=== PATIENT | female | born 1975 | race Caucasian/White ===

== ENCOUNTER 2018-02-10 19:42 | Emergency (ER) | payer MEDICAID, SELFPAY ==
[2018-02-10 19:42] VITALS: BP 124/97; PULSE 90; RESP 15; TEMP 36.6; BMI 44.6
--- NOTE | 2018-02-10 21:09 | CT_ITS ---
CT Abdomen And Pelvis W/O Contrast INDICATION: RT FLANK PAIN X 2 WEEKSHX:HTN,HYPOTHYROID,HYSTERECTOMY COMPARISON: None TECHNIQUE: Noncontrast axial CT examination of the abdomen and pelvis with coronal and sagittal reformatted images. Radiation dose optimization technique applied. FINDINGS: A 6 mm calcified granuloma is noted at the right lung base. Lung bases are otherwise clear. The heart size is normal. The liver is diffusely low in density compatible with fatty infiltration. The liver measures 18 cm in craniocaudal dimension. The gallbladder is nondistended. The spleen contains multiple calcified granulomas compatible with prior granulomatous disease. The kidneys are without evidence of nephrolithiasis or hydronephrosis. The bowel loops are nondistended. The appendix is unremarkable. The urinary bladder is decompressed. There is no evidence of free air or free fluid. The osseous structures demonstrate early degenerative changes. CT/Abdomen/Pelvis without Cont IMPRESSION: Diffuse fatty infiltration of the liver. Evidence of prior granulomatous disease. No evidence of urolithiasis or hydronephrosis. Normal appendix. at 2235 Reported and signed by: Shantal Tran MD Electronically Signed: Shantal Tran MD at 22:34 EDT Tel , Service support ,
[2018-02-10 21:36] LABS: Mucous, Urine 0 SEEN /hpf (<or=2+); Red Blood Cells-Urine 0 SEEN /hpf (0-5); Squamous Epithelial Cells - UA 0 SEEN /hpf (5-10)
[2018-02-10 21:37] LABS: Color, Urine Yellow (Yellow); Glucose, Dipstick Normal (Normal); Ketone-Dipstick Negative (Negative); Leukocyte Esterase-Dipstick 500 /ul (Negative); Nitrite-Dipstick Negative (Negative); Occult Blood-Urine 10 /ul (Negative); Protein-Dipstick 15 mg/dl (Negative); Specific Gravity, Urine 1.025 (1.002-1.030); Urine Bilirubin Dipstick Negative (Negative); Urine Clarity Sl. Cloudy (Clear); Urine Urobilinogen Normal (Normal)
[2018-02-10] MEDS: Ketorolac 30 MG/ML Syringe IV (21:39)
[2018-02-10] MEDS: 0.9% Normal Saline 1,000 ML 125 ML IV (21:39)
[2018-02-10] MEDS: Morphine 4 MG/ML Syringe IV (21:40)
[2018-02-10 21:44] LABS: Bacteria 1+ /hpf (None Seen); White Blood Cells 0-5 SEEN /hpf (0-5)
[2018-02-10 21:49] LABS: Absolute Lymphocyte Count 3.52 X10^3/ul (0.83-4.51); Absolute Neutrophil Count 7.1 X10^3/uL (2.0-7.7); Basophil# 0.02 X10^3/uL; Basophil% 0.2 % (0-1); Eosinophil# 0.18 X10^3/uL; Eosinophils% 1.5 % (0-5); Hematocrit 38.1 % (37-47); Hemoglobin 12.2 g/dl (12.0-15.0); Lymphocyte # 3.52 X10^3/ul (4.0); Lymphocyte % 30.3 % (19-41); Mean Corpuscular Volume 93.6 fL (81-99); Mean Platelet Vol. 9.9 fl (6.2-12.0); Monocyte# 0.75 X10^3/uL; Monocyte% 6.5 % (0-10); Neutrophil # 7.11 X10^3/uL (2.7-7.7); Neutrophil % 61.2 % (47-70); Platelet Count 338 K/mm3 (150-450); RBC Distribution Width CV 13.4 % (11.6-14.6); RBC Distribution Width SD 45.8 fl (35.1-43.9); Red Blood Count 4.07 M/mm3 (4.2-5.4); White Blood Count 11.6 K/mm3 (4.4-11.0)
[2018-02-10] MEDS: Ondansetron 4 MG/2 ML Vial IV (21:49)
[2018-02-10 21:50] VITALS: BP 120/74; PULSE 72; RESP 16; O2SAT 96
[2018-02-10 21:50] LABS: POSITIVE COUNT NO; POSITIVE DIFFERENTIAL NO; POSITIVE MORPHOLOGY NO
[2018-02-10 22:12] LABS: ALB/GLOB Ratio 0.8 RATIO (0.9-2.4); AST(SGOT) 37 U/L (15-37); Alanine Aminotransfer ALT/SGPT 40 U/L (13-56); Albumin, Serum 3.4 g/dL (3.2-5.0); Alkaline Phosphatase 65 U/L (45-117); Anion Gap 8 (5-15); BUN 16 mg/dL (7-18); BUN/Creat Ratio 12.1 RATIO (10-20); Calcium,Total 8.9 mg/dL (8.5-10.1); Chloride 103 mmol/L (98-107); Creatinine, Serum 1.32 mg/dL (0.55-1.02); EST Glomerular Filtration Rate 47 mL/min (>60); Est Glom Filt Rate - Afr Amer 57 mL/min (>60); Estimated Creatinine Clearance 42.75 ml/min; Globulin 4.5 g/dL (2.2-4.2); Glucose 95 mg/dL (74-106); Potassium 4.1 mmol/L (3.5-5.1); Protein, Total 7.9 g/dL (6.4-8.2); Sodium Level 139 mmol/L (136-145)
--- NOTE | 2018-02-10 23:15 | ED.VISSUMM ---
- ER Visit Summary Date of Service: 02/10/18 Chief Complaint: [Back pain ] History of Present Illness: The patient is a 42 F [back pain ?2 weeks. Patient states that it has been continuous and mostly right-sided over the area of her kidney. Patient rates her pain a 10 out of 10. Patient states that she was seen by her primary care physician for this but nothing was done about it. Patient does describe some mild dysuria at times. Food does not affect her pain at all. Patient has not had any injury to her back. Patient has not had any fevers. Patient denies cough. She denies recent travel or surgery. Patient denies any significant abdominal pain, nausea, vomiting, or diarrhea.] Physical Examination: [HEENT-PERRLA, EOMI. Cranial nerves II through XII grossly intact. TMs clear. Mucous membranes moist. No adenopathy. Cardiovascular-regular rate and rhythm without murmur or ectopy Lungs-clear to auscultation, chest wall stable without crepitus or subcu emphysema Abdomen-normoactive bowel sounds, soft, nontender, no rebound or rigidity, no peritoneal signs. Extremities-intact ?4, normal range of motion, normal pulses, atraumatic] Test Results: [CBC with differential obtained showed a slightly elevated white blood cell count of 11.6, hemoglobin 12, hematocrit 38, platelets 338. Chemistries unremarkable. Liver enzymes were normal. Urinalysis was positive for 500 leukocyte esterase 0-5 WBCs and +1 bacteria. Urine culture was sent. CT scan of the abdomen pelvis showed essentially nothing acute.] Emergency Department Course and Treatment: [Patient was medicated with morphine, Zofran, and Toradol. Patient was given a dose of Bactrim in the emergency department.] Treatment Plan: [Patient will be treated with Bactrim for 3 days and [place] for pain]. At this point the etiology of her back/flank pain is unclear. Patient really does not have any PE risk factors and the pain is not pleuritic therefore clinically my suspicion is that her symptoms are not due to PE. Disposition: [Discharged home in stable condition. Patient advised to follow-up with her primary care physician in 3-5 days.] Impression: [Back pain-etiology uncertain.] This note was generated with [employer] software. It may contain incorrect words, spelling, and punctuation that were not noted in review of the chart prior to signing ED Disposition - Plan for ED Patient: Chief Complaint: Flank Pain Referrals: Carlos Chris Chi, MD [Primary Care Provider] -
--- NOTE | 2018-02-10 23:18 | ED.DCSUM_ITS ---
- ER Visit Summary Date of Service: 02/10/18 Chief Complaint: [Back pain ] History of Present Illness: The patient is a 42 F [back pain ?2 weeks. Patient states that it has been continuous and mostly right-sided over the area of her kidney. Patient rates her pain a 10 out of 10. Patient states that she was seen by her primary care physician for this but nothing was done about it. Patient does describe some mild dysuria at times. Food does not affect her pain at all. Patient has not had any injury to her back. Patient has not had any fevers. Patient denies cough. She denies recent travel or surgery. Patient denies any significant abdominal pain, nausea, vomiting, or diarrhea.] Physical Examination: [HEENT-PERRLA, EOMI. Cranial nerves II through XII grossly intact. TMs clear. Mucous membranes moist. No adenopathy. Cardiovascular-regular rate and rhythm without murmur or ectopy Lungs-clear to auscultation, chest wall stable without crepitus or subcu emphysema Abdomen-normoactive bowel sounds, soft, nontender, no rebound or rigidity, no peritoneal signs. Extremities-intact ?4, normal range of motion, normal pulses, atraumatic] Test Results: [CBC with differential obtained showed a slightly elevated white blood cell count of 11.6, hemoglobin 12, hematocrit 38, platelets 338. Chemistries unremarkable. Liver enzymes were normal. Urinalysis was positive for 500 leukocyte esterase 0-5 WBCs and +1 bacteria. Urine culture was sent. CT scan of the abdomen pelvis showed essentially nothing acute.] Emergency Department Course and Treatment: [Patient was medicated with morphine , Zofran, and Toradol. Patient was given a dose of Bactrim in the emergency department.] Treatment Plan: [Patient will be treated with Bactrim for 3 days and [place] for pain]. At this point the etiology of her back/flank pain is unclear. Patient really does not have any PE risk factors and the pain is not pleuritic therefore clinically my suspicion is that her symptoms are not due to PE. Disposition: [Discharged home in stable condition. Patient advised to follow- up with her primary care physician in 3-5 days.] Impression: [Back pain-etiology uncertain.] This note was generated with [employer] software. It may contain incorrect words, spelling, and punctuation that were not noted in review of the chart prior to signing ED Disposition - Plan for ED Patient: Chief Complaint: Flank Pain Referrals: Carlos Chris Chi, MD [Primary Care Provider] -
--- NOTE | 2018-02-10 23:19 | DCINST.ED_ITS ---
ED Disposition - Plan for ED Patient: Chief Complaint: Flank Pain Instructions: ED Flank Pain Uncertain Cause Prescriptions: Hydrocodone/Acetaminophen [[place] 5-325 Tablet] 1 - 2 ea PO 4X/DAY PRN PRN 5 Days #20 tab PRN Reason: Pain Smz/Tmp Ds [Bactrim Ds] 1 tab PO BID #6 tab Referrals: Carlos Chris Chi, MD [Primary Care Provider] - 3-5 Days
[2018-02-10] MEDS: Smz/Tmp Ds Tablet 1 TABLET PO (23:32)
[2018-02-10] MEDS: HYDROcodone Bitartrate/Apap 5/325 Tablet PO (23:32)
[2018-02-10 23:34] VITALS: BP 120/69; PULSE 75; RESP 16; O2SAT 98
== END 2018-02-10 23:52 | disposition home or self-care (01) ==
LOC: ED 21:13
PROVIDERS: Emergency Provider Emergency Medicine; Family Provider Family Medicine Geriatric Medicine; PCP Family Medicine Geriatric Medicine
DX: M54.9 Dorsalgia, unspecified (principal); R30.0 Dysuria; I10 Essential (primary) hypertension; E03.9 Hypothyroidism, unspecified; Z90.710 Acquired absence of both cervix and uterus; Z79.899 Other long term (current) drug therapy
CPT/HCPCS: 74176; 80053; 81001; 85025; 87086; 87088; 96361; 96374; 96375; 99285; J7030; A4216

== ENCOUNTER 2018-06-04 09:02 | Emergency (ER) | payer MEDICAID, SELFPAY ==
[2018-06-04 09:04] VITALS: BP 145/94; PULSE 78; RESP 14; TEMP 36.9; O2SAT 97; BMI 42.8
--- NOTE | 2018-06-04 09:17 | ED.VISSUMM ---
- ER Visit Summary Date of Service: 06/04/18 Chief Complaint: Left upper eyelid swelling History of Present Illness: The patient is a 42 F who presents with left upper eyelid swelling that began this morning when she woke up. Patient denies any trauma or injury to the eye. Patient just noted some swelling and mild redness to her upper eyelid when she woke up today. Patient denies any foreign body sensation. Patient denies any pain with movement of her eyes. Patient denies any discharge, matting, crusting, or drainage. Patient denies any photophobia. Patient denies any visual changes. Patient denies any fevers or chills. Patient denies any other symptoms. Physical Examination: Vital signs are stable. Patient is afebrile. Patient is in no acute distress. Pupils are equal, round, and reactive to light bilaterally. Extraocular muscles are intact. There is no pain with extraocular movements. There is edema and mild erythema of the left upper eyelid. There is no foreign body noted. The left lower eyelid is normal. I do not see a hordeolum, however, I was unable to completely mariana the upper eyelid due to the swelling. Funduscopic examination was benign. Anterior chamber was clear. There is no hyphema. Neck is supple. Trachea is midline. There is no JVD noted. There is no lymphadenopathy noted. The remaining physical exam is within normal limits. Emergency Department Course and Treatment: Patient was given a prescription for Keflex. Patient was instructed to follow-up with her primary care physician in 3-5 days. Patient was instructed to continue warm compresses to the left upper eyelid. Patient was instructed on signs and symptoms which should prompt return to the emergency department. Patient understood and was agreeable with the plan. All questions were answered. Disposition: Discharge home Impression: Left upper eyelid cellulitis This note was generated with [employer] dictation software. It may contain incorrect words, spelling, and punctuation that were not noted in review of the chart prior to signing ED Disposition - Plan for ED Patient: Disposition: Home or Assisted Living Chief Complaint: Eye Problem Diagnosis: Cellulitis of left upper eyelid Prescriptions: Cephalexin [Keflex] 500 mg PO Q6 #40 cap Referrals: Carlos Chris Chi, MD [Primary Care Provider] -
--- NOTE | 2018-06-04 09:24 | ED.VISSUMM ---
- ER Visit Summary Date of Service: 06/04/18 Chief Complaint: [] History of Present Illness: The patient is a 42 F [] Physical Examination: [] Test Results: [] Emergency Department Course and Treatment: [] Treatment Plan: [] Disposition: [] Impression: [] This note was generated with [employer] dictation software. It may contain incorrect words, spelling, and punctuation that were not noted in review of the chart prior to signing ED Disposition - Plan for ED Patient: Chief Complaint: Eye Problem Diagnosis: Cellulitis of left upper eyelid Instructions: ED Cellulitis Naty Orbital Prescriptions: Cephalexin [Keflex] 500 mg PO Q6 #40 cap Referrals: Carlos Chris Chi, MD [Primary Care Provider] -
== END 2018-06-04 09:32 | disposition home or self-care (01) ==
PROVIDERS: Emergency Provider Emergency Medicine; Family Provider Family Medicine Geriatric Medicine; PCP Family Medicine Geriatric Medicine
DX: H00.034 Abscess of left upper eyelid (principal); J45.909 Unspecified asthma, uncomplicated; I10 Essential (primary) hypertension; E03.9 Hypothyroidism, unspecified; Z90.710 Acquired absence of both cervix and uterus; Z79.899 Other long term (current) drug therapy
CPT/HCPCS: 99282

== ENCOUNTER → 2018-06-14 11:44 | Outpatient (CLI) | payer MEDICAID, SELFPAY | PROVIDERS: Family Provider Family Medicine Geriatric Medicine; PCP Family Medicine Geriatric Medicine; Visit Provider Family Medicine Geriatric Medicine | DX: R68.83 Chills (without fever) (principal) | CPT/HCPCS: 87633 ==

== ENCOUNTER → 2018-08-28 11:11 | Outpatient (CLI) | payer MEDICAID, SELFPAY ==
[2018-08-28 13:05] LABS: Absolute Lymphocyte Count 2.83 X10^3/ul (0.83-4.51); Absolute Neutrophil Count 7.1 X10^3/uL (2.0-7.7); Basophil# 0.03 X10^3/uL; Basophil% 0.3 % (0-1); Eosinophils% 0.9 % (0-5); Hematocrit 43.9 % (37-47); Lymphocyte # 2.83 X10^3/ul (4.0); Lymphocyte % 26.6 % (19-41); Mean Corp Hgb Conc 31.9 g/gl (32-36); Mean Corpuscular Hgb 31.2 pg (27.0-32.0); Mean Corpuscular Volume 97.8 fL (81-99); Mean Platelet Vol. 11.3 fl (6.2-12.0); Monocyte# 0.55 X10^3/uL; Monocyte% 5.2 % (0-10); Neutrophil # 7.11 X10^3/uL (2.7-7.7); Neutrophil % 66.7 % (47-70); Platelet Count 314 K/mm3 (150-450); RBC Distribution Width CV 14.8 % (11.6-14.6); RBC Distribution Width SD 52.5 fl (35.1-43.9); Red Blood Count 4.49 M/mm3 (4.2-5.4); White Blood Count 10.7 K/mm3 (4.4-11.0)
[2018-08-28 13:06] LABS: POSITIVE COUNT NO; POSITIVE DIFFERENTIAL NO; POSITIVE MORPHOLOGY NO
[2018-08-28 13:07] LABS: Vitamin D,25 Hydroxy 15.9 ng/mL (29.95-100.01)
[2018-08-28 13:19] LABS: ALB/GLOB Ratio 0.8 RATIO (0.9-2.4); AST(SGOT) 35 U/L (15-37); Alanine Aminotransfer ALT/SGPT 40 U/L (13-56); Albumin, Serum 3.9 g/dL (3.2-5.0); Alkaline Phosphatase 83 U/L (45-117); Anion Gap 8 (5-15); BUN 15 mg/dL (7-18); BUN/Creat Ratio 10.5 RATIO (10-20); Calcium,Total 8.6 mg/dL (8.5-10.1); Chloride 102 mmol/L (98-107); Creatinine, Serum 1.43 mg/dL (0.55-1.02); EST Glomerular Filtration Rate 43 mL/min (>60); Est Glom Filt Rate - Afr Amer 52 mL/min (>60); Globulin 4.9 g/dL (2.2-4.2); Glucose 81 mg/dL (74-106); Potassium 4.3 mmol/L (3.5-5.1); Protein, Total 8.8 g/dL (6.4-8.2); Sodium Level 136 mmol/L (136-145)
== END ==
PROVIDERS: Family Provider Family Medicine Geriatric Medicine; PCP Family Medicine Geriatric Medicine; Visit Provider Family Medicine Geriatric Medicine
DX: I10 Essential (primary) hypertension (principal); E56.8 Deficiency of other vitamins
CPT/HCPCS: 36415; 80053; 82306; 84443; 85025

== ENCOUNTER → 2018-10-31 12:53 | Outpatient (CLI) | payer MEDICAID, SELFPAY ==
[2018-10-31 12:56] LABS: Thyroid Stim Hormone (TSH) 1.58 uIU/mL (0.358-3.74)
--- OUTSIDE RECORDS SUMMARY | 2019-01-02 17:03 | XMS RPT_ITS ---
:1975 Author Organization OHIP Care Team Providers Name Role Phone Aries, Carlos Chi Attending Unavailable Aries, Carlos Chi Referring Unavailable Aries, Carlos Chi Primary Care Unavailable Aries, Carlos Chi Primary Care Unavailable Ungur, Remus Attending Unavailable Aries, Carlos Chi Primary Care Unavailable Josue Nolasco Attending Unavailable Aries, Carlos Chi Attending Unavailable Aries, Carlos Chi Referring Unavailable Aries, Carlos Chi Primary Care Unavailable Aries, Carlos Chi Attending Unavailable Aries, Carlos Chi Primary Care Unavailable PROBLEMS PROBLEMS DATE TYPE CONDITION / CODE ATTENDING STATUS SOURCE 02/10/2018 Unknown M54.9 - Ungur, Remus Active [facility] Dorsalgia, Community unspecified / Hospital M54.9(ICD-10) Repository PROCEDURES PROCEDURES No Procedure Records FoundRESULTS RESULTS THYROID STIM HORMONE Collected: 10/31/2018 Status: F Source: JOV[place] (TSH) 10:57 AM [facility] HOSPITAL REPOSITORY TYPE CODE TESTS RESULT OUT OF RANGE REFERENCE UNITS LAB L501.9520 0.358-3.74 uIU/mL Normal TSH 1.58 Performed By: #### L501.9520 #### [facility] [address] [place], [address] THYROID STIM HORMONE Collected: 10/31/2018 Status: F Source: [place] (TSH) 10:57 AM [facility] REPOSITORY TYPE CODE TESTS RESULT OUT OF RANGE REFERENCE UNITS LAB L501.9520 0.358-3.74 uIU/mL Normal TSH 1.58 Performed By: #### L501.9520 #### [facility] [address] [place], [address] CBC W/DIFF, AUTOMATED Collected: 08/28/2018 Status: F Source: [place] 11:15 AM [facility] REPOSITORY TYPE CODE TESTS RESULT OUT OF RANGE REFERENCE UNITS LAB L100.1000 4.4-11.0 K/mm3 Normal WBC 10.7 LAB L100.1200 4.2-5.4 M/mm3 Normal RBC 4.49 LAB L100.1300 12.0-15.0 g/dl Normal HGB 14.0 LAB L100.1400 37-47 % Normal HCT 43.9 LAB L100.1500 81-99 fL Normal MCV 97.8 LAB L100.1600 27.0-32.0 pg Normal MCH 31.2 LAB L100.1700 32-36 g/gl Low MCHC 31.9 LAB L100.1810 11.6-14.6 % High RDW CV 14.8 LAB L100.1820 35.1-43.9 fl High RDW SD 52.5 LAB L100.1900 150-450 K/mm3 Normal PLT 314 LAB L100.2000 6.2-12.0 fl Normal MPV 11.3 LAB L100.2100 47-70 % Normal NEUT% 66.7 LAB L100.2200 19-41 % Normal LY% 26.6 LAB L100.2300 0-10 % Normal MONO% 5.2 LAB L100.2400 0-5 % Normal EO% 0.9 LAB L100.2500 0-1 % Normal BASO% 0.3 LAB L100.2550 0.0-0.9 % Normal IM GRAN % 0.300 Result Comment: IG% - Immature Granulocytes (promyelocytes, myelocytes and metamyelocytes) > 1% indicates that a LEFT SHIFT is Present. LAB L100.2620 2.0-7.7 X10 3/uL Normal Absolute Neut 7.1 LAB L100.2720 0.83-4.51 X10 3/ul Normal Absolute Lymph 2.83 Performed By: #### L100.0100 #### [facility] [address] [place], [place], [address] VITAMIN D,25 HYDROXY Collected: 08/28/2018 Status: F Source: [place] 11:15 AM [facility] REPOSITORY TYPE CODE TESTS RESULT OUT OF REFERENCE UNITS RANGE LAB L506.1000 29.95-100.01 ng/mL Low Vitamin D 15.9 25-OH Result Comment: Vitamin D 25(OH) Status Range Deficiency <20 ng/mL (50nmol/L) Insuffciency 20 - 30 ng/mL (50 - 75 nmol/L) Sufficiency 30 - 100 ng/mL (75 - 250 nmol/L) Toxicity >100 ng/mL (>250 nmol/L) Performed By: #### L506.1000 #### [facility] [address] [facility] [address] [place], [place], [address] COMPREHENSIVE METABOLIC Collected: 08/28/2018 Status: F Source: [place] [facility] 11:15 AM [facility] REPOSITORY TYPE CODE TESTS RESULT OUT OF RANGE REFERENCE UNITS LAB L501.0100 74-106 mg/dL Normal GLU 81 Result Comment: Please note revised GLUCOSE reference range effective 2017. LAB L501.1000 7-18 mg/dL Normal BUN 15 LAB L501.1100 0.55-1.02 mg/dL High CREAT,SERUM 1.43 Result Comment: The validity of the calculated GFR AND GFRAA in patients over 70 years has not been determined. Clinical correlation is essential. LAB L501.1110 >60 mL/min Low EST GFR 43 Result Comment: Non- GFR Calc LAB L501.1115 >60 mL/min Low EST GFR - AA 52 Result Comment: GFR Calc LAB L501.1300 10-20 RATIO Normal BUN/CRE 10.5 LAB L501.1500 6.4-8.2 g/dL High T PROT 8.8 LAB L501.1800 3.2-5.0 g/dL Normal ALB 3.9 LAB L501.1950 2.2-4.2 g/dL High GLOB 4.9 LAB L501.2000 0.9-2.4 RATIO Low A/G 0.8 LAB L501.2200 8.5-10.1 mg/dL CA Normal 8.6 LAB L501.4100 15-37 U/L Normal AST 35 LAB L501.4305 45-117 U/L Normal ALK P 83 LAB L501.4405 13-56 U/L Normal ALT 40 LAB L501.4600 0.20-1.00 mg/dL High T BILI 1.10 LAB L501.5300 136-145 mmol/L NA Normal 136 LAB L501.5600 3.5-5.1 mmol/L K Normal 4.3 LAB L501.5900 98-107 mmol/L CL Normal 102 LAB L501.6100 21.0-32.0 mmol/L Normal CO2 26.0 LAB L501.6200 5-15 Normal GAP 8 Performed By: #### L500.4050, L501.9520 #### [facility] [address] [place], [place], [address] THYROID STIM HORMONE Collected: 08/28/2018 Status: F Source: [place] (TSH) 11:15 AM [facility] REPOSITORY TYPE CODE TESTS RESULT OUT OF RANGE REFERENCE UNITS LAB L501.9520 0.358-3.74 uIU/mL High TSH 93.20 Performed By: #### L500.4050, L501.9520 #### [facility] [address] [place], [address] Observed: 06/14/2018 Status: F Source: [place] RESPIRATORY PANEL 11:54 AM [facility] MOLECULAR REPOSITORY RP PANEL Normal Reference Range = Not Detected ADENOVIRUS Not Detected HUMAN METAPHNEUMO Not Detected INFLUENZA A Not Detected INFLUENZA A (SUBTYPE H1) Not Detected INFLUENZA A (SUBTYPE H3) Not Detected INFLUENZA B Not Detected PARAINFLUENZA 1 Not Detected PARAINFLUENZA 2 Not Detected PARAINFLUENZA 3 Not Detected PARAINFLUENZA 4 Not Detected RHINOVIRUS Not Detected RSV A Not Detected RSV B Not Detected NAAT METHOD Testing was performed using nucleic acid amplification Performed By: #### M100.638 #### [facility] [address] [place], [address] EMERGENCY DEPARTMENT Observed: 06/04/2018 Status: F Source: [place] SUMMARY 9:26 AM [facility] REPOSITORY [facility] Medical Records Department [address] [place] [address] Emergency Department Summary 06/04/1824 MR#: [id number] Acct: [id number] Name: ROMAIN BURGESS Rep #: [id number] : 1975 42 From: Josue Nolasco DO PCP: Carlos Chris MD, Chi Status: REG ER - ER Visit Summary Date of Service: 06/04/18 Chief Complaint: [] History of Present Illness: The patient is a 42 F [] Physical Examination: [] Test Results: [] Emergency Department Course and Treatment: [] Treatment Plan: [] Disposition: [] Impression: [] This note was generated with BitPoster dictation software. It may contain incorrect words, spelling, and punctuation that were not noted in review of the chart prior to signing ED Disposition - Plan for ED Patient: Chief Complaint: Eye Problem Diagnosis: Cellulitis of left upper eyelid Instructions: ED Cellulitis Naty Orbital Prescriptions: Cephalexin [Keflex] 500 mg PO Q6 #40 cap Referrals: Carlos Chris Chi, MD [Primary Care Provider] - What to do if you have Problems For any increased pain, shortness of breath, bleeding, nausea or vomiting, chest pain, or any unexpected problems, contact your Primary Care Provider. Call [facility] ([phone]) or report to the closest Emergency Room. Call 911 if necessary. 06/04/18925 <Electronically signed by Josue Nolasco DO> Date Josue Nolasco DO Cosigner Signature (If Indicated): Date CC: Carlos Chris MD EMERGENCY DEPARTMENT Observed: 06/04/2018 Status: F Source: [place] SUMMARY 9:23 AM [facility] REPOSITORY [facility] Medical Records Department [address] [place] [address] Emergency Department Summary 06/04/18 0917 MR#: [id number] Acct: [id number] Name: ROMAIN BURGESS Rep #: [id number] : 1975 42 From: Josue Nolasco DO PCP: Carlos Chris MD, Chi Status: PRE ER - ER Visit Summary Date of Service: 06/04/18 Chief Complaint: Left upper eyelid swelling History of Present Illness: The patient is a 42 F who presents with left upper eyelid swelling that began this morning when she woke up. Patient denies any trauma or injury to the eye. Patient just noted some swelling and mild redness to her upper eyelid when she woke up today. Patient denies any foreign body sensation. Patient denies any pain with movement of her eyes. Patient denies any discharge, matting, crusting, or drainage. Patient denies any photophobia. Patient denies any visual changes. Patient denies any fevers or chills. Patient denies any other symptoms. Physical Examination: Vital signs are stable. Patient is afebrile. Patient is in no acute distress. Pupils are equal, round, and reactive to light bilaterally. Extraocular muscles are intact. There is no pain with extraocular movements. There is edema and mild erythema of the left upper eyelid. There is no foreign body noted. The left lower eyelid is normal. I do not see a hordeolum, however, I was unable to completely mariana the upper eyelid due to the swelling. Funduscopic examination was benign. Anterior chamber was clear. There is no hyphema. Neck is supple. Trachea is midline. There is no JVD noted. There is no lymphadenopathy noted. The remaining physical exam is within normal limits. Emergency Department Course and Treatment: Patient was given a prescription for Keflex. Patient was instructed to follow-up with her primary care physician in 3-5 days. Patient was instructed to continue warm compresses to the left upper eyelid. Patient was instructed on signs and symptoms which should prompt return to the emergency department. Patient understood and was agreeable with the plan. All questions were answered. Disposition: Discharge home Impression: Left upper eyelid cellulitis This note was generated with BitPoster dictation software. It may contain incorrect words, spelling, and punctuation that were not noted in review of the chart prior to signing ED Disposition - Plan for ED Patient: Disposition: Home or Assisted Living Chief Complaint: Eye Problem Diagnosis: Cellulitis of left upper eyelid Prescriptions: Cephalexin [Keflex] 500 mg PO Q6 #40 cap Referrals: Carlos Chris Chi, MD [Primary Care Provider] - What to do if you have Problems For any increased pain, shortness of breath, bleeding, nausea or vomiting, chest pain, or any unexpected problems, contact your Primary Care Provider. Call [facility] ([phone]) or report to the closest Emergency Room. Call 911 if necessary. 06/04/18 0923 <Electronically signed by Josue Nolasco DO> Date Josue Nolasco DO Cosigner Signature (If Indicated): Date CC: Carlos Chris MD DISCHARGE INSTRUCTION Observed: 02/10/2018 Status: F Source: [place] 11:19 PM [facility] REPOSITORY [facility] Medical Records Department [address] [place] [address] Discharge Instruction 02/10/18 2318 MR#: [id number] Acct: [id number] Name: ROMAIN BURGESS Rep #: [id number] : 1975 42 From: Esvin Cardoza DO PCP: Carlos Chris MD, Chi Status: REG ER ED Disposition - Plan for ED Patient: Chief Complaint: Flank Pain Instructions: ED Flank Pain Uncertain Cause Prescriptions: Hydrocodone/Acetaminophen [[place] 5-325 Tablet] 1 - 2 ea PO 4X/DAY PRN PRN 5 Days #20 tab PRN Reason: Pain Smz/Tmp Ds [Bactrim Ds] 1 tab PO BID #6 tab Referrals: Carlso Chris Chi, MD [Primary Care Provider] - 3-5 Days What to do if you have Problems For any increased pain, shortness of breath, bleeding, nausea or vomiting, chest pain, or any unexpected problems, contact your Primary Care Provider. Call [facility] ([phone]) or report to the closest Emergency Room. Call 911 if necessary. 02/10/18 2319 <Electronically signed by Esvin Cardoza DO> Date Esvin Cardoza DO Cosigner Signature (If Indicated): Date CC: Carlos Chris MD EMERGENCY DEPARTMENT Observed: 02/10/2018 Status: F Source: [place] SUMMARY 11:18 PM [facility] REPOSITORY [facility] Medical Records Department [address] [place] [address] Emergency Department Summary 02/10/18 2315 MR#: [id number] Acct: [id number] Name: ROMAIN BURGESS Rep #: [id number] : 1975 42 From: Esvin Cardoza DO PCP: Carlos Chris MD, Chi Status: REG ER - ER Visit Summary Date of Service: 02/10/18 Chief Complaint: [Back pain ] History of Present Illness: The patient is a 42 F [back pain 2 weeks. Patient states that it has been continuous and mostly right-sided over the area of her kidney. Patient rates her pain a 10 out of 10. Patient states that she was seen by her primary care physician for this but nothing was done about it. Patient does describe some mild dysuria at times. Food does not affect her pain at all. Patient has not had any injury to her back. Patient has not had any fevers. Patient denies cough. She denies recent travel or surgery. Patient denies any significant abdominal pain, nausea, vomiting, or diarrhea.] Physical Examination: [HEENT-PERRLA, EOMI. Cranial nerves II through XII grossly intact. TMs clear. Mucous membranes moist. No adenopathy. Cardiovascular-regular rate and rhythm without murmur or ectopy Lungs-clear to auscultation, chest wall stable without crepitus or subcu emphysema Abdomen-normoactive bowel sounds, soft, nontender, no rebound or rigidity, no peritoneal signs. Extremities-intact 4, normal range of motion, normal pulses, atraumatic] Test Results: [CBC with differential obtained showed a slightly elevated white blood cell count of 11.6, hemoglobin 12, hematocrit 38, platelets 338. Chemistries unremarkable. Liver enzymes were normal. Urinalysis was positive for 500 leukocyte esterase 0-5 WBCs and +1 bacteria. Urine culture was sent. CT scan of the abdomen pelvis showed essentially nothing acute.] Emergency Department Course and Treatment: [Patient was medicated with morphine, Zofran, and Toradol. Patient was given a dose of Bactrim in the emergency department.] Treatment Plan: [Patient will be treated with Bactrim for 3 days and [place] for pain]. At this point the etiology of her back/flank pain is unclear. Patient really does not have any PE risk factors and the pain is not pleuritic therefore clinically my suspicion is that her symptoms are not due to PE. Disposition: [Discharged home in stable condition. Patient advised to follow-up with her primary care physician in 3-5 days.] Impression: [Back pain-etiology uncertain.] This note was generated with BitPoster dictation software. It may contain incorrect words, spelling, and punctuation that were not noted in review of the chart prior to signing ED Disposition - Plan for ED Patient: Chief Complaint: Flank Pain Referrals: Carlos Chris Chi, MD [Primary Care Provider] - What to do if you have Problems For any increased pain, shortness of breath, bleeding, nausea or vomiting, chest pain, or any unexpected problems, contact your Primary Care Provider. Call [employer] [facility] ([phone]) or report to the closest Emergency Room. Call 911 if necessary. 02/10/18 8963 <Electronically signed by Esvin Cardoza DO> Date Remus Ungur DO Cosigner Signature (If Indicated): Date CC: Carlos Chris MD CBC W/DIFF, AUTOMATED Collected: 02/10/2018 Status: F Source: [place] 9:25 PM [facility] REPOSITORY TYPE CODE TESTS RESULT OUT OF RANGE REFERENCE UNITS LAB L100.1000 4.4-11.0 K/mm3 High WBC 11.6 LAB L100.1200 4.2-5.4 M/mm3 Low RBC 4.07 LAB L100.1300 12.0-15.0 g/dl Normal HGB 12.2 LAB L100.1400 37-47 % Normal HCT 38.1 LAB L100.1500 81-99 fL Normal MCV 93.6 LAB L100.1600 27.0-32.0 pg Normal MCH 30.0 LAB L100.1700 32-36 g/gl Normal MCHC 32.0 LAB L100.1810 11.6-14.6 % Normal RDW CV 13.4 LAB L100.1820 35.1-43.9 fl High RDW SD 45.8 LAB L100.1900 150-450 K/mm3 Normal PLT 338 LAB L100.2000 6.2-12.0 fl Normal MPV 9.9 LAB L100.2100 47-70 % Normal NEUT% 61.2 LAB L100.2200 19-41 % Normal LY% 30.3 LAB L100.2300 0-10 % Normal MONO% 6.5 LAB L100.2400 0-5 % Normal EO% 1.5 LAB L100.2500 0-1 % Normal BASO% 0.2 LAB L100.2550 0.0-0.9 % Normal IM GRAN % 0.300 Result Comment: IG% - Immature Granulocytes (promyelocytes, myelocytes and metamyelocytes) > 1% indicates that a LEFT SHIFT is Present. LAB L100.2620 2.0-7.7 X10 3/uL Normal Absolute Neut 7.1 LAB L100.2720 0.83-4.51 X10 3/ul Normal Absolute Lymph 3.52 Performed By: #### L100.0100 #### [facility] [address] [place], [address] COMPREHENSIVE METABOLIC Collected: 02/10/2018 Status: F Source: JOV[place] MILLER 9:25 PM [facility] REPOSITORY TYPE CODE TESTS RESULT OUT OF RANGE REFERENCE UNITS LAB L501.0100 74-106 mg/dL Normal GLU 95 Result Comment: Please note revised GLUCOSE reference range effective 2017. LAB L501.1000 7-18 mg/dL Normal BUN 16 LAB L501.1100 0.55-1.02 mg/dL High CREAT,SERUM 1.32 Result Comment: The validity of the calculated GFR AND GFRAA in patients over 70 years has not been determined. Clinical correlation is essential. LAB L501.1110 >60 mL/min Low EST GFR 47 Result Comment: Non- GFR Calc LAB L501.1115 >60 mL/min Low EST GFR - AA 57 Result Comment: GFR Calc LAB L501.1255 ml/min Normal Estimated CRCL 42.75 LAB L501.1300 10-20 RATIO Normal BUN/CRE 12.1 LAB L501.1500 6.4-8. g/dL Normal 2 T PROT 7.9 LAB L501.1800 3.2-5. g/dL Normal 0 ALB 3.4 LAB L501.1950 2.2-4. g/dL High 2 GLOB 4.5 LAB L501.2000 0.9-2. RATIO Low 4 A/G 0.8 LAB L501.2200 8.5-10 mg/dL Normal .1 CA 8.9 LAB L501.4100 15-37 U/L Normal AST 37 LAB L501.4305 45-117 U/L Normal ALK P 65 LAB L501.4405 13-56 U/L Normal ALT 40 LAB L501.4600 0.20-1 mg/dL Normal .00 T BILI 0.50 LAB L501.5300 136-14 mmol/L Normal 5 NA 139 LAB L501.5600 3.5-5. mmol/L Normal 1 K 4.1 LAB L501.5900 98-107 mmol/L Normal CL 103 LAB L501.6100 21.0-3 mmol/L Normal 2.0 CO2 28.0 LAB L501.6200 5-15 Normal GAP 8 Performed By: #### L500.4050 #### [facility] [address] [place], [address] ABDOMEN/PELVIS WITHOUT Observed: 02/10/2018 Status: F Source: [place]OV[place] CONT 9:11 PM [facility] HOSPITAL REPOSITORY [facility] Imaging Services [address] [place] [address] Abdomen/Pelvis without Cont MR#: [id number] Acct: [id number] Name: ROMAIN BURGESS Rep #: [id number] : 1975 F 42 From: Shantal Tran MD PCP: Aries MENDEZ,Carlos Chi Status: REG ER Study: Abdomen/Pelvis without Cont Date of Exam: 02/10/18 Exam# [id number] Ordering Dr: Esvin Cardoza DO CT Abdomen And Pelvis W/O Contrast INDICATION: RT FLANK PAIN X 2 WEEKSHX:HTN,HYPOTHYROID,HYSTERECTOMY COMPARISON: None TECHNIQUE: Noncontrast axial CT examination of the abdomen and pelvis with coronal and sagittal reformatted images. Radiation dose optimization technique applied. FINDINGS: A 6 mm calcified granuloma is noted at the right lung base. Lung bases are otherwise clear. The heart size is normal. The liver is diffusely low in density compatible with fatty infiltration. The liver measures 18 cm in craniocaudal dimension. The gallbladder is nondistended. The spleen contains multiple calcified granulomas compatible with prior granulomatous disease. The kidneys are without evidence of nephrolithiasis or hydronephrosis. The bowel loops are nondistended. The appendix is unremarkable. The urinary bladder is decompressed. There is no evidence of free air or free fluid. The osseous structures demonstrate early degenerative changes. CT/Abdomen/Pelvis without Cont IMPRESSION: Diffuse fatty infiltration of the liver. Evidence of prior granulomatous disease. No evidence of urolithiasis or hydronephrosis. Normal appendix. at 3281 Reported and signed by: Shantal Tran MD Electronically Signed: Shantal Tran MD at 22:34 EDT Tel , Service support , CC: Esvin Cardoza DO; Carlos Chris MD Videogame Designer: Signed URINALYSIS, COMPLETE Collected: 02/10/2018 Status: F Source: [place] 8:35 PM [facility] REPOSITORY Order Comment: How was Urine Obtained? CLEAN CATCH TYPE CODE TESTS RESULT OUT OF RANGE REFERENCE UNITS LAB L400.3000 Yellow COLOR Normal Yellow LAB L400.3050 Clear Normal CLARITY Sl. Cloudy LAB L400.3200 Normal mg/dl Normal GLUCOSE, UR Normal LAB L400.3300 Negative mg/dL Normal BILIRUBIN URINE Negative LAB L400.3400 Negative mg/dl Normal KETONE UR Negative LAB L400.3465 1.002-1.030 Normal SP.GR. DIPSTX 1.025 LAB L400.3550 5.0 - 8.0 pH UR Normal 6.0 LAB L400.3600 Negative mg/dl High PROT 15 DIPSTX LAB L400.3700 Normal mg/dl Normal UROBILI Normal LAB L400.3750 Negative Normal NITRITE UR Negative LAB L400.3780 Negative /ul High 10 OCCULT BLOOD-UR LAB L400.3800 Negative /ul High LEUK ESTERASE 500 LAB L400.4050 0-5 /hpf WBC Normal 0-5 SEEN LAB L400.4100 0-5 /hpf 0 Normal RBC-UA SEEN LAB L400.4150 5-10 /hpf SQUAM 0 Normal EPI SEEN LAB L400.4300 None Seen /hpf 1+ Normal BACTERIA LAB L400.4350 <or=2+ /hpf 0 Normal MUCUS, URINE SEEN Performed By: #### L400.0001 #### [facility] [address] [place], [place], [address] Observed: 02/10/2018 Status: F Source: [place]OV[place] CULTURE, URINE 8:35 PM [facility] REPOSITORY Urine Culture ORGANISM 1: Mixed Gram Positive Organisms Nicholls Count 25,000-50,000 MIX CULTURE Mixed contaminants. Submit a new specimen if indicated. Performed By: #### M100.0650 #### [facility] [address] [place], [place], [address] ALLERGIES ALLERGIES DATE TYPE / CODE NAME / CODE REACTION SEVERITY SOURCE 06/04/2018 Drug lithium/F006 Unknown Unknown [place] [facility] Allergy/4160 [id number]([facility] 23623(SNOMED M) Repository CT) 06/04/2018 Drug codeine/F006 Unknown Unknown [place] [facility] Allergy/4160 [id number]([facility] 25432(SNOMED M) Repository CT) 06/04/2018 Drug citalopram/F Unknown Unknown [place] [facility] Allergy/4160 [id number]([facility] 82386(SNOMED NORM) Repository CT) ENCOUNTERS ENCOUNTERS ADMIT/DISCHARGE ACCOUNT ADMITTING ENCOUNTER LOCATION SOURCE NUMBER CLASS 10/31/2018 [id number] Ambulatory [place] [facility] 9 [facility] ing:OPBI Repository 08/28/2018 [id number] Ambulatory [place] [facility] ing:POLAB3 Repository 06/14/2018 [id number] Ambulatory [place] 1 [facility] ing:PSN Repository 06/04/2018/ [id number] Emergency [place] [facility] ing:ED Repository 02/10/2018/ [id number] Emergency [place] 8 9 [facility] ing:ED Repository PAYERS PAYERS ENCOUNTER GUARANTOR PAYER SUBSCRIBER SOURCE 10/31/2018 ROMAIN Maddoxoster [id number] Insurance:CARESOURCEP BURNSDOB: [facility] [place]: [id number] [id number] Repository 31465Myc: (330) Date:2018-08-28 [phone] () HQV 4509ATTN: [place] [address]HO: 10/31/2018 Secondary NOT GIVENUNK [place] Insurance:SELF PAY [facility] Number: Effective Repository Date:2018-08-28 08/28/2018 ROMAIN Dick Jov[place] [id number] [place] Insurance:CARESOURCEP BURNSDOB: [facility] Number: [id number] [place], [place] [id number] Repository 38[address]Uzw: (330) Date:2018-08-28P O [phone] (HP) [address]ATTN: [place] [address]GB: 08/28/2018 Secondary NOT GIVENUNK [place] Insurance:SELF PAY [facility] Number: Effective Repository Date:2018-08-28 06/14/2018 Romain L Primary Romain L [place] [id number] Insurance:CARESOURCEP UherDOB: [facility] [place] Maylin mosquera [place]: [id number] [id number] Repository [address]Mlv: (330) Date:2018-06-14P O [phone] (HP) [address]ATTN: [place] [address]HM: 06/14/2018 Secondary NOT GIVENUNK [place] Insurance:SELF PAY [facility] Number: Effective Repository Date:2018-06-14 06/04/2018 Romain L Primary Romain L [place] [id number] Insurance:CARESOURCEP UherDOB: [facility], [facility] Maylin gautamryne Number: [id number] [id number] Repository [address]Dnl: ([phone]) Date:2018-06-04P O [phone] () [address]ATTN: [place] [address]LB: 06/04/2018 Secondary NOT GIVENUNK [place] Insurance:SELF PAY [facility] Number: Effective Repository Date:2018-06-04 02/10/2018 Romain L Primary Romain L [place] [id number] Insurance:CARESOURCEP UherDOB: [facility], [facility] Maylin mosquera Number: [id number] [id number] Repository [address]Hfi: (330) Date:2018-02-10P O [phone] (HP) [address]ATTN[place] [address]NE: 02/10/2018 Secondary NOT GIVENUNK Jovon Insurance:SELF PAY [facility] Number: Effective Repository Date:2018-02-10
== END ==
PROVIDERS: Family Provider Family Medicine Geriatric Medicine; PCP Family Medicine Geriatric Medicine; Referring Provider Family Medicine Geriatric Medicine; Visit Provider Family Medicine Geriatric Medicine
DX: E03.9 Hypothyroidism, unspecified (principal)
CPT/HCPCS: 36415; 84443

== ENCOUNTER 2018-12-09 12:32 | Emergency (ER) | payer MEDICAID, SELFPAY ==
[2018-12-09 12:33] VITALS: BP 123/86; PULSE 84; RESP 17; TEMP 36.8; O2SAT 98; BMI 40.4
--- NOTE | 2018-12-09 13:13 | ED.VISSUMM ---
- ER Visit Summary Date of Service: 12/09/18 Chief Complaint: Facial abscess History of Present Illness: The patient is a 43 F presenting with abscess to right side of face. This started 3 days ago. No drainage at home. No fever. She was concerned due to increasing redness today. Denies other complaints. Physical Examination: Vitals are stable. Patient is afebrile. Alert no acute distress. HEENT exam 2 cm indurated abscess to the right maxilla. No fluctuance. Mild surrounding erythema. Neck is supple. Lungs are clear and equal bilaterally. Heart is regular rate and rhythm. Extremities are unremarkable. Skin is warm and dry. No focal neurologic deficit. Remainder of exam is unremarkable. Emergency Department Course and Treatment: Abscess is not amenable to drainage at this time. Patient is given clindamycin, [place]. She is advised to use warm compresses. Advised to watch for worsening signs of infection. Advised to follow-up with primary care physician. Advised return to ED if worsening complaints. Disposition: Discharge home Impression: Facial abscess This note was generated with [employer] dictation software. It may contain incorrect words, spelling, and punctuation that were not noted in review of the chart prior to signing ED Disposition - Plan for ED Patient: Instructions: ED Abscess IandD Prescriptions: Hydrocodone Bitart/Apap 5-325 [[place] 5MG-325MG] 1 tablet PO Q6H PRN PRN 3 Days #6 tablet PRN Reason: Pain Clindamycin [Cleocin] 300 mg PO 4X/DAY #80 capsule Referrals: Carlos Chris Chi, MD [Primary Care Provider] -
--- NOTE | 2018-12-09 13:16 | ED.DCSUM_ITS ---
- ER Visit Summary Date of Service: 12/09/18 Chief Complaint: Facial abscess History of Present Illness: The patient is a 43 F presenting with abscess to right side of face. This started 3 days ago. No drainage at home. No fever. She was concerned due to increasing redness today. Denies other complaints. Physical Examination: Vitals are stable. Patient is afebrile. Alert no acute distress. HEENT exam 2 cm indurated abscess to the right maxilla. No fluctuance. Mild surrounding erythema. Neck is supple. Lungs are clear and equal bilaterally. Heart is regular rate and rhythm. Extremities are unremarkable. Skin is warm and dry. No focal neurologic deficit. Remainder of exam is unremarkable. Emergency Department Course and Treatment: Abscess is not amenable to drainage at this time. Patient is given clindamycin, [place]. She is advised to use warm compresses. Advised to watch for worsening signs of infection. Advised to follow-up with primary care physician. Advised return to ED if worsening complaints. Disposition: Discharge home Impression: Facial abscess This note was generated with [employer] dictation software. It may contain incorrect words, spelling, and punctuation that were not noted in review of the chart prior to signing ED Disposition - Plan for ED Patient: Instructions: ED Abscess IandD Prescriptions: Hydrocodone Bitart/Apap 5-325 [[place] 5MG-325MG] 1 tablet PO Q6H PRN PRN 3 Days #6 tablet PRN Reason: Pain Clindamycin [Cleocin] 300 mg PO 4X/DAY #80 capsule Referrals: Carlos Chris Chi, MD [Primary Care Provider] -
[2018-12-09 14:28] VITALS: BP 128/87; PULSE 66; RESP 16; O2SAT 97
== END 2018-12-09 14:29 | disposition home or self-care (01) ==
LOC: ED 13:36
PROVIDERS: Emergency Provider Emergency Medicine; Family Provider Family Medicine Geriatric Medicine; PCP Family Medicine Geriatric Medicine
DX: L02.01 Cutaneous abscess of face (principal); I10 Essential (primary) hypertension
CPT/HCPCS: 96365; 99284; J7030; A4216

== ENCOUNTER → 2018-12-21 07:00 | Outpatient (CLI) | payer MEDICAID, SELFPAY ==
[2018-12-09 12:33] VITALS: BMI 40.4
--- NOTE | 2018-12-21 07:02 | BI_ITS ---
MAMMOGRAPHY - BILATERAL SCREENING REASON FOR EXAM: Female, 43 years old. Routine annual screening examination. PERTINENT HISTORY: Mother with breast cancer. TECHNIQUE: Digital bilateral breast charisse (3D mammographic acquisition) in the CC and MLO projections. 2-D mediolateral oblique (MLO) and craniocaudad (CC) views of both breasts were obtained. CAD: Full Field Digital Mammography with Computer Added Detection was performed. COMPARISON: None. Baseline examination. FINDINGS: Breast Composition: There are scattered areas of fibroglandular density. There are no dominant masses or suspicious calcifications. Benign-appearing axillary lymph nodes. No other significant abnormalities are identified. BI/SCREENING MAMM (CAD), BILAT IMPRESSION: Negative screening mammogram. Yearly followup mammogram recommended. (A) ASSESSMENT CATEGORY: BIRADS Category 2: Benign. A letter regarding these results will be sent to the patient by the facility within 30 days. Approximately 10% of breast cancers are not detected by mammography. A normal mammogram should not delay biopsy of a clinically suspicious abnormality. [id number] Electronically Signed: Carlos Agarwal, at 10:14 EDT , Service support ,
== END ==
PROVIDERS: Family Provider Family Medicine Geriatric Medicine; PCP Family Medicine Geriatric Medicine; Referring Provider Family Medicine Geriatric Medicine; Visit Provider Family Medicine Geriatric Medicine
DX: Z12.31 Encounter for screening mammogram for malignant neoplasm of breast (principal)
CPT/HCPCS: 77063; 77067

== ENCOUNTER → 2018-12-22 11:54 | Outpatient (CLI) | payer MEDICAID, SELFPAY ==
[2018-12-09 12:33] VITALS: BMI 40.4
== END ==
PROVIDERS: Family Provider Family Medicine Geriatric Medicine; PCP Family Medicine Geriatric Medicine; Referring Provider Family Medicine Geriatric Medicine; Visit Provider Family Medicine Geriatric Medicine
DX: R68.83 Chills (without fever) (principal)
CPT/HCPCS: 87633

== ENCOUNTER 2019-01-21 19:26 | Inpatient (IN) | payer MEDICAID, SELFPAY ==
[2019-01-21 19:27] VITALS: BP 137/95; PULSE 92; RESP 17; TEMP 36.1; O2SAT 98; BMI 39.6
[2019-01-21 20:02] LABS: Absolute Lymphocyte Count 3.94 X10^3/ul (0.83-4.51); Absolute Neutrophil Count 8.2 X10^3/uL (2.0-7.7); Basophil# 0.04 X10^3/uL; Basophil% 0.3 % (0-1); Eosinophil# 0.25 X10^3/uL; Eosinophils% 1.9 % (0-5); Hematocrit 42.7 % (37-47); Hemoglobin 14.3 g/dl (12.0-15.0); Lymphocyte # 3.94 X10^3/ul (4.0); Lymphocyte % 29.6 % (19-41); Mean Corp Hgb Conc 33.5 g/gl (32-36); Mean Corpuscular Hgb 30.3 pg (27.0-32.0); Mean Corpuscular Volume 90.5 fL (81-99); Mean Platelet Vol. 9.8 fl (6.2-12.0); Monocyte# 0.85 X10^3/uL; Monocyte% 6.4 % (0-10); Neutrophil # 8.18 X10^3/uL (2.7-7.7); Neutrophil % 61.6 % (47-70); Platelet Count 369 K/mm3 (150-450); RBC Distribution Width CV 13.7 % (11.6-14.6); RBC Distribution Width SD 45.2 fl (35.1-43.9); Red Blood Count 4.72 M/mm3 (4.2-5.4); White Blood Count 13.3 K/mm3 (4.4-11.0)
[2019-01-21 20:12] LABS: POSITIVE COUNT NO; POSITIVE DIFFERENTIAL NO; POSITIVE MORPHOLOGY NO
[2019-01-21 20:16] LABS: Anion Gap 8 (5-15); BUN 20 mg/dL (7-18); BUN/Creat Ratio 14.7 RATIO (10-20); Calcium,Total 8.2 mg/dL (8.5-10.1); Chloride 104 mmol/L (98-107); Creatinine, Serum 1.36 mg/dL (0.55-1.02); EST Glomerular Filtration Rate 46 mL/min (>60); Est Glom Filt Rate - Afr Amer 55 mL/min (>60); Estimated Creatinine Clearance 41.08 ml/min; Glucose 109 mg/dL (74-106); Potassium 3.7 mmol/L (3.5-5.1); Sodium Level 137 mmol/L (136-145)
--- NOTE | 2019-01-21 20:23 | CT_ITS ---
We are attempting to reach Esvin Cardoza MD to discuss findings. An addendum with communication details will be sent when the communication is complete. STUDY: CT ABDOMEN AND PELVIS WITHOUT CONTRAST REASON FOR EXAM: Female, 43 years old. Right lower quadrant and umbilical pain with nausea vomiting and diarrhea since Tuesday RADIATION DOSAGE (If Supplied By Facility): CTDIvol = ( 16.59 ) mGy, DLP = ( 828.94 ) mGycm TECHNIQUE: Transaxial images were obtained from the dome of the diaphragm to the symphysis pubis without oral contrast, and without intravenous contrast. Sagittal and coronal images were reconstructed. Individualized dose optimization techniques were used for this CT. COMPARISON: Previous study of 02/10/2018 FINDINGS: The study is limited, being performed without oral and intravenous contrast. There is a calcified intrafissural nodule of the right lung base measuring 1.2 cm, stable in the interval. The visualized portions of the heart are within normal limits. There is decreased attenuation of the liver consistent with steatosis. Normal gallbladder and extrahepatic biliary system. There are multiple benign calcified granulomata of the spleen. Normal pancreas. Normal bilateral adrenal glands. Normal right kidney. There is a nonobstructing 3 mm calculus of the left kidney. Normal visualized stomach. Normal small intestine. There is mild pericecal fatty stranding. The appendix is fluid-filled and distended, measuring up to 9 mm. Normal abdominal aorta. Normal inferior vena cava. Normal retroperitoneum. Normal urinary bladder. There is absence of the uterus consistent with a prior hysterectomy. There is a 4.0 cm left ovarian cyst. There is a 3.1 cm right ovarian cyst. Normal abdominal wall. There are degenerative changes of the visualized lower thoracic spine. CT/Abdomen/Pelvis without Cont IMPRESSION: 1. The appendix is fluid-filled and distended, measuring up to 9 mm. Pericecal fatty stranding is present. Findings are compatible with acute appendicitis. There is no abnormal free or loculated intra-abdominal or intrapelvic fluid. 2. There are bilateral ovarian cysts. 3. There is a calcified intrafissural nodule of the right lung base measuring 1.2 cm, consistent with granuloma and stable in the interval. 4. Hepatic steatosis. 5. Multiple calcified granulomas of the spleen. 6. Nonobstructing 3 mm calculus of the left kidney. Electronically Signed: Arvind Everett MD at 22:04 EDT , Service support ,
--- NOTE | 2019-01-21 20:26 | ED.DCSUM_ITS ---
- ER Visit Summary Date of Service: 01/21/19 Chief Complaint: [Abdominal pain] History of Present Illness: The patient is a 43 F [presents the emergency department complaint of abdominal pain that she is had for about 5 days. Patient had a dental extraction 5 days ago and was sedated for that. Patient had 2 episodes of vomiting that day and started having diarrhea. Patient is having frequent watery stools and the color of the stools changed from watery to brown and now is yellow. Patient complains of a lot of pain in the lower abdomen intermittently with severe cramping. She denies any fevers. She denies urinary symptoms. Patient denies any sick contacts. Patient states she had the respiratory influenza 2 weeks ago. Patient has history of asthma, hypertension, and hypothyroidism. Patient has had prior hysterectomy and C- section.] Physical Examination: [HEENT-PERRLA, EOMI. Cranial nerves II through XII grossly intact. TMs clear. Mucous membranes moist. No adenopathy. Cardiovascular-regular rate and rhythm without murmur or ectopy Lungs-clear to auscultation, chest wall stable without crepitus or subcu emphysema Abdomen-normoactive bowel sounds, soft. Patient has tenderness over the lower abdomen diffusely and especially in the right lower quadrant. There is no guarding, rigidity, or perineal signs. Extremities-intact ?4, normal range of motion, normal pulses, atraumatic] Test Results: [CBC with differential obtained showed a white count of 13.3, hemoglobin 14, hematocrit 43, placed 369. Chemistries showed a sodium 137, potassium 3.7, chloride 104, CO2 25, glucose 109, BUN 20, creatinine 1.36.] CT scan of the abdomen pelvis was read by radiology as acute appendicitis Emergency Department Course and Treatment: [Patient case was discussed with general surgeon on-call Dr. Posadas will admit patient.] Treatment Plan: [Admit for surgical intervention] Disposition: [Admit] Impression: [Acute appendicitis] This note was generated with [employer] dictation software. It may contain incorrect words, spelling, and punctuation that were not noted in review of the chart prior to signing ED Disposition - Plan for ED Patient: Referrals: Carlos Chris Chi, MD [Primary Care Provider] -
[2019-01-21 20:45] LABS: Mucous, Urine 0 SEEN /hpf (<or=2+); Red Blood Cells-Urine 0 SEEN /hpf (0-5)
[2019-01-21 20:46] LABS: Color, Urine Yellow (Yellow); Glucose, Dipstick Normal (Normal); Ketone-Dipstick Negative (Negative); Leukocyte Esterase-Dipstick Negative /ul (Negative); Nitrite-Dipstick Negative (Negative); Occult Blood-Urine 10 /ul (Negative); Protein-Dipstick 30 mg/dl (Negative); Urine Bilirubin Dipstick Negative (Negative); Urine Clarity Sl. Cloudy (Clear); Urine Urobilinogen Normal (Normal)
[2019-01-21 20:47] LABS: AST(SGOT) 55 U/L (15-37); Alanine Aminotransfer ALT/SGPT 66 U/L (13-56); Albumin, Serum 3.2 g/dL (3.2-5.0); Alkaline Phosphatase 93 U/L (45-117); Globulin 4.4 g/dL (2.2-4.2); Lipase 451 U/L (73-393); Protein, Total 7.6 g/dL (6.4-8.2)
[2019-01-21] MEDS: Morphine 4 MG/ML Syringe IV (20:48)
[2019-01-21] MEDS: Ondansetron 4 MG/2 ML Vial IV (20:48)
[2019-01-21] MEDS: 0.9% Normal Saline 1,000 ML 1000 ML IV (20:48)
[2019-01-21] MEDS: Dicyclomine 20 MG/2 ML Vial IM (20:48)
[2019-01-21 21:00] LABS: Bacteria 1+ /hpf (None Seen); Squamous Epithelial Cells - UA 0-5 SEEN /hpf (5-10); White Blood Cells 0-5 SEEN /hpf (0-5)
[2019-01-21 22:15] VITALS: BP 155/93; PULSE 87; RESP 18; O2SAT 100
--- NOTE | 2019-01-21 22:47 | PCM.HP.STD ---
Problem List (1) Acute appendicitis Status: Acute Qualifiers: Acute appendicitis type: unspecified acute appendicitis type Qualified Code(s): K35.80 - Unspecified acute appendicitis History of Present Illness Date of Admission: 01/21/19 The patient is a 43 year old F who has been having right lower quadrant pain for the last 5 days. She has had vomiting twice over the last few days. She says the pain has been steadily in the right lower quadrant and has been worsening. She describes chills today but no fevers. She is also been having diarrhea. Past Medical History Allergies citalopram Allergy (Verified 01/21/19 19:29) Unknown codeine Allergy (Verified 01/21/19 19:29) Unknown lithium Allergy (Verified 01/21/19 19:29) Unknown Home Medications: Ambulatory Orders Medication Instructions Recorded Hydrochlorothiazide 12.5 mg PO DAILY 01/17/17 Levothyroxine Sodium 200 mcg PO DAILY 06/04/18 Citalopram [Celexa] 20 mg PO DAILY 01/21/19 Surgical History: - - C-sections and an open hysterectomy Smoking Status: Never smoker - *Family History Maternal History Items: No pertinent history Review of Systems Constitutional: Reports: Chills. Denies: Fever HEENT: Denies: Difficulty Swallowing Cardiovascular: Denies: Chest Pain Respiratory: Denies: Cough, Shortness of Breath Gastrointestinal: Reports: Abdominal Pain, Diarrhea, Nausea, Vomiting. Denies: Hematemesis, Hematochezia, Melena Genitourinary: Denies: Dysuria Skin: Denies: Jaundice Neurological: Denies: Numbness Psychiatric: Denies: Anxiety, Depression Hematologic/ Lymphatic: Denies: Anemia VTE Information - Inpt Only VTE Present on Admission: No VTE Mechan Device Prophylaxis: SCD's Patient Problems: Active and Suspected Problems Acute appendicitis (Acute) - Physical Exam General: Alert, Oriented x3 HEENT: Atraumatic Neck: No JVD Lungs: Normal air movement Cardiovascular: Regular rate, Regular Rhythm Abdomen: Soft, Non-Distended, Tender - Tender in the right lower quadrant with no guarding or rebound. Extremities: No clubbing Musculoskeletal: No Muscle Wasting Neurological: Cranial nerves II-XII grossly intact Psych/Mental Status: Normal Affect Vital Signs Temp Pulse Resp BP Pulse Ox 96.9 F L 87 18 155/93 H 100 01/21/19 19:27 01/21/19 22:15 01/21/19 22:15 01/21/19 22:15 01/21/19 22:15 Oxygen Delivery Method Room Air Weight: 210 lb 1.608 oz Body Mass Index (BMI) 39.6 Laboratory Tests Past 24 Hrs 01/21/19 01/21/19 01/21/19 19:40 19:40 19:40 WBC 13.3 H RBC 4.72 Hgb 14.3 Hct 42.7 MCV 90.5 MCH 30.3 MCHC 33.5 RDW 13.7 RDW Differential 45.2 H Plt Count 369 MPV 9.8 Immature Gran % (Auto) 0.200 Neut % (Auto) 61.6 Lymph % (Auto) 29.6 [place] % (Auto) 6.4 Eos % (Auto) 1.9 Baso % (Auto) 0.3 Absolute Neuts (auto) 8.2 H Absolute Lymphs (auto) 3.94 Total Counted Not Reportable Sodium 137 Potassium 3.7 Chloride 104 Carbon Dioxide 25.0 Anion Gap 8 BUN 20 H Creatinine 1.36 H Estim Creat Clear Calc 41.08 Est GFR (MDRD) Af Amer 55 L Est GFR (MDRD) Non-Af 46 L BUN/Creatinine Ratio 14.7 Glucose 109 H Calcium 8.2 L Total Bilirubin 0.40 Direct Bilirubin 0.10 AST 55 H ALT 66 H Alkaline Phosphatase 93 Total Protein 7.6 Albumin 3.2 Globulin 4.4 H Lipase 451 H Urine Color Urine Clarity Urine pH Ur Specific [place] Urine Protein Urine Glucose (UA) Urine Ketones Urine Occult Blood Urine Nitrite Urine Bilirubin Urine Urobilinogen Ur Leukocyte Esterase Urine RBC Urine WBC Ur Squamous Epith Cells Urine Bacteria Urine Mucus 01/21/19 20:40 WBC RBC Hgb Hct MCV MCH MCHC RDW RDW Differential Plt Count MPV Immature Gran % (Auto) Neut % (Auto) Lymph % (Auto) [place] % (Auto) Eos % (Auto) Baso % (Auto) Absolute Neuts (auto) Absolute Lymphs (auto) Total Counted Sodium Potassium Chloride Carbon Dioxide Anion Gap BUN Creatinine Estim Creat Clear Calc Est GFR (MDRD) Af Amer Est GFR (MDRD) Non-Af BUN/Creatinine Ratio Glucose Calcium Total Bilirubin Direct Bilirubin AST ALT Alkaline Phosphatase Total Protein Albumin Globulin Lipase Urine Color Yellow Urine Clarity Sl. Cloudy Urine pH 5.0 Ur Specific [place] 1.020 Urine Protein 30 H Urine Glucose (UA) Normal Urine Ketones Negative Urine Occult Blood 10 H Urine Nitrite Negative Urine Bilirubin Negative Urine Urobilinogen Normal Ur Leukocyte Esterase Negative Urine RBC 0 SEEN Urine WBC 0-5 SEEN Ur Squamous Epith Cells 0-5 SEEN Urine Bacteria 1+ Urine Mucus 0 SEEN Clinical Impression(s) from Imaging Studies Abdomen/Pelvis CT 01/21/19 20:23 IMPRESSION: 1. The appendix is fluid-filled and distended, measuring up to 9 mm. Pericecal fatty stranding is present. Findings are compatible with acute appendicitis. There is no abnormal free or loculated intra-abdominal or intrapelvic fluid. 2. There are bilateral ovarian cysts. 3. There is a calcified intrafissural nodule of the right lung base measuring 1.2 cm, consistent with granuloma and stable in the interval. 4. Hepatic steatosis. 5. Multiple calcified granulomas of the spleen. 6. Nonobstructing 3 mm calculus of the left kidney. Electronically Signed: Arvind Everett MD at 22:04 EDT , Service support , ADDENDUM: 01/21/198 IMPRESSION: 1. The appendix is fluid-filled and distended, measuring up to 9 mm. Pericecal fatty stranding is present. Findings are compatible with acute appendicitis. There is no abnormal free or loculated intra-abdominal or intrapelvic fluid. 2. There are bilateral ovarian cysts. 3. There is a calcified intrafissural nodule of the right lung base measuring 1.2 cm, consistent with granuloma and stable in the interval. 4. Hepatic steatosis. 5. Multiple calcified granulomas of the spleen. 6. Nonobstructing 3 mm calculus of the left kidney. N.B. : The above information has been verbally conveyed by Arvind Everett MD to Esvin Cardoza MD, on 01/21/2019 22:11:52 (ET). Electronically Signed: Arvind Everett MD at 22:04 EDT , Service support , Assessment/Plan All Active Problems Acute appendicitis (Acute) 43-year-old female with acute appendicitis 1. Patient has leukocytosis and right lower quadrant pain. CT scan revealed stranding around the cecum as well as a fluid-filled distended appendix. Patient reports his pain is been going on for 5 days. I plan to take her first thing in the morning for laparoscopic appendectomy. I explained the procedure as well as the risks including but not limited to bleeding, infection, injury to surrounding organs such as the bowels or bladder or ureter. Patient understands the risks and is willing to proceed with surgery. Patient will be kept n.p.o. on IV fluids and given antibiotics. Juan F Posadas MD Pager: [facility] [address] [place] [address], [address] [place] [address] Office:
--- NOTE | 2019-01-21 22:51 | HP.PCM_ITS ---
Problem List (1) Acute appendicitis Status: Acute Qualifiers: Acute appendicitis type: unspecified acute appendicitis type Qualified Code(s): K35.80 - Unspecified acute appendicitis History of Present Illness Date of Admission: 01/21/19 The patient is a 43 year old F who has been having right lower quadrant pain for the last 5 days. She has had vomiting twice over the last few days. She says the pain has been steadily in the right lower quadrant and has been worsening. She describes chills today but no fevers. She is also been having diarrhea. Past Medical History Allergies citalopram Allergy (Verified 01/21/19 19:29) Unknown codeine Allergy (Verified 01/21/19 19:29) Unknown lithium Allergy (Verified 01/21/19 19:29) Unknown Home Medications: Ambulatory Orders Medication Instructions Recorded Hydrochlorothiazide 12.5 mg PO DAILY 01/17/17 Levothyroxine Sodium 200 mcg PO DAILY 06/04/18 Citalopram [Celexa] 20 mg PO DAILY 01/21/19 Surgical History: - - C-sections and an open hysterectomy Smoking Status: Never smoker - *Family History Maternal History Items: No pertinent history Review of Systems Constitutional: Reports: Chills. Denies: Fever HEENT: Denies: Difficulty Swallowing Cardiovascular: Denies: Chest Pain Respiratory: Denies: Cough, Shortness of Breath Gastrointestinal: Reports: Abdominal Pain, Diarrhea, Nausea, Vomiting. Denies: Hematemesis, Hematochezia, Melena Genitourinary: Denies: Dysuria Skin: Denies: Jaundice Neurological: Denies: Numbness Psychiatric: Denies: Anxiety, Depression Hematologic/ Lymphatic: Denies: Anemia VTE Information - Inpt Only VTE Present on Admission: No VTE Mechan Device Prophylaxis: SCD's Patient Problems: Active and Suspected Problems Acute appendicitis (Acute) - Physical Exam General: Alert, Oriented x3 HEENT: Atraumatic Neck: No JVD Lungs: Normal air movement Cardiovascular: Regular rate, Regular Rhythm Abdomen: Soft, Non-Distended, Tender - Tender in the right lower quadrant with no guarding or rebound. Extremities: No clubbing Musculoskeletal: No Muscle Wasting Neurological: Cranial nerves II-XII grossly intact Psych/Mental Status: Normal Affect Vital Signs Temp Pulse Resp BP Pulse Ox 96.9 F L 87 18 155/93 H 100 01/21/19 19:27 01/21/19 22:15 01/21/19 22:15 01/21/19 22:15 01/21/19 22:15 Oxygen Delivery Method Room Air Weight: 210 lb 1.608 oz Body Mass Index (BMI) 39.6 Laboratory Tests Past 24 Hrs 01/21/19 01/21/19 01/21/19 19:40 19:40 19:40 WBC 13.3 H RBC 4.72 Hgb 14.3 Hct 42.7 MCV 90.5 MCH 30.3 MCHC 33.5 RDW 13.7 RDW Differential 45.2 H Plt Count 369 MPV 9.8 Immature Gran % (Auto) 0.200 Neut % (Auto) 61.6 Lymph % (Auto) 29.6 [place] % (Auto) 6.4 Eos % (Auto) 1.9 Baso % (Auto) 0.3 Absolute Neuts (auto) 8.2 H Absolute Lymphs (auto) 3.94 Total Counted Not Reportable Sodium 137 Potassium 3.7 Chloride 104 Carbon Dioxide 25.0 Anion Gap 8 BUN 20 H Creatinine 1.36 H Estim Creat Clear Calc 41.08 Est GFR (MDRD) Af Amer 55 L Est GFR (MDRD) Non-Af 46 L BUN/Creatinine Ratio 14.7 Glucose 109 H Calcium 8.2 L Total Bilirubin 0.40 Direct Bilirubin 0.10 AST 55 H ALT 66 H Alkaline Phosphatase 93 Total Protein 7.6 Albumin 3.2 Globulin 4.4 H Lipase 451 H Urine Color Urine Clarity Urine pH Ur Specific [place] Urine Protein Urine Glucose (UA) Urine Ketones Urine Occult Blood Urine Nitrite Urine Bilirubin Urine Urobilinogen Ur Leukocyte Esterase Urine RBC Urine WBC Ur Squamous Epith Cells Urine Bacteria Urine Mucus 01/21/19 20:40 WBC RBC Hgb Hct MCV MCH MCHC RDW RDW Differential Plt Count MPV Immature Gran % (Auto) Neut % (Auto) Lymph % (Auto) [place] % (Auto) Eos % (Auto) Baso % (Auto) Absolute Neuts (auto) Absolute Lymphs (auto) Total Counted Sodium Potassium Chloride Carbon Dioxide Anion Gap BUN Creatinine Estim Creat Clear Calc Est GFR (MDRD) Af Amer Est GFR (MDRD) Non-Af BUN/Creatinine Ratio Glucose Calcium Total Bilirubin Direct Bilirubin AST ALT Alkaline Phosphatase Total Protein Albumin Globulin Lipase Urine Color Yellow Urine Clarity Sl. Cloudy Urine pH 5.0 Ur Specific [place] 1.020 Urine Protein 30 H Urine Glucose (UA) Normal Urine Ketones Negative Urine Occult Blood 10 H Urine Nitrite Negative Urine Bilirubin Negative Urine Urobilinogen Normal Ur Leukocyte Esterase Negative Urine RBC 0 SEEN Urine WBC 0-5 SEEN Ur Squamous Epith Cells 0-5 SEEN Urine Bacteria 1+ Urine Mucus 0 SEEN Clinical Impression(s) from Imaging Studies Abdomen/Pelvis CT 01/21/19 20:23 IMPRESSION: 1. The appendix is fluid-filled and distended, measuring up to 9 mm. Pericecal fatty stranding is present. Findings are compatible with acute appendicitis. There is no abnormal free or loculated intra-abdominal or intrapelvic fluid. 2. There are bilateral ovarian cysts. 3. There is a calcified intrafissural nodule of the right lung base measuring 1.2 cm, consistent with granuloma and stable in the interval. 4. Hepatic steatosis. 5. Multiple calcified granulomas of the spleen. 6. Nonobstructing 3 mm calculus of the left kidney. Electronically Signed: Arvind Everett MD at 22:04 EDT , Service support , ADDENDUM: 01/21/198 IMPRESSION: 1. The appendix is fluid-filled and distended, measuring up to 9 mm. Pericecal fatty stranding is present. Findings are compatible with acute appendicitis. There is no abnormal free or loculated intra-abdominal or intrapelvic fluid. 2. There are bilateral ovarian cysts. 3. There is a calcified intrafissural nodule of the right lung base measuring 1.2 cm, consistent with granuloma and stable in the interval. 4. Hepatic steatosis. 5. Multiple calcified granulomas of the spleen. 6. Nonobstructing 3 mm calculus of the left kidney. N.B. : The above information has been verbally conveyed by Arvind Everett MD to Esvin Cardoza MD, on 01/21/2019 22:11:52 (ET). Electronically Signed: Arvind Everett MD at 22:04 EDT , Service support , Assessment/Plan All Active Problems Acute appendicitis (Acute) 43-year-old female with acute appendicitis 1. Patient has leukocytosis and right lower quadrant pain. CT scan revealed stranding around the cecum as well as a fluid-filled distended appendix. Patient reports his pain is been going on for 5 days. I plan to take her first thing in the morning for laparoscopic appendectomy. I explained the procedure as well as the risks including but not limited to bleeding, infection, injury to surrounding organs such as the bowels or bladder or ureter. Patient understands the risks and is willing to proceed with surgery. Patient will be kept n.p.o. on IV fluids and given antibiotics. Juan F Posadas MD Pager: [facility] [address] [place] [address], [address] [place] [address] Office:
[2019-01-21 23:18] VITALS: BP 123/72; PULSE 66; RESP 14; TEMP 36.7; O2SAT 95
[2019-01-21 23:19] VITALS: BMI 39.6
[2019-01-21 23:21] VITALS: BMI 39.7
[2019-01-21] MEDS: 0.9% NaCl Peripheral Flush Adult/Peds IV (23:53)
[2019-01-21] MEDS: Morphine 2 MG/ML Syringe IV (23:54)
[2019-01-21] MEDS: 0.9% Normal Saline 1,000 ML 125 ML IV (23:55)
[2019-01-22] VITALS (13 sets, daily range): BP systolic 116–136; BP diastolic 57–88; PULSE 72–85; RESP 14–18; TEMP 36.1–36.9; O2SAT 94–100; BMI 39.7
--- NOTE | 2019-01-22 | IMM_PTH ---
PATIENT: ROMAIN WESLEY LOC: MS3 U#:[id number] AGE/SX: 43/F ROOM: MS311 RE01/23/[address]: Dr. Juan F Posadas MD : 1975 BED: 1 DIS: 01/24/2019 SPEC #: [id number] RECD: 01/23/19 13:16 STATUS: AZAEL REQ #: [id number] IGNACIA: 01/22/19 00:[address]: Juan F Posadas DEPT: IMMUNOHISTOCHEMISTRY RECD BY: Eileen Brooke ENTERED: 01/23/19 13:17 SP TYPE: IMMUNO OTHR DR: Dr. Carlos Chris MD Tissues: Appendix, NOS Procedures: BCL-2 (add) CD138 (add) CD20 (add) CD45 (add) CD5 (add) CD79A (add) CD3 (initial) PHYSICIAN & INSTITUTION [place] [address] SPECIMEN INFORMATION: Tissue Source: Appendix Clinical Info: Acute appendicitis Specimen Number: [id number] #2 CPT code: 57233, 56586 x6 METHODOLOGY: Deparaffinized sections of prefer/formalin-fixed tissue or PAP/DQ stained slides are incubated with monoclonal/polyclonal antibodies/oligonucleotide probes. Localization is made via biotin free immunoperoxidase method. Appropriate controls are performed and reacted as expected. Results on target cell population are indicated in the following table: RESULTS: ANTIBODY / CLONE RESULT Block 2 CD3 (PS1) positive CD5 (SP10) positive CD20 (L26) positive, zonal CD45 (RP2/18) positive CD79a (11E3) negative CD138 (B-A38) negative BCL-2 (bcl-2/100/D5) positive, zonal These tests were developed and their performance characteristics determined by [facility]. They may not have been cleared or approved by the U.S. Food and Drug Administration. The FDA has determined that such clearance or approval is not necessary. INTERPRETATION: Appendix, appendectomy: No evidence of lymphoproliferative disorder. AM:sun 01/24/19
--- NOTE | 2019-01-22 | APP_PTH ---
PATIENT: ROMAIN WESLEY LOC: MS3 U#:[id number] AGE/SX: 43/F ROOM: MS311 RE01/23/[address]: Dr. Juan F Posadas MD : 1975 BED: 1 DIS: 01/24/2019 SPEC #: [id number] RECD: 01/22/19 09:47 STATUS: AZAEL REQ #: [id number] IGNACIA: 01/22/19 00:[address]: Juan F Posadas DEPT: SURGICAL PATHOLOGY RECD BY: Andrew Gruber ENTERED: 01/22/19 13:25 SP TYPE: APPENDIX OTHR DR: Dr. Carlos Chris MD Tissues: Appendix, NOS Procedures: Surgery Specimen Level III HEADER OPERATION: Laparoscopic appendectomy PRE-OP DIAGNOSIS: Acute appendicitis TISSUE SUBMITTED: Appendix MICROSCOPIC DIAGNOSIS Appendix, appendectomy: Early acute appendicitis. Reactive lymphoid aggregates. See comment. AM:sun 01/23/19 COMMENT Immunohistochemistry ([id number]) supports the above diagnosis. MICROSCOPIC DESCRIPTION Slides are reviewed. GROSS DESCRIPTION Received is one container labeled with the patient's name and designated appendix. The specimen consists of an appendix measuring 3.5 cm in length and up to 0.5 cm in diameter. The attached periappendiceal adipose tissue measures up to 1 cm in width. The serosa is congested. No obvious perforation is identified. The lumen does not contain any fecalith. Sections of the periappendiceal adipose tissue do not reveal any obvious lesion. The entire appendix is submitted in two cassettes as follows: 1 - tip and proximal portion, 2 - rest of the appendix. / SJ:sun 01/22/19 TC:2 [facility]: [id number]
[2019-01-22] MEDS: Morphine 2 MG/ML Syringe IV ×4 (02:07→13:53)
--- NOTE | 2019-01-22 04:58 | NURSING ---
Spoke to zayra in pharmacy regarding 0600 Zosyn for this morning. Patient to OR this AM for 0645 surgery, had zosyn last night in ED. Should we hold this dose or is it possible to do a 30m infusion prior to surgery? Zayra will order for a x1 30m infusion to ensure antibiotic prior to OR.
[2019-01-22] MEDS: Ondansetron 4 MG/2 ML Vial IV (05:30)
[2019-01-22 06:05] LABS: Anion Gap 5 (5-15); BUN 15 mg/dL (7-18); BUN/Creat Ratio 12.1 RATIO (10-20); Calcium,Total 7.5 mg/dL (8.5-10.1); Chloride 110 mmol/L (98-107); Creatinine, Serum 1.24 mg/dL (0.55-1.02); EST Glomerular Filtration Rate 51 mL/min (>60); Est Glom Filt Rate - Afr Amer 61 mL/min (>60); Estimated Creatinine Clearance 45.05 ml/min; Glucose 89 mg/dL (74-106); Potassium 4.1 mmol/L (3.5-5.1); Sodium Level 140 mmol/L (136-145); Thyroid Stim Hormone (TSH) 6.63 uIU/mL (0.358-3.74)
--- NOTE | 2019-01-22 06:10 | NURSING ---
Verbal report to AC @ this time
--- NOTE | 2019-01-22 08:34 | OP.PCM_ITS ---
Problem List (1) Acute appendicitis Status: Acute Qualifiers: Acute appendicitis type: unspecified acute appendicitis type Qualified Code(s): K35.80 - Unspecified acute appendicitis Report of Operation Date of Procedure: 01/22/19 Pre-Operative Diagnosis: Acute appendicitis Post-Operative Diagnosis: Same Surgery/Procedure Performed:: Laparoscopic appendectomy Specimen's removed: Appendix Description of Procedure: The patient was brought into the operating room and general anesthesia was induced. The left arm was tucked and the abdomen was prepped and draped in usual sterile fashion. A small midline incision was made superior to the umbilicus and deepened to the level of the fascia. The fascia was elevated and incised. The peritoneum was also elevated and incised. A finger sweep was performed and a balloon trocar was placed into the abdomen and inflated. The abdomen was insufflated to 15 mmHg and the camera was inserted and the abdomen was inspected for any injuries upon entering the abdomen. There were none. The patient did have dense adhesions from her omentum to the abdominal wall inferior to the umbilicus. The patient was placed in Trendelenburg position and a 5 mm ports placed in the right lower quadrant and right periumbilical areas under direct visualization. Next using atraumatic bowel graspers the appendix was identified. The appendix was grasped and elevated and Enseal was used to take down the mesoappendix. A stapler was used to come across the base of the dex endix. The appendix was then placed in Endo Catch bag and removed through the umbilical incision. The staple line was inspected and found to be hemostatic and intact. The 2 5 mm ports are removed under direct visualization. The balloon trocar was deflated and removed and all the air was removed from the abdomen. The umbilical incision fascia was closed with an 0 Vicryl [id number] suture. The incisions were then irrigated with saline and dried. Local anesthetic was injected into the incision sites. The skin incisions were then closed with interrupted 4-0 Monocryl suture and Steri-S trips. Bandages were applied and the patient was awoken and taken to PACU in stable condition. Patient tolerated the procedure well. - Admit VTE Documentation VTE Mechan Device Prophylaxis: SCD's
[2019-01-22] MEDS: 0.9% Normal Saline 1,000 ML 125 ML IV ×3 (09:21→19:27)
[2019-01-22] MEDS: HYDROcodone Bitartrate/Apap 5/325 Tablet PO ×2 (16:33→20:29)
[2019-01-23] MEDS: HYDROcodone Bitartrate/Apap 5/325 Tablet PO ×4 (00:25→19:13)
[2019-01-23] MEDS: 0.9% Normal Saline 1,000 ML 125 ML IV ×3 (03:12→20:04)
[2019-01-23 03:14] VITALS: BP 137/85; PULSE 71; RESP 16; TEMP 36.7; O2SAT 97
[2019-01-23] MEDS: Morphine 4 MG/ML Syringe IV (06:12)
[2019-01-23 08:08] VITALS: BP 140/82; PULSE 67; RESP 14; TEMP 36.7; O2SAT 98
[2019-01-23] MEDS: Morphine 2 MG/ML Syringe IV ×2 (08:16→13:49)
[2019-01-23] MEDS: 0.9% NaCl Peripheral Flush Adult/Peds IV ×6 (08:19→20:16)
[2019-01-23 09:29] VITALS: PULSE 67
[2019-01-23] MEDS: Ondansetron 4 MG/2 ML Vial IV (12:34)
[2019-01-23 14:41] VITALS: BP 127/74; PULSE 65; RESP 17; TEMP 36.6; O2SAT 97
[2019-01-23 20:49] VITALS: BP 129/70; PULSE 69; RESP 18; TEMP 36.7; O2SAT 100
[2019-01-24] MEDS: 0.9% Normal Saline 1,000 ML 125 ML IV (04:08)
[2019-01-24 04:14] VITALS: BP 121/79; PULSE 71; RESP 17; TEMP 36.8; O2SAT 99
[2019-01-24] MEDS: HYDROcodone Bitartrate/Apap 5/325 Tablet PO ×2 (04:20→12:07)
[2019-01-24 07:06] LABS: Anion Gap 7 (5-15); BUN 16 mg/dL (7-18); Calcium,Total 7.5 mg/dL (8.5-10.1); Chloride 110 mmol/L (98-107); Creatinine, Serum 1.23 mg/dL (0.55-1.02); EST Glomerular Filtration Rate 51 mL/min (>60); Est Glom Filt Rate - Afr Amer 62 mL/min (>60); Estimated Creatinine Clearance 45.42 ml/min; Glucose 82 mg/dL (74-106); Magnesium 2.3 mg/dL (1.6-2.6); Phosphorus 2.6 mg/dL (2.5-4.9); Potassium 4.4 mmol/L (3.5-5.1); Sodium Level 139 mmol/L (136-145)
[2019-01-24 07:45] VITALS: BP 137/92; PULSE 68; RESP 14; TEMP 36.6; O2SAT 100
[2019-01-24 07:54] LABS: Absolute Lymphocyte Count 2.72 X10^3/ul (0.83-4.51); Absolute Neutrophil Count 12.2 X10^3/uL (2.0-7.7); Basophil# 0.06 X10^3/uL; Basophil% 0.4 % (0-1); Eosinophil# 0.23 X10^3/uL; Eosinophils% 1.5 % (0-5); Hematocrit 41.3 % (37-47); Hemoglobin 13.3 g/dl (12.0-15.0); Lymphocyte # 2.72 X10^3/ul (4.0); Lymphocyte % 17.2 % (19-41); Mean Corp Hgb Conc 32.2 g/gl (32-36); Mean Platelet Vol. 10.5 fl (6.2-12.0); Monocyte# 0.55 X10^3/uL; Monocyte% 3.5 % (0-10); Neutrophil # 12.15 X10^3/uL (2.7-7.7); Platelet Count 321 K/mm3 (150-450); RBC Distribution Width CV 13.9 % (11.6-14.6); RBC Distribution Width SD 47.3 fl (35.1-43.9); Red Blood Count 4.44 M/mm3 (4.2-5.4); White Blood Count 15.8 K/mm3 (4.4-11.0)
[2019-01-24 07:55] LABS: POSITIVE COUNT NO; POSITIVE DIFFERENTIAL NO; POSITIVE MORPHOLOGY NO
[2019-01-24] MEDS: Menthol/Lanolin/Calamine/Znox 113 GM Tube 1 APPLIC TOPICAL (08:41)
--- NOTE | 2019-01-24 09:10 | PCM.PN.SRG ---
Patient Problems: Active and Suspected Problems Acute appendicitis (Acute) Subjective: Patient reports she is doing much better today. She says her stools are more formed. She is tolerating a diet. - Physical Exam General: Alert, Oriented x3 Lungs: Normal air movement Cardiovascular: Regular rate, Regular Rhythm Abdomen: Soft, Non-Distended Vital Signs Temp Pulse Resp BP Pulse Ox 97.9 F 68 14 137/92 H 100 01/24/19 07:45 01/24/19 07:45 01/24/19 07:45 01/24/19 07:45 01/24/19 07:45 Oxygen Flow Rate (L/min) 2 Oxygen Delivery Method Room Air Weight: 210 lb 5.136 oz Body Mass Index (BMI) 39.7 Intake and Output for Last 24 Hours 01/22/19 01/23/19 01/24/19 23:59 23:59 23:59 Intake Total 1244 / 1244 4776 / 4776 769 / 769 Output Total 700 / 700 Balance 544 / 544 4776 / 4776 769 / 769 Microbiology Past 72 Hours 01/22/19 11:25 C. difficile DNA Amplification - Final Stool 01/23/19 08:00 Influenza Types A,B Direct FA (VICKIE) - Final Mucosa - Nasopharyngeal 01/22/19 11:25 Enteric Bacteriology - Final Stool Laboratory Tests Past 24 Hrs 01/24/19 01/24/19 06:20 06:20 WBC 15.8 H RBC 4.44 Hgb 13.3 Hct 41.3 MCV 93.0 MCH 30.0 MCHC 32.2 RDW 13.9 RDW Differential 47.3 H Plt Count 321 MPV 10.5 Immature Gran % (Auto) 0.400 Neut % (Auto) 77.0 H Lymph % (Auto) 17.2 L Rawlins % (Auto) 3.5 Eos % (Auto) 1.5 Baso % (Auto) 0.4 Absolute Neuts (auto) 12.2 H Absolute Lymphs (auto) 2.72 Total Counted Not Reportable Sodium 139 Potassium 4.4 Chloride 110 H Carbon Dioxide 22.0 Anion Gap 7 BUN 16 Creatinine 1.23 H Estim Creat Clear Calc 45.42 Est GFR (MDRD) Af Amer 62 Est GFR (MDRD) Non-Af 51 L BUN/Creatinine Ratio 13.0 Glucose 82 Calcium 7.5 L Phosphorus 2.6 Magnesium 2.3 Medical Necessity - Tobacco Use Smoking Status: Never smoker Tobacco Use: Non-smoker Assessment/Plan All Active Problems Acute appendicitis (Acute) 43-year-old female status post lap scopic appendectomy 1. Patient was having continued diarrhea after surgery. C. difficile came back positive. I started on oral vancomycin. 2. Patient is tolerating a diet and ready to go home. I will arrange for outpatient 10-day therapy of oral vancomycin and follow-up in 2 weeks. Juan F Posadas MD Pager: [facility] [address] [place] [address], [address] [place] [address] Office:
--- NOTE | 2019-01-24 09:12 | PCM.DC.APPY ---
Discharge Diet: Light diet - advance as tolerated Discharge Activity: May Not Drive - for 3-5 days or while taking narcotic pain meds., May Shower Lifting Restrictions: 20 lbs until follow up Call your doctor if your incision/area has: Continuous Slow Oozing, Sudden Increased Bleeding, Increased Pain/ Swelling, Increased Redness, Foul Smelling Discharge Call your doctor if you observe: Fever of 101 or Higher Suture Line Care: Avoid Pulling/Pushing, Avoid Pinching/Bending Additional Dressing/Incision Instructions:: Keep dressing clean and dry. Change or remove dressing in 2 days. Leave steri strips for 1 week. May protect with a gauze bandaid. Additional Instructions: Clean household with bleach Medications to take at Discharge Hydrochlorothiazide 12.5 mg PO DAILY 01/17/17 Levothyroxine Sodium 200 mcg PO DAILY 06/04/18 Citalopram [Celexa] 20 mg PO DAILY 01/21/19 Hydrocodone Bitart/Apap 5-325 [Horace 5/325] 1 - 2 tablet PO Q4H PRN PRN 4 Days #20 tablet 01/24/19 Vancomycin HCl [Firvanq] 125 mg PO [id number] 10 Days #10 days 01/24/19 Allergies/Adverse Reactions: Allergies codeine Allergy (Verified 01/21/19 23:36) Unknown lithium Allergy (Verified 01/21/19 23:36) Unknown The following prescriptions were given: Hydrocodone Bitart/Apap 5-325 [Horace 5/325] 1 - 2 tablet PO Q4H PRN PRN 4 Days #20 tablet PRN Reason: Severe Pain (6-07/19) Vancomycin HCl [Firvanq] 125 mg PO [id number] 10 Days #10 days Primary Care Physician: Carlos Chris Chi, MD [Primary Care Provider] - Test Results: Test results from this visit will be discussed in further detail at your follow-up appointment, if applicable. Please Follow Up With: Juan F Posadas MD When: Please call to schedule 2 week follow up appointment. [phone]
--- NOTE | 2019-01-24 09:15 | DCINST_ITS ---
Discharge Diet: Light diet - advance as tolerated Discharge Activity: May Not Drive - for 3-5 days or while taking narcotic pain meds., May Shower Lifting Restrictions: 20 lbs until follow up Call your doctor if your incision/area has: Continuous Slow Oozing, Sudden Increased Bleeding, Increased Pain/ Swelling, Increased Redness, Foul Smelling Discharge Call your doctor if you observe: Fever of 101 or Higher Suture Line Care: Avoid Pulling/Pushing, Avoid Pinching/Bending Additional Dressing/Incision Instructions:: Keep dressing clean and dry. Change or remove dressing in 2 days. Leave steri strips for 1 week. May protect with a gauze bandaid. Additional Instructions: Clean household with bleach Medications to take at Discharge Hydrochlorothiazide 12.5 mg PO DAILY 01/17/17 Levothyroxine Sodium 200 mcg PO DAILY 06/04/18 Citalopram [Celexa] 20 mg PO DAILY 01/21/19 Hydrocodone Bitart/Apap 5-325 [[place] 5/325] 1 - 2 tablet PO Q4H PRN PRN 4 Days #20 tablet 01/24/19 Vancomycin HCl [Firvanq] 125 mg PO [id number] 10 Days #10 days 01/24/19 Allergies/Adverse Reactions: Allergies codeine Allergy (Verified 01/21/19 23:36) Unknown lithium Allergy (Verified 01/21/19 23:36) Unknown The following prescriptions were given: Hydrocodone Bitart/Apap 5-325 [[place] 5/325] 1 - 2 tablet PO Q4H PRN PRN 4 Days #20 tablet PRN Reason: Severe Pain (6-07/19) Vancomycin HCl [Firvanq] 125 mg PO [id number] 10 Days #10 days Primary Care Physician: Carlos Chris Chi, MD [Primary Care Provider] - Test Results: Test results from this visit will be discussed in further detail at your follow- up appointment, if applicable. Please Follow Up With: Juan F Posadas MD When: Please call to schedule 2 week follow up appointment. [phone]
--- NOTE | 2019-01-24 10:24 | CASEMGMT ---
CYNDI CASTILLO called [facility] to inquire if Prior Authorization was needed for PO Vancomycin. Prior Authorization required. CYNDI CASTILLO called [facility] and completed Prior Authorization and was approved. [facility] updated regarding approved authorization for PO Vancomycin.
--- NOTE | 2019-01-24 11:28 | CASEMGMT ---
CYNDI CASTILLO ASSESSMENT NOTE: To room to talk with pt/determine any discharge needs. Pt resting in bed in no distress. A/O. Pt states confirms demographics, PCP is Dr Chris, Insurance is [employer], pharmacy preference is [facility]. Does not see any specialists. Pt states is independent @ home, drives, BF to drive her home on discharge, and uses no DME. Denies needs for DME or other needs on discharge. Has never been to a SNF or used HHC. Denies needs and no needs identified. Shukri prior auth has been obtained per Samreen HANNA CM and pt states she is awaiting for meds to be delivered to her room. Whit FLAHERTY RN CM
--- NOTE | 2019-01-25 12:48 | CASEMGMT ---
CYNDI CASTILLO DC PHONE CALL DC DATE: 01/24/19 DC Disposition: Home LACE/STRATA: 07/12 Intro role of CM to patient via phone. Pt does not have questions re: instructions or medications. She states she has already made her f/u appointment with PCP and Dr. kinney. CYNDI CASTILLO asked re: care improvement suggestions. Pt stated she did feel she did not receive enough help when needing to use restroom due to being in isolation and having an IV. Pt stated she let charge nurse know prior to discharge. CYNDI CASTILLO thanked her for using [facility] and voicing her concerns. Miri FLAHERTY RN ACM
== END 2019-01-24 12:30 | disposition home or self-care (01) | DRG 234 ==
LOC: ED 20:14 → MS3 22:50
PROVIDERS: Anesthesiology; Admitting Provider Surgery; Emergency Provider Emergency Medicine; Family Provider Family Medicine Geriatric Medicine; PCP Family Medicine Geriatric Medicine; Visit Provider Surgery
PROC: 0DTJ4ZZ Resection of Appendix, Percutaneous Endoscopic Approach (ICD-10-PCS; CPT 44970; principal; 2019-01-22 06:05)
DX: K35.80 Unspecified acute appendicitis (principal); A04.72 Enterocolitis due to Clostridium difficile, not specified as recurrent; E03.9 Hypothyroidism, unspecified
CPT/HCPCS: 36415; 74176; 80048; 80076; 81001; 83690; 83735; 84100; 84443; 85025; 87493; 87506; 87804; 88304; 88341; 88342; 99284; J7030; A4216; C1760; J2405

== ENCOUNTER → 2019-01-30 11:59 | Outpatient (CLI) | payer MEDICAID, SELFPAY ==
[2019-01-22 09:24] VITALS: BMI 39.7
[2019-01-30 12:46] LABS: Absolute Lymphocyte Count 2.32 X10^3/ul (0.83-4.51); Absolute Neutrophil Count 4.7 X10^3/uL (2.0-7.7); Basophil# 0.05 X10^3/uL; Basophil% 0.6 % (0-1); Eosinophil# 0.15 X10^3/uL; Eosinophils% 1.9 % (0-5); Hematocrit 41.7 % (37-47); Hemoglobin 13.7 g/dl (12.0-15.0); Lymphocyte # 2.32 X10^3/ul (4.0); Lymphocyte % 28.7 % (19-41); Mean Corp Hgb Conc 32.9 g/gl (32-36); Mean Corpuscular Hgb 29.5 pg (27.0-32.0); Mean Corpuscular Volume 89.9 fL (81-99); Mean Platelet Vol. 10.2 fl (6.2-12.0); Monocyte# 0.78 X10^3/uL; Monocyte% 9.7 % (0-10); Neutrophil # 4.72 X10^3/uL (2.7-7.7); Neutrophil % 58.4 % (47-70); Platelet Count 287 K/mm3 (150-450); RBC Distribution Width CV 14.6 % (11.6-14.6); RBC Distribution Width SD 47.8 fl (35.1-43.9); Red Blood Count 4.64 M/mm3 (4.2-5.4); White Blood Count 8.1 K/mm3 (4.4-11.0)
[2019-01-30 12:53] LABS: POSITIVE COUNT NO; POSITIVE DIFFERENTIAL NO; POSITIVE MORPHOLOGY NO
[2019-01-30 13:05] LABS: Anion Gap 9 (5-15); BUN 6 mg/dL (7-18); BUN/Creat Ratio 6.6 RATIO (10-20); Calcium,Total 8.1 mg/dL (8.5-10.1); Chloride 105 mmol/L (98-107); Creatinine, Serum 0.91 mg/dL (0.55-1.02); EST Glomerular Filtration Rate 72 mL/min (>60); Est Glom Filt Rate - Afr Amer 87 mL/min (>60); Glucose 83 mg/dL (74-106); Potassium 3.7 mmol/L (3.5-5.1); Sodium Level 139 mmol/L (136-145)
--- NOTE | 2019-01-30 13:53 | CT_ITS ---
STUDY: CT ABDOMEN AND PELVIS WITH CONTRAST REASON FOR EXAM: Female, 43 years old. Abdominal pain. Appendectomy last week. Prior hysterectomy. RADIATION DOSAGE (If Supplied By Facility): CTDIvol = ( 15.11 ) mGy, DLP = ( 1219.50 ) mGycm TECHNIQUE: Transaxial images were obtained from the dome of the diaphragm to the symphysis pubis with oral contrast. 100 IV Isovue 300 was administered. Sagittal and coronal images were reconstructed. Individualized dose optimization techniques were used for this CT. COMPARISON: January 21, 2019. FINDINGS: Lung bases: Right lung base granulomas. No acute process. Heart: Mild coronary artery disease. Liver: Mild hepatic steatosis. No focal hepatic lesions. Portal vein patent. Gallbladder/biliary ducts: Unremarkable. Pancreas: Unremarkable. Spleen: Multiple splenic granulomas. Adrenal glands: Unremarkable. Kidneys/ureters/bladder: Normal urinary bladder. Nondistended ureters. Normal bilateral symmetric renal parenchymal enhancement. Stable punctate left nonobstructing calculus. Uterus/adnexa: Stable bilateral multiseptated adnexal cystic region (axial image 90 series 2) without inflammatory changes. Left cystic adnexa measures up to 4 cm. Right cystic adnexa measures up to 3.2 cm. Hysterectomy. Large bowel/small bowel: Mild thickening of the right colon and transverse colon (axial images 43 through 68 series 2). Mild thickening of the rectum and distal sigmoid colon (axial images 98 through 105 series 2). No obstruction. No pneumatosis. No acute small bowel abnormality. Appendix: Surgically absent. No perforation. No abscess. Gastroesophageal junction/stomach: Unremarkable. Retroperitoneum/lymph nodes: No intra-abdominal free air. No ascites. No pathologically enlarged lymph nodes. Vascular: Unremarkable. Osseous structures: Exaggerated lumbar lordosis. Multilevel degenerative changes. No acute process. Subcutaneous/soft tissues: Minimal fluid at the ventral soft tissues (axial image 71 series 2) without enhancement. CT/Abdomen/Pelvis WITH Contrast IMPRESSION: Mild uncomplicated acute colitis (infectious/inflammatory) Recent appendectomy without abscess or perforation Mild ventral fluid without enhancement (statistically postoperative) Stable bilateral cystic adnexa Stable chronic granulomatous findings Electronically Signed: Josue Barreto DO at 14:24 EDT Tel , Service support ,
== END ==
PROVIDERS: Family Provider Family Medicine Geriatric Medicine; PCP Family Medicine Geriatric Medicine; Referring Provider Family Medicine Geriatric Medicine; Visit Provider Family Medicine Geriatric Medicine
DX: R10.9 Unspecified abdominal pain (principal); N39.0 Urinary tract infection, site not specified
CPT/HCPCS: 36415; 74177; 80048; 85025; 87086; 87088; Q9967

== ENCOUNTER → 2019-02-26 11:36 | Outpatient (CLI) | payer MEDICAID, SELFPAY ==
[2019-01-22 09:24] VITALS: BMI 39.7
[2019-02-26 13:12] LABS: Absolute Lymphocyte Count 5.06 X10^3/ul (0.83-4.51); Absolute Neutrophil Count 5.5 X10^3/uL (2.0-7.7); Basophil# 0.05 X10^3/uL; Basophil% 0.4 % (0-1); Eosinophil# 0.18 X10^3/uL; Eosinophils% 1.6 % (0-5); Hemoglobin 13.3 g/dl (12.0-15.0); Lymphocyte # 5.06 X10^3/ul (4.0); Mean Corp Hgb Conc 32.4 g/gl (32-36); Mean Corpuscular Hgb 29.8 pg (27.0-32.0); Mean Corpuscular Volume 91.7 fL (81-99); Mean Platelet Vol. 10.2 fl (6.2-12.0); Monocyte# 0.71 X10^3/uL; Monocyte% 6.2 % (0-10); Neutrophil # 5.46 X10^3/uL (2.7-7.7); Neutrophil % 47.5 % (47-70); Platelet Count 369 K/mm3 (150-450); RBC Distribution Width CV 14.3 % (11.6-14.6); RBC Distribution Width SD 47.8 fl (35.1-43.9); Red Blood Count 4.47 M/mm3 (4.2-5.4); White Blood Count 11.5 K/mm3 (4.4-11.0)
[2019-02-26 13:18] LABS: ALB/GLOB Ratio 0.7 RATIO (0.9-2.4); AST(SGOT) 28 U/L (15-37); Alanine Aminotransfer ALT/SGPT 33 U/L (13-56); Albumin, Serum 3.5 g/dL (3.2-5.0); Alkaline Phosphatase 76 U/L (45-117); Anion Gap 6 (5-15); BUN 12 mg/dL (7-18); BUN/Creat Ratio 9.4 RATIO (10-20); Calcium,Total 8.8 mg/dL (8.5-10.1); Chloride 102 mmol/L (98-107); Creatinine, Serum 1.27 mg/dL (0.55-1.02); EST Glomerular Filtration Rate 49 mL/min (>60); Est Glom Filt Rate - Afr Amer 60 mL/min (>60); Globulin 4.8 g/dL (2.2-4.2); Glucose 89 mg/dL (74-106); Potassium 3.7 mmol/L (3.5-5.1); Protein, Total 8.3 g/dL (6.4-8.2); Sodium Level 135 mmol/L (136-145)
[2019-02-26 13:36] LABS: Differential Indicated SCAN CRITERIA MET; POSITIVE COUNT NO; POSITIVE DIFFERENTIAL YES; POSITIVE MORPHOLOGY NO
== END ==
PROVIDERS: Family Provider Family Medicine Geriatric Medicine; PCP Family Medicine Geriatric Medicine; Visit Provider Family Medicine Geriatric Medicine
DX: E55.9 Vitamin D deficiency, unspecified (principal); I10 Essential (primary) hypertension
CPT/HCPCS: 36415; 80053; 82306; 84443; 85025

== ENCOUNTER → 2019-03-27 | Outpatient (CLI) | payer MEDICAID, SELFPAY ==
[2019-01-22 09:24] VITALS: BMI 39.7
== END | disposition home or self-care (01) ==
LOC: SL 20:33
PROVIDERS: Family Provider Family Medicine Geriatric Medicine; PCP Family Medicine Geriatric Medicine; Referring Provider Family Medicine Geriatric Medicine; Visit Provider Family Medicine Geriatric Medicine
DX: G47.30 Sleep apnea, unspecified (principal)
CPT/HCPCS: 95810

== ENCOUNTER → 2019-03-27 | Outpatient (CLI) | payer MEDICAID, SELFPAY ==
[2019-03-14 10:52] VITALS: BMI 39.2
--- NOTE | 2019-03-27 14:23 | CT_ITS ---
HISTORY: CAD. Calcium scoring overread. EXAM/TECHNIQUE: CT Heart Quantitative coronary calcium W/O contrast: COMPARISON: None. FINDINGS: # of images incl. paperwork: 169 Calcific atherosclerosis of the coronary arteries, please see separate report for the calcium scoring. Calcified right hilar lymph nodes. Calcified granuloma right lower lobe. Otherwise the visualized lungs are clear. Hepatic steatosis and calcified splenic granulomas partially visible. CT/CCTA Calcium Scoring IMPRESSION: Incidental findings as above. Individualized dose optimization techniques were used for this CT. at 1534 Reported and signed by: Arvind Bean MD Electronically Signed: Arvind Bean, at 15:33 EDT Tel , Service support ,
--- NOTE | 2019-03-27 14:23 | CT_ITS ---
HISTORY: CAD. Calcium scoring overread. EXAM/TECHNIQUE: CT Heart Quantitative coronary calcium W/O contrast: COMPARISON: None. FINDINGS: # of images incl. paperwork: 169 Calcific atherosclerosis of the coronary arteries, please see separate report for the calcium scoring. Calcified right hilar lymph nodes. Calcified granuloma right lower lobe. Otherwise the visualized lungs are clear. Hepatic steatosis and calcified splenic granulomas partially visible. CT/Limited Chest CT w/CCTA IMPRESSION: Incidental findings as above. Individualized dose optimization techniques were used for this CT. at 1534 Reported and signed by: Arvind Bean MD Electronically Signed: Arvind Bean, at 15:33 EDT Tel , Service support ,
[2019-03-27 14:38] VITALS: BP 139/94; PULSE 69; RESP 16; O2SAT 98; BMI 37.8
--- NOTE | 2019-03-28 07:32 | CA.SCORE ---
Calcium Scoring Date of Study:: 03/27/19 Coronary Calcium Scoring: High-resolution Computed Tomographic imaging of the chest was performed on [03/27/2019], with particular attention paid to the coronary arteries. Images from the examination were analyzed for the presence and extent of coronary artery calcification , using coronary calcium quantification software. The patient tolerated the procedure well and there were no complications. The results of the coronary calcification analysis are provided below. - Findings Left Main (LM): 93 Left Anterior Descending (LAD): 0 Left Circumflex (LCX): 0 Right Coronary Artery (RCA): 7 Total Agatston Score: 100 Percentile Rankin - Conclusion Calcium Scoring Interpretation: Calcium Score Interpretation 0 No identifiable atherosclerotic plaque. Very low cardiovascular disease risk. <5% chance of presence coronary artery disease A Negative Examination 1-10 Minimal Plaque burden. Significant coronary artery disease very unlikely. 11-100 Mild plaque burden. Likely mild or minimal coronary atherosclerosis. 101-400 Moderate plaque burden Moderate non-obstructive coronary artery disease highly likely. Over 400 Extensive plaque burden. High likelihood of at least one significant coronary stenosis (>50% diameter) Calcium Score: 11 - 100 Likely mild or minimal coronary stenosis - The above is suggestive of likely mild or minimal coronary atherosclerosis. Most of calcification however is noted in the left main coronary artery. A full evaluation of cardiac risk should include assessment of all other risk factors.
== END | disposition home or self-care (01) ==
PROVIDERS: Family Provider Family Medicine Geriatric Medicine; PCP Family Medicine Geriatric Medicine; Referring Provider Internal Medicine Cardiovascular Disease; Visit Provider Internal Medicine Cardiovascular Disease
DX: E78.5 Hyperlipidemia, unspecified (principal); I25.10 Atherosclerotic heart disease of native coronary artery without angina pectoris
CPT/HCPCS: 75571; 76380

== ENCOUNTER → 2019-04-24 | Outpatient (CLI) | payer MEDICAID, SELFPAY ==
[2019-04-17 10:55] VITALS: BMI 37.8
== END | disposition home or self-care (01) ==
LOC: SL 09:42
PROVIDERS: Family Provider Family Medicine Geriatric Medicine; PCP Family Medicine Geriatric Medicine; Visit Provider Nurse Practitioner Acute Care
DX: Z46.89 Encounter for fitting and adjustment of other specified devices (principal)

== ENCOUNTER 2019-06-05 09:06 | Emergency (ER) | payer MEDICAID, SELFPAY ==
[2019-04-17 10:55] VITALS: BMI 37.8
[2019-06-05 09:08] VITALS: BP 143/96; PULSE 79; RESP 18; TEMP 36.4; O2SAT 97; BMI 28.3
--- NOTE | 2019-06-05 09:24 | ED.VIS.GEN ---
History of Present Illness Chief Complaint: Back Informant: Patient Onset: Days - Onset 5 days ago Context: Sudden Onset Timing: Continuous Quality: Pain Location: Right lower back Current Severity: Mild Maximum Severity: Severe Worsened by: Movement Relieved by: Better with rest Associated Symptoms: No associated symptoms Narrative: Patient is a 43-year-old female who presents with atraumatic right low back pain. She denies radicular pain. Denies bowel bladder dysfunction. Denies saddle paresthesia or anesthesia. She denies foot drop. She denies buckling of her knees going up or down steps. She reports increased pain going up or down steps. There is no history of back problems. She denies dysuria, frequency, urgency or hematuria. She denies history of renal ureterolithiasis. She denies nausea, vomiting or diarrhea. She denies fever, chills or night sweats. She denies weight gain or weight loss. Prior similar symptoms: No Recent Illness/Hospitalization: No - Past Medical History (1) History of hypothyroidism Status: Acute (2) Asthma Status: Acute (3) BALBINA (obstructive sleep apnea) Status: Acute Comment: Overall AHI 10 (4) Essential (primary) hypertension Status: Chronic (5) Hyperlipidemia Status: Chronic Past Medical History - Allergies and Home Meds Allergies/Adverse Reactions: Allergies codeine Allergy (Verified 06/05/19 09:07) Unknown lithium Allergy (Verified 06/05/19 09:07) Unknown Primary Care Physician: Carlos Chris Chi, MD [Primary Care Provider] - Prior records reviewed: Yes Surgical History: - - C-sections and an open hysterectomy Lives: - - She is Smoking Status: Never smoker Alcohol: None Drugs: None - Family History Maternal Family History: Family History (Last Reviewed 04/17/19 @ 11:35 by LEONIE Dos Santos) Mother Diabetes Breast cancer Father Diabetes Heart disease Hypertension CVA (cerebral vascular accident) Family History: Reports: No pertinent history Review of Systems General: Denies: Chills, Fever, Malaise, Subjective, Sweats, Weight loss, - Cardiovascular: Denies: Chest pain, Palpitations Respiratory: Denies: Dyspnea, Cough, Dyspnea on exertion Gastrointestinal: Denies: Abdominal pain, Nausea, Vomiting, Diarrhea, Constipation, Melena, Hematochezia, -, - Genitourinary: Denies: Dysuria, Hematuria, Frequency Musculoskeletal: Reports: Back pain. Denies: Myalgias, Arthralgias, Neck pain, Swelling, Extremity Pain Skin: Denies: Rash, Wounds Neurological: Denies: Weakness, Parasthesia, Numbness Hematologic: Denies: Easy bruising, Easy bleeding Allergy: Denies: Uticaria, Swelling of the mouth Physical Exam Vital Signs/Narrative: Vital Signs Temp Pulse Resp BP Pulse Ox 06/05/19 09:08 97.5 F L 79 18 143/96 H 97 Inital Vital Signs reviewed: Yes General: Well nourished, Well developed, Obese, No Acute Distress Head: Normocephalic, Atraumatic Eyes: Perrl, EOMI. Negative for: Pale conjunctiva, Scleral icterus ENT: Moist mucous membranes, No rhinorrhea Neck: Supple, Nontender, No lymphadenopathy, No JVD Cardiovascular: Regular rate, Regular rhythm, No murmurs, Normal S1, Normal S2 Respiratory: CTA bilaterally Abdomen: Soft, Nontender, Nondistended, Normal bowel sounds Back: Normal Inspection. Negative for: CVA tenderness, Spinal tenderness Extremities: Nontender, No edema. Negative for: Calf Tenderness Skin: Normal color, No rash, No Trauma. Negative for: Cyanosis, Diaphoresis, Jaundice Neurological: Alert, Oriented x3, Cranial nerves II-XII grossly intact, Normal Strength, Normal Sensation, Normal DTR, Normal Gait, - - Was observed. There is no foot drop. She is able to walk on heels and toes. She is able to perform 1 legged squat. Straight leg test is negative. Patella and ankle reflexes are 2+ and symmetric. EHL is intact. She has normal sensation medial, dorsal lateral surface of the feet. She has normal sensation gluteal region. She has significant pain to palpation of the right lower back. Movement causes her pain. Psychological: Normal affect, Normal Mood Diagnostic/Tx/Re-eval - Medical Decision Making Patient's history and physical exam is consistent with muscular skeletal right low back pain without sciatica. There are no red flags to suggest acute herniated disc and cauda equina syndrome. There is no history or findings to suggest epidural hematoma or abscess. Since there is no contraindication to NSAIDs patient was treated with Naprosyn and discharged home with prescription for Naprosyn. She states she drove herself to the emergency department. ED Disposition - Plan for ED Patient: Disposition: Home or Assisted Living Diagnosis: Right-sided low back pain without sciatica Instructions: BACK PAIN (Acute or Chronic) Prescriptions: Naproxen [Naprosyn] 500 mg PO BID #14 tab Prescription Printed Referrals: Carlos Chris Chi, MD [Primary Care Provider] - 1 Week if not improving
[2019-06-05] MEDS: Naproxen 250 MG Tablet 500 MG PO (09:35)
== END 2019-06-05 09:38 | disposition home or self-care (01) ==
LOC: ED 09:32
PROVIDERS: Emergency Provider Emergency Medicine; Family Provider Family Medicine Geriatric Medicine; PCP Family Medicine Geriatric Medicine
DX: M54.5 Low back pain (principal); E03.9 Hypothyroidism, unspecified; E78.5 Hyperlipidemia, unspecified; I10 Essential (primary) hypertension; J45.909 Unspecified asthma, uncomplicated; G47.33 Obstructive sleep apnea (adult) (pediatric); Z82.3 Family history of stroke; Z90.710 Acquired absence of both cervix and uterus
CPT/HCPCS: 99283

== ENCOUNTER 2019-07-15 09:16 | Emergency (ER) | payer MEDICAID, SELFPAY ==
[2019-07-15 09:17] VITALS: BP 147/99; PULSE 78; RESP 18; TEMP 36.6; O2SAT 100; BMI 39.0
--- NOTE | 2019-07-15 09:28 | RAD_ITS ---
STUDY: X-RAY CHEST REASON FOR EXAM: Female, 43 years old. Chest pain TECHNIQUE: Frontal and lateral views COMPARISON: None. FINDINGS: The lungs are not fully expanded. There is no demonstrated pleural abnormality. Normal size heart. Normal mediastinum and roly. Normal visualized pulmonary arteries. Normal visualized aortic arch and descending thoracic aorta. Mild degenerative changes of the visualized thoracic spine. Normal visualized ribs, clavicles, and shoulders. There is no demonstrated abnormality of the visualized soft tissue structures of the upper abdomen. RAD/Chest PA and Lateral IMPRESSION: Normal x-ray examination of the chest. Electronically Signed: Brian Galvez DO at 10:07 EDT Tel [phone], Service support ,
--- NOTE | 2019-07-15 09:29 | ED.DCSUM_ITS ---
- ER Visit Summary Date of Service: 07/15/19 Chief Complaint: Cough History of Present Illness: The patient is a 43 F who states that several days ago she began to have a sore throat. States that yesterday she began to have runny nose sneezing watery eyes and a cough. She has a history of asthma but notes is been very well controlled recently. She is a non-smoker. She does not have a thermometer at home but does not believe she has had any fevers. Cough is nonproductive in the rhinorrhea is clear. Physical Examination: Afebrile vital signs stable Gen: Well-nourished well-developed Head: Normocephalic atraumatic Eyes: Perrl EOMI ENT: TMs clear turbinate edema and clear rhinorrhea moist mucous membranes Neck: Supple no lymphadenopathy no JVD nontender CVS: Regular rate rhythm no murmurs normal S1-S2 Respiratory: No distress noted to have a slight expiratory wheeze on the left with rhonchi chest nontender Abdomen: Soft nontender nondistended normal bowel sounds no masses Back: Nontender Extremity: Nontender no edema Skin: Normal color no rash Neuro: alert orientated ?3 CN II-XII intact normal strength sensation reflexes gait cerebellar Psych: Normal affect normal mood Test Results: Chest x-ray was obtained. This was negative for infiltrate. Emergency Department Course and Treatment: I believe the patient most likely has a viral upper respiratory tract infection. Given her history of asthma and the fact that I do hear a faint expiratory wheeze I do worry that the patient may develop an asthma exacerbation. Therefore I think is reasonable to give her a dose of Kenalog. Also have her use some Zyrtec or Claritin for the rhinorrhea and watery eyes. Return if worsening or concerns Impression: 1. Viral upper respiratory tract infection This note was generated with [employer] dictation software. It may contain incorrect words, spelling, and punctuation that were not noted in review of the chart prior to signing ED Disposition - Plan for ED Patient: Disposition: Home or Assisted Living Instructions: URI, Viral, No Abx (Adult) Referrals: Carlos Chris Chi, MD [Primary Care Provider] - 10-14 Days if not better Additional Instructions: I would also recommend Zyrtec or Claritin for the watery eyes and runny nose.
[2019-07-15] MEDS: Triamcinolone Acetonide 40 MG/ML Vial IM (10:18)
[2019-07-15 10:34] VITALS: RESP 14
== END 2019-07-15 10:34 | disposition home or self-care (01) ==
PROVIDERS: Emergency Provider Emergency Medicine; Family Provider Family Medicine Geriatric Medicine; PCP Family Medicine Geriatric Medicine
DX: J06.9 Acute upper respiratory infection, unspecified (principal); J45.909 Unspecified asthma, uncomplicated; I10 Essential (primary) hypertension; Z79.899 Other long term (current) drug therapy
CPT/HCPCS: 71046; 96372; 99282

== ENCOUNTER → 2019-07-23 15:15 | Outpatient (CLI) | payer MEDICAID, SELFPAY ==
[2019-01-22 09:24] VITALS: BMI 39.7
[2019-07-15 09:17] VITALS: BMI 39.0
== END ==
PROVIDERS: Family Provider Family Medicine Geriatric Medicine; PCP Family Medicine Geriatric Medicine; Visit Provider Family Medicine Geriatric Medicine
DX: E03.9 Hypothyroidism, unspecified (principal)

== ENCOUNTER → 2019-10-15 11:49 | Outpatient (CLI) | payer MEDICAID, SELFPAY ==
[2019-10-08 09:50] VITALS: BMI 39.9
[2019-10-15 12:41] LABS: Absolute Lymphocyte Count 3.85 X10^3/uL (0.83-4.51); Absolute Neutrophil Count 6.2 X10^3/uL (2.0-7.7); Basophil# 0.11 X10^3/uL; Eosinophil# 0.13 X10^3/uL; Eosinophils% 1.2 % (0-5); Hematocrit 45.5 % (37-47); Hemoglobin 14.9 g/dL (12.0-15.0); Lymphocyte # 3.85 X10^3/ul (4.0); Lymphocyte % 35.2 % (19-41); Mean Corp Hgb Conc 32.7 g/dL (32-36); Mean Corpuscular Volume 94.6 fL (81-99); Mean Platelet Vol. 10.3 fl (6.2-12.0); Monocyte% 5.5 % (0-10); NRBC Flagged by Analyzer 0 % (0-5); Neutrophil # 6.18 X10^3/uL (2.7-7.7); Neutrophil % 56.6 % (47-70); Platelet Count 309 K/mm3 (150-450); RBC Distribution Width CV 12.9 % (11.6-14.6); RBC Distribution Width SD 44.6 fl (35.1-43.9); Red Blood Count 4.81 M/mm3 (4.2-5.4); White Blood Count 10.9 K/mm3 (4.4-11.0)
[2019-10-15 13:42] LABS: ALB/GLOB Ratio 0.7 RATIO (0.9-2.4); AST(SGOT) 26 U/L (15-37); Alanine Aminotransfer ALT/SGPT 27 U/L (13-56); Albumin, Serum 3.7 g/dL (3.2-5.0); Alkaline Phosphatase 84 U/L (45-117); Anion Gap 5 (5-15); BUN 16 mg/dL (7-18); BUN/Creat Ratio 10.6 RATIO (10-20); Calcium,Total 8.6 mg/dL (8.5-10.1); Chloride 101 mmol/L (98-107); Cholesterol 255 mg/dL (200); Creatinine, Serum 1.51 mg/dL (0.55-1.02); EST Glomerular Filtration Rate 40 mL/min (>60); Est Glom Filt Rate - Afr Amer 49 mL/min (>60); Globulin 5.3 g/dL (2.2-4.2); Glucose 80 mg/dL (74-106); High Density Lipoprotein 46 mg/dL; Sodium Level 134 mmol/L (136-145); Triglycerides 204 mg/dL; Very Low Density Lipoprotein 41 mg/dL (5-40)
== END ==
PROVIDERS: Family Provider Family Medicine Geriatric Medicine; PCP Family Medicine Geriatric Medicine; Visit Provider Family Medicine Geriatric Medicine
DX: I10 Essential (primary) hypertension (principal); E78.00 Pure hypercholesterolemia, unspecified
CPT/HCPCS: 36415; 80053; 80061; 84443; 85025

== ENCOUNTER → 2020-03-26 15:15 | Outpatient (CLI) | payer MEDICAID, SELFPAY ==
[2020-02-01 11:09] VITALS: BMI 39.9
--- NOTE | 2020-03-26 15:39 | RAD_ITS ---
STUDY: X-RAY - RIGHT KNEE REASON FOR EXAM: Female, 44 years old. RIGHT KNEE PAIN TECHNIQUE: 3 view(s) of the knee. COMPARISON: None. FINDINGS: Normal visualized distal femur. Normal visualized proximal tibia and fibula. Normal proximal tibiofibular articulation. Normal medial femorotibial compartment. Normal lateral femorotibial compartment. Normal patellofemoral articulation. The soft tissue structures are unremarkable. RAD/Knee 3 Views IMPRESSION: Normal x-ray examination of the knee. Electronically Signed: Carlos Agarwal, at 16:04 EDT , Service support ,
[2020-03-26 16:49] LABS: Absolute Lymphocyte Count 4.34 X10^3/uL (0.83-4.51); Absolute Neutrophil Count 5.4 X10^3/uL (2.0-7.7); Basophil# 0.06 X10^3/uL; Basophil% 0.6 % (0-1); Eosinophil# 0.18 X10^3/uL; Eosinophils% 1.7 % (0-5); Hematocrit 39.1 % (37-47); Hemoglobin 12.7 g/dL (12.0-15.0); Lymphocyte # 4.34 X10^3/ul (4.0); Lymphocyte % 40.4 % (19-41); Mean Corp Hgb Conc 32.5 g/dL (32-36); Mean Corpuscular Hgb 31.6 pg (27.0-32.0); Mean Corpuscular Volume 97.3 fL (81-99); Mean Platelet Vol. 11.1 fl (6.2-12.0); Monocyte# 0.67 X10^3/uL; Monocyte% 6.2 % (0-10); NRBC Flagged by Analyzer 0 % (0-5); Neutrophil # 5.44 X10^3/uL (2.7-7.7); Neutrophil % 50.6 % (47-70); Platelet Count 277 K/mm3 (150-450); RBC Distribution Width CV 13.7 % (11.6-14.6); RBC Distribution Width SD 49.5 fl (35.1-43.9); Red Blood Count 4.02 M/mm3 (4.2-5.4); White Blood Count 10.7 K/mm3 (4.4-11.0)
[2020-03-26 17:00] LABS: ALB/GLOB Ratio 0.8 RATIO (0.9-2.4); AST(SGOT) 37 U/L (15-37); Alanine Aminotransfer ALT/SGPT 32 U/L (13-56); Albumin, Serum 3.7 g/dL (3.2-5.0); Alkaline Phosphatase 61 U/L (45-117); Anion Gap 8 (5-15); BUN 11 mg/dL (7-18); BUN/Creat Ratio 7.8 RATIO (10-20); Calcium,Total 8.6 mg/dL (8.5-10.1); Chloride 105 mmol/L (98-107); Creatinine, Serum 1.41 mg/dL (0.55-1.02); EST Glomerular Filtration Rate 43 mL/min (>60); Est Glom Filt Rate - Afr Amer 53 mL/min (>60); Globulin 4.8 g/dL (2.2-4.2); Glucose 84 mg/dL (74-106); Potassium 4.1 mmol/L (3.5-5.1); Protein, Total 8.5 g/dL (6.4-8.2); Sodium Level 139 mmol/L (136-145); Uric Acid 7.7 mg/dL (2.6-6.0)
[2020-03-26 17:25] LABS: Erythrocyte Sedimentation Rate 60 mm/hr (0-20)
== END ==
PROVIDERS: PCP Family Medicine Geriatric Medicine; Referring Provider Family Medicine Geriatric Medicine; Visit Provider Family Medicine Geriatric Medicine
DX: M25.569 Pain in unspecified knee (principal); R60.9 Edema, unspecified
CPT/HCPCS: 36415; 73562; 80053; 84550; 85025; 85652; 86140

== ENCOUNTER → 2020-03-27 08:51 | Outpatient (CLI) | payer MEDICAID, SELFPAY ==
[2020-02-01 11:09] VITALS: BMI 39.9
--- NOTE | 2020-03-27 08:54 | VDLE_ITS ---
Reason For Study: edema RIGHT GSV is normal. CFV is compressible, spontaneous, phasic, competent and demonstrates normal augmentation. FV is compressible, spontaneous, phasic, competent and demonstrates normal augmentation. POP V is compressible, spontaneous, phasic, competent and demonstrates normal augmentation. T/P Trunk is compressible. PTV is compressible. RT PerV is compressible. Procedure Exam performed in department. The exam was abbreviated due to the COVID 19 protocol. The exam was diagnostic. A preliminary report was called and/or faxed to Dr. Chris. Interpretation Summary Deep veins of the right lower extremity are patent and compressible segmentally. There is no evidence of right lower extremity deep vein thrombosis. Valvular competence appears intact within the proximal deep venous system on the right . The right great saphenous vein appears patent and compressible segmentally. Ordering Physician: Carlos Chris Performed By: Ezra Alarcon RVT
== END ==
PROVIDERS: PCP Family Medicine Geriatric Medicine; Referring Provider Family Medicine Geriatric Medicine; Visit Provider Family Medicine Geriatric Medicine
DX: R60.9 Edema, unspecified (principal)
CPT/HCPCS: 93971

== ENCOUNTER → 2020-04-16 10:27 | Outpatient (CLI) | payer MEDICAID, SELFPAY ==
[2020-02-01 11:09] VITALS: BMI 39.9
[2020-04-16 12:35] LABS: Basophil# 0.07 X10^3/uL; Basophil% 0.7 % (0-1); Eosinophil# 0.12 X10^3/uL; Eosinophils% 1.1 % (0-5); Hematocrit 43.2 % (37-47); Hemoglobin 13.5 g/dL (12.0-15.0); Lymphocyte % 35.4 % (19-41); Mean Corp Hgb Conc 31.3 g/dL (32-36); Mean Corpuscular Hgb 31.7 pg (27.0-32.0); Mean Corpuscular Volume 101.4 fL (81-99); Mean Platelet Vol. 11.5 fl (6.2-12.0); Monocyte# 0.52 X10^3/uL; NRBC Flagged by Analyzer 0 % (0-5); Neutrophil % 57.4 % (47-70); Platelet Count 253 K/mm3 (150-450); RBC Distribution Width CV 14.3 % (11.6-14.6); RBC Distribution Width SD 52.8 fl (35.1-43.9); Red Blood Count 4.26 M/mm3 (4.2-5.4); White Blood Count 10.5 K/mm3 (4.4-11.0)
[2020-04-16 12:53] LABS: Vitamin D,25 Hydroxy 21.3 ng/mL
[2020-04-16 13:35] LABS: ALB/GLOB Ratio 0.8 RATIO (0.9-2.4); AST(SGOT) 35 U/L (15-37); Alanine Aminotransfer ALT/SGPT 37 U/L (13-56); Albumin, Serum 3.8 g/dL (3.2-5.0); Alkaline Phosphatase 55 U/L (45-117); Anion Gap 7 (5-15); BUN 14 mg/dL (7-18); BUN/Creat Ratio 9.5 RATIO (10-20); Calcium,Total 8.8 mg/dL (8.5-10.1); Chloride 100 mmol/L (98-107); Creatinine, Serum 1.48 mg/dL (0.55-1.02); EST Glomerular Filtration Rate 41 mL/min (>60); Est Glom Filt Rate - Afr Amer 50 mL/min (>60); Globulin 4.9 g/dL (2.2-4.2); Glucose 74 mg/dL (74-106); Potassium 4.2 mmol/L (3.5-5.1); Protein, Total 8.7 g/dL (6.4-8.2); Sodium Level 136 mmol/L (136-145); Uric Acid 8.9 mg/dL (2.6-6.0)
== END ==
PROVIDERS: PCP Family Medicine Geriatric Medicine; Visit Provider Family Medicine Geriatric Medicine
DX: I10 Essential (primary) hypertension (principal); E55.9 Vitamin D deficiency, unspecified; M10.9 Gout, unspecified
CPT/HCPCS: 36415; 80053; 82306; 84443; 84550; 85025

== ENCOUNTER → 2020-05-13 11:08 | Outpatient (CLI) | payer MEDICAID, SELFPAY ==
[2020-02-01 11:09] VITALS: BMI 39.9
== END ==
PROVIDERS: PCP Family Medicine Geriatric Medicine; Visit Provider Internal Medicine Nephrology
DX: R10.9 Unspecified abdominal pain (principal)
CPT/HCPCS: 87077; 87086; 87088; 87186

== ENCOUNTER → 2020-05-20 08:53 | Outpatient (CLI) | payer MEDICAID, SELFPAY ==
[2020-02-01 11:09] VITALS: BMI 39.9
--- NOTE | 2020-05-20 08:56 | US_ITS ---
STUDY: RENAL ULTRASOUND - COMPLETE REASON FOR EXAM: Female, 44 years old. CKD STAGE 3 TECHNIQUE: Ultrasound evaluation of the kidneys was performed with real-time and static mejia-scale imaging. COMPARISON: None. FINDINGS: RIGHT KIDNEY: with mild renal atrophy. The right kidney measures 8.4 cm x 4.5 cm x 5.4 cm. There is a normal cortex of the right kidney. The renal cortex measures 1.1 cm. There is no right renal mass or cyst. There are no right renal calculi. There is no right hydronephrosis. DISTAL RIGHT URETER: There is non-visualization of the distal right ureter. There is no demonstrated right ureterovesical junction calculus. There is a visualized right ureteral jet. LEFT KIDNEY: with mild renal atrophy. The left kidney measures 8.3 cm x 4.2 cm x 4.7 cm. There is a normal cortex of the left kidney. The renal cortex measures 1.1 cm. There is no left renal mass or cyst. There are no left renal calculi. There is no left hydronephrosis. DISTAL LEFT URETER: There is non-visualization of the distal left ureter. There is no demonstrated left ureterovesical junction calculus. There is a visualized left ureteral jet. BLADDER: The distended urinary bladder has a volume of 84.2 ml. There is a normal wall thickness of the distended urinary bladder. There is no demonstrated mass within the urinary bladder. There are no demonstrated bladder calculi. Incidental note is made of an enlarged left ovary measuring 6.4 cm x 7.2 cm by 4.9 cm. Within it, there is a 3.8 cm x 4.8 cm x 4.2 cm cyst. US/Kidney and Bladder IMPRESSION: Mild bilateral renal atrophy. Enlarged left ovary contains a cyst as described. Electronically Signed: Carlos Agarwal, at 10:41 EDT , Service support ,
== END ==
PROVIDERS: PCP Family Medicine Geriatric Medicine; Referring Provider Internal Medicine Nephrology; Visit Provider Internal Medicine Nephrology
DX: N18.3 Chronic kidney disease, stage 3 (moderate) (principal)
CPT/HCPCS: 76770

== ENCOUNTER → 2020-06-26 17:19 | Outpatient (CLI) | payer MEDICAID, SELFPAY ==
[2020-02-01 11:09] VITALS: BMI 39.9
== END ==
PROVIDERS: PCP Family Medicine Geriatric Medicine; Visit Provider Internal Medicine Nephrology
DX: N18.3 Chronic kidney disease, stage 3 (moderate) (principal)
CPT/HCPCS: 87635; U0003

== ENCOUNTER → 2020-07-16 10:52 | Outpatient (CLI) | payer MEDICAID, SELFPAY ==
[2020-02-01 11:09] VITALS: BMI 39.9
[2020-07-16 12:20] LABS: Absolute Lymphocyte Count 3.41 X10^3/uL (0.83-4.51); Absolute Neutrophil Count 6.6 X10^3/uL (2.0-7.7); Basophil# 0.05 X10^3/uL; Basophil% 0.5 % (0-1); Eosinophil# 0.09 X10^3/uL; Eosinophils% 0.8 % (0-5); Hematocrit 41.5 % (37-47); Hemoglobin 12.9 g/dL (12.0-15.0); Lymphocyte # 3.41 X10^3/ul (4.0); Lymphocyte % 31.6 % (19-41); Mean Corp Hgb Conc 31.1 g/dL (32-36); Mean Corpuscular Hgb 31.4 pg (27.0-32.0); Mean Platelet Vol. 10.5 fl (6.2-12.0); Monocyte# 0.63 X10^3/uL; Monocyte% 5.8 % (0-10); NRBC Flagged by Analyzer 0 % (0-5); Neutrophil # 6.57 X10^3/uL (2.7-7.7); Platelet Count 310 K/mm3 (150-450); RBC Distribution Width CV 12.7 % (11.6-14.6); RBC Distribution Width SD 47.5 fl (35.1-43.9); Red Blood Count 4.11 M/mm3 (4.2-5.4); White Blood Count 10.8 K/mm3 (4.4-11.0)
[2020-07-16 12:37] LABS: Vitamin D,25 Hydroxy 26.3 ng/mL
[2020-07-16 12:54] LABS: ALB/GLOB Ratio 0.7 RATIO (0.9-2.4); AST(SGOT) 23 U/L (15-37); Alanine Aminotransfer ALT/SGPT 37 U/L (13-56); Albumin, Serum 3.4 g/dL (3.2-5.0); Alkaline Phosphatase 66 U/L (45-117); Anion Gap 6 (5-15); BUN 16 mg/dL (7-18); BUN/Creat Ratio 12.9 RATIO (10-20); Calcium,Total 8.5 mg/dL (8.5-10.1); Chloride 108 mmol/L (98-107); Creatinine, Serum 1.24 mg/dL (0.55-1.02); EST Glomerular Filtration Rate 50 mL/min (>60); Est Glom Filt Rate - Afr Amer 61 mL/min (>60); Globulin 4.9 g/dL (2.2-4.2); Glucose 93 mg/dL (74-106); Protein, Total 8.3 g/dL (6.4-8.2); Sodium Level 140 mmol/L (136-145); Thyroid Stim Hormone (TSH) 3.77 uIU/mL (0.358-3.74); Uric Acid 8.1 mg/dL (2.6-6.0)
== END ==
PROVIDERS: PCP Family Medicine Geriatric Medicine; Visit Provider Internal Medicine Nephrology
DX: I12.9 Hypertensive chronic kidney disease with stage 1 through stage 4 chronic kidney disease, or unspecified chronic kidney disease (principal); N18.30 Chronic kidney disease, stage 3 unspecified; E55.9 Vitamin D deficiency, unspecified; M10.9 Gout, unspecified
CPT/HCPCS: 36415; 80053; 82306; 84100; 84443; 84550; 85025

== ENCOUNTER → 2020-09-29 16:23 | Outpatient (CLI) | payer MEDICAID, SELFPAY ==
[2020-09-17 09:33] VITALS: BMI 43.7
--- NOTE | 2020-09-29 16:30 | RAD_ITS ---
STUDY: X-RAY - LEFT SHOULDER REASON FOR EXAM: Female, 44 years old. Left shoulder pain, no injury TECHNIQUE: 4 view(s) of the shoulder. COMPARISON: None. FINDINGS: Normal glenohumeral articulation. Normal acromioclavicular joint. Normal acromion. Normal humeral head and visualized proximal humerus. The soft tissue structures are unremarkable. Normal visualized pulmonary apex. RAD/Shoulder min 2 Views IMPRESSION: Normal x-ray examination of the shoulder. Electronically Signed: Carlos Agarwal, at 8:55 EST , Service support ,
== END ==
PROVIDERS: PCP Family Medicine Geriatric Medicine; Referring Provider Family Medicine Geriatric Medicine; Visit Provider Family Medicine Geriatric Medicine
DX: M25.519 Pain in unspecified shoulder (principal)
CPT/HCPCS: 73030

== ENCOUNTER → 2020-10-24 13:34 | Outpatient (CLI) | payer MEDICAID, SELFPAY ==
[2020-08-07 09:31] VITALS: BMI 41.9
[2020-09-17 09:33] VITALS: BMI 43.7
--- NOTE | 2020-10-24 13:38 | ECHOCS_ITS ---
Reason For Study: DYSPNEA Procedure This was a 2D Doppler, Color Flow transthoracic echocardiogram. The study was technically difficult. Contrast injection was performed. Exam performed in department. Left Ventricle Normal LV size. Left ventricular systolic function is normal. The estimated ejection fraction is 60 %. No regional wall motion abnormalities noted. Right Ventricle Normal RV size. Normal systolic function. Atria Normal left atrium. Mitral Valve Mitral valve not well visualized. Tricuspid Valve Normal tricuspid valve. Mild (1+) tricuspid valve insufficiency. Pulmonary artery systolic pressure is 27 mmHg. Aortic Valve The aortic valve is not well visualized. Pulmonic Valve The pulmonic valve is not well visualized. Great Vessels Normal aortic root. Pericardium/Pleural No pericardial effusion. Medication 22 gauge I.V. with prn adaptor inserted into right arm. Diluted definity 5.5ml given slow IV push to enhance endocardial definition. MMode/2D Measurements & Calculations LVIDd: 4.6 cm IVSd: 0.81 cm Ao root diam: 3.1 cm LVIDs: 3.2 cm LVPWd: 0.91 cm RVDd: 3.2 cm FS: 30.6 % LAV(MOD-bp): 39.3 ml LA A4 area: 16.0 cm2 LA dimension(2D): 4.1 cm LAV(MOD-bp) Indexed: 20.1 ml/m2 LAV(MOD-sp2): 33.6 ml LAV(MOD-sp4): 37.6 ml RA A4 area: 12.5 cm2 Time Measurements MV dec time: 0.14 sec Doppler Measurements & Calculations MV E max christo: 57.8 cm/sec Lat Peak E' Christo: 8.7 cm/sec Med Peak E' Christo: 7.7 cm/sec MV A max christo: 68.4 cm/sec E/E' lat: 6.6 E/E' med: 7.5 MV E/A: 0.85 Ao V2 max: 112.7 cm/sec LV V1 max: 94.8 cm/sec TR max christo: 244.0 cm/sec Ao max P.1 mmHg LV V1 max P.6 mmHg TR max P.8 mmHg Interpretation Summary Normal LV size. Left ventricular systolic function is normal. The estimated ejection fraction is 60 %. Pulmonary artery systolic pressure is 27 mmHg. Contrast injection was performed. Ordering Physician: Trenton Sanchez Referring Physician: ANALIA DEUTSCH Performed By: Negin Neves, CANDI, RVT
== END ==
PROVIDERS: PCP Family Medicine Geriatric Medicine; Referring Provider Nurse Practitioner Family; Visit Provider Nurse Practitioner Family
DX: R06.00 Dyspnea, unspecified (principal); R06.02 Shortness of breath; I25.10 Atherosclerotic heart disease of native coronary artery without angina pectoris; E78.5 Hyperlipidemia, unspecified; I10 Essential (primary) hypertension
CPT/HCPCS: 93306; Q9957; A4216; C8929

== ENCOUNTER → 2020-10-27 10:29 | Outpatient (CLI) | payer MEDICAID, SELFPAY ==
[2020-09-17 09:33] VITALS: BMI 43.7
[2020-10-27 12:16] LABS: Absolute Lymphocyte Count 3.13 X10^3/uL (0.83-4.51); Absolute Neutrophil Count 7.3 X10^3/uL (2.0-7.7); Basophil# 0.05 X10^3/uL; Basophil% 0.4 % (0-1); Eosinophil# 0.08 X10^3/uL; Eosinophils% 0.7 % (0-5); Hematocrit 41.4 % (37-47); Hemoglobin 12.9 g/dL (12.0-15.0); Lymphocyte # 3.13 X10^3/ul (4.0); Lymphocyte % 27.7 % (19-41); Mean Corp Hgb Conc 31.2 g/dL (32-36); Mean Corpuscular Hgb 29.5 pg (27.0-32.0); Mean Corpuscular Volume 94.7 fL (81-99); Mean Platelet Vol. 10.3 fl (6.2-12.0); Monocyte# 0.69 X10^3/uL; Monocyte% 6.1 % (0-10); NRBC Flagged by Analyzer 0 % (0-5); Neutrophil # 7.29 X10^3/uL (2.7-7.7); Neutrophil % 64.7 % (47-70); Platelet Count 351 K/mm3 (150-450); RBC Distribution Width CV 12.8 % (11.6-14.6); RBC Distribution Width SD 45.1 fl (35.1-43.9); Red Blood Count 4.37 M/mm3 (4.2-5.4); White Blood Count 11.3 K/mm3 (4.4-11.0)
[2020-10-27 12:52] LABS: Vitamin B12 472 pg/mL (211-911); Vitamin D,25 Hydroxy 19.3 ng/mL
[2020-10-27 13:21] LABS: ALB/GLOB Ratio 0.7 RATIO (0.9-2.4); AST(SGOT) 18 U/L (15-37); Alanine Aminotransfer ALT/SGPT 33 U/L (13-56); Albumin, Serum 3.2 g/dL (3.2-5.0); Alkaline Phosphatase 72 U/L (45-117); Anion Gap 5 (5-15); BUN 12 mg/dL (7-18); BUN/Creat Ratio 11.2 RATIO (10-20); Calcium,Total 8.7 mg/dL (8.5-10.1); Chloride 105 mmol/L (98-107); Creatinine, Serum 1.07 mg/dL (0.55-1.02); EST Glomerular Filtration Rate 60 mL/min (>60); Est Glom Filt Rate - Afr Amer 72 mL/min (>60); Globulin 4.6 g/dL (2.2-4.2); Glucose 82 mg/dL (74-106); Potassium 4.2 mmol/L (3.5-5.1); Protein, Total 7.8 g/dL (6.4-8.2); Sodium Level 139 mmol/L (136-145); T4 Free Direct 1.74 ng/dL (0.76-1.46); Thyroid Stim Hormone (TSH) 0.43 uIU/mL (0.358-3.74); Uric Acid 6.7 mg/dL (2.6-6.0)
== END ==
PROVIDERS: Internal Medicine Endocrinology, Diabetes & Metabolism; PCP Family Medicine Geriatric Medicine; Visit Provider Family Medicine Geriatric Medicine
DX: I10 Essential (primary) hypertension (principal); E56.8 Deficiency of other vitamins; M10.9 Gout, unspecified; E03.9 Hypothyroidism, unspecified; R20.2 Paresthesia of skin
CPT/HCPCS: 80053; 82306; 82607; 84439; 84443; 84550; 85025

== ENCOUNTER → 2020-11-10 11:24 | Outpatient (CLI) | payer MEDICAID, SELFPAY ==
[2020-10-28 12:25] VITALS: BMI 41.5
--- NOTE | 2020-11-10 16:38 | STRESSREP ---
Stress Test Report Exercise stress test. 45-year-old lady with a history of chest pain. Medications hydrochlorothiazide, lisinopril, rosuvastatin. Stress protocol: Resting EKG demonstrates normal sinus rhythm with a rate of 70 bpm normal intervals are noted resting blood pressure is 126/82 mmHg. The patient exercised according to the regular Ramsey protocol for a total duration of 3 minutes and 6 seconds. The maximum heart rate attained was 130 bpm which was 73% of max impacted heart rate the maximum workload was 4.7 metabolic equivalents. At rest there were no ST or T wave changes noted to suggest ischemia at peak exercise upsloping ST changes were noted with no meet the criteria for ischemia. No clinical angina was noted the test was terminated due to dyspnea and unable to walk uphill. The peak blood pressure is 146/76 mmHg. This was a normal blood pressure response to exercise. Conclusion: Exercise stress test with no EKG criteria for ischemia at a low workload. The low workload may affect sensitivity for detection of ischemia.
== END ==
PROVIDERS: PCP Family Medicine Geriatric Medicine; Referring Provider Internal Medicine Cardiovascular Disease; Visit Provider Internal Medicine Cardiovascular Disease
DX: R07.9 Chest pain, unspecified (principal)
CPT/HCPCS: 93017

== ENCOUNTER 2020-12-18 09:30 | Outpatient (RCR) | payer MEDICAID, SELFPAY ==
[2020-10-28 12:25] VITALS: BMI 41.5
--- NOTE | 2020-11-19 11:09 | HP.PTEVAL ---
Patient's Visit Information ROMAIN WESLEY is a 45 year old F referred to Physical Therapy by Dr. Carlos Chris MD with a diagnosis of RIGHT KNEE PAIN. Date of Evaluation: 11/19/20 Physical Therapist: Alana Fitzgerald PT, Cert MDT - Visit Plan Frequency: 2-3x /Week Duration: 4-6 Weeks Plan: GAIT TRAINING WITH A STRAIGHT CANE NEEDED. MAY NEED TO CONSIDER AQUATIC THERAPY IF UNABLE TO TOLERATED LAND. THIS WAS DISCUSSED WITH PATIENT AND SHE IS AGREEABLE. RIGHT KNEE US, E-STIM WITH MH OR CP, ROM, STRETCHING AND STRENGTHENING TO HELP MEET SET GOALS. 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 Disability: YES - BIPOLAR. Present symptoms: RIGHT KNEE AND UPTON PAIN. RIGHT UPTON SWELLING. CLICKING AND GRINDING IN RIGHT KNEE. Present since: FOUR YEARS AGO. Pain Scale: WORST 10/10, LEAST 0/10. Currently: 8/10. Commenced as a result of: DUE TO FALL ON STEPS AT [employer]. Symptoms at onset: RIGHT KNEE. Worse: STANDING DOING DISHES, WALKING UP AND DOWN STEPS, WALKING IN [employer]ERY STORE. STANDING AND WALKING MAINLY BUT CAN BE LYING DOWN AND IT STARTS HURTING FOR NO APPARENT REASON. TURNING OVER IN BED. Better: ABSOLUTELY NOTHING. Disturbed sleep: YES. Previous history/Previous treatment: SINCE THE FALL: STITCHES INSIDE AND OUT INITIALLY. CORTISONE INJECTIONS FROM DR. CHRIS. REPORTS THAT NONE OF THE SHOTS YESTERDAY HAVE NOT HELPED. PAIN MED SHOTS. CURRENTLY ON STEROIDS, MUSCLE RELAXER, STOMACH PILL AND NAPROXEN. PT CONSLULT. Gait: I LIMP AND IT IS VERY PAINFUL TO TRY TO WALK. IT IS CLICKING, GRINDING AND POPPING. GOING UP AND DOWN STEPS IS HORRIBLE. TWO SETS OF STEPS TO GO UPSTAIRS TO BR AND BATH. Accidents: NO. Unexplained weight loss: NO. Imaging: RECENT RIGHT KNEE X-RAYS - NORMAL. STATES DR. CHRIS TOLD HER SHE NEEDS AN MRI OR CAT SCAN AND HE IS REFERRING HER TO DR. MANRIQUE. STATES SHE HAS HAD AN US TO TEST FOR R LE BLOOD CLOT AND IT WAS NORMAL. PMH: BIPOLAR DISORDER, HTN, HYPOTHYROIDISM, KIDNEY DZ, HEART DISEASE. Recent major surgery: NO - Objective Sitting Posture/Standing Posture: POOR. Other Observations: THIS PATIENT AMBULATES INDEP'LY INTO PT WITHOUT ANY ASSISTIVE DEVICES LIMPING ON HER RIGHT LE. GAIT IS SLOW AND ANTALGIC. STATES SHE HAS NOT BEEN USING ANY ASSISTIVE DEVICES. STATES HER KNEE IS GETTING WORSE. Motor deficit: LLE STRENGTH 5/5 WITH MMT'ING. RIGHT LE: MMT'ING IS PAIN-LIMITED. GROSSLY: HIP 3+/5, KNEE EXT 3-/5, KNEE FLEX 3-/5, ANKLE 4-/5. FULL AROM OF TOES. Sensory deficit: ANTIONETTE LE LIGHT TOUCH SENSATION INTACT AND SYMMETRICAL. ROM deficit: RIGHT KNEE ROM IN SUPINE WITH A HEEL SLIDE = -5 DEG EXT TO 94 DEG FLEX. Postural strength: POOR. Palpation: PATIENT IS HYPERSENSATIVE TO TOUCH SURROUNDING THE RIGHT KNEE AND INTO UPTON. SHE HAS MODERATE EDEMA AND A DENT IN HER RIGHT ANTERIOR UPTON REGION SOFT TISSUE. TREATMENT: NEUROMUSCULAR REEDUCATION - RETRAINING OF MVMT AND POSTURE FOR SITTING, LYING AND STANDING ACTIVITIES. - Goals Goal 1:: DECREASE C/O RIGHT KNEE PAIN Goal Time Frame: 4-6 Weeks Goal 2:: IMPROVE FUNCTIONAL ROM OF RIGHT LE Goal Time Frame: 4-6 Weeks Goal 3:: IMPROVE FUNCTIONAL STRENGTH OF RIGHT LE Goal Time Frame: 4-6 Weeks Goal 4:: PATIENT WILL BE INDEP WITH A HEP FOR CONTINUED IMPROVEMENT ONCE FORMAL PHYSICAL THERAPY CONCLUDES Goal Time Frame: 4-6 Weeks - Anticipated Interventions Patient/Client Instruction: Educate patient on: Condition, Plan of Care, Risk Factors, Benefits of Fitness Program For the Purpose of:: To improve self management Therapeutic Exercise to Include: Strength training, Balance training, Flexibilty training, Gait and locomotor training, Neuromotor development, In an aquatic setting, Active ROM For the Purpose of:: To decrease pain, To decrease swelling/inflammation, To improve nutrient delivery to tissue, To improve muscle performance and motor function, To increase tolerance to activity/condition/position, To improve ability of physical actions for home/community/work/leisure, To improve gait and locomotor functions TENS: Yes Cryotherapy (ice pack, ice massage): Yes Thermo therapy (hot pack): Yes Ultrasound (thermal/non thermal): Yes For the Purpose of:: To decrease pain, To decrease swelling/inflammation, To improve nutrient delivery to tissue Thank you for the opportunity to evaluate your patient. For Medicare and Medicare HMO plans, please review the plan of care and approve it. It will need to be FAXED BACK to us at [phone] for Medicare purposes. For Medicare only, by signing this I certify the plan of care. Please let me know if there are questions or concerns regarding this plan of care. Physician Signature: Date:
--- NOTE | 2020-12-18 10:22 | HP.PTREVAL_ITS ---
Dr. Carlos Chris MD, It has been my pleasure to treat ROMAIN WESLEY over the last 7 visits for RIGHT KNEE PAIN. Please see the progress note below for an update on the physical therapy plan of care! Subjective: PATIENT REPORTS SHE IS THE SAME. STATES HER KNEE STILL SWELLS UP ON HER. 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 STILL GETTING UP TO 9/10 RIGHT KNEE PAIN. Objective/Function: PATIENT WAS SEEN TODAY FOR RE-ASSESSMENT OF PROGRESS TOWARD THE SET PT GOALS AND THE NEED FOR FURTHER PHYSICAL THERAPY VS READINESS FOR DISCHARGE. SHE REPORTS ZERO IMPROVEMENT. SHE CONTINUES TO HAVE SWELLING, DECREASED ROM AND DECREASED STRENGTH OF THE RIGHT KNEE BUT THESE HAVE ALL SHOWN SOME IMPROVEMENT OBJECTIVELY. HER REHAB ON LAND HAS BEEN PAIN LIMITED AND SHE IS A GOOD CANDIDATE FOR A TRIAL OF AQUATIC THERAPY FOR EX IN A REDUCED WEIGHT BEARING ENVIRONMENT AND SHE IS AGREEABLE. UPON EXAM TODAY: THIS PATIENT AMBULATES INDEP'LY INTO PT WITHOUT ANY ASSISTIVE DEVICES LIMPING ON HER RIGHT LE. GAIT IS SLOW AND ANTALGIC. DECREASED STRIDE LENGTH. STATES HER KNEE IS THE SAME. Motor deficit: LLE STRENGTH 5/5 WITH MMT'ING. RIGHT LE: MMT'ING IS PAIN-LIMITED. GROSSLY: HIP 3+/5, KNEE EXT 3+/5, KNEE FLEX 3+/5, ANKLE 5/5. Sensory deficit: ANTIONETTE LE LIGHT TOUCH SENSATION INTACT BUT HYPERSENSATIVITY REPORTED WITH TESTING OF RIGHT KNEE REGION. ROM deficit: RIGHT KNEE ROM IN SUPINE WITH A HEEL SLIDE = FULL EXT TO 110 DEG FLEX TODAY. Postural strength: POOR. Palpation: SHE HAS MINIMAL EDEMA IN THE RIGHT KNEE REGION. Plan Plan: CONTINUE PT 2X'S A WK X 2-3 WEEKS FOR TRIAL OF AQUATIC THERAPY FOR R KNEE PAIN RELIEF, ROM, STRETCHING AND STRENGTHEING. PATIENT AGREEABLE. Goals Goal 1:: DECREASE C/O RIGHT KNEE PAIN Goal Time Frame: 4-6 Weeks Goal Progress: Not Progressing Goal 2:: IMPROVE FUNCTIONAL ROM OF RIGHT LE Goal Time Frame: 4-6 Weeks Goal Progress: Progressing Goal 3:: IMPROVE FUNCTIONAL STRENGTH OF RIGHT LE Goal Time Frame: 4-6 Weeks Goal Progress: Progressing Goal 4:: PATIENT WILL BE INDEP WITH A HEP FOR CONTINUED IMPROVEMENT ONCE FORMAL PHYSICAL THERAPY CONCLUDES Goal Time Frame: 4-6 Weeks Goal Progress: Progressing Anticipated Interventions Patient/Client Instruction: Educate patient on: Condition, Plan of Care, Risk Factors, Benefits of Fitness Program For the Purpose of:: To improve self management Therapeutic Exercise to Include: Strength training, Balance training, Flexibilty training, Gait and locomotor training, Neuromotor development, In an aquatic setting, Active ROM For the Purpose of:: To decrease pain, To decrease swelling/inflammation, To im prove nutrient delivery to tissue, To improve muscle performance and motor function, To increase tolerance to activity/condition/position, To improve ability of physical actions for home/community/work/leisure, To improve gait and locomotor functions TENS: Yes Cryotherapy (ice pack, ice massage): Yes Thermo therapy (hot pack): Yes Ultrasound (thermal/non thermal): Yes For the Purpose of:: To decrease pain, To decrease swelling/inflammation, To improve nutrient delivery to tissue Please do not hesitate to contact me at [phone] by phone or if you have questions or concerns regarding this new plan of care! Sincerely, Alana Fitzgerald, PT, Cert MDT
--- NOTE | 2021-01-04 19:31 | HP.PT.NRP ---
ROMAIN WESLEY was seen in my office for initial evaluation on 11/19/20. The following Plan of Care was established for this patient: Initial Frequency: 2-3x /Week Initial Duration: 4-6 Weeks Patient/Client Instruction: Educate patient on: Condition, Plan of Care, Risk Factors, Benefits of Fitness Program For the Purpose of:: To improve self management Therapeutic Exercise to Include: Strength training, Balance training, Flexibilty training, Gait and locomotor training, Neuromotor development, In an aquatic setting, Active ROM For the Purpose of:: To decrease pain, To decrease swelling/inflammation, To improve nutrient delivery to tissue, To improve muscle performance and motor function, To increase tolerance to activity/condition/position, To improve ability of physical actions for home/community/work/leisure, To improve gait and locomotor functions TENS: Yes Cryotherapy (ice pack, ice massage): Yes Thermo therapy (hot pack): Yes Ultrasound (thermal/non thermal): Yes For the Purpose of:: To decrease pain, To decrease swelling/inflammation, To improve nutrient delivery to tissue This patient was last seen in our office 12/18/20. Pertinent comments regarding their Physical therapy will appear below: This patient has not returned to Physical Therapy and is appropriate to return to MD for further follow-up as needed. At this point I will be discontinuing this patient from physical therapy. I would be happy to see this patient again in the future if found appropriate by the physician. Thank you! Alana Fitzgerald, PT, Cert MDT
== END 2020-12-18 19:00 | disposition home or self-care (01) ==
LOC: PT 09:30
PROVIDERS: PCP Family Medicine Geriatric Medicine; Referring Provider Family Medicine Geriatric Medicine; Visit Provider Family Medicine Geriatric Medicine
DX: M25.561 Pain in right knee (principal)
CPT/HCPCS: 97035; 97110; 97162; 97164; 97530

== ENCOUNTER → 2021-01-19 08:02 | Outpatient (CLI) | payer MEDICAID, SELFPAY ==
[2021-01-05 09:26] VITALS: BMI 41.5
--- NOTE | 2021-01-19 08:04 | MRI_ITS ---
STUDY: MRI RIGHT KNEE REASON FOR EXAM: Female, 45 years old. Pain. TECHNIQUE: Standardized fat and water weighted pulse sequences were obtained in all 3 orthogonal planes. COMPARISON: X-ray dated 03/26/2020. FINDINGS: Chondromalacia at the patellar apex (axial image 9 series 2) extending into the lateral facet. Lateral compartment articular cartilage preserved. Medial compartment articular cartilage preserved. No acute fracture, dislocation or cortical destruction. Discoid lateral meniscus without tear. Medial meniscus intact. Mild anterior cruciate ligament degeneration (sagittal image 13 series 4). Normal posterior cruciate ligament. Small nonspecific intracondylar notch cyst. Small volume joint effusion. Tiny collapsed popliteal cyst. Minimal soft tissue swelling. Normal medial collateral ligamentous complex (MCL). Normal distal semimembranosus, gracilis and semitendinosus tendons. Normal proximal tibiofibular articulation. Normal lateral collateral (fibular) ligament. Normal popliteus tendon. Normal biceps femoris tendon. Normal medial and lateral patellar retinaculum. Normal quadriceps tendon. Normal patellar tendon. Normal Hoffa''s fat pad. MRI/Lower Ext Joint Only (Routine) IMPRESSION: Discoid lateral meniscus without tear Mild ACL degeneration and small intracondylar notch cyst without tear Patellofemoral chondromalacia Small joint effusion, tiny collapsed popliteal cyst and minimal swelling Electronically Signed: Josue Barreto DO at 9:34 EDT Tel , Service support ,
== END ==
PROVIDERS: PCP Family Medicine Geriatric Medicine; Referring Provider Family Medicine Geriatric Medicine; Visit Provider Family Medicine Geriatric Medicine
DX: M25.569 Pain in unspecified knee (principal); M70.50 Other bursitis of knee, unspecified knee; S83.281A Other tear of lateral meniscus, current injury, right knee, initial encounter
CPT/HCPCS: 73721

== ENCOUNTER → 2021-01-27 10:31 | Outpatient (CLI) | payer MEDICAID, SELFPAY ==
[2021-01-27 10:45] LABS: Absolute Lymphocyte Count 3.76 X10^3/uL (0.83-4.51); Absolute Neutrophil Count 7.8 X10^3/uL (2.0-7.7); Basophil# 0.09 X10^3/uL; Basophil% 0.7 % (0-1); Eosinophil# 0.12 X10^3/uL; Hematocrit 44.6 % (37-47); Lymphocyte # 3.76 X10^3/ul (0.83-4.51); Lymphocyte % 30.6 % (19-41); Mean Corp Hgb Conc 31.4 g/dL (32-36); Mean Corpuscular Hgb 30.5 pg (27.0-32.0); Mean Corpuscular Volume 97.2 fL (81-99); Mean Platelet Vol. 10.5 fl (6.2-12.0); Monocyte% 4.1 % (0-10); NRBC Flagged by Analyzer 0 % (0-5); Neutrophil # 7.75 X10^3/uL (2.7-7.7); Neutrophil % 63.1 % (47-70); Platelet Count 347 K/mm3 (150-450); RBC Distribution Width CV 13.2 % (11.6-14.6); RBC Distribution Width SD 47.6 fl (35.1-43.9); Red Blood Count 4.59 M/mm3 (4.2-5.4); White Blood Count 12.3 K/mm3 (4.4-11.0)
[2021-01-27 11:16] LABS: Vitamin D,25 Hydroxy 15.4 ng/mL
[2021-01-27 11:23] LABS: ALB/GLOB Ratio 0.8 RATIO (0.9-2.4); AST(SGOT) 23 U/L (15-37); Alanine Aminotransfer ALT/SGPT 27 U/L (13-56); Albumin, Serum 3.3 g/dL (3.2-5.0); Alkaline Phosphatase 66 U/L (45-117); Anion Gap 6 (5-15); BUN 8 mg/dL (7-18); BUN/Creat Ratio 7.7 RATIO (10-20); Calcium,Total 8.4 mg/dL (8.5-10.1); Chloride 104 mmol/L (98-107); Creatinine, Serum 1.04 mg/dL (0.55-1.02); EST Glomerular Filtration Rate 61 mL/min (>60); Est Glom Filt Rate - Afr Amer 74 mL/min (>60); Globulin 4.4 g/dL (2.2-4.2); Glucose 88 mg/dL (74-106); Potassium 4.2 mmol/L (3.5-5.1); Protein, Total 7.7 g/dL (6.4-8.2); Sodium Level 137 mmol/L (136-145)
== END ==
PROVIDERS: PCP Family Medicine Geriatric Medicine; Visit Provider Family Medicine Geriatric Medicine
DX: I10 Essential (primary) hypertension (principal); E55.9 Vitamin D deficiency, unspecified
CPT/HCPCS: 36415; 80053; 82306; 84443; 85025

== ENCOUNTER 2021-02-10 05:56 | Day surgery (SDC) | payer MEDICAID, SELFPAY ==
[2021-01-05 09:26] VITALS: BMI 41.5
[2021-02-10] VITALS (8 sets, daily range): BP systolic 101–130; BP diastolic 66–95; PULSE 73–88; RESP 16–18; TEMP 35.9–36.6; O2SAT 95–99; BMI 43.5
[2021-02-10] MEDS: Lactated Ringers 1,000 ML 100 ML IV (06:37)
[2021-02-10] MEDS: Bupiv/Epi 0.25% 30 ML Vial (06:52)
--- NOTE | 2021-02-10 07:10 | HP.PCM_ITS ---
History and Physical [id number]: ROMAIN WESLEY [facility] #:[id number]:1975 Provider:Dr. Tariq Qiu, Age/Sex: 45/F Location:[place]:Signed Intake Intake Visit Reasons: RIGHT KNEE Chief Complaint: establish care for hypothyroidism Is patient in pain?: Yes Pain scale (1-10): 5 Allergies citalopram Allergy (Verified 01/21/21 08:25) unknown codeine Allergy (Verified 01/21/21 08:25) Unknown lithium Allergy (Verified 01/21/21 08:25) Unknown Medications Hydrochlorothiazide 12.5 mg PO DAILY 01/17/17 [History Confirmed 01/21/21] rosuvastatin 40 mg tablet 40 mg PO DAILY #30 tab 08/07/20 [Rx Confirmed 01/21/21] alprazolam 0.25 mg tablet 0.25 mg PO DAILY PRN 08/15/20 [History Confirmed 01/21/21] albuterol sulfate 90 mcg/actuation aerosol inhaler 2 puff INHALATION Q4H PRN #1 device 09/17/20 [Rx Confirmed 01/21/21] levothyroxine 200 mcg tablet 200 mcg PO .M-Sat tab 10/27/20 [History Confirmed 01/21/21] lisinopril 10 mg tablet 10 mg PO DAILY #90 tab 10/28/20 [Rx Confirmed 01/21/21] paroxetine HCl 40 mg tablet 40 mg PO DAILY 10/28/20 [History Confirmed 01/21/21] [facility] Medical History (Updated 10/28/20 @ 14:46 by Karlene Huber) Coronary artery calcification (Chronic) Essential (primary) hypertension (Chronic) Hyperlipidemia (Chronic) Hypothyroidism (Chronic) Postablative hypothyroidism (Chronic) BALBINA (obstructive sleep apnea) (Chronic) Obesity (Chronic) Anxiety (Chronic) Arthritis (Chronic) Asthma (Chronic) Asthma (Chronic) DDD (degenerative disc disease), thoracic (Chronic) Depression (Chronic) Kidney disease (Chronic) Osteoarthritis (Chronic) Paresthesia (Chronic) Segmental and somatic dysfunction of lumbar region (Chronic) Segmental and somatic dysfunction of thoracic region (Chronic) Appendicitis (Resolved) Surgical History H/O tooth extraction (Resolved) History of appendectomy (Resolved) History of section, classical (Resolved) History of eyelid surgery (Resolved) History of hysterectomy (Resolved) Family History (Updated 10/28/20 @ 14:41 by Karlene Huber) Mother Diabetes Breast cancer Anemia Depression Hypertension Father Diabetes Heart disease Hypertension CVA (cerebral vascular accident) in his 40'2 from CVA Hyperlipemia Brother Asthma Hypertension Sister Depression Seizures Grandmother Diabetes Thyroid disorder Heart disease Grandfather Diabetes Thyroid disorder Heart disease Aunt Heart disease CAD (coronary artery disease) stents Uncle Heart disease CAD (coronary artery disease) stents Other Arthritis Social History (Updated 01/21/21 @ 09:[address] Tariq Qiu DO) second hand exposure: No alcohol intake: never substance use type: does not use caffeine: Yes frequency: does not exercise HPI RIGHT KNEE: Details: Parts of this documentation were recorded by a scribe, this documentation accurately reflects the service provided and the decisions made by me, Dr. Tariq Qiu DO 01/21/21 0753. ROMAIN WESLEY is a 45 year old F here today for an MRI review of the right knee. She continues to have anterior lateral knee pain. She continues to have popping and clicking of the knee that is painful. Has had this pain for many year but has gotten worse. Denies numbness, tingling or other associated symptoms. ROS Musc Reports joint pain, Reports joint swelling Skin/Breast Reports system reviewed and no additional complaints, except as docu Neuro Yes system reviewed and no additional complaints, except as docu Ortho Exam General General: Yes no acute distress Neurologic: Yes alert, Yes oriented x3 Psychologic: Yes reasonable and appropriate Right Knee Skin/Wound: No erythema, No ecchymosis, No swelling Homans Sign: No Knee ROM: Yes ROM-Extension -20 to 0, Yes ROM-Flexion 0-140 KNEE: no joint effusion Right Knee Skin/Wound: Yes CDI, No erythema, No ecchymosis, No swelling Knee ROM: Yes ROM-Flexion 0-140 (100) Examination: Yes Med jt line tenderness, Yes Lat jt line tenderness, Yes Pain with flexion, Yes Bienvenido's Test (click, lateral), Yes TTP Pes Anserine Stability: NML: Anterior Drawer, NML: Whitney, NML: Posterior Drawer, NML: Valgus 0, NML: Valgus 30, NML: Varus 0, NML: Varus 30 Patella Grind: Yes KNEE: anterior knee pain with valgus, a Supplemental Info 01/19/2021 MRI right knee: Discoid lateral meniscus mild ACL degeneration patellofemoral chondromalacia small joint effusion. Assessment & Plan Problems 1. 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 Tear of lateral meniscus of right knee, current, unspecified tear type, subsequent encounter M58.226F Plan Personally reviewed patients MRI of the right knee. Patient educated that she has a discord lateral meniscus. Educated that this is a variant that is seen in the population, this can cause popping of the knee. Educated that this is something that she was born with. There is a small tear of this lateral meniscus. There is a surgical procedure which is to remove the middle of the discord of the meniscus (saucerization) to make the meniscus more stable. If just the saucerization is preformed then she will be WBAT after surgery but if the meniscus is repaired then she will be NWB for 6 weeks post op. Reviewed the pre-operative plans with the patient. Risks and benefits of the procedure were fully explained, including but not limited to infection, neurovascular injury, continued pain, arthritis, stiffness, need for further surgery, re-injury, DVT, PE, general risks of anesthesia, and loss of limb or life. The patient understands all the risks and does wish to proceed with written consent for right knee arthroscopic lateral meniscus saucerization possible repair, surgery as indicated. DOS set for 02/10/2021. Follow up 2 weeks post op or sooner if pain, swelling, numbness or associated symptoms, or concerns develop. All questions answered. Patient in agreement of plan. 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 There are no clinical changes since date of exam
[2021-02-10] MEDS: Cefazolin 2 GM in 0.9% Normal Saline 100 ML IV (07:30)
[2021-02-10] MEDS: Epinephrine (1 mg/ml) 1 MG/ML VIAL (08:20)
--- NOTE | 2021-02-10 08:20 | PCM.DC ---
Discharge Instructions Outpatient Procedure Reason For Visit: RT KNEE ARTHROSCOPY, POSS REPAIR Diet Discharge Diet: No restrictions Activity Weight Bearing Status: Weight bearing as tolerated Dressing / Incision Call your doctor if you observe: Shortness of breath and Chest pain Change Dressing in: 2 days Remove Dressing in: 2 days Cleanse incision/area with: Keep Dressing Clean & Dry Additional Dressing/Incision Instructions:: Ice and elevate next 72 hours .keep dressing on clean and dry for 48 hours then may remove begin showering daily but do not submerge in tub or pool. After shower may apply Band-Aids . Encourage knee range of motion weightbearing as tolerated, use crutches until confident in knee then may discontinue. No strenuous activity. When not ambulating keep iced and elevated next 72 hours. Do not mix pain medication with recreational drugs or alcohol only take as prescribed can be addictive and abusive, call with any questions or concerns. Follow Up Care Please Follow Up With: Tariq Qiu DO When: 2 weeks Test Results: Test results from this visit will be discussed in further detail at your follow-up appointment, if applicable. Discharge Plan Admission Attending Provider: Tariq Qiu Primary Care Provider: Carlos Chris Chi Instructions Patient Instructions: ED Chest Pain, Noncardiac Discharge Orders/Prescriptions Prescriptions: New oxycodone 5 mg capsule 5 - 10 mg PO Q4H PRN (Reason: pain) 5 Days Qty: 40 RF: 0 No Action rosuvastatin [Crestor] 40 mg tablet 40 mg PO DAILY Qty: 30 RF: 0 paroxetine HCl 40 mg tablet 40 mg PO DAILY RF: 0 lisinopril 10 mg tablet 10 mg PO DAILY Qty: 90 RF: 3 hydrochlorothiazide 12.5 MG capsule 12.5 mg PO DAILY RF: 0 levothyroxine 200 mcg tablet 200 mcg PO .M-Sat RF: 0 albuterol sulfate 90 mcg/actuation HFA aerosol inhaler 2 puff inhalation Q4H PRN (Reason: shortness of breath or wheezing) Qty: 1 RF: 6 Referrals: Carlos Chris Chi, MD [Primary Care Provider] - Disposition Discharge Orders: Discharge Patient (Routine); Ordered 02/10/21 Ordered By: Dr. Tariq Qiu
[2021-02-10] MEDS: MethylPREDNISolone Acetate 40 MG/ML Vial IM (08:21)
[2021-02-10] MEDS: Bupivacaine Mpf 0.5% 30 ML VIAL (08:21)
[2021-02-10] MEDS: oxyCODONE 5 MG Tablet PO (10:21)
--- NOTE | 2021-02-11 16:32 | PCM.OPRPT ---
Report of Operation Description of Surgical Findings:: Preop diagnosis:Right knee discoid lateral meniscus Postoperative diagnosis: Discoid lateral meniscus small grade 3 chondral flap medial femoral condyle Procedure: Right knee partial lateral meniscectomy saucerization Anesthesia: General Estimated blood loss: [5] mL Tourniquet time:25 minutes 300 mmHg Complications: none Indication for procedure: 45-year-old female patient who has had ongoing painful mechanical symptoms of the lateral side of her knee she did have MRI evidence of a discoid lateral meniscus the patient did wish to proceed with an elective arthroscopic surgery to attempt to alleviate the symptoms. Risk benefits and alternatives of the procedure were reviewed including risk of bleeding infection nerve artery tissue damage need for further surgery continued pain and expected postoperative course. Procedure: The patient was met in the preoperative holding area. The operative extremity was identified by both patient and physician and family and marked. Patient was brought back to the operating room on a wheeled cart and transferred to the operating table in the supine position. Anesthesia was started. A well-padded tourniquet was placed on the operative extremity. A lower extremity leg barahona was secured to the operative extremity. The contralateral extremity was well-padded and the end of the bed was flexed to 90 degrees. The patient was prepped and draped in the usual sterile fashion. A timeout was called to ensure the proper patient, procedure, and extremity were being contemplated. 0.5% Marcaine with epinephrine was injected into the planned incisional areas under the skin only. An Esmarch was used to exsanguinate the extremity and the tourniquet was inflated. An 11 blade scalpel was used to make a stab incision in the anterior lateral portal. The arthroscope was inserted into the intercondylar notch and inflow and outflow tubes were attached. Arthroscopic visualization began. The medial compartment was entered. An 18-gauge spinal needle was used to establish the placement for anterior medial portal. An 11 blade scalpel was used to make a stab incision. Blunt probe was inserted followed by a meniscal probe. There was a grade 3 small cartilage flap of the medial femoral condyle which was debrided with a shaver the ACL was [found to be intact]. The lateral compartment was entered complete discoid lateral meniscus stable to probing in the periphery no tearing with the use of arthroscopic biting instruments shaver and ArthroCare wand saucerization of the lateral meniscus was performed the remainder of the meniscal tissue was probed did have a smooth edge upon completion The arthroscope was switched to the medial portal to complete the procedure. The medial and lateral gutters were inspected and [were free of loose bodies]. The patellofemoral joint was inspected [and was free of cartilage pathology]. [There was good patellar tracking.] The knee was thoroughly irrigated and drained. An intra-articular injection with 5 cc 0.5% Marcaine plain [and 40 mg of Depo-Medrol] was injected intra-articularly. The arthroscope was removed the portals were closed with 3-0 nylon arthroscopic stitches. Followed by Xeroform 4 x 4's ABDs web roll and an Ramon wrap. The tourniquet was let down and the drapes were removed. All counts were correct. The patient was brought back to the PACU in stable condition. 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
== END 2021-02-10 11:28 ==
LOC: SDC 05:56 → AC 05:57
PROVIDERS: PCP Family Medicine Geriatric Medicine; Referring Provider Orthopaedic Surgery; Visit Provider Orthopaedic Surgery
PROC: (CPT 29870; principal; 2021-02-10 07:10)
DX: S83.281D Other tear of lateral meniscus, current injury, right knee, subsequent encounter (principal); Q68.6 Discoid meniscus; M22.41 Chondromalacia patellae, right knee; M25.461 Effusion, right knee; E03.9 Hypothyroidism, unspecified; G47.33 Obstructive sleep apnea (adult) (pediatric); E78.5 Hyperlipidemia, unspecified; F41.9 Anxiety disorder, unspecified; J45.909 Unspecified asthma, uncomplicated; F32.9 Major depressive disorder, single episode, unspecified
CPT/HCPCS: 01400; 29881; J7120; J2405

== ENCOUNTER → 2021-03-13 09:28 | Outpatient (CLI) | payer MEDICAID, SELFPAY ==
[2021-02-10 06:24] VITALS: BMI 43.5
--- NOTE | 2021-03-13 09:37 | RAD_ITS ---
STUDY: X-RAY - ABDOMEN/PELVIS REASON FOR EXAM: Female, 45 years old. FECAL IMPACTION OF COLON TECHNIQUE: Single AP view of the abdomen / pelvis. COMPARISON: None. FINDINGS: Normal visualized lung bases. There is an unremarkable bowel gas pattern. There is no demonstrated free abdominal air. The visualized liver, spleen and kidneys are grossly normal in size and morphology. Normal soft tissue structures. Normal visualized osseous structures. RAD/Abdomen Single View IMPRESSION: Unremarkable x-ray examination of the abdomen and pelvis. Electronically Signed: Jesusita Miguel MD at 1:45 EDT , Service support ,
[2021-03-13 12:22] LABS: Absolute Lymphocyte Count 3.05 X10^3/uL (0.83-4.51); Absolute Neutrophil Count 6.4 X10^3/uL (2.0-7.7); Basophil# 0.08 X10^3/uL; Basophil% 0.8 % (0-1); Eosinophil# 0.17 X10^3/uL; Eosinophils% 1.6 % (0-5); Hematocrit 38.2 % (37-47); Hemoglobin 12.3 g/dL (12.0-15.0); Lymphocyte # 3.05 X10^3/ul (0.83-4.51); Lymphocyte % 29.4 % (19-41); Mean Corp Hgb Conc 32.2 g/dL (32-36); Mean Corpuscular Hgb 30.3 pg (27.0-32.0); Mean Corpuscular Volume 94.1 fL (81-99); Mean Platelet Vol. 10.7 fl (6.2-12.0); Monocyte% 5.8 % (0-10); NRBC Flagged by Analyzer 0 % (0-5); Neutrophil # 6.44 X10^3/uL (2.7-7.7); Neutrophil % 61.9 % (47-70); Platelet Count 354 K/mm3 (150-450); RBC Distribution Width CV 12.6 % (11.6-14.6); RBC Distribution Width SD 43.8 fl (35.1-43.9); Red Blood Count 4.06 M/mm3 (4.2-5.4); White Blood Count 10.4 K/mm3 (4.4-11.0)
== END ==
LOC: POLAB3 09:29 → RAD 09:37
PROVIDERS: PCP Family Medicine Geriatric Medicine; Referring Provider Family Medicine Geriatric Medicine; Visit Provider Family Medicine Geriatric Medicine
DX: D64.9 Anemia, unspecified (principal); K56.41 Fecal impaction
CPT/HCPCS: 36415; 74018; 85025

== ENCOUNTER 2021-04-11 10:00 | Emergency (ER) | payer MEDICAID, SELFPAY ==
[2021-04-06 12:56] VITALS: BMI 43.2
[2021-04-11 10:01] VITALS: BP 126/70; PULSE 89; RESP 18; TEMP 36.2; O2SAT 94; BMI 37.8
[2021-04-11 10:11] VITALS: O2SAT 94
[2021-04-11 10:14] VITALS: O2SAT 94
--- NOTE | 2021-04-11 10:47 | EDS_ITS ---
HPI History of Present Illness Chief Complaint: Cold Sx Informant: patient Narrative Narrative: Patient is a 45-year-old female who presents to the emergency department for URI symptoms. She states initially started yesterday with sneezing. She thought she was just having allergies. Today she developed a cough, sore throat and ear pressure bilaterally. She denies known sick contacts. She states she has been vaccinated for Covid. No painful swallowing. No rashes. She did have an episode of vomiting this morning but her nausea has since resolved. No diarrhea. She has not had any rashes. No urinary symptoms. Patient states she typically gets these urinary symptoms once a year around this time. She has not taken anything for this yet. Patient denies a smoking history. She does have asthma. She denies any chest pain or shortness of breath. 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 Irregular heart beat Kidney disease Obesity BALBINA (obstructive sleep apnea) Osteoarthritis Pain aggravated by walking Paresthesia Postablative hypothyroidism Segmental and somatic dysfunction of thoracic region Wears glasses Home Medications hydrochlorothiazide 12.5 mg PO DAILY 01/17/17 [History Last Taken 01/21/19] rosuvastatin 40 mg tablet 40 mg PO DAILY #30 tab 08/07/20 [Rx Last Taken Unknown] levothyroxine 200 mcg tablet 200 mcg PO .M-Sat tab 10/27/20 [History Last Taken 02/10/21 05:00] lisinopril 10 mg tablet 10 mg PO DAILY #90 tab 10/28/20 [Rx Last Taken 02/10/21 05:00] paroxetine HCl 40 mg tablet 40 mg PO DAILY 10/28/20 [History Last Taken Unknown] albuterol sulfate 90 mcg/actuation aerosol inhaler 2 puff INHALATION Q4H PRN #1 device 02/09/21 [Rx Last Taken Unknown] alprazolam 0.5 mg tablet 0.5 mg PO QHS PRN 04/06/21 [History Last Taken Unknown] benzonatate [Tessalon Perles] 100 mg PO BID PRN #10 cap 04/11/21 [Rx Last Taken Unknown] Allergy/AdvReac Type Severity Reaction Status Date / Time citalopram Allergy unknown Verified 04/11/21 10:01 codeine Allergy Unknown Verified 04/11/21 10:01 lithium Allergy Unknown Verified 04/11/21 10:01 Family History Mother Diabetes Breast cancer Anemia Depression Hypertension Father Diabetes Heart disease Hypertension CVA (cerebral vascular accident) in his 40'2 from CVA Hyperlipemia Brother Asthma Hypertension Sister Depression Seizures Grandmother Diabetes Thyroid disorder Heart disease Grandfather Diabetes Thyroid disorder Heart disease Aunt Heart disease CAD (coronary artery disease) stents Uncle Heart disease CAD (coronary artery disease) stents Other Arthritis Surgical History H/O tooth extraction History of appendectomy History of section, classical History of eyelid surgery History of hysterectomy Social History Smoking Status: Never smoker second hand exposure: No alcohol intake: never substance use type: does not use caffeine: Yes frequency: does not exercise ROS ROS ED Constitutional Constitutional ED: Denies chills or fever(s) Eyes Eyes: Denies change in vision ENT ENT ED: Reports ear pain, rhinorrhea and sore throat; Denies epistaxis Cardiovascular Cardiovascular: Denies chest pain or palpitations Respiratory/Chest Respiratory/Chest: Reports cough; Denies dyspnea or dyspnea on exertion Gastrointestinal Gastrointestinal: Reports vomiting; Denies abdominal pain or diarrhea Genitourinary Genitourinary ED: Denies dysuria, hematuria or urinary frequency Musculoskeletal Musculoskeletal: Denies back pain or neck pain Integumentary Denies rash Neurologic Neurologic: Denies dizziness, headache(s) or weakness EXAM Physical Exam Const Vital Signs: 04/11/21 10:01 04/11/21 10:14 Temperature 97.1 F L Temperature Source Temporal Pulse Rate 89 Respiratory Rate 18 Respiratory Effort Normal Non-Labored Respiratory Depth Normal Blood Pressure 126/70 H Blood Pressure Mean 88 Pulse Ox 94 Oxygen Delivery Method Room Air Room Air Positive well nourished and well developed General Appearance ED: well developed and NAD HEENT Reports normocephalic, head/scalp atraumatic and moist mucous membranes HEENT Narrative: Patient is congested on exam. Positive rhinorrhea. No oral pharyngeal lesions appreciated. Uvula midline. Nontender bilateral cervical lymphadenopathy. Normal tympanic membranes. Normal ear canal. Eyes PERRL and EOMs intact bilaterally Neck supple General: Negative for tenderness Chest Wall inspection of chest normal Resp normal respiratory effort and clear to auscultation bilaterally Auscultation: Negative for rales, rhonchi or wheezes Cardio regular rate, regular rhythm and no murmurs GI normal to inspection, nondistended, normoactive bowel sounds and non-tender Palpation: soft; Negative for guarding or rebound tenderness present Extremity normal to inspection General Extremety ED: Negative for edema or tenderness General Extremity: Negative for edema Neuro oriented x3, CN's II-XII intact bilaterally and no sensory deficits noted Sensorium / Orientation: alert Motor Exam: strength 5/5 throughout Psych mental status grossly normal Skin no rashes or lesions noted MDM MDM MDM Narrative Medical decision making narrative: Patient presents to the ED for URI symptoms. Her symptoms do started yesterday. Upon arrival to the emergency department she is in no acute distress. She has sneezing, nonproductive cough, ear pressure, congestion. This is most likely a viral infection. Did offer Covid testing but she has been previously vaccinated she is refusing. With her history of asthma I did offer chest x-ray but she has clear lung sounds and not complaining of shortness of breath so we decided against this. Recommend symptomatic treatment otherwise. I will write a prescription for Tessalon Perles if needed. She can take [id number] cough, cold medicines. Return precautions are reviewed including any significant fevers, shortness of breath, productive cough. She understands and is agreeable this plan. Discharged home in stable condition. She is to follow-up with her PCP. Discharge Plan Triage Chief Complaint: Cold Sx ED Provider: Tariq Woodson Dx/Rx/DC Orders Clinical Impression: URI (upper respiratory infection) Instructions: ED URI, Viral, No Abx (Adult) Prescriptions: New benzonatate [Tessalon Perles] 100 mg capsule 100 mg PO BID PRN (Reason: cough) Qty: 10 RF: 0 No Action rosuvastatin [Crestor] 40 mg tablet 40 mg PO DAILY Qty: 30 RF: 0 paroxetine HCl 40 mg tablet 40 mg PO DAILY RF: 0 lisinopril 10 mg tablet 10 mg PO DAILY Qty: 90 RF: 3 alprazolam [Xanax] 0.5 mg tablet 0.5 mg PO QHS PRNRF: 0 hydrochlorothiazide 12.5 MG capsule 12.5 mg PO DAILY RF: 0 levothyroxine 200 mcg tablet 200 mcg PO .M-Sat RF: 0 albuterol sulfate 90 mcg/actuation HFA aerosol inhaler 2 puff inhalation Q4H PRN (Reason: shortness of breath or wheezing) Qty: 1 RF: 6 Primary Care Provider: Carlos Chris Chi Referrals: Carlos Chris Chi, MD [Primary Care Provider] - 3-5 Days if not improving Disposition Disposition: Home, Self Care Discharge Date/Time: 04/11/21 10:45
== END 2021-04-11 10:45 | disposition home or self-care (01) ==
LOC: ED 10:44
PROVIDERS: Emergency Provider Emergency Medicine; PCP Family Medicine Geriatric Medicine
DX: J06.9 Acute upper respiratory infection, unspecified (principal); E78.5 Hyperlipidemia, unspecified; E89.0 Postprocedural hypothyroidism; F32.9 Major depressive disorder, single episode, unspecified; F41.9 Anxiety disorder, unspecified; G47.33 Obstructive sleep apnea (adult) (pediatric); I10 Essential (primary) hypertension; I25.10 Atherosclerotic heart disease of native coronary artery without angina pectoris; J45.909 Unspecified asthma, uncomplicated; M19.90 Unspecified osteoarthritis, unspecified site; Z79.899 Other long term (current) drug therapy
CPT/HCPCS: 99283

== ENCOUNTER → 2021-04-15 09:41 | Outpatient (CLI) | payer MEDICAID, SELFPAY ==
[2021-04-11 10:01] VITALS: BMI 37.8
== END ==
PROVIDERS: PCP Family Medicine Geriatric Medicine; Referring Provider Family Medicine Geriatric Medicine; Visit Provider Family Medicine Geriatric Medicine
DX: R68.83 Chills (without fever) (principal)
CPT/HCPCS: 87426

== ENCOUNTER 2021-04-22 08:08 | Day surgery (SDC) | payer MEDICAID, SELFPAY ==
[2021-04-06 12:56] VITALS: BMI 43.2
[2021-04-21 10:40] LABS: T4 Free Direct 1.92 ng/dL (0.76-1.46); Thyroid Stim Hormone (TSH) 0.17 uIU/mL (0.358-3.74)
[2021-04-22 08:34] VITALS: BP 121/76; PULSE 73; RESP 16; TEMP 36.2; O2SAT 100; BMI 42.1
[2021-04-22] MEDS: Lactated Ringers 1,000 ML 100 ML IV (09:00)
--- NOTE | 2021-04-22 09:32 | HP.PCM_ITS ---
History and Physical Date of Admission: 04/22/21 Date of Service: 04/06/21 MR#:[id number] Acct:[id number] Name: ROMAIN WESLEY :1975 Age/Sex: 45/F Rep #:[id number] Provider:Dr. 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 Is patient in pain?: No Allergies citalopram Allergy (Verified 04/06/21 12:55) unknown codeine Allergy (Verified 04/06/21 12:55) Unknown lithium Allergy (Verified 04/06/21 12:55) Unknown Medications hydrochlorothiazide 12.5 mg PO DAILY 01/17/17 [History Confirmed 04/06/21] rosuvastatin 40 mg tablet 40 mg PO DAILY #30 tab 08/07/20 [Rx Confirmed 04/06/21] levothyroxine 200 mcg tablet 200 mcg PO .M-Sat tab 10/27/20 [History Confirmed 04/06/21] lisinopril 10 mg tablet 10 mg PO DAILY #90 tab 10/28/20 [Rx Confirmed 04/06/21] paroxetine HCl 40 mg tablet 40 mg PO DAILY 10/28/20 [History Confirmed 04/06/21] albuterol sulfate 90 mcg/actuation aerosol inhaler 2 puff INHALATION Q4H PRN #1 device 02/09/21 [Rx Confirmed 04/06/21] alprazolam 0.5 mg tablet 0.5 mg PO QHS PRN 04/06/21 [History Confirmed 04/06/21] PFSH Medical History Anxiety Appendicitis Arthritis Asthma Clostridium difficile infection Coronary artery calcification DDD (degenerative disc disease), thoracic Depression Essential (primary) hypertension Hx of cardiovascular stress test Hx of echocardiogram Hyperlipidemia Hypertension Hypothyroidism 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 Irregular heart beat Kidney disease Obesity BALBINA (obstructive sleep apnea) Osteoarthritis Pain aggravated by walking Paresthesia Postablative hypothyroidism Segmental and somatic dysfunction of thoracic region Wears glasses Surgical History H/O tooth extraction History of appendectomy History of section, classical History of eyelid surgery History of hysterectomy Family History Mother Diabetes Breast cancer Anemia Depression Hypertension Father Diabetes Heart disease Hypertension CVA (cerebral vascular accident) in his 40'2 from CVA Hyperlipemia Brother Asthma Hypertension Sister Depression Seizures Grandmother Diabetes Thyroid disorder Heart disease Grandfather Diabetes Thyroid disorder Heart disease Aunt Heart disease CAD (coronary artery disease) stents Uncle Heart disease CAD (coronary artery disease) stents Other Arthritis Social History Smoking Status: Never smoker second hand exposure: No alcohol intake: never substance use type: does not use caffeine: Yes frequency: does not exercise HPI HPI HPI: ROMAIN WESLEY, is a 45 F who presents to the office today for bright red blood per rectum. Patient states for last 2 to 3 weeks she has been having bleeding with bowel movements patient denies any clots or any bleeding between bowel movements. Patient states she has bowel moods daily denies any constipation. Patient does have pain?sharp with bowel movements and occasional have some abdominal cramping as well. Patient denies any pain without bowel movements. Patient has had anal sex as well but denies bleeding starting near that time. Patient thinks she had a previous colonoscopy in 2018 or 19 due to abdominal pain patient denies previously having bleeding per rectum. ROS General General: No weight change, appetite, fatigue, colon cancer, breast cancer or weakness HEENT HEENT: No difficulty swallowing, eye injury, eye surgery, swollen glands or hoarseness Endo Endocrine: Yes thyroid disease; No diabetes mellitus, thyroid cancer, Hair loss, heat intolerance or cold intolerance Skin Skin: No rash or changing moles Breast Breast: No left breast lump, right breast lump, nipple discharge, breast pain, abnormal mammogram, abnormal US or breast enlargement Musc Musculoskeletal: No back problems, arthritis, rheumatoid arthritis, gout or joint pain Cardio Cardiovascular: Yes high blood pressure; No murmur, pacemaker, heart disease, atrial fibrillation, heart attack, heart st ent, palpitations, shortness of breat with exertion or chest pain Psych Psychiatric: Yes depression and anxiety; No hearing voices Resp Respiratory: No shortness of breath, Yes sleep apnea, No cough, No COPD, Yes asthma, No emphysema and No wheezing Gastro Gastrointestinal: No abdominal pain, No nausea or vomiting, No diarrhea, No constipation, Yes blood in stool, No acid reflux, No hemorrhoids, No ulcers, No gallbladder problem and No black,tarry stools Donnie Hematologic: No blood thinners, No blood disorders, No bleeding, No anemia and No blood clots Neuro Neurologic: No system reviewed and no additional complaints, except as documented, No as per HPI, No abnormal gait, No abnormal hearing, No abnormal movements, No abnormal speech, No behavioral changes, No burning sensations, No confusion, No convulsions, No disequilibrium, No dizziness, No localized weakness, No frequent falls, No headache(s), No lack of coordination, No loss of vision, No memory loss, No numbness, No other visual disturbances, No radicular pain, No restless legs, No sensory deficit, No syncope, No tingling, No tremor(s), No weakness and No other Exam Const General: cooperative, healthy appearing, comfortable and no acute distress Neck Neck: normal visual inspection Resp Effort & Inspection: normal respiratory effort Cardio Rate: regular rate GI Inspection: non-distended Palpation: soft, no guarding and nontender Other: REFUGIO: Unable to see any obvious fissure, REFUGIO was a little limited due to patient discomfort, no gross blood, no external hemorrhoids. Skin General: no rashes or lesions noted Neuro General: patient oriented x3 Psych Affect: normal affect COVID (Procedure Consent) Procedure Criteria Procedure Criteria: Yes Elective The surgeon/proceduralist and patient have discussed in detail the risk of exposure to and/or potential harm posed by the COVID-19 virus with having a surgery/procedure at this time versus the risk of delaying the surgery/procedure. It is not possible to know either the risk of delaying the surgery or procedure or chance of getting an infection with perfect accuracy, but a joint decision was made between the patient and the surgeon/proceduralist to proceed at this time with the scheduled surgery/procedure as indicated on the consent form. Assessment and Plan Assessment and Plan (1) BRBPR (bright red blood per rectum): Status: Acute (2) Rectal pain: Status: Acute Plan - Dr. Anju Torres MD: I have discussed the above with the patient. I have offered the patient colonoscopy for evaluation. I have explained the risks/benefits of the procedure and described the procedure. I have discussed the risks with the patient, including but not limited to: infection, bleeding, perforation of the GI tract requiring emergency surgery, inability to complete the procedure, injury to any internal organs, complications of anesthesia, etc. - the patient understands and agrees to proceed. I have answered all the patient's questions to the patient's satisfaction and the patient has no further questions. The patient has been given instructions for the colon cleansing preparation. 1 day of clears, MiraLAX Dulcolax split prep. Anju Torres M.D. Pager: [phone] [facility] [address] [place] [address], [facility], [address] [place] [address] Office: [phone] Plan Details Other Orders: Orders: Colonoscopy Today Follow Up: We will schedule colonoscopy Coding Level of Care Code Off vis,new,level 3 Diagnoses BRBPR (bright red blood per rectum) K62.5 Rectal pain K62.89 04/06/21 1323<Electronically signed by Anju Torres MD>Date Anju Torres MD
[2021-04-22 10:09] VITALS: BP 109/76; BP 121/76; PULSE 65; RESP 16; TEMP 36.3; O2SAT 100
[2021-04-22 10:14] VITALS: BP 114/72; BP 121/76; PULSE 65; RESP 16; O2SAT 100
[2021-04-22 10:20] VITALS: BP 120/67; BP 121/76; PULSE 66; RESP 16; O2SAT 99
--- NOTE | 2021-04-22 10:20 | OP.COLON_ITS ---
Patient Name: Ursula Mendoza Procedure Date: 04/22/2021 9:41 AM Date of : 1975 Age: 45 Procedure: Colonoscopy Indications: Rectal pain Providers: Anju Torres MD Referring MD: Anju Torres MD Medicines: Monitored Anesthesia Care Patient Profile: This is a 45 year old female. Last Colonoscopy: 3 years ago. Complications: No immediate complications. Procedure: Pre-Anesthesia Assessment: - Prior to the procedure, a History and Physical was performed, and patient medications and allergies were reviewed. The patient's tolerance of previous anesthesia was also reviewed. The risks and benefits of the procedure and the sedation options and risks were discussed with the patient. All questions were answered, and informed consent was obtained. Prior Anticoagulants: The patient has taken no previous anticoagulant or antiplatelet agents. ASA Grade Assessment: Per anesthesia. After reviewing the risks and benefits, the patient was deemed in satisfactory condition to undergo the procedure. After I obtained informed consent, the scope was passed under direct vision. Throughout the procedure, the patient's blood pressure, pulse, and oxygen saturations were monitored continuously. The pediatric colonoscope was introduced through the anus and advanced to the cecum, identified by the appendiceal orifice, ileocecal valve and palpation. The colonoscopy was performed without difficulty. The patient tolerated the procedure well. The quality of the bowel preparation was good. Scope In: 9:52:39 AM Scope Withdrawal Time 0 hours 6 minutes 43 seconds Scope Out: 10:03:15 AM Total Procedure Duration Time 0 hours 10 minutes 36 seconds Findings: Hemorrhoids were found on perianal exam. Internal hemorrhoids were found. The hemorrhoids were Grade I (internal hemorrhoids that do not prolapse). The entire examined colon appeared normal. Impression: - Hemorrhoids found on perianal exam. - Internal hemorrhoids. - The entire examined colon is normal. - No specimens collected. Recommendation: - Discharge patient to home. - Resume previous diet. - Continue present medications. - Use hydrocortisone suppository/lidocaine 25 mg/50 mg 2 per rectum once a day. - Repeat colonoscopy in 10 years for screening purposes. Procedure Code(s): --- Professional --- 45418, Colonoscopy, flexible; diagnostic, including collection of specimen(s) by brushing or washing, when performed (separate procedure) Diagnosis Code(s): --- Professional --- K64.0, First degree hemorrhoids K62.89, Other specified diseases of anus and rectum CPT copyright 2017 [employer]. All rights reserved. The codes documented in this report are preliminary and upon director corporate communications review may be revised to meet current compliance requirements. MD Anju Chu MD 04/22/2021 10:20:27 AM This report has been signed electronically. Number of Addenda: 0 Note Initiated On: 04/22/2021 9:41 AM
--- NOTE | 2021-04-22 10:21 | OP.CCLET_ITS ---
04/22/2021 Carlos Chris MD [address] [place] [address] Re : Colonoscopy procedure for Ursula Mendoza Dear Dr. Chris This procedure was performed on Thursday, April 22, 2021. My impressions and recommendations are as follows: Impressions : - Hemorrhoids found on perianal exam. - Internal hemorrhoids. - The entire examined colon is normal. - No specimens collected. Recommendations : - Discharge patient to home. - Resume previous diet. - Continue present medications. - Use hydrocortisone suppository/lidocaine 25 mg/50 mg 2 per rectum once a day. - Repeat colonoscopy in 10 years for screening purposes. My findings are described in the full procedure note, which is enclosed. If I can be of further assistance, please feel free to contact me at Doctor phone number(s): , Work: . Sincerely, MD Anju Chu MD 04/22/2021 10:20:27 AM This report has been signed electronically.
[2021-04-22 10:26] VITALS: BP 119/82; BP 121/76; PULSE 61; RESP 16; TEMP 36.3; O2SAT 100
[2021-04-22 11:00] VITALS: BP 121/76
== END 2021-04-22 11:07 ==
LOC: EN 08:10 → AC 08:12
PROVIDERS: PCP Family Medicine Geriatric Medicine; Referring Provider Surgery; Visit Provider Surgery
PROC: 0DJD8ZZ Inspection of Lower Intestinal Tract, Via Natural or Artificial Opening Endoscopic (ICD-10-PCS; CPT 45378; principal; 2021-04-22 09:25)
DX: K64.0 First degree hemorrhoids (principal); K62.5 Hemorrhage of anus and rectum; K62.89 Other specified diseases of anus and rectum; I10 Essential (primary) hypertension; E78.5 Hyperlipidemia, unspecified; E03.9 Hypothyroidism, unspecified; G47.33 Obstructive sleep apnea (adult) (pediatric)
CPT/HCPCS: 45378; 36415; 84439; 84443; J7120; J2405

== ENCOUNTER → 2021-04-27 10:20 | Outpatient (CLI) | payer MEDICAID, SELFPAY ==
[2021-04-27 08:25] VITALS: BMI 41.0
[2021-04-27 11:24] LABS: ALB/GLOB Ratio 0.8 RATIO (0.9-2.4); AST(SGOT) 27 U/L (15-37); Alanine Aminotransfer ALT/SGPT 40 U/L (13-56); Albumin, Serum 3.3 g/dL (3.2-5.0); Alkaline Phosphatase 63 U/L (45-117); Anion Gap 4 (5-15); BUN 13 mg/dL (7-18); BUN/Creat Ratio 12.7 RATIO (10-20); Calcium,Total 8.4 mg/dL (8.5-10.1); Chloride 103 mmol/L (98-107); Cholesterol 114 mg/dL (200); Creatinine, Serum 1.02 mg/dL (0.55-1.02); EST Glomerular Filtration Rate 63 mL/min (>60); Est Glom Filt Rate - Afr Amer 76 mL/min (>60); Globulin 4.3 g/dL (2.2-4.2); Glucose 100 mg/dL (74-106); High Density Lipoprotein 40 mg/dL; Potassium 4.1 mmol/L (3.5-5.1); Protein, Total 7.6 g/dL (6.4-8.2); Sodium Level 137 mmol/L (136-145); Triglycerides 131 mg/dL; Very Low Density Lipoprotein 26 mg/dL (5-40)
[2021-04-28 09:47] LABS: Thyroid Stim Hormone (TSH) 0.21 uIU/mL (0.358-3.74); Uric Acid 7.7 mg/dL (2.6-6.0)
== END ==
PROVIDERS: PCP Family Medicine Geriatric Medicine; Referring Provider Nurse Practitioner Gerontology; Visit Provider Nurse Practitioner Gerontology
DX: E78.5 Hyperlipidemia, unspecified (principal); I10 Essential (primary) hypertension
CPT/HCPCS: 36415; 80053; 80061; 84443; 84550

== ENCOUNTER → 2021-06-24 08:53 | Outpatient (CLI) | payer MEDICAID, SELFPAY | PROVIDERS: PCP Family Medicine Geriatric Medicine; Referring Provider Family Medicine Geriatric Medicine; Visit Provider Family Medicine Geriatric Medicine | DX: R68.83 Chills (without fever) (principal) | CPT/HCPCS: 87633; 87635; C9803; U0005; U0003 ==

== ENCOUNTER → 2021-07-20 13:42 | Outpatient (CLI) | payer MEDICAID, SELFPAY ==
[2021-07-20 17:02] LABS: ALB/GLOB Ratio 0.6 RATIO (0.9-2.4); AST(SGOT) 27 U/L (15-37); Alanine Aminotransfer ALT/SGPT 37 U/L (13-56); Alkaline Phosphatase 63 U/L (45-117); Anion Gap 7 (5-15); BUN 11 mg/dL (7-18); BUN/Creat Ratio 10.4 RATIO (10-20); Calcium,Total 8.4 mg/dL (8.5-10.1); Chloride 104 mmol/L (98-107); Creatinine, Serum 1.06 mg/dL (0.55-1.02); EST Glomerular Filtration Rate 60 mL/min (>60); Est Glom Filt Rate - Afr Amer 73 mL/min (>60); Globulin 4.7 g/dL (2.2-4.2); Glucose 85 mg/dL (74-106); Potassium 3.8 mmol/L (3.5-5.1); Protein, Total 7.7 g/dL (6.4-8.2); Sodium Level 137 mmol/L (136-145)
[2021-07-20 17:04] LABS: Absolute Lymphocyte Count 3.89 X10^3/uL (0.83-4.51); Absolute Neutrophil Count 8.3 X10^3/uL (2.0-7.7); Basophil# 0.06 X10^3/uL; Basophil% 0.5 % (0-1); Eosinophil# 0.06 X10^3/uL; Eosinophils% 0.5 % (0-5); Hematocrit 41.3 % (37-47); Hemoglobin 13.1 g/dL (12.0-15.0); Lymphocyte # 3.89 X10^3/ul (0.83-4.51); Lymphocyte % 29.3 % (19-41); Mean Corp Hgb Conc 31.7 g/dL (32-36); Mean Corpuscular Hgb 30.1 pg (27.0-32.0); Mean Corpuscular Volume 94.9 fL (81-99); Mean Platelet Vol. 10.9 fl (6.2-12.0); Monocyte# 0.91 X10^3/uL; Monocyte% 6.9 % (0-10); NRBC Flagged by Analyzer 0 % (0-5); Neutrophil # 8.28 X10^3/uL (2.7-7.7); Neutrophil % 62.3 % (47-70); Platelet Count 339 K/mm3 (150-450); RBC Distribution Width CV 13.5 % (11.6-14.6); RBC Distribution Width SD 47.8 fl (35.1-43.9); Red Blood Count 4.35 M/mm3 (4.2-5.4); White Blood Count 13.3 K/mm3 (4.4-11.0)
--- NOTE | 2021-07-20 17:48 | CT_ITS ---
STUDY: CT ABDOMEN AND PELVIS WITH CONTRAST REASON FOR EXAM: Female, 45 years old. ABD PAIN RADIATION DOSAGE (If Supplied By Facility): CTDIvol = ( 20.16 ) mGy, DLP = ( 1257.81 ) mGycm TECHNIQUE: Transaxial images were obtained from the dome of the diaphragm to the symphysis pubis without oral contrast. Oral and IV Gastrografin and 100mL Isovue-370 was administered. Sagittal and coronal images were reconstructed. Individualized dose optimization techniques were used for this CT. COMPARISON: 01/30/2019 FINDINGS: Small calcified right hilar nodes and calcified granuloma in the right lower lobe.. The visualized portions of the heart are within normal limits. Nonspecific fatty infiltrated liver without mass or bile duct dilatation. Normal gallbladder and extrahepatic biliary system. Multiple tiny granulomatous calcifications within normal size spleen. Normal pancreas. Normal bilateral adrenal glands. Normal right kidney. Normal left kidney. Normal visualized stomach. Normal small intestine. Normal colon. No evidence for acute appendicitis. Normal abdominal aorta. Normal inferior vena cava. Normal retroperitoneum. Normal urinary bladder. Uterus not visualized consistent with hysterectomy. There are multiple small left ovarian cysts which may be further assessed with pelvic sonogram if clinically warranted Normal abdominal wall. Lumbar spine demonstrates mild degenerative change CT/Abdomen/Pelvis WITH Contrast IMPRESSION: Multiple left ovarian cysts status post hysterectomy which may be further assessed with pelvic sonography if clinically warranted. Nonspecific fatty infiltrated liver.. No acute abnormalities identified. Electronically Signed: Steven Marroquin MD at 18:08 EDT , Service support ,
== END ==
PROVIDERS: PCP Family Medicine Geriatric Medicine; Visit Provider Family Medicine Geriatric Medicine
DX: R10.9 Unspecified abdominal pain (principal)
CPT/HCPCS: 36415; 74177; 80053; 85025; Q9967

== ENCOUNTER → 2021-07-28 09:26 | Outpatient (CLI) | payer MEDICAID, SELFPAY ==
[2021-07-28 12:29] LABS: Absolute Lymphocyte Count 3.39 X10^3/uL (0.83-4.51); Absolute Neutrophil Count 7.7 X10^3/uL (2.0-7.7); Basophil# 0.08 X10^3/uL; Basophil% 0.7 % (0-1); Eosinophil# 0.07 X10^3/uL; Eosinophils% 0.6 % (0-5); Hematocrit 42.9 % (37-47); Hemoglobin 13.9 g/dL (12.0-15.0); Lymphocyte # 3.39 X10^3/ul (0.83-4.51); Lymphocyte % 28.3 % (19-41); Mean Corp Hgb Conc 32.4 g/dL (32-36); Mean Corpuscular Hgb 30.5 pg (27.0-32.0); Mean Corpuscular Volume 94.3 fL (81-99); Mean Platelet Vol. 10.5 fl (6.2-12.0); Monocyte# 0.73 X10^3/uL; Monocyte% 6.1 % (0-10); NRBC Flagged by Analyzer 0 % (0-5); Neutrophil # 7.67 X10^3/uL (2.7-7.7); Neutrophil % 63.9 % (47-70); Platelet Count 363 K/mm3 (150-450); RBC Distribution Width CV 13.5 % (11.6-14.6); RBC Distribution Width SD 46.5 fl (35.1-43.9); Red Blood Count 4.55 M/mm3 (4.2-5.4)
[2021-07-28 12:55] LABS: Vitamin D,25 Hydroxy 26.9 ng/mL
[2021-07-28 13:12] LABS: ALB/GLOB Ratio 0.7 RATIO (0.9-2.4); AST(SGOT) 28 U/L (15-37); Alanine Aminotransfer ALT/SGPT 40 U/L (13-56); Albumin, Serum 3.2 g/dL (3.2-5.0); Alkaline Phosphatase 67 U/L (45-117); Anion Gap 9 (5-15); BUN 12 mg/dL (7-18); BUN/Creat Ratio 10.1 RATIO (10-20); Calcium,Total 8.9 mg/dL (8.5-10.1); Chloride 103 mmol/L (98-107); Creatinine, Serum 1.19 mg/dL (0.55-1.02); EST Glomerular Filtration Rate 52 mL/min (>60); Est Glom Filt Rate - Afr Amer 63 mL/min (>60); Globulin 4.8 g/dL (2.2-4.2); Glucose 87 mg/dL (74-106); Potassium 3.7 mmol/L (3.5-5.1); Sodium Level 138 mmol/L (136-145); Thyroid Stim Hormone (TSH) 9.72 uIU/mL (0.358-3.74); Uric Acid 8.7 mg/dL (2.6-6.0)
== END ==
PROVIDERS: PCP Family Medicine Geriatric Medicine; Visit Provider Family Medicine Geriatric Medicine
DX: E55.9 Vitamin D deficiency, unspecified (principal); I10 Essential (primary) hypertension; M10.9 Gout, unspecified
CPT/HCPCS: 36415; 80053; 82306; 84443; 84550; 85025

== ENCOUNTER → 2021-08-04 08:03 | Outpatient (CLI) | payer MEDICAID, SELFPAY ==
--- NOTE | 2021-08-04 08:07 | US_ITS ---
STUDY: ABDOMINAL ULTRASOUND - ELASTOGRAPHY REASON FOR VISIT: Female, 45 years old. Fatty infiltration of the liver. TECHNIQUE: Liver stiffness measurements were obtained on a AIS RS 85 ultrasound machine using a CA 1-7 probe following the SRU guidelines. 3 measurements were obtained using a 2-D-SWE method. The IQR/M was 22% suggesting a quality data set. TECHNICAL QUALITY: Adequate. COMPARISON: Comparison is made with prior sonogram of the right upper quadrant done earlier in the day. FINDINGS: Liver: Fatty infiltration of the liver. Median liver stiffness measured 7.3 kPa. US/Elastography Parenchyma/Organ IMPRESSION: Liver stiffness measures 7.3 kPa compatible with F2 Metavir score. Electronically Signed: Carlos Agarwal MD at 9:07 EDT , Service support ,
--- NOTE | 2021-08-04 08:07 | US_ITS ---
STUDY: ABDOMINAL ULTRASOUND - RIGHT UPPER QUADRANT REASON FOR VISIT: Female, 45 years old FATTY LIVER TECHNIQUE: Ultrasound evaluation of the right upper quadrant was performed with real-time and static santiago-scale imaging. TECHNICAL QUALITY: Adequate. COMPARISON: None. FINDINGS: Liver: The liver measures 15.7 cm. There is increased echogenicity consistent with fatty infiltration. The bile ducts are within normal limits. There is hepatic color flow. The direction of portal flow is hepatopetal. There is no demonstrated mass lesion. Gallbladder: Normal distended gallbladder. The gallbladder wall measures 2.1 mm. There is a negative sonographic Luis''s sign. There is no pericholecystic fluid. There are no gallstones. Common Bile Duct (C.B.D.): The common bile duct measures 3.1 mm. Pancreas: Normal size of the head, body and tail of the pancreas. There is increased echogenicity of the pancreas. There is no demonstrated pancreatic mass or cyst. Right Kidney: Normal size of the right kidney. The right kidney measures 8.6 cm x 5.4 cm x 4.9 cm. Normal renal cortex. The right cortex measures 1.0 cm. There is no demonstrated renal mass or cyst. There is no right hydronephrosis. US/Liver IMPRESSION: Fatty infiltration of the liver. Electronically Signed: Carlos Agarwal MD at 9:08 EDT , Service support ,
== END ==
PROVIDERS: PCP Family Medicine Geriatric Medicine; Referring Provider Family Medicine Geriatric Medicine; Visit Provider Family Medicine Geriatric Medicine
DX: K76.0 Fatty (change of) liver, not elsewhere classified (principal)
CPT/HCPCS: 76705; 76981

== ENCOUNTER → 2021-08-13 12:03 | Outpatient (CLI) | payer MEDICAID, SELFPAY ==
--- NOTE | 2021-08-13 12:09 | RAD_ITS ---
STUDY: X-RAY - CERVICAL SPINE REASON FOR EXAM: Female, 45 years old. Woke up with neck pain. Unable to rotate head. TECHNIQUE: 3 view(s) of the cervical spine were obtained. COMPARISON: None FINDINGS: Normal anterior atlantoaxial articulation. Normal odontoid process. Normal cervical lordosis. Normal vertebral bodies and endplates. Normal disc space heights. There is no evidence of acute fracture or loss of vertebral axial height. There is maintenance of normal alignment. The soft tissue structures are unremarkable. RAD/Cerv Spine 2 or 3 Views IMPRESSION: Normal x-ray examination of the visualized cervical spine. If there is continued clinical concern or if symptoms persist, MRI should be contemplated. Electronically Signed: Marques Ortiz DO at 18:49 EDT Tel [phone], Service support ,
== END ==
PROVIDERS: PCP Family Medicine Geriatric Medicine; Visit Provider Family Medicine Geriatric Medicine
DX: M54.2 Cervicalgia (principal)
CPT/HCPCS: 72040

== ENCOUNTER 2021-10-15 11:25 | Outpatient (CLI) | payer MEDICAID, SELFPAY ==
[2021-02-10 06:24] VITALS: BMI 43.5
[2021-10-15 11:43] LABS: Absolute Lymphocyte Count 2.82 X10^3/uL (0.83-4.51); Absolute Neutrophil Count 7.2 X10^3/uL (2.0-7.7); Basophil# 0.07 X10^3/uL; Basophil% 0.6 % (0-1); Eosinophil# 0.07 X10^3/uL; Eosinophils% 0.6 % (0-5); Hematocrit 41.1 % (37-47); Hemoglobin 13.4 g/dL (12.0-15.0); Lymphocyte # 2.82 X10^3/ul (0.83-4.51); Lymphocyte % 25.9 % (19-41); Mean Corp Hgb Conc 32.6 g/dL (32-36); Mean Corpuscular Hgb 30.7 pg (27.0-32.0); Mean Corpuscular Volume 94.1 fL (81-99); Mean Platelet Vol. 9.9 fl (6.2-12.0); Monocyte# 0.65 X10^3/uL; NRBC Flagged by Analyzer 0 % (0-5); Neutrophil # 7.21 X10^3/uL (2.7-7.7); Neutrophil % 66.3 % (47-70); Platelet Count 353 K/mm3 (150-450); RBC Distribution Width CV 12.7 % (11.6-14.6); Red Blood Count 4.37 M/mm3 (4.2-5.4); White Blood Count 10.9 K/mm3 (4.4-11.0)
[2021-10-15 12:22] LABS: ALB/GLOB Ratio 0.7 RATIO (0.9-2.4); AST(SGOT) 19 U/L (15-37); Alanine Aminotransfer ALT/SGPT 28 U/L (13-56); Albumin, Serum 3.1 g/dL (3.2-5.0); Alkaline Phosphatase 58 U/L (45-117); Anion Gap 6 (5-15); BUN 11 mg/dL (7-18); BUN/Creat Ratio 10.5 RATIO (10-20); Calcium,Total 8.7 mg/dL (8.5-10.1); Chloride 105 mmol/L (98-107); Cholesterol 168 mg/dL (200); Creatinine, Serum 1.05 mg/dL (0.55-1.02); EST Glomerular Filtration Rate 61 mL/min (>60); Est Glom Filt Rate - Afr Amer 73 mL/min (>60); Globulin 4.2 g/dL (2.2-4.2); Glucose 79 mg/dL (74-106); High Density Lipoprotein 38 mg/dL; Phosphorus 2.4 mg/dL (2.5-4.9); Potassium 3.9 mmol/L (3.5-5.1); Protein, Total 7.3 g/dL (6.4-8.2); Sodium Level 139 mmol/L (136-145); Triglycerides 184 mg/dL; Very Low Density Lipoprotein 37 mg/dL (5-40)
== END 2021-10-15 23:59 | disposition short-term general hospital (02) ==
LOC: POLAB3 11:27
PROVIDERS: PCP Family Medicine Geriatric Medicine; Visit Provider Internal Medicine Nephrology
DX: I12.9 Hypertensive chronic kidney disease with stage 1 through stage 4 chronic kidney disease, or unspecified chronic kidney disease (principal); N18.31 Chronic kidney disease, stage 3a; E55.9 Vitamin D deficiency, unspecified; E78.5 Hyperlipidemia, unspecified; M10.9 Gout, unspecified
CPT/HCPCS: 36415; 80053; 80061; 82306; 84100; 84443; 84550; 85025

== ENCOUNTER 2021-12-29 12:59 | Outpatient (CLI) | payer MEDICAID, SELFPAY ==
[2021-12-29 14:16] LABS: T4 Free Direct 0.91 ng/dL (0.76-1.46)
== END 2021-12-29 23:59 | disposition home or self-care (01) ==
PROVIDERS: PCP Family Medicine Geriatric Medicine; Referring Provider Internal Medicine Endocrinology, Diabetes & Metabolism; Visit Provider Internal Medicine Endocrinology, Diabetes & Metabolism
DX: E03.8 Other specified hypothyroidism (principal); E06.3 Autoimmune thyroiditis
CPT/HCPCS: 36415; 84439; 84443

== ENCOUNTER 2022-01-14 09:27 | Emergency (ER) | payer MEDICAID, SELFPAY ==
[2022-01-14 09:28] VITALS: BP 129/82; PULSE 90; RESP 18; TEMP 36.6; O2SAT 99; BMI 42.5
--- NOTE | 2022-01-14 09:31 | EKG12_ITS ---
Test Reason : CP Blood Pressure : / mmHG Vent. Rate : 088 BPM Atrial Rate : 088 BPM P-R Int : 140 ms QRS Dur : 086 ms QT Int : 376 ms P-R-T Axes : 054 -06 021 degrees QTc Int : 454 ms Normal sinus rhythm Normal ECG Confirmed by JOSE GUADALUPE MENDEZ, SAMMY ([id number]), school photograph editor MEKHI ALTMAN ([id number]) on 01/20/2022 11:00:45 AM Referred By: SANTY Confirmed By:SAMMY SHI MD
--- NOTE | 2022-01-14 09:44 | RAD_ITS ---
STUDY: X-RAY CHEST REASON FOR EXAM: Female, 46 years old. Chest pain TECHNIQUE: Single AP portable view of the chest. COMPARISON: Comparison is made with prior examination 07/15/2019. EKG electrodes are seen. FINDINGS: The lungs are clear and expanded. There is no demonstrated pleural abnormality. Normal size heart. Normal mediastinum and royl. Normal visualized pulmonary arteries. Normal visualized aortic arch and descending thoracic aorta. Normal visualized thoracic spine. Normal visualized ribs, clavicles, and shoulders. There is no demonstrated abnormality of the visualized soft tissue structures of the upper abdomen. RAD/Chest 1 View (Portable) IMPRESSION: Normal x-ray examination of the chest. Electronically Signed: Carlos Agarwal MD at 10:09 EDT ,
[2022-01-14 09:55] LABS: Absolute Lymphocyte Count 3.17 X10^3/uL (0.83-4.51); Absolute Neutrophil Count 7.4 X10^3/uL (2.0-7.7); Basophil# 0.06 X10^3/uL; Basophil% 0.5 % (0-1); Eosinophils% 0.9 % (0-5); Hemoglobin 14.2 g/dL (12.0-15.0); Lymphocyte # 3.17 X10^3/ul (0.83-4.51); Lymphocyte % 27.9 % (19-41); Mean Corp Hgb Conc 32.3 g/dL (32-36); Mean Corpuscular Hgb 30.5 pg (27.0-32.0); Mean Corpuscular Volume 94.6 fL (81-99); Monocyte# 0.62 X10^3/uL; Monocyte% 5.5 % (0-10); NRBC Flagged by Analyzer 0 % (0-5); Neutrophil # 7.36 X10^3/uL (2.7-7.7); Neutrophil % 64.8 % (47-70); Platelet Count 364 K/mm3 (150-450); RBC Distribution Width CV 12.5 % (11.6-14.6); RBC Distribution Width SD 43.5 fl (35.1-43.9); Red Blood Count 4.65 M/mm3 (4.2-5.4); White Blood Count 11.4 K/mm3 (4.4-11.0)
[2022-01-14 10:12] LABS: Anion Gap 4 (5-15); BUN 17 mg/dL (7-18); BUN/Creat Ratio 14.5 RATIO (10-20); Calcium,Total 8.8 mg/dL (8.5-10.1); Chloride 104 mmol/L (98-107); Creatinine, Serum 1.17 mg/dL (0.55-1.02); EST Glomerular Filtration Rate 53 mL/min (>60); Est Glom Filt Rate - Afr Amer 65 mL/min (>60); Glucose 133 mg/dL (74-106); Potassium 3.7 mmol/L (3.5-5.1); Sodium Level 137 mmol/L (136-145); Troponin-I HS < 3 pg/mL (3.0-54.0)
--- NOTE | 2022-01-14 10:21 | EDS_ITS ---
HPI History of Present Illness Chief Complaint: Chest Pain Informant: patient Onset/Context/Timing Onset: Yesterday Activity at onset: sudden Timing: Intermittent Quality: Positive for Sharp Location: Substernal Worsened By: Nothing Relieved By: Nothing Associated Symptoms: Negative for Nausea, Vomiting, Diaphoresis, Dyspnea, Cough, Fever, Lightheadedness, Acid Reflux and Palpitations Narrative Narrative: Patient presents with chest pain that began yesterday. Patient states it comes and goes. Patient describes her pain as sharp. Patient states it is over the substernal area. Patient states nothing makes it worse and nothing makes it better. Patient denies any nausea or vomiting. Patient denies any diaphoresis. Patient denies any shortness of breath or cough. Patient denies any fevers or chills. Patient denies any lightheadedness or dizziness. Patient denies any palpitations. CVD Risk Factors: Positive for Hypertension, Hypercholesterolemia and Family History 1' </=55; Negative for Diabetes and Smoking PE Risk Factors: Negative for Recent Travel/Surgery, Recent Immobilization, Prior DVT or PE, Cancer and OCP + Smoking + >/=35 PFSH PFSH Medical History Anxiety Appendicitis Arthritis Asthma Clostridium difficile infection Coronary artery calcification DDD (degenerative disc disease), thoracic Depression Essential (primary) hypertension Hx of cardiovascular stress test Hx of echocardiogram Hyperlipidemia Hypertension Hypothyroidism Irregular heart beat Kidney disease Obesity [place] (obstructive sleep apnea) Osteoarthritis Pain aggravated by walking Paresthesia Postablative hypothyroidism Postablative hypothyroidism Segmental and somatic dysfunction of thoracic region Stage 3 chronic kidney disease Vitamin D deficiency Wears glasses Home Medications hydrochlorothiazide 12.5 mg PO DAILY 01/17/17 [History Last Taken 01/21/19] rosuvastatin 40 mg tablet 40 mg PO DAILY #30 tab 08/07/20 [Rx Last Taken Unknown] paroxetine HCl 40 mg tablet 40 mg PO DAILY 10/28/20 [History Last Taken Unknown] albuterol sulfate 90 mcg/actuation aerosol inhaler 2 puff INHALATION Q4H PRN #1 device 02/09/21 [Rx Last Taken Unknown] alprazolam 0.5 mg tablet 0.5 mg PO QHS PRN 04/06/21 [History Last Taken Unknown] lisinopril 10 mg tablet 10 mg PO DAILY #90 tab 10/19/21 [Rx Last Taken Unknown] ergocalciferol (vitamin D2) 1,250 mcg (50,000 unit) capsule 1 cap PO DAILY 12/30/21 [History Last Taken Unknown] levothyroxine 175 mcg tablet 175 mcg PO DAILY #30 tab 12/30/21 [Rx Last Taken Unknown] Allergy/AdvReac Type Severity Reaction Status Date / Time citalopram Allergy unknown Verified 01/14/22 09:30 codeine Allergy Unknown Verified 01/14/22 09:30 lithium Allergy Unknown Verified 01/14/22 09:30 Family History Mother Diabetes Breast cancer Anemia Depression Hypertension Father Diabetes Heart disease Hypertension CVA (cerebral vascular accident) in his 40'2 from CVA Hyperlipemia Brother Asthma Hypertension Sister Depression Seizures Grandmother Diabetes Thyroid disorder Heart disease Grandfather Diabetes Thyroid disorder Heart disease Aunt Heart disease CAD (coronary artery disease) stents Uncle Heart disease CAD (coronary artery disease) stents Other Arthritis Surgical History H/O tooth extraction History of appendectomy History of section, classical History of eyelid surgery History of hysterectomy Hx of appendectomy Hx of right knee surgery Social History Smoking Status: Never smoker second hand exposure: No alcohol intake: never substance use type: does not use caffeine: Yes frequency: does not exercise ROS ROS ED Constitutional Constitutional ED: Denies chills or fever(s) Eyes Eyes: Denies blurry vision or change in vision ENT ENT ED: Denies rhinorrhea or sore throat Cardiovascular Cardiovascular: Reports chest pain and palpitations Respiratory/Chest Respiratory/Chest: Denies cough or dyspnea Gastrointestinal Gastrointestinal: Denies abdominal pain, nausea or vomiting Genitourinary Genitourinary ED: Denies dysuria or hematuria Musculoskeletal Musculoskeletal: Denies back pain or neck pain Integumentary Denies abscess or rash Neurologic Neurologic: Reports weakness; Denies headache(s) Allergic/Immunologic Allergic/Immunologic ED: Denies mouth swelling or urticaria EXAM Physical Exam Const Vital Signs: 01/14/22 09:28 01/14/22 09:47 Temperature 97.9 F Temperature Source Temporal Pulse Rate 90 Respiratory Rate 18 Respiratory Pattern Normal Blood Pressure 129/82 H Blood Pressure Mean 97 Pulse Ox 99 Oxygen Delivery Method Room Air Room Air Positive well nourished, well developed and obese General Appearance ED: well developed and NAD Nutritional Appearance: obese HEENT normocephalic and atraumatic Eyes PERRL and EOMs intact bilaterally Neck supple and no JVD Chest Wall palpation of chest normal Resp normal respiratory effort and clear to auscultation bilaterally Effort and Inspection: Negative for respiratory distress Cardio regular rate, regular rhythm and no murmurs GI normal to inspection, nondistended, normoactive bowel sounds, soft to palpation, non-tender and non-distended Extremity normal to inspection General Extremety ED: Negative for edema or tenderness General Extremity: Negative for edema Neuro oriented x3, CN's II-XII intact bilaterally and no sensory deficits noted Sensorium / Orientation: awake and alert Motor Exam: strength 5/5 throughout Psych mental status grossly normal Heart Score History: Slightly/Non-Suspicious ECG: Normal Age: </= 45 years Risk Factors: >/= 3 Risk Factors or History of CAD Score: 2 MDM MDM MDM Narrative Medical decision making narrative: EKG was obtained. On my interpretation, it showed a normal sinus rhythm with a rate of 88. MO interval, QRS interval, and QTc intervals were all normal. [place] was normal. There are no acute ST or T wave changes. Portable 1 view chest x-ray was obtained. On my interpretation, lung wu are clear. There is normal cardiac silhouette. Bony thorax is normal. There is no acute process noted. Radiologist also interpreted the x- ray and agrees. CBC shows a mild leukocytosis of 11.4. Basic metabolic profile was obtained and was essentially within normal limits. High-sensitivity troponin was less than 3. Patient was given aspirin here. Patient has a HEART score of 2. Patient was advised that this is low risk for acute cardiac event. Patient was advised that this could also be due to reflux disease or chest wall inflammation. Patient was instructed to follow-up with her primary care physician in 5 to 7 days. Patient understood and was agreeable with the plan. All questions were answered. Lab Data Labs: Laboratory Results - last 24 hr 01/14/22 01/14/22 09:45 09:45 WBC 11.4 H RBC 4.65 Hgb 14.2 Hct 44.0 MCV 94.6 MCH 30.5 MCHC 32.3 RDW Std Deviation 43.5 RDW Coeff of Dianna 12.5 Plt Count 364 MPV 10.0 Immature Gran % (Auto) 0.400 Neut % (Auto) 64.8 Lymph % (Auto) 27.9 [place] % (Auto) 5.5 Eos % (Auto) 0.9 Baso % (Auto) 0.5 Absolute Neuts (auto) 7.4 Absolute Lymphs (auto) 3.17 Nucleated RBC % 0 Sodium 137 Potassium 3.7 Chloride 104 Carbon Dioxide 29.0 Anion Gap 4 L BUN 17 Creatinine 1.17 H Estim Creat Clear Calc 46.30 Est GFR (MDRD) Af Amer 65 Est GFR (MDRD) Non-Af 53 L BUN/Creatinine Ratio 14.5 Glucose 133 H Calcium 8.8 Troponin I High Sens < 3 L Radiography Chest X-Ray - ED: 1 View, Read by ED Physician, Read by Radiologist, Normal and No Acute Disease Diagnostic Testing: Clinical Impression(s) from Imaging Studies Chest X-Ray 01/14/22 09:44 IMPRESSION: Normal x-ray examination of the chest. Electronically Signed: Carlos Agarwal MD at 10:09 EDT , EKG Initial EKG: Attestation: I personally reviewed and interpreted this EKG as follows: Interpretation: Sinus Rhythm (88) and No Acute Injury Pattern Prior EKG tracings: available for review Prior: Unchanged (11/10/2020) Discharge Plan Triage Chief Complaint: Chest Pain ED Provider: Josue Nolasco Dx/Rx/DC Orders Clinical Impression: Chest pain, Hypertension Instructions: ED Chest Pain, Uncertain Cause Prescriptions: No Action rosuvastatin [Crestor] 40 mg tablet 40 mg PO DAILY Qty: 30 RF: 0 paroxetine HCl 40 mg tablet 40 mg PO DAILY RF: 0 alprazolam [Xanax] 0.5 mg tablet 0.5 mg PO QHS PRN (Reason: Anxiety) RF: 0 ergocalciferol (vitamin D2) 1,250 mcg (50,000 unit) capsule 1 cap PO DAILY RF: 0 levothyroxine 175 mcg tablet 175 mcg PO DAILY Qty: 30 RF: 4 hydrochlorothiazide 12.5 MG capsule 12.5 mg PO DAILY RF: 0 albuterol sulfate 90 mcg/actuation HFA aerosol inhaler 2 puff inhalation Q4H PRN (Reason: shortness of breath or wheezing) Qty: 1 RF: 6 lisinopril 10 mg tablet 10 mg PO DAILY Qty: 90 RF: 3 Primary Care Provider: Carlos Chris Chi Referrals: Neri Costello MD [STAFF PHYSICIAN] - 5-7 Days Carlos Chris Chi, MD [Primary Care Provider] - 5-7 Days Disposition Disposition: Home, Self Care
[2022-01-14] MEDS: Aspirin 81 MG TAB.CHEW 324 MG PO (10:37)
[2022-01-14 10:39] VITALS: PULSE 71; RESP 13; O2SAT 99
== END 2022-01-14 10:59 | disposition home or self-care (01) ==
PROVIDERS: Emergency Provider Emergency Medicine; PCP Family Medicine Geriatric Medicine; Visit Provider Emergency Medicine
DX: R07.9 Chest pain, unspecified (principal); I10 Essential (primary) hypertension; I25.10 Atherosclerotic heart disease of native coronary artery without angina pectoris; E78.5 Hyperlipidemia, unspecified; G47.33 Obstructive sleep apnea (adult) (pediatric)
CPT/HCPCS: 71045; 80048; 84484; 85025; 93005; 99285; A4216

== ENCOUNTER 2022-01-15 11:40 | Outpatient (CLI) | payer MEDICAID, SELFPAY ==
[2022-01-15 13:05] LABS: Thyroid Stim Hormone (TSH) 0.32 uIU/mL (0.358-3.74)
== END 2022-01-15 23:59 | disposition home or self-care (01) ==
LOC: POLAB3 11:41
PROVIDERS: PCP Family Medicine Geriatric Medicine; Visit Provider Family Medicine Geriatric Medicine
DX: E03.9 Hypothyroidism, unspecified (principal)
CPT/HCPCS: 36415; 84443

== ENCOUNTER → 2022-02-11 | Outpatient (CLI) | payer MEDICAID, SELFPAY ==
--- NOTE | 2022-02-11 17:56 | STRESSREP_ITS ---
Stress Test Report Exercise [place]ger. Perfusion stress test. 46-year-old lady with a history of chest pain. Stress protocol: Resting EKG demonstrates normal sinus rhythm with a rate of 68 bpm normal intervals are noted resting blood pressure is 118/60 mmHg. The patient exercised according to regular Ramsey protocol for total duration of 4 minutes and 15 seconds. Patient completed 1 minute and 15 seconds into stage II of the Ramsey protocol the maximum heart rate attained 146 bpm which was 82% of max impact at heart rate the maximum workload was 7 metabolic equivalents. At rest there were no ST or T wave changes noted to suggest ischemia and at peak exercise upsloping ST changes were noted with did not meet the criteria for ischemia. No clinical angina was noted the test was terminated due to dyspnea. The peak blood pressure is 154/70 mmHg. Myocardial perfusion protocol. 14.1 mCi of technetium 99m sestamibi was injected at rest. The patient exerc ised according to regular Ramsey protocol for total duration of 4 minutes. At peak exercise 44.4 mCi of technetium 99m sestamibi was injected stress images were obtained stress and rest images were reconstructed and compared in the short axis vertical long and horizontal long axis. Gated images were also obtained to Perfusion SPECT analysis: Review of the stress images demonstrate normal uptake of tracer noted in all areas of the myocardium. The resting images similarly demonstrate normal uptake of tracer noted in all areas of the myocardium. No previous infarct is noted. Gated SPECT analysis, The gated ejection fraction is 75%. Conclusion: Normal exercise myocardial perfusion stress test at a moderate workload. Preserved ejection fraction.
== END | disposition home or self-care (01) ==
LOC: CVS 06:37
PROVIDERS: PCP Family Medicine Geriatric Medicine; Referring Provider Physician Assistant Medical; Visit Provider Physician Assistant Medical
DX: I25.84 Coronary atherosclerosis due to calcified coronary lesion (principal); R07.9 Chest pain, unspecified; I10 Essential (primary) hypertension
CPT/HCPCS: 78452; 93017; A9500; A4216

== ENCOUNTER → 2022-03-09 | Outpatient (CLI) | payer MEDICAID, SELFPAY ==
[2022-03-09 12:57] LABS: Albumin, Serum 3.3 g/dL (3.2-5.0); BUN 13 mg/dL (7-18); BUN/Creat Ratio 12.3 RATIO (10-20); Calcium,Total 8.9 mg/dL (8.5-10.1); Chloride 107 mmol/L (98-107); Creatinine, Serum 1.06 mg/dL (0.55-1.02); EST Glomerular Filtration Rate 60 mL/min (>60); Est Glom Filt Rate - Afr Amer 72 mL/min (>60); Glucose 98 mg/dL (74-106); Phosphorus 3.4 mg/dL (2.5-4.9); Potassium 4.5 mmol/L (3.5-5.1); Sodium Level 139 mmol/L (136-145); T4 Free Direct 2.16 ng/dL (0.76-1.46); Thyroid Stim Hormone (TSH) 0.01 uIU/mL (0.358-3.74)
== END | disposition home or self-care (01) ==
LOC: LAB 12:07
PROVIDERS: Internal Medicine Endocrinology, Diabetes & Metabolism; PCP Family Medicine Geriatric Medicine; Referring Provider Internal Medicine Nephrology; Visit Provider Internal Medicine Nephrology
DX: N18.31 Chronic kidney disease, stage 3a (principal); E89.0 Postprocedural hypothyroidism
CPT/HCPCS: 36415; 80069; 84439; 84443

== ENCOUNTER → 2022-04-27 | Outpatient (CLI) | payer MEDICAID, SELFPAY ==
[2022-04-27 12:25] LABS: Absolute Lymphocyte Count 2.86 X10^3/uL (0.83-4.51); Absolute Neutrophil Count 7.1 X10^3/uL (2.0-7.7); Basophil# 0.06 X10^3/uL; Basophil% 0.5 % (0-1); Eosinophil# 0.13 X10^3/uL; Eosinophils% 1.2 % (0-5); Hematocrit 39.5 % (37-47); Hemoglobin 12.6 g/dL (12.0-15.0); Lymphocyte # 2.86 X10^3/ul (0.83-4.51); Lymphocyte % 26.2 % (19-41); Mean Corp Hgb Conc 31.9 g/dL (32-36); Mean Corpuscular Hgb 29.4 pg (27.0-32.0); Mean Corpuscular Volume 92.3 fL (81-99); Mean Platelet Vol. 10.4 fl (6.2-12.0); Monocyte# 0.72 X10^3/uL; Monocyte% 6.6 % (0-10); NRBC Flagged by Analyzer 0 % (0-5); Neutrophil # 7.11 X10^3/uL (2.7-7.7); Platelet Count 363 K/mm3 (150-450); RBC Distribution Width CV 12.6 % (11.6-14.6); RBC Distribution Width SD 42.4 fl (35.1-43.9); Red Blood Count 4.28 M/mm3 (4.2-5.4); White Blood Count 10.9 K/mm3 (4.4-11.0)
[2022-04-27 12:57] LABS: Vitamin D,25 Hydroxy 59.3 ng/mL
[2022-04-27 13:02] LABS: ALB/GLOB Ratio 0.7 RATIO (0.9-2.4); AST(SGOT) 39 U/L (15-37); Alanine Aminotransfer ALT/SGPT 43 U/L (13-56); Albumin, Serum 3.1 g/dL (3.2-5.0); Alkaline Phosphatase 58 U/L (45-117); Anion Gap 8 (5-15); BUN 12 mg/dL (7-18); Calcium,Total 8.9 mg/dL (8.5-10.1); Chloride 105 mmol/L (98-107); Creatinine, Serum 0.86 mg/dL (0.55-1.02); EST Glomerular Filtration Rate 76 mL/min (>60); Est Glom Filt Rate - Afr Amer 92 mL/min (>60); Globulin 4.2 g/dL (2.2-4.2); Glucose 91 mg/dL (74-106); Potassium 3.9 mmol/L (3.5-5.1); Protein, Total 7.3 g/dL (6.4-8.2); Sodium Level 137 mmol/L (136-145); Thyroid Stim Hormone (TSH) 0.03 uIU/mL (0.358-3.74); Uric Acid 7.1 mg/dL (2.6-6.0)
== END | disposition home or self-care (01) ==
LOC: POLAB3 11:25
PROVIDERS: PCP Family Medicine Geriatric Medicine; Visit Provider Family Medicine Geriatric Medicine
DX: I10 Essential (primary) hypertension (principal); E55.9 Vitamin D deficiency, unspecified; M10.9 Gout, unspecified
CPT/HCPCS: 36415; 80053; 82306; 84443; 84550; 85025

== ENCOUNTER → 2022-06-18 | Outpatient (CLI) | payer MEDICAID, SELFPAY ==
[2022-06-18 13:00] LABS: T4 Free Direct 1.63 ng/dL (0.76-1.46); Thyroid Stim Hormone (TSH) 0.02 uIU/mL (0.358-3.74)
== END | disposition home or self-care (01) ==
LOC: LAB 12:09
PROVIDERS: Nurse Practitioner Family; PCP Family Medicine Geriatric Medicine; Referring Provider Family Medicine Geriatric Medicine; Visit Provider Family Medicine Geriatric Medicine
DX: E03.9 Hypothyroidism, unspecified (principal)
CPT/HCPCS: 36415; 84439; 84443

== ENCOUNTER → 2022-07-13 | Outpatient (CLI) | payer MEDICAID, SELFPAY | END | disposition home or self-care (01) | LOC: PSN 09:12 | PROVIDERS: PCP Family Medicine Geriatric Medicine; Referring Provider Family Medicine Geriatric Medicine; Visit Provider Family Medicine Geriatric Medicine | DX: R68.83 Chills (without fever) (principal) | CPT/HCPCS: 87635; 87804; 87807; C9803; U0003; U0005 ==

== ENCOUNTER → 2022-07-15 | Outpatient (CLI) | payer MEDICAID, SELFPAY ==
[2022-07-15 15:05] LABS: Absolute Lymphocyte Count 2.11 X10^3/uL (0.83-4.51); Basophil# 0.03 X10^3/uL; Basophil% 0.2 % (0-1); Lymphocyte # 2.11 X10^3/ul (0.83-4.51); Lymphocyte % 14.4 % (19-41); Mean Corp Hgb Conc 33.3 g/dL (32-36); Mean Corpuscular Hgb 30.4 pg (27.0-32.0); Mean Corpuscular Volume 91.3 fL (81-99); Mean Platelet Vol. 10.1 fl (6.2-12.0); Monocyte% 2.7 % (0-10); NRBC Flagged by Analyzer 0 % (0-5); Neutrophil # 11.98 X10^3/uL (2.7-7.7); Neutrophil % 81.5 % (47-70); Platelet Count 402 K/mm3 (150-450); RBC Distribution Width CV 12.8 % (11.6-14.6); RBC Distribution Width SD 42.4 fl (35.1-43.9); Red Blood Count 4.27 M/mm3 (4.2-5.4); White Blood Count 14.7 K/mm3 (4.4-11.0)
[2022-07-15 15:57] LABS: ALB/GLOB Ratio 0.8 RATIO (0.9-2.4); AST(SGOT) 32 U/L (15-37); Alanine Aminotransfer ALT/SGPT 38 U/L (13-56); Albumin, Serum 3.2 g/dL (3.2-5.0); Alkaline Phosphatase 55 U/L (45-117); Anion Gap 8 (5-15); BUN 23 mg/dL (7-18); BUN/Creat Ratio 21.9 RATIO (10-20); Calcium,Total 8.4 mg/dL (8.5-10.1); Chloride 104 mmol/L (98-107); Creatinine, Serum 1.05 mg/dL (0.55-1.02); EST Glomerular Filtration Rate 60 mL/min (>60); Est Glom Filt Rate - Afr Amer 73 mL/min (>60); Glucose 121 mg/dL (74-106); Potassium 3.8 mmol/L (3.5-5.1); Protein, Total 7.2 g/dL (6.4-8.2); Sodium Level 137 mmol/L (136-145)
[2022-07-15 17:31] LABS: International Normalized Ratio 1.1; Prothrombin Time (Protime)PT. 13.5 SECONDS (11.7-14.9)
== END | disposition home or self-care (01) ==
LOC: POLAB3 13:52
PROVIDERS: PCP Family Medicine Geriatric Medicine; Visit Provider Family Medicine Geriatric Medicine
DX: Z01.818 Encounter for other preprocedural examination (principal)
CPT/HCPCS: 36415; 80053; 85025; 85610

== ENCOUNTER 2022-08-10 05:51 | Day surgery (SDC) | payer MEDICAID, SELFPAY ==
[2022-08-10] VITALS (18 sets, daily range): BP systolic 104–132; BP diastolic 48–76; PULSE 76–90; RESP 15–18; TEMP 36.1–36.8; O2SAT 95–100; BMI 38.0
[2022-08-10] MEDS: Lactated Ringers 1,000 ML 80 ML IV ×2 (06:29→12:13)
--- NOTE | 2022-08-10 06:30 | RAD_ITS ---
INDICATION: Pain. EXAMINATION/TECHNIQUE: X-RAY - RIGHT XR Foot 2 Views 5 VIEWS COMPARISON: None. FINDINGS: 4 intraoperative images demonstrate fusion of the first metatarsophalangeal joint with placement of a plate and screws along the dorsum of the joint as well as a screw placed obliquely through the joint space. Please refer to the operative report for further details. RAD/Foot 2 Views IMPRESSION: Fusion of the first metatarsophalangeal joint and the OR. Electronically Signed: Marques Ortiz DO at 17:02 EDT ,
[2022-08-10] MEDS: Cefazolin 2 GM in 0.9% Normal Saline 100 ML IV (07:36)
[2022-08-10] MEDS: Bupivacaine 0.25% 30 ML Vial (10:00)
[2022-08-10] MEDS: Lidocaine 1% (30 ml sdv) 30 ML Vial (10:00)
--- NOTE | 2022-08-10 10:33 | PCM.DC.SUM ---
Providers Primary Care Physician: Dr. Carlos Chris MD Reason For Visit: RT FOOT MPJ FUSION ARTHRODESIS Medications at Discharge Home Medications hydrochlorothiazide 12.5 mg capsule 12.5 mg PO DAILY blood pressure 01/17/17 rosuvastatin 40 mg tablet (Crestor) 40 mg PO DAILY #30 tabs 08/07/20 paroxetine HCl 40 mg tablet 40 mg PO DAILY 10/28/20 alprazolam 0.5 mg tablet (Xanax) 0.5 mg PO QHS PRN Anxiety 04/06/21 lisinopril 10 mg tablet 10 mg PO DAILY #90 tabs 10/19/21 levothyroxine 175 mcg tablet 175 mcg PO DAILY #30 tabs 12/30/21 aspirin 81 mg tablet,delayed release 81 mg PO DAILY 01/14/22 allopurinol 100 mg tablet 100 mg PO DAILY 03/19/22 pantoprazole 40 mg tablet,delayed release 40 mg PO DAILY 03/19/22 albuterol sulfate 90 mcg/actuation aerosol inhaler 2 puff inhalation Q4H PRN shortness of breath or wheezing #1 device 05/25/22 cholecalciferol (vitamin D3) 125 mcg (5,000 unit) tablet (Vitamin D3) 125 mcg PO DAILY 08/04/22 aspirin 325 mg tablet 325 mg PO DAILY 20 days #20 tabs 08/10/22 doxycycline hyclate 100 mg capsule 100 mg PO DAILY #14 caps 08/10/22 tramadol 37.5 mg-acetaminophen 325 mg tablet 1 tab PO Q6H PRN pain 7 days #28 tabs 08/10/22 Weight / BMI Weight Weight: 88.5 kg Body Mass Index (BMI) 38.0 D/C Instructions Discharge Diet: No restrictions Discharge Activity: May Shower (With cast bag covering right leg) Weight Bearing Status: No weight bearing (Patient is to remain nonweightbearing to the right lower extremity with use of crutches or knee scooter) Keep extremity elevated above heart level: Right Leg (Elevate right lower extremity at all times of rest for postoperative edema control) Call your doctor if your incision/area has: Increased Pain/ Swelling Call your doctor if you observe: Fever of 101 or Higher, Chest pain, Calf discomfort and Uncontrolled pain Change Dressing in: do not change dressing (Physician will change dressings at first postoperative visit) Remove Dressing in: do not remove dressing Cleanse incision/area with: Do not get Incision Wet and Keep Dressing Clean & Dry (Keep dressings clean dry and intact to the right foot) Please Follow Up With: Joshua Chin DPM When: Patient has scheduled postoperative visit in 1 week Meaningful Use Info Meaningful Use Diagnoses (Choose all that apply): None applicable Discharge Plan Admission Attending Provider: Joshua Chin Primary Care Provider: Carlso Chris Chi Discharge Orders/Prescriptions Prescriptions: New tramadol-acetaminophen 37.5-325 mg tablet 1 tab PO Q6H PRN (Reason: pain) 7 Days Qty: 28 0RF aspirin 325 mg tablet 325 mg PO DAILY 20 Days Qty: 20 0RF Rx Instructions: Take 1 tablet daily doxycycline hyclate 100 mg capsule 100 mg PO DAILY Qty: 14 0RF Rx Instructions: Take 1 tablet daily for 14 days No Action rosuvastatin [Crestor] 40 mg tablet 40 mg PO DAILY Qty: 30 0RF paroxetine HCl 40 mg tablet 40 mg PO DAILY alprazolam [Xanax] 0.5 mg tablet 0.5 mg PO QHS PRN (Reason: Anxiety) allopurinol 100 mg tablet 100 mg PO DAILY pantoprazole 40 mg tablet,delayed release (DR/EC) 40 mg PO DAILY levothyroxine 175 mcg tablet 175 mcg PO DAILY Qty: 30 4RF albuterol sulfate 90 mcg/actuation HFA aerosol inhaler 2 puff inhalation Q4H PRN (Reason: shortness of breath or wheezing) Qty: 1 6RF Rx Instructions: administer with spacer hydrochlorothiazide 12.5 MG capsule 12.5 mg PO DAILY Label Comments: TAKE ONE CAPSULE BY MOUTH DAILY cholecalciferol (vitamin D3) [Vitamin D3] 125 mcg (5,000 unit) Tablet 125 mcg PO DAILY lisinopril 10 mg tablet 10 mg PO DAILY Qty: 90 3RF aspirin 81 mg tablet,delayed release (DR/EC) 81 mg PO DAILY Referrals / Follow Up: Carlos Chris Chi, MD [Primary Care Provider] - Disposition Disposition (needs filled in before D/C Order can be placed): Home, Self Care
--- NOTE | 2022-08-10 10:40 | RAD_ITS ---
STUDY: X-RAY - RIGHT FOOT CLINICAL: Female, 46 years old. Post-operative First MTPJ Arthrodesis TECHNIQUE: 3 view(s) of the foot. COMPARISON: Comparison is made with prior study dated 03/17/2022. FINDINGS: Normal talus, calcaneus, and tarsal bones. Normal visualized subtalar, talonavicular, calcaneocuboid, tarsal and tarsometatarsal articulations. Normal metatarsi. The patient is status post fusion at the first metatarsophalangeal joint. Normal tibial and fibular sesamoid bones. Normal interphalangeal joint of the great toe. Normal phalanges of the great toe. Normal second through fifth metatarsophalangeal joints. Normal interphalangeal joints and phalanges of the lesser toes. Postoperative soft tissue changes. RAD/Foot min 3 Views IMPRESSION: Status post arthrodesis at the first metatarsophalangeal joint. Postoperative soft tissue changes. Electronically Signed: Carlos Agarwal MD at 15:00 EDT ,
--- NOTE | 2022-08-10 10:48 | PCM.OPRPT ---
Problems Associated Problem List Diagnoses (1) Acquired hallux limitus of right foot: (2) Arthritis of first metatarsophalangeal (MTP) joint of right foot: Report of Operation Date of Procedure: 08/10/22 Pre-Operative Diagnosis: Hallux limitus with painful degenerative joint disease first metatarsophalangeal joint, right foot Post-Operative Diagnosis: Hallux limitus with painful degenerative joint disease first metatarsophalangeal joint, right foot Surgery/Procedure Performed:: 1. First metatarsal phalangeal joint arthrodesis right foot 2. extensor hallucis longus tendon lengthening Description of Surgical Findings:: See operative report for findings Surgeon: Joshua Chin filler shredding machine loader: Greer Clemons DPM PGY-2 Type of Anesthesia: General and Local (10 cc 1:1 mixture of 1% Lidocaine Plain and 0.25% Marcaine plain) Specimen's removed: None Drains: None Estimated Blood Loss (mL): < 5mL Description of Procedure: HPI/indication: Patient is a 46-year-old female who presented to the office with complaints of first metatarsophalangeal joint pain and pain in the right midfoot for duration of 1 year with worsening over the last 3 months. She underwent conservative management of supportive shoe gear change and orthotics with Barnes's extension to her right foot. Radiographs demonstrated arthritic changes of the first metatarsophalangeal joint with examination demonstrating stage III hallux limitus with pain and crepitation during range of motion, specifically with extreme dorsiflexion. She reports improvement in her midfoot pain with the inserts however her pain in the first metatarsophalangeal joint did not improve. She wishes to undergo surgical intervention for fusion of the first metatarsophalangeal joint. At this point in time due to her pain despite orthotic intervention she would like to undergo surgical correction of the first metatarsophalangeal joint of the right foot with arthrodesis of the said joint. She has been cleared for surgery by her PCP. I reviewed other surgical options and conservative management. She would like to continue with the surgical intervention to undergo first metatarsophalangeal joint arthrodesis of the right foot due to her continued pain despite conservative management measures so far. I discussed all the risks and benefits with her. I discussed risks include but are not limited to pain, continued pain, CRPS, deformity, continued deformity, overcorrection, under correction, numbness, swelling/edema, neuritis, scarring, poor cosmetic result, bleeding, blood clots, hardware failure, symptomatic hardware, the need for further surgery/procedures, fracture, nonunion, delayed union, nonhealing/delayed healing, dehiscence, infection, allergic reaction, transfer lesions, loss of function, postoperative arthritis, weakness, shoe gear problems, inability to walk, inability to wear shoes, floating toe, contracted toe, deviated toe, stroke, heart attack, addiction to pain medication, loss of limb, and loss of life. The patient voiced understanding and agreement. The patient was able to repeat these back. The alternative options were discussed and reviewed with the patient in great detail, reviewed all the risks versus possible benefits of all options. I discussed the procedure in detail and expected timeframe of recovery/postoperative course with her. Patient expressed understanding and agreement. The consent forms were reviewed with the patient and the patient freely signed them. No guarantees were given. She was scheduled to undergo first metatarsophalangeal joint arthrodesis of the right foot at [facility] on 08/10/2022. Procedure: Under mild sedation patient was brought into the operating room placed on the table in the supine position. Following IV sedation pneumatic calf tourniquet was placed about the patient's right calf. The right hip was bumped in the right foot elevated. The foot was then scrubbed, prepped, and draped in the usual aseptic manner. The foot was exsanguinated with an Esmarch bandage and the pneumatic calf tourniquet was inflated to 250 mmHg. At this time attention was directed to the dorsal aspect of the first metatarsophalangeal joint where a linear longitudinal incision was made medial and parallel to the extensor hallucis longus tendon. The incision was deepened through blunt and sharp dissection. The EHL tendon was identified and retracted laterally and protected throughout the duration of this case. A linear incision was made through the capsule of the first metatarsophalangeal joint with the capsular structures reflected medially and laterally and the first metatarsal head was exposed at the operative field. Upon capsulotomy there is only a scant amount of joint fluid that emerged from the first metatarsophalangeal joint. It is noted that the head of the first metatarsal central, lateral, and dorsal lateral were denuded of cartilage to the level of bone and the corresponding portion of the proximal phalanx base was also noted to be degenerated and denuded of all cartilage creating [id number] degenerative joint disease. There was also noted to be cartilaginous chips floating within the joint with a santiago denuded appearance of the medial aspect of the first metatarsal head. There is also mild arthritic spurring of the first metatarsal head. McGlamery elevator was used to free the the metatarsal from the plantar aspect of the soft tissue along with any soft tissue contractures. A rongeur was used all dorsal and medial osteophytes from the first metatarsal head and smoothed with a rasp. Following resection of bone a 0.0062 K wire was inserted centrally at the head of the first metatarsal. Position confirmed via fluoroscopy. A metatarsal head reamer was utilized to prepare the head of the first metatarsal. A conical barrel tester was also utilized to shape the head of the first metatarsal to optimize arthrodesis position. The K wire was removed. And a 0.0062 K wire was then placed centrally into the proximal phalanx and a phalangeal reamer was utilized to prepare the proximal phalanx. A 0.0062 K wire was then utilized to fenestrate the base of the proximal phalanx and the head of the first metatarsal until pinpoint bleeding was visualized from the subchondral bone. This bleeding will promote adequate fusion of the first metatarsal phalangeal joint. Next the site was flushed with copious amounts of normal sterile saline. At this time an Arthrex dorsal MaxForce first metatarsal phalangeal joint arthrodesis plate was placed over the joint and anchored distally and proximally with a smooth olive wire. Next fluoroscopy was utilized to determine the adequate plate position and position of the fusion site. A footplate was utilized to observe the digit which was noted to be in 10 degrees of dorsiflexion relative to the ground and 15 degrees relative to the first metatarsal with the foot loaded locking the midtarsal joint. At this time utilizing the compression guide and garrett compression was achieved through the max compression plate. Next a temporary 0.0062 K wire was driven across the first metatarsophalangeal joint from distal medial to proximal lateral under fluoroscopy to hold the fusion in place. At this time multiple fluoroscopic views were performed in the fusion position deemed excellent. Following AO principles a 14 mm cortical nonlocking screw was placed in the most distal aspect of the plate. Next a 14 mm locking screw was placed in the distal lateral hole and an 18 mm locking screw in the distal medial hole. Next a 16 mm cortical nonlocking screw was placed at the proximal oblong hole of the max compression plate. Following this a 16mm locking screw was placed in the most proximal hole of the max compression plate. Next a 2-O drill was utilized to create a commercial helicopter pilot hole following the K wire across the first metatarsophalangeal joint. This was measured and a 3-O headless compression screw measuring 30 mm was placed across the first metatarsophalangeal joint to achieve further compression. Upon doing so the first metatarsophalangeal joint was compressed with no gapping. This was observed under fluoroscopy and deemed excellent fixation. The foot was again loaded and the hallux was positioned in 10 degrees of dorsiflexion relative to the ground and 15 degrees relative to the first metatarsal with excellent compression of the arthrodesis site. The site was then flushed with copious amounts of normal sterile saline. At this time it was noted that the distal aspect of her hallux did cock up, however this was present prior to surgical intervention. The extensor tendon was lengthened to allow the distal hallux to sit rectus. Following lengthening the tendon was reinforced with 4-0 Vicryl. The site was again flushed with copious amounts of normal sterile saline. The capsular tissue was reapproximated with a 4-0 Vicryl. The subcutaneous layer was reapproximated with a 4-0 Monocryl. The skin was then reapproximated with a 3-0 Prolene. At this time the pneumatic calf tourniquet was deflated and a prompt hyperemic response was noted to the digits of the right foot. A postoperative block was then performed about the surgical site consisting of 10 cc of a 1:1 mixture of 1% lidocaine plain and 0.25% Marcaine plain. The surgical site was then dressed with Betadine soaked Adaptic 4 x 4 fluff, 4 x 4 gauze, Kerlix, web roll, a 4 inch Ramon and a 6 inch Ramon. A posterior splint was then applied to the right lower extremity and anchored with a 4 inch Ramon and a 6 inch Ramon. The patient tolerated the procedure and anesthesia well and was transported the PACU with vital signs stable and vascular status intact to the right foot. She was instructed to keep the dressings clean dry and intact to the right foot. She will be nonweightbearing to the right lower extremity with assistance of crutches and a knee scooter. Family is aware of her postoperative instructions and discharge instructions given to family. She will follow-up in office for her postoperative care. Grafts/Implants Used: Arthrex MaxForce MTP J fusion plate, Screws x 6 Complications None Admit VTE Documentation VTE Present on Admission: No VTE Mechan Device Prophylaxis: SCD's VTE Pharm Prophylaxis ordered?: No Reason prophylaxis not ordered:: Procedure Not Indicated
== END 2022-08-10 16:03 | disposition home or self-care (01) ==
LOC: SDC 05:52 → AC 05:54
PROVIDERS: PCP Family Medicine Geriatric Medicine; Referring Provider Student in an Organized Health Care Education/Training Program; Visit Provider Student in an Organized Health Care Education/Training Program
PROC: (CPT 28750; principal; 2022-08-10 07:15)
DX: M20.5X1 Other deformities of toe(s) (acquired), right foot (principal); N18.30 Chronic kidney disease, stage 3 unspecified; M19.071 Primary osteoarthritis, right ankle and foot; J45.909 Unspecified asthma, uncomplicated; G47.33 Obstructive sleep apnea (adult) (pediatric); E78.5 Hyperlipidemia, unspecified; I12.9 Hypertensive chronic kidney disease with stage 1 through stage 4 chronic kidney disease, or unspecified chronic kidney disease; Z99.89 Dependence on other enabling machines and devices; F32.A Depression, unspecified
CPT/HCPCS: 28750; 28306; 01480; 73620; 73630; 76000; C1713; J7120; J2405

== ENCOUNTER → 2022-10-14 | Outpatient (CLI) | payer MEDICAID, SELFPAY | END | disposition home or self-care (01) | LOC: PSN 08:49 | PROVIDERS: PCP Family Medicine Geriatric Medicine; Referring Provider Family Medicine Geriatric Medicine; Visit Provider Family Medicine Geriatric Medicine | DX: R68.83 Chills (without fever) (principal) | CPT/HCPCS: 87635; 87804; 87807; C9803; U0003; U0005 ==

== ENCOUNTER → 2022-11-18 | Outpatient (CLI) | payer MEDICAID, SELFPAY ==
[2022-11-18 13:27] LABS: Absolute Lymphocyte Count 3.47 X10^3/uL (0.83-4.51); Absolute Neutrophil Count 3.6 X10^3/uL (2.0-7.7); Basophil# 0.08 X10^3/uL; Eosinophil# 0.08 X10^3/uL; Hematocrit 43.8 % (37-47); Hemoglobin 13.8 g/dL (12.0-15.0); Lymphocyte # 3.47 X10^3/ul (0.83-4.51); Mean Corp Hgb Conc 31.5 g/dL (32-36); Mean Corpuscular Hgb 29.6 pg (27.0-32.0); Mean Corpuscular Volume 93.8 fL (81-99); Mean Platelet Vol. 11.7 fl (6.2-12.0); Monocyte# 0.44 X10^3/uL; Monocyte% 5.7 % (0-10); NRBC Flagged by Analyzer 0 % (0-5); Neutrophil # 3.58 X10^3/uL (2.7-7.7); Neutrophil % 46.5 % (47-70); Platelet Count 346 K/mm3 (150-450); RBC Distribution Width CV 15.9 % (11.6-14.6); RBC Distribution Width SD 54.4 fl (35.1-43.9); Red Blood Count 4.67 M/mm3 (4.2-5.4); White Blood Count 7.7 K/mm3 (4.4-11.0)
[2022-11-18 14:11] LABS: Hepatitis C Antibody Non-Reactive (Nonreactive)
[2022-11-18 14:21] LABS: ALB/GLOB Ratio 0.9 RATIO (0.9-2.4); AST(SGOT) 48 U/L (15-37); Alanine Aminotransfer ALT/SGPT 37 U/L (13-56); Albumin, Serum 3.7 g/dL (3.2-5.0); Alkaline Phosphatase 65 U/L (45-117); Anion Gap 11 (5-15); BUN 8 mg/dL (7-18); Calcium,Total 8.9 mg/dL (8.5-10.1); Chloride 105 mmol/L (98-107); Creatinine, Serum 1.14 mg/dL (0.55-1.02); EST Glomerular Filtration Rate 55 mL/min (>60); Est Glom Filt Rate - Afr Amer 66 mL/min (>60); Globulin 4.1 g/dL (2.2-4.2); Glucose 76 mg/dL (74-106); Potassium 3.3 mmol/L (3.5-5.1); Protein, Total 7.8 g/dL (6.4-8.2); Sodium Level 143 mmol/L (136-145)
== END | disposition home or self-care (01) ==
LOC: POLAB3 09:43
PROVIDERS: PCP Family Medicine Geriatric Medicine; Visit Provider Family Medicine Geriatric Medicine
DX: I10 Essential (primary) hypertension (principal)
CPT/HCPCS: 36415; 80053; 84443; 85025; 86803

== ENCOUNTER 2022-11-19 18:49 | Emergency (ER) | payer MEDICAID, SELFPAY ==
[2022-11-19 18:50] VITALS: TEMP 36.3; BMI 33.4
[2022-11-19 18:53] VITALS: BP 122/97; PULSE 74; RESP 15; TEMP 36.8; O2SAT 98
--- NOTE | 2022-11-19 19:01 | RAD_ITS ---
STUDY: X-RAY - LEFT RADIUS AND ULNA REASON FOR EXAM: Female, 47 years old. Fell and was dragged by a dog on leash. Scrapes on the palm and bruising third finger. Forearm pain. TECHNIQUE: 2 view(s) of the forearm. COMPARISON: None. FINDINGS: There is no demonstrated soft tissue swelling. Normal visualized radius. Normal visualized ulna. There is no acute fracture, dislocation or destructive osseous pathology. The wrist and elbow are intact. RAD/Forearm 2 Views IMPRESSION: Normal x-ray examination of the left radius and ulna. Electronically Signed: Marques Ortiz DO at 19:30 EST ,
--- NOTE | 2022-11-19 19:02 | EX.ED.UPPERE ---
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 She states that she was at a park, and forgot to lock the puppies leash. The dog ran off, and dragged her to the ground. She basically fell onto both of her hands, but mainly the left 1 which was outstretched. She has pain in her fifth digit radiating all the way up towards her elbow. She denies hitting her head or loss of consciousness, no other injury. While she sustained abrasions to the palms of both hands, mainly in the heel of the hand, she believes that her tetanus immunization is up-to-date, within the last 5 years. She has pain with movement of her fifth finger on her left hand. 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 Asthma Cardiology follow-up encounter Clostridium difficile infection Coronary artery calcification CPAP (continuous positive airway pressure) dependence DDD (degenerative disc disease), thoracic Depression Essential (primary) hypertension Fatty liver Gastric reflux History of echocardiogram History of renal disease History of stress test Hyperlipidemia Hypertension Hypothyroidism Knee pain Non-smoker Obesity Osteoarthritis Pain aggravated by walking Paresthesia Postablative hypothyroidism Right foot pain Right knee pain Segmental and somatic dysfunction of thoracic region Shortness of breath on exertion Stage 3 chronic kidney disease Vitamin D deficiency Wears dentures Wears glasses Home Medications hydrochlorothiazide 12.5 mg capsule 12.5 mg PO DAILY blood pressure 01/17/17 [History Last Taken 01/21/19] rosuvastatin 40 mg tablet (Crestor) 40 mg PO DAILY #30 tabs 08/07/20 [Rx Last Taken Unknown] paroxetine HCl 40 mg tablet 40 mg PO DAILY 10/28/20 [History Last Taken Unknown] alprazolam 0.5 mg tablet (Xanax) 0.5 mg PO QHS PRN Anxiety 04/06/21 [History Last Taken Unknown] levothyroxine 175 mcg tablet 175 mcg PO DAILY #30 tabs 12/30/21 [Rx Last Taken 08/10/22 05:00] aspirin 81 mg tablet,delayed release 81 mg PO DAILY 01/14/22 [History Last Taken 08/02/22] allopurinol 100 mg tablet 100 mg PO DAILY 03/19/22 [History Last Taken Unknown] pantoprazole 40 mg tablet,delayed release 40 mg PO DAILY 03/19/22 [History Last Taken 08/10/22 05:00] albuterol sulfate 90 mcg/actuation aerosol inhaler 2 puff inhalation Q4H PRN shortness of breath or wheezing #1 device 05/25/22 [Rx Last Taken Unknown] cholecalciferol (vitamin D3) 125 mcg (5,000 unit) tablet (Vitamin D3) 125 mcg PO DAILY 08/04/22 [History Last Taken Unknown] aspirin 325 mg tablet 325 mg PO DAILY 20 days #20 tabs 08/10/22 [Rx Last Taken Unknown] doxycycline hyclate 100 mg capsule 100 mg PO DAILY #14 caps 08/10/22 [Rx Last Taken Unknown] tramadol 37.5 mg-acetaminophen 325 mg tablet 1 tab PO Q6H PRN pain 7 days #28 tabs 08/10/22 [Rx Last Taken Unknown] lisinopril 10 mg tablet 10 mg PO DAILY #90 tabs 10/25/22 [Rx Last Taken Unknown] Allergy/AdvReac Type Severity Reaction Status Date / Time citalopram Allergy unknown Verified 11/19/22 18:53 codeine Allergy Unknown Verified 11/19/22 18:53 lithium Allergy Unknown Verified 11/19/22 18:53 Family History Mother Diabetes Breast cancer Anemia Depression Hypertension Father Diabetes Heart disease Hypertension CVA (cerebral vascular accident) in his 40'2 from CVA Hyperlipemia Brother Asthma Hypertension CAD (coronary artery disease), Onset Age: 50 coronary stents Sister Depression Seizures Grandmother Diabetes Thyroid disorder Heart disease Grandfather Diabetes Thyroid disorder Heart disease Aunt Heart disease CAD (coronary artery disease) stents Uncle Heart disease CAD (coronary artery disease) stents Other Arthritis Surgical History (Updated 11/19/22 @ 19:32 by Jumana Wells) Bariatric surgery status H/O tooth extraction History of appendectomy History of section, classical History of eyelid surgery History of hysterectomy Hx of appendectomy Hx of colonoscopy Hx of right knee surgery Social History Smoking Status: Never smoker second hand exposure: No alcohol intake: never substance use type: does not use caffeine: Yes frequency: does not exercise ROS ROS ED ROS Narrative Constitutional: No fever, no chills. HEENT: No sore throat. No neck pain. No loss of vision. No rhinorrhea. Cardiovascular: No chest pain. No palpitations. No pedal edema. Respiratory: No cough, no shortness of breath. Abdominal: No abdominal pain. No nausea. No vomiting. Genitourinary: No dysuria. No hematuria. Musculoskeletal: No myalgias. Left fifth digit pain and swelling, pain in left forearm. Neurologic: No headaches. No dizziness. No lightheadedness. Skin: No rash. No change in color. Psychiatric: No depression. No anxiety. EXAM Physical Exam Narrative Exam Narrative: Afebrile. Vital signs noted. GCS 15. ABCs intact. HEENT: Normocephalic. Atraumatic. PERRL, EOMI. Neck soft and supple. No point tenderness or step off. Cardiovascular: Regular rate and rhythm. No murmurs, rubs, or gallops appreciated. Respiratory: No tachypnea. Lungs clear to auscultation bilaterally. Gastrointestinal: Abdomen soft, nontender, with normoactive bowel sounds. No rebound or guarding. Neurological: Awake. Alert. Nonfocal, nonlateralizing. Skin: No rash. Normal color. No pallor. Positive abrasions without active bleeding bilateral heels of hands, palmar surface. Musculoskeletal: No pedal edema. Diffuse tenderness to palpation with mild swelling and ecchymosis left fifth digit. Good capillary refill. Able to oppose thumb. Full range of motion of left wrist. Able to flex and extend at elbow along with pronation and supination. Uninjured at shoulder. Const Vital Signs: 11/19/22 18:50 11/19/22 18:53 Temperature 97.4 F L 98.2 F Temperature Source Temporal Temporal Pulse Rate 74 Respiratory Rate 15 Blood Pressure 122/97 H Blood Pressure Mean 105 Pulse Ox 98 MDM MDM MDM Narrative Medical decision making narrative: Patient was given an ice pack for comfort. Her abrasions will be cleansed. X-rays were obtained of the left hand and of the left forearm. I interpreted the x-rays. My interpretation, I see no evidence of acute fracture of her left hand, fifth finger, or forearm. She will be placed in aluminum foam splint on her left fifth digit for her finger sprain, but she was told to exercise her finger and wrist as needed. She will take [id number] analgesics and continue ice and elevation at home, follow-up with her primary care physician in approximately 1 week. I feel she can be discharged safely home with follow-up. Return instructions to the emergency department were reviewed. Disposition is discharged home in stable condition. Discharge Plan Triage Chief Complaint: Upper Extremity Injury ED Provider: Ramirez Stanley Dx/Rx/DC Orders Clinical Impression: Fall, Abrasion of hand, Sprain of finger of left hand, Contusion of finger, left, Contusion of hand Instructions: ED Hand Contusion, ED Finger Contusion, ED Finger Sprain Prescriptions: No Action rosuvastatin [Crestor] 40 mg tablet 40 mg PO DAILY Qty: 30 0RF paroxetine HCl 40 mg tablet 40 mg PO DAILY alprazolam [Xanax] 0.5 mg tablet 0.5 mg PO QHS PRN (Reason: Anxiety) allopurinol 100 mg tablet 100 mg PO DAILY pantoprazole 40 mg tablet,delayed release (DR/EC) 40 mg PO DAILY levothyroxine 175 mcg tablet 175 mcg PO DAILY Qty: 30 4RF albuterol sulfate 90 mcg/actuation HFA aerosol inhaler 2 puff inhalation Q4H PRN (Reason: shortness of breath or wheezing) Qty: 1 6RF Rx Instructions: administer with spacer hydrochlorothiazide 12.5 MG capsule 12.5 mg PO DAILY Label Comments: TAKE ONE CAPSULE BY MOUTH DAILY cholecalciferol (vitamin D3) [Vitamin D3] 125 mcg (5,000 unit) Tablet 125 mcg PO DAILY tramadol-acetaminophen 37.5-325 mg tablet 1 tab PO Q6H PRN (Reason: pain) 7 Days Qty: 28 0RF aspirin 325 mg tablet 325 mg PO DAILY 20 Days Qty: 20 0RF Rx Instructions: Take 1 tablet daily doxycycline hyclate 100 mg capsule 100 mg PO DAILY Qty: 14 0RF Rx Instructions: Take 1 tablet daily for 14 days aspirin 81 mg tablet,delayed release (DR/EC) 81 mg PO DAILY lisinopril 10 mg tablet 10 mg PO DAILY Qty: 90 3RF Primary Care Provider: Carlos Chris Chi Referrals: Carlos Chris Chi, MD [Primary Care Provider] - 1 Week if not improving Disposition Disposition: Home, Self Care
--- NOTE | 2022-11-19 19:07 | RAD_ITS ---
STUDY: X-RAY - LEFT HAND REASON FOR EXAM: Female, 47 years old. Trauma. Pain. Patient fell and was dragged by a dog leash. Scrapes on the palm and bruising of the third finger. Attention fifth finger. TECHNIQUE: 3 view(s) of the hand. COMPARISON: None. FINDINGS: Normal radiocarpal articulation. Normal distal radioulnar joint. Normal visualized carpal bones. Normal carpal articulations Normal carpometacarpal articulation of the thumb. Normal second through fifth carpometacarpal joints. Normal metacarpi. Normal metacarpophalangeal joint of the thumb. Normal interphalangeal joint of the thumb. Normal proximal and distal phalanges of the thumb. Normal metacarpophalangeal joints of the second through fifth fingers. Normal proximal and distal interphalangeal joints of the second through fifth fingers. Normal phalanges of the second through fifth fingers. The soft tissue structures are unremarkable. RAD/Hand Min 3 Views IMPRESSION: No acute fracture or dislocation. Electronically Signed: Marques Ortiz DO at 19:31 EST ,
[2022-11-19 20:06] VITALS: BP 120/78; PULSE 74; RESP 16; O2SAT 97
== END 2022-11-19 20:07 | disposition home or self-care (01) ==
PROVIDERS: Emergency Provider Emergency Medicine; PCP Family Medicine Geriatric Medicine; Visit Provider Emergency Medicine
DX: S60.512A Abrasion of left hand, initial encounter (principal); N18.30 Chronic kidney disease, stage 3 unspecified; S60.229A Contusion of unspecified hand, initial encounter; S60.00XA Contusion of unspecified finger without damage to nail, initial encounter; S59.919A Unspecified injury of unspecified forearm, initial encounter; S63.92XA Sprain of unspecified part of left wrist and hand, initial encounter; E78.5 Hyperlipidemia, unspecified; I25.10 Atherosclerotic heart disease of native coronary artery without angina pectoris; I12.9 Hypertensive chronic kidney disease with stage 1 through stage 4 chronic kidney disease, or unspecified chronic kidney disease; W01.0XXA Fall on same level from slipping, tripping and stumbling without subsequent striking against object, initial encounter; E03.9 Hypothyroidism, unspecified; J45.909 Unspecified asthma, uncomplicated
CPT/HCPCS: 73090; 73130; 99283

== ENCOUNTER → 2022-11-30 | Outpatient (CLI) | payer MEDICAID, SELFPAY ==
--- NOTE | 2022-11-30 10:24 | BI_ITS ---
MAMMOGRAPHY - BILATERAL SCREENING REASON FOR EXAM: Female, 47 years old. Routine annual screening examination. PERTINENT HISTORY: Mother with breast cancer. TECHNIQUE: Digital bilateral breast emani (3D mammographic acquisition) in the CC and MLO projections. 2-D mediolateral oblique (MLO) and craniocaudad (CC) views of both breasts were obtained. CAD: Full Field Digital Mammography with Computer Added Detection was performed. COMPARISON: Comparison is made with prior study of 12/21/2018. FINDINGS: Breast Composition: There are scattered areas of fibroglandular density. There are no dominant masses or suspicious calcifications. No other significant abnormalities are identified. There has been no significant change since the prior study. BI/SCRN MAMM (CAD)W/EMANI BILAT IMPRESSION: Stable bilateral screening mammogram. Yearly follow-up mammogram recommended. (A) ASSESSMENT CATEGORY: BIRADS Category 1: Negative. A letter regarding these results will be sent to the patient by the facility within 30 days. Approximately 10% of breast cancers are not detected by mammography. A normal mammogram should not delay biopsy of a clinically suspicious abnormality. [id number] Electronically Signed: Carlos Agarwal MD at 12:37 EST ,
== END | disposition home or self-care (01) ==
LOC: OPBI 10:22
PROVIDERS: PCP Family Medicine Geriatric Medicine; Visit Provider Family Medicine Geriatric Medicine
DX: Z12.31 Encounter for screening mammogram for malignant neoplasm of breast (principal)
CPT/HCPCS: 77063; 77067

== ENCOUNTER → 2022-12-30 | Outpatient (CLI) | payer MEDICAID, SELFPAY ==
[2022-12-30 12:38] LABS: Absolute Lymphocyte Count 3.01 X10^3/uL (0.83-4.51); Absolute Neutrophil Count 4.5 X10^3/uL (2.0-7.7); Basophil# 0.06 X10^3/uL; Basophil% 0.7 % (0-1); Eosinophil# 0.18 X10^3/uL; Eosinophils% 2.1 % (0-5); Hematocrit 40.8 % (37-47); Hemoglobin 13.1 g/dL (12.0-15.0); Lymphocyte # 3.01 X10^3/ul (0.83-4.51); Lymphocyte % 35.7 % (19-41); Mean Corp Hgb Conc 32.1 g/dL (32-36); Mean Corpuscular Hgb 30.5 pg (27.0-32.0); Mean Corpuscular Volume 95.1 fL (81-99); Mean Platelet Vol. 12.2 fl (6.2-12.0); Monocyte# 0.61 X10^3/uL; Monocyte% 7.2 % (0-10); NRBC Flagged by Analyzer 0 % (0-5); Neutrophil # 4.54 X10^3/uL (2.7-7.7); Neutrophil % 54.1 % (47-70); Platelet Count 247 K/mm3 (150-450); RBC Distribution Width SD 49.3 fl (35.1-43.9); Red Blood Count 4.29 M/mm3 (4.2-5.4); White Blood Count 8.4 K/mm3 (4.4-11.0)
[2022-12-30 13:06] LABS: Vitamin B12 547 pg/mL (211-911); Vitamin D,25 Hydroxy 48.2 ng/mL
[2022-12-30 13:51] LABS: AST(SGOT) 36 U/L (15-37); Alanine Aminotransfer ALT/SGPT 35 U/L (13-56); Albumin, Serum 3.8 g/dL (3.2-5.0); Alkaline Phosphatase 68 U/L (45-117); Anion Gap 7 (5-15); BUN 12 mg/dL (7-18); BUN/Creat Ratio 13.2 RATIO (10-20); Calcium,Total 8.9 mg/dL (8.5-10.1); Chloride 105 mmol/L (98-107); Creatinine, Serum 0.91 mg/dL (0.55-1.02); EST Glomerular Filtration Rate 71 mL/min (>60); Est Glom Filt Rate - Afr Amer 86 mL/min (>60); Ferritin 169 ng/mL (8-252); Globulin 3.7 g/dL (2.2-4.2); Glucose 90 mg/dL (74-106); Potassium 2.9 mmol/L (3.5-5.1); Protein, Total 7.5 g/dL (6.4-8.2); Sodium Level 140 mmol/L (136-145); T3 Uptake 35 % (30-39); T4 Free Direct 1.33 ng/dL (0.76-1.46); T4 Total, Thyroxin 10.5 ug/dL (4.8-13.9); T7 / Free Thyroxin Index 3.7 (1.4-4.5)
[2022-12-31 11:45] LABS: Iron 64 ug/dL (50-170); Iron Binding Capacity,Total 224 ug/dL (250-450)
[2023-01-02 14:07] LABS: Vitamin B1, Thiamine 135.8 nmol/L (66.5-200.0)
[2023-01-03 10:28] LABS: Copper, Serum or Plasma 110 ug/dL (80-158); Zinc, Plasma or Serum 72 ug/dL (44-115)
== END | disposition home or self-care (01) ==
PROVIDERS: PCP Family Medicine Geriatric Medicine
DX: E55.9 Vitamin D deficiency, unspecified (principal); D64.9 Anemia, unspecified; E53.8 Deficiency of other specified B group vitamins; K90.9 Intestinal malabsorption, unspecified; Z98.84 Bariatric surgery status
CPT/HCPCS: 36415; 80053; 82306; 82525; 82607; 82728; 82746; 83540; 83550; 83970; 84425; 84436; 84439; 84443; 84479; 84630; 85025

== ENCOUNTER 2022-12-31 21:44 | Emergency (ER) | payer MEDICAID, SELFPAY ==
[2022-12-31 21:45] VITALS: BP 136/90; PULSE 76; RESP 16; TEMP 35.8; O2SAT 100; BMI 30.8
--- NOTE | 2022-12-31 22:06 | ED.VIS.GI ---
HPI HPI - GI History of Present Illness Chief Complaint: Abd Pain Informant: patient Abdominal Pain/Flank Pain Onset: Today and Hours (4) Context: Gradual Onset Timing: Continuous Quality: Cramping Location: Epigastric Worsened by: Food Nausea/Vomiting/Emesis GI Symptom: Negative for Nausea or Vomiting Diarrhea/Melena/Hematochezia GI Symptom: Negative for Diarrhea, Melena or Hematochezia Associated Symptoms Associated Symptoms: Negative for Dysuria, Frequency or Hematuria LMP: Hysterectomy Narrative Narrative: Patient presents with abdominal pain that began approximately 4 hours prior to arrival. Patient states it came on gradually. Patient states the pain is over the epigastric area and mid abdomen. Patient describes it as cramping. Patient states it came on approximately 10 minutes after eating. Patient states nothing seems to make it better. Patient denies any nausea or vomiting. Patient denies any diarrhea, melena, or hematochezia. Patient denies any dysuria or hematuria. Patient has had a hysterectomy and denies any abnormal vaginal bleeding or discharge. 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 Asthma Cardiology follow-up encounter Clostridium difficile infection Coronary artery calcification CPAP (continuous positive airway pressure) dependence DDD (degenerative disc disease), thoracic Depression Essential (primary) hypertension Fatty liver Gastric reflux History of echocardiogram History of renal disease History of stress test Hyperlipidemia Hypertension Hypothyroidism Knee pain Non-smoker Obesity Osteoarthritis Pain aggravated by walking Paresthesia Postablative hypothyroidism Right foot pain Right knee pain Segmental and somatic dysfunction of thoracic region Shortness of breath on exertion Stage 3 chronic kidney disease Vitamin D deficiency Wears dentures Wears glasses Home Medications hydrochlorothiazide 12.5 mg capsule 12.5 mg PO DAILY blood pressure 01/17/17 [History Last Taken 01/21/19] rosuvastatin 40 mg tablet (Crestor) 40 mg PO DAILY #30 tabs 08/07/20 [Rx Last Taken Unknown] paroxetine HCl 40 mg tablet 40 mg PO DAILY 10/28/20 [History Last Taken Unknown] alprazolam 0.5 mg tablet (Xanax) 0.5 mg PO QHS PRN Anxiety 04/06/21 [History Last Taken Unknown] levothyroxine 175 mcg tablet 175 mcg PO DAILY #30 tabs 12/30/21 [Rx Last Taken 08/10/22 05:00] allopurinol 100 mg tablet 100 mg PO DAILY 03/19/22 [History Last Taken Unknown] pantoprazole 40 mg tablet,delayed release 40 mg PO DAILY 03/19/22 [History Last Taken 08/10/22 05:00] albuterol sulfate 90 mcg/actuation aerosol inhaler 2 puff inhalation Q4H PRN shortness of breath or wheezing #1 device 05/25/22 [Rx Last Taken Unknown] tramadol 37.5 mg-acetaminophen 325 mg tablet 1 tab PO Q6H PRN pain 7 days #28 tabs 08/10/22 [Rx Last Taken Unknown] lisinopril 10 mg tablet 10 mg PO DAILY #90 tabs 10/25/22 [Rx Last Taken Unknown] ciprofloxacin HCl 500 mg tablet 500 mg PO BID #6 TABLETS 01/01/23 [Rx Last Taken Unknown] Allergy/AdvReac Type Severity Reaction Status Date / Time citalopram Allergy unknown Verified 12/31/22 21:44 codeine Allergy Unknown Verified 12/31/22 21:44 lithium Allergy Unknown Verified 12/31/22 21:44 Family History Mother Diabetes Breast cancer Anemia Depression Hypertension Father Diabetes Heart disease Hypertension CVA (cerebral vascular accident) in his 40'2 from CVA Hyperlipemia Brother Asthma Hypertension CAD (coronary artery disease), Onset Age: 50 coronary stents Sister Depression Seizures Grandmother Diabetes Thyroid disorder Heart disease Grandfather Diabetes Thyroid disorder Heart disease Aunt Heart disease CAD (coronary artery disease) stents Uncle Heart disease CAD (coronary artery disease) stents Other Arthritis Surgical History Bariatric surgery status Bariatric surgery status H/O tooth extraction History of appendectomy History of section, classical History of eyelid surgery History of hysterectomy Hx of appendectomy Hx of colonoscopy Hx of right knee surgery Social History Smoking Status: Never smoker second hand exposure: No alcohol intake: never substance use type: does not use caffeine: Yes frequency: does not exercise ROS ROS ED Constitutional Constitutional ED: Denies chills or fever(s) Eyes Eyes: Denies blurry vision or change in vision ENT ENT ED: Denies rhinorrhea or sore throat Cardiovascular Cardiovascular: Denies chest pain or palpitations Respiratory/Chest Respiratory/Chest: Denies cough or dyspnea Gastrointestinal Gastrointestinal: Reports abdominal pain; Denies nausea or vomiting Genitourinary Genitourinary ED: Denies dysuria or hematuria Musculoskeletal Musculoskeletal: Denies back pain or neck pain Integumentary Denies abscess or rash Neurologic Neurologic: Denies headache(s) or weakness Allergic/Immunologic Allergic/Immunologic ED: Denies mouth swelling or urticaria EXAM Physical Exam Const Vital Signs: 12/31/22 21:45 12/31/22 23:47 Temperature 96.5 F L Temperature Source Temporal Pulse Rate 76 Respiratory Rate 16 Blood Pressure 136/90 H Blood Pressure Mean 105 Pulse Ox 100 99 Oxygen Delivery Method Room Air Room Air Positive well nourished and well developed General Appearance ED: well developed HEENT Reports moist mucous membranes Neck supple and no JVD Resp normal respiratory effort and clear to auscultation bilaterally Cardio regular rate and regular rhythm GI normal to inspection, nondistended, normoactive bowel sounds Palpation: soft and tender epigastric and periumbilical; Negative for guarding or rebound tenderness present Extremity normal to inspection General Extremety ED: Negative for edema or tenderness General Extremity: Negative for edema Neuro oriented x3, CN's II-XII intact bilaterally and no sensory deficits noted Sensorium / Orientation: alert Motor Exam: strength 5/5 throughout Psych mental status grossly normal Skin no rashes or lesions noted MDM MDM MDM Narrative Medical decision making narrative: Differential diagnosis includes bowel obstruction, cholecystitis, cholelithiasis, gastritis, gastric ulcer, duodenal ulcer, bowel perforation, pyelonephritis, pancreatitis, and urinary tract infection. CBC will be obtained to assess for leukocytosis and anemia. Comprehensive metabolic profile will be obtained to assess for renal function, hepatic function, and electrolyte abnormality. Urinalysis will be obtained to assess for urinary tract infection and hematuria. Lipase will be obtained to assess for pancreatitis. CT scan of the abdomen pelvis will be obtained to assess for bowel obstruction and perforation. Lab Data Attestation: I reviewed the patient's lab results. Lab results narrative: CBC was reviewed and was within normal limits. Comprehensive metabolic profile was reviewed. There is mild hypokalemia of 3.3. Lipase was reviewed and was normal. Urinalysis was reviewed. There is a leukocyte Estrace of 100. There are 10-25 white blood cells and 5-10 epithelial cells. There is 1+ bacteria. Labs: Laboratory Results - last 24 hr 12/31/22 12/31/22 12/31/22 22:25 22:25 23:06 WBC 8.8 RBC 4.42 Hgb 13.3 Hct 41.5 MCV 93.9 MCH 30.1 MCHC 32.0 RDW Std Deviation 47.8 H RDW Coeff of Dianna 13.8 Plt Count 258 MPV 11.5 Immature Gran % (Auto) 0.200 Neut % (Auto) 50.2 Lymph % (Auto) 39.5 Titus % (Auto) 6.8 Eos % (Auto) 2.3 Baso % (Auto) 1.0 Absolute Neuts (auto) 4.4 Absolute Lymphs (auto) 3.47 Nucleated RBC % 0 Sodium 140 Potassium 3.3 L Chloride 106 Carbon Dioxide 29.0 Anion Gap 5 BUN 14 Creatinine 0.94 Estim Creat Clear Calc 54.29 Est GFR (MDRD) Af Amer 83 Est GFR (MDRD) Non-Af 69 BUN/Creatinine Ratio 15.0 Glucose 88 Calcium 8.8 Total Bilirubin 1.00 AST 32 ALT 35 Alkaline Phosphatase 69 Total Protein 7.5 Albumin 3.6 Globulin 3.9 Albumin/Globulin Ratio 0.9 Lipase 178 Urine Color Yellow Urine Clarity Sl. Cloudy Urine pH 6.0 Ur Specific [place] 1.020 Urine Protein 30 H Urine Glucose (UA) Normal Urine Ketones 50 H Urine Occult Blood Negative Urine Nitrite Negative Urine Bilirubin 1 H Urine Urobilinogen 4 H Ur Leukocyte Esterase 100 H Urine RBC 0 SEEN Urine WBC 10-25 SEEN Ur Squamous Epith Cells 5-10 SEEN Urine Bacteria 1+ Urine Mucus 0 SEEN Radiography Diagnostic Testing: Clinical Impression(s) from Imaging Studies Abdomen/Pelvis CT 01/01/23 00:00 IMPRESSION: 1. Gastric bypass. No evidence of a significant degree small bowel obstruction. Mildly prominent small bowel diffusely but no decompressed distal small bowel loops, oral contrast reached the mid small bowel. Moderate stool in much of the colon. 2. Complex left ovarian multi-septated cystic mass with some peripheral nodularity. Minimally changed in size from 2000 but significantly larger than in 2019. Due to the complex appearance and the documented slow interval growth and risk of neoplasm consideration for resection is recommended. Pelvic ultrasound is also suggested if not previously performed, ultrasound was not provided. Electronically Signed: Pati Overton MD at 1:18 EDT , ADDENDUM: 01/01/23 0144 IMPRESSION: 1. Gastric bypass. No evidence of a significant degree small bowel obstruction. Mildly prominent small bowel diffusely but no decompressed distal small bowel loops, oral contrast reached the mid small bowel. Moderate stool in much of the colon. 2. Complex left ovarian multi-septated cystic mass with some peripheral nodularity. Minimally changed in size from 2001 but significantly larger than in 2019. Due to the complex appearance and the documented slow interval growth and risk of neoplasm consideration for resection is recommended. Pelvic ultrasound is also suggested if not previously performed, ultrasound was not provided. N.B. : The above Results were Read Back by Pati Overton MD to Josue Nolasco DO, and understanding confirmed on 01/01/2023 01:37:31 (ET). Electronically Signed: Pati Overton MD at 1:18 EDT , CT scan of the abdomen pelvis was obtained. There is no evidence of bowel obstruction or perforation. There is no free air or free fluid. There is a complex left ovarian septated cystic mass with some peripheral nodularity. This is larger compared to CT scan in 2019 but essentially unchanged from CT scan from 2000. There is questionable neoplastic process. This was interpreted by the radiologist and was also independently reviewed by myself. Treatment and Re-Evaluation :: Patient was given IV fluids, morphine, and Zofran. Patient was advised of her findings. There is no ultrasound capabilities at this time. Since patient has had this mass since 2000, I do not feel emergent ultrasound is necessary at this time. Patient is feeling better on reevaluation. Urine culture was ordered. Patient was given a dose of Cipro here. Patient was given a prescription for Cipro. Patient was instructed to follow-up with her primary care physician in 5 to 7 days. Patient was given a prescription for omeprazole. Patient was advised of the need for further evaluation of her left adnexal cystic mass. Patient understands and is agreeable with the plan. All questions were answered. Discharge Plan Triage Chief Complaint: Abd Pain ED Provider: Josue Nolasco Dx/Rx/DC Orders Clinical Impression: Abdominal pain, Adnexal mass, Urinary tract infection Instructions: ED Abdominal Pain Unkn Cause Fem, ED Cystitis Female Adult Prescriptions: New ciprofloxacin HCl [ciprofloxacin HCl] 500 mg tablet 500 mg PO BID Qty: 6 0RF No Action rosuvastatin [Crestor] 40 mg tablet 40 mg PO DAILY Qty: 30 0RF paroxetine HCl 40 mg tablet 40 mg PO DAILY alprazolam [Xanax] 0.5 mg tablet 0.5 mg PO QHS PRN (Reason: Anxiety) allopurinol 100 mg tablet 100 mg PO DAILY pantoprazole 40 mg tablet,delayed release (DR/EC) 40 mg PO DAILY levothyroxine 175 mcg tablet 175 mcg PO DAILY Qty: 30 4RF albuterol sulfate 90 mcg/actuation HFA aerosol inhaler 2 puff inhalation Q4H PRN (Reason: shortness of breath or wheezing) Qty: 1 6RF Rx Instructions: administer with spacer hydrochlorothiazide 12.5 MG capsule 12.5 mg PO DAILY Label Comments: TAKE ONE CAPSULE BY MOUTH DAILY tramadol-acetaminophen 37.5-325 mg tablet 1 tab PO Q6H PRN (Reason: pain) 7 Days Qty: 28 0RF lisinopril 10 mg tablet 10 mg PO DAILY Qty: 90 3RF Primary Care Provider: Carlos Chris Chi Referrals: Carlos Chris Chi, MD [Primary Care Provider] - 3-5 Days Disposition Disposition: Home, Self Care
[2022-12-31] MEDS: Ondansetron 4 MG/2 ML Vial IV (22:28)
[2022-12-31] MEDS: 0.9% Normal Saline 1,000 ML 1000 ML IV (22:28)
[2022-12-31] MEDS: Morphine 4 MG/ML Syringe IV (22:28)
[2022-12-31 22:32] LABS: Absolute Lymphocyte Count 3.47 X10^3/uL (0.83-4.51); Absolute Neutrophil Count 4.4 X10^3/uL (2.0-7.7); Basophil# 0.09 X10^3/uL; Eosinophils% 2.3 % (0-5); Hematocrit 41.5 % (37-47); Hemoglobin 13.3 g/dL (12.0-15.0); Lymphocyte # 3.47 X10^3/ul (0.83-4.51); Lymphocyte % 39.5 % (19-41); Mean Corpuscular Hgb 30.1 pg (27.0-32.0); Mean Corpuscular Volume 93.9 fL (81-99); Mean Platelet Vol. 11.5 fl (6.2-12.0); Monocyte% 6.8 % (0-10); NRBC Flagged by Analyzer 0 % (0-5); Neutrophil % 50.2 % (47-70); Platelet Count 258 K/mm3 (150-450); RBC Distribution Width CV 13.8 % (11.6-14.6); RBC Distribution Width SD 47.8 fl (35.1-43.9); Red Blood Count 4.42 M/mm3 (4.2-5.4); White Blood Count 8.8 K/mm3 (4.4-11.0)
[2022-12-31 22:49] LABS: ALB/GLOB Ratio 0.9 RATIO (0.9-2.4); AST(SGOT) 32 U/L (15-37); Alanine Aminotransfer ALT/SGPT 35 U/L (13-56); Albumin, Serum 3.6 g/dL (3.2-5.0); Alkaline Phosphatase 69 U/L (45-117); Anion Gap 5 (5-15); BUN 14 mg/dL (7-18); Calcium,Total 8.8 mg/dL (8.5-10.1); Chloride 106 mmol/L (98-107); Creatinine, Serum 0.94 mg/dL (0.55-1.02); EST Glomerular Filtration Rate 69 mL/min (>60); Est Glom Filt Rate - Afr Amer 83 mL/min (>60); Estimated Creatinine Clearance 54.29 ml/min; Globulin 3.9 g/dL (2.2-4.2); Glucose 88 mg/dL (74-106); Lipase 178 U/L (73-393); Potassium 3.3 mmol/L (3.5-5.1); Protein, Total 7.5 g/dL (6.4-8.2); Sodium Level 140 mmol/L (136-145)
[2022-12-31 23:08] LABS: Mucous, Urine 0 SEEN /hpf (<or=2+); Red Blood Cells-Urine 0 SEEN /hpf (0-5)
[2022-12-31 23:13] LABS: Color, Urine Yellow (Yellow); Glucose, Dipstick Normal (Normal); Ketone-Dipstick 50 mg/dl (Negative); Leukocyte Esterase-Dipstick 100 /ul (Negative); Nitrite-Dipstick Negative (Negative); Occult Blood-Urine Negative /ul (Negative); Protein-Dipstick 30 mg/dl (Negative); Urine Clarity Sl. Cloudy (Clear); Urine Urobilinogen 4 mg/dl (Normal)
[2022-12-31 23:17] LABS: Urine Bilirubin Dipstick 1 mg/dL (Negative)
[2022-12-31 23:26] LABS: Squamous Epithelial Cells - UA 5-10 SEEN /hpf (5-10); White Blood Cells 10-25 SEEN /hpf (0-5)
[2022-12-31 23:27] LABS: Bacteria 1+ /hpf (None Seen)
[2022-12-31 23:47] VITALS: O2SAT 99
--- NOTE | 2023-01-01 | CT_ITS ---
We are attempting to reach an attending provider to discuss findings. An addendum with communication details will be sent when the communication is complete. EXAM: CT ABDOMEN AND PELVIS WITH INTRAVENOUS CONTRAST CLINICAL INDICATION: Abdominal pain TECHNIQUE: Helically acquired images were obtained of the abdomen and pelvis with intravenous contrast. This CT exam was performed using one or more of the following dose reduction techniques: automated exposure control, adjustment of the mA and/or kV according to patient size, and/or use of iterative reconstruction technique. This report was created using [employer] report [employer] technology. CONTRAST: Oral and amp; IV Gastrografin and amp; 100mL Isovue-370 RADIATION DOSE: CTDIvol = 14.61 mGy, DLP = 648.74 mGy-cm COMPARISON: July 20, 2021, January 30, 2019 FINDINGS: LOWER THORAX: Similar appearance of right basilar nodule with coarse punctate central calcification, this measures 1.2 cm x 1.2 cm x 9 mm, stable from 2020. Consistent with benign etiology. No cardiomegaly. No significant pericardial effusion. ABDOMEN: LIVER: Unremarkable. Homogeneous. No focal mass. GALLBLADDER AND BILE DUCTS: Unremarkable. No calcified gallstones. No gallbladder distention or wall edema. No intra- or extrahepatic biliary ductal dilation. PANCREAS: Unremarkable. No focal cystic or solid mass. SPLEEN: Splenic granulomas, normal spleen size. ADRENALS: Unremarkable. No nodules. KIDNEYS AND URETERS: Unremarkable. Normal renal size and position. No hydronephrosis. STOMACH AND BOWEL: Postoperative changes of the stomach and small bowel consistent with gastric bypass are new since 2020. Oral contrast reached mid small bowel loops. There is mild prominent fluid and gas in distal small bowel loops, no evidence of high-grade mechanical obstruction. There is moderate stool and gas in most of the colon including sigmoid, moderate gas in the rectum. No focal inflammatory change. PELVIS: APPENDIX: Postoperative changes of the tip of the cecum consistent with appendectomy. BLADDER: Unremarkable. REPRODUCTIVE: There is a complex at least septated cystic mass left adnexa, 6.0 cm x 3.5 cm x 4.7 cm, previously 5.9 cm x 4.6 cm x 4.4 cm in July 30, 2021, larger compared to 2019. It was 4.7 cm x 3.1 cm x 3.4 cm in 2019. With at least one mildly thick internal septation and some peripheral nodularity nodularity along its anterior-medial margin which is mildly more apparent the current exam. Similar nodularity was present in 2019. Pelvic ultrasound is recommended with consideration for resection due to the complex appearance and interval enlargement since 2019. Hysterectomy. Right ovary appears to remain with mildly thick-walled but smooth 1.8 cm x 1.4 cm x 1.4 cm apparent dominant follicle adjacent to a similar smaller 1.4 cm x 0.8 cm presumed follicle. ABDOMEN and PELVIS: INTRAPERITONEAL SPACE: Unremarkable. No ascites or other fluid collection. No free air. BONES/JOINTS: Unremarkable. No suspicious lytic or blastic abnormality. SOFT TISSUES: Unremarkable. No discrete abdominal or pelvic wall hernia. VASCULATURE: Unremarkable. Abdominal aorta is non-dilated. LYMPH NODES: Unremarkable. No enlarged lymph nodes. CT/Abdomen/Pelvis WITH Contrast IMPRESSION: 1. Gastric bypass. No evidence of a significant degree small bowel obstruction. Mildly prominent small bowel diffusely but no decompressed distal small bowel loops, oral contrast reached the mid small bowel. Moderate stool in much of the colon. 2. Complex left ovarian multi-septated cystic mass with some peripheral nodularity. Minimally changed in size from 2001 but significantly larger than in 2019. Due to the complex appearance and the documented slow interval growth and risk of neoplasm consideration for resection is recommended. Pelvic ultrasound is also suggested if not previously performed, ultrasound was not provided. Electronically Signed: Pati Overton MD at 1:18 EDT ,
[2023-01-01] MEDS: Ciprofloxacin 500 MG Tablet PO (02:11)
== END 2023-01-01 02:15 | disposition home or self-care (01) ==
PROVIDERS: Emergency Provider Emergency Medicine; PCP Family Medicine Geriatric Medicine; Visit Provider Emergency Medicine
DX: N39.0 Urinary tract infection, site not specified (principal); N18.30 Chronic kidney disease, stage 3 unspecified; I25.10 Atherosclerotic heart disease of native coronary artery without angina pectoris; I12.9 Hypertensive chronic kidney disease with stage 1 through stage 4 chronic kidney disease, or unspecified chronic kidney disease; E78.5 Hyperlipidemia, unspecified
CPT/HCPCS: 74177; 80053; 81001; 83690; 85025; 87077; 87086; 87088; 87186; 96361; 96374; 96375; 99284; J7030; Q9967; A4216; J2405

== ENCOUNTER → 2023-01-04 | Outpatient (CLI) | payer MEDICAID, SELFPAY ==
[2023-01-04 13:20] LABS: Anion Gap 7 (5-15); BUN 10 mg/dL (7-18); BUN/Creat Ratio 12.3 RATIO (10-20); Calcium,Total 8.8 mg/dL (8.5-10.1); Chloride 109 mmol/L (98-107); Creatinine, Serum 0.81 mg/dL (0.55-1.02); EST Glomerular Filtration Rate 81 mL/min (>60); Est Glom Filt Rate - Afr Amer 98 mL/min (>60); Glucose 84 mg/dL (74-106); Potassium 3.4 mmol/L (3.5-5.1); Sodium Level 140 mmol/L (136-145)
[2023-01-05 10:02] LABS: Cancer Antigen 125 18.9 U/mL (0.0-38.1)
== END | disposition home or self-care (01) ==
LOC: LAB 11:21
PROVIDERS: PCP Family Medicine Geriatric Medicine; Referring Provider Family Medicine Geriatric Medicine; Visit Provider Family Medicine Geriatric Medicine
DX: E87.6 Hypokalemia (principal); N83.8 Other noninflammatory disorders of ovary, fallopian tube and broad ligament
CPT/HCPCS: 36415; 80048; 86304

== ENCOUNTER → 2023-01-07 | Outpatient (CLI) | payer MEDICAID, SELFPAY ==
--- NOTE | 2023-01-07 15:32 | US_ITS ---
EXAM: US PELVIS TRANSABDOMINAL, COMPLETE CLINICAL INDICATION: LEFT TUBO-OVARIAN MASS TECHNIQUE: Transabdominal pelvic ultrasound was performed with grayscale and color Doppler imaging. This report was created using [employer] report [employer] technology. COMPARISON: None. FINDINGS: UTERUS/CERVIX: The uterus is surgically absent. Anteverted. There is no uterine mass. Normal endometrial stripe thickness. RIGHT OVARY: The right ovary measures 3.3 x 2.0 x 3.1 cm. There is an anechoic structure in the right ovary measures 2.1 x 2.1 x 1.7 cm compatible with a cyst. Blood flow is present in the right ovary. LEFT OVARY: Left ovary measures 7.0 x 4.6 x 3.2 cm. Blood flow is present in the left ovary. FREE FLUID: None. BLADDER: The bladder measures 4.3 x 6.7 x 7.9 cm for volume of 118 mL. OTHER FINDINGS: There are 2 discrete anechoic structures compatible with cysts the first measuring 3.4 x 2.7 x 3.3 cm and the second measuring 2.4 x 2.9 x 2.3 cm. US/Pelvic (Non ) IMPRESSION: 2 discrete anechoic structures in the left ovary compatible with ovarian cysts. There is also a small right ovarian cyst present. The patient is status post hysterectomy. Electronically Signed: Schuyler López MD at 16:14 EDT ,
== END | disposition home or self-care (01) ==
LOC: US 15:31
PROVIDERS: PCP Family Medicine Geriatric Medicine; Referring Provider Family Medicine Geriatric Medicine; Visit Provider Family Medicine Geriatric Medicine
DX: N83.8 Other noninflammatory disorders of ovary, fallopian tube and broad ligament (principal)
CPT/HCPCS: 76856

== ENCOUNTER → 2023-01-10 | Outpatient (CLI) | payer MEDICAID, SELFPAY | END | disposition home or self-care (01) | PROVIDERS: PCP Family Medicine Geriatric Medicine; Referring Provider Family Medicine Geriatric Medicine; Visit Provider Family Medicine Geriatric Medicine | DX: R68.83 Chills (without fever) (principal) | CPT/HCPCS: 87635; 87804; 87807; C9803; U0003; U0005 ==

== ENCOUNTER → 2023-02-02 | Outpatient (CLI) | payer MEDICAID, SELFPAY ==
[2023-02-02 13:10] LABS: Absolute Lymphocyte Count 2.56 X10^3/uL (0.83-4.51); Absolute Neutrophil Count 3.2 X10^3/uL (2.0-7.7); Basophil# 0.05 X10^3/uL; Basophil% 0.8 % (0-1); Eosinophil# 0.05 X10^3/uL; Eosinophils% 0.8 % (0-5); Hematocrit 38.2 % (37-47); Hemoglobin 12.3 g/dL (12.0-15.0); Lymphocyte # 2.56 X10^3/ul (0.83-4.51); Lymphocyte % 40.4 % (19-41); Mean Corp Hgb Conc 32.2 g/dL (32-36); Mean Corpuscular Hgb 30.8 pg (27.0-32.0); Mean Corpuscular Volume 95.5 fL (81-99); Mean Platelet Vol. 12.2 fl (6.2-12.0); Monocyte# 0.45 X10^3/uL; Monocyte% 7.1 % (0-10); NRBC Flagged by Analyzer 0 % (0-5); Neutrophil # 3.22 X10^3/uL (2.7-7.7); Neutrophil % 50.7 % (47-70); Platelet Count 220 K/mm3 (150-450); White Blood Count 6.3 K/mm3 (4.4-11.0)
[2023-02-02 13:25] LABS: Internal QC Validated? YES +Cl - CLEAR BKGD; Pregnancy, Serum, hCG Quali. NEGATIVE Negative
[2023-02-02 13:43] LABS: ALB/GLOB Ratio 0.9 RATIO (0.9-2.4); AST(SGOT) 37 U/L (15-37); Alanine Aminotransfer ALT/SGPT 34 U/L (13-56); Albumin, Serum 3.3 g/dL (3.2-5.0); Alkaline Phosphatase 84 U/L (45-117); Anion Gap 3 (5-15); BUN 9 mg/dL (7-18); BUN/Creat Ratio 11.7 RATIO (10-20); Calcium,Total 9.1 mg/dL (8.5-10.1); Chloride 108 mmol/L (98-107); Creatinine, Serum 0.77 mg/dL (0.55-1.02); EST Glomerular Filtration Rate 86 mL/min (>60); Est Glom Filt Rate - Afr Amer 104 mL/min (>60); Globulin 3.7 g/dL (2.2-4.2); Glucose 86 mg/dL (74-106); Sodium Level 137 mmol/L (136-145)
[2023-02-02 16:30] LABS: T4 Free Direct 1.95 ng/dL (0.76-1.46); Thyroid Stim Hormone (TSH) 0.83 uIU/mL (0.358-3.74)
== END | disposition home or self-care (01) ==
LOC: POLAB3 10:28
PROVIDERS: Nurse Practitioner Family; PCP Family Medicine Geriatric Medicine; Visit Provider Family Medicine Geriatric Medicine
DX: Z00.00 Encounter for general adult medical examination without abnormal findings (principal); E87.6 Hypokalemia; E89.0 Postprocedural hypothyroidism
CPT/HCPCS: 36415; 80053; 84439; 84443; 84703; 85025

== ENCOUNTER → 2023-02-25 | Outpatient (CLI) | payer MEDICAID, SELFPAY ==
[2023-02-25 16:46] LABS: T4 Free Direct 1.32 ng/dL (0.76-1.46)
== END | disposition home or self-care (01) ==
LOC: LAB 15:46
PROVIDERS: PCP Family Medicine Geriatric Medicine; Referring Provider Nurse Practitioner Family; Visit Provider Nurse Practitioner Family
DX: E89.0 Postprocedural hypothyroidism (principal)
CPT/HCPCS: 36415; 84439; 84443

== ENCOUNTER → 2023-03-08 | Outpatient (CLI) | payer MEDICAID, SELFPAY ==
--- NOTE | 2023-03-08 08:15 | MRI_ITS ---
STUDY: MR PELVIS WITH T WITHOUT CONTRAST REASON FOR EXAM: Female, 47 years old. Pelvic pain. Pelvic mass. History of gastric bypass surgery and hysterectomy. TECHNIQUE: Standardized fat and water weighted pulse sequences were obtained in all 3 orthogonal planes, pre-and post contrast administration. 14ml Clariscan via IV was administered for the contrast portion of the examination. COMPARISON: CT of the abdomen and pelvis, December 31, 2022. Pelvic ultrasound, January 07, 2023. FINDINGS: Urinary bladder is partially collapsed but appears grossly normal. Normal visualized small intestine. Normal visualized colon. Status post hysterectomy. The vaginal cuff appears grossly normal. In the right pelvis is the right ovary, measuring 3.2 x 2.1 x 2.6 cm. This contains several follicles. The largest measures 2 x 1.8 x 1.5 cm. The left adnexa is seen in the left pelvis, and measures 5.4 x 3.1 x 5.9 cm. This contains several large cysts. The largest measuring 3.7 x 2.8 x 4.2 cm. The second largest measures 3.5 x 2.4 x 4.2 cm in size. There is also a 1.4 x 1.1 x 0.9 cm hemorrhagic cyst. There is normal enhancement of the ovarian tissue. There is no pelvic fluid. There is no pelvic mass lesion or lymphadenopathy. Normal visualized pelvic arteries. Normal osseous structures. Normal abdominal wall. MRI/Pelvis W/WO Contrast IMPRESSION: 1. Retained ovaries. Both contain large cysts, left greater than right. The left ovary appears roughly stable when compared to the prior CT. Recommend follow-up pelvic ultrasound in 1 year or at 2 years from initial study (whichever is later).Right ovary contains a larger follicle than noted on the prior CT. 2. Unremarkable vaginal cuff. 3. No other evidence of pelvic abnormality. Electronically Signed: Marques Ortiz DO at 19:00 EDT Reading Location ID and State: [address] [place] [address] Tel [phone], Service support ,
== END | disposition home or self-care (01) ==
LOC: MRI 08:11
PROVIDERS: PCP Family Medicine Geriatric Medicine; Referring Provider Obstetrics & Gynecology; Visit Provider Obstetrics & Gynecology
DX: R10.2 Pelvic and perineal pain (principal)
CPT/HCPCS: 72197; A9575

== ENCOUNTER → 2023-03-09 | Outpatient (CLI) | payer MEDICAID, SELFPAY ==
[2023-03-09 13:38] LABS: Albumin, Serum 3.6 g/dL (3.2-5.0); BUN 10 mg/dL (7-18); BUN/Creat Ratio 12.8 RATIO (10-20); Calcium,Total 8.5 mg/dL (8.5-10.1); Chloride 107 mmol/L (98-107); Creatinine, Serum 0.78 mg/dL (0.55-1.02); EST Glomerular Filtration Rate 85 mL/min (>60); Est Glom Filt Rate - Afr Amer 103 mL/min (>60); Glucose 70 mg/dL (74-106); Phosphorus 3.4 mg/dL (2.5-4.9); Potassium 3.4 mmol/L (3.5-5.1); Sodium Level 139 mmol/L (136-145); Uric Acid 6.5 mg/dL (2.6-6.0)
[2023-03-09 14:36] LABS: Internal QC Validated? YES +Cl - CLEAR BKGD; Pregnancy, Serum, hCG Quali. NEGATIVE Negative
== END | disposition home or self-care (01) ==
LOC: POLAB3 11:19
PROVIDERS: PCP Family Medicine Geriatric Medicine; Visit Provider Internal Medicine Nephrology
DX: N18.31 Chronic kidney disease, stage 3a (principal); E79.0 Hyperuricemia without signs of inflammatory arthritis and tophaceous disease
CPT/HCPCS: 36415; 80069; 84550; 84703

== ENCOUNTER 2023-03-17 09:50 | Day surgery (SDC) | payer MEDICAID, SELFPAY ==
--- NOTE | 2023-03-09 12:42 | PCM.HP.BLA ---
History and Physical Date of Admission: 03/17/23 HPI: The patient is a 47 year old female presenting for pre-operative visit. She is scheduled for laparoscopy with left salpingoophorectomy and right salpingectomy, possible right ovarian cystectomy, for chronic pelvic pain and left ovarian cysts on 03/17/2023. Procedure discussed along with risks, benefits and complications. Other alternatives discussed for management. Consent form signed? Yes. ? ? PAST MEDICAL HISTORY PAST MEDICAL HISTORY Diagnosis Date ? Asthma 03/2016 ? + [facility] at [facility]. ? Depressive disorder, not elsewhere classified ? ? Encounter for insertion or removal of intrauterine contraceptive device 07/17/2007 ? Mirena, Removed 10/23/2007 ? Migraine, unspecified, with intractable migraine, so stated, without mention of status migrainosus ? ? Migraine ? Obesity (BMI 30-39.9) ? ? Placenta previa without hemorrhage, antepartum 08/26/2008 ? Seasonal allergic rhinitis 03/2016 ? No allergy testing. ? 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 ? Unspecified essential hypertension ? ? Viral pneumonia, unspecified 1999 ? Pneumonia ? ? PAST SURGICAL HISTORY PAST SURGICAL HISTORY Procedure Laterality Date ? APPENDECTOMY ? 01/2019 ? DELIVERY ONLY ? 2005, 2007, 2008 ? , low cervical X3 ? GASTRIC BYPASS HX ? 09/20/2022 ? Reun Y ? IUD INSERTION ([employer])_*[place] ? 07/17/2007 ? Mirena ? IUD REMOVAL ([employer])_*[place] ? 10/23/2007 ? Mirena ? LIG/TRNSXJ FLP TUBE ABDL/VAG APPR UNI/BI ? 2008 ? Tubal ligation ? PAST SURGICAL HISTORY OF ? 1985 ? Eye surgery ? TOTAL ABDOMINAL HYSTERECT W/WO RMVL TUBE OVARY ? 04/22/2011 ? [facility] ? ? ? CURRENT MEDICATIONS Current Outpatient Medications Medication Sig Dispense Refill ? POTASSIUM ORAL Take by mouth. ? ? ? MULTIVITAMIN ORAL Take by mouth. ? ? ? CALCIUM ORAL Take by mouth. ? ? ? cyanocobalamin/folic acid (VITAMIN [id number]-KHNWY ACID) 1,000-400 mcg lozg Dissolve under the tongue. ? ? ? citalopram (CELEXA) 20 mg tablet 20 mg. ? ? ? ibuprofen (MOTRIN) 800 mg tablet ? ? 0 ? ALPRAZolam (XANAX) 0.25 mg tablet Take 1 tablet by mouth once daily as needed for Anxiety. 10 tablet 0 ? albuterol HFA (VENTOLIN HFA) 90 mcg/actuation inhaler Inhale 2 Puffs as instructed every 4 hours as needed for Wheezing/Shortness of Breath. 1 Inhaler 3 ? LEVOXYL 200 mcg tablet Take 1 tablet by mouth daily before breakfast. In addition to 25mcg tablet. Do not substitute with generic 30 tablet 11 ? LEVOXYL 25 mcg tablet Take 1 tablet by mouth once daily. Take on empty stomach. For Thyroid. In addition to 200 mcg tablet. Do not substitute with generic 30 tablet 11 ? Hydrochlorothiazide 12.5 mg capsule Take 1 capsule by mouth once daily. 30 capsule 11 ? No current facility-administered medications for this visit. ? ? ALLERGIES: Citalopram, Codeine, [place], and Nsaids (Non-Steroidal Anti-Inflammatory Drug) ? PERSONAL HISTORY: SOCIAL HISTORY Social History ? Tobacco Use ? Smoking status: Never ? Smokeless tobacco: Never Vaping Use ? Vaping Use: Never used Substance Use Topics ? Alcohol use: No ? Drug use: No ? FAMILY HISTORY: FAMILY HISTORY FAMILY HISTORY Problem Relation Age of Onset ? Hypertension Mother ? ? Breast Cancer Mother ? ? Diabetes Father ? ? Stroke Father ? ? Cancer Maternal Grandmother ? ? UTERINE CANCER ? COPD Maternal Grandmother ? ? Emphysema ? ? REVIEW OF SYMPTOMS: GENERAL: denies fevers or chills ENDOCRINOLOGY: has not been on steroids Cardiology : denies palpitations or chest pain Respiratory: denies SOB or cough Hematology: denies history of prolonged bleeding or easy bruising or VTE Allergy: Denies history of personal or family history of allergy to anesthesia ? PHYSICAL EXAMINATION: ? VITALS: Last menstrual period 03/12/2011. ? GENERAL: The patient is well nourished, well hydrated in no acute distress. , The patient is oriented to time, place, and person. NECK: Supple. No lynphadenopathy, normal thyroid, no thyromegaly. LUNGS: Clear to auscultation bilaterally. no wheezes, rhonchi or rales HEART: Regular rate and rhythm, Normal heart sounds, and No murmurs or gallops ? IMPRESSION: chronic pelvic pain, left ovarian cysts ? PLAN: The risks/benefits/alternatives and personal involved for the planned left salpingoophorectomy and right salpingectomy, possible right ovarian cystectomy, for chronic pelvic pain and left ovarian cysts were reviewed with the patient. Her questions were answered to her satisfaction and she desires to proceed. Consent was signed. I reviewed with her postop instructions and expectations. ? ? I have reviewed and updated past medical and surgical history, medications and allergies Assessment & Plan Assessment/Plan (1) Left ovarian cyst: (2) Chronic pelvic pain in female:
[2023-03-11 13:20] LABS: Hematocrit 39.1 % (37-47); Hemoglobin 12.6 g/dL (12.0-15.0); Mean Corp Hgb Conc 32.2 g/dL (32-36); Mean Corpuscular Hgb 30.1 pg (27.0-32.0); Mean Corpuscular Volume 93.3 fL (81-99); Mean Platelet Vol. 11.5 fl (6.2-12.0); Platelet Count 311 K/mm3 (150-450); RBC Distribution Width CV 12.9 % (11.6-14.6); Red Blood Count 4.19 M/mm3 (4.2-5.4); White Blood Count 8.5 K/mm3 (4.4-11.0)
[2023-03-17] VITALS (8 sets, daily range): BP systolic 103–122; BP diastolic 62–72; PULSE 54–66; RESP 16–18; TEMP 36.2–36.4; O2SAT 96–100; BMI 27.4
[2023-03-17] MEDS: Lactated Ringers 1,000 ML 15 ML IV ×2 (10:22→11:46)
[2023-03-17] MEDS: Acetaminophen 500 MG Tablet 1000 MG PO (10:23)
[2023-03-17] MEDS: Bupivacaine Mpf 0.5% 30 ML VIAL (13:19)
--- NOTE | 2023-03-17 13:31 | PCM.DC ---
Discharge Instructions Diet Discharge Diet: No restrictions Activity Discharge Activity: May Drive (in 2-3 days as tolerated) May shower in (days): 1 May resume sexual activity in: No Restrictions Dressing / Incision Call your doctor if your incision/area has: Continuous Slow Oozing, Sudden Increased Bleeding and Foul Smelling Discharge Call your doctor if you observe: Fever of 101 or Higher Cleanse incision/area with: Soap & Water (YOur incisions have skin glue, it can get wet. Leave it on for 10 days or until it falls off) Follow Up Care Please Follow Up With: Angelia Blackwell MD When: as scheduled or as needed. [phone]. Call for concerns or send a [employer] message with non urgent questions Test Results: Test results from this visit will be discussed in further detail at your follow-up appointment, if applicable. Discharge Plan Admission Primary Reason for Your Visit: laparascopy Attending Provider: Angelia Blackwell Primary Care Provider: Carlos Chris Chi Discharge Orders/Prescriptions Prescriptions: New acetaminophen [Acetaminophen Extra Strength] 500 mg tablet 1,000 mg PO Q6H PRN (Reason: fever or pain) 20 Days Qty: 30 0RF oxycodone 5 MG tablet 5 mg PO Q6H PRN PRN (Reason: severe pain) 5 Days Qty: 10 0RF Continued rosuvastatin [Crestor] 40 mg tablet 40 mg PO DAILY Qty: 30 0RF paroxetine HCl 40 mg tablet 40 mg PO DAILY alprazolam [Xanax] 0.5 mg tablet 0.5 mg PO QHS PRN (Reason: Anxiety) albuterol sulfate 90 mcg/actuation HFA aerosol inhaler 2 puff inhalation Q4H PRN (Reason: shortness of breath or wheezing) Qty: 1 6RF Rx Instructions: administer with spacer potassium chloride 10 mEq tablet extended release 10 tablet PO DAILY hydrochlorothiazide 12.5 MG capsule 12.5 mg PO DAILY Label Comments: TAKE ONE CAPSULE BY MOUTH DAILY allopurinol 100 mg Tablet 100 mg PO DAILY B12 5,000-100 mcg Lozenge SUBLINGUAL Flintstones Complete Tablet,Chewable 2 tab PO DAILY Vitamin D3 1,000 u sublingual DAILY hydrochlorothiazide 12.5 mg tablet 12.5 mg PO DAILY calcium citrate malate-vit D3 PO/SL DAILY lisinopril 10 mg tablet 10 mg PO DAILY Qty: 90 3RF levothyroxine [Tirosint] 175 mcg capsule 175 mcg PO DAILY Qty: 30 2RF Referrals / Follow Up: Carlos Chris Chi, MD [Primary Care Provider] - Disposition Disposition (needs filled in before D/C Order can be placed): Home, Self Care
--- NOTE | 2023-03-17 13:34 | PCM.OPRPT ---
Problems Associated Problem List Diagnoses (1) Left ovarian cyst: (2) Chronic pelvic pain in female: Report of Operation Date of Procedure: 03/17/23 Pre-Operative Diagnosis: pelvic pain, left ovarian cyst Post-Operative Diagnosis: same Surgery/Procedure Performed:: diagnostic laparoscopy Description of Surgical Findings:: extensive omental adhesions, ovary w/ simple appearing cyst w/ pink/clear fluid, part of left fallopian tube, adhered to pelvic brim. Vaginal cuff and if present right ovary not visible Surgeon: Angelia Blackwell hospice care consultant: Bekah Rodriguez Type of Anesthesia: General Anesthesiologist: Tere Matt Special Medications: none Specimen's removed: none Drains: none Estimated Blood Loss (mL): 5 Fluids Replaced: 1000 Description of Procedure: The patient was taken to the operating room where she was prepped and draped in the dorsolithotomy position. Since the patient endocervix, sponge stick was placed in the vagina. Attention was turned to the abdomen. All port sites were infiltrated with 0.5% Marcaine before skin incisions were made. A 5 mm [intraumbilical] incision was made. The anterior abdominal wall was tented up with 2 towel clamps while a 5 mm blade less trocar and sleeve were inserted with the Visiport. Intraperitoneal placement was confirmed with the laparoscope. The pneumoperitoneum was created and the underlying abdominal contents were intact. The patient was placed in Trendelenburg. A clear spot was noted on the right and a right lower quadrant port was placed. Once that was placed we able to identify the ovary that seem to be adhered to the pelvic brim. There is extensive adhesions and the ovary appeared densely adhered to the sidewall. There are also extensive omental adhesions. I was unable to visualize the vaginal cuff easily or if there is a left ovary present, I was then able to identify it. I was unable to identify the left pelvic sidewall because of the extensive omental adhesions some of which seem to contain bowel that were adhered to the anterior abdominal wall along the left side. At this point, the decision was made that I would not proceed with removal of the ovary. It appeared benign. All indicators on ultrasound and lab markers suggested it was benign. I will discuss with patient the findings and if she wants to pursue other therapy or treatment or surgery will refer to [facility] clinic. Trocars were removed. The vaginal sponge stick was removed. Dr. Rahman closed the skin incisions with 4-0 Monocryl suture and skin glue. She also provided camera guidance during the procedure. I performed the remainder the procedure with assistance. Vaginal sweep was completed by me. All sponge and needle counts were correct. Grafts/Implants Used: none Procedure Start Time: 12:38 Procedure Stop Time: 13:07 Complications none Admit VTE Documentation VTE Present on Admission: No VTE Mechan Device Prophylaxis: SCD's VTE Pharm Prophylaxis ordered?: No Reason prophylaxis not ordered:: Procedure Not Indicated
== END 2023-03-17 16:56 | disposition home or self-care (01) ==
LOC: SDC 09:51 → AC 09:51
PROVIDERS: PCP Family Medicine Geriatric Medicine; Referring Provider Obstetrics & Gynecology; Visit Provider Obstetrics & Gynecology
PROC: (CPT 49320; principal; 2023-03-17 11:50)
DX: N83.202 Unspecified ovarian cyst, left side (principal); I10 Essential (primary) hypertension; R10.2 Pelvic and perineal pain; G89.29 Other chronic pain
CPT/HCPCS: 49320; 00790; 36415; 85027; 86850; 86900; 86901; J7120; J2405

== ENCOUNTER 2023-04-01 11:33 | Day surgery (SDC) | payer MEDICAID, SELFPAY ==
[2023-04-01 12:05] VITALS: BP 104/56; PULSE 60; RESP 16; TEMP 36.8; O2SAT 99; BMI 27.5
--- NOTE | 2023-04-01 12:15 | PCM.DC ---
Discharge Instructions Diet Discharge Diet: No restrictions and 4000 mg Sodium Diet Activity Discharge Activity: May Not Drive, May Shower (Please utilize cast bag covering during showering to keep dressings clean, dry, and intact to the foot), Use Walker and Use Crutches (Please utilize crutches or walker to maintain nonweightbearing status of the right foot) Weight Bearing Status: No weight bearing (Please remain nonweightbearing to the right foot with the assistance of crutches, walker, or knee scooter) Keep extremity elevated above heart level: Right Leg (Please elevate right lower extremity at all times of rest for postoperative edema control) Dressing / Incision Call your doctor if you observe: Fever of 101 or Higher, Shortness of breath, Chest pain, Calf discomfort and Uncontrolled pain Change Dressing in: do not change dressing Remove Dressing in: leave in place till F/U (Leave dressing intact to right foot. Physician will change dressing at first postoperative appointment) Cleanse incision/area with: Do not get Incision Wet and Keep Dressing Clean & Dry (Please keep dressings clean, dry, and intact to the right foot) Follow Up Care Please Follow Up With: Joshua Chin DPM When: Patient has first postoperative appointment with me in office next week Test Results: Test results from this visit will be discussed in further detail at your follow-up appointment, if applicable. Discharge Plan Admission Attending Provider: Joshua Chin Primary Care Provider: Carlos Chris Chi Discharge Orders/Prescriptions Prescriptions: New tramadol 50 mg tablet 50 mg PO Q6H PRN (Reason: pain) 7 Days Qty: 28 0RF doxycycline hyclate 100 mg capsule 100 mg PO BID 10 Days Qty: 20 0RF enoxaparin [Lovenox] 40 mg/0.4 mL syringe 40 mg subcut DAILY 20 Days Qty: 8 0RF No Action rosuvastatin [Crestor] 40 mg tablet 40 mg PO DAILY Qty: 30 0RF paroxetine HCl 40 mg tablet 40 mg PO DAILY alprazolam [Xanax] 0.5 mg tablet 0.5 mg PO QHS PRN (Reason: Anxiety) levothyroxine 175 mcg capsule 175 mcg PO DAILY allopurinol 100 mg Tablet 100 mg PO DAILY B12 5,000-100 mcg Lozenge 1 sona SUBLINGUAL DAILY Flintstones Complete Tablet,Chewable 2 tab PO DAILY calcium citrate malate-vit D3 1 ea PO/SL DAILY lisinopril 10 mg tablet 10 mg PO DAILY Qty: 90 3RF albuterol sulfate 90 mcg/actuation HFA aerosol inhaler 2 puff inhalation Q4H PRN (Reason: shortness of breath or wheezing) Qty: 1 6RF Rx Instructions: administer with spacer Referrals / Follow Up: Carlos Chris Chi, MD [Primary Care Provider] - Disposition Disposition (needs filled in before D/C Order can be placed): Home, Self Care
[2023-04-01] MEDS: Cefazolin 2 GM in 0.9% Normal Saline 100 ML IV (13:21)
--- NOTE | 2023-04-01 13:35 | RAD_ITS ---
INDICATION: REVISION FIRST METATARSAL PHALANGEAL ARTHRODESIS EXAMINATION/TECHNIQUE: X-RAY - RIGHT XR Foot intraoperative 17 VIEWS COMPARISON: FINDINGS: Revised surgical fixation of the first metatarsal phalangeal articulation . Bony details are limited. RAD/Foot min 3 Views IMPRESSION: Surgical revision of the first metatarsophalangeal articulation is noted.. Electronically Signed: Brian Galvez DO at 21:47 EDT Reading Location ID and State: [facility] / [place] Tel [phone], Service support ,
[2023-04-01] MEDS: Bupivacaine 0.25% 30 ML Vial (13:47)
[2023-04-01] MEDS: Lidocaine 1% (20 ml mdv) 20 ML Vial (13:47)
[2023-04-01 16:50] VITALS: BP 104/56; BP 125/79; PULSE 93; RESP 18; TEMP 36.1; O2SAT 97
--- NOTE | 2023-04-01 16:55 | RAD_ITS ---
INDICATION: Postoperative 1st MTPJ arthrodesis revision EXAMINATION/TECHNIQUE: X-RAY - RIGHT XR Foot 3 VIEWS COMPARISON: August 10, 2022 FINDINGS: SOFT TISSUES: No soft tissue swelling or gas. No radiopaque foreign body. BONES/JOINTS: Status post ORIF and surgical fixation of the first metatarsal phalangeal articulation. A cast is in place. No acute fracture or subluxation.. Normal alignment. Preservation of the joint space.. No sclerotic or destructive changes observed. RAD/Foot min 3 Views IMPRESSION: Status post ORIF and surgical fixation of the first metatarsal phalangeal articulation. A cast is in place. Electronically Signed: Brian Galvez DO at 21:44 EDT Reading Location ID and State: [facility] / [place] Tel [phone], Service support ,
[2023-04-01 17:00] VITALS: BP 104/56; BP 128/81; PULSE 86; RESP 18; O2SAT 96
[2023-04-01 17:25] VITALS: BP 104/56; BP 125/77; PULSE 80; RESP 18; O2SAT 98
--- NOTE | 2023-04-01 17:31 | OP.PCM_ITS ---
Problems Associated Problem List Diagnoses (1) Acquired hallux limitus of right foot: (2) Arthritis of first metatarsophalangeal (MTP) joint of right foot: (3) Pain in right foot: (4) Sesamoiditis of right foot: (5) Metatarsalgia, right foot: Report of Operation Date of Procedure: 04/01/23 Pre-Operative Diagnosis: 1. Hallux limitus right foot 2. Sesamoiditis right foot 3. Metatarsalgia right foot 4. Pain right foot Post-Operative Diagnosis: 1. Hallux limitus right foot 2. Sesamoiditis right foot 3. Metatarsalgia right foot 4. Pain right foot Surgery/Procedure Performed:: 1. Revision of first metatarsophalangeal joint arthrodesis right foot 2. EHL tendon lengthening right foot Description of Surgical Findings:: See operative note for findings Surgeon: Joshua Chin pigment making supervisor: Andrew Rouse DPM PGY-2 Type of Anesthesia: General and Local (10 cc one-to-one mixture 1% lidocaine plain and 0.5% Marcaine plain) Specimen's removed: Hardware Arthrex MaxForce 5 degree first MTPJ fusion right foot plate and screws x6 Drains: None Estimated Blood Loss (mL): <10mL Description of Procedure: HPI/indication: Patient is a 47-year-old female who had undergone first metatarsophalangeal joint arthrodesis on 08/10/2022. She did report fall early and postop. However states she feels she did not bump her foot. Upon return to shoe gear and weightbearing it was noted that the first digit did sit slightly higher with her hitchhiker toe. I discussed at this time a possible revision pending pain to the right foot. She did subsequently develop sesamoiditis and metatarsalgia type pain of the second metatarsal when on her feet for long periods of time. She states short trips to the bathroom or around the house did not cause pain however working her long distances such as walking from grocery store back to car did cause discomfort despite shoe gear and orthotic. She did asked to delay revision in order to undergo another medical procedure. She did return to office for surgical discussion on 03/14/2023 following the recovery from her other operative procedure. At that time we did discuss revision of the first metatarsophalangeal joint arthrodesis. She does wish to undergo revision surgery at this time. I did discuss procedure in great detail. Discussed rationale of the procedure. Discussed risks and complications of the procedure. Discussed the risk and complications include but are not limited to the following: Pain, continued pain, complex regional pain syndrome, neuritis/numbness, swelling/edema, scarring, poor cosmetic result, bleeding, blood clots, deformity, continued deformity, delayed healing/nonhealing, overcorrection or under correction, need for additional surgery, hardware failure, hardware irritation/symptomatic hardware, fracture, delayed union, nonunion, dehiscence, infection, allergic reaction, transfer lesions, postoperative arthritis, weakness, shoe gear problems, inability to walk, inability to wear shoes, floating toe, contracted toe, deviated toe, stroke, heart attack, addiction to pain medication, loss of function, loss of limb, and loss of life. The patient voiced understanding and agreement. Patient was able to repeat these back. Alternative options were discussed and reviewed with the patient in great detail, reviewed all risks versus possible benefits of all options. I discussed the procedure in detail with expected timeframe of recovery/postoperative course with her. Patient expressed understanding and agreement. Consent forms were reviewed with the patient and the patient freely signed them. No guarantees were given. Patient states that she has a new 80 pound puppy who has jumped on her foot and she would like to protect the site with casting following the procedure. I am in agreement with this. Patient has undergone clearance by her PCP prior to operative procedure. I did review H&P and all diagnostic data and imaging prior to entering the operating room. Operative limb was signed prior to entering operative room. Patient was scheduled to undergo revision of the first metatarsophalangeal joint arthrodesis of the right foot at [facility] on 04/01/2023. Procedure: Under mild sedation patient brought in the operating placed on table in supine position. Following IV sedation pneumatic calf tourniquet was placed about the patient's right calf. A local anesthetic block was then performed about the proximal first ray consisting of 10 cc of a one-to-one mixture of 1% lidocaine plain and 0.5% Marcaine plain. The right foot was then elevated with a blanket bump. The foot was then scrubbed, prepped, and draped in usual aseptic manner. The foot was exsanguinated with an Esmarch bandage and the pneumatic ankle tourniquet was inflated to 250 mmHg. At this time attention was directed to the dorsal aspect of the first metatarsophalangeal joint where multiple fluoroscopic images confirming hardware placement at the first metatarsophalangeal joint arthrodesis site. A linear longitudinal incision was made proximal to distal overlying the first metatarsophalangeal joint and has retained hardware but just medial to the EHL tendon. The incision was then deepened through sharp and blunt dissection. Care was taken to identify all vital neurovascular structures protected throughout the duration of this case. The EHL tendon was identified retracted laterally and protected throughout the duration of this case. A linear longitudinal incision was made overlying the retained hardware and extended distally to the interphalangeal joint of the hallux. The soft tissue was retracted medial and lateral providing access to the retained hardware. The Arthrex mini MaxForce first metatarsophalangeal joint arthrodesis plate and 5 dorsal screws were removed followed by the homerun compression screw. The site was then flushed with copious amounts of normal sterile saline. With all hardware removed the joint was identified via fluoroscopy and noted to be in adequate fusion upon loading, however deformity of the proximal phalanx did exist creating the elevated hallux. A sagittal saw was utilized to resect just slightly distal to the fusion site and a new fusion site was prepped utilizing 0.0062 K wire for subchondral drilling with adequate bone bleeding. Site was then flushed with copious amounts of normal sterile saline. At this time foot was reloaded and the digit did sit in slight elevation secondary to pull of the EHL tendon despite previous lengthening. At this time and EHL tendon lengthening was performed via Z-plasty utilizing a #15 blade following lengthening of the tendon the distal digit did drop and was in good alignment with loading of the foot under fluoroscopy. Next, following repositioning of the proximal phalanx a 0.045 K wire was inserted across the fusion site distal medial to proximal lateral as a temporary fixation and viewed under fluoroscopy in multiple views with the foot in loaded position confirming alignment. Digit was noted to be in better alignment with new position achieved. Next, Arthrex first metatarsophalangeal joint MaxForce 0 degree plate was applied to the dorsal first metatarsophalangeal joint fusion site and temporarily fixated with 2 olive wires. Position of the plate was confirmed in multiple fluoroscopic views. Following AO principles the 3 distal screw holes were filled with three 3.0 mm locking screws sizes 12 mm, 16 mm, and 22 mm. At this time allosync pure 2.5 mm putty was mixed with allosync DBM chips and packed across the fusion site. Following AO principles a 3.5x 40mm FT compression screw was placed across the fusion site distal medial to proximal lateral with adequate compression achieved with no gapping noted. Next, following AO principles the most proximal hole was filled with a 3.0 x 20mm locking screw in the hole just distal to this was filled with a 3.0 x 14 mm hybrid flat head cortical screw. The site was then flushed with copious amounts of normal sterile saline. At this time the pneumatic ankle tourniquet was deflated and a prompt hyperemic response was noted to the digits of the right foot. The EHL tendon was then repaired utilizing 4-0 Vicryl. Final fluoroscopic imaging was obtained in multiple views with the foot loaded and deemed excellent fixation with the hallux positioned in 10 degrees of dorsiflexion relative to the ground and 15 de grees relative to the first metatarsal with excellent compression across the arthrodesis site. The site was again flushed with copious amounts of normal sterile saline. The capsular tissue was reapproximated with 4-0 Vicryl. The subcutaneous layer was closed with a 4-0 Monocryl. And the skin was reapproximated with a 4-0 Prolene in simple interrupted fashion. The surgical site was then dressed with Betadine soaked Adaptic, 4 x 4 fluff, 4 x 4 gauze, Kerlix, Webril, and a well-padded BK cast was applied to the right lower extremity. The patient tolerated the procedure and anesthesia well was transported to PACU with vital signs stable vascular status intact to the right foot. Postoperative images obtained in PACU and reviewed prior to leaving. She was instructed to keep the cast clean, dry, and intact to the right foot. She will be nonweightbearing to the right lower extremity with the assistance of her crutches and knee scooter's. This is outlined in her postoperative instructions given to family, she is aware of her postoperative instructions. She will follow-up in office for her postoperative care early next week. Grafts/Implants Used: Arthrex MTPJ MaxForce 0 degree Fusion Plate, Screws x 6 Complications None Admit VTE Documentation VTE Present on Admission: No VTE Mechan Device Prophylaxis: SCD's VTE Pharm Prophylaxis ordered?: Yes
[2023-04-01 17:32] VITALS: BP 104/56; BP 119/73; PULSE 78; RESP 18; TEMP 36.4; O2SAT 95
[2023-04-01 17:52] VITALS: BP 104/56
[2023-04-01] MEDS: traMADol 50 MG Tablet PO (17:59)
--- NOTE | 2023-04-01 18:00 | SUR.PHASEII ---
CRUTCHES PROVIDED FOR PATIENT. SHE ALSO HAS A KNEE SCOOTER AT HOME.
== END 2023-04-01 18:29 | disposition home or self-care (01) ==
LOC: SDC 11:34 → AC 11:34
PROVIDERS: PCP Family Medicine Geriatric Medicine; Referring Provider Student in an Organized Health Care Education/Training Program; Visit Provider Student in an Organized Health Care Education/Training Program
PROC: (CPT 28750; principal; 2023-04-01 12:45)
DX: M19.071 Primary osteoarthritis, right ankle and foot (principal); F31.9 Bipolar disorder, unspecified; N18.30 Chronic kidney disease, stage 3 unspecified; M25.579 Pain in unspecified ankle and joints of unspecified foot; I12.9 Hypertensive chronic kidney disease with stage 1 through stage 4 chronic kidney disease, or unspecified chronic kidney disease; G47.33 Obstructive sleep apnea (adult) (pediatric); E89.0 Postprocedural hypothyroidism; Z99.89 Dependence on other enabling machines and devices; J45.909 Unspecified asthma, uncomplicated; F41.9 Anxiety disorder, unspecified; E78.00 Pure hypercholesterolemia, unspecified; Z98.84 Bariatric surgery status; M20.5X1 Other deformities of toe(s) (acquired), right foot; M25.871 Other specified joint disorders, right ankle and foot
CPT/HCPCS: 28750; 28225; 01480; 73630; 76000; C1713; J7040; J2405

== ENCOUNTER → 2023-05-19 | Outpatient (CLI) | payer MEDICAID, SELFPAY ==
[2023-05-19 10:30] LABS: Absolute Neutrophil Count 3.8 X10^3/uL (2.0-7.7); Basophil# 0.07 X10^3/uL; Eosinophil# 0.14 X10^3/uL; Eosinophils% 1.9 % (0-5); Hematocrit 36.5 % (37-47); Hemoglobin 11.5 g/dL (12.0-15.0); Lymphocyte % 38.5 % (19-41); Mean Corp Hgb Conc 31.5 g/dL (32-36); Mean Corpuscular Hgb 30.2 pg (27.0-32.0); Mean Corpuscular Volume 95.8 fL (81-99); Mean Platelet Vol. 10.5 fl (6.2-12.0); Monocyte# 0.43 X10^3/uL; Monocyte% 5.9 % (0-10); NRBC Flagged by Analyzer 0 % (0-5); Neutrophil # 3.83 X10^3/uL (2.7-7.7); Neutrophil % 52.6 % (47-70); Platelet Count 431 K/mm3 (150-450); RBC Distribution Width CV 13.6 % (11.6-14.6); RBC Distribution Width SD 47.9 fl (35.1-43.9); Red Blood Count 3.81 M/mm3 (4.2-5.4); White Blood Count 7.3 K/mm3 (4.4-11.0)
[2023-05-19 10:55] LABS: Hemoglobin A1c 4.9 % (3.8-5.6)
[2023-05-19 10:58] LABS: PTHIN 41.6 pg/mL (18.4-80.1)
[2023-05-19 11:03] LABS: Vitamin B12 794 pg/mL (211-911); Vitamin D,25 Hydroxy 50.2 ng/mL
[2023-05-19 11:50] LABS: ALB/GLOB Ratio 0.9 RATIO (0.9-2.4); AST(SGOT) 21 U/L (15-37); Alanine Aminotransfer ALT/SGPT 21 U/L (13-56); Albumin, Serum 3.2 g/dL (3.2-5.0); Alkaline Phosphatase 77 U/L (45-117); Anion Gap 4 (5-15); BUN 11 mg/dL (7-18); BUN/Creat Ratio 12.6 RATIO (10-20); Calcium,Total 8.4 mg/dL (8.5-10.1); Chloride 108 mmol/L (98-107); Cholesterol 141 mg/dL (200); Creatinine, Serum 0.87 mg/dL (0.55-1.02); EST Glomerular Filtration Rate 75 mL/min (>60); Est Glom Filt Rate - Afr Amer 90 mL/min (>60); Ferritin 259 ng/mL (8-252); Globulin 3.7 g/dL (2.2-4.2); Glucose 98 mg/dL (74-106); High Density Lipoprotein 38 mg/dL; Iron 63 ug/dL (50-170); Potassium 3.3 mmol/L (3.5-5.1); Protein, Total 6.9 g/dL (6.4-8.2); Sodium Level 140 mmol/L (136-145); Thyroid Stim Hormone (TSH) 8.84 uIU/mL (0.358-3.74); Triglycerides 105 mg/dL; Very Low Density Lipoprotein 21 mg/dL (5-40)
[2023-05-25 00:07] LABS: Copper, Serum or Plasma 117 ug/dL (80-158); Vitamin B1, Thiamine 105.5 nmol/L (66.5-200.0); Zinc, Plasma or Serum 82 ug/dL (44-115)
== END | disposition home or self-care (01) ==
PROVIDERS: PCP Family Medicine Geriatric Medicine; Visit Provider Family Medicine Geriatric Medicine
DX: I10 Essential (primary) hypertension (principal); E11.65 Type 2 diabetes mellitus with hyperglycemia; K90.9 Intestinal malabsorption, unspecified; E55.9 Vitamin D deficiency, unspecified; D64.9 Anemia, unspecified; Z98.84 Bariatric surgery status; E53.8 Deficiency of other specified B group vitamins
CPT/HCPCS: 36415; 80053; 80061; 82306; 82525; 82607; 82728; 82746; 83036; 83540; 83970; 84425; 84443; 84630; 85025

== ENCOUNTER → 2023-05-20 | Outpatient (CLI) | payer MEDICAID, SELFPAY ==
[2023-05-20 15:15] LABS: M R Staph aureus DNA By PCR Negative (Negative); Probe Check PASS; Staph aureus DNA By PCR NEGATIVE (Negative)
== END | disposition home or self-care (01) ==
LOC: POLAB3 10:12
PROVIDERS: PCP Family Medicine Geriatric Medicine; Visit Provider Family Medicine Geriatric Medicine
DX: L03.316 Cellulitis of umbilicus (principal)
CPT/HCPCS: 36415; 87070; 87077; 87186; 87205; 87640

== ENCOUNTER → 2023-06-01 | Outpatient (CLI) | payer MEDICAID, SELFPAY ==
--- NOTE | 2023-06-01 09:37 | US_ITS ---
STUDY: ABDOMINAL ULTRASOUND - RIGHT UPPER QUADRANT; ELASTOGRAPHY REASON FOR VISIT: Female, 47 years old. Fatty infiltration of the liver. TECHNIQUE: Ultrasound evaluation of the right upper quadrant was performed with real-time and static santiago-scale imaging. Point quantification shear wave elastography was performed ([employer]). TECHNICAL QUALITY: Limited. Examination limited by bowel gas. COMPARISON: Comparison is made with prior study August 04, 2021. FINDINGS: Liver: The liver measures 13 cm. There is increased echogenicity consistent with fatty infiltration. The bile ducts are within normal limits. There is hepatic color flow. The direction of portal flow is hepatopetal. There is no demonstrated mass lesion. Median liver stiffness measured 8 kPa. Gallbladder: Normal distended gallbladder. The gallbladder wall measures 2.5 mm. There is a negative sonographic Luis''s sign. There is no pericholecystic fluid. There are no gallstones. Common Bile Duct (C.B.D.): The common bile duct measures 5.2 mm. Pancreas: There is normal echogenicity of the visualized pancreas. There is no demonstrated pancreatic mass or cyst. Right Kidney: Normal size of the right kidney. The right kidney measures 7.9 cm x 4.8 cm x 4.9 cm. Normal renal cortex. The right cortex measures 1.6 cm. There is no demonstrated renal mass or cyst. There is no right hydronephrosis. US/ABD Limited w/ Elastography IMPRESSION: 1. Liver stiffness measures 8 kPa compatible with F2-F3 (Mild to moderate liver fibrosis) Metavir score. Electronically Signed: Carlos Agarwal MD at 15:55 EDT ,
== END | disposition home or self-care (01) ==
LOC: US 09:34
PROVIDERS: PCP Family Medicine Geriatric Medicine; Referring Provider Family Medicine Geriatric Medicine; Visit Provider Family Medicine Geriatric Medicine
DX: K76.0 Fatty (change of) liver, not elsewhere classified (principal)
CPT/HCPCS: 91200; 76705; 76981

== ENCOUNTER 2023-07-16 09:16 | Emergency (ER) | payer MEDICAID, SELFPAY ==
[2023-07-16 09:17] VITALS: BP 129/88; PULSE 67; RESP 19; TEMP 35.4; O2SAT 100; BMI 23.9
--- NOTE | 2023-07-16 09:57 | CT_ITS ---
INDICATION: Kidney Stone EXAMINATION: CT ABDOMEN AND PELVIS WITHOUT CONTRAST - CT Abdomen And Pelvis W/O Contrast Injection TECHNIQUE: Helically acquired images were obtained of the abdomen and pelvis without oral or IV contrast. A radiation dose optimization technique was used for this scan. IV Contrast dosage and agent: None. Oral contrast: None. RADIATION DOSAGE (If Supplied By Facility): CTDIvol = ( 6.04 ) mGy, DLP = ( 292.95 ) mGycm COMPARISON: December 31, 2022 FINDINGS: LOWER CHEST: There is a stable right lower lobe granuloma. No cardiomegaly or pericardial effusion. The lack of intravenous contrast limits evaluation of solid organs. LIVER: Homogeneous. No focal mass. GALLBLADDER AND BILIARY TREE: No calcified gallstones. No gallbladder distension or wall edema. No intra- or extrahepatic biliary ductal dilation. PANCREAS: No focal cystic or solid mass. SPLEEN: There are splenic granulomas. ADRENAL GLANDS: No nodules. KIDNEYS AND URETERS: There is right-sided hydroureteronephrosis secondary to a 3.6 mm calculus within the ureterovesicular junction. PERITONEUM: No ascites or free air. No other fluid collection. BOWEL: There are postsurgical changes of the stomach. No stomach or bowel distension. No focal inflammatory change. There is nonvisualization of the appendix. LYMPH NODES: No enlarged mesenteric or retroperitoneal lymph nodes. VESSELS: Aorta is non-dilated. REPRODUCTIVE ORGANS: No pelvic masses. ABDOMINAL WALL: No discrete abdominal or pelvic wall hernia. There are stable subcutaneous calcifications within the left gluteal region may be dystrophic calcifications. BONES: There are degenerative changes of the visualized thoracic and lumbar spine. CT/Abdomen/Pelvis without Cont IMPRESSION: Right-sided hydroureteronephrosis secondary to a 3.6 mm calculus within the ureterovesicular junction. Evidence of prior granulomatous disease. Degenerative changes of the visualized thoracic and lumbar spine. Electronically Signed: Sandhya Koch MD at 11:47 EDT ,
--- NOTE | 2023-07-16 10:06 | EDS_ITS ---
HPI History of Present Illness Chief Complaint: Flank Pain Narrative Narrative: 47-year-old female past medical history of hypertension, hyperlipidemia, had bariatric surgery and hysterectomy, along with appendectomy, presents with sudden onset of right flank pain that began this morning around 9 AM. She was laying in bed. This was about an hour ago. She denies any exacerbating or alleviating factors but states she is having pain in her right flank, radiating towards the front and downward. She denies any fevers or chills. She had so much pain that she vomited without any blood in her emesis. She denies any hematuria or dysuria. No other symptoms. Sharp and stabbing in nature. 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 Asthma Bipolar disorder Cardiology follow-up encounter Clostridium difficile infection Coronary artery calcification CPAP (continuous positive airway pressure) dependence DDD (degenerative disc disease), thoracic Depression Dietary restriction Essential (primary) hypertension Fatty liver Gastric reflux High cholesterol History of echocardiogram History of renal disease History of stress test Hyperlipidemia Hypertension Hypothyroidism Knee pain Non-smoker Obesity Osteoarthritis Pain aggravated by walking Paresthesia Postablative hypothyroidism Right foot pain Right knee pain Segmental and somatic dysfunction of thoracic region Sleep apnea Stage 3 chronic kidney disease Thyroid disease Vitamin D deficiency Wears dentures Wears glasses Home Medications rosuvastatin 40 mg tablet (Crestor) 40 mg PO DAILY #30 tabs 08/07/20 [Rx Last Taken Unknown] paroxetine HCl 40 mg tablet 40 mg PO DAILY 10/28/20 [History Last Taken Unknown] alprazolam 0.5 mg tablet (Xanax) 0.5 mg PO QHS PRN Anxiety 04/06/21 [History Last Taken Unknown] lisinopril 10 mg tablet 10 mg PO DAILY #90 tabs 10/25/22 [Rx Last Taken 04/01/23] allopurinol 100 mg tablet 100 mg PO DAILY 03/10/23 [History Last Taken Unknown] calcium citrate malate-vit D3 1 ea PO/SL DAILY 03/10/23 [History Last Taken Unknown] cyanocobalamin (B12)-cobamamide 5,000 mcg-100 mcg sublingual lozenge (B12) 1 sona sublingual DAILY 03/10/23 [History Last Taken Unknown] pediatric multivitamin no.76 (Flintstones Complete chewable tablet) 2 tab PO DAILY 03/10/23 [History Last Taken Unknown] albuterol sulfate 90 mcg/actuation aerosol inhaler 2 puff inhalation Q4H PRN shortness of breath or wheezing #1 device 03/29/23 [Rx Last Taken Unknown] doxycycline hyclate 100 mg capsule 100 mg PO BID 10 days #20 caps 04/01/23 [Rx Last Taken Unknown] enoxaparin 40 mg/0.4 mL subcutaneous syringe (Lovenox) 40 mg (0.4 mL) subcut DAILY 20 days #8 mL 04/01/23 [Rx Last Taken Unknown] tramadol 50 mg tablet 50 mg PO Q6H PRN pain 7 days #28 tabs 04/01/23 [Rx Last Taken Unknown] Tirosint 175 mcg capsule (levothyroxine) 175 mcg PO DAILY #90 caps 05/16/23 [Rx Last Taken Unknown] oxycodone-acetaminophen 5 mg-325 mg tablet (Percocet) 1 tab PO Q6H PRN pain 3 days #12 tabs 07/16/23 [Rx Last Taken Unknown] tamsulosin 0.4 mg capsule (Flomax) 0.4 mg PO QHS #10 caps 07/16/23 [Rx Last Taken Unknown] Allergy/AdvReac Type Severity Reaction Status Date / Time citalopram Allergy unknown Verified 07/16/23 09:27 codeine Allergy Unknown Verified 07/16/23 09:27 lithium Allergy Unknown Verified 07/16/23 09:27 Family History Mother Diabetes Breast cancer Anemia Depression Hypertension Father Diabetes Heart disease Hypertension CVA (cerebral vascular accident) in his 40'2 from CVA Hyperlipemia Brother Asthma Hypertension CAD (coronary artery disease), Onset Age: 50 coronary stents Sister Depression Seizures Grandmother Diabetes Thyroid disorder Heart disease Grandfather Diabetes Thyroid disorder Heart disease Aunt Heart disease CAD (coronary artery disease) stents Uncle Heart disease CAD (coronary artery disease) stents Other Arthritis Surgical History Bariatric surgery status Bariatric surgery status H/O tooth extraction History of appendectomy History of section, classical History of eyelid surgery History of hysterectomy Hx of appendectomy Hx of colonoscopy Hx of right knee surgery Social History Smoking Status: Never smoker second hand exposure: No alcohol intake: never substance use type: does not use caffeine: Yes frequency: does not exercise ROS ROS ED ROS Narrative Constitutional: No fever, no chills. HEENT: No sore throat. No neck pain. No loss of vision. No rhinorrhea. Cardiovascular: No chest pain. No palpitations. No pedal edema. Respiratory: No cough, no shortness of breath. Abdominal: No abdominal pain. Episode of nausea and vomiting secondary to pain. Genitourinary: No dysuria. No hematuria. Right flank pain, radiating towards front. Musculoskeletal: No myalgias. No arthralgias. Neurologic: No headaches. No dizziness. No lightheadedness. Skin: No rash. No change in color. Psychiatric: No depression. No anxiety. EXAM Physical Exam Narrative Exam Narrative: Afebrile. Vital signs noted. HEENT: Normocephalic. Atraumatic. PERRL, EOMI. Neck soft and supple. No point tenderness or step off. Cardiovascular: Regular rate and rhythm. No murmurs, rubs, or gallops appreciated. Respiratory: No tachypnea. Lungs clear to auscultation bilaterally. Gastrointestinal: Abdomen soft, nontender, with normoactive bowel sounds. No rebound or guarding. Minimal CVA tenderness to percussion, right. Neurological: Awake. Alert. Nonfocal, nonlateralizing. Skin: No rash. Normal color. No pallor. Musculoskeletal: No pedal edema. Full range of motion extremities. Const Vital Signs: 07/16/23 09:17 07/16/23 11:50 Temperature 95.7 F L Temperature Source Temporal Pulse Rate 67 49 L Respiratory Rate 19 H 18 Blood Pressure 129/88 H 138/94 H Blood Pressure Mean 101 108 Pulse Ox 100 100 Oxygen Delivery Method Room Air MDM MDM MDM Narrative Medical decision making narrative: In the differential diagnosis is ureterolithiasis versus diverticulitis. I have low concern for appendicitis as she had an appendectomy, and additionally, she states that she had her tubes and ovaries removed after hysterectomy, so I have low concern for ovarian pathology. Comprehensive work-up was pursued. As she has had bariatric surgery, she is not allowed to take NSAIDs so she will be administered morphine and ondansetron. CBC and BMP will also be obtained because she has history of chronic kidney disease. I reviewed her chart, and she has had pelvic pain in the past. I do feel CT imaging is indicated. I reviewed her laboratory work from today and she has normal white count of 5.8, hemoglobin normal at 12.7, platelet count normal at 266. Electrolyte panel is grossly unremarkable except for chloride of 108 which I think is nonspecific, normal BUN of 12, creatinine normal at 0.98. Urinalysis shows 0-5 WBCs but 5-10 RBCs. There are squamous epithelial cells. I do not feel antibiotics are indicated as I think this is more of a contaminated specimen. CT of the abdomen pelvis was reviewed without contrast, and it does show a 3.6 mm calculus at the ureterovesicular junction. She had received morphine initially for analgesia and needed a repeat dose. At this point in time, I do not feel she requires observation. She was referred to the urologist on-call, Dr. Marva Das for follow-up and written prescriptions for 3 days worth of Percocet and for Flomax to take daily. Return instructions were reviewed. She is to return with fever, intractable pain, new or worsening symptoms. Patient agreeable to the plan. Disposition is discharged home in stable condition. History & Record Review Discussion w/independent historian: Patient Additional record(s) reviewed:: Prior ED visit and Prior labs Lab Data Attestation: I reviewed the patient's lab results. Labs: Laboratory Results - last 24 hr 07/16/23 07/16/23 10:08 10:16 WBC 5.8 RBC 4.27 Hgb 12.7 Hct 40.4 MCV 94.6 MCH 29.7 MCHC 31.4 L RDW Std Deviation 45.9 H RDW Coeff of Dianna 13.2 Plt Count 266 MPV 10.9 Immature Gran % (Auto) 0.200 Neut % (Auto) 58.3 Lymph % (Auto) 32.9 [place] % (Auto) 4.6 Eos % (Auto) 3.1 Baso % (Auto) 0.9 Absolute Neuts (auto) 3.4 Absolute Lymphs (auto) 1.91 Nucleated RBC % 0 Sodium 141 Potassium 4.4 Chloride 108 H Carbon Dioxide 30.0 Anion Gap 3 L BUN 12 Creatinine 0.98 Estim Creat Clear Calc 54.70 Est GFR (MDRD) Af Amer 79 Est GFR (MDRD) Non-Af 65 BUN/Creatinine Ratio 12.2 Glucose 93 Calcium 8.7 Urine Color Yellow Urine Clarity Sl. Cloudy Urine pH 6.0 Ur Specific [facility] 1.020 Urine Protein 15 H Urine Glucose (UA) Normal Urine Ketones Negative Urine Occult Blood 50 H Urine Nitrite Negative Urine Bilirubin Negative Urine Urobilinogen 1 H Ur Leukocyte Esterase Negative Urine RBC 5-10 SEEN Urine WBC 0-5 SEEN Ur Squamous Epith Cells 10-25 SEEN Urine Bacteria 1+ Urine Mucus 0 SEEN Radiography Diagnostic Testing: Clinical Impression(s) from Imaging Studies Abdomen/Pelvis CT 07/16/23 09:57 IMPRESSION: Right-sided hydroureteronephrosis secondary to a 3.6 mm calculus within the ureterovesicular junction. Evidence of prior granulomatous disease. Degenerative changes of the visualized thoracic and lumbar spine. Electronically Signed: Sandhya Koch MD at 11:47 EDT , Discharge Plan Triage Chief Complaint: Flank Pain ED Provider: Ramirez Stanley Dx/Rx/DC Orders Clinical Impression: Ureterolithiasis, Right flank pain Instructions: ED Kidney Stone w/ Colic Prescriptions: New oxycodone-acetaminophen [Percocet] 5-325 mg tablet 1 tab PO Q6H PRN (Reason: pain) 3 Days Qty: 12 0RF tamsulosin [Flomax] 0.4 mg capsule 0.4 mg PO QHS Qty: 10 0RF No Action rosuvastatin [Crestor] 40 mg tablet 40 mg PO DAILY Qty: 30 0RF paroxetine HCl 40 mg tablet 40 mg PO DAILY Hold Instructions: Pt has been DC'd alprazolam [Xanax] 0.5 mg tablet 0.5 mg PO QHS PRN (Reason: Anxiety) allopurinol 100 mg Tablet 100 mg PO DAILY B12 5,000-100 mcg Lozenge 1 sona SUBLINGUAL DAILY Flintstones Complete Tablet,Chewable 2 tab PO DAILY calcium citrate malate-vit D3 1 ea PO/SL DAILY tramadol 50 mg tablet 50 mg PO Q6H PRN (Reason: pain) 7 Days Qty: 28 0RF Hold Instructions: Pt has been DC'd doxycycline hyclate 100 mg capsule 100 mg PO BID 10 Days Qty: 20 0RF Hold Instructions: Pt has been DC'd enoxaparin [Lovenox] 40 mg/0.4 mL syringe 40 mg subcut DAILY 20 Days Qty: 8 0RF Hold Instructions: Pt has been DC'd lisinopril 10 mg tablet 10 mg PO DAILY Qty: 90 3RF Hold Instructions: Pt has been DC'd albuterol sulfate 90 mcg/actuation HFA aerosol inhaler 2 puff inhalation Q4H PRN (Reason: shortness of breath or wheezing) Qty: 1 6RF Rx Instructions: administer with spacer levothyroxine [Tirosint] 175 mcg capsule 175 mcg PO DAILY Qty: 90 1RF Primary Care Provider: Carlos Chris Chi Referrals: Marva Das MD [Med Staff - Active Staff] - 3-5 Days Carlos Chris Chi, MD [Primary Care Provider] - Disposition Disposition: Home, Self Care
[2023-07-16 10:21] LABS: Absolute Lymphocyte Count 1.91 X10^3/uL (0.83-4.51); Absolute Neutrophil Count 3.4 X10^3/uL (2.0-7.7); Basophil# 0.05 X10^3/uL; Basophil% 0.9 % (0-1); Eosinophil# 0.18 X10^3/uL; Eosinophils% 3.1 % (0-5); Hematocrit 40.4 % (37-47); Hemoglobin 12.7 g/dL (12.0-15.0); Lymphocyte # 1.91 X10^3/ul (0.83-4.51); Lymphocyte % 32.9 % (19-41); Mean Corp Hgb Conc 31.4 g/dL (32-36); Mean Corpuscular Hgb 29.7 pg (27.0-32.0); Mean Corpuscular Volume 94.6 fL (81-99); Mean Platelet Vol. 10.9 fl (6.2-12.0); Monocyte# 0.27 X10^3/uL; Monocyte% 4.6 % (0-10); NRBC Flagged by Analyzer 0 % (0-5); Neutrophil # 3.39 X10^3/uL (2.7-7.7); Neutrophil % 58.3 % (47-70); Platelet Count 266 K/mm3 (150-450); RBC Distribution Width CV 13.2 % (11.6-14.6); RBC Distribution Width SD 45.9 fl (35.1-43.9); Red Blood Count 4.27 M/mm3 (4.2-5.4); White Blood Count 5.8 K/mm3 (4.4-11.0)
[2023-07-16 10:22] LABS: Mucous, Urine 0 SEEN /hpf (<or=2+)
[2023-07-16] MEDS: Ondansetron 4 MG/2 ML Vial IV (10:23)
[2023-07-16] MEDS: Morphine 4 MG/ML Syringe IV ×2 (10:24→12:17)
[2023-07-16 10:26] LABS: Anion Gap 3 (5-15); BUN 12 mg/dL (7-18); BUN/Creat Ratio 12.2 RATIO (10-20); Calcium,Total 8.7 mg/dL (8.5-10.1); Chloride 108 mmol/L (98-107); Creatinine, Serum 0.98 mg/dL (0.55-1.02); EST Glomerular Filtration Rate 65 mL/min (>60); Est Glom Filt Rate - Afr Amer 79 mL/min (>60); Glucose 93 mg/dL (74-106); Potassium 4.4 mmol/L (3.5-5.1); Sodium Level 141 mmol/L (136-145)
[2023-07-16 10:42] LABS: Color, Urine Yellow (Yellow); Glucose, Dipstick Normal (Normal); Ketone-Dipstick Negative (Negative); Leukocyte Esterase-Dipstick Negative /ul (Negative); Nitrite-Dipstick Negative (Negative); Occult Blood-Urine 50 /ul (Negative); Protein-Dipstick 15 mg/dl (Negative); Urine Bilirubin Dipstick Negative (Negative); Urine Clarity Sl. Cloudy (Clear); Urine Urobilinogen 1 mg/dl (Normal)
[2023-07-16 11:11] LABS: Bacteria 1+ /hpf (None Seen); Red Blood Cells-Urine 5-10 SEEN /hpf (0-5); Squamous Epithelial Cells - UA 10-25 SEEN /hpf (5-10); White Blood Cells 0-5 SEEN /hpf (0-5)
[2023-07-16 11:50] VITALS: BP 138/94; PULSE 49; RESP 18; O2SAT 100
[2023-07-16 12:19] VITALS: BP 150/80; PULSE 74; RESP 16; O2SAT 100
== END 2023-07-16 12:28 | disposition home or self-care (01) ==
PROVIDERS: Emergency Provider Emergency Medicine; PCP Family Medicine Geriatric Medicine; Visit Provider Emergency Medicine
DX: N13.2 Hydronephrosis with renal and ureteral calculous obstruction (principal); N18.30 Chronic kidney disease, stage 3 unspecified; I12.9 Hypertensive chronic kidney disease with stage 1 through stage 4 chronic kidney disease, or unspecified chronic kidney disease; R10.9 Unspecified abdominal pain; E78.00 Pure hypercholesterolemia, unspecified; I25.10 Atherosclerotic heart disease of native coronary artery without angina pectoris; Z90.710 Acquired absence of both cervix and uterus; Z90.49 Acquired absence of other specified parts of digestive tract; Z99.89 Dependence on other enabling machines and devices; F41.9 Anxiety disorder, unspecified; F32.A Depression, unspecified; J45.909 Unspecified asthma, uncomplicated; E03.9 Hypothyroidism, unspecified; Z79.899 Other long term (current) drug therapy; Z98.84 Bariatric surgery status
CPT/HCPCS: 74176; 80048; 81001; 85025; 96374; 96375; 96376; 99284; J7030; A4216; J2405

== ENCOUNTER → 2023-07-21 | Outpatient (CLI) | payer MEDICAID, SELFPAY ==
[2023-07-21 09:54] LABS: T4 Free Direct 0.52 ng/dL (0.76-1.46)
== END | disposition home or self-care (01) ==
LOC: LAB 08:45
PROVIDERS: PCP Family Medicine Geriatric Medicine; Visit Provider Nurse Practitioner Family
DX: E89.0 Postprocedural hypothyroidism (principal)
CPT/HCPCS: 36415; 84439; 84443

== ENCOUNTER 2023-08-04 11:29 | Day surgery (SDC) | payer MEDICAID, SELFPAY ==
[2023-08-04] MEDS: Lactated Ringers 1,000 ML 15 ML IV (12:00)
[2023-08-04 12:01] VITALS: BP 141/81; PULSE 63; RESP 12; TEMP 36.8; O2SAT 100; BMI 25.4
--- NOTE | 2023-08-04 12:16 | DCINST_ITS ---
Discharge Instructions Diet Discharge Diet: No restrictions Activity Discharge Activity: Return to Normal Activity Dressing / Incision Call your doctor if you observe: Fever of 101 or Higher, Inability to urinate and Inability to have a bowel movement Follow Up Care Please Follow Up With: Marva Das MD When: The office will call the patient to make follow-up arrangements Test Results: Test results from this visit will be discussed in further detail at your follow- up appointment, if applicable. Discharge Plan Admission Attending Provider: Marva Das Primary Care Provider: Carlos Chris Chi Discharge Orders/Prescriptions Prescriptions: New oxycodone-acetaminophen [Percocet] 5-325 mg tablet 1 tab PO Q8H PRN (Reason: pain) 3 Days Qty: 10 0RF cephalexin [cephalexin] 500 mg capsule 500 mg PO Q12 3 Days Qty: 6 0RF phenazopyridine [Pyridium] 200 mg tablet 200 mg PO TID PRN PRN (Reason: Bladder Spasms) 7 Days Qty: 30 0RF Continued rosuvastatin [Crestor] 40 mg tablet 40 mg PO DAILY Qty: 30 0RF alprazolam [Xanax] 0.5 mg tablet 0.5 mg PO QHS PRN (Reason: Anxiety) levothyroxine [Tirosint] 175 mcg capsule 175 mcg PO DAILY Qty: 90 1RF allopurinol 100 mg Tablet 100 mg PO DAILY B12 5,000-100 mcg Lozenge 1 sona SUBLINGUAL DAILY Flintstones Complete Tablet,Chewable 2 tab PO DAILY calcium citrate malate-vit D3 1 ea PO/SL DAILY vilazodone 10 mg tablet 20 mg PO QHS estradiol 0.075 mg/24 hr patch weekly 1 patch transdermal TH albuterol sulfate 90 mcg/actuation HFA aerosol inhaler 2 puff inhalation Q4H PRN (Reason: shortness of breath or wheezing) Qty: 1 6RF Rx Instructions: administer with spacer Referrals / Follow Up: Carlos Chris Chi, MD [Primary Care Provider] - Disposition Disposition (needs filled in before D/C Order can be placed): Home, Self Care
--- NOTE | 2023-08-04 12:17 | PCM.OPRPT ---
Problems Associated Problem List Diagnoses (1) Ureterolithiasis: Report of Operation Date of Procedure: 08/04/23 Pre-Operative Diagnosis: Left ureteral calculus Post-Operative Diagnosis: Same, passed Surgery/Procedure Performed:: Cystoscopy, left ureteroscopy, left ureteral stent insertion Surgeon: Marva Das Type of Anesthesia: General Specimen's removed: none Description of Procedure: The patient is a 47-year-old female with a left ureteral calculus who presents for surgical intervention. Informed consent was obtained. The patient was taken to the operating room and placed on the operating room table. Anesthesia monitored the head, neck, airway, IV access and vital signs throughout the case. Once anesthesia was appropriate ministered the patient was placed into dorsolithotomy position was prepped and draped in usual sterile fashion. The cystoscope was inserted through the urethra under direct visualization into the urinary bladder. The bladder mucosa was visualized in its entirety finding no evidence of erythema, mass or foreign body. The left ureteral orifice was gently intubated with a 0.035 Glidewire. A semirigid ureteroscope was then passed alongside the Glidewire and advanced through the left ureter until the renal pelvis was identified. The distal ureter was indeed narrow and required a second Glidewire for advancement into the distal ureter. The decision was made to leave a stent which was placed over the Glidewire with good positioning in the renal pelvis as well as the urinary bladder. The string was left intact for the patient to remove it herself. The patient's bladder was then emptied and the scope was removed. The patient was awakened and taken to the recovery room in good condition. There were no complications during this procedure. Grafts/Implants Used: 4.5 x 22 cm JJ stent Complications None Admit VTE Documentation VTE Present on Admission: Yes VTE Mechan Device Prophylaxis: SCD's VTE Pharm Prophylaxis ordered?: No Reason prophylaxis not ordered:: Treatment Not Indicated
[2023-08-04] MEDS: Cefazolin 2 GM in 0.9% Normal Saline (100mL Bag) 100 ML IV (13:21)
[2023-08-04 14:00] VITALS: BP 141/81; PULSE 46; RESP 18; TEMP 36.1; O2SAT 100
[2023-08-04 14:15] VITALS: BP 136/85; BP 141/81; PULSE 47; RESP 18; O2SAT 99
[2023-08-04 14:25] VITALS: BP 141/81; BP 153/93; PULSE 50; RESP 16; TEMP 36.3; O2SAT 100
[2023-08-04 15:16] VITALS: BP 136/72; BP 141/81; PULSE 53; RESP 18; TEMP 36.6; O2SAT 99
== END 2023-08-04 15:28 | disposition home or self-care (01) ==
LOC: SDC 11:30 → AC 11:57
PROVIDERS: PCP Family Medicine Geriatric Medicine; Referring Provider Urology; Visit Provider Urology
PROC: 0TJ98ZZ Inspection of Ureter, Via Natural or Artificial Opening Endoscopic (ICD-10-PCS; CPT 52352; principal; 2023-08-04 13:05)
DX: N13.2 Hydronephrosis with renal and ureteral calculous obstruction (principal); F31.9 Bipolar disorder, unspecified; N18.30 Chronic kidney disease, stage 3 unspecified; J45.909 Unspecified asthma, uncomplicated; Z98.84 Bariatric surgery status; E78.5 Hyperlipidemia, unspecified; G47.33 Obstructive sleep apnea (adult) (pediatric); F41.9 Anxiety disorder, unspecified; E03.9 Hypothyroidism, unspecified; I12.9 Hypertensive chronic kidney disease with stage 1 through stage 4 chronic kidney disease, or unspecified chronic kidney disease
CPT/HCPCS: 52332; 00910; 76000; J7120; J2405

== ENCOUNTER → 2023-08-22 | Outpatient (CLI) | payer MEDICAID, SELFPAY | END | disposition home or self-care (01) | LOC: PSN 12:33 | PROVIDERS: PCP Family Medicine Geriatric Medicine; Referring Provider Family Medicine Geriatric Medicine; Visit Provider Family Medicine Geriatric Medicine | DX: R68.83 Chills (without fever) (principal) | CPT/HCPCS: 87635; 87804; 87807; C9803 ==

== ENCOUNTER → 2023-10-04 | Outpatient (CLI) | payer MEDICAID, SELFPAY ==
--- NOTE | 2023-10-04 10:44 | US_ITS ---
INDICATION: ABDOMINAL PAIN EXAMINATION: Ultrasound US Abdomen Limited (quadrant) TECHNIQUE: Malin scale and color doppler imaging was performed of the right upper quadrant. COMPARISON: July 16, 2023 CT, June 01, 2023 ultrasound FINDINGS: LIVER: 13.8 cm Mild diffuse increased echogenicity Hepatopedal portal flow. No focal hepatic lesion. There is no free fluid. GALLBLADDER AND BILIARY TREE: Well filled gallbladder. No shadowing gallstone, pericholecystic fluid or gallbladder wall thickening is demonstrated. The proximal common bile duct measures 3 mm, which is within normal limits for the patient''s age. Songraphic Luis''s sign: None RIGHT KIDNEY: 8.7 cm in length. No hydronephrosis. 5 mm nonshadowing upper pole echogenic focus with twinkle artifact. Normal cortical echogenicity without focal thinning or scarring. No evidence of cystic or solid mass. PANCREAS: Pancreas is obscured by bowel gas. US/Abdomen Limited IMPRESSION: Small echogenic liver which can be seen with early fibrosis. Correlate with liver function. Echogenic upper pole renal focus which may represent prominent tissue interface or new 5 mm nonobstructing. No hydronephrosis. Pancreas is mostly obscured by bowel gas limiting evaluation. Electronically Signed: Carroll Villanueva MD at 9:16 EST ,
== END | disposition home or self-care (01) ==
LOC: US 10:42
PROVIDERS: PCP Family Medicine Geriatric Medicine
DX: R10.84 Generalized abdominal pain (principal)
CPT/HCPCS: 76705

== ENCOUNTER → 2023-10-25 | Outpatient (CLI) | payer MEDICAID, SELFPAY ==
[2023-10-25 17:07] LABS: Absolute Lymphocyte Count 2.29 X10^3/uL (0.83-4.51); Absolute Neutrophil Count 6.6 X10^3/uL (2.0-7.7); Basophil# 0.09 X10^3/uL; Basophil% 0.9 % (0-1); Eosinophil# 0.07 X10^3/uL; Eosinophils% 0.7 % (0-5); Hematocrit 43.5 % (37-47); Hemoglobin 13.1 g/dL (12.0-15.0); Lymphocyte # 2.29 X10^3/ul (0.83-4.51); Lymphocyte % 23.6 % (19-41); Mean Corp Hgb Conc 30.1 g/dL (32-36); Mean Corpuscular Hgb 29.8 pg (27.0-32.0); Mean Corpuscular Volume 99.1 fL (81-99); Mean Platelet Vol. 10.9 fl (6.2-12.0); Monocyte# 0.58 X10^3/uL; NRBC Flagged by Analyzer 0 % (0-5); Neutrophil # 6.63 X10^3/uL (2.7-7.7); Neutrophil % 68.5 % (47-70); Platelet Count 244 K/mm3 (150-450); RBC Distribution Width CV 14.6 % (11.6-14.6); RBC Distribution Width SD 53.1 fl (35.1-43.9); Red Blood Count 4.39 M/mm3 (4.2-5.4); White Blood Count 9.7 K/mm3 (4.4-11.0)
[2023-10-25 17:19] LABS: Erythrocyte Sedimentation Rate 21 mm/hr (0-30)
[2023-10-25 17:53] LABS: Anion Gap 5 (5-15); BUN 15 mg/dL (7-18); BUN/Creat Ratio 12.6 RATIO (10-20); CRP < 2.90 mg/L (0.0-3.0); Calcium,Total 8.6 mg/dL (8.5-10.1); Chloride 105 mmol/L (98-107); Creatinine, Serum 1.19 mg/dL (0.55-1.02); EST Glomerular Filtration Rate 52 mL/min (>60); Est Glom Filt Rate - Afr Amer 63 mL/min (>60); Glucose 105 mg/dL (74-106); Potassium 4.3 mmol/L (3.5-5.1); Sodium Level 137 mmol/L (136-145)
--- OUTSIDE RECORDS SUMMARY | 2023-10-25 17:57 | XMS RPT_ITS | CCD ---
Author Name Unknown Address [address] [place] [address] Organization [facility] Care Team Providers Care Electrician Control Equipment Name Role Phone Merly Bob NP Unavailable Aries, Carlos Chi Primary Care Provider RUY-ANAID SAINZ Unavailable DONCA, ZANDRA Unavailable SPARKLE RODRIGUEZ Unavailable PCP, Other Primary Care Physician PCP, OTHER Primary Care Unavailable DONCA, ZANDRA Attending Unavailable DONCA, ZANDRA Attending Unavailable PCP, OTHER Primary Care Unavailable PCP, OTHER Primary Care Unavailable TANYA BUNCH Attending Unavailable RUY-ALISTAIR, ANAID Attending Unavailable PCP, OTHER Primary Care Unavailable ALPHONSE GALVAN Unavailable DONCA, ZANDRA Attending Unavailable PCP, OTHER Primary Care Unavailable Aries, Carlos Chi Primary Care Provider [phone] Ivelisse Phillip MD Primary Care Provider Aries, Carlos Chi Primary Care Provider ARIES, CARLOS CHI Primary Care Unavailable GENEVIEVE THOMPSON Referring Unavailable ARIES, CARLOS CHI Primary Care Unavailable SYLVIA AYALA Admitting Unavailable ARIES, CARLOS CHI Primary Care Unavailable SYLVIA AYALA Attending Unavailable GUDELIA MI Attending Unavailable ARIES, CARLOS CHI Primary Care Unavailable GUDELIA MI Referring Unavailable ARIES, CARLOS CHI Primary Care Unavailable GUDELIA MI Referring Unavailable ARIES, CARLOS CHI Primary Care Unavailable GUDELIA MI Attending Unavailable ARIES, CARLOS CHI Primary Care Unavailable GUDELIA MI Referring Unavailable GUDELIA MI Attending Unavailable ARIES, CARLOS CHI Primary Care Unavailable ARIES, CARLOS CHI Primary Care Unavailable SYLVIA AYALA Attending Unavailable ARIES, CARLOS CHI Primary Care Unavailable GUDELIA MI Referring Unavailable ARIES, CARLOS CHI Primary Care Unavailable SYLVIA AYALA Attending Unavailable GUDELIA MI Attending Unavailable ARIES, CARLOS CHI Primary Care Unavailable Allergies Allergy Classification Reported Allergen(s) Allergy Type Date of Onset Reaction(s) Facility (4 sources) citalopram drug allergy 6 [facility] Work Phone: (20 sources) lithium; Translations: [LITHIUM] drug allergy 6 GI Upset [facility] Work Phone: (17 sources) Citalopram; Translations: [CITALOPRAM] Drug Allergy 3 GI Upset [facility] Work Phone: (17 sources) Codeine; Translations: [CODEINE] Drug Allergy 3 Other: See Comments [facility] (15 sources) Non-steroidal anti-inflammato ry agent; Translations: [NSAIDS (NON-STEROIDAL ANTI-INFLAMMATO RY DRUG)] Drug Allergy 3 Other: See Comments [facility] NEGATED: Highlighted row has been ruled out! (3 sources) natural latex rubber; Translations: [LATEX, NATURAL RUBBER] Drug allergy (disorder) [facility] [place] NEGATED: Highlighted row has been ruled out! (3 sources) No IV Contrast Allergy.; Translations: [IV Dye, Iodine Containing] Drug allergy (disorder) [place] Medications Current Medications Medication Drug Class(es) Dates Sig (Normalized) Sig (Original) Citracal Calcium+D (2 sources) Citracal Calcium +D Active CPAP (20 sources) Completed/Discontinued Medications Medication Drug Class(es) Dates Sig (Normalized) Sig (Original) acetaminophen 32 mg/ml oral solution (14 sources) Acetaminophen 16 0 MG/5ML as directed Orally Not-Taking acetaminophen 325 mg / oxyCODONE hydrochloride 5 mg oral tablet (8 sources) Opioid Agonist End: 09-11-2010 PERCOCET 5-325 MG TABS 1 tablet every 6 hours as needed for pain OXYCODONE-ACETAMINOP [facility] [id number] Kwaku Haider MD Problems Active Problems Problem Classification Problem Date Documented Da te Episodic/Chronic Adjustment disorders (20 sources) Adjustment disorder; Translations: [Adjustment disorder with other symptoms] Onset: 11-16-2010 11-16-2010 Chronic Anxiety disorders (8 sources) Anxiety disorder; Translations: [Anxiety] Onset: 09-22-2016 09-22-2016 Chronic Asthma (20 sources) Asthma; Translations: [Unspecified asthma, uncomplicated] Onset: 05-13-2015 09-22-2016 Chronic Chronic kidney disease (20 sources) Chronic kidney disease stage 3; Translations: [Chronic renal impairment, stage 3 (moderate), unspecified whether stage 3a or 3b CKD] Onset: 05-03-2023 05-03-2023 Chronic Chronic kidney disease (2 sources) Chronic kidney disease; Translations: [Chronic kidney disease, stage 3 unspecified] Onset: 05-27-2022 Resolved: 05-27-2022 Deficiency and other anemia (2 sources) Anemia, unspecified Episodic Diseases of white blood cells (4 sources) Leukocytosis; Translations: [Elevated white blood cell count, unspecified] Onset: 08-13-2010 08-13-2010 Chronic Disorders of lipid metabolism (20 sources) Hyperlipidemia; Translations: [Mixed hyperlipidemia] Onset: 05-13-2015 Resolved: 05-27-2022 09-22-2016 Chronic Esophageal disorders (20 sources) Esophageal reflux finding; Translations: [Gastro-esophageal reflux disease without esophagitis] Onset: 02-02-2022 Resolved: 06-23-2022 Chronic Essential hypertension (20 sources) Hypertensive disorder; Translations: [Benign essential hypertension] Onset: 07-27-2010 Resolved: 06-23-2022 09-22-2016 Chronic Gout and other crystal arthropathies (1 source) Gout, unspecified; Translations: [Gout, unspecified] Onset: 09-20-2022 Chronic Hypertension with complications and secondary hypertension (1 source) Hypertensive chronic kidney disease with stage 1 through stage 4 chronic kidney disease, or unspecified chronic kidney disease; Translations: [Hypertensive chronic kidney disease w stg 1-4/unsp chr kdny] Onset: 09-20-2022 Chronic Immunizations and screening for infectious disease (2 sources) Contact with and (suspected) exposure to other viral communicable diseases; Translations: [Contact w and exposure to oth viral communicable diseases] Onset: 09-17-2022 Episodic Mood disorders (20 sources) Recurrent major depression; Translations: [Depressive disorder] Onset: 07-27-2010 07-27-2010 Chronic Mood disorders (1 source) Mood disorders; Translations: [Depression, unspecified] Onset: 09-20-2022 Nutritional deficiencies (20 sources) Vitamin D deficiency; Translations: [Vitamin D deficiency, unspecified] Onset: 06-03-2012 Resolved: 06-23-2022 09-22-2016 Chronic Nutritional deficiencies (16 sources) Thiamine deficiency, unspecified; Translations: [Deficiency of other specified B group vitamins] Onset: 02-02-2022 Resolved: 02-02-2022 Episodic Osteoarthritis (1 source) Primary generalized (osteo)arthritis Onset: 05-27-2022 Resolved: 05-27-2022 Chronic Other aftercare (3 sources) Encounter for follow-up examination after completed treatment for conditions other than malignant neoplasm Episodic Other aftercare (1 source) long term care administrator (current) use of aspirin; Translations: [senior care (current) use of aspirin] Onset: 09-20-2022 Episodic Other diseases of kidney and ureters (1 source) Disorder of kidney and ureter, unspecified Episodic Other endocrine disorders (10 sources) Hyperparathyroidism; Translations: [Hyperparathyroidism , unspecified] Chronic Other endocrine disorders (2 sources) Hyperparathyroidism, unspecified Chronic Other gastrointestinal disorders (10 sources) Malabsorption syndrome; Translations: [Intestinal malabsorption, unspecified] Chronic Other gastrointestinal disorders (10 sources) Abnormal intestinal absorption; Translations: [Intestinal malabsorption, unspecified] Chronic Other gastrointestinal disorders (4 sources) Intestinal malabsorption, unspecified Chronic Other gastrointestinal disorders (4 sources) Bariatric surgery status Episodic Other gastrointestinal disorders (2 sources) Peritoneal adhesion; Translations: [Peritoneal adhesions (postprocedural) (postinfection)] Episodic Other gastrointestinal disorders (1 source) Adhesion of omentum; Translations: [Peritoneal adhesions (postprocedural) (postinfection)] Episodic Other gastrointestinal disorders (2 sources) Peritoneal adhesions (postprocedural) (postinfection); Translations: [Peritoneal adhesions] Onset: 04-25-2023 Episodic Other liver diseases (1 source) Fatty (change of) liver, not elsewhere classified; Translations: [Fatty (change of) liver, not elsewhere classified] Onset: 09-20-2022 Chronic Other nervous system disorders (1 source) Other chronic pain; Translations: [Chronic pelvic pain in female] Onset: 01-13-2023 Chronic Other nervous system disorders (1 source) Postoperative pain ; Translations: [Other acute postprocedural pain] 05-06-2023 Episodic Other nutritional; endocrine; and metabolic disorders (20 sources) Body mass index 30+ - obesity; Translations: [Overweight] Onset: 07-27-2010 09-22-2016 Chronic Other nutritional; endocrine; and metabolic disorders (1 source) Overweight; Translations: [Overweight] Onset: 02-10-2017 02-10-2017 Chronic Other nutritional; endocrine; and metabolic disorders (20 sources) Morbid obesity; Translations: [Morbid (severe) obesity due to excess calories] Onset: 07-27-2010 07-27-2010 Chronic Other nutritional; endocrine; and metabolic disorders (1 source) Body mass index (BMI) 40.0-44.9, adult; Translations: [Body mass index (BMI) 40.0-44.9, adult] Onset: 02-10-2017 02-10-2017 Chronic Other nutritional; endocrine; and metabolic disorders (20 sources) Obesity; Translations: [Other obesity due to excess calories] 09-20-2022 Chronic Other nutritional; endocrine; and metabolic disorders (9 sources) Other obesity due to excess calories; Translations: [Other obesity due to excess calories] Onset: 02-02-2022 Resolved: 06-23-2022 Chronic Other nutritional; endocrine; and metabolic disorders (5 sources) Morbid (severe) obesity due to excess calories; Translations: [Morbid (severe) obesity due to excess calories] Onset: 05-27-2022 Resolved: 05-27-2022 Chronic Other nutritional; endocrine; and metabolic disorders (20 sources) Obese class II; Translations: [Body mass index (BMI) 38.0-38.9, adult] Chronic Other nutritional; endocrine; and metabolic disorders (2 sources) Body mass index (BMI) 38.0-38.9, adult; Translations: [Body mass index [BMI] 38.0-38.9, adult] Onset: 09-20-2022 Chronic Residual codes; unclassified (20 sources) Sleep apnea; Translations: [Sleep apnea, unspecified] Chronic Residual codes; unclassified (8 sources) Sleep apnea, unspecified Onset: 02-02-2022 Resolved: 06-23-2022 Chronic Residual codes; unclassified (20 sources) Obstructive sleep apnea syndrome; Translations: [Obstructive sleep apnea (adult) (pediatric)] Onset: 05-03-2023 09-20-2022 Chronic Residual codes; unclassified (3 sources) Obstructive sleep apnea (adult) (pediatric); Translations: [Obstructive sleep apnea (adult) (pediatric)] Onset: 05-27-2022 Resolved: 05-27-2022 Chronic Thyroid disorders (20 sources) Hypothyroidism; Translations: [Hypothyroidism, unspecified] Onset: 10-10-1999 07-27-2010 Chronic Unclassified (1 source) Encounter for screening for COVID-19; Translations: [Encounter for screening for COVID-19] Onset: 09-17-2022 Past or Other Problems Problem Classification Problem Date Documented Da te Episodic/Chronic Abdominal pain (13 sources) Pelvic and perineal pain; Translations: [Pelvic and perineal pain] Onset: 01-13-2023 Episodic Diabetes mellitus without complication (12 sources) Disorder of glucose metabolism; Translations: [Other abnormal glucose] Onset: 05-13-2015 Resolved: 02-02-2022 05-13-2015 Episodic Disorders of teeth and jaw (15 sources) Dental caries; Translations: [Dental caries, unspecified] Onset: 06-10-2015 06-10-2015 Episodic Other connective tissue disease (4 sources) Swelling of lower limb; Translations: [Localized swelling, mass and lump, right lower limb] Onset: 09-22-2016 09-22-2016 Episodic Other connective tissue disease (1 source) Other muscle spasm; Translations: [Levator spasm] Onset: 01-13-2023 Episodic Other screening for suspected conditions (not mental disorders or infectious disease) (5 sources) Mammography abnormal; Translations: [Other abnormal and inconclusive findings on diagnostic imaging of breast] Onset: 02-02-2022 Resolved: 02-02-2022 Episodic Other upper respiratory infections (8 sources) Acute maxillary sinusitis; Translations: [Acute maxillary sinusitis, unspecified] Onset: 08-28-2010 Resolved: 09-11-2010 09-11-2010 Episodic Ovarian cyst (20 sources) Cyst of left ovary; Translations: [Unspecified ovarian cyst, left side] Onset: 02-03-2023 Episodic Residual codes; unclassified (15 sources) Family history of diabetes mellitus; Translations: [Family history of diabetes mellitus] Onset: 05-13-2015 10-05-2021 Episodic Spondylosis; intervertebral disc disorders; other back problems (4 sources) Lumbar radiculopathy; Translations: [Radiculopathy, lumbar region] Onset: 07-06-2010 07-27-2010 Episodic Thyroid disorders (7 sources) Abnormal results of thyroid function studies; Translations: [Disorder of thyroid, unspecified] Onset: 08-21-2010 Resolved: 02-02-2022 08-21-2010 Episodic Unclassified (4 sources) Foreign body; Translations: [Injury, unspecified] Onset: 09-22-2016 09-22-2016 Episodic Unclassified (1 source) Encounter for screening for COVID-19; Translations: [Encounter for screening for COVID-19] Onset: 09-17-2022 Results Test Name Value Interpretation Reference Range Facil ity Vital Signs Date Time Vital Sign Value Performing Clinician Facility 05-30-2023 13:00-0400 Diastolic blood pressure 76 mm[Hg] Sylvia Ayala DO Work Phone: [facility] 05-30-2023 13:00-0400 Systolic blood pressure 117 mm[Hg] Sylvia Ayala DO Work Phone: [facility] 05-26-2023 09:00-0400 Body height 152.4 cm ANAID RUY-ALISTAIR Other [facility] [employer]. Other 05-26-2023 09:00-0400 Body mass index (BMI) [Ratio] 25.58 kg/m2 ANAID RUY-ALISTAIR Other [facility] [employer]. Other 05-26-2023 09:00-0400 Body weight 59.42 kg ANAID RUY-ALISTAIR Other [facility] [employer]. Other 05-26-2023 08:00-0400 Diastolic blood pressure 79 mm[Hg] ANAID RUY-ALISTAIR Other [facility]. Other 05-26-2023 08:00-0400 Heart rate 63 /min ANAID RUY-ALISTAIR Other [facility] Other 05-26-2023 08:00-0400 Systolic blood pressure 121 mm[Hg] ANAID RUY-ALISTAIR Other [facility] [employer]. Other 04-25-2023 10:08-0400 Diastolic blood pressure 83 mm[Hg] Sylvia Billow DO Work Phone: [facility] 04-25-2023 10:08-0400 Heart rate 70 /min Sylvia Billow DO Work Phone: [facility] 04-25-2023 10:08-0400 Systolic blood pressure 121 mm[Hg] Sylvia Billow DO Work Phone: [facility] 03-23-2023 08:46-0400 Body weight 65.32 kg Gudelia Mi MD Work Phone: [facility] 03-23-2023 08:46-0400 Diastolic blood pressure 62 mm[Hg] Gudelia Mi MD Work Phone: [facility] 03-23-2023 08:46-0400 Systolic blood pressure 110 mm[Hg] Gudelia Mi MD Work Phone: [facility] 03-09-2023 09:19-0400 Body height 151.8 cm Gudelia Mi MD Work Phone: [facility] 03-09-2023 09:19-0400 Body weight 61.69 kg Gudelia Mi MD Work Phone: [facility] 03-09-2023 09:19-0400 Diastolic blood pressure 60 mm[Hg] Gudelia Mi MD Work Phone: [facility] 05-31-2023 09:19-0400 Heart rate 68 /min Gudelia Mi MD Work Phone: [facility] 03-09-2023 09:19-0400 Respiratory rate 16 /min Gudelia Mi MD Work Phone: [facility] 03-09-2023 09:19-0400 SaO2% (BldA) [Mass fraction] 99 % Gudelia Mi MD Work Phone: [facility] 03-09-2023 09:19-0400 Systolic blood pressure 110 mm[Hg] Gudelia Mi MD Work Phone: [facility] 11-01-2022 16:30-0500 Body height 152.4 cm SPARKLE JENNIFER Other [facility] [employer] Other 11-01-2022 16:30-0500 Body mass index (BMI) [Ratio] 33.78 kg/m2 SPARKLE FISTEK Other [facility] [employer] Other 11-01-2022 16:30-0500 Body weight 78.47 kg SPARKLE FISTEK Other [facility] [employer] Other 11-01-2022 16:30-0500 Diastolic blood pressure 85 mm[Hg] SPARKLE FISTEK Other [facility] [employer] Other 11-01-2022 16:30-0500 Heart rate 76 /min SPARKLE FISTEK Other [facility] [employer] Other 11-01-2022 16:30-0500 Systolic blood pressure 125 mm[Hg] SPARKLE FISTEK Other [facility] [employer] Other 11-01-2022 15:30-0500 Body height 152.4 cm ANAID RUY-ALISTAIR Other [facility] [employer]. Other 11-01-2022 15:30-0500 Body mass index (BMI) [Ratio] 33.78 kg/m2 ANAID RUY-ALISTAIR Other [facility] [employer]. Other 11-01-2022 15:30-0500 Body weight 78.47 kg ANAID RUY-ALISTAIR Other [facility] [employer] Other 10-18-2022 10:00-0500 Body height 152.4 cm SPARKLE FISTEK Other [facility] [employer] Other 10-18-2022 10:00-0500 Body mass index (BMI) [Ratio] 33.2 kg/m2 SPARKLE FISTEK Other [facility] [employer] Other 10-18-2022 10:00-0500 Body weight 77.11 kg SPARKLE FISTEK Other [facility] [employer] Other 10-18-2022 10:00-0500 Diastolic blood pressure 79 mm[Hg] SPARKLE FISTEK Other [facility] [employer] Other 10-18-2022 10:00-0500 Heart rate 79 /min SPARKLE FISTEK Other [facility] [employer] Other 10-18-2022 10:00-0500 Systolic blood pressure 112 mm[Hg] SPARKLE FISTEK Other [facility] [employer] Other 10-05-2022 15:30-0500 Body height 152.4 cm ANAID RUY-ALISTAIR Other [facility] [employer] Other 10-05-2022 15:30-0500 Body mass index (BMI) [Ratio] 33.59 kg/m2 ANAID RUY-ALISTAIR Other [facility] [employer] Other 10-05-2022 15:30-0500 Body weight 78.02 kg ANAID RUY-ALISTAIR Other [facility] [employer] Other 10-05-2022 15:30-0500 Diastolic blood pressure 82 mm[Hg] SPARKLE FISTEK Other [facility] [employer] Other 10-05-2022 15:30-0500 Heart rate 92 /min SPARKLE FISTEK Other [facility] [employer] Other 10-05-2022 15:30-0500 Systolic blood pressure 117 mm[Hg] SPARKLE FISTEK Other [facility] [employer] Other 09-22-2022 15:57-0500 Body height 152.4 cm MD Anaid Garsia MD [employer] 09-22-2022 15:57-0500 Body mass index (BMI) [Ratio] 39.18 kg/m2 MD Anaid Garsia MD [employer] 09-22-2022 15:57-0500 Body temperature 97.34 [degF] MD Anaid Garsia MD [employer] 09-22-2022 15:57-0500 Body weight 91 kg MD Anaid Garsia MD [facility] [place] 09-22-2022 15:57-0500 Diastolic blood pressure 77 mm[Hg] MD Anaid Garsia MD [facility] [place] 09-22-2022 15:57-0500 Heart rate 77 /min MD Anaid Garsia MD [facility] [place] 09-22-2022 15:57-0500 Inhaled oxygen concentration 97 % MD Anaid Garsia MD [facility] [place] 09-22-2022 15:57-0500 Respiratory rate 18 /min MD Anaid Garsia MD [facility] [place] 09-22-2022 15:57-0500 Systolic blood pressure 122 mm[Hg] MD Anaid Garsia MD [facility] [place] 08-26-2022 11:00-0500 Diastolic blood pressure 75 mm[Hg] ZANDRA DONCA Other [facility] [employer] Other 08-26-2022 11:00-0500 Heart rate 91 /min ZANDRA DONCA Other [facility] [employer] Other 08-26-2022 11:00-0500 Respiratory rate 16 /min ZANDRA DONCA Other [facility] [employer] Other 08-26-2022 11:00-0500 Systolic blood pressure 124 mm[Hg] ZANDRA DONCA Other [facility] [employer] Other 08-26-2022 09:00-0500 Body height 152.4 cm ANAID GARSIA Other [facility] [employer] Other 08-26-2022 09:00-0500 Body mass index (BMI) [Ratio] 34.95 kg/m2 ANAID RUY-ALISTAIR Other [facility] [employer] Other 08-26-2022 09:00-0500 Body weight 81.19 kg ANAID RUY-ALISTAIR Other [facility] [employer]. Other 07-23-2022 10:30-0400 Body height 152.4 cm ANAID RUY-ALISTAIR Other [facility] [employer] Other 07-23-2022 10:30-0400 Body mass index (BMI) [Ratio] 37.3 kg/m2 NAAID RUY-ALISTAIR Other [facility] [employer] Other 07-23-2022 10:30-0400 Body weight 86.64 kg ANAID RUY-ALISTAIR Other [facility] [employer] Other 06-23-2022 17:30-0400 Body height 152.4 cm ZANDRA DONCA Other [facility] [place] Other 06-23-2022 17:30-0400 Body mass index (BMI) [Ratio] 37.88 kg/m2 ZANDRA DONCA Other [facility] [place] Other 06-23-2022 17:30-0400 Body weight 88 kg ZANDRA DONCA Other [facility] [place] Other 06-23-2022 17:00-0400 Diastolic blood pressure 79 mm[Hg] ZANDRA DONCA Other [facility] [employer] Other 06-23-2022 17:00-0400 Heart rate 96 /min ZANDRA RUBIN Other [facility] [employer]. Other 06-23-2022 17:00-0400 Respiratory rate 16 /min ZANDRA SPAULDINGCA Other [facility] [employer]. Other 06-23-2022 17:00-0400 Systolic blood pressure 130 mm[Hg] ZANDRA RUBIN Other [facility] [employer] Other 05-27-2022 11:45-0400 Body height 152.4 cm ZANDRA RUBIN Other [facility] [employer] Other 05-27-2022 11:45-0400 Body mass index (BMI) [Ratio] 37.69 kg/m2 ZANDRA RUBIN Other [facility] [employer] Other 05-27-2022 11:45-0400 Body weight 87.54 kg ZANDRA RUBIN Other [facility] [employer] Other 05-27-2022 11:00-0400 Respiratory rate 16 /min ZANDRA SPAULDINGCA Other [facility] [employer] Other 05-27-2022 09:45-0400 Diastolic blood pressure 69 mm[Hg] ZANDRA SPAULDINGCA Other [facility] [employer] Other 05-27-2022 09:45-0400 Heart rate 89 /min ZANDRA SPAULDINGCA Other [facility] [employer] Other 05-27-2022 09:45-0400 Systolic blood pressure 126 mm[Hg] ZANDRAFARZANEH SPAULDINGCA Other [facility] [employer]. Other 05-05-2022 13:00-0400 Body height 152.4 cm ZANDRA SPAULDINGCA Other [facility] [employer]. Other 05-05-2022 13:00-0400 Body mass index (BMI) [Ratio] 39.06 kg/m2 ZANDRA DONCA Other [facility] [employer]. Other 05-05-2022 13:00-0400 Body weight 90.72 kg ZANDRA SPAULDINGCA Other [facility] [employer] Other 04-05-2022 10:30-0400 Body height 152.4 cm ANAID RUY-ALISTAIR Other [facility] [employer] Other 04-05-2022 10:30-0400 Body mass index (BMI) [Ratio] 39.06 kg/m2 ANAID RUY-ALISTAIR Other [facility] [employer]. Other 04-05-2022 10:30-0400 Body weight 90.72 kg ANAID RUY-ALISTAIR Other [facility] [employer]. Other 03-17-2022 17:00-0400 Body height 152.4 cm ZANDRA DONCA Other [facility] [employer] Other 03-17-2022 17:00-0400 Body mass index (BMI) [Ratio] 40.03 kg/m2 ZANDRA DONCA Other [facility] [employer]. Other 03-17-2022 17:00-0400 Body weight 92.99 kg ZANDRA RUBIN Other [facility] [employer]. Other 03-02-2022 14:30-0400 Body height 152.4 cm ANAID RUY-ALISTAIR Other [facility] [employer]. Other 03-02-2022 14:30-0400 Body mass index (BMI) [Ratio] 39.64 kg/m2 ANAID RUY-ALISTAIR Other [facility] [employer] Other 03-02-2022 14:30-0400 Body weight 92.08 kg ANAID RUY-ALISTAIR Other [facility] [employer] Other 03-02-2022 14:00-0400 Diastolic blood pressure 71 mm[Hg] ZANDRA SPAULDINGCA Other [facility] [employer] Other 03-02-2022 14:00-0400 Heart rate 81 /min ZANDRA SPAULDINGCA Other [facility] [employer] Other 03-02-2022 14:00-0400 Respiratory rate 16 /min ZANDRA SPAULDINGCA Other [facility] [employer] Other 03-02-2022 14:00-0400 Systolic blood pressure 116 mm[Hg] ZANDRA DONCA Other [facility] [employer] Other 02-02-2022 17:15-0400 Body height 152.4 cm ZANDRA SPAULDINGCA Other [facility] [facility] [employer] Other 02-02-2022 17:15-0400 Body mass index (BMI) [Ratio] 40.62 kg/m2 ZANDRA RUBIN Other [facility] [employer]. Other 02-02-2022 17:15-0400 Body weight 94.35 kg ZANDRA RUBIN Other [facility] [employer]. Other 02-02-2022 17:15-0400 Diastolic blood pressure 78 mm[Hg] ZANDRA RUBIN Other [facility] [employer]. Other 02-02-2022 17:15-0400 Heart rate 84 /min ZANDRA RUBIN Other [facility] [employer]. Other 02-02-2022 17:15-0400 Respiratory rate 16 /min ZANDRA RUBIN Other [facility] [employer]. Other 02-02-2022 17:15-0400 Systolic blood pressure 111 mm[Hg] ZANDRA RUBIN Other [facility] [employer]. Other 02-02-2022 16:15-0400 Body height 152.4 cm ANAID RUY-ALISTAIR Other [facility] [employer]. Other 02-02-2022 16:15-0400 Body mass index (BMI) [Ratio] 40.62 kg/m2 ANAID RUY-ALISTAIR Other [facility] [employer]. Other 02-02-2022 16:15-0400 Body weight 94.35 kg ANAID RUY-ALISTAIR Other [facility] Other 02-10-2017 13:15-0400 BMI (Body Mass Index) 40.39 kg/m2 Merly Bob NP [facility] Work Phone: 02-10-2017 13:15-0400 Body Temperature 98.1 [degF] Merly Bob NP [facility] Work Phone: 02-10-2017 13:15-0400 BP Diastolic 81 mm[Hg] Merly Bob NP [facility] Work Phone: 02-10-2017 13:15-0400 BP Systolic 134 mm[Hg] Merly Bob NP [facility] Work Phone: 02-10-2017 13:15-0400 BSA (Body Surface Area) 1.95 m2 Merly Bob NP [facility] Work Phone: 02-10-2017 13:15-0400 Height 154.94 cm Merly Bob NP [facility] Work Phone: 02-10-2017 13:15-0400 Pulse (Heart Rate) 70 /min Merly Bob NP [facility] Work Phone: 02-10-2017 13:15-0400 Pulse Oximetry 97 % Merly Bob NP [facility] Work Phone: 02-10-2017 13:15-0400 Respiratory Rate 16 /min Merly Bob NP [facility] Work Phone: 02-10-2017 13:15-0400 Weight 96.98 kg Merly Bob NP [facility] Work Phone: 09-22-2016 13:36-0500 BMI (Body Mass Index) 39.3 kg/m2 Merly Bob NP [facility] Work Phone: 09-22-2016 13:36-0500 Body Temperature 98.4 [degF] Merly Bob NP [facility] Work Phone: 09-22-2016 13:36-0500 BP Diastolic 87 mm[Hg] Merly Bob NP [facility] Work Phone: 09-22-2016 13:36-0500 BP Systolic 125 mm[Hg] Merly Bob NP [facility] Work Phone: 09-22-2016 13:36-0500 BSA (Body Surface Area) 1.92 m2 Merly Bob NP [facility] Work Phone: 09-22-2016 13:36-0500 Height 154.94 cm Merly Bob NP [facility] Work Phone: 09-22-2016 13:36-0500 Pulse (Heart Rate) 90 /min Merly Bob NP [facility] Work Phone: 09-22-2016 13:36-0500 Pulse Oximetry 100 % Merly Bob NP [facility] Work Phone: 09-22-2016 13:36-0500 Respiratory Rate 16 /min Merly Bob NP [facility] Work Phone: 09-22-2016 13:36-0500 Weight 94.35 kg Merly Bob NP [facility] Work Phone: 09-22-2016 13:36-0500 Weight 94.55 kg Merly Bob NP [facility] Work Phone: Encounters Encounter Date Encounter Type Care Provider Facility Start: 05-30-2023 End: 05-30-2023 ambulatory CARLOS CHI ARIES Facility:[facility] Start: 05-30-2023 End: 05-30-2023 Patient encounter procedure Sylvia Roseanna Work Phone: Obstetrics/Gynecology Procedures Date Procedure Procedure Detail Performing Clinician Start: 09-20-2022 Completed LAPAROSCOP IC SIMONA EN Y GASTRIC BYPASS, by Felisa Lombardo, on 09/20/2022 12:20 PM MD Anaid Garsia MD Start: 01-19-2022 Us breast uni real t katina with image limited Angle Fagan FARM MACHINERY ERECTOR.CNM Work Phone: Start: 01-19-2022 VIVIANE KAYLAHG W EMANI LT Cour haile Fagan FARM MACHINERY ERECTOR.CNM Work Phone: Start: 12-14-2021 Mammography Us 1 Work Phone: Start: 02-10-2017 End: 02-10-2017 Dietary management education, guidance, and counseling Merly Bob NP Start: 02-10-2017 End: 02-10-2017 Thyroid stimulating hormone (TSH) Merly Bob WIRE ANNEALER Work Phone: Start: 02-10-2017 End: 02-10-2017 Thyroxine (T4) free Merly Bob WIRE ANNEALER Work Phone: Start: 09-19-2013 Melly moreno MD Work Phone: Start: 09-11-2010 End: 09-11-2010 Follow up Appt 1 week Kwaku Haider MD Start: 08-28-2010 End: 08-28-2010 Follow Up as scheduled Kwaku Haider MD Start: 08-21-2010 End: 08-25-2010 Assay of free thyroxine Kwaku Haider MD Start: 08-21-2010 End: 08-25-2010 Assay of thyroid stimulating hormone tsh Kwaku Haider MD Start: 08-21-2010 End: 08-25-2010 Free assay (FT-3) Kwaku Haider MD Start: 08-21-2010 End: 08-25-2010 Thyroid stimulating hormone (TSH) Kwaku Haider MD Start: 08-13-2010 End: 08-14-2010 Follow Up Appt 1 month Kwaku Haider MD Start: 08-13-2010 End: 08-19-2010 Manual cell count, each Kwaku Haider MD Start: 07-29-2010 End: 11-22-2011 EMG Kwaku Haider MD Start: 07-29-2010 End: 08-14-2010 Nerve Conduction Kwaku Haider MD Start: 07-27-2010 End: 07-28-2010 Assay thyroid stim hormone Kwaku Haider MD Start: 07-27-2010 End: 07-28-2010 Complete cbc, automated Kwaku Haider MD Start: 07-27-2010 End: 07-28-2010 Comprehen metabolic panel Kwaku Greene Start: 07-27-2010 End: 08-14-2010 Follow Up Appt 2 weeks Kwaku Haider MD Start: 07-27-2010 End: 07-28-2010 Lipid panel Kwaku Haider MD Start: 07-27-2010 End: 08-14-2010 Urinalysis, nonauto w/scope Kwaku Haider MD Plan of Treatment Date Care Activity Detail Author Start: 05-03-2026 DIABETES SCREEN DIABETES SCREEN [facility] Start: 05-30-2024 BP CONTROLLED (<130/80) BP CON TROLLED (<130/80) [facility] Start: 05-03-2024 SERUM CREATININE SERUM CREATININE Cl [facility] Start: 03-23-2024 BP CONTROLLED (<130/80) BP CON TROLLED (<130/80) [facility] Start: 03-09-2024 BP CONTROLLED (<130/80) BP CON TROLLED (<130/80) [facility] Start: 02-04-2024 BP CONTROLLED (<130/80) BP CON TROLLED (<130/80) [facility] Start: 06-10-2023 Influenza vaccination INFLUENZA (#1) [facility] Start: 02-08-2023 End: 04-10-2023 Cancer Ag 19-9 [Units/volume] in Serum or Plasma [facility] Work Phone: Immunizations Immunization Date Immunization Notes Care Provider Luis dietrich 07-12-2022 COVID-19 (Moderna) L ow Dose Booster SPARKLE RODRIGUEZ Other [facility] [employer]. Other 07-12-2022 influenza, injectabl e, quadrivalent, contains preservative SPARKLE FISTEK Other [facility] Other 07-28-2021 COVID-19 (Moderna) 3 ANAID BE N-ALISTAIR Other [facility] Other 06-23-2021 influenza, injectabl e, quadrivalent, contains preservative ANAID RUY-ALISTAIR Other [facility] Other 01-17-2021 COVID-19 (Pfizer) 2 (purple) ANAID RUY-ALISTAIR Other [facility] Other 12-25-2020 COVID-19 (Pfizer) 1 (purple) ANAID RUY-ALISTAIR Other [facility] Other 08-24-2016 influenza, seasonal, injectable Us 1 Work Phone: [facility] Work Phone: 08-24-2016 pneumococcal conjuga te vaccine, 13 valent Us 1 Work Phone: [facility] Work Phone: 02-20-2014 tetanus toxoid, reduced diphtheria toxoid, and acellular pertussis vaccine, adsorbed ANAID RUY-ALISTAIR Other [facility] Other 10-23-2012 influenza virus vaccine, unspecified formulation Us 1 Work Phone: [facility] Work Phone: 10-23-2012 tetanus toxoid, reduced diphtheria toxoid, and acellular pertussis vaccine, adsorbed Us 1 Work Phone: [facility] Work Phone: Payers Date Payer Category Payer Medicaid [id number] 2018 Medicaid [employer] [facility] [place] [id number] 2018-Present [phone] [address] [place] [address] Medicaid [id number] 2011 Medicaid [id number] 1977 Unknown [id number] 1977 Unknown [id number] 1977 Unknown [id number] 1977 Unknown [id number] 1977 Unknown [id number] Medicaid [id number] Social History Date Type Detail Facility Start: 02-02-2022 End: 05-26-2023 Tobacco smoking status MTIS Never smoked tobacco [facility] Work Phone: Start: 09-01-2020 End: 05-30-2023 Alcohol intake Current non-drinker of alcohol (finding) [facility] Start: 1975 Sex Assigned At Not on file [facility] Start: 01-09-2022 End: 01-19-2022 Exposure to SARS-CoV-2 (event) Not sure [facility] Start: 03-09-2023 End: 04-25-2023 Sex Assigned At [facility] [place] Start: 01-13-2023 Tobacco use and exposure Smokeless tobacco non-user [facility] Start: 03-09-2023 End: 04-25-2023 History of Social function [facility] National Score (1-100), lower number is lower risk 86 [facility] Medical Equipment Procedure Code Equipment Code Equipment Origin al Text Equipment Identifier Dates LAPAROSCOPIC SIMONA EN Y GASTRIC BYPASS STAPLE, IMPLANTABLE (GDW) LAPAROSCOPIC SIMONA EN Y GASTRIC BYPASS ()[id number] FDA Start: 09-20-2022 End: 09-20-2022 Clinical Notes 05-13-2015 to 05-30-2023 Sylvia Ayala DO - 05/30/2023 1:00 PM EDT Note Date & Type Note Facility 05-30-2023 Note HNO ID: [id number] Author: Sylvia Ayala DO Service: ? Author Type: Physician Type: Progress Notes Filed: 05/30/2023 1:22 PM Note Text: [facility] SECTION FOR MINIMALLY INVASIVE GYNECOLOGIC SURGERY OUTPATIENT VISIT DATE 05/30/2023 OUTPATIENT VISIT TYPE POST OPERATIVE FOLLOW UP History: Rmoain Mendoza is a 47 year old female here for post operative follow up appointment. Denies nausea/vomiting/chest pain/shortness of breath. Ambulating well. No issues with voiding or BMs. On estrogen patch - one hot flash ROS: Constitutional: Denies fever or chills GI: Denies abdominal pain, nausea, vomiting, bloody stools or diarrhea : Denies dysuria Integument: Denies rash Psychiatric: Denies depression or anxiety Exam: Vitals: 05/30/23 1300 BP: 117/76 @HTWT@ There is no height or weight on file to calculate BMI. Neuro/psych: Alert and oriented x 3 in a pleasant mood Skin: Warm, dry and intact Abdomen: Soft, non tender, non distended, no hepatosplenomegaly or hernias. Incision: c/d/I Assessment: Ms. Romain Mendoza is a 47 year old female presenting for postop check Pathology discussed and surgical details reviewed. Plan: -May continue to increase physical activity as tolerated -May resume intercourse -Refrain from heavy lifting for 4 weeks postop -Follow up with general provider for annual care -All questions answered and pt agrees with plan Sylvia Ayala DO [facility] 05-30-2023 History of Present illness Narrative Images from the original note were not included. [facility] SECTION FOR MINIMALLY INVASIVE GYNECOLOGIC SURGERY OUTPATIENT VISIT DATE 05/30/2023 OUTPATIENT VISIT TYPE POST OPERATIVE FOLLOW UP History: Romain Mendoza is a 47 year old female here for post operative follow up appointment. Denies nausea/vomiting/chest pain/shortness of breath. Ambulating well. No issues with voiding or BMs. On estrogen patch - one hot flash ROS: Constitutional: Denies fever or chills GI: Denies abdominal pain, nausea, vomiting, bloody stools or diarrhea : Denies dysuria Integument: Denies rash Psychiatric: Denies depression or anxiety Exam: Vitals: 05/30/23 1300 BP: 117/76 @HTWT@ There is no height or weight on file to calculate BMI. Neuro/psych: Alert and oriented x 3 in a pleasant mood Skin: Warm, dry and intact Abdomen: Soft, non tender, non distended, no hepatosplenomegaly or hernias. Incision: c/d/I Assessment: Ms. Romain Mendoza is a 47 year old female presenting for postop check Pathology discussed and surgical details reviewed. Plan: -May continue to increase physical activity as tolerated -May resume intercourse -Refrain from heavy lifting for 4 weeks postop -Follow up with general provider for annual care -All questions answered and pt agrees with plan Sylvia Ayala DO documented in this encounter [facility]. Other 08-03-2023 Miscellaneous Notes* Telephone Encounter - Theresa Mcghee RN - 05/12/2023 11:24 AM EDT Called pt and verified name/. Advised message below. All questions answered at this time. Theresa Mcghee RN May 12, 2023 11:38 AM- Sylvia Ayala DO Urogyn, Cpp, [facility] Nurse Triage Pool 3 minutes ago (11:19 AM) She can start estrogen. I sent the rx to the pharmacy * Telephone Encounter - Gloria Alexander RN - 05/12/2023 9:22 AM EDT Called patient, verified name/. Patient reports that she was told yesterday to hold off on starting estrogen patches but then a script for them was sent to her pharmacy. I advised that per Dr. Newton most recent visit note the plan was to have her start estrogen replacement following surgery but that I would send a message to the team to ensure that nothing has changed. No concerns with pain management, incisions, BM, or urination at this time. KALYANI: 04/25/2023 IMPRESSION: Ms. Mendoza is a 47 year old female Ovarian cyst, pelvic pain: reviewed history, imaging, operative report and labs. Discussed options of management. Discussed this is likely a benign ovarian cyst. Given patient's pain, she desires to proceed with surgical management. We discussed surgical management options. Patient desires to proceed with laparoscopic bilateral salpingo-oophorectomy. Discussed risks of surgery including bleeding,infection and injury to surrounding organs. Surgical consent obtained. Discussed risks of surgical menopause. Will rx estrogen replacement to start after surgery. Patient is s/p LAPAROSCOPY WITH OOPHORECTOMY AND SALPINGECTOMY with Dr. Ayala on 05/06/2023. Routing to [place] pool. Please advise if it is OK for patient to start estrogen patches. Gloria Alexander RN May 12, 2023 9:30 AM * [facility] 05/11/2023 2:52 PM EDT Reason for call: other - Provider name: Dr. Ayala Additional comments: Patient was told she will not need estrogen pills and she was given a prescription for estrogen. Please call and advise the patient. Recommendation: routed to nurse triage pool documented [facility] NoteHNO ID: [id number] Author: Sylvia Ayala DO Service: ? Author Type: Physician Type: Progress Notes Filed: 05/10/2023 12:33 PM Note Text: [facility]08-01-2023 History of Present illness Narrative* Sylvia Ayala DO - 05/10/2023 12:32 PM EDT j documented in this encounterTri[facility] Miscellaneous Notes* Telephone Encounter - Zuleyma Jewell RN - 05/10/2023 9:34 AM EDT Spoke to patient, name and verified. Patient is S/P Procedure: Laparoscopic bilateral salpingo-oophorectomy, lysis of adhesions done 05/06/2023. Gave patient Dr. Colon's message below. Verbalized understanding. Will take Tylenol every 6 hoursas for pain with Oxycodone to break-through discomfort. Will rest as able. Patient instructed to wash around incisions in the shower but do not disrupt surgical glue in place. Instructed that glue will fall off with time. Patient is urinating without problem. She had a BM yesterday. No fever or chills. Taking fluids. Appetite fair. Up walking at home. Patient will keep post op appointment on 05/30. * Telephone Encounter - Zuleyma Jewell RN - 05/10/2023 9:33 AM EDT No need to alternate between tylenol and oxycodone. Continue with tylenol ATC and oxy for breakthrough pain. They can discuss estrogen at her follow up appointment Thank you Sanket Brooklyn DO * Telephone Encounter - Yudith Mccauley RN - 05/09/2023 1:21 PM EDT Situation: postop concerns Background: S/P 05/06/23 Laparoscopic bilateral salpingo-oophorectomy, lysis of adhesions Assessment: 1) Umbilical incision very sore. Incision is covered with silver & white, says Silver on dressing . Boyfriend was told in recovery that pt is NOT to take off silver dressing or scrub incision. Other lap incisions are also covered with dressings. Taking Ex Str Tylenol alternating with Oxycodone. She cannot take Ibuprofen, bariatric surgery. No relief with Tylenol, & only little relief with Oxycodone. No BM yet, passing gas, taking Colace BID. No fever, chills, n/v. 2) Pt thought she was to be sent home with rx for Estrogen, none ordered. [facility] pharmacy preferred if appropriate. Advised will forward to [place] Pool Yudith Mccauley RN * Telephone Encounter - Loan Foster - 05/09/2023 12:15 PM EDT Reason for call: postop concern/postop fever/problems with incision (if within 6 weeks of surgery, route to nurse pool as high priority) Provider name: Dr. Ayala Additional comments: Patient had surgery with Dr. Ayala on 05/06. Patient asking to speak with a nurse regarding her pain. Also has questions regarding estrogen therapy. Please advise: [phone] Recommendation: routed to nurse triage pool Loan Bell documented in [facility] encounter[facility] Miscellaneous Notes* Telephone Encounter - Yudith Mccauley RN - 05/09/2023 1:43 PM EDT Duplicate encounter - see today's 05/09/23 TE Closing chart. Yudith L Varnis RN documented in this encounterTrihealth [facility]07-28-2023 NoteHNO ID: [id number] Author: Shannan Emerson, CYNDI Service: ? Author Type: Registered Nurse Type: Nursing Progress Note Filed: 05/06/2023 4:38 PM Note Text: 1630 Pt able to void. Preparing for discharge.[id number] NoteHNO ID: [id number] Author: Rylan Valdez APRN.CRNA Service: Anesthesiology Author Type: Nurse Support Team Member Type: Anesthesia Procedure Notes Filed: 05/06/2023 12:33 PM Note Text: ANESTHESIOLOGY PROCEDURE NOTE Airway General Information Procedure Start Time/Medication Administration: 05/06/2023 12:27 PM Patient location during procedure: OR Timeout Performed Pre-procedure: timeout performed Consent Obtained: Yes Patient identity confirmed: arm band, patient and family Staffing MANAGER CLEANING: Rylan Valdez APRN.MANAGER CLEANING Performed by: SRINIVAS Indications and Patient Condition Indications for airway management: anesthesia Preoxygenated: yes anesthesia circuit Method: asleep Cricoid Pressure: No Difficult Mask: No Final Airway Details Final airway type: endotracheal airway Final Endotracheal Airway: ETT Successful intubation technique: direct laryngoscopy Endotracheal tube insertion site: oral Blade: Phani Blade size: #4 ETT size (mm): 7.0 Measured from: lips Measurement (cm): 21 Placement verified by: chest auscultation and capnometry Cormack-Lehane Classification: grade I - full view of glottis Number of attempts at approach: 1 SIGNATURE: Rylan Valdez APRN.MANAGER CLEANING PATIENT NAME: Romain Mendoza DATE: May 06, 2023 TIME: 12:30 PM CSN: [id number] NoteHNO ID: [id number] Author: Liset Lamb RN Service: ? Author Type: Registered Nurse Type: Progress Notes Filed: 04/29/2023 9:19 AM Note Text: DATE OF SERVICE: 04/29/2023 PROBLEM: Romain Mendoza presents for pre-op teaching. PRE-OP DIAGNOSIS: Pelvic pain in female SCHEDULED SURGERY AND DATE: 05/06/23 laparoscopic bilateral salpingo-oophorectomy. PRIMARY SURGEON: Sylvia Ayala DO NURSING PREOP ASSESSMENT: Fevers, chills, cough, or nasal congestion: No Vaginal itching, burning, discharge, or odor: No Pain with urination, frequency, urgency, cloudy or foul smelling urine: No If yes to any of the above then MD notified: Not Applicable ADVANCED CARE PLANNING: Does the patient have an advanced directive: No Does [facility] have a copy of the patient's advanced directive: No Was advanced directive given to the patient: No PATIENT LEARNING ASSESSMENT: Individual patient/family learning needs evaluated and addressed: Yes Cognitive ability: Alert and oriented Motivation to learn: Eager Factors affecting learning: None Physical limitations affecting learning: None Patient learns best by: Multiple Methods Method of instruction: Teach Back , Verbal Instruction Individual instruction Written instruction - handouts Instructions provided to: Patient via telephone. Written material provided prior to education appointment. Family support: Unable to assess - Family not present PRE- AND POST-OPERATIVE TEACHING, Pre-operative teaching and supplemental material provided and reviewed with patient: Written pre-op and post-op instructions Antibacterial soap: given to patient prior to preop teaching appointment Pre-operative instructions provided and reviewed with patient/family: No eating, drinking, or smoking after midnight prior to surgery unless otherwise directed No alcohol the day before surgery Medications as prescribed by anesthesia, internal medicine, surgeon, or WIRE ANNEALER Stop NSAIDs, Aspirin (ASA), vitamins, herbal supplements, herbal teas, and diet pills 7-10 days prior to surgery OK to take tylenol prn pain unless otherwise directed by physician Call surgery coordinators if any other questions about surgery date or pre-op appointments Bowel prep instructions: NPO after midnight Day of surgery instructions provided and reviewed with patient/family: Arrival time (call surgical coordinators on the office day prior to surgery for verification) No jewelry, body piercing, makeup, contacts, lotions, nail albanian on fingers, or anything in hair on arrival to surgery Wear low healed shoes and loose fitting clothing Leave all valuables at home or with a family member [facility] Park[facility]/parking validation on the day prior to surgery Admission/check in (Report to Entrance A for surgery) Holding area Placement of IV Surgical positioning Family waiting area Surgical recovery room Post-operative instructions provided and reviewed with patient/family: SEE PATIENT INSTRUCTION SECTION FOR DETAILS. ACTIVITY - No heavy lifting (>5-10 lbs), no pushing/pulling, OK to climb stairs DRIVING - No driving for 1 weeks unless prior approval from MD, OK to ride in a car. DIET - Advance diet as tolerated and as ordered by MD, drink 8 glasses of water a day, eat a diet high in protein and fiber unless otherwise directed by MD. INCISION CARE - Keep incision clean and dry, neil to be removed 7-10 days after surgery, steristrips do not need to be removed by MD BATHING - OK to shower after surgery unless otherwise directed by MD, no tub baths. PAIN MEDICATION - IV pain medication after surgery, IV ASSISTANT PROFESSOR OF COMMUNICATION if ordered by MD, discharged home with a prescription for PO pain medication, pain management after surgery, side effects of pain medication (including constipation, dizziness, drowsiness, and medication interactions). VAGINAL CARE - Pelvic rest x2 weeks unless otherwise directed by MD. DVT PROPHYLAXIS - Early ambulation, SCDs, injectable anticoagulants (heparin, lovenox, etc) RESPIRATORY - Incentive spirometer, coughing/deep breathing exercises, ambulation. SYMPTOMS TO NOTIFY MD - Fever, chills, nausea, vomiting, increased or severe pain, heavy vaginal bleeding, foul smelling vaginal drainage, pain or swelling in extremities. URGENT SYMPTOMS - Call 911 or go to ER if any shortness of breath, difficulty breathing, or chest pain. HOW TO CONTACT PHYSICIAN - Physician's office phone number given to patient, if after hours patient instructed to call systems operator and ask for command and control machinery erector resident. NANDINI program offered to patient: No Additional teaching as indicated by patient/family learning needs. PATIENT LEARNING EVALUATION AND FOLLOW UP PLAN: Patient and/or family express understanding of upcoming surgery, pre-operative preparation, the operative process, and post-operative instructions. Follow up plan: Complete - No n (more content not included)...[facility]07-17-2023 NoteHNO ID: [id number] Author: Sylvia Ayala, DO Service: ? Author Type: Physician Type: Progress Notes Filed: 04/25/2023 12:31 PM Note Text: [facility] SECTION FOR MINIMALLY INVASIVE GYNECOLOGIC SURGERY OUTPATIENT VISIT DATE 04/25/2023 OUTPATIENT VISIT TYPE NEW PRIMARY CARE PHYSICIAN: Carlos Chris MD [address] [address] REFERRING PHYSICIAN: Gudelia Mi Consultation requested by Dr. Mi for an opinion regarding Romain Mendoza, and my final recommendations will be communicated back to the requesting physician by way of shared medical record or letter via US mail. CHIEF COMPLAINT: Pelvic pain, ovarian cyst HISTORY OF PRESENT ILLNESS: Romain Mendoza is a pleasant 47 year old x 2, C/S x3 female who presents for evaluation of pelvic pain, ovarian cyst. Pelvic pain: bilateral Aching For a while Worse: hurts to have IC Better: nothing Have tried: Hx of bariatric surgery Ovarian cyst Hx of hysterectomy - WOJCIECH - 13 years ago Had heavy bleeding Right Ovary Rt ovary: Visualized Rt ovary D1 43 mm Rt ovary D2 27 mm Rt ovary D3 14 mm Rt ovary Vol 8.6 cm? Left Ovary Lt ovary: Visualized Lt ovary D1 60 mm Lt ovary D2 46 mm Lt ovary D3 47 mm Lt ovary Vol 67.8 cm? Lt ovarian cyst D1 56 mm Lt ovarian cyst D2 44 mm Lt ovarian cyst D3 39 mm Lt ovarian cyst mean 46.3 mm Lt ovarian cyst vol 50.316 cm? Lt ovarian cyst findings: Cyst with septations and an internal hyperechoic [id number] area 03/17/23: diagnostic laparoscopy Patient underwent diagnostic laparoscopy at [facility] on 03/17/2023 for left ovarian cyst and pelvic pain. The left ovary and tube were adhered at the pelvic brim densely. There are extensive omental adhesions. I was unable to visualize the cuff or the right ovary/tube. I was unable to complete the surgery laparoscopically and ended the surgery. Recommend consult w/ MIGS to consider surgical removal. Gudelia Mi MD [facility] hx: grandma (mom side) uterine Grandma (dad side) ovarian cancer Surghx: WOJCIECH, C/S x 3, bariatric surgery, diagnostic laparoscopy, right toe surgery Past Gynecologic History: Oven Tender Bagels History LMP: 03/12/2011, Hysterectomy Age at Menarche: Age at First : Age at Menopause: O[employer] History Comments: Sexual Activity: Yes; Male; hysterectomy Contraception: Surgical Past Obstetrical History: OB History T5 L5 SAB0 IAB0 Ectopic0 Multiple0 Live Births5 Past Medical History: PAST MEDICAL HISTORY Diagnosis Date Asthma 03/2016 + VICKIE at [facility]. Depressive disorder, not elsewhere classified Encounter for insertion or removal of intrauterine contraceptive device 07/17/2007 Mirena, Removed 10/23/2007 Migraine, unspecified, with intractable migraine, so stated, without mention of status migrainosus Migraine Obesity (BMI 30-39.9) Placenta previa without hemorrhage, antepartum 08/26/2008 Seasonal allergic rhinitis 03/2016 No allergy testing. 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 Unspecified essential hypertension Viral pneumonia, unspecified 2000 Pneumonia Past Surgical History: PAST SURGICAL HISTORY Procedure Laterality Date APPENDECTOMY 01/2019 DELIVERY ONLY 2005, 2006, 2008 , low cervical X3 GASTRIC BYPASS HX 09/20/2022 Reun Y IUD INSERTION (PURCHASING ADMINISTRATIVE ASSISTANT DEPT)_*FL 07/17/2007 Mirena IUD REMOVAL (PURCHASING ADMINISTRATIVE ASSISTANT DEPT)_*FL 10/23/2007 Mirena L'SCOPE DX W/WO BRUSHINGS/WASHINGS 03/17/2023 LIG/TRNSXJ FLP TUBE ABDL/VAG APPR UNI/BI 2009 Tubal ligation PAST SURGICAL HISTORY OF 1986 Eye surgery TOTAL ABDOMINAL HYSTERECT W/WO RMVL TUBE OVARY 04/22/2011 WOJCIECH Family History: FAMILY HISTORY Problem Relation Age of Onset Hypertension Mother Breast Cancer Mother Diabetes Father Stroke Father Cancer Maternal Grandmother UTERINE CANCER COPD Maternal Grandmother Emphysema Social History: Social History Tobacco Use Smoking status: Never Smokeless tobacco: Never Vaping Use Vaping Use: Never used Substance Use Topics Alcohol use: No Drug use: No Current Outpatient Medications Medication Sig rosuvastatin (CRESTOR) 40 mg tablet allopurinol (ZYLOPRIM) 100 mg tablet PARoxetine (PAXIL) 40 mg tablet TIROSINT 175 mcg cap MULTIVITAMIN ORAL Take by mouth. Flinstone chewables CALCIUM ORAL Take by mouth. ALPRAZolam (XANAX) 0.25 mg tablet Take 1 tablet by mouth once daily as needed for Anxiety. albuterol HFA (VENTOLIN HFA) 90 mcg/actuation inhaler Inhale 2 Puffs as instructed every 4 hours as needed for Wheezing/Shortness of Breath. POTASSIUM ORAL Take by mouth. (Patient not taking: Reported on 04/25/2023) cyanocobalamin/folic acid (VITAMIN Q43-HUGBY ACID) 1,000-400 mcg lozg Dissolve under the tongue. citalopram (CELEXA) 20 mg tablet 20 mg. (Patient not taking: No sig reported) ibupr (more content not included)...[facility]07-17-2023 Instructions* Patient Instructions* Roseanna DO Sylvia - 04/25/2023 12:30 PM EDT Images from the original note were not included. Please visit the following website for the [facility] surgery guide. [email or web address]- guide MINIMALLY INVASIVE GYNECOLOGIC SURGERY (MIGS)/BENIGN GYNECOLOGY CONTACTS: Surgeons: Dr. Sylvia Ayala Dr. Lor Rodrigez Dr. Shellie Ventura Dr. Juliana Mendieta Dr. Barry Dhaliwal Dr. Meghan Gale [place]: Dr. Mya Garzon [phone] Dr. Denzel Colon [phone] Dr. Samantha Mclaughlin [phone] Nurse Practitioners: Kaur Corley, FARM MACHINERY ERECTOR.MAINTENANCE WELDER Arianne Blanco FARM MACHINERY ERECTOR.MAINTENANCE WELDER Amanda Marquez FARM MACHINERY ERECTOR.MAINTENANCE WELDER Jessie Carballo, FARM MACHINERY ERECTOR.MAINTENANCE WELDER Janeth Lugo APRN, MAINTENANCE WELDER Surgery Scheduling Office: Call the day before surgery after 2pm for your surgery arrival time After hours phone number: or toll free Ask the systems operator to page the machinery erector command and control.' Business hours are Tuesday - Tuesday from 8:00am - 4:30pm. We are closed on weekends and major holidays. Surgery Locations: [address] [place] [phone] [facility] [address] [place], [place] [address] [facility] [address] [place], [place] [address] MINIMALLY INVASIVE LAPAROSCOPY POSTOPERATIVE INSTRUCTIONS ACTIVITY * No heavy lifting/pushing/pulling for 4-6 weeks. Do not lift anything more than 10 lbs (such as laundry, groceries, children, pets), vacuum, push heavy doors or grocery carts, etc, for 4-6 weeks. * You may climb stairs as tolerated. * Do not put anything in the vagina for 2 weeks after surgery unless otherwise instructed by your doctor (including tampons, douching, sexual intercourse, etc). * No driving for 1 week after surgery and not while taking narcotic pain medication. Drive defensively when you are ready. * Avoid sitting or lying in bed for more than 2 hours at a time while you are awake to reduce your risk of blood clots. * You may return to work when you are ready as long as you do not lift more than 10 pounds for 4-6 weeks. If you have a sedentary job or youth worker 1-2 weeks before returning to work is appropriate. You may return to work in 2-4 weeks if your job requires a lot of movement. Please contact your doctor if you need any return to work letters or medical leave paperwork to be completed. WOUND CARE * You will have small incisions on your abdomen. There will be dissolvable stitches under your skinthat do not need to be removed. If you have a piece of gauze with a clear bandage over your belly button, please remove that the day after surgery when you shower. If you have steri-strips (paper tape) on the incisions, these may be removed in about 1-2 weeks. It is OK to remove them if they are falling off. If skin glue is present, leave in place for at least 2 weeks. * Shower daily after surgery. Clean your incision with mild antibacterial soap and water. Pat your incision dry with a clean towel. No tub baths or swimming pools for 2-4 weeks or until wound is completely healed. * No ointments or antibacterial creams are required for incisions. Do NOT use cleansing agents likealcohol or hydrogen peroxide. * Wash your hands frequently, especially before touching your incision or changing any dressings. PAIN MANAGEMENT * Take your oral pain medication as needed. * Alternate Tylenol and ibuprofen/Motrin (if you are eligible). Each of these medications can be taken every six hours. Try to stagger them so that you are taking something for pain every three hours(ex. Take Motrin at 12:00, Tylenol at 3:00, Motrin at 6:00, etc.) to maximize pain relief. You should be taking 600mg of ibuprofen every 6 hours. You should be taking 650mg of tylenol every 6 hours. You should take every 6 hours with staggering and alternating. For example. 9am - ibuprofen 12pm - tylenol 3pm - ibuprofen 6pm - tylenol 9pm - ibuprofen 12am - tylenol 3am - ibuprofen 6am - tylenol Studies show this is as effective as narcotics for pain control without the side effects. * The maximum dose of Tylenol is 3000 mg in 24 hours, the maximum dose of Motrin/ibuprofen is 2400mg in 24 hours * Some pain medications can cause constipation. We recommend a stool softener (i.e. Colace) while you take these medications. * You may also take milk of magnesia or Miralax for constipation as directed on the bottle. * There is a risk for addiction with narcotic pain medication, so take with caution and do not takemore than the recommended amount. * Please be sure to dispose of leftover pain medication after you have recovered. You may dispose of unused narcotic medications in the trash with an unpleasant substance such as coffee grounds or cat litter or you can turn them in to a designated law enforcement/pharmacy narcotic box. You can alsocheck FDA.gov to assess which medications can be safely flushed down the toilet. * There are locations to dispose of unused medications at three [facility] locations: [facility] pharmacy, [facility] pharmacy, and the Pharmacy at the Main [place] for [facility] (inside the parking garage on the first floor). WHAT TO EXPECT AT HOME * Recovery from surgery is generally 2-4 weeks, but sometimes longer for more strenuous activity. It is normal to be very tired during this time. * It is normal to have some drainage or a small amount of vaginal bleeding after surgery that wouldrequire the use of a light pantiliner. This discharge may last up to 6 weeks. The bleeding and discharge should be light and should have no odor. * You may experience gas pain, abdominal swelling, or shoulder pain for 24-72 hours after surgery. This is from the carbon dioxide gas put into your abdomen to better visualize your organs. A warm shower, heating pad, and/or walking may help. WHEN TO CALL YOUR DOCTOR: * Fever (>100.4 F or 38.0 C) or chills. * Incision problems such as redness, warmth, swelling, or foul smelling drainage. * Severe nausea or persistent vomiting. * Bright red vaginal bleeding (soaking >1 pad/hour) or foul smelling vaginal drainage. * IT IS NORMAL TO HAVE A MINIMAL AMOUNT OF VAGINAL SPOTTING OR VAGINAL DISCHARGE FOR SEVERAL WEEKS * Severe pain not relieved with pain medication. * Pain and swelling in your legs, especially if it is only on one side. * Pain with urination, cloudy urine, or foul smelling urine. * Severe redness/irritation at sites where adhesive bandages were applied. * Or if you have any other problems or questions. FREQUENTLY ASKED QUESTIONS/CONCERNS: Constipation Constipation is common and it is normal to not have a bowel movement for up to one week after surgery. You should still be passing gas despite constipation and should be able to tolerate both liquid and solid food without nausea or vomiting. Concerning symptoms would be constipation without gas, with fever, or nausea/vomiting and inabilityto eat. Call your doctor if these symptoms occur. Over the counter stool softeners including Senna twice daily and Miralax up to twice daily can helpwith constipation. 1. Senna (1 capsule) two times a day 2. Miralax (polyethylene glycol) 17 g (1 measured capful or 1 packet) once a day. If you have not had a bowel movement 3 days after surgery, you may take the Miralax two times a day. If you have any discomfort because of the need to have a bowel movement, you may add milk of magnesia or magnesium citrate (available at your local pharmacy without a prescription) at any time. Do not take milk of magnesia or magnesium citrate if you have kidney failure. If you have loose or watery stools, stop taking the medications. Call your doctor s office if you have questions. Drainage from incisions Clear/pink drainage or a minimal amount of bleeding from incisions can be normal after laparoscopicsurgery. Concerning drainage that is persistent, thick/cloudy, or foul smelling can be an indication of infection and should prompt you to call your doctor. Post-operative pain Pain after surgery is a challenging part of the healing process. Pain may be present for weeks but should gradually get better. Increasing pain or pain that is unbearable warrants evaluation by your doctor or in the emergency department. By state law we cannot immediately provide narcotic pain medication over the phone. Stitches If 2 weeks have passed and you have a visible stitch at a laparoscopic incision site it is OK for you to cut it to remove it. CALL 911 OR GO TO THE EMERGENCY ROOM IF YOU HAVE: Any shortness of breath, difficulty breathing, orchest pain. IF YOU FEEL YOU NEED TO GO TO THE EMERGENCY DEPARTMENT POST OPERATIVELY, WE RECOMMEND THE MAIN PENDER EMERGENCY DEPARTMENT FOR CONTINUITY OF CARE AND THE BEST ACCESS TO ONE OF THE SURGEONS ON OUR TEAM. Address: [address] [place] [address] documented in this encounterTri[facility] History of Present illness Narrative* Sylvia Ayala DO - 04/25/2023 10:30 AM EDT Images from the original note were not included. [facility] [place] SECTION FOR MINIMALLY INVASIVE GYNECOLOGIC SURGERY OUTPATIENT VISIT DATE 04/25/2023 OUTPATIENT VISIT TYPE NEW PRIMARY CARE PHYSICIAN: Carlos Chris MD [address] [address] REFERRING PHYSICIAN: Gudelia Mi Consultation requested by Dr. Mi for an opinion regarding Romain Mendoza, and my final recommendations will be communicated back to the requesting physician by way of shared medical record or letter via US mail. CHIEF COMPLAINT: Pelvic pain, ovarian cyst HISTORY OF PRESENT ILLNESS: Romain Mendoza is a pleasant 47 year old x 2, C/S x3 female who presents for evaluation of pelvic pain, ovarian cyst. Pelvic pain: bilateral Aching For a while Worse: hurts to have IC Better: nothing Have tried: Hx of bariatric surgery Ovarian cyst Hx of hysterectomy - WOJCIECH - 13 years ago Had heavy bleeding Right Ovary Rt ovary: Visualized Rt ovary D1 43 mm Rt ovary D2 27 mm Rt ovary D3 14 mm Rt ovary Vol 8.6 cm Left Ovary Lt ovary: Visualized Lt ovary D1 60 mm Lt ovary D2 46 mm Lt ovary D3 47 mm Lt ovary Vol 67.8 cm Lt ovarian cyst D1 56 mm Lt ovarian cyst D2 44 mm Lt ovarian cyst D3 39 mm Lt ovarian cyst mean 46.3 mm Lt ovarian cyst vol 50.316 cm Lt ovarian cyst findings: Cyst with septations and an internal hyperechoic [id number] area 03/17/23: diagnostic laparoscopy Patient underwent diagnostic laparoscopy at [facility] on 03/17/2023 for left ovarian cyst and pelvic pain. The left ovary and tube were adhered at the pelvic brim densely. There are extensive omental adhesions. I was unable to visualize the cuff or the right ovary/tube. I was unable to complete the surgery laparoscopically and ended the surgery. Recommend consult w/ MIGS to consider surgical removal. Gudelia Mi MD Fam hx: grandma (mom side) uterine Grandma (dad side) ovarian cancer Surghx: WOJCIECH, C/S x 3, bariatric surgery, diagnostic laparoscopy, right toe surgery Past Gynecologic History: Oven Tender Bagels History LMP: 03/12/2011, Hysterectomy Age at Menarche: Age at First : Age at Menopause: O[employer] Bagels History Comments: Sexual Activity: Yes; Male; hysterectomy Contraception: Surgical Past Obstetrical History: OB History T5 L5 SAB0 IAB0 Ectopic0 Multiple0 Live Births5 Past Medical History: PAST MEDICAL HISTORY Diagnosis Date Asthma 03/2016 + VICKIE at [facility]. Depressive disorder, not elsewhere classified Encounter for insertion or removal of intrauterine contraceptive device 07/17/2007 Mirena, Removed 10/23/2007 Migraine, unspecified, with intractable migraine, so stated, without mention of status migrainosus Migraine Obesity (BMI 30-39.9) Placenta previa without hemorrhage, antepartum 08/26/2008 Seasonal allergic rhinitis 03/2016 No allergy testing. 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 Unspecified essential hypertension Viral pneumonia, unspecified 2000 Pneumonia Past Surgical History: PAST SURGICAL HISTORY Procedure Laterality Date APPENDECTOMY 01/2019 DELIVERY ONLY 2006, 2007, 2009 , low cervical X3 GASTRIC BYPASS HX 09/20/2022 Reun Y IUD INSERTION (PURCHASING ADMINISTRATIVE ASSISTANT DEPT)_*FL 07/17/2007 Mirena IUD REMOVAL (PURCHASING ADMINISTRATIVE ASSISTANT DEPT)_*FL 10/23/2007 Mirena L'SCOPE DX W/WO BRUSHINGS/WASHINGS 03/17/2023 LIG/TRNSXJ FLP TUBE ABDL/VAG APPR UNI/BI 2009 Tubal ligation PAST SURGICAL HISTORY OF 1986 Eye surgery TOTAL ABDOMINAL HYSTERECT W/WO RMVL TUBE OVARY 04/22/2011 WOJCIECH Family History: FAMILY HISTORY Problem Relation Age of Onset Hypertension Mother Breast Cancer Mother Diabetes Father Stroke Father Cancer Maternal Grandmother UTERINE CANCER COPD Maternal Grandmother Emphysema Social History: Social History Tobacco Use Smoking status: Never Smokeless tobacco: Never Vaping Use Vaping Use: Never used Substance Use Topics Alcohol use: No Drug use: No Current Outpatient Medications Medication Sig rosuvastatin (CRESTOR) 40 mg tablet allopurinol (ZYLOPRIM) 100 mg tablet PARoxetine (PAXIL) 40 mg tablet TIROSINT 175 mcg cap MULTIVITAMIN ORAL Take by mouth. Flinstone chewables CALCIUM ORAL Take by mouth. ALPRAZolam (XANAX) 0.25 mg tablet Take 1 tablet by mouth once daily as needed for Anxiety. albuterol HFA (VENTOLIN HFA) 90 mcg/actuation inhaler Inhale 2 Puffs as instructed every 4 hours asneeded for Wheezing/Shortness of Breath. POTASSIUM ORAL Take by mouth. (Patient not taking: Reported on 04/25/2023) cyanocobalamin/folic acid (VITAMIN J88-SSKHA ACID) 1,000-400 mcg lozg Dissolve under the tongue. citalopram (CELEXA) 20 mg tablet 20 mg. (Patient not taking: No sig reported) ibuprofen (MOTRIN) 800 mg tablet (Patient not taking: No sig reported) Hydrochlorothiazide 12.5 mg capsule Take 1 capsule by mouth once daily. (Patient not taking: Reported on 04/25/2023) No current facility-administered medications for this visit. Allergies As of Date: 04/25/2023 Allergen Noted Reaction CITALOPRAM 01/22/2013 GI Upset CODEINE 02/24/2013 Other: See Comments LITHIUM 12/10/2015 GI Upset NSAIDS (NON-STEROIDAL ANTI-INFLAM*01/13/2023 Other: See Comments Fully Assessed 04/25/2023 REVIEW OF SYSTEMS: POSITIVES IN BOLD Constitutional: Denies fever or chills GI: Denies abdominal pain, nausea, vomiting, bloody stools or diarrhea : Denies dysuria Psychiatric: Denies depression or anxiety PHYSICAL EXAMINATION: Vital Signs: 04/25/23 1008 BP: 121/83 Pulse: 70 There is no height or weight on file to calculate BMI. General appearance: Well appearing, alert, in no acute distress, well-hydrated, well nourished. Skin: Skin color, texture, turgor normal, no suspicious rashes or lesions Abdomen: Normal abdominal exam, Abdomen soft, non-tender. Bowel sounds normal. No masses, organomegaly see below IMPRESSION: Ms. Mendoza is a 47 year old female Ovarian cyst, pelvic pain: reviewed history, imaging, operative report and labs. Discussed options of management. Discussed this is likely a benign ovarian cyst. Given patient's pain, she desires to proceed with surgical management. We discussed surgical management options. Patient desires to proceed with laparoscopic bilateral salpingo-oophorectomy. Discussed risks of surgery including bleeding,infection and injury to surrounding organs. Surgical consent obtained. Discussed risks of surgical menopause. Will rx estrogen replacement to start after surgery. Written and verbal health teaching given to patient, patient verbalizes understanding and agrees with treatment plan. Sylvia Ayala DO documented in this encounterTri[facility] Miscellaneous Notes* Telephone Encounter - Erinn Elias RN - 03/24/2023 8:27 AM EDT Appointments for Next 60 Days Date Time Provider Location Dept Phone 04/25/2023 10:30 AM SYLVIA AYALA [facility] [phone] * Telephone Encounter - Erinn Elias RN - 03/24/2023 8:26 AM EDT ----- Message from Tami Melissa RN sent at 03/23/2023 3:38 PM EDT ----- Regarding: Consult Patient calls in to [employer] voicemail. She was referred to Dr. Ayala for MIGS, by Dr. Gudelia Mi at [facility]. There is a consult order in her chart. Anu [facility] nurses are both out this week. Thanks! Tami Melissa, RN documented in this encounterTrihealth [facility]06-14-2023 NoteHNO ID: [id number] Author: Gudelia Mi MD Service: ? Author Type: Physician Type: Progress Notes Filed: 03/23/2023 9:23 AM Note Text: DATE OF SERVICE: 03/23/2023 PROBLEM: Romain Mendoza presents for postop visit. SURGERY AND DATE: 03/17/2023 diagnostic laparscopy PATHOLOGY: n/a SUBJECTIVE/INTERVAL HISTORY: Romain Mendoza reports that she feels well. No fever or chills. No shortness of breath, cough, or chest pain. Pain improved. No N/V. Normal BM and urination OBJECTIVE: ABDOMEN: Abdomen soft, non-tender, no hepatosplenomegaly. Incisions healing well. ASSESSMENT: left ovarian cyst, pelvic pain, extensive adhesion PLAN: consult w/ MIGs. reviewed findings Gudelia Mi [facility]06-14-2023 History of Present illness Narrative* Gudelia Mi MD - 03/23/2023 8:44 AM EDT DATE OF SERVICE: 03/23/2023 PROBLEM: Romain Mendoza presents for postop visit. SURGERY & DATE: 03/17/2023 diagnostic laparscopy PATHOLOGY: n/a SUBJECTIVE/INTERVAL HISTORY: Romain Mendoza reports that she feels well. No fever or chills. No shortness of breath, cough, or chest pain. Pain improved. No N/V. Normal BM and urination OBJECTIVE: ABDOMEN: Abdomen soft, non-tender, no hepatosplenomegaly. Incisions healing well. ASSESSMENT: left ovarian cyst, pelvic pain, extensive adhesion PLAN: consult w/ MIGs. reviewed findings Gudelia Mi MD documented in this encounterTrihealth [facility]06-12-2023 NoteHNO ID: [id number] Author: Gudelia Mi MD Service: ? Author Type: Physician Type: Progress Notes Filed: 03/21/2023 11:45 AM Note Text: Patient underwent diagnostic laparoscopy at [facility] on 03/17/2023 for left ovarian cyst and pelvic pain. The left ovary and tube were adhered at the pelvic brim densely. There are extensive omental adhesions. I was unable to visual ize the cuff or the right ovary/tube. I was unable to complete the surgery laparoscopically and ended the surgery. Recommend consult w/ MIGS to consider surgical removal. Gudelia Mi, [facility]05-31-2023 NoteHNO ID: [id number] Author: Gudelia Mi MD Service: ? Author Type: Physician Type: Progress Notes Filed: 03/09/2023 12:40 PM Note Text: Romain Mendoza is a 47 year old female who presents for problem visit for f/u. HPI: 47-year-old with chronic pelvic pain. Status post hysterectomy many years ago. Had a recent MRI. Continues to have pelvic pain. Here for follow-up and discuss options today. OB History T5 L5 SAB0 IAB0 Ectopic0 Multiple0 Live Births5 [employer] History LMP: 03/12/2011, Hysterectomy Age at Menarche: Age at First : Age at Menopause: [employer] History Comments: Sexual Activity: Yes; Male; hysterectomy Contraception: Surgical PAST MEDICAL HISTORY Diagnosis Date Asthma 03/2016 + VICKIE at [facility]. Depressive disorder, not elsewhere classified Encounter for insertion or removal of intrauterine contraceptive device 07/17/2007 Mirena, Removed 10/23/2007 Migraine, unspecified, with intractable migraine, so stated, without mention of status migrainosus Migraine Obesity (BMI 30-39.9) Placenta previa without hemorrhage, antepartum 08/26/2008 Seasonal allergic rhinitis 03/2016 No allergy testing. 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 Unspecified essential hypertension Viral pneumonia, unspecified 2000 Pneumonia PAST SURGICAL HISTORY Procedure Laterality Date APPENDECTOMY 01/2019 DELIVERY ONLY 2006, 2007, 2009 , low cervical X3 GASTRIC BYPASS HX 09/20/2022 Reun Y IUD INSERTION (PURCHASING ADMINISTRATIVE ASSISTANT DEPT)_*FL 07/17/2007 Mirena IUD REMOVAL (PURCHASING ADMINISTRATIVE ASSISTANT DEPT)_*FL 10/23/2007 Mirena LIG/TRNSXJ FLP TUBE ABDL/VAG APPR UNI/BI 2009 Tubal ligation PAST SURGICAL HISTORY OF 1986 Eye surgery TOTAL ABDOMINAL HYSTERECT W/WO RMVL TUBE OVARY 04/22/2011 [facility] FAMILY HISTORY Problem Relation Age of Onset Hypertension Mother Breast Cancer Mother Diabetes Father Stroke Father Cancer Maternal Grandmother UTERINE CANCER COPD Maternal Grandmother Emphysema Social History Tobacco Use Smoking status: Never Smokeless tobacco: Never Vaping Use Vaping Use: Never used Substance Use Topics Alcohol use: No Drug use: No Current Outpatient Medications Medication Sig rosuvastatin (CRESTOR) 40 mg tablet allopurinol (ZYLOPRIM) 100 mg tablet PARoxetine (PAXIL) 40 mg tablet TIROSINT 175 mcg cap POTASSIUM ORAL Take by mouth. MULTIVITAMIN ORAL Take by mouth. Flinstone chewables CALCIUM ORAL Take by mouth. cyanocobalamin/folic acid (VITAMIN G33-UOBZC ACID) 1,000-400 mcg lozg Dissolve under the tongue. ALPRAZolam (XANAX) 0.25 mg tablet Take 1 tablet by mouth once daily as needed for Anxiety. albuterol HFA (VENTOLIN HFA) 90 mcg/actuation inhaler Inhale 2 Puffs as instructed every 4 hours as needed for Wheezing/Shortness of Breath. Hydrochlorothiazide 12.5 mg capsule Take 1 capsule by mouth once daily. citalopram (CELEXA) 20 mg tablet 20 mg. (Patient not taking: Reported on 03/09/2023) ibuprofen (MOTRIN) 800 mg tablet (Patient not taking: Reported on 03/09/2023) No current facility-administered medications for this visit. Allergies As of Date: 03/09/2023 Allergen Noted Reaction CITALOPRAM 01/22/2013 GI Upset CODEINE 02/24/2013 Other: See Comments LITHIUM 12/10/2015 GI Upset NSAIDS (NON-STEROIDAL ANTI-INFLAM*01/13/2023 Other: See Comments Fully Assessed 03/09/2023 REVIEW OF SYSTEMS Abdomen: No recent change in bowel movements, bowel movements are markedly different since she had her gastric bypass approximately 6 months ago. Bladder: No dysuria, gross hematuria, urinary frequency, urinary urgency, or incontinence. Allergies and current medication updated:Yes EXAM: BP 110/60 Pulse 68 Resp 16 Ht 4' 11.75 (1.52m) Wt 136 lb (61.7kg) SpO2 99% LMP 03/12/2011 BMI 26.77 kg/(m2). GENERAL: pleasant, female in no apparent distress Reviewed pelvic MRI. Reviewed CA125, CA 19-9 and CEA. ASSESSMENT AND PLAN: Left ovarian cyst, chronic pelvic pain. Discussed with the patient risk benefits alternatives to left salpingo-oophorectomy, right salpingectomy and possible right oophorectomy. I discussed with her that this may or may not help her pain. Discussed with her if she has significant adhesions or endometriosis, may convert to a just a diagnostic laparoscopy and refer her to pelvic pain clinic or minimally invasive gynecology surgery. Patient states understanding and agreement with plan. Medical Decision Making: Medical Decision Making Level: 1 - N/A Gudelia Mi [facility]05-31-2023 History of Present illness Narrative* Gudelia Mi MD - 03/09/2023 12:25 PM EDT Romain Mendoza is a 47 year old female who presents for problem visit for f/u. HPI: 47-year-old with chronic pelvic pain. Status post hysterectomy many years ago. Had a recent MRI. Continues to have pelvic pain. Here for follow-up and discuss options today. OB History T5 L5 SAB0 IAB0 Ectopic0 Multiple0 Live Births5 [employer] History LMP: 03/12/2011, Hysterectomy Age at Menarche: Age at First : Age at Menopause: [employer] History Comments: Sexual Activity: Yes; Male; hysterectomy Contraception: Surgical PAST MEDICAL HISTORY Diagnosis Date Asthma 03/2016 + VICKIE at [facility]. Depressive disorder, not elsewhere classified Encounter for insertion or removal of intrauterine contraceptive device 07/17/2007 Mirena, Removed 10/23/2007 Migraine, unspecified, with intractable migraine, so stated, without mention of status migrainosus Migraine Obesity (BMI 30-39.9) Placenta previa without hemorrhage, antepartum 08/26/2008 Seasonal allergic rhinitis 03/2016 No allergy testing. 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 Unspecified essential hypertension Viral pneumonia, unspecified 2000 Pneumonia PAST SURGICAL HISTORY Procedure Laterality Date APPENDECTOMY 01/2019 DELIVERY ONLY 2005, 2006, 2008 , low cervical X3 GASTRIC BYPASS HX 09/20/2022 Reun Y IUD INSERTION (PURCHASING ADMINISTRATIVE ASSISTANT DEPT)_*FL 07/17/2007 Mirena IUD REMOVAL (PURCHASING ADMINISTRATIVE ASSISTANT DEPT)_*FL 10/23/2007 Mirena LIG/TRNSXJ FLP TUBE ABDL/VAG APPR UNI/BI 2009 Tubal ligation PAST SURGICAL HISTORY OF 1986 Eye surgery TOTAL ABDOMINAL HYSTERECT W/WO RMVL TUBE OVARY 04/22/2011 [facility] FAMILY HISTORY Problem Relation Age of Onset Hypertension Mother Breast Cancer Mother Diabetes Father Stroke Father Cancer Maternal Grandmother UTERINE CANCER COPD Maternal Grandmother Emphysema Social History Tobacco Use Smoking status: Never Smokeless tobacco: Never Vaping Use Vaping Use: Never used Substance Use Topics Alcohol use: No Drug use: No Current Outpatient Medications Medication Sig rosuvastatin (CRESTOR) 40 mg tablet allopurinol (ZYLOPRIM) 100 mg tablet PARoxetine (PAXIL) 40 mg tablet TIROSINT 175 mcg cap POTASSIUM ORAL Take by mouth. MULTIVITAMIN ORAL Take by mouth. Flinstone chewables CALCIUM ORAL Take by mouth. cyanocobalamin/folic acid (VITAMIN Y65-RDVPH ACID) 1,000-400 mcg lozg Dissolve under the tongue. ALPRAZolam (XANAX) 0.25 mg tablet Take 1 tablet by mouth once daily as needed for Anxiety. albuterol HFA (VENTOLIN HFA) 90 mcg/actuation inhaler Inhale 2 Puffs as instructed every 4 hours asneeded for Wheezing/Shortness of Breath. Hydrochlorothiazide 12.5 mg capsule Take 1 capsule by mouth once daily. citalopram (CELEXA) 20 mg tablet 20 mg. (Patient not taking: Reported on 03/09/2023) ibuprofen (MOTRIN) 800 mg tablet (Patient not taking: Reported on 03/09/2023) No current facility-administered medications for this visit. Allergies As of Date: 03/09/2023 Allergen Noted Reaction CITALOPRAM 01/22/2013 GI Upset CODEINE 02/24/2013 Other: See Comments LITHIUM 12/10/2015 GI Upset NSAIDS (NON-STEROIDAL ANTI-INFLAM*01/13/2023 Other: See Comments Fully Assessed 03/09/2023 REVIEW OF SYSTEMS Abdomen: No recent change in bowel movements, bowel movements are markedly different since she had her gastric bypass approximately 6 months ago. Bladder: No dysuria, gross hematuria, urinary frequency, urinary urgency, or incontinence. Allergies and current medication updated:Yes EXAM: BP 110/60 Pulse 68 Resp 16 Ht 4' 11.75 (1.52m) Wt 136 lb (61.7kg) SpO2 99% LMP 03/12/2011 BMI 26.77 kg/(m^2). GENERAL: pleasant, female in no apparent distress Reviewed pelvic MRI. Reviewed CA125, CA 19-9 and CEA. ASSESSMENT AND PLAN: Left ovarian cyst, chronic pelvic pain. Discussed with the patient risk benefits alternatives to left salpingo-oophorectomy, right salpingectomy and possible right oophorectomy. I discussed with her that this may or may not help her pain. Discussed with her if she has significant adhesions or endometriosis, may convert to a just a diagnostic laparoscopy and refer her to pelvic pain clinic or minimally invasive gynecology surgery. Patient states understanding and agreement with plan. Medical Decision Making: Medical Decision Making Level: 1 - N/A Gudelia Mi MD [facility] History and physical note * Gudelia Mi MD - 03/09/2023 9:10 AM EDT Pre-Op History and Physical HPI: The patient is a 47 year old female presenting for pre-operative visit. She is scheduled for laparoscopy with left salpingoophorectomy and right salpingectomy, possible right ovarian cystectomy, for chronic pelvic pain and left ovarian cysts on 03/17/2023. Procedure discussed along with risks, benefits and complications. Other alternatives discussed for management. Consent form signed? Yes. PAST MEDICAL HISTORY Diagnosis Date Asthma 03/2016 + VICKIE at [facility]. Depressive disorder, not elsewhere classified Encounter for insertion or removal of intrauterine contraceptive device 07/17/2007 Mirena, Removed 10/23/2007 Migraine, unspecified, with intractable migraine, so stated, without mention of status migrainosus Migraine Obesity (BMI 30-39.9) Placenta previa without hemorrhage, antepartum 08/26/2008 Seasonal allergic rhinitis 03/2016 No allergy testing. 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 Unspecified essential hypertension Viral pneumonia, unspecified 2000 Pneumonia PAST SURGICAL HISTORY Procedure Laterality Date APPENDECTOMY 01/2019 DELIVERY ONLY 2005, 2006, 2008 , low cervical X3 GASTRIC BYPASS HX 09/20/2022 Reun Y IUD INSERTION (PURCHASING ADMINISTRATIVE ASSISTANT DEPT)_*FL 07/17/2007 Mirena IUD REMOVAL (PURCHASING ADMINISTRATIVE ASSISTANT DEPT)_*FL 10/23/2007 Mirena LIG/TRNSXJ FLP TUBE ABDL/VAG APPR UNI/BI 2009 Tubal ligation PAST SURGICAL HISTORY OF 1986 Eye surgery TOTAL ABDOMINAL HYSTERECT W/WO RMVL TUBE OVARY 04/22/2011 [facility] Current Outpatient Medications Medication Sig Dispense Refill POTASSIUM ORAL Take by mouth. MULTIVITAMIN ORAL Take by mouth. CALCIUM ORAL Take by mouth. cyanocobalamin/folic acid (VITAMIN K53-DGXYE ACID) 1,000-400 mcg lozg Dissolve under the tongue. citalopram (CELEXA) 20 mg tablet 20 mg. ibuprofen (MOTRIN) 800 mg tablet 0 ALPRAZolam (XANAX) 0.25 mg tablet Take 1 tablet by mouth once daily as needed for Anxiety. 10 tablet 0 albuterol HFA (VENTOLIN HFA) 90 mcg/actuation inhaler Inhale 2 Puffs as instructed every 4 hours asneeded for Wheezing/Shortness of Breath. 1 Inhaler 3 LEVOXYL 200 mcg tablet Take 1 tablet by mouth daily before breakfast. In addition to 25mcg tablet. Do not substitute with generic 30 tablet 11 LEVOXYL 25 mcg tablet Take 1 tablet by mouth once daily. Take on empty stomach. For Thyroid. In addition to 200 mcg tablet. Do not substitute with generic 30 tablet 11 Hydrochlorothiazide 12.5 mg capsule Take 1 capsule by mouth once daily. 30 capsule 11 No current facility-administered medications for this visit. ALLERGIES: Citalopram, Codeine, [place], and Nsaids (Non-Steroidal Anti- Inflammatory Drug) PERSONAL HISTORY: Social History Tobacco Use Smoking status: Never Smokeless tobacco: Never Vaping Use Vaping Use: Never used Substance Use Topics Alcohol use: No Drug use: No FAMILY HISTORY: FAMILY HISTORY Problem Relation Age of Onset Hypertension Mother Breast Cancer Mother Diabetes Father Stroke Father Cancer Maternal Grandmother UTERINE CANCER COPD Maternal Grandmother Emphysema REVIEW OF SYMPTOMS: GENERAL: denies fevers or chills ENDOCRINOLOGY: has not been on steroids Cardiology : denies palpitations or chest pain Respiratory: denies SOB or cough Hematology: denies history of prolonged bleeding or easy bruising or VTE Allergy: Denies history of personal or family history of allergy to anesthesia PHYSICAL EXAMINATION: VITALS: Last menstrual period 03/12/2011. GENERAL: The patient is well nourished, well hydrated in no acute distress. , The patient is oriented to time, place, and person. NECK: Supple. No lynphadenopathy, normal thyroid, no thyromegaly. LUNGS: Clear to auscultation bilaterally. no wheezes, rhonchi or rales HEART: Regular rate and rhythm, Normal heart sounds, and No murmurs or gallops IMPRESSION: chronic pelvic pain, left ovarian cysts PLAN: The risks/benefits/alternatives and personal involved for the planned left salpingoophorectomy and right salpingectomy, possible right ovarian cystectomy, for chronic pelvic pain and left ovarian cysts were reviewed with the patient. Her questions were answered to her satisfaction and she desires to proceed. Consent was signed. I reviewed with her postop instructions and expectations. I have reviewed and updated past medical and surgical history, medications and allergies Gudelia Mi M.D. documented in this encounterTri[facility] Miscellaneous Notes* Telephone Encounter - Crystal Plummer RN - 02/22/2023 3:46 PM EDT Form signed by and faxed to [facility] * Telephone Encounter - Crystal Plummer RN - 02/22/2023 10:22 AM EDT Patient would like to be scheduled at [facility] for MRI, they can get her in sooner on the and we have checked and they are unable to get her in here at [facility] until March 15. Please send order to [facility]. Sheis asking for new order to be sent on [facility] form- hospital told her to not send a copy of our order. [facility] order form on desk for signature documented in this encounterTri[facility] Miscellaneous Notes* Telephone Encounter - Crystal Plummer RN - 02/08/2023 10:04 AM EDT Images from the original note were not included. I called patient and informed her of Lab and MRI ordered. she is scheduled for bloodwork today. Transferred her to schedule MRI. Gudelia Mi MD [facility]-[employer] Pool Please call and schedule MRI for patient. ordered CEA and ca 19-9. Need this done before her surgery. Thanks. See phone note. Gudelia Mi MD documented in this encounterTrihealth [facility]04-27-[facility]23 NoteHNO ID: [id number] Author: Gudelia Mi MD Service: ? Author Type: Physician Type: Progress Notes Filed: 02/08/2023 3:10 PM Note Text: Romain Mendoza is a 47 year old female who presents for problem visit for f/u pelvic pain and adenexal masses . HPI: US done. Ca 125 normal. No new c/o today. Still has pain. OB History T5 L5 SAB0 IAB0 Ectopic0 Multiple0 Live Births5 [employer] History LMP: 03/12/2011, Hysterectomy Age at Menarche: Age at First : Age at Menopause: [employer] History Comments: Sexual Activity: Yes; Male; hysterectomy Contraception: Tubal Ligation, Surgical PAST MEDICAL HISTORY Diagnosis Date Asthma 03/2016 + VICKIE at [facility]. Depressive disorder, not elsewhere classified Encounter for insertion or removal of intrauterine contraceptive device 07/17/2007 Mirena, Removed 10/23/2007 Migraine, unspecified, with intractable migraine, so stated, without mention of status migrainosus Migraine Obesity (BMI 30-39.9) Placenta previa without hemorrhage, antepartum 08/26/2008 Seasonal allergic rhinitis 03/2016 No allergy testing. 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 Unspecified essential hypertension Viral pneumonia, unspecified 2000 Pneumonia PAST SURGICAL HISTORY Procedure Laterality Date APPENDECTOMY 01/2019 DELIVERY ONLY 2006, 2006, 2009 , low cervical X3 GASTRIC BYPASS HX 09/20/2022 Reun Y IUD INSERTION (PURCHASING ADMINISTRATIVE ASSISTANT DEPT)_*FL 07/17/2007 Mirena IUD REMOVAL (PURCHASING ADMINISTRATIVE ASSISTANT DEPT)_*FL 10/23/2007 Mirena LIG/TRNSXJ FLP TUBE ABDL/VAG APPR UNI/BI 2009 Tubal ligation PAST SURGICAL HISTORY OF 1986 Eye surgery TOTAL ABDOMINAL HYSTERECT W/WO RMVL TUBE OVARY 04/22/2011 [facility] FAMILY HISTORY Problem Relation Age of Onset Hypertension Mother Breast Cancer Mother Diabetes Father Stroke Father Cancer Maternal Grandmother UTERINE CANCER COPD Maternal Grandmother Emphysema Social History Tobacco Use Smoking status: Never Smokeless tobacco: Never Substance Use Topics Alcohol use: No Drug use: No Current Outpatient Medications Medication Sig POTASSIUM ORAL Take by mouth. MULTIVITAMIN ORAL Take by mouth. CALCIUM ORAL Take by mouth. cyanocobalamin/folic acid (VITAMIN O81-SQXQA ACID) 1,000-400 mcg lozg Dissolve under the tongue. citalopram (CELEXA) 20 mg tablet 20 mg. ibuprofen (MOTRIN) 800 mg tablet ALPRAZolam (XANAX) 0.25 mg tablet Take 1 tablet by mouth once daily as needed for Anxiety. albuterol HFA (VENTOLIN HFA) 90 mcg/actuation inhaler Inhale 2 Puffs as instructed every 4 hours as needed for Wheezing/Shortness of Breath. LEVOXYL 200 mcg tablet Take 1 tablet by mouth daily before breakfast. In addition to 25mcg tablet. Do not substitute with generic LEVOXYL 25 mcg tablet Take 1 tablet by mouth once daily. Take on empty stomach. For Thyroid. In addition to 200 mcg tablet. Do not substitute with generic Hydrochlorothiazide 12.5 mg capsule Take 1 capsule by mouth once daily. No current facility-administered medications for this visit. Allergies As of Date: 02/03/2023 Allergen Noted Reaction CITALOPRAM 01/22/2013 GI Upset CODEINE 02/24/2013 Other: See Comments LITHIUM 12/10/2015 GI Upset NSAIDS (NON-STEROIDAL ANTI-INFLAM*01/13/2023 Other: See Comments Fully Assessed 01/13/2023 RAllergies and current medication updated:Yes EXAM: LMP 03/12/2011 GENERAL: pleasant, female in no apparent distress ASSESSMENT AND PLAN: left adenxal complex, suspect tube and ovarian complex. Ca 125 normal. R/b/a to LSO, right salpingectomy reviewed. D/w her this may or may not improve pain. D/w her would not recommend removal of both ovaries b/c risk of premature surgical menopause is clinically greater than leaving ovary in. She states understanding and agreement w/ plan. MRI and CEA and ca 19-9 ordered for completeness Medical Decision Making: Medical Decision Making Level: 1 - N/A Gudelia Mi, [facility]04[facility]23 NoteHNO ID: [id number] Author: Gudelia Mi MD Service: ? Author Type: Physician Type: Progress Notes Filed: 01/13/2023 12:10 PM Note Text: Paste Mixer Liquid offered: Patient declines. Romain Mendoza is a 47 year old female who presents for problem visit for ovarian cyst . HPI: 47 YOF w/ long h/o pelvic pain and was in ED and they did CT and had ovarian lesion. Had f/u plevic US on 01/07 and shows tubo-ovarian mass on the left. Was dx w/ UTI and treated but pain didn't improved. Has h/o pain w/ intercourse even before the hysterectomy. No vaginal dryness. No pain w/ BM or urination. Recently had gastric bypass and has lost signif amount of weight. No abnormal vagina discharge, itching or burning. OB History T5 L5 SAB0 IAB0 Ectopic0 Multiple0 Live Births5 [employer] History LMP: 03/12/2011, Hysterectomy Age at Menarche: Age at First : Age at Menopause: [employer] History Comments: Sexual Activity: Yes; Male; hysterectomy Contraception: Tubal Ligation, Surgical PAST MEDICAL HISTORY Diagnosis Date Asthma 03/2016 + VICKIE at [facility]. Depressive disorder, not elsewhere classified Encounter for insertion or removal of intrauterine contraceptive device 07/17/2007 Mirena, Removed 10/23/2007 Migraine, unspecified, with intractable migraine, so stated, without mention of status migrainosus Migraine Obesity (BMI 30-39.9) Placenta previa without hemorrhage, antepartum 08/26/2008 Seasonal allergic rhinitis 03/2016 No allergy testing. 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 Unspecified essential hypertension Viral pneumonia, unspecified 2000 Pneumonia PAST SURGICAL HISTORY Procedure Laterality Date APPENDECTOMY 01/2019 DELIVERY ONLY 2006, 2006, 2009 , low cervical X3 GASTRIC BYPASS HX 09/20/2022 IUD INSERTION (PURCHASING ADMINISTRATIVE ASSISTANT DEPT)_*FL 07/17/2007 Mirena IUD REMOVAL (PURCHASING ADMINISTRATIVE ASSISTANT DEPT)_*FL 10/23/2007 Mirena LIG/TRNSXJ FLP TUBE ABDL/VAG APPR UNI/BI 2009 Tubal ligation PAST SURGICAL HISTORY OF 1986 Eye surgery TOTAL ABDOMINAL HYSTERECT W/WO RMVL TUBE OVARY 04/22/2011 [facility] FAMILY HISTORY Problem Relation Age of Onset Hypertension Mother Breast Cancer Mother Diabetes Father Stroke Father Cancer Maternal Grandmother UTERINE CANCER COPD Maternal Grandmother Emphysema Social History Tobacco Use Smoking status: Never Smokeless tobacco: Never Substance Use Topics Alcohol use: No Drug use: No Current Outpatient Medications Medication Sig POTASSIUM ORAL Take by mouth. MULTIVITAMIN ORAL Take by mouth. CALCIUM ORAL Take by mouth. cyanocobalamin/folic acid (VITAMIN O34-MFFZU ACID) 1,000-400 mcg lozg Dissolve under the tongue. ALPRAZolam (XANAX) 0.25 mg tablet Take 1 tablet by mouth once daily as needed for Anxiety. albuterol HFA (VENTOLIN HFA) 90 mcg/actuation inhaler Inhale 2 Puffs as instructed every 4 hours as needed for Wheezing/Shortness of Breath. LEVOXYL 200 mcg tablet Take 1 tablet by mouth daily before breakfast. In addition to 25mcg tablet. Do not substitute with generic Hydrochlorothiazide 12.5 mg capsule Take 1 capsule by mouth once daily. citalopram (CELEXA) 20 mg tablet 20 mg. ibuprofen (MOTRIN) 800 mg tablet LEVOXYL 25 mcg tablet Take 1 tablet by mouth once daily. Take on empty stomach. For Thyroid. In addition to 200 mcg tablet. Do not substitute with generic No current facility-administered medications for this visit. Allergies As of Date: 01/13/2023 Allergen Noted Reaction CITALOPRAM 01/22/2013 GI Upset CODEINE 02/24/2013 Other: See Comments LITHIUM 12/10/2015 GI Upset NSAIDS (NON-STEROIDAL ANTI-INFLAM*01/13/2023 Other: See Comments Fully Assessed 01/13/2023 REVIEW OF SYSTEMS Abdomen: some changes in stools she associates w/ gastric bypass Bladder: No dysuria, gross hematuria, urinary frequency, urinary urgency, or incontinence. Allergies and current medication updated:Yes EXAM: BP 104/60 Wt 151 lb 8 oz (68.7kg) LMP 03/12/2011 GENERAL: pleasant, female in no apparent distress HABDOMEN: soft, non-tender, no hernia, and no masses PELVIC: external genitalia normal, normal Bartholin's glands, urethra, [place]'s glands, no vulvar lesions, good vaginal support, physiologic discharge present, normal appearing perineal body and perianal region, cervix surgically absent BIMANUAL: no adnexal masses, non-tender, uterus surgically absent, and tender over bladder, at cuff and over rectum. Levator spasm. ASSESSMENT AND PLAN: ovarian cysts, anechoic and small on US report. D/ wher surgical removal of ovaries will make her surgically menopausal and likely not imporove pain. She has pain diffusely, not just around ovaries. Cysts likely physiological. Repeat US in 1 montha dn f/u w/ me. Check CA 125. refer for pelvic floor PT. Consider pelvic pain clinic referal. Medical Decision Making: Problems: Moderate: 1+ chronic illnesse (more content not included)...[facility]03-30-2023 Evaluation note* Encounter Date Diagnosis Assessment Notes Treatment Notes Treatment Clinical Notes Dec, Vitamin D deficiency , unspecified (ICD-10 - E55.9) Dec, Anemia, unspecified (ICD-10 - D64.9) Dec, Vitamin B12 deficiency (ICD-10 - E53.8) Dec, Malabsorption (ICD-1 0 - K90.9) Dec, History of bariatric surgery (ICD-10 - Z98.84) [facility]. Other 01-23-2023 Evaluation note* Encounter Date Diagnosis Assessment Notes Treatment Notes Treatment Clinical Notes Oct, Other Reviewed 6 w [place] diet progression. I reviewed which foods patient can start to incorporate and which foods to avoid. I reviewed timeline with patient over the next 6 weeks on which foods can be reintroduced back into the diet. Informed patient to measure out portion sizes and track volume size. Informed patient to aim for at least 60g of protein per day and continue to prioritize fluids and ensure getting in at least 50-60 oz fluid daily. Reviewed the importance of slowly eating and stop when starting to feel full. 6 week diet education packet was given. Reviewed Vitamin and Mineral supplementation to start taking at 6 weeks post-op in addition to daily MVI. Patient shows good understanding. [facility]. Other 01-23-2023 Evaluation note* Encounter Date Diagnosis Assessment Notes Treatment Notes Treatment Clinical Notes Oct, Surgery follow-up examination (ICD-10 - Z09) Activty restrictions lifted. May start swallowing pills. Discussed starting an exercise routine working up to 5 days per week for a minimum of 30 min to achieve weight loss goals. Oct, H/O bariatric surger y (ICD-10 - Z98.84) Activty restrictions lifted. May start swallowing pills. Discussed starting an exercise routine working up to 5 days per week for a minimum of 30 min to achieve weight loss goals. Oct, Abnormal intestinal absorption (ICD-10 - K90.9) Continue supplementation for life. Oct, Vitamin D deficiency , unspecified (ICD-10 - E55.9) Continue supplementation for life. Lab req given to patient. Oct, B12 deficiency (ICD- 10 - E53.8) Continue supplementation for life. Lab req given to patient. Oct, Hyperparathyroidism (ICD-10 - E21.3) Start calcium citrate BID, from multivitamin by at least 2 hours. Lab req given to patient. Oct, Other Advance diet pe r protocol May swallow whole pills Reviewed the rules for long-term weight loss success Continue PPI, MVI with Fe Begin micronutrient supplement protocol/handout given Activity restrictions lifted Discussed the importance of regular exercise for continued long-term weight loss success [facility] [employer]. Other 01-23-2023 Evaluation note* Encounter Date Diagnosis Assessment Notes Treatment Notes Treatment Clinical Notes Oct, Vitamin D deficiency , unspecified (ICD-10 - E55.9) Oct, Anemia, unspecified (ICD-10 - D64.9) Oct, Vitamin B12 deficiency (ICD-10 - E53.8) Oct, Malabsorption (ICD-1 0 - K90.9) Oct, History of bariatric surgery (ICD-10 - Z98.84) [facility]. Other 01-09-2023 Evaluation note* Encounter Date Diagnosis Assessment Notes Treatment Notes Treatment Clinical Notes Oct, Surgery follow-up examination (ICD-10 - Z09) Continue activity restrictions. Oct, Other Advance diet pe r protocol Continue MVI with Fe, PPI Reviewed the rules for penitentiary weight loss success. Continue to increase walking for exercise. [facility] [employer]. Other 01-09-2023 Evaluation note* Encounter Date Diagnosis Assessment Notes Treatment Notes Treatment Clinical Notes Oct, Other Reviewed sof t food diet progression. Patient was instructed to start soft food stage 1 on 10/19. I reviewed which foods patient can start to incorporate and which foods to avoid. Instructed to start soft food stage 2 on 10/26. Informed patient to measure out portion sizes and track volume size. Informed patient to aim for at least 60g of protein per day and to add protein shake as needed. Encouraged continuing to prioritize fluids and ensure getting in at least 50-60 oz fluid daily. Reviewed the importance of slowly eating and stop when starting to feel full. Soft food education packet was given, patient shows good understanding. [facility] [employer] [facility]. Other 12-27-2022 Evaluation note* Encounter Date Diagnosis Assessment Notes Treatment Notes Treatment Clinical Notes Sep, Other Reviewed pur eed diet progression. Patient was instructed to start purees today 10/05. I reviewed how to blend foods appropriately to one consistency using a business professor. Pureed food examples and recipes were provided in packet, reviewed foods to avoid at this time. Informed patient to measure out portion sizes and track volume size. Informed patient to aim for at least 60g of protein per day and to add protein shake as needed. Encouraged continuing to prioritize fluids and ensure getting in at least 50-60 oz fluid daily. Reviewed the importance of slowly eating and stop when starting to feel full. Pureed education packet was given, patient shows good understanding. [facility] [employer]. Other 12-27-2022 Evaluation note* Encounter Date Diagnosis Assessment Notes Treatment Notes Treatment Clinical Notes Sep, Surgery follow-up examination (ICD-10 - Z09) Start ursodiol twice daily. Mix with sugar free jam or jelly a few days after starting pureed diet. Continue activity restrictions. Sep, Other Advance diet pe r protocol Continue PPI until 3 months Continue MVI with Fe May increase walking as tolerated, can start cardio if able to compensate increased fluid loss [facility]. Other 12-14-2022 Hospital Discharge instructions Activity on Discharge from 09/22/2022 3:57 PM: * Activity Restrictions : No Strenuous Activity,No Pushing or Pulling,No Bending over,No Sexual Relations,No Heavy Lifting,No Tub Baths * Driving : No Driving Until Permitted by Physician,No Driving While on Pain Medication * Stairs : As tolerated * Activity Instructions : No bending, pushing, pulling, lifting more than 10lbs, twisting for 6 weeks. Walk at least every hour during the day. * Bathing : No Tub Baths,May Shower * May shower in: : 0 * May shower in: : Day(s) [facility] Discharge Plan/Instruction from 09/22/2022 3:57 PM: * Activity Instructions : No bending, pushing, pulling, lifting more than 10lbs, twisting for 6 weeks. Walk at least every hour during the day. * Additional Instructions/Comments : If no CPAP at home, sleep upright and do not take any narcotics for several hours prior to napping or sleeping Chest Pain/Heart Attack Information from 09/22/2022 3:57 PM: * Has Patient had Chest Pain or an GA during this Visit? : No * It is important to understand risk factors for heart disease : It is important to understand risk factors for heart disease * so you can work with your doctor to help prevent further cardiac : so you can work with your doctorto help prevent further cardiac injury. Emergency Response Coordinator Discharge Instructions from 09/22/2022 4:19 PM: * Optoelectronics Engineer Followup : Alphonse Galvan MD ([id number]) - Pulmonology * Optoelectronics Engineer Address and Phone : [address] [address] [phone] * Optoelectronics Engineer Instructions : Please call to schedule an appointment upon discharge if needed. COPD Information from 09/22/2022 3:57 PM: * Does Patient have a problem/diagnosis of COPD? : No Diet Plan/Instructions at Discharge from 09/22/2022 3:57 PM: * Diet Comments : Sips of noncarbonated, low calorie, low to no sugar liquids every 3 to 5 minutes for a goal of 50- 60 oz per day (6-8 cups). Add 1 protien shake per day beginning in the evening 1-2 days after discharge. Increase to 2 protien shakes per day in the second week for a goal of 50-60 grams of protien per day. Make it the last liquid of the day. ED Discharge Education Evaluation from 09/21/2022 8:00 AM: * Educ Topic #1 : Yes Education materials given during your stay from 09/22/2022 3:57 PM: * Learning Barrier : None Medication Plan/Information for Discharge from 09/22/2022 3:57 PM: * Discharge Medication : e-Prescribed Obstructive Sleep Apnea Information from 09/22/2022 3:57 PM: * You have scored 'High Risk' : for Obstructive Sleep Apnea (BALBINA) * Obstructive Sleep Apnea (BALBINA) : is a serious medical condition. Complications can include: * Daytime fatigue and sleepiness : . * Sleep Apnea info 3 : The repeated awakenings associated with sleep apnea make normal, restorative sleep impossible, making severe daytime drowsiness, fatigue and irritability likely. * Sleep Apnea info 5 : People with sleep apnea have an increased risk of motor vehicle and workplace accidents. * Sleep Apnea info 4 : You might have difficulty concentrating and find yourself falling asleep at work, while watching TV or even when driving. * Sleep Apnea info 7 : Children and adolescents with sleep apnea might perform poorly in school or have behavior problems. * Sleep Apnea info 6 : You might also feel quick-tempered, workman or depressed. * High blood pressure or heart problems : . * Sleep Apnea info 9 : Sudden drops in blood oxygen levels that occur during sleep apnea increase blood pressure and strain the cardiovascular system. * Sleep Apnea info 10 : Having obstructive sleep apnea increases your risk of high blood pressure (hypertension). * Sleep Apnea info 11 : Obstructive sleep apnea might also increase your risk of recurrent heart attack, stroke and abnormal heartbeats, such as atrial fibrillation. * Sleep Apnea info 12 : If you have heart disease, multiple episodes of low blood oxygen (hypoxia or hypoxemia) can lead to sudden from an irregular heartbeat. * Type 2 diabetes : . * Sleep Apnea info 14 : Having sleep apnea increases your risk of developing insulin resistance and type 2 diabetes. * Metabolic syndrome : . * Sleep Apnea info 16 : This disorder, which includes high blood pressure, abnormal cholesterol levels, high blood sugar and an increased waist circumference, is linked to a higher risk of heart disease. * Complications with medications and surgery : . * Sleep Apnea info 18 : Obstructive sleep apnea is also a concern with certain medications and general anesthesia. * Sleep Apnea info 19 : People with sleep apnea might be more likely to have complications after major surgery because they're prone to breathing problems, especially when sedated and lying on their backs. * Sleep Apnea info 20 : Before you have surgery, tell your doctor about your sleep apnea and how it'sbeing treated. * Eye problems : . * Sleep Apnea info 22 : Some research has found a connection between obstructive sleep apnea and certain eye conditions, such as glaucoma. * Sleep Apnea info 23 : Eye complications can usually be treated. * Liver problems : . * Sleep Apnea info 25 : People with sleep apnea are more likely to have abnormal results on liver function tests, and their livers are more likely to show signs of scarring (nonalcoholic fatty liver disease). * Sleep-deprived partners : . * Sleep Apnea info 27 : Loud snoring can keep anyone who sleeps near you from getting good rest. * Sleep Apnea info 28 : It's not uncommon for a partner to have to go to another room, or even to another floor of the house, to be able to sleep. * Sleep Apnea info 29 : People with BALBINA may also complain of memory problems, morning headaches, moodswings or feelings of depression, and need to urinate frequently at night (nocturia) * Sleep Apnea info 30 : Additionally, a study by the [facility] shows that sleep apnea may be tied to increased Alzheimer biomarker in the brain. Patient Transfer Information from 09/22/2022 3:57 PM: * Special Instructions : Face away from the water when showering, pat incision dry. Do not submerge incision until okayed by office. * Transition Record Discussed and Provided to Patient Caregiver : Yes Physician Follow-up Plan/Appointments from 09/22/2022 4:18 PM: * Discharge Physician: : Anaid Garsia MD ([id number]) - Surgery * Follow up with Ordering Physician : 2 * Discharge Physician Specialty : Week(s) * Discharge Physician Phone: : [address] [address] [phone] * Patient stated Primary Care Provider : OTHER * Follow up with PCP in : 2 * Schedule follow up with PCP in: : Week(s) Special Plan/Instructions for Discharge from 09/22/2022 3:57 PM: * Additional Instructions/Comments : If no CPAP at home, sleep upright and do not take any narcotics for several hours prior to napping or sleeping * Special Instructions : Face away from the water when showering, pat incision dry. Do not submerge incision until okayed by office. Stroke/TIA Discharge Information from 09/22/2022 3:57 PM: * Does the Patient Have a Problem/Diagnosis of Stroke this visit? : No Wound Care Instruction for Discharge from 09/22/2022 3:57 PM: * Change Bandage : Keep bandage clean and dry,Do not disturb bandage,Leave wound/incision open to air * Supplies Given : Do not rub any lotions or moisturizers on incisions * Special Instructions : Face away from the water when showering, pat incision dry. Do not submerge incision until okayed by office. [facility] 12-14-2022 Evaluation + Plan note Assessment and Plan from 09/22/2022 3:53 PM: * Why You Were Here: To have weight loss surgery * Brief Discharge Plan: Follow instructions: Sips of noncarbonated low to no calorie, low to no sugarliquids every three minutes for a goal of 6-8 glasses of fluid per day. Walk for 2-3 minutes every hour. Use the incentive spirometer 10 times per hour while awake. Add one protein shake per day start or Tuesday with a goal of 2 shakes per day starting the second week. [facility] 12-14-2022 Discharge summary* Discharge Summary Note : Discharge Disposition & Condition Discharge Date 09/22/2022 15:53. Time Spent On Discharge 30 Minutes. Disposition Inpatient Home (Routine)/Ass isted Living. Patient Condition Stable. Incision/Wound Care Instructions Care of Bandage Keep bandage clean a nd dry, Do not disturb bandage, Leave wound/incision open to air. Special Instructions Face away from the water when showering, pat incision dry. Do not submerge incision until okayed by office. . Supplies Given Do not rub any lotio ns or moisturizers on incisions. [facility] [id number] Hospital Discharge instructions Emergency Response Coordinator Discharge Instructions from 09/20/2022 4:46 PM: * Optoelectronics Engineer Followup : Alphonse Galvan MD ([id number]) - Pulmonology * Optoelectronics Engineer Address and Phone : [address] [address] [phone] * Optoelectronics Engineer Instructions : Please call to schedule an appointment upon discharge. ED Discharge Education Evaluation from 09/20/2022 6:38 PM: * Educ Topic #1 : Yes Patient Transfer Information from 09/20/2022 6:38 PM: * Sensory Screening : Denies problems or history * Does Patient have hearing aids? : No Physician Follow-up Plan/Appointments from 09/20/2022 6:38 PM: * Patient stated Primary Care Provider : OTHER [facility] 12-12-2022 Evaluation note* Encounter Date Diagnosis Assessment Notes Treatment Notes Treatment Clinical Notes Sep, Class 2 severe obesi ty due to excess calories with serious comorbidity in adult (ICD-10 - E66.01) Sep, Hypercholesteremia (ICD-10 - E78.00) Sep, Accelerated essentia l hypertension (ICD-10 - I10) Sep, Apnea, sleep (ICD-10 - G47.30) Sep, Acid reflux (ICD-10 - K21.9) Sep, Renal insufficiency (ICD-10 - N28.9) Sep, Adult body mass inde x 38.0-38.9 (ICD-10 - Z68.38) [facility]. Other 11-17-2022 Evaluation note* Encounter Date Diagnosis Assessment Notes Treatment Notes Treatment Clinical Notes Aug, Other Today's Less on: In class settings, reviewed thin liquids diet that patient will be required to follow for 2 weeks after surgery. Reviewed low calorie fluids along with protein shakes and products that can be consumed. Emphasized the importance of following diet guidelines and recommendations after surgery to prevent complications. Addressed liquids and items to avoid at this time. Patients are educated to drink at least 50 oz of fluid per day, and gradually take in 50g protein per day. Briefly reviewed the diet progression for the next 3-4 months, which will also be discussed at each follow up appointment after surgery. Also reviewed supplementation after bariatric surgery. Patient was instructed to take chewable MVI with iron once daily for the first 6 weeks after surgery. Other supplementation will be introduced at 6 week follow up appointment. [facility]. Other 11-17-2022 Evaluation note* Encounter Date Diagnosis Assessment Notes Treatment Notes Treatment Clinical Notes Aug, Pre-op exam (ICD-10 - Z01.818) Day before surgery, take medications as usual, except no hydrochlorothiaz delisa. Day of surgery, no medications She is medically clear for surgery Aug, Primary hypertension (ICD-10 - I10) Aug, Gastroesophageal reflux (ICD-10 - K21.9) Aug, Non morbid obesity due to excess calories (ICD-10 - E66.09) Counseled on low calorie diet and increased exercise Aug, Sleep apnea (ICD-10 - G47.30) Counseled on consistent CPAP use Aug, Vitamin D deficiency (ICD-10 - E55.9) Aug, Other Lizzie Hardy, attest that this documentation has been prepared under the direction and presence of Zandra Rubin MD. By signing below, Zandra Hardy MD, personally performed the services described in this documentation. All medical record entries made by the scribe were at my direction and in my presence. I have received the chart and agree that the record reflects my personal performance and is accurate and complete [facility]. Other 09-14-2022 Evaluation note* Encounter Date Diagnosis Assessment Notes Treatment Notes Treatment Clinical Notes Jun, Gastroesophageal reflux (ICD-10 - K21.9) Jun, Non morbid obesity d ue to excess calories (ICD-10 - E66.09) Counseled on low calorie diet and increased exercise Jun, Sleep apnea (ICD-10 - G47.30) Counseled on consistent CPAP use Jun, Primary hypertension (ICD-10 - I10) Jun, Vitamin D deficiency (ICD-10 - E55.9) Jun, Other Lizzie Hardy, attest that this documentation has been prepared under the direction and presence of Zandra Rubin MD. By signing below, I, Zandra Rubin MD, personally performed the services described in this documentation. All medical record entries made by the scribe were at my direction and in my presence. I have received the chart and agree that the record reflects my personal performance and is accurate and complete [facility]. Other 09-14-2022 Evaluation note* Encounter Date Diagnosis Assessment Notes Treatment Notes Treatment Clinical Notes Jun, Other Today's Lesson: - Review of food recall - Briefly reviewed expectations after surgery Diet Goal: practice the lifelong rules Exercise Recommendations: 150 minutes moderate intensity exercise per week Behavior Goal: - continue to implement the lifelong rules Plan: dietary clearance provided today [facility]. Other 09-11-2022 History general Narrative - Reported* Type Description Date Medical History sleep apnea, CPAP is 2 yrs old, uses it every night but device is recalled, PCP will order a new one Medical History asthma Medical History hypertension Medical History depression Medical History acid reflux Medical History hypothyroidism Medical History sees income tax consultant fo r chest pain, irregular heart beat, fam Hx, exercise stress test 2021 WNL Surgical History appendectomy 2019 Surgical History right knee meniscus Surgical History x 3 Surgical History growth removed above right eye as a child Surgical History hysterectomy 2010 Hospitalization History [facility] chest pain [facility]. Other 08-18-2022 Evaluation note* Encounter Date Diagnosis Assessment Notes Treatment Notes Treatment Clinical Notes May, Gastroesophageal reflux (ICD-10 - K21.9) May, Non morbid obesity d ue to excess calories (ICD-10 - E66.09) Counseled on low calorie diet and increased exercise May, Sleep apnea (ICD-10 - G47.30) Counseled on consistent use of CPAP machine May, Primary hypertension (ICD-10 - I10) May, Vitamin D deficiency (ICD-10 - E55.9) May, Other Lizzie Hardy, attest that this documentation has been prepared under the direction and presence of Zandra Rubin MD. By signing below, I, Zandra Rubin MD, personally performed the services described in this documentation. All medical record entries made by the scribe were at my direction and in my presence. I have received the chart and agree that the record reflects my personal performance and is accurate and complete [facility]. Other 08-18-2022 Evaluation note* Encounter Date Diagnosis Assessment Notes Treatment Notes Treatment Clinical Notes May, Other Today's Lesson: - Review of food recall Diet Goal: practice the lifelong rules Exercise Recommendations: 150 minutes moderate intensity exercise per week Behavior Goal: - continue to implement the lifelong rules [facility]. Other 08-18-2022 Evaluation note* Encounter Date Diagnosis Assessment Notes Treatment Notes Treatment Clinical Notes May, Morbid (severe) obesity due to excess calories (ICD-10 - E66.01) We spent 45 minutes reviewing the three surgical options available in the treatment of morbid obesity in our practice. We reviewed the laparoscopic approach to the Simona-en-Y gastric bypass, the vertical sleeve gastrectomy, and the adjustable gastric band. We reviewed the surgical technique, the risks, and my complication rates. We also reviewed the expected weight loss, the rules necessary for mamie-term success, the nutritional supplementation recommended for each operation, and the importance of incorporating excercise into the lifestyle to maintain the weight. We reviewed both the national history with each operation, my experience with each operation, the lack of long-term weight loss data with the vertical sleeve gastrectomy and the potential for exacerbating reflux with the vertical sleeve gastrectomy. In addition, we discussed the risk of adhesions, internal hernias, iron and calcium deficiency, dumping syndrome and potential for gastrojejunal ulcer with the RYGB. Romain would like to proceed with RYGB. May, Obstructive sleep apnea (ICD-10 - G47.33) We discussed that she should initiate treatment for BALBINA prior to surgery. May, Hyperlipidemia, unspecified (ICD-10 - E78.5) Defer management to Dr. Chris. May, Gastro-esophageal reflux disease without esophagitis (ICD-10 - K21.9) She is to continue her current treatment regimen. We reviewed the concept of hiatal hernia and reviewed that I will evaluate for hiatal hernia at the time of surgery. She understands that if appropriate, I will repair the hernia at the time of surgery. She knows that this is not a guarantee that she will not have GERD symptoms postoperatively. May, Primary generalized (osteo)arthritis (ICD-10 - M15.0) We reviewed that RYGB is not compatible with ASA or NSAIDs due to lifelong risk of gastrojejunal ulcer. May, Primary hypertension (ICD-10 - I10) Defer management to Dr. Chris. May, Chronic renal impairment, stage 3 (moderate), unspecified whether stage 3a or 3b CKD (ICD-10 - N18.30) Defer management to Dr. Chris. May, Other Romain is s/p hysterectomy and is not at risk for . [facility] [employer]. Other 07-27-2022 Evaluation note* Encounter Date Diagnosis Assessment Notes Treatment Notes Treatment Clinical Notes Apr, Gastroesophageal reflux (ICD-10 - K21.9) Apr, Non morbid obesity d ue to excess calories (ICD-10 - E66.09) Counseled on low calorie diet and increased exercise Apr, Sleep apnea (ICD-10 - G47.30) Counseled on consistent use of CPAP Apr, Primary hypertension (ICD-10 - I10) Apr, Vitamin D deficiency (ICD-10 - E55.9) Apr, Other Hayley, Joshua Romero, attest that this documentation has been prepared under the direction and presence of Zandra Rubin MD. By signing below, IZandra MD, personally performed the services described in this documentation. All medical record entries made by the scribe were at my direction and in my presence. I have received the chart and agree that the record reflects my personal performance and is accurate and complete. [facility]. Other 06-27-2022 Evaluation note* Encounter Date Diagnosis Assessment Notes Treatment Notes Treatment Clinical Notes Mar, Other Today's Lesson: - Review of dietary recall - Suggestions provided Diet Goal: practice the lifelong rules Exercise Recommendations: 150 minutes moderate intensity exercise per week Behavior Goal: - Continue to follow the lifelong rules - 1-2# wt loss per week [facility] Other 06-11-2022 History general Narrative - Reported* Type Description Date Medical History sleep apnea, CPAP is 2 yrs old, uses it every night Medical History asthma Medical History hypertension Medical History depression Medical History acid reflux Medical History hypothyroidism Medical History sees income tax consultant fo r chest pain, irregular heart beat, fam Hx, exercise stress test 2021 WNL Surgical History appendectomy 2019 Surgical History right knee meniscus Surgical History x 3 Surgical History growth removed above right eye as a child Surgical History hysterectomy 2009 Hospitalization History [facility] chest [facility] Other 06-08-2022 Evaluation note* Encounter Date Diagnosis Assessment Notes Treatment Notes Treatment Clinical Notes Mar, Gastroesophageal ref lux (ICD-10 - K21.9) Mar, Non morbid obesity d ue to excess calories (ICD-10 - E66.09) Counseled on low calorie diet and increase exercise Mar, Sleep apnea (ICD-10 - G47.30) Counseled on consistent CPAP use Mar, Primary hypertension (ICD-10 - I10) Mar, Vitamin D deficiency (ICD-10 - E55.9) [facility] Other 05-24-2022 Evaluation note* Encounter Date Diagnosis Assessment Notes Treatment Notes Treatment Clinical Notes February, Other Today's Lesson: - Had Romain download and set up [employer] pal profile, set calories to 1500 per day - Reviewed how to scan bar codes and how to manually enter food items - Reviewed the importance of measuring out portions - Recommended keeping meals simple Diet Goal: practice the lifelong rules Exercise Recommendations: 150 minutes moderate intensity exercise per week Behavior Goal: 1. Use [employer] pal and track food intake 2. 1-2# wt loss/week [facility]. Other 05-24-2022 Evaluation note* Encounter Date Diagnosis Assessment Notes Treatment Notes Treatment Clinical Notes February, Sleep apnea (ICD-10 - G47.30) Counseled on consistent CPAP use February, Primary hypertension (ICD-10 - I10) February, Gastroesophageal ref lux (ICD-10 - K21.9) February, Non morbid obesity d ue to excess calories (ICD-10 - E66.09) Counseled on low calorie diet and increase exercise [facility]. Other 04-26-2022 Evaluation note* Encounter Date Diagnosis Assessment Notes Treatment Notes Treatment Clinical Notes Jan, Other Today's Lesson: Review of Dr. Garsia's lifelong rules, calorie counting, food label reading, promoting feelings of satiety, and energy balance. Handouts provided: nutrition guide, 7 day meal ideas, plate method, handy portions Diet Goals: Practice the lifelong rules Exercise Recommendations: Gradually work up to 150 minutes of moderate intensity exercise per week. Behavior Changes: will be assessed every month Behavior Goals: 1. 3 meals a day 2. track food intake [facility]. Other 04-26-2022 Evaluation note* Encounter Date Diagnosis Assessment Notes Treatment Notes Treatment Clinical Notes Jan, Sleep apnea (ICD-10 - G47.30) Jan, Thiamine deficiency (ICD-10 - E51.9) Jan, Gastroesophageal ref lux (ICD-10 - K21.9) Jan, Vitamin D deficiency (ICD-10 - E55.9) Jan, Hyperglycemia (ICD-1 0 - R73.9) Jan, B12 deficiency (ICD- 10 - E53.8) Jan, Iron deficiency (ICD -10 - E61.1) Jan, Thyroid condition (ICD-10 - E07.9) Jan, Hyperlipidemia (ICD- 10 - E78.5) Jan, Coagulation test abnormality (ICD-10 - R79.1) Jan, Pre-op evaluation (ICD-10 - Z01.818) Jan, Non morbid obesity d ue to excess calories (ICD-10 - E66.09) Counseled on low calorie diet and increase exercise Jan, Nutritional deficien cy (ICD-10 - E63.9) [facility]. Other 04-12-2022 History of Present illness Narrative* RT Analisa(R) - 01/19/2022 1:30 PM EDT Radiology Service Progress Note PATIENT NAME: Romain Mendoza DATE OF SERVICE: January 19, 2022 TIME: 1:25 PM PATIENT IDENTITY VERIFICATION COMPLETED USING TWO (2) IDENTIFIERS: Name and Date of confirmedby patient verbally. FALL SCREENING: Has the patient had 2 falls in the last year or 1 fall with injury or currently using an Ambulatory Assistive Device (Walker, Cane, Wheelchair, Crutches, etc.)? No PATIENT GENDER DATA: Female. status: : No status: NO. PATIENT RELEVANT IMPLANT DATA REVIEWED: Not Applicable RADIOLOGY DEPARTMENT: Mammography PERIPHERAL IV DATA: Not applicable SIGNED BY: RT Analisa(R) January 19, 2022 1:25 PM [facility] History of Past illness Narrative* Problem Noted Date Diagnosed Date Resolved Date Asthma, late onset 07/30/2016 3 Impaired glucose metabolism 05/13/2015 05/03/2023 Pain in throat 05/13/2015 06/10/2015 Thyroid activity decreased 05/13/2015 0 06/10/2015 Marital conflict 08/02/2013 05/13/2015 Previous delivery, antepartum condition or complication 04/06/2007 12/16/2010 Unspecified high-risk 04/06/2007 12/16/2010 Thyroid dysfunction of yoseline r, complicating , childbirth, or the puerperium, unspecified as to episode of care(648.10) 02/06/2007 12/16/2010 Supervision of other normal 09/27/2006 08/26/2008 Obesity (BMI 30-39.9) 2022 documented as of this encounter (statuses as of 05/06/2023) [facility] History of Past illness Narrative* Problem Noted Date Diagnosed Date Resolved Date Asthma, late onset 07/30/2016 3 Impaired glucose metabolism 05/13/2015 05/03/2023 Pain in throat 05/13/2015 06/10/2015 Thyroid activity decreased 05/13/2015 0 06/10/2015 Marital conflict 08/02/2013 05/13/2015 Previous delivery, antepartum condition or complication 04/06/2007 12/16/2010 Unspecified high-risk 04/06/2007 12/16/2010 Thyroid dysfunction of mothe r, complicating , childbirth, or the puerperium, unspecified as to episode of care(648.10) 02/06/2007 12/16/2010 Supervision of other normal 09/27/2006 08/26/2008 Obesity (BMI 30-39.9) 2022 documented as of this encounter (statuses as of 05/09/2023) [facility] History of Past illness Narrative* Problem Noted Date Diagnosed Date Resolved Date Asthma, late onset 07/30/2016 3 Impaired glucose metabolism 05/13/2015 05/03/2023 Pain in throat 05/13/2015 06/10/2015 Thyroid activity decreased 05/13/2015 0 06/10/2015 Marital conflict 08/02/2013 05/13/2015 Previous delivery, antepartum condition or complication 04/06/2007 12/16/2010 Unspecified high-risk 04/06/2007 12/16/2010 Thyroid dysfunction of mothe r, complicating , childbirth, or the puerperium, unspecified as to episode of care(648.10) 02/06/2007 12/16/2010 Supervision of other normal 09/27/2006 08/26/2008 Obesity (BMI 30-39.9) 2022 documented as of this encounter (statuses as of 05/10/2023) [facility] History of Past illness Narrative* Problem Noted Date Diagnosed Date Resolved Date Asthma, late onset 07/30/2016 3 Impaired glucose metabolism 05/13/2015 05/03/2023 Pain in throat 05/13/2015 06/10/2015 Thyroid activity decreased 05/13/2015 0 06/10/2015 Marital conflict 08/02/2013 05/13/2015 Previous delivery, antepartum condition or complication 04/06/2007 12/16/2010 Unspecified high-risk 04/06/2007 12/16/2010 Thyroid dysfunction of mothe r, complicating , childbirth, or the puerperium, unspecified as to episode of care(648.10) 02/06/2007 12/16/2010 Supervision of other normal 09/27/2006 08/26/2008 Obesity (BMI 30-39.9) 2022 documented as of this encounter (statuses as of 05/10/2023) [facility] of Past illness Narrative* Problem Noted Date Diagnosed Date Resolved Date Asthma, late onset 07/30/2016 3 Impaired glucose metabolism 05/13/2015 05/03/2023 Pain in throat 05/13/2015 06/10/2015 Thyroid activity decreased 05/13/2015 0 06/10/2015 Marital conflict 08/02/2013 05/13/2015 Previous delivery, antepartum condition or complication 04/06/2007 12/16/2010 Unspecified high-risk 04/06/2007 12/16/2010 Thyroid dysfunction of mothe r, complicating , childbirth, or the puerperium, unspecified as to episode of care(648.10) 02/06/2007 12/16/2010 Supervision of other normal 09/27/2006 08/26/2008 Obesity (BMI 30-39.9) 2022 documented as of this encounter (statuses as of 05/12/2023) [facility] of Past illness Narrative* Problem Noted Date Diagnosed Date Resolved Date Asthma, late onset 07/30/2016 3 Impaired glucose metabolism 05/13/2015 05/03/2023 Pain in throat 05/13/2015 06/10/2015 Thyroid activity decreased 05/13/2015 0 06/10/2015 Marital conflict 08/02/2013 05/13/2015 Previous delivery, antepartum condition or complication 04/06/2007 12/16/2010 Unspecified high-risk 04/06/2007 12/16/2010 Thyroid dysfunction of mothe r, complicating , childbirth, or the puerperium, unspecified as to episode of care(648.10) 02/06/2007 12/16/2010 Supervision of other normal 09/27/2006 08/26/2008 Obesity (BMI 30-39.9) 2022 documented as of this encounter (statuses as of 05/30/2023) [facility] of Past illness Narrative* Problem Noted Date Resolved Date Pain in throat 05/13/2015 06/10/2015 Thyroid activity decreased 05/13/201506/10 Marital conflict 08/02/2013 05/13/2015 Previous delivery, antepartum condition or complication 04/06/2007 12/16/2010 Unspecified high-risk 04/06/2007 12/16/2010 Thyroid dysfunction of mothe r, complicating , childbirth, or the puerperium, unspecified as to episode of care(648.10) 02/06/2007 12/16/2010 Supervision of other normal 09/27/2006 08/26/2008 documented as of this encounter (statuses as of 01/20/2022) [facility] of Past illness Narrative* Problem Noted Date Resolved Date Pain in throat 05/13/2015 06/10/2015 Thyroid activity decreased 05/13/201506/10 Marital conflict 08/02/2013 05/13/2015 Previous delivery, antepartum condition or complication 04/06/2007 12/16/2010 Unspecified high-risk 04/06/2007 12/16/2010 Thyroid dysfunction of mothe r, complicating , childbirth, or the puerperium, unspecified as to episode of care(648.10) 02/06/2007 12/16/2010 Supervision of other normal 09/27/2006 08/26/2008 documented as of this encounter (statuses as of 01/20/2022) [facility] of Past illness Narrative* Problem Noted Date Resolved Date Pain in throat 05/13/2015 06/10/2015 Thyroid activity decreased 05/13/201506/10 Marital conflict 08/02/2013 05/13/2015 Previous delivery, antepartum condition or complication 04/06/2007 12/16/2010 Unspecified high-risk 04/06/2007 12/16/2010 Thyroid dysfunction of mothe r, complicating , childbirth, or the puerperium, unspecified as to episode of care(648.10) 02/06/2007 12/16/2010 Supervision of other normal 09/27/2006 08/26/2008 documented as of this encounter (statuses as of 02/08/2023) [facility] of Past illness Narrative* Problem Noted Date Resolved Date Pain in throat 05/13/2015 06/10/2015 Thyroid activity decreased 05/13/201506/10 Marital conflict 08/02/2013 05/13/2015 Previous delivery, antepartum condition or complication 04/06/2007 12/16/2010 Unspecified high-risk 04/06/2007 12/16/2010 Thyroid dysfunction of mothe r, complicating , childbirth, or the puerperium, unspecified as to episode of care(648.10) 02/06/2007 12/16/2010 Supervision of other normal 09/27/2006 08/26/2008 documented as of this encounter (statuses as of 02/23/2023) [facility] of Past illness Narrative* Problem Noted Date Resolved Date Pain in throat 05/13/2015 06/10/2015 Thyroid activity decreased 05/13/201506/10 Marital conflict 08/02/2013 05/13/2015 Previous delivery, antepartum condition or complication 04/06/2007 12/16/2010 Unspecified high-risk 04/06/2007 12/16/2010 Thyroid dysfunction of mothe r, complicating , childbirth, or the puerperium, unspecified as to episode of care(648.10) 02/06/2007 12/16/2010 Supervision of other normal 09/27/2006 08/26/2008 documented as of this encounter (statuses as of 03/09/2023) [facility] of Past illness Narrative* Problem Noted Date Resolved Date Pain in throat 05/13/2015 06/10/2015 Thyroid activity decreased 05/13/201506/10 Marital conflict 08/02/2013 05/13/2015 Previous delivery, antepartum condition or complication 04/06/2007 12/16/2010 Unspecified high-risk 04/06/2007 12/16/2010 Thyroid dysfunction of mothe r, complicating , childbirth, or the puerperium, unspecified as to episode of care(648.10) 02/06/2007 12/16/2010 Supervision of other normal 09/27/2006 08/26/2008 documented as of this encounter (statuses as of 03/21/2023) [facility] of Past illness Narrative* Problem Noted Date Resolved Date Pain in throat 05/13/2015 06/10/2015 Thyroid activity decreased 05/13/201506/10 Marital conflict 08/02/2013 05/13/2015 Previous delivery, antepartum condition or complication 04/06/2007 12/16/2010 Unspecified high-risk 04/06/2007 12/16/2010 Thyroid dysfunction of mothe r, complicating , childbirth, or the puerperium, unspecified as to episode of care(648.10) 02/06/2007 12/16/2010 Supervision of other normal 09/27/2006 08/26/2008 documented as of this encounter (statuses as of 03/23/2023) [facility] of Past illness Narrative* Problem Noted Date Resolved Date Pain in throat 05/13/2015 06/10/2015 Thyroid activity decreased 05/13/201506/10 Marital conflict 08/02/2013 05/13/2015 Previous delivery, antepartum condition or complication 04/06/2007 12/16/2010 Unspecified high-risk 04/06/2007 12/16/2010 Thyroid dysfunction of mothe r, complicating , childbirth, or the puerperium, unspecified as to episode of care(648.10) 02/06/2007 12/16/2010 Supervision of other normal 09/27/2006 08/26/2008 documented as of this encounter (statuses as of 03/24/2023) [facility] of Past illness Narrative* Problem Noted Date Diagnosed Date Resolved Date Pain in throat 05/13/2015 06/10/2015 Thyroid activity decreased 05/13/2015 0 06/10/2015 Marital conflict 08/02/2013 05/13/2015 Previous delivery, antepartum condition or complication 04/06/2007 12/16/2010 Unspecified high-risk 04/06/2007 12/16/2010 Thyroid dysfunction of mothe r, complicating , childbirth, or the puerperium, unspecified as to episode of care(648.10) 02/06/2007 12/16/2010 Supervision of other normal 09/27/2006 08/26/2008 documented as of this encounter (statuses as of 04/25/2023) [facility] + Plan note [facility] Evaluation note* Diagnosis Abnormal screening mammogram Abnormal mammogram, unspecified documented in this encounter [facility] note* Diagnosis Abnormal screening mammogram Abnormal mammogram, unspecified documented in this encounter [facility] noteNo [facility]. Other Evaluation note* Diagnosis Pelvic and perineal pain- Primary Unspecified symptom associated with female genital organs Ovarian cyst, left Other and unspecified ovarian cyst documented in this encounter [facility] note* Diagnosis Pelvic and perineal pain- Primary Unspecified symptom associated with female genital organs Ovarian cyst, left Other and unspecified ovarian cyst documented in this encounter [facility] note* Diagnosis Peritoneal adhesions- Primary Peritoneal adhesions (postoperative) (postinfection) Adhesion of omentum Peritoneal adhesions (postoperative) (postinfection) Ovarian cyst, left Other and unspecified ovarian cyst documented in this encounter [facility] [place] [facility]* Diagnosis Ovarian cyst, left- Primary Other and unspecified ovarian cyst Peritoneal adhesions Peritoneal adhesions (postoperative) (postinfection) Pelvic pain in female Unspecified symptom associated with female genital organs Preop examination Preoperative examination, unspecified documented in this encounter [facility] note* Diagnosis Post-op pain- Primary Other acute postoperative pain documented in this encounter [facility] note* Diagnosis Pelvic pain in female- Primary Unspecified symptom associated with female genital organs documented in this encounter [facility] general Narrative - Reported* Type Description Date Medical History sleep apnea, CPAP is 2 yrs old, uses it every night Medical History asthma Medical History hypertension Medical History depression Medical History acid reflux Medical History hypothyroidism Medical History sees income tax consultant fo r chest pain, irregular heart beat, fam Hx, has exercise stress test 2020 Surgical History appendectomy 2019 Surgical History right knee meniscus Surgical History x 3 Surgical History growth removed above right eye as a child Surgical History hysterectomy 2010 Hospitalization History [facility]. Other [facility] general Narrative - Reported* Type Description Date Medical History sleep apnea, CPAP is 2 yrs old, uses it every night Medical History asthma Medical History hypertension Medical History depression Medical History acid reflux Medical History hypothyroidism Medical History sees income tax consultant fo r chest pain, irregular heart beat, fam Hx, exercise stress test 2021 WNL Surgical History appendectomy 2020 Surgical History right knee meniscus Surgical History x 3 Surgical History growth removed above right eye as a child Surgical History hysterectomy 2009 Hospitalization History [facility] chest [facility]. Other [employer] general Narrative - Reported* Type Description Date Medical History sleep apnea, CPAP is 2 yrs old, uses it every night but device is recalled, PCP will order a new one Medical History asthma Medical History hypertension Medical History depression Medical History acid reflux Medical History hypothyroidism Medical History sees income tax consultant fo r chest pain, irregular heart beat, fam Hx, exercise stress test 2021 WNL Surgical History appendectomy 2020 Surgical History right knee meniscus Surgical History x 3 Surgical History growth removed above right eye as a child Surgical History hysterectomy 2009 Hospitalization History [facility] chest pain [facility]. Other history general Narrative - Reported* Type Description Date Medical History sleep apnea, got new CPAP Medical History asthma Medical History hypertension Medical History depression Medical History acid reflux Medical History hypothyroidism Medical History sees income tax consultant fo r chest pain, irregular heart beat, fam Hx, exercise stress test 2021 WNL Surgical History appendectomy 2020 Surgical History right knee meniscus Surgical History x 3 Surgical History growth removed above right eye as a child Surgical History hysterectomy 2010 Surgical History infusion right great toe 022 Hospitalization History [facility] chest [facility]. Other history general Narrative - Reported* Type Description Date Medical History sleep apnea, got new CPAP Medical History asthma Medical History hypertension Medical History depression Medical History acid reflux Medical History hypothyroidism Medical History sees income tax consultant fo r chest pain, irregular heart beat, fam Hx, exercise stress test 2021 WNL Surgical History appendectomy 2020 Surgical History right knee meniscus Surgical History x 3 Surgical History growth removed above right eye as a child Surgical History hysterectomy 2010 Surgical History infusion right great toe 022 Surgical History LAPAROSCOPIC SIMONA-EN -Y GASTRIC BYPASS (RUY-ALISTAIR) [place] Hospitalization History [facility]. Other [employer] general Narrative - Reported* Type Description Date Medical History sleep apnea, got new CPAP Medical History asthma Medical History hypertension Medical History depression Medical History acid reflux Medical History hypothyroidism Medical History sees income tax consultant fo r chest pain, irregular heart beat, fam Hx, exercise stress test 2021 WNL Surgical History appendectomy 2020 Surgical History right knee meniscus Surgical History x 3 Surgical History growth removed above right eye as a child Surgical History hysterectomy 2009 Surgical History infusion right great toe 022 Surgical History LAPAROSCOPIC SIMONA-EN -Y GASTRIC BYPASS (RUY-ALISTAIR) [place] Hospitalization [facility] bdominal pain/ had bladder infection no admission [facility]. [facility] Narrative - Reported* Type Description Date Medical History sleep apnea, got new CPAP Medical History asthma Medical History hypertension Medical History depression Medical History acid reflux Medical History hypothyroidism Medical History sees income tax consultant fo r chest pain, irregular heart beat, fam Hx, exercise stress test 2021 WNL Surgical History appendectomy 2020 Surgical History right knee meniscus Surgical History x 3 Surgical History growth removed above right eye as a child Surgical History partial hysterectomy 2009 Surgical History infusion right great toe 022 Surgical History LAPAROSCOPIC SIMONA-EN -Y GASTRIC BYPASS (RUY-ALISTAIR) [place] Surgical History tubes and ovaries removed Hospitalization [facility] bdominal pain/ had bladder infection no admission [facility]. Other Hospital Discharge instructions Activity on Discharge from 09/22/2022 3:57 PM: * Activity Restrictions : No Strenuous Activity,No Pushing or Pulling,No Bending over,No Sexual Relations,No Heavy Lifting,No Tub Baths * Driving : No Driving Until Permitted by Physician,No Driving While on Pain Medication * Stairs : As tolerated * Activity Instructions : No bending, pushing, pulling, lifting more than 10lbs, twisting for 6 weeks. Walk at least every hour during the day. * Bathing : No Tub Baths,May Shower * May shower in: : 0 * May shower in: : Day(s) [facility] Discharge Plan/Instruction from 09/22/2022 3:57 PM: * Activity Instructions : No bending, pushing, pulling, lifting more than 10lbs, twisting for 6 weeks. Walk at least every hour during the day. * Additional Instructions/Comments : If no CPAP at home, sleep upright and do not take any narcotics for several hours prior to napping or sleeping Chest Pain/Heart Attack Information from 09/22/2022 3:57 PM: * Has Patient had Chest Pain or an GA during this Visit? : No * It is important to understand risk factors for heart disease : It is important to understand risk factors for heart disease * so you can work with your doctor to help prevent further cardiac : so you can work with your doctorto help prevent further cardiac injury. Emergency Response Coordinator Discharge Instructions from 09/22/2022 4:19 PM: * Optoelectronics Engineer Followup : Alphonse Galvan MD ([id number]) - Pulmonology * Optoelectronics Engineer Address and Phone : [address] [place] [phone] * Optoelectronics Engineer Instructions : Please call to schedule an appointment upon discharge if needed. COPD Information from 09/22/2022 3:57 PM: * Does Patient have a problem/diagnosis of COPD? : No Diet Plan/Instructions at Discharge from 09/22/2022 3:57 PM: * Diet Comments : Sips of noncarbonated, low calorie, low to no sugar liquids every 3 to 5 minutes for a goal of 50- 60 oz per day (6-8 cups). Add 1 protien shake per day beginning in the evening 1-2 days after discharge. Increase to 2 protien shakes per day in the second week for a goal of 50-60 grams of protien per day. Make it the last liquid of the day. ED Discharge Education Evaluation from 09/21/2022 8:00 AM: * Educ Topic #1 : Yes Education materials given during your stay from 09/22/2022 3:57 PM: * Learning Barrier : None Medication Plan/Information for Discharge from 09/22/2022 3:57 PM: * Discharge Medication : e-Prescribed Obstructive Sleep Apnea Information from 09/22/2022 3:57 PM: * You have scored 'High Risk' : for Obstructive Sleep Apnea (BALBINA) * Obstructive Sleep Apnea (BALBINA) : is a serious medical condition. Complications can include: * Daytime fatigue and sleepiness : . * Sleep Apnea info 3 : The repeated awakenings associated with sleep apnea make normal, restorative sleep impossible, making severe daytime drowsiness, fatigue and irritability likely. * Sleep Apnea info 5 : People with sleep apnea have an increased risk of motor vehicle and workplace accidents. * Sleep Apnea info 4 : You might have difficulty concentrating and find yourself falling asleep at work, while watching TV or even when driving. * Sleep Apnea info 7 : Children and adolescents with sleep apnea might perform poorly in school or have behavior problems. * Sleep Apnea info 6 : You might also feel quick-tempered, workman or depressed. * High blood pressure or heart problems : . * Sleep Apnea info 9 : Sudden drops in blood oxygen levels that occur during sleep apnea increase blood pressure and strain the cardiovascular system. * Sleep Apnea info 10 : Having obstructive sleep apnea increases your risk of high blood pressure (hypertension). * Sleep Apnea info 11 : Obstructive sleep apnea might also increase your risk of recurrent heart attack, stroke and abnormal heartbeats, such as atrial fibrillation. * Sleep Apnea info 12 : If you have heart disease, multiple episodes of low blood oxygen (hypoxia or hypoxemia) can lead to sudden from an irregular heartbeat. * Type 2 diabetes : . * Sleep Apnea info 14 : Having sleep apnea increases your risk of developing insulin resistance and type 2 diabetes. * Metabolic syndrome : . * Sleep Apnea info 16 : This disorder, which includes high blood pressure, abnormal cholesterol levels, high blood sugar and an increased waist circumference, is linked to a higher risk of heart disease. * Complications with medications and surgery : . * Sleep Apnea info 18 : Obstructive sleep apnea is also a concern with certain medications and general anesthesia. * Sleep Apnea info 19 : People with sleep apnea might be more likely to have complications after major surgery because they're prone to breathing problems, especially when sedated and lying on their backs. * Sleep Apnea info 20 : Before you have surgery, tell your doctor about your sleep apnea and how it'sbeing treated. * Eye problems : . * Sleep Apnea info 22 : Some research has found a connection between obstructive sleep apnea and certain eye conditions, such as glaucoma. * Sleep Apnea info 23 : Eye complications can usually be treated. * Liver problems : . * Sleep Apnea info 25 : People with sleep apnea are more likely to have abnormal results on liver function tests, and their livers are more likely to show signs of scarring (nonalcoholic fatty liver disease). * Sleep-deprived partners : . * Sleep Apnea info 27 : Loud snoring can keep anyone who sleeps near you from getting good rest. * Sleep Apnea info 28 : It's not uncommon for a partner to have to go to another room, or even to another floor of the house, to be able to sleep. * Sleep Apnea info 29 : People with BALBINA may also complain of memory problems, morning headaches, moodswings or feelings of depression, and need to urinate frequently at night (nocturia) * Sleep Apnea info 30 : Additionally, a study by the [facility] shows that sleep apnea may be tied to increased Alzheimer biomarker in the brain. Patient Transfer Information from 09/22/2022 3:57 PM: * Special Instructions : Face away from the water when showering, pat incision dry. Do not submerge incision until okayed by office. * Transition Record Discussed and Provided to Patient Caregiver : Yes Physician Follow-up Plan/Appointments from 09/22/2022 4:18 PM: * Discharge Physician: : Anaid Garsia MD ([id number]) - Surgery * Follow up with Ordering Physician : 2 * Discharge Physician Specialty : Week(s) * Discharge Physician Phone: : [phone] [phone] * Patient stated Primary Care Provider : OTHER * Follow up with PCP in : 2 * Schedule follow up with PCP in: : Week(s) Special Plan/Instructions for Discharge from 09/22/2022 3:57 PM: * Additional Instructions/Comments : If no CPAP at home, sleep upright and do not take any narcotics for several hours prior to napping or sleeping * Special Instructions : Face away from the water when showering, pat incision dry. Do not submerge incision until okayed by office. Stroke/TIA Discharge Information from 09/22/2022 3:57 PM: * Does the Patient Have a Problem/Diagnosis of Stroke this visit? : No Wound Care Instruction for Discharge from 09/22/2022 3:57 PM: * Change Bandage : Keep bandage clean and dry,Do not disturb bandage,Leave wound/incision open to air * Supplies Given : Do not rub any lotions or moisturizers on incisions * Special Instructions : Face away from the water when showering, pat incision dry. Do not submerge incision until okayed by office. [facility] Reason for referral (narrative)* Diagnostic Procedure Only (Routine) - Closed Specialty Diagnoses / Procedures Referred By Alesia lemons Referred To Contact [facility] Diagnoses Abnormal screening mammogram Procedures US BREAST LTD LT US BREAST UNI REAL TIME WITH IMAGE LIMITED Angle Fagan APRN.CNM [address] [place] [address] [facility] [address] [address] Referral ID Status Reason Start Date Expiration Date V isits Requested Visits Authorized [id number] Closed Auto-Generate d Referral 12/16/2021 01/15/2023 1 1 [facility] for visit Narrative* Diagnostic Procedure Only (Routine) - Closed Specialty Diagnoses / Procedures Referred By Alesia lemons Referred To Contact [facility] Diagnoses Abnormal screening mammogram Procedures VIVIANE DIAGNOSTIC LT DIAGNOSTIC MAMMOGRAPHY COMPUTER-AIDED DETCJ UNI Angle Fagan APRN.CNM [address] [place] [address] [facility] [address] [place] [address] Referral ID Status Reason Start Date Expiration Date V isits Requested Visits Authorized [id number] Closed Auto-Generate d Referral 12/16/2021 01/15/2023 1 1 [facility] for visit Narrative* Diagnostic Procedure Only (Routine) - Closed Specialty Diagnoses / Procedures Referred By Cristianac t Referred To Contact [facility] Diagnoses Abnormal screening mammogram Procedures US BREAST LTD LT US BREAST UNI REAL TIME WITH IMAGE LIMITED Angle Fagan APRN.CNM [address] [place] [address] [facility] [address] [place] [address] Referral ID Status Reason Start Date Expiration Date V isits Requested Visits Authorized [id number] Closed Auto-Generate d Referral 12/16/2021 01/15/2023 1 1 [facility] for visit Narrativesurgery education, [facility] Other Summary Purpose Family History No Family History Records FoundNo Family History Records FoundNo Family History Records FoundNo Family History Records Found Advance Directives No Advanced Directives Records FoundNo Advanced Directives Records FoundNo Advanced Directives Records FoundNo Advanced Directives Records Found Reason for Referral Specialty Diagnoses / Procedures Referred By Cristianac t Referred To Contact Diagnoses Peritoneal adhesions Adhesion of omentum Ovarian cyst, left Procedures CONSULT TO MINIMALLY INVASIVE GYNECOLOGIC SURGERY OFFICE/OUTPATIENT [facility] 60-74 MINUTES Gudelia Mi MD [address] [place] [address] Referral ID Status Reason Start Date Expiration Date Visits Requested Visits Authorized [id number] Authorized PCP Requested Referral Auto-Generate d Referral 03/23/2023 03/22/2024 1 1 Specialty Diagnoses / Procedures Referred By Cristianac t Referred To Contact [facility] Diagnoses Pelvic and perineal pain Procedures MRI PELVIS WO/W IVCON MRI PELVIS W/O & W/CONTRAST MATERIAL Gudelia Mi MD [address] [place] [address] [facility] Referral ID Status Reason Start Date Expiration Date Visits Requested Visits Authorized [id number] Pending Review Auto-Generat ed Referral 02/08/2023 03/09/2024 1 1 Additional Source Comments Source Comments (unrecognize d section and content) In the event this informatio n is protected by the Federal Confidentiality of Alcohol and Drug Abuse Patient Records regulations: The Federal rules restrict any use of the information to criminally investigate or prosecute any alcohol or drug abuse patient.[facility] the event this information is protected by the Federal Confidentiality of Alcohol and Drug Abuse Patient Records regulations: The Federal rules restrict any use of the information to criminally investigate or prosecute any alcohol or drug abuse patient.[facility] the event this information is protected by the Federal Confidentiality of Alcohol and Drug Abuse Patient Records regulations: The Federal rules restrict any use of the information to criminally investigate or prosecute any alcohol or drug abuse patient.[facility] the event this information is protected by the Federal Confidentiality of Alcohol and Drug Abuse Patient Records regulations: The Federal rules restrict any use of the information to criminally investigate or prosecute any alcohol or drug abuse patient.[facility] the event this information is protected by the Federal Confidentiality of Alcohol and Drug Abuse Patient Records regulations: The Federal rules restrict any use of the information to criminally investigate or prosecute any alcohol or drug abuse patient.[facility] the event this information is protected by the Federal Confidentiality of Alcohol and Drug Abuse Patient Records regulations: The Federal rules restrict any use of the information to criminally investigate or prosecute any alcohol or drug abuse patient.[facility] the event this information is protected by the Federal Confidentiality of Alcohol and Drug Abuse Patient Records regulations: The Federal rules restrict any use of the information to criminally investigate or prosecute any alcohol or drug abuse patient.[facility] Hospital[facility] the event this information is protected by the Federal Confidentiality of Alcohol and Drug Abuse Patient Records regulations: The Federal rules restrict any use of the information to criminally investigate or prosecute any alcohol or drug abuse patient.[facility] HospitalIn the event this information is protected by the Federal Confidentiality of Alcohol and Drug Abuse Patient Records regulations: The Federal rules restrict any use of the information to criminally investigate or prosecute any alcohol or drug abuse patient.[facility] HospitalIn the event this information is protected by the Federal Confidentiality of Alcohol and Drug Abuse Patient Records regulations: The Federal rules restrict any use of the information to criminally investigate or prosecute any alcohol or drug abuse patient.[facility] HospitalIn the event this information is protected by the Federal Confidentiality of Alcohol and Drug Abuse Patient Records regulations: The Federal rules restrict any use of the information to criminally investigate or prosecute any alcohol or drug abuse patient.[facility] HospitalIn the event this information is protected by the Federal Confidentiality of Alcohol and Drug Abuse Patient Records regulations: The Federal rules restrict any use of the information to criminally investigate or prosecute any alcohol or drug abuse patient.[facility] HospitalIn the event this information is protected by the Federal Confidentiality of Alcohol and Drug Abuse Patient Records regulations: The Federal rules restrict any use of the information to criminally investigate or prosecute any alcohol or drug abuse patient.[facility] HospitalIn the event this information is protected by the Federal Confidentiality of Alcohol and Drug Abuse Patient Records regulations: The Federal rules restrict any use of the information to criminally investigate or prosecute any alcohol or drug abuse patient.[facility] HospitalIn the event this information is protected by the Federal Confidentiality of Alcohol and Drug Abuse Patient Records regulations: The Federal rules restrict any use of the information to criminally investigate or prosecute any alcohol or drug abuse patient.[facility] Care Teams (unrecognized sec tion and content) [employer] Relationship Specialty Start Date End Date Carlos Chris Chi PCP - General Gerontology 12/28/16 [employer] Relationship Specialty Start Date End Date Carlos Chris Chi PCP - General Gerontology 12/28/16 [employer] Relationship Specialty Start Date End Date Aries, Carlos Chi PCP - General Gerontology 12/28/16 [employer] Relationship Specialty Start Date End Date Ivelisse Phillip MD [address] [place], [place] [id number] PCP - General Internal Medicine 11/17/10 12/27/16 Aries Carlos Chi [address] [place], [place] [address] [phone] PCP - General Gerontology 12/28/16 [employer] Relationship Specialty Start Date End Date Aries Carlos Chi PCP - General Gerontology 12/28/16 [employer] Relationship Specialty Start Date End Date Aries Carlos Chi PCP - General Gerontology 12/28/16 [employer] Equipment Relationship Specialty Start Date End Date Carlos Chris Chi PCP - General Gerontology 12/28/16 Electric[employer] Equipment Relationship Specialty Start Date End Date Aries Carlos Chi PCP - General Gerontology 12/28/16 Electric[employer] Equipment Relationship Specialty Start Date End Date Aries, Carlos Chi PCP - General Gerontology 12/28/16 Electric[employer] Equipment Relationship Specialty Start Date End Date Aries Carlos Chi PCP - General Gerontology 12/28/16 Electric[employer] Equipment Relationship Specialty Start Date End Date Carlos Chris Chi PCP - General Gerontology 12/28/16 REASON FOR VISIT (unrecogniz ed section and content) 6 MOS [facility] Reason Comments Orders Reason Comments Pre-Op Visit Reason Comments Post Op Consult to [facility] Reason Comments Appointment Specialty Diagnoses / Procedures Referred By Contac t Referred To Contact Diagnoses Peritoneal adhesions Adhesion of omentum Ovarian cyst, left Procedures CONSULT TO MINIMALLY INVASIVE GYNECOLOGIC SURGERY OFFICE/OUTPATIENT [facility] 60-74 MINUTES Gudelia Mi MD [address] [place] [address] Referral ID Status Reason Start Date Expiration Date V isits Requested Visits Authorized [id number] Closed PCP Requested Referral Auto-Generated Referral 03/23/2023 03/22/2024 1 1 Reason Comments Post Op Pain Reason Comments Medication Question Reason Comments Post Op 3 weeks Goals (unrecognized section and content) INFORMATION SOURCE (unrecogn ized section and content) DATE CREATED AUTHOR AUTHOR'S ORGANIZ ATION 01/14/2023 [facility] DATE CREATED AUTHOR AUTHOR'S ORGANIZ ATION 05/11/2023 [facility] DATE CREATED AUTHOR AUTHOR'S ORGANIZ ATION 05/31/2023 [facility] FOR RECORDS PERTAINING TO PATIENTS WHO ARE OR HAVE BEEN ENROLLED IN A CHEMICAL DEPENDENCY/SUBSTANCEABUSE PROGRAM, SOME INFORMATION MAY BE OMITTED. This clinical summary was aggregated from multiple sources. Caution should be exercised in using it in the provision of clinical care. This summary normalizes information from multiple sources, and as a consequence, information in this document may materially change the coding, format and clinical context of patient data. In addition, data may be omitted in some cases. CLINICAL DECISIONS SHOULD BE BASED ON THE PRIMARY CLINICAL RECORDS. [employer] provides no warranty or guarantee of the accuracy or completeness of information in this document.
== END | disposition home or self-care (01) ==
LOC: LAB 16:56
PROVIDERS: PCP Family Medicine Geriatric Medicine; Referring Provider Family Medicine Geriatric Medicine; Visit Provider Family Medicine Geriatric Medicine
DX: R61 Generalized hyperhidrosis (principal)
CPT/HCPCS: 36415; 80048; 85025; 85652; 86140

== ENCOUNTER → 2023-10-26 | Outpatient (CLI) | payer MEDICAID, SELFPAY ==
--- OUTSIDE RECORDS SUMMARY | 2023-10-26 09:03 | XMS RPT_ITS | CCD ---
Author Name Unknown Address [address] [place] [address] Organization [facility] Care Team Providers Care 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 5 Teacher Name Role Phone Merly Bob NP Unavailable [...] Unavailable Aries, Carlos Chi Primary Care Provider [phone] Ivelisse Phillip MD Primary Care Provider Aries, [...] Facility (4 sources) citalopram drug allergy 6 [facility] Work Phone: (20 sources) lithium; Translations: [LITHIUM] drug allergy 6 GI Upset [facility] Work Phone: (17 sources) Citalopram; Translations: [CITALOPRAM] Drug Allergy 3 GI Upset [facility] Work Phone: (17 sources) Codeine; Translations: [CODEINE] Drug Allergy 3 Other: See Comments [facility] (15 sources) Non-steroidal anti-inflammato ry agent; Translations: [NSAIDS (NON-STEROIDAL ANTI-INFLAMMATO RY DRUG)] Drug Allergy 3 Other: See Comments [facility] NEGATED: Highlighted row has been ruled out! (3 sources) natural latex rubber; Translations: [LATEX, NATURAL RUBBER] Drug allergy (disorder) [facility] [place] NEGATED: Highlighted row has been ruled out! 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 [employer]. Other 05-26-2023 09:00-0400 Body mass index (BMI) [Ratio] 25.58 kg/m2 ANAID RUY-ALISTAIR Other [facility] [employer]. Other 05-26-2023 09:00-0400 Body weight 59.42 kg ANAID RUY-ALISTAIR Other [facility] [employer]. Other 05-26-2023 08:00-0400 Diastolic blood pressure 79 mm[Hg] ANAID RUY-ALISTAIR Other [facility] [employer] [facility]. Other 05-26-2023 08:00-0400 Heart rate 63 /min ANAID RUY-ALISTAIR Other [facility] Other 05-26-2023 08:00-0400 Systolic blood pressure 121 mm[Hg] ANAID RUY-ALISTAIR Other [facility] [employer]. Other 04-25-2023 10:08-0400 Diastolic blood pressure 83 mm[Hg] Sylvia Billow DO Work Phone: [facility] 04-25-2023 10:08-0400 Heart rate 70 /min Sylvia Billow DO Work Phone: [facility] 04-25-2023 10:08-0400 Systolic blood pressure 121 mm[Hg] Sylvia Billow DO Work Phone: [facility] 03-23-2023 08:46-0400 Body weight 65.32 kg Gudelia Mi MD Work Phone: [facility] 03-23-2023 08:46-0400 Diastolic blood pressure 62 mm[Hg] Gudelia Mi MD Work Phone: [facility] 03-23-2023 08:46-0400 Systolic blood pressure 110 mm[Hg] Gudelia Mi MD Work Phone: [facility] 03-09-2023 09:19-0400 Body height 151.8 cm Gudelia Mi MD Work Phone: [facility] 03-09-2023 09:19-0400 Body weight 61.69 kg Gudelia Mi MD Work Phone: [facility] 03-09-2023 09:19-0400 Diastolic blood pressure 60 mm[Hg] Gudelia Mi MD Work Phone: [facility] 05-31-2023 09:19-0400 Heart rate 68 /min Gudelia Mi MD Work Phone: [facility] 03-09-2023 09:19-0400 Respiratory rate 16 /min Gudelia Mi MD Work Phone: [facility] 03-09-2023 09:19-0400 SaO2% (BldA) [Mass fraction] 99 % Gudelia Mi MD Work Phone: [facility] 03-09-2023 09:19-0400 Systolic blood pressure 110 mm[Hg] Gudelia Mi MD Work Phone: [facility] 11-01-2022 16:30-0500 Body height 152.4 cm SPARKLE JENNIFER Other [facility] [employer] Other 11-01-2022 16:30-0500 Body mass index (BMI) [Ratio] 33.78 kg/m2 SPARKLE FISTEK Other [facility] [employer] Other 11-01-2022 16:30-0500 Body weight 78.47 kg SPARKLE FISTEK Other [facility] [employer] Other 11-01-2022 16:30-0500 Diastolic blood pressure 85 mm[Hg] SPARKLE FISTEK Other [facility] [employer] Other 11-01-2022 16:30-0500 Heart rate 76 /min SPARKLE FISTEK Other [facility] [employer] Other 11-01-2022 16:30-0500 Systolic blood pressure 125 mm[Hg] SPARKLE FISTEK Other [facility] [employer] Other 11-01-2022 15:30-0500 Body height 152.4 cm ANAID RUY-ALISTAIR Other [facility] [employer] Other 11-01-2022 15:30-0500 Body mass index (BMI) [Ratio] 33.78 kg/m2 ANAID RUY-ALISTAIR Other [facility] [employer]. Other 11-01-2022 15:30-0500 Body weight 78.47 kg ANAID RUY-ALISTAIR Other [facility] [email or web address] Other 10-18-2022 10:00-0500 Body height 152.4 cm SPARKLE FISTEK Other [facility] [employer] Other 10-18-2022 10:00-0500 Body mass index (BMI) [Ratio] 33.2 kg/m2 SPARKLE FISTEK Other [facility] [employer] Other 10-18-2022 10:00-0500 Body weight 77.11 kg SPARKLE FISTEK Other [facility] [employer] Other 10-18-2022 10:00-0500 Diastolic blood pressure 79 mm[Hg] SPARKLE FISTEK Other [facility] [employer] Other 10-18-2022 10:00-0500 Heart rate 79 /min SPARKLE FISTEK Other [facility] [employer] Other 10-18-2022 10:00-0500 Systolic blood pressure 112 mm[Hg] SPARKLE FISTEK Other [facility] [employer] Other 10-05-2022 15:30-0500 Body height 152.4 cm ANAID RUY-ALISTAIR Other [facility] [employer] Other 10-05-2022 15:30-0500 Body mass index (BMI) [Ratio] 33.59 kg/m2 ANAID RUY-ALISTAIR Other [facility] [employer] Other 10-05-2022 15:30-0500 Body weight 78.02 kg ANAID RUY-ALISTAIR Other [facility] [employer] Other 10-05-2022 15:30-0500 Diastolic blood pressure 82 mm[Hg] SPARKLE FISTEK Other [facility] [employer] Other 10-05-2022 15:30-0500 Heart rate 92 /min SPARKLE FISTEK Other [facility] [employer] Other 10-05-2022 15:30-0500 Systolic blood pressure 117 mm[Hg] SPARKLE FISTEK Other [facility] [employer] Other 09-22-2022 15:57-0500 Body height 152.4 cm MD Anaid Garsia MD [employer] 09-22-2022 15:57-0500 Body mass index (BMI) [Ratio] 39.18 kg/m2 MD Anaid Garsia MD [employer] 09-22-2022 15:57-0500 Body temperature 97.34 [degF] MD Anaid Garsia MD [employer] 09-22-2022 15:57-0500 Body weight 91 kg MD Anaid Garsia MD [facility] [place] 09-22-2022 15:57-0500 Diastolic blood pressure 77 mm[Hg] MD Anaid Garsia MD [facility] [place] 09-22-2022 15:57-0500 Heart rate 77 /min MD Anaid Garsia MD [facility] [place] 09-22-2022 15:57-0500 Inhaled oxygen concentration 97 % MD Anaid Garsia MD [facility] [place] 09-22-2022 15:57-0500 Respiratory rate 18 /min MD Anaid Garsia MD [facility] [place] 09-22-2022 15:57-0500 Systolic blood pressure 122 mm[Hg] MD Anaid Garsia MD [facility] [place] 08-26-2022 11:00-0500 Diastolic blood pressure 75 mm[Hg] ZANDRA DONCA Other [facility] Other 08-26-2022 11:00-0500 Heart rate 91 /min ZANDRA DONCA Other [facility] Other 08-26-2022 11:00-0500 Respiratory rate 16 /min ZANDRA DONCA Other [facility] Other 08-26-2022 11:00-0500 Systolic blood pressure 124 mm[Hg] ZANDRA DONCA Other [facility] Other 08-26-2022 09:00-0500 Body height 152.4 cm ANAID GARSIA Other [facility] Other 08-26-2022 09:00-0500 Body mass index (BMI) [Ratio] 34.95 kg/m2 ANAID RUY-ALISTAIR Other [facility] [employer]. Other 08-26-2022 09:00-0500 Body weight 81.19 kg ANAID RUY-ALISTAIR Other [facility] [employer] Other 07-23-2022 10:30-0400 Body height 152.4 cm ANAID RUY-ALISTAIR Other [facility] Other 07-23-2022 10:30-0400 Body mass index (BMI) [Ratio] 37.3 kg/m2 ANAID RUY-ALISTAIR Other [facility] Other 07-23-2022 10:30-0400 Body weight 86.64 kg ANAID RUY-ALISTAIR Other [facility] Other 06-23-2022 17:30-0400 Body height 152.4 cm ZANDRA DONCA Other [facility] [employer] Other 06-23-2022 17:30-0400 Body mass index (BMI) [Ratio] 37.88 kg/m2 ZANDRA DONCA Other [facility] [employer] Other 06-23-2022 17:30-0400 Body weight 88 kg ZANDRA DONCA Other [facility] [employer] Other 06-23-2022 17:00-0400 Diastolic blood pressure 79 mm[Hg] ZANDRA DONCA Other [facility] [employer] Other 06-23-2022 17:00-0400 Heart rate 96 /min ZANDRA RUBIN Other [facility] [employer] Other 06-23-2022 17:00-0400 Respiratory rate 16 /min ZANDRA SPAULDINGCA Other [facility] [employer] Other 06-23-2022 17:00-0400 Systolic blood pressure 130 mm[Hg] ZANDRA RUBIN Other [facility] Other 05-27-2022 11:45-0400 Body height 152.4 cm ZANDRA RUBIN Other [facility] [employer] Other 05-27-2022 11:45-0400 Body mass index (BMI) [Ratio] 37.69 kg/m2 ZANDRA RUBIN Other [facility] [employer] Other 05-27-2022 11:45-0400 Body weight 87.54 kg ZANDRA RUBIN Other [facility] Other 05-27-2022 11:00-0400 Respiratory rate 16 /min ZANDRA SPAULDINGCA Other [facility] Other 05-27-2022 09:45-0400 Diastolic blood pressure 69 mm[Hg] ZANDRA SPAULDINGCA Other [facility] Other 05-27-2022 09:45-0400 Heart rate 89 /min ZANDRA SPAULDINGCA Other [facility] Other 05-27-2022 09:45-0400 Systolic blood pressure 126 mm[Hg] ZANDRAFARZANEH SPAULDINGCA Other [facility] [employer] Other 05-05-2022 13:00-0400 Body height 152.4 cm ZANDRA SPAULDINGCA Other [facility] [employer] Other 05-05-2022 13:00-0400 Body mass index (BMI) [Ratio] 39.06 kg/m2 ZANDRA DONCA Other [facility] [employer] Other 05-05-2022 13:00-0400 Body weight 90.72 kg ZANDRA SPAULDINGCA Other [facility] [email or web address] Other 04-05-2022 10:30-0400 Body height 152.4 cm ANAID RUY-ALISTAIR Other [facility] [email or web address] Other 04-05-2022 10:30-0400 Body mass index (BMI) [Ratio] 39.06 kg/m2 ANAID RUY-ALISTAIR Other [facility] [employer] Other 04-05-2022 10:30-0400 Body weight 90.72 kg ANAID RUY-ALISTAIR Other [facility] [employer] Other 03-17-2022 17:00-0400 Body height 152.4 cm ZANDRA DONCA Other [facility] [email or web address] Other 03-17-2022 17:00-0400 Body mass index (BMI) [Ratio] 40.03 kg/m2 ZANDRA DONCA Other [facility] [employer] Other 03-17-2022 17:00-0400 Body weight 92.99 kg ZANDRA RUBIN Other [facility] [employer] Other 03-02-2022 14:30-0400 Body height 152.4 cm ANAID RUY-ALISTAIR Other [facility] [employer] Other 03-02-2022 14:30-0400 Body mass index (BMI) [Ratio] 39.64 kg/m2 ANAID RUY-ALISTAIR Other [facility] [email or web address] Other 03-02-2022 14:30-0400 Body weight 92.08 kg ANAID RUY-ALISTAIR Other [facility] [employer] Other 03-02-2022 14:00-0400 Diastolic blood pressure 71 mm[Hg] ZANDRA SPAULDINGCA Other [facility] [employer] Other 03-02-2022 14:00-0400 Heart rate 81 /min ZANDRA SPAULDINGCA Other [facility] [employer] Other 03-02-2022 14:00-0400 Respiratory rate 16 /min ZANDRA SPAULDINGCA Other [facility] [email or web address] Other 03-02-2022 14:00-0400 Systolic blood pressure 116 mm[Hg] ZANDRA DONCA Other [facility] [employer] Other 02-02-2022 17:15-0400 Body height 152.4 cm ZANDRA SPAULDINGCA Other [facility] [employer] Other 02-02-2022 17:15-0400 Body mass index (BMI) [Ratio] 40.62 kg/m2 ZANDRA RUBIN Other [facility] [employer] Other 02-02-2022 17:15-0400 Body weight 94.35 kg ZANDRA RUBIN Other [facility] [employer] Other 02-02-2022 17:15-0400 Diastolic blood pressure 78 mm[Hg] ZANDRA RUBIN Other [facility] [employer] Other 02-02-2022 17:15-0400 Heart rate 84 /min ZANDRA RUBIN Other [facility] [employer] Other 02-02-2022 17:15-0400 Respiratory rate 16 /min ZANDRA RUBIN Other [facility] [employer] Other 02-02-2022 17:15-0400 Systolic blood pressure 111 mm[Hg] ZANDRA RUBIN Other [facility] [employer] Other 02-02-2022 16:15-0400 Body height 152.4 cm ANAID RUY-ALISTAIR Other [facility] Other 02-02-2022 16:15-0400 Body mass index (BMI) [Ratio] 40.62 kg/m2 ANAID RUY-ALISTAIR Other [facility] [employer] Other 02-02-2022 16:15-0400 Body weight 94.35 kg ANAID RUY-ALISTAIR Other [facility] Other 02-10-2017 13:15-0400 BMI (Body Mass Index) 40.39 kg/m2 Merly Bob NP [facility] Work Phone: 02-10-2017 13:15-0400 Body Temperature 98.1 [degF] Merly Bob NP [facility] Work Phone: 02-10-2017 13:15-0400 BP Diastolic 81 mm[Hg] Merly Bob NP [facility] Work Phone: 02-10-2017 13:15-0400 BP [...] 13:15-0400 Weight 96.98 kg Merly Bob NP [facility] Work Phone: 09-22-2016 13:36-0500 BMI (Body Mass Index) 39.3 kg/m2 Merly Bob NP [facility] Work Phone: 09-22-2016 13:36-0500 Body Temperature 98.4 [degF] Merly Bob NP [facility] Work Phone: 09-22-2016 13:36-0500 BP Diastolic 87 mm[Hg] Merly Bob NP [facility] Work Phone: 09-22-2016 13:36-0500 BP Systolic 125 mm[Hg] Merly Bob NP [facility] Work Phone: 09-22-2016 13:36-0500 BSA (Body Surface Area) 1.92 m2 Merly Bob NP [facility] Work Phone: 09-22-2016 13:36-0500 Height 154.94 cm Merly Bob NP [facility] Work Phone: 09-22-2016 13:36-0500 Pulse (Heart Rate) 90 /min Merly Bob NP [facility] Work Phone: 09-22-2016 13:36-0500 Pulse Oximetry 100 % Merly Bob NP [facility] Work Phone: 09-22-2016 13:36-0500 Respiratory Rate 16 /min Merly Bob NP [facility] Work Phone: 09-22-2016 13:36-0500 Weight 94.35 kg Merly Bob NP [facility] Work Phone: 09-22-2016 13:36-0500 Weight 94.55 kg Merly Bob NP [facility] Work Phone: Encounters Encounter Date Encounter Type Care Provider Facility Start: 05-30-2023 End: 05-30-2023 ambulatory CARLOS CHI ARIES Facility:[facility] Start: 05-30-2023 End: 05-30-2023 Patient encounter procedure Sylvia Roseanna Work Phone: Obstetrics/Gynecology Procedures Date Procedure Procedure Detail Performing Clinician Start: 09-20-2022 Completed LAPAROSCOP IC SIMONA EN Y GASTRIC BYPASS, by Felisa Lombardo, on 09/20/2022 12:20 PM MD Anaid Garsia MD Start: 01-19-2022 Us breast uni real t katina with image limited Angle Fagan [employer] Work Phone: Start: 01-19-2022 VIVIANE KAYLAHG W EMANI LT Cour haile Fagan [employer] Work Phone: Start: 12-14-2021 Mammography [facility] 1 Work Phone: Start: 02-10-2017 End: 02-10-2017 Dietary management education, guidance, and counseling Merly Bob NP Start: 02-10-2017 End: 02-10-2017 Thyroid stimulating hormone (TSH) Merly Bob [employer] NETWORK ENGINE[employer] Work Phone: Start: 02-10-2017 End: 02-10-2017 Thyroxine (T4) free Merly Bob [employer] Work Phone: Start: 09-19-2013 Melly moreno MD [...] Author Start: 05-03-2026 DIABETES SCREEN DIABETES SCREEN [facility] Start: 05-30-2024 BP CONTROLLED (<130/80) BP CON TROLLED (<130/80) [facility] Start: 05-03-2024 SERUM CREATININE SERUM CREATININE Cl [facility] Start: 03-23-2024 BP CONTROLLED (<130/80) BP CON TROLLED (<130/80) [facility] Start: 03-09-2024 BP CONTROLLED (<130/80) BP CON TROLLED (<130/80) [facility] Start: 02-04-2024 BP CONTROLLED (<130/80) BP CON TROLLED (<130/80) [facility] Start: 06-10-2023 Influenza vaccination INFLUENZA (#1) [facility] Start: 02-08-2023 End: 04-10-2023 Cancer Ag 19-9 [Units/volume] in Serum or Plasma [facility] Work Phone: Immunizations Immunization Date Immunization Notes Care Provider Luis dietrich 07-12-2022 COVID-19 (Moderna) L ow Dose Booster SPARKLE RODRIGUEZ Other [facility] [employer] Other 07-12-2022 influenza, injectabl e, quadrivalent, contains preservative SPARKLE FISTEK Other [facility] Other 07-28-2021 COVID-19 (Moderna) 3 ANAID BE N-ALISTAIR Other [facility] Other 06-23-2021 influenza, injectabl e, quadrivalent, contains preservative ANAID RUY-ALISTAIR Other [facility] Other 01-17-2021 COVID-19 (Pfizer) 2 (purple) ANAID RUY-ALISTAIR Other [facility] Other 12-25-2020 COVID-19 (Pfizer) 1 (purple) ANAID RUY-ALISTAIR Other [facility] Other 08-24-2016 influenza, seasonal, injectable [facility] 1 Work Phone: [facility] Work Phone: 08-24-2016 pneumococcal conjuga te vaccine, 13 valent [facility] 1 Work Phone: [facility] Work Phone: 02-20-2014 tetanus toxoid, reduced diphtheria toxoid, and acellular pertussis vaccine, adsorbed ANAID RUY-ALISTAIR Other [facility] Other 10-23-2012 influenza virus vaccine, unspecified formulation Us 1 Work Phone: [facility] Work Phone: 10-23-2012 tetanus toxoid, reduced diphtheria toxoid, and acellular pertussis vaccine, adsorbed Us 1 Work Phone: [facility] Work Phone: Payers Date Payer Category Payer Medicaid [id number] 2018 Medicaid [employer] [facility] [facility] [id number] 2018-Present [phone] [address] [place] [address] Medicaid [id number] 2011 Medicaid [id number] 1977 Unknown [id number] 1975 Unknown [id number] 1977 Unknown [id number] 1977 Unknown [id number] 1977 Unknown [id number] Medicaid [id number] Social History Date Type Detail Facility Start: 02-02-2022 End: 05-26-2023 Tobacco smoking status HIIS Never smoked tobacco [facility] Work Phone: Start: 09-01-2020 End: 05-30-2023 Alcohol intake Current non-drinker of alcohol (finding) [facility] Start: 1975 Sex Assigned At Not on file [facility] Start: 01-09-2022 End: 01-19-2022 Exposure to SARS-CoV-2 (event) Not sure [facility] Start: 03-09-2023 End: 04-25-2023 Sex Assigned At [facility] [place] Start: 01-13-2023 Tobacco use and exposure Smokeless tobacco non-user [facility] Start: 03-09-2023 End: 04-25-2023 History of Social function [facility] National Score (1-100), lower number is lower risk 86 [facility] Medical Equipment Procedure Code Equipment Code Equipment Origin al Text Equipment Identifier Dates LAPAROSCOPIC SIMONA EN Y GASTRIC BYPASS STAPLE, IMPLANTABLE (GDW) LAPAROSCOPIC SIMONA EN Y GASTRIC BYPASS ()[id number] FDA Start: 09-20-2022 End: 09-20-2022 Clinical Notes 05-13-2015 to 05-30-2023 Sylvia Ayala DO - 05/30/2023 1:00 PM EDT Note Date & Type Note Facility 05-30-2023 Note HNO ID: [id number] Author: Sylvia Ayala DO Service: ? Author Type: Physician Type: Progress Notes Filed: 05/30/2023 1:22 PM Note Text: [facility] [place] SECTION FOR MINIMALLY INVASIVE GYNECOLOGIC SURGERY OUTPATIENT [...] pt agrees with plan Sylvia Ayala DO [facility] 05-30-2023 History of Present illness Narrative Images from the original note were not included. [facility] [place] SECTION FOR MINIMALLY INVASIVE GYNECOLOGIC SURGERY OUTPATIENT [...] Sylvia Ayala DO documented in this encounter [facility]. Other 08-03-2023 Miscellaneous Notes* Telephone [...] with Dr. Ayala on 05/06/2023. Routing to [place] pool. Please advise if it is OK for patient to start estrogen patches. Gloria Alexander RN May 12, 2023 9:30 AM * [facility] 05/11/2023 2:52 PM EDT Reason for call: other - Provider name: Dr. Ayala Additional comments: Patient was told she will not need estrogen pills and she was given a prescription for estrogen. Please call and advise the patient. Recommendation: routed to nurse triage pool [facility] NoteHNO ID: [id number] Author: Sylvia Ayala DO Service: ? Author Type: Physician Type: Progress Notes Filed: 05/10/2023 12:33 PM Note Text: [facility]08-01-2023 History of Present illness Narrative* Sylvia Ayala DO - 05/10/2023 12:32 PM EDT j documented in this [facility]Prem[facility] Miscellaneous Notes* Telephone Encounter - Zuleyma Jewell [...] her follow up appointment Thank you Sanket [place] DO * Telephone Encounter - Yudith Mccauley [...] home with rx for Estrogen, none ordered. [facility] pharmacy preferred if appropriate. Advised will forward to [place] Pool Yudith Mccauley RN * Telephone Encounter [...] has questions regarding estrogen therapy. Please advise: [phone] Recommendation: routed to nurse triage pool Loan Bell documented [facility] Miscellaneous Notes* Telephone Encounter - Yudith Mccauley RN - 05/09/2023 1:43 PM EDT Duplicate encounter - see today's 05/09/23 TE Closing chart. Yudith L Varnis RN documented in this encounterPrem[facility]-28-2023 NoteHNO ID: [id number] Author: Shannan Emerson, CYNDI Service: ? Author Type: Registered Nurse Type: Nursing Progress Note Filed: 05/06/2023 4:38 PM Note Text: 1630 Pt able to void. [id number] NoteHNO ID: [id number] Author: Rylan Valdez APRN.CRNA Service: Anesthesiology Author Type: Nurse Logistics Support Type: Anesthesia Procedure Notes Filed: 05/06/2023 12:33 PM Note Text: ANESTHESIOLOGY PROCEDURE NOTE Airway General Information Procedure Start Time/Medication Administration: 05/06/2023 12:27 PM Patient location during procedure: OR Timeout Performed Pre-procedure: timeout performed Consent Obtained: Yes Patient identity confirmed: arm band, patient and family Staffing WEB ANALYTICS SPECIALIST: Rylan Valdez APRN.WEB ANALYTICS SPECIALIST Performed by: SRINIVAS Indications and Patient Condition [...] attempts at approach: 1 SIGNATURE: Rylan Valdez APRN.WEB ANALYTICS SPECIALIST PATIENT NAME: Romain Mendoza DATE: May 06, 2023 TIME: 12:30 PM CSN: [id number] NoteHNO ID: [id number] Author: Liset Lamb RN Service: ? Author [...] patient have an advanced directive: No Does [facility] have a copy of the patient's advanced [...] prescribed by anesthesia, internal medicine, surgeon, or LINUX NETWORK ENGINEER Stop NSAIDs, Aspirin (ASA), vitamins, herbal supplements, [...] jewelry, body piercing, makeup, contacts, lotions, nail yakut on fingers, or anything in hair on arrival to surgery Wear low healed shoes and loose fitting clothing Leave all valuables at home or with a family member Directions to [facility] Parking/parking validation on the day prior to [...] - IV pain medication after surgery, IV DIVERSITY MANAGER if ordered by MD, discharged home with [...] if after hours patient instructed to call chemical unit operator and ask for occupational therapy teacher game protector resident. NANDINI program offered to patient: No Additional teaching as indicated by patient/family learning needs. PATIENT LEARNING EVALUATION AND FOLLOW UP PLAN: Patient and/or family express understanding of upcoming surgery, pre-operative preparation, the operative process, and post-operative instructions. Follow up plan: Complete - No n (more content not included)...[facility]07-17-2023 NoteHNO ID: [id number] Author: Sylvia Ayala, DO Service: ? Author Type: Physician Type: Progress Notes Filed: 04/25/2023 12:31 PM Note Text: [facility] [place] SECTION FOR MINIMALLY INVASIVE GYNECOLOGIC SURGERY OUTPATIENT VISIT DATE 04/25/2023 OUTPATIENT VISIT TYPE NEW PRIMARY CARE PHYSICIAN: Carlos Chris MD [id number] [address] REFERRING PHYSICIAN: Gudelia Mi Consultation requested by [...] Cyst with septations and an internal hyperechoic [id number] area 03/17/23: diagnostic laparoscopy Patient underwent diagnostic laparoscopy at [facility] on 03/17/2023 for left ovarian cyst and pelvic pain. The left ovary and tube were adhered at the pelvic brim densely. There are extensive omental adhesions. I was unable to visualize the cuff or the right ovary/tube. I was unable to complete the surgery laparoscopically and ended the surgery. Recommend consult w/ MIGS to consider surgical removal. Gudelia Mi MD [facility] hx: grandma (mom side) uterine Grandma (dad side) ovarian cancer Surghx: WOJCIECH, C/S x 3, bariatric surgery, diagnostic laparoscopy, right toe surgery Past Gynecologic History: Undercover Cop History LMP: 03/12/2011, Hysterectomy Age at Menarche: Age at First : Age at Menopause: Undercover Cop History Comments: Sexual Activity: Yes; Male; hysterectomy Contraception: Surgical Past Obstetrical History: OB History T5 L5 SAB0 IAB0 Ectopic0 Multiple0 Live Births5 Past Medical History: PAST MEDICAL HISTORY Diagnosis Date Asthma 03/2016 + VICKIE at [facility]. Depressive disorder, not elsewhere classified Encounter [...] BYPASS HX 09/20/2022 Reun Y IUD INSERTION (FOOTBALL SCOUT DEPT)_*FL 07/17/2007 Mirena IUD REMOVAL (FOOTBALL SCOUT DEPT)_*FL 10/23/2007 Mirena L'SCOPE DX W/WO BRUSHINGS/WASHINGS [...] taking: Reported on 04/25/2023) cyanocobalamin/folic acid (VITAMIN T81-DKQPI ACID) 1,000-400 mcg lozg Dissolve under the tongue. citalopram (CELEXA) 20 mg tablet 20 mg. (Patient not taking: No sig reported) ibupr (more content not included)...[facility]07-17-2023 Instructions* Patient Instructions* Roseanna DO Sylvia - 04/25/2023 12:30 PM EDT Images from the original note were not included. Please visit the following website for the [facility] surgery guide. [email or web address] [email or web address]- guide MINIMALLY INVASIVE GYNECOLOGIC SURGERY (MIGS)/BENIGN GYNECOLOGY CONTACTS: Surgeons: Dr. Sylvia Ayala Dr. Lor Rodrigez Dr. Shellie Ventura Dr. Juliana Mendieta Dr. Barry Dhaliwal Dr. Meghan Gale [place]: Dr. Mya Garzon [phone] Dr. Denzel Colon [phone] Dr. 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 We are closed on weekends and major holidays. Surgery Locations: 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 Address: [address] [place] [address] documented in this encounterPrem[facility] Health [facility] History of Present illness Narrative* Sylvia Ayala DO - 04/25/2023 10:30 AM EDT Images from the original note were not included. [facility] [place] SECTION FOR MINIMALLY INVASIVE GYNECOLOGIC SURGERY OUTPATIENT VISIT DATE 04/25/2023 OUTPATIENT VISIT TYPE NEW PRIMARY CARE PHYSICIAN: Carlos Chris MD [id number] [address] REFERRING PHYSICIAN: Gudelia Mi Consultation requested by [...] Cyst with septations and an internal hyperechoic [id number] area 03/17/23: diagnostic laparoscopy Patient underwent diagnostic laparoscopy at [facility] on 03/17/2023 for left ovarian cyst and [...] laparoscopy, right toe surgery Past Gynecologic History: Undercover Cop History LMP: 03/12/2011, Hysterectomy Age at Menarche: Age at First : Age at Menopause: Undercover Cop History Comments: Sexual Activity: Yes; Male; hysterectomy Contraception: Surgical Past Obstetrical History: OB History T5 L5 SAB0 IAB0 Ectopic0 Multiple0 Live Births5 Past Medical History: PAST MEDICAL HISTORY Diagnosis Date Asthma 03/2016 + VICKIE at [facility]. Depressive disorder, not elsewhere classified Encounter [...] BYPASS HX 09/20/2022 Reun Y IUD INSERTION (FOOTBALL SCOUT DEPT)_*FL 07/17/2007 Mirena IUD REMOVAL (FOOTBALL SCOUT DEPT)_*FL 10/23/2007 Mirena L'SCOPE DX W/WO BRUSHINGS/WASHINGS [...] taking: Reported on 04/25/2023) cyanocobalamin/folic acid (VITAMIN G46-PSOSE ACID) 1,000-400 mcg lozg Dissolve under the [...] plan. Sylvia Ayala DO documented in this encounterPremier Health [facility]06-15-2023 Miscellaneous Notes* Telephone Encounter - Erinn Elias RN - 03/24/2023 8:27 AM EDT Appointments for Next 60 Days Date Time Provider Location Dept Phone 04/25/2023 10:30 AM SYLVIA AYALA [facility] [phone] * Telephone Encounter - Erinn Elias RN - 03/24/2023 8:26 AM EDT ----- Message from Tami Melissa RN sent at 03/23/2023 3:38 PM EDT ----- Regarding: Consult Patient calls in to [facility] [employer] voicemail. She was referred to Dr. Ayala for MIGS, by Dr. Gudelia Mi at [facility]. There is a consult order in her chart. [facility] nurses are both out this week. Thanks! Tami Melissa, RN documented in this encounterPremier Health [facility]06-14-2023 NoteHNO ID: [id number] Author: Gudelia Mi MD Service: ? Author [...] consult w/ MIGs. reviewed findings Gudelia Mi [facility]06-14-2023 History of Present illness Narrative* Gudelia Mi [...] findings Gudelia Mi MD documented in this encounterPremier Health [facility]06-12-2023 NoteHNO ID: [id number] Author: Gudelia Mi MD Service: ? Author Type: Physician Type: Progress Notes Filed: 03/21/2023 11:45 AM Note Text: Patient underwent diagnostic laparoscopy at [facility] on 03/17/2023 for left ovarian cyst and pelvic pain. The left ovary and tube were adhered at the pelvic brim densely. There are extensive omental adhesions. I was unable to visual ize the cuff or the right ovary/tube. I was unable to complete the surgery laparoscopically and ended the surgery. Recommend consult w/ MIGS to consider surgical removal. Gudelia Mi, [facility]05-31-2023 NoteHNO ID: [id number] Author: Gudelia Mi MD Service: ? Author [...] L5 SAB0 IAB0 Ectopic0 Multiple0 Live Births5 Undercover Cop History LMP: 03/12/2011, Hysterectomy Age at Menarche: Age at First : Age at Menopause: Undercover Cop History Comments: Sexual Activity: Yes; Male; hysterectomy Contraception: Surgical PAST MEDICAL HISTORY Diagnosis Date Asthma 03/2016 + VICKIE at [facility]. Depressive disorder, not elsewhere classified Encounter [...] BYPASS HX 09/20/2022 Reun Y IUD INSERTION (FOOTBALL SCOUT DEPT)_*FL 07/17/2007 Mirena IUD REMOVAL (FOOTBALL SCOUT DEPT)_*FL 10/23/2007 Mirena LIG/TRNSXJ FLP TUBE ABDL/VAG [...] ORAL Take by mouth. cyanocobalamin/folic acid (VITAMIN Q85-CAABP ACID) 1,000-400 mcg lozg Dissolve under the [...] Making Level: 1 - N/A Gudelia Mi [facility]05-31-2023 History of Present illness Narrative* Gudelia Mi [...] L5 SAB0 IAB0 Ectopic0 Multiple0 Live Births5 Undercover Cop History LMP: 03/12/2011, Hysterectomy Age at Menarche: Age at First : Age at Menopause: Undercover Cop History Comments: Sexual Activity: Yes; Male; hysterectomy Contraception: Surgical PAST MEDICAL HISTORY Diagnosis Date Asthma 03/2016 + VICKIE at [facility]. Depressive disorder, not elsewhere classified Encounter [...] BYPASS HX 09/20/2022 Reun Y IUD INSERTION (FOOTBALL SCOUT DEPT)_*FL 07/17/2007 Mirena IUD REMOVAL (FOOTBALL SCOUT DEPT)_*FL 10/23/2007 Mirena LIG/TRNSXJ FLP TUBE ABDL/VAG [...] ORAL Take by mouth. cyanocobalamin/folic acid (VITAMIN D90-GMXKV ACID) 1,000-400 mcg lozg Dissolve under the [...] N/A Gudelia Mi MD documented in this encounterPremier Health [facility]05-31-2023 History and physical note * Gudelia Mi [...] Diagnosis Date Asthma 03/2016 + VICKIE at [facility]. Depressive disorder, not elsewhere classified Encounter [...] BYPASS HX 09/20/2022 Reun Y IUD INSERTION (FOOTBALL SCOUT DEPT)_*FL 07/17/2007 Mirena IUD REMOVAL (FOOTBALL SCOUT DEPT)_*FL 10/23/2007 Mirena LIG/TRNSXJ FLP TUBE ABDL/VAG APPR UNI/BI 2009 Tubal ligation PAST SURGICAL HISTORY OF 1986 Eye surgery TOTAL ABDOMINAL HYSTERECT W/WO RMVL TUBE OVARY 04/22/2011 [facility] Current Outpatient Medications Medication Sig Dispense Refill POTASSIUM ORAL Take by mouth. MULTIVITAMIN ORAL Take by mouth. CALCIUM ORAL Take by mouth. cyanocobalamin/folic acid (VITAMIN U66-YZXVH ACID) 1,000-400 mcg lozg Dissolve under the [...] medications for this visit. ALLERGIES: Citalopram, Codeine, [place], and Nsaids (Non-Steroidal Anti- Inflammatory Drug) PERSONAL [...] allergies Gudelia Mi M.D. documented in this encounterPremier Health [facility]05-16-2023 Miscellaneous Notes* Telephone Encounter - Crystal Plummer RN - 02/22/2023 3:46 PM EDT Form signed by and faxed to [facility] * Telephone Encounter - Crystal Plummer RN - 02/22/2023 10:22 AM EDT Patient would like to be scheduled at [facility] for MRI, they can get her in sooner on the and we have checked and they are unable to get her in here at [facility] until March 15. Please send order to [facility]. Sheis asking for new order to be sent on [facility] form- hospital told her to not send a copy of our order. [facility] order form on desk for signature documented in this encounterPremier Health [facility]05-02-2023 Miscellaneous Notes* Telephone Encounter - Crystal Plummer RN - 02/08/2023 10:04 AM EDT Images from the original note were not included. I called patient and informed her of Lab and MRI ordered. she is scheduled for bloodwork today. Transferred her to schedule MRI. Gudelia Mi MD [facility] Ob-Undercover Cop Pool Please call and schedule MRI for patient. ordered CEA and ca 19-9. Need this done before her surgery. Thanks. See phone note. Gudelia Mi MD documented in this encounterPremier Health [facility]04-27-2023 NoteHNO ID: [id number] Author: Gudelia Mi MD Service: ? Author Type: Physician Type: Progress Notes Filed: 02/08/2023 3:10 PM Note Text: Romain Mendoza is a 47 year old female who presents for problem visit for f/u pelvic pain and adenexal masses . HPI: US done. Ca 125 normal. No new c/o today. Still has pain. OB History T5 L5 SAB0 IAB0 Ectopic0 Multiple0 Live Births5 Undercover Cop History LMP: 03/12/2011, Hysterectomy Age at Menarche: Age at First : Age at Menopause: Undercover Cop History Comments: Sexual Activity: Yes; Male; hysterectomy Contraception: Tubal Ligation, Surgical PAST MEDICAL HISTORY Diagnosis Date Asthma 03/2016 + VICKIE at [facility]. Depressive disorder, not elsewhere classified Encounter [...] BYPASS HX 09/20/2022 Reun Y IUD INSERTION (FOOTBALL SCOUT DEPT)_*FL 07/17/2007 Mirena IUD REMOVAL (FOOTBALL SCOUT DEPT)_*FL 10/23/2007 Mirena LIG/TRNSXJ FLP TUBE ABDL/VAG [...] ORAL Take by mouth. cyanocobalamin/folic acid (VITAMIN U68-GSXJX ACID) 1,000-400 mcg lozg Dissolve under the [...] Making Level: 1 - N/A Gudelia Mi, [facility]04-06-2023 NoteHNO ID: [id number] Author: Gudelia Mi MD Service: ? Author Type: Physician Type: Progress Notes Filed: 01/13/2023 12:10 PM Note Text: Hose Suspender Cutter offered: Patient declines. Romain Mendoza is a [...] L5 SAB0 IAB0 Ectopic0 Multiple0 Live Births5 Undercover Cop History LMP: 03/12/2011, Hysterectomy Age at Menarche: Age at First : Age at Menopause: Undercover Cop History Comments: Sexual Activity: Yes; Male; hysterectomy Contraception: Tubal Ligation, Surgical PAST MEDICAL HISTORY Diagnosis Date Asthma 03/2016 + VICKIE at [facility]. Depressive disorder, not elsewhere classified Encounter [...] X3 GASTRIC BYPASS HX 09/20/2022 IUD INSERTION (FOOTBALL SCOUT DEPT)_*FL 07/17/2007 Mirena IUD REMOVAL (FOOTBALL SCOUT DEPT)_*FL 10/23/2007 Mirena LIG/TRNSXJ FLP TUBE ABDL/VAG [...] ORAL Take by mouth. cyanocobalamin/folic acid (VITAMIN O70-UCWKX ACID) 1,000-400 mcg lozg Dissolve under the [...] external genitalia normal, normal Bartholin's glands, urethra, Ludden's glands, no vulvar lesions, good vaginal support, [...] Moderate: 1+ chronic illnesse (more content not included)...[facility]03-30-2023 Evaluation note* Encounter Date Diagnosis Assessment Notes Treatment Notes Treatment Clinical Notes Dec, Vitamin D deficiency , unspecified (ICD-10 - E55.9) Dec, Anemia, unspecified (ICD-10 - D64.9) Dec, Vitamin B12 deficiency (ICD-10 - E53.8) Dec, Malabsorption (ICD-1 0 - K90.9) Dec, History of bariatric surgery (ICD-10 - Z98.84) [facility]. Other 01-23-2023 Evaluation note* Encounter Date Diagnosis Assessment Notes Treatment Notes Treatment Clinical Notes Oct, Other Reviewed 6 w [place] diet progression. I reviewed which foods patient [...] to daily MVI. Patient shows good understanding. [facility]. Other 01-23-2023 Evaluation note* Encounter Date [...] exercise for continued long-term weight loss success [facility]. Other 01-23-2023 Evaluation note* Encounter Date Diagnosis Assessment Notes Treatment Notes Treatment Clinical Notes Oct, Vitamin D deficiency , unspecified (ICD-10 - E55.9) Oct, Anemia, unspecified (ICD-10 - D64.9) Oct, Vitamin B12 deficiency (ICD-10 - E53.8) Oct, Malabsorption (ICD-1 0 - K90.9) Oct, History of bariatric surgery (ICD-10 - Z98.84) [facility]. Other 01-09-2023 Evaluation note* Encounter Date Diagnosis Assessment Notes Treatment Notes Treatment Clinical Notes Oct, Surgery follow-up examination (ICD-10 - Z09) Continue activity restrictions. Oct, Other Advance diet pe r protocol Continue MVI with Fe, PPI Reviewed the rules for nursing home weight loss success. Continue to increase walking for exercise. [facility]. Other 01-09-2023 Evaluation note* Encounter Date Diagnosis [...] packet was given, patient shows good understanding. [facility]. Other 12-27-2022 Evaluation note* Encounter Date Diagnosis Assessment Notes Treatment Notes Treatment Clinical Notes Sep, Other Reviewed pur eed diet progression. Patient was instructed to start purees today 10/05. I reviewed how to blend foods appropriately to one consistency using a university administrative assistant. Pureed food examples and recipes were provided [...] packet was given, patient shows good understanding. [facility]. Other 12-27-2022 Evaluation note* Encounter Date Diagnosis [...] if able to compensate increased fluid loss [facility]. Other 12-14-2022 Hospital Discharge instructions Activity [...] Has Patient had Chest Pain or an WI during this Visit? : No * It is important to understand risk factors for heart disease : It is important to understand risk factors for heart disease * so you can work with your doctor to help prevent further cardiac : so you can work with your doctorto help prevent further cardiac injury. 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 from 09/22/2022 4:19 PM: * Home Care Liaison Followup : Alphonse Galvan MD ([id number]) - Pulmonology * Home Care Liaison Address and Phone : [address] [address] [phone] * Home Care Liaison Instructions : Please call to schedule an [...] 30 : Additionally, a study by the [facility] shows that sleep apnea may be tied [...] * Discharge Physician: : Anaid Garsia MD ([id number]) - Surgery * Follow up with Ordering Physician : 2 * Discharge Physician Specialty : Week(s) * Discharge Physician Phone: : [address] [address] [phone] * Patient stated Primary Care Provider : [...] not submerge incision until okayed by office. [facility] 12-14-2022 Evaluation + Plan note [...] shakes per day starting the second week. [facility] 12-14-2022 Discharge summary* Discharge Summary [...] any lotio ns or moisturizers on incisions. [facility] [id number] Hospital Discharge instructions 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 from 09/20/2022 4:46 PM: * Home Care Liaison Followup : Alphonse Galvan MD ([id number]) - Pulmonology * Home Care Liaison Address and Phone : [address] [address] [phone] * Home Care Liaison Instructions : Please call to schedule an appointment upon discharge. ED Discharge Education Evaluation from 09/20/2022 6:38 PM: * Educ Topic #1 : Yes Patient Transfer Information from 09/20/2022 6:38 PM: * Sensory Screening : Denies problems or history * Does Patient have hearing aids? : No Physician Follow-up Plan/Appointments from 09/20/2022 6:38 PM: * Patient stated Primary Care Provider : OTHER [facility] 12-12-2022 Evaluation note* Encounter Date [...] mass inde x 38.0-38.9 (ICD-10 - Z68.38) [facility]. Other 11-17-2022 Evaluation note* Encounter Date [...] introduced at 6 week follow up appointment. [facility]. Other 11-17-2022 Evaluation note* Encounter Date [...] personal performance and is accurate and complete [facility]. Other 09-14-2022 Evaluation note* Encounter Date [...] personal performance and is accurate and complete [facility]. Other 09-14-2022 Evaluation note* Encounter Date Diagnosis Assessment Notes Treatment Notes Treatment Clinical Notes Jun, Other Today's Lesson: - Review of food recall - Briefly reviewed expectations after surgery Diet Goal: practice the lifelong rules Exercise Recommendations: 150 minutes moderate intensity exercise per week Behavior Goal: - continue to implement the lifelong rules Plan: dietary clearance provided today [facility]. Other 09-11-2022 History general Narrative - Reported* Type Description Date Medical History sleep apnea, CPAP is 2 yrs old, uses it every night but device is recalled, PCP will order a new one Medical History asthma Medical History hypertension Medical History depression Medical History acid reflux Medical History hypothyroidism Medical History sees track car operator fo r chest pain, irregular heart beat, fam Hx, exercise stress test 2021 WNL Surgical History appendectomy 2019 Surgical History right knee meniscus Surgical History x 3 Surgical History growth removed above right eye as a child Surgical History hysterectomy 2010 Hospitalization History [facility] chest pain [facility]. Other 08-18-2022 Evaluation note* Encounter Date [...] personal performance and is accurate and complete [facility]. Other 08-18-2022 Evaluation note* Encounter Date Diagnosis Assessment Notes Treatment Notes Treatment Clinical Notes May, Other Today's Lesson: - Review of food recall Diet Goal: practice the lifelong rules Exercise Recommendations: 150 minutes moderate intensity exercise per week Behavior Goal: - continue to implement the lifelong rules [facility]. Other 08-18-2022 Evaluation note* Encounter Date [...] and is not at risk for . [facility]. Other 07-27-2022 Evaluation note* Encounter Date Diagnosis [...] personal performance and is accurate and complete. [facility]. Other 06-27-2022 Evaluation note* Encounter Date Diagnosis Assessment Notes Treatment Notes Treatment Clinical Notes Mar, Other Today's Lesson: - Review of dietary recall - Suggestions provided Diet Goal: practice the lifelong rules Exercise Recommendations: 150 minutes moderate intensity exercise per week Behavior Goal: - Continue to follow the lifelong rules - 1-2# wt loss per week [facility] Other 06-11-2022 History general Narrative - Reported* Type Description Date Medical History sleep apnea, CPAP is 2 yrs old, uses it every night Medical History asthma Medical History hypertension Medical History depression Medical History acid reflux Medical History hypothyroidism Medical History sees track car operator fo r chest pain, irregular heart beat, fam Hx, exercise stress test 2021 WNL Surgical History appendectomy 2019 Surgical History right knee meniscus Surgical History x 3 Surgical History growth removed above right eye as a child Surgical History hysterectomy 2009 Hospitalization History [facility] chest pain [facility] Other 06-08-2022 Evaluation note* Encounter Date Diagnosis [...] Mar, Vitamin D deficiency (ICD-10 - E55.9) [facility] Other 05-24-2022 Evaluation note* Encounter Date Diagnosis Assessment Notes Treatment Notes Treatment Clinical Notes February, Other Today's Lesson: - Had Romain download and set up MyDROBE pal profile, set calories to 1500 per day - Reviewed how to scan bar codes and how to manually enter food items - Reviewed the importance of measuring out portions - Recommended keeping meals simple Diet Goal: practice the lifelong rules Exercise Recommendations: 150 minutes moderate intensity exercise per week Behavior Goal: 1. Use My[employer] pal and track food intake 2. 1-2# wt loss/week [facility]. Other 05-24-2022 Evaluation note* Encounter Date Diagnosis Assessment Notes Treatment Notes Treatment Clinical Notes February, Sleep apnea (ICD-10 - G47.30) Counseled on consistent CPAP use February, Primary hypertension (ICD-10 - I10) February, Gastroesophageal ref lux (ICD-10 - K21.9) February, Non morbid obesity d ue to excess calories (ICD-10 - E66.09) Counseled on low calorie diet and increase exercise [facility]. Other 04-26-2022 Evaluation note* Encounter Date [...] meals a day 2. track food intake [facility]. Other 04-26-2022 Evaluation note* Encounter Date [...] Jan, Nutritional deficien cy (ICD-10 - E63.9) [facility]. Other 04-12-2022 History of Present illness [...] 19, 2022 1:25 PM [facility] of Past illness Narrative* Problem Noted [...] of this encounter (statuses as of 05/06/2023) [facility] History of Past illness Narrative* Problem Noted [...] of this encounter (statuses as of 05/09/2023) [facility] History of Past illness Narrative* Problem Noted [...] of this encounter (statuses as of 05/10/2023) [facility] History of Past illness Narrative* Problem Noted [...] of this encounter (statuses as of 05/10/2023) [facility] History of Past illness Narrative* Problem Noted [...] of this encounter (statuses as of 05/12/2023) [facility] History of Past illness Narrative* Problem Noted [...] of this encounter (statuses as of 05/30/2023) [facility] History of Past illness Narrative* Problem Noted [...] of this encounter (statuses as of 01/20/2022) [facility] History of Past illness Narrative* Problem Noted [...] of this encounter (statuses as of 01/20/2022) [facility] History of Past illness Narrative* Problem Noted [...] of this encounter (statuses as of 02/08/2023) [facility] History of Past illness Narrative* Problem Noted [...] of this encounter (statuses as of 02/23/2023) [facility] History of Past illness Narrative* Problem Noted [...] of this encounter (statuses as of 03/09/2023) [facility] History of Past illness Narrative* Problem Noted [...] of this encounter (statuses as of 03/21/2023) [facility] History of Past illness Narrative* Problem Noted [...] of this encounter (statuses as of 03/23/2023) [facility] History of Past illness Narrative* Problem Noted [...] of this encounter (statuses as of 03/24/2023) [facility] History of Past illness Narrative* Problem Noted [...] of this encounter (statuses as of 04/25/2023) [facility] + Plan note [facility] Evaluation note* Diagnosis Abnormal screening mammogram Abnormal mammogram, unspecified documented in this encounter [facility] note* Diagnosis Abnormal screening mammogram Abnormal mammogram, unspecified documented in this encounter [facility] noteNo [facility]. Other Evaluation note* Diagnosis Pelvic and perineal pain- Primary Unspecified symptom associated with female genital organs Ovarian cyst, left Other and unspecified ovarian cyst documented in this encounter [facility] note* Diagnosis Pelvic and perineal pain- Primary Unspecified symptom associated with female genital organs Ovarian cyst, left Other and unspecified ovarian cyst documented in this encounter [facility] note* Diagnosis Peritoneal adhesions- Primary Peritoneal adhesions (postoperative) (postinfection) Adhesion of omentum Peritoneal adhesions (postoperative) (postinfection) Ovarian cyst, left Other and unspecified ovarian cyst [facility] this [facility] Diagnosis Ovarian cyst, left- Primary Other and unspecified ovarian cyst Peritoneal adhesions Peritoneal adhesions (postoperative) (postinfection) Pelvic pain in female Unspecified symptom associated with female genital organs Preop examination Preoperative examination, unspecified documented in this encounter [facility] note* Diagnosis Post-op pain- Primary Other acute postoperative pain documented in this encounter [facility] note* Diagnosis Pelvic pain in female- Primary Unspecified symptom associated with female genital organs documented in this encounter [facility] general Narrative - Reported* Type Description Date Medical History sleep apnea, CPAP is 2 yrs old, uses it every night Medical History asthma Medical History hypertension Medical History depression Medical History acid reflux Medical History hypothyroidism Medical History sees track car operator fo r chest pain, irregular heart beat, fam Hx, has exercise stress test 2020 Surgical History appendectomy 2019 Surgical History right knee meniscus Surgical History x 3 Surgical History growth removed above right eye as a child Surgical History hysterectomy 2010 Hospitalization History [facility] pain [facility]. Other [employer] general Narrative - Reported* Type Description Date Medical History sleep apnea, CPAP is 2 yrs old, uses it every night Medical History asthma Medical History hypertension Medical History depression Medical History acid reflux Medical History hypothyroidism Medical History sees track car operator fo r chest pain, irregular heart beat, fam Hx, exercise stress test 2021 WNL Surgical History appendectomy 2020 Surgical History right knee meniscus Surgical History x 3 Surgical History growth removed above right eye as a child Surgical History hysterectomy 2009 Hospitalization History [facility]. Other [employer] general Narrative - Reported* Type Description Date Medical History sleep apnea, CPAP is 2 yrs old, uses it every night but device is recalled, PCP will order a new one Medical History asthma Medical History hypertension Medical History depression Medical History acid reflux Medical History hypothyroidism Medical History sees track car operator fo r chest pain, irregular heart beat, fam Hx, exercise stress test 2021 WNL Surgical History appendectomy 2020 Surgical History right knee meniscus Surgical History x 3 Surgical History growth removed above right eye as a child Surgical History hysterectomy 2009 Hospitalization History [facility]. 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. 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 Other [employer] general N[facility]ative - [facility]orted[facility] 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 Other Hospital Discharge instructions Activity on [...] Has Patient had Chest Pain or an WI during this Visit? : No * It is important to understand risk factors for heart disease : It is important to understand risk factors for heart disease * so you can work with your doctor to help prevent further cardiac : so you can work with your doctorto help prevent further cardiac injury. 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 from 09/22/2022 4:19 PM: * Home Care Liaison Followup : Alphonse Galvan MD ([id number]) - Pulmonology * Home Care Liaison Address and Phone : [address] [place] [phone] * Home Care Liaison Instructions : Please call to schedule an [...] 30 : Additionally, a study by the [facility] shows that sleep apnea may be tied [...] * Discharge Physician: : Anaid Garsia MD ([id number]) - Surgery * Follow up with Ordering Physician : 2 * Discharge Physician Specialty : Week(s) * Discharge Physician Phone: : [phone] [address] [phone] * Patient stated Primary Care Provider : [...] not submerge incision until okayed by office. [facility] Reason for referral (narrative)* Diagnostic Procedure Only (Routine) - Closed Specialty Diagnoses / Procedures Referred By Alesia lemons Referred To Contact [facility] Diagnoses Abnormal screening mammogram Procedures US BREAST LTD LT US BREAST UNI REAL TIME WITH IMAGE LIMITED Angle Fagan APRN.CNM [address] [place] [address] [facility] [id number] [address] Referral ID Status Reason Start Date Expiration Date V isits Requested Visits Authorized [id number] Closed Auto-Generate d Referral 12/16/2021 01/15/2023 1 1 [facility] for visit Narrative* Diagnostic Procedure Only (Routine) - Closed Specialty Diagnoses / Procedures Referred By Alesia lemons Referred To Contact [facility] Diagnoses Abnormal screening mammogram Procedures VIVIANE DIAGNOSTIC LT DIAGNOSTIC MAMMOGRAPHY COMPUTER-AIDED DETCJ UNI Angle Fagan APRN.CNM [address] [place] [address] [facility] [address] [place] [address] Referral ID Status Reason Start Date Expiration Date V isits Requested Visits Authorized [id number] Closed Auto-Generate d Referral 12/16/2021 01/15/2023 1 1 [facility] for visit Narrative* Diagnostic Procedure Only (Routine) - Closed Specialty Diagnoses / Procedures Referred By Cristianac t Referred To Contact [facility] Diagnoses Abnormal screening mammogram Procedures US BREAST LTD LT US BREAST UNI REAL TIME WITH IMAGE LIMITED Angle Fagan APRN.CNM [address] [place] [address] [facility] [address] [place] [address] Referral ID Status Reason Start Date Expiration Date V isits Requested Visits Authorized [id number] Closed Auto-Generate d Referral 12/16/2021 01/15/2023 1 1 [facility] for visit Narrativesurgery education, review insurance requirements [facility] Other Summary Purpose Family History No [...] TO MINIMALLY INVASIVE GYNECOLOGIC SURGERY OFFICE/OUTPATIENT [facility] 60-74 MINUTES Gudelia Mi MD [address] [place] [address] Referral ID Status Reason Start Date Expiration Date Visits Requested Visits Authorized [id number] Authorized PCP Requested Referral Auto-Generate d Referral 03/23/2023 03/22/2024 1 1 Specialty Diagnoses / Procedures Referred By Cristianac t Referred To Contact [facility] Diagnoses Pelvic and perineal pain Procedures MRI PELVIS WO/W IVCON MRI PELVIS W/O & W/CONTRAST MATERIAL Gudelia Mi MD [address] [place] [address] [facility] Referral ID Status Reason Start Date Expiration Date Visits Requested Visits Authorized [id number] Pending Review Auto-Generat ed Referral 02/08/2023 03/09/2024 1 1 Additional Source Comments Source Comments (unrecognize d section and content) In the event this informatio n is protected by the Federal Confidentiality of Alcohol and Drug Abuse Patient Records regulations: The Federal rules restrict any use of the information to criminally investigate or prosecute any alcohol or drug abuse patient.[facility] the event this information is protected by the Federal Confidentiality of Alcohol and Drug Abuse Patient Records regulations: The Federal rules restrict any use of the information to criminally investigate or prosecute any alcohol or drug abuse patient.[facility] the event this information is protected by the Federal Confidentiality of Alcohol and Drug Abuse Patient Records regulations: The Federal rules restrict any use of the information to criminally investigate or prosecute any alcohol or drug abuse patient.[facility] the event this information is protected by the Federal Confidentiality of Alcohol and Drug Abuse Patient Records regulations: The Federal rules restrict any use of the information to criminally investigate or prosecute any alcohol or drug abuse patient.[facility] the event this information is protected by the Federal Confidentiality of Alcohol and Drug Abuse Patient Records regulations: The Federal rules restrict any use of the information to criminally investigate or prosecute any alcohol or drug abuse patient.[facility]In the event this information is protected by the Federal Confidentiality of Alcohol and Drug Abuse Patient Records regulations: The Federal rules restrict any use of the information to criminally investigate or prosecute any alcohol or drug abuse patient.[facility] SouthIn the event this information is protected by the Federal Confidentiality of Alcohol and Drug Abuse Patient Records regulations: The Federal rules restrict any use of the information to criminally investigate or prosecute any alcohol or drug abuse patient.[facility] SouthIn the event this information is protected by the Federal Confidentiality of Alcohol and Drug Abuse Patient Records regulations: The Federal rules restrict any use of the information to criminally investigate or prosecute any alcohol or drug abuse patient.[facility] SouthIn the event this information is protected by the Federal Confidentiality of Alcohol and Drug Abuse Patient Records regulations: The Federal rules restrict any use of the information to criminally investigate or prosecute any alcohol or drug abuse patient.[facility]In the event this information is protected by the Federal Confidentiality of Alcohol and Drug Abuse Patient Records regulations: The Federal rules restrict any use of the information to criminally investigate or prosecute any alcohol or drug abuse patient.[facility] SouthIn the event this information is protected by the Federal Confidentiality of Alcohol and Drug Abuse Patient Records regulations: The Federal rules restrict any use of the information to criminally investigate or prosecute any alcohol or drug abuse patient.[facility] SouthIn the event this information is protected by the Federal Confidentiality of Alcohol and Drug Abuse Patient Records regulations: The Federal rules restrict any use of the information to criminally investigate or prosecute any alcohol or drug abuse patient.[facility] SouthIn the event this information is protected by the Federal Confidentiality of Alcohol and Drug Abuse Patient Records regulations: The Federal rules restrict any use of the information to criminally investigate or prosecute any alcohol or drug abuse patient.[facility] SouthIn the event this information is protected by the Federal Confidentiality of Alcohol and Drug Abuse Patient Records regulations: The Federal rules restrict any use of the information to criminally investigate or prosecute any alcohol or drug abuse patient.[facility]In the event this information is protected by the Federal Confidentiality of Alcohol and Drug Abuse Patient Records regulations: The Federal rules restrict any use of the information to criminally investigate or prosecute any alcohol or drug abuse patient.[facility] Care Teams (unrecognized sec tion and content) 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 Start Date End Date Carlos Chris Chi PCP - General Gerontology 12/28/16 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 Start Date End Date Carlos Chris Chi PCP - General Gerontology 12/28/16 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 Start Date End Date Aries, Carlos Chi PCP - General Gerontology 12/28/16 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 Start Date End Date Ivelisse Phillip MD [address] [place], [place] [address] PCP - General Internal Medicine 11/17/10 12/27/16 Aries Carlos Chi [address] [place], [place] [id number] [phone] PCP - General Gerontology 12/28/16 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 Start Date End Date Aries Carlos Chi PCP - General Gerontology 12/28/16 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 Start Date End Date Aries Carlos Chi PCP - General Gerontology 12/28/16 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 Start Date End Date Carlos Chris Chi PCP - General Gerontology 12/28/16 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 Start Date End Date Aries Carlos Chi PCP - General Gerontology 12/28/16 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 Start Date End Date Aries, Carlos Chi PCP - General Gerontology 12/28/16 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 Start Date End Date Aries Carlos Chi PCP - General Gerontology 12/28/16 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 Start Date End Date Carlos Chris Chi PCP - General Gerontology 12/28/16 REASON FOR VISIT (unrecogniz ed section and content) 6 MOS FUV RYGB Reason Comments Orders Reason Comments Pre-Op Visit Reason Comments Post Op Consult to [facility] Reason Comments Appointment Specialty Diagnoses / Procedures Referred By Contac t Referred To Contact Diagnoses Peritoneal adhesions Adhesion of omentum Ovarian cyst, left Procedures CONSULT TO MINIMALLY INVASIVE GYNECOLOGIC SURGERY OFFICE/OUTPATIENT [facility] 60-74 MINUTES Gudelia Mi MD [address] [place] [address] Referral ID Status Reason Start Date Expiration Date V isits Requested Visits Authorized [id number] Closed PCP Requested Referral Auto-Generated Referral 03/23/2023 03/22/2024 1 1 Reason Comments Post Op Pain Reason Comments Medication Question Reason Comments Post Op 3 weeks Goals (unrecognized section and content) INFORMATION SOURCE (unrecogn ized section and content) DATE CREATED AUTHOR AUTHOR'S ORGANIZ ATION 01/14/2023 [facility] DATE CREATED AUTHOR AUTHOR'S ORGANIZ ATION 05/11/2023 [facility] DATE CREATED AUTHOR AUTHOR'S ORGANIZ ATION 05/31/2023 [facility] FOR RECORDS PERTAINING TO PATIENTS WHO ARE [...] BE BASED ON THE PRIMARY CLINICAL RECORDS. [employer] provides no warranty or guarantee of the accuracy or completeness of information in this document.
== END | disposition home or self-care (01) ==
LOC: PSN 08:38
PROVIDERS: PCP Family Medicine Geriatric Medicine; Referring Provider Family Medicine Geriatric Medicine; Visit Provider Family Medicine Geriatric Medicine
DX: R68.83 Chills (without fever) (principal)
CPT/HCPCS: 87631

== ENCOUNTER → 2023-11-21 | Outpatient (CLI) | payer MEDICAID, SELFPAY ==
--- OUTSIDE RECORDS SUMMARY | 2023-11-21 09:48 | XMS RPT_ITS | CCD ---
Author Name Unknown Address [address] [place] [address] Organization [facility] Care Team Providers Care Lap Hand Tool Name Role Phone Merly Bob NP Unavailable [...] Unavailable Aries, Carlos Chi Primary Care Provider Ivelisse Phillip MD Primary Care Provider Aries, [...] Facility (4 sources) citalopram drug allergy 6 [facility] Work Phone: (20 sources) lithium; Translations: [LITHIUM] drug allergy 6 [facility] Work Phone: (17 sources) Citalopram; Translations: [CITALOPRAM] Drug Allergy [address] [facility] Work Phone: (17 sources) Codeine; Translations: [CODEINE] Drug Allergy 3 Other: See Comments [facility] (15 sources) Non-steroidal anti-inflammato ry agent; Translations: [NSAIDS (NON-STEROIDAL ANTI-INFLAMMATO RY DRUG)] Drug Allergy 3 Other: See Comments [facility] NEGATED: Highlighted row has been ruled out! (3 sources) natural latex rubber; Translations: [LATEX, NATURAL RUBBER] Drug allergy (disorder) [facility] [place] NEGATED: Highlighted row has been ruled out! 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 05-30-2023 13:00-0400 Systolic blood pressure 117 mm[Hg] Sylvia Ayala DO Work Phone: [facility] 05-26-2023 09:00-0400 Body height 152.4 cm ANAID RUY-ALISTAIR Other [facility] [employer] Other 05-26-2023 09:00-0400 Body mass index (BMI) [Ratio] 25.58 kg/m2 ANAID RUY-ALISTAIR Other [facility] [employer] Other 05-26-2023 09:00-0400 Body weight 59.42 kg ANAID RUY-ALISTAIR Other [facility] [employer] Other 05-26-2023 08:00-0400 Diastolic blood pressure 79 mm[Hg] ANAID RUY-ALISTAIR Other [facility] [employer] [facility]. Other 05-26-2023 08:00-0400 Heart rate 63 /min ANAID RUY-ALISTAIR Other [facility] Other 05-26-2023 08:00-0400 Systolic blood pressure 121 mm[Hg] ANAID RUY-ALISTAIR Other [facility] [employer]. Other 04-25-2023 10:08-0400 Diastolic blood pressure 83 mm[Hg] Sylvia Billow DO Work Phone: [facility] 04-25-2023 10:08-0400 Heart rate 70 /min Sylvia Billow DO Work Phone: [facility] 04-25-2023 10:08-0400 Systolic blood pressure 121 mm[Hg] Sylvia Billow DO Work Phone: [facility] 03-23-2023 08:46-0400 Body weight 65.32 kg Gudelia Mi MD Work Phone: [facility] 03-23-2023 08:46-0400 Diastolic blood pressure 62 mm[Hg] Gudelia Mi MD Work Phone: [facility] 03-23-2023 08:46-0400 Systolic blood pressure 110 mm[Hg] Gudelia Mi MD Work Phone: [facility] 03-09-2023 09:19-0400 Body height 151.8 cm Gudelia Mi MD Work Phone: [facility] 03-09-2023 09:19-0400 Body weight 61.69 kg Gudelia Mi MD Work Phone: [facility] 03-09-2023 09:19-0400 Diastolic blood pressure 60 mm[Hg] Gudelia Mi MD Work Phone: [facility] 05-31-2023 09:19-0400 Heart rate 68 /min Gudelia Mi MD Work Phone: [facility] 03-09-2023 09:19-0400 Respiratory rate 16 /min Gudelia Mi MD Work Phone: [facility] 03-09-2023 09:19-0400 SaO2% (BldA) [Mass fraction] 99 % Gudelia Mi MD Work Phone: [facility] 03-09-2023 09:19-0400 Systolic blood pressure 110 mm[Hg] Gudelia Mi MD Work Phone: [facility] 11-01-2022 16:30-0500 Body height 152.4 cm SPARKLE JENNIFER Other [facility] [employer] Other 11-01-2022 16:30-0500 Body mass index (BMI) [Ratio] 33.78 kg/m2 SPARKLE FISTEK Other [facility] [employer] Other 11-01-2022 16:30-0500 Body weight 78.47 kg SPARKLE FISTEK Other [facility] [employer] Other 11-01-2022 16:30-0500 Diastolic blood pressure 85 mm[Hg] SPARKLE FISTEK Other [facility] [employer] Other 11-01-2022 16:30-0500 Heart rate 76 /min SPARKLE FISTEK Other [facility] Other 11-01-2022 16:30-0500 Systolic blood pressure 125 mm[Hg] SPARKLE FISTEK Other [facility] [employer] Other 11-01-2022 15:30-0500 Body height 152.4 cm ANAID RUY-ALISTAIR Other [facility] [employer] Other 11-01-2022 15:30-0500 Body mass index (BMI) [Ratio] 33.78 kg/m2 ANAID RUY-ALISTAIR Other [facility] [employer] Other 11-01-2022 15:30-0500 Body weight 78.47 kg ANAID URY-ALISTAIR Other [facility] [employer] Other 10-18-2022 10:00-0500 Body height 152.4 cm SPARKLE FISTEK Other [facility] [employer] Other 10-18-2022 10:00-0500 Body mass index (BMI) [Ratio] 33.2 kg/m2 SPARKLE FISTEK Other [facility] [employer] Other 10-18-2022 10:00-0500 Body weight 77.11 kg SPARKLE FISTEK Other [facility] [employer] Other 10-18-2022 10:00-0500 Diastolic blood pressure 79 mm[Hg] SPARKLE FISTEK Other [facility] [employer] Other 10-18-2022 10:00-0500 Heart rate 79 /min SPARKLE FISTEK Other [facility] [employer] Other 10-18-2022 10:00-0500 Systolic blood pressure 112 mm[Hg] SPARKLE FISTEK Other [facility] [employer] Other 10-05-2022 15:30-0500 Body height 152.4 cm ANAID RUY-ALISTAIR Other [facility] [employer] Other 10-05-2022 15:30-0500 Body mass index (BMI) [Ratio] 33.59 kg/m2 ANAID RUY-ALISTAIR Other [facility] Other 10-05-2022 15:30-0500 Body weight 78.02 kg ANAID RUY-ALISTAIR Other [facility] Other 10-05-2022 15:30-0500 Diastolic blood pressure 82 mm[Hg] SPARKLE FISTEK Other [facility] Other 10-05-2022 15:30-0500 Heart rate 92 /min SPARKLE FISTEK Other [facility] Other 10-05-2022 15:30-0500 Systolic blood pressure 117 mm[Hg] SPARKLE FISTEK Other [facility] Other 09-22-2022 15:57-0500 Body height 152.4 cm MD Anaid Garsia MD [employer] 09-22-2022 15:57-0500 Body mass index (BMI) [Ratio] 39.18 kg/m2 MD Anaid Garsia MD [employer] 09-22-2022 15:57-0500 Body temperature 97.34 [degF] MD Anaid Garsia MD [employer] 09-22-2022 15:57-0500 Body weight 91 kg MD Anaid Garsia MD [facility] [place] 09-22-2022 15:57-0500 Diastolic blood pressure 77 mm[Hg] MD Anaid Garsia MD [facility] [place] 09-22-2022 15:57-0500 Heart rate 77 /min MD Anaid Garsia MD [facility] [place] 09-22-2022 15:57-0500 Inhaled oxygen concentration 97 % MD Anaid Garsia MD [facility] [place] 09-22-2022 15:57-0500 Respiratory rate 18 /min MD Anaid Garsia MD [facility] [place] 09-22-2022 15:57-0500 Systolic blood pressure 122 mm[Hg] MD Anaid Garsia MD [facility] [place] 08-26-2022 11:00-0500 Diastolic blood pressure 75 mm[Hg] ZANDRA DONCA Other [facility] Other 08-26-2022 11:00-0500 Heart rate 91 /min ZANDRA DONCA Other [facility] Other 08-26-2022 11:00-0500 Respiratory rate 16 /min ZANDRA DONCA Other [facility] Other 08-26-2022 11:00-0500 Systolic blood pressure 124 mm[Hg] ZANDRA DONCA Other [facility] Other 08-26-2022 09:00-0500 Body height 152.4 cm ANAID GARSIA Other [facility] Other 08-26-2022 09:00-0500 Body mass index (BMI) [Ratio] 34.95 kg/m2 ANAID RUY-ALISTAIR Other [facility] [employer]. Other 08-26-2022 09:00-0500 Body weight 81.19 kg ANAID RUY-ALISTAIR Other [facility] [employer]. Other 07-23-2022 10:30-0400 Body height 152.4 cm ANAID RUY-ALISTAIR Other [facility] Other 07-23-2022 10:30-0400 Body mass index (BMI) [Ratio] 37.3 kg/m2 ANAID RUY-ALISTAIR Other [facility] Other 07-23-2022 10:30-0400 Body weight 86.64 kg ANAID RUY-ALISTAIR Other [facility] Other 06-23-2022 17:30-0400 Body height 152.4 cm ZANDRA DONCA Other [facility] [employer] Other 06-23-2022 17:30-0400 Body mass index (BMI) [Ratio] 37.88 kg/m2 ZANDRA DONCA Other [facility] [employer] Other 06-23-2022 17:30-0400 Body weight 88 kg ZANDRA DONCA Other [facility] [employer] Other 06-23-2022 17:00-0400 Diastolic blood pressure 79 mm[Hg] ZANDRA DONCA Other [facility] [employer] Other 06-23-2022 17:00-0400 Heart rate 96 /min ZANDRA RUBIN Other [facility] Other 06-23-2022 17:00-0400 Respiratory rate 16 /min ZANDRA SPAULDINGCA Other [facility] [employer]. Other 06-23-2022 17:00-0400 Systolic blood pressure 130 mm[Hg] ZANDRA RUBIN Other [facility] Other 05-27-2022 11:45-0400 Body height 152.4 cm ZANDRA RUBIN Other [facility] Other 05-27-2022 11:45-0400 Body mass index (BMI) [Ratio] 37.69 kg/m2 ZANDRA RUBIN Other [facility] Other 05-27-2022 11:45-0400 Body weight 87.54 kg ZANDRA RUBIN Other [facility] Other 05-27-2022 11:00-0400 Respiratory rate 16 /min ZANDRA SPAULDINGCA Other [facility] [employer] Other 05-27-2022 09:45-0400 Diastolic blood pressure 69 mm[Hg] ZANDRA SPAULDINGCA Other [facility] [employer] Other 05-27-2022 09:45-0400 Heart rate 89 /min ZANDRA SPAULDINGCA Other [facility] [employer] Other 05-27-2022 09:45-0400 Systolic blood pressure 126 mm[Hg] ZANDRAFARZANEH SPAULDINGCA Other [facility] [employer] Other 05-05-2022 13:00-0400 Body height 152.4 cm ZANDRA SPAULDINGCA Other [facility] [employer] Other 05-05-2022 13:00-0400 Body mass index (BMI) [Ratio] 39.06 kg/m2 ZANDRA DONCA Other [facility] [employer] Other 05-05-2022 13:00-0400 Body weight 90.72 kg ZANDRA SPAULDINGCA Other [facility] [employer] Other 04-05-2022 10:30-0400 Body height 152.4 cm ANAID RUY-ALISTAIR Other [facility] [employer] Other 04-05-2022 10:30-0400 Body mass index (BMI) [Ratio] 39.06 kg/m2 ANAID RUY-ALISTAIR Other [facility] [employer] Other 04-05-2022 10:30-0400 Body weight 90.72 kg ANAID RUY-ALISTAIR Other [facility] [employer] Other 03-17-2022 17:00-0400 Body height 152.4 cm ZANDRA DONCA Other [facility] [employer] Other 03-17-2022 17:00-0400 Body mass index (BMI) [Ratio] 40.03 kg/m2 ZANDRA DONCA Other [facility] [employer] Other 03-17-2022 17:00-0400 Body weight 92.99 kg ZANDRA RUBIN Other [facility] [employer] Other 03-02-2022 14:30-0400 Body height 152.4 cm ANAID RUY-ALISTAIR Other [facility] [employer] Other 03-02-2022 14:30-0400 Body mass index (BMI) [Ratio] 39.64 kg/m2 ANAID RUY-ALISTAIR Other [facility] [employer] Other 03-02-2022 14:30-0400 Body weight 92.08 kg ANAID RUY-ALISTAIR Other [facility] [employer] Other 03-02-2022 14:00-0400 Diastolic blood pressure 71 mm[Hg] ZANDRA SPAULDINGCA Other [facility] [employer] Other 03-02-2022 14:00-0400 Heart rate 81 /min ZANDRA SPAULDINGCA Other [facility] [employer]. Other 03-02-2022 14:00-0400 Respiratory rate 16 /min ZANDRA SPAULDINGCA Other [facility] [employer] Other 03-02-2022 14:00-0400 Systolic blood pressure 116 mm[Hg] ZANDRA DONCA Other [facility] Other 02-02-2022 17:15-0400 Body height 152.4 cm ZANDRA SPAULDINGCA Other [facility] [employer] Other 02-02-2022 17:15-0400 Body mass index (BMI) [Ratio] 40.62 kg/m2 ZANDRA RUBIN Other [facility] [employer] Other 02-02-2022 17:15-0400 Body weight 94.35 kg ZANDRA RUBIN Other [facility] [employer] Other 02-02-2022 17:15-0400 Diastolic blood pressure 78 mm[Hg] ZANDRA RUBIN Other [facility] [employer] Other 02-02-2022 17:15-0400 Heart rate 84 /min ZANDRA RUBIN Other [facility] [employer] Other 02-02-2022 17:15-0400 Respiratory rate 16 /min ZANDRA RUBIN Other [facility] [employer] Other 02-02-2022 17:15-0400 Systolic blood pressure 111 mm[Hg] ZANDRA RUBIN Other [facility] [employer] Other 02-02-2022 16:15-0400 Body height 152.4 cm ANAID RUY-ALISTAIR Other [facility] [employer] Other 02-02-2022 16:15-0400 Body mass index (BMI) [Ratio] 40.62 kg/m2 ANAID RUY-ALISTAIR Other [facility] [employer]. Other 02-02-2022 16:15-0400 Body weight 94.35 kg ANAID RUY-ALISTAIR Other [facility] Other 02-10-2017 13:15-0400 BMI (Body Mass Index) 40.39 kg/m2 Merly Bob NP [facility] Work Phone: 02-10-2017 13:15-0400 Body Temperature 98.1 [degF] Merly Bob NP [facility] Work Phone: 02-10-2017 13:15-0400 BP Diastolic 81 mm[Hg] Merly Bob NP [facility] Work Phone: 02-10-2017 13:15-0400 BP Systolic 134 mm[Hg] Merly Bob NP [facility] Work Phone: 02-10-2017 13:15-0400 BSA (Body Surface Area) 1.95 m2 Merly Bob NP [facility] Work Phone: 02-10-2017 13:15-0400 Height 154.94 cm Merly Bob NP [facility] Work Phone: 02-10-2017 13:15-0400 Pulse (Heart Rate) 70 /min Merly Bob NP [facility] Work Phone: 02-10-2017 13:15-0400 Pulse Oximetry 97 % Merly oBb NP [facility] Work Phone: 02-10-2017 13:15-0400 Respiratory Rate 16 /min Merly Bob NP [facility] Work Phone: 02-10-2017 13:15-0400 Weight 96.98 kg Merly Bob NP [facility] Work Phone: 09-22-2016 13:36-0500 BMI (Body Mass Index) 39.3 kg/m2 Merly Bob NP [facility] Work Phone: 09-22-2016 13:36-0500 Body Temperature 98.4 [degF] Merly Bob NP [facility] Work Phone: 09-22-2016 13:36-0500 BP Diastolic 87 mm[Hg] Merly Bob NP [facility] Work Phone: 09-22-2016 13:36-0500 BP Systolic 125 mm[Hg] Merly Bob NP [facility] Work Phone: 09-22-2016 13:36-0500 BSA (Body Surface Area) 1.92 m2 Merly Bob NP [facility] Work Phone: 09-22-2016 13:36-0500 Height 154.94 cm Merly Bob NP [facility] Work Phone: 09-22-2016 13:36-0500 Pulse (Heart Rate) 90 /min Merly Bob NP [facility] Work Phone: 09-22-2016 13:36-0500 Pulse Oximetry 100 % Merly Bob NP [facility] Work Phone: 09-22-2016 13:36-0500 Respiratory Rate 16 /min Merly Bob NP [facility] Work Phone: 09-22-2016 13:36-0500 Weight 94.35 kg Merly Bob NP [facility] Work Phone: 09-22-2016 13:36-0500 Weight 94.55 kg Merly Bob NP [facility] Work Phone: Encounters Encounter Date Encounter Type Care Provider Facility Start: 05-30-2023 End: 05-30-2023 ambulatory CARLOS CHI ARIES Facility:[facility] Start: 05-30-2023 End: 05-30-2023 Patient encounter procedure Sylvia Roseanna Work Phone: Obstetrics/Gynecology Procedures Date Procedure Procedure Detail Performing Clinician Start: 09-20-2022 Completed LAPAROSCOP IC SIMONA EN Y GASTRIC BYPASS, by Felisa Lombardo, on 09/20/2022 12:20 PM MD Anaid Garsia MD Start: 01-19-2022 Us breast uni real t katina with image limited Angle Fagan WATER SYSTEMS ENGINEER.CNM Work Phone: Start: 01-19-2022 VIVIANE KAYLAHG W EMANI LT Cour haile Fagan WATER SYSTEMS ENGINEER.CNM Work Phone: Start: 12-14-2021 Mammography Us 1 Work Phone: Start: 02-10-2017 End: 02-10-2017 Dietary management education, guidance, and counseling Melry Bob NP Start: 02-10-2017 End: 02-10-2017 Thyroid stimulating hormone (TSH) Merly Bob ORCHESTRA DIRECTOR Work Phone: Start: 02-10-2017 End: 02-10-2017 Thyroxine (T4) free Merly Bob ORCHESTRA DIRECTOR Work Phone: Start: 09-19-2013 Melly moreno MD [...] Author Start: 05-03-2026 DIABETES SCREEN DIABETES SCREEN [facility] Start: 05-30-2024 BP CONTROLLED (<130/80) BP CON TROLLED (<130/80) [facility] Start: 05-03-2024 SERUM CREATININE SERUM CREATININE Cl [facility] Start: 03-23-2024 BP CONTROLLED (<130/80) BP CON TROLLED (<130/80) [facility] Start: 03-09-2024 BP CONTROLLED (<130/80) BP CON TROLLED (<130/80) [facility] Start: 02-04-2024 BP CONTROLLED (<130/80) BP CON TROLLED (<130/80) [facility] Start: 06-10-2023 Influenza vaccination INFLUENZA (#1) [facility] Start: 02-08-2023 End: 04-10-2023 Cancer Ag 19-9 [Units/volume] in Serum or Plasma [facility] Work Phone: Immunizations Immunization Date Immunization Notes Care Provider Luis dietrich 07-12-2022 COVID-19 (Moderna) L ow Dose Booster SPARKLE RODRIGUEZ Other [facility] [employer]. Other 07-12-2022 influenza, injectabl e, quadrivalent, contains preservative SPARKLE FISTEK Other [facility] Other 07-28-2021 COVID-19 (Moderna) 3 ANAID BE N-ALISTAIR Other [facility] Other 06-23-2021 influenza, injectabl e, quadrivalent, contains preservative ANAID RUY-ALISTAIR Other [facility] Other 01-17-2021 COVID-19 (Pfizer) 2 (purple) ANAID RUY-ALISTAIR Other [facility] Other 12-25-2020 COVID-19 (Pfizer) 1 (purple) ANAID RUY-ALISTAIR Other [facility] Other 08-24-2016 influenza, seasonal, injectable Us 1 Work Phone: [facility] Work Phone: 08-24-2016 pneumococcal conjuga te vaccine, 13 valent Us 1 Work Phone: [facility] Work Phone: 02-20-2014 tetanus toxoid, reduced diphtheria toxoid, and acellular pertussis vaccine, adsorbed ANAID RUY-ALISTAIR Other [facility] Other 10-23-2012 influenza virus vaccine, unspecified formulation Us 1 Work Phone: [facility] Work Phone: 10-23-2012 tetanus toxoid, reduced diphtheria toxoid, and acellular pertussis vaccine, adsorbed Us 1 Work Phone: [facility] Work Phone: Payers Date Payer Category Payer Medicaid [id number] 2018 Medicaid [employer] [facility] [facility] [id number] 2018-Present [phone] [address] [place] [address] Medicaid [id number] 2011 Medicaid [id number] 1977 Unknown [id number] 1975 Unknown [id number] 1977 Unknown [id number] 1977 Unknown [id number] 1975 Unknown [id number] Medicaid [id number] Social History Date Type Detail Facility Start: 02-02-2022 End: 05-26-2023 Tobacco smoking status MDIS Never smoked tobacco [facility] Work Phone: Start: 09-01-2020 End: 05-30-2023 Alcohol intake Current non-drinker of alcohol (finding) [facility] Start: 1975 Sex Assigned At Not on file [facility] Start: 01-09-2022 End: 01-19-2022 Exposure to SARS-CoV-2 (event) Not sure [facility] Start: 03-09-2023 End: 04-25-2023 Sex Assigned At [facility] Start: 01-13-2023 Tobacco use and exposure Smokeless tobacco non-user [facility] Start: 03-09-2023 End: 04-25-2023 History of Social function [facility] National Score (1-100), lower number is lower risk 86 [facility] Medical Equipment Procedure Code Equipment Code Equipment Origin al Text Equipment Identifier Dates LAPAROSCOPIC SIMONA EN Y GASTRIC BYPASS STAPLE, IMPLANTABLE (GDW) LAPAROSCOPIC SIMONA EN Y GASTRIC BYPASS ()[id number] FDA Start: 09-20-2022 End: 09-20-2022 Clinical Notes 05-13-2015 to 05-30-2023 Sylvia Ayala DO - 05/30/2023 1:00 PM EDT Note Date & Type Note Facility 05-30-2023 Note HNO ID: [id number] Author: Sylvia Ayala DO Service: ? Author Type: Physician Type: Progress Notes Filed: 05/30/2023 1:22 PM Note Text: [facility] SECTION FOR MINIMALLY INVASIVE GYNECOLOGIC SURGERY OUTPATIENT [...] pt agrees with plan Sylvia Ayala DO [facility] 05-30-2023 History of Present illness Narrative Images from the original note were not included. [facility] SECTION FOR MINIMALLY INVASIVE GYNECOLOGIC SURGERY OUTPATIENT [...] Sylvia Ayala DO documented in this encounter [facility]. Other 08-03-2023 Miscellaneous Notes* Telephone Encounter - [...] with Dr. Ayala on 05/06/2023. Routing to [facility] pool. Please advise if it is OK for patient to start estrogen patches. Gloria Alexander RN May 12, 2023 9:30 AM * [facility] 05/11/2023 2:52 PM EDT Reason for call: other - Provider name: Dr. Ayala Additional comments: Patient was told she will not need estrogen pills and she was given a prescription for estrogen. Please call and advise the patient. Recommendation: routed to nurse triage pool [facility] NoteHNO ID: [id number] Author: Sylvia Ayala DO Service: ? Author Type: Physician Type: Progress Notes Filed: 05/10/2023 12:33 PM Note Text: [facility]08-01-2023 History of Present illness Narrative* Sylvia Ayala DO - 05/10/2023 12:32 PM EDT j documented in [facility] Miscellaneous Notes* Telephone Encounter - Zuleyma Jewell [...] her follow up appointment Thank you Sanket Meridian DO * Telephone Encounter - Yudith Mccauley [...] home with rx for Estrogen, none ordered. [facility] pharmacy preferred if appropriate. Advised will forward to [facility] Yudith Mccauley RN * Telephone Encounter [...] has questions regarding estrogen therapy. Please advise: [phone] Recommendation: routed to nurse triage pool Loan Bell documented in [facility] Miscellaneous Notes* Telephone Encounter - Yudith Mccauley RN - 05/09/2023 1:43 PM EDT Duplicate encounter - see today's 05/09/23 TE Closing chart. Yudith L Varnis RN documented in this encounterSt. [facility]23 NoteHNO ID: [id number] Author: Shannan Emerson, CYNDI Service: ? Author Type: Registered Nurse Type: Nursing Progress Note Filed: 05/06/2023 4:38 PM Note Text: 1630 Pt able to void. [facility]200 NoteHNO ID: [id number] Author: Rylan Valdez APRN.CRNA Service: Anesthesiology Author Type: Nurse Mortgage Underwriter Type: Anesthesia Procedure Notes Filed: 05/06/2023 12:33 PM Note Text: ANESTHESIOLOGY PROCEDURE NOTE Airway General Information Procedure Start Time/Medication Administration: 05/06/2023 12:27 PM Patient location during procedure: OR Timeout Performed Pre-procedure: timeout performed Consent Obtained: Yes Patient identity confirmed: arm band, patient and family Staffing WALL MIRROR DEPARTMENT SUPERVISOR: Rylan Valdez APRN.WALL MIRROR DEPARTMENT SUPERVISOR Performed by: SRINIVAS Indications and Patient Condition [...] attempts at approach: 1 SIGNATURE: Rylan Valdez APRN.WALL MIRROR DEPARTMENT SUPERVISOR PATIENT NAME: Romain Mendoza DATE: May 06, 2023 TIME: 12:30 PM CSN: [id number] NoteHNO ID: [id number] Author: Liset Lamb RN Service: ? Author [...] patient have an advanced directive: No Does [facility] have a copy of the patient's advanced [...] prescribed by anesthesia, internal medicine, surgeon, or ORCHESTRA DIRECTOR Stop NSAIDs, Aspirin (ASA), vitamins, herbal supplements, [...] jewelry, body piercing, makeup, contacts, lotions, nail south korean on fingers, or anything in hair on arrival to surgery Wear low healed shoes and loose fitting clothing Leave all valuables at home or with a family member [facility]/parking validation on the day prior to [...] - IV pain medication after surgery, IV REAL ESTATE MARKETING COORDINATOR if ordered by MD, discharged home with [...] if after hours patient instructed to call metal riveting machine operator and ask for incident response coordinator psychiatry resident resident. NANDINI program offered to patient: No Additional teaching as indicated by patient/family learning needs. PATIENT LEARNING EVALUATION AND FOLLOW UP PLAN: Patient and/or family express understanding of upcoming surgery, pre-operative preparation, the operative process, and post-operative instructions. Follow up plan: Complete - No n (more content not included)...[facility]07-17-2023 NoteHNO ID: [id number] Author: Sylvia Ayala, DO Service: ? Author Type: Physician Type: Progress Notes Filed: 04/25/2023 12:31 PM Note Text: [facility] SECTION FOR MINIMALLY INVASIVE GYNECOLOGIC SURGERY OUTPATIENT VISIT DATE 04/25/2023 OUTPATIENT VISIT TYPE NEW PRIMARY CARE PHYSICIAN: Carlos Chris MD [address] [address] REFERRING PHYSICIAN: Gudelia Mi Consultation requested by [...] Cyst with septations and an internal hyperechoic [id number] area 03/17/23: diagnostic laparoscopy Patient underwent diagnostic laparoscopy at [facility] on 03/17/2023 for left ovarian cyst and pelvic pain. The left ovary and tube were adhered at the pelvic brim densely. There are extensive omental adhesions. I was unable to visualize the cuff or the right ovary/tube. I was unable to complete the surgery laparoscopically and ended the surgery. Recommend consult w/ MIGS to consider surgical removal. Gudelia Mi MD [facility] hx: grandma (mom side) uterine Grandma (dad side) ovarian cancer Surghx: WOJCIECH, C/S x 3, bariatric surgery, diagnostic laparoscopy, right toe surgery Past Gynecologic History: Chief Counsel History LMP: 03/12/2011, Hysterectomy Age at Menarche: Age at First : Age at Menopause: Chief Counsel History Comments: Sexual Activity: Yes; Male; hysterectomy Contraception: Surgical Past Obstetrical History: OB History T5 L5 SAB0 IAB0 Ectopic0 Multiple0 Live Births5 Past Medical History: PAST MEDICAL HISTORY Diagnosis Date Asthma 03/2016 + VICKIE at [facility]. Depressive disorder, not elsewhere classified Encounter [...] BYPASS HX 09/20/2022 Reun Y IUD INSERTION (SECRETARY TO THE VICE PRESIDENT DEPT)_*FL 07/17/2007 Mirena IUD REMOVAL (SECRETARY TO THE VICE PRESIDENT DEPT)_*FL 10/23/2007 Mirena L'SCOPE DX W/WO BRUSHINGS/WASHINGS [...] taking: Reported on 04/25/2023) cyanocobalamin/folic acid (VITAMIN K75-BWZPP ACID) 1,000-400 mcg lozg Dissolve under the tongue. citalopram (CELEXA) 20 mg tablet 20 mg. (Patient not taking: No sig reported) ibupr (more content not included)...[facility]07-17-2023 Instructions* Patient Instructions* Roseanna DO Sylvia - 04/25/2023 12:30 PM EDT Images from the original note were not included. Please visit the following website for the [facility] surgery guide. [email or web address]/guest-services/surgery- guide MINIMALLY INVASIVE GYNECOLOGIC SURGERY (MIGS)/BENIGN GYNECOLOGY CONTACTS: Surgeons: Dr. Sylvia Ayala Dr. Lor Rodrigez Dr. Shellie Ventura Dr. Juliana Mendieta Dr. Barry Dhaliwal Dr. Meghan Gale Baxter: Dr. Mya Garzon [phone] Dr. Denzel Colon [phone] Dr. Samantha Mclaughlin [phone] Nurse Practitioners: Kaur Corley, WATER SYSTEMS ENGINEER.INTERNET MERCHANT Arianne Blanco WATER SYSTEMS ENGINEER.INTERNET MERCHANT Amanda Marquez WATER SYSTEMS ENGINEER.INTERNET MERCHANT Jessie Carballo, WATER SYSTEMS ENGINEER.INTERNET MERCHANT Janeth Lugo APRN, INTERNET MERCHANT Surgery Scheduling Office: Call the day before surgery after 2pm for your surgery arrival time After hours phone number: or toll free Ask the metal riveting machine operator to page the psychiatry resident incident response coordinator.' Business hours are Tuesday - Tuesday from 8:00am - 4:30pm. We are closed on weekends and major holidays. Surgery Locations: [address] /[address] [place] [phone] [facility] [address] [place], [place] [address] 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 locations: [facility] pharmacy, [facility] pharmacy, and the [facility] [place] for [facility] (inside the parking garage on the first [...] DEPARTMENT POST OPERATIVELY, WE RECOMMEND THE [facility] [place] [facility] FOR CONTINUITY OF CARE AND THE BEST ACCESS TO ONE OF THE SURGEONS ON OUR TEAM. Address: [address] [place] [address] documented in this encounterSt. Mary[facility] History of Present illness Narrative* Sylvia Ayala DO - 04/25/2023 10:30 AM EDT Images from the original note were not included. [facility] SECTION FOR MINIMALLY INVASIVE GYNECOLOGIC SURGERY OUTPATIENT VISIT DATE 04/25/2023 OUTPATIENT VISIT TYPE NEW PRIMARY CARE PHYSICIAN: Carlos Chris MD [address] [address] REFERRING PHYSICIAN: Gudelia Mi Consultation requested by [...] Cyst with septations and an internal hyperechoic [id number] area 03/17/23: diagnostic laparoscopy Patient underwent diagnostic laparoscopy at [facility] on 03/17/2023 for left ovarian cyst and [...] laparoscopy, right toe surgery Past Gynecologic History: Chief Counsel History LMP: 03/12/2011, Hysterectomy Age at Menarche: Age at First : Age at Menopause: Chief Counsel History Comments: Sexual Activity: Yes; Male; hysterectomy Contraception: Surgical Past Obstetrical History: OB History T5 L5 SAB0 IAB0 Ectopic0 Multiple0 Live Births5 Past Medical History: PAST MEDICAL HISTORY Diagnosis Date Asthma 03/2016 + VICKIE at [facility]. Depressive disorder, not elsewhere classified Encounter [...] BYPASS HX 09/20/2022 Reun Y IUD INSERTION (SECRETARY TO THE VICE PRESIDENT DEPT)_*FL 07/17/2007 Mirena IUD REMOVAL (SECRETARY TO THE VICE PRESIDENT DEPT)_*FL 10/23/2007 Mirena L'SCOPE DX W/WO BRUSHINGS/WASHINGS [...] taking: Reported on 04/25/2023) cyanocobalamin/folic acid (VITAMIN V28-CGDIN ACID) 1,000-400 mcg lozg Dissolve under the [...] plan. Sylvia Ayala DO documented in this encounterSt. [facility] Miscellaneous Notes* Telephone Encounter - Erinn Elias RN - 03/24/2023 8:27 AM EDT Appointments for Next 60 Days Date Time Provider Location Dept Phone 04/25/2023 10:30 AM SYLVIA AYALA [facility] [phone] * Telephone Encounter - Erinn Elias RN - 03/24/2023 8:26 AM EDT ----- Message from Tami Melissa RN sent at 03/23/2023 3:38 PM EDT ----- Regarding: Consult Patient calls in to [facility] voicemail. She was referred to Dr. Ayala for MIGS, by Dr. Gudelia Mi at [facility]. There is a consult order in her chart. [facility] nurses are both out this week. Thanks! Tami Melissa, RN documented in this encounterSt. Mary'[facility]06-14-2023 NoteHNO ID: [id number] Author: Gudelia Mi MD Service: ? Author [...] consult w/ MIGs. reviewed findings Gudelia Mi [facility]06-14-2023 History of Present illness Narrative* Gudelia Mi [...] findings Gudelia Mi MD documented in this encounterSt. Mary'[facility]06-12-2023 NoteHNO ID: [id number] Author: Gudelia Mi MD Service: ? Author Type: Physician Type: Progress Notes Filed: 03/21/2023 11:45 AM Note Text: Patient underwent diagnostic laparoscopy at [facility] on 03/17/2023 for left ovarian cyst and pelvic pain. The left ovary and tube were adhered at the pelvic brim densely. There are extensive omental adhesions. I was unable to visual ize the cuff or the right ovary/tube. I was unable to complete the surgery laparoscopically and ended the surgery. Recommend consult w/ MIGS to consider surgical removal. Gudelia Mi, [facility]05-31-2023 NoteHNO ID: [id number] Author: Gudelia Mi MD Service: ? Author [...] L5 SAB0 IAB0 Ectopic0 Multiple0 Live Births5 Chief Counsel History LMP: 03/12/2011, Hysterectomy Age at Menarche: Age at First : Age at Menopause: Chief Counsel History Comments: Sexual Activity: Yes; Male; hysterectomy Contraception: Surgical PAST MEDICAL HISTORY Diagnosis Date Asthma 03/2016 + VICKIE at [facility]. Depressive disorder, not elsewhere classified Encounter [...] BYPASS HX 09/20/2022 Reun Y IUD INSERTION (SECRETARY TO THE VICE PRESIDENT DEPT)_*FL 07/17/2007 Mirena IUD REMOVAL (SECRETARY TO THE VICE PRESIDENT DEPT)_*FL 10/23/2007 Mirena LIG/TRNSXJ FLP TUBE ABDL/VAG [...] ORAL Take by mouth. cyanocobalamin/folic acid (VITAMIN K63-IMKYN ACID) 1,000-400 mcg lozg Dissolve under the [...] Making Level: 1 - N/A Gudelia Mi [facility]05-31-2023 History of Present illness Narrative* Gudelia Mi [...] L5 SAB0 IAB0 Ectopic0 Multiple0 Live Births5 Chief Counsel History LMP: 03/12/2011, Hysterectomy Age at Menarche: Age at First : Age at Menopause: Chief Counsel History Comments: Sexual Activity: Yes; Male; hysterectomy Contraception: Surgical PAST MEDICAL HISTORY Diagnosis Date Asthma 03/2016 + VICKIE at [facility]. Depressive disorder, not elsewhere classified Encounter [...] BYPASS HX 09/20/2022 Reun Y IUD INSERTION (SECRETARY TO THE VICE PRESIDENT DEPT)_*FL 07/17/2007 Mirena IUD REMOVAL (SECRETARY TO THE VICE PRESIDENT DEPT)_*FL 10/23/2007 Mirena LIG/TRNSXJ FLP TUBE ABDL/VAG [...] ORAL Take by mouth. cyanocobalamin/folic acid (VITAMIN J94-TEEYL ACID) 1,000-400 mcg lozg Dissolve under the [...] N/A Gudelia Mi MD documented in this encounterSt. Mary'[facility]05-[facility] History and physical note * Gudelia Mi [...] Asthma 03/2016 + VICKIE at [facility]. Depressive disorder, not elsewhere classified Encounter [...] BYPASS HX 09/20/2022 Reun Y IUD INSERTION (SECRETARY TO THE VICE PRESIDENT DEPT)_*FL 07/17/2007 Mirena IUD REMOVAL (SECRETARY TO THE VICE PRESIDENT DEPT)_*FL 10/23/2007 Mirena LIG/TRNSXJ FLP TUBE ABDL/VAG APPR UNI/BI 2009 Tubal ligation PAST SURGICAL HISTORY OF 1986 Eye surgery TOTAL ABDOMINAL HYSTERECT W/WO RMVL TUBE OVARY 04/22/2011 [facility] Current Outpatient Medications Medication Sig Dispense Refill POTASSIUM ORAL Take by mouth. MULTIVITAMIN ORAL Take by mouth. CALCIUM ORAL Take by mouth. cyanocobalamin/folic acid (VITAMIN V44-XDRGP ACID) 1,000-400 mcg lozg Dissolve under the [...] medications for this visit. ALLERGIES: Citalopram, Codeine, [place], and Nsaids (Non-Steroidal Anti- Inflammatory Drug) PERSONAL [...] allergies Gudelia Mi M.D. documented in this encounterSt. Mary'S [facility]05-16-2023 Miscellaneous Notes* Telephone Encounter - Crystal Plummer RN - 02/22/2023 3:46 PM EDT Form signed by and faxed to [facility] * Telephone Encounter - Crystal Plummer RN - 02/22/2023 10:22 AM EDT Patient would like to be scheduled at [facility] for MRI, they can get her in sooner on the and we have checked and they are unable to get her in here at [facility] until March 15. Please send order to [facility]. Sheis asking for new order to be sent on [facility] form- hospital told her to not send a copy of our order. [facility] order form on desk for signature documented in this encounterSt. Mary'S [facility]05-02-2023 Miscellaneous Notes* Telephone Encounter - Crystal Plummer RN - 02/08/2023 10:04 AM EDT Images from the original note were not included. I called patient and informed her of Lab and MRI ordered. she is scheduled for bloodwork today. Transferred her to schedule MRI. Gudelia Mi MD [facility] Ob-Chief Counsel Pool Please call and schedule MRI for patient. ordered CEA and ca 19-9. Need this done before her surgery. Thanks. See phone note. Gudelia Mi MD documented in this encounterSt. Mary'S [facility]04-27-2023 NoteHNO ID: [id number] Author: Gudelia Mi MD Service: ? Author Type: Physician Type: Progress Notes Filed: 02/08/2023 3:10 PM Note Text: Romain Mendoza is a 47 year old female who presents for problem visit for f/u pelvic pain and adenexal masses . HPI: US done. Ca 125 normal. No new c/o today. Still has pain. OB History T5 L5 SAB0 IAB0 Ectopic0 Multiple0 Live Births5 Chief Counsel History LMP: 03/12/2011, Hysterectomy Age at Menarche: Age at First : Age at Menopause: Chief Counsel History Comments: Sexual Activity: Yes; Male; hysterectomy Contraception: Tubal Ligation, Surgical PAST MEDICAL HISTORY Diagnosis Date Asthma 03/2016 + VICKIE at [facility]. Depressive disorder, not elsewhere classified Encounter [...] BYPASS HX 09/20/2022 Reun Y IUD INSERTION (SECRETARY TO THE VICE PRESIDENT DEPT)_*FL 07/17/2007 Mirena IUD REMOVAL (SECRETARY TO THE VICE PRESIDENT DEPT)_*FL 10/23/2007 Mirena LIG/TRNSXJ FLP TUBE ABDL/VAG [...] ORAL Take by mouth. cyanocobalamin/folic acid (VITAMIN S13-ERQVX ACID) 1,000-400 mcg lozg Dissolve under the [...] Making Level: 1 - N/A Gudelia Mi, [facility]04-06-2023 NoteHNO ID: [id number] Author: Gudelia Mi MD Service: ? Author Type: Physician Type: Progress Notes Filed: 01/13/2023 12:10 PM Note Text: Geospatial Information Scientist offered: Patient declines. Romain Mendoza is a [...] L5 SAB0 IAB0 Ectopic0 Multiple0 Live Births5 Chief Counsel History LMP: 03/12/2011, Hysterectomy Age at Menarche: Age at First : Age at Menopause: Chief Counsel History Comments: Sexual Activity: Yes; Male; hysterectomy Contraception: Tubal Ligation, Surgical PAST MEDICAL HISTORY Diagnosis Date Asthma 03/2016 + VICKIE at [facility]. Depressive disorder, not elsewhere classified Encounter [...] X3 GASTRIC BYPASS HX 09/20/2022 IUD INSERTION (SECRETARY TO THE VICE PRESIDENT DEPT)_*FL 07/17/2007 Mirena IUD REMOVAL (SECRETARY TO THE VICE PRESIDENT DEPT)_*FL 10/23/2007 Mirena LIG/TRNSXJ FLP TUBE ABDL/VAG [...] ORAL Take by mouth. cyanocobalamin/folic acid (VITAMIN O90-PCRNZ ACID) 1,000-400 mcg lozg Dissolve under the [...] external genitalia normal, normal Bartholin's glands, urethra, [place]'s glands, no vulvar lesions, good vaginal support, [...] Moderate: 1+ chronic illnesse (more content not included)...[facility]03-30-2023 Evaluation note* Encounter Date Diagnosis Assessment Notes Treatment Notes Treatment Clinical Notes Dec, Vitamin D deficiency , unspecified (ICD-10 - E55.9) Dec, Anemia, unspecified (ICD-10 - D64.9) Dec, Vitamin B12 deficiency (ICD-10 - E53.8) Dec, Malabsorption (ICD-1 0 - K90.9) Dec, History of bariatric surgery (ICD-10 - Z98.84) [facility]. Other 01-23-2023 Evaluation note* Encounter Date Diagnosis Assessment Notes Treatment Notes Treatment Clinical Notes Oct, Other Reviewed [address] [facility] diet progression. I reviewed which foods patient [...] to daily MVI. Patient shows good understanding. [facility]. Other 01-23-2023 Evaluation note* Encounter Date Diagnosis [...] exercise for continued long-term weight loss success [facility] [email or web address]. Other 01-23-2023 Evaluation note* Encounter Date Diagnosis Assessment Notes Treatment Notes Treatment Clinical Notes Oct, Vitamin D deficiency , unspecified (ICD-10 - E55.9) Oct, Anemia, unspecified (ICD-10 - D64.9) Oct, Vitamin B12 deficiency (ICD-10 - E53.8) Oct, Malabsorption (ICD-1 0 - K90.9) Oct, History of bariatric surgery (ICD-10 - Z98.84) [facility]. Other 01-09-2023 Evaluation note* Encounter Date Diagnosis Assessment Notes Treatment Notes Treatment Clinical Notes Oct, Surgery follow-up examination (ICD-10 - Z09) Continue activity restrictions. Oct, Other Advance diet pe r protocol Continue MVI with Fe, PPI Reviewed the rules for retirement weight loss success. Continue to increase walking for exercise. [facility] [employer]. Other 01-09-2023 Evaluation note* Encounter Date Diagnosis [...] given, patient shows good understanding. [facility] [employer] [facility]. Other 12-27-2022 Evaluation note* Encounter Date Diagnosis Assessment Notes Treatment Notes Treatment Clinical Notes Sep, Other Reviewed pur eed diet progression. Patient was instructed to start purees today 10/05. I reviewed how to blend foods appropriately to one consistency using a lorry weigher. Pureed food examples and recipes were provided [...] packet was given, patient shows good understanding. [facility] [employer]. Other 12-27-2022 Evaluation note* Encounter Date Diagnosis [...] if able to compensate increased fluid loss [facility]. Other 12-14-2022 Hospital Discharge instructions Activity on [...] Has Patient had Chest Pain or an [place] during this Visit? : No * It is important to understand risk factors for heart disease : It is important to understand risk factors for heart disease * so you can work with your doctor to help prevent further cardiac : so you can work with your doctorto help prevent further cardiac injury. [employer] Discharge Instructions from 09/22/2022 4:19 PM: * Card Mounter Followup : Alphonse Galvan MD ([id number]) - Pulmonology * Card Mounter Address and Phone : [address] [address] [phone] * Card Mounter Instructions : Please call to schedule an [...] 30 : Additionally, a study by the [facility] shows that sleep apnea may be tied [...] * Discharge Physician: : Anaid Garsia MD ([id number]) - Surgery * Follow up with Ordering Physician : 2 * Discharge Physician Specialty : Week(s) * Discharge Physician Phone: : [address] [address] [phone] * Patient stated Primary Care Provider : [...] not submerge incision until okayed by office. [facility] 12-14-2022 Evaluation + Plan note Assessment and [...] shakes per day starting the second week. [facility] 12-14-2022 Discharge summary* Discharge Summary Note : [...] any lotio ns or moisturizers on incisions. [facility] [id number] Hospital Discharge instructions [employer] Discharge Instructions from 09/20/2022 4:46 PM: * Card Mounter Followup : Alphonse Galvan MD ([id number]) - Pulmonology * Card Mounter Address and Phone : [address] [address] [phone] * Card Mounter Instructions : Please call to schedule an appointment upon discharge. ED Discharge Education Evaluation from 09/20/2022 6:38 PM: * Educ Topic #1 : Yes Patient Transfer Information from 09/20/2022 6:38 PM: * Sensory Screening : Denies problems or history * Does Patient have hearing aids? : No Physician Follow-up Plan/Appointments from 09/20/2022 6:38 PM: * Patient stated Primary Care Provider : OTHER [facility] 12-12-2022 Evaluation note* Encounter Date Diagnosis Assessment [...] mass inde x 38.0-38.9 (ICD-10 - Z68.38) [facility]. Other 11-17-2022 Evaluation note* Encounter Date Diagnosis [...] introduced at 6 week follow up appointment. [facility]. Other 11-17-2022 Evaluation note* Encounter Date Diagnosis [...] personal performance and is accurate and complete [facility]. Other 09-14-2022 Evaluation note* Encounter Date Diagnosis [...] personal performance and is accurate and complete [facility]. Other 09-14-2022 Evaluation note* Encounter Date Diagnosis Assessment Notes Treatment Notes Treatment Clinical Notes Jun, Other Today's Lesson: - Review of food recall - Briefly reviewed expectations after surgery Diet Goal: practice the lifelong rules Exercise Recommendations: 150 minutes moderate intensity exercise per week Behavior Goal: - continue to implement the lifelong rules Plan: dietary clearance provided today [facility]. Other 09-11-2022 History general Narrative - Reported* Type Description Date Medical History sleep apnea, CPAP is 2 yrs old, uses it every night but device is recalled, PCP will order a new one Medical History asthma Medical History hypertension Medical History depression Medical History acid reflux Medical History hypothyroidism Medical History sees provider enrollment specialist fo r chest pain, irregular heart beat, fam Hx, exercise stress test 2021 WNL Surgical History appendectomy 2019 Surgical History right knee meniscus Surgical History x 3 Surgical History growth removed above right eye as a child Surgical History hysterectomy 2010 Hospitalization History [place] [facility] chest pain [facility]. Other 08-18-2022 Evaluation note* Encounter Date Diagnosis [...] personal performance and is accurate and complete [facility]. Other 08-18-2022 Evaluation note* Encounter Date Diagnosis Assessment Notes Treatment Notes Treatment Clinical Notes May, Other Today's Lesson: - Review of food recall Diet Goal: practice the lifelong rules Exercise Recommendations: 150 minutes moderate intensity exercise per week Behavior Goal: - continue to implement the lifelong rules [facility]. Other 08-18-2022 Evaluation note* Encounter Date Diagnosis [...] and is not at risk for . [facility] [employer]. Other 07-27-2022 Evaluation note* Encounter Date Diagnosis [...] personal performance and is accurate and complete. [facility] [employer]. Other 06-27-2022 Evaluation note* Encounter Date Diagnosis Assessment Notes Treatment Notes Treatment Clinical Notes Mar, Other Today's Lesson: - Review of dietary recall - Suggestions provided Diet Goal: practice the lifelong rules Exercise Recommendations: 150 minutes moderate intensity exercise per week Behavior Goal: - Continue to follow the lifelong rules - 1-2# wt loss per week [facility] Other 06-11-2022 History general Narrative - Reported* Type Description Date Medical History sleep apnea, CPAP is 2 yrs old, uses it every night Medical History asthma Medical History hypertension Medical History depression Medical History acid reflux Medical History hypothyroidism Medical History sees provider enrollment specialist fo r chest pain, irregular heart beat, fam Hx, exercise stress test 2021 WNL Surgical History appendectomy 2019 Surgical History right knee meniscus Surgical History x 3 Surgical History growth removed above right eye as a child Surgical History hysterectomy 2009 Hospitalization History [place] [facility] chest pain [facility] Other 06-08-2022 Evaluation note* Encounter Date Diagnosis [...] Mar, Vitamin D deficiency (ICD-10 - E55.9) [facility] Other 05-24-2022 Evaluation note* Encounter Date Diagnosis Assessment Notes Treatment Notes Treatment Clinical Notes February, Other Today's Lesson: - Had Romain download and set up [employer] pal profile, set calories to 1500 per day - Reviewed how to scan bar codes and how to manually enter food items - Reviewed the importance of measuring out portions - Recommended keeping meals simple Diet Goal: practice the lifelong rules Exercise Recommendations: 150 minutes moderate intensity exercise per week Behavior Goal: 1. Use [employer] pal and track food intake 2. 1-2# wt loss/week [facility]. Other 05-24-2022 Evaluation note* Encounter Date Diagnosis Assessment Notes Treatment Notes Treatment Clinical Notes February, Sleep apnea (ICD-10 - G47.30) Counseled on consistent CPAP use February, Primary hypertension (ICD-10 - I10) February, Gastroesophageal ref lux (ICD-10 - K21.9) February, Non morbid obesity d ue to excess calories (ICD-10 - E66.09) Counseled on low calorie diet and increase exercise [facility]. Other 04-26-2022 Evaluation note* Encounter Date Diagnosis [...] meals a day 2. track food intake [facility]. Other 04-26-2022 Evaluation note* Encounter Date Diagnosis [...] Jan, Nutritional deficien cy (ICD-10 - E63.9) [facility]. Other 04-12-2022 History of Present illness Narrative* [...] 19, 2022 1:25 PM [facility] Past illness Narrative* Problem Noted [...] of this encounter (statuses as of 05/06/2023) [facility] History of Past illness Narrative* Problem Noted [...] of this encounter (statuses as of 05/09/2023) [facility] History of Past illness Narrative* Problem Noted [...] of this encounter (statuses as of 05/10/2023) [facility] History of Past illness Narrative* Problem Noted [...] of this encounter (statuses as of 05/10/2023) [facility] History of Past illness Narrative* Problem Noted [...] of this encounter (statuses as of 05/12/2023) [facility] History of Past illness Narrative* Problem Noted [...] of this encounter (statuses as of 05/30/2023) [facility] History of Past illness Narrative* Problem Noted [...] of this encounter (statuses as of 01/20/2022) [facility] History of Past illness Narrative* Problem Noted [...] of this encounter (statuses as of 01/20/2022) [facility] of Past illness Narrative* Problem Noted [...] of this encounter (statuses as of 02/08/2023) [facility] History of Past illness Narrative* Problem Noted [...] of this encounter (statuses as of 02/23/2023) [facility] of Past illness Narrative* Problem Noted [...] of this encounter (statuses as of 03/09/2023) [facility] of Past illness Narrative* Problem Noted [...] of this encounter (statuses as of 03/21/2023) [facility] of Past illness Narrative* Problem Noted [...] of this encounter (statuses as of 03/23/2023) [facility] History of Past illness Narrative* Problem Noted [...] of this encounter (statuses as of 03/24/2023) [facility] of Past illness Narrative* Problem Noted [...] of this encounter (statuses as of 04/25/2023) [facility] + Plan note [facility] Evaluation note* Diagnosis Abnormal screening mammogram Abnormal mammogram, unspecified documented in this encounter [facility] note* Diagnosis Abnormal screening mammogram Abnormal mammogram, unspecified documented in this encounter [facility] noteNo [facility] Other Evaluation note* Diagnosis Pelvic and perineal pain- Primary Unspecified symptom associated with female genital organs Ovarian cyst, left Other and unspecified ovarian cyst documented in this encounter [facility] note* Diagnosis Pelvic and perineal pain- Primary Unspecified symptom associated with female genital organs Ovarian cyst, left Other and unspecified ovarian cyst documented in this encounter [facility] note* Diagnosis Peritoneal adhesions- Primary Peritoneal adhesions (postoperative) (postinfection) Adhesion of omentum Peritoneal adhesions (postoperative) (postinfection) Ovarian cyst, left Other and unspecified ovarian cyst [facility] this [facility]* Diagnosis Ovarian cyst, left- Primary Other and unspecified ovarian cyst Peritoneal adhesions Peritoneal adhesions (postoperative) (postinfection) Pelvic pain in female Unspecified symptom associated with female genital organs Preop examination Preoperative examination, unspecified documented in this encounter [facility] note* Diagnosis Post-op pain- Primary Other acute postoperative pain documented in this encounter [facility] note* Diagnosis Pelvic pain in female- Primary Unspecified symptom associated with female genital organs documented in this encounter [facility] general Narrative - Reported* Type Description Date Medical History sleep apnea, CPAP is 2 yrs old, uses it every night Medical History asthma Medical History hypertension Medical History depression Medical History acid reflux Medical History hypothyroidism Medical History sees provider enrollment specialist fo r chest pain, irregular heart beat, fam Hx, has exercise stress test 2020 Surgical History appendectomy 2019 Surgical History right knee meniscus Surgical History x 3 Surgical History growth removed above right eye as a child Surgical History hysterectomy 2010 Hospitalization History [facility] Other [facility] general Narrative - Reported* Type Description Date Medical History sleep apnea, CPAP is 2 yrs old, uses it every night Medical History asthma Medical History hypertension Medical History depression Medical History acid reflux Medical History hypothyroidism Medical History sees provider enrollment specialist fo r chest pain, irregular heart beat, fam Hx, exercise stress test 2021 WNL Surgical History appendectomy 2020 Surgical History right knee meniscus Surgical History x 3 Surgical History growth removed above right eye as a child Surgical History hysterectomy 2009 Hospitalization History [facility] chest pain [facility]. Other [employer] general Narrative - Reported* Type Description Date Medical History sleep apnea, CPAP is 2 yrs old, uses it every night but device is recalled, PCP will order a new one Medical History asthma Medical History hypertension Medical History depression Medical History acid reflux Medical History hypothyroidism Medical History sees provider enrollment specialist fo r chest pain, irregular heart beat, fam Hx, exercise stress test 2021 WNL Surgical History appendectomy 2020 Surgical History right knee meniscus Surgical History x 3 Surgical History growth removed above right eye as a child Surgical History hysterectomy 2009 Hospitalization History [facility]. Other history general Narrative - Reported* Type Description Date Medical History sleep apnea, got new CPAP Medical History asthma Medical History hypertension Medical History depression Medical History acid reflux Medical History hypothyroidism Medical History sees provider enrollment specialist fo r chest pain, irregular heart beat, fam Hx, exercise stress test 2021 WNL Surgical History appendectomy 2020 Surgical History right knee meniscus Surgical History x 3 Surgical History growth removed above right eye as a child Surgical History hysterectomy 2010 Surgical History infusion right great toe 022 Hospitalization History [place] [facility] chest pain [facility]. Other history general Narrative - Reported* Type Description Date Medical History sleep apnea, got new CPAP Medical History asthma Medical History hypertension Medical History depression Medical History acid reflux Medical History hypothyroidism Medical History sees provider enrollment specialist fo r chest pain, irregular heart beat, fam Hx, exercise stress test 2021 WNL Surgical History appendectomy 2020 Surgical History right knee meniscus Surgical History x 3 Surgical History growth removed above right eye as a child Surgical History hysterectomy 2010 Surgical History infusion right great toe 022 Surgical History LAPAROSCOPIC SIMONA-EN -Y GASTRIC BYPASS (RUY-ALISTAIR) [place] Hospitalization History [facility] chest pain [facility]. Other [employer] general Narrative - Reported* Type Description Date Medical History sleep apnea, got new CPAP Medical History asthma Medical History hypertension Medical History depression Medical History acid reflux Medical History hypothyroidism Medical History sees provider enrollment specialist fo r chest pain, irregular heart beat, [...] bdominal pain/ had bladder infection no admission [facility] Other [facility] Narrative - Reported* Type Description Date Medical History sleep apnea, got new CPAP Medical History asthma Medical History hypertension Medical History depression Medical History acid reflux Medical History hypothyroidism Medical History sees provider enrollment specialist fo r chest pain, irregular heart beat, [...] History tubes and ovaries removed [facility] bdominal pain/ had bladder infection no admission [facility]. Other Hospital Discharge instructions Activity on Discharge [...] Has Patient had Chest Pain or an [place] during this Visit? : No * It is important to understand risk factors for heart disease : It is important to understand risk factors for heart disease * so you can work with your doctor to help prevent further cardiac : so you can work with your doctorto help prevent further cardiac injury. [employer] Discharge Instructions from 09/22/2022 4:19 PM: * Card Mounter Followup : Alphonse Galvan MD ([id number]) - Pulmonology * Card Mounter Address and Phone : [address] [place] [phone] * Card Mounter Instructions : Please call to schedule an [...] 30 : Additionally, a study by the [facility] shows that sleep apnea may be tied [...] * Discharge Physician: : Anaid Garsia MD ([id number]) - Surgery * Follow up with Ordering Physician : 2 * Discharge Physician Specialty : Week(s) * Discharge Physician Phone: : [phone] [phone] * Patient stated Primary Care Provider : [...] not submerge incision until okayed by office. [facility] Reason for referral (narrative)* Diagnostic Procedure Only (Routine) - Closed Specialty Diagnoses / Procedures Referred By Alesia lemons Referred To Contact [facility] Diagnoses Abnormal screening mammogram Procedures US BREAST LTD LT US BREAST UNI REAL TIME WITH IMAGE LIMITED Angle Fagan APRN.CNM [address] [place] [address] [facility] [address] [place] [address] Referral ID Status Reason Start Date Expiration Date V isits Requested Visits Authorized [id number] Closed Auto-Generate d Referral 12/16/2021 01/15/2023 1 1 [facility] for visit Narrative* Diagnostic Procedure Only (Routine) - Closed Specialty Diagnoses / Procedures Referred By Alesia lemons Referred To Contact [facility] Diagnoses Abnormal screening mammogram Procedures VIVIANE DIAGNOSTIC LT DIAGNOSTIC MAMMOGRAPHY COMPUTER-AIDED DETCJ UNI Angle Fagan APRN.CNM [address] [place] [address] [facility] [address] [place] [address] Referral ID Status Reason Start Date Expiration Date V isits Requested Visits Authorized [id number] Closed Auto-Generate d Referral 12/16/2021 01/15/2023 1 1 [facility] for visit Narrative* Diagnostic Procedure Only (Routine) - Closed Specialty Diagnoses / Procedures Referred By Cristianac t Referred To Contact [facility] Diagnoses Abnormal screening mammogram Procedures US BREAST LTD LT US BREAST UNI REAL TIME WITH IMAGE LIMITED Angle Fagan APRN.CNM [address] [place] [address] [facility] [address] [place] [address] Referral ID Status Reason Start Date Expiration Date V isits Requested Visits Authorized [id number] Closed Auto-Generate d Referral 12/16/2021 01/15/2023 1 1 [facility] for visit Narrativesurgery education, review [facility] requirements [facility] Purpose Family History No Family [...] CONSULT TO MINIMALLY INVASIVE GYNECOLOGIC SURGERY OFFICE/OUTPATIENT [facility] 60-74 MINUTES Gudelia Mi MD [address] [place] [address] Referral ID Status Reason Start Date Expiration Date Visits Requested Visits Authorized [id number] Authorized PCP Requested Referral Auto-Generate d Referral 03/23/2023 03/22/2024 1 1 Specialty Diagnoses / Procedures Referred By Cristianac t Referred To Contact [facility] Diagnoses Pelvic and perineal pain Procedures MRI PELVIS WO/W IVCON MRI PELVIS W/O & W/CONTRAST MATERIAL Gudelia Mi MD [address] [place] [address] [facility] Referral ID Status Reason Start Date Expiration Date Visits Requested Visits Authorized [id number] Pending Review Auto-Generat ed Referral 02/08/2023 03/09/2024 1 1 Additional Source Comments Source Comments (unrecognize d section and content) In the event this informatio n is protected by the Federal Confidentiality of Alcohol and Drug Abuse Patient Records regulations: The Federal rules restrict any use of the information to criminally investigate or prosecute any alcohol or drug abuse patient.[facility] the event this information is protected by the Federal Confidentiality of Alcohol and Drug Abuse Patient Records regulations: The Federal rules restrict any use of the information to criminally investigate or prosecute any alcohol or drug abuse patient.[facility] the event this information is protected by the Federal Confidentiality of Alcohol and Drug Abuse Patient Records regulations: The Federal rules restrict any use of the information to criminally investigate or prosecute any alcohol or drug abuse patient.[facility] the event this information is protected by the Federal Confidentiality of Alcohol and Drug Abuse Patient Records regulations: The Federal rules restrict any use of the information to criminally investigate or prosecute any alcohol or drug abuse patient.[facility] the event this information is protected by the Federal Confidentiality of Alcohol and Drug Abuse Patient Records regulations: The Federal rules restrict any use of the information to criminally investigate or prosecute any alcohol or drug abuse patient.[facility] the event this information is protected by the Federal Confidentiality of Alcohol and Drug Abuse Patient Records regulations: The Federal rules restrict any use of the information to criminally investigate or prosecute any alcohol or drug abuse patient.[facility] the event this information is protected by the Federal Confidentiality of Alcohol and Drug Abuse Patient Records regulations: The Federal rules restrict any use of the information to criminally investigate or prosecute any alcohol or drug abuse patient.[facility] the event this information is protected by the Federal Confidentiality of Alcohol and Drug Abuse Patient Records regulations: The Federal rules restrict any use of the information to criminally investigate or prosecute any alcohol or drug abuse patient.[facility] the event this information is protected by the Federal Confidentiality of Alcohol and Drug Abuse Patient Records regulations: The Federal rules restrict any use of the information to criminally investigate or prosecute any alcohol or drug abuse patient.[facility] the event this information is protected by the Federal Confidentiality of Alcohol and Drug Abuse Patient Records regulations: The Federal rules restrict any use of the information to criminally investigate or prosecute any alcohol or drug abuse patient.[facility] the event this information is protected by the Federal Confidentiality of Alcohol and Drug Abuse Patient Records regulations: The Federal rules restrict any use of the information to criminally investigate or prosecute any alcohol or drug abuse patient.[facility] the event this information is protected by the Federal Confidentiality of Alcohol and Drug Abuse Patient Records regulations: The Federal rules restrict any use of the information to criminally investigate or prosecute any alcohol or drug abuse patient.[facility] the event this information is protected by the Federal Confidentiality of Alcohol and Drug Abuse Patient Records regulations: The Federal rules restrict any use of the information to criminally investigate or prosecute any alcohol or drug abuse patient.[facility] the event this information is protected by the Federal Confidentiality of Alcohol and Drug Abuse Patient Records regulations: The Federal rules restrict any use of the information to criminally investigate or prosecute any alcohol or drug abuse patient.[facility] the event this information is protected by the Federal Confidentiality of Alcohol and Drug Abuse Patient Records regulations: The Federal rules restrict any use of the information to criminally investigate or prosecute any alcohol or drug abuse patient.[facility] Care Teams (unrecognized sec tion and content) Lap Hand Tool Relationship Specialty Start Date End Date Carlos Chris Chi PCP - General Gerontology 12/28/16 Lap Hand Tool Relationship Specialty Start Date End Date Carlos Chris Chi PCP - General Gerontology 12/28/16 Lap Hand Tool Relationship Specialty Start Date End Date Aries, Carlos Chi PCP - General Gerontology 12/28/16 Lap Hand Tool Relationship Specialty Start Date End Date Ivelisse Phillip MD [address] [place], [place] [address] PCP - General Internal Medicine 11/17/10 12/27/16 Aries Carlos Chi [address] [place], [place] [id number] [phone] PCP - General Gerontology 12/28/16 Lap Hand Tool Relationship Specialty Start Date End Date Aries Carlos Chi PCP - General Gerontology 12/28/16 Lap Hand Tool Relationship Specialty Start Date End Date Aries Carlos Chi PCP - General Gerontology 12/28/16 Lap Hand Tool Relationship Specialty Start Date End Date Carlos Chris Chi PCP - General Gerontology 12/28/16 Lap Hand Tool Relationship Specialty Start Date End Date Aries Carlos Chi PCP - General Gerontology 12/28/16 Lap Hand Tool Relationship Specialty Start Date End Date Aries, Carlos Chi PCP - General Gerontology 12/28/16 Lap Hand Tool Relationship Specialty Start Date End Date Aries Carlos Chi PCP - General Gerontology 12/28/16 Lap Hand Tool Relationship Specialty Start Date End Date Carlos Chris Chi PCP - General Gerontology 12/28/16 REASON FOR VISIT (unrecogniz ed section and content) 6 MOS FUV RYGB Reason Comments Orders Reason Comments Pre-Op Visit Reason Comments Post Op Consult to [facility] Reason Comments Appointment Specialty Diagnoses / Procedures Referred By Contac t Referred To Contact Diagnoses Peritoneal adhesions Adhesion of omentum Ovarian cyst, left Procedures CONSULT TO MINIMALLY INVASIVE GYNECOLOGIC SURGERY OFFICE/OUTPATIENT [facility] 60-74 MINUTES Gudelia Mi MD [address] [place] [address] Referral ID Status Reason Start Date Expiration Date V isits Requested Visits Authorized [id number] Closed PCP Requested Referral Auto-Generated Referral 03/23/2023 03/22/2024 1 1 Reason Comments Post Op Pain Reason Comments Medication Question Reason Comments Post Op 3 weeks Goals (unrecognized section and content) INFORMATION SOURCE (unrecogn ized section and content) DATE CREATED AUTHOR AUTHOR'S ORGANIZ ATION 01/14/2023 [facility] DATE CREATED AUTHOR AUTHOR'S ORGANIZ ATION 05/11/2023 [facility] DATE CREATED AUTHOR AUTHOR'S ORGANIZ ATION 05/31/2023 [facility] FOR RECORDS PERTAINING TO PATIENTS WHO [...] BE BASED ON THE PRIMARY CLINICAL RECORDS. [employer] provides no warranty or guarantee of the accuracy or completeness of information in this document.
[2023-11-21 10:55] LABS: Absolute Lymphocyte Count 2.61 X10^3/uL (0.83-4.51); Absolute Neutrophil Count 3.4 X10^3/uL (2.0-7.7); Basophil# 0.07 X10^3/uL; Basophil% 1.1 % (0-1); Eosinophil# 0.13 X10^3/uL; Hematocrit 37.7 % (37-47); Hemoglobin 11.9 g/dL (12.0-15.0); Lymphocyte # 2.61 X10^3/ul (0.83-4.51); Lymphocyte % 39.2 % (19-41); Mean Corp Hgb Conc 31.6 g/dL (32-36); Mean Corpuscular Hgb 31.5 pg (27.0-32.0); Mean Corpuscular Volume 99.7 fL (81-99); Mean Platelet Vol. 11.6 fl (6.2-12.0); Monocyte# 0.47 X10^3/uL; Monocyte% 7.1 % (0-10); NRBC Flagged by Analyzer 0 % (0-5); Neutrophil # 3.36 X10^3/uL (2.7-7.7); Neutrophil % 50.3 % (47-70); Platelet Count 224 K/mm3 (150-450); RBC Distribution Width CV 14.8 % (11.6-14.6); RBC Distribution Width SD 54.9 fl (35.1-43.9); Red Blood Count 3.78 M/mm3 (4.2-5.4); White Blood Count 6.7 K/mm3 (4.4-11.0)
[2023-11-21 11:16] LABS: Vitamin B12 523 pg/mL (211-911); Vitamin D,25 Hydroxy 29.8 ng/mL
[2023-11-21 12:55] LABS: ALB/GLOB Ratio 0.8 RATIO (0.9-2.4); AST(SGOT) 61 U/L (15-37); Alanine Aminotransfer ALT/SGPT 72 U/L (13-56); Albumin, Serum 3.5 g/dL (3.2-5.0); Alkaline Phosphatase 75 U/L (45-117); Anion Gap 4 (5-15); BUN 15 mg/dL (7-18); BUN/Creat Ratio 14.6 RATIO (10-20); Calcium,Total 8.4 mg/dL (8.5-10.1); Chloride 107 mmol/L (98-107); Cholesterol 147 mg/dL (200); Creatinine, Serum 1.03 mg/dL (0.55-1.02); EST Glomerular Filtration Rate 61 mL/min (>60); Est Glom Filt Rate - Afr Amer 74 mL/min (>60); Ferritin 115 ng/mL (8-252); Globulin 4.4 g/dL (2.2-4.2); Glucose 86 mg/dL (74-106); High Density Lipoprotein 56 mg/dL; Iron 116 ug/dL (50-170); Potassium 4.1 mmol/L (3.5-5.1); Protein, Total 7.9 g/dL (6.4-8.2); Sodium Level 141 mmol/L (136-145); Triglycerides 71 mg/dL; Very Low Density Lipoprotein 14 mg/dL (5-40)
[2023-11-21 14:39] LABS: Hemoglobin A1c 5.4 % (3.8-5.6)
[2023-11-23 16:27] LABS: Iron Binding Capacity,Total 287 ug/dL (250-450); PERCENT IRON SATURATION 40.4 % (15.0-55.0)
[2023-11-29 08:11] LABS: Copper, Serum or Plasma 105 ug/dL (80-158); Vitamin B1, Thiamine 107.6 nmol/L (66.5-200.0); Zinc, Plasma or Serum 65 ug/dL (44-115)
== END | disposition home or self-care (01) ==
LOC: POLAB3 09:23
PROVIDERS: PCP Family Medicine Geriatric Medicine; Visit Provider Family Medicine Geriatric Medicine
DX: K90.9 Intestinal malabsorption, unspecified (principal); E11.65 Type 2 diabetes mellitus with hyperglycemia; E21.3 Hyperparathyroidism, unspecified; E55.9 Vitamin D deficiency, unspecified; I10 Essential (primary) hypertension; E78.5 Hyperlipidemia, unspecified
CPT/HCPCS: 36415; 80053; 80061; 82306; 82525; 82607; 82728; 82746; 83036; 83540; 83550; 83970; 84425; 84443; 84630; 85025

== ENCOUNTER → 2023-12-01 | Outpatient (CLI) | payer MEDICAID, SELFPAY ==
--- NOTE | 2023-12-01 11:44 | BI_ITS ---
MAMMOGRAPHY - BILATERAL SCREENING REASON FOR EXAM: Female, 48 years old. Routine annual screening examination. PERTINENT HISTORY: Mother with breast cancer. TECHNIQUE: Digital bilateral breast emani (3D mammographic acquisition) in the CC and MLO projections. 2-D mediolateral oblique (MLO) and craniocaudad (CC) views of both breasts were obtained. CAD: Full Field Digital Mammography with Computer Added Detection was performed. COMPARISON: Comparison is made with prior study dated November 30, 2022 and December 21, 2018. FINDINGS: Breast Composition: There are scattered areas of fibroglandular density. There are no dominant masses or suspicious calcifications. Stable small benign-appearing right axillary lymph node. No other significant abnormalities are identified. There has been no significant change since the prior study. BI/SCRN MAMM (CAD)W/EMANI BILAT IMPRESSION: Stable bilateral screening mammogram. Yearly follow-up mammogram recommended. (A) ASSESSMENT CATEGORY: BIRADS Category 2: Benign. A letter regarding these results will be sent to the patient by the facility within 30 days. Approximately 10% of breast cancers are not detected by mammography. A normal mammogram should not delay biopsy of a clinically suspicious abnormality. [id number] Electronically Signed: Carlos Agarwal MD at 13:21 EST ,
--- OUTSIDE RECORDS SUMMARY | 2023-12-01 12:16 | XMS RPT_ITS | CCD ---
Author Name Unknown Address [address] [place] [address] Organization [facility] Care Team Providers Care Boner Meat Name Role Phone Merly Bob NP Unavailable Aries, Carlos Chi Primary Care Provider [phone] ANAID GARSIA Unavailable DONCA ZANDRA Unavailable SPARKLE RODRIGUEZ Unavailable PCP, Other Primary Care Physician PCP, OTHER Primary Care Unavailable DONZANDRA QUINONEZ Attending Unavailable DONCA, ZANDRA Attending Unavailable PCP, OTHER Primary Care Unavailable PCP, OTHER Primary Care Unavailable TANYA BUNCH Attending Unavailable ANAID GARSIA Attending Unavailable PCP, OTHER Primary Care Unavailable [...] ARIES, CARLOS CHI Primary Care Unavailable GUDELIA IM Referring Unavailable GUDELIA MI Attending Unavailable ARIES, CARLOS CHI Primary Care Unavailable ARIES, CARLOS CHI Primary Care Unavailable SYLVIA AYALA Attending Unavailable ARIES, CARLOS CHI Primary Care Unavailable GUDELIA MI Referring Unavailable ARIES, CARLOS CHI Primary Care Unavailable SYLVIA AYALA Attending Unavailable GUDELIA MI Attending Unavailable ARIES, CARLOS CHI Primary Care Unavailable ANAID GARSIA Attending Unavailable ARIES, CARLOS-CHI Primary Care Unavailable Allergies Allergy Classification Reported Allergen(s) Allergy Type Date of Onset Reaction(s) Facility (4 sources) citalopram drug allergy 6 [facility] Work Phone: (20 sources) lithium; Translations: [LITHIUM] drug allergy 6 GI Upset [facility] Work Phone: (17 sources) Citalopram; Translations: [CITALOPRAM] Drug Allergy 3 GI Upset [facility] Work Phone: (17 sources) Codeine; Translations: [CODEINE] Drug Allergy 3 Other: See Comments [facility] (15 sources) Non-steroidal anti-inflammato ry agent; Translations: [NSAIDS (NON-STEROIDAL ANTI-INFLAMMATO RY DRUG)] Drug Allergy 3 Other: See Comments [facility] NEGATED: Highlighted row has been ruled out! (3 sources) natural latex rubber; Translations: [LATEX, NATURAL RUBBER] Drug allergy (disorder) [facility] [place] NEGATED: Highlighted row has been ruled out! 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 05-30-2023 13:00-0400 Systolic blood pressure 117 mm[Hg] Sylvia Billow DO Work Phone: [facility] 05-26-2023 09:00-0400 Body height 152.4 cm A2B RUY-ALISTAIR Other [facility] [employer] Other 05-26-2023 09:00-0400 Body mass index (BMI) [Ratio] 25.58 kg/m2 A2B RUY-ALISTAIR Other [facility] [employer] Other 05-26-2023 09:00-0400 Body weight 59.42 kg A2B RUY-ALISTAIR Other [facility] [employer] Other 05-26-2023 08:00-0400 Diastolic blood pressure 79 mm[Hg] ANAID RUY-ALISTAIR Other [facility] Other 05-26-2023 08:00-0400 Heart rate 63 /min ANADI RUY-ALISTAIR Other [facility] [employer] Other 05-26-2023 08:00-0400 Systolic blood pressure 121 mm[Hg] ANAID RUY-ALISTAIR Other [facility] [employer] Other 04-25-2023 10:08-0400 Diastolic blood pressure 83 mm[Hg] Sylvia Billow DO Work Phone: [facility] 04-25-2023 10:08-0400 Heart rate 70 /min Sylvia Billow DO Work Phone: [facility] 04-25-2023 10:08-0400 Systolic blood pressure 121 mm[Hg] Sylvia Billow DO Work Phone: [facility] 03-23-2023 08:46-0400 Body weight 65.32 kg Gudelia Mi MD Work Phone: [facility] 03-23-2023 08:46-0400 Diastolic blood pressure 62 mm[Hg] Gudelia Mi MD Work Phone: [facility] 03-23-2023 08:46-0400 Systolic blood pressure 110 mm[Hg] Gudelia Mi MD Work Phone: [facility] 03-09-2023 09:19-0400 Body height 151.8 cm Gudelia Mi MD Work Phone: [facility] 03-09-2023 09:19-0400 Body weight 61.69 kg Gudelia Mi MD Work Phone: [facility] 03-09-2023 09:19-0400 Diastolic blood pressure 60 mm[Hg] Gudelia Mi MD Work Phone: [facility] 03-09-2023 09:19-0400 Heart rate 68 /min Gudelia Mi MD Work Phone: [facility] 03-09-2023 09:19-0400 Respiratory rate 16 /min Gudelia Mi MD Work Phone: [facility] 03-09-2023 09:19-0400 SaO2% (BldA) [Mass fraction] 99 % Gudelia Mi MD Work Phone: [facility] 03-09-2023 09:19-0400 Systolic blood pressure 110 mm[Hg] Gudelia Mi MD Work Phone: [facility] 11-01-2022 16:30-0500 Body height 152.4 cm SPARKLE FISTBELL Other [facility] [employer] Other 11-01-2022 16:30-0500 Body mass index (BMI) [Ratio] 33.78 kg/m2 SPARKLE FISTEK Other [facility] [employer] Other 11-01-2022 16:30-0500 Body weight 78.47 kg SPARKLE FISTEK Other [facility] [employer] Other 11-01-2022 16:30-0500 Diastolic blood pressure 85 mm[Hg] SPARKLE FISTEK Other [facility] [employer] Other 11-01-2022 16:30-0500 Heart rate 76 /min SPARKLE FISTEK Other [facility] [employer] Other 11-01-2022 16:30-0500 Systolic blood pressure 125 mm[Hg] SPARKLE FISTEK Other [facility] [employer] Other 11-01-2022 15:30-0500 Body height 152.4 cm ANAID RUY-ALISTAIR Other [facility] [employer] Other 11-01-2022 15:30-0500 Body mass index (BMI) [Ratio] 33.78 kg/m2 ANAID RUY-ALISTAIR Other [facility] [employer]. Other 11-01-2022 15:30-0500 Body weight 78.47 kg ANAID RUY-ALISTAIR Other [facility] [employer] Other 10-18-2022 10:00-0500 Body height 152.4 cm SPARKLE FISTEK Other [facility] [employer] Other 10-18-2022 10:00-0500 Body mass index (BMI) [Ratio] 33.2 kg/m2 SPARKLE FISTEK Other [facility] [employer] Other 10-18-2022 10:00-0500 Body weight 77.11 kg SPARKLE FISTEK Other [facility] [employer] Other 10-18-2022 10:00-0500 Diastolic blood pressure 79 mm[Hg] SPARKLE FISTEK Other [facility] [employer] Other 10-18-2022 10:00-0500 Heart rate 79 /min SPARKLE FISTEK Other [facility] [employer] Other 10-18-2022 10:00-0500 Systolic blood pressure 112 mm[Hg] SPARKLE FISTEK Other [facility] [employer] Other 10-05-2022 15:30-0500 Body height 152.4 cm ANAID REDMOND-ALISTAIR Other [facility] [employer] Other 10-05-2022 15:30-0500 Body mass index (BMI) [Ratio] 33.59 kg/m2 ANAID REDMOND-ALISTAIR Other [facility] [employer] Other 10-05-2022 15:30-0500 Body weight 78.02 kg ANAID GARSIA Other [facility] [employer] Other 10-05-2022 15:30-0500 Diastolic blood pressure 82 mm[Hg] SPARKLE FISTEK Other [facility] [employer] Other 10-05-2022 15:30-0500 Heart rate 92 /min SPARKLE FISTEK Other [facility] [employer] Other 10-05-2022 15:30-0500 Systolic blood pressure 117 mm[Hg] SPARKLE FISTEK Other [facility] [employer] Other 09-22-2022 15:57-0500 Body height 152.4 cm MD Anaid Garsia MD [facility] 09-22-2022 15:57-0500 Body mass index (BMI) [Ratio] 39.18 kg/m2 MD Anaid Garsia MD [facility] 09-22-2022 15:57-0500 Body temperature 97.34 [degF] MD Anaid Garsia MD [facility] 09-22-2022 15:57-0500 Body weight 91 kg MD Anaid Garsia MD [facility] 09-22-2022 15:57-0500 Diastolic blood pressure 77 mm[Hg] MD Anaid Garsia MD [facility] 09-22-2022 15:57-0500 Heart rate 77 /min MD Anaid Garsia MD [facility] 09-22-2022 15:57-0500 Inhaled oxygen concentration 97 % MD Anaid Garsia MD [facility] 09-22-2022 15:57-0500 Respiratory rate 18 /min MD Anaid Garsia MD [facility] 09-22-2022 15:57-0500 Systolic blood pressure 122 mm[Hg] MD Anaid Garsia MD [facility] 08-26-2022 11:00-0500 Diastolic blood pressure 75 mm[Hg] ZANDRA DONCA Other [facility] [employer] Other 08-26-2022 11:00-0500 Heart rate 91 /min ZANDRA DONCA Other [facility] Other 08-26-2022 11:00-0500 Respiratory rate 16 /min ZANDRA DONCA Other [facility] [employer] Other 08-26-2022 11:00-0500 Systolic blood pressure 124 mm[Hg] ZANDRA DONCA Other [facility] Other 08-26-2022 09:00-0500 Body height 152.4 cm ANAID GARSIA Other [facility] [employer] Other 08-26-2022 09:00-0500 Body mass index (BMI) [Ratio] 34.95 kg/m2 ANAID RUY-ALISTAIR Other [facility] [employer] Other 08-26-2022 09:00-0500 Body weight 81.19 kg ANAID RUY-ALISTAIR Other [facility] [employer] Other 07-23-2022 10:30-0400 Body height 152.4 cm ANAID RUY-ALISTAIR Other [facility] [employer] Other 07-23-2022 10:30-0400 Body mass index (BMI) [Ratio] 37.3 kg/m2 ANAID RUY-ALISTAIR Other [facility] [employer] Other 07-23-2022 10:30-0400 Body weight 86.64 kg ANAID URY-ALISTAIR Other [facility] [employer] Other 06-23-2022 17:30-0400 Body height 152.4 cm ZANDRA DONCA Other [facility] [employer] Other 06-23-2022 17:30-0400 Body mass index (BMI) [Ratio] 37.88 kg/m2 ZANDRA DONCA Other [facility] [employer] Other 06-23-2022 17:30-0400 Body weight 88 kg ZANDRA DONCA Other [facility] Other 06-23-2022 17:00-0400 Diastolic blood pressure 79 mm[Hg] ZANDRA DONCA Other [facility] [employer] Other 06-23-2022 17:00-0400 Heart rate 96 /min ZANDRA SPAULDINGCA Other [facility] [employer] Other 06-23-2022 17:00-0400 Respiratory rate 16 /min ZANDRA DONCA Other [facility] Other 06-23-2022 17:00-0400 Systolic blood pressure 130 mm[Hg] ZANDRA DONCA Other [facility] Other 05-27-2022 11:45-0400 Body height 152.4 cm ZANDRA RUBIN Other [facility] Other 05-27-2022 11:45-0400 Body mass index (BMI) [Ratio] 37.69 kg/m2 ZANDRA SPAULDINGCA Other [facility] [employer] Other 05-27-2022 11:45-0400 Body weight 87.54 kg ZANDRA RUBIN Other [facility] [employer] Other 05-27-2022 11:00-0400 Respiratory rate 16 /min ZANDRA DONCA Other [facility] Other 05-27-2022 09:45-0400 Diastolic blood pressure 69 mm[Hg] ZANDRA DONCA Other [facility] Other 05-27-2022 09:45-0400 Heart rate 89 /min ZANDRA DONCA Other [facility] [employer] Other 05-27-2022 09:45-0400 Systolic blood pressure 126 mm[Hg] ZANDRA RUBIN Other [facility] [employer] Other 05-05-2022 13:00-0400 Body height 152.4 cm ZANDRA RUBIN Other [facility] [employer] Other 05-05-2022 13:00-0400 Body mass index (BMI) [Ratio] 39.06 kg/m2 ZANDRA RUBIN Other [facility] [employer] Other 05-05-2022 13:00-0400 Body weight 90.72 kg ZANDRA RUBIN Other [facility] [employer] Other 04-05-2022 10:30-0400 Body height 152.4 cm ANAID RUY-ALISTAIR Other [facility] [employer] Other 04-05-2022 10:30-0400 Body mass index (BMI) [Ratio] 39.06 kg/m2 ANAID RUY-ALISTAIR Other [facility] [employer] Other 04-05-2022 10:30-0400 Body weight 90.72 kg ANAID RUY-ALISTAIR Other [facility] [employer] Other 03-17-2022 17:00-0400 Body height 152.4 cm ZANDRA RUBIN Other [facility] [employer] Other 03-17-2022 17:00-0400 Body mass index (BMI) [Ratio] 40.03 kg/m2 ZANDRA SPAULDINGCA Other [facility] [employer] Other 03-17-2022 17:00-0400 Body weight 92.99 kg ZANDRA SPAULDINGCA Other [facility] [employer] Other 03-02-2022 14:30-0400 Body height 152.4 cm ANAID RUY-ALISTAIR Other [facility] Other 03-02-2022 14:30-0400 Body mass index (BMI) [Ratio] 39.64 kg/m2 ANAID RUY-ALISTAIR Other [facility] Other 03-02-2022 14:30-0400 Body weight 92.08 kg ANAID RUY-ALISTAIR Other [facility] Other 03-02-2022 14:00-0400 Diastolic blood pressure 71 mm[Hg] ZANDRA SPAULDINGCA Other [facility] Other 03-02-2022 14:00-0400 Heart rate 81 /min ZANDRA SPAULDINGCA Other [facility] Other 03-02-2022 14:00-0400 Respiratory rate 16 /min ZANDRA DONCA Other [facility] Other 03-02-2022 14:00-0400 Systolic blood pressure 116 mm[Hg] ZANDRA DONCA Other [facility] Other 02-02-2022 17:15-0400 Body height 152.4 cm ZANDRA RUBIN Other [facility] Other 02-02-2022 17:15-0400 Body mass index (BMI) [Ratio] 40.62 kg/m2 ZANDRA RUBIN Other [facility] Other 02-02-2022 17:15-0400 Body weight 94.35 kg ZANDRA RUBIN Other [facility] Other 02-02-2022 17:15-0400 Diastolic blood pressure 78 mm[Hg] ZANDRA RUBIN Other [facility] Other 02-02-2022 17:15-0400 Heart rate 84 /min ZANDRA RUBIN Other [facility] Other 02-02-2022 17:15-0400 Respiratory rate 16 /min ZANDRA RUBIN Other [facility] Other 02-02-2022 17:15-0400 Systolic blood pressure 111 mm[Hg] ZANDRA RUBIN Other [facility] Other 02-02-2022 16:15-0400 Body height 152.4 cm ANAID RUY-ALISTAIR Other [facility] Other 02-02-2022 16:15-0400 Body mass index (BMI) [Ratio] 40.62 kg/m2 ANAID RUY-ALISTAIR Other [facility] Other 02-02-2022 16:15-0400 Body weight 94.35 kg ANAID GARSIA Other [facility] Other 02-10-2017 13:15-0400 BMI (Body Mass Index) 40.39 kg/m2 Merly Bob NP [facility] Work Phone: 02-10-2017 13:15-0400 Body Temperature 98.1 [degF] Merly Bob NP [facility] Work Phone: 02-10-2017 13:15-0400 BP Diastolic 81 mm[Hg] Merly Bob NP [facility] Work Phone: 02-10-2017 13:15-0400 BP Systolic 134 mm[Hg] Merly Bob NP [facility] Work Phone: 02-10-2017 13:15-0400 BSA (Body Surface Area) 1.95 m2 Merly Bob NP [facility] Work Phone: 02-10-2017 13:15-0400 Height 154.94 cm Merly Bob NP [facility] Work Phone: 02-10-2017 13:15-0400 Pulse (Heart Rate) 70 /min Merly Bob NP [facility] Work Phone: 02-10-2017 13:15-0400 Pulse Oximetry 97 % Merly Bob NP [facility] Work Phone: 02-10-2017 13:15-0400 Respiratory Rate 16 /min Merly Bob NP [facility] Work Phone: 02-10-2017 13:15-0400 Weight 96.98 kg Merly Bob NP [facility] Work Phone: 09-22-2016 13:36-0500 BMI (Body Mass Index) 39.3 kg/m2 Merly Bob NP [facility] Work Phone: 09-22-2016 13:36-0500 Body Temperature 98.4 [degF] Merly Bob NP [facility] Work Phone: 09-22-2016 13:36-0500 BP Diastolic 87 mm[Hg] Merly Bob NP [facility] Work Phone: 09-22-2016 13:36-0500 BP Systolic 125 mm[Hg] Merly Bob NP [facility] Work Phone: 09-22-2016 13:36-0500 BSA (Body Surface Area) 1.92 m2 Merly Bob NP [facility] Work Phone: 09-22-2016 13:36-0500 Height 154.94 cm Merly Bob NP [facility] Work Phone: 09-22-2016 13:36-0500 Pulse (Heart Rate) 90 /min Merly Bob NP [facility] Work Phone: 09-22-2016 13:36-0500 Pulse Oximetry 100 % Merly Bob NP [facility] Work Phone: 09-22-2016 13:36-0500 Respiratory Rate 16 /min Merly Bob NP [facility] Work Phone: 09-22-2016 13:36-0500 Weight 94.35 kg Merly Bob NP [facility] Work Phone: 09-22-2016 13:36-0500 Weight 94.55 kg eMrly Bob NP [facility] Work Phone: Encounters Encounter Date Encounter Type Care Provider Facility Start: 11-24-2023 End: 11-24-[address] [facility] Start: 05-30-2023 End: 05-30-2023 ambulatory [facility] Facility: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.CNM Work Phone: Start: 01-19-2022 VIVIANE DIAG W EMANI LT Cour haile Fagan MISSILE FACILITIES REPAIRER.CNM Work Phone: Start: 12-14-2021 Mammography Us 1 Work Phone: Start: 02-10-2017 End: 02-10-2017 Dietary management education, guidance, and counseling Merly Bob NP Start: 02-10-2017 End: 02-10-2017 Thyroid stimulating hormone (TSH) Merly Bob NP Work Phone: Start: 02-10-2017 End: 02-10-2017 Thyroxine (T4) free Merly Bob NP Work Phone: Start: 09-19-2013 [facility] Gudelia moreno MD Work Phone: Start: 09-11-2010 End: [...] Author Start: 05-03-2026 DIABETES SCREEN DIABETES SCREEN [facility] Start: 05-30-2024 BP CONTROLLED (<130/80) BP CON TROLLED (<130/80) [facility] Start: 05-03-2024 SERUM CREATININE SERUM CREATININE [facility] Start: 03-23-2024 BP CONTROLLED (<130/80) BP CON TROLLED (<130/80) [facility] Start: 03-09-2024 BP CONTROLLED (<130/80) BP CON TROLLED (<130/80) [facility] Start: 02-04-2024 BP CONTROLLED (<130/80) BP CON TROLLED (<130/80) [facility] Start: 09-01-2023 Influenza vaccination INFLUENZA (#1) [facility] Start: 02-08-2023 End: 04-10-2023 Cancer Ag 19-9 [Units/volume] in Serum or Plasma [facility] Work Phone: Immunizations Immunization Date Immunization Notes Care Provider Luis dietrich 07-12-2022 COVID-19 (Moderna) L ow Dose Booster SPARKLE RODRIGUEZ Other [facility] [employer] Other 07-12-2022 influenza, injectabl e, quadrivalent, contains preservative SPARKLE FISTEK Other [facility] [employer] Other 07-28-2021 COVID-19 (Moderna) 3 ANAID BE N-ALISTAIR Other [facility] [employer] Other 06-23-2021 influenza, injectabl e, quadrivalent, contains preservative ANAID RUY-ALISTAIR Other [facility] [employer] Other 01-17-2021 COVID-19 (Pfizer) 2 (purple) ANAID RUY-ALISTAIR Other [facility] [employer] Other 12-25-2020 COVID-19 (Pfizer) 1 (purple) ANAID RUY-ALISTAIR Other [facility] [employer] Other 08-24-2016 influenza, seasonal, injectable Us 1 Work Phone: [facility] Work Phone: 08-24-2016 pneumococcal conjuga te vaccine, 13 valent Us 1 Work Phone: [facility] Work Phone: 02-20-2014 tetanus toxoid, reduced diphtheria toxoid, and acellular pertussis vaccine, adsorbed ANAID RUY-ALISTAIR Other [facility]. Other 10-23-2012 influenza virus vaccine, unspecified formulation Us 1 Work Phone: [facility] Work Phone: 10-23-2012 tetanus toxoid, reduced diphtheria toxoid, and acellular pertussis vaccine, adsorbed Us 1 Work Phone: [facility] Work Phone: Payers Date Payer Category Payer Medicaid [employer] [facility] [id number] 2018-Present [phone] [address] [place] [address] Medicaid [id number] 2017 Medicaid [id number] 2011 Medicaid [id number] 1977 Unknown [id number] 1977 Unknown [id number] 1977 Unknown [id number] 1977 Unknown [id number] 1977 Unknown [id number] 1977 Unknown [id number] Medicaid [id number] Social History Date Type Detail Facility Start: 02-02-2022 End: 05-26-2023 Tobacco smoking status NHIS Never smoked tobacco [facility] Work Phone: Start: 09-01-2020 End: 05-30-2023 Alcohol intake Current non-drinker of alcohol (finding) [facility] Start: 1975 Sex Assigned At Not on file [facility] Start: 01-09-2022 End: 01-19-2022 Exposure to SARS-CoV-2 (event) Not sure [facility] Start: 03-09-2023 End: 04-25-2023 Sex Assigned At [facility] Start: 01-13-2023 Tobacco use and exposure Smokeless tobacco non-user [facility] Start: 03-09-2023 End: 04-25-2023 History of Social function [facility] National Score (1-100), lower number is lower risk [address] [facility] Medical Equipment Procedure Code Equipment Code Equipment Origin al Text Equipment Identifier Dates LAPAROSCOPIC SIMONA EN Y GASTRIC BYPASS STAPLE, IMPLANTABLE (GDW) LAPAROSCOPIC SIMONA EN Y GASTRIC BYPASS [id number] FDA Start: 09-20-2022 End: 09-20-2022 Clinical Notes 05-13-2015 to 05-30-2023 Sylvia Ayala DO - 05/30/2023 1:00 PM EDT Note Date & Type Note Facility 05-30-2023 Note HNO ID: [id number] Author: Sylvia Ayala DO Service: ? Author Type: Physician Type: Progress Notes Filed: 05/30/2023 1:22 PM Note Text: [facility] SECTION FOR MINIMALLY INVASIVE GYNECOLOGIC SURGERY OUTPATIENT [...] pt agrees with plan Sylvia Ayala DO [facility] 05-30-2023 History of Present illness Narrative Images from the original note were not included. [facility] SECTION FOR MINIMALLY INVASIVE GYNECOLOGIC SURGERY OUTPATIENT [...] Sylvia Ayala DO documented in this encounter [facility]. Other 08-03-2023 Miscellaneous Notes* Telephone Encounter [...] with Dr. Ayala on 05/06/2023. Routing to [facility] pool. Please advise if it is OK for patient to start estrogen patches. Gloria Alexander RN May 12, 2023 9:30 AM * Telephone Encounter - TonyJonyShin Meagan Roy - 05/11/2023 2:52 PM EDT Reason for call: other - Provider name: Dr. Ayala Additional comments: Patient was told she will not need estrogen pills and she was given a prescription for estrogen. Please call and advise the patient. Recommendation: routed to nurse triage pool [facility] NoteHNO ID: [id number] Author: Sylvia Ayala DO Service: ? Author Type: Physician Type: Progress Notes Filed: 05/10/2023 12:33 PM Note Text: [facility]08-01-2023 History of Present illness Narrative* Sylvia Ayala DO - 05/10/2023 12:32 PM EDT j documented [facility] Miscellaneous Notes* Telephone Encounter - Zuleyma Jewell [...] her follow up appointment Thank you Sanket Colon DO * Telephone Encounter - Yudith Mccauley [...] home with rx for Estrogen, none ordered. [facility] pharmacy preferred if appropriate. Advised will forward to [facility] Yudith Mccauley RN * Telephone Encounter [...] has questions regarding estrogen therapy. Please advise: [phone] Recommendation: routed to nurse triage pool Loan Bell documented [facility] Miscellaneous Notes* Telephone Encounter - Yudith Mccauley RN - 05/09/2023 1:43 PM EDT Duplicate encounter - see today's 05/09/23 TE Closing chart. Yudith Mccauley RN documented in this [facility]2023 NoteHNO ID: [id number] Author: Shannan Emerson, CYNDI Service: ? Author Type: Registered Nurse Type: Nursing Progress Note Filed: 05/06/2023 4:38 PM Note Text: 1630 Pt able to void. [id number] NoteHNO ID: [id number] Author: Rylan Valdez APRN.CRNA Service: Anesthesiology Author Type: Nurse Punch Finisher Type: Anesthesia Procedure Notes Filed: 05/06/2023 12:33 PM Note Text: ANESTHESIOLOGY PROCEDURE NOTE Airway General Information Procedure Start Time/Medication Administration: 05/06/2023 12:27 PM Patient location during procedure: OR Timeout Performed Pre-procedure: timeout performed Consent Obtained: Yes Patient identity confirmed: arm band, patient and family Staffing LINUX ADMIN ENGINEER: Rylan Valdez APRN.LINUX ADMIN ENGINEER Performed by: SRINIVAS Indications and Patient Condition [...] attempts at approach: 1 SIGNATURE: Rylan Valdez APRN.LINUX ADMIN ENGINEER PATIENT NAME: Romain Mendoza DATE: May 06, 2023 TIME: 12:30 PM CSN: [id number] NoteHNO ID: [id number] Author: Liset Lamb RN Service: ? Author [...] patient have an advanced directive: No Does [facility] have a copy of the patient's advanced [...] prescribed by anesthesia, internal medicine, surgeon, or INTERNSHIP COORDINATOR Stop NSAIDs, Aspirin (ASA), vitamins, herbal supplements, [...] jewelry, body piercing, makeup, contacts, lotions, nail hungarian on fingers, or anything in hair on arrival to surgery Wear low healed shoes and loose fitting clothing Leave all valuables at home or with a family member Directions to [facility] Parking/parking validation on the day prior to [...] - IV pain medication after surgery, IV SKIN THERAPIST if ordered by MD, discharged home with [...] if after hours patient instructed to call knotting machine operator and ask for vegetable scullion geophysics professor resident. NANDINI program offered to patient: No Additional teaching as indicated by patient/family learning needs. PATIENT LEARNING EVALUATION AND FOLLOW UP PLAN: Patient and/or family express understanding of upcoming surgery, pre-operative preparation, the operative process, and post-operative instructions. Follow up plan: Complete - No n (more content not included)...[facility]07-17-2023 NoteHNO ID: [id number] Author: Sylvia Ayala, DO Service: ? Author Type: Physician Type: Progress Notes Filed: 04/25/2023 12:31 PM Note Text: [facility] [place] SECTION FOR MINIMALLY INVASIVE GYNECOLOGIC SURGERY OUTPATIENT VISIT DATE 04/25/2023 OUTPATIENT VISIT TYPE NEW PRIMARY CARE PHYSICIAN: Carlos Chris MD [address] [address] REFERRING PHYSICIAN: Gudelia Mi Consultation requested by [...] Cyst with septations and an internal hyperechoic [id number] area 03/17/23: diagnostic laparoscopy Patient underwent diagnostic laparoscopy at [facility] on 03/17/2023 for left ovarian cyst and [...] laparoscopy, right toe surgery 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 Depressive disorder, not elsewhere classified Encounter for [...] BYPASS HX 09/20/2022 Reun Y IUD INSERTION (NURSERY HAND DEPT)_*FL 07/17/2007 Mirena IUD REMOVAL (NURSERY HAND DEPT)_*FL 10/23/2007 Mirena L'SCOPE DX W/WO BRUSHINGS/WASHINGS [...] taking: Reported on 04/25/2023) cyanocobalamin/folic acid (VITAMIN A45-DBLFE ACID) 1,000-400 mcg lozg Dissolve under the tongue. citalopram (CELEXA) 20 mg tablet 20 mg. (Patient not taking: No sig reported) ibupr (more content not included)...[facility]07-17-2023 Instructions* Patient Instructions* Sylvia Ayala, - 04/25/2023 12:30 PM EDT Images from the original note were not included. Please visit the following website for the [facility] surgery guide. [email or web address] MINIMALLY INVASIVE GYNECOLOGIC SURGERY (MIGS)/BENIGN GYNECOLOGY CONTACTS: Surgeons: Dr. Sylvia Ayala Dr. Lor Rodrigez Dr. Shellie Ventura Dr. Juliana Mendieta Dr. Barry Dhaliwal Dr. Meghan Gale Stephenson: Dr. Mya Garzon [phone] Dr. Denzel Colon [phone] Dr. Samantha Mclaughlin [phone] Nurse Practitioners: Kaur Corley APRN.BIOCHEMICAL ENGINEER Arianne Blanco MISSILE FACILITIES REPAIRER.BIOCHEMICAL ENGINEER Amanda Marquez, MISSILE FACILITIES REPAIRER.BIOCHEMICAL ENGINEER Jessie Carballo APRN.BIOCHEMICAL ENGINEER Janeth Lugo APRN, BIOCHEMICAL ENGINEER Surgery Scheduling Office: Call the day before surgery after 2pm for your surgery arrival time After hours phone number: or toll free Ask the knotting machine operator to page the geophysics professor vegetable scullion.' Business hours are Tuesday - Tuesday from 8:00am - 4:30pm. We are closed on weekends and major holidays. Surgery Locations: [facility] [address] 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 locations: [facility] pharmacy, [facility] pharmacy, and the [facility] [place] for [facility] (inside the parking garage on the first [...] DEPARTMENT POST OPERATIVELY, WE RECOMMEND THE MAIN CAMPUS EMERGENCY DEPARTMENT FOR CONTINUITY OF CARE AND THE BEST ACCESS TO ONE OF THE SURGEONS ON OUR TEAM. Address: [address] [place] [id number] documented in this encounterMercy Health St. [facility]2023 History of Present illness Narrative* Sylvia Ayala DO - 04/25/2023 10:30 AM EDT Images from the original note were not included. [facility] [place] SECTION FOR MINIMALLY INVASIVE GYNECOLOGIC SURGERY OUTPATIENT VISIT DATE 04/25/2023 OUTPATIENT VISIT TYPE NEW PRIMARY CARE PHYSICIAN: Carlos Chris MD [address] [address] REFERRING PHYSICIAN: Gudelia Mi Consultation requested by Dr. Mi for an opinion regarding Romain Mendoza, and my final recommendations will be communicated back to the requesting physician by way of shared medical record or letter via US mail. CHIEF COMPLAINT: Pelvic pain, ovarian cyst HISTORY OF PRESENT ILLNESS: Romain Mednoza is a pleasant 47 year old x [...] Cyst with septations and an internal hyperechoic [id number] area 03/17/23: diagnostic laparoscopy Patient underwent diagnostic laparoscopy at [facility] on 03/17/2023 for left ovarian cyst and pelvic pain. The left ovary and tube were adhered at the pelvic brim densely. There are extensive omental adhesions. I was unable to visualize the cuff or the right ovary/tube. I was unable to complete the surgery laparoscopically and ended the surgery. Recommend consult w/ MIGS to consider surgical removal. 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 at [facility]. Depressive disorder, not elsewhere classified Encounter for [...] BYPASS HX 09/20/2022 Reun Y IUD INSERTION (NURSERY HAND DEPT)_*FL 07/17/2007 Mirena IUD REMOVAL (NURSERY HAND DEPT)_*FL 10/23/2007 Mirena L'SCOPE DX W/WO BRUSHINGS/WASHINGS 03/17/2023 LIG/TRNSXJ FLP TUBE ABDL/VAG APPR UNI/BI 2008 Tubal ligation PAST SURGICAL HISTORY OF 1986 Eye surgery TOTAL ABDOMINAL HYSTERECT W/WO RMVL TUBE OVARY 04/22/2011 [facility] Family History: FAMILY HISTORY Problem Relation Age [...] taking: Reported on 04/25/2023) cyanocobalamin/folic acid (VITAMIN J18-MRYIY ACID) 1,000-400 mcg lozg Dissolve under the [...] plan. Sylvia Ayala DO documented in this encounterMercy Health St. 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 She was referred to Dr. Ayala for MIGS, by Dr. Gudelia Mi at [facility]. There is a consult order in her chart. [facility] nurses are both out this week. Thanks! Tami Melissa RN documented in this encounterMercy Health St. [facility]06-14-2023 NoteHNO ID: [id number] Author: Gudelia Mi MD Service: ? Author [...] Gudelia Mi [facility]06-14-2023 History of Present illness Narrative* Gudelia Mi [...] findings Gudelia Mi MD documented in this encounterMercy Health St. [facility]06-12-2023 NoteHNO ID: [id number] Author: Gudelia Mi MD Service: ? Author Type: Physician Type: Progress Notes Filed: 03/21/2023 11:45 AM Note Text: Patient underwent diagnostic laparoscopy at [facility] on 03/17/2023 for left ovarian cyst and pelvic pain. The left ovary and tube were adhered at the pelvic brim densely. There are extensive omental adhesions. I was unable to visual ize the cuff or the right ovary/tube. I was unable to complete the surgery laparoscopically and ended the surgery. Recommend consult w/ MIGS to consider surgical removal. Gudelia Mi [facility]05-31-2023 NoteHNO ID: [id number] Author: Gudelia Mi MD Service: ? 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 Depressive disorder, not elsewhere classified Encounter for [...] BYPASS HX 09/20/2022 Reun Y IUD INSERTION (NURSERY HAND DEPT)_*FL 07/17/2007 Mirena IUD REMOVAL (NURSERY HAND DEPT)_*FL 10/23/2007 Mirena LIG/TRNSXJ FLP TUBE ABDL/VAG [...] ORAL Take by mouth. 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 Depressive disorder, not elsewhere classified Encounter for [...] BYPASS HX 09/20/2022 Reun Y IUD INSERTION (NURSERY HAND DEPT)_*FL 07/17/2007 Mirena IUD REMOVAL (NURSERY HAND DEPT)_*FL 10/23/2007 Mirena LIG/TRNSXJ FLP TUBE ABDL/VAG APPR UNI/BI 2008 Tubal ligation PAST SURGICAL HISTORY OF 1986 [...] ORAL Take by mouth. cyanocobalamin/folic acid (VITAMIN F70-EXFUJ ACID) 1,000-400 mcg lozg Dissolve under the [...] N/A Gudelia Mi MD documented in this encounterMercy Health St. [facility]05-31-2023 History and physical note * Gudelia Mi [...] Diagnosis Date Asthma 03/2016 + [facility] at [facility]. Depressive disorder, not elsewhere classified Encounter for [...] Date APPENDECTOMY 01/2019 DELIVERY ONLY 2005, 2006, 2009 , low cervical X3 GASTRIC BYPASS HX 09/20/2022 Reun Y IUD INSERTION (NURSERY HAND DEPT)_*FL 07/17/2007 Mirena IUD REMOVAL (NURSERY HAND DEPT)_*FL 10/23/2007 Mirena LIG/TRNSXJ FLP TUBE ABDL/VAG APPR UNI/BI 2008 Tubal ligation PAST SURGICAL HISTORY OF 1986 Eye surgery TOTAL ABDOMINAL HYSTERECT W/WO RMVL TUBE OVARY 04/22/2011 [facility] Current Outpatient Medications Medication Sig Dispense Refill POTASSIUM ORAL Take by mouth. MULTIVITAMIN ORAL Take by mouth. CALCIUM ORAL Take by mouth. cyanocobalamin/folic acid (VITAMIN Y88-ZZBFQ ACID) 1,000-400 mcg lozg Dissolve under the [...] medications for this visit. ALLERGIES: Citalopram, Codeine, [place], and Nsaids (Non-Steroidal Anti- Inflammatory Drug) PERSONAL [...] allergies Gudelia Mi M.D. documented in this encounterMercy Health St. [facility]05-16-2023 Miscellaneous Notes* Telephone Encounter - Crystal Plummer RN - 02/22/2023 3:46 PM EDT Form signed by PRINCESS and faxed to [facility] * Telephone Encounter - Crystal Plummer RN - 02/22/2023 10:22 AM EDT Patient would like to be scheduled at [facility] for MRI, they can get her in sooner on the and we have checked and they are unable to get her in here at [facility] until March 15. Please send order to [facility]. Sheis asking for new order to be sent on [facility] form- hospital told her to not send a copy of our order. [facility] order form on RR desk for signature documented in this encounterMercy Health St. [facility]05-02-2023 Miscellaneous Notes* Telephone Encounter - Crystal Plummer RN - 02/08/2023 10:04 AM EDT Images from the original note were not included. I called patient and informed her of Lab and MRI ordered. she is scheduled for bloodwork today. Transferred her to schedule MRI. Gudelia Mi MD [facility] Ob-Retail Cashier Pool Please call and schedule MRI for patient. ordered CEA and ca 19-9. Need this done before her surgery. Thanks. See phone note. Gudelia Mi MD documented in this encounterMercy Health St. [facility]04-27-2023 NoteHNO ID: [id number] Author: Gudelia Mi MD Service: ? Author Type: Physician Type: Progress Notes Filed: 02/08/2023 3:10 PM Note Text: Romain Mendoza is a 47 year old female who presents for problem visit for f/u pelvic pain and adenexal masses . HPI: US done. Ca 125 normal. No new c/o today. Still has pain. 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 Depressive disorder, not elsewhere classified Encounter for [...] BYPASS HX 09/20/2022 Reun Y IUD INSERTION (NURSERY HAND DEPT)_*FL 07/17/2007 Mirena IUD REMOVAL (NURSERY HAND DEPT)_*FL 10/23/2007 Mirena LIG/TRNSXJ FLP TUBE ABDL/VAG [...] ORAL Take by mouth. cyanocobalamin/folic acid (VITAMIN N45-COTRT ACID) 1,000-400 mcg lozg Dissolve under the [...] Gudelia Mi, [facility]04-06-2023 NoteHNO ID: [id number] Author: Gudelia Mi MD Service: ? Author Type: Physician Type: Progress Notes Filed: 01/13/2023 12:10 PM Note Text: Brim Blocker offered: Patient declines. 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 Depressive disorder, not elsewhere classified Encounter for [...] X3 GASTRIC BYPASS HX 09/20/2022 IUD INSERTION (NURSERY HAND DEPT)_*FL 07/17/2007 Mirena IUD REMOVAL (NURSERY HAND DEPT)_*FL 10/23/2007 Mirena LIG/TRNSXJ FLP TUBE ABDL/VAG [...] ORAL Take by mouth. cyanocobalamin/folic acid (VITAMIN B10-CKWRS ACID) 1,000-400 mcg lozg Dissolve under the [...] external genitalia normal, normal Bartholin's glands, urethra, [place]'s glands, no vulvar lesions, good vaginal support, [...] Moderate: 1+ chronic illnesse (more content not included)...[facility]03-30-2023 Evaluation note* Encounter Date Diagnosis Assessment Notes Treatment Notes Treatment Clinical Notes Dec, Vitamin D deficiency , unspecified (ICD-10 - E55.9) Dec, Anemia, unspecified (ICD-10 - D64.9) Dec, Vitamin B12 deficiency (ICD-10 - E53.8) Dec, Malabsorption (ICD-1 0 - K90.9) Dec, History of bariatric surgery (ICD-10 - Z98.84) [facility]. Other 01-23-2023 Evaluation note* Encounter Date Diagnosis Assessment Notes Treatment Notes Treatment Clinical Notes Oct, Other Reviewed 6 w [place] diet progression. I reviewed which foods patient [...] to daily MVI. Patient shows good understanding. [facility]. Other 01-23-2023 Evaluation note* Encounter Date Diagnosis [...] exercise for continued long-term weight loss success [facility]. Other 01-23-2023 Evaluation note* Encounter Date Diagnosis Assessment Notes Treatment Notes Treatment Clinical Notes Oct, Vitamin D deficiency , unspecified (ICD-10 - E55.9) Oct, Anemia, unspecified (ICD-10 - D64.9) Oct, Vitamin B12 deficiency (ICD-10 - E53.8) Oct, Malabsorption (ICD-1 0 - K90.9) Oct, History of bariatric surgery (ICD-10 - Z98.84) [facility]. Other 01-09-2023 Evaluation note* Encounter Date Diagnosis Assessment Notes Treatment Notes Treatment Clinical Notes Oct, Surgery follow-up examination (ICD-10 - Z09) Continue activity restrictions. Oct, Other Advance diet pe r protocol Continue MVI with Fe, PPI Reviewed the rules for retirement weight loss success. Continue to increase walking for exercise. [facility]. Other 01-09-2023 Evaluation note* Encounter Date Diagnosis [...] packet was given, patient shows good understanding. [facility]. Other 12-27-2022 Evaluation note* Encounter Date Diagnosis Assessment Notes Treatment Notes Treatment Clinical Notes Sep, Other Reviewed pur eed diet progression. Patient was instructed to start purees today 10/05. I reviewed how to blend foods appropriately to one consistency using a tea blender. Pureed food examples and recipes were provided [...] packet was given, patient shows good understanding. [facility] [employer] [facility]. Other 12-27-2022 Evaluation note* Encounter Date [...] if able to compensate increased fluid loss [facility] [employer] [facility]. Other 12-14-2022 Hospital Discharge instructions Activity [...] Has Patient had Chest Pain or an PR during this Visit? : No * It is important to understand risk factors for heart disease : It is important to understand risk factors for heart disease * so you can work with your doctor to help prevent further cardiac : so you can work with your doctorto help prevent further cardiac injury. [employer] Operator Discharge Instructions from 09/22/2022 4:19 PM: * Scanning Clerk Followup : Alphonse Galvan MD ([id number]) - Pulmonology * Scanning Clerk Address and Phone : [address] [address] [phone] * Scanning Clerk Instructions : Please call to schedule an [...] 30 : Additionally, a study by the [facility] shows that sleep apnea may be tied [...] * Discharge Physician: : Anaid Garsia MD ([id number]) - Surgery * Follow up with Ordering Physician : 2 * Discharge Physician Specialty : Week(s) * Discharge Physician Phone: : [address] [address] [phone] * Patient stated Primary Care Provider : [...] not submerge incision until okayed by office. [facility] 12-14-2022 Evaluation + Plan note Assessment and [...] shakes per day starting the second week. [facility] 12-14-2022 Discharge summary* Discharge Summary Note : [...] any lotio ns or moisturizers on incisions. [facility] [id number] Hospital Discharge instructions Orange Peel Operator Discharge Instructions from 09/20/2022 4:46 PM: * Scanning Clerk Followup : Alphonse Galvan MD ([id number]) - Pulmonology * Scanning Clerk Address and Phone : [address] [address] [phone] * Scanning Clerk Instructions : Please call to schedule an appointment upon discharge. ED Discharge Education Evaluation from 09/20/2022 6:38 PM: * Educ Topic #1 : Yes Patient Transfer Information from 09/20/2022 6:38 PM: * Sensory Screening : Denies problems or history * Does Patient have hearing aids? : No Physician Follow-up Plan/Appointments from 09/20/2022 6:38 PM: * Patient stated Primary Care Provider : OTHER [facility] 12-12-2022 Evaluation note* Encounter Date Diagnosis Assessment [...] x 38.0-38.9 (ICD-10 - Z68.38) [facility] Other 11-17-2022 Evaluation note* Encounter Date Diagnosis [...] introduced at 6 week follow up appointment. [facility]. Other 11-17-2022 Evaluation note* Encounter Date Diagnosis [...] D deficiency (ICD-10 - E55.9) Aug, Other ILizzie, attest that this documentation has been prepared [...] personal performance and is accurate and complete [facility]. Other 09-14-2022 Evaluation note* Encounter Date Diagnosis [...] D deficiency (ICD-10 - E55.9) Jun, Other I, Lizzie edmonds, attest that this documentation has been prepared under the direction and presence of Znadra Rubin MD. By signing below, I, Zandra Rubin MD, personally performed the services described in this documentation. All medical record entries made by the scribe were at my direction and in my presence. I have received the chart and agree that the record reflects my personal performance and is accurate and complete [facility]. Other 09-14-2022 Evaluation note* Encounter Date Diagnosis Assessment Notes Treatment Notes Treatment Clinical Notes Jun, Other Today's Lesson: - Review of food recall - Briefly reviewed expectations after surgery Diet Goal: practice the lifelong rules Exercise Recommendations: 150 minutes moderate intensity exercise per week Behavior Goal: - continue to implement the lifelong rules Plan: dietary clearance provided today [facility]. Other 09-11-2022 History general Narrative - Reported* Type Description Date Medical History sleep apnea, CPAP is 2 yrs old, uses it every night but device is recalled, PCP will order a new one Medical History asthma Medical History hypertension Medical History depression Medical History acid reflux Medical History hypothyroidism Medical History sees concrete layer fo r chest pain, irregular heart beat, fam Hx, exercise stress test 2021 WNL Surgical History appendectomy 2019 Surgical History right knee meniscus Surgical History x 3 Surgical History growth removed above right eye as a child Surgical History hysterectomy 2009 Hospitalization History [facility] chest pain [facility]. Other 08-18-2022 Evaluation note* Encounter Date Diagnosis [...] D deficiency (ICD-10 - E55.9) May, Other Hayley, Lizzie edmonds, attest that this documentation has been prepared under the direction and presence of Zandra Rbuin MD. By signing below, I, Zandra Rubin MD, personally performed the services described in this documentation. All medical record entries made by the scribe were at my direction and in my presence. I have received the chart and agree that the record reflects my personal performance and is accurate and complete [facility]. Other 08-18-2022 Evaluation note* Encounter Date Diagnosis Assessment Notes Treatment Notes Treatment Clinical Notes May, Other Today's Lesson: - Review of food recall Diet Goal: practice the lifelong rules Exercise Recommendations: 150 minutes moderate intensity exercise per week Behavior Goal: - continue to implement the lifelong rules [facility]. Other 08-18-2022 Evaluation note* Encounter Date Diagnosis [...] N18.30) Defer management to Dr. Chris. May, Eladio Vergara is s/p hysterectomy and is not at risk for . [facility]. Other 07-27-2022 Evaluation note* Encounter Date Diagnosis [...] personal performance and is accurate and complete. [facility]. Other 06-27-2022 Evaluation note* Encounter Date Diagnosis Assessment Notes Treatment Notes Treatment Clinical Notes Mar, Other Today's Lesson: - Review of dietary recall - Suggestions provided Diet Goal: practice the lifelong rules Exercise Recommendations: 150 minutes moderate intensity exercise per week Behavior Goal: - Continue to follow the lifelong rules - 1-2# wt loss per week [facility]. Other 06-11-2022 History general Narrative - Reported* Type Description Date Medical History sleep apnea, CPAP is 2 yrs old, uses it every night Medical History asthma Medical History hypertension Medical History depression Medical History acid reflux Medical History hypothyroidism Medical History sees concrete layer fo r chest pain, irregular heart beat, fam Hx, exercise stress test 2021 WNL Surgical History appendectomy 2019 Surgical History right knee meniscus Surgical History x 3 Surgical History growth removed above right eye as a child Surgical History hysterectomy 2009 Hospitalization History [facility] chest [facility]. Other 06-08-2022 Evaluation note* Encounter Date Diagnosis [...] Mar, Vitamin D deficiency (ICD-10 - E55.9) [facility]. Other 05-24-2022 Evaluation note* Encounter Date Diagnosis Assessment Notes Treatment Notes Treatment Clinical Notes February, Other Today's Lesson: - Had Romain download and set up 24tid[employer] pal profile, set calories to 1500 per day - Reviewed how to scan bar codes and how to manually enter food items - Reviewed the importance of measuring out portions - Recommended keeping meals simple Diet Goal: practice the lifelong rules Exercise Recommendations: 150 minutes moderate intensity exercise per week Behavior Goal: 1. Use Guidesly and track food intake 2. 1-2# wt loss/week [facility] Other 05-24-2022 Evaluation note* Encounter Date Diagnosis Assessment Notes Treatment Notes Treatment Clinical Notes February, Sleep apnea (ICD-10 - G47.30) Counseled on consistent CPAP use February, Primary hypertension (ICD-10 - I10) February, Gastroesophageal ref lux (ICD-10 - K21.9) February, Non morbid obesity d ue to excess calories (ICD-10 - E66.09) Counseled on low calorie diet and increase exercise [facility] Other 04-26-2022 Evaluation note* Encounter Date Diagnosis [...] meals a day 2. track food intake [facility] Other 04-26-2022 Evaluation note* Encounter Date Diagnosis [...] Jan, Nutritional deficien cy (ICD-10 - E63.9) [facility]. Other 04-12-2022 History of Present illness Narrative* [...] 19, 2022 1:25 PM [facility] of Past illness Narrative* Problem Noted [...] the puerperium, unspecified as to episode of care(767.10) 02/06/2007 12/16/2010 Supervision of other normal 09/27/2006 08/26/2008 Obesity (BMI 30-39.9) 2022 documented as of this encounter (statuses as of 05/06/2023) [facility] History of Past illness Narrative* Problem Noted [...] of this encounter (statuses as of 05/09/2023) [facility] of Past illness Narrative* Problem Noted [...] of this encounter (statuses as of 05/10/2023) [facility] of Past illness Narrative* Problem Noted [...] of this encounter (statuses as of 05/10/2023) [facility] of Past illness Narrative* Problem Noted [...] of this encounter (statuses as of 05/12/2023) [facility] of Past illness Narrative* Problem Noted [...] of this encounter (statuses as of 05/30/2023) [facility] of Past illness Narrative* Problem Noted [...] of this encounter (statuses as of 01/20/2022) [facility] of Past illness Narrative* Problem Noted [...] of this encounter (statuses as of 01/20/2022) [facility] of Past illness Narrative* Problem Noted [...] of this encounter (statuses as of 02/08/2023) [facility] of Past illness Narrative* Problem Noted [...] of this encounter (statuses as of 02/23/2023) [facility] of Past illness Narrative* Problem Noted [...] of this encounter (statuses as of 03/09/2023) [facility] of Past illness Narrative* Problem Noted [...] of this encounter (statuses as of 03/21/2023) [facility] of Past illness Narrative* Problem Noted [...] of this encounter (statuses as of 03/23/2023) [facility] of Past illness Narrative* Problem Noted [...] of this encounter (statuses as of 03/24/2023) [facility] of Past illness Narrative* Problem Noted [...] of this encounter (statuses as of 04/25/2023) [facility] Plan [facility] evaluation note* Diagnosis Abnormal screening mammogram Abnormal mammogram, unspecified documented in this encounter [facility] note* Diagnosis Abnormal screening mammogram Abnormal mammogram, unspecified documented in this encounter [facility] noteNo [facility] Other Evaluation note* Diagnosis Pelvic and perineal pain- Primary Unspecified symptom associated with female genital organs Ovarian cyst, left Other and unspecified ovarian cyst documented in this encounter [facility] note* Diagnosis Pelvic and perineal pain- Primary Unspecified symptom associated with female genital organs Ovarian cyst, left Other and unspecified ovarian cyst documented in this encounter [facility] note* Diagnosis Peritoneal adhesions- Primary Peritoneal adhesions (postoperative) (postinfection) Adhesion of omentum Peritoneal adhesions (postoperative) (postinfection) Ovarian cyst, left Other and unspecified ovarian cyst documented in this encounter [facility] note* Diagnosis Ovarian cyst, left- Primary Other and unspecified ovarian cyst Peritoneal adhesions Peritoneal adhesions (postoperative) (postinfection) Pelvic pain in female Unspecified symptom associated with female genital organs Preop examination Preoperative examination, unspecified documented in this encounter [facility] note* Diagnosis Post-op pain- Primary Other acute postoperative pain documented in this encounter [facility] note* Diagnosis Pelvic pain in female- Primary Unspecified symptom associated with female genital organs [facility] - Reported* Type Description Date Medical History sleep apnea, CPAP is 2 yrs old, uses it every night Medical History asthma Medical History hypertension Medical History depression Medical History acid reflux Medical History hypothyroidism Medical History sees concrete layer fo r chest pain, irregular heart beat, fam Hx, has exercise stress test 2020 Surgical History appendectomy 2020 Surgical History right knee meniscus Surgical History x 3 Surgical History growth removed above right eye as a child Surgical History hysterectomy 2009 Hospitalization History [facility] chest pain [facility] [employer]. Other History general Narrative - Reported* Type Description Date Medical History sleep apnea, CPAP is 2 yrs old, uses it every night Medical History asthma Medical History hypertension Medical History depression Medical History acid reflux Medical History hypothyroidism Medical History sees concrete layer fo r chest pain, irregular heart beat, fam Hx, exercise stress test 2021 WNL Surgical History appendectomy 2020 Surgical History right knee meniscus Surgical History x 3 Surgical History growth removed above right eye as a child Surgical History hysterectomy 2009 Hospitalization History [facility] [employer]. Other [employer] general Narrative - Reported* Type Description Date Medical History sleep apnea, CPAP is 2 yrs old, uses it every night but device is recalled, PCP will order a new one Medical History asthma Medical History hypertension Medical History depression Medical History acid reflux Medical History hypothyroidism Medical History sees concrete layer fo r chest pain, irregular heart beat, fam Hx, exercise stress test 2021 WNL Surgical History appendectomy 2020 Surgical History right knee meniscus Surgical History x 3 Surgical History growth removed above right eye as a child Surgical History hysterectomy 2009 Hospitalization History [facility] chest pain [facility] [employer]. Other history general Narrative - Reported* Type Description Date Medical History sleep apnea, got new CPAP Medical History asthma Medical History hypertension Medical History depression Medical History acid reflux Medical History hypothyroidism Medical History sees concrete layer fo r chest pain, irregular heart beat, fam Hx, exercise stress test 2021 WNL Surgical History appendectomy 2020 Surgical History right knee meniscus Surgical History x 3 Surgical History growth removed above right eye as a child Surgical History hysterectomy 2010 Surgical History infusion right great toe 022 Hospitalization History [facility] chest [facility]. Other history general Narrative - Reported* Type Description Date Medical History sleep apnea, got new CPAP Medical History asthma Medical History hypertension Medical History depression Medical History acid reflux Medical History hypothyroidism Medical History sees concrete layer fo r chest pain, irregular heart beat, fam Hx, exercise stress test 2021 WNL Surgical History appendectomy 2020 Surgical History right knee meniscus Surgical History x 3 Surgical History growth removed above right eye as a child Surgical History hysterectomy 2009 Surgical History infusion right great toe 022 Surgical History LAPAROSCOPIC SIMONA-EN -Y GASTRIC BYPASS (RUY-ALISTAIR) [place] Hospitalization History [facility] chest [facility] Other [employer] general Narrative - Reported* Type Description Date Medical History sleep apnea, got new CPAP Medical History asthma Medical History hypertension Medical History depression Medical History acid reflux Medical History hypothyroidism Medical History sees concrete layer fo r chest pain, irregular heart beat, [...] bdominal pain/ had bladder infection no admission [facility]. Other [facility] general Narrative - Reported* Type Description Date Medical History sleep apnea, got new CPAP Medical History asthma Medical History hypertension Medical History depression Medical History acid reflux Medical History hypothyroidism Medical History sees concrete layer fo r chest pain, irregular heart beat, [...] History tubes and ovaries removed Hospitalization History [facility] bdominal pain/ had bladder infection no admission [facility] [employer] [facility]. Other Hospital Discharge instructions Activity on [...] Has Patient had Chest Pain or an PR during this Visit? : No * It is important to understand risk factors for heart disease : It is important to understand risk factors for heart disease * so you can work with your doctor to help prevent further cardiac : so you can work with your doctorto help prevent further cardiac injury. [employer] Operator Discharge Instructions from 09/22/2022 4:19 PM: * Scanning Clerk Followup : Alphonse Galvan MD ([id number]) - Pulmonology * Scanning Clerk Address and Phone : [phone] [address] [phone] * Scanning Clerk Instructions : Please call to schedule an [...] 30 : Additionally, a study by the [facility] shows that sleep apnea may be tied [...] * Discharge Physician: : Anaid Garsia MD ([id number]) - Surgery * Follow up with Ordering Physician : 2 * Discharge Physician Specialty : Week(s) * Discharge Physician Phone: : [phone] [address] [phone] * Patient stated Primary Care Provider : [...] not submerge incision until okayed by office. S Reason for referral (narrative)* Diagnostic Procedure Only (Routine) - Closed Specialty Diagnoses / Procedures Referred By Alesia lemons Referred To Contact [facility] Diagnoses Abnormal screening mammogram Procedures US BREAST LTD LT US BREAST UNI REAL TIME WITH IMAGE LIMITED Angle Fagan APRN.CNM [address] [place] [address] [facility] [address] [place] [id number] Referral ID Status Reason Start Date Expiration Date V isits Requested Visits Authorized [id number] Closed Auto-Generate d Referral 12/16/2021 01/15/2023 1 1 [facility] for visit Narrative* Diagnostic Procedure Only (Routine) - Closed Specialty Diagnoses / Procedures Referred By Alesia lemons Referred To Contact [facility] Diagnoses Abnormal screening mammogram Procedures VIVIANE DIAGNOSTIC LT DIAGNOSTIC MAMMOGRAPHY COMPUTER-AIDED DETCJ UNI Angle Fagan APRN.CNM [address] [place] [address] [facility] [address] [place] [address] Referral ID Status Reason Start Date Expiration Date V isits Requested Visits Authorized [id number] Closed Auto-Generate d Referral 12/16/2021 01/15/2023 1 1 [facility] for visit Narrative* Diagnostic Procedure Only (Routine) - Closed Specialty Diagnoses / Procedures Referred By Contac t Referred To Contact [facility] Diagnoses Abnormal screening mammogram Procedures US BREAST LTD LT US BREAST UNI REAL TIME WITH IMAGE LIMITED Angle Fagan APRN.CN [address] [place] [address] [facility] [address] [place] [address] Referral ID Status Reason Start Date Expiration Date V isits Requested Visits Authorized [id number] Closed Auto-Generate d Referral 12/16/2021 01/15/2023 1 1 [facility] for visit Narrativesurgery education, review [facility] requirements [facility] [employer] [facility]. Other Summary Purpose Family History No Family History Records FoundNo Family History Records FoundNo Family History Records FoundNo Family History Records FoundNo Family History Records Found Advance Directives No Advanced Directives Records FoundNo Advanced Directives Records FoundNo Advanced Directives Records FoundNo Advanced Directives Records FoundNo Advanced Directives Records Found Reason for Referral Specialty Diagnoses / Procedures Referred By Contac t Referred To Contact Diagnoses Peritoneal adhesions Adhesion of omentum Ovarian cyst, left Procedures CONSULT TO MINIMALLY INVASIVE GYNECOLOGIC SURGERY OFFICE/OUTPATIENT [facility] 60-74 MINUTES Gudelia Mi MD [address] [place] [address] Referral ID Status Reason Start Date Expiration Date Visits Requested Visits Authorized [id number] Authorized PCP Requested Referral Auto-Generate d Referral 03/23/2023 03/22/2024 1 1 Specialty Diagnoses / Procedures Referred By Contac t Referred To Contact [facility] Diagnoses Pelvic and perineal pain Procedures MRI PELVIS WO/W IVCON MRI PELVIS W/O & W/CONTRAST MATERIAL Gudelia Mi MD [address] [place] [address] [facility] Referral ID Status Reason Start Date Expiration Date Visits Requested Visits Authorized [id number] Pending Review Auto-Generat ed Referral 02/08/2023 03/09/2024 1 1 Additional Source Comments Source Comments (unrecognize d section and content) In the event this informatio n is protected by the Federal Confidentiality of Alcohol and Drug Abuse Patient Records regulations: The Federal rules restrict any use of the information to criminally investigate or prosecute any alcohol or drug abuse patient.[facility] Center[facility] the event this information is protected by the Federal Confidentiality of Alcohol and Drug Abuse Patient Records regulations: The Federal rules restrict any use of the information to criminally investigate or prosecute any alcohol or drug abuse patient.[facility] Center[facility] the event this information is protected by the Federal Confidentiality of Alcohol and Drug Abuse Patient Records regulations: The Federal rules restrict any use of the information to criminally investigate or prosecute any alcohol or drug abuse patient.[facility] CenterIn the event this information is protected by the Federal Confidentiality of Alcohol and Drug Abuse Patient Records regulations: The Federal rules restrict any use of the information to criminally investigate or prosecute any alcohol or drug abuse patient.[facility] CenterIn the event this information is protected by the Federal Confidentiality of Alcohol and Drug Abuse Patient Records regulations: The Federal rules restrict any use of the information to criminally investigate or prosecute any alcohol or drug abuse patient.[facility] CenterIn the event this information is protected by the Federal Confidentiality of Alcohol and Drug Abuse Patient Records regulations: The Federal rules restrict any use of the information to criminally investigate or prosecute any alcohol or drug abuse patient.[facility] CenterIn the event this information is protected by the Federal Confidentiality of Alcohol and Drug Abuse Patient Records regulations: The Federal rules restrict any use of the information to criminally investigate or prosecute any alcohol or drug abuse patient.[facility] CenterIn the event this information is protected by the Federal Confidentiality of Alcohol and Drug Abuse Patient Records regulations: The Federal rules restrict any use of the information to criminally investigate or prosecute any alcohol or drug abuse patient.[facility] CenterIn the event this information is protected by the Federal Confidentiality of Alcohol and Drug Abuse Patient Records regulations: The Federal rules restrict any use of the information to criminally investigate or prosecute any alcohol or drug abuse patient.[facility] CenterIn the event this information is protected by the Federal Confidentiality of Alcohol and Drug Abuse Patient Records regulations: The Federal rules restrict any use of the information to criminally investigate or prosecute any alcohol or drug abuse patient.[facility] CenterIn the event this information is protected by the Federal Confidentiality of Alcohol and Drug Abuse Patient Records regulations: The Federal rules restrict any use of the information to criminally investigate or prosecute any alcohol or drug abuse patient.[facility] CenterIn the event this information is protected by the Federal Confidentiality of Alcohol and Drug Abuse Patient Records regulations: The Federal rules restrict any use of the information to criminally investigate or prosecute any alcohol or drug abuse patient.[facility] CenterIn the event this information is protected by the Federal Confidentiality of Alcohol and Drug Abuse Patient Records regulations: The Federal rules restrict any use of the information to criminally investigate or prosecute any alcohol or drug abuse patient.[facility] CenterIn the event this information is protected by the Federal Confidentiality of Alcohol and Drug Abuse Patient Records regulations: The Federal rules restrict any use of the information to criminally investigate or prosecute any alcohol or drug abuse patient.[facility] CenterIn the event this information is protected by the Federal Confidentiality of Alcohol and Drug Abuse Patient Records regulations: The Federal rules restrict any use of the information to criminally investigate or prosecute any alcohol or drug abuse patient.[facility] Care Teams (unrecognized sec tion and content) Boner Meat Relationship Specialty Start Date End Date Carlos Chris Chi PCP - General Gerontology 12/28/16 [employer] Relationship Specialty Start Date End Date Aries, Cralos Chi PCP - General Gerontology 12/28/16 [employer] Relationship Specialty Start Date End Date Aries, Carlos Chi PCP - General Gerontology 12/28/16 [employer] Relationship Specialty Start Date End Date Ivelisse Phillip MD [address] [place], [place] [id number] PCP - General Internal Medicine 11/17/10 12/27/16 Aries Carlos Chi [address] [place] [address] PCP - General Gerontology 12/28/16 [employer]er [employer] Relationship Specialty Start Date End Date Aries Carlos Chi PCP - General Gerontology 12/28/16 [employer] Relationship Specialty Start Date End Date Aries, Carlos Chi PCP - General Gerontology 12/28/16 [employer] Relationship Specialty Start Date End Date Aries Carlos Chi PCP - General Gerontology 12/28/16 [employer] Relationship Specialty Start Date End Date Aries, Carlos Chi PCP - General Gerontology 12/28/16 [employer] Relationship Specialty Start Date End Date AriesCarlos bocanegra Chi PCP - General Gerontology 12/28/16 [employer]er [employer] Relationship Specialty Start Date End Date Carlos Chris Chi PCP - General Gerontology 12/28/16 [employer] Relationship Specialty Start Date End Date Carlos Chris Chi PCP - General Gerontology 12/28/16 REASON FOR VISIT (unrecogniz ed section and content) Reason Comments Orders Reason Comments Pre-Op Visit Reason Comments Post Op Consult to [facility] Reason Comments Appointment Specialty Diagnoses / Procedures Referred By Alesia lemons Referred To Contact Diagnoses Peritoneal adhesions Adhesion of omentum Ovarian cyst, left Procedures CONSULT TO MINIMALLY INVASIVE GYNECOLOGIC SURGERY OFFICE/OUTPATIENT [facility] 60-74 MINUTES Gudelia Mi MD [facility] [place] [address] Referral ID Status Reason Start Date Expiration Date V isits Requested Visits Authorized [id number] Closed PCP Requested Referral Auto-Generated Referral 03/23/2023 03/22/2024 1 1 Reason Comments Post Op Pain Reason Comments Medication Question Reason Comments Post Op 3 weeks Goals (unrecognized section and content) INFORMATION SOURCE (unrecogn ized section and content) DATE CREATED AUTHOR AUTHOR'S ORGANIZ ATION 01/14/2023 [facility] DATE CREATED AUTHOR AUTHOR'S ORGANIZ ATION 05/11/2023 [facility] DATE CREATED AUTHOR AUTHOR'S ORGANIZ ATION 05/31/2023 [facility] DATE CREATED AUTHOR AUTHOR'S ORGANIZ ATION 11/26/2023 [facility] FOR RECORDS PERTAINING TO PATIENTS WHO ARE [...] BE BASED ON THE PRIMARY CLINICAL RECORDS. [facility]. provides no warranty or guarantee of the accuracy or completeness of information in this document.
== END | disposition home or self-care (01) ==
LOC: OPBI 11:42
PROVIDERS: PCP Family Medicine Geriatric Medicine; Referring Provider Family Medicine Geriatric Medicine; Visit Provider Family Medicine Geriatric Medicine
DX: Z12.31 Encounter for screening mammogram for malignant neoplasm of breast (principal); Z80.3 Family history of malignant neoplasm of breast
CPT/HCPCS: 77063; 77067

== ENCOUNTER → 2024-01-09 | Outpatient (CLI) | payer MEDICAID, SELFPAY | END | disposition home or self-care (01) | LOC: PSN 12:00 | PROVIDERS: PCP Family Medicine Geriatric Medicine; Referring Provider Family Medicine Geriatric Medicine; Visit Provider Family Medicine Geriatric Medicine | DX: R68.83 Chills (without fever) (principal) | CPT/HCPCS: 87631 ==

== ENCOUNTER → 2024-03-19 | Outpatient (CLI) | payer MEDICAID, SELFPAY ==
--- NOTE | 2024-03-19 09:34 | US_ITS ---
STUDY: ABDOMINAL ULTRASOUND - RIGHT UPPER QUADRANT; ELASTOGRAPHY REASON FOR VISIT: Female, 48 years old. Liver fibrosis. TECHNIQUE: Ultrasound evaluation of the right upper quadrant was performed with real-time and static santiago-scale imaging. Point quantification shear wave elastography was performed ([employer]). TECHNICAL QUALITY: Limited. Examination limited by bowel gas. COMPARISON: Comparison is made with prior study dated October 04, 2023. FINDINGS: Liver: The liver measures 14.2 cm. There is increased echogenicity consistent with fatty infiltration. The bile ducts are within normal limits. There is hepatic color flow. The direction of portal flow is hepatopetal. There is no demonstrated mass lesion. Median liver stiffness measured 9.5 kPa. Gallbladder: Normal distended gallbladder. The gallbladder wall measures 1 mm. There is a negative sonographic Luis''s sign. There is no pericholecystic fluid. There are no gallstones. Common Bile Duct (C.B.D.): The common bile duct measures 1 mm. Pancreas: Limited visualization due to overlying bowel gas. Right Kidney: Normal size of the right kidney. The right kidney measures 8.1 x 5.1 x 4.4 cm. Normal renal cortex. The right cortex measures 1.4 cm. There is no demonstrated renal mass or cyst. There is no right hydronephrosis. US/ABD Limited w/ Elastography IMPRESSION: 1. Liver stiffness measures 9.5 kPa compatible with F2-F3 (Mild to moderate liver fibrosis) Metavir score. Electronically Signed: Carlos Agarwal MD at 13:52 EDT ,
[2024-03-19 10:55] LABS: Absolute Lymphocyte Count 1.89 X10^3/uL (0.83-4.51); Absolute Neutrophil Count 3.4 X10^3/uL (2.0-7.7); Basophil# 0.07 X10^3/uL; Basophil% 1.2 % (0-1); Eosinophil# 0.15 X10^3/uL; Eosinophils% 2.5 % (0-5); Hematocrit 39.9 % (37-47); Hemoglobin 12.6 g/dL (12.0-15.0); Lymphocyte # 1.89 X10^3/ul (0.83-4.51); Lymphocyte % 31.9 % (19-41); Mean Corp Hgb Conc 31.6 g/dL (32-36); Mean Corpuscular Hgb 30.8 pg (27.0-32.0); Mean Corpuscular Volume 97.6 fL (81-99); Mean Platelet Vol. 10.4 fl (6.2-12.0); Monocyte# 0.42 X10^3/uL; Monocyte% 7.1 % (0-10); NRBC Flagged by Analyzer 0 % (0-5); Neutrophil # 3.38 X10^3/uL (2.7-7.7); Platelet Count 259 K/mm3 (150-450); RBC Distribution Width CV 13.8 % (11.6-14.6); RBC Distribution Width SD 49.7 fl (35.1-43.9); Red Blood Count 4.09 M/mm3 (4.2-5.4); White Blood Count 5.9 K/mm3 (4.4-11.0)
[2024-03-19 11:02] LABS: International Normalized Ratio 1.1; Prothrombin Time (Protime)PT. 14.6 SECONDS (11.7-14.9)
[2024-03-19 11:37] LABS: ALB/GLOB Ratio 0.9 RATIO (0.9-2.4); AST(SGOT) 28 U/L (15-37); Alanine Aminotransfer ALT/SGPT 27 U/L (13-56); Albumin, Serum 3.7 g/dL (3.2-5.0); Alkaline Phosphatase 86 U/L (45-117); Anion Gap 3 (5-15); BUN 11 mg/dL (7-18); BUN/Creat Ratio 10.4 RATIO (10-20); CRP < 2.90 mg/L (0.0-3.0); Calcium,Total 8.7 mg/dL (8.5-10.1); Chloride 107 mmol/L (98-107); Cholesterol 150 mg/dL (200); Creatinine, Serum 1.06 mg/dL (0.55-1.02); EST Glomerular Filtration Rate 59 mL/min (>60); Est Glom Filt Rate - Afr Amer 72 mL/min (>60); Ferritin 113 ng/mL (8-252); Globulin 4.2 g/dL (2.2-4.2); Glucose 83 mg/dL (74-106); High Density Lipoprotein 52 mg/dL; Iron 104 ug/dL (50-170); Iron Binding Capacity,Total 343 ug/dL (250-450); LDH 195 U/L (84-246); PERCENT IRON SATURATION 30.3 % (15.0-55.0); Potassium 4.3 mmol/L (3.5-5.1); Protein, Total 7.9 g/dL (6.4-8.2); Sodium Level 138 mmol/L (136-145); Triglycerides 132 mg/dL; Very Low Density Lipoprotein 26 mg/dL (5-40)
[2024-03-19 11:49] LABS: Hemoglobin A1c 5.1 % (3.8-5.6)
[2024-03-19 13:01] LABS: HIV - WCH Non-Reactive (Nonreactive); Vitamin D,25 Hydroxy 30.8 ng/mL
[2024-03-20 15:09] LABS: ANTINUCLEAR ANTIBODIES DIRECT Negative (Negative); Anti-Mitochondrial AB <20.0 Units (0.0-20.0)
[2024-03-21 15:09] LABS: AFP, Tumor Marker 13.2 ng/mL (0.0-6.4); Angiotensin Convert Enzyme 26 U/L (14-82); Anti-Smooth Muscle ABS 9 Units (0-19); Ceruloplasmin 26.2 mg/dL (19.0-39.0); Copper, Serum or Plasma 106 ug/dL (80-158); Cytoplasmic Ab (C-ANCA) <1:20 titer (Neg:<1:20); HEPATITIS B SURFACE AG Negative (Negative); Haptoglobin 128 mg/dL (42-296); Hep C Antibodies Non Reactive (Non Reactive); Hepatitis A IgM Antibody Negative (Negative); Hepatitis B Core AB IgM Negative (Negative); Perinuclear Ab (P-ANCA) <1:20 titer (Neg:<1:20)
== END | disposition home or self-care (01) ==
LOC: US 09:31
PROVIDERS: PCP Family Medicine Geriatric Medicine; Referring Provider Internal Medicine; Visit Provider Internal Medicine
DX: K76.0 Fatty (change of) liver, not elsewhere classified (principal); I10 Essential (primary) hypertension; E66.9 Obesity, unspecified
CPT/HCPCS: 36415; 76705; 76981; 80053; 80061; 80074; 82105; 82164; 82306; 82390; 82525; 82728; 83010; 83036; 83516; 83540; 83550; 83615; 85025; 85610; 86038; 86140; 86225; 86235; 86256; 86703

== ENCOUNTER → 2024-03-30 | Outpatient (CLI) | payer MEDICAID, SELFPAY ==
--- NOTE | 2024-04-02 07:29 | STRESSREP ---
Stress Test Report Pharmacologic myocardial perfusion stress test. 48-year-old lady with a history of chest pain and mildly elevated calcium score Resting EKG demonstrates sinus rhythm with a rate of 63 bpm. Resting blood pressure is 114/68 mmHg. 0.4 mg of regadenoson was infused per usual protocol followed by rapid intravenous saline flush injection. Continuous EKG monitoring was performed. The maximum heart rate was 96 bpm which was 55% of max impacted heart rate the maximum workload was 1 metabolic equivalent. At rest there were no ST or T wave changes noted to suggest ischemia and at peak infusion nonspecific ST changes were noted which did not meet the criteria for ischemia. No clinical angina is noted. The final blood pressure was 110/68 mmHg. the patient had previously been placed on a treadmill and exercised to 5 minutes and 25 seconds reaching a maximum heart rate of 123 bpm and 70% of maximum predicted heart rate. It was felt that this was an inadequate response to exercise and therefore the test was changed to a pharmacologic stress test as noted above. Myocardial perfusion protocol. 11.7 mCi of technetium 99m sestamibi was injected at rest. 0.4 mg of regadenoson was infused per usual protocol. At peak infusion 34.1 mCi of technetium 99m sestamibi was injected stress images were obtained stress and rest images were reconstructed and compared in the short axis vertical long and horizontal long axis. Gated images were also obtained. Perfusion SPECT analysis: Review of the stress images demonstrate normal uptake of tracer noted in all areas of the myocardium. The resting images similar demonstrated normal uptake of tracer noted in all areas of the myocardium. No areas of reversibility are noted to suggest ischemia and no previous infarct is noted. Gated SPECT analysis: The gated ejection fraction is 66%. Conclusion: Normal pharmacologic myocardial perfusion stress test. Preserved ejection fraction.
== END | disposition home or self-care (01) ==
LOC: CVS 06:43
PROVIDERS: PCP Family Medicine Geriatric Medicine; Referring Provider Physician Assistant Medical; Visit Provider Physician Assistant Medical
DX: R07.9 Chest pain, unspecified (principal)
CPT/HCPCS: 78452; 93017; A9500; A4216; J2785

== ENCOUNTER → 2024-04-04 | Outpatient (CLI) | payer MEDICAID, SELFPAY ==
--- NOTE | 2024-04-04 07:37 | CT_ITS ---
STUDY: CT ABDOMEN AND PELVIS WITH AND WITHOUT CONTRAST REASON FOR EXAM: Female, 48 years old. NAFLD, AFP 13 -- Triple phase, R/O HCC RADIATION DOSAGE (If Supplied By Facility): CTDIvol = ( 13.14 ) mGy, DLP = ( 1235.67 ) mGycm TECHNIQUE: Transaxial images were obtained from the dome of the diaphragm to the symphysis pubis without oral contrast. IV 100mL Isovue-300 was administered. Sagittal and coronal images were reconstructed. Individualized dose optimization techniques were used for this CT. COMPARISON: None. FINDINGS: There is a 1.1 cm calcified granuloma in the right lower lobe. Coronary artery calcification. There is decreased attenuation of the liver consistent with steatosis. Normal gallbladder and extrahepatic biliary system. There are multiple benign calcified granulomata of the spleen. Normal pancreas. Normal bilateral adrenal glands. Normal right kidney. Normal left kidney. The patient is status post subtotal gastrectomy. Normal small intestine. Normal colon. The appendix is visualized and appears normal. Normal abdominal aorta. Normal inferior vena cava. Normal retroperitoneum. Normal urinary bladder. There is absence of the uterus consistent with a prior hysterectomy. Calcified injection granulomas overlying the left buttock. There are degenerative changes of the visualized lumbar spine. CT/CT Abd/Pelvis W/WO Contrast IMPRESSION: Status post subtotal gastrectomy. Fatty infiltration of the liver. Electronically Signed: Carlos Agarwal MD at 15:30 EDT ,
== END | disposition home or self-care (01) ==
LOC: CT 07:36
PROVIDERS: PCP Family Medicine Geriatric Medicine; Referring Provider Internal Medicine; Visit Provider Internal Medicine
DX: R77.2 Abnormality of alphafetoprotein (principal); K76.0 Fatty (change of) liver, not elsewhere classified
CPT/HCPCS: 74178; Q9967

== ENCOUNTER → 2024-05-18 | Outpatient (CLI) | payer MEDICAID, SELFPAY ==
[2024-05-18 11:19] LABS: Platelet Count 251 K/mm3 (150-450); RET-HE 33.6 pg (30-35); Reticulocyte Count 0.75 % (0.5-1.5)
[2024-05-18 12:00] LABS: Ferritin 95 ng/mL (8-252); Iron 87 ug/dL (50-170); Iron Binding Capacity,Total 322 ug/dL (250-450)
[2024-05-22 11:59] LABS: AFP, Tumor Marker 36.9 ng/mL (0.0-6.4); Alpha-1-Globulins 0.2 g/dL (0.0-0.4); Alpha-2-Globulins 0.6 g/dL (0.4-1.0); Anti-Centromere B Ab <0.2 AI (0.0-0.9); Anti-Chromatin <0.2 AI (0.0-0.9); Anti-Jo <0.2 AI (0.0-0.9); Anti-Scleroderma-70 AB <0.2 AI (0.0-0.9); Anti-dsDNA Ab <1 IU/mL (0-9); Gamma Globulin 1.7 g/dL (0.4-1.8); Immunoglobulin A 438 mg/dL (87-352); Immunoglobulin G 1499 mg/dL (586-1602); Immunoglobulin M 321 mg/dL (26-217); PROEL- TOTAL PROTEIN 7.4 g/dL (6.0-8.5); RNP Ab 0.2 AI (0.0-0.9); SJOGREN'S Anti-SS-A test < 0.2 AI (0.0-0.9); SJOGREN'S Anti-SS-B test < 0.2 AI (0.0-0.9); Smith Ab <0.2 AI (0.0-0.9)
== END | disposition home or self-care (01) ==
LOC: LAB 10:54
PROVIDERS: PCP Family Medicine Geriatric Medicine; Referring Provider Internal Medicine Gastroenterology; Visit Provider Internal Medicine Gastroenterology
DX: R77.2 Abnormality of alphafetoprotein (principal)
CPT/HCPCS: 36415; 82105; 82728; 82784; 83540; 83550; 84165; 85045; 86225; 86235; 86334

== ENCOUNTER → 2024-05-23 | Outpatient (CLI) | payer MEDICAID, SELFPAY ==
[2024-05-23 10:34] LABS: Absolute Lymphocyte Count 2.47 X10^3/uL (0.83-4.51); Absolute Neutrophil Count 2.5 X10^3/uL (2.0-7.7); Basophil# 0.07 X10^3/uL; Basophil% 1.3 % (0-1); Eosinophil# 0.07 X10^3/uL; Eosinophils% 1.3 % (0-5); Hematocrit 43.1 % (37-47); Hemoglobin 13.9 g/dL (12.0-15.0); Lymphocyte # 2.47 X10^3/ul (0.83-4.51); Lymphocyte % 45.5 % (19-41); Mean Corp Hgb Conc 32.3 g/dL (32-36); Mean Corpuscular Hgb 30.6 pg (27.0-32.0); Mean Corpuscular Volume 94.9 fL (81-99); Mean Platelet Vol. 11.4 fl (6.2-12.0); Monocyte# 0.31 X10^3/uL; Monocyte% 5.7 % (0-10); NRBC Flagged by Analyzer 0 % (0-5); Platelet Count 240 K/mm3 (150-450); RBC Distribution Width CV 13.3 % (11.6-14.6); RBC Distribution Width SD 46.6 fl (35.1-43.9); Red Blood Count 4.54 M/mm3 (4.2-5.4); White Blood Count 5.4 K/mm3 (4.4-11.0)
[2024-05-23 11:31] LABS: ALB/GLOB Ratio 0.9 RATIO (0.9-2.4); AST(SGOT) 66 U/L (15-37); Alanine Aminotransfer ALT/SGPT 62 U/L (13-56); Albumin, Serum 3.9 g/dL (3.2-5.0); Alkaline Phosphatase 68 U/L (45-117); Anion Gap 6 (5-15); BUN 14 mg/dL (7-18); BUN/Creat Ratio 10.7 RATIO (10-20); Calcium,Total 9.1 mg/dL (8.5-10.1); Chloride 101 mmol/L (98-107); Cholesterol 241 mg/dL (200); Creatinine, Serum 1.31 mg/dL (0.55-1.02); EST Glomerular Filtration Rate 46 mL/min (>60); Est Glom Filt Rate - Afr Amer 56 mL/min (>60); Globulin 4.4 g/dL (2.2-4.2); Glucose 79 mg/dL (74-106); High Density Lipoprotein 72 mg/dL; Potassium 4.4 mmol/L (3.5-5.1); Protein, Total 8.3 g/dL (6.4-8.2); Sodium Level 137 mmol/L (136-145); Triglycerides 115 mg/dL; Very Low Density Lipoprotein 23 mg/dL (5-40)
[2024-05-23 12:20] LABS: Hemoglobin A1c 5.3 % (3.8-5.6)
== END | disposition home or self-care (01) ==
LOC: POLAB3 09:44
PROVIDERS: Nurse Practitioner Family; PCP Family Medicine Geriatric Medicine; Visit Provider Family Medicine Geriatric Medicine
DX: E78.5 Hyperlipidemia, unspecified (principal); E11.65 Type 2 diabetes mellitus with hyperglycemia; I10 Essential (primary) hypertension
CPT/HCPCS: 36415; 80053; 80061; 83036; 84439; 84443; 85025

== ENCOUNTER → 2024-06-05 | Outpatient (CLI) | payer MEDICAID, SELFPAY | END | disposition home or self-care (01) | LOC: POLAB3 14:43 | PROVIDERS: PCP Family Medicine Geriatric Medicine; Visit Provider Family Medicine Geriatric Medicine | DX: R68.83 Chills (without fever) (principal) | CPT/HCPCS: 87631 ==

== ENCOUNTER → 2024-06-19 | Outpatient (CLI) | payer MEDICAID, SELFPAY ==
--- NOTE | 2024-06-19 12:23 | MRI_ITS ---
MRI Abdomen w/ and w/out contrast 06/19/2024 12:45 PM COMPARISON: None CLINICAL HISTORY: elevated AFP TECHNIQUE: Multiplanar T1 and T2 weighted, diffusion and dynamic post-gadolinium images were obtained through the abdomen before and after administration of 13 cc of IV Clariscan FINDINGS: Liver: Unremarkable Gallbladder: Unremarkable Pancreas: Unremarkable Spleen: Unremarkable Adrenal Glands: Unremarkable Kidneys: Unremarkable GI Tract: Status post subtotal gastrectomy. Lymphadenopathy: Absent Ascites: Absent Bones: No suspicious lesions MRI/MRI Abd WITH and W/O Contrast IMPRESSION: No acute abnormalities. Electronically Signed: Julian Thompson MD at 23:42 EDT ,
== END | disposition home or self-care (01) ==
LOC: MRI 12:15
PROVIDERS: PCP Family Medicine Geriatric Medicine
DX: R77.2 Abnormality of alphafetoprotein (principal)
CPT/HCPCS: 74183; A9575; A4216

== ENCOUNTER → 2024-06-27 | Outpatient (CLI) | payer MEDICAID, SELFPAY ==
[2024-06-27 11:18] LABS: Absolute Lymphocyte Count 2.82 X10^3/uL (0.83-4.51); Absolute Neutrophil Count 4.6 X10^3/uL (2.0-7.7); Basophil# 0.06 X10^3/uL; Basophil% 0.7 % (0-1); Eosinophil# 0.08 X10^3/uL; Hematocrit 40.2 % (37-47); Hemoglobin 12.9 g/dL (12.0-15.0); Lymphocyte # 2.82 X10^3/ul (0.83-4.51); Lymphocyte % 34.9 % (19-41); Mean Corp Hgb Conc 32.1 g/dL (32-36); Mean Corpuscular Hgb 29.8 pg (27.0-32.0); Mean Corpuscular Volume 92.8 fL (81-99); Mean Platelet Vol. 10.8 fl (6.2-12.0); Monocyte# 0.49 X10^3/uL; Monocyte% 6.1 % (0-10); NRBC Flagged by Analyzer 0 % (0-5); Neutrophil # 4.59 X10^3/uL (2.7-7.7); Neutrophil % 56.9 % (47-70); Platelet Count 377 K/mm3 (150-450); RBC Distribution Width CV 12.3 % (11.6-14.6); RBC Distribution Width SD 42.2 fl (35.1-43.9); Red Blood Count 4.33 M/mm3 (4.2-5.4); White Blood Count 8.1 K/mm3 (4.4-11.0)
[2024-06-27 11:25] LABS: International Normalized Ratio 1.1; Prothrombin Time (Protime)PT. 14.3 SECONDS (11.7-14.9)
[2024-06-27 11:56] LABS: ALB/GLOB Ratio 0.9 RATIO (0.9-2.4); AST(SGOT) 28 U/L (15-37); Alanine Aminotransfer ALT/SGPT 26 U/L (13-56); Albumin, Serum 3.6 g/dL (3.2-5.0); Alkaline Phosphatase 86 U/L (45-117); Anion Gap 7 (5-15); BUN 12 mg/dL (7-18); BUN/Creat Ratio 12.6 RATIO (10-20); Calcium,Total 9.2 mg/dL (8.5-10.1); Chloride 103 mmol/L (98-107); Creatinine, Serum 0.95 mg/dL (0.55-1.02); EST Glomerular Filtration Rate 67 mL/min (>60); Est Glom Filt Rate - Afr Amer 81 mL/min (>60); Globulin 4.1 g/dL (2.2-4.2); Glucose 81 mg/dL (74-106); Potassium 4.3 mmol/L (3.5-5.1); Protein, Total 7.7 g/dL (6.4-8.2); Sodium Level 139 mmol/L (136-145)
== END | disposition home or self-care (01) ==
PROVIDERS: PCP Family Medicine Geriatric Medicine; Visit Provider Family Medicine Geriatric Medicine
DX: Z01.818 Encounter for other preprocedural examination (principal); E78.5 Hyperlipidemia, unspecified
CPT/HCPCS: 36415; 80053; 85025; 85610

== ENCOUNTER → 2024-06-29 | Outpatient (CLI) | payer MEDICAID, SELFPAY ==
[2024-06-30 04:08] LABS: AFP, Tumor Marker 4.6 ng/mL (0.0-6.4)
== END | disposition home or self-care (01) ==
LOC: POLAB3 09:51
PROVIDERS: PCP Family Medicine Geriatric Medicine; Visit Provider Family Medicine Geriatric Medicine
DX: R77.2 Abnormality of alphafetoprotein (principal)
CPT/HCPCS: 36415; 82105

== ENCOUNTER → 2024-07-05 | Outpatient (CLI) | payer MEDICAID, SELFPAY ==
--- NOTE | 2024-07-05 09:10 | EKG12_ITS ---
Test Reason : PRE OP Blood Pressure : / mmHG Vent. Rate : 051 BPM Atrial Rate : 051 BPM P-R Int : 114 ms QRS Dur : 082 ms QT Int : 448 ms P-R-T Axes : 069 020 044 degrees QTc Int : 412 ms Sinus bradycardia Otherwise normal ECG Confirmed by Joshua Mack ([id number]), writer editor OSIRIS GAONA ([id number]) on 07/06/2024 6:02:06 AM Referred By: Carlos Chris Confirmed By:Joshua Mack
== END | disposition home or self-care (01) ==
LOC: PSN 09:10
PROVIDERS: PCP Family Medicine Geriatric Medicine; Referring Provider Family Medicine Geriatric Medicine; Visit Provider Family Medicine Geriatric Medicine
DX: Z01.818 Encounter for other preprocedural examination (principal)
CPT/HCPCS: 93005

== ENCOUNTER 2024-07-23 08:00 | Outpatient (CLI) | payer MEDICAID, SELFPAY | END 2024-07-23 23:00 | disposition home or self-care (01) | LOC: SDC 12-13 09:57 | PROVIDERS: Anesthesiology; PCP Family Medicine Geriatric Medicine; Referring Provider Student in an Organized Health Care Education/Training Program; Visit Provider Student in an Organized Health Care Education/Training Program | DX: Z01.818 Encounter for other preprocedural examination (principal); Z53.9 Procedure and treatment not carried out, unspecified reason | CPT/HCPCS: 36415; 84443 ==

== ENCOUNTER → 2024-08-01 | Outpatient (CLI) | payer MEDICAID, SELFPAY ==
--- OUTSIDE RECORDS SUMMARY | 2024-08-01 12:50 | XMS RPT_ITS | CCD ---
Author Organization [facility] Care Team Providers Care Fee Clerk Name Role Phone Lisbeth ENMA, Merly Agustin Unavailable [phone] Aries, Carlos Chi Primary Care Provider [phone] ANAID GARSIA Unavailable DONCA, ZANDRA Unavailable STARR MCGINNIS Unavailable PCP, Other Primary Care Physician PCP, [...] Primary Care Unavailable SYLVIA AYALA Attending Unavailable Carlos Chris MD-Gerardo Primary Care Provider ANAID GARSIA Attending Unavailable ARIES, CARLOS-CHI Primary Care Unavailable Aries, Carlos Chi Primary Care Provider [phone] GUDELIA MI Referring Unavailable ARIES, CARLOS CHI Primary Care Unavailable GUDELIA MI Referring Unavailable ARIES, CARLOS CHI Primary Care Unavailable GUDELIA MI Referring Unavailable ARIES, CARLOS CHI Primary Care Unavailable GUDELIA MI Attending Unavailable ARISE, CARLOS CHI Primary Care Unavailable SELF Referring Unavailable Allergies Allergy Classification Reported Allergen(s) Allergy Type Date of Onset Reaction(s) Facility (4 sources) citalopram drug allergy 6 [facility] Work Phone: (20 sources) lithium; Translations: [LITHIUM] drug allergy 6 GI Upset [facility] Work Phone: (20 sources) Citalopram; Translations: [CITALOPRAM] Drug Allergy 3 GI Upset [facility] Work Phone: (20 sources) Codeine; Translations: [CODEINE] Drug Allergy 3 Other: See Comments [facility] (19 sources) Non-steroidal anti-inflammato ry agent; Translations: [NSAIDS (NON-STEROIDAL ANTI-INFLAMMATO RY DRUG)] Drug Allergy 3 Other: See Comments [facility] NEGATED: Highlighted row has been ruled out! (3 sources) natural latex rubber; Translations: [LATEX, NATURAL RUBBER] Drug allergy (disorder) [facility] NEGATED: Highlighted row has been ruled out! (3 sources) No IV Contrast Allergy.; Translations: [IV Dye, Iodine Containing] Drug allergy (disorder) [facility] [place] Medications Current Medications Medication Drug Class(es) Dates Sig (Normalized) Sig (Original) acetaminophen 32 mg/ml oral suspension (15 sources) acetaminophen 16 0 mg/5 mL (5 mL) suspension Take by mouth. 0 Active Acetaminophen 16 0 MG/5ML as directed Orally Not-Taking [id number] actuat albuterol 0.09 mg/actuat metered dose inhaler (20 sources) beta2-Adrenergic Agonist Start: 04-07-2016 take 2 puff(s) by inhalation every four hours as needed for wheezing albuterol HFA (VENTOLIN HFA) 90 mcg/actuation inhaler Indications: Mild intermittent asthma without complication Inhale 2 Puffs as instructed every 4 hours as needed for Wheezing/Shortness of Breath. 1 Inhaler 3 04/07/2016 Active take 1 puff(s) by in halation every four hours albuterol (Ventolin HFA) 90 mcg/actuatio n inhaler Inhale 1 puff every 4 hours if needed. 0 Active take 1 puff(s) by in halation every four hours as needed Ventolin HFA 108 (90 Base) MCG/ACT 1 puf f as needed Inhalation every 4 hrs Active VENTOLIN HFA 108 (90 Base) MCG/ACT AERS one inhalation three times a day ALBUTEROL SULFATE [id number] Lizzie Hawkins RN RN VENTOLIN HFA 108 (90 Base) MCG/ACT AERS one inhalation three times a day ALBUTEROL SULFATE [id number] iLzzie Hawkins RN RN Comment on above: Inhale 2 Puffs as in structed every 4 hours as needed for Wheezing/Shortness of Breath. allopurinol 100 mg oral tablet (20 sources) Xanthine Oxidase Inhibitor Start: 03-01-20 23 allopurinol (ZYLOPRIM) 100 mg tablet 03/01/2023 Active ALPRAZolam 0.25 mg oral tablet (20 sources) Benzodiazepine Start: 05-19-20 16 take 1 tablet by mouth once daily as needed for anxiety ALPRAZolam (XANAX) 0.25 mg tablet Indications: Adjustment disorder with mixed anxiety and depressed mood Take 1 tablet by mouth once daily as needed for Anxiety. 10 tablet 0 05/19/2016 Active Comment on above: Take 1 tablet by chaim th once daily as needed for Anxiety. aspirin 81 mg delayed release oral tablet (20 sources) Platelet Aggregation Inhibitor, Nonsteroidal Anti-inflammatory Drug take 1 tablet by mouth once daily aspirin 81 mg EC tablet Take 1 tablet (81 mg) by mouth once daily. 0 Active Calcium (16 sources) Phosphate Binder, Calcium CALCIU M ORAL Take by mouth. Active CALCIUM ORAL Ivan e by mouth. 0 Active Comment on above: Take by mouth. calcium citrate 1500 mg / cholecalciferol 250 unt oral tablet (1 source) Vitamin D calcium citrate- vitamin D3 (Citracal + D Maximum) 315 mg-6.25 mcg (250 unit) tablet Citracal Calcium+D 0 Active cholecalciferol 0.05 mg oral tablet (20 sources) Vitamin D take 1 tablet by mouth once daily cholecalciferol (Vitamin D3) 25 MCG (1000 UT) tablet Take 1 tablet (25 mcg) by mouth once daily. 0 Active take 1 tablet by mouth once valeriy y cholecalciferol (Vitamin D-3) 50 MCG (2000 UT) tablet Take 1 tablet (2,000 Units) by mouth once daily. 0 Active take 1 tablet by chaim every twenty-four hours Vitamin D 50 MCG (2000 UT) 1 tablet Oral ly Once a day for 30 day(s) Not-Taking cholecalciferol (vitamin D3) (Vitamin D3) 50 mcg (2,000 unit) take 1 capsule by [facility] every twenty-four hours Vitamin D3 50 MCG (2000 UT) 1 capsule Or ally Once a day for 30 day(s) Active take 1 tablet by mouth once valeriy y VITAMIN D3 5000 UNIT TABS One tablet by mouth daily CHOLECALCIFEROL [id number] Lizzie Hawkins RN RN Citracal Calcium+D (2 sources) Citracal Calcium +D Active CPAP (20 sources) CPAP nightly Not -Taking CPAP nightly Act dipika cyanocobalamin, vitamin B-12, 3,000 mcg capsule (1 source) cyanocobalamin, vitamin B-12, 3,[address] under the tongue. 0 Active docusate sodium 100 mg oral capsule (6 sources) Start: End: take 1 capsule by mouth twice daily docusate sodium (COLACE) 100 mg capsule Take 1 capsule by mouth twice daily. 60 capsule 0 05/06/2023 06/05/2023 Active Comment on above: Take 1 capsule by [facility] twice daily. doxycycline monohydrate 100 mg oral capsule (1 source) Tetracycline-cla ss Drug Start: End: take 1 capsule by mouth twice daily doxycycline monohydrate (MONODOX) 100 mg capsule Take 1 capsule by mouth twice daily for 10 days. 20 capsule 0 02/03/2023 02/13/2023 Active Comment on above: Take 1 capsule by [facility] twice daily for 10 days. 0.4 ml enoxaparin sodium 100 mg/ml prefilled syringe (17 sources) Low Molecular Weight Heparin inject 0.4 mL by subcutaneous injection once daily enoxaparin (Lovenox) 40 mg/0.4 mL syringe Inject 0.4 mL (40 mg) under the skin once daily. 0 Active inject 40 mg by subc utaneous injection once daily enoxaparin 30 mg/0.3 mL Syringe, Ordered By: Starr Mcginnis CNP Directions: 40 mg subcutaneous daily enteric contrast (will be provided with radiology test) (1 source) Start: 07-02-2024 End: 07-03-2024 enteric contrast (will be provided with radiology test) Indications: Elevated AFP , Abnormal tumor markers For CT PELVIS W IVCON order Administer, As Directed One Time Only, via Oral, Rectal, both Oral and Rectal, Enteric Tube, Stoma or Indwelling Catheter, Enteric Contrast as designated per enteric contrast guidelines 1 Each 07/02/2024 07/03/2024 Active 168 hr estradiol 0.80354 mg/hr transdermal system (12 sources) Estrogen Start: 05-10-2023 End: 12-06-2023 estradiol (CLIMARA) 0.075 mg/24 hr Apply 1 Patch as directed one time a week. to lower abd or buttocks. 12 Patch 11 12/06/2023 Active estradiol (Vivel le-DOT) 0.075 mg/[address] 1 patch on the skin 2 times a week. 0 Active apply 1 dose transde rmal route two times weekly Estradiol 0.075 MG/24HR 1 patch to skin Transdermal Two times a Week Active Comment on above: Apply 1 Patch as dir ected one time a week. to lower abd or buttocks. folic acid 0.4 mg / vitamin b12 1 mg sublingual tablet (16 sources) Vitamin B12 cyanocobalamin/f olic acid (VITAMIN B79-QIJJM ACID) 1,000-400 mcg lozg Dissolve under the tongue. Active Comment on above: Dissolve under the t ongue. iv contrast (will be provided with radiology test) (2 sources) Start: 07-02-2024 End: 07-03-2024 iv contrast (will be provided with radiology test) Indications: Elevated AFP , Abnormal tumor markers CT PELVIS W -Inject, intravenously, once for 1 dose.No IV access, insert saline lock prior to the beginning of sedation, infusion, injection of imaging exam. Discontinue saline lock post exam. If Pt. has a central line or IVAD, may access for administration according to line specific nursing protocol. Once exam is complete flush line and de-access according to line specific nursing protocol in the CT contrast administration guidelines link. 1 Each 07/02/2024 07/03/2024 Active Start: 02-08-2023 End: 02-09-2023 iv contrast (will be provide d with radiology test) MRI Pelvis Inject, intravenously, once for 1 dose. No IV access, insert saline lock prior to the beginning of sedation, infusion, injection of imaging exam. Discontinue saline lock post exam. If Pt has a central line or IVAD, may access for administration according to line specific nursing protocol. Once exam is complete flush line and de-access according to line specific nursing protocol in the MR contrast administration guidelines link. 1 Each 0 02/08/2023 02/09/2023 Active Comment on above: MRI Pelvis Inject, i ntravenously, once for 1 dose. No IV access, insert saline lock prior to the beginning of sedation, infusion, injection of imaging exam. Discontinue saline lock post exam. If Pt has a central line or IVAD, may access for administration according to line specific nursing protocol. Once exam is complete flush line and de-access according to line specific nursing protocol in the MR contrast administration guidelines link. MULTIVITAMIN ORAL (16 sources) MULTIVITAMIN ORA L Take by mouth. Flinstone chewables Active MULTIVITAMIN ORA L Take by mouth. Flinstone chewables 0 Active MULTIVITAMIN ORA L Take by mouth. 0 Active Comment on above: Take by mouth. Take by mouth. Flins tone chewables MULTIVITAMIN-FERROUS FUMARATE-FOLIC ACID 9 MG-200 MCG TABLET, HALF TABLET, (Centrum) (1 source) MULTIVITAMIN-DILIP RYANN FUMARATE-FOLIC ACID 9 MG-200 MCG TABLET, HALF TABLET, (Centrum) Take by mouth. 0 Active omeprazole 40 mg delayed release oral capsule (3 sources) Proton Pump Inhibitor Start: 09-23-2023 End: 12-22-2023 take 1 capsule by mouth twice daily omeprazole (PriLOSEC) [address] capsule Indications: Gastro-esophageal reflux disease without esophagitis Take 1 capsule (40 mg) by mouth 2 times a day. 60 capsule 2 09/23/2023 12/22/2023 Active take 1 capsule by mouth once pearl ly omeprazole 40 mg capsule,delayed release(DR/EC), Ordered By: Starr Mcginnis CNP Directions: 1 capsule oral daily pantoprazole 40 mg delayed release oral tablet (20 sources) Proton Pump Inhibitor take 1 tablet by mouth once daily pantoprazole (ProtoNix) 40 mg EC tablet Take 1 tablet (40 mg) by mouth once daily. 0 Active pediatric multivitamin no.76 (FLINTSTONES COMPLETE ORAL) (1 source) pediatric multivitamin no.76 (FLINTSTONES COMPLETE ORAL) Take by mouth. 0 Active rosuvastatin calcium 40 mg oral tablet (20 sources) HMG-CoA Reductase Inhibitor Start: 3 rosuvastatin (CRESTOR) 40 mg tablet 02/27/2023 Active simethicone 80 mg chewable tablet (15 sources) simethicone (Myl icon) 80 mg chewable tablet Chew 1 tablet (80 mg) 4 times a day as needed. after meals and at bedtime 0 Active levothyroxine sodium 0.175 mg oral capsule (20 sources) l-Thyroxine Start: 3 TIROSINT 175 mcg cap 02/28/2023 Active Start: 02-14-2017 End: 05-17-2025 SYNTHROID 50 MCG TABS Take o ne tablet daily LEVOTHYROXINE SODIUM [id number] Merly Bob NP Start: 02-14-2017 End: 05-17-2025 SYNTHROID 50 MCG TABS Take o ne tablet daily LEVOTHYROXINE SODIUM [id number] Merly Bob NP Start: 04-01-2016 End: 03-09-2023 take 1 tablet by mouth once daily LEVOXYL 25 mcg tablet Indications: Acquired hypothyroidism Take 1 tablet by mouth once daily. Take on empty stomach. For Thyroid. In addition to 200 mcg tablet. Do not substitute with generic 30 tablet 04/01/2016 03/09/2023 Discontinued Start: 08-28-2010 End: 03-09-2023 take 1 tablet by mouth once daily before breakfast LEVOXYL 200 mcg tablet Indications: Acquired hypothyroidism Take 1 tablet by mouth daily before breakfast. In addition to 25mcg tablet. Do not substitute with generic 30 tablet 04/01/2016 03/09/2023 Discontinued Start: 08-28-2010 SYNTHROID 200 MCG TABS LEVOTHYROXINE SODIUM [id number] Lizzie Hawkins RN RN Start: 08-28-2010 take 1 tablet by chaim once daily SYNTHROID 100 MCG TABS One tablet by mouth daily LEVOTHYROXINE SODIUM [id number] Kwaku Haider MD Start: 08-25-2010 take 1 tablet by chaim th once daily SYNTHROID 100 MCG TABS One tablet by mouth daily LEVOTHYROXINE SODIUM [id number] Kwaku Haider MD Start: 08-25-2010 take 1 tablet by chaim th once daily SYNTHROID 100 MCG TABS One tablet by mouth daily LEVOTHYROXINE SODIUM [id number] Kwaku Haider MD Start: 07-29-2010 take 1 tablet by chaim th once daily SYNTHROID 125 MCG TABS One tablet by mouth daily LEVOTHYROXINE SODIUM [id number] Kwaku Haider MD Start: 07-29-2010 take 1 tablet by chaim th once daily SYNTHROID 125 MCG TABS One tablet by mouth daily LEVOTHYROXINE SODIUM [id number] Kwaku Haider MD Start: 07-27-2010 End: 08-26-2010 take 1 tablet by mouth once daily SYNTHROID 88 MCG TABS One tablet by mouth daily LEVOTHYROXINE SODIUM [id number] Kwaku Haider MD Start: 07-27-2010 End: 08-26-2010 take 1 tablet by mouth once daily SYNTHROID 88 MCG TABS One tablet by mouth daily LEVOTHYROXINE SODIUM [id number] Kwaku Haider MD take 1 tablet by chaim once daily in the morning levothyroxine (Synthroid, Levoxyl) 150 mcg tablet Take 1 tablet (150 mcg) by mouth once daily in the morning. on an empty stomach 0 Active levothyroxine (T irosint) 150 mcg capsule Take 175 mcg by mouth once daily. 0 Active take 1 tablet by chaim th once daily in the morning Levothyroxine Sodium 150 MCG 1 tablet in the morning on an empty stomach Orally Once a day for 6 days Active take 1 tablet by chaim th once daily in the morning Levothyroxine Sodium 175 MCG 1 tablet in the morning on an empty stomach Orally Once a day Active End: 02-14-2017 take 1 tablet by mouth once daily SYNTHROID 25 MCG TABS One tablet by mouth daily LEVOTHYROXINE SODIUM [id number] Merly Bob NP take 1 tablet by chaim th once daily SYNTHROID 25 MCG TABS One tablet by mouth daily LEVOTHYROXINE SODIUM [id number] Lizzie Hawkins RN RN Comment on above: Take 1 tablet by chaim th daily before breakfast. In addition to 25mcg tablet. Do not substitute with generic Take 1 tablet by chaim th once daily. Take on empty stomach. For Thyroid. In addition to 200 mcg tablet. Do not substitute with generic ursodiol 300 mg oral capsule (15 sources) Bile Acid Start: 10-05-2022 take 1 capsule by mouth three times daily ursodiol (Actigall) 300 mg capsule Take 1 capsule (300 mg) by mouth 3 times a day. 0 10/05/2022 Active Start: 10-05-2022 take 1 capsule by mo ut every twelve hours Ursodiol 300 MG 1 capsule Orally Twice a day for 30 day(s) Sep, Not-Taking vilazodone hydrochloride 20 mg oral tablet (1 source) take 1 tablet by chaim th once daily vilazodone (Viibryd) 20 mg tablet Take 1 tablet (20 mg) by mouth once daily. 0 Active Vitamin B12 3000 MCG (2 sources) Vitamin B12 3000 MCG as directed Sublingual quick melts Active Vitamin D3 25 MCG (1000 UT) (2 sources) take 1 tablet by chami th once daily Vitamin D3 25 MCG (1000 UT) 1 tablet Orally Once a day Active Completed/Discontinued Medications Medication Drug Class(es) Dates Sig (Normalized) Sig (Original) acetaminophen 325 mg / oxyCODONE hydrochloride 5 mg oral tablet (8 sources) Opioid Agonist End: 09-11-2010 PERCOCET 5-325 MG TABS 1 tablet every 6 hours as needed for pain OXYCODONE-ACETAMINO PHEN [id number] Kwaku Hadier MD PERCOCET 5-325 M G TABS 1 tablet every 6 hours as needed for pain OXYCODONE-ACETAMINOPHEN [id number] Kwaku Haider MD End: 09-11-2010 PERCOCET 5-325 MG TABS 1 tab let every 6 hours as needed for pain OXYCODONE-ACETAMINOPHEN [id number] Kwaku Haider MD albuterol sulfate 90 mcg HFA Aerosol Inhaler Directions: by inhalation (2 sources) albuterol sulfat e 90 mcg HFA Aerosol Inhaler Directions: by inhalation Additional Instructions: Albuterol Sulfate (Proventil Hfa) 90 mcg/actuation HFA aerosol inhaler Active 2 PUFF inhalation Q4H 1 April 14, 2020 7:26am administer with spacer Albuterol Sulfate Discontinued 2 PUFF INHALATION Q4H February 09, 2021 8:17am May 25, 2022 10:54am administer with spacer Albuterol Sulfate (Proventil Hfa) 90 mcg/actuation HFA aerosol inhaler Discontinued 1 PUFF INHALATION ONCE January 09, 2020 8:28am April 14, 2020 7:27am three times a day Albuterol Sulfate (Ventolin Hfa) 90 mcg/actuation HFA aerosol inhaler Discontinued 1 PUFF INHALATION ONCE January 09, 2020 12:00am April 14, 2020 8:27am three times a day Albuterol Sulfate Active 1 PUFF EVERY 4 HOURS NEEDED March 12, 2019 1:59pmAlbuterol Sulfate Active 1 PUFF EVERY 4 HOURS NEEDED March 12, 2019 1:59pm Albuterol Sulfate (Albuterol Sulfate Hfa) 90 mcg/actuation HFA aeros... aspirin 325 mg Tablet Directions: oral (2 sources) aspirin 325 mg T ablet Directions: oral Additional Instructions: Aspirin Active 325 MG PO DAILY August 10, 2022 12:00am Take 1 tablet daily Aspirin Active 81 MG PO DAILY January 14, 2022 12:00am atorvastatin 80 mg oral tablet (2 sources) HMG-CoA Reductase Inhibitor take 1 tablet by mouth once daily at bedtime atorvastatin 80 mg Tablet, Ordered By: Zandra Portillo MD Directions: 1 tablet oral daily at bedtime Additional Instructions: AUTOSUB FOR ROSUVASTATIN 40MG 120 actuat budesonide 0.16 mg/actuat / formoterol fumarate 0.0045 mg/actuat metered dose inhaler (4 sources) Corticosteroid, beta2-Adrenergic Agonist SYMBICORT 160-4.5 MCG/ACT AERO three inhalations twice a day BUDESONIDE-FORMOTEROL FUMARATE [id number] Lizzie Hawkins RN RN SYMBICORT 160-4. 5 MCG/ACT AERO three inhalations twice a day BUDESONIDE-FORMOTEROL FUMARATE [id number] Lizzie Hawkins RN RN Celebrate Multi-Complete 18 - (14 sources) Celebrate Multi- Complete 18 - as directed Orally Not-Taking Celebrate Multi- Complete 18 - as directed Orally Active citalopram 20 mg oral tablet (8 sources) Serotonin Reuptake Inhibitor Start: 01-21-2019 citalopram (CELEXA) 20 mg tablet 20 mg. 0 01/21/2019 Active Comment on above: 20 mg. codeine phosphate 2 mg/ml / guaiFENesin 20 mg/ml oral solution (8 sources) Opioid Agonist Start: 08-28-2010 End: 09-11-2010 CHERATUSSIN AC 100-10 MG/5ML SYRP 5ml every 6hr as needed cough GUAIFENESIN-CODEINE [id number] Kwaku Haider MD Start: 08-28-2010 End: 09-11-2010 CHERATUSSIN AC 100-10 MG/5ML SYRP 5ml every 6hr as needed cough GUAIFENESIN-CODEINE [id number] Kwaku Haider MD Start: 08-28-2010 CHERATUSSIN AC 100-10 MG/5ML SYRP 5ml every 6hr as needed cough GUAIFENESIN-CODEINE [id number] Kwaku Haider MD cyclobenzaprine hydrochloride 10 mg oral tablet (8 sources) Muscle Relaxant End: 09-11-2010 take 1 tablet by mouth three times daily as needed FLEXERIL 10 MG TABS One tablet by mouth three times daily as needed CYCLOBENZAPRINE HCL [id number] Kwaku Haider MD escitalopram 10 mg oral tablet (4 sources) Serotonin Reuptake Inhibitor take 1 tablet by mouth once daily LEXAPRO 10 MG TABS One tablet by mouth daily ESCITALOPRAM OXALATE [id number] Lizzie Hawkins RN RN etodolac 200 mg oral capsule (12 sources) Nonsteroidal Anti-inflammatory Drug Start: 07-27-2010 End: 09-11-2010 take 1 tablet by mouth three times daily as needed for pain ETODOLAC 200 MG CAPS One tablet by mouth three times daily as needed pain ETODOLAC [id number] Kwaku Haider MD Flintstones Complete - (2 sources) Flintstones Comp lete - as directed Orally Active gabapentin 100 mg oral capsule (12 sources) Anti-epileptic Agent Start: 08-13-2010 End: 09-22-2016 take 2 tablets by mouth three times daily GABAPENTIN 100 MG CAPS Two tablets by mouth three times daily GABAPENTIN [id number] Kwaku Haider MD Start: 07-27-2010 NEURONTIN 300 MG CAPS one tab daily x 3d, then one tab twice daily x 1wk then one tab three times daily GABAPENTIN [id number] Kwaku Haider MD Start: 07-27-2010 NEURONTIN 300 MG CAPS one tab daily x 3d, then one tab twice daily x 1wk then one tab three times daily GABAPENTIN [id number] Kwaku Haider MD hydroCHLOROthiazide 12.5 mg oral capsule (20 sources) Thiazide Diuretic Start: 09-03-2015 take 1 capsule by mouth once daily Hydrochlorothiazide 12.5 mg capsule Indications: Essential hypertension Take 1 capsule by mouth once daily. 30 capsule 11 09/03/2015 Active Start: 07-27-2010 take 1 tablet by chaim once daily HYDROCHLOROTHIAZIDE 12.5 MG TABS One tablet by mouth daily HYDROCHLOROTHIAZIDE [id number] Kwaku Haider MD Comment on above: Take 1 capsule by mo [facility] once daily. hydrochlorothiazide 12.5 mg Tablet Directions: 1 tablet oral daily (2 sources) take 1 tablet by mouth once daily hydrochlorothiazide 12.5 mg Tablet Directions: 1 tablet oral daily ibuprofen 800 mg oral tablet (8 sources) Nonsteroidal Anti-inflammatory Drug Start: 2018 ibuprofen (MOTRIN) 800 mg tablet lidocaine hydrochloride 20 mg/ml mucous membrane topical solution (8 sources) Antiarrhythmic, Amide Local Anesthetic Start: 2009 End: 2009 LIDOCAINE VISCOUS 2 % SOLN 10ml swish and spit every 4hr as needed LIDOCAINE HCL [id number] Kwaku Haider MD Lisinopril (20 sources) Angiotensin Converting Enzyme Inhibitor End: 2023 LISINOPRIL ORAL Take by mouth. 0 12/06/2023 Discontinued (Other) take 1 tablet by mouth once valeriy y lisinopril 10 mg tablet Take 1 tablet (10 mg) by mouth once daily. 0 Active LISINOPRIL ORAL Take by mouth. 0 Active Comment on above: Take by mouth. oxyCODONE hydrochloride 5 mg oral tablet (20 sources) Opioid Agonist Start: 05-06-2023 End: 12-06-2023 take 1 tablet by mouth every six hours as needed for pain oxyCODONE IR (ROXICODONE) 5 mg immediate release tablet Indications: Post-op pain Take 1 tablet by mouth every 6 hours as needed for pain for up to 12 doses. 12 tablet 0 05/06/2023 12/06/2023 Discontinued (Other) take 5 mg by mouth e very six hours as needed oxyCODONE (Roxicodone) 5 mg/5 mL solutio n Take 5 mL (5 mg) by mouth every 6 hours if needed. 0 Active take 5 mL by mouth e very six hours as needed oxyCODONE HCl 5 MG/5ML 5 mL as needed Or ally every 6 hrs Not-Taking Comment on above: Take 1 tablet by chaim th every 6 hours as needed for pain for up to 12 doses. PARoxetine hydrochloride 40 mg oral tablet (20 sources) Serotonin Reuptake Inhibitor Start: 03-01-2023 End: 12-06-2023 PARoxetine (PAXIL) 40 mg tablet take 20 mL by mouth once daily p aroxetine HCl 10 mg/5 mL Suspension, Ordered By: Zandra Portillo MD Directions: 20 mL oral daily Potassium (6 sources) POTASSIUM ORAL T roberta by mouth. 0 Active Comment on above: Take by mouth. predniSONE 20 mg oral tablet (8 sources) Corticosteroid End: 08-13-20 10 take 1 tablet by mouth three times daily PREDNISONE 20 MG TABS One tablet by mouth three times daily PREDNISONE [id number] Kwaku Haider MD raNITIdine 150 mg oral tablet (8 sources) Histamine-2 Receptor Antagonist Start: 07-27-20 10 End: 09-22-20 16 take 1 tablet by mouth twice daily ZANTAC 150 MG TABS One tablet by mouth twice daily RANITIDINE HCL [id number] Kwaku Haider MD rosuvastatin 40 mg Tablet Directions: oral (2 sources) rosuvastatin 40 mg Tablet Directions: oral Additional Instructions: Rosuvastatin (Crestor) 40 mg tablet Active 40 MG PO DAILY August 07, 2020 12:00am sertraline 100 mg oral tablet (12 sources) Serotonin Reuptake Inhibitor Start: 08-13-20 End: 09-22-20 16 take 1 tablet by mouth once daily SERTRALINE HCL 100 MG TABS One tablet by mouth daily SERTRALINE HCL [id number] Kwaku Haider MD Start: 07-27-2010 take 1 tablet by chaim th once daily SERTRALINE HCL 50 MG TABS One tablet by mouth daily SERTRALINE HCL [id number] Kwaku Haider MD divalproex sodium 250 mg delayed release oral tablet (8 sources) Start: 09-11-2010 End: 09-22-2016 take 1 tablet by mouth twice daily DEPAKOTE 250 MG TBEC One tablet by mouth twice daily DIVALPROEX SODIUM [id number] Lizzie Hawkins RN RN Start: 09-11-2010 End: 09-22-2016 take 1 tablet by mouth twice daily DEPAKOTE 250 MG TBEC One tablet by mouth twice daily DIVALPROEX SODIUM [id number] Lizzie Hawkins RN RN Problems Active Problems Problem Classification Problem Date Documented Da te Episodic/Chronic Adjustment disorders (20 sources) Adjustment disorder; Translations: [Adjustment disorder with other symptoms] Onset: 11-16-2010 11-16-2010 Chronic Anxiety disorders (8 sources) Anxiety disorder; Translations: [Anxiety] Onset: 09-22-2016 09-22-2016 Chronic Asthma (20 sources) Asthma; Translations: [Unspecified asthma, uncomplicated] Onset: 05-13-2015 Resolved: 05-03-2023 09-22-2016 Chronic Chronic kidney disease (20 sources) [...] unspecified; Translations: [Gout, unspecified] Onset: 09-20-2022 Chronic Hepatitis (2 sources) Nonalcoholic steatohepatitis; Translations: [Nonalcoholic steatohepatitis (HAIRSTON)] Onset: 12-06-2023 12-06-2023 Chronic Hypertension with complications and secondary hypertension [...] malignant neoplasm Episodic Other aftercare (1 source) [facility] (current) use of aspirin; Translations: [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] Onset: 09-20-2022 Episodic Other diseases of kidney and ureters (1 source) Disorder of kidney and ureter, unspecified Episodic Other endocrine disorders (12 sources) Hyperparathyroidism; Translations: [Hyperparathyroidism, unspecified] Onset: 07-01-2023 12-06-2023 Chronic Other endocrine disorders (2 sources) Hyperparathyroidism, unspecified Chronic Other gastrointestinal disorders (10 sources) Malabsorption syndrome; Translations: [Intestinal malabsorption, unspecified] Chronic Other gastrointestinal disorders (12 sources) Abnormal intestinal absorption; Translations: [Intestinal malabsorption, unspecified] Onset: 07-01-2023 12-06-2023 Chronic Other gastrointestinal disorders (4 sources) Intestinal malabsorption, unspecified Chronic Other gastrointestinal disorders (1 source) Intestinal malabsorption; Translations: [Intestinal malabsorption, unspecified] Onset: 07-01-2023 07-01-2023 Chronic Other gastrointestinal disorders (4 sources) Bariatric surgery status Episodic Other gastrointestinal disorders (2 sources) Peritoneal adhesion; Translations: [Peritoneal adhesions (postprocedural) (postinfection)] Episodic Other gastrointestinal disorders (1 source) Adhesion of omentum; Translations: [Peritoneal adhesions (postprocedural) (postinfection)] Episodic Other gastrointestinal disorders (2 sources) History of bypass of stomach; Translations: [Bariatric surgery status] Onset: 12-06-2023 12-06-2023 Episodic Other hematologic conditions (2 sources) Alpha-fetoprotein raised; Translations: [Abnormality of alphafetoprotein] 07-02-2024 Episodic Other hematologic conditions (1 source) Abnormality of alphafetoprotein; Translations: [Elevated AFP] Onset: 07-13-2024 Episodic Other liver diseases (1 source) Fatty (change of) liver, not elsewhere classified; Translations: [Fatty (change of) liver, not elsewhere classified] Onset: 09-20-2022 Chronic Other nervous system disorders (1 source) Postoperative pain ; Translations: [Other acute postprocedural pain] 05-06-2023 Episodic Other nutritional; endocrine; and metabolic disorders (1 [...] [Other obesity due to excess calories] Onset: 07-01-2023 09-20-2022 Chronic Other nutritional; endocrine; and metabolic [...] Translations: [Body mass index (BMI) 38.0-38.9, adult] Onset: 07-01-2023 07-01-2023 Chronic Other nutritional; endocrine; and metabolic disorders (2 sources) Body mass index (BMI) 38.0-38.9, adult; Translations: [Body mass index [BMI] 38.0-38.9, adult] Onset: 09-20-2022 Chronic Other screening for suspected conditions (not mental disorders or infectious disease) (10 sources) Mammography abnormal; Translations: [Other abnormal and inconclusive findings on diagnostic imaging of breast] Onset: 02-02-2022 Resolved: 02-02-2022 Episodic Residual codes; unclassified (20 sources) Sleep apnea; [...] sources) Hypothyroidism; Translations: [Hypothyroidism, unspecified] Onset: 10-10-1999 Resolved: 06-10-2015 07-27-2010 Chronic Unclassified (1 source) Encounter for screening for COVID-19; Translations: [Encounter for screening for COVID-19] Onset: 09-17-2022 Past or Other Problems Problem Classification Problem Date Documented Da te Episodic/Chronic Abdominal pain (16 sources) Pelvic and perineal pain; Translations: [Pelvic and perineal pain] Onset: 05-06-2023 Episodic Administrative/social admission (3 sources) Marital conflict; Translations: [Problems in relationship with spouse or partner] Onset: 08-02-2013 Resolved: 05-13-2015 05-13-2015 Episodic Diabetes mellitus without complication (15 sources) Disorder of glucose metabolism; Translations: [Other abnormal glucose] Onset: 05-13-2015 Resolved: 05-03-2023 05-13-2015 Episodic Disorders of teeth and jaw (19 sources) Dental caries; Translations: [Dental caries, unspecified] Onset: 06-10-2015 06-10-2015 Episodic Other complications of (3 sources) Endocrine, nutritional and metabolic diseases complicating , unspecified trimester; Translations: [Thyroid dysfunction of mother, unspecified as to episode of care or not applicable] Onset: 02-06-2007 Resolved: 12-16-2010 12-16-2010 Episodic Other complications of (3 sources) High risk ; Translations: [Supervision of high risk , unspecified, unspecified trimester] Onset: 04-06-2007 Resolved: 12-16-2010 12-16-2010 Episodic Other connective tissue disease (4 sources) Swelling of lower limb; Translations: [Localized swelling, mass and lump, right lower limb] Onset: 09-22-2016 09-22-2016 Episodic Other nutritional; endocrine; and metabolic disorders (20 sources) Body mass index 30+ - obesity; Translations: [Overweight] Onset: 07-27-2010 Resolved: 05-03-2023 09-22-2016 Chronic Other and delivery including normal (3 sources) Normal ; Translations: [Encounter for supervision of other normal , unspecified trimester] Onset: 09-27-2006 Resolved: 08-26-2008 08-26-2008 Episodic Other upper respiratory disease (3 sources) Pain in throat; Translations: [Pain in throat] Onset: 05-13-2015 Resolved: 06-10-2015 06-10-2015 Episodic Other upper respiratory infections (8 sources) Acute maxillary sinusitis; Translations: [Acute maxillary sinusitis, unspecified] Onset: 08-28-2010 Resolved: 09-11-2010 09-11-2010 Episodic Ovarian cyst (20 sources) Cyst of left ovary; Translations: [Unspecified ovarian cyst, left side] Onset: 02-08-2023 Episodic Residual codes; unclassified (19 sources) Family history of diabetes mellitus; Translations: [...] Results Test Name Value Interpretation Reference Range Facility CT PELVIS W IVCONon 07-13-[address] PELVIS W IVCON * * *Final Report* * * DATE OF EXAM: Jul 13 2024 11:44AM [facility] 0555 - CT PELVIS W IVCON / PROCEDURE REASON: multiple diagnoses * * * * Physician Interpretation * * * * EXAMINATION: CT PELVIS WITH IV CONTRAST HISTORY: Elevated AFP. Abnormal tumor markers. History of hysterectomy. TECHNIQUE: CT of the pelvis was performed using standard technique, scanning from just above the iliac crests to the symphysis pubis. M: CTAP_3 Contrast: IV: 100 ml of Omnipaque 350 Oral: 10 ml of Omni 240 10-25ml diluted with water CT Radiation dose: Integrated Dose-length product (DLP) for this visit = 290 mGy*cm. CT Dose Reduction Employed: Automated exposure control(AEC) and iterative recon COMPARISON: Pelvic ultrasound 02/03/2023 RESULT: Postoperative changes from hysterectomy and bilateral salpingo-oophorectom y. No new mass. Trace fluid anterior to the bladder. Visualized loops of bowel are nondistended. No pelvic lymphadenopathy. IMPRESSION: No mass is visualized. There is trace fluid anterior to the bladder, possibly related to prior surgery. Screen Writer: DARREN Transcribe Date/Time: Jul 19 2024 9:00A Dictated by : ROGELIO CONLEY MD This examination was interpreted and the report reviewed and electronically signed by: ROGELIO CONLEY MD on Jul 19 2024 9:07AM EST [id number] CN Normal [facility] CREATININE BLDon 07-12-2024 Creatinine [Mass/Vol] 0.93 mg/dL Normal 0.58-0.96 [facility] Comment on above: Order Comment: Speci men Type: BLOOD SPECIMEN Ordering Facility: [facility] Address: [address] [place] [address] Performed By: #### C RET1 #### [facility] [id number] [address] [place] [address] STATES OF [facility] Creatinine and Glomerular filtration rate.predicted panel (S/P/Bld) 77 mL/min/1.73m??? Normal >=60 [facility] Comment on above: Order Comment: Speci men Type: BLOOD SPECIMEN Ordering Facility: [facility] Address: [address] [place] [address] Result Comment: Pricilla mated Glomerular Filtration Rate (eGFR) is calculated using the 2020 CKD-EPI creatinine equation. This equation utilizes serum creatinine, sex, and age as parameters. The creatinine assay has traceable calibration to isotope dilution-mass spectrometry. Refer to KDIGO guidelines for clinical interpretation. In patients with unstable renal function, e.g. those with acute kidney injury, the eGFR may not accurately reflect actual GFR. Performed By: #### C RET1 #### [facility] [id number] [address] [place] [address] STATES OF [place] CNPAdrianna 06-28-2024 CNPN Telephone (OBGYWM) ROMAIN MENDOZA ([id number]) 1975 F NFR Date Time Provider Department 06/28/24 [facility] OBGYWM During your visit today, we recorded the following information about you: Bharti Howard RN 06/28/2024 3:39 PM Signed Patient recently had workup with Dr. An and was told her tumor marker AFP was elevated and to follow up with DIRECTOR DATA ARCHITECTURE provider. Patient questioning if she does need to follow up here because she had hysterectomy and both ovaries have been removed. Lab result from [facility] to to review. Please advise. CYNDI Anthony Rebecca L, MD 06/28/2024 4:20 PM Signed I really don't think an ovarian tumor is the cause of this being elevated. Has she had a CT of the pelvis? If not I would be happy to order one but since both ovaries are removed and were benign I doubt chimney repairer cause. If has had pelvic/abd ct in last few months no need to repeat. MD Basil Koroma Tara, RN 06/28/2024 4:29 PM Signed Pt notified and voiced understanding. Pt states she has not recently had a CT of her pelvis done and is agreeable to having this completed. Would like to complete in this [facility] building rather than going elsewhere. CYNDI Song Rebecca L, MD 07/02/2024 1:00 PM Signed Spoke with patient about abnormal AFP. She had CT of liver and MRI and then was told to follow up here for possible ovarian etiology. We reviewed both ovaries removed and benign in past. Chance of ovarian remnant being the cause for this is small but will get CT of pelvis only since had upper abdomen eval previously. Order in. Please schedule her. Make sure w/ radiology this is correct order to look at ovary area for remnant. Gudelia Mi MD Allergies As of Date: 06/28/2024 Noted Allergy Reaction CITALOPRAM 01/22/2013 8 - GI Upset Comments: Nausea and vomiting CODEINE 02/24/2013 14 - Other: See Comments Comments: Dizziness- (all forms/doses)-cannot take cough syrup with codeine LITHIUM 12/10/2015 8 - GI Upset Comments: stomach pain NSAIDS (NON-STEROIDAL ANTI-INFLAM*01/14/20 23 14 - Other: See Comments Comments: Due to bariatric surgery Date Reviewed: 12/06/2023 Reviewed by: Hoa Gallardo MA - Fully Assessed Reason for Visit: Patient Question [1477] Primary Visit Diagnosis:Elevated AFP [R77.2] Other Visit Diagnosis:Abnormal tumor markers [R97.8] Order(s):CT PELVIS W IVCON [[id number]] Order #: [id number] FUTURE iv contrast (will be provided with radiology test)CT PELVIS W -Inject, intravenously, once for 1 dose.No IV access, insert saline lock prior to the beginning of sedation, infusion, injection of imaging exam. Discontinue saline lock post exam. If Pt. has a central line or IVAD, may access for administration according to line specific nursing protocol. Once exam is complete flush line and de-access according to line specific nursing protocol in the CT contrast administration guidelines link.Disp: 1 EachRfl: 0 enteric contrast (will be provided with radiology test)For CT PELVIS W IVCON order Administer, As Directed One Time Only, via Oral, Rectal, both Oral and Rectal, Enteric Tube, Stoma or Indwelling Catheter, Enteric Contrast as designated per enteric contrast guidelinesDisp: 1 EachRfl: 0 CREATININE BLD [SQCRET] Order #: [id number] FUTURE Prescriptions as of 07/02/2024 - iv contrast (will be provided with radiology test) CT PELVIS W -Inject, intravenously, once for 1 dose.No IV access, insert saline lock prior to the beginning of sedation, infusion, injection of imaging exam. Discontinue saline lock post exam. If Pt. has a central line or IVAD, may access for administration according to line specific nursing protocol. Once exam is complete flush line and de-access according to line specific nursing protocol in the CT contrast administration guidelines link. - enteric contrast (will be provided with radiology test) For CT PELVIS W IVCON order Administer, As Directed One Time Only, via Oral, Rectal, both Oral and Rectal, Enteric Tube, Stoma or Indwelling Catheter, Enteric Contrast as designated per enteric contrast guidelines - estradiol (CLIMARA) 0.075 mg/24 hr Apply 1 Patch as directed one time a week. to lower abd or buttocks. - rosuvastatin (CRESTOR) 40 mg tablet - allopurinol (ZYLOPRIM) 100 mg tablet - TIROSINT 175 mcg cap - MULTIVITAMIN ORAL Take by mouth. Flinstone chewables - CALCIUM ORAL Take by mouth. - cyanocobalamin/folic acid (VITAMIN S99-XZGMO ACID) 1,000-400 mcg lozg Dissolve under the tongue. - ALPRAZolam (XANAX) 0.25 mg tablet Take 1 tablet by mouth once daily as needed for Anxiety. - albuterol HFA (VENTOLIN HFA) 90 mcg/actuation inhaler Inhale 2 Puffs as instructed every 4 hours as needed for Wheezing/Shortness of Breath. Meds Comments as of 05/13/2015: Patient has not been taking Omeprazole. Problem List As Of Date 06/28 (more content not included)... Normal [facility] CNOVon 12-06-2023 CNOV Office Visit (OBGYWM) ROMAIN MENDOZA ([id number]) 1975 F NFR Date Time Provider Department 12/06/23 11:10 AM [facility] OBGYWM During your visit today, we recorded the following information about you: Blood pressure Weight 102/58 62.6 kg Gudelia Mi MD 12/06/2023 11:21 AM Signed Romain Dick Reji is a 48 year old female who presents for problem visit for c/o hot flashes and some other events where she lightheaded, blurry vision and diaophoretic and feels like she is going to pass out. Takes a sugar tablet and 10-15 min able to take a nap and then feels better. Happens about once a week. Feels that is different than the hot flashes and night sweats. Has night sweat about once a month. Is on climara and feels that has helped for the most part. OB History T5 L5 SAB0 IAB0 Ectopic0 Multiple0 Live Births5 Chuck Tender History LMP: 03/12/2011, Hysterectomy Age at Menarche: Age at First : Age at Menopause: Chuck Tender History Comments: Sexual Activity: Yes; Male; hysterectomy Contraception: Surgical PAST MEDICAL HISTORY Diagnosis Date Asthma 03/2016 + [facility] at [facility]. Depressive disorder, not elsewhere classified [...] Date APPENDECTOMY 01/2019 DELIVERY ONLY 2006, 2006, 2008 , low cervical X3 GASTRIC BYPASS HX 09/20/2022 Reun Y IUD INSERTION (DIRECTOR DATA ARCHITECTURE DEPT)_*[place] 07/17/2007 Mirena IUD REMOVAL (DIRECTOR DATA ARCHITECTURE DEPT)_*FL 10/23/2007 Mirena L'SCOPE DX W/WO BRUSHINGS/WASHINGS [...] use: No Current Outpatient Medications Medication Sig estradiol (CLIMARA) 0.075 mg/24 hr Apply 1 Patch as directed one time a week. to lower abd or buttocks. rosuvastatin (CRESTOR) 40 mg tablet allopurinol (ZYLOPRIM) 100 mg tablet TIROSINT 175 mcg cap MULTIVITAMIN ORAL Take by mouth. Flinstone chewables CALCIUM ORAL Take by mouth. cyanocobalamin/folic acid (VITAMIN J48-QWSBK ACID) 1,000-400 mcg lozg Dissolve under the tongue. ALPRAZolam (XANAX) 0.25 mg tablet Take 1 tablet by mouth once daily as needed for Anxiety. albuterol HFA (VENTOLIN HFA) 90 mcg/actuation inhaler Inhale 2 Puffs as instructed every 4 hours as needed for Wheezing/Shortness of Breath. oxyCODONE IR (ROXICODONE) 5 mg immediate release tablet Take 1 tablet by mouth every 6 hours as needed for pain for up to 12 doses. (Patient not taking: Reported on 12/06/2023) LISINOPRIL ORAL Take by mouth. (Patient not taking: Reported on 12/06/2023) PARoxetine (PAXIL) 40 mg tablet (Patient not taking: Reported on 12/06/2023) No current facility-administere d medications for this visit. Allergies As of Date: 12/06/2023 Allergen Noted Reaction CITALOPRAM 01/22/2013 GI Upset CODEINE 02/24/2013 Other: See Comments LITHIUM 12/10/2015 GI Upset NSAIDS (NON-STEROIDAL ANTI-INFLAM*01/14/20 23 Other: See Comments Fully Assessed 12/06/2023 Allergies and current medication updated:Yes EXAM: BP 102/58 Wt 138 lb (62.6kg) LMP 03/12/2011 GENERAL: pleasant, female in no apparent distress HEENT: Normocephalic, atraumatic, mucus membranes moist, and no lesions ASSESSMENT AND PLAN: Had mammogram at [facility] last week, up to date w/ this sugical menopause- d/w her recommend cont. estrogen patch for now, she agrees. Will continue current dose d/w her colon ca screening, has trouble w/ digestion since bariatric surgery and does not think she can tolerate the prep for a colonoscopy. Pelvic pain improved since surgery Gudelia Mi MD Medical Decision Making: Problems: Low: Stable chronic illness Data: Unique test(s) ordered: 1 Risk: Low: Low risk from testing/treatment Medical Decision Making Level: 3 - Low Referring Provider: SELF [200] Allergies As of Date: 12/06/2023 Noted Allergy Reaction (more content not included)... Normal [facility] ANES POSTPROC EVALon 023 ANES POSTPROC EVAL HNO ID: [id number] Author: Tori Aleman MD Service: Anesthesiology Author Type: Anesthesiologist Type: Anesthesia Postprocedure Evaluation Filed: 05/06/2023 4:20 PM Note Text: POST ANESTHESIA EVALUATION NOTE : 1975 Procedure Summary Date: 05/06/23 Room / Location: [facility] OR / [facility] OR Anesthesia Start: 1219 Anesthesia Stop: 1514 Procedure: LAPAROSCOPY WITH OOPHORECTOMY AND SALPINGECTOMY (Bilateral) Diagnosis: Pelvic pain in female (Pelvic pain in female [R10.2]) Surgeons: Sylvia Ayala DO Responsible Provider: Tori Aleman MD Anesthesia Type: general ASA Status: 3 Anesthesia Type: general Airway Type: ETT Last Vitals Vitals Value Taken Time BP 128/69 05/06/23 1600 Temp 36 ?C (96.8 ?F) 05/06/23 1515 Pulse 74 05/06/23 1601 Resp 13 05/06/23 1600 SpO2 100 % 05/06/23 1601 Vitals shown include unvalidated device data. Post Anesthesia Patient Status Patient Evaluation: PACU. PACU/ICU Patient Condition: stable. Anticipated Disposition: phase 2 then home. Neurological Status: aware and responsive. Pulmonary Status: breathing comfortably on room air Airway Control: returned to baseline unsupported. Cardiovascular Status: stable. Pain Management: clinically adequate - multimodal analgesia pain management approach Postoperative Hydration: acceptable. Intraoperative Events: no significant anesthesia events Post Operative Nausea/Vomiting Status: no significant post operative nausea or vomiting Recommendation: continue current plan of care. Anesthesia Observations No Documentation SIGNATURE: Tori Aleman MD PATIENT NAME: Romain Mendoza DATE: May 06, 2023 TIME: 4:20 PM CSN: [id number] [facility] ANES PRE-OPon 05-06-2023 ANES PRE-OP HNO ID: [id number] Author: Tori Aleman MD Service: Anesthesiology Author Type: Anesthesiologist Type: Anesthesia Preprocedure Evaluation Filed: 05/06/2023 11:47 AM Note Text: ANESTHESIOLOGY DAY OF SURGERY NOTE : 1975 Procedure Information Date/Time: 05/06/23 1248 Procedure: LAPAROSCOPY WITH OOPHORECTOMY AND SALPINGECTOMY (Bilateral) Location: [facility] OR04 / [facility] Surgeons: Sylvia Ayala, Estimated body mass index is 27.76 kg/m? as calculated from the following: Height as of 05/03/23: 151.8 cm (4' 11.76 ). Weight as of 05/03/23: 64 kg (141 lb). Most recent hematocrit and potassium results: Hematocrit 37.9 05/03/2023 Potassium 3.8 05/03/2023 Relevant Problems ANESTHESIA (+) BALBINA (obstructive sleep apnea) CARDIO (+) Essential hypertension ENDO (+) Hypothyroid -RENAL (+) CKD (chronic kidney disease) PULMONARY (+) Asthma (+) BALBINA (obstructive sleep apnea) I - PHYSICAL EVALUATION AIRWAY Patient intubated: No. Tracheostomy tube not present Mallampati: II. TM distance: >3 FB. Neck ROM: full ROM without neurological symptoms. Mouth opening: adequate. Short neck: no. Thick neck: no DENTAL Dentures, upper: complete. Additional exam findings: yes. CARDIOVASCULAR Rhythm: regular PULMONARY Breath sounds clear to auscultation. II - ANESTHESIA PLAN ASA Score: 3 Anesthetic Plan: general Airway type: ETT The patient is not a current smoker. NPO Status: adequate Beta Lorelei Monitoring Plan Monitoring plan: Standard ASA. Post Procedure Analgesic Plan Postoperative analgesic plan: parenteral or oral opioids and multimodal analgesia. Informed Consent Anesthetic risks, benefits, alternatives, personnel and consent discussed: yes. Patient / Responsible Constitution Party agrees to proceed: yes Patient / Surrogate agrees to blood products: yes DNR status not reviewed with patient and/or family prior to surgery. Significant changes in the patient condition since the History and Physical, not otherwise documented in primary service progress note: no. Potential Anesthesia issues that may suggest increased risk of complications or contraindication to planned procedure: none. Vitals Value Taken Time BP 146/75 05/06/23 1135 Pulse 68 05/06/23 1135 Resp 16 05/06/23 1135 Temp 36.5 ?C (97.7 ?F) 05/06/23 1135 SpO2 100 % 05/06/23 1135 Facility-Administere d Medications as of 05/06/2023 Medication Dose Route Frequency - lidocaine (PF) 10 mg/mL (1 %) 1-2 mg injection (XYLOCAINE) 0.1-0.2 mL INTRADERMAL PRN - lactated ringers iv infusion 5-30 mL/hr INTRAVENOUS CONTINUOUS - NaCl 0.9% iv flush bag 20 mL INTRAVENOUS PRN - acetaminophen 1,000 mg tab(s) (TYLENOL) 1,000 mg ORAL Pre-Op Once - promethazine 12.5 mg tab(s) (PHENERGAN) 12.5 mg ORAL Pre-Op Once Outpatient Medications as of 05/06/2023 Medication Sig - rosuvastatin (CRESTOR) 40 mg tablet - allopurinol (ZYLOPRIM) 100 mg tablet - PARoxetine (PAXIL) 40 mg tablet - TIROSINT 175 mcg cap - MULTIVITAMIN ORAL Take by mouth. Flinstone chewables - CALCIUM ORAL Take by mouth. - cyanocobalamin/folic acid (VITAMIN I10-OFORR ACID) 1,000-400 mcg lozg Dissolve under the tongue. - ALPRAZolam (XANAX) 0.25 mg tablet Take 1 tablet by mouth once daily as needed for Anxiety. - albuterol HFA (VENTOLIN HFA) 90 mcg/actuation inhaler Inhale 2 Puffs as instructed every 4 hours as needed for Wheezing/Shortness of Breath. I have interviewed and examined the patient. I have reviewed the medical record and/or the pre-anesthesia evaluation, pertinent labs, and test results. This contains updated information obtained within 48 hours of Surgery/Procedure. SIGNATURE: Tori Aleman MD PATIENT NAME: Romain Mendoza DATE: May 06, 2023 TIME: 11:46 AM CSN: [id number] [facility] OPERATIVE NOon 05-06-2023 OPERATIVE NO HNO ID: [id number] Author: Sylvia Ayala DO Service: Gynecology Author Type: Physician Type: Operative Report Filed: 05/09/2023 7:34 AM Note Text: DIRECTOR DATA ARCHITECTURE OPERATIVE/PROCEDURE REPORT LOG ID: [id number] Surgery/Procedure Date: 05/06/2023 Incision/Procedure Start Time: 12:48 PM Incision Close/Procedure End Time: 3:02 PM Surgeon(s)/Procedura list(s) and Gas Station Operator(s): Surgeon(s) and Role: * Sylvia Ayala DO - Primary * Nutaitis, Nia, DO - Resident - Assisting Physician Gas Station Operator: Reena Cochran PA-C Informed Consent: Informed Consent obtained and on the chart Procedure: Laparoscopic bilateral salpingo-oophorectom y, lysis of adhesions Pre-Op/Pre-Procedure Diagnosis: Ovarian cyst and Pelvic pain Post-Op/Post-Procedu re Diagnosis: Same as pre-op diagnosis Antibiotic: None Procedure Details: Patient was taken to the operating room where the sign-in and time out were completed. General anesthesia was induced and found to be adequate. Once anesthesia was found to be adequate, her arms were then tucked to the side, she was placed in dorsal lithotomy position her legs were placed in Yellowfin stirrups with careful attention not to hyperflex or hyperextend the knees or hips. SCDs were placed and turned on for DVT prophylaxis. Exam under anesthesia was performed. Patient was prepped and draped in the usual fashion. A Vazquez catheter was placed in the urinary bladder under sterile condition. A ring forceps with a 4x4 Raytec was placed in the vagina to assist with vaginal manipulation since her cervix and uterus were surgically absent. This was left in the vagina throughout the procedure. Attention was turned to the abdomen with clean sterile gloves. A 10 mm intraumbilical incision was made with an 11 blade scalpel. The underlying tissue was sequentially grasped with carola clamps, elevated and entered sharply using a scalpel. The incision was carried down to the level of fascia. The fascia incision was extended. The peritoneal layer was entered bluntly. A Rogelio trocar was then placed through the incision and the abdomen was insufflated to a maximum filling pressure of 15 mmHg. The laparoscope was then placed through the trocar and confirmed entry into the peritoneum without apparent injury, to underlying structures. The abdomen was insufflated with CO2 gas.The lower abdominal wall was transilluminated and avascular sites were selected in the Bilateral lower abdominal quadrant. Under direct visualization the following trochars were placed RLQ 5 mm and two LLQ 5 mm.Through these sites a 5 mm trochar and sleeve were inserted under direct visualization. The patient was placed in the Trendelenburg position and a survey of the abdomen was performed with the below intraoperative findings noted. Findings: Uterus: surgically absent Right Ovary: Normal Left Ovary: enlarged, multicystic, clear cyst drainage, trapped within dense omental, bowel, and peritoneal adhesions Right Fallopian Tube: Normal appearing, densely adherent to right ovary Left Fallopian Tube: difficult to appreciate among dense adhesions of left ovary Posterior cul-de-sac: initially obliterated from adhesions Appendix: Not seen Liver: Seen: normal Other: dense omental and bowel adhesions to anterior abdominal wall infraumbilical Additional techniques Include: Upon abdominal entry a survey of the abdomen was done which showed no injury from abdominal entry. Significant adhesions were noted including bowel adhesions to the anterior abdominal wall. Attention was turned to the left pelvic sidewall. The monopolar spatula and the ligasure were used for electrocautery throughout the case. Colonic adhesions to the left side wall were taken down with the monopolar spatula. Next attention was turned to the bowel adhesions to the anterior abdominal wall infraumbilical. This was obstructive and thus attention turned to carefully restoring anatomy. Both blunt and sharp dissection was used to drop the adhesions from the anterior abdominal wall. Attention was then turned back to the left ovary. The left ovary and multicystic components was visualized near the left pelvic prim. Blunt dissection was used to remove scar tissue from the ovarian tissue and aid in plane identification. The peritoneum was noted to adherent and a peritoneal inclusion cyst drained clear fluid dissection. The left ureter was identified. The fallopian tube was densely adherent to the ovary and difficult to identify. The left IP ligament was skeletonized. The ligasure was used to cauterize the IP ligament several times and then transected. The specimen was placed in the right upper quadrant for specimen retrieval at the end of the case. Attention was turned to the right pelvic sidewall. The right pelvic sidewall was opened by making an incision lateral to the IP ligament using the monopolar. The right ureter was identified. The right IP ligame (more content not included)... Normal [facility] SURGICAL PATHOLOGYon 023 CASE REPORT Normal [facility] Comment on above: Order Comment: Speci men Type: TISSUE SPECIMEN Ordering Facility: [facility] Address: [address] [place] [id number] Result Comment: Surg [facility] Pathology Report Case: [id number] Authorizing Provider: Sylvia Ayala DO Collected: 05/06/2023 02:16 PM Ordering Location: [facility] Surgery Received: 05/06/2023 03:49 PM Pathologist: Dexter Alexander MD Specimen: FALLOPIAN TUBE AND OVARY BILATERAL Performed By: #### S #### [facility] CLIA [id number] [place] CLINICAL HISTORY Normal [facility] Comment on above: Order Comment: Speci men Type: TISSUE SPECIMEN Ordering Facility: [facility] Address: [address] [place] [address] Result Comment: Pre- op diagnosis: Pelvic pain in female [R10.2] Performed By: #### S #### [facility] CLIA [id number] [address] [place] [address] OF [place] FINAL DIAGNOSIS Normal [facility] spital Comment on above: Order Comment: Speci men Type: TISSUE SPECIMEN Ordering Facility: [facility] Address: [address] [place] [address] Result Comment: A. O varies and fallopian tubes, bilateral salpingo-oophorectomy: ---Benign ovaries with endosalpingiosis, follicular cysts, and dense serosal adhesions. ---Benign fallopian tubes with paratubal cysts. Performed By: #### S #### [facility] CLIA [id number] [address] [place] [address] FINAL PERFORMING LAB Normal [facility] Comment on above: Order Comment: Speci men Type: TISSUE SPECIMEN Ordering Facility: [facility] Address: [address] [place] [address] Result Comment: Diag nostic interpretation performed at [facility], [address] [place] [address] CLIA# [id number] Laser Set Up Operator: Idris Goode M.D. Performed By: #### S #### [facility] CLIA [id number] [address] [place] [address] OF [place] GROSS DESCRIPTION Normal [facility] Comment on above: Order Comment: Speci men Type: TISSUE SPECIMEN Ordering Facility: [facility] Address: [address], [place] [address] Result Comment: A. F ALLOPIAN TUBE AND OVARY BILATERAL Received in formalin labeled fallopian tube and ovary bilateral is one undesignated ovary with attached luminal segment of tissue with a marked cauterized end resembling a possible fimbriated fallopian tube, one free floating undesignated ovary, and one free floating fimbriated fallopian tube. The ovary with attached luminal tissue (ovary #1) measures 4.5 x 3.3 x 2.9 cm overall. The ovary itself measures 4.0 x 3.5 x 2.0 cm and weighs 12.57 g. The external surface is santiago-durand, roughened and previously disrupted with dense adhesions. No surface papillations are grossly identified. The cut surface is cystic and solid. The solid areas account for approximately 50% of the cut surface. The solid component measures 3.9 x 2.2 x 1.8 cm. Solid areas are durand-white, hemorrhagic, and firm. Areas of necrosis are calcification are not grossly appreciated. The cysts range from 0.4 to 2.5 cm in greatest dimension and the contents cannot be noted due to previous disruption. The cysts have a smooth lining with papillations covering approximately 2.0 x 0.8 x 0.7 cm. A segment of luminal tissue resembling a possible fallopian tube with a marked cauterized end resembling a possible fimbriated end measuring 5.0 cm in length by 0.7 cm in diameter. The possible serosal aspect is santiago-durand, ragged and roughened with cautery. The possible fimbriated end is red-brown, with marked cauterization. The lumen is grossly unremarkable. The free-floating ovary and free-floating fimbriated fallopian tube (ovary #2) measures 5.0 x 5.0 x 2.0 cm in aggregate. The ovary itself measures 4.0 x 3.0 x 2.0 cm and weighs 9.02 g. The external surface is santiago-durand, wrinkled with a protruding cystic structure measuring 0.8 x 0.7 cm. No surface papillations are grossly identified. The cut surfaces are durand-white to durand-yellow and lobulated with a hemorrhagic corpus luteum. There are multiple cystic structures identified ranging from 0.3 cm to 0.7 cm in greatest diameter and contain durand-yellow watery material. No papillations are grossly identified. The detached fimbriated fallopian tube measures 4.5 cm in length by 0.9 cm in diameter. The serosal surface is durnad-pink, roughened. The fimbriated end has a normal villous appearance. No paratubal cysts are grossly identified. The lumen is unremarkable. Automatic Dry Starch Operator sections are submitted as follows: A1 ovary #1 solid component of mass A2 ovary #1 solid component of mass to include areas of hemorrhage A3 ovary #1 area of cyst with papillations, entirely submitted A4 ovary #1 solid and cystic component of mass A5 attached luminal tissue with entire possible fimbriated end, bisected, and central luminal cross-sections A6 ovary #2 to include hemorrhagic corpus luteum and cystic structures A7 additional sections of ovary #2 to include additional cystic areas with background ovary A8 free-floating fimbriated fallopian tube with entire fimbriated end, bisected, with central luminal cross-sections [place] [address] CLIA# [id number] MSL/MLG 05/09/23 1:19 PM Performed By: #### S #### [facility] CLIA [id number] [address] [place] [address] [place] CBC W Auto Differential pane l (Bld)on 05-03-2023 Basophils (Bld) [#/Vol] 0.06 10*3/uL Normal <0.[address] [facility] Comment on above: Order Comment: Speci men Type: BLOOD SPECIMEN Ordering Facility: [facility] Address: [address] [place] [address] Performed By: #### 5 7021-8 #### [facility] CLIA [id number] [address] [place] [address] [place] Basophils/100 WBC (Bld) 0.9 % Normal [facility] Comment on above: Order Comment: Speci men Type: BLOOD SPECIMEN Ordering Facility: [facility] Address: [address] [place] [address] Performed By: #### 5 7021-8 #### [facility] CLIA [id number] [address] [place] [address] [place] Differential cell count method Nom (Bld) Auto Normal [facility] Comment on above: Order Comment: Speci men Type: BLOOD SPECIMEN Ordering Facility: [facility] Address: [address] [place] [address] Performed By: #### 5 7021-8 #### [facility] CLIA [id number] [address] [place] [address] [place] Eosinophils (Bld) [#/Vol] 0.19 10*3/uL Normal <0.[address] [facility] Comment on above: Order Comment: Speci men Type: BLOOD SPECIMEN Ordering Facility: [facility] Address: [address] [place] [address] Performed By: #### 5 7021-8 #### [facility] CLIA [id number] [address] [place] Eosinophils/100 WBC (Bld) 2.7 % Normal [facility] Comment on above: Order Comment: Speci men Type: BLOOD SPECIMEN Ordering Facility: [facility] Address: [address] [place] [address] Performed By: #### 5 7021-8 #### [facility] CLIA [id number] [address] [place] Erythrocyte distribution width (RBC) [Ratio] 13.7 % Normal 11.5-15.[address] [facility] Comment on above: Order Comment: Speci men Type: BLOOD SPECIMEN Ordering Facility: [facility] Address: [address] [place] [address] Performed By: #### 5 7021-8 #### [facility] CLIA [id number] [address] [place] Hematocrit (Bld) [Volume fraction] 37.9 % Normal 36.0-46.0 [facility] Comment on above: Order Comment: Speci men Type: BLOOD SPECIMEN Ordering Facility: [facility] Address: [address] [place] [address] Performed By: #### 5 7021-8 #### [facility] CLIA [id number] [address] [place] [address] [facility] OF [place] Hemoglobin (Bld) [Mass/Vol] 12.2 g/dL Normal 11.5-15.[address] [facility] Comment on above: Order Comment: Speci men Type: BLOOD SPECIMEN Ordering Facility: [facility] Address: [address] [place] [address] Performed By: #### 5 7021-8 #### [facility] CLIA [id number] [address] [place] Immature granulocytes (Bld) [#/Vol] 10*3/uL Normal <0.[address] [facility] Comment on above: Order Comment: Speci men Type: BLOOD SPECIMEN Ordering Facility: [facility] Address: [address] [place] [address] Performed By: #### 5 7021-8 #### [facility] CLIA [id number] [address] Immature granulocytes/100 WBC (Bld) 0.1 % Normal [facility] Comment on above: Order Comment: Speci men Type: BLOOD SPECIMEN Ordering Facility: [facility] Address: [address] [place] [address] Performed By: #### 5 7021-8 #### [facility] CLIA [id number] [address] [place] Lymphocytes (Bld) [#/Vol] 2.58 10*3/uL Normal 1.00-4.[address] [facility] Comment on above: Order Comment: Speci men Type: BLOOD SPECIMEN Ordering Facility: [facility] Address: [address] [place] [address] Performed By: #### 5 7021-8 #### [facility] CLIA [id number] [address] Lymphocytes/100 WBC (Bld) 36.6 % Normal [facility] Comment on above: Order Comment: Speci men Type: BLOOD SPECIMEN Ordering Facility: [facility] Address: [address] [place] [address] Performed By: #### 5 7021-8 #### [facility] CLIA [id number] [address] [place] MCH (RBC) [Entitic mass] 30.1 pg Normal 26.0-34.[address] [facility] Comment on above: Order Comment: Speci men Type: BLOOD SPECIMEN Ordering Facility: [facility] Address: [address] [place] [address] Performed By: #### 5 7021-8 #### [facility] CLIA [id number] [address] [place] [address] [place] MCHC (RBC) [Mass/Vol] 32.2 g/dL Normal 30.5-36.[address] [facility] Comment on above: Order Comment: Speci men Type: BLOOD SPECIMEN Ordering Facility: [facility] Address: [address] [place] [address] Performed By: #### 5 7021-8 #### [facility] CLIA [id number] [address] MCV (RBC) [Entitic vol] 93.6 fL Normal 80.0-100.[address] [facility] Comment on above: Order Comment: Speci men Type: BLOOD SPECIMEN Ordering Facility: [facility] Address: [address] [place] [address] Performed By: #### 5 7021-8 #### [facility] CLIA [id number] [address] Monocytes (Bld) [#/Vol] 0.48 10*3/uL Normal <0.[address] [facility] Comment on above: Order Comment: Speci men Type: BLOOD SPECIMEN Ordering Facility: [facility] Address: [address] [place] [address] Performed By: #### 5 7021-8 #### [facility] CLIA [id number] [address] Monocytes/100 WBC (Bld) 6.8 % Normal [facility] Comment on above: Order Comment: Speci men Type: BLOOD SPECIMEN Ordering Facility: [facility] Address: [address] [place] [address] Performed By: #### 5 7021-8 #### [facility] CLIA [id number] [address] [place] [address] [place] Neutrophils (Bld) [#/Vol] 3.73 10*3/uL Normal 1.45-7.[address] [facility] Comment on above: Order Comment: Speci men Type: BLOOD SPECIMEN Ordering Facility: [facility] Address: [address] [place] [address] Performed By: #### 5 7021-8 #### [facility] CLIA [id number] [address] Neutrophils/100 WBC (Bld) 52.9 % Normal [facility] Comment on above: Order Comment: Speci men Type: BLOOD SPECIMEN Ordering Facility: [facility] Address: [address] [place] [address] Performed By: #### 5 7021-8 #### [facility] CLIA [id number] [address] [place] Nucleated RBC (Bld) [#/Vol] 10*3/uL Normal <0.[address] [facility] Comment on above: Order Comment: Speci men Type: BLOOD SPECIMEN Ordering Facility: [facility] Address: [address] [place] [address] Performed By: #### 5 7021-8 #### [facility] CLIA [id number] [address] Nucleated RBC/100 WBC (Bld) [Ratio] 0.0 /100 WBC Normal [facility] Comment on above: Order Comment: Speci men Type: BLOOD SPECIMEN Ordering Facility: [facility] Address: [address] Performed By: #### 5 7021-8 #### [facility] CLIA [id number] [address] [place] Platelet mean volume (Bld) [Entitic vol] 11.6 fL Normal 9.0-12.7 [facility] Comment on above: Order Comment: Speci men Type: BLOOD SPECIMEN Ordering Facility: [facility] Address: [address] [place] [address] Performed By: #### 5 7021-8 #### [facility] CLIA [id number] [address] [place] Platelets (Bld) [#/Vol] 278 10*3/uL Normal 150-[address] [facility] Comment on above: Order Comment: Speci men Type: BLOOD SPECIMEN Ordering Facility: [facility] Address: [address] [place] [address] Performed By: #### 5 7021-8 #### [facility] CLIA [id number] [address] [place] [address] [place] RBC (Bld) [#/Vol] 4.05 10*6/uL Normal 3.90-5.20 [facility] Comment on above: Order Comment: Speci men Type: BLOOD SPECIMEN Ordering Facility: [facility] Address: [address] [place] [address] Performed By: #### 5 7021-8 #### [facility] CLIA [id number] [address] STATES OF [facility] WBC (Bld) [#/Vol] 7.05 10*3/uL Normal 3.70-11.00 [facility] Comment on above: Order Comment: Speci men Type: BLOOD SPECIMEN Ordering Facility: [facility] Address: [address] [place] [address] Performed By: #### 5 7021-8 #### [facility] CLIA [id number] [address] OF [facility] Comprehensive metabolic 2000 panelon 05-03-2023 Albumin [Mass/Vol] 3.9 g/dL Normal 3.9-4.[address] [facility] Comment on above: Order Comment: Speci men Type: BLOOD SPECIMEN Ordering Facility: [facility] Address: [address] [place] [address] Performed By: #### 2 4323-8 #### [facility] CLIA [id number] [address] ALP [Catalytic activity/Vol] 88 U/L Normal 34-[address] [facility] Comment on above: Order Comment: Speci men Type: BLOOD SPECIMEN Ordering Facility: [facility] Address: [address] [place] [address] Performed By: #### 2 4323-8 #### [facility] CLIA [id number] [address] ALT [Catalytic activity/Vol] 22 U/L Normal 7-[address] [facility] Comment on above: Order Comment: Speci men Type: BLOOD SPECIMEN Ordering Facility: [facility] Address: [address] [place] [address] Performed By: #### 2 4323-8 #### [facility] CLIA [id number] [address] [place] [address] [place] Anion gap [Moles/Vol] 10 mmol/L Normal 9-[address] [facility] Comment on above: Order Comment: Speci men Type: BLOOD SPECIMEN Ordering Facility: [facility] Address: [address] [place] [address] Performed By: #### 2 4323-8 #### [facility] CLIA [id number] [address] AST [Catalytic activity/Vol] 29 U/L Normal 13-[address] [facility] Comment on above: Order Comment: Speci men Type: BLOOD SPECIMEN Ordering Facility: [facility] Address: [address] [place] [address] Performed By: #### 2 4323-8 #### [facility] CLIA [id number] [address] [place] Bilirubin [Mass/Vol] 0.7 mg/dL Normal 0.2-1.3 [facility] Comment on above: Order Comment: Speci men Type: BLOOD SPECIMEN Ordering Facility: [facility] Address: [address] [place] [address] Performed By: #### 2 4323-8 #### [facility] CLIA [id number] [address] OF [facility] Calcium [Mass/Vol] 8.8 mg/dL Normal 8.5-10.[address] [facility] Comment on above: Order Comment: Speci men Type: BLOOD SPECIMEN Ordering Facility: [facility] Address: [address] [place] [address] Performed By: #### 2 4323-8 #### [facility] CLIA [id number] [address] [place] Chloride [Moles/Vol] 107 mmol/L High 97-105 [facility] Comment on above: Order Comment: Speci men Type: BLOOD SPECIMEN Ordering Facility: [facility] Address: [address] [place] [address] Performed By: #### 2 4323-8 #### [facility] CLIA [id number] [address] [place] CO2 [Moles/Vol] 27 mmol/L Normal 22-30 [facility]ital Comment on above: Order Comment: Speci men Type: BLOOD SPECIMEN Ordering Facility: [facility] Address: [address] [place] [address] Performed By: #### 2 4323-8 #### [facility] CLIA [id number] [address] OF [facility] Creatinine [Mass/Vol] 0.78 mg/dL Normal 0.58-0.[address] [facility] Comment on above: Order Comment: Speci men Type: BLOOD SPECIMEN Ordering Facility: [facility] Address: [address] [place] [address] Performed By: #### 2 4323-8 #### [facility] CLIA [id number] [address] ESTIMATED GLOMERULAR FILTRATION RATE 96 mL/min/1.73m??? [facility] >=[facility] Comment on above: Order Comment: Speci men Type: BLOOD SPECIMEN Ordering Facility: [facility] Address: [address] [place] [address] Result Comment: Pricilla mated Glomerular Filtration Rate (eGFR) is calculated using the 2020 CKD-EPI creatinine equation. This equation utilizes serum creatinine, sex, and age as parameters. The creatinine assay has traceable calibration to isotope dilution-mass spectrometry. Refer to KDIGO guidelines for clinical interpretation. In patients with unstable renal function, e.g. those with acute kidney injury, the eGFR may not accurately reflect actual GFR. Performed By: #### 2 4323-8 #### [facility] CLIA [id number] [address] [place] [address] [place] Glucose [Mass/Vol] 87 mg/dL Normal 74-[address] [facility] Comment on above: Order Comment: Usha daugherty Type: BLOOD SPECIMEN Ordering Facility: [facility] Address: [address] [place] [address] Result Comment: The [place] Diabetes Association (ADA) provides guidance for cutoff values for fasting glucose and random glucose. The ADA defines fasting as no caloric intake for at least 8 hours. Fasting plasma glucose results between 100 to 125 mg/dL indicate increased risk for diabetes (prediabetes). Fasting plasma glucose results greater than or equal to 126 mg/dL meet the criteria for diagnosis of diabetes. In the absence of unequivocal hyperglycemia, results should be confirmed by repeat testing. In a patient with classic symptoms of hyperglycemia or hyperglycemic crisis, random plasma glucose results greater than or equal to 200 mg/dL meet the criteria for diagnosis of diabetes. Reference: Standards of Medical Care in Diabetes 2016, [place] [employer]. Diabetes Care. 2016.39(Suppl 1). Performed By: #### 2 4323-8 #### [facility] CLIA [id number] [address] [place] [address] [place] Potassium [Moles/Vol] 3.8 mmol/L Normal 3.7-5.[address] [facility] Comment on above: Order Comment: Usha daugherty Type: BLOOD SPECIMEN Ordering Facility: [facility] Address: [address] [place] [address] Performed By: #### 2 4323-8 #### [facility] CLIA [id number] [address] [place] [address] [place] Protein [Mass/Vol] 6.8 g/dL Normal 6.3-8.[address] [facility] Comment on above: Order Comment: Usha daugherty Type: BLOOD SPECIMEN Ordering Facility: [facility] Address: [address] [place] [address] Performed By: #### 2 4323-8 #### [facility] CLIA [id number] [address] [place] [address] [place] Sodium [Moles/Vol] 144 mmol/L Normal 136-[address] [facility] Comment on above: Order Comment: Usha daugherty Type: BLOOD SPECIMEN Ordering Facility: [facility] Address: [place] [address] Performed By: #### 2 4323-8 #### [facility] CLIA [id number] [address] [place] [facility] Urea nitrogen [Mass/Vol] 10 mg/dL Normal 7-[address] [facility] Comment on above: Order Comment: Speci men Type: BLOOD SPECIMEN Ordering Facility: [facility] Address: [place] [address] Performed By: #### 2 4323-8 #### [facility] CLIA [id number] [address] [place] HISTORY PHYSICALon HISTORY PHYSICAL HNO ID: [id number] Author: Genevieve Thompson APRN.OPTOMETRIC AIDE Service: ? Author Type: Nurse Practitioner Type: HANDP Filed: 05/03/2023 9:54 AM Note Text: HISTORY AND PHYSICAL EXAMINATION SERVICE DATE: 05/03/2023 SERVICE TIME: 9:00 AM PRIMARY CARE PHYSICIAN: Carlos Chris Chi REASON FOR VISIT: Romain Mendoza is a 47 year old female who is scheduled for Procedure(s): LAPAROSCOPY WITH OOPHORECTOMY AND SALPINGECTOMY (Bilateral) at the request of Sylvia Rodriguez DO for consultation. My final recommendation will be communicated back to the requesting physician by way of shared medical record or letter. Subjective The patient has the following: ACTIVE PROBLEM LIST Essential Hypertension Other Adjustment Reaction With Predominant Disturbance of Other Emotions Bipolar 2 Disorder (Hcc) Depression Bipolar Disorder, Rapid Cycling (Hcc) Hypothyroid Vitamin D Deficiency Adjustment Disorder With Mixed Anxiety and Depressed Mood Mixed hyperlipidemia Family History of Diabetes Mellitus Asthma Goiter Dental Caries Ovarian Cyst, Left Ckd (Chronic Kidney Disease) Balbina (Obstructive Sleep Apnea) COVID-19 Immunization Status Overdue - COVID-19 VACCINE (5 - Pfizer series) Overdue since 09/06/2022 07/12/2022 Outside Immunization: COVID-19 (Moderna) Low Dose Booster 07/28/2021 Imm Admin: COVID-19 original vaccine, full dose, monovalent (MODERNA) 01/17/2021 Imm Admin: COVID-19 original vaccine, age 12+ yr, monovalent (PFIZER-BIONTOfferpop - PURPLE TOP) Only the first 3 history entries have been loaded, but more history exists. CHIEF COMPLAINT: Pre-op evaluation HPI: 47 year old female here for pre-op evaluation. H/o 3 c-sections and 2 vaginal births, partial hysterectomy about 13 years ago. Pelvic pain present for years- symptoms are intermittent, denies pain in office, pain can get up to 10/10. +pain with intercourse. Denies abnormal vaginal bleeding or discharge. Prior surgery attempted 03/17/23 with extensive adhesions and inability to visualize the right ovary. REVIEW OF SYSTEMS: General: No weight loss, malaise or fevers. Neurological: No history of TIA's, stroke, SIGNALLING AND COMMUNICATIONS ENGINEER tumor, impaired sensorium, hemiplegia, paraplegia or quadraplegia. No neurological symptoms or problems. Respiratory: Positive for: asthma and obstructive sleep apnea. Negative for: COPD, current cough, dyspnea, orthopnea and tobacco use. Cardiovascular: Positive for: hyperlipidemia and hypertension Negative for: angina, arrhythmia, atrial fibrillation, chest pain, CHF, DVT/PE and murmur/valvular heart disease. GI: H/o bariatric surgery 09/2022 Positive for: liver disease (fatty liver) Negative for: abdominal pain, dysphagia, GERD, nausea and vomiting. : Positive for: renal failure. Negative for: dysuria, frequent urination, hematuria, urinary incontinence, nocturia >1 time per night and urgency. DIRECTOR DATA ARCHITECTURE: See HPI. Endocrine: Positive for: hypothyroidism. Negative for: diabetes mellitus and hyperthyroidism. Hematology: No history of bleeding or clotting disorder. Patient is not taking anti-coagulation or platelet medications. No history of hematological symptoms or problems. Oncology: No history of CA metastasis, chemo within 30 days, or radiotherapy within 90 days. No history of oncological symptoms or problems. Psych: Positive for: anxiety, bipolar disorder and depression. Musculoskeletal: Negative for joint pain or swelling, back pain or muscle pain. Skin: Negative for lesions, rash and itching. PAST MEDICAL HISTORY Diagnosis Date Asthma 03/2016 + [facility] at [facility]. Depressive disorder, not elsewhere classified [...] Date APPENDECTOMY 01/2019 DELIVERY ONLY 2006, 2006, 2008 , low cervical X3 GASTRIC BYPASS HX 09/20/2022 Reun Y IUD INSERTION (DIRECTOR DATA ARCHITECTURE DEPT)_*FL 07/17/2007 Mirena IUD REMOVAL (DIRECTOR DATA ARCHITECTURE DEPT)_*FL 10/23/2007 Mirena L'SCOPE DX W/WO BRUSHINGS/WASHINGS 03/17/2023 LIG/TRNSXJ FLP TUBE ABDL/VAG APPR UNI/BI 2008 Tubal ligation PAST SURGICAL HISTORY OF 1985 Eye surgery TOTAL ABDOMINAL HYSTERECT W/WO RMVL TUBE OVARY 04/22/2011 WOJCIECH FAMILY HISTORY Problem Relation Age of Onset Hypertension Mother Breast Cancer Mother Diabetes Father Stroke Father Cancer Maternal Grandmother UTERINE CANCER COPD Maternal Grandmother Emphysema Social History Tobacco Use Smoking stat (more content not included)... 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 [facility] on 01-10-2023 36 Will need to get records. Current US/Scan? [facility] 3601-07-2023 36 Name of caller: Romain Contact phone number: [phone] Relationship to Patient: patient Provider: Practice: Drs. Renteria and Douglas Chief Complaint/Reason for Call: Patient requesting TURF MANAGER appointment for cysts on her ovaries. Patient states PCP referred her to this office. Please call to schedule. Best time of day caller can be reached: any Patient advised that office/PCP has 24-48 business hours to return their call: no ' [facility] CBC with Diffon 09-22-2022 AB IMMATURE NEUT 0.03 K/UL Normal 0.0-0.1 [facility] Comment on above: Performed By: #### C BCD #### Main [address] [address] [place] [address] ABS BASO 0.03 K/UL Normal 0.00-0.22 [facility] Comment on above: Performed By: #### C BCD #### [facility] [address] [address] [place] [address] ABS EOS 0.02 K/UL Normal 0-0.45 [facility] Comment on above: Performed By: #### C BCD #### [facility] [address] [address] [place] [address] ABS NEUTROPHILS 7.03 K/UL Normal 1.8-7.7 [facility] Comment on above: Performed By: #### C BCD #### [facility] [address] [address] [place] [address] ABS.NEUT.CALCULATED 7.03 K/UL Normal [facility] Comment on above: Result Comment: Perf ormed at [place] [address] [address] [facility] [address] Performed By: #### C BCD #### [address] [address] [place] [address] Basophils/100 WBC (Bld) 0.30 % Normal 0-1 [facility] Comment on above: Performed By: #### C BCD #### [address] [address] [place] [address] DIFF TYPE AUTO DIFF Normal [facility] Comment on above: Performed By: #### C BCD #### [address] [address] [place] [address] Eosinophils/100 WBC (Bld) 0.20 % Normal 0-3 [facility] Comment on above: Performed By: #### C BCD #### [facility] [address] [address] [place] [address] Erythrocyte distribution width (RBC) [Ratio] 13.5 % Normal 11.7-15.0 [facility] Comment on above: Performed By: #### C BCD #### [facility] [address] [address] [place] [address] Hematocrit (Bld) [Volume fraction] 33.8 % Low 36-44 [facility] Comment on above: Performed By: #### C BCD #### [address] [address] [place] [address] Hemoglobin (Bld) [Mass/Vol] 11.1 g/dL Low 12.0-15.0 [facility] Comment on above: Performed By: #### C BCD #### [address] [address] [place] [address] Lymphocytes (Bld) [#/Vol] 2.81 10*3/uL Normal 1.2-3.2 [facility] Comment on above: Performed By: #### C BCD #### [address] [address] [place] [address] Lymphocytes/100 WBC (Bld) 26.40 % Normal 20-40 [facility] Comment on above: Performed By: #### C BCD #### [address] [address] [place] [address] MCH (RBC) [Entitic mass] 30.1 pg Normal 26-34 [facility] Comment on above: Performed By: #### C BCD #### [address] [address] [place] [address] MCHC 32.8 % Normal 31-37 [facility] Comment on above: Performed By: #### C BCD #### [address] [address] [place] [address] MCV (RBC) [Entitic vol] 91.6 fL Normal 80-100 [facility] Comment on above: Performed By: #### C BCD #### [address] [address] [place] [address] MEAN PLT VOL 10.5 CU Normal 7.0-12.6 [facility] Comment on above: Performed By: #### C BCD #### [address] [address] [place] [address] Monocytes (Bld) [#/Vol] 0.74 10*3/uL Normal 0-0.8 [facility] Comment on above: Performed By: #### C BCD #### [address] [address] [place] [address] Monocytes/100 WBC (Bld) 6.90 % Normal 0-8 [facility] Comment on above: Performed By: #### C BCD #### [facility] [address] [place] [address] Neutrophils/100 WBC (Bld) 0.30 % Normal 0.0-1.0 [facility] Comment on above: Performed By: #### C BCD #### [facility] [address] [place] [address] Neutrophils/100 WBC (Bld) 65.90 % Normal 50-70 [facility] Comment on above: Performed By: #### C BCD #### [facility] [address] [address] [place] [address] NRBC'S 0 /100 WBC Normal 0 [facility] Comment on above: Performed By: #### C BCD #### [facility] [address] [address] [place] [address] Platelets (Bld) [#/Vol] 261 10*3/uL Normal 150-450 [facility] Comment on above: Performed By: #### C BCD #### [facility] [address] [address] [place] [address] RBC (Bld) [#/Vol] 3.69 10*6/uL Low 4.0-4.9 [facility] Comment on above: Performed By: #### C BCD #### [facility] [address] [address] [place] [address] RDW-SD 45.6 FL Normal 37.0-54.0 [facility] Comment on above: Performed By: #### C BCD #### [facility] [address] [address] [place] [address] WBC (Bld) [#/Vol] 10.7 10*3/uL Normal 4.5-11.0 [facility] Comment on above: Performed By: #### C BCD #### [facility] [address] [address] [place] [address] Laboratory - Hematology and Cell countson 09-22-2022 Basophils (Bld) [#/Vol] Abs Baso 0.03 K/UL (0.00-0.22 K/UL) 0.00 - 0.22 K/UL [facility] Basophils/100 WBC (Bld) Basophil 0.30 % (0-1 %) 0 - 1 % [facility] Differential cell count method Nom (Bld) Diff Type AUTO DIFF (Reference Range: not available) [facility] Eosinophils (Bld) [#/Vol] Abs Eos 0.02 K/UL (0-0.45 K/UL) 0 - 0.45 K/UL [facility] Eosinophils/100 WBC (Bld) Eosinophil 0.20 % (0-3 %) 0 - 3 % [facility] Erythrocyte distribution width (RBC) [Entitic vol] RDW SD 45.6 FL (37.0-54.0 FL) 37.0 - 54.0 FL [facility] Erythrocyte distribution width (RBC) [Ratio] RDW CV 13.5 % (11.7-15.0 %) 11.7 - 15.0 % [facility] Hematocrit (Bld) [Volume fraction] HCT 33.8 % L (36-44 %) Low 36 - 44 % [facility] Hemoglobin (Bld) [Mass/Vol] HGB 11.1 GM/DL L (12.0-15.0 GM/DL) Low 12.0 - 15.0 GM/DL [facility] Immature granulocytes (Bld) [#/Vol] Abs Imm Neut 0.03 K/UL (0.0-0.1 K/UL) 0.0 - 0.1 K/UL [facility] Lymphocytes (Bld) [#/Vol] Abs Lymph 2.81 K/UL (1.2-3.2 K/UL) 1.2 - 3.2 K/UL [facility] Lymphocytes/100 WBC (Bld) Lymphocyte 26.40 % (20-40 %) 20 - 40 % [facility] MCH (RBC) [Entitic mass] MCH 30.1 PG (26-34 PG) 26 - 34 PG [facility] MCHC (RBC) [Mass/Vol] MCHC 32.8 % (31-37 %) 31 - 37 % [facility] MCV (RBC) [Entitic vol] MCV 91.6 FL (80-100 FL) 80 - 100 FL [facility] Monocytes (Bld) [#/Vol] Abs Sauk 0.74 K/UL (0-0.8 K/UL) 0 - 0.8 K/UL [facility] Monocytes/100 WBC (Bld) Monocyte 6.90 % (0-8 %) 0 - 8 % [facility] Neutrophils (Bld) [#/Vol] Abs.Neut.Calculated 7.03 K/UL (Reference Range: not available) Performed at [address] [address] [facility] Neutrophils (Bld) [#/Vol] Abs Neut 7.03 K/UL (1.8-7.7 K/UL) 1.8 - 7.7 K/UL [facility] Neutrophils.immature /100 WBC (Bld) Immature Neut % 0.30 % (0.0-1.0 %) 0.0 - 1.0 % [facility] Nucleated RBC/100 WBC (Bld) [Ratio] NRBCs 0 /100 WBC (0 /100 WBC) [facility] Platelet mean volume (Bld) [Entitic vol] MPV 10.5 CU (7.0-12.6 CU) 7.0 - 12.6 CU [facility] Platelets (Bld) [#/Vol] PLT 261 K/UL (150-450 K/UL) 150 - 450 K/UL [facility] RBC (Bld) [#/Vol] RBC 3.69 M/UL L (4.0-4.9 M/UL) Low 4.0 - 4.9 M/UL [facility] Segmented neutrophils/100 WBC (Bld) Granulocyte 65.90 % (50-70 %) 50 - 70 % [facility] WBC (Bld) [#/Vol] WBC 10.7 K/UL (4.5-11.0 K/UL) 4.5 - 11.0 K/UL [facility] BASIC METABOLIC PANELon 12-1 Anion gap [Moles/Vol] 10 mmol/L Normal 0-19 [facility] Comment on above: Performed By: #### B MP #### Main Laboratory [address] [address] Calcium [Mass/Vol] 8.2 mg/dL Low 8.5-10.4 [facility] Comment on above: Performed By: #### B MP #### Main Laboratory [address] [address] [place] [address] Chloride [Moles/Vol] 103 mmol/L Normal 97-107 [facility] Comment on above: Performed By: #### B MP #### [facility] [place] [address] [place] [address] CO2 [Moles/Vol] 23 mmol/L Low 24-31 [facility] Comment on above: Performed By: #### B MP #### [facility] [address] [address] [place] [address] Creatinine [Mass/Vol] 1.0 mg/dL Normal 0.4-1.6 [facility] Comment on above: Performed By: #### B MP #### [facility] [address] [address] [place] [address] ESTIMATED GFR 71 mL/min/1.73 m2 Normal [facility] Comment on above: Result Comment: CALCULATIONS OF ESTIMATED GFR ARE PERFORMED USING THE 2020 CKD-EPI STUDY REFIT EQUATION WITHOUT THE RACE VARIABLE FOR THE IDMS-TRACEABLE CREATININE METHODS. https://jasn.asnjournals.org/content/early/ASN.7716737 988 Performed at [place] [address] [place] [address] Performed By: #### B MP #### [address] [address] [place] [address] Glucose [Mass/Vol] 117 mg/dL High 65-99 [facility] Comment on above: Performed By: #### B MP #### [facility] [place] [address] [address] [place] [facility] [address] Potassium [Moles/Vol] 4.3 mmol/L Normal 3.4-5.1 [facility] Comment on above: Performed By: #### B MP #### [facility] [address] [address] [place] [address] Sodium [Moles/Vol] 136 mmol/L Normal 133-145 [facility] Comment on above: Performed By: #### B MP #### [facility] [place] [address] [place] [address] Urea nitrogen [Mass/Vol] 13 mg/dL Normal 8-25 [facility] Comment on above: Performed By: #### B MP #### [facility] [id number] [place] [address] Urea nitrogen/Creatinine [Mass ratio] 13.0 mg/mg Normal 8- [facility] Comment on above: Performed By: #### B MP #### [facility] [address] [address] CBC with Diffon 09-21-2022 AB IMMATURE NEUT 0.07 K/UL Normal 0.0-0.1 [facility] Comment on above: Performed By: #### C BCD #### [facility] [address] [address] ABS BASO 0.02 K/UL Normal 0.00-0.22 [facility] Comment on above: Performed By: #### C BCD #### [facility] [address] [address] ABS EOS 0.00 K/UL Normal 0-0.45 [facility] Comment on above: Performed By: #### C BCD #### [facility] [place] [address] [place] [address] ABS NEUTROPHILS 10.47 K/UL High 1.8-7.7 [facility] Comment on above: Performed By: #### C BCD #### [facility] [address] [address] ABS.NEUT.CALCULATED 10.47 K/UL Normal [facility] Comment on above: Result Comment: Perf ormed at [address] [place] [address] Performed By: #### C BCD #### [facility] [address] [address] Basophils/100 WBC (Bld) 0.10 % Normal 0-1 [facility] Comment on above: Performed By: #### C BCD #### [facility] [address] [address] DIFF TYPE AUTO DIFF Normal [facility] Comment on above: Performed By: #### C BCD #### [facility] [place] [address] [place] [address] Eosinophils/100 WBC (Bld) 0.00 % Normal 0-3 [facility] Comment on above: Performed By: #### C BCD #### [address] [address] [place] [address] Erythrocyte distribution width (RBC) [Ratio] 13.4 % Normal 11.7-15.0 [facility] Comment on above: Performed By: #### C BCD #### [facility] [address] [address] [place] [address] Hematocrit (Bld) [Volume fraction] 36.1 % Normal 36-44 [facility] Comment on above: Performed By: #### C BCD #### [address] [address] [place] [address] Hemoglobin (Bld) [Mass/Vol] 11.8 g/dL Low 12.0-15.0 [facility] Comment on above: Performed By: #### C BCD #### [address] [address] [place] [address] Lymphocytes (Bld) [#/Vol] 2.29 10*3/uL Normal 1.2-3.2 [facility] Comment on above: Performed By: #### C BCD #### [address] [address] [place] [address] Lymphocytes/100 WBC (Bld) 16.70 % Low 20-40 [facility] Comment on above: Performed By: #### C BCD #### [address] [address] [place] [address] MCH (RBC) [Entitic mass] 30.1 pg Normal 26-34 [facility] Comment on above: Performed By: #### C BCD #### [address] [address] [place] [address] MCHC 32.7 % Normal 31-37 [facility] Comment on above: Performed By: #### C BCD #### [address] [address] [place] [address] MCV (RBC) [Entitic vol] 92.1 fL Normal 80-100 [facility] Comment on above: Performed By: #### C BCD #### [facility] [address] [place] [address] MEAN PLT VOL 10.5 CU Normal 7.0-12.6 [facility] Comment on above: Performed By: #### C BCD #### [address] [address] [place] [address] Monocytes (Bld) [#/Vol] 0.90 10*3/uL High 0-0.8 [facility] Comment on above: Performed By: #### C BCD #### [address] [address] [place] [address] Monocytes/100 WBC (Bld) 6.50 % Normal 0-8 [facility] Comment on above: Performed By: #### C BCD #### [address] [address] [place] [address] Neutrophils/100 WBC (Bld) 0.50 % Normal 0.0-1.0 [facility] Comment on above: Performed By: #### C BCD #### [address] [place] [address] [place] [address] Neutrophils/100 WBC (Bld) 76.20 % High 50-70 [facility] Comment on above: Performed By: #### C BCD #### [address] [place] [address] [place] [address] NRBC'S 0 /100 WBC Normal 0 [facility] Comment on above: Performed By: #### C BCD #### [address] [address] [place] [address] Platelets (Bld) [#/Vol] 309 10*3/uL Normal 150-450 [facility] Comment on above: Performed By: #### C BCD #### [address] [address] [place] [address] RBC (Bld) [#/Vol] 3.92 10*6/uL Low 4.0-4.9 [facility] Comment on above: Performed By: #### C BCD #### [address] [address] [place] [address] RDW-SD 45.8 FL Normal 37.0-54.0 [facility] Comment on above: Performed By: #### C BCD #### [facility] [place] [address] [place] [address] WBC (Bld) [#/Vol] 13.8 10*3/uL High 4.5-11.0 [facility] Comment on above: Performed By: #### C BCD #### [facility] [place] [address] [place] [address] AB IMMATURE NEUT 0.08 K/UL Normal 0.0-0.1 [facility] Comment on above: Performed By: #### B MP #### [facility] [place] [address] [facility] [place] [address] ABS BASO 0.02 K/UL Normal 0.00-0.22 [facility] Comment on above: Performed By: #### B MP #### [facility] [place] [address] [facility] [place] [address] ABS EOS 0.00 K/UL Normal 0-0.45 [facility] Comment on above: Performed By: #### B MP #### [facility] [place] [address] [address] [place] [address] ABS NEUTROPHILS 11.86 K/UL High 1.8-7.7 [facility] Comment on above: Performed By: #### B MP #### [facility] [place] [address] [place] [address] ABS.NEUT.CALCULATED 11.86 K/UL Normal [facility] Comment on above: Result Comment: Perf ormed at [place] [address] [place] [address] Performed By: #### B MP #### [facility] [place] [address] [facility] [place] [address] Basophils/100 WBC (Bld) 0.10 % Normal 0-1 [facility] Comment on above: Performed By: #### B MP #### [facility] [place] [address] [facility] [place] [address] DIFF TYPE AUTO DIFF Normal [facility] Comment on above: Performed By: #### B MP #### [facility] [place] [address] [address] [facility] [place] [address] Eosinophils/100 WBC (Bld) 0.00 % Normal 0-3 [facility] Comment on above: Performed By: #### B MP #### [facility] [place] [place] [address] Erythrocyte distribution width (RBC) [Ratio] 13.3 % Normal 11.7-15.0 [facility] Comment on above: Performed By: #### B MP #### [facility] [place] [address] [place] [address] Hematocrit (Bld) [Volume fraction] 35.7 % Low 36-44 [facility] Comment on above: Performed By: #### B MP #### [facility] [address] [place] [address] Hemoglobin (Bld) [Mass/Vol] 11.8 g/dL Low 12.0-15.0 [facility] Comment on above: Performed By: #### B MP #### [address] [place] [place] [address] Lymphocytes (Bld) [#/Vol] 1.81 10*3/uL Normal 1.2-3.2 [facility] Comment on above: Performed By: #### B MP #### [facility] [address] [place] [address] Lymphocytes/100 WBC (Bld) 12.40 % Low 20-40 [facility] Comment on above: Performed By: #### B MP #### [address] [place] [address] MCH (RBC) [Entitic mass] 30.1 pg Normal 26-34 [facility] Comment on above: Performed By: #### B MP #### [facility] [place] [address] [place] [address] MCHC 33.1 % Normal 31-37 [facility] Comment on above: Performed By: #### B MP #### [facility] [place] [address] [place] [address] MCV (RBC) [Entitic vol] 91.1 fL Normal 80-100 [facility] Comment on above: Performed By: #### B MP #### [facility] [place] [address] [place] [address] MEAN PLT VOL 10.3 CU Normal 7.0-12.6 [facility] Comment on above: Performed By: #### B MP #### [facility] [address] [place] [address] Monocytes (Bld) [#/Vol] 0.85 10*3/uL High 0-0.8 [facility] Comment on above: Performed By: #### B MP #### [facility] [address] [place] [address] Monocytes/100 WBC (Bld) 5.80 % Normal 0-8 [facility] Comment on above: Performed By: #### B MP #### [facility] [address] [place] [address] Neutrophils/100 WBC (Bld) 0.50 % Normal 0.0-1.0 [facility] Comment on above: Performed By: #### B MP #### [address] [place] [address] Neutrophils/100 WBC (Bld) 81.20 % High 50-70 [facility] Comment on above: Performed By: #### B MP #### [place] [address] [facility] [address] NRBC'S 0 /100 WBC Normal 0 [facility] Comment on above: Performed By: #### B MP #### [facility] [address] [place] [address] Platelets (Bld) [#/Vol] 313 10*3/uL Normal 150-450 [facility] Comment on above: Performed By: #### B MP #### [facility] [address] [place] [address] RBC (Bld) [#/Vol] 3.92 10*6/uL Low 4.0-4.9 [facility] Comment on above: Performed By: #### B MP #### [facility] [address] [place] [address] RDW-SD 45.0 FL Normal 37.0-54.0 [facility] Comment on above: Performed By: #### B MP #### [facility] [address] [place] [address] WBC (Bld) [#/Vol] 14.6 10*3/uL High 4.5-11.0 [facility] Comment on above: Performed By: #### B #### Main Laboratory [address] [address] Laboratory - Chemistry and C hemistry - challengeon 09-21-2022 Anion gap [Moles/Vol] Anion Gap 10 MMOL/L (0-19 MMOL/L) 0 - 19 MMOL/L [facility] Calcium [Mass/Vol] Calcium 8.2 MG/DL L (8.5-10.4 MG/DL) Low 8.5 - 10.4 MG/DL [facility] Chloride [Moles/Vol] Chloride 103 MMOL/L (97-107 MMOL/L) 97 - 107 MMOL/L [facility] CO2 [Moles/Vol] Carbon Dioxide 23 MMOL/L L (24-31 MMOL/L) Low 24 - 31 MMOL/L [facility] Creatinine [Mass/Vol] Creatinine R 1.0 MG/DL (0.4-1.6 MG/DL) 0.4 - 1.6 MG/DL [facility] GFR/1.73 sq M.predicted MDRD (S/P/Bld) [Vol rate/Area] EGFR 71 mL/min/1.73 m2 (Reference Range: not available) CALCULATIONS OF ESTIMATED GFR ARE PERFORMED USING THE 2020 CKD-EPI STUDY REFIT EQUATION WITHOUT THE RACE VARIABLE FOR THE IDMS-TRACEABLE CREATININE METHODS. https://johnn.asnjour nals.org/content/ear ly//ASN.20 00932954 Performed at [address] [address] [facility] Glucose [Mass/Vol] Glucose 117 MG/DL H (65-99 MG/DL) High 65 - 99 MG/DL [facility] Potassium [Moles/Vol] Potassium R 4.3 MMOL/L (3.4-5.1 MMOL/L) 3.4 - 5.1 MMOL/L [facility] Sodium [Moles/Vol] Sodium 136 MMOL/L (133-145 MMOL/L) 133 - 145 MMOL/L [facility] Urea nitrogen [Mass/Vol] BUN 13 MG/DL (8-25 MG/DL) 8 - 25 MG/DL [facility] Urea nitrogen/Creatinine [Mass ratio] BUN Creatinine Ratio 13.0 RATIO (8-21 RATIO) 8 - 21 RATIO [facility] Laboratory - Hematology and Cell countson 09-21-2022 Erythrocyte distribution width (RBC) [Entitic vol] RDW SD 45.8 FL (37.0-54.0 FL) 37.0 - 54.0 FL [facility] Erythrocyte distribution width (RBC) [Ratio] RDW CV 13.4 % (11.7-15.0 %) 11.7 - 15.0 % [facility] Hematocrit (Bld) [Volume fraction] HCT 36.1 % (36-44 %) 36 - 44 % [facility] Immature granulocytes (Bld) [#/Vol] Abs Imm Neut 0.07 K/UL (0.0-0.1 K/UL) 0.0 - 0.1 K/UL [facility] Lymphocytes (Bld) [#/Vol] Abs Lymph 2.29 K/UL (1.2-3.2 K/UL) 1.2 - 3.2 K/UL [facility] Lymphocytes/100 WBC (Bld) Lymphocyte 16.70 % L (20-40 %) Low 20 - 40 % [facility] MCHC (RBC) [Mass/Vol] MCHC 32.7 % (31-37 %) 31 - 37 % [facility] MCV (RBC) [Entitic vol] MCV 92.1 FL (80-100 FL) 80 - 100 FL [facility] Monocytes (Bld) [#/Vol] Abs Sauk 0.90 K/UL H (0-0.8 K/UL) High 0 - 0.8 K/UL [facility] Monocytes/100 WBC (Bld) Monocyte 6.50 % (0-8 %) 0 - 8 % [facility] Neutrophils (Bld) [#/Vol] Abs.Neut.Calculated 10.47 K/UL (Reference Range: not available) Performed at [address] [address] [facility] Neutrophils (Bld) [#/Vol] Abs Neut 10.47 K/UL H (1.8-7.7 K/UL) High 1.8 - 7.7 K/UL [facility] Platelet mean volume (Bld) [Entitic vol] MPV 10.5 CU (7.0-12.6 CU) 7.0 - 12.6 CU [facility] Platelets (Bld) [#/Vol] PLT 309 K/UL (150-450 K/UL) 150 - 450 K/UL [facility] Segmented neutrophils/100 WBC (Bld) Granulocyte 76.20 % H (50-70 %) High 50 - 70 % [facility] WBC (Bld) [#/Vol] WBC 13.8 K/UL H (4.5-11.0 K/UL) High 4.5 - 11.0 K/UL [facility] Basophils (Bld) [#/Vol] Abs Baso 0.02 K/UL (0.00-0.22 K/UL) 0.00 - 0.22 K/UL [facility] Basophils/100 WBC (Bld) Basophil 0.10 % (0-1 %) 0 - 1 % [facility] Differential cell count method Nom (Bld) Diff Type AUTO DIFF (Reference Range: not available) [facility] Eosinophils (Bld) [#/Vol] Abs Eos 0.00 K/UL (0-0.45 K/UL) 0 - 0.45 K/UL [facility] Eosinophils/100 WBC (Bld) Eosinophil 0.00 % (0-3 %) 0 - 3 % [facility] Erythrocyte distribution width (RBC) [Entitic vol] RDW SD 45.0 FL (37.0-54.0 FL) 37.0 - 54.0 FL [facility] Erythrocyte distribution width (RBC) [Ratio] RDW CV 13.3 % (11.7-15.0 %) 11.7 - 15.0 % [facility] Hematocrit (Bld) [Volume fraction] HCT 35.7 % L (36-44 %) Low 36 - 44 % [facility] Hemoglobin (Bld) [Mass/Vol] HGB 11.8 GM/DL L (12.0-15.0 GM/DL) Low 12.0 - 15.0 GM/DL [facility] Immature granulocytes (Bld) [#/Vol] Abs Imm Neut 0.08 K/UL (0.0-0.1 K/UL) 0.0 - 0.1 K/UL [facility] Lymphocytes (Bld) [#/Vol] Abs Lymph 1.81 K/UL (1.2-3.2 K/UL) 1.2 - 3.2 K/UL [facility] Lymphocytes/100 WBC (Bld) Lymphocyte 12.40 % L (20-40 %) Low 20 - 40 % [facility] MCH (RBC) [Entitic mass] MCH 30.1 PG (26-34 PG) 26 - 34 PG [facility] MCHC (RBC) [Mass/Vol] MCHC 33.1 % (31-37 %) 31 - 37 % [facility] MCV (RBC) [Entitic vol] MCV 91.1 FL (80-100 FL) 80 - 100 FL [facility] Monocytes (Bld) [#/Vol] Abs Sauk 0.85 K/UL H (0-0.8 K/UL) High 0 - 0.8 K/UL [facility] Monocytes/100 WBC (Bld) Monocyte 5.80 % (0-8 %) 0 - 8 % [facility] Neutrophils (Bld) [#/Vol] Abs.Neut.Calculated 11.86 K/UL (Reference Range: not available) Performed at [address] [address] [facility] Neutrophils (Bld) [#/Vol] Abs Neut 11.86 K/UL H (1.8-7.7 K/UL) High 1.8 - 7.7 K/UL [facility] Neutrophils.immature /100 WBC (Bld) Immature Neut % 0.50 % (0.0-1.0 %) 0.0 - 1.0 % [facility] Nucleated RBC/100 WBC (Bld) [Ratio] NRBCs 0 /100 WBC (0 /100 WBC) [facility] Platelet mean volume (Bld) [Entitic vol] MPV 10.3 CU (7.0-12.6 CU) 7.0 - 12.6 CU [facility] Platelets (Bld) [#/Vol] PLT 313 K/UL (150-450 K/UL) 150 - 450 K/UL [facility] RBC (Bld) [#/Vol] RBC 3.92 M/UL L (4.0-4.9 M/UL) Low 4.0 - 4.9 M/UL [facility] Segmented neutrophils/100 WBC (Bld) Granulocyte 81.20 % H (50-70 %) High 50 - 70 % [facility] WBC (Bld) [#/Vol] WBC 14.6 K/UL H (4.5-11.0 K/UL) High 4.5 - 11.0 K/UL [facility] No Panel Informationon 09-21 XR UGI with KUB (Reference Range: not available) *FINAL Date of Service: 09/21/2022 09:34 Adm #: [id number] Reading Dr:BRINA LARSEN Signoff Dr: BRINA LARSEN PROCEDURE: UGI W KUB - WXR 0132 REASON FOR EXAM: Post Laparoscopic Gastric Bypass RESULT: Patient Name: ROMAIN MENDOZA STUDY: UGI W KUB; 09/21/2022 9:34 am INDICATION: Post Laparoscopic Gastric Bypass. Status post Simona-en-Y procedure. COMPARISON: None ACCESSION NUMBER(S): [id number] ORDERING CLINICIAN: ANAID GARSIA TECHNIQUE: Fluoroscopic and radiographic evaluation of the thoracic esophagus and stomach was performed. A water-soluble contrast examination was performed. A health information systems technician KUB was performed. Fluoroscopy time: 51 seconds Number of images: 11 spots 2 cine FINDINGS: KUB: The abdominal gas pattern is non-specific in appearance. There was no holdup of contrast material within the thoracic esophagus. There is a Simona-en-Y gastric pouch present without evidence for extravasation of contrast. Contrast material exits the stomach without difficulty into the efferent limb. IMPRESSION: Status post Simona-en-Y gastric bypass. No evidence for obstruction or leak. Dictation workstation: [id number] Original Interpreting Physician: BRINA LARESN M.D. Original Transcribed by/Date: MMODAL Sep 21 2022 8:00A Original Electronically Signed by/Date: BRINA LARSEN M.D. Sep 21 2022 1:48P Addendum Interpreting Physician: Addendum Transcribed by/Date: NO ADDENDUM Addendum Electronically Signed by/Date: [facility] UGI W KUBon 09-21-2022 UGI W KUB *FINAL Date of Service: 09/21/2022 09:34 Adm #: [id number] Reading Dr:BRINA LARSEN Signoff Dr: BRINA LARSEN PROCEDURE: UGI W KUB - WXR 0132 REASON FOR EXAM: Post Laparoscopic Gastric Bypass RESULT: Patient Name: ROMAIN MENDOZA STUDY: UGI W KUB; 09/21/2022 9:34 am INDICATION: Post Laparoscopic Gastric Bypass. Status post Simona-en-Y procedure. COMPARISON: None ACCESSION NUMBER(S): [id number] ORDERING CLINICIAN: ANAID GARSIA TECHNIQUE: Fluoroscopic and radiographic evaluation of the thoracic esophagus and stomach was performed. A water-soluble contrast examination was performed. A health information systems technician KUB was performed. Fluoroscopy time: 51 seconds Number of images: 11 spots 2 cine FINDINGS: KUB: The abdominal gas pattern is non-specific in appearance. There was no holdup of contrast material within the thoracic esophagus. There is a Simona-en-Y gastric pouch present without evidence for extravasation of contrast. Contrast material exits the stomach without difficulty into the efferent limb. IMPRESSION: Status post Simona-en-Y gastric bypass. No evidence for obstruction or leak. Dictation workstation: [id number] Original Interpreting Physician: BRINA LARSEN M.D. Original Transcribed by/Date: MMODAL Sep 21 2022 8:00A Original Electronically Signed by/Date: BRINA LARSEN M.D. Sep 21 2022 1:48P Addendum Interpreting Physician: Addendum Transcribed by/Date: NO ADDENDUM Addendum Electronically Signed by/Date: Normal [facility] CBC with Diffon 08-26-2022 AB IMMATURE NEUT 0.04 K/UL Normal 0.0-0.1 [facility] Comment on above: Performed By: #### B 12 #### [address] [address] ABS BASO 0.09 K/UL Normal 0.00-0.22 [facility] Comment on above: Performed By: #### B 12 #### [address] [place] [address] [place] [address] ABS EOS 0.09 K/UL Normal 0-0.45 [facility] Comment on above: Performed By: #### B 12 #### [facility] [address] [place] [address] ABS NEUTROPHILS 7.20 K/UL Normal 1.8-7.7 [facility] Comment on above: Performed By: #### B 12 #### [facility] [address] [place] [address] ABS.NEUT.CALCULATED 7.20 K/UL Normal [facility] Comment on above: Result Comment: Perf ormed at [place] [address] [place] [address] Performed By: #### B 12 #### [place] [address] [place] [address] Basophils/100 WBC (Bld) 0.70 % Normal 0-1 [facility] Comment on above: Performed By: #### B 12 #### [place] [address] [place] [address] DIFF TYPE AUTO DIFF Normal [facility] Comment on above: Performed By: #### B 12 #### [address] [place] [address] [place] [address] Eosinophils/100 WBC (Bld) 0.70 % Normal 0-3 [facility] Comment on above: Performed By: #### B 12 #### [address] [place] [place] [address] Erythrocyte distribution width (RBC) [Ratio] 12.6 % Normal 11.7-15.0 [facility] Comment on above: Performed By: #### B 12 #### [address] [place] [address] [place] [address] Hematocrit (Bld) [Volume fraction] 43.5 % Normal 36-44 [facility] Comment on above: Performed By: #### B 12 #### [address] [place] [place] [address] Hemoglobin (Bld) [Mass/Vol] 13.8 g/dL Normal 12.0-15.0 [facility] Comment on above: Performed By: #### B 12 #### [address] [place] [address] [place] [address] Lymphocytes (Bld) [#/Vol] 4.47 10*3/uL High 1.2-3.2 [facility] Comment on above: Performed By: #### B 12 #### [facility] [address] [place] [address] Lymphocytes/100 WBC (Bld) 34.90 % Normal 20-40 [facility] Comment on above: Performed By: #### B 12 #### [facility] [address] [place] [address] MCH (RBC) [Entitic mass] 29.2 pg Normal 26-34 [facility] Comment on above: Performed By: #### B 12 #### [facility] [place] [address] [place] [address] MCHC 31.7 % Normal 31-37 [facility] Comment on above: Performed By: #### B 12 #### [address] [address] [place] [address] MCV (RBC) [Entitic vol] 92.2 fL Normal 80-100 [facility] Comment on above: Performed By: #### B 12 #### [facility] [address] [place] [address] MEAN PLT VOL 11.5 CU Normal 7.0-12.6 [facility] Comment on above: Performed By: #### B 12 #### [address] [place] [address] [place] [address] Monocytes (Bld) [#/Vol] 0.93 10*3/uL High 0-0.8 [facility] Comment on above: Performed By: #### B 12 #### [facility] [address] [place] [address] Monocytes/100 WBC (Bld) 7.30 % Normal 0-8 [facility] Comment on above: Performed By: #### B 12 #### [facility] [address] [place] [address] Neutrophils/100 WBC (Bld) 0.30 % Normal 0.0-1.0 [facility] Comment on above: Performed By: #### B 12 #### [facility] [address] [place] [address] Neutrophils/100 WBC (Bld) 56.10 % Normal 50-70 [facility] Comment on above: Performed By: #### B 12 #### [place] [address] [place] [address] NRBC'S 0 /100 WBC Normal 0 [facility] Comment on above: Performed By: #### B 12 #### [place] [address] [place] [address] Platelets (Bld) [#/Vol] 381 10*3/uL Normal 150-450 [facility]. Other Comment on above: Performed By: #### B 12 #### [address] [place] [place] [address] RBC (Bld) [#/Vol] 4.72 10*6/uL Normal 4.0-4.9 [facility] Comment on above: Performed By: #### B 12 #### [address] [place] [place] [address] RDW-SD 43.1 FL Normal 37.0-54.0 [facility] Comment on above: Performed By: #### B 12 #### [address] [place] [place] [address] WBC (Bld) [#/Vol] 12.8 10*3/uL High 4.5-11.0 [facility] Comment on above: Performed By: #### B 12 #### [place] [place] [address] Differential cell count method Nom (Bld) AUTO DIFF [facility] Other Erythrocyte distribution width (RBC) [Entitic vol] 43.1000 fL 37.0-54.0 FL [facility] Other Erythrocyte distribution width (RBC) [Ratio] 12.600 % 11.7-15.0 % [facility]. Other Hematocrit (Bld) [Volume fraction] 43.500 % 36-44 % [facility] Other Hemoglobin (Bld) [Mass/Vol] 13.7393136 g/dL 12.0-15.0 GM/DL [facility] Other MCH (RBC) [Entitic mass] 29.2000 pg 26-34 PG [facility]. Other MCHC (RBC) [Mass/Vol] 31.7 % 31-37 % [facility] Other MCV (RBC) [Entitic vol] 92.2000 fL 80-100 FL [facility] Other Nucleated RBC/100 WBC (Bld) [Ratio] 0 /100 WBC 0 /100 WBC [facility] Other Platelet mean volume (Bld) [Entitic vol] 11.5 CU 7.0-12.6 CU [facility] Other RBC (Bld) [#/Vol] 4.4020139 10*6/uL 4.0-4.9 M/U L [facility] Other WBC (Bld) [#/Vol] 12.064684 10*3/uL High 4.5-1 1.0 K/UL [facility] Other CBC with Diff Performed at [address] [address] [facility] Other COMPREHENSIVE METABOLIC PANE Esa 08-26-2022 Albumin [Mass/Vol] 4.2 g/dL Normal 3.5-5.0 [facility] Comment on above: Performed By: #### C ELECTORATE OFFICER #### Main Laboratory [address] [address] Albumin/Globulin [Mass ratio] 1.2 {ratio} Low 1.5-3.0 [facility] Comment on above: Performed By: #### C ELECTORATE OFFICER #### [facility] [place] [address] [place] [address] ALP [Catalytic activity/Vol] 68 U/L Normal 35-125 [facility] Comment on above: Performed By: #### C ELECTORATE OFFICER #### [facility] [place] [place] [address] Bilirubin [Mass/Vol] 0.7 mg/dL Normal 0.1-1.2 [facility] Comment on above: Performed By: #### C ELECTORATE OFFICER #### [facility] [place] [address] [place] [address] Calcium [Mass/Vol] 9.3 mg/dL Normal 8.5-10.4 [facility] Comment on above: Performed By: #### C ELECTORATE OFFICER #### [facility] [place] [address] [place] [address] Creatinine [Mass/Vol] 1.0 mg/dL Normal 0.4-1.6 [facility] Comment on above: Performed By: #### C ELECTORATE OFFICER #### [facility] [place] [address] [place] [facility] [address] ESTIMATED GFR 71 mL/min/1.73 m2 Normal [facility] Comment on above: Result Comment: CALCULATIONS OF ESTIMATED GFR ARE PERFORMED USING THE 2020 CKD-EPI STUDY REFIT EQUATION WITHOUT THE RACE VARIABLE FOR THE IDMS-TRACEABLE CREATININE METHODS. https://jasn.asnjournals.org/content//ASN.6584484 988 Performed at [address] [place] [address] Performed By: #### C ELECTORATE OFFICER #### [facility] [place] [address] [facility] [address] Globulin (S) [Mass/Vol] 3.4 g/dL Normal 1.9-3.7 [facility] Comment on above: Performed By: #### C ELECTORATE OFFICER #### [facility] [place] [address] [place] [address] Potassium [Moles/Vol] 4.2 mmol/L Normal 3.4-5.1 [facility] Comment on above: Performed By: #### C ELECTORATE OFFICER #### [address] [address] Protein [Mass/Vol] 7.6 g/dL Normal 5.9-7.9 [facility] Comment on above: Performed By: #### C ELECTORATE OFFICER #### [address] [address] Urea nitrogen/Creatinine [Mass ratio] 15.0 mg/mg Normal 8-21 [facility] Comment on above: Performed By: #### C ELECTORATE OFFICER #### [address] [address] Panel, Comprehensive Metabol icon 08-26-2022 Albumin/Globulin [Mass ratio] 1.0214490 {ratio} Low 1.5-3.0 RATIO [facility] Other ALP (Bld) [Catalytic activity/Vol] 68 U/L 35-125 U/L [facility] Other ALT [Catalytic activity/Vol] 23 U/L Normal 5-40 [facility] Other Comment on above: Performed By: #### C ELECTORATE OFFICER #### [address] [address] Anion gap [Moles/Vol] 12 mmol/L Normal 0-19 [facility] Other Comment on above: Performed By: #### C ELECTORATE OFFICER #### [address] [address] AST [Catalytic activity/Vol] 35 U/L Normal 5-40 [facility] Other Comment on above: Performed By: #### C ELECTORATE OFFICER #### [address] [address] Bilirubin [Mass/Vol] 0.5979915 mg/dL 0.1- 1.2 MG/DL [facility] Other Calcium [Mass/Vol] 9.2007949 mg/dL 8.5-10 .4 MG/DL [facility] Other Chloride [Moles/Vol] 100 mmol/L Normal 97-107 [facility] Other Comment on above: Performed By: #### C ELECTORATE OFFICER #### [address] [address] CO2 [Moles/Vol] 26 mmol/L Normal 24-31 [facility] Other Comment on above: Performed By: #### C ELECTORATE OFFICER #### [address] [address] Creatinine [Mass/Vol] 1.3941441 mg/dL 0.4-1.6 MG/DL [facility] Other GFR/1.73 sq M.predicted MDRD (S/P/Bld) [Vol rate/Area] Performed at [address] [address] [facility] Other Globulin (S) [Mass/Vol] 3.618787 g/dL 1.9-3.7 G/DL [facility] Other Glucose [Mass/Vol] 101 mg/dL High 65-99 [facility] Other Comment on above: Performed By: #### C ELECTORATE OFFICER #### [address] [address] Potassium [Moles/Vol] 4.50127126 mmol/L 3.4-5.1 MMOL/L [facility] Other Protein [Mass/Vol] 4.3477666 g/dL 3.5-5.0 GM/DL [facility] Other Protein [Mass/Vol] 7.713228 g/dL 5.9-7.9 G/DL [facility]. Other Sodium [Moles/Vol] 138 mmol/L Normal 133-145 [facility] Other Comment on above: Performed By: #### C ELECTORATE OFFICER #### [facility] [id number] [place] [address] Urea nitrogen [Mass/Vol] 15 mg/dL Normal 8-25 [facility] Other Comment on above: Performed By: #### C ELECTORATE OFFICER #### [address] [address] Urea nitrogen/Creatinine [Mass ratio] 15.0439387 mg/mg 8-21 RATIO [facility] Other URINE DRUG SCREENon 06-23-20 22 AMPHETAMINE/ECSTASY Negative [facility] Comment on above: Performed By: #### B MP #### [address] [address] BARBITURATE Negative [facility] Comment on above: Performed By: #### B MP #### [address] [address] BENZODIAZEPINE Negative [facility] Comment on above: Performed By: #### B MP #### [address] [address] COCAINE METABOLITES Negative [facility] Comment on above: Performed By: #### B MP #### [facility] [address] [place] [address] METHADONE Negative [facility] Comment on above: Performed By: #### B MP #### [facility] [address] [address] OPIATE Negative [facility] Comment on above: Performed By: #### B MP #### [address] [address] OXYCODONE [facility] Comment on above: Result Comment: NEGA TIVE Performed at [address] [address] Performed By: #### B MP #### [address] [address] PCP Negative [facility] Comment on above: Performed By: #### B MP #### [address] [address] THC/CANNABINOIDS Negative [facility] Comment on above: Performed By: #### B MP #### [address] [address] COMMENT [facility] Comment on above: Result Comment: Thes e Toxicological Screening Tests provide unconfirmed qualitative measurements to aid in treatment and diagnosis in cases of drug use or overdose. This test is used only for medical purposes. A positive result does not indicate or measure intoxication. For specific test performance or pathologist consultation, please contact the Laboratory. The following threshold concentrations are used for these analyses. Values at or above the threshold concentration are reported as Positive. Values below the threshold are reported as negative. Drug Screening Threshold THC/CANNABINOIDS 50 ng/ml METHADONE 300 ng/ml COCAINE METABOLITES 300 ng/ml BENZODIAZEPINE 300 ng/ml PCP 25 ng/ml OPIATE 300 ng/ml AMPHETAMINE/ECSTASY 1000 ng/ml BARBITURATE 200 ng/ml OXYCODONE 100 ng/ml Performed By: #### B MP #### [address] [address] Vitamin B1,Whole Bldon 02-08 Vitamin B1,Whole Bld 219.1 [facility] Comment on above: Result Comment: Refe rence range: 84.3 to 213.3 Unit: nmol/L This assay measures the concentration of thiamine diphosphate (TDP), the primary active form of vitamin B1. Approximately 90 percent of vitamin B1 present in whole blood is TDP. Thiamine and thiamine monophosphate, which comprise the remaining 10 percent, are not measured. This test was developed and its performance characteristics determined by [facility]'s Mukul Kyle [facility] [place] ([facility]). It has not been cleared or approved by the FDA. [facility] is regulated under CLIA as qualified to perform high-complexity testing. This test is used for clinical purposes. It should not be regarded as investigational or for research. Performed By: [place] [address] Medical Radiation Dosimetrist: Idris Goode III, MD CLIA#: [id number] Phone#: VITAMIN Aon 02-05-2022 VITAMIN A RESULT 0.43 Normal [facility] Comment on above: Result Comment: Refe rence range: 0.30 to 1.20 Unit: mg/L This test was developed and its performance characteristics determined by [facility] [place] ([facility]). It has not been cleared or approved by the FDA. [facility] is regulated under CLIA as qualified to perform high-complexity testing. This test is used for clinical purposes. It should not be regarded as investigational or for research. Performed By: [place] [address] Medical Radiation Dosimetrist: Idris Goode III, MD CLIA#: [id number] Phone#: VITAMIN Blaine 02-05-2022 Vitamin E-alpha 10.3 [facility] Comment on above: Result Comment: Refe rence range: 6.0 to 23.0 Unit: mg/L Vitamin E-gamma 2.3 [facility] Comment on above: Result Comment: Refe rence range: 0.3 to 3.2 Unit: mg/L This test was developed and its performance characteristics determined by [facility]'s [facility] [place] ([facility]). It has not been cleared or approved by the FDA. [facility] is regulated under CLIA as qualified to perform high-complexity testing. This test is used for clinical purposes. It should not be regarded as investigational or for research. Performed By: [place] [address] Medical Radiation Dosimetrist: Idris Goode III, MD CLIA#: [id number] Phone#: ZINC LEVELon 02-04-2022 ZINC 61 [facility] Comment on above: Result Comment: Refe rence range: 60 to 120 Unit: ug/dL This test was developed and its performance characteristics determined by [facility]'s [facility] [place] ([facility]). It has not been cleared or approved by the FDA. -[facility] is regulated under CLIA as qualified to perform high-complexity testing. This test is used for clinical purposes. It should not be regarded as investigational or for research. Performed By: [facility] [address] [place] [address] Medical Radiation Dosimetrist: Idris Goode III, MD CLIA#: [id number] Phone#: CBC with Diffon 02-02-2022 AB IMMATURE NEUT 0.10 K/UL Normal 0.0-0.1 [facility] Comment on above: Performed By: #### B MP #### [address] [address] ABS BASO 0.08 K/UL Normal 0.00-0.22 [facility] Comment on above: Performed By: #### B MP #### [address] [address] ABS EOS 0.05 K/UL Normal 0-0.45 [facility] Comment on above: Performed By: #### B MP #### [address] [address] ABS NEUTROPHILS 8.39 K/UL High 1.8-7.7 [facility] Comment on above: Performed By: #### B MP #### [facility] [address] [address] ABS.NEUT.CALCULATED 8.39 K/UL Normal [facility] Comment on above: Result Comment: Perf ormed at [address] [address] Performed By: #### B MP #### [facility] [address] [address] Basophils/100 WBC (Bld) 0.60 % Normal 0-1 [facility] Comment on above: Performed By: #### B MP #### [address] [place] [address] DIFF TYPE AUTO DIFF Normal [facility] Comment on above: Performed By: #### B MP #### [facility] [address] [address] [place] [address] Eosinophils/100 WBC (Bld) 0.40 % Normal 0-3 [facility] Comment on above: Performed By: #### B MP #### [facility] [address] [address] [place] [address] Erythrocyte distribution width (RBC) [Ratio] 12.1 % Normal 11.7-15.0 [facility] Comment on above: Performed By: #### B MP #### [facility] [address] [address] [place] [address] Hematocrit (Bld) [Volume fraction] 42.3 % Normal 36-44 [facility] Comment on above: Performed By: #### B MP #### [address] [address] [place] [address] Hemoglobin (Bld) [Mass/Vol] 13.8 g/dL Normal 12.0-15.0 [facility] Comment on above: Performed By: #### B MP #### [address] [address] [place] [address] Lymphocytes (Bld) [#/Vol] 3.72 10*3/uL High 1.2-3.2 [facility] Comment on above: Performed By: #### B MP #### [address] [address] [place] [address] Lymphocytes/100 WBC (Bld) 28.60 % Normal 20-40 [facility] Comment on above: Performed By: #### B MP #### [facility] [address] [address] [place] [address] MCH (RBC) [Entitic mass] 30.6 pg Normal 26-34 [facility] Comment on above: Performed By: #### B MP #### [facility] [address] [address] [place] [address] MCHC 32.6 % Normal 31-37 [facility] Comment on above: Performed By: #### B MP #### [facility] [address] [address] [place] [address] MCV (RBC) [Entitic vol] 93.8 fL Normal 80-100 [facility] Comment on above: Performed By: #### B MP #### [place] [address] [place] [address] MEAN PLT VOL 10.0 CU Normal 7.0-12.6 [facility] Comment on above: Performed By: #### B MP #### [address] [address] [place] [address] Monocytes (Bld) [#/Vol] 0.68 10*3/uL Normal 0-0.8 [facility] Comment on above: Performed By: #### B MP #### [address] [address] [place] [address] Monocytes/100 WBC (Bld) 5.20 % Normal 0-8 [facility] Comment on above: Performed By: #### B MP #### [address] [address] [place] [address] Neutrophils/100 WBC (Bld) 0.80 % Normal 0.0-1.0 [facility] Comment on above: Performed By: #### B MP #### [address] [address] [place] [address] Neutrophils/100 WBC (Bld) 64.40 % Normal 50-70 [facility] Comment on above: Performed By: #### B MP #### [address] [address] [place] [address] NRBC'S 0 /100 WBC Normal 0 [facility] Comment on above: Performed By: #### B MP #### [address] [address] [place] [address] Platelets (Bld) [#/Vol] 418 10*3/uL Normal 150-450 [facility]. Other Comment on above: Performed By: #### B MP #### [address] [address] [place] [address] RBC (Bld) [#/Vol] 4.51 10*6/uL Normal 4.0-4.9 [facility] Comment on above: Performed By: #### B MP #### [address] [address] RDW-SD 42.2 FL Normal 37.0-54.0 [facility] Comment on above: Performed By: #### B MP #### [facility] [address] [address] WBC (Bld) [#/Vol] 13.0 10*3/uL High 4.5-11.0 [facility] Comment on above: Performed By: #### B MP #### [facility] [address] [address] Differential cell count method Nom (Bld) AUTO DIFF [facility] Other Erythrocyte distribution width (RBC) [Entitic vol] 42.2000 fL 37.0-54.0 FL [facility] Other Erythrocyte distribution width (RBC) [Ratio] 12.100 % 11.7-15.0 % [facility] Other Hematocrit (Bld) [Volume fraction] 42.300 % 36-44 % [facility] Other Hemoglobin (Bld) [Mass/Vol] 13.0729593 g/dL 12.0-15.0 GM/DL [facility]. Other MCH (RBC) [Entitic mass] 30.6000 pg 26-34 PG [facility]. Other MCHC (RBC) [Mass/Vol] 32.6 % 31-37 % [facility]. Other MCV (RBC) [Entitic vol] 93.8000 fL 80-100 FL [facility]. Other Nucleated RBC/100 WBC (Bld) [Ratio] 0 /100 WBC 0 /100 WBC [facility]. Other Platelet mean volume (Bld) [Entitic vol] 10.0 CU 7.0-12.6 CU [facility] Other RBC (Bld) [#/Vol] 4.3317226 10*6/uL 4.0-4.9 M/U L [facility]. Other WBC (Bld) [#/Vol] 13.558191 10*3/uL High 4.5-1 1.0 K/UL [facility]. Other CBC with Diff 8.39 K/UL [facility]. Other CBC with Diff Performed at [address] [address] [facility] Other COMPREHENSIVE METABOLIC PANE Esa 02-02-2022 Albumin [Mass/Vol] 3.9 g/dL Normal 3.5-5.0 [facility] Comment on above: Performed By: #### B 12 #### [facility] [address] [address] Albumin/Globulin [Mass ratio] 1.0 {ratio} Low 1.5-3.0 [facility] Comment on above: Performed By: #### B 12 #### [facility] [address] [address] ALP [Catalytic activity/Vol] 76 U/L Normal 35-125 [facility] Comment on above: Performed By: #### B 12 #### [facility] [address] [address] Bilirubin [Mass/Vol] 0.7 mg/dL Normal 0.1-1.2 [facility] Comment on above: Performed By: #### B 12 #### [facility] [address] [address] Creatinine [Mass/Vol] 1.0 mg/dL Normal 0.4-1.6 [facility] Comment on above: Performed By: #### B 12 #### [address] [address] ESTIMATED GFR 71 mL/min/1.73 m2 Normal [facility] Comment on above: Result Comment: CALCULATIONS OF ESTIMATED GFR ARE PERFORMED USING THE 2020 CKD-EPI STUDY REFIT EQUATION WITHOUT THE RACE VARIABLE FOR THE IDMS-TRACEABLE CREATININE METHODS. https://jasn.asnjournals.org/content//ASN.0345793 988 Performed at [address] [place] [address] Performed By: #### B 12 #### [address] [address] Globulin (S) [Mass/Vol] 3.9 g/dL High 1.9-3.7 [facility] Comment on above: Performed By: #### B 12 #### [address] [address] Potassium [Moles/Vol] 4.6 mmol/L Normal 3.4-5.1 [facility] Comment on above: Performed By: #### B 12 #### [address] [address] Protein [Mass/Vol] 7.8 g/dL Normal 5.9-7.9 [facility] Comment on above: Performed By: #### B 12 #### [address] [address] Urea nitrogen/Creatinine [Mass ratio] 13.0 mg/mg Normal 8-21 [facility] Comment on above: Performed By: #### B 12 #### [address] [address] FOLIC ACIDon 02-02-2022 FOLIC ACID 12.5 NG/ML Normal 4.2-19.9 [facility] Comment on above: Result Comment: Defi cient=<2.1 ng/ml Indeterminate=2.2-4.1 ng/ml Performed at [address] [place] [address] Performed By: #### F A #### [address] [address] Ferritinon 02-02-2022 Ferritin [Mass/Vol] 373 ng/mL High 13-150 [facility]. Other Comment on above: Result Comment: Perf ormed at [address] [address] Performed By: #### B 12 #### Main Laboratory [address] [address] Ferritin [Mass/Vol] Performed at [address] [address] [facility] Other Folic Acid (Folate)on 2021 Folate [Mass/Vol] 12.9680449 ng/mL 4.2-19 .9 NG/ML [facility] Other Folate [Mass/Vol] ng/mL [facility] Other Folate [Mass/Vol] Indeterminate=2.2-4. 1 ng/ml [facility] Other Folate [Mass/Vol] Performed at [id number] [place] [address] Other HEMOGLOBIN A1con 02-02-2022 HbA1c (Bld) [Mass fraction] 5.7 % Normal 4.0-6.0 [facility] Comment on above: Result Comment: Hemo globin A1C levels are related to mean blood glucose during the preceding 2-3 months. The relationship table below may be used as a general guide. Each 1% increase in HGB A1C is a reflection of an increase in mean glucose of approximately 30 mg/dl. Reference: Diabetes Care, volume 29, supplement 1 2005 HGB A1C ................. Approx. Mean Glucose 6% ............................... 120 mg/dl 7% ............................... 150 mg/dl 8% ............................... 180 mg/dl 9% ............................... 210 mg/dl 10% ............................... 240 mg/dl Performed at [address] [address] Performed By: #### B 12 #### [address] [address] Hemoglobin A1Con 02-02-2022 HbA1c (Bld) [Mass fraction] 5.700 % 4.0-6.0 % [facility] Other HbA1c (Bld) [Mass fraction] Hemoglobin A1C levels are related to mean blood glucose during the [facility] Other HbA1c (Bld) [Mass fraction] preceding 2-3 months. The relationship table below may be used as a [facility] Other HbA1c (Bld) [Mass fraction] general guide. Each 1% increase in HGB A1C is a reflection of an [facility] Other HbA1c (Bld) [Mass fraction] increase in mean glucose of approximately 30 mg/dl. [facility] Other HbA1c (Bld) [Mass fraction] Reference: Diabetes Care, volume 29, supplement 1 2005 [facility] Other HbA1c (Bld) [Mass fraction] [facility] Other HbA1c (Bld) [Mass fraction] HGB A1C ................. Approx. Mean Glucose [facility] Other HbA1c (Bld) [Mass fraction] [facility] Other HbA1c (Bld) [Mass fraction] 6% .................... ........... 120 mg/dl [facility] Other HbA1c (Bld) [Mass fraction] 7% .................... ........... 150 mg/dl [facility] Other HbA1c (Bld) [Mass fraction] 8% .................... ........... 180 mg/dl [facility] Other HbA1c (Bld) [Mass fraction] 9% .................... ........... 210 mg/dl [facility] Other HbA1c (Bld) [Mass fraction] 10% .................... ........... 240 mg/dl [facility] Other HbA1c (Bld) [Mass fraction] Performed at [address] [address] [facility] Other IRON PANELon 02-02-2022 TOT.IRON BIND.CAP. 248 UG/DL Normal 228-428 [facility] Comment on above: Performed By: #### B 12 #### [address] [address] TRANSFERRIN % SAT. 20.2 % Normal 12-50 [facility] Comment on above: Result Comment: Perf ormed at [address] [place] [address] Performed By: #### B 12 #### [address] [address] LIPID PANELon 02-02-2022 CHOL HDL RATIO 4.8 RATIO [facility] Comment on above: Result Comment: Acco rding to the [place] [employer], the goal is to maintain the total cholesterol/HDL ratio at 5-to-1 or lower with an optimum ratio of 3.5-to-1. Performed at [address] [place] [address] Performed By: #### B MP #### [address] [address] SERUM CLARITY CLEAR [facility] Comment on above: Performed By: #### B MP #### [address] [address] TRIGLYCERIDE G.B. 166 MG/DL High 40-150 [facility] Comment on above: Performed By: #### B MP #### [address] [address] PT. PREPARATION FASTING [facility] Comment on above: Performed By: #### B MP #### [address] [address] SERUM COLOR YELLOW [facility] Comment on above: Performed By: #### B MP #### [address] [address] PT AND PTTon 02-02-2022 ANTICOAGULANT INFORMATION NOT REPORTED TO [facility] Comment on above: Performed By: #### B 12 #### [address] [address] aPTT Coag (Bld) [Time] 27.2 s Normal 22.0-32.5 [facility] Comment on above: Result Comment: Perf ormed at [address] [address] Performed By: #### B 12 #### [address] [address] PT Coag (PPP) [Time] 11.1 s Normal 9.3-12.7 [facility] Comment on above: Performed By: #### B 12 #### [address] [address] PT and PTTon 02-02-2022 INR Coag (PPP) [Relative time] 1.0 {INR} Normal 0.86-1.16 [facility] Other Comment on above: Result Comment: INR Theraputic Range: 2.0-3.5 Performed By: #### B 12 #### [address] [address] aPTT Coag (PPP) [Time] 27.27500 s 22.0-32.5 SEC [facility] Other aPTT Coag (PPP) [Time] Performed at [address] [address] [facility] Other INR Coag (PPP) [Relative time] INR Theraputic Range: 2.0-3.5 [facility] Other PT Coag (PPP) [Time] 11.64677 s 9.3-12.7 SEC [facility] Other PT and PTT INFORMATION NOT REPORTED TO LABORATORY [facility]. Other PTH,INTACT BATTERYon 022 PTH,INTACT 27 PG/ML Normal 15-65 [facility] Comment on above: Performed By: #### P THI #### [address] [place] [address] Calcium [Mass/Vol] 9.2 mg/dL Normal 8.5-10.4 [facility] Comment on above: Performed By: #### P THI #### [facility] [address] [place] [address] Performed By: #### B 12 #### [address] [place] [address] [address] [facility] [address] Phosphate [Mass/Vol] 3.2 mg/dL Normal 2.5-4.5 [facility] Comment on above: Result Comment: Perf ormed at [facility] [address] [place] [address] Performed By: #### P THI #### [place] [address] [place] [address] Panel, Comprehensive Metabol icon 02-02-2022 ALT [Catalytic activity/Vol] 49 U/L High 5-40 [facility] Other Comment on above: Performed By: #### B 12 #### [address] [address] [place] [address] Anion gap [Moles/Vol] 14 mmol/L Normal 0-19 [facility] Other Comment on above: Performed By: #### B 12 #### [place] [address] [place] [address] AST [Catalytic activity/Vol] 46 U/L High 5-40 S [facility] Other Comment on above: Performed By: #### B 12 #### [facility] [address] [place] [address] Chloride [Moles/Vol] 99 mmol/L Normal 97-107 [facility] Other Comment on above: Performed By: #### B 12 #### [address] [address] [place] [address] CO2 [Moles/Vol] 24 mmol/L Normal 24-31 S [facility] Other Comment on above: Performed By: #### B 12 #### [facility] [address] [place] [address] Glucose [Mass/Vol] 84 mg/dL Normal 65-99 [facility] Other Comment on above: Performed By: #### B 12 #### [address] [address] Sodium [Moles/Vol] 136 mmol/L Normal 133-145 [facility] Other Comment on above: Performed By: #### B 12 #### [address] [address] Urea nitrogen [Mass/Vol] 13 mg/dL Normal 8-25 [facility] Other Comment on above: Performed By: #### B 12 #### [address] [address] Albumin/Globulin [Mass ratio] 1.1943875 {ratio} Low 1.5-3.0 RATIO [facility] Other ALP (Bld) [Catalytic activity/Vol] 76 U/L 35-125 U/L [facility] Other Bilirubin [Mass/Vol] 0.5597618 mg/dL 0.1- 1.2 MG/DL [facility]. Other Calcium [Mass/Vol] 9.4920678 mg/dL 8.5-10 .4 MG/DL [facility]. Other Creatinine [Mass/Vol] 1.1418581 mg/dL 0.4-1.6 MG/DL [facility]. Other GFR/1.73 sq M.predicted MDRD (S/P/Bld) [Vol rate/Area] 71.25808736256741521 mL/min/{1.73_m2} [facility] Other GFR/1.73 sq M.predicted MDRD (S/P/Bld) [Vol rate/Area] [facility] Other GFR/1.73 sq M.predicted MDRD (S/P/Bld) [Vol rate/Area] CALCULATIONS OF ESTIMATED GFR ARE PERFORMED USING THE 2020 CKD-EPI [facility] Other GFR/1.73 sq M.predicted MDRD (S/P/Bld) [Vol rate/Area] STUDY REFIT EQUATION WITHOUT THE RACE VARIABLE FOR THE IDMS-TRACEABLE [facility] Other GFR/1.73 sq M.predicted MDRD (S/P/Bld) [Vol rate/Area] CREATININE METHODS. [facility] Other GFR/1.73 sq M.predicted MDRD (S/P/Bld) [Vol rate/Area] https://jasn.asnjour [facility].org/content/ear ly//ASN.20 [id number] [facility] Other GFR/1.73 sq M.predicted MDRD (S/P/Bld) [Vol rate/Area] Performed at [address] [address] [facility] Other Globulin (S) [Mass/Vol] 3.133341 g/dL High 1.9-3.7 G/DL [facility] Other Potassium [Moles/Vol] 4.12651793 mmol/L 3.4-5.1 MMOL/L [facility] Other Protein [Mass/Vol] 7.537894 g/dL 5.9-7.9 G/DL [facility] Other Protein [Mass/Vol] 3.4020113 g/dL 3.5-5.0 GM/DL [facility] Other Urea nitrogen/Creatinine [Mass ratio] 13.5095226 mg/mg 8-21 RATIO [facility] Other Panel, Ironon 02-02-2022 Iron [Mass/Vol] 50 ug/dL Normal 30-160 [facility] Other Comment on above: Performed By: #### B 12 #### [address] [address] Iron binding capacity [Mass/Vol] 248 UG/DL 228-428 UG/DL [facility] Other Iron saturation [Mass fraction] 20.2 % 12-50 % [facility] Other Iron saturation [Mass fraction] Performed at [address] [address] [facility] Other Panel, Lipidon 02-02-2022 Cholesterol [Mass/Vol] 176 mg/dL Normal 133-200 [facility] Other Comment on above: Performed By: #### B MP #### [address] [address] Cholesterol in HDL [Mass/Vol] 37 mg/dL Low >50 [facility] Other Comment on above: Result Comment: [place] onal Cholesterol Education Program(NCFP)guidelines: <40 mg/dl:Low HDL-cholesterol(major risk factor for CHD) >60 mg/dl:High HDL-cholesterol( negative risk factor for CHD) HDL-cholesterol is affected by a number of factors,e.g.,smoking, exercise,hormones,sex and age. Performed By: #### B MP #### [facility] [id number] [place] [id number] Cholesterol in LDL [Mass/Vol] 106 mg/dL Normal 65-130 [facility] Other Comment on above: Performed By: #### B MP #### [facility] [id number] [place] [id number] Appearance (P) CLEAR [facility] Other Cholesterol in HDL [Mass/Vol] National Cholesterol Education Program(NCFP)guideli ivy: [facility]. Other Cholesterol in HDL [Mass/Vol] <40 mg/dl:Low HDL-cholesterol(sarai r risk factor for CHD) [facility]. Other Cholesterol in HDL [Mass/Vol] >60 mg/dl:High HDL-cholesterol( neg ative risk factor for CHD) [facility]. Other Cholesterol in HDL [Mass/Vol] HDL-cholesterol is affected by a number of factors,e.g.,smoking , [facility] Other Cholesterol in HDL [Mass/Vol] exercise,hormones,se x and age. [facility] Other Cholesterol.total/Ch olesterol in HDL [Mass ratio] [id number] {ratio} [facility]. Other Cholesterol.total/Ch olesterol in HDL [Mass ratio] According to the [place] [employer], the goal is to maintain [facility] Other Cholesterol.total/Ch olesterol in HDL [Mass ratio] the total cholesterol/HDL ratio at 5-to-1 or lower with an optimum [facility] Other Cholesterol.total/Ch olesterol in HDL [Mass ratio] ratio of 3.5-to-1. [facility] Other Cholesterol.total/Ch olesterol in HDL [Mass ratio] Performed at [address] Other Color (Spun body fld) YELLOW [facility] Other Triglyceride [Mass/Vol] 166 mg/dL High 40-150 MG/DL [facility] Other Panel, Lipid FASTING [facility] Other TSHon 02-02-2022 TSH 0.34 MIU/L Normal 0.27-4.20 [facility] Comment on above: Result Comment: Perf ormed at [place] [address] Performed By: #### B 12 #### [place] [address] TSH with Reflex to T4 Freeon 02-02-2022 TSH Qn 0.34 MIU/L 0.27-4.20 MIU/L [facility] Other TSH Qn Performed at [address] Other VITAMIN D 25 HYDROXYon 02-02 VITAMIN D 25 HYDROXY 28 ng/mL Low 31-100 [facility] Comment on above: Result Comment: Perf ormed at [place] [address] Performed By: #### B 12 #### [place] [address] VITAMIN Blaine 02-02-2022 VITAMIN E 10.3 [facility] Other VITAMIN E Reference range: 6.0 to 23.0 [facility] Other VITAMIN E Unit: mg/L [facility]. Other VITAMIN E 2.3 [facility]. Other VITAMIN E Reference range: 0.3 to 3.2 [facility]. Other Vitamin Aon 02-02-2022 Retinol [Mass/Vol] 0.43 [facility]. Other Retinol [Mass/Vol] Reference range: 0.30 to 1.20 [facility] Other Retinol [Mass/Vol] Unit: mg/L [facility] Other Retinol [Mass/Vol] [facility]. Other Retinol [Mass/Vol] This test was developed and its performance characteristics [facility]. Other Retinol [Mass/Vol] determined by [facility]'s Mukul Celaya Pathology and [facility]. Other Retinol [Mass/Vol] Laboratory [facility] [place] ([facility]). It has not been cleared or [facility]. Other Retinol [Mass/Vol] approved by the FDA. [facility] is regulated under CLIA as qualified to [facility]. Other Retinol [Mass/Vol] perform high-complexity testing. This test is used for clinical [facility]. Other Retinol [Mass/Vol] purposes. It should not be regarded as investigational or for [facility]. Other Retinol [Mass/Vol] research. [facility] Other Retinol [Mass/Vol] Performed By: [facility] mymission2 [facility]. Other Retinol [Mass/Vol] [facility]. Other Retinol [Mass/Vol] [address] [facility] Other Retinol [Mass/Vol] [place] [address] [facility] Other Retinol [Mass/Vol] Medical Radiation Dosimetrist: Idris Goode III, MD [facility] Other Retinol [Mass/Vol] CLIA#: [id number] [facility] Other Retinol [Mass/Vol] Phone#: [facility] Other Vitamin B12 (Performed at [facility])on 02-02-2022 Cobalamin (Vitamin B12) [Mass/Vol] 547 pg/mL Normal 211-946 [facility] Other Comment on above: Result Comment: Defi cient=<174 pg/ml Wdmrzkkubupyi=095-909 pg/ml Performed at [address] [address] Performed By: #### B 12 #### [facility] [address] [address] Cobalamin (Vitamin B12) [Mass/Vol] pg/mL [facility] Other Cobalamin (Vitamin B12) [Mass/Vol] Yanlzkvnbiygw=960-39 2 pg/ml [facility] Other Cobalamin (Vitamin B12) [Mass/Vol] Performed at [address] [address] [facility] Other Vitamin D 25 Hydroxy (Perfor med at [facility])on 02-02-2022 25-hydroxyvitamin D3 [Mass/Vol] 28 ng/mL Low 31-100 ng/mL [facility] Other 25-hydroxyvitamin D3 [Mass/Vol] Performed at [facility] [address] [facility] [address] [facility] Other Zinc Levelon 02-02-2022 Zinc Level 61 [facility] Other Zinc Level Reference range: 60 to 120 [facility] Other Zinc Level Unit: ug/dL [facility] Other Zinc Level [facility] Other Zinc Level This test was developed and its performance characteristics [facility] Other Zinc Level determined by [facility]'s Mukul Celaya Pathology and [facility] Other Zinc Level Laboratory [facility] [place] ([facility]). It has not been cleared or [facility]. Other Zinc Level approved by the FDA. [facility] is regulated under CLIA as qualified to [facility] Other Zinc Level perform high-complexity testing. This test is used for clinical [facility] Other Zinc Level purposes. It should not be regarded as investigational or for [facility]. Other [facility] [employer] research. [facility] Other Zinc Level Performed By: [facility] Other Zinc Level [facility] Other Zinc Level [address] [facility] [place] [address] [facility]. Other Zinc [employer] Medical Radiation Dosimetrist: Idris Goode III, MD [facility] Other Zinc Level CLIA#: [id number] [facility] Other Zinc Level Phone#: [facility]. Other VIVIANE CHELSIE Roland JORDAN LTon [facility] [facility] US BREAST LTD LTon 2 [facility] Lab Report: T4 Free Directon 02-10-2017 Thyroxine (T4) free 0.38 ng/dL Low 0.76-1.46 [facility] Work Phone: Lab Report: Thyroid Stim Hor yeimy (TSH)on 02-10-2017 Thyroid stimulating hormone (TSH) 103.00 u[iU]/mL High 0.358-3.74 [facility] Work Phone: Office Visit: thyroid consul ton 02-10-2017 Adolescent depression screening assessment Adolescent depression screening assessment Invalid Interpretation Code [facility] Work Phone: Adult depression screening assessment Adult depression screening assessment [facility] Work Phone: Adult depression screening assessment Adolescent depression screening assessment [facility] Work Phone: Dietary management education, guidance, and counseling (procedure) yes Invalid Interpretation Code [facility] Work Phone: Documentation of current medications (procedure) Done Invalid Interpretation Code [facility] Work Phone: PHQ-9 quick depression assessment panel [Reported.PHQ] Adult depression screening assessment [facility] Work Phone: Protein mass conc Done [facility] Work Phone: Tobacco smoking status NHIS Never [facility] Work Phone: Tobacco smoking status NHIS Never smoker [facility] Work Phone: Tobacco use CPHS Never smoker Invalid Interpretation Code [facility] Work Phone: Office Visit: Swellig of rig ht prox LE & FB in right legon 09-22-2016 Dietary management education, guidance, and counseling (procedure) yes Invalid Interpretation Code [facility] Work Phone: Documentation of current medications (procedure) Done Invalid Interpretation Code [facility] Work Phone: Tobacco use CPHS Never smoker Invalid Interpretation Code [facility] Work Phone: Office Visit: Malenariaalyssa of rig ht prox LE & FB in right legon 10-16-2012 Colonoscopy (procedure) Colonoscopy (procedure) Invalid Interpretation Code [facility] Work Phone: Protein mass conc Colonoscopy (procedure) [facility] Work Phone: Lab Report: CBCDon 0 Erythrocytes (RBC) 4.17 10*6/uL Low 4.2-5.4 [facility] Work Phone: Hematocrit (HCT) 36.9 % Low 37-47 [facility] Work Phone: Hematocrit Volume Fraction (Bld) 36.9 % Low 37-47 [facility] Work Phone: Hemoglobin (HGB) 12.6 g/dL Normal 12.0-16.0 [facility] Work Phone: Platelets 379 10*3/mm3 Normal 150-450 [facility] Work Phone: Platelets #/vol (Bld) 379 10*3/mm3 Normal 150-450 [facility] Work Phone: RBC #/vol (Bld) 4.17 10*6/uL Low 4.2-5.4 [facility] Work Phone: WBC #/vol (Bld) 8.6 10*3/uL Normal 4.4-11.0 [facility] Work Phone: WBC (Leukocytes) 8.6 10*3/uL Normal 4.4-11.0 [facility] Work Phone: Lab Report: [facility] 07-28-2010 Alanine aminotransferase (ALT) 62 U/L Normal 12-78 [facility] Work Phone: Albumin 3.1 g/dL Low 3.4-5.0 [facility] Work Phone: Alkaline phosphatase (ALP) 56 U/L Normal 50-136 [facility] Work Phone: ALP enzyme act/vol (Bld) 56 U/L Normal 50-136 [facility] Work Phone: Aspartate aminotransferase (AST) 23 U/L Normal 15-37 [facility] Work Phone: Bilirubin (total) 0.90 mg/dL Normal 0.00-1.00 [facility] Work Phone: Calcium 8.3 mg/dL Low 8.5-10.1 [facility] Work Phone: Chloride 100 mmol/L Normal 98-107 [facility] Work Phone: Creatinine 1.0 mg/dL Normal 0.6-1.0 [facility] Work Phone: Glucose 74 mg/dL Normal 70-110 [facility] Work Phone: Glucose mass conc 74 mg/dL Normal 70-110 [facility] Work Phone: Potassium 4.3 mmol/L Normal 3.5-5.1 [facility] Work Phone: Sodium 139 mmol/L Normal 136-145 [facility] Work Phone: Urea nitrogen 17 mg/dL Normal 7-18 [facility] Work Phone: Lab Report: LIPIDon 07-28-20 10 Cholesterol 156 mg/dL Normal 200 [facility] Work Phone: HDL Cholesterol 38 mg/dL Low [facility] Work Phone: LDL Cholesterol 80 mg/dL Normal 0-130 [facility] Work Phone: Triglyceride 191 mg/dL Normal [facility] Work Phone: very low density lipoproteins 38 mg/dL Normal 5-40 [facility] Work Phone: Office Visit: Albert trejo prox LE & FB in right legon 10-13-2009 General categories [interpretation] of Cervical or vaginal smear or scraping by Cyto stain hysterectomy [facility] Work Phone: Vital Signs Date Time Vital Sign Value Performing Clinician Facility 12-06-2023 10:57-0500 Body weight 62.6 kg Gudelia Mi MD Work Phone: [facility] 12-06-2023 10:57-0500 Diastolic blood pressure 58 mm[Hg] Gudelia Mi MD Work Phone: [facility] 12-06-2023 10:57-0500 Systolic blood pressure 102 mm[Hg] Gudelia Mi MD Work Phone: [facility] 11-24-2023 10:12-0500 Body height 152.4 cm Anaid Garsia MD Work Phone: [facility] 11-24-2023 10:12-0500 Body mass index (BMI) [Ratio] 26.56 kg/m2 Anaid Garsia MD Work Phone: [facility] 11-24-2023 10:12-0500 Body weight 61.69 kg Anaid Garsia MD Work Phone: [facility] Comment on above: START WT: 208 IDEAL WT: 130 START EXCESS : 78 TOTAL WT LOSS: 72 EWL: 92 % HT: 60 IN 11-24-2023 10:12-0500 Diastolic blood pressure 87 mm[Hg] Anaid Garsia MD Work Phone: [facility] 11-24-2023 10:12-0500 Heart rate 75 /min Anaid Garsia MD Work Phone: [facility] 11-24-2023 10:12-0500 Systolic blood pressure 128 mm[Hg] Anaid Garsia MD Work Phone: [facility] 05-30-2023 13:00-0400 Diastolic blood pressure 76 mm[Hg] Sylvia Ayala DO Work Phone: [facility] 05-30-2023 13:00-0400 Systolic blood pressure 117 mm[Hg] Sylvia Billow DO Work Phone: [facility] 05-26-2023 09:00-0400 Body height 152.4 cm ANAID RUY-ALISTAIR Other [facility] [employer] Other 05-26-2023 09:00-0400 Body mass index (BMI) [Ratio] 25.58 kg/m2 ANAID RUY-ALISTAIR Other [facility] [employer]. Other 05-26-2023 09:00-0400 Body weight 59.42 kg ANAID RUY-ALISTAIR Other [facility] [employer] Other 05-26-2023 08:00-0400 Diastolic blood pressure 79 mm[Hg] ANAID RUY-ALISTAIR Other [facility] [employer] Other 05-26-2023 08:00-0400 Heart rate 63 /min ANAID RUY-ALISTAIR Other [facility] [employer] Other 05-26-2023 08:00-0400 Systolic blood pressure 121 mm[Hg] ANAID RUY-ALISTAIR Other [facility] [employer] Other 04-25-2023 10:08-0400 Diastolic blood pressure 83 mm[Hg] Sylvia Billow DO Work Phone: [facility] 04-25-2023 10:08-0400 Heart rate 70 /min Sylvia Billow DO Work Phone: [facility] 04-25-2023 10:08-0400 Systolic blood pressure 121 mm[Hg] Sylvia Billow DO Work Phone: [facility] 03-23-2023 08:46-0400 Body weight 65.32 kg Gudelia Rishi MD Work Phone: [facility] 03-23-2023 08:46-0400 Diastolic blood pressure 62 mm[Hg] Gudelia Mi MD Work Phone: [facility] 03-23-2023 08:46-0400 Systolic blood pressure 110 mm[Hg] Gudelia Mi MD Work Phone: [facility] 03-09-2023 09:19-0400 Body height 151.8 cm Gudelia Mi MD Work Phone: [facility] 03-09-2023 09:190400 Body weight 61.69 kg Gudelia Mi MD Work Phone: [facility] 03-09-2023 09:19-0400 Diastolic blood pressure 60 mm[Hg] Gudelia Mi MD Work Phone: [facility] 03-09-2023 09:19-0400 Heart rate 68 /min Gudelia Mi MD Work Phone: [facility] 03-09-2023 09:19-0400 Respiratory rate 16 /min Gudelia Mi MD Work Phone: [facility] 03-09-2023 09:19-0400 SaO2% (BldA) [Mass fraction] 99 % Gudelia Mi MD Work Phone: [facility] 03-09-2023 09:19-0400 Systolic blood pressure 110 mm[Hg] Gudelia Mi MD Work Phone: [facility] 11-01-2022 16:30-0500 Body height 152.4 cm STARR MCGINNIS Other [facility] [employer] Other 11-01-2022 16:30-0500 Body mass index (BMI) [Ratio] 33.78 kg/m2 STARR MCGINNIS Other [facility] [employer] Other 11-01-2022 16:30-0500 Body weight 78.47 kg STARR FISTEK Other [facility] [employer] Other 11-01-2022 16:30-0500 Diastolic blood pressure 85 mm[Hg] STARR FISTEK Other [facility] [employer] Other 11-01-2022 16:30-0500 Heart rate 76 /min STARR FISTEK Other [facility] [employer] Other 11-01-2022 16:30-0500 Systolic blood pressure 125 mm[Hg] STARR FISTEK Other [facility] [employer] Other 11-01-2022 15:30-0500 Body height 152.4 cm ANAID RUY-ALISTAIR Other [facility] [employer] Other 11-01-2022 15:30-0500 Body mass index (BMI) [Ratio] 33.78 kg/m2 ANAID RUY-ALISTAIR Other [facility] [employer] Other 11-01-2022 15:30-0500 Body weight 78.47 kg ANAID RUY-ALISTAIR Other [facility] [employer] Other 10-18-2022 10:00-0500 Body height 152.4 cm STARR FISTEK Other [facility] [employer] Other 10-18-2022 10:00-0500 Body mass index (BMI) [Ratio] 33.2 kg/m2 STARR FISTEK Other [facility] [employer] Other 10-18-2022 10:00-0500 Body weight 77.11 kg STARR FISTEK Other [facility] [employer] Other 10-18-2022 10:00-0500 Diastolic blood pressure 79 mm[Hg] STARR FISTEK Other [facility] [employer] Other 10-18-2022 10:00-0500 Heart rate 79 /min STARR FISTEK Other [facility] [employer] Other 10-18-2022 10:00-0500 Systolic blood pressure 112 mm[Hg] STARR FISTEK Other [facility] [employer] Other 10-05-2022 15:30-0500 Body height 152.4 cm ANAID RUY-ALISTAIR Other [facility] [employer] Other 10-05-2022 15:30-0500 Body mass index (BMI) [Ratio] 33.59 kg/m2 ANAID RUY-ALISTAIR Other [facility] [employer] Other 10-05-2022 15:30-0500 Body weight 78.02 kg ANAID RUY-ALISTAIR Other [facility] [employer] Other 10-05-2022 15:30-0500 Diastolic blood pressure 82 mm[Hg] STARR FISTEK Other [facility] [employer] Other 10-05-2022 15:30-0500 Heart rate 92 /min STARR FISTEK Other [facility] [employer] Other 10-05-2022 15:30-0500 Systolic blood pressure 117 mm[Hg] STARR MCGINNIS Other [facility] [employer] Other 09-22-2022 15:57-0500 Body height 152.4 cm MD Anaid Garsia MD [facility] [employer] 09-22-2022 15:57-0500 Body mass index (BMI) [Ratio] 39.18 kg/m2 MD Anaid Garsia MD [facility] [employer] 09-22-2022 15:57-0500 Body temperature 97.34 [degF] MD Anaid Garsia MD [facility] [employer] 09-22-2022 15:57-0500 Body weight 91 kg MD Anaid Garsia MD [facility] [employer] 09-22-2022 15:57-0500 Diastolic blood pressure 77 mm[Hg] MD Anaid Garsia MD [facility] [employer] 09-22-2022 15:57-0500 Heart rate 77 /min MD Anaid Garsia MD [facility] [employer] 09-22-2022 15:57-0500 Inhaled oxygen concentration 97 % MD Anaid Garsia MD [facility] [employer] 09-22-2022 15:57-0500 Respiratory rate 18 /min MD Anaid Garsia MD [facility] [employer] 09-22-2022 15:57-0500 Systolic blood pressure 122 mm[Hg] MD Anaid Garsia MD [facility] [employer] 08-26-2022 11:00-0500 Diastolic blood pressure 75 mm[Hg] ZANDRA PORTILLO Other [facility] [employer] Other 08-26-2022 11:00-0500 Heart rate 91 /min ZANDRA PORTILLO Other [facility] [employer] Other 08-26-2022 11:00-0500 Respiratory rate 16 /min ZANDRA PORTILLO Other [facility] [employer] Other 08-26-2022 11:00-0500 Systolic blood pressure 124 mm[Hg] ZANDRA PORTILLO Other [facility] [employer] Other 08-26-2022 09:00-0500 Body height 152.4 cm ANAID RUY-ALISTAIR Other [facility] [employer] Other 08-26-2022 09:00-0500 Body mass index (BMI) [Ratio] 34.95 kg/m2 ANAID RUY-ALISTAIR Other [facility] [employer] Other 08-26-2022 09:00-0500 Body weight 81.19 kg ANAID RUY-ALISTAIR Other [facility] [employer] Other 07-23-2022 10:30-0400 Body height 152.4 cm ANAID RUY-ALISTAIR Other [facility] [employer] Other 07-23-2022 10:30-0400 Body mass index (BMI) [Ratio] 37.3 kg/m2 ANAID RUY-ALISTAIR Other [facility] [employer] Other 07-23-2022 10:30-0400 Body weight 86.64 kg ANAID RUY-ALISTAIR Other [facility] [employer] Other 06-23-2022 17:30-0400 Body height 152.4 cm ZANDRA PORTILLO Other [facility] [employer] Other 06-23-2022 17:30-0400 Body mass index (BMI) [Ratio] 37.88 kg/m2 ZANDRA PORTILLO Other [facility] [employer] Other 06-23-2022 17:30-0400 Body weight 88 kg ZANDRA PORTILLO Other [facility] [employer] Other 06-23-2022 17:00-0400 Diastolic blood pressure 79 mm[Hg] ZANDRA SPAULDINGCA Other [facility] [employer] Other 06-23-2022 17:00-0400 Heart rate 96 /min ZANDRA PORTILLO Other [facility] [employer] Other 06-23-2022 17:00-0400 Respiratory rate 16 /min ZANDRA PORTILLO Other [facility] [employer] Other 06-23-2022 17:00-0400 Systolic blood pressure 130 mm[Hg] ZANDRA SPAULDINGCA Other [facility] [employer] Other 05-27-2022 11:45-0400 Body height 152.4 cm ZANDRA SPAULDINGCA Other [facility] [employer] Other 05-27-2022 11:45-0400 Body mass index (BMI) [Ratio] 37.69 kg/m2 ZANDRA SPAULDINGCA Other [facility] [employer] Other 05-27-2022 11:45-0400 Body weight 87.54 kg ZANDRA PORTILLO Other [facility] [employer] Other 05-27-2022 11:00-0400 Respiratory rate 16 /min ZANDRA SPAULDINGCA Other [facility] [employer] Other 05-27-2022 09:45-0400 Diastolic blood pressure 69 mm[Hg] ZANDRA SPAULDINGCA Other [facility] [employer] Other 05-27-2022 09:45-0400 Heart rate 89 /min ZANDRA SPAULDINGCA Other [facility] [employer] Other 05-27-2022 09:45-0400 Systolic blood pressure 126 mm[Hg] ZANDRA SPAULDINGCA Other [facility] [employer] Other 05-05-2022 13:00-0400 Body height 152.4 cm ZANDRA PORTILLO Other [facility] [employer] Other 05-05-2022 13:00-0400 Body mass index (BMI) [Ratio] 39.06 kg/m2 ZANDRA OPRTILLO Other [facility] [employer] Other 05-05-2022 13:00-0400 Body weight 90.72 kg ZANDRA PORTILLO Other [facility] [employer] Other 04-05-2022 10:30-0400 Body height 152.4 cm ANAID GARSIA Other [facility] [employer] Other 04-05-2022 10:30-0400 Body mass index (BMI) [Ratio] 39.06 kg/m2 ANAID RUY-ALISTAIR Other [facility] [employer] Other 04-05-2022 10:30-0400 Body weight 90.72 kg ANAID RUY-ALISTAIR Other [facility] [employer] Other 03-17-2022 17:00-0400 Body height 152.4 cm ZANDRA SPAULDINGCA Other [facility] [employer] Other 03-17-2022 17:00-0400 Body mass index (BMI) [Ratio] 40.03 kg/m2 ZANDRA DONCA Other [facility] [employer] Other 03-17-2022 17:00-0400 Body weight 92.99 kg ZANDRA SPAULDINGCA Other [facility] [employer] Other 03-02-2022 14:30-0400 Body height 152.4 cm ANAID RUY-ALISTAIR Other [facility] [employer] Other 03-02-2022 14:30-0400 Body mass index (BMI) [Ratio] 39.64 kg/m2 ANAID RUY-ALISTAIR Other [facility] [employer] Other 03-02-2022 14:30-0400 Body weight 92.08 kg ANAID RUY-ALISTAIR Other [facility] [employer] Other 03-02-2022 14:00-0400 Diastolic blood pressure 71 mm[Hg] ZANDRA SPAULDINGCA Other [facility] [employer] Other 03-02-2022 14:00-0400 Heart rate 81 /min ZANDRA SPAULDINGCA Other [facility] [employer] Other 03-02-2022 14:00-0400 Respiratory rate 16 /min ZANDRA SPAULDINGCA Other [facility] [employer] Other 03-02-2022 14:00-0400 Systolic blood pressure 116 mm[Hg] ZANDRA SPAULDINGCA Other [facility] [employer] Other 02-02-2022 17:15-0400 Body height 152.4 cm ZANDRA PORTILLO Other [facility] [employer] Other 02-02-2022 17:15-0400 Body mass index (BMI) [Ratio] 40.62 kg/m2 ZANDRA PORTILLO Other [facility] [employer] Other 02-02-2022 17:15-0400 Body weight 94.35 kg ZANDRA PORTILLO Other [facility] [employer] Other 02-02-2022 17:15-0400 Diastolic blood pressure 78 mm[Hg] ZANDRA SPAULDINGCA Other [facility] [employer] Other 02-02-2022 17:15-0400 Heart rate 84 /min ZANDRA DONCA Other [facility] [employer] Other 02-02-2022 17:15-0400 Respiratory rate 16 /min ZANDRA SPAULDINGCA Other [facility] [employer] Other 02-02-2022 17:15-0400 Systolic blood pressure 111 mm[Hg] ZANDRA PORTILLO Other [facility] [employer] Other 02-02-2022 16:15-0400 Body height 152.4 cm ANAID RUY-ALISTAIR Other [facility] [employer] Other 02-02-2022 16:15-0400 Body mass index (BMI) [Ratio] 40.62 kg/m2 ANAID RUY-ALISTAIR Other [facility] [employer] Other 02-02-2022 16:15-0400 Body weight 94.35 kg ANAID RUY-ALISTAIR Other [facility] [employer] Other 02-10-2017 13:15-0400 BMI (Body Mass Index) 40.39 kg/m2 Merly Bob NP [facility] Work Phone: 02-10-2017 13:15-0400 Body Temperature 98.1 [degF] Merly Shosahra [facility] Work Phone: 02-10-2017 13:15-0400 BP Diastolic 81 mm[Hg] Merly Bob NP [facility] Work Phone: 02-10-2017 13:15-0400 BP Systolic 134 mm[Hg] Merly Shosahra NORWOOD [facility] Work Phone: 02-10-2017 13:15-0400 BSA (Body Surface Area) 1.95 m2 Merly Bob NP [facility] Work Phone: 02-10-2017 13:15-0400 Height 154.94 cm Merly Bob NP [facility] Work Phone: 02-10-2017 13:15-0400 Pulse (Heart Rate) 70 /min Merly Bob NP [facility] Work Phone: 02-10-2017 13:15-0400 Pulse Oximetry 97 % Mrely Bob NP [facility] Work Phone: 02-10-2017 13:15-0400 Respiratory Rate 16 /min Merly Bob NP [facility] Work Phone: 02-10-2017 13:15-0400 Weight 96.98 kg Merly Bob NP [facility] Work Phone: 09-22-2016 13:36-0500 BMI (Body Mass Index) 39.3 kg/m2 Merly Bob NP [facility] Work Phone: 09-22-2016 13:36-0500 Body Temperature 98.4 [degF] Merly Bob NP [facility] Work Phone: 09-22-2016 13:36-0500 BP Diastolic 87 mm[Hg] Merly Bob NP [facility] Work Phone: 09-22-2016 13:36-0500 BP Systolic 125 mm[Hg] Merly Bob NP [facility] Work Phone: 09-22-2016 13:36-0500 BSA (Body Surface Area) 1.92 m2 Merly Bob NP [facility] Work Phone: 09-22-2016 13:36-0500 Height 154.94 cm Merly Bob NP [facility] Work Phone: 09-22-2016 13:36-0500 Pulse (Heart Rate) 90 /min Merly Bob NP [facility] Work Phone: 09-22-2016 13:36-0500 Pulse Oximetry 100 % Merly Bob NP [facility] Work Phone: 09-22-2016 13:36-0500 Respiratory Rate 16 /min Merly Bob NP [facility] Work Phone: 09-22-2016 13:36-0500 Weight 94.35 kg Merly Bob NP [facility] Work Phone: 09-22-2016 [id number] Weight 94.55 kg Merly [facility] Work Phone: Encounters Encounter Date Encounter Type Care Provider Facility Start: 07-13-2024 End: 07-13-2024 ambulatory GUDELIA MI Facility:[facility] Start: 07-13-2024 End: 07-13-2024 ambulatory GUDELIA MI Facility:[facility] Start: 07-13-2024 End: 07-13-2024 Subsequent hospital visit by physician Yuliana [facility] (I-Stat) Work Phone: Cat Scan Comment on above: Elevated AFP [R77.2] Start: 07-12-2024 End: 07-12-2024 ambulatory GUDELIA MI Facility:[facility] Start: 06-28-2024 End: 07-02-2024 Telephone encounter Gudelia Mi MD Work Phone: OB/Gynecology Comment on above: Patient Question Start: 12-06-2023 End: 12-06-2023 ambulatory GUDELIA MI Facility:[facility] Start: 12-06-2023 End: 12-06-2023 Patient encounter procedure Gudelia Mi MD Work Phone: OB/Gynecology Comment on above: Encounter for screen ing mammogram for malignant neoplasm of breast (Primary Dx); Pelvic pain in female; Encounter for screening for malignant neoplasm of colon Start: 11-24-2023 End: 11-24-2023 Office outpatient visit 25 minutes Anaid Garsia MD Work Phone: [facility] Office [facility] Comment on above: Abnormal intestinal absorption (Primary Dx); Hyperparathyroidism (CMS/HCC); Vitamin D deficiency; Nonalcoholic steatohepatitis; S/P gastric bypass Start: 11-24-2023 End: 11-24-2023 [facility] Ambulatory Start: 05-30-2023 End: 05-30-2023 Patient encounter procedure Sylvia Ayala DO Work Phone: Obstetrics/Gynecology Comment on above: Pelvic pain in femal e (Primary Dx) Start: 05-26-2023 (EDUC) EDUCATION ANAID RUY-ALISTAIR [facility] Start: 05-26-2023 End: 05-26-2023 ambulatory ANAID RUY-ALISTAIR Other [facility] [employer] Other Start: 05-26-2023 Office outpatient vi sit 15 minutes ANAID RUY-ALISTAIR [facility] Start: 05-25-2023 End: 05-25-2023 ambulatory ANAID RUY-ALISTAIR Other [facility] Other Start: 05-25-2023 Telephone encounter ANAID RUY-ALISTAIR [facility] Bariatric Surgery [facility] Start: 05-11-2023 Telephone encounter Sylvia schaefer DO Work Phone: Gynecology Comment on above: Medication Question Start: 05-10-2023 Orders Only Sylvia Billow D O Work Phone: Obstetrics/Gynecology Start: 05-09-2023 Telephone encounter Sylvia Bill ow DO Work Phone: [facility] Comment on above: Post Op (Pain) Start: 05-07-2023 ambulatory Sylvia Billow D O Work Phone: Obstetrics/Gynecology Comment on above: Estrogen Start: 05-06-2023 End: 05-06-2023 Orders Only Sylvia Billow DO Work Phone: Obstetrics/Gynecology Comment on above: Post-op pain (Primar y Dx) Start: 05-03-2023 End: 05-04-2023 ambulatory [facility] Facility:[facility] Start: 05-03-2023 Encounter for other preprocedural examination [facility] Start: 04-25-2023 End: 04-25-2023 Patient encounter procedure Sylvia Billow DO Work Phone: Obstetrics/Gynecology Comment on above: Ovarian cyst, left ( Primary Dx); Peritoneal adhesions; Pelvic pain in female; Preop examination Start: 04-25-2023 End: 04-25-2023 Preprocedural examination done Sylvia Ayala DO Work Phone: [facility] Work Phone: Start: 03-24-2023 Telephone encounter Sylvia schaefer DO Work Phone: Gynecology Comment on above: Appointment Start: 03-23-2023 End: 03-23-2023 Patient encounter procedure Gudelia Mi MD Work Phone: OB/Gynecology Comment on above: Peritoneal adhesions (Primary Dx); Adhesion of omentum; Ovarian cyst, left Start: 03-16-2023 End: 03-16-2023 ambulatory ANAID RUY-ALISTAIR Other [facility] Other Start: 03-16-2023 Telephone encounter ANAID RUY-ALISTAIR [facility] Bariatric Surgery [facility] Start: 03-09-2023 End: 03-09-2023 Patient encounter procedure Gudelia Mi MD Work Phone: OB/Gynecology Comment on above: Pelvic and perineal pain (Primary Dx); Ovarian cyst, left Start: 02-22-2023 Telephone encounter Gudelia Mi MD Work Phone: OB/Gynecology Comment on above: Orders Start: 02-08-2023 Telephone encounter Gudelia Mi MD Work Phone: OB/Gynecology Comment on above: Results Start: 01-13-2023 End: 01-13-2023 ambulatory ANAID RUY-ALISTAIR Other [facility] [employer] Other Start: 01-13-2023 Telephone encounter ANAID RUY-ALISTAIR [facility] B[facility]ric [facility] Start: 01-06-2023 End: 01-06-2023 ambulatory ANAID RUY-ALISTAIR Other [facility]. Other Start: 01-06-2023 Telephone encounter ANAID RUY-ALISTAIR [facility] B[facility]ric [facility] Start: 11-01-2022 (EDUC) EDUCATION ANAID RUY-ALISTAIR [facility] B[facility]ric [facility] [employer] Start: 11-01-2022 End: 11-01-2022 ambulatory ANAID RUY-ALISTAIR Other [facility]. Other Start: 11-01-2022 Postop follow up vis it related to original px STARR FISTEK [facility] B[facility]ric Surgery [employer] Start: 11-01-2022 Telephone encounter ANAID RUY-ALISTAIR [facility] Start: 10-20-2022 (EDUC) EDUCATION ANAID RUY-ALISTAIR [facility] Bariatric Surgery [facility] Start: 10-20-2022 End: 10-20-2022 ambulatory ANAID RUY-ALISTAIR Other [facility] Other Start: 10-18-2022 (EDUC) EDUCATION ANAID RUY-ALISTAIR [facility] B[facility] Start: 10-18-2022 End: 10-18-2022 ambulatory STARR FISTEK Other [facility]. Other Start: 10-18-2022 Postop follow up vis it related to original px STARR FISTEK [facility] Start: 10-05-2022 (EDUC) EDUCATION ANAID RUY-ALISTAIR [facility] Start: 10-05-2022 End: 10-05-2022 ambulatory ANAID RUY-ALISTAIR Other [facility] Other Start: 10-05-2022 Postop follow up vis it related to original px STARR FISTEK [facility] Start: 09-24-2022 End: 09-24-2022 ambulatory STARR FISTEK Other [facility] Other Start: 09-24-2022 Telephone encounter STARR FISTE K [facility] B[facility]ric [facility] Start: 09-22-2022 (EDUC) EDUCATION ANAID RUY-ALISTAIR [facility] B[facility] Start: 09-22-2022 End: 09-22-2022 ambulatory ANAID RUY-ALISTAIR Other [facility] Other Start: 09-21-2022 (EDUC) EDUCATION ANAID RUY-ALISTAIR [facility] Start: 09-21-2022 End: 09-21-2022 ambulatory ANAID RUY-ALISTAIR Other [facility] Other Start: 09-20-2022 Admission to [facility] RUY-ALISTAIR [facility] Start: 09-20-2022 End: 09-20-2022 ambulatory ANAID RUY-ALISTAIR Other [facility] Other Start: 09-20-2022 End: 09-22-2022 Evaluation and management of inpatient ANAID RUY-ALISTAIR Facility:UNKNOWN Start: 09-17-2022 ambulatory OTHER PCP Facility:[facility] Start: 09-17-2022 Encounter for other preprocedural examination TANYA BUNCH Facility:UNKNOWN Start: 08-30-2022 (EDUC) EDUCATION ANAID RUY-ALISTAIR [facility] Start: 08-30-2022 End: 08-30-2022 ambulatory ANAID RUY-ALISTAIR Other [facility] Other Start: 08-26-2022 (EDUC) EDUCATION SATRR MCGINNIS L [facility] B[facility] [employer] Start: 08-26-2022 Encounter for other preprocedural examination [facility] B[facility] Start: 08-26-2022 Office outpatient vi sit 15 minutes [facility] Start: 08-26-2022 End: 08-26-2022 ambulatory [facility] Other Start: 08-25-2022 Preprocedural examination done STARR MCGINNIS Other [facility]. Other Start: [facility] Check in Audio Only ANAID RUY-ALISTAIR [facility] Start: 08-20-2022 End: 08-20-2022 ambulatory ANAID RUY-ALISTAIR Other [facility] Other Start: 08-12-2022 End: 08-12-2022 ambulatory ANAID RUY-ALISTAIR Other [facility] Other Start: 08-12-2022 Telephone encounter ANAID RUY-ALISTAIR [facility] B[facility]ric [facility] Start: 08-11-2022 (EST30) Est Pt 30 min ANAID RUY-ALISTAIR [facility] Start: 08-11-2022 End: 08-11-2022 ambulatory ANAID RUY-ALISTAIR Other [facility] Other Start: 08-11-2022 Telephone encounter ANAID RUY-ALISTAIR [facility] B[facility] Start: 07-23-2022 (VCK) Virtual Check in Audio Only ANAID RUY-ALISTAIR [facility] Start: 07-23-2022 End: 07-23-2022 ambulatory ANAID RUY-ALISTAIR Other [facility] [employer] Other Start: 07-20-2022 End: 07-20-2022 ambulatory ANAID RUY-ALISTAIR Other [facility]. Other Start: 07-20-2022 Telephone encounter ANAID RUY-ALISTAIR [facility] B[facility] Start: 07-15-2022 End: 07-15-2022 ambulatory ANAID RUY-ALISTAIR Other [facility] [employer] Other Start: 07-15-2022 Telephone encounter ANADI RUY-ALISTAIR [facility] Start: 07-09-2022 (EDUC) EDUCATION ANAID RUY-ALISTAIR [facility] Start: 07-09-2022 End: 07-09-2022 ambulatory ANAID RUY-ALISTAIR Other [facility] Other Start: 06-29-2022 (EDUC) EDUCATION ANAID RUY-ALISTAIR [facility] Start: 06-29-2022 End: 06-29-2022 ambulatory ANAID RUY-ALISTAIR Other [facility] Other Start: 06-23-2022 (EDUC) EDUCATION ANAID RUY-ALISTAIR [facility] B[facility] Start: 06-23-2022 End: 06-23-2022 ambulatory OTHER PCP [facility] Other Start: 06-23-2022 Office outpatient vi sit 15 minutes [facility] B[facility] Start: 06-16-2022 (EDUC) EDUCATION ANAID RUY-ALISTAIR [facility] Start: 06-16-2022 End: 06-16-2022 ambulatory ANAID RUY-ALISTAIR Other [facility] Other Start: 06-08-2022 (EDUC) EDUCATION ANAID RUY-ALISTAIR [facility] Start: 06-08-2022 End: 06-08-2022 ambulatory ANAID RUY-ALISTAIR Other [facility] Other Start: 05-31-2022 (EDUC) EDUCATION ANAID RUY-ALISTAIR [facility] Start: 05-31-2022 End: 05-31-2022 ambulatory ANAID RUY-ALISTAIR Other [facility] Other Start: 05-27-2022 (EDUC) EDUCATION ANAID RUY-ALISTAIR [facility] Start: 05-27-2022 End: 05-27-2022 ambulatory ZANDRA PORTILLO Other [facility] Other Start: 05-27-2022 Office outpatient ne w 45 minutes ANAID RUY-ALISTAIR [facility]ric [facility] Start: 05-27-2022 Office outpatient vi sit 15 minutes ZANDRA JASSONCA [facility] B[facility] Start: 05-24-2022 (EDUC) EDUCATION ANAID RUY-ALISTAIR [facility] Start: 05-24-2022 End: 05-24-2022 ambulatory ANAID RUY-ALISTAIR Other [facility] Other Start: 05-18-2022 End: 05-18-2022 ambulatory ANAID RUY-ALISTAIR Other [facility] Other Start: 05-18-2022 Telephone encounter ANAID RUY-ALISTAIR [facility] Bariatric Surgery [facility] Start: 05-05-2022 (TELEV) TELEVIST ZANDRA Mat[facility] Start: 05-05-2022 End: 05-05-2022 ambulatory ZANDRA PORTILLO Other [facility] Other Start: 04-14-2022 (EDUC) EDUCATION ANAID RUY-ALISTAIR [facility] Start: 04-14-2022 End: 04-14-2022 ambulatory ANAID RUY-ALISTAIR Other [facility] Other Start: 06-27-2022 (EDUC) EDUCATION ANAID RUY-ALISTAIR [facility] Start: 04-05-2022 End: 04-05-2022 ambulatory ANAID RUY-ALISTAIR Other [facility] Other Start: 03-29-2022 (EDUC) EDUCATION ANAID RUY-ALISTAIR [facility] Start: 03-29-2022 End: 03-29-2022 ambulatory ANAID RUY-ALISTAIR Other [facility] Other Start: 03-17-2022 (TELEV) TELEVIST [facility] Start: 03-17-2022 End: 03-17-2022 ambulatory ANAID RUY-ALISTAIR Other [facility] Other Start: 03-17-2022 Telephone encounter ANAID RUY-ALISTAIR [facility] B[facility] Start: 03-10-2022 (EDUC) EDUCATION ANAID RUY-ALISTAIR [facility] Start: 03-10-2022 End: 03-10-2022 ambulatory ANAID RUY-ALISTAIR Other [facility] Other Start: 03-02-2022 (EDUC) EDUCATION ANAID RUY-ALISTAIR [facility] Start: 03-02-2022 End: 03-02-2022 ambulatory ANAID RUY-ALISTAIR Other [facility] Other Start: 03-02-2022 Office outpatient vi sit 15 minutes [facility] Start: 02-22-2022 (EDUC) EDUCATION ANAID RUY-ALISTAIR [facility] Start: 02-22-2022 End: 02-22-2022 ambulatory ANAID RUY-ALISTAIR Other [facility] Other Start: 02-17-2022 (EDUC) EDUCATION ANAID RUY-ALISTAIR [facility] Start: 02-17-2022 End: 02-17-2022 ambulatory ANAID RUY-ALISTAIR Other [facility] Other Start: 02-16-2022 End: 02-16-2022 ambulatory ANAID RUY-ALISTAIR Other [facility] Other Start: 02-16-2022 Telephone encounter ANAID RUY-ALISTAIR [facility] Start: 02-10-2022 (EDUC) EDUCATION ANAID RUY-ALISTAIR [facility] Start: 02-10-2022 End: 02-10-2022 ambulatory ANAID RUY-ALISTAIR Other [facility] Other Start: 02-02-2022 (EDUC) EDUCATION ANAID RUY-ALISTAIR [facility] Start: 02-02-2022 End: 02-02-2022 ambulatory [facility] C[facility]N [facility] Other Start: 02-02-2022 Encounter for other preprocedural examination [facility] Start: 02-02-2022 Office outpatient ne w 30 minutes [facility] Start: 01-28-2022 (EDUC) EDUCATION ANAID RUY-ALISTAIR [facility] Start: 01-28-2022 End: 01-28-2022 ambulatory ANAID RUY-ALISTAIR Other [facility] Other Start: 01-26-2022 ambulatory OTHER PCP Facility:[facility] Start: 01-19-2022 End: 01-19-2022 Subsequent hospital visit by physician Diagnostic Mammo [facility] Mammogram Comment on above: Abnormal screening m ammogram [R92.8] Start: 08-22-2015 ambulatory [facility] Medical Re cords Comment on above: Pre Visit Planning Ramona Phillip Start: 08-22-2015 E-mail encounter jero mays caregiver [facility] Provider [facility] JAMILA Garsia MD S Procedures Date Procedure Procedure Detail Performing Clinician Start: 09-20-2022 Completed LAPAROSCOPIC SIMONA EN Y GASTRIC BYPASS, by Felisa Lombardo, on 09/20/2022 12:20 PM MD Anaid Garsia MD Start: 02-02-2022 Lipid 1996 panel - Serum or Plasma Anaid Garsia MD Work Phone: Start: 02-02-2022 Thyrotropin [Units/volume] in Serum or Plasma Anaid Garsia MD Work Phone: Start: 01-19-2022 Us breast uni real time with image limited Angle Fagan [employer]CNM Work Phone: Start: 01-19-2022 VIVIANE DIAG W JORDAN LT Angle Fagan [employer] Work Phone: Start: 01-19-2022 Mammography Anaid Garsia MD Work Phone: Start: 12-14-2021 Mammography Us 1 Work Phone: Start: 02-10-2017 End: 02-10-2017 Dietary management education, guidance, and counseling Merly Bob NP Start: 02-10-2017 End: 02-10-2017 Thyroid stimulating hormone (TSH) Merly Bob NP Work Phone: Start: 02-10-2017 End: 02-10-2017 Thyroxine (T4) free Merly Bob TURF MANAGER Work Phone: Start: 09-19-2013 Colonoscopy Gudelia Mi MD Work Phone: Start: 09-11-2010 End: 09-11-2010 [...] 07-27-2010 End: 07-28-2010 Comprehen metabolic panel Kwaku Haider MD Start: 07-27-2010 End: 08-14-2010 Follow Up Appt 2 weeks Kwaku Haider MD Start: 07-27-2010 End: 07-28-2010 Lipid panel Kwaku Haider MD Start: 07-27-2010 End: 08-14-2010 Urinalysis, nonauto w/scope Kwaku Haider MD Start: 04-06-2007 End: 12-16-2010 H/O: section Previous delivery, antepartum condition or complication Gudelia Mi MD Work Phone: Plan of Treatment Date Care Activity Detail Author Start: 2027 Zoster Vaccines (1 of 2) Zoster Vaccines (1 of 2) [facility] Start: 02-02-2027 Lipid panel [facility] Start: 12-29-2026 Screening for malignant neoplasm of colon [facility] Start: 05-03-2026 DIABETES SCREEN DIABETES SCREEN [facility] Start: 05-03-2026 Diabetes Screening Diabetes Screening [facility] Start: 07-12-2025 Creatinine measurement Serum Creatinine [facility] Start: 12-07-2024 End: 12-07-2024 Patient encounter procedure Mammogram Comment on above: Mammo W Jordan/Annual Start: 12-06-2024 BP Controlled (<130/80) BP Controlled (<130/80) [facility] Start: 07-02-2024 End: 10-01-2024 CREATININE BLD CREATININE BLD Lab Routine Elevated AFP Abnormal tumor markers Expected: 07/02/2024, Expires: 10/01/2024 [facility] Comment on above: Expected: 07/02/2024, Expires: 4 Start: 06-10-2024 Covid-19 Vaccine ( season) Covid-19 Vaccine () [facility] Start: 06-10-2024 Influenza vaccination Influenza Vaccine (#1) [facility] Start: 06-05-2024 End: 12-06-2024 25-hydroxyvitamin D3 [Mass/volume] in Serum or Plasma Vitamin D 25-Hydroxy,Total (for eval of Vitamin D levels) Lab Routine Abnormal intestinal absorption Expected: 06/05/2024, Expires: 12/06/2024 [facility] Work Phone: Comment on above: Expected: 06/05/2024, Expires: 5 Start: 06-05-2024 End: 12-06-2024 CBC W Auto Differential panel - Blood CBC and Auto Differential Lab Routine Abnormal intestinal absorption Expected: 06/05/2024 (Approximate), Expires: 12/06/2024 [facility] Service Area Work Phone: Comment on above: Expected: 06/05/2024 (Approximate), Expi res: 12/06/2024 Start: 06-05-2024 End: 12-06-2024 Cobalamin (Vitamin B12) [Mass/volume] in Serum or Plasma Vitamin B12 Lab Routine Abnormal intestinal absorption Expected: 06/05/2024 (Approximate), Expires: 12/06/2024 [facility] Work Phone: Comment on above: Expected: 06/05/2024 (Approximate), Expi res: 12/06/2024 Start: 06-05-2024 End: 12-06-2024 Comprehensive metabolic 2000 panel - Serum or Plasma Comprehensive Metabolic Panel Lab Routine Abnormal intestinal absorption Expected: 06/05/2024 (Approximate), Expires: 12/06/2024 [facility] Work Phone: Comment on above: Expected: 06/05/2024 (Approximate), Expi res: 12/06/2024 Start: 06-05-2024 End: 12-06-2024 Copper [Mass/volume] in Serum or Plasma Copper, Blood Lab Routine Abnormal intestinal absorption Expected: 06/05/2024 (Approximate), Expires: 12/06/2024 [facility] Work Phone: Comment on above: Expected: 06/05/2024 (Approximate), Expi res: 12/06/2024 Start: 06-05-2024 End: 12-06-2024 Ferritin [Mass/volume] in Serum or Plasma Ferritin Lab Routine Abnormal intestinal absorption Expected: 06/05/2024 (Approximate), Expires: 12/06/2024 [facility] Work Phone: Comment on above: Expected: 06/05/2024 (Approximate), Expi res: 12/06/2024 Start: 06-05-2024 End: 12-06-2024 Folate [Mass/volume] in Serum or Plasma Folate Lab Routine Abnormal intestinal absorption Expected: 06/05/2024 (Approximate), Expires: 12/06/2024 [facility] Work Phone: Comment on above: Expected: 06/05/2024 (Approximate), Expi res: 12/06/2024 Start: 06-05-2024 End: 12-06-2024 Iron and Iron binding capacity panel - Serum or Plasma Iron and TIBC Lab Routine Abnormal intestinal absorption Expected: 06/05/2024 (Approximate), Expires: 12/06/2024 [facility] Work Phone: Comment on above: Expected: 06/05/2024 (Approximate), Expi res: 12/06/2024 Start: 06-05-2024 End: 12-06-2024 Parathyrin.intact [Mass/volume] in Serum or Plasma Parathyroid Hormone, Intact Lab Routine Abnormal intestinal absorption Expected: 06/05/2024 (Approximate), Expires: 12/06/2024 [facility] Work Phone: Comment on above: Expected: 06/05/2024 (Approximate), Expi res: 12/06/2024 Start: 06-05-2024 End: 12-06-2024 Thiamine pyrophosphate [Moles/volume] in Blood Vitamin B1, Whole Blood Lab Routine Abnormal intestinal absorption Expected: 06/05/2024 (Approximate), Expires: 12/06/2024 [facility] Work Phone: Comment on above: Expected: 06/05/2024 (Approximate), Expi res: 12/06/2024 Start: 06-05-2024 End: 12-06-2024 Zinc [Mass/volume] in Serum or Plasma Zinc, Serum or Plasma Lab Routine Abnormal intestinal absorption Expected: 06/05/2024 (Approximate), Expires: 12/06/2024 [facility] Work Phone: Comment on above: Expected: 06/05/2024 (Approximate), Expi res: 12/06/2024 Start: 05-30-2024 BP CONTROLLED (<130/80) BP CONTROLLED (<130/80) [facility] Start: 05-03-2024 Creatinine measurement Serum Creatinine [facility] Start: 05-03-2024 SERUM CREATININE SERUM CREATININE [facility] Start: 03-23-2024 BP CONTROLLED (<130/80) BP CONTROLLED (<130/80) [facility] Start: 03-09-2024 BP CONTROLLED (<130/80) BP CONTROLLED (<130/80) [facility] Start: 02-21-2024 DTaP/Tdap/Td Vaccines (3 - Td or Tdap) DTaP/Tdap/Td Vaccines (3 - Td or Tdap) [facility] Start: 02-21-2024 Urine microalbumin profile DTaP,Tdap,Td Vaccine (3 - Td or Tdap) [facility] Start: 02-04-2024 BP CONTROLLED (<130/80) BP CONTROLLED (<130/80) [facility] Start: 01-12-2024 End: 01-12-2024 Patient encounter procedure 01/12/2024 10:30 AM EDT Office Visit [facility] [id number] [employer] [address] [place] [address] [phone] [place] [address] [place] [address] [place] [id number] [facility] Start: 06-10-2023 Influenza vaccination [facility] Start: 02-08-2023 End: 04-10-2023 Cancer Ag 19-9 [Units/volume] in Serum or Plasma [facility] Work Phone: Comment on above: Expected: 02/08/2023, Expires: 3 Start: 02-08-2023 End: 04-10-2023 Carcinoembryonic Ag [Mass/volume] in Serum or Plasma [facility] Work Phone: Comment on above: Expected: 02/08/2023, Expires: 3 Start: 02-02-2023 Diabetes mellitus screening Diabetes Screening [facility] Start: 02-02-2023 Thyroid stimulating hormone measurement TSH Level [facility] Start: 01-19-2023 Screening for malignant neoplasm of breast Mammogram [facility] Start: 12-14-2022 Mammography MAMMOGRAM [facility] Start: 12-14-2022 Screening for malignant neoplasm of breast Mammogram Screening [facility] Start: 10-23-2022 Urine microalbumin profile DTAP,TDAP,TD (2 - Td or Tdap) [facility] Start: 2022 COLOGUARD (FIT-DNA) COLOGUARD (FIT-DNA) [facility] Start: 2022 Colonoscopy COLONOSCOPY [facility] Start: 2022 COLORECTAL CANCER SCREENING COLORECTAL CANCER SCREENING [facility] Start: [address] COLONOGRAPHY [facility] Start: 2022 DIABETES SCREEN DIABETES SCREEN [facility] Start: 2022 FECAL OCCULT BLOOD FECAL OCCULT BLOOD [facility] Start: 2022 LIPID SCREEN LIPID SCREEN [facility] Start: 2022 Screening for malignant neoplasm of colon [facility] Start: 2022 SIGMOIDOSCOPY SIGMOIDOSCOPY [facility] Start: 09-06-2022 COVID-19 VACCINE (5 - Booster for Pfizer series) COVID-19 VACCINE (5 - Booster for Pfizer series) [facility] Start: 09-06-2022 COVID-19 VACCINE (5 - Pfizer series) COVID-19 VACCINE (5 - Pfizer series) [facility] Start: 04-13-2017 End: 04-13-2017 Appointment Appointment [facility] Work Phone: Start: 04-13-2017 End: 04-13-2017 Appointment Appointment [facility] Work Phone: Start: 02-10-2017 End: 02-10-2017 Appointment Appointment [facility] Work Phone: Start: 02-10-2017 End: 02-10-2017 Thyroid stimulating hormone (TSH) *TSH [facility] Work Phone: Start: 02-10-2017 End: 02-10-2017 Thyroxine (T4) free *T4 free [facility] Work Phone: Start: 02-10-2017 End: 02-10-2017 Us exam of head and neck US Thyroid (Soft tissue neck) [facility] Work Phone: Start: 10-19-2016 PNEUMOCOCCAL (2 - PPSV23 if available, else PCV20) PNEUMOCOCCAL (2 - PPSV23 if available, else PCV20) [facility] Start: 10-19-2016 PNEUMOCOCCAL (2 - PPSV23 or PCV20) PNEUMOCOCCAL (2 - PPSV23 or PCV20) [facility] Start: 09-22-2016 End: 09-27-2016 Follow-up visit Follow Up as needed [facility] Work Phone: Start: 09-22-2016 End: 10-08-2016 Primary Care Physician Primary Care Physician Carlos Chris, [address], [address], [place], [address] [facility] Work Phone: Start: 09-11-2010 End: 09-11-2010 Follow up Appt 1 week Follow up Appt 1 week [facility] Work Phone: Start: 08-28-2010 End: 08-28-2010 Follow Up as scheduled Follow Up as scheduled [facility] Work Phone: Start: 08-21-2010 End: 08-25-2010 Assay of free thyroxine *T4 free [facility] Work Phone: Start: 08-21-2010 End: 08-25-2010 Free assay (FT-3) *T3-Free [facility] Work Phone: Start: 08-21-2010 End: 08-25-2010 Thyroid stimulating hormone (TSH) *TSH [facility] Work Phone: Start: 08-13-2010 End: 08-14-2010 Follow Up Appt 1 month Follow Up Appt 1 month [facility] Work Phone: Start: 08-13-2010 End: 08-19-2010 Manual cell count, each *CBC with Differential [facility] Work Phone: Start: 07-29-2010 End: 11-22-2011 EMG EMG [facility] Work Phone: Start: 07-29-2010 End: 08-14-2010 Nerve Conduction Nerve Conduction [facility] Work Phone: Start: 07-27-2010 End: 07-28-2010 Complete cbc, automated *CBC without Diff [facility] Work Phone: Start: 07-27-2010 End: 07-28-2010 Comprehen metabolic panel *CMP Complete Metabolic Panel [facility] Work Phone: Start: 07-27-2010 End: 08-14-2010 Follow Up Appt 2 weeks Follow Up Appt 2 weeks [facility] Work Phone: Start: 07-27-2010 End: 07-28-2010 Lipid panel *Lipid Profile [facility] Work Phone: Start: 07-27-2010 End: 07-28-2010 Protein mass conc *Lipid Profile [facility] Work Phone: Start: 07-27-2010 End: 07-28-2010 Thyroid stimulating hormone (TSH) *TSH [facility] Work Phone: Start: 07-27-2010 End: 07-28-2010 Urinalysis, nonauto w/scope *Urinalysis [facility] Work Phone: Start: 1998 Screening for malignant neoplasm of cervix [facility] Start: 1996 Hepatitis B Vaccine (1 of 3 - 19+ 3-dose series) Hepatitis B Vaccine (1 of 3 - 19+ 3-dose series) [facility] Start: 1995 ANNUAL PCP TEAM CHRONIC DISEASE VISIT ANNUAL PCP TEAM CHRONIC DISEASE VISIT [facility] Start: 1995 Anxiety Screening Anxiety Screening [facility] Start: 1995 BP CONTROLLED (<130/80) BP CONTROLLED (<130/80) [facility] Start: 1995 Hepatitis C screening Hepatitis C Screening [facility] Start: 1978 MMR Vaccines (1 of 1 - Standard series) MMR Vaccines (1 of 1 - Standard series) [facility] Start: 1977 HEPATITIS B (1 of 3 - 3-dose series) HEPATITIS B (1 of 3 - 3-dose series) [facility] Start: 1977 Hepatitis B Vaccine (1 of 3 - 3-dose series) Hepatitis B Vaccine (1 of 3 - 3-dose series) [facility] Start: 1977 Hepatitis B Vaccines (1 of 3 - 3-dose series) Hepatitis B Vaccines (1 of 3 - 3-dose series) [facility] Start: 1977 HIV screening HIV Screening [facility] Start: 1977 Screening for malignant neoplasm of colon [facility] Start: 1977 Yearly Adult Physical Yearly Adult Physical [facility] COLOGUARD COLOGUARD Lab Ro utine Encounter for screening for malignant neoplasm of colon Ordered: 12/06/2023 [facility] Work Phone: Comment on above: Ordered: 12/06/2023 End: 08-01-2025 CT Pelvis W contrast IV CT PELVIS W IVCON Radiology Routine Elevated AFP Abnormal tumor markers 1 Occurrences starting 07/02/2024 until 08/01/2025 [facility] Work Phone: Comment on above: 1 Occurrences starting 07/02/2024 until 08/01/2025 CT Pelvis W contrast IV CT PELVI S W IVCON Radiology Routine Elevated AFP Abnormal tumor markers 07/13/2024 11:44 AM EDT [facility] Work Phone: End: 01-04-2025 DBT Breast - bilateral screening VIVIANE SCREENING W JORDAN Radiology Routine Encounter for screening mammogram for malignant neoplasm of breast 1 Occurrences starting 12/06/2023 until 01/04/2025 [facility] Work Phone: Comment on above: 1 Occurrences starting 12/06/2023 until 01/04/2025 H&P for surgery H&P FOR SURGERY Procedures Routine Pelvic pain in female Ordered: 04/25/2023 [facility] Work Phone: Comment on above: Ordered: 04/25/2023 End: 03-09-2024 Mri pelvis w/o & w/contrast material MRI PELVIS WO/W IVCON Radiology Routine Pelvic and perineal pain 1 Occurrences starting 02/08/2023 until 03/09/2024 [facility] Work Phone: Comment on above: 1 Occurrences starting 02/08/2023 until 03/09/2024 Patient Education WEIGHT%20MANAGEMENT [facility] Work Phone: REFER FOR ADMIT INTERVIEW REFER FOR ADMIT INTERVIEW Procedures Routine Pelvic pain in female Ordered: 04/25/2023 [facility] Work Phone: Comment on above: Ordered: [facility]/25/2023 [facility] c [facility] OR [facility] c [facility] Immunizations Immunization Date Immunization Notes Care Provider Luis [email or web address] 07-12-2022 COVID-19 (Moderna) L ow Dose Booster STARR FISTEK Other [facility] Other 07-12-2022 influenza, injectabl e, quadrivalent, contains preservative STARR FISTEK Other [facility] [employer] Other 07-12-2022 influenza virus vaccine, unspecified formulation Anaid Garsia MD Work Phone: [facility] Work Phone: 07-28-2021 COVID-19 (Moderna) 3 ANAID BE N-ALISTAIR Other [facility] Other 06-23-2021 influenza, injectabl e, quadrivalent, contains preservative ANAID RUY-ALISTAIR Other [facility] [employer] Other 01-17-2021 COVID-19 (Pfizer) 2 (purple) ANAID RUY-ALISTAIR Other [facility] [employer] Other 12-25-2020 COVID-19 (Pfizer) 1 (purple) ANAID RUY-ALISTAIR Other [facility] Other 06-19-2020 influenza, injectabl e, quadrivalent, contains preservative Anaid Garsia MD Work Phone: [facility] Work Phone: 07-07-2017 influenza, injectabl e, quadrivalent, contains preservative Anaid Garsia MD Work Phone: [facility] Work Phone: 08-24-2016 influenza, seasonal, injectable Us 1 Work Phone: [facility] Work Phone: 08-24-2016 pneumococcal conjuga te vaccine, 13 valent Us 1 Work Phone: [facility] Work Phone: 08-23-2016 influenza, seasonal, injectable Anaid Garsia MD Work Phone: [facility] Work Phone: 02-20-2014 tetanus toxoid, reduced diphtheria toxoid, and acellular pertussis vaccine, adsorbed ANAID GARSIA Other [facility] Other 10-23-2012 influenza virus vaccine, unspecified formulation Us 1 Work Phone: [facility] Work Phone: 10-23-2012 tetanus toxoid, reduced diphtheria toxoid, and acellular pertussis vaccine, adsorbed Us 1 Work Phone: [facility] Work Phone: Payers Date Payer Category Payer Medicaid [employer] [id number] 2018-Present [phone] [address] [place] [address] Medicaid [id number] 2017 Unknown [employer] OUR [id number] 2017-Present [address] [place] [address] [id number] 2017 Medicaid [id number] 2011 Medicaid [id number] 1977 Unknown [id number] 1977 Unknown [id number] 1977 Unknown [id number] 1977 Unknown [id number] 1977 Unknown [id number] 1977 Unknown [id number] Medicaid [id number] Social History Date Type Detail Facility Start: 02-02-2022 End: 01-13-2023 Tobacco smoking status NYIS Never smoked tobacco [facility] Work Phone: Start: 09-01-2020 End: 12-06-2023 Alcohol intake Current non-drinker of alcohol (finding) [facility] Start: 1975 Sex Assigned At Not on file [facility] Start: 01-09-2022 End: 11-24-2023 Exposure to SARS-CoV-2 (event) Not sure [facility] Start: 04-25-2023 End: 12-06-2023 Sex Assigned At S [facility] Start: 01-13-2023 Tobacco use and exposure Smokeless tobacco non-user [facility] Start: 04-25-2023 End: 12-06-2023 History of Social function [facility] National Score (1-100), lower number is lower risk 86 [facility] Tobacco smoking status NYIS Tobacco smoking consumption unknown [facility] Work Phone: Medical Equipment Procedure Code Equipment Code Equipment Origin al Text Equipment Identifier Dates LAPAROSCOPIC SIMONA EN Y GASTRIC BYPASS STAPLE, IMPLANTABLE (GDW) LAPAROSCOPIC SIMONA EN Y GASTRIC BYPASS [id number] FDA Start: 09-20-2022 End: 09-20-2022 Clinical Notes 05-13-2015 to 07-13-2024 Reef Inge Jordan, RT(R) - 07/13/2024 11:20 AM EDTTelephone Encounter - Gudelia Mi MD - 07/02/2024 12:54 PM EDTTelephone Encounter - Gudelia Mi MD - 07/02/2024 12:54 PM EDT Note Date & Type Note Facility 07-13-2024 History of Present illness Narrative Radiology Service Progress Note DATE OF SERVICE: July 13, 2024 TIME: 1:34 PM PATIENT IDENTITY VERIFICATION COMPLETED USING TWO (2) STANDARD IDENTIFIERS: Name and Date of confirmed by patient verbally. FALL SCREENING: Has the patient had 2 falls in the last year or 1 fall with injury or currently using an Ambulatory Assistive Device (Walker, Cane, Wheelchair, Crutches, etc.)? No PATIENT GENDER DATA: Female. status: : No status: NO. PATIENT RELEVANT IMPLANT DATA REVIEWED: Yes PATIENT PRESENTS WITH AN IMPLANTABLE OR ATTACHED PLACEMENT DIRECTOR: No ALLERGIES: Reviewed and unchanged CONTRAST ALLERGY: NO. EXAM: CT -CONTRAST INDUCED NEPHROPATHY RISK FACTORS: Not applicable CREATININE: Creatinine Date Value Ref Range Status 07/12/2024 0.93 0.58 - 0.96 mg/dL Final 05/03/2023 0.78 0.58 - 0.96 mg/dL Final 12/05/2015 1.09 0.70 - 1.40 mg/dL Final Estimated Glomerular Filtration Rate Date Value Ref Range Status 07/12/2024 77 >=60 mL/min/1.73m Final Comment: Estimated Glomerular Filtration Rate (eGFR) is calculated using the 2020 CKD-EPI creatinine equation. This equation utilizes serum creatinine, sex, and age as parameters. The creatinine assay has traceable calibration to isotope dilution-mass spectrometry. Refer to KDIGO guidelines for clinical interpretation. In patients with unstable renal function, e.g. those with acute kidney injury, the eGFR may not accurately reflect actual GFR. eGFR- Date Value Ref Range Status 12/05/2015 >60 Final P.O.C.T. RESULTS: POC done: Yes, See Lab Tab July 13, 2024 TREATMENT: N/A PERIPHERAL IV DATA: Ambulatory: A peripheral IV was started in the Left antecubital site with a Angio cath: 22 gauge. RADIOLOGY DEPARTMENT: CT; Exam(s) Completed: Pelvis SIGNATURE: RT Anthony(Alondra) PATIENT NAME: Romain Mendoza DATE: July 13, 2024 TIME: 1:34 PM documented in this encounter [facility] 07-13-2024 Note HNO ID: [id number] Author: INGE JERNIGAN RT (R) Service: ? Author Type: Webfocus Developer Type: Progress Notes Filed: 07/13/2024 13:34 Note Text: Radiology Service Progress Note DATE OF SERVICE: July 13, 2024 TIME: 1:34 PM PATIENT IDENTITY VERIFICATION COMPLETED USING TWO (2) STANDARD IDENTIFIERS: Name and Date of confirmed by patient verbally. FALL SCREENING: Has the patient had 2 falls in the last year or 1 fall with injury or currently using an Ambulatory Assistive Device (Walker, Cane, Wheelchair, Crutches, etc.)? No PATIENT GENDER DATA: Female. status: : No status: NO. PATIENT RELEVANT IMPLANT DATA REVIEWED: Yes PATIENT PRESENTS WITH AN IMPLANTABLE OR ATTACHED PLACEMENT DIRECTOR: No ALLERGIES: Reviewed and unchanged CONTRAST ALLERGY: NO. EXAM: CT -CONTRAST INDUCED NEPHROPATHY RISK FACTORS: Not applicable CREATININE: Creatinine Date Value Ref Range Status 07/12/2024 0.93 0.58 - 0.96 mg/dL Final 05/03/2023 0.78 0.58 - 0.96 mg/dL Final 12/05/2015 1.09 0.70 - 1.40 mg/dL Final Estimated Glomerular Filtration Rate Date Value Ref Range Status 07/12/2024 77 >=60 mL/min/1.73m? Final Comment: Estimated Glomerular Filtration Rate (eGFR) is calculated using the 2020 CKD-EPI creatinine equation. This equation utilizes serum creatinine, sex, and age as parameters. The creatinine assay has traceable calibration to isotope dilution-mass spectrometry. Refer to KDIGO guidelines for clinical interpretation. In patients with unstable renal function, e.g. those with acute kidney injury, the eGFR may not accurately reflect actual GFR. eGFR- Date Value Ref Range Status 12/05/2015 >60 Final P.O.C.T. RESULTS: POC done: Yes, See Lab Tab July 13, 2024 TREATMENT: N/A PERIPHERAL IV DATA: Ambulatory: A peripheral IV was started in the Left antecubital site with a Angio cath: 22 gauge. RADIOLOGY DEPARTMENT: CT; Exam(s) Completed: Pelvis SIGNATURE: RT Anthony(R) PATIENT NAME: Romain Mendoza DATE: July 13, 2024 TIME: 1:34 PM [facility] 07-02-2024 Telephone encounter Note Spoke with patient about abnormal AFP. She had CT of liver and MRI and then was told to follow up here for possible ovarian etiology. We reviewed both ovaries removed and benign in past. Chance of ovarian remnant being the cause for this is small but will get CT of pelvis only since had upper abdomen eval previously. Order in. Please schedule her. Make sure w/ radiology this is correct order to look at ovary area for remnant. Gudelia Mi MD [facility] 07-02-2024 Miscellaneous Notes Spoke with patient about abnormal AFP. She had CT of liver and MRI and then was told to follow up here for possible ovarian etiology. We reviewed both ovaries removed and benign in past. Chance of ovarian remnant being the cause for this is small but will get CT of pelvis only since had upper abdomen eval previously. Order in. Please schedule her. Make sure w/ radiology this is correct order to look at ovary area for remnant. Gudelia Mi MD Pt notified and voiced understanding. Pt states she has not recently had a CT of her pelvis done and is agreeable to having this completed. Would like to complete in this [facility] building rather than going elsewhere. Bee Gracia RN I really don't think an ovarian tumor is the cause of this being elevated. Has she had a CT of the pelvis? If not I would be happy to order one but since both ovaries are removed and were benign I doubt chimney repairer cause. If has had pelvic/abd ct in last few months no need to repeat. Gudelia Mi MD Patient recently had workup with Dr. An and was told her tumor marker AFP was elevated and to follow up with DIRECTOR DATA ARCHITECTURE provider. Patient questioning if she does need to follow up here because she had hysterectomy and both ovaries have been removed. Lab result from [facility] to to review. Please advise. Bharti Howard RN documented in this encounter [facility] 06-28-2024 Telephone encounter Note Pt notified and voiced understanding. Pt states she has not recently had a CT of her pelvis done and is agreeable to having this completed. Would like to complete in this [facility] building rather than going elsewhere. Bee Gracia RN [facility] 06-28-2024 Telephone encounter Note I really don't think an ovarian tumor is the cause of this being elevated. Has she had a CT of the pelvis? If not I would be happy to order one but since both ovaries are removed and were benign I doubt chimney repairer cause. If has had pelvic/abd ct in last few months no need to repeat. Gudelia Mi MD [facility] 06-28-2024 Telephone encounter Note Patient recently had workup with Dr. An and was told her tumor marker AFP was elevated and to follow up with DIRECTOR DATA ARCHITECTURE provider. Patient questioning if she does need to follow up here because she had hysterectomy and both ovaries have been removed. Lab result from [facility] to to review. Please advise. Bharti Howard RN [facility] 12-06-2023 Note HNO ID: [id number] Author: GUDELIA MI MD Service: ? Author Type: Physician Type: Progress Notes Filed: 12/06/2023 11:21 Note Text: Romain Mendoza is a 48 year old female who presents for problem visit for c/o hot flashes and some other events where she lightheaded, blurry vision and diaophoretic and feels like she is going to pass out. Takes a sugar tablet and 10-15 min able to take a nap and then feels better. Happens about once a week. Feels that is different than the hot flashes and night sweats. Has night sweat about once a month. Is on climara and feels that has helped for the most part. OB History T5 L5 SAB0 IAB0 Ectopic0 Multiple0 Live Births5 Chuck Tender History LMP: 03/12/2011, Hysterectomy Age at Menarche: Age at First : Age at Menopause: Chuck Tender History Comments: Sexual Activity: Yes; Male; hysterectomy Contraception: Surgical PAST MEDICAL HISTORY Diagnosis Date Asthma 03/2016 + [facility] at [facility]. Depressive disorder, not elsewhere classified [...] Date APPENDECTOMY 01/2019 DELIVERY ONLY 2006, 2006, 2008 , low cervical X3 GASTRIC BYPASS HX 09/20/2022 Reun Y IUD INSERTION (DIRECTOR DATA ARCHITECTURE DEPT)_*[place] 07/17/2007 Mirena IUD REMOVAL (DIRECTOR DATA ARCHITECTURE DEPT)_*[place] 10/23/2007 Mirena L'SCOPE DX W/WO BRUSHINGS/WASHINGS 03/17/2023 LIG/TRNSXJ FLP TUBE ABDL/VAG APPR UNI/BI 2009 Tubal ligation PAST SURGICAL HISTORY OF 1986 Eye surgery TOTAL ABDOMINAL HYSTERECT W/WO RMVL TUBE OVARY 04/22/2011 [facility] FAMILY HISTORY Problem Relation Age of Onset Hypertension Mother Breast Cancer Mother Diabetes Father Stroke Father Cancer Maternal Grandmother UTERINE CANCER COPD Maternal Grandmother Emphysema Social History Tobacco Use Smoking status: Never Smokeless tobacco: Never Vaping Use Vaping Use: Never used Substance Use Topics Alcohol use: No Drug use: No Current Outpatient Medications Medication Sig estradiol (CLIMARA) 0.075 mg/24 hr Apply 1 Patch as directed one time a week. to lower abd or buttocks. rosuvastatin (CRESTOR) 40 mg tablet allopurinol (ZYLOPRIM) 100 mg tablet TIROSINT 175 mcg cap MULTIVITAMIN ORAL Take by mouth. Flinstone chewables CALCIUM ORAL Take by mouth. cyanocobalamin/folic acid (VITAMIN M98-OGXGU ACID) 1,000-400 mcg lozg Dissolve under the tongue. ALPRAZolam (XANAX) 0.25 mg tablet Take 1 tablet by mouth once daily as needed for Anxiety. albuterol HFA (VENTOLIN HFA) 90 mcg/actuation inhaler Inhale 2 Puffs as instructed every 4 hours as needed for Wheezing/Shortness of Breath. oxyCODONE IR (ROXICODONE) 5 mg immediate release tablet Take 1 tablet by mouth every 6 hours as needed for pain for up to 12 doses. (Patient not taking: Reported on 12/06/2023) LISINOPRIL ORAL Take by mouth. (Patient not taking: Reported on 12/06/2023) PARoxetine (PAXIL) 40 mg tablet (Patient not taking: Reported on 12/06/2023) No current facility-administered medications for this visit. Allergies As of Date: 12/06/2023 Allergen Noted Reaction CITALOPRAM 01/22/2013 GI Upset CODEINE 02/24/2013 Other: See Comments LITHIUM 12/10/2015 GI Upset NSAIDS (NON-STEROIDAL ANTI-INFLAM*01/13/2023 Other: See Comments Fully Assessed 12/06/2023 Allergies and current medication updated:Yes EXAM: BP 102/58 Wt 138 lb (62.6kg) LMP 03/12/2011 GENERAL: pleasant, female in no apparent distress HEENT: Normocephalic, atraumatic, mucus membranes moist, and no lesions ASSESSMENT AND PLAN: Had mammogram at [facility] last week, up to date w/ this sugical menopause- d/w her recommend cont. estrogen patch for now, she agrees. Will continue current dose d/w her colon ca screening, has trouble w/ digestion since bariatric surgery and does not think she can tolerate the prep for a colonoscopy. Pelvic pain improved since surgery Gudelia iM MD Medical Decision Making: Problems: Low: Stable chronic illness Data: Unique test(s) ordered: 1 Risk: Low: Low risk from testing/treatment Medical Decision Making Level: 3 - Low [facility] 12-06-2023 History of Present illness Narrative Romain Mendoza is a 48 year old female who presents for problem visit for c/o hot flashes and some other events where she lightheaded, blurry vision and diaophoretic and feels like she is going to pass out. Takes a sugar tablet and 10-15 min able to take a nap and then feels better. Happens about once a week. Feels that is different than the hot flashes and night sweats. Has night sweat about once a month. Is on climara and feels that has helped for the most part. OB History T5 L5 SAB0 IAB0 Ectopic0 Multiple0 Live Births5 Chuck Tender History LMP: 03/12/2011, Hysterectomy Age at Menarche: Age at First : Age at Menopause: Chuck Tender History Comments: Sexual Activity: Yes; Male; hysterectomy Contraception: Surgical PAST MEDICAL HISTORY Diagnosis Date Asthma 03/2016 + VICKIE at [facility]. Depressive disorder, not elsewhere classified [...] BYPASS HX 09/20/2022 Reun Y IUD INSERTION (DIRECTOR DATA ARCHITECTURE DEPT)_*FL 07/17/2007 Mirena IUD REMOVAL (DIRECTOR DATA ARCHITECTURE DEPT)_*FL 10/23/2007 Mirena L'SCOPE DX W/WO BRUSHINGS/WASHINGS [...] use: No Current Outpatient Medications Medication Sig estradiol (CLIMARA) 0.075 mg/24 hr Apply 1 Patch as directed one time a week. to lower abd or buttocks. rosuvastatin (CRESTOR) 40 mg tablet allopurinol (ZYLOPRIM) 100 mg tablet TIROSINT 175 mcg cap MULTIVITAMIN ORAL Take by mouth. Flinstone chewables CALCIUM ORAL Take by mouth. cyanocobalamin/folic acid (VITAMIN C26-UQTRI ACID) 1,000-400 mcg lozg Dissolve under the tongue. ALPRAZolam (XANAX) 0.25 mg tablet Take 1 tablet by mouth once daily as needed for Anxiety. albuterol HFA (VENTOLIN HFA) 90 mcg/actuation inhaler Inhale 2 Puffs as instructed every 4 hours as needed for Wheezing/Shortness of Breath. oxyCODONE IR (ROXICODONE) 5 mg immediate release tablet Take 1 tablet by mouth every 6 hours as needed for pain for up to 12 doses. (Patient not taking: Reported on 12/06/2023) LISINOPRIL ORAL Take by mouth. (Patient not taking: Reported on 12/06/2023) PARoxetine (PAXIL) 40 mg tablet (Patient not taking: Reported on 12/06/2023) No current facility-administered medications for this visit. Allergies As of Date: 12/06/2023 Allergen Noted Reaction CITALOPRAM 01/22/2013 GI Upset CODEINE 02/24/2013 Other: See Comments LITHIUM 12/10/2015 GI Upset NSAIDS (NON-STEROIDAL ANTI-INFLAM*01/13/2023 Other: See Comments Fully Assessed 12/06/2023 Allergies and current medication updated:Yes EXAM: BP 102/58 Wt 138 lb (62.6kg) LMP 03/12/2011 GENERAL: pleasant, female in no apparent distress HEENT: Normocephalic, atraumatic, mucus membranes moist, and no lesions ASSESSMENT AND PLAN: Had mammogram at [facility] last week, up to date w/ this sugical menopause- d/w her recommend cont. estrogen patch for now, she agrees. Will continue current dose d/w her colon ca screening, has trouble w/ digestion since bariatric surgery and does not think she can tolerate the prep for a colonoscopy. Pelvic pain improved since surgery Gudelia Mi MD Medical Decision Making: Problems: Low: Stable chronic illness Data: Unique test(s) ordered: 1 Risk: Low: Low risk from testing/treatment Medical Decision Making Level: 3 - Low documented in this encounter [facility] 11-24-2023 History and physical note History Of Present Illness Romain Mendoza is a 48 y.o. woman here for one year follow up after RYGB. She has no reflux. She was reminded to avoid ASA, steroids or NSAIDs for life due to risk of gastrojejunal ulcer. She has minimal hunger. She feels full quickly. We discussed the rules after weight loss surgery. She eats a lot of carbs without any protein and does not feel well. She takes flintstones, B12 sublingual, calcium citrate bid. She had labwork for this visit. Her LFTs are mildly elevated (AST 61, ALT 72). She had HAIRSTON prior to weight loss surgery. She saw a emergency doctor yesterday and was told to continue to lose and maintain her weight and to follow up in 6 months. Romain had abdominal pain at time of covid in September. Ultrasound showed normal gallbladder without gallstones. START WT: 208 IDEAL WT: 130 START EXCESS: 78 TOTAL WT LOSS: 72 EWL: 92 % HT: 60 IN Past Medical History Past Medical History: Diagnosis Date Acid reflux Asthma Chest pain Depression HTN (hypertension) Hypothyroid Irregular heart beat Sleep apnea Surgical History Past Surgical History: Procedure Laterality Date APPENDECTOMY SECTION, CLASSIC TYPE UNKNOWN GASTRIC BYPASS 09/20/2022 LAPAROSCOPIC SIMONA EN Y GASTRIC BYPASS (RUY-ALISTAIR KNEE CARTILAGE SURGERY RT KNEE MENISCUS OTHER SURGICAL HISTORY GROWTH REMOVED FROM ABOVE RT EYE A CHILD OTHER SURGICAL HISTORY 08/10/2022 INFUSION RT GREAT TOE PARTIAL HYSTERECTOMY Social History She has no history on file for tobacco use, alcohol use, and drug use. Family History Family History Problem Relation Name Age of Onset Diabetes Mother Hypertension Mother Breast cancer Mother Diabetes Father Hypertension Father Stroke Father Hypertension Sister Heart attack Brother Hypertension Brother Diabetes Brother Allergies Patient has no known allergies. Review of Systems Bariatric Surgery F/U: Seen at ER after surgery? No. Hospital admission? No. Bariatric reoperation? No. Bariatric intervention? No. Was anticoagulation initiated for presumed/confirmed Vein Thrombosis/PE? No. Was an incisional hernia noted on exam? No. Sleep Apnea? No. Still using C-PAP? No. GERD req. meds? No. Hyperlipidemia? yes. Still taking Cholesterol med? yes Hypertension? No. Still taking HTN med? No. Number of Anti-hypertensive Medications: 0. Diabetes? No. Still taking DM med? No. Current DM medication type: . CONSTITUTIONAL: Chills No. Fatigue No. Fever No. CARDIOLOGY: Negative for dizziness, chest pain, palpitations, shortness of breath. RESPIRATORY: Negative for chest congestion, cough, wheezing. GASTROENTEROLOGY: Food Intolerance No. Acid reflux No. Abdominal pain No. Black stools No. Constipation No. Diarrhea No. Loss of appetite no. Nausea No. Vomiting No. UROLOGY: Negative for dysuria, urinary urgency, kidney stones. PSYCHOLOGY: Negative for depression, admits to anxiety, high stress level. Last Recorded Vitals Blood pressure 128/87, pulse 75, height 1.524 m (5'), weight 61.7 kg (136 lb). Relevant Results Paper copy of labwork reviewed Assessment/Plan Problem List Items Addressed This Visit ICD-10-CM Endocrine/Metabolic Hyperparathyroidism (CMS/HCC) E21.3 Vitamin D deficiency E55.9 S/P gastric bypass Z98.84 Gastrointestinal and Abdominal Abnormal intestinal absorption - Primary K90.9 Nonalcoholic steatohepatitis K75.81 We reviewed the rules necessary for mcc success after weight loss surgery. We discussed the need for lifelong nutritional supplementation after weight loss surgery and they were given a handout. We will obtain labwork at next visit. We discussed the importance of excercising with moderate intensity a minimum of five days per week for at least 30 minutes. We discussed that her high carb, low protein diet is resulting in persistent HAIRSTON and not feeling well. She will meet with the dietitian today to come up with sample meal plan and discuss tracking her choices and how they make her feel. Anaid Garsia MD [facility] Work Phone: 11-24-2023 History and physical note History Of Present Illness Romain Mendoza is a 48 y.o. woman here for one year follow up after RYGB. She has no reflux. She was reminded to avoid ASA, steroids or NSAIDs for life due to risk of gastrojejunal ulcer. She has minimal hunger. She feels full quickly. We discussed the rules after weight loss surgery. She eats a lot of carbs without any protein and does not feel well. She takes flintstones, B12 sublingual, calcium citrate bid. She had labwork for this visit. Her LFTs are mildly elevated (AST 61, ALT 72). She had HAIRSTON prior to weight loss surgery. She saw a emergency doctor yesterday and was told to continue to lose and maintain her weight and to follow up in 6 months. Romain had abdominal pain at time of covid in September. Ultrasound showed normal gallbladder without gallstones. START WT: 208 IDEAL WT: 130 START EXCESS: 78 TOTAL WT LOSS: 72 EWL: 92 % HT: 60 IN Past Medical History Past Medical History: Diagnosis Date Acid reflux Asthma Chest pain Depression HTN (hypertension) Hypothyroid Irregular heart beat Sleep apnea Surgical History Past Surgical History: Procedure Laterality Date APPENDECTOMY SECTION, CLASSIC TYPE UNKNOWN GASTRIC BYPASS 09/20/2022 LAPAROSCOPIC SIMONA EN Y GASTRIC BYPASS (RUY-ALISTAIR KNEE CARTILAGE SURGERY RT KNEE MENISCUS OTHER SURGICAL HISTORY GROWTH REMOVED FROM ABOVE RT EYE A CHILD OTHER SURGICAL HISTORY 08/10/2022 INFUSION RT GREAT TOE PARTIAL HYSTERECTOMY Social History She has no history on file for tobacco use, alcohol use, and drug use. Family History Family History Problem Relation Name Age of Onset Diabetes Mother Hypertension Mother Breast cancer Mother Diabetes Father Hypertension Father Stroke Father Hypertension Sister Heart attack Brother Hypertension Brother Diabetes Brother Allergies Patient has no known allergies. Review of Systems Bariatric Surgery F/U: Seen at ER after surgery? No. Hospital admission? No. Bariatric reoperation? No. Bariatric intervention? No. Was anticoagulation initiated for presumed/confirmed Vein Thrombosis/PE? No. Was an incisional hernia noted on exam? No. Sleep Apnea? No. Still using C-PAP? No. GERD req. meds? No. Hyperlipidemia? yes. Still taking Cholesterol med? yes Hypertension? No. Still taking HTN med? No. Number of Anti-hypertensive Medications: 0. Diabetes? No. Still taking DM med? No. Current DM medication type: . CONSTITUTIONAL: Chills No. Fatigue No. Fever No. CARDIOLOGY: Negative for dizziness, chest pain, palpitations, shortness of breath. RESPIRATORY: Negative for chest congestion, cough, wheezing. GASTROENTEROLOGY: Food Intolerance No. Acid reflux No. Abdominal pain No. Black stools No. Constipation No. Diarrhea No. Loss of appetite no. Nausea No. Vomiting No. UROLOGY: Negative for dysuria, urinary urgency, kidney stones. PSYCHOLOGY: Negative for depression, admits to anxiety, high stress level. Last Recorded Vitals Blood pressure 128/87, pulse 75, height 1.524 m (5'), weight 61.7 kg (136 lb). Relevant Results Paper copy of labwork reviewed Assessment/Plan Problem List Items Addressed This Visit ICD-10-CM Endocrine/Metabolic Hyperparathyroidism (CMS/HCC) E21.3 Vitamin D deficiency E55.9 S/P gastric bypass Z98.84 Gastrointestinal and Abdominal Abnormal intestinal absorption - Primary K90.9 Nonalcoholic steatohepatitis K75.81 We reviewed the rules necessary for mcc success after weight loss surgery. We discussed the need for lifelong nutritional supplementation after weight loss surgery and they were given a handout. We will obtain labwork at next visit. We discussed the importance of excercising with moderate intensity a minimum of five days per week for at least 30 minutes. We discussed that her high carb, low protein diet is resulting in persistent HAIRSTON and not feeling well. She will meet with the dietitian today to come up with sample meal plan and discuss tracking her choices and how they make her feel. Anaid Garsia MD documented in this encounter [facility] Work Phone: 11-24-2023 History of Present illness Narrative Subjective Patient ID: Romain Mendoza is a 48 y.o. female who presents for No chief complaint on file.. HPI 13 MOS FUV RYGB THIS IS R/S'D START WT: 208 IDEAL WT: 130 START EXCESS: 78 TOTAL WT LOSS: 72 EWL: 92 % HT: 60 IN Review of Systems Bariatric Surgery F/U: Seen at ER after surgery? No. Hospital admission? No. Bariatric reoperation? No. Bariatric intervention? No. Was anticoagulation initiated for presumed/confirmed Vein Thrombosis/PE? No. Was an incisional hernia noted on exam? No. Sleep Apnea? No. Still using C-PAP? No. GERD req. meds? No. Hyperlipidemia? yes. Still taking Cholesterol med? yes Hypertension? No. Still taking HTN med? No. Number of Anti-hypertensive Medications: 0. Diabetes? No. Still taking DM med? No. Current DM medication type: . CONSTITUTIONAL: Chills No. Fatigue No. Fever No. CARDIOLOGY: Negative for dizziness, chest pain, palpitations, shortness of breath. RESPIRATORY: Negative for chest congestion, cough, wheezing. GASTROENTEROLOGY: Food Intolerance No. Acid reflux No. Abdominal pain No. Black stools No. Constipation No. Diarrhea No. Loss of appetite no. Nausea No. Vomiting No. UROLOGY: Negative for dysuria, urinary urgency, kidney stones. PSYCHOLOGY: Negative for depression, admits to anxiety, high stress level. Objective Physical Exam Assessment/Plan Stefania Canela LPN 11/16/23 11:21 AM documented in this encounter [facility] Work Phone: 05-30-2023 History of Present illness Narrative Images from the original note were not included. [facility] SECTION FOR MINIMALLY INVASIVE GYNECOLOGIC SURGERY OUTPATIENT [...] Sylvia Ayala DO documented in this encounter [facility] 05-26-2023 Evaluation note Encounter Date Diagnosis Assessment Notes May, B12 deficiency (ICD-10 - E53.8) May, Malabsorption (ICD-10 - K90.9) Continue supplementation for life. Repeat labwork in 6 months. 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 We reviewed the rules in detail. May, Hyperparathyroidism (ICD-10 - E21.3) May, Vitamin D deficiency, unspecified (ICD-10 - E55.9) [facility]. Other 08-03-2023 Miscellaneous Notes* Telephone Encounter - Theresa Mcghee RN - 05/12/2023 11:24 AM EDT Called pt and verified name/. Advised message below. All questions answered at this time. Theresa Mcghee RN May 12, 2023 11:38 AM- Sylvia Ayala DO Urogyn, Cpp, [facility] Nurse Triage Pool 3 minutes ago (11:19 [...] with Dr. Ayala on 05/06/2023. Routing to [place] pool. Please advise if it is OK for patient to start estrogen patches. Gloria Alexander RN May 12, 2023 9:30 AM * Telephone Encounter - TonyGissell Roy Meagan - 05/11/2023 2:52 PM EDT Reason for call: other - Provider name: Dr. Ayala Additional comments: Patient was told she will not need estrogen pills and she was given a prescription for estrogen. Please call and advise the patient. Recommendation: routed to nurse triage pool [facility] History of Present illness Narrative* Sylvia Ayala DO - 05/10/2023 12:32 PM EDT j documented in this encounterTri[facility]23 Miscellaneous Notes* Telephone Encounter - Zuleyma [...] home with rx for Estrogen, none ordered. [facility] pharmacy preferred if appropriate. Advised will forward to [place] Pool Yudith Mccauley RN * Telephone Encounter [...] has questions regarding estrogen therapy. Please advise: [phone] Recommendation: routed to nurse triage pool Loan Bell documented in this encounterTri[facility] Miscellaneous Notes* Telephone Encounter - Yudith Mccauley RN - 05/09/2023 1:43 PM EDT Duplicate encounter - see today's 05/09/23 TE Closing chart. Yudith Mccauley RN documented in this encounterTrihealth [facility]-28-2023 NoteHNO ID: [id number] Author: Shannan Emerson, CYNDI Service: ? Author Type: Registered Nurse Type: Nursing Progress Note Filed: 05/06/2023 4:38 PM Note Text: 1630 Pt able to void. Preparing for discharge.[facility] CenterZtjodcjl[facility]17-2772 NoteHNO ID: [id number] Author: Rylan Valdez APRN.MEDICAL INSURANCE CODER Service: Anesthesiology Author Type: Nurse Machine Plug Shaper Type: Anesthesia Procedure Notes Filed: 05/06/2023 12:33 PM Note Text: ANESTHESIOLOGY PROCEDURE NOTE Airway General Information Procedure Start Time/Medication Administration: 05/06/2023 12:27 PM Patient location during procedure: OR Timeout Performed Pre-procedure: timeout performed Consent Obtained: Yes Patient identity confirmed: arm band, patient and family Staffing MEDICAL INSURANCE CODER: Rylan Valdez APRN.MEDICAL INSURANCE CODER Performed by: SRINIVAS Indications and Patient Condition [...] attempts at approach: 1 SIGNATURE: Rylan Valdez APRN.MEDICAL INSURANCE CODER PATIENT NAME: Romain Mendoza DATE: May 06, 2023 TIME: 12:30 PM CSN: [id number] Instructions* Patient Instructions* Sylvia Ayala DO - 04/25/2023 12:30 PM EDT Images from the original note were not included. Please visit the following website for the [facility] surgery guide. [email or web address] MINIMALLY INVASIVE GYNECOLOGIC SURGERY (MIGS)/BENIGN GYNECOLOGY CONTACTS: Surgeons: Dr. Sylvia Ayala Dr. Lor Rodrigez Dr. Shellie Ventura Dr. Juliana Mendieta Dr. Barry Dhaliwal Dr. Meghan Gale [place]: Dr. Mya Garzon [phone] Dr. Denzel Colon [phone] Dr. Samantha Mclaughlin [phone] Nurse Practitioners: Kaur Corley, FRUIT GROWER.OPTOMETRIC AIDE Arianne Blanco, FRUIT GROWER.OPTOMETRIC AIDE Amanda Marquez, FRUIT GROWER.OPTOMETRIC AIDE Jessie Carballo, FRUIT GROWER.OPTOMETRIC AIDE Janeth Lugo, FRUIT GROWER, OPTOMETRIC AIDE Surgery Scheduling Office: Call the day before surgery after 2pm for your surgery arrival time After hours phone number: or toll free Ask the decating machine operator to page the chimney repairer process control technician.' Business hours are Tuesday - Tuesday from 8:00am - 4:30pm. We are closed on weekends and major holidays. Surgery Locations: [address] [place], [place] [address] 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 pharmacy, and the Pharmacy at the [place] [facility] for [facility] (inside the parking garage on the [...] THE SURGEONS ON OUR TEAM. Address: [address] [place], [place] [id number] documented in this encounterTrihealth [facility]07-[facility] History of Present illness Narrative* Sylvia Ayala DO - 04/25/2023 10:30 AM EDT Images from the original note were not included. [facility] SECTION FOR MINIMALLY INVASIVE GYNECOLOGIC SURGERY OUTPATIENT VISIT DATE 04/25/2023 OUTPATIENT VISIT TYPE NEW PRIMARY CARE PHYSICIAN: Carlos Chris MD [id number] [address] REFERRING PHYSICIAN: Gudelia Mi Consultation requested by [...] Cyst with septations and an internal hyperechoic [id number] area 03/17/23: diagnostic laparoscopy Patient underwent diagnostic laparoscopy at [facility] on 03/17/2023 for left ovarian cyst [...] laparoscopy, right toe surgery Past Gynecologic History: Chuck Tender History LMP: 03/12/2011, Hysterectomy Age at Menarche: Age at First : Age at Menopause: Chuck Tender History Comments: Sexual Activity: Yes; Male; hysterectomy Contraception: Surgical Past Obstetrical History: OB History T5 L5 SAB0 IAB0 Ectopic0 Multiple0 Live Births5 Past Medical History: PAST MEDICAL HISTORY Diagnosis Date Asthma 03/2016 + VICKIE at [facility]. Depressive disorder, not elsewhere classified [...] BYPASS HX 09/20/2022 Reun Y IUD INSERTION (DIRECTOR DATA ARCHITECTURE DEPT)_*FL 07/17/2007 Mirena IUD REMOVAL (DIRECTOR DATA ARCHITECTURE DEPT)_*FL 10/23/2007 Mirena L'SCOPE DX W/WO BRUSHINGS/WASHINGS 03/17/2023 LIG/TRNSXJ FLP TUBE ABDL/VAG APPR UNI/BI 2009 Tubal ligation PAST SURGICAL HISTORY OF 1985 Eye surgery TOTAL ABDOMINAL HYSTERECT W/WO RMVL TUBE OVARY 04/22/2011 [facility] Family History: FAMILY HISTORY Problem Relation Age [...] taking: Reported on 04/25/2023) cyanocobalamin/folic acid (VITAMIN W32-EDWME ACID) 1,000-400 mcg lozg Dissolve under the [...] Sylvia Ayala DO documented in this encounterTri[facility]06-15-[facility]23 Miscellaneous Notes* Telephone Encounter - Erinn Elias RN - 03/24/2023 8:27 AM EDT Appointments for Next 60 Days Date Time Provider Location Dept Phone 04/25/2023 10:30 AM SYLVIA AYALA [facility] [phone] * Telephone Encounter - Erinn Elias RN - 03/24/2023 8:26 AM EDT ----- Message from Tami Melissa RN sent at 03/23/2023 3:38 PM EDT ----- Regarding: Consult 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 She was referred to Dr. Roseanna car [facility], by Dr. Gudelia Mi at [facility]. There is a consult order in her chart. Anu Barney nurses are both out this week. Thanks! Tami Melissa RN documented in this encounterTrihealth [facility]06-14-[facility]23 History of Present illness Narrative* Gudelia [...] Gudelia Mi MD documented in this encounterTrihealth [facility]05-31-2023 History of Present illness Narrative* Gudelia [...] L5 SAB0 IAB0 Ectopic0 Multiple0 Live Births5 Chuck Tender History LMP: 03/12/2011, Hysterectomy Age at Menarche: Age at First : Age at Menopause: Chuck Tender History Comments: Sexual Activity: Yes; Male; hysterectomy Contraception: Surgical PAST MEDICAL HISTORY Diagnosis Date Asthma 03/2016 + VICKIE at [facility]. Depressive disorder, not elsewhere classified [...] BYPASS HX 09/20/2022 Reun Y IUD INSERTION (DIRECTOR DATA ARCHITECTURE DEPT)_*FL 07/17/2007 Mirena IUD REMOVAL (DIRECTOR DATA ARCHITECTURE DEPT)_*FL 10/23/2007 Mirena LIG/TRNSXJ FLP TUBE ABDL/VAG [...] ORAL Take by mouth. cyanocobalamin/folic acid (VITAMIN P58-CQIBF ACID) 1,000-400 mcg lozg Dissolve under the [...] Gudelia Mi MD documented in this encounterTrihealth [facility]05-31-2023 History and physical note * Gudelia [...] Diagnosis Date Asthma 03/2016 + VICKIE at [facility]. Depressive disorder, not elsewhere classified [...] BYPASS HX 09/20/2022 Reun Y IUD INSERTION (DIRECTOR DATA ARCHITECTURE DEPT)_*FL 07/17/2007 Mirena IUD REMOVAL (DIRECTOR DATA ARCHITECTURE DEPT)_*FL 10/23/2007 Mirena LIG/TRNSXJ FLP TUBE ABDL/VAG APPR UNI/BI 2009 Tubal ligation PAST SURGICAL HISTORY OF 1985 Eye surgery TOTAL ABDOMINAL HYSTERECT W/WO RMVL TUBE OVARY 04/22/2011 [facility] Current Outpatient Medications Medication Sig Dispense Refill POTASSIUM ORAL Take by mouth. MULTIVITAMIN ORAL Take by mouth. CALCIUM ORAL Take by mouth. cyanocobalamin/folic acid (VITAMIN Q13-HEOOI ACID) 1,000-400 mcg lozg Dissolve under the [...] medications for this visit. ALLERGIES: Citalopram, Codeine, [place], and Nsaids (Non-Steroidal Anti- Inflammatory Drug) PERSONAL [...] Gudelia Mi M.D. documented in this encounterTrihealth [facility]05-16-2023 Miscellaneous Notes* Telephone Encounter - Crystal Plummer RN - 02/22/2023 3:46 PM EDT Form signed by and faxed to [facility] * Telephone Encounter - Crystal Plummer RN - 02/22/2023 10:22 AM EDT Patient would like to be scheduled at [facility] for MRI, they can get her in sooner on the and we have checked and they are unable to get her in here at [facility] until March 15. Please send order to [facility]. Sheis asking for new order to be sent on [facility] form- hospital told her to not send a copy of our order. [facility] order form on desk for signature documented in this encounterTrihealth [facility]05-02-2023 Miscellaneous Notes* Telephone Encounter - Crystal Plummer RN - 02/08/2023 10:04 AM EDT Images from the original note were not included. I called patient and informed her of Lab and MRI ordered. she is scheduled for bloodwork today. Transferred her to schedule MRI. Gudelia Mi MD [facility] Ob-Chuck Tender Pool Please call and schedule MRI for patient. ordered CEA and ca 19-9. Need this done before her surgery. Thanks. See phone note. Gudelia Mi MD [facility]* Encounter Date Diagnosis Assessment Notes Treatment Notes Treatment Clinical Notes Dec, Vitamin D deficiency , unspecified (ICD-10 - E55.9) Dec, Anemia, unspecified (ICD-10 - D64.9) Dec, Vitamin B12 deficiency (ICD-10 - E53.8) Dec, Malabsorption (ICD-1 0 - K90.9) Dec, History of bariatric surgery (ICD-10 - Z98.84) [facility]. Other 01-23-2023 Evaluation note* Encounter Date Diagnosis Assessment Notes Treatment Notes Treatment Clinical Notes Oct, Other Reviewed 6 w [place] diet progression. I reviewed which foods patient [...] to daily MVI. Patient shows good understanding. [facility] mymission2 [facility]. Other 01-23-2023 Evaluation note* Encounter [...] exercise for continued long-term weight loss success [facility]. Other 01-23-2023 Evaluation note* Encounter Date Diagnosis Assessment Notes Treatment Notes Treatment Clinical Notes Oct, Vitamin D deficiency , unspecified (ICD-10 - E55.9) Oct, Anemia, unspecified (ICD-10 - D64.9) Oct, Vitamin B12 deficiency (ICD-10 - E53.8) Oct, Malabsorption (ICD-1 0 - K90.9) Oct, History of bariatric surgery (ICD-10 - Z98.84) [facility]. Other 01-09-2023 Evaluation note* Encounter Date Diagnosis Assessment Notes Treatment Notes Treatment Clinical Notes Oct, Surgery follow-up examination (ICD-10 - Z09) Continue activity restrictions. Oct, Other Advance diet pe r protocol Continue MVI with Fe, PPI Reviewed the rules for mcc weight loss success. Continue to increase walking for exercise. [facility]. Other 01-09-2023 Evaluation note* Encounter Date Diagnosis [...] packet was given, patient shows good understanding. [facility]. Other 12-27-2022 Evaluation note* Encounter Date Diagnosis Assessment Notes Treatment Notes Treatment Clinical Notes Sep, Other Reviewed pur eed diet progression. Patient was instructed to start purees today 10/05. I reviewed how to blend foods appropriately to one consistency using a green coffee blender. Pureed food examples and recipes were [...] packet was given, patient shows good understanding. [facility] 12-27-2022 Evaluation note* Encounter Date Diagnosis [...] if able to compensate increased fluid loss [facility]. Other 12-14-2022 Hospital Discharge instructions Activity on [...] Has Patient had Chest Pain or an TX during this Visit? : No * It is important to understand risk factors for heart disease : It is important to understand risk factors for heart disease * so you can work with your doctor to help prevent further cardiac : so you can work with your doctorto help prevent further cardiac injury. Operations Analyst Discharge Instructions from 09/22/2022 4:19 PM: * Skin Therapist Followup : Alphonse Galvan MD ([id number]) - Pulmonology * Skin Therapist Address and Phone : [phone] [address] [phone] * Skin Therapist Instructions : Please call to schedule an [...] Additionally, a study by the [facility] shows that sleep apnea may be [...] * Discharge Physician: : Anaid Garsia MD ([id number]) - Surgery * Follow up with Ordering Physician : 2 * Discharge Physician Specialty : Week(s) * Discharge Physician Phone: : [phone] [address] [phone] * Patient stated Primary Care Provider : [...] not submerge incision until okayed by office. [facility] 12-14-2022 Evaluation + Plan note Assessment [...] shakes per day starting the second week. [facility] 12-14-2022 Discharge summary* Discharge Summary Note [...] any lotio ns or moisturizers on incisions. [facility] [id number] Hospital Discharge instructions Operations Analyst Discharge Instructions from 09/20/2022 4:46 PM: * Skin Therapist Followup : Alphonse Galvan MD ([id number]) - Pulmonology * Skin Therapist Address and Phone : [phone] [address] [phone] * Skin Therapist Instructions : Please call to schedule an appointment upon discharge. ED Discharge Education Evaluation from 09/20/2022 6:38 PM: * Educ Topic #1 : Yes Patient Transfer Information from 09/20/2022 6:38 PM: * Sensory Screening : Denies problems or history * Does Patient have hearing aids? : No Physician Follow-up Plan/Appointments from 09/20/2022 6:38 PM: * Patient stated Primary Care Provider : OTHER [facility] 12-12-2022 Evaluation note* Encounter Date Diagnosis [...] mass inde x 38.0-38.9 (ICD-10 - Z68.38) [facility]. Other 11-17-2022 Evaluation note* Encounter Date Diagnosis [...] introduced at 6 week follow up appointment. [facility]. Other 11-17-2022 Evaluation note* Encounter Date Diagnosis [...] under the direction and presence of Zandra Portillo MD. By signing below, Zandra Hardy MD, personally performed the services described in this documentation. All medical record entries made by the scribe were at my direction and in my presence. I have received the chart and agree that the record reflects my personal performance and is accurate and complete [facility]. Other 09-14-2022 Evaluation note* Encounter Date Diagnosis [...] under the direction and presence of Zandra Portillo MD. By signing below, Zandra Hardy MD, personally performed the services described in this documentation. All medical record entries made by the scribe were at my direction and in my presence. I have received the chart and agree that the record reflects my personal performance and is accurate and complete [facility]. Other 09-14-2022 Evaluation note* Encounter Date Diagnosis Assessment Notes Treatment Notes Treatment Clinical Notes Jun, Other Today's Lesson: - Review of food recall - Briefly reviewed expectations after surgery Diet Goal: practice the lifelong rules Exercise Recommendations: 150 minutes moderate intensity exercise per week Behavior Goal: - continue to implement the lifelong rules Plan: dietary clearance provided today [facility]. Other 09-11-2022 History general Narrative - Reported* Type Description Date Medical History sleep apnea, CPAP is 2 yrs old, uses it every night but device is recalled, PCP will order a new one Medical History asthma Medical History hypertension Medical History depression Medical History acid reflux Medical History hypothyroidism Medical History sees records specialist fo r chest pain, irregular heart beat, fam Hx, exercise stress test 2021 WNL Surgical History appendectomy 2019 Surgical History right knee meniscus Surgical History x 3 Surgical History growth removed above right eye as a child Surgical History hysterectomy 2009 Hospitalization History [facility] chest [facility]. Other 08-18-2022 Evaluation note* Encounter Date Diagnosis [...] under the direction and presence of Zandra Portillo MD. By signing below, Zandra Hardy MD, personally performed the services described in this documentation. All medical record entries made by the scribe were at my direction and in my presence. I have received the chart and agree that the record reflects my personal performance and is accurate and complete [facility]. Other 08-18-2022 Evaluation note* Encounter Date Diagnosis Assessment Notes Treatment Notes Treatment Clinical Notes May, Other Today's Lesson: - Review of food recall Diet Goal: practice the lifelong rules Exercise Recommendations: 150 minutes moderate intensity exercise per week Behavior Goal: - continue to implement the lifelong rules [facility]. Other 08-18-2022 Evaluation note* Encounter Date Diagnosis [...] expected weight loss, the rules necessary for esa-term success, the nutritional supplementation recommended for each [...] and is not at risk for . [facility]. Other 07-27-2022 Evaluation note* Encounter Date Diagnosis [...] under the direction and presence of Zandra Portillo MD. By signing below, I, Zandra Portillo MD, personally performed the services described in this documentation. All medical record entries made by the scribe were at my direction and in my presence. I have received the chart and agree that the record reflects my personal performance and is accurate and complete. [facility]. Other 06-27-2022 Evaluation note* Encounter Date Diagnosis Assessment Notes Treatment Notes Treatment Clinical Notes Mar, Other Today's Lesson: - Review of dietary recall - Suggestions provided Diet Goal: practice the lifelong rules Exercise Recommendations: 150 minutes moderate intensity exercise per week Behavior Goal: - Continue to follow the lifelong rules - 1-2# wt loss per week [facility]. Other 06-11-2022 History general Narrative - Reported* Type Description Date Medical History sleep apnea, CPAP is 2 yrs old, uses it every night Medical History asthma Medical History hypertension Medical History depression Medical History acid reflux Medical History hypothyroidism Medical History sees records specialist fo r chest pain, irregular heart beat, fam Hx, exercise stress test 2021 WNL Surgical History appendectomy 2019 Surgical History right knee meniscus Surgical History x 3 Surgical History growth removed above right eye as a child Surgical History hysterectomy 2009 Hospitalization History [facility]. Other 06-08-2022 Evaluation note* Encounter Date Diagnosis [...] Mar, Vitamin D deficiency (ICD-10 - E55.9) [facility]. Other 05-24-2022 Evaluation note* Encounter Date Diagnosis Assessment Notes Treatment Notes Treatment Clinical Notes February, Other Today's Lesson: - Had Romain download and set up ProTip pal profile, set calories to 1500 per day - Reviewed how to scan bar codes and how to manually enter food items - Reviewed the importance of measuring out portions - Recommended keeping meals simple Diet Goal: practice the lifelong rules Exercise Recommendations: 150 minutes moderate intensity exercise per week Behavior Goal: 1. Use ProTip pal and track food intake 2. 1-2# wt loss/week [facility]. Other 05-24-2022 Evaluation note* Encounter Date Diagnosis Assessment Notes Treatment Notes Treatment Clinical Notes February, Sleep apnea (ICD-10 - G47.30) Counseled on consistent CPAP use February, Primary hypertension (ICD-10 - I10) February, Gastroesophageal ref lux (ICD-10 - K21.9) February, Non morbid obesity d ue to excess calories (ICD-10 - E66.09) Counseled on low calorie diet and increase exercise [facility] Other 04-26-2022 Evaluation note* Encounter Date [...] meals a day 2. track food intake [facility] Other 04-26-2022 Evaluation note* Encounter Date [...] Jan, Nutritional deficien cy (ICD-10 - E63.9) [facility]. Other 04-12-2022 History of Present illness Narrative* [...] 2022 1:25 PM documented [facility] History of Past illness Narrative* Problem [...] this encounter (statuses as of 05/06/2023) [facility] Narrative* Problem [...] this encounter (statuses as of 05/09/2023) [facility] of [facility] illness Narrative* Problem [...] this encounter (statuses as of 05/10/2023) [facility] Narrative* Problem [...] this encounter (statuses as of 05/10/2023) [facility] Narrative* Problem [...] this encounter (statuses as of 05/12/2023) [facility] of [facility] illness Narrative* Problem [...] this encounter (statuses as of 05/30/2023) [facility] Narrative* Problem Noted Date Diagnosed Date Resolved Date Asthma, late onset 07/30/2016 Impaired glucose metabolism 05/13/2015 05/03/2023 Pain in [...] as of this encounter (statuses as of 12/06/2023) [facility] of [facility] illness Narrative* Problem [...] this encounter (statuses as of 01/20/2022) [facility] Narrative* Problem [...] this encounter (statuses as of 01/20/2022) [facility] Narrative* Problem [...] this encounter (statuses as of 02/08/2023) [facility] Narrative* Problem [...] this encounter (statuses as of 02/23/2023) [facility] Narrative* Problem [...] this encounter (statuses as of 03/09/2023) [facility] Narrative* Problem [...] this encounter (statuses as of 03/21/2023) [facility] Narrative* Problem [...] this encounter (statuses as of 03/23/2023) [facility] Narrative* Problem Noted Date Resolved Date Pain in throat 05/13/2015 06/10/2015 Thyroid activity decreased 05/13/201506/10 Marital conflict 08/02/2013 05/13/2015 Previous delivery, antepartum condition or complication 04/06/2007 12/16/2010 Unspecified high-risk 04/06/2007 12/16/2010 Thyroid dysfunction of pam r, complicating , childbirth, or the puerperium, unspecified as to episode of care(648.10) 02/06/2007 12/16/2010 Supervision of other normal 09/27/2006 08/26/2008 documented as of this encounter (statuses as of 03/24/2023) [facility] illness Narrative* Problem Noted Date Diagnosed Date Resolved Date Pain in throat 05/13/2015 06/10/2015 Thyroid activity decreased 05/13/2015 0 06/10/2015 Marital conflict 08/02/2013 05/13/2015 Previous delivery, antepartum condition or complication 04/06/2007 12/16/2010 Unspecified high-risk 04/06/2007 12/16/2010 Thyroid dysfunction of pam r, complicating , childbirth, or the puerperium, unspecified as to episode of care(648.10) 02/06/2007 12/16/2010 Supervision of other normal 09/27/2006 08/26/2008 documented as of this encounter (statuses as of 04/25/2023) [facility] S Evaluation note* Diagnosis Abnormal screening mammogram Abnormal mammogram, unspecified documented in this encounter [facility] note* Diagnosis Abnormal screening mammogram Abnormal mammogram, unspecified documented in this encounter [facility] noteNo [facility]. Other Evaluation note* Diagnosis Pelvic and perineal pain- Primary Unspecified symptom associated with female genital organs Ovarian cyst, left Other and unspecified ovarian cyst documented in this encounter [facility] note* Diagnosis Pelvic and perineal pain- Primary Unspecified symptom associated with female genital organs Ovarian cyst, left Other and unspecified [facility] cyst [facility] Diagnosis Peritoneal adhesions- Primary Peritoneal adhesions (postoperative) (postinfection) Adhesion of omentum Peritoneal adhesions (postoperative) (postinfection) Ovarian cyst, left Other and unspecified [facility] cyst [facility] Ovarian cyst, left- Primary Other and unspecified ovarian cyst Peritoneal adhesions Peritoneal adhesions (postoperative) (postinfection) Pelvic pain in female Unspecified symptom associated with female genital organs Preop examination Preoperative examination, unspecified [facility]* Diagnosis Post-op pain- Primary Other acute postoperative pain [facility]* Diagnosis Pelvic pain in female- Primary Unspecified symptom associated with female genital organs [facility]* Diagnosis Abnormal intestinal absorption- Primary Unspecified intestinal malabsorption Hyperparathyroidism (CMS/HCC) Hyperparathyroidism, unspecified Vitamin D deficiency Nonalcoholic steatohepatitis Other chronic nonalcoholic liver disease S/P gastric bypass Bariatric surgery status documented in this encounter [facility] Work Phone: Evaluation note* Diagnosis Encounter for screening mammogram for malignant neoplasm of breast- Primary Other screening mammogram Pelvic pain in female Unspecified symptom associated with female genital organs Encounter for screening for malignant neoplasm of colon Special screening for malignant neoplasms, colon [facility] this [facility] Diagnosis Pre-op evaluation- Primary Preoperative examination, unspecified Bipolar 2 disorder (HCC) Other bipolar disorders Uncomplicated asthma, unspecified asthma severity, unspecified whether persistent Mixed hyperlipidemia Essential hypertension Unspecified essential hypertension Hypothyroidism, unspecified type Chronic kidney disease, unspecified CKD stage [place] (obstructive sleep apnea) Obstructive sleep apnea (adult) (pediatric) Elevated AFP- Primary Other nonspecific findings on examination of blood Abnormal tumor markers Other abnormal tumor markers documented in this encounter [facility] note* Diagnosis Pre-op evaluation- Primary Preoperative examination, unspecified Bipolar 2 disorder (HCC) Other bipolar disorders Uncomplicated asthma, unspecified asthma severity, unspecified whether persistent Mixed hyperlipidemia Essential hypertension Unspecified essential hypertension Hypothyroidism, unspecified type Chronic kidney disease, unspecified CKD stage [place] (obstructive sleep apnea) Obstructive sleep apnea (adult) (pediatric) Elevated AFP Other nonspecific findings on examination of blood Abnormal tumor markers Other abnormal tumor markers documented in this encounter [facility] general Narrative - Reported* Type Description Date Medical History sleep apnea, CPAP is 2 yrs old, uses it every night Medical History asthma Medical History hypertension Medical History depression Medical History acid reflux Medical History hypothyroidism Medical History sees records specialist fo r chest pain, irregular heart beat, fam Hx, has exercise stress test 2020 Surgical History appendectomy 2019 Surgical History right knee meniscus Surgical History x 3 Surgical History growth removed above right eye as a child Surgical History hysterectomy 2010 Hospitalization History [facility]. Other [email or web address] general Narrative - Reported* Type Description Date Medical History sleep apnea, CPAP is 2 yrs old, uses it every night Medical History asthma Medical History hypertension Medical History depression Medical History acid reflux Medical History hypothyroidism Medical History sees records specialist fo r chest pain, irregular heart beat, fam Hx, exercise stress test 2021 WNL Surgical History appendectomy 2020 Surgical History right knee meniscus Surgical History x 3 Surgical History growth removed above right eye as a child Surgical History hysterectomy 2009 Hospitalization History [facility]. Other [email or web address] general Narrative - Reported* Type Description Date Medical History sleep apnea, CPAP is 2 yrs old, uses it every night but device is recalled, PCP will order a new one Medical History asthma Medical History hypertension Medical History depression Medical History acid reflux Medical History hypothyroidism Medical History sees records specialist fo r chest pain, irregular heart beat, fam Hx, exercise stress test 2021 WNL Surgical History appendectomy 2020 Surgical History right knee meniscus Surgical History x 3 Surgical History growth removed above right eye as a child Surgical History hysterectomy 2009 Hospitalization History [facility] mymission2 [facility]. Other history general Narrative - Reported* Type Description Date Medical History sleep apnea, got new CPAP Medical History asthma Medical History hypertension Medical History depression Medical History acid reflux Medical History hypothyroidism Medical History sees records specialist fo r chest pain, irregular heart beat, fam Hx, exercise stress test 2021 WNL Surgical History appendectomy 2020 Surgical History right knee meniscus Surgical History x 3 Surgical History growth removed above right eye as a child Surgical History hysterectomy 2010 Surgical History infusion right [place] toe 022 Hospitalization History [facility]. Other history general Narrative - Reported* Type Description Date Medical History sleep apnea, got new CPAP Medical History asthma Medical History hypertension Medical History depression Medical History acid reflux Medical History hypothyroidism Medical History sees records specialist fo r chest pain, irregular heart beat, fam Hx, exercise stress test 2021 WNL Surgical History appendectomy 2020 Surgical History right knee meniscus Surgical History x 3 Surgical History growth removed above right eye as a child Surgical History hysterectomy 2010 Surgical History infusion right [place] toe 022 Surgical History LAPAROSCOPIC SIMONA-EN -Y GASTRIC BYPASS (RUY-ALISTAIR) [place] Hospitalization History [facility] chest [facility]. Other History general Narrative - Reported* Type Description Date Medical History sleep apnea, got new CPAP Medical History asthma Medical History hypertension Medical History depression Medical History acid reflux Medical History hypothyroidism Medical History sees records specialist fo r chest pain, irregular heart beat, fam Hx, exercise stress test 2021 WNL Surgical History appendectomy 2020 Surgical History right knee meniscus Surgical History x 3 Surgical History growth removed above right eye as a child Surgical History hysterectomy 2009 Surgical History infusion right [place] toe 022 Surgical History LAPAROSCOPIC SIMONA-EN -Y GASTRIC BYPASS (RUY-ALISTAIR) [place] Hospitalization [facility] bdominal [facility]/ had bladder infection no admission [facility]. Other [email or web address] general N[facility]ative - [facility] Other history general Narrative - Reported* Type Description Date Medical History sleep apnea, got new CPAP Medical History asthma Medical History hypertension Medical History depression Medical History acid reflux Medical History hypothyroidism Medical History sees records specialist fo r chest pain, irregular heart beat, fam Hx, exercise stress test 2021 WNL Surgical History appendectomy 2020 Surgical History right knee meniscus Surgical History x 3 Surgical History growth removed above right eye as a child Surgical History partial hysterectomy 2010 Surgical History infusion right [place] toe 022 Surgical History LAPAROSCOPIC SIMONA-EN -Y GASTRIC BYPASS (RUY-ALISTAIR) [place] Surgical History tubes and ovaries removed Hospitalization [facility] bdominal [facility]/ had bladder infection no admission [facility]. Other Hospital Discharge instructions Activity on Discharge [...] Has Patient had Chest Pain or an TX during this Visit? : No * It is important to understand risk factors for heart disease : It is important to understand risk factors for heart disease * so you can work with your doctor to help prevent further cardiac : so you can work with your doctorto help prevent further cardiac injury. Operations Analyst Discharge Instructions from 09/22/2022 4:19 PM: * Skin Therapist Followup : Alphonse Galvan MD ([id number]) - Pulmonology * Skin Therapist Address and Phone : [phone] [address] [phone] * Skin Therapist Instructions : Please call to schedule an [...] Additionally, a study by the [facility] shows that sleep apnea may be [...] * Discharge Physician: : Anaid Garsia MD ([id number]) - Surgery * Follow up with Ordering Physician : 2 * Discharge Physician Specialty : Week(s) * Discharge Physician Phone: : [phone] [address] [phone] * Patient stated Primary Care Provider : [...] not submerge incision until okayed by office. [facility] for referral (narrative)* Diagnostic Procedure Only (Routine) - Closed Specialty Diagnoses / Procedures Referred By Alesia lemons Referred To Contact BR IMAGING Diagnoses Abnormal screening mammogram Procedures US BREAST LTD LT US BREAST UNI REAL TIME WITH IMAGE LIMITED Angle Fagan APRN.CNM [address] [place] [address] [place] [address] Referral ID Status Reason Start Date Expiration Date V isits Requested Visits Authorized [id number] Closed Auto-Generate d Referral 12/16/2021 01/15/2023 1 1 [facility] for referral (narrative)* Diagnostic Procedure Only (Routine) - Authorized Specialty Diagnoses / Procedures Referred By Alesia lemons Referred To Contact BR IMAGING Diagnoses Encounter for screening mammogram for malignant neoplasm of breast Procedures VIVIANE SCREENING W JORDAN SCREENING DIGITAL BREAST TOMOSYNTHESIS BI SCREENING MAMMOGRAPHY BI 2-VIEW BREAST INC Gudelia Ramesh MD [address] [place] [address] Br Imaging [address] [address] Referral ID Status Reason Start Date Expiration Date Visits Requested Visits Authorized [id number] Authorized Auto-Generat ed Referral 12/06/2023 01/04/2025 1 1 [facility] for visit Narrative* Diagnostic Procedure Only (Routine) - Closed Specialty Diagnoses / Procedures [facility] Referred To Contact [facility] Diagnoses Abnormal screening mammogram Procedures VIVIANE DIAGNOSTIC LT DIAGNOSTIC MAMMOGRAPHY COMPUTER-AIDED DETCJ UNI JoseAngle euceda APRN.[facility] [address] [place] [address] Br Imaging [address] [place] [address] Referral ID Status Reason Start Date Expiration Date V isits Requested Visits Authorized [id number] Closed Auto-Generate d Referral 12/16/2021 01/15/2023 1 1 [facility] for visit Narrative* Diagnostic Procedure Only (Routine) - Closed Specialty Diagnoses / Procedures Referred By [facility] Referred To Contact BR IMAGING Diagnoses Abnormal screening mammogram Procedures US BREAST LTD LT US BREAST UNI REAL TIME WITH IMAGE LIMITED JoseAngle euceda APRN.CNM [address] [place] [address] [facility] Imaging [address] [place] [address] Referral ID Status Reason Start Date Expiration Date V isits Requested Visits Authorized [id number] Closed Auto-Generate d Referral 12/16/2021 01/15/2023 1 1 [facility] for visit Narrativesurgery education, review insurance requirements [facility]. Other Summary Purpose Family History No Family History Records FoundNo Family History Records FoundNo Family History Records FoundNo Family History Records FoundNo Family History Records Found Advance Directives No Advanced Directives Records FoundNo Advanced Directives Records FoundNo Advanced Directives Records FoundNo Advanced Directives Records FoundNo Advanced Directives Records Found Reason for Referral Specialty Diagnoses / Procedures [facility] Referred To Contact CT IMAGING Diagnoses Elevated AFP Abnormal tumor markers Procedures CT PELVIS W IVCON CT PELVIS W/CONTRAST MATERIAL Gudelia Mi MD [address] [place] [address] [place] [address] Referral ID Status Reason Start Date Expiration Date Visits Requested Visits Authorized [id number] New Request Auto-Generat ed Referral 07/02/2024 08/01/2025 1 1 Specialty Diagnoses / Procedures Referred By Contac t Referred To Contact Diagnoses Peritoneal adhesions Adhesion of omentum Ovarian cyst, left Procedures CONSULT TO MINIMALLY INVASIVE GYNECOLOGIC SURGERY OFFICE/OUTPATIENT NEW HIGH MDM 60-74 MINUTES Gudelia Mi MD [address] [place] [address] Referral ID Status Reason Start Date Expiration Date Visits Requested Visits Authorized [id number] Authorized PCP Requested Referral Auto-Generate d Referral 03/23/2023 03/22/2024 1 1 Specialty Diagnoses / Procedures Referred By Contac t Referred To Contact MR IMAGING Diagnoses Pelvic and perineal pain Procedures MRI PELVIS WO/W IVCON MRI PELVIS W/O & W/CONTRAST MATERIAL Gudelia Mi MD [address] [place] [address] Mr Imaging Referral ID Status Reason Start Date Expiration Date Visits Requested Visits Authorized [id number] Pending Review Auto-Generat ed Referral 02/08/2023 03/09/2024 1 1 Additional Source Comments Source Comments (unrecognize d section and content) In the event this informatio n is protected by the Federal Confidentiality of Alcohol and Drug Abuse Patient Records regulations: The Federal rules restrict any use of the information to criminally investigate or prosecute any alcohol or drug abuse patient.[facility] the event this information is protected by the Federal Confidentiality of Alcohol and Drug Abuse Patient Records regulations: The Federal rules restrict any use of the information to criminally investigate or prosecute any alcohol or drug abuse patient.[facility] Hospital[facility] the event this information is protected by the Federal Confidentiality of Alcohol and Drug Abuse Patient Records regulations: The Federal rules restrict any use of the information to criminally investigate or prosecute any alcohol or drug abuse patient.[facility] Hospital[facility] the event this information is protected by the Federal Confidentiality of Alcohol and Drug Abuse Patient Records regulations: The Federal rules restrict any use of the information to criminally investigate or prosecute any alcohol or drug abuse patient.[facility] Hospital[facility] the event this information is protected by the Federal Confidentiality of Alcohol and Drug Abuse Patient Records regulations: The Federal rules restrict any use of the information to criminally investigate or prosecute any alcohol or drug abuse patient.[facility] HospitalIn the event this information is protected by the Federal Confidentiality of Alcohol and Drug Abuse Patient Records regulations: The Federal rules restrict any use of the information to criminally investigate or prosecute any alcohol or drug abuse patient.[facility] Hospital[facility] the event this information is protected by the Federal Confidentiality of Alcohol and Drug Abuse Patient Records regulations: The Federal rules restrict any use of the information to criminally investigate or prosecute any alcohol or drug abuse patient.[facility] Hospital[facility] the event this information is protected by the Federal Confidentiality of Alcohol and Drug Abuse Patient Records regulations: The Federal rules restrict any use of the information to criminally investigate or prosecute any alcohol or drug abuse patient.[facility] Hospital[facility] the event this information is protected by the Federal Confidentiality of Alcohol and Drug Abuse Patient Records regulations: The Federal rules restrict any use of the information to criminally investigate or prosecute any alcohol or drug abuse patient.[facility] Hospital[facility] the event this information is protected by the Federal Confidentiality of Alcohol and Drug Abuse Patient Records regulations: The Federal rules restrict any use of the information to criminally investigate or prosecute any alcohol or drug abuse patient.[facility] HospitalIn the event this information is protected by the Federal Confidentiality of Alcohol and Drug Abuse Patient Records regulations: The Federal rules restrict any use of the information to criminally investigate or prosecute any alcohol or drug abuse patient.[facility] Hospital[facility] the event this information is protected by the Federal Confidentiality of Alcohol and Drug Abuse Patient Records regulations: The Federal rules restrict any use of the information to criminally investigate or prosecute any alcohol or drug abuse patient.[facility] HospitalIn the event this information is protected by the Federal Confidentiality of Alcohol and Drug Abuse Patient Records regulations: The Federal rules restrict any use of the information to criminally investigate or prosecute any alcohol or drug abuse patient.[facility] HospitalIn the event this information is protected by the Federal Confidentiality of Alcohol and Drug Abuse Patient Records regulations: The Federal rules restrict any use of the information to criminally investigate or prosecute any alcohol or drug abuse patient.[facility] HospitalIn the event this information is protected by the Federal Confidentiality of Alcohol and Drug Abuse Patient Records regulations: The Federal rules restrict any use of the information to criminally investigate or prosecute any alcohol or drug abuse patient.[facility] HospitalIn the event this information is protected by the Federal Confidentiality of Alcohol and Drug Abuse Patient Records regulations: The Federal rules restrict any use of the information to criminally investigate or prosecute any alcohol or drug abuse patient.[facility] HospitalIn the event this information is protected by the Federal Confidentiality of Alcohol and Drug Abuse Patient Records regulations: The Federal rules restrict any use of the information to criminally investigate or prosecute any alcohol or drug abuse patient.[facility] HospitalIn the event this information is protected by the Federal Confidentiality of Alcohol and Drug Abuse Patient Records regulations: The Federal rules restrict any use of the information to criminally investigate or prosecute any alcohol or drug abuse patient.[facility] HospitalIn the event this information is protected by the Federal Confidentiality of Alcohol and Drug Abuse Patient Records regulations: The Federal rules restrict any use of the information to criminally investigate or prosecute any alcohol or drug abuse patient.[facility] Care Teams (unrecognized sec tion and content) Fee Clerk Relationship Specialty Start Date End Date Aries Carlos Carrillo PCP - General Gerontology 12/28/16 Fee Clerk Relationship Specialty Start Date End Date AriesCarlos bocanegra Chi PCP - General Gerontology 12/28/16 Fee Clerk Relationship Specialty Start Date End Date Aries, Carlos Chi PCP - General Gerontology 12/28/16 Fee Clerk Relationship Specialty Start Date End Date AriesCarlos bocanegra Chi PCP - General Gerontology 12/28/16 Fee Clerk Relationship Specialty Start Date End Date Ivelisse Phillip MD [address] [place] [address] PCP - General Internal Medicine 11/17/10 12/27/16 Carlos Chris Chi [address] [place] [address] PCP - General Gerontology 12/28/16 Fee Clerk Relationship Specialty Start Date End Date Carlos Chris Chi PCP - General Gerontology 12/28/16 Fee Clerk Relationship Specialty Start Date End Date Carlos Chris Chi PCP - General Gerontology 12/28/16 Fee Clerk Relationship Specialty Start Date End Date Carlos Chris Chi PCP - General Gerontology 12/28/16 Fee Clerk Relationship Specialty Start Date End Date Carlos Chris Chi PCP - General Gerontology 12/28/16 Fee Clerk Relationship Specialty Start Date End Date Carlos Chris Chi PCP - General Gerontology 12/28/16 Fee Clerk Relationship Specialty Start Date End Date Carlos Chris Chi PCP - General Gerontology 12/28/16 Fee Clerk Relationship Specialty Start Date End Date Carols Chris Chi PCP - General Gerontology 12/28/16 Fee Clerk Relationship Specialty Start Date End Date Higinio Chris MD [address] [facility] [address] [address] PCP - General 02/16/22 Fee Clerk Relationship Specialty Start Date End Date Carlos Chris Chi PCP - General Gerontology 12/28/16 Fee Clerk Relationship Specialty Start Date End Date Carlos Chris Chi PCP - General Gerontology 12/28/16 Fee Clerk Relationship Specialty Start Date End Date Carlos Chris Chi PCP - General Gerontology 12/28/16 Fee Clerk Relationship Specialty Start Date End Date Carlos Chris Chi PCP - General Gerontology 12/28/16 REASON FOR VISIT (unrecogniz ed section and content) Reason Comments Results Reason Comments Orders Reason Comments Pre-Op Visit Reason Comments Post Op Consult to [facility] Reason Comments Appointment Specialty Diagnoses / Procedures Referred By Contraul t Referred To Contact Diagnoses Peritoneal adhesions Adhesion of omentum Ovarian cyst, left Procedures CONSULT TO MINIMALLY INVASIVE GYNECOLOGIC SURGERY OFFICE/OUTPATIENT [facility] 60-74 MINUTES Gudelia Mi MD [address] [place] [address] Referral ID Status Reason Start Date Expiration Date V isits Requested Visits Authorized [id number] Closed PCP Requested Referral Auto-Generated Referral 03/23/2023 03/22/2024 1 1 Reason Comments Post Op Pain Reason Comments Medication Question Reason Comments Post Op 3 weeks Reason Comments Follow-up 13 MOS FUV RYGB Reason Comments Discussion Reason Comments Patient Question Reason Comments Radiology CT Specialty Diagnoses / Procedures Referred By Contac t Referred To Contact CT IMAGING Diagnoses Elevated AFP Abnormal tumor markers Procedures CT PELVIS W IVCON CT PELVIS W/CONTRAST MATERIAL Gudelia Mi MD [address] [place] [address] [place] [address] Referral ID Status Reason Start Date Expiration Date V isits Requested Visits Authorized [id number] Closed Auto-Generate d Referral 07/03/2024 09/01/2024 2 2 Specialty Diagnoses / Procedures Referred By Contac t Referred To Contact CT IMAGING Diagnoses Elevated AFP Abnormal tumor markers Procedures CT PELVIS W IVCON CT PELVIS W/CONTRAST MATERIAL Gudelia Mi MD [address] [place] [address] [place] [address] Goals (unrecognized section and content) INFORMATION SOURCE (unrecogn ized section and content) DATE CREATED AUTHOR 10/11/2022 [employer] DATE CREATED AUTHOR AUTHOR'S ORGANIZ ATION 01/14/2023 [facility] DATE CREATED AUTHOR AUTHOR'S ORGANIZ ATION 05/11/[address] [facility] DATE CREATED AUTHOR AUTHOR'S ORGANIZ ATION 05/21/2024 [facility] DATE CREATED AUTHOR AUTHOR'S ORGANIZ ATION 07/21/2024 [facility] FOR RECORDS PERTAINING TO PATIENTS [...] BE BASED ON THE PRIMARY CLINICAL RECORDS. [employer] [facility]. provides no warranty or guarantee of the accuracy or completeness of information in this document.
== END | disposition home or self-care (01) ==
LOC: POLAB3 11:52
PROVIDERS: PCP Family Medicine Geriatric Medicine; Visit Provider Family Medicine Geriatric Medicine
DX: R68.83 Chills (without fever) (principal)
CPT/HCPCS: 87631

== ENCOUNTER → 2024-08-03 | Outpatient (CLI) | payer MEDICAID, SELFPAY ==
[2024-08-03 11:55] LABS: T4 Free Direct 2.92 ng/dL (0.76-1.46); Thyroid Stim Hormone (TSH) 0.279 uIU/mL (0.358-3.740)
[2024-08-04 08:11] LABS: T3UP 49 % (24-39)
== END | disposition home or self-care (01) ==
LOC: LAB 10:23
PROVIDERS: PCP Family Medicine Geriatric Medicine; Referring Provider Family Medicine Geriatric Medicine; Visit Provider Family Medicine Geriatric Medicine
DX: E03.9 Hypothyroidism, unspecified (principal)
CPT/HCPCS: 36415; 84439; 84443; 84479

== ENCOUNTER → 2024-08-21 | Outpatient (CLI) | payer MEDICAID, SELFPAY ==
[2024-08-21 11:05] LABS: Absolute Lymphocyte Count 2.07 X10^3/uL (0.83-4.51); Absolute Neutrophil Count 3.2 X10^3/uL (2.0-7.7); Basophil# 0.05 X10^3/uL; Basophil% 0.9 % (0-1); Eosinophil# 0.06 X10^3/uL; Hematocrit 38.3 % (37-47); Hemoglobin 12.6 g/dL (12.0-15.0); Lymphocyte # 2.07 X10^3/ul (0.83-4.51); Lymphocyte % 35.5 % (19-41); Mean Corp Hgb Conc 32.9 g/dL (32-36); Mean Corpuscular Hgb 30.4 pg (27.0-32.0); Mean Corpuscular Volume 92.3 fL (81-99); Monocyte# 0.46 X10^3/uL; Monocyte% 7.9 % (0-10); NRBC Flagged by Analyzer 0 % (0-5); Neutrophil # 3.17 X10^3/uL (2.7-7.7); Neutrophil % 54.4 % (47-70); Platelet Count 339 K/mm3 (150-450); RBC Distribution Width CV 12.3 % (11.6-14.6); RBC Distribution Width SD 41.4 fl (35.1-43.9); Red Blood Count 4.15 M/mm3 (4.2-5.4); White Blood Count 5.8 K/mm3 (4.4-11.0)
[2024-08-21 11:14] LABS: International Normalized Ratio 1.1; Prothrombin Time (Protime)PT. 14.1 SECONDS (11.7-14.9)
[2024-08-21 11:36] LABS: ALB/GLOB Ratio 0.9 RATIO (0.9-2.4); AST(SGOT) 25 U/L (15-37); Alanine Aminotransfer ALT/SGPT 25 U/L (13-56); Albumin, Serum 3.7 g/dL (3.2-5.0); Alkaline Phosphatase 87 U/L (45-117); Anion Gap 5 (5-15); BUN 13 mg/dL (7-18); BUN/Creat Ratio 14.3 RATIO (10-20); Calcium,Total 9.1 mg/dL (8.5-10.1); Chloride 105 mmol/L (98-107); Creatinine, Serum 0.91 mg/dL (0.55-1.02); EST Glomerular Filtration Rate 71 mL/min (>60); Est Glom Filt Rate - Afr Amer 86 mL/min (>60); Globulin 4.1 g/dL (2.2-4.2); Glucose 88 mg/dL (74-106); Protein, Total 7.8 g/dL (6.4-8.2); Sodium Level 138 mmol/L (136-145); Thyroid Stim Hormone (TSH) 0.143 uIU/mL (0.358-3.740)
[2024-08-22 04:08] LABS: AFP, Tumor Marker 2.6 ng/mL (0.0-6.4)
== END | disposition home or self-care (01) ==
PROVIDERS: PCP Family Medicine Geriatric Medicine; Referring Provider Internal Medicine Gastroenterology; Visit Provider Internal Medicine Gastroenterology
DX: E03.9 Hypothyroidism, unspecified (principal); K76.0 Fatty (change of) liver, not elsewhere classified
CPT/HCPCS: 36415; 80053; 82105; 84443; 85025; 85610

== ENCOUNTER → 2024-09-11 | Outpatient (CLI) | payer MEDICAID, SELFPAY ==
[2024-09-11 10:28] LABS: Platelet Count 253 K/mm3 (150-450)
[2024-09-11 10:43] LABS: International Normalized Ratio 1.1
[2024-09-11 10:44] LABS: Partial Thromboplast Time 27.1 Seconds (24.1-36.2)
[2024-09-11 10:54] LABS: Thyroid Stim Hormone (TSH) 0.043 uIU/mL (0.358-3.740)
== END | disposition home or self-care (01) ==
LOC: LAB 10:05
PROVIDERS: Internal Medicine Gastroenterology; PCP Family Medicine Geriatric Medicine; Referring Provider Family Medicine Geriatric Medicine; Visit Provider Family Medicine Geriatric Medicine
DX: E03.9 Hypothyroidism, unspecified (principal); K76.0 Fatty (change of) liver, not elsewhere classified
CPT/HCPCS: 36415; 84443; 85049; 85610; 85730

== ENCOUNTER → 2024-09-12 | Outpatient (CLI) | payer MEDICAID, SELFPAY ==
[2024-09-12] VITALS (13 sets, daily range): BP systolic 91–132; BP diastolic 53–83; PULSE 57–67; RESP 10–18; TEMP 36.6; O2SAT 95–100; BMI 25.1
--- NOTE | 2024-09-12 07:44 | CT_ITS ---
PROCEDURE: CT DIRECTED CORE LIVER BIOPSY INDICATION: Female, 48 years old. Fatty liver PHYSICIAN: Dr. Any Will CONSENT: Written informed consent was obtained having explained the risks, benefits and alternatives in detail with the patient who accepted the risks and agreed to proceed. Laboratory review and clinical assessment was performed. CONSCIOUS SEDATION PROTOCOL: The Drugs used were: 3 mg Versed, IV., and 75 mcg Fentanyl, IV. The sedation time was: 24 minutes. Conscious sedation was started at 8:42 AM and terminated at 9:06 AM. The conscious sedation protocol was independently monitored. RADIATION DOSAGE (If Supplied By Facility): CTDIvol = ( 10.5 ) mGy, DLP = ( 659.81 ) mGycm Individualized dose optimization techniques were used for this CT. TECHNIQUE: Using CT image guidance with image documentation, a suitable location in the right lobe of the liver was identified. Using a right lateral approach, puncture of the liver was uneventful with an 18-gauge core needle system. 4, 18-gauge core samples were obtained, and submitted in formalin to the pathologist for further assessment. Followup CT scan revealed no distinct sequelae. CT/Biopsy/Inj or Needle Placement IMPRESSION: 1. CT directed core needle biopsy of the liver, using CT image guidance with image documentation as described. 2. Conscious Sedation protocol utilized with independent monitoring. Electronically Signed: Carlos Agarwal MD at 9:41 EST ,
[2024-09-12] MEDS: Midazolam 2 MG/2 ML Syringe IV ×2 (08:42→09:00)
[2024-09-12] MEDS: fentaNYL 100 MCG/2 ML Ampul IV ×2 (08:45→09:00)
[2024-09-12] MEDS: 0.9% Saline Lock 10 ML Syringe IV (08:46)
[2024-09-12] MEDS: Lidocaine 2% (20 ml mdv) 20 ML Vial INFILT (09:00)
--- NOTE | 2024-09-12 09:05 | LIVB_PTH ---
PATIENT: ROMAIN WESLEY LOC: [place] U#:[id number] AGE/SX: 48/F ROOM: RE09/12/[address]: Dr. Kristofer An DO : 1975 BED: DIS: 09/12/2024 SPEC #: [id number] RECD: 09/12/24 09:16 STATUS: AZAEL REPer #: [id number] IGNACIA: 09/12/24 09:[address]: Kristofer An DEPT: SURGICAL PATHOLOGY RECD BY: Karyn Dye ENTERED: 09/12/24 11:27 SP TYPE: LIVER BX OTHR DR: Dr. Carlos Chris MD Tissues: Liver, NOS Procedures: PAS with Diastase (control) Trichrome (control) Special Stain Group I PAS Stain (control) Surgery Specimen Level V Retic (control) Iron Stain (control) HEADER OPERATION: Liver biopsy PRE-OP DIAGNOSIS: Fatty liver TISSUE SUBMITTED: 18 gauge x 4 cores MICROSCOPIC DIAGNOSIS Liver, CT guided core biopsy: Liver parenchyma with mild sinusoidal expansion and minimal inflammation (Modified Knodell scoring system- Grade 1-2). No evidence of cirrhosis. See comment. AM. 09/13/2024 COMMENT Sections show expansion of sinusoids. Most portal regions have minimal inflammation. A single portal area displays expansion by chronic inflammatory cells comprising mostly of lymphocytes, rare plasma cell and rare eosinophils. Reticulin and trichrome stains do not reveal cirrhosis or fibrosis. PAS and PASD stains do not show accumulation of abnormal proteins. Iron stain does not show accumulation of intraparenchymal iron. There is no evidence of malignancy. All matched controls are appropriate. Hepatic steatosis is not identified. Clinical correlation is suggested. MICROSCOPIC DESCRIPTION Slides are reviewed. GROSS DESCRIPTION Received is one container labeled with the patient's name and not further designated. The specimen consists of multiple elongated cores of light durand soft tissue that in aggregate measure 1.5 x 0.2 x <0.1 cm. The specimen is totally submitted in one cassette. AM. 09/12/2024 TC:3 CPT:03424,75199c1
== END | disposition home or self-care (01) ==
LOC: CT 07:44
PROVIDERS: PCP Family Medicine Geriatric Medicine; Referring Provider Internal Medicine Gastroenterology; Visit Provider Internal Medicine Gastroenterology
DX: K76.0 Fatty (change of) liver, not elsewhere classified (principal)
CPT/HCPCS: 47000; 77012; 88307; 88312; 99156; A4216

== ENCOUNTER → 2024-09-17 | Outpatient (CLI) | payer MEDICAID, SELFPAY ==
--- NOTE | 2024-09-17 09:02 | RAD_ITS ---
STUDY: X-RAY - ABDOMEN/PELVIS REASON FOR EXAM: Female, 48 years old. KUB- KIDNEY STONES TECHNIQUE: Single AP view of the abdomen / pelvis. COMPARISON: None. FINDINGS: Normal visualized lung bases. There is an unremarkable bowel gas pattern. The visualized liver, spleen and kidneys are grossly normal in size and morphology. Normal soft tissue structures. Normal visualized osseous structures. RAD/Abdomen Single View IMPRESSION: Normal x-ray examination of the abdomen and pelvis. Electronically Signed: Edgard Cm MD at 8:58 EST ,
== END | disposition home or self-care (01) ==
LOC: MTRAD 09:00
PROVIDERS: PCP Family Medicine Geriatric Medicine; Referring Provider Urology; Visit Provider Urology
DX: N20.0 Calculus of kidney (principal)
CPT/HCPCS: 74018

== ENCOUNTER → 2024-09-24 | Outpatient (CLI) | payer MEDICAID, SELFPAY ==
[2024-09-24 12:15] LABS: Absolute Lymphocyte Count 2.83 X10^3/uL (0.83-4.51); Absolute Neutrophil Count 3.1 X10^3/uL (2.0-7.7); Basophil# 0.08 X10^3/uL; Basophil% 1.2 % (0-1); Eosinophils% 1.5 % (0-5); Hematocrit 38.4 % (37-47); Hemoglobin 12.3 g/dL (12.0-15.0); Lymphocyte # 2.83 X10^3/ul (0.83-4.51); Lymphocyte % 43.3 % (19-41); Mean Corpuscular Hgb 29.7 pg (27.0-32.0); Mean Corpuscular Volume 92.8 fL (81-99); Mean Platelet Vol. 10.8 fl (6.2-12.0); Monocyte# 0.44 X10^3/uL; Monocyte% 6.7 % (0-10); NRBC Flagged by Analyzer 0 % (0-5); Neutrophil # 3.08 X10^3/uL (2.7-7.7); Neutrophil % 47.1 % (47-70); Platelet Count 300 K/mm3 (150-450); RBC Distribution Width CV 12.5 % (11.6-14.6); RBC Distribution Width SD 42.6 fl (35.1-43.9); Red Blood Count 4.14 M/mm3 (4.2-5.4); White Blood Count 6.5 K/mm3 (4.4-11.0)
[2024-09-24 13:55] LABS: ALB/GLOB Ratio 0.9 RATIO (0.9-2.4); AST(SGOT) 27 U/L (15-37); Alanine Aminotransfer ALT/SGPT 25 U/L (13-56); Albumin, Serum 3.5 g/dL (3.2-5.0); Alkaline Phosphatase 78 U/L (45-117); Anion Gap 5 (5-15); BUN 13 mg/dL (7-18); BUN/Creat Ratio 13.5 RATIO (10-20); Calcium,Total 8.9 mg/dL (8.5-10.1); Chloride 105 mmol/L (98-107); Creatinine, Serum 0.96 mg/dL (0.55-1.02); EST Glomerular Filtration Rate 66 mL/min (>60); Est Glom Filt Rate - Afr Amer 80 mL/min (>60); Glucose 85 mg/dL (74-106); Protein, Total 7.5 g/dL (6.4-8.2); Sodium Level 138 mmol/L (136-145)
== END | disposition home or self-care (01) ==
LOC: POLAB3 11:48
PROVIDERS: PCP Family Medicine Geriatric Medicine; Visit Provider Family Medicine Geriatric Medicine
DX: Z01.818 Encounter for other preprocedural examination (principal)
CPT/HCPCS: 36415; 80053; 85025

== ENCOUNTER 2024-10-13 16:09 | Observation (INO) | payer MEDICAID, SELFPAY ==
[2024-10-13] VITALS (7 sets, daily range): BP systolic 101–124; BP diastolic 68–86; PULSE 60–81; RESP 16–18; TEMP 36.3–36.8; O2SAT 97–100; BMI 26.4; BMI 25.0
[2024-10-13 17:56] LABS: Absolute Lymphocyte Count 1.84 X10^3/uL (0.83-4.51); Absolute Neutrophil Count 7.5 X10^3/uL (2.0-7.7); Basophil# 0.05 X10^3/uL; Basophil% 0.5 % (0-1); Eosinophil# 0.02 X10^3/uL; Eosinophils% 0.2 % (0-5); Hematocrit 40.5 % (37-47); Hemoglobin 13.1 g/dL (12.0-15.0); Lymphocyte # 1.84 X10^3/ul (0.83-4.51); Lymphocyte % 18.8 % (19-41); Mean Corp Hgb Conc 32.3 g/dL (32-36); Mean Corpuscular Hgb 29.5 pg (27.0-32.0); Mean Corpuscular Volume 91.2 fL (81-99); Mean Platelet Vol. 10.4 fl (6.2-12.0); Monocyte# 0.35 X10^3/uL; Monocyte% 3.6 % (0-10); NRBC Flagged by Analyzer 0 % (0-5); Neutrophil # 7.48 X10^3/uL (2.7-7.7); Neutrophil % 76.6 % (47-70); Platelet Count 286 K/mm3 (150-450); RBC Distribution Width CV 12.5 % (11.6-14.6); RBC Distribution Width SD 41.5 fl (35.1-43.9); Red Blood Count 4.44 M/mm3 (4.2-5.4); White Blood Count 9.8 K/mm3 (4.4-11.0)
[2024-10-13 18:10] LABS: Internal QC Validated? YES +Cl - CLEAR BKGD; Pregnancy, Serum, hCG Quali. NEGATIVE Negative
--- NOTE | 2024-10-13 18:11 | CT_ITS ---
STUDY: CT ABDOMEN AND PELVIS WITH CONTRAST REASON FOR EXAM: Female, 49 years old. Pain RADIATION DOSAGE (If Supplied By Facility): CTDIvol = ( 6.10 ) mGy, DLP = ( 290.92 ) mGycm TECHNIQUE: Transaxial images were obtained from the dome of the diaphragm to the symphysis pubis without oral contrast. IV 75mL Isovue-370 was administered. Sagittal and coronal images were reconstructed. Individualized dose optimization techniques were used for this CT. COMPARISON: April 04, 2024 FINDINGS: Small calcified granuloma in right lower lobe. The visualized portions of the heart are within normal limits. Normal liver. Normal gallbladder and extrahepatic biliary system. Multiple tiny granulomatous calcifications within the spleen. Normal pancreas. Normal bilateral adrenal glands. Normal right kidney. 3 tiny nonobstructing left renal calculi Postop change status post gastrojejunostomy. Normal small intestine. Mild nonspecific colonic ileus containing fluid as well as fecal material No evidence for acute appendicitis. Normal abdominal aorta. Normal inferior vena cava. Normal retroperitoneum. Poorly distended thick walled bladder of uncertain significance Uterus not visualized status post hysterectomy Normal abdominal wall. Lumbar spine demonstrates mild degenerative change. CT/Abdomen/Pelvis WITH Contrast IMPRESSION: Mild nonspecific colonic ileus containing both fluid as well as fecal material No evidence for small bowel obstruction or other acute abnormality status post gastrojejunostomy and hysterectomy... Left nephrolithiasis without evidence for renal obstruction or ureteral calculus Electronically Signed: Steven Marroquin MD at 19:31 EST ,
--- NOTE | 2024-10-13 18:12 | EDS_ITS ---
HPI HPI - GI History of Present Illness Chief Complaint: Abd Pain Diarrhea/Melena/Hematochezia GI Symptom: Positive for Diarrhea Onset: Today Stool Quality: Positive for Watery Severity: Moderate Narrative Narrative: 49-year-old female status post bariatric surgery 2 years ago presents with abdominal pain that began yesterday but intensified today. She states that started having abdominal pain around her navel yesterday. This morning, she ate a banana and had increased pain. Later in the afternoon she ate something else and her pain intensified. She has pain in her right upper quadrant to epigastrium area. She states she cannot eat that much because of her bariatric surgery. She vomited once without any hematemesis but then started having a large amount of liquid stool. She denies any fevers or chills. No exacerbating or alleviating factors to her pain. 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 Right foot pain Right knee pain Knee pain Stage 3 chronic kidney disease Vitamin D deficiency Postablative hypothyroidism Clostridium difficile infection Wears glasses Pain aggravated by walking Chest pain Obesity Coronary artery calcification Paresthesia Anxiety DDD (degenerative disc disease), thoracic Segmental and somatic dysfunction of thoracic region Osteoarthritis Asthma Depression Hypothyroidism Essential (primary) hypertension Hyperlipidemia Home Medications ?Medication ?Instructions ?Recorded ?Last Taken ?Type rosuvastatin 40 mg tablet (Crestor) 40 mg PO DAILY #30 tabs 08/07/20 Unknown Rx alprazolam 0.5 mg tablet (Xanax) 0.5 mg PO QHS PRN Anxiety 04/06/21 Unknown History allopurinol 100 mg tablet 100 mg PO DAILY 03/10/23 Unknown History calcium citrate malate-vit D3 1 ea PO/SL DAILY 03/10/23 Unknown History cyanocobalamin (B12)-cobamamide 1 sona sublingual DAILY 03/10/23 Unknown History 5,000 mcg-100 mcg sublingual lozenge (B12) pediatric multivitamin no.76 2 tab PO DAILY 03/10/23 Unknown History (Flintstones Complete chewable tablet) albuterol sulfate 90 mcg/actuation 2 puff inhalation Q4H PRN 03/29/23 Unknown Rx aerosol inhaler shortness of breath or wheezing #1 device estradiol 0.075 mg/24 hr weekly 1 patch transdermal TH 07/22/23 Unknown History transdermal patch vilazodone 10 mg tablet 20 mg PO QHS 07/22/23 Unknown History levothyroxine 150 mcg capsule 137 mcg PO QDAY 08/22/24 Unknown History vitamin E (dl, acetate) 180 mg 180 mg PO QDAY 08/22/24 Unknown History (400 unit) capsule resmetirom 80 mg tablet (Rezdiffra) 80 mg PO QDAY #30 tabs 09/24/24 Unknown Rx Allergy/AdvReac Type Severity Reaction Status Date / Time citalopram Allergy unknown Verified 10/13/24 16:10 codeine Allergy Unknown Verified 10/13/24 16:10 lithium Allergy Unknown Verified 10/13/24 16:10 Family History Mother Diabetes Breast cancer Anemia Depression Hypertension Father Diabetes Heart disease Hypertension CVA (cerebral vascular accident) in his 40'2 from CVA Hyperlipemia Brother Asthma Hypertension CAD (coronary artery disease), Onset Age: 50 coronary stents Sister Depression Seizures Grandmother Diabetes Thyroid disorder Heart disease Grandfather Diabetes Thyroid disorder Heart disease Aunt Heart disease CAD (coronary artery disease) stents Uncle Heart disease CAD (coronary artery disease) stents Other Arthritis Surgical History History of foot surgery Hx of bilateral salpingo-oophorectomy Bariatric surgery status Hx of colonoscopy Hx of right knee surgery Hx of appendectomy H/O tooth extraction History of appendectomy History of section, classical History of hysterectomy History of eyelid surgery Social History Smoking Status: Never smoker second hand exposure: No alcohol intake: never substance use type: does not use caffeine: Yes frequency: does not exercise ROS ROS ED ROS Narrative Constitutional: No fever, no chills. HEENT: No sore throat. No neck pain. No loss of vision. No rhinorrhea. Cardiovascular: No chest pain. No palpitations. No pedal edema. Respiratory: No cough, no shortness of breath. Abdominal: Positive abdominal pain. 1 episode of nausea and vomiting. Multiple episodes of diarrhea. No hematemesis. No melena. Genitourinary: No dysuria. No hematuria. Musculoskeletal: No myalgias. No arthralgias. Neurologic: No headaches. No dizziness. No lightheadedness. EXAM Physical Exam Narrative Exam Narrative: Afebrile. Vital signs noted. Cardiovascular examination feels a regular rate and rhythm. Lungs are clear to auscultation bilaterally. The abdomen is soft with diffuse tenderness to palpation around the umbilicus. She has also has mild pain in the epigastrium and towards the right upper quadrant. Positive bowel sounds hyperactive bowel sounds. Const Vital Signs: 10/13/24 16:09 10/13/24 18:00 10/13/24 19:31 Temperature 98 F 98 F Temperature Source Oral Oral Pulse Rate 81 67 Respiratory Rate 16 16 Blood Pressure 112/86 H 101/68 107/68 Blood Pressure Mean 94 79 81 Pulse Ox 100 98 Oxygen Delivery Method Room Air Room Air 10/13/24 19:54 Temperature 98.3 F Temperature Source Pulse Rate 60 Respiratory Rate 16 Blood Pressure 107/68 Blood Pressure Mean 81 Pulse Ox 100 Oxygen Delivery Method MDM MDM MDM Narrative Medical decision making narrative: Differential diagnosis includes but not limited to pancreatitis versus cholecy stitis versus diverticulitis versus bowel obstruction. She may have gastroenteritis as well. Initial laboratories were obtained per protocol. I added a lipase. Additionally I do feel CT imaging is indicated to help rule out obstruction. She was given morphine and ondansetron for pain and analgesia. I reviewed her laboratory work initially returned and she has normal white count 9.8 with hemoglobin 13.1 and platelet count normal at 286. Her serum test is negative. I reviewed her CMP and she has a chloride of 110 BUN normal at 13 with creatinine 1.02, no dehydration. Glucose elevated at 101. LFTs are grossly unremarkable. Lipase is elevated at 118. This may be secondary to her vomiting. Of significance is the CT of the abdomen pelvis. While there is no small bowel obstruction, there is evidence of a colonic ileus. Upon repeat examination, patient states she is still having mild abdominal pain. I discussed with her observation versus treatment at home for her ileus. She requested that I discussed the patient with her medicare compliance auditor, Dr. An. I was able to discuss the patient with Dr. An and he agrees with observation given the patient's history of gastric bypass and previous small bowel obstructions.. I then discussed the patient with the hospitalist, Dr. Hernandez. Disposition is admit in stable condition. History & Record Review Discussion w/independent historian: Patient Lab Data Attestation: I reviewed the patient's lab results. Labs: Laboratory Results - last 24 hr 10/13/24 10/13/24 17:47 19:00 WBC 9.8 RBC 4.44 Hgb 13.1 Hct 40.5 MCV 91.2 MCH 29.5 MCHC 32.3 RDW Std Deviation 41.5 RDW Coeff of Dianna 12.5 Plt Count 286 MPV 10.4 Immature Gran % (Auto) 0.300 Neut % (Auto) 76.6 H Lymph % (Auto) 18.8 L [place] % (Auto) 3.6 Eos % (Auto) 0.2 Baso % (Auto) 0.5 Absolute Neuts (auto) 7.5 Absolute Lymphs (auto) 1.84 Nucleated RBC % 0 Sodium 139 Potassium 4.9 Chloride 110 H Carbon Dioxide 26.0 Anion Gap 3 L BUN 13 Creatinine 1.02 Estim Creat Clear Calc 58.23 Est GFR (MDRD) Af Amer 75 Est GFR (MDRD) Non-Af 62 BUN/Creatinine Ratio 12.7 Glucose 101 Calcium 8.7 Total Bilirubin 0.80 AST 26 ALT 30 Alkaline Phosphatase 87 Total Protein 7.8 Albumin 3.7 Globulin 4.1 Albumin/Globulin Ratio 0.9 Lipase 118 H Serum , Qual NEGATIVE Urine Color Yellow Urine Clarity Clear Urine pH 6.0 Ur Specific [place] 1.020 Urine Protein 15 H Urine Glucose (UA) Normal Urine Ketones Negative Urine Occult Blood Negative Urine Nitrite Positive H Urine Bilirubin Negative Urine Urobilinogen Normal Ur Leukocyte Esterase 25 H Urine RBC 0 SEEN Urine WBC 0-5 SEEN Ur Squamous Epith Cells 0-5 SEEN Urine Bacteria 3+ Urine Mucus 1+ Radiography Diagnostic Testing: Clinical Impression(s) from Imaging Studies Abdomen/Pelvis CT 10/13/24 18:11 IMPRESSION: Mild nonspecific colonic ileus containing both fluid as well as fecal material No evidence for small bowel obstruction or other acute abnormality status post gastrojejunostomy and hysterectomy... Left nephrolithiasis without evidence for renal obstruction or ureteral calculus Electronically Signed: Steven Marroquin MD at 19:31 EST Reading Location ID and State: [address] [place] [address] Tel , Service support , Management Discussion w/another healthcare provider: Hospitalist and Special Education Curriculum Specialist Discharge Plan Triage Chief Complaint: Abd Pain ED Provider: Ramirez Stanley Dx/Rx/DC Orders Clinical Impression: Abdominal pain, Ileus, unspecified, Diarrhea, Elevated lipase Primary Care Provider: Carlos Chris Chi
[2024-10-13 18:17] LABS: ALB/GLOB Ratio 0.9 RATIO (0.9-2.4); AST(SGOT) 26 U/L (15-37); Alanine Aminotransfer ALT/SGPT 30 U/L (13-56); Albumin, Serum 3.7 g/dL (3.2-5.0); Alkaline Phosphatase 87 U/L (45-117); Anion Gap 3 (5-15); BUN 13 mg/dL (7-18); BUN/Creat Ratio 12.7 RATIO (10-20); Calcium,Total 8.7 mg/dL (8.5-10.1); Chloride 110 mmol/L (98-107); Creatinine, Serum 1.02 mg/dL (0.55-1.02); EST Glomerular Filtration Rate 62 mL/min (>60); Est Glom Filt Rate - Afr Amer 75 mL/min (>60); Estimated Creatinine Clearance 58.23 ml/min; Globulin 4.1 g/dL (2.2-4.2); Glucose 101 mg/dL (74-106); Potassium 4.9 mmol/L (3.5-5.1); Protein, Total 7.8 g/dL (6.4-8.2); Sodium Level 139 mmol/L (136-145)
[2024-10-13] MEDS: Ondansetron 4 MG/2 ML Vial IV (18:27)
[2024-10-13] MEDS: Morphine 4 MG/ML Syringe IV ×2 (18:27→22:46)
[2024-10-13 19:08] LABS: Lipase 118 U/L (13-75)
[2024-10-13 19:10] LABS: Red Blood Cells-Urine 0 SEEN /hpf (0-5)
[2024-10-13 19:12] LABS: Color, Urine Yellow (Yellow); Glucose, Dipstick Normal (Normal); Ketone-Dipstick Negative (Negative); Leukocyte Esterase-Dipstick 25 /ul (Negative); Nitrite-Dipstick Positive (Negative); Occult Blood-Urine Negative /ul (Negative); Protein-Dipstick 15 mg/dl (Negative); Urine Bilirubin Dipstick Negative (Negative); Urine Clarity Clear (Clear); Urine Urobilinogen Normal (Normal)
[2024-10-13 19:19] LABS: Squamous Epithelial Cells - UA 0-5 SEEN /hpf (5-10); White Blood Cells 0-5 SEEN /hpf (0-5)
[2024-10-13 19:20] LABS: Bacteria 3+ /hpf (None Seen); Mucous, Urine 1+ /hpf (<or=2+)
--- NOTE | 2024-10-13 19:59 | PCM.HP.STD ---
HPI - General General Date of Admission: 10/13/24 Date of Service: 10/13/24 Chief Complaint: Abdominal pain/N/V/D HPI Narrative ROMAIN WESLEY, is a 49 F who presented to the emergency department at [facility] on 10/13/2024 with a chief complaint of abdominal pain, nausea, vomiting, diarrhea. Patient stated about 2 to 3 days ago she started with abdominal pain that was nonspecific but predominantly in her lower abdomen area. She stated today it was worse and she was in the position and she had some nausea with emesis x 1 and after her emesis had a very of significant long bowel movement that was watery. She does have a history of C. difficile. Denies any recent antibiotics and is unable to tell me if this is consistent with her previous C. difficile infection. She has a history of gastric bypass so she states her stools are now normal at baseline anyway. She has had no fever or chills. She denies any urinary symptoms at all. She has had no sick contacts of which she is aware. Vital signs on presentation showed temperature 98, heart rate 81, blood pressure 112/86, respiratory 16 and oxygen saturation 100% on room air. CBC is unremarkable other than a mild left shift with a neutrophilia at 76.6%. Chemistry panel showed normal electrolytes with relatively normal baseline renal function, glucose was 101 and liver functions were normal. She does have a mildly elevated lipase but is not consistent at 3 times the upper limit of normal for pancreatitis with her lipase being only 118. Urine test is negative. Her UA shows mild dehydration with a specific gravity of 0.02 is positive for nitrites and mild leuk esterase however she has no white cells. There is 3+ bacteria but she has no symptoms. CT then pelvis showed a mild nonspecific colonic ileus continue with fluid and fecal material, no evidence of small bowel obstruction or any other acute abnormality, she has noted to be status post gastrojejunostomy and hysterectomy, left nephrolithiasis without evidence of renal obstruction or ureteral calculus is noted. She was treated with antiemetics, pain medication and IV fluids emergency department and case was discussed with Dr. An. He did indicates she has history of bowel obstructions and recommended observation status to ensure she improves clinically. 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 Right foot pain Right knee pain Knee pain Stage 3 chronic kidney disease Vitamin D deficiency Postablative hypothyroidism Clostridium difficile infection Wears glasses Pain aggravated by walking Chest pain Obesity Coronary artery calcification Paresthesia Anxiety DDD (degenerative disc disease), thoracic Segmental and somatic dysfunction of thoracic region Osteoarthritis Asthma Depression Hypothyroidism Essential (primary) hypertension Hyperlipidemia Home Medications ?Medication ?Instructions ?Recorded ?Last Taken ?Type rosuvastatin 40 mg tablet (Crestor) 40 mg PO DAILY #30 tabs 08/07/20 Unknown Rx alprazolam 0.5 mg tablet (Xanax) 0.5 mg PO QHS PRN Anxiety 04/06/21 Unknown History allopurinol 100 mg tablet 100 mg PO DAILY 03/10/23 Unknown History calcium citrate malate-vit D3 1 ea PO/SL DAILY 03/10/23 Unknown History cyanocobalamin (B12)-cobamamide 1 sona sublingual DAILY 03/10/23 Unknown History 5,000 mcg-100 mcg sublingual lozenge (B12) pediatric multivitamin no.76 2 tab PO DAILY 03/10/23 Unknown History (Flintstones Complete chewable tablet) albuterol sulfate 90 mcg/actuation 2 puff inhalation Q4H PRN 03/29/23 Unknown Rx aerosol inhaler shortness of breath or wheezing #1 device estradiol 0.075 mg/24 hr weekly 1 patch transdermal TH 07/22/23 Unknown History transdermal patch vilazodone 10 mg tablet 20 mg PO QHS 07/22/23 Unknown History levothyroxine 150 mcg capsule 137 mcg PO QDAY 08/22/24 Unknown History vitamin E (dl, acetate) 180 mg 180 mg PO QDAY 08/22/24 Unknown History (400 unit) capsule resmetirom 80 mg tablet (Rezdiffra) 80 mg PO QDAY #30 tabs 09/24/24 Unknown Rx Allergy/AdvReac Type Severity Reaction Status Date / Time citalopram Allergy unknown Verified 10/13/24 16:10 codeine Allergy Unknown Verified 10/13/24 16:10 lithium Allergy Unknown Verified 10/13/24 16:10 Family History Mother Diabetes Breast cancer Anemia Depression Hypertension Father Diabetes Heart disease Hypertension CVA (cerebral vascular accident) in his 40'2 from CVA Hyperlipemia Brother Asthma Hypertension CAD (coronary artery disease), Onset Age: 50 coronary stents Sister Depression Seizures Grandmother Diabetes Thyroid disorder Heart disease Grandfather Diabetes Thyroid disorder Heart disease Aunt Heart disease CAD (coronary artery disease) stents Uncle Heart disease CAD (coronary artery disease) stents Other Arthritis Surgical History History of foot surgery Hx of bilateral salpingo-oophorectomy Bariatric surgery status Hx of colonoscopy Hx of right knee surgery Hx of appendectomy H/O tooth extraction History of appendectomy History of section, classical History of hysterectomy History of eyelid surgery Social History Smoking Status: Never smoker second hand exposure: No alcohol intake: never substance use type: does not use caffeine: Yes frequency: does not exercise ROS Constitutional Constitutional: Denies anorexia, change in weight, chills, fatigue, fever(s), malaise, night sweats, weakness or other Eyes Eyes: Denies blurry vision, change in eye color, change in vision, discharge from eye(s), double vision, erythema, eye pain, loss of vision or other ENT HEENT: Denies abnormal hearing, dysphagia, ear pain, epistaxis, headache(s), hearing loss, nasal congestion, nasal discharge, post nasal drip, sinus pressure, sore throat or other Cardiovascular Cardiovascular: Denies chest pain, claudication, dyspnea on exertion, edema, lightheadedness, orthopnea, palpitations, paroxysmal nocturnal dyspnea, rapid heart rate, syncope or other Respiratory/Chest Respiratory/Chest: Denies cough, dyspnea, excessive phlegm production, hemoptysis, productive cough, shortness of breath at rest, shortness of breath with exertion, wheezing or other Gastrointestinal Gastrointestinal: Reports abdominal pain, diarrhea, nausea and vomiting; Denies coffee ground emesis, constipation, dyspepsia, hematemesis, hematochezia, loose stools, melena or other Genitourinary Genitourinary: Denies burning urination, difficulty urinating, dysuria, hematuria, nocturia, urinary frequency, urinary hesitancy, urinary incontinence, urinary urgency or other Musculoskeletal Musculoskeletal: Denies arthralgias, back pain, joint pain, joint stiffness, joint swelling, myalgias, neck pain or other Neurologic Neurologic: Denies abnormal gait, abnormal speech, confusion, disequilibrium, dizziness, focal weakness, headache(s), numbness, paresthesias, seizure-like activity, seizures, syncope, tingling, tremor(s) or other Psychiatric Psychiatric: Denies anxiety, depression, homicidal ideation, suicidal ideation or other Endocrine Endocrinology: Denies change in body appearance, cold intolerance, excessive sweating, heat intolerance, polydipsia, polyuria or other Hematologic/Lymphatic Hematologic/Lymphatic: Denies anemia, easy bleeding, easy bruising, lymphadenopathy or other Allergic/Immunologic Allergic/Immunologic: Denies rhinitis, hives, eczemia, asthma or other Vital Signs Vital Signs Vital Signs: 10/13/24 16:09 10/13/24 18:00 10/13/24 19:31 Temperature 98 F 98 F Temperature Source Oral Oral Pulse Rate 81 67 Respiratory Rate 16 16 Blood Pressure 112/86 H 101/68 107/68 Blood Pressure Mean 94 79 81 Pulse Ox 100 98 Oxygen Delivery Method Room Air Room Air 10/13/24 19:54 Temperature 98.3 F Temperature Source Pulse Rate 60 Respiratory Rate 16 Blood Pressure 107/68 Blood Pressure Mean 81 Pulse Ox 100 Oxygen Delivery Method Weight Weight: 63.548 kg Body Mass Index (BMI) 26.4 Physical Exam Const alert, oriented x3, no apparent distress, average body habitus and well nourished Constitutional Narrative: Middle-aged, white female, sitting up in bed, daughter at bedside, patient appears comfortable, does not look toxic General Appearance: cooperative HEENT normocephalic, head/scalp atraumatic, hearing grossly normal bilaterally and moist oral mucous membranes HEENT Narrative: Mallampati 2, no thrush Eyes conjunctivae normal Eyes Narrative: No scleral icterus Resp normal respiratory effort, no retractions, no use of accessory muscles and clear to auscultation bilaterally Auscultation: Negative for rales, rhonchi or wheezes Cardio regular rate, regular rhythm, S1 normal heart sound, S2 normal heart sound, no murmurs, no rub, no gallops and no clicks GI soft to palpation GI Narrative: Mild diffuse tenderness more significant in the lower abdominal area bilaterally and centrally, bowel sounds are hyperactive, abdomen is nondistended Extremity no clubbing, cyanosis or edema Extremity Narrative: Pedal and radial pulses are 2+ Neuro oriented x3, moves all extremities and no focal motor deficits Speech: speech normal Psych affect normal Psych Narrative: Very pleasant, interacts appropriately Results Lab / Micro Data 10/13/24 17:47 10/13/24 17:47 Labs: Laboratory Results - last 24 hr 10/13/24 17:47: WBC 9.8, RBC 4.44, Hgb 13.1, Hct 40.5, MCV 91.2, MCH 29.5, MCHC 32.3, RDW Std Deviation 41.5, RDW Coeff of Dianna 12.5, Plt Count 286, MPV 10.4, Immature Gran % (Auto) 0.300, Neut % (Auto) 76.6 H, Lymph % (Auto) 18.8 L, [place] % (Auto) 3.6, Eos % (Auto) 0.2, Baso % (Auto) 0.5, Absolute Neuts (auto) 7.5, Absolute Lymphs (auto) 1.84, Nucleated RBC % 0, Sodium 139, Potassium 4.9, Chloride 110 H, Carbon Dioxide 26.0, Anion Gap 3 L, BUN 13, Creatinine 1.02, Estim Creat Clear Calc 58.23, Est GFR (MDRD) Af Amer 75, Est GFR (MDRD) Non-Af 62, BUN/Creatinine Ratio 12.7, Glucose 101, Calcium 8.7, Total Bilirubin 0.80, AST 26, ALT 30, Alkaline Phosphatase 87, Total Protein 7.8, Albumin 3.7, Globulin 4.1, Albumin/Globulin Ratio 0.9, Lipase 118 H, Serum , Qual NEGATIVE 10/13/24 19:00: Urine Color Yellow, Urine Clarity Clear, Urine pH 6.0, Ur Specific [place] 1.020, Urine Protein 15 H, Urine Glucose (UA) Normal, Urine Ketones Negative, Urine Occult Blood Negative, Urine Nitrite Positive H, Urine Bilirubin Negative, Urine Urobilinogen Normal, Ur Leukocyte Esterase 25 H, Urine RBC 0 SEEN, Urine WBC 0-5 SEEN, Ur Squamous Epith Cells 0-5 SEEN, Urine Bacteria 3+, Urine Mucus 1+ Imaging Radiology Impression Abdomen/Pelvis CT 10/13/24 18:11 IMPRESSION: Mild nonspecific colonic ileus containing both fluid as well as fecal material No evidence for small bowel obstruction or other acute abnormality status post gastrojejunostomy and hysterectomy... Left nephrolithiasis without evidence for renal obstruction or ureteral calculus Electronically Signed: Steven Marroquin MD at 19:31 EST Reading Location ID and State: [address] [place] [address] Tel , Service support , Assessment & Plan Assessment/Plan (1) Ileus, unspecified: (2) Abdominal pain: (3) Diarrhea: (4) Nausea & vomiting: (5) Elevated lipase: PLAN: Plan Colonic ileus -Etiology is unclear -Patient with history of C. difficile we will check C. difficile PCR and toxin -Check enteric panel -Aggressive IV fluids -Antiemetics as needed -Check TSH -As needed pain medication for abdominal pain -N.p.o. except for sips and chips and p.o. medications -Will reevaluate clinically tomorrow and if she is clinically improving may be able to advance diet Elevated lipase -Exam is not consistent with pancreatitis and lipase level is not 3 times the upper limit of normal -Suspect this is related from her diarrhea and nausea and vomiting Nonalcoholic fatty liver disease -Follows with Friend as an outpatient -Has had elevated alpha-fetoprotein levels -Continue home medications Hypothyroidism -Continue home levothyroxine -Will check TSH Hyperlipidemia -Continue home rosuvastatin History of gout -Continue home allopurinol Depression/anxiety -Continue vilazodone -Continue home Xanax History of obesity -Status post gastric bypass surgery -Restart home vitamin supplementation at discharge DVT prophylaxis -Subcu Lovenox daily CODE STATUS -Full code Charges/Coding Visit Charges Inpatient E&M: 86119 Init Hosp L2
[2024-10-13] MEDS: 0.9% Normal Saline (1000mL) 1,000 ML 75 ML IV (22:31)
[2024-10-13] MEDS: 0.9% Saline Lock 10 ML Syringe IV ×2 (22:32→22:46)
[2024-10-13] MEDS: VILAZODONE HYDROCHLORIDE 10 MG TABLET 20 MG PO (23:30)
[2024-10-14 03:46] VITALS: BMI 25.0
[2024-10-14 04:20] VITALS: BP 93/56; PULSE 57; RESP 18; TEMP 36.2; O2SAT 98
[2024-10-14] MEDS: Levothyroxine 137 MCG Tablet PO (04:29)
[2024-10-14 05:25] LABS: Absolute Neutrophil Count 3.5 X10^3/uL (2.0-7.7); Basophil# 0.05 X10^3/uL; Basophil% 0.6 % (0-1); Eosinophil# 0.09 X10^3/uL; Eosinophils% 1.1 % (0-5); Hematocrit 33.6 % (37-47); Hemoglobin 10.9 g/dL (12.0-15.0); Lymphocyte % 48.2 % (19-41); Mean Corp Hgb Conc 32.4 g/dL (32-36); Mean Corpuscular Hgb 29.8 pg (27.0-32.0); Mean Corpuscular Volume 91.8 fL (81-99); Mean Platelet Vol. 10.6 fl (6.2-12.0); Monocyte# 0.53 X10^3/uL; Monocyte% 6.6 % (0-10); NRBC Flagged by Analyzer 0 % (0-5); Neutrophil # 3.51 X10^3/uL (2.7-7.7); Neutrophil % 43.4 % (47-70); Platelet Count 237 K/mm3 (150-450); RBC Distribution Width CV 12.6 % (11.6-14.6); RBC Distribution Width SD 42.2 fl (35.1-43.9); Red Blood Count 3.66 M/mm3 (4.2-5.4); White Blood Count 8.1 K/mm3 (4.4-11.0)
[2024-10-14 06:12] LABS: ALB/GLOB Ratio 0.9 RATIO (0.9-2.4); AST(SGOT) 19 U/L (15-37); Alanine Aminotransfer ALT/SGPT 22 U/L (13-56); Albumin, Serum 2.8 g/dL (3.2-5.0); Alkaline Phosphatase 64 U/L (45-117); Anion Gap 3 (5-15); BUN 12 mg/dL (7-18); BUN/Creat Ratio 14.7 RATIO (10-20); Calcium,Total 8.2 mg/dL (8.5-10.1); Chloride 110 mmol/L (98-107); Creatinine, Serum 0.82 mg/dL (0.55-1.02); EST Glomerular Filtration Rate 80 mL/min (>60); Est Glom Filt Rate - Afr Amer 96 mL/min (>60); Estimated Creatinine Clearance 67.67 ml/min; Globulin 3.2 g/dL (2.2-4.2); Glucose 76 mg/dL (74-106); Phosphorus 3.6 mg/dL (2.5-4.9); Potassium 4.3 mmol/L (3.5-5.1); Sodium Level 140 mmol/L (136-145); Thyroid Stim Hormone (TSH) 0.093 uIU/mL (0.358-3.740)
[2024-10-14] MEDS: Allopurinol 100 MG Tablet PO (08:21)
[2024-10-14 10:20] VITALS: BP 93/62; PULSE 56; RESP 15; TEMP 36.8; O2SAT 100
[2024-10-14] MEDS: 0.9% Normal Saline (1000mL) 1,000 ML 75 ML IV (11:49)
--- NOTE | 2024-10-14 12:40 | DCINST_ITS ---
Discharge Instructions Diet Discharge Diet: Light diet - advance as tolerated DC O2, CPAP, BIPAP needs Home O2 Discharge instructions: No Dressing / Incision Discharge Activity: Return to Normal Activity Dressing / Incision Call your doctor if you observe: Fever of 101 or Higher, Shortness of breath, Dizziness, Fainting spells, Swelling in the ankles, Chest pain and Increased palpitations (irregular heartbeat) Follow Up Care Test Results: Test results from this visit will be discussed in further detail at your follow- up appointment, if applicable. Discharge Plan Admission Admit Date/Time: 10/13/24 20:01 Attending Provider: Prudencio Prince Primary Care Provider: Carlos Chris Chi Consulting Providers: Vicenta Hernandez Instructions Patient Instructions: Ileus, ED Vomit Diarrhea Nonspec Adult Discharge Orders/Prescriptions Prescriptions: Continued rosuvastatin [Crestor] 40 mg tablet 40 mg PO DAILY Qty: 30 0RF alprazolam [Xanax] 0.5 mg tablet 0.5 mg PO QHS PRN (Reason: Anxiety) levothyroxine 150 mcg capsule 137 mcg PO QDAY vitamin E (dl, acetate) 180 mg (400 unit) capsule 180 mg PO QDAY allopurinol 100 mg Tablet 100 mg PO DAILY B12 5,000-100 mcg Lozenge 1 sona SUBLINGUAL DAILY Flintstones Complete Tablet,Chewable 2 tab PO DAILY calcium citrate malate-vit D3 1 ea PO/SL DAILY vilazodone 10 mg tablet 20 mg PO QHS estradiol 0.075 mg/24 hr patch weekly 1 patch transdermal TH albuterol sulfate 90 mcg/actuation HFA aerosol inhaler 2 puff inhalation Q4H PRN (Reason: shortness of breath or wheezing) Qty: 1 6RF Rx Instructions: administer with spacer Rezdiffra 80 mg tablet 80 mg PO QDAY Qty: 30 11RF Referrals / Follow Up: Carlos Chris Chi, MD [Primary Care Provider] - Within 1 Week Disposition Disposition (needs filled in before D/C Order can be placed): Home, Self Care
--- NOTE | 2024-10-14 12:50 | DS.PCM_ITS ---
Providers Date of Admission: 10/13/24 Primary Care Physician: Dr. Carlos Chris MD Reason For Visit: ILEUS NAUSEA VOMITING DIARRHEA Diagnosis Discharge Diagnosis (1) Ileus, unspecified: Status: Acute Code(s): K56.7 - Ileus, unspecified (2) Abdominal pain: Status: Acute Code(s): R10.9 - Unspecified abdominal pain (3) Diarrhea: Status: Acute Code(s): R19.7 - Diarrhea, unspecified (4) Nausea & vomiting: Status: Acute Code(s): R11.2 - Nausea with vomiting, unspecified (5) Elevated lipase: Status: Acute Code(s): R74.8 - Abnormal levels of other serum enzymes Medications at Discharge Home Medications rosuvastatin 40 mg tablet (Crestor) 40 mg PO DAILY #30 tabs 08/07/20 alprazolam 0.5 mg tablet (Xanax) 0.5 mg PO QHS PRN Anxiety 04/06/21 allopurinol 100 mg tablet 100 mg PO DAILY 03/10/23 calcium citrate malate-vit D3 1 ea PO/SL DAILY 03/10/23 cyanocobalamin (B12)-cobamamide 5,000 mcg-100 mcg sublingual lozenge (B12) 1 sona sublingual DAILY 03/10/23 pediatric multivitamin no.76 (Flintstones Complete chewable tablet) 2 tab PO DAILY 03/10/23 albuterol sulfate 90 mcg/actuation aerosol inhaler 2 puff inhalation Q4H PRN shortness of breath or wheezing #1 device 03/29/23 estradiol 0.075 mg/24 hr weekly transdermal patch 1 patch transdermal TH 07/22/23 vilazodone 10 mg tablet 20 mg PO QHS 07/22/23 levothyroxine 150 mcg capsule 137 mcg PO QDAY 08/22/24 vitamin E (dl, acetate) 180 mg (400 unit) capsule 180 mg PO QDAY 08/22/24 resmetirom 80 mg tablet (Rezdiffra) 80 mg PO QDAY #30 tabs 09/24/24 Hospital Course Operations None Procedures None Summary of Care Provided Minutes Spent on Discharge: 35 Hospital Course: Per HPI: ROMAIN WESLEY, is a 49 F who presented to the emergency department at [facility] on 10/13/2024 with a chief complaint of abdominal pain, nausea, vomiting, diarrhea. Patient stated about 2 to 3 days ago she started with abdominal pain that was nonspecific but predominantly in her lower abdomen area. She stated today it was worse and she was in the position and she had some nausea with emesis x 1 and after her emesis had a very of significant long bowel movement that was watery. She does have a history of C. difficile. Denies any recent antibiotics and is unable to tell me if this is consistent with her previous C. difficile infection. She has a history of gastric bypass so she states her stools are now normal at baseline anyway. She has had no fever or chills. She denies any urinary symptoms at all. She has had no sick contacts of which she is aware. Vital signs on presentation showed temperature 98, heart rate 81, blood pressure 112/86, respiratory 16 and oxygen saturation 100% on room air. CBC is unremarkable other than a mild left shift with a neutrophilia at 76.6%. Chemistry panel showed normal electrolytes with relatively normal baseline renal function, glucose was 101 and liver functions were normal. She does have a mildly elevated lipase but is not consistent at 3 times the upper limit of normal for pancreatitis with her lipase being only 118. Urine test is negative. Her UA shows mild dehydration with a specific gravity of 0.02 is positive for nitrites and mild leuk esterase however she has no white cells. There is 3+ bacteria but she has no symptoms. CT then pelvis showed a mild nonspecific colonic ileus continue with fluid and fecal material, no evidence of small bowel obstruction or any other acute abnormality, she has noted to be status post gastrojejunostomy and hysterectomy, left nephrolithiasis without evidence of renal obstruction or ureteral calculus is noted. She was treated with antiemetics, pain medication and IV fluids emergency department and case was discussed with Dr. An. He did indicates she has history of bowel obstructions and recommended observation status to ensure she improves clinically. Hospital Course: 1. Gastroenteritis with ileus?49-year-old female with a history of a gastric bypass surgery presented to the hospital with increasing nausea vomiting as well as diarrhea and abdominal pain. CT scan demonstrated possible colonic ileus and with her nausea, vomiting, and episode of diarrhea it is consistent with gastroenteritis as well. Unfortunately she is not having any further bowel movements so C. difficile is unlikely. Given the community spread of norovirus this is likely a viral entity. She denies any further nausea or vomiting today and was able to tolerate a full liquid diet. She has had no further diarrhea. She is passing flatus but no bowel movement so far today. I discussed with her the possibility of discharge and she expressed understanding of the risk and benefits of going home and would like to go home today. We did discuss reasons to present back to the hospital if necessary and I expressed the need to follow- up with her PCP in 3 to 5 days. 2. Hypothyroidism, hyperlipidemia, gout, anxiety, depression all chronic medical conditions which complicate her care. Physical Exam Narrative General: Alert, Oriented x3, Cooperative, No apparent distress HEENT: Atraumatic, PERRLA, EOMI, Normocephalic Oral: Moist Mucosa Neck: Supple, No JVD Lungs: Clear to auscultation, Normal air movement, No rhonchi, No wheeze, No rales Cardiovascular: Regular rate, Regular Rhythm, Normal S1, Normal S2, No murmurs Abdomen: Soft, Non Tender, Non-Distended, No Hepato-splenomegaly Extremities: No edema, Capillary Refill Less than 3 Seconds Skin: No rashes, No breakdown Musculoskeletal: No Tenderness to Palpation of Joints or Extremities Neurological: No focal neurological deficits, Motor Exam 5/5 strength throughout, Sensory exam intact to light touch and pain Psych/Mental Status: Normal Affect, Appropriate Weight / BMI Weight Weight: 128 lb 1.417 oz Body Mass Index (BMI) 25.0 ABG / Lab / Microbiology Data 10/14/24 04:25 10/14/24 04:25 Laboratory: Laboratory Results - last 24 hr 10/13/24 17:47: WBC 9.8, RBC 4.44, Hgb 13.1, Hct 40.5, MCV 91.2, MCH 29.5, MCHC 32.3, RDW Std Deviation 41.5, RDW Coeff of Dianna 12.5, Plt Count 286, MPV 10.4, Immature Gran % (Auto) 0.300, Neut % (Auto) 76.6 H, Lymph % (Auto) 18.8 L, [facility] % (Auto) 3.6, Eos % (Auto) 0.2, Baso % (Auto) 0.5, Absolute Neuts (auto) 7.5, Absolute Lymphs (auto) 1.84, Nucleated RBC % 0, Sodium 139, Potassium 4.9, C hloride 110 H, Carbon Dioxide 26.0, Anion Gap 3 L, BUN 13, Creatinine 1.02, Estim Creat Clear Calc 58.23, Est GFR (MDRD) Af Amer 75, Est GFR (MDRD) Non-Af 62, BUN/Creatinine Ratio 12.7, Glucose 101, Calcium 8.7, Total Bilirubin 0.80, AST 26, ALT 30, Alkaline Phosphatase 87, Total Protein 7.8, Albumin 3.7, Globulin 4.1, Albumin/Globulin Ratio 0.9, Lipase 118 H, Serum , Qual NEGATIVE 10/13/24 19:00: Urine Color Yellow, Urine Clarity Clear, Urine pH 6.0, Ur Specific [place] 1.020, Urine Protein 15 H, Urine Glucose (UA) Normal, Urine Ketones Negative, Urine Occult Blood Negative, Urine Nitrite Positive H, Urine Bilirubin Negative, Urine Urobilinogen Normal, Ur Leukocyte Esterase 25 H, Urine RBC 0 SEEN, Urine WBC 0-5 SEEN, Ur Squamous Epith Cells 0-5 SEEN, Urine Bacteria 3+, Urine Mucus 1+ 10/14/24 04:25: WBC 8.1, RBC 3.66 L, Hgb 10.9 L, Hct 33.6 L, MCV 91.8, MCH 29.8, MCHC 32.4, RDW Std Deviation 42.2, RDW Coeff of Dianna 12.6, Plt Count 237, MPV 10.6, Immature Gran % (Auto) 0.100, Neut % (Auto) 43.4 L, Lymph % (Auto) 48.2 H, [facility] % (Auto) 6.6, Eos % (Auto) 1.1, Baso % (Auto) 0.6, Absolute Neuts (auto) 3.5, Absolute Lymphs (auto) 3.90, Nucleated RBC % 0, Sodium 140, Potassium 4.3, Chloride 110 H, Carbon Dioxide 27.0, Anion Gap 3 L, BUN 12, Creatinine 0.82, Estim Creat Clear Calc 67.67, Est GFR (MDRD) Af Amer 96, Est GFR (MDRD) Non-Af 80, BUN/Creatinine Ratio 14.7, Glucose 76, Calcium 8.2 L, Phosphorus 3.6, Magnesium 2.0, Total Bilirubin 1.00, AST 19, ALT 22, Alkaline Phosphatase 64, T otal Protein 6.0 L, Albumin 2.8 L, Globulin 3.2, Albumin/Globulin Ratio 0.9, TSH 0.093 L Microbiology: Microbiology 10/13/24 19:00 Urine, Clean Catch Urine Culture - 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 Left nephrolithiasis without evidence for renal obstruction or ureteral calculus Electronically Signed: Steven Marroquin MD at 19:31 EST Reading Location ID and State: [address] [place] [address] Tel , Service support , D/C Instructions Discharge Diet: Light diet - advance as tolerated Call your doctor if you observe: Fever of 101 or Higher, Shortness of breath, Dizziness, Fainting spells, Swelling in the ankles, Chest pain and Increased palpitations (irregular heartbeat) DC O2, CPAP, BIPAP Needs Home O2 Discharge instructions: No Meaningful Use Info Meaningful Use Meaningful Use Diagnoses (Choose all that apply): None applicable Ischemic Stroke Statin Dosing Therapy Reference: STATIN DOSE THERAPY REFERENCE: * Patients > 75 years receive moderate or high dose statin therapy. * Patients 75 years or YOUNGER should receive HIGH intensity statin dose unless contraindicated. You will be required to document reason for non-treatment if statin daily dose does not meet guidelines. HIGH DOSE STATIN THERAPY DAILY Atorvastatin > than or = to 40 mg Rosuvastatin > than or = to 20 mg Amlodipine + Atorvastatin > than or = to 2.5/40 mg Ezetimibe + Simvastatin 10/80 mg Simvastatin 80mg Discharge Plan Admission Admit Date/Time: 10/13/24 20:01 Attending Provider: Prudencio Prince Primary Care Provider: Carlos Chris Chi Consulting Providers: Vicenta Hernandez Instructions Patient Instructions: Ileus, ED Vomit Diarrhea Nonspec Adult Discharge Orders/Prescriptions Prescriptions: Continued rosuvastatin [Crestor] 40 mg tablet 40 mg PO DAILY Qty: 30 0RF alprazolam [Xanax] 0.5 mg tablet 0.5 mg PO QHS PRN (Reason: Anxiety) levothyroxine 150 mcg capsule 137 mcg PO QDAY vitamin E (dl, acetate) 180 mg (400 unit) capsule 180 mg PO QDAY allopurinol 100 mg Tablet 100 mg PO DAILY B12 5,000-100 mcg Lozenge 1 sona SUBLINGUAL DAILY Flintstones Complete Tablet,Chewable 2 tab PO DAILY calcium citrate malate-vit D3 1 ea PO/SL DAILY vilazodone 10 mg tablet 20 mg PO QHS estradiol 0.075 mg/24 hr patch weekly 1 patch transdermal TH albuterol sulfate 90 mcg/actuation HFA aerosol inhaler 2 puff inhalation Q4H PRN (Reason: shortness of breath or wheezing) Qty: 1 6RF Rx Instructions: administer with spacer Rezdiffra 80 mg tablet 80 mg PO QDAY Qty: 30 11RF Referrals / Follow Up: Carlos Chris Chi, MD [Primary Care Provider] - Within 1 Week Disposition Disposition (needs filled in before D/C Order can be placed): Home, Self Care Charges/Coding Visit Charges Inpatient E&M: 50870 Disch Hosp >30min
[2024-10-14 13:39] VITALS: BP 100/73; PULSE 58; RESP 17; TEMP 36.8; O2SAT 100
== END 2024-10-14 12:45 | disposition home or self-care (01) ==
LOC: ED 18:09 → PCU 21:29
PROVIDERS: Admitting Provider Internal Medicine; Emergency Provider Emergency Medicine; PCP Family Medicine Geriatric Medicine; Referring Provider Internal Medicine; Visit Provider Family Medicine
DX: K56.7 Ileus, unspecified (principal); N18.30 Chronic kidney disease, stage 3 unspecified; I25.10 Atherosclerotic heart disease of native coronary artery without angina pectoris; R19.7 Diarrhea, unspecified; E03.9 Hypothyroidism, unspecified; F41.9 Anxiety disorder, unspecified; E86.0 Dehydration; M10.9 Gout, unspecified; R10.13 Epigastric pain; R11.2 Nausea with vomiting, unspecified; I12.9 Hypertensive chronic kidney disease with stage 1 through stage 4 chronic kidney disease, or unspecified chronic kidney disease; E78.00 Pure hypercholesterolemia, unspecified; Z79.899 Other long term (current) drug therapy; Z79.890 Hormone replacement therapy; F32.A Depression, unspecified; Z98.84 Bariatric surgery status; J45.909 Unspecified asthma, uncomplicated; K76.0 Fatty (change of) liver, not elsewhere classified; R74.8 Abnormal levels of other serum enzymes
CPT/HCPCS: 36415; 74177; 80053; 81001; 83690; 83735; 84100; 84443; 84703; 85025; 87077; 87086; 87088; 87186; 96361; 96374; 96375; 96376; 97802; 99221; 99284; Q9967; A4216; G0378; J2405

== ENCOUNTER 2024-10-19 11:20 | Day surgery (SDC) | payer MEDICAID, SELFPAY ==
--- NOTE | 2024-10-15 12:10 | PAT.ANESEVAL ---
Pre-Assessment Diagnosis/Proposed Procedure Planned Operative Procedure(s): ARTHRODESIS OF THE RIGHT SECOND PROXIMAL INTERPHALANGEAL Anesthesia History Anesthesia History - contact center consultant: Anesthesia History - contact center consultant Hx Hospitalization No 10/15/24 09:16 Any Problems With Anesthesia No 10/15/24 09:16 Cholinesterase deficiency No 10/15/24 09:16 You/Your Family Experience No 10/15/24 09:16 fever (hyperthermia) with Relationship Recent Exposure to Contagious No 06/03/24 08:27 Disease Does patient have nerve No 10/15/24 09:16 stimulator Patient instructed to have device shut off --Does patient have Pacemaker or ICD? When Was Last Pacemaker Check QUESTION #4 FULL TEXT: You/Your Family Experience fever (hyperthermia) with Anesthesia Last Oral Intake Last Oral intake: Last Oral Intake NPO since Meds taken in AM with sips of water? Meds patient instructed to take am of surgery PONV PONV - contact center consultant: PONV - contact center consultant Female Yes 10/15/24 09:16 HX of Motion Sickness No 10/15/24 09:16 HX of N/V After Surgery No 10/15/24 09:16 Non-Smoker Yes 10/15/24 09:16 Duration of Surgery greater Yes 10/15/24 09:16 than 60 minutes Number of Risk Factors 3 10/15/24 09:16 PONV Score Moderate Risk 10/15/24 09:16 Height & Weight Height & Weight: Anesthesia: Height & Weight Height 5 ft 1 in 09/12/24 08:11 Respiratory Assessment Respiratory Assessment - contact center consultant: Respiratory Tract Infection Hx - contact center consultant Hx Respiratory Tract Infection No 10/15/24 09:16 STOP Sleep Apnea STOP Sleep Apnea - contact center consultant: STOP Sleep Apnea - contact center consultant Hx Hypertension Yes: NO MED FOR 2 YRS 10/15/24 09:16 Hx Sleep Apnea Yes 10/15/24 09:16 CPAP Yes: NO LONGER NEEDED SINCE 10/15/24 09:16 WEIGHT LOSS BIPAP No 10/15/24 09:16 Do you snore loudly (louder than talking or can be heard Do you often feel tired/ fatigued/ sleepy during daytime? Has anyone observed you stop breathing during sleep? STOP Results Positive 10/15/24 09:16 QUESTION #5 FULL TEXT : Do you snore loudly (louder than talking or can be heard through closed doors)? 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 Specify any problems Hx of Preganancy in last 3 No 10/15/24 09:16 Months Nurse Filling Out Transfusion DSCHRIBER 10/15/24 09:16 & Questions: Date: 10/15/24 10/15/24 09:16 Time: 09:18 10/15/24 09:16 Patient unable to answer at this time (ie. confused, unrespo /Reproduction History /Reproductive History - contact center consultant: /Reproductive Hx- contact center consultant Hx Now No 10/15/24 09:16 Gestational Age (in weeks): EDC: Hx Hx Para Hx Section SAB No 10/15/24 09:16 PFSH Medical History (Updated 10/15/24 @ 09:22 by Ksenia Saldana) History of Clostridium difficile infection Hypoglycemia Gout Seizures Ureterolithiasis Bipolar disorder Thyroid disease High cholesterol Dietary restriction Sleep apnea Wears dentures History of renal disease Fatty liver Gastric reflux Non-smoker History of echocardiogram History of stress test Cardiology follow-up encounter Hypertension 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 Right foot pain Right knee pain Knee pain Stage 3 chronic kidney disease Vitamin D deficiency Postablative hypothyroidism Clostridium difficile infection Wears glasses Pain aggravated by walking Chest pain Obesity Coronary artery calcification Paresthesia Anxiety DDD (degenerative disc disease), thoracic Segmental and somatic dysfunction of thoracic region Osteoarthritis Asthma Depression Hypothyroidism Essential (primary) hypertension Hyperlipidemia Home Medications ?Medication ?Instructions ?Recorded ?Last Taken ?Type rosuvastatin 40 mg tablet (Crestor) 40 mg PO DAILY #30 tabs 08/07/20 Unknown Rx alprazolam 0.5 mg tablet (Xanax) 0.5 mg PO QHS PRN Anxiety 04/06/21 Unknown History allopurinol 100 mg tablet 100 mg PO DAILY 03/10/23 Unknown History calcium citrate malate-vit D3 1 ea PO/SL DAILY 03/10/23 Unknown History cyanocobalamin (B12)-cobamamide 1 sona sublingual DAILY 03/10/23 Unknown History 5,000 mcg-100 mcg sublingual lozenge (B12) pediatric multivitamin no.76 2 tab PO DAILY 03/10/23 Unknown History (Flintstones Complete chewable tablet) albuterol sulfate 90 mcg/actuation 2 puff inhalation Q4H PRN 03/29/23 Unknown Rx aerosol inhaler shortness of breath or wheezing #1 device estradiol 0.075 mg/24 hr weekly 1 patch transdermal TH 07/22/23 Unknown History transdermal patch vilazodone 10 mg tablet 20 mg PO QHS 07/22/23 Unknown History vitamin E (dl, acetate) 180 mg 180 mg PO QDAY 08/22/24 Unknown History (400 unit) capsule resmetirom 80 mg tablet (Rezdiffra) 80 mg PO QDAY HAIRSTON #30 tabs 09/24/24 Unknown Rx levothyroxine 137 mcg tablet 137 mcg PO DAILY 10/15/24 Unknown History Allergy/AdvReac Type Severity Reaction Status Date / Time citalopram Allergy unknown Verified 10/15/24 09:13 codeine Allergy Unknown Verified 10/15/24 09:13 lithium Allergy Unknown Verified 10/15/24 09:13 Family History Mother Diabetes Breast cancer Anemia Depression Hypertension Father Diabetes Heart disease Hypertension CVA (cerebral vascular accident) in his 40'2 from CVA Hyperlipemia Brother Asthma Hypertension CAD (coronary artery disease), Onset Age: 50 coronary stents Sister Depression Seizures Grandmother Diabetes Thyroid disorder Heart disease Grandfather Diabetes Thyroid disorder Heart disease Aunt Heart disease CAD (coronary artery disease) stents Uncle Heart disease CAD (coronary artery disease) stents Other Arthritis Surgical History (Updated 10/15/24 @ 09:22 by Ksenia Saldana) History of cystoscopy History of foot surgery Hx of bilateral salpingo-oophorectomy Bariatric surgery status Hx of colonoscopy Hx of right knee surgery Hx of appendectomy H/O tooth extraction History of appendectomy History of section, classical History of hysterectomy History of eyelid surgery Social History Smoking Status: Never smoker second hand exposure: No alcohol intake: never substance use type: does not use caffeine: Yes frequency: does not exercise Audit: Pertinent Findings Pertinent Findings EKG Perinent findings: 09/28/2024 normal sinus rhythm normal Stress test pertinent findings: 04/02/2024 normal perfusion stress test EF 66% Consult pertinent findings: Cardiology 03/12/2024 chest pain chronic obtain stress test to evaluate 2 essential hypertension chronic 3 hyperlipidemia Recommendation Anesthesia Recommendation Anesthesia recommendation: OPTIMIZED for anesthesia
[2024-10-19] VITALS (10 sets, daily range): BP systolic 100–109; BP diastolic 62–74; PULSE 56–80; RESP 16; TEMP 36.4–36.8; O2SAT 99–100; BMI 26.2
--- NOTE | 2024-10-19 12:47 | PRE.ANES_ITS ---
ASA Classification* ASA Classification ASA Classification: 2 Assessment & Plan Anesthesia* Anesthesia Assessment Anesthesia Assessment: Discussed sedation and/or anesthesia options, risks, benefits, and alternatives with patient/parents/legal guardian/POA. Questions invited. The patient/parents/legal guardian/POA seems to understand and agrees to proceed with anesthesia plan. Reviewed the physical assessment, medical history, allergy history and patient home medications list prior to surgery/procedure/anesthetic and documented any changes. Performed airway and anesthesia risk assessments. Anesthesia Type Anesthesia Type: MAC History Source History Obtained from:: Patient and Chart Anesthesia Focused Assessment* Temperature: 97.7 F Pulse Rate: 80 Blood Pressure: 109/74 Respiratory Rate: 16 Pulse Ox: 99 Oxygen Delivery Method: Room Air Airway Assessment Mouth opens: >3 cm Mallampati Score: II Teeth Condition: Dentures (Patient has a full upper plate.) and Missing (Patient is missing couple molars on the lower jaw.) Neck Range of motion (ROM): Full ROM Focused Labs Anesthesia Preop lab: CBC WBC 8.1 K/mm3 (4.4-11.0) 10/14/24 04:25 RBC 3.66 M/mm3 (4.2-5.4) L 10/14/24 04:25 Hgb 10.9 g/dL (12.0-15.0) L 10/14/24 04:25 Hct 33.6 % (37-47) L 10/14/24 04:25 Plt Count 237 K/mm3 (150-450) 10/14/24 04:25 CHEMISTRY Potassium 4.3 mmol/L (3.5-5.1) 10/14/24 04:25 Sodium 140 mmol/L (136-145) 10/14/24 04:25 Magnesium 2.0 mg/dL (1.6-2.6) 10/14/24 04:25 Phosphorus 3.6 mg/dL (2.5-4.9) 10/14/24 04:25 BUN 12 mg/dL (7-18) 10/14/24 04:25 Creatinine 0.82 mg/dL (0.55-1.02) 10/14/24 04:25 Glucose 76 mg/dL (74-106) 10/14/24 04:25 TSH 0.093 uIU/mL (0.358-3.740) L 10/14/24 04:25 COAG PT 14.0 SECONDS (11.7-14.9) 09/11/24 10:09 Pre-Assessment Diagnosis/Proposed Procedure Planned Operative Procedure(s): ARTHRODESIS OF THE RIGHT SECOND PROXIMAL INTERPHALANGEAL Anesthesia History Anesthesia History - access consultant: Anesthesia History - access consultant Hx Hospitalization No 10/15/24 09:16 Any Problems With Anesthesia No 10/15/24 09:16 Cholinesterase deficiency No 10/15/24 09:16 You/Your Family Experience No 10/15/24 09:16 fever (hyperthermia) with Relationship Recent Exposure to Contagious No 10/19/24 11:52 Disease Does patient have nerve No 10/15/24 09:16 stimulator Patient instructed to have device shut off --Does patient have Pacemaker No 10/19/24 11:52 or ICD? When Was Last Pacemaker Check QUESTION #4 FULL TEXT: You/Your Family Experience fever (hyperthermia) with Anesthesia Last Oral Intake Last Oral intake: Last Oral Intake NPO since 18:30 10/19/24 11:52 Meds taken in AM with sips of No 10/19/24 11:52 water? Meds patient instructed to take am of surgery PONV PONV - access consultant: PONV - access consultant Female Yes 10/15/24 09:16 HX of Motion Sickness No 10/15/24 09:16 HX of N/V After Surgery No 10/15/24 09:16 Non-Smoker Yes 10/15/24 09:16 Duration of Surgery greater Yes 10/15/24 09:16 than 60 minutes Number of Risk Factors 3 10/15/24 09:16 PONV Score Moderate Risk 10/15/24 09:16 Height & Weight Height & Weight: Anesthesia: Height & Weight Height 5 ft 10/19/24 11:52 Weight: 61 kg 10/19/24 11:52 Body Mass Index (BMI) 26.2 10/19/24 11:52 Respiratory Assessment Respiratory Assessment - access consultant: Respiratory Tract Infection Hx - access consultant Hx Respiratory Tract Infection No 10/15/24 09:16 STOP Sleep Apnea STOP Sleep Apnea - access consultant: STOP Sleep Apnea - access consultant Hx Hypertension Yes: NO MED FOR 2 YRS 10/15/24 09:16 Hx Sleep Apnea Yes 10/15/24 09:16 CPAP Yes: NO LONGER NEEDED SINCE 10/15/24 09:16 WEIGHT LOSS BIPAP No 10/15/24 09:16 Do you snore loudly (louder than talking or can be heard Do you often feel tired/ fatigued/ sleepy during daytime? Has anyone observed you stop breathing during sleep? STOP Results Positive 10/15/24 09:16 QUESTION #5 FULL TEXT : Do you snore loudly (louder than talking or can be heard through closed doors)? Tobacco Use History Tobacco Use History - access consultant: Tobacco Use History - access consultant Tobacco Use Non-smoker 06/03/24 08:27 Smoking Status Never smoker 10/15/24 09:16 Hx Tobacco Use No 10/15/24 09:16 Years Smoking Packs Smoked per Day Smoking Cessation Date was within the last 15 years Hx Smoking Cessation Date Hx Smoking Cessation Counseling Hematologic Medial History Hematologic Hx - access consultant: Hematologic Medical Hx - director health Hx of Blood Transfusion No 10/15/24 09:16 Hx of Transfusion in last 3 No 10/15/24 09:16 Months Date of Last Transfusion (if within last 3 months) Ever experience any problems No 10/15/24 09:16 with transfusion(s)? Specify any problems Hx of Preganancy in last 3 No 10/15/24 09:16 Months Nurse Filling Out Transfusion DSCHRIBER 10/15/24 09:16 & Questions: Date: 10/15/24 10/15/24 09:16 Time: 09:18 10/15/24 09:16 Patient unable to answer at this time (ie. confused, unrespo /Reproduction History /Reproductive History - access consultant: /Reproductive Hx- access consultant Hx Now No 10/15/24 09:16 Gestational Age (in weeks): EDC: Hx Hx Para Hx Section SAB No 10/15/24 09:16 Active Medications Active Medications: Current Medications Generic Name Dose Route Start Last Admin Trade Name Freq PRN Reason Stop Dose Admin Cefazolin Sodium 2 gm/ N/A 20 mls @ 400 mls/hr 10/19/24 13:45 IV 10/19/24 13:47 PREOP [facility] Medical History History of Clostridium difficile infection Hypoglycemia Gout Seizures Ureterolithiasis Bipolar disorder Thyroid disease High cholesterol Dietary restriction Sleep apnea Wears dentures History of renal disease Fatty liver Gastric reflux Non-smoker History of echocardiogram History of stress test Cardiology follow-up encounter Hypertension 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 Right foot pain Right knee pain Knee pain Stage 3 chronic kidney disease Vitamin D deficiency Postablative hypothyroidism Clostridium difficile infection Wears glasses Pain aggravated by walking Chest pain Obesity Coronary artery calcification Paresthesia Anxiety DDD (degenerative disc disease), thoracic Segmental and somatic dysfunction of thoracic region Osteoarthritis Asthma Depression Hypothyroidism Essential (primary) hypertension Hyperlipidemia Home Medications ?Medication ?Instructions ?Recorded ?Last Taken ?Type rosuvastatin 40 mg tablet (Crestor) 40 mg PO DAILY #30 tabs 08/07/20 10/18/24 Rx alprazolam 0.5 mg tablet (Xanax) 0.5 mg PO QHS PRN Anxiety 04/06/21 Unknown History allopurinol 100 mg tablet 100 mg PO DAILY 03/10/23 10/18/24 History calcium citrate malate-vit D3 1 ea PO/SL DAILY 03/10/23 10/18/24 History cyanocobalamin (B12)-cobamamide 1 sona sublingual DAILY 03/10/23 10/18/24 History 5,000 mcg-100 mcg sublingual lozenge (B12) pediatric multivitamin no.76 2 tab PO DAILY 03/10/23 10/18/24 History (Flintstones Complete chewable tablet) albuterol sulfate 90 mcg/actuation 2 puff inhalation Q4H PRN 03/29/23 Unknown Rx aerosol inhaler shortness of breath or wheezing #1 device estradiol 0.075 mg/24 hr weekly 1 patch transdermal TH 07/22/23 10/19/24 History transdermal patch vilazodone 10 mg tablet 20 mg PO QHS 07/22/23 10/18/24 History vitamin E (dl, acetate) 180 mg 180 mg PO QDAY 08/22/24 10/18/24 History (400 unit) capsule resmetirom 80 mg tablet (Rezdiffra) 80 mg PO QDAY HAIRSTON #30 tabs 09/24/24 10/18/24 Rx levothyroxine 137 mcg tablet 137 mcg PO DAILY 10/15/24 10/18/24 History sucralfate 1 gram tablet (Carafate) 1 g PO TID #21 tabs 10/16/24 10/18/24 Rx Allergy/AdvReac Type Severity Reaction Status Date / Time citalopram Allergy unknown Verified 10/19/24 11:50 codeine Allergy Unknown Verified 10/19/24 11:50 lithium Allergy Unknown Verified 10/19/24 11:50 Family History Mother Diabetes Breast cancer Anemia Depression Hypertension Father Diabetes Heart disease Hypertension CVA (cerebral vascular accident) in his 40'2 from CVA Hyperlipemia Brother Asthma Hypertension CAD (coronary artery disease), Onset Age: 50 coronary stents Sister Depression Seizures Grandmother Diabetes Thyroid disorder Heart disease Grandfather Diabetes Thyroid disorder Heart disease Aunt Heart disease CAD (coronary artery disease) stents Uncle Heart disease CAD (coronary artery disease) stents Other Arthritis Surgical History History of cystoscopy History of foot surgery Hx of bilateral salpingo-oophorectomy Bariatric surgery status Hx of colonoscopy Hx of right knee surgery Hx of appendectomy H/O tooth extraction History of appendectomy History of section, classical History of hysterectomy History of eyelid surgery Social History Smoking Status: Never smoker second hand exposure: No alcohol intake: never substance use type: does not use caffeine: Yes frequency: does not exercise Review of Systems (Anesthesia) ROS Narrative System reviewed and no additional complaints, except as documented.
--- NOTE | 2024-10-19 13:25 | DCINST_ITS ---
Discharge Instructions Diet Discharge Diet: No restrictions DC O2, CPAP, BIPAP needs Home O2 Discharge instructions: No Dressing / Incision Discharge Activity: May Not Drive, May Shower (Please utilize cast bag when showering to keep dressings clean, dry, and intact to the right foot) and Use Crutches (Please utilize knee scooter to remain nonweightbearing to the right lower extremity) Weight Bearing Status: No weight bearing (Please utilize knee scooter to remain nonweightbearing to right lower extremity with the assistance of a CAM boot for protection) Keep extremity elevated above heart level: Right Leg (Elevate right lower extremity at all times rest for postoperative edema control) Dressing / Incision Call your doctor if you observe: Fever of 101 or Higher, Shortness of breath, Chest pain, Calf discomfort and Uncontrolled pain Change Dressing in: do not change dressing Remove Dressing in: leave in place till F/U (Do not change dressing. Physician will change dressing at first postoperative appointment) Cleanse incision/area with: Do not get Incision Wet and Keep Dressing Clean & Dry (Please keep dressings clean, dry, and intact to the right foot and utilize cast when showering to remain compliant) Follow Up Care Please Follow Up With: Joshua Chin DPM When: Patient has first postoperative appointment with me in office early next week Test Results: Test results from this visit will be discussed in further detail at your follow- up appointment, if applicable. Discharge Plan Admission Attending Provider: Joshua Chin Primary Care Provider: Carlos Chris Chi Instructions Print Language: Lithuanian Discharge Orders/Prescriptions Prescriptions: New doxycycline hyclate 100 mg capsule 100 mg PO DAILY Qty: 10 0RF enoxaparin [Lovenox] 40 mg/0.4 mL syringe 40 mg subcut DAILY 20 Days Qty: 8 0RF oxycodone-acetaminophen 5-325 mg tablet 1 tab PO Q8H PRN (Reason: pain) 7 Days Qty: 28 0RF No Action rosuvastatin [Crestor] 40 mg tablet 40 mg PO DAILY Qty: 30 0RF alprazolam [Xanax] 0.5 mg tablet 0.5 mg PO QHS PRN (Reason: Anxiety) vitamin E (dl, acetate) 180 mg (400 unit) capsule 180 mg PO QDAY allopurinol 100 mg Tablet 100 mg PO DAILY B12 5,000-100 mcg Lozenge 1 sona SUBLINGUAL DAILY Flintstones Complete Tablet,Chewable 2 tab PO DAILY calcium citrate malate-vit D3 1 ea PO/SL DAILY vilazodone 10 mg tablet 20 mg PO QHS estradiol 0.075 mg/24 hr patch weekly 1 patch transdermal TH levothyroxine 137 mcg tablet 137 mcg PO DAILY albuterol sulfate 90 mcg/actuation HFA aerosol inhaler 2 puff inhalation Q4H PRN (Reason: shortness of breath or wheezing) Qty: 1 6RF Rx Instructions: administer with spacer Rezdiffra 80 mg tablet 80 mg PO QDAY Qty: 30 11RF sucralfate [Carafate] 1 gram tablet 1 g PO TID Qty: 21 0RF Referrals / Follow Up: Carlos Chris Chi, MD [Primary Care Provider] - Disposition Disposition (needs filled in before D/C Order can be placed): Home, Self Care
--- NOTE | 2024-10-19 13:45 | RAD_ITS ---
STUDY: X-RAY - RIGHT FOREFOOT CLINICAL: Female, 49 years old. ARTHRODESIS RT 2ND PROXIMAL INTERPHALANGEAL JOINT TECHNIQUE: 6 intraoperative fluoroscopic spot films of the right forefoot. COMPARISON: Right foot radiographs dated 04/01/2023. FINDINGS: Intraoperative fluoroscopic spot films were obtained of the right forefoot during second PIP joint arthrodesis. Again seen are metallic plates and screws across the first MTP joint. Normal interphalangeal joint of the great toe. Normal distal phalanx of the great toe. RAD/Foot 2 Views IMPRESSION: Intraoperative fluoroscopic spot films obtained during right forefoot surgery. Electronically Signed: Chaim Hernandez MD at 15:49 EST ,
[2024-10-19] MEDS: Cefazolin 2 GM in Syringe IV (14:10)
[2024-10-19] MEDS: Lidocaine 1% (20 ml mdv) 20 ML Vial (14:20)
[2024-10-19] MEDS: Bupivacaine Mpf 0.5% 30 ML VIAL (14:30)
--- NOTE | 2024-10-19 15:43 | PCM.POST.ANE ---
Anesthesia: Postop Eval I Current Vital Signs Temperature: 97.6 F Pulse Rate: 70 Blood Pressure: 104/63 Respiratory Rate: 16 Pulse Ox: 100 Oxygen Delivery Method: Room Air Assessment Airway patent: Yes Spontaneous unlabored respirations: Yes Mental status: Awake and Calm nausea: No Vomiting: No Anesthesia Complication: No Fluid Hydration Crystalloid volume administer (ml): 10 Total IV fluid infused: 10 Progress Note Anesthesia document: Postop Eval 1 completed: Yes
--- NOTE | 2024-10-19 16:00 | RAD_ITS ---
INDICATION: Postop second digit arthrodesis (PACU) EXAMINATION/TECHNIQUE: X-RAY - RIGHT XR Foot Min 3 Views 3 VIEWS COMPARISON: No relevant prior comparison study available FINDINGS: SOFT TISSUES: Mild soft tissue swelling of the first digit. No radiopaque foreign body. BONES/JOINTS: Plate and screw fixation as well as separate cannulated screw in place across the first metatarsophalangeal joint. Appearance is similar to previous. Appropriate alignment. Remaining joint spaces are maintained. No acute fracture. RAD/Foot min 3 Views IMPRESSION: Plate and screw fixation with separate cannulated screw bridges the first metatarsophalangeal joint with unchanged alignment. Electronically Signed: Lloyd Kauffman MD at 22:19 EST ,
--- NOTE | 2024-10-19 16:46 | PCM.OPRPT ---
Problems Associated Problem List Diagnoses (1) 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: (2) Chronic pain of toe of right foot: Operative Report (Standard) Operative Information Date of Procedure: 10/19/24 Pre-Operative Diagnosis: 1. Painful hammertoe deformity second digit right foot Post-Operative Diagnosis: 1. Painful hammertoe deformity second digit right foot Surgery/Procedure Performed: 1. Correction of hammertoe deformity second digit Right foot via peg-in-hole PIPJ arthrodesis 2. 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 Lam Barbour, DPM PGY-1 Tasks completed by certified first assistant: Altering tissue (Aiding in Flexor Tendon Transfer), Retracting and Other (Suturing) Type of Anesthesia: Local (20 cc one-to-one mixture 1% lidocaine plain and 0.5% Marcaine plain) and MAC RN Documented Start/Stop Times: Operation Date: 10/19/24 13:45 Case Time Into Pre-Op 10/19/24 11:36 Out of Pre-Op 10/19/24 14:01 Anesthesia Start 10/19/24 14:07 Into Room 10/19/24 14:07 Procedure Start 10/19/24 14:34 Procedure End 10/19/24 15:35 Anesthesia End 10/19/24 15:39 Out of Room 10/19/24 15:39 Into Recovery 10/19/24 15:42 Out of Recovery 10/19/24 16:25 Procedure Start Time: 14:34 Procedure Stop Time: 15:35 Select all DRAINS/GRAFTS/IMPLANTS that apply: None Estimated Blood Loss: < 1mL Specimen collected: No Description of surgery: HPI/indication: Patient is a 49-year-old female who continues to follow in office for hammertoe deformity of the second digit of the right foot. Deformity began as fairly flexible however has become semirigid causing pain during ambulation with contracture noted at the proximal interphalangeal joint during weightbearing. Patient states pain in shoe gear secondary to deformity. Patient had tried conservative treatments of hammertoe brace, taping/strapping, custom orthotics, and various supportive shoe gear types and has failed these conservative treatments. Patient would like to progress forward with surgical intervention at this time. On examination she is noted to have pain overlying the proximal interphalangeal joint and slight pain to the second MTPJ. Discussed performing arthrodesis with flexor tendon transfer of the second digit. Patient is in agreement and would like to proceed forward as stated. Patient was set to undergo procedure on 07/27/2024 however this was canceled due to elevated thyroid TSH. She did follow-up with primary care and thyroid was retested with number lower than normal cutoff. Surgical intervention was again delayed until police detention attendant could further evaluate. Endocrinology did clear patient for surgical intervention. PCP cleared patient for surgical intervention. Surgical discussion was had with the patient in which the procedure was discussed in great detail. I discussed the risks and benefits of the procedure with her. Discussed risks include but are not limited to the following: Pain, continued pain, CRPS, deformity, continued deformity, overcorrection, under correction, numbness/neuritis, swelling/edema, scarring, poor cosmetic result, bleeding, blood clot, hardware failure, symptomatic hardware, need for further surgery/procedure, fracture, nonunion, delayed union, nonhealing/delayed healing, dehiscence, infection, allergic reaction, transfer lesions, postoperative arthritis, weakness, shoe gear problems, inability to wear shoes, inability to walk, floating toe, contracted toe, deviated toe, stroke, heart attack, stroke addiction to pain medication, loss of function, loss of limb, loss of life. Patient voiced understanding of these and was able to repeat these back. The alternative options were discussed and reviewed with the patient in great detail including risks and possible benefits of these options. Typical postoperative course was reviewed. Patient expressed understanding and agreement and consent forms were reviewed with the patient and patient signed them freely. No guarantees were given. No promises were made. Patient was cleared to undergo second digit arthrodesis with flexor tendon transfer of the right foot [facility] on 10/19/2024. Procedure: Under mild sedation patient was brought in the operating placed on table in supine position. Following induction of IV anesthetic a pneumatic ankle tourniquet was placed about the patient's right ankle. Right foot was elevated via a blanket bump. The foot was then scrubbed, prepped, and draped in usual aseptic manner. Next, local anesthetic block was performed proximal to the second digit about the midshaft of the second metatarsal consisting of 10 cc one-to-one mixture 1% lidocaine plain and 0.5% Marcaine plain. An Esmarch bandage was utilized to exsanguinate the right foot and the foot was elevated and the pneumatic ankle tourniquet was elevated to 250 mmHg. At this time attention was directed to the right foot with emphasis on the second digit where fluoroscopic imaging was obtained demonstrating contracture/hammertoe deformity of the second digit at the proximal interphalangeal joint. Foot was loaded demonstrating contracture at the proximal interphalangeal joint with reduction at the metatarsal phalangeal joint of the second digit. A linear incision was made overlying the head/neck of the second metatarsal and extended distally to the base of the distal phalanx utilizing a #15 blade. Incision was deepened via sharp and blunt dissection. Care was taken to identify and retract all vital neurovascular structures. Extensor digitorum longus tendon to the second digit was identified and overlying the proximal interphalangeal joint was transected and clamped via hemostat and moved away from the surgical site. Next, the proximal interphalangeal joint was transected with soft tissue attachments freed about the proximal phalanx head and base of the middle phalanx and the head of the proximal phalanx was exposed to the surgical field. Utilizing a power bur head of the proximal phalanx was debrided down to a squared peg while the base of the middle phalanx was fashioned into a square to slot to complete a peg in hole arthrodesis of the proximal interphalangeal joint. Next, the flexor digitorum longus tendon was identified and transected at the base of the middle phalanx and transferred dorsally over the proximal phalanx head and fixated overlying the proximal phalanx utilizing 4-0 Vicryl completing a flexor tendon transfer. Next, the site was flushed with copious amounts of normal sterile saline. At this time the base of the middle phalanx was pushed onto the squared peg of the proximal phalanx head with good fit/fixation completing the peg in hole arthrodesis. The foot was then loaded simulating weightbearing status and the second digit was rectus with contracture reduced at the proximal interphalangeal joint and second metatarsophalangeal joint. The site was again flushed with copious amounts of normal sterile saline. Final fluoroscopic imaging was obtained and reviewed prior to closure. The extensor digitorum longus tendon was repaired utilizing 4-0 Vicryl. The deep tissues were then closed utilizing 4-0 Vicryl. Subcutaneous tissues were closed utilizing 4-0 Monocryl. The skin was then reapproximated utilizing 3-0 Prolene in simple interrupted fashion. At this time the pneumatic ankle tourniquet was deflated and a prompt hyperemic response was noted to the digits of the right foot. A postoperative block was then performed about the midshaft of the second metatarsal consisting of 10 cc one-to-one mixture of 1% lidocaine plain and 0.5% Marcaine plain. Incision site was then dressed with Betadine soaked Adaptic, 4 x 4 fluff, 4 x 4 gauze, Kerlix, and 4 inch Ramon wrap rolled onto the right foot. Patient tolerated the procedure and anesthesia well was transported the PACU vital signs stable vascular status intact to the right foot. Postoperative imaging obtained in PACU and reviewed prior to leaving. Patient was placed into a CAM boot with instructions to remain nonweightbearing to the right lower extremity with the assistance of a knee scooter. Discussed this in addition to other postoperative instructions with patient's family. All aftercare has been outlined in her discharge instructions following thorough discussion with the family. They are understanding of the nonweightbearing status; the need to keep the dressings clean, dry, and intact to the right foot; to elevate right foot at all times of rest for postoperative edema control; and to take all postoperative medication as instructed. Patient has first postoperative appointment with me in office early next week for continued postoperative care. Surgical Findings: Contracture/Hammer toe deformity of 2nd digit Right foot Complications Complications: No Admit VTE Documentation VTE Present on Admission: No VTE Mechan Device Prophylaxis: SCD's VTE Pharm Prophylaxis ordered?: Yes
--- NOTE | 2024-10-19 21:31 | POSTOPAN2_ITS ---
Anesthesia Postop Eval I Sum Postop Eval Completion status Anesthesia document: Postop Eval 1 completed: Yes Anesthesia Postop Eval I Summary Anesthesia Postop Eval I Summary: Anesthesia Postop Eval I: Assessment Summary Airway patent Yes 10/19/24 15:44 GLOBAL MARKETING INTERN.SKOBY Spontaneous unlabored Yes 10/19/24 15:44 GLOBAL MARKETING INTERN.ROBI respirations Mental status Awake,Calm 10/19/24 15:44 GLOBAL MARKETING INTERN.SKOBY nausea No 10/19/24 15:44 GLOBAL MARKETING INTERN.SKOBY Vomiting No 10/19/24 15:44 GLOBAL MARKETING INTERN.MACARIOOBGladys Anesthesia Postop Eval I: Fluid Summary Crystalloid volume administer 10 10/19/24 15:44 GLOBAL MARKETING INTERN.SKOBY (ml) Colloids volume administered ( ml) Blood Product volume administered (ml) Total IV fluid infused 10 10/19/24 15:44 GLOBAL MARKETING INTERN.MACARIOOBGladys Anesthesia Postop Eval I: Summary Notes Anesthesia Complication No 10/19/24 15:44 GLOBAL MARKETING INTERN.MACARIOOBGladys Anesthesia Complication Comment: Post-operative progress note Anesthesia: Postop Eval II Evaluation Mental status: Awake and Calm Pain Level: 1 nausea: No Vomiting: No Complications Anesthesia Complication: No
--- NOTE | 2024-10-19 21:31 | PCM.POSTANE2 ---
Anesthesia Postop Eval I Sum Postop Eval Completion status Anesthesia document: Postop Eval 1 completed: Yes Anesthesia Postop Eval I Summary Anesthesia Postop Eval I Summary: Anesthesia Postop Eval I: Assessment Summary Airway patent Yes 10/19/24 15:44 HUMAN SERVICES ASSISTANT.SKOBY Spontaneous unlabored Yes 10/19/24 15:44 HUMAN SERVICES ASSISTANT.ROBI respirations Mental status Awake,Calm 10/19/24 15:44 HUMAN SERVICES ASSISTANT.SKOBY nausea No 10/19/24 15:44 HUMAN SERVICES ASSISTANT.SKOBY Vomiting No 10/19/24 15:44 HUMAN SERVICES ASSISTANT.MACARIOOBGladys Anesthesia Postop Eval I: Fluid Summary Crystalloid volume administer 10 10/19/24 15:44 HUMAN SERVICES ASSISTANT.SKOBY (ml) Colloids volume administered ( ml) Blood Product volume administered (ml) Total IV fluid infused 10 10/19/24 15:44 HUMAN SERVICES ASSISTANT.MACARIOOBGladys Anesthesia Postop Eval I: Summary Notes Anesthesia Complication No 10/19/24 15:44 HUMAN SERVICES ASSISTANT.MACARIOOBGladys Anesthesia Complication Comment: Post-operative progress note Anesthesia: Postop Eval II Evaluation Mental status: Awake and Calm Pain Level: 1 nausea: No Vomiting: No Complications Anesthesia Complication: No
== END 2024-10-19 17:27 | disposition home or self-care (01) ==
LOC: SDC 11:23 → AC 11:25
PROVIDERS: PCP Family Medicine Geriatric Medicine; Referring Provider Student in an Organized Health Care Education/Training Program; Visit Provider Student in an Organized Health Care Education/Training Program
PROC: (CPT 28292; principal; 2024-10-19 13:30)
DX: M20.41 Other hammer toe(s) (acquired), right foot (principal); G89.29 Other chronic pain; M79.674 Pain in right toe(s); Z90.710 Acquired absence of both cervix and uterus; Z98.84 Bariatric surgery status; E03.9 Hypothyroidism, unspecified; Z86.16 Personal history of COVID-19
CPT/HCPCS: 28285; 27691; 01480; 73620; 73630; 76000; A4216; J2405

== ENCOUNTER → 2024-11-13 | Outpatient (CLI) | payer MEDICAID, SELFPAY | END | disposition home or self-care (01) | LOC: PSN 08:19 | PROVIDERS: PCP Family Medicine Geriatric Medicine; Referring Provider Family Medicine Geriatric Medicine; Visit Provider Family Medicine Geriatric Medicine | DX: R68.83 Chills (without fever) (principal) | CPT/HCPCS: 87631 ==

== ENCOUNTER → 2024-11-20 | Outpatient (CLI) | payer MEDICAID, SELFPAY ==
[2024-11-20 12:40] LABS: Absolute Lymphocyte Count 2.86 X10^3/uL (0.83-4.51); Absolute Neutrophil Count 3.8 X10^3/uL (2.0-7.7); Basophil# 0.05 X10^3/uL; Basophil% 0.7 % (0-1); Eosinophils% 1.4 % (0-5); Hematocrit 39.3 % (37-47); Lymphocyte # 2.86 X10^3/ul (0.83-4.51); Lymphocyte % 39.2 % (19-41); Mean Corp Hgb Conc 33.1 g/dL (32-36); Mean Corpuscular Hgb 29.4 pg (27.0-32.0); Mean Corpuscular Volume 88.9 fL (81-99); Mean Platelet Vol. 10.4 fl (6.2-12.0); Monocyte# 0.42 X10^3/uL; Monocyte% 5.8 % (0-10); NRBC Flagged by Analyzer 0 % (0-5); Neutrophil # 3.84 X10^3/uL (2.7-7.7); Neutrophil % 52.6 % (47-70); Platelet Count 328 K/mm3 (150-450); RBC Distribution Width CV 12.3 % (11.6-14.6); RBC Distribution Width SD 40.2 fl (35.1-43.9); RET-HE 33.8 pg (30-35); Red Blood Count 4.42 M/mm3 (4.2-5.4); Reticulocyte Count 0.61 % (0.5-1.5); White Blood Count 7.3 K/mm3 (4.4-11.0)
[2024-11-20 13:28] LABS: ALB/GLOB Ratio 0.9 RATIO (0.9-2.4); AST(SGOT) 25 U/L (15-37); Alanine Aminotransfer ALT/SGPT 26 U/L (13-56); Albumin, Serum 3.8 g/dL (3.2-5.0); Alkaline Phosphatase 70 U/L (45-117); Anion Gap 6 (5-15); BUN 11 mg/dL (7-18); Calcium,Total 8.9 mg/dL (8.5-10.1); Chloride 105 mmol/L (98-107); Creatinine, Serum 0.92 mg/dL (0.55-1.02); EST Glomerular Filtration Rate 70 mL/min (>60); Est Glom Filt Rate - Afr Amer 85 mL/min (>60); Ferritin 164 ng/mL (8-252); Globulin 4.1 g/dL (2.2-4.2); Glucose 84 mg/dL (74-106); Iron 81 ug/dL (50-170); Iron Binding Capacity,Total 301 ug/dL (250-450); LDH 185 U/L (84-246); Potassium 3.9 mmol/L (3.5-5.1); Protein, Total 7.9 g/dL (6.4-8.2); Sodium Level 138 mmol/L (136-145)
[2024-11-23 16:09] LABS: Albumin 3.6 g/dL (2.9-4.4); Alpha-1-Globulins 0.2 g/dL (0.0-0.4); Alpha-2-Globulins 0.7 g/dL (0.4-1.0); Gamma Globulin 1.7 g/dL (0.4-1.8); Immunoglobulin A 413 mg/dL (87-352); Immunoglobulin G 1518 mg/dL (586-1602); Immunoglobulin M 296 mg/dL (26-217); PROEL- TOTAL PROTEIN 7.1 g/dL (6.0-8.5)
== END | disposition home or self-care (01) ==
LOC: LAB 11:48
PROVIDERS: PCP Family Medicine Geriatric Medicine; Referring Provider Internal Medicine Gastroenterology; Visit Provider Internal Medicine Gastroenterology
DX: M79.674 Pain in right toe(s) (principal); G89.29 Other chronic pain
CPT/HCPCS: 36415; 80053; 82728; 82784; 83540; 83550; 83615; 84165; 85025; 85045; 86334

== ENCOUNTER → 2024-11-22 | Outpatient (CLI) | payer MEDICAID, SELFPAY ==
[2024-11-22 10:30] LABS: Absolute Lymphocyte Count 2.82 X10^3/uL (0.83-4.51); Basophil# 0.05 X10^3/uL; Basophil% 0.8 % (0-1); Eosinophil# 0.09 X10^3/uL; Eosinophils% 1.4 % (0-5); Hematocrit 39.9 % (37-47); Hemoglobin 12.7 g/dL (12.0-15.0); Lymphocyte # 2.82 X10^3/ul (0.83-4.51); Lymphocyte % 43.2 % (19-41); Mean Corp Hgb Conc 31.8 g/dL (32-36); Mean Corpuscular Hgb 28.7 pg (27.0-32.0); Mean Corpuscular Volume 90.1 fL (81-99); Mean Platelet Vol. 10.5 fl (6.2-12.0); Monocyte# 0.56 X10^3/uL; Monocyte% 8.6 % (0-10); NRBC Flagged by Analyzer 0 % (0-5); Neutrophil # 2.99 X10^3/uL (2.7-7.7); Neutrophil % 45.7 % (47-70); Platelet Count 337 K/mm3 (150-450); RBC Distribution Width CV 12.4 % (11.6-14.6); RBC Distribution Width SD 41.3 fl (35.1-43.9); Red Blood Count 4.43 M/mm3 (4.2-5.4); White Blood Count 6.5 K/mm3 (4.4-11.0)
[2024-11-22 10:51] LABS: Microalbumin,Random Urine 10.3 mg/L (NO RANGE EST.)
[2024-11-22 11:06] LABS: ALB/GLOB Ratio 0.9 RATIO (0.9-2.4); AST(SGOT) 28 U/L (15-37); Alanine Aminotransfer ALT/SGPT 24 U/L (13-56); Albumin, Serum 3.6 g/dL (3.2-5.0); Alkaline Phosphatase 69 U/L (45-117); Anion Gap 4 (5-15); BUN 11 mg/dL (7-18); BUN/Creat Ratio 11.9 RATIO (10-20); Chloride 108 mmol/L (98-107); Cholesterol 129 mg/dL (200); Creatinine, Serum 0.93 mg/dL (0.55-1.02); EST Glomerular Filtration Rate 69 mL/min (>60); Est Glom Filt Rate - Afr Amer 83 mL/min (>60); Globulin 3.8 g/dL (2.2-4.2); Glucose 84 mg/dL (74-106); High Density Lipoprotein 55 mg/dL; Potassium 4.4 mmol/L (3.5-5.1); Protein, Total 7.4 g/dL (6.4-8.2); Sodium Level 140 mmol/L (136-145); Thyroid Stim Hormone (TSH) 0.205 uIU/mL (0.358-3.740); Triglycerides 79 mg/dL; Very Low Density Lipoprotein 16 mg/dL (5-40)
[2024-11-22 14:14] LABS: Hemoglobin A1c 5.4 % (3.8-5.6)
== END | disposition home or self-care (01) ==
LOC: LAB 09:42
PROVIDERS: PCP Family Medicine Geriatric Medicine; Referring Provider Family Medicine Geriatric Medicine; Visit Provider Family Medicine Geriatric Medicine
DX: E78.5 Hyperlipidemia, unspecified (principal); E11.65 Type 2 diabetes mellitus with hyperglycemia; I10 Essential (primary) hypertension
CPT/HCPCS: 36415; 80053; 80061; 82043; 82570; 83036; 84443; 85025

== ENCOUNTER → 2024-12-03 | Outpatient (CLI) | payer MEDICAID, SELFPAY ==
--- NOTE | 2024-12-03 08:49 | BI_ITS ---
PROCEDURE: SCRN MAMM (CAD)W/EMANI BILAT REASON FOR EXAM: F, Age 49 y/o, routine annual mammographic follow-up. Mother with breast cancer. TECHNIQUE: Bilateral screening digital breast tomosynthesis with 2D and 3D images. Computer aided detection. COMPARISON: Prior exam(s) dating back to comparison is made with prior study dated December 01, 2023.. FINDINGS: There are scattered areas of fibroglandular density. Stable small benign- appearing bilateral axillary lymph nodes. No suspicious masses, areas of developing architectural distortion, or suspicious calcifications. Stable examination. BI/SCRN MAMM (CAD)W/EMANI BILAT IMPRESSION: BI-RADS 2: BENIGN. RECOMMEND ANNUAL MAMMOGRAPHIC SCREENING. Follow-up code: Routine Follow-up The patient will be notified of the results by letter. Reading Location: [id number]
== END | disposition home or self-care (01) ==
PROVIDERS: PCP Family Medicine Geriatric Medicine; Referring Provider Family Medicine Geriatric Medicine; Visit Provider Family Medicine Geriatric Medicine
DX: Z12.31 Encounter for screening mammogram for malignant neoplasm of breast (principal)
CPT/HCPCS: 77063; 77067

== ENCOUNTER → 2025-01-11 | Outpatient (CLI) | payer MEDICAID, SELFPAY ==
[2025-01-11 11:01] LABS: Color, Urine Yellow (Yellow); Glucose, Dipstick Normal (Normal); Ketone-Dipstick Negative (Negative); Leukocyte Esterase-Dipstick Negative /ul (Negative); Nitrite-Dipstick Negative (Negative); Occult Blood-Urine Negative /ul (Negative); Protein-Dipstick Negative (Negative); Specific Gravity, Urine 1.015 (1.002-1.030); Urine Bilirubin Dipstick Negative (Negative); Urine Clarity Clear (Clear); Urine Urobilinogen Normal (Normal)
[2025-01-11 11:13] LABS: Prothrombin Time (Protime)PT. 13.2 SECONDS (11.7-14.9)
[2025-01-11 11:14] LABS: Partial Thromboplast Time 26.2 Seconds (24.1-36.2)
[2025-01-11 12:39] LABS: Anion Gap 11 (5-15); BUN 14 mg/dL (4-19); BUN/Creat Ratio 13.8 RATIO (10-20); Carbon Dioxide 25.6 mmol/L (21.0-32.0); Chloride 103 mmol/L (98-108); Creatinine, Serum 1.02 mg/dL (0.70-1.20); EST Glomerular Filtration Rate 68 (>60); Glucose 82 mg/dL (70-99); Potassium 4.6 mmol/L (3.3-5.1); Sodium Level 139 mmol/L (133-145)
[2025-01-11 18:22] LABS: Absolute Lymphocyte Count 2.68 X10^3/uL (0.83-4.51); Absolute Neutrophil Count 4.7 X10^3/uL (2.0-7.7); Basophil# 0.07 X10^3/uL; Basophil% 0.9 % (0-1); Eosinophils% 1.2 % (0-5); Hematocrit 40.8 % (37-47); Hemoglobin 13.4 g/dL (12.0-15.0); Lymphocyte # 2.68 X10^3/ul (0.83-4.51); Lymphocyte % 33.1 % (19-41); Mean Corp Hgb Conc 32.8 g/dL (32-36); Mean Corpuscular Hgb 30.6 pg (27.0-32.0); Mean Corpuscular Volume 93.2 fL (81-99); Mean Platelet Vol. 11.3 fl (6.2-12.0); Monocyte# 0.53 X10^3/uL; Monocyte% 6.6 % (0-10); NRBC Flagged by Analyzer 0 % (0-5); Neutrophil # 4.69 X10^3/uL (2.7-7.7); Platelet Count 270 K/mm3 (150-450); RBC Distribution Width CV 13.7 % (11.6-14.6); RBC Distribution Width SD 46.2 fl (35.1-43.9); Red Blood Count 4.38 M/mm3 (4.2-5.4); White Blood Count 8.1 K/mm3 (4.4-11.0)
== END | disposition home or self-care (01) ==
LOC: LAB 10:44
PROVIDERS: PCP Family Medicine Geriatric Medicine; Referring Provider Family Medicine Geriatric Medicine; Visit Provider Family Medicine Geriatric Medicine
DX: T14.8XXA Other injury of unspecified body region, initial encounter (principal); R10.9 Unspecified abdominal pain; N20.0 Calculus of kidney
CPT/HCPCS: 36415; 80048; 81002; 85025; 85610; 85730

== ENCOUNTER → 2025-02-21 | Outpatient (CLI) | payer MEDICAID, SELFPAY ==
--- NOTE | 2025-02-21 15:08 | RAD_ITS ---
PROCEDURE: ABDOMEN SINGLE VIEW 02/21/2025 REASON FOR EXAM: ABDOMINAL PAIN TECHNIQUE: Single supine view abdomen. Two images to include the entire abdomen and pelvis COMPARISON: 09/17/2024 FINDINGS: No gaseous distention of bowel. Moderate amount of colonic stool at the right colon. Postsurgical changes left upper quadrant again noted. Lung bases appear clear. RAD/Abdomen Single View IMPRESSION: Study appears within limits as above. Reading Location: [id number]
[2025-02-21 15:30] LABS: Absolute Lymphocyte Count 3.21 X10^3/uL (0.83-4.51); Absolute Neutrophil Count 3.7 X10^3/uL (2.0-7.7); Basophil# 0.09 X10^3/uL; Basophil% 1.2 % (0-1); Eosinophil# 0.11 X10^3/uL; Eosinophils% 1.5 % (0-5); Hematocrit 41.2 % (37-47); Hemoglobin 13.8 g/dL (12.0-15.0); Lymphocyte # 3.21 X10^3/ul (0.83-4.51); Lymphocyte % 42.6 % (19-41); Mean Corp Hgb Conc 33.5 g/dL (32-36); Mean Corpuscular Hgb 30.9 pg (27.0-32.0); Mean Corpuscular Volume 92.2 fL (81-99); Mean Platelet Vol. 10.6 fl (6.2-12.0); Monocyte# 0.44 X10^3/uL; Monocyte% 5.8 % (0-10); NRBC Flagged by Analyzer 0 % (0-5); Neutrophil # 3.67 X10^3/uL (2.7-7.7); Neutrophil % 48.8 % (47-70); Platelet Count 244 K/mm3 (150-450); RBC Distribution Width SD 47.9 fl (35.1-43.9); Red Blood Count 4.47 M/mm3 (4.2-5.4); White Blood Count 7.5 K/mm3 (4.4-11.0)
[2025-02-21 16:12] LABS: ALB/GLOB Ratio 1.2 RATIO (0.9-2.4); AST(SGOT) 63 U/L (<=31); Alanine Aminotransfer ALT/SGPT 46 U/L (<=34); Albumin, Serum 4.4 g/dL (3.5-5.0); Alkaline Phosphatase 72 U/L (35-104); Anion Gap 11 (5-15); BUN 17 mg/dL (4-19); BUN/Creat Ratio 15.7 RATIO (10-20); Calcium,Total 9.2 mg/dL (7.6-11.0); Chloride 101 mmol/L (98-108); Creatinine, Serum 1.08 mg/dL (0.70-1.20); EST Glomerular Filtration Rate 64 (>60); Globulin 3.6 g/dL (2.2-4.2); Glucose 83 mg/dL (70-99); Potassium 4.7 mmol/L (3.3-5.1); Sodium Level 137 mmol/L (133-145); Total Bilirubin 1.15 mg/dL (0.00-1.30); Vitamin B12 931 pg/mL (180-914)
[2025-02-21 16:47] LABS: International Normalized Ratio 1.1; Prothrombin Time (Protime)PT. 14.4 SECONDS (11.7-14.9)
[2025-02-21 17:13] LABS: Amylase 88 U/L (28-100); CRP < 3.00 mg/L (0.0-3.0); LDH 268 U/L (84-246); Lipase 100 U/L (13-75); Magnesium 2.2 mg/dL (1.5-2.2); Phosphorus 3.5 mg/dL (2.7-4.5)
[2025-02-21 17:37] LABS: Erythrocyte Sedimentation Rate 15 mm/hr (0-30)
[2025-02-26 13:08] LABS: Albumin 3.9 g/dL (2.9-4.4); Alpha-1-Globulins 0.2 g/dL (0.0-0.4); Alpha-2-Globulins 0.6 g/dL (0.4-1.0); Gamma Globulin 1.8 g/dL (0.4-1.8); Immunoglobulin A 439 mg/dL (87-352); Immunoglobulin G 1571 mg/dL (586-1602); Immunoglobulin M 314 mg/dL (26-217); PROEL- TOTAL PROTEIN 7.7 g/dL (6.0-8.5)
== END | disposition home or self-care (01) ==
LOC: RAD 14:43
PROVIDERS: PCP Family Medicine Geriatric Medicine; Referring Provider Internal Medicine Gastroenterology; Visit Provider Internal Medicine Gastroenterology
DX: R74.8 Abnormal levels of other serum enzymes (principal); R19.7 Diarrhea, unspecified
CPT/HCPCS: 36415; 74018; 80053; 82150; 82607; 82784; 83615; 83690; 83735; 84100; 84165; 85025; 85610; 85652; 86140; 86334

== ENCOUNTER → 2025-02-27 | Outpatient (CLI) | payer MEDICAID, SELFPAY ==
--- NOTE | 2025-02-27 09:15 | US_ITS ---
EXAM: US Abdomen Limited, Gallbladder CLINICAL INDICATION: CHOLECYSTITIS TECHNIQUE: Real-time ultrasound of the right upper quadrant with image documentation. COMPARISON: No relevant prior studies available. FINDINGS: LIVER: Liver measures up to 13.4 cm. Fatty infiltration of the liver. GALLBLADDER: Negative Luis's sign was reported by the laboratory engineer. No pericholecystic fluid. COMMON BILE DUCT: Unremarkable as visualized. No stones. No dilation. Common bile duct measures 0.48 cm in diameter. PANCREAS: Unremarkable as visualized. RIGHT KIDNEY: Unremarkable. No stones. No hydronephrosis. Right kidney 8.1 x 5.2 x 4.4 cm. US/Abdomen Limited IMPRESSION: 1. Fatty infiltration of the liver. 2. No convincing evidence of acute cholecystitis. If clinical concern persist , further evaluation with HIDA scan is recommended. Reading Location[facility]
== END | disposition home or self-care (01) ==
LOC: US 09:13
PROVIDERS: PCP Family Medicine Geriatric Medicine; Referring Provider Family Medicine Geriatric Medicine; Visit Provider Surgery
DX: K81.9 Cholecystitis, unspecified (principal)
CPT/HCPCS: 76705

== ENCOUNTER 2025-03-21 06:20 | Day surgery (SDC) | payer MEDICAID, SELFPAY ==
--- NOTE | 2025-03-13 09:59 | PAT.ANESEVAL ---
Pre-Assessment Diagnosis/Proposed Procedure Planned Operative Procedure(s): JOHN MILLER WITH IOC Anesthesia History Anesthesia History - project control manager: Anesthesia History - project control manager Hx Hospitalization No 03/13/25 08:16 Any Problems With Anesthesia No 03/13/25 08:16 Cholinesterase deficiency No 03/13/25 08:16 You/Your Family Experience No 03/13/25 08:16 fever (hyperthermia) with Relationship Recent Exposure to Contagious No 10/19/24 11:52 Disease Does patient have nerve No 03/13/25 08:16 stimulator Patient instructed to have device shut off --Does patient have Pacemaker or ICD? When Was Last Pacemaker Check QUESTION #4 FULL TEXT: You/Your Family Experience fever (hyperthermia) with Anesthesia Last Oral Intake Last Oral intake: Last Oral Intake NPO since Meds taken in AM with sips of water? Meds patient instructed to take am of surgery PONV PONV - project control manager: PONV - project control manager Female Yes 03/13/25 08:16 HX of Motion Sickness No 03/13/25 08:16 HX of N/V After Surgery No 03/13/25 08:16 Non-Smoker Yes 03/13/25 08:16 Duration of Surgery greater No 03/13/25 08:16 than 60 minutes Number of Risk Factors 2 03/13/25 08:16 PONV Score Moderate Risk 03/13/25 08:16 Height & Weight Height & Weight: Anesthesia: Height & Weight Height 5 ft 03/08/25 09:03 Respiratory Assessment Respiratory Assessment - project control manager: Respiratory Tract Infection Hx - project control manager Hx Respiratory Tract Infection No 03/13/25 08:16 STOP Sleep Apnea STOP Sleep Apnea - project control manager: STOP Sleep Apnea - project control manager Hx Hypertension Yes: NO MED FOR 2 YRS 03/13/25 08:16 Hx Sleep Apnea Yes 03/13/25 08:16 CPAP Yes: NO LONGER NEEDED SINCE 03/13/25 08:16 WEIGHT LOSS BIPAP No 03/13/25 08:16 Do you snore loudly (louder than talking or can be heard Do you often feel tired/ fatigued/ sleepy during daytime? Has anyone observed you stop breathing during sleep? STOP Results Positive 03/13/25 08:16 QUESTION #5 FULL TEXT : Do you snore loudly (louder than talking or can be heard through closed doors)? 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 Specify any problems Hx of Preganancy in last 3 No 03/13/25 08:16 Months Nurse Filling Out Transfusion DSCHRIBER 03/13/25 08:16 & Questions: Date: 03/13/25 03/13/25 08:16 Time: 08:17 03/13/25 08:16 Patient unable to answer at this time (ie. confused, unrespo /Reproduction History /Reproductive History - project control manager: /Reproductive Hx- project control manager Hx Now No 03/13/25 08:16 Gestational Age (in weeks): EDC: Hx Hx Para Hx Section SAB No 03/13/25 08:16 PFSH Medical History (Updated 03/13/25 @ 08:22 by Ksenia Saldana) Wears dentures Biliary dyskinesia History of Clostridium difficile infection Hypoglycemia Gout Seizures Ureterolithiasis Bipolar disorder Thyroid disease High cholesterol Dietary restriction Sleep apnea Wears dentures History of renal disease Fatty liver Gastric reflux Non-smoker History of echocardiogram History of stress test Cardiology follow-up encounter Hypertension 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 Right foot pain Right knee pain Knee pain Stage 3 chronic kidney disease Vitamin D deficiency Postablative hypothyroidism Clostridium difficile infection Wears glasses Pain aggravated by walking Chest pain Obesity Coronary artery calcification Paresthesia Anxiety DDD (degenerative disc disease), thoracic Segmental and somatic dysfunction of thoracic region Osteoarthritis Asthma Depression Hypothyroidism Home Medications ?Medication ?Instructions ?Recorded ?Last Taken ?Type rosuvastatin 40 mg tablet (Crestor) 40 mg PO DAILY #30 tabs 08/07/20 10/18/24 Rx alprazolam 0.5 mg tablet (Xanax) 0.5 mg PO QHS PRN Anxiety 04/06/21 Unknown History allopurinol 100 mg tablet 100 mg PO DAILY 03/10/23 10/18/24 History calcium citrate malate-vit D3 1 ea PO/SL DAILY 03/10/23 10/18/24 History cyanocobalamin (B12)-cobamamide 1 sona sublingual DAILY 03/10/23 10/18/24 History 5,000 mcg-100 mcg sublingual lozenge (B12) pediatric multivitamin no.76 2 tab PO DAILY 03/10/23 10/18/24 History (Flintstones Complete chewable tablet) albuterol sulfate 90 mcg/actuation 2 puff inhalation Q4H PRN 03/29/23 Unknown Rx aerosol inhaler shortness of breath or wheezing #1 device estradiol 0.075 mg/24 hr weekly 1 patch transdermal TH 07/22/23 10/19/24 History transdermal patch vilazodone 10 mg tablet 20 mg PO QHS 07/22/23 10/18/24 History vitamin E (dl, acetate) 180 mg 180 mg PO QDAY 08/22/24 10/18/24 History (400 unit) capsule levothyroxine 137 mcg tablet 137 mcg PO DAILY 10/15/24 10/18/24 History Allergy/AdvReac Type Severity Reaction Status Date / Time citalopram Allergy unknown Verified 03/13/25 08:14 codeine Allergy Unknown Verified 03/13/25 08:14 lithium Allergy Unknown Verified 03/13/25 08:14 Family History Mother Diabetes Breast cancer Anemia Depression Hypertension Father Diabetes Heart disease Hypertension CVA (cerebral vascular accident) in his 40'2 from CVA Hyperlipemia Brother Asthma Hypertension CAD (coronary artery disease), Onset Age: 50 coronary stents Sister Depression Seizures Grandmother Diabetes Thyroid disorder Heart disease Grandfather Diabetes Thyroid disorder Heart disease Aunt Heart disease CAD (coronary artery disease) stents Uncle Heart disease CAD (coronary artery disease) stents Other Arthritis Surgical History (Updated 03/13/25 @ 08:23 by Ksenia Saldana) History of bunionectomy of right great toe History of cystoscopy History of foot surgery Hx of bilateral salpingo-oophorectomy Bariatric surgery status Hx of colonoscopy Hx of right knee surgery Hx of appendectomy H/O tooth extraction History of appendectomy History of section, classical History of hysterectomy History of eyelid surgery Social History Smoking Status: Never smoker second hand exposure: No alcohol intake: never substance use type: does not use caffeine: Yes frequency: does not exercise Audit: Pertinent Findings Pertinent Findings EKG Perinent findings: 01/2022: NSR Stress test pertinent findings: 03/30/2024: Negative stress test Echo (EF%) pertinent findings: ECHOCARDIOGRAM 10/24/2020 Interpretation Summary Normal LV size. Left ventricular systolic function is normal. The estimated ejection fraction is 60 %. Pulmonary artery systolic pressure is 27 mmHg. Contrast injection was performed. Recommendation Anesthesia Recommendation Anesthesia recommendation: OPTIMIZED for anesthesia
[2025-03-21] VITALS (12 sets, daily range): BP systolic 97–134; BP diastolic 59–97; PULSE 58–81; RESP 14–18; TEMP 36.4–36.6; O2SAT 95–100; BMI 29.0
--- OUTSIDE RECORDS SUMMARY | 2025-03-21 06:29 | XMS RPT_ITS | CCD ---
Author Organization [facility] Care Team Providers Care Patient Service Associate Name Role Phone Merly Bob NP Unavailable Dr. Carlos Chris Chi Primary Care Provider Dr. Carlos Chris Chi Referring Provider 1([facility])[phone] Tariq Qiu Attending Provider Dr. Neri Costello Attending Provider 1([facility])[phone] Tariq Qiu Referring Provider Dr. Matthias Mendieta Attending Provider Carlos Chris Chi Primary Care Provider ANAID GARSIA Unavailable ARI Jimenez Attending Provider ARI Jimenez Referring Provider ARI Jimenez Other Provider ZANDRA PORTILLO Unavailable Dr. Carlos Chris Chi Primary Care Provider Dr. Carlos Chris Chi Referring Provider [phone] Dr. Neri Costello Attending Provider 1([facility])[phone] LEONIE Broussard Attending Provider 1([facility])[phone] Dr. Carlos Chris Chi Primary Care Provider 1([facility])[phone] Dr. Carlos Chris Chi Referring Provider 1([facility])[phone] LEONIE Broussard Attending Provider Pavithra CHAPMAN, ARI Hodges Attending Provider Aries, Dr. Carlos Madden Primary Care Provider Aries, Dr. Carlos Madden Referring Provider Pravin, Dr. He Attending Provider ARI Limon Attending Provider [facility] AUDIO ENGINEER, AUDIO ENGINEER-C Terri Attending Provider Aries, Dr. Carlos Madden Primary Care Provider Aries, Dr. Carlos Madden Referring Provider Pravin, Dr. He Attending Provider [phone] RAMAN MCGINNISNDREA Unavailable PCP, Other Primary Care Physician PCP, OTHER Primary Care Unavailable ZANDRA PORTILLO Attending Unavailable ZANDRA PORTILLO Attending Unavailable PCP, OTHER Primary Care Unavailable PCP, OTHER Primary Care Unavailable AYALA BUNCH Attending Unavailable ANAID GARSIA Attending Unavailable PCP, OTHER Primary Care Unavailable ALPHONSE GALVAN Consulting Unavailable ZANDRA PORTILLO Attending Unavailable PCP, OTHER Primary Care Unavailable Dr. Carlos Chris Chi Primary Care Provider Aries, Dr. Carlos Madden Referring Provider LEONIE Broussard Attending Provider Aries, Carlos Madden Primary Care Provider Ivelisse Phillip MD Primary Care Provider Aries, Carlos Madden Primary Care Provider [phone] Amaris CHAPMAN, PA Darlin Metzger Attending Provider ARIES, CARLOS MADDEN Primary Care Unavailable GENEVIEVE THOMPSON Referring Unavailable ARIES, CARLOS MADDEN Primary Care Unavailable SYLVIA AYALA Admitting Unavailable ARIESCARLOS JENNINGS CHI Primary Care Unavailable SYLVIA AYALA Attending Unavailable Aries, Dr. Carlos Madden Primary Care Provider [phone] Aries, Dr. Carlos Madden Referring Provider Aries, Dr. Carlos Madden Primary Care Provider Aries, Dr. Carlos Madden Referring Provider LEONIE Broussard Attending Provider Aries, Dr. Carlos Madden Primary Care Provider Aries, Dr. Carlos Madden Referring Provider LEONIE Broussard Attending Provider ARI Licea Attending Provider Aries, Dr. Carlos Madden Primary Care Provider Aries, Dr. Carlos Madden Referring Provider [phone] LEONIE Broussard Attending Provider Dr. Gino Glover Attending Provider Aries MENDEZ, Higinio Primary Care Provider 1([facility])[phone] Aries, Dr. Carlos Madden Primary Care Provider 1([facility])[phone] Aries, Dr. Carlos Madden Referring Provider 1([facility])[phone] ARI Licea Attending Provider LEONIE Broussard Attending Provider Dr. Gino Glover Attending Provider 1([facility])[phone] ANAID GARSIA Attending Unavailable ARIES, CARLOS-CHI Primary Care Unavailable Aries, Carlos Chi Primary Care Provider GUDELIA MI Referring Unavailable ARIES, CARLOS CHI Primary Care Unavailable GDUELIA MI Referring Unavailable ARIES, CARLOS CHI Primary Care Unavailable GUDELIA MI Referring Unavailable ARIES, CARLOS CHI Primary Care Unavailable ARIES, CARLOS CHI Primary Care Unavailable BENDARAM, ALFRED SHERMAN Attending Unavaila ble BENDARAM, ALFRED SHERMAN Referring Unavaila ble ARIES, CARLOS CHI Primary Care Unavailable BENDARAM, ALFRED SHERMAN Attending Unavaila ble ARIES, CARLOS CHI Primary Care Unavailable Aries MENDEZ, Dr. Carlos Madden Primary Care Provider Dr. Kristofer An DO Attending Provider Dr. Kristofer An DO Referring Provider Dr. Carlos Chris MD, Chi Referring Provider Aries MENDEZ, Dr. Carlos Madden Attending Provider Thiago MENDEZ, Dr. Durham Attending Provider Thiago MENDEZ, Dr. Durham Referring Provider Jaden MENDEZ, Ramirez Emergency Provider David CARMONA, Dr. Yadav Admit Provider David CARMONA, Dr. Yadav Referring Provider David CARMONA, Dr. Yadav Other Provider Niki MENDEZ, Dr. Prudencio Felix Attending Provider David CARMONA, Dr. Yadav Attending Provider Niki MENDEZ, Dr. Prudencio Felix Other Provider Giuseppe HEATON, Dr. Lewis Attending Provider Giuseppe HEATON, Dr. Lewis Referring Provider Rishi MENDEZ, Dr. Galan Other Provider Aries MENDEZ, Dr. Carlos Madden Primary Care Provider Aries MENDEZ, Dr. Carlos Madden Attending Provider Jaden MENDEZ, Brodnax Emergency Provider David CARMONA, Dr. Yadav Admit Provider Dr. Vicenta Hernandez DO Referring Provider David CARMONA, Dr. Yadav Other Provider Niki MENDEZ, Dr. Prudencio Felix Attending Provider Dr. Vicenta Hernandez DO Attending Provider Niki MENDEZ, Dr. Prudencio Felix Other Provider Giuseppe HEATON, Dr. Lewis Attending Provider Giuseppe HEATON, Dr. Lewis Referring Provider Aries MENDEZ, Dr. Carlos Madden Referring Provider Dr. Kristofer An DO Attending Provider Friend DO, Dr. Miner Referring Provider Rishi MENDEZ, Dr. Galan Other Provider Aries MENDEZ, Dr. Carlos Madden Primary Care Provider Aries MENDEZ, Dr. Carlos Madden Attending Provider Brian MENDEZ, Dr. Rene Attending Provider [phone] Friend, Kristofer Attending Unavailable Aries, Carlos Chi Primary Care Unavailable Friend, Kristofer Referring Unavailable Adalberto, Gino Referring Unavailable Aries, Carlos Chi Primary Care Unavailable Adalberto, Gino Attending Unavailable Vicenta Hernandez Consulting Unavailable Vicenta Hernandez Admitting Unavailable Prudencio Prince Attending Unavailable Aries, Carlos Chi Primary Care Unavailable David, Vicenta Referring Unavailable Joshua Mack Attending Unavailable Aries, Carlos Chi Primary Care Unavailable Aries, Carlos Chi Referring Unavailable Aries, Carlos Chi Primary Care Unavailable Aries, Carlos Chi Attending Unavailable Aries, Carlos Chi Referring Unavailable Aries, Carlos Chi Attending Unavailable Aries, Carlos Chi Primary Care Unavailable Aries, Carlos Chi Referring Unavailable Anju Torres Attending Unavailable Aries, Carlos Chi Primary Care Unavailable Aries, Carlos Chi Referring Unavailable Aries, Carlos Chi Attending Unavailable Aries, Carlos Chi Primary Care Unavailable Aries, Carlos Chi Primary Care Unavailable Joshua Chin Referring Unavailable Joshua Chin Attending Unavailable Darlin Jimenez Referring Unavail able Darlin Jimenez Attending Unavail able Aries, Carlos Chi Primary Care Unavailable Aries, Carlos Chi Primary Care Unavailable Aries, Carlos Chi Attending Unavailable Aries, Carlos Chi Primary Care Unavailable Friend, Kristofer Attending Unavailable Friend, Kristofer Referring Unavailable Adalberto, Gino Referring Unavailable Adalberto, Gino Attending Unavailable Aries, Carlos Chi Primary Care Unavailable Aries, Carlos Chi Primary Care Unavailable Friend, Kristofer Attending Unavailable Friend, Kristofer Referring Unavailable Aries, Carlos Chi Primary Care Unavailable Aries, Carlos Chi Attending Unavailable Friend, Kristofer Attending Unavailable Aries, Carlos Chi Primary Care Unavailable Friend, Kristofer Referring Unavailable Aries, Carlos Chi Attending Unavailable Aries, Carlos Chi Primary Care Unavailable Friend, Kristofer Referring Unavailable Friend, Kristofer Attending Unavailable Aries, Carlos Chi Primary Care Unavailable MlkiMarva Referring Unavailable Aries, Carlos Chi Primary Care Unavailable Marva Das Attending Unavailable Aries, Carlos Chi Primary Care Unavailable Aries, Carlos Chi Referring Unavailable Aries, Carlos Chi Attending Unavailable Joshua Chin Consulting Unavailable Aries, Carlos Chi Referring Unavailable Aries, Carlos Chi Attending Unavailable Aries, Carlos Chi Primary Care Unavailable Aries, Carlos Chi Primary Care Unavailable Devika White Referring Unavailable Devika White Attending Unavailable Aries, Carlos Chi Attending Unavailable Aries, Carlos Chi Primary Care Unavailable Aries, Carlos Chi Attending Unavailable Aries, Carlos Chi Primary Care Unavailable Joshua Chin Referring Unavailable Dereje Nicole Consulting Unavailable Joshua Chin Attending Unavailable Aries, Carlos Chi Primary Care Unavailable Friend, Kristofer Attending Unavailable Aries, Carlos Chi Primary Care Unavailable Aries, Carlos Chi Referring Unavailable Aries, Carlos Chi Primary Care Unavailable Aries, Carlos Chi Attending Unavailable Aries, Carlos Chi Referring Unavailable FriendKristofer Attending Unavailable Aries, Carlos Chi Referring Unavailable Anju Torres Attending Unavailable Aries, Carlos Chi Primary Care Unavailable Aries, Carlos Chi Referring Unavailable Aries, Carlos Chi Primary Care Unavailable Aries, Carlos Chi Referring Unavailable Friend, Kristofer Attending Unavailable Sylvia Broussard Attending Unavailable Arise, Carlos Chi Primary Care Unavailable Aries, Carlos Chi Referring Unavailable Aries, Carlos Chi Primary Care Unavailable Sylvia Broussard Attending Unavailable Darlin Jimenez Referring Unavail able Aries, Carlos Chi Primary Care Unavailable Neri Costello Attending Unavailable Darlin Jimenez Consulting Unavail able David, Vicenta Referring Unavailable David, Vicenta Consulting Unavailable David, Vicenta Admitting Unavailable KotsonisFrankiePrudencio F Attending Unavailable Aries, Carlos Chi Primary Care Unavailable Kotsonis Prudencio F Consulting Unavailable David, Vicenta Referring Unavailable David, Vicenta Attending Unavailable David, Vicenta Consulting Unavailable David, Vicenta Admitting Unavailable Aries, Carlos Chi Primary Care Unavailable Aries, Carlos Chi Primary Care Unavailable Trenton Sanchez NP Attending Unavailable Aries, Carlos Chi Referring Unavailable Friend, Kristofer Attending Unavailable Aries, Carlos Chi Primary Care Unavailable Aries, Carlos Chi Referring Unavailable Aries, Carlos Chi Primary Care Unavailable Gudelia Mi Consulting Unavailable Aries, Carlos Chi Attending Unavailable Aries, Carlos Chi Referring Unavailable Aries, Carlos Chi Primary Care Unavailable Aries, Carlos Chi Attending Unavailable Aries, Carlos Chi Referring Unavailable Aries, Carlos Chi Primary Care Unavailable Aries, Carlos Chi Attending Unavailable Aries, Carlos Chi Primary Care Unavailable Anju Torres Attending Unavailable Allergies Allergy Classification Reported Allergen(s) Allergy Type Date of Onset Reaction(s) Facility (4 sources) citalopram drug allergy 6 [facility] Work Phone: (20 sources) lithium; Translations: [LITHIUM] drug allergy 6 [facility] U[facility]et [facility] Work Phone: Comment on above: abdominal pain (20 sources) Citalopram; Translations: [CITALOPRAM] Drug Allergy 3 GI Upset [facility] Work Phone: Comment on above: abdominal pain (20 sources) Codeine; Translations: [CODEINE] Drug Allergy 3 Other: See Comments [facility] Comment on above: room spins (20 sources) Non-steroidal anti-inflammato ry agent; Translations: [NSAIDS (NON-STEROIDAL ANTI-INFLAMMATO RY DRUG)] Drug Allergy 3 Other: See Comments [facility] (1 source) Citalopram Drug Allergy 5 [facility] (1 source) Codeine Drug Allergy 5 [facility] NEGATED: Highlighted row has been ruled out! (3 sources) natural latex rubber; Translations: [LATEX, NATURAL RUBBER] Drug allergy (disorder) [facility] [place] NEGATED: Highlighted row has been ruled out! (3 sources) No IV Contrast Allergy.; Translations: [IV Dye, Iodine Containing] Drug allergy (disorder) [facility] [place] Medications Current Medications Medication Drug Class(es) Dates Sig (Normalized) Sig (Original) acetaminophen 500 mg oral tablet (16 sources) Start: 03-17-2023 take 2 tablets by mouth every six hours Acetaminophen (Acetaminophen Extra Strength) 500 mg tablet Active 1000 MG PO EVERY 6 HOURS 30 March 17, 2023 12:00am acetaminophen 16 0 mg/5 mL (5 mL) suspension Take by mouth. 0 Active Acetaminophen 16 0 MG/5ML as directed Orally Not-Taking allopurinol 100 mg oral tablet (20 sources) Xanthine Oxidase Inhibitor Start: 03-19-2022 take 1 tablet by mouth once daily Allopurinol 100 mg Tablet Active 100 mg PO DAILY March 10, 2023 12:00am ALPRAZolam 0.5 mg oral tablet (20 sources) Benzodiazepine Start: 04-06-2021 take 1 tablet by mouth at bedtime as needed for anxiety Alprazolam (Xanax) 0.5 mg tablet Active 0.5 mg PO AT BEDTIME as needed for Anxiety April 06, 2021 12:00am Start: 05-19-2016 End: 12-21-2024 take 1 tablet by mouth once daily Alprazolam (Xanax) 0.25 mg tablet Discontinued 0.25 mg PO DAILY January 09, 2020 12:00am August 15, 2020 11:05am Comment on above: Take 1 tablet by chaim th once daily as needed for Anxiety. aspirin 325 mg oral tablet (20 sources) Platelet Aggregation Inhibitor, Nonsteroidal Anti-inflammatory Drug Start: 08-10-2022 take 1 tablet by mouth once daily Aspirin Active 325 MG PO DAILY August 09, 2022 11:00pm Take 1 tablet daily Start: 01-14-2022 take 81 mg by mouth once daily Aspirin Active 81 MG PO DAILY January 13, 2022 11:00pm Calcium (20 sources) Phosphate Binder, Calcium take 1 tablet by mouth once daily CALCIUM ORAL Take 1 tablet by mouth once daily. Active CALCIUM ORAL Ivan e by mouth. Active CALCIUM ORAL Ivan e by mouth. 0 Active Comment on above: Take by mouth. calcium citrate 1500 mg / cholecalciferol 250 unt oral tablet (1 source) Vitamin D calcium citrate- vitamin D3 (Citracal + D Maximum) 315 mg-6.25 mcg (250 unit) tablet Citracal Calcium+D 0 Active calcium citrate malate-vit D 3 (20 sources) Start: 03-10-2023 calcium citrate malate-vit D3 Active 1 NMA SL/PO DAILY March 10, 2023 12:00am Start: 03-10-2023 calcium citrat e malate-vit D3 Active 1 NMA SL/PO DAILY March 09, 2023 11:00pm Start: 03-10-2023 calcium citrat e malate-vit D3 Active 1 EACH SL/PO DAILY March 09, 2023 11:00pm Start: 03-10-2023 calcium citrat e malate-vit D3 Active 1 EACH SL/PO DAILY March 10, 2023 12:00am Start: 03-10-2023 calcium citrat e malate-vit D3 Active SL/PO DAILY March 10, 2023 12:00am cholecalciferol 0.125 mg oral tablet (20 sources) Vitamin D Start: 08-04-2022 take 1 tablet by mouth once daily Cholecalciferol (Vitamin D3) (Vitamin D3) 125 mcg (5,000 unit) Tablet Active 125 MCG PO DAILY August 03, 2022 11:00pm Start: 01-09-2020 End: 02-01-2020 take 1 tablet by mouth once daily Cholecalciferol (Vitamin D3) 125 mcg (5,000 unit) tablet Discontinued 125 ug PO DAILY January 09, 2020 12:00am February 01, 2020 9:02am Start: 01-09-2020 End: 02-01-2020 take 1 tablet by mouth every week Cholecalciferol (Vitamin D3) 1,250 mcg (50,000 unit) tablet Discontinued 78066 U PO EVERY WEEK January 09, 2020 12:00am February 01, 2020 9:02am take 1 tablet by chaim th once daily cholecalciferol (Vitamin D3) 25 MCG (1000 UT) tablet Take 1 tablet (25 mcg) by mouth once daily. 0 Active take 1 tablet by chaim th once daily cholecalciferol (Vitamin D-3) 50 MCG (2000 UT) tablet Take 1 tablet (2,000 Units) by mouth once daily. 0 Active take 1 tablet by chaim th every twenty-four hours Vitamin D 50 MCG (2000 UT) 1 tablet Orally Once a day for 30 day(s) Not-Taking cholecalciferol (vitamin D3) (Vitamin D3) 50 mcg (2,000 unit) take 1 capsule by mo [facility] every twenty-four hours Vitamin D3 50 MCG (2000 UT) 1 capsule Orally Once a day for 30 day(s) Active take 1 tablet by chaim th once daily VITAMIN D3 5000 UNIT TABS One tablet by mouth daily CHOLECALCIFEROL [id number] Lizzie Hawkins RN RN Citracal Calcium+D (2 sources) Citracal Calcium +D Active cobamamide 0.1 mg / vitamin b12 5 mg sublingual tablet (20 sources) Vitamin B12 Start: 03-10-2023 Cyanocobalamin -Cobamamide (B12) 5,000-100 mcg Lozenge Active 1 NMA SL DAILY March 10, 2023 12:00am Start: 03-10-2023 Cyanocobalamin -Cobamamide (B12) 5,000-100 mcg Lozenge Active 1 LOZENGE SL DAILY March 10, 2023 12:00am Start: 03-10-2023 Cyanocobalamin -Cobamamide (B12) 5,000-100 mcg Lozenge Active LOZENGE SL March 10, 2023 12:00am CPAP (20 sources) CPAP nightly Not -Taking CPAP nightly Act dipika cyanocobalamin, vitamin B-12, 3,000 mcg capsule (1 source) cyanocobalamin, vitamin B-12, 3,[address] under the tongue. 0 Active cyanocobalamin/folic acid (VITAMIN J13-REVLC ACID SUBLINGUAL) (7 sources) take 1 dose under the tongue once daily cyanocobalamin/folic acid (VITAMIN H08-MNDFT ACID SUBLINGUAL) Dissolve 1 Each under the tongue once daily. Active docusate sodium 100 mg oral capsule (6 sources) Start: 05-06-20 End: 06-05-20 take 1 capsule by mouth twice daily docusate sodium (COLACE) 100 mg capsule Take 1 capsule by mouth twice daily. 60 capsule 0 05/06/2023 06/05/2023 Active Comment on above: Take 1 capsule by [facility] twice daily. enteric contrast (will be provided with radiology test) (1 source) Start: 07-02-20 End: 07-03-20 enteric contrast (will be provided with radiology test) Indications: Elevated AFP , Abnormal tumor markers For CT PELVIS W IVCON order Administer, As Directed One Time Only, via Oral, Rectal, both Oral and Rectal, Enteric Tube, Stoma or Indwelling Catheter, Enteric Contrast as designated per enteric contrast guidelines 1 Each 07/02/2024 07/03/2024 Active ergocalciferol 1.25 mg oral capsule (20 sources) Provitamin D2 Compound Start: 01-28-20 take 1250 ug by mouth every month Ergocalciferol (Vitamin D2) Active 1250 MCG PO EVERY MONTH January 27, 2022 12:58pm Start: 12-30-2021 End: 01-27-2022 Ergocalciferol (Vitamin D2) 1,250 mcg (50,000 unit) capsule Discontinued 1 NMA PO DAILY December 30, 2021 12:00am January 27, 2022 12:58pm Start: 12-30-2021 End: 01-27-2022 take 1 capsule by mouth once daily Ergocalciferol (Vitamin D2) Discontinued 1 CAP PO DAILY December 30, 2021 12:00am January 27, 2022 12:58pm 168 hr estradiol 0.26298 mg/hr transdermal system (20 sources) Estrogen Start: 07-22-2023 Estradiol Acti ve 1 PATCH TD July 22, 2023 12:00am Start: 05-10-2023 End: 12-25-2024 Estradiol 0.075 mg/24 hr pat ch weekly Active 1 NMA TD July 22, 2023 12:00am estradiol (Vivel le-DOT) 0.075 mg/24 hr patch [...] sources) Vitamin B12 cyanocobalamin/f olic acid (VITAMIN I29-BNBNC ACID) 1,000-400 mcg lozg Dissolve under the tongue. Active Comment on above: Dissolve under the t ongue. hydrOXYzine hydrochloride 50 mg oral tablet (7 sources) Antihistamine Start: 06-25-20 take 1 tablet by mouth every eight hours as needed hydrOXYzine HCl (ATARAX) 50 mg tablet Take 50 mg by mouth three times a day as needed for anxiety. 06/25/2024 Active iv contrast (will be provided with radiology test) (2 sources) Start: 07-02-20 End: 07-03-20 iv contrast (will be provided with radiology [...] MR contrast administration guidelines link. MULTIVITAMIN ORAL (20 sources) MULTIVITAMIN ORA L Take by mouth. [...] Mcginnis CNP Directions: 1 capsule oral daily ONETOUCH ULTRA2 METER (7 sources) Start: 07-23-2024 ONETOUCH ULTRA 2 METER 1 Each. 07/23/2024 Active pediatric multivitamin no.76 (FLINTSTONES COMPLETE ORAL) (1 source) pediatric multiv itamin no.76 (FLINTSTONES COMPLETE ORAL) Take by mouth. 0 Active Pediatric Multivitamin No.76 (Flintstones Complete) Tablet,Chewable (20 sources) Start: 03-10-2023 Pediatric Mult ivitamin No.76 (Flintstones Complete) Tablet,Chewable Active 2 {tbl} PO DAILY March 10, 2023 12:00am Start: 03-10-2023 Pediatric Mult ivitamin No.76 (Flintstones Complete) Tablet,Chewable Active 2 {tbl} PO DAILY March 09, 2023 11:00pm Start: 03-10-2023 take 2 tablets by mo uth once daily Pediatric Multivitamin No.76 (Flintstones Complete) Tablet,Chewable Active 2 TABLET PO DAILY March 09, 2023 11:00pm Start: 03-10-2023 take 2 tablets by mo uth once daily Pediatric Multivitamin No.76 (Flintstones Complete) Tablet,Chewable Active 2 TABLET PO DAILY March 10, 2023 12:00am potassium chloride 10 meq extended release oral tablet (20 sources) Start: 08-29-2024 take 1 tablet by mouth once potassium chloride (K-TAB) 10 mEq tablet Take 1 tablet by mouth every afternoon. 08/29/2024 Active Start: 01-17-2023 End: 03-21-2023 Potassium Chloride 10 mEq ta blet extended release Discontinued 10 NMA PO DAILY January 17, 2023 12:00am March 21, 2023 10:29am rosuvastatin calcium 40 mg oral tablet (20 sources) HMG-CoA Reductase Inhibitor Start: 08-07-2020 take 1 tablet by mouth once daily Rosuvastatin (Crestor) 40 mg tablet Active 40 mg PO DAILY August 07, 2020 12:00am simethicone 80 mg chewable tablet (15 sources) simethicone (Mylicon) 80 mg chewable tablet Chew 1 tablet (80 mg) 4 times a day as needed. after meals and at bedtime 0 Active levothyroxine sodium 0.125 mg oral tablet (20 sources) l-Thyroxine Start: 12-21-2024 take 1 tablet by mouth once daily levothyroxine (SYNTHROID) 125 mcg tablet Indications: Postablative hypothyroidism Take 1 tablet by mouth once daily. 90 tablet 12/21/2024 Active Start: 09-11-2024 End: 12-21-2024 take 1 tablet by mouth once daily Levothyroxine 137 mcg tablet Active 137 ug PO DAILY October 15, 2024 1:00am Start: 08-22-2024 End: 10-15-2024 Levothyroxine 150 mcg capsul e Discontinued 137 ug PO daily August 22, 2024 1:00am October 15, 2024 10:15am Start: 02-10-2024 End: 08-22-2024 take 2 capsules by mouth once daily Levothyroxine (Tirosint) 175 mcg capsule Discontinued 175 ug PO .QD, 2 every February 10, 2024 3:45pm August 22, 2024 11:14am Start: 01-17-2023 End: 09-18-2024 take 1 capsule by mouth once daily Levothyroxine (Tirosint) 175 mcg capsule Discontinued 175 ug PO DAILY May 16, 2023 3:18pm July 22, 2023 10:09am Start: 12-30-2021 End: 01-17-2023 take 1 tablet by mouth once daily Levothyroxine 175 mcg tablet Discontinued 175 ug PO DAILY December 30, 2021 12:00am January 17, 2023 10:40am Start: 09-07-2021 End: 12-30-2021 take 1 tablet by mouth once daily Levothyroxine 150 mcg tablet Discontinued 150 ug PO DAILY September 07, 2021 1:00am December 30, 2021 10:47am Start: 02-14-2017 End: 05-17-2025 SYNTHROID 50 MCG TABS Take o ne tablet daily LEVOTHYROXINE SODIUM [id number] Merly Bob NP Start: 02-14-2017 End: 05-17-2025 SYNTHROID 50 MCG TABS Take o ne tablet daily LEVOTHYROXINE SODIUM [id number] Merly Bob NP Start: 04-01-2016 End: 03-09-2023 take 1 tablet by mouth once daily LEVOXYL 25 mcg tablet Indications: Acquired hypothyroidism Take 1 tablet by mouth once daily. Take on empty stomach. For Thyroid. In addition to 200 mcg tablet. Do not substitute with generic 30 tablet 04/01/2016 03/09/2023 Discontinued Start: 08-28-2010 End: 03-09-2023 take 1 tablet by mouth once daily Levothyroxine 200 mcg tablet Discontinued 200 ug PO .daily, miss Simon& June 11, 2021 10:36am September 07, 2021 11:43am Start: 08-28-2010 SYNTHROID 200 MCG TABS LEVOTHYROXINE SODIUM [id number] Lizzie Hawkins RN RN Start: 08-28-2010 take 1 tablet by chaim th once daily SYNTHROID 100 MCG TABS One tablet by mouth daily LEVOTHYROXINE SODIUM [id number] Kwaku Haider MD Start: 08-25-2010 take 1 tablet by chaim th once daily SYNTHROID 100 MCG TABS One tablet by mouth daily LEVOTHYROXINE SODIUM [id number] Kwaku Haider MD Start: 08-25-2010 take 1 tablet by chaim th once daily SYNTHROID 100 MCG TABS One tablet by mouth daily LEVOTHYROXINE SODIUM [id number] Kwaku Haider MD Start: 07-29-2010 take 1 tablet by chaim th once daily SYNTHROID 125 MCG TABS One tablet by mouth daily LEVOTHYROXINE SODIUM [id number] Kwaku Haider MD Start: 07-29-2010 take 1 tablet by chaim th once daily SYNTHROID 125 MCG TABS One tablet by mouth daily LEVOTHYROXINE SODIUM [id number] Kwaku Haider MD Start: 07-27-2010 End: 08-26-2010 take 1 tablet by mouth once daily SYNTHROID 88 MCG TABS One tablet by mouth daily LEVOTHYROXINE SODIUM [id number] Kwaku Haider MD Start: 07-27-2010 End: 08-26-2010 take 1 tablet by mouth once daily SYNTHROID 88 MCG TABS One tablet by mouth daily LEVOTHYROXINE SODIUM [id number] Kwaku Haider MD levothyroxine (T irosint) 150 mcg capsule Take 175 mcg by mouth once daily. 0 Active take 1 tablet by chaim th once daily in the morning Levothyroxine Sodium 150 MCG 1 tablet in the morning on an empty stomach Orally Once a day for 6 days Active take 1 tablet by chaim once daily in the morning Levothyroxine Sodium 175 MCG 1 tablet in the morning on an empty stomach Orally Once a day Active End: 02-14-2017 take 1 tablet by mouth once daily SYNTHROID 25 MCG TABS One tablet by mouth daily LEVOTHYROXINE SODIUM [id number] Merly Bob AUDIO ENGINEER take 1 tablet by chaim once daily SYNTHROID 25 MCG TABS One tablet by mouth daily LEVOTHYROXINE SODIUM [id number] Lizzie Hawkins RN RN Comment on above: Take 1 tablet by chaim th daily before breakfast. In addition to 25mcg tablet. Do not substitute with generic Take 1 tablet by chaim once daily. Take on empty stomach. For Thyroid. In addition to 200 mcg tablet. Do not substitute with generic traMADol hydrochloride 50 mg oral tablet (6 sources) Opioid Agonist Start: 3 take 50 mg by mouth every six hours Tramadol Active 50 MG PO EVERY 6 HOURS 7 April 01, 2023 12:00am ursodiol 300 mg oral capsule (15 sources) Bile Acid Start: 2 take 1 capsule by mouth three times daily ursodiol (Actigall) 300 mg capsule Take 1 capsule (300 mg) by mouth 3 times a day. 0 10/05/2022 Active Start: 10-05-2022 take 1 capsule by mo [facility] every twelve hours Ursodiol 300 MG 1 capsule Orally Twice a day for 30 day(s) Sep, Not-Taking vilazodone hydrochloride 10 mg oral tablet (20 sources) Start: 07-22-2023 take 1 tablet by mouth at bedtime Vilazodone 10 mg tablet Active 20 mg PO AT BEDTIME July 22, 2023 12:00am Start: 07-22-2023 take 20 mg by mouth at bedtime Vilazodone Active 20 MG PO AT BEDTIME July 22, 2023 12:00am Vitamin B12 3000 MCG (2 sources) Vitamin B12 3000 MCG as directed Sublingual quick melts Active Vitamin D3 25 MCG (1000 UT) (2 sources) take 1 tablet by mouth once daily Vitamin D3 25 MCG (1000 UT) 1 tablet Orally Once a day Active vitamin e 180 mg oral capsule (13 sources) Start: 08-22-2024 take 1 capsule by mouth once daily Vitamin E (Dl, Acetate) 180 mg (400 unit) capsule Active 180 mg PO daily August 22, 2024 1:00am Vitamin E, dl, a cetate, (VITAMIN E) 400 unit capsule Take 800 Units by mouth once daily. Active Completed/Discontinued Medications Medication Drug Class(es) Dates Sig (Normalized) Sig (Original) acetaminophen 325 mg / HYDROcodone bitartrate 5 mg oral tablet (20 sources) Opioid Agonist Start: 01-24-2019 End: 01-28-2019 Hydrocodone-Acetami nophen 1 TABLET tablet Discontinued 1 - 2 {tbl} PO EVERY 4 HOURS NEEDED as needed for Severe Pain () 27 01January 24, 2019 12:00am January 27, 2019 12:00am January 28, 2019 12:10am Start: 01-24-2019 End: 01-28-2019 take 1 tablet by mouth every four hours as needed Hydrocodone-Acetaminophen Discontinued 1 - 2 TABLET PO EVERY 4 HOURS NEEDED 27 01January 24, 2019 12:00am January 28, 2019 12:10am Start: 12-09-2018 End: 12-12-2018 Hydrocodone-Acetaminophen 1 TABLET tablet Discontinued 1 {tbl} PO EVERY 6 HOURS NEEDED as needed for Pain 6 3 December 09, 2018 1:00am December 11, 2018 1:00am December 12, 2018 1:08am Start: 12-09-2018 End: 12-12-2018 take 1 tablet by mouth every six hours as needed Hydrocodone-Acetaminophen Discontinued 1 TABLET PO EVERY 6 HOURS NEEDED 6 3 December 09, 2018 1:00am December 12, 2018 1:08am acetaminophen 325 mg / oxyCODONE hydrochloride 5 mg oral tablet (20 sources) Opioid Agonist Start: 10-19-2024 End: 03-08-2025 Oxycodone-Acetaminophen 5-32 5 mg tablet Discontinued 1 {tbl} PO Q8H as needed for pain 28 October 19, 2024 March 08, 2025 9:04am Start: 08-04-2023 End: 11-23-2023 Oxycodone-Acetaminophen (Per cocet) 5-325 mg tablet Discontinued 1 {tbl} PO Q8H as needed for pain 07 12August 04, 2023 November 23, 2023 9:37am Start: 07-16-2023 take 1 tablet by chaim th every six hours Oxycodone-Acetaminophen (Percocet) 5-325 mg tablet Active 1 TABLET PO EVERY 6 HOURS 09 11July 16, 2023 End: 09-11-2010 PERCOCET 5-325 MG TABS 1 tab let every 6 hours as needed for pain OXYCODONE-ACETAMINOPHEN [id number] Kwaku Haider MD PERCOCET 5-325 M G TABS 1 tablet every 6 hours as needed for pain OXYCODONE-ACETAMINOPHEN [id number] Kwaku Haider MD End: 09-11-2010 PERCOCET 5-325 MG TABS 1 tab let every 6 hours as needed for pain OXYCODONE-ACETAMINOPHEN [id number] Kwaku Haider MD acetaminophen 325 mg / traMADol hydrochloride 37.5 mg oral tablet (20 sources) Opioid Agonist Start: 08-10-2022 End: 01-17-2023 Tramadol-Acetaminophen 37.5-325 mg tablet Discontinued 1 {tbl} PO EVERY 6 HOURS as needed for pain 06 05August 10, 2022 12:00am January 17, 2023 9:57am Start: 08-10-2022 End: 01-17-2023 take 1 tablet by mouth every six hours Tramadol-Acetaminophen Discontinued 1 TABLET PO EVERY 6 HOURS 06 05August 10, 2022 12:00am January 17, 2023 9:57am [id number] 200 actuat albuterol 0.09 mg/actuat metered dose inhaler (20 sources) beta2-Adrenergic Agonist Start: 04-14-2020 End: 03-29-2023 Albuterol Sulfate 90 mcg/actuation HFA aerosol inhaler Discontinued 2 NMA INHALATION Q4H as needed for shortness of breath or wheezing February 09, 2021 8:17am May 25, 2022 10:54am administer with spacer Start: 04-14-2020 End: 03-29-2023 take 1 puff(s) by inhalation every four hours Albuterol Sulfate Discontinued 2 PUFF INHALATION Q4H February 09, 2021 8:17am May 25, 2022 10:54am administer with spacer Start: 01-09-2020 End: 04-14-2020 Albuterol Sulfate (Ventolin Hfa) 90 mcg/actuation HFA aerosol inhaler Discontinued 1 NMA INHALATION ONCE January 09, 2020 12:00am April 14, 2020 8:27am three times a day Start: 01-09-2020 End: 04-14-2020 take 1 puff(s) by inhalation three times daily Albuterol Sulfate (Ventolin Hfa) 90 mcg/actuation HFA aerosol inhaler Discontinued 1 PUFF INHALATION ONCE January 09, 2020 12:00am April 14, 2020 8:27am three times a day Start: 03-12-2019 End: 11-15-2019 Albuterol Sulfate 90 mcg/act uation HFA aerosol inhaler Discontinued 1 NMA INHALATION EVERY 4 HOURS NEEDED as needed for Sob &/Or Wheezing March 12, 2019 12:00am November 15, 2019 3:53pm Start: 03-12-2019 End: 11-15-2019 take 1 puff(s) by inhalation every four hours as needed Albuterol Sulfate Discontinued 1 PUFF INHALATION EVERY 4 HOURS NEEDED March 12, 2019 12:00am November 15, 2019 3:53pm Start: 04-07-2016 take 2 puff(s) by in halation every four hours as needed for wheezing albuterol HFA (VENTOLIN HFA) 90 mcg/actuation inhaler Indications: Mild intermittent asthma without complication (HCC) Inhale 2 Puffs as instructed every 4 hours as needed for Wheezing/Shortness of Breath. 1 Inhaler 3 04/07/2016 Active take 1 puff(s) by in halation every four hours albuterol (Ventolin HFA) 90 mcg/actuation inhaler Inhale 1 puff every 4 hours if needed. 0 Active take 1 puff(s) by in halation every four hours as needed Ventolin HFA 108 (90 Base) MCG/ACT 1 puff as needed Inhalation every 4 hrs Active VENTOLIN HFA 108 (90 Base) MCG/ACT AERS one inhalation three times a day ALBUTEROL SULFATE [id number] Lizzie Hawkins RN RN VENTOLIN HFA 108 (90 Base) MCG/ACT AERS one inhalation three times a day ALBUTEROL SULFATE [id number] Lizzie Hawkins RN RN Comment on above: Inhale 2 Puffs as in structed every 4 hours as needed for Wheezing/Shortness of Breath. albuterol sulfate 90 mcg HFA Aerosol Inhaler [...] Directions: oral (2 sources) aspirin 325 mg Tablet Directions: oral Additional Instructions: Aspirin Active 325 MG PO DAILY August 10, 2022 12:00am Take 1 tablet daily Aspirin Active 81 MG PO DAILY January 14, 2022 12:00am atorvastatin 20 mg oral tablet (20 sources) HMG-CoA Reductase Inhibitor Start: End: 019 take 1 tablet by mouth at bedtime Atorvastatin 20 mg tablet Discontinued 20 mg PO AT BEDTIME March 28, 2019 12:00am October 08, 2019 11:27am Start: 03-12-2019 End: 03-14-2019 take 1 tablet by mouth at bedtime Atorvastatin 40 mg tablet Discontinued 40 mg PO AT BEDTIME March 12, 2019 12:00am March 14, 2019 10:55am take 1 tablet by chaim once daily at bedtime atorvastatin 80 mg Tablet, Ordered By: Zandra Portillo MD Directions: 1 tablet oral daily at bedtime Additional Instructions: AUTOSUB FOR ROSUVASTATIN 40MG azithromycin 250 mg oral tablet (6 sources) Macrolide Antimicrobial Start: 06-03-2024 End: 07-23-2024 Azithromycin (Zithromax Z-Jerihco) 250 mg tablet Discontinued 0 PO .COMPLEX June 03, 2024 12:00am July 23, 2024 8:19am For 250 mg dose pack: take 500 mg today (day 1), then 250 mg for 4 days (days 2-5) PO 120 actuat budesonide 0.16 mg/actuat / formoterol fumarate 0.0045 mg/actuat metered dose inhaler (20 sources) Corticosteroid, beta2-Adrenergic Agonist Start: 01-09-2020 End: 04-14-2020 take 3 puff(s) by inhalation twice daily Budesonide-Formot stephanie (Symbicort) 160-4.5 mcg/actuation HFA aerosol inhaler Discontinued 2 NMA INHALATION TWICE A DAY January 09, 2020 12:00am April 14, 2020 8:27am 3 puffs 2 times a day Start: 01-09-2020 End: 04-14-2020 take 3 puff(s) by inhalation twice daily Budesonide-Formoterol (Symbicort) 160-4.5 mcg/actuation HFA aerosol inhaler Discontinued 2 PUFF INHALATION TWICE A DAY January 09, 2020 12:00am April 14, 2020 8:27am 3 puffs 2 times a day Start: 03-12-2019 End: 04-18-2019 Budesonide-Formoterol (Symbi chloé) 160-4.5 mcg/actuation HFA aerosol inhaler Discontinued 2 NMA INHALATION TWICE A DAY April 17, 2019 12:00am April 18, 2019 8:26am administer with spacer, rinse mouth after each use Start: 03-12-2019 End: 04-18-2019 take 1 puff(s) by mouth twice daily Budesonide-Formoterol (Symbicort) 160-4.5 mcg/actuation HFA aerosol inhaler Discontinued 2 PUFF INHALATION TWICE A DAY April 17, 2019 12:00am April 18, 2019 8:26am administer with spacer, rinse mouth after each use SYMBICORT 160-4. 5 MCG/ACT AERO three inhalations twice a day BUDESONIDE-FORMOTEROL FUMARATE [id number] Lizzie Hawkins RN RN SYMBICORT 160-4. 5 MCG/ACT AERO three inhalations twice a day BUDESONIDE-FORMOTEROL FUMARATE [id number] Lizzie Hawkins RN RN Celebrate Multi-Complete 18 - (14 sources) Celebrate Multi- Complete 18 - as directed Orally Not-Taking Celebrate Multi- Complete 18 - as directed Orally Active celecoxib 200 mg oral capsule (20 sources) Nonsteroidal Anti-inflammatory Drug Start: 03-17-2022 End: 03-19-2022 take 1 capsule by mouth twice daily Celecoxib 200 mg capsule Discontinued 200 mg PO TWICE A DAY March 17, 2022 12:00am March 19, 2022 9:54am cephalexin 500 mg oral capsule (14 sources) Cephalosporin Antibacterial Start: 08-04-2023 End: 11-23-2023 take 1 capsule by mouth every twelve hours Cephalexin 500 mg capsule Discontinued 500 mg PO EVERY 12 HOURS 6 August 04, 2023 12:00am November 23, 2023 9:37am ciprofloxacin 500 mg oral tablet (20 sources) Quinolone Antimicrobial Start: 01-01-2023 End: 01-17-2023 take 1 tablet by mouth twice daily Ciprofloxacin Hcl 500 mg tablet Discontinued 500 mg PO TWICE A DAY January 01, 2023 12:00am January 17, 2023 9:56am citalopram 20 mg oral tablet (20 sources) Serotonin Reuptake Inhibitor Start: 01-21-2019 End: 08-15-2020 take 1 tablet by mouth once daily Citalopram 20 mg tablet Discontinued 20 mg PO DAILY February 01, 2020 12:00am August 15, 2020 11:05am Comment on above: 20 mg. codeine phosphate 2 mg/ml / guaiFENesin 20 mg/ml oral solution (8 sources) Opioid Agonist Start: 08-28-2010 End: 09-11-2010 CHERATUSSIN AC 100-10 MG/5ML SYRP 5ml every 6hr as needed cough GUAIFENESIN-CODEIN E [id number] Kwaku Haider MD Start: 08-28-2010 End: 09-11-2010 CHERATUSSIN AC 100-10 MG/5ML SYRP 5ml every 6hr as needed cough GUAIFENESIN-CODEINE [id number] Kwaku Haider MD Start: 08-28-2010 CHERATUSSIN AC 100-10 MG/5ML SYRP 5ml every 6hr as needed cough GUAIFENESIN-CODEINE [id number] Kwaku Haider MD cyclobenzaprine hydrochloride 10 mg oral tablet (8 sources) Muscle Relaxant End: 09-11-2010 take 1 tablet by mouth three times daily as needed FLEXERIL 10 MG TABS One tablet by mouth three times daily as needed CYCLOBENZAPRINE HCL [id number] Kwaku Haider MD dexamethasone 6 mg oral tablet (12 sources) Corticosteroid Start: 10-06-2023 End: 11-23-2023 take 1 tablet by mouth once daily Dexamethasone 6 mg tablet Discontinued 6 mg PO DAILY October 06, 2023 1:00am November 23, 2023 2:16pm doxycycline hyclate 100 mg oral capsule (15 sources) Tetracycline-class Drug Start: 10-19-2024 End: 03-08-2025 take 1 capsule by mouth once daily Doxycycline Hyclate 100 mg capsule Discontinued 100 mg PO DAILY October 19, 2024 1:00am March 08, 2025 9:04am Start: 04-01-2023 take 100 mg by mouth twice [place] Doxycycline Hyclate Active 100 MG PO TWICE A DAY 29 07April 01, 2023 12:00am Start: 02-03-2023 End: 02-13-2023 take 1 capsule by mouth twice daily doxycycline monohydrate (MONODOX) 100 mg capsule Take 1 capsule by mouth twice daily for 10 days. 20 capsule 0 02/03/2023 02/13/2023 Active Start: 08-10-2022 take 1 tablet by [facility] once daily Doxycycline Hyclate Active 100 MG PO DAILY August 09, 2022 11:00pm Take 1 tablet daily for 14 days Comment on above: Take 1 capsule by mo [facility] twice daily for 10 days. 0.4 ml enoxaparin sodium 100 mg/ml prefilled syringe (20 sources) Low Molecular Weight Heparin Start: 10-19-2024 End: 03-08-2025 Enoxaparin (Lovenox) 40 mg/0.4 mL syringe Discontinued 40 mg SC DAILY 05 29October 19, 2024 1:00am March 08, 2025 9:04am Start: 04-01-2023 Enoxaparin (Lo venox) 40 mg/0.4 mL syringe Active 40 MG SC DAILY 05 29April 01, 2023 12:00am inject 0.4 mL by sub cutaneous injection once daily enoxaparin (Lovenox) 40 mg/0.4 mL syringe Inject 0.4 mL (40 mg) under the skin once daily. 0 Active inject 40 mg by subc utaneous injection once daily enoxaparin 30 mg/0.3 mL Syringe, Ordered By: Starr Mcginnis CNP Directions: 40 mg subcutaneous daily escitalopram 10 mg oral tablet (4 sources) Serotonin Reuptake Inhibitor take 1 tablet by mouth once daily LEXAPRO 10 MG TABS One tablet by mouth daily ESCITALOPRAM OXALATE [id number] Lizzie Hawkins RN RN etodolac 500 mg oral tablet (20 sources) Nonsteroidal Anti-inflammatory Drug Start: 1 End: 2 Etodolac 500 mg tablet Discontinued 500 mg PO TWICE A DAY 60 June 11, 2021 12:00am October 23, 2021 12:23pm Take twice a day for 2 weeks then as needed. Do not combine with other NSAIDs Tylenol is okay. Start: 07-27-2010 End: 09-11-2010 take 1 tablet by mouth three times daily as needed for pain ETODOLAC 200 MG CAPS One tablet by mouth three times daily as needed pain ETODOLAC [id number] Kwaku Haider MD Flintstones Complete - (2 sources) Flintstones Comp lete - as directed Orally Active 120 actuat formoterol fumarate 0.005 mg/actuat / mometasone furoate 0.2 mg/actuat metered dose inhaler (20 sources) Corticosteroid, beta2-Adrenergic Agonist Start: 04-18-2019 End: 04-14-2020 Mometasone-Formoterol (Dulera) 200-5 mcg/actuation HFA aerosol inhaler Discontinued 2 NMA INHALATION TWICE A DAY April 18, 2019 12:00am April 14, 2020 8:27am Start: 04-18-2019 End: 04-14-2020 take 1 puff(s) by inhalation twice daily Mometasone-Formoterol (Dulera) 200-5 mcg/actuation HFA aerosol inhaler Discontinued 2 PUFF INHALATION TWICE A DAY April 18, 2019 12:00am April 14, 2020 8:27am gabapentin 100 mg oral capsule (12 sources) Anti-epileptic Agent Start: 08-13-2010 End: 09-22-2016 take 2 tablets by mouth three times daily GABAPENTIN 100 MG CAPS Two tablets by mouth three times daily GABAPENTIN [id number] Kwaku Haider MD Start: 07-27-2010 NEURONTIN 300 MG CAPS one tab daily x 3d, then one tab twice daily x 1wk then one tab three times daily GABAPENTIN [id number] Kwaku Haider MD Start: 07-27-2010 NEURONTIN 300 MG CAPS one tab daily x 3d, then one tab twice daily x 1wk then one tab three times daily GABAPENTIN [id number] Kwaku Haider MD hydroCHLOROthiazide 12.5 mg oral tablet (20 sources) Thiazide Diuretic Start: 09-03-2015 End: 03-21-2023 take 1 capsule by mouth once daily Hydrochlorothiazide 12.5 MG capsule Discontinued 12.5 mg PO DAILY January 17, 2017 12:00am March 21, 2023 10:29am Start: 07-27-2010 End: 03-21-2023 take 1 tablet by mouth once daily Hydrochlorothiazide 12.5 mg tablet Discontinued 12.5 mg PO DAILY March 10, 2023 12:00am March 21, 2023 10:14am Comment on above: Take 1 capsule by [facility] once daily. hydrochlorothiazide 12.5 mg Tablet Directions: [...] spit every 4hr as needed LIDOCAINE HCL [id number] Kwaku Haider MD lisinopril 10 mg oral tablet (20 sources) Angiotensin Converting Enzyme Inhibitor Start: 2020 End: 2022 take 1 tablet by mouth once daily Lisinopril 10 mg tablet Discontinued 10 mg PO DAILY October 19, 2021 6:47pm October 25, 2022 8:33pm End: 12-06-2023 LISINOPRIL ORAL Take by mout h. 0 12/06/2023 Discontinued (Other) LISINOPRIL ORAL Take by mouth. 0 Active Comment on above: Take by mouth. meloxicam 15 mg oral tablet (20 sources) Nonsteroidal Anti-inflammatory Drug Start: End: take 1 tablet by mouth once daily Meloxicam (Mobic) 15 mg tablet Discontinued 15 mg PO DAILY February 23, 2021 12:00am March 23, 2021 9:53am methylPREDNISolone acetate 40 mg/ml injectable suspension (3 sources) Corticosteroid Start: End: Depo-Medrol (methylprednisolone acetate) 40 mg/mL suspension for injection Discontinued 40 MG INTRAARTIC ONCE June 11, 2021 10:26am June 11, 2021 11:17am naproxen 500 mg oral tablet (20 sources) Nonsteroidal Anti-inflammatory Drug Start: 019 End: take 1 tablet by mouth twice daily Naproxen 500 MG tablet Discontinued 500 mg PO TWICE A DAY June 05, 2019 12:00am November 15, 2019 3:53pm oxyCODONE hydrochloride 5 mg oral tablet (20 sources) Opioid Agonist Start: 023 End: take 1 tablet by mouth every six hours as needed for pain oxyCODONE IR (ROXICODONE) 5 mg immediate release tablet Indications: Post-op pain Take 1 tablet by mouth every 6 hours as needed for pain for up to 12 doses. 12 tablet 0 05/06/2023 12/06/2023 Discontinued (Other) Start: 03-17-2023 End: 03-21-2023 take 1 tablet by mouth every six hours as needed for pain Oxycodone 5 MG tablet Discontinued 5 mg PO EVERY 6 HOURS NEEDED as needed for severe pain 10 5 March 17, 2023 March 21, 2023 10:14am Start: 02-10-2021 End: 03-23-2021 take 5-10 mg by mouth every four hours as needed for pain Oxycodone 5 mg capsule Discontinued 5 - 10 mg PO Q4H as needed for pain 40 5 February 10, 2021 March 23, 2021 9:53am take 5 mg by mouth e very six hours as needed oxyCODONE (Roxicodone) 5 mg/5 mL solution Take 5 mL (5 mg) by mouth every 6 hours if needed. 0 Active take 5 mL by mouth e very six hours as needed oxyCODONE HCl 5 MG/5ML 5 mL as needed Orally every 6 hrs Not-Taking Comment on above: Take 1 tablet by chaim th every 6 hours as needed for pain for up to 12 doses. pantoprazole 40 mg delayed release oral tablet (20 sources) Proton Pump Inhibitor Start: 2 End: 5 take 1 tablet by mouth once daily Pantoprazole 40 mg tablet,delayed release (DR/EC) Discontinued 40 mg PO DAILY March 19, 2022 12:00am January 17, 2023 9:57am PARoxetine hydrochloride 40 mg oral tablet (20 sources) Serotonin Reuptake Inhibitor Start: 1 End: 4 PARoxetine (PAXIL) 40 mg tablet take 20 mL by mouth once daily p aroxetine HCl 10 mg/5 mL Suspension, Ordered By: Zandra Portillo MD Directions: 20 mL oral daily phenazopyridine hydrochloride 200 mg oral tablet (14 sources) Start: 08-04-2023 End: 11-23-2023 take 1 tablet by mouth three times daily as needed for muscle spasms Phenazopyridine (Pyridium) 200 mg tablet Discontinued 200 mg PO 3 TIMES DAILY NEEDED as needed for Bladder Spasms 08 05August 04, 2023 12:00am November 23, 2023 2:16pm Potassium (6 sources) POTASSIUM ORAL T roberta by mouth. 0 Active Comment on above: Take by mouth. predniSONE 20 mg oral tablet (8 sources) Corticosteroid End: 08-13-2010 take 1 tablet by mouth three times daily PREDNISONE 20 MG TABS One tablet by mouth three times daily PREDNISONE [id number] Kwaku Haider MD raNITIdine 150 mg oral tablet (8 sources) Histamine-2 Receptor Antagonist Start: 07-27-2010 End: 09-22-2016 take 1 tablet by mouth twice daily ZANTAC 150 MG TABS One tablet by mouth twice daily RANITIDINE HCL [id number] Kwaku Haider MD Resmetirom (Rezdiffra) 80 mg tablet (6 sources) Start: 09-24-2024 End: 11-20-2024 take 1 tablet by mouth once daily Resmetirom (Rezdiffra) 80 mg tablet Discontinued 80 mg PO daily September 24, 2024 1:00am November 20, 2024 12:20pm Start: 09-24-2024 End: 11-20-2024 take 1 tablet by mouth once daily Resmetirom (Rezdiffra) 80 mg tablet Discontinued 80 mg PO daily September 24, 2024 12:00am November 20, 2024 11:20am rosuvastatin 40 mg Tablet Directions: oral (2 sources) rosuvastatin 40 mg Tablet Directions: oral Additional Instructions: Rosuvastatin (Crestor) 40 mg tablet Active 40 MG PO DAILY August 07, 2020 12:00am sertraline 100 mg oral tablet (12 sources) Serotonin Reuptake Inhibitor Start: 0 End: 6 take 1 tablet by mouth once daily SERTRALINE HCL 100 MG TABS One tablet by mouth daily SERTRALINE HCL [id number] Kwaku Haider MD Start: 07-27-2010 take 1 tablet by chaim th once daily SERTRALINE HCL 50 MG TABS One tablet by mouth daily SERTRALINE HCL [id number] Kwaku Haider MD simvastatin 40 mg oral tablet (20 sources) HMG-CoA Reductase Inhibitor Start: 10-08-2019 End: 08-07-2020 take 1 tablet by mouth at bedtime Simvastatin 40 mg tablet Discontinued 40 mg PO AT BEDTIME October 08, 2019 1:00am August 07, 2020 9:57am sucralfate 1000 mg oral tablet (6 sources) Aluminum Complex Start: 10-16-2024 End: 03-08-2025 take 1 tablet by mouth three times daily Sucralfate (Carafate) 1 gram tablet Discontinued 1 g PO THREE TIMES A DAY October 16, 2024 1:00am March 08, 2025 9:04am divalproex sodium 250 mg delayed release oral tablet (8 sources) Start: 09-11-2010 End: 09-22-2016 take 1 tablet by mouth twice daily DEPAKOTE 250 MG TBEC One tablet by mouth twice daily DIVALPROEX SODIUM [id number] Lizzie Hawkins RN RN Start: 09-11-2010 End: 09-22-2016 take 1 tablet by mouth twice daily DEPAKOTE 250 MG TBEC One tablet by mouth twice daily DIVALPROEX SODIUM [id number] Lizzie Hawkins RN RN vancomycin 50 mg/ml oral solution (20 sources) Glycopeptide Antibacterial Start: 01-24-2019 End: 02-03-2019 Vancomycin (Firvanq) 50 MG/ML Soln.Recon Discontinued 125 mg PO EVERY 6 HOURS X 10 DAYS 10 January 24, 2019 12:00am February 02, 2019 12:00am February 03, 2019 12:09am Vitamin D3 (20 sources) Start: 03-10-2023 End: 03-21-2023 Vitamin D3 Discontinued 1000 U SL DAILY March 09, 2023 11:00pm March 21, 2023 9:14am Start: 03-10-2023 End: 03-21-2023 Vitamin D3 Discontinued 1000 U SL DAILY March 10, 2023 12:00am March 21, 2023 10:14am Start: 03-10-2023 Vitamin D3 Act dipika 1000 U SL DAILY March 10, 2023 12:00am Problems Active Problems Problem Classification Problem Date Documented Da te Episodic/Chronic Abdominal pain (20 sources) Abdominal pain; Translations: [Unspecified abdominal pain] Onset: 3 01-01-2023 Episodic Acquired foot deformities (9 sources) Acquired hammer toe of lesser toe of right foot; Translations: [Other hammer toe(s) (acquired), right foot] Onset: 5 10-19-2024 Chronic Acquired foot deformities (20 sources) Acquired hallux limitus of right great toe; Translations: [Other deformities of toe(s) (acquired), right foot] Episodic Adjustment disorders (20 sources) Adjustment disorder; Translations: [Adjustment disorder with other symptoms] Onset: 1 11-16-2010 Chronic Anal and rectal conditions (20 sources) Rectal pain; Translations: [Other specified diseases of anus and rectum] 03-18-2022 Episodic Anxiety disorders (8 sources) Anxiety disorder; Translations: [Anxiety] Onset: 6 09-22-2016 Chronic Asthma (20 sources) Asthma; Translations: [Unspecified asthma, uncomplicated] Onset: 5 Resolved: 3 09-22-2016 Chronic Biliary tract disease (7 sources) Cholecystitis; Translations: [Cholecystitis, unspecified] Onset: 5 02-22-2025 Episodic Cardiac dysrhythmias (20 sources) Palpitations - rapid; Translations: [Palpitations] 03-18-2022 Episodic Chronic kidney disease (20 sources) Chronic kidney disease stage 3; Translations: [Stage 3 chronic kidney disease] Onset: 3 09-07-2021 Chronic Chronic kidney disease (2 sources) Chronic kidney disease; Translations: [Chronic kidney disease, stage 3 unspecified] Onset: 2 Resolved: 2 Complications of surgical procedures or medical care (20 sources) Postablative hypothyroidism; Translations: [Postprocedural hypothyroidism] Onset: 2 Chronic Coronary atherosclerosis and other heart disease (20 sources) Calcification of coronary artery; Translations: [Atherosclerotic heart disease of hopi coronary artery without angina pectoris] Chronic Comment on above: calcium score 100 pe r CCTA 03/2019 Deficiency and other anemia (2 sources) Anemia, unspecified Episodic Diseases of white blood cells (4 sources) Leukocytosis; Translations: [Elevated white blood cell count, unspecified] Onset: 0 08-13-2010 Chronic Disorders of lipid metabolism (20 sources) Hyperlipidemia; Translations: [Hyperlipidemia, unspecified] Onset: 5 Resolved: 2 09-22-2016 Chronic E Codes: Fall (20 sources) Fall; Translations: [Unspecified fall, initial encounter] 11-19-2022 Episodic Esophageal disorders (20 sources) Esophageal reflux finding; Translations: [Gastro-esophageal reflux disease without esophagitis] Onset: 2 Resolved: 2 Chronic Essential hypertension (20 sources) Hypertensive disorder; Translations: [Benign essential hypertension] Onset: 0 Resolved: 2 09-22-2016 Chronic Comment on above: NO MEDS FOR 2YRS Gastrointestinal hemorrhage (20 sources) Gastrointestinal hemorrhage; Translations: [Hemorrhage of anus and rectum] 03-18-2022 Episodic Gout and other crystal arthropathies (1 source) Gout, unspecified; Translations: [Gout, unspecified] Onset: 2 Chronic Hepatitis (2 sources) Nonalcoholic steatohepatitis; Translations: [Nonalcoholic steatohepatitis (PAK)] Onset: 4 12-06-2023 Chronic Hypertension with complications and secondary hypertension (1 source) Hypertensive chronic kidney disease with stage 1 through stage 4 chronic kidney disease, or unspecified chronic kidney disease; Translations: [Hypertensive chronic kidney disease w stg 1-4/unsp chr kdny] Onset: 2 Chronic Immunizations and screening for infectious disease (2 sources) Contact with and (suspected) exposure to other viral communicable diseases; Translations: [Contact w and exposure to oth viral communicable diseases] Onset: 2 Episodic Inflammation; infection of eye (except that caused by tuberculosis or sexually transmitteddisease) (20 sources) Cellulitis of eyelid; Translations: [Abscess of left upper eyelid] 06-05-2018 Episodic Mood disorders (20 sources) Recurrent major depression; Translations: [Depressive disorder] Onset: 0 07-27-2010 Chronic Mood disorders (1 source) Mood disorders; Translations: [Depression, unspecified] Onset: 2 Nutritional deficiencies (20 sources) Vitamin D deficiency; Translations: [Vitamin D deficiency, unspecified] Onset: 2 Resolved: 2 09-22-2016 Chronic Nutritional deficiencies (16 sources) Thiamine deficiency, unspecified; Translations: [Deficiency of other specified B group vitamins] Onset: 2 Resolved: 2 Episodic Osteoarthritis (20 sources) Arthritis of joint of toe; Translations: [Primary osteoarthritis, unspecified ankle and foot] Onset: 2 Resolved: 2 Chronic Comment on above: 03/2023 Other aftercare (20 sources) Follow-up status; Translations: [Encounter for other orthopedic aftercare] 03-18-2022 Episodic Other aftercare (3 sources) Encounter for follow-up examination after completed treatment for conditions other than malignant neoplasm Episodic Other aftercare (1 source) alf (current) use of aspirin; Translations: [[employer] (current) use of aspirin] Onset: 2 Episodic Other connective tissue disease (20 sources) Foot pain; Translations: [Pain in right foot] 03-18-2022 Episodic Other connective tissue disease (20 sources) Metatarsalgia; Translations: [Metatarsalgia, right foot] 04-01-2023 Episodic Other connective tissue disease (7 sources) Metatarsalgia, right foot; Translations: [Enthesopathy of ankle and tarsus, unspecified] 04-01-2023 Episodic Other connective tissue disease (7 sources) Pain in right foot; Translations: [Pain in limb] 04-01-2023 Episodic Other connective tissue disease (17 sources) Chronic pain of right foot; Translations: [Pain in right toe(s)] 10-19-2024 Episodic Other diseases of kidney and ureters (1 source) Disorder of kidney and ureter, unspecified Episodic Other endocrine disorders (12 sources) Hyperparathyroidism; Translations: [Hyperparathyroidism, unspecified] Onset: 3 12-06-2023 Chronic Other endocrine disorders (2 sources) Hyperparathyroidism, unspecified Chronic Other female genital disorders (20 sources) Mass of uterine adnexa; Translations: [Other specified conditions associated with female genital organs and menstrual cycle] 01-01-2023 Episodic Other gastrointestinal disorders (10 sources) Malabsorption syndrome; Translations: [Intestinal malabsorption, unspecified] Chronic Other gastrointestinal disorders (12 sources) Abnormal intestinal absorption; Translations: [Intestinal malabsorption, unspecified] Onset: 3 12-06-2023 Chronic Other gastrointestinal disorders (4 sources) Intestinal malabsorption, unspecified Chronic Other gastrointestinal disorders (1 source) Intestinal malabsorption; Translations: [Intestinal malabsorption, unspecified] Onset: 3 07-01-2023 Chronic Other gastrointestinal disorders (4 sources) Bariatric surgery status Episodic Other gastrointestinal disorders (2 sources) Peritoneal adhesion; Translations: [Peritoneal adhesions (postprocedural) (postinfection)] Episodic Other gastrointestinal disorders (1 source) Adhesion of omentum; Translations: [Peritoneal adhesions (postprocedural) (postinfection)] Episodic Other gastrointestinal disorders (17 sources) History of bypass of stomach; Translations: [Bariatric surgery status] Onset: 4 07-16-2023 Episodic Other gastrointestinal disorders (12 sources) Diarrhea; Translations: [Diarrhea, unspecified] 10-13-2024 Episodic Other gastrointestinal disorders (2 sources) Diarrhea, unspecified; Translations: [Diarrhea, unspecified] Onset: 5 Episodic Other hematologic conditions (18 sources) Alpha-fetoprotein raised; Translations: [Abnormality of alphafetoprotein] 07-02-2024 Episodic Other injuries and conditions due to external causes (19 sources) Injury of knee; Translations: [Unspecified injury of right lower leg, initial encounter] 05-07-2022 Episodic Other injuries and conditions due to external causes (15 sources) Injury of right knee; Translations: [Unspecified injury of right lower leg, initial encounter] 05-07-2022 Episodic Other injuries and conditions due to external causes (1 source) Other injury of unspecified body region, initial encounter; Translations: [Other injury of unspecified body region, initial encounter] Onset: 5 Episodic Other liver diseases (20 sources) Fatty (change of) liver, not elsewhere classified; Translations: [Nonalcoholic fatty liver disease] Onset: 2 11-23-2023 Chronic Other liver diseases (12 sources) High lipase level in serum; Translations: [Abnormal levels of other serum enzymes] 10-13-2024 Episodic Other liver diseases (2 sources) Abnormal levels of other serum enzymes; Translations: [Abnormal levels of other serum enzymes] Onset: 5 Episodic Other lower respiratory disease (20 sources) Dyspnea; Translations: [Shortness of breath] 03-18-2022 Episodic Other nervous system disorders (1 source) Other chronic pain; Translations: [Other chronic pain] Onset: 5 Chronic Other nervous system disorders (20 sources) Acute postoperative pain; Translations: [Other acute postprocedural pain] 03-18-2022 Episodic Other nervous system disorders (20 sources) Postoperative pain ; Translations: [Other acute postprocedural pain] 03-17-2023 Episodic Other nervous system disorders (9 sources) Tremor; Translations: [Tremor, unspecified] 11-23-2023 Episodic Other nervous system disorders (3 sources) Tremor, unspecified; Translations: [Abnormal involuntary movements] 11-23-2023 Episodic Other non-traumatic joint disorders (20 sources) Pain in right knee; Translations: [Right knee pain] Episodic Other non-traumatic joint disorders (20 sources) Sesamoiditis; Translations: [Other specified joint disorders, right ankle and foot] 04-01-2023 Episodic Other non-traumatic joint disorders (7 sources) Other specified joint disorders, right ankle and foot; Translations: [Other disorders of bone and cartilage] 04-01-2023 Episodic Other nutritional; endocrine; and metabolic disorders (1 source) Overweight; Translations: [Overweight] Onset: 7 02-10-2017 Chronic Other nutritional; endocrine; and metabolic disorders (20 sources) Morbid obesity; Translations: [Morbid (severe) obesity due to excess calories] Onset: 0 07-27-2010 Chronic Other nutritional; endocrine; and metabolic disorders (1 source) Body mass index (BMI) 40.0-44.9, adult; Translations: [Body mass index (BMI) 40.0-44.9, adult] Onset: 7 02-10-2017 Chronic Other nutritional; endocrine; and metabolic disorders (20 sources) Obesity; Translations: [Other obesity due to excess calories] Onset: 3 09-20-2022 Chronic Other nutritional; endocrine; and metabolic disorders (9 sources) Other obesity due to excess calories; Translations: [Other obesity due to excess calories] Onset: 2 Resolved: 2 Chronic Other nutritional; endocrine; and metabolic disorders (5 sources) Morbid (severe) obesity due to excess calories; Translations: [Morbid (severe) obesity due to excess calories] Onset: 2 Resolved: 2 Chronic Other nutritional; endocrine; and metabolic disorders (3 sources) Obesity, unspecified; Translations: [Obesity, unspecified] Chronic Other nutritional; endocrine; and metabolic disorders (20 sources) Obese class II; Translations: [Body mass index (BMI) 38.0-38.9, adult] Onset: 3 07-01-2023 Chronic Other nutritional; endocrine; and metabolic disorders (2 sources) Body mass index (BMI) 38.0-38.9, adult; Translations: [Body mass index [BMI] 38.0-38.9, adult] Onset: 2 Chronic Other screening for suspected conditions (not mental disorders or infectious disease) (11 sources) Mammography abnormal; Translations: [Other abnormal and inconclusive findings on diagnostic imaging of breast] Onset: 2 Resolved: 2 Episodic Ovarian cyst (20 sources) Cyst of left ovary; Translations: [Unspecified ovarian cyst, left side] Onset: 3 Episodic Residual codes; unclassified (20 sources) Obstructive sleep apnea syndrome; Translations: [Obstructive sleep apnea (adult) (pediatric)] Onset: 3 09-20-2022 Chronic Residual codes; unclassified (20 sources) Sleep apnea; Translations: [Sleep apnea, unspecified] Chronic Residual codes; unclassified (8 sources) Sleep apnea, unspecified Onset: 2 Resolved: 2 Chronic Residual codes; unclassified (6 sources) Obstructive sleep apnea (adult) (pediatric); Translations: [Obstructive sleep apnea (adult)(pediatric)] Onset: 2 Resolved: 2 Chronic Residual codes; unclassified (3 sources) Other specified postprocedural states; Translations: [Other postprocedural status] Episodic Spondylosis; intervertebral disc disorders; other back problems (20 sources) Lumbar radiculopathy; Translations: [Low back pain] Onset: 0 07-27-2010 Episodic Sprains and strains (20 sources) Sprain of ligament of finger; Translations: [Unspecified sprain of unspecified finger, initial encounter] 11-19-2022 Episodic Superficial injury; contusion (20 sources) Contusion of knee; Translations: [Contusion of unspecified knee, initial encounter] Episodic Thyroid disorders (20 sources) Hypothyroidism; Translations: [Hypothyroidism, unspecified] Onset: 0 Resolved: 5 07-27-2010 Chronic Unclassified (1 source) Encounter for screening for COVID-19; Translations: [Encounter for screening for COVID-19] Onset: Urinary tract infections (20 sources) Urinary tract infectious disease; Translations: [Urinary tract infection, site not specified] 01-01-2023 Episodic Viral infection (18 sources) Disease caused by 2019-nCoV; Translations: [COVID-19] 10-06-2023 Episodic Past or Other Problems Problem Classification Problem Date Documented Da te Episodic/Chronic Administrative/social admission (10 sources) Marital conflict; Translations: [Problems in relationship with spouse or partner] Onset: 08-02-2013 Resolved: 05-13-2015 05-13-2015 Episodic Calculus of urinary tract (20 sources) Ureteric stone; Translations: [Calculus of ureter] Onset: 10-18-2024 07-24-2023 Episodic Diabetes mellitus without complication (20 sources) Disorder of glucose metabolism; Translations: [Other abnormal glucose] Onset: 05-13-2015 Resolved: 05-03-2023 05-13-2015 Episodic Disorders of teeth and jaw (20 sources) Dental caries; Translations: [Dental caries, unspecified] Onset: 06-10-2015 06-10-2015 Episodic Intestinal obstruction without hernia (9 sources) Intestinal obstruction; Translations: [Ileus, unspecified] Onset: 10-15-2024 10-13-2024 Episodic Nausea and vomiting (9 sources) Nausea and vomiting; Translations: [Nausea with vomiting, unspecified] Onset: 10-15-2024 10-22-2024 Episodic Nonspecific chest pain (20 sources) Chest pain; Translations: [Chest pain, unspecified] Onset: 04-18-2024 Episodic Other complications of (10 sources) Endocrine, nutritional and metabolic diseases complicating , unspecified trimester; Translations: [Thyroid dysfunction of mother, unspecified as to episode of care or not applicable] Onset: 02-06-2007 Resolved: 12-16-2010 12-16-2010 Episodic Other complications of (10 sources) High risk ; Translations: [Supervision of high risk , unspecified, unspecified trimester] Onset: 04-06-2007 Resolved: 12-16-2010 12-16-2010 Episodic Other connective tissue disease (4 sources) Swelling of lower limb; Translations: [Localized swelling, mass and lump, right lower limb] Onset: 09-22-2016 09-22-2016 Episodic Other connective tissue disease (1 source) Pain in right toe(s); Translations: [Pain in right toe(s)] Onset: 12-06-2024 Episodic Other hematologic conditions (2 sources) Abnormality of alphafetoprotein; Translations: [Elevated AFP] Onset: 07-13-2024 Episodic Other nutritional; endocrine; and metabolic disorders (20 sources) Body mass index 30+ - obesity; Translations: [Overweight] Onset: 07-27-2010 Resolved: 05-03-2023 09-22-2016 Chronic Other and delivery including normal (10 sources) Normal ; Translations: [Encounter for supervision of other normal , unspecified trimester] Onset: 09-27-2006 Resolved: 08-26-2008 08-26-2008 Episodic Other upper respiratory disease (10 sources) Pain in throat; Translations: [Pain in throat] Onset: 05-13-2015 Resolved: 06-10-2015 06-10-2015 Episodic Other upper respiratory infections (20 sources) Acute maxillary sinusitis; Translations: [Upper respiratory infection] Onset: 08-28-2010 Resolved: 09-11-2010 09-11-2010 Episodic Residual codes; unclassified (20 sources) Family history of diabetes mellitus; Translations: [Family history of diabetes mellitus] Onset: 05-13-2015 10-05-2021 Episodic Residual codes; unclassified (1 source) Chills (without fever); Translations: [Chills (without fever)] Onset: 11-30-2024 Episodic Thyroid disorders (7 sources) Abnormal results of thyroid function studies; Translations: [Disorder of thyroid, unspecified] Onset: 08-21-2010 Resolved: 02-02-2022 08-21-2010 Episodic Unclassified (4 sources) Foreign body; Translations: [Injury, unspecified] Onset: 09-22-2016 09-22-2016 Episodic Unclassified (1 source) Encounter for screening for COVID-19; Translations: [Encounter for screening for COVID-19] Onset: 09-17-2022 Results Test Name Value Interpretation Reference Range Facility MR/PATLeticiaANEon 03-13-2025 MR/PAT.KERRI Normal [facility] Visit [facility] 03-08 [facility] 02-27-2025 Abdomen Limited Normal [facility] GALINA + Protein Elect, Serumon 02-26-2025 Albumin [Mass/Vol] 3.9 g/dL Normal 2.9-4.4 [facility] Comment on above: Order Comment: N Performed By: #### L 501.6710, L500.4050, L100.0100, L501.2400, L501.5200, L503.0106, L501.2450, L300.3900, L504.2610, L101.9900, L3100.3425, L501.2300 ####[facility] [address] [place], [address] Albumin/Globulin [Mass ratio] 1.1 {ratio} Normal 0.7-1.7 [facility] Comment on above: Order Comment: N Performed By: #### L 501.6710, L500.4050, L100.0100, L501.2400, L501.5200, L503.0106, L501.2450, L300.3900, L504.2610, L101.9900, L3100.3425, L501.2300 ####[facility] [address] [place], [address] [id number] 0.2 g/dL Normal 0.0-0.4 [facility] Comment on above: Order Comment: N Performed By: #### L 501.6710, L500.4050, L100.0100, L501.2400, L501.5200, L503.0106, L501.2450, L300.3900, L504.2610, L101.9900, L3100.3425, L501.2300 ####[facility] [address] [place], [address] TUEKC-8-LJQM 0.6 g/dL Normal 0.4-1.0 [facility] Comment on above: Order Comment: N Performed By: #### L 501.6710, L500.4050, L100.0100, L501.2400, L501.5200, L503.0106, L501.2450, L300.3900, L504.2610, L101.9900, L3100.3425, L501.2300 ####[facility] [address] [place], [place], [phone]) BETA GLOBULIN 1.2 g/dL Normal 0.7-1.3 [facility] Comment on above: Order Comment: N Performed By: #### L 501.6710, L500.4050, L100.0100, L501.2400, L501.5200, L503.0106, L501.2450, L300.3900, L504.2610, L101.9900, L3100.3425, L501.2300 ####[facility] [address] [place], [place], [phone]) GAMMA GLOBULIN 1.8 g/dL Normal 0.4-1.8 [facility] Comment on above: Order Comment: N Performed By: #### L 501.6710, L500.4050, L100.0100, L501.2400, L501.5200, L503.0106, L501.2450, L300.3900, L504.2610, L101.9900, L3100.3425, L501.2300 ####[facility] [address] [place], [place], [phone]) Globulin (S) [Mass/Vol] 3.8 g/dL Normal 2.2-3.9 [facility] Comment on above: Order Comment: N Performed By: #### L 501.6710, L500.4050, L100.0100, L501.2400, L501.5200, L503.0106, L501.2450, L300.3900, L504.2610, L101.9900, L3100.3425, L501.2300 ####[facility] [address] [place], [address] GALINA RESULT,S Comment Normal . [facility] Comment on above: Order Comment: N Result Comment: No m onoclonality detected. Performed By: #### L 501.6710, L500.4050, L100.0100, L501.2400, L501.5200, L503.0106, L501.2450, L300.3900, L504.2610, L101.9900, L3100.3425, L501.2300 ####[facility] [address] [place], [address] IMMUNOGLOB A QN 439 mg/dL High 87-352 [facility] Comment on above: Order Comment: N Performed By: #### L 501.6710, L500.4050, L100.0100, L501.2400, L501.5200, L503.0106, L501.2450, L300.3900, L504.2610, L101.9900, L3100.3425, L501.2300 ####[facility] [address] [place], [address] IMMUNOGLOB G QN 1571 mg/dL Normal 586-1602 [facility] Comment on above: Order Comment: N Performed By: #### L 501.6710, L500.4050, L100.0100, L501.2400, L501.5200, L503.0106, L501.2450, L300.3900, L504.2610, L101.9900, L3100.3425, L501.2300 ####[facility] [address] [place], [address] IMMUNOGLOB M QN 314 mg/dL High 26-217 [facility] Comment on above: Order Comment: N Performed By: #### L 501.6710, L500.4050, L100.0100, L501.2400, L501.5200, L503.0106, L501.2450, L300.3900, L504.2610, L101.9900, L3100.3425, L501.2300 ####[facility] [address] [place], [address] M-Jayro Not Observed Normal Not Observed [facility] Comment on above: Order Comment: N Performed By: #### L 501.6710, L500.4050, L100.0100, L501.2400, L501.5200, L503.0106, L501.2450, L300.3900, L504.2610, L101.9900, L3100.3425, L501.2300 ####[facility] [address] [place], [address] NOTE: Comment Normal . [facility] Comment on above: Order Comment: N Result Comment: Prot ein electrophoresis scan will follow via computer,mail, or arc cutter delivery.Performed at: [facility] [id number] Director: Marvin Lara PhD, Phone: [phone] Performed By: #### L 501.6710, L500.4050, L100.0100, L501.2400, L501.5200, L503.0106, L501.2450, L300.3900, L504.2610, L101.9900, L3100.3425, L501.2300 ####[facility] [address] [place], [address] Protein [Mass/Vol] 7.7 g/dL Normal 6.0-8.5 [facility] Comment on above: Order Comment: N Performed By: #### L 501.6710, L500.4050, L100.0100, L501.2400, L501.5200, L503.0106, L501.2450, L300.3900, L504.2610, L101.9900, L3100.3425, L501.2300 ####[facility] [address] [place], [place], [phone] Abdomen Single Viewon 2024 Abdomen Single View Normal [facility] Absolute lymphocyte countOrd ered By: Kristofer An on 02-21-2025 Lymphocytes Auto (Unsp spec) [#/Vol] 3.21 10*3/uL 0.83-4.51 [facility] Absolute neutrophil countOrd ered By: Kristoferandrae An on 02-21-2025 Neutrophils (Bld) [#/Vol] 3.7 10*3/uL 2.0-7.7 [facility] Albumin Elph [Mass/Vol]Order ed By: Kristofer An on 02-21-2025 Albumin [Mass/Vol] 3.9 g/dL 2.9-4.4 [facility] Amylaseon 02-21-2025 TAMI 88 U/L Normal 28-100 [facility] Comment on above: Performed By: #### L 501.6710, L500.4050, L100.0100, L501.2400, L501.5200, L503.0106, L501.2450, L300.3900, L504.2610, L101.9900, L3100.3425, L501.2300 ####[facility] [address] [place], [place], [phone] Anion gap in Serum or Plasma Ordered By: Kristofer Nataliya on 02-21-2025 Anion gap [Moles/Vol] 11 mmol/L 5- [facility] Automated lymphocyte count a s percentage of total leukocytesOrdered By: Kristofer An on 02-21-2025 Lymphocytes/100 WBC Auto (Unsp spec) 42.6 % High 19-41 [facility] BUN/creatinine ratioOrdered By: Kristofer Nataliya on 02-21-2025 Urea nitrogen/Creatinine [Mass ratio] 15.7 mg/mg 10-20 [facility] Basophil percentageOrdered B y: Kristofer An on 02-21-2025 Basophils/100 WBC (Bld) 1.2 % High 0-1 [facility] Bilirubin, totalOrdered By: Kristofer An on 02-21-2025 Bilirubin [Mass/Vol] 1.15 mg/dL 0.00-1.30 [facility] CBC W/Diff, Automatedon 05- Absolute Lymph 3.21 X10 3/uL Normal 0.83-4.51 [facility] Comment on above: Performed By: #### L 501.6710, L500.4050, L100.0100, L501.2400, L501.5200, L503.0106, L501.2450, L300.3900, L504.2610, L101.9900, L3100.3425, L501.2300 ####[facility] [address] [place], [place], [phone]) Absolute Neut 3.7 X10 3/uL Normal 2.0-7.7 [facility] Comment on above: Performed By: #### L 501.6710, L500.4050, L100.0100, L501.2400, L501.5200, L503.0106, L501.2450, L300.3900, L504.2610, L101.9900, L3100.3425, L501.2300 ####[facility] [address] [place], [phone](335) Basophils/100 WBC (Bld) 1.2 % High 0-1 [facility] Comment on above: Performed By: #### L 501.6710, L500.4050, L100.0100, L501.2400, L501.5200, L503.0106, L501.2450, L300.3900, L504.2610, L101.9900, L3100.3425, L501.2300 ####[facility] [address] [place], [phone] Eosinophils/100 WBC (Bld) 1.5 % Normal 0-5 [facility] Comment on above: Performed By: #### L 501.6710, L500.4050, L100.0100, L501.2400, L501.5200, L503.0106, L501.2450, L300.3900, L504.2610, L101.9900, L3100.3425, L501.2300 ####[facility] [address] [place], [place], [phone](736) Erythrocyte distribution width (RBC) [Ratio] 14.0 % Normal 11.6-14.6 [facility] Comment on above: Performed By: #### L 501.6710, L500.4050, L100.0100, L501.2400, L501.5200, L503.0106, L501.2450, L300.3900, L504.2610, L101.9900, L3100.3425, L501.2300 ####[facility] [address] [place], [address](943) Hematocrit (Bld) [Volume fraction] 41.2 % Normal 37-47 [facility] Comment on above: Performed By: #### L 501.6710, L500.4050, L100.0100, L501.2400, L501.5200, L503.0106, L501.2450, L300.3900, L504.2610, L101.9900, L3100.3425, L501.2300 ####[facility] [address] [place], [place], [phone] Hemoglobin (Bld) [Mass/Vol] 13.8 g/dL Normal 12.0-15.0 [facility] Comment on above: Performed By: #### L 501.6710, L500.4050, L100.0100, L501.2400, L501.5200, L503.0106, L501.2450, L300.3900, L504.2610, L101.9900, L3100.3425, L501.2300 ####[facility] [address] [place], [phone](571) IG% 0.100 Normal 0.0-0.9 [facility] Comment on above: Result Comment: IG% - Immature Granulocytes (promyelocytes, myelocytes andmetamyelocytes) > 1% indicates that a LEFT SHIFT is Present. Performed By: #### L 501.6710, L500.4050, L100.0100, L501.2400, L501.5200, L503.0106, L501.2450, L300.3900, L504.2610, L101.9900, L3100.3425, L501.2300 ####[facility] [address] [place], [address] Lymphocytes/100 WBC (Bld) 42.6 % High 19-41 [facility] Comment on above: Performed By: #### L 501.6710, L500.4050, L100.0100, L501.2400, L501.5200, L503.0106, L501.2450, L300.3900, L504.2610, L101.9900, L3100.3425, L501.2300 ####[facility] [address] [place], [address] MCH (RBC) [Entitic mass] 30.9 pg Normal 27.0-32.0 [facility] Comment on above: Performed By: #### L 501.6710, L500.4050, L100.0100, L501.2400, L501.5200, L503.0106, L501.2450, L300.3900, L504.2610, L101.9900, L3100.3425, L501.2300 ####[facility] [address] [place], [address] MCHC (RBC) [Mass/Vol] 33.5 g/dL Normal 32-36 [facility] Comment on above: Performed By: #### L 501.6710, L500.4050, L100.0100, L501.2400, L501.5200, L503.0106, L501.2450, L300.3900, L504.2610, L101.9900, L3100.3425, L501.2300 ####[facility] [address] [place], [address] MCV (RBC) [Entitic vol] 92.2 fL Normal 81-99 [facility] Comment on above: Performed By: #### L 501.6710, L500.4050, L100.0100, L501.2400, L501.5200, L503.0106, L501.2450, L300.3900, L504.2610, L101.9900, L3100.3425, L501.2300 ####[facility] [address] [place], [address] Monocytes/100 WBC (Bld) 5.8 % Normal 0-10 [facility] Comment on above: Performed By: #### L 501.6710, L500.4050, L100.0100, L501.2400, L501.5200, L503.0106, L501.2450, L300.3900, L504.2610, L101.9900, L3100.3425, L501.2300 ####[facility] [address] [place], [address] Neutrophils/100 WBC (Bld) 48.8 % Normal 47-70 [facility] Comment on above: Performed By: #### L 501.6710, L500.4050, L100.0100, L501.2400, L501.5200, L503.0106, L501.2450, L300.3900, L504.2610, L101.9900, L3100.3425, L501.2300 ####[facility] [address] [place], [address] Nucleated RBC (Bld) [#/Vol] 0 10*3/uL Normal 0-5 [facility] Comment on above: Performed By: #### L 501.6710, L500.4050, L100.0100, L501.2400, L501.5200, L503.0106, L501.2450, L300.3900, L504.2610, L101.9900, L3100.3425, L501.2300 ####[facility] [address] [place], [address] Platelet mean volume (Bld) [Entitic vol] 10.6 fL Normal 6.2-12.0 [facility] Comment on above: Performed By: #### L 501.6710, L500.4050, L100.0100, L501.2400, L501.5200, L503.0106, L501.2450, L300.3900, L504.2610, L101.9900, L3100.3425, L501.2300 ####[facility] [address] [place], [address] Platelets (Bld) [#/Vol] 244 10*3/uL Normal 150-450 [facility] Comment on above: Performed By: #### L 501.6710, L500.4050, L100.0100, L501.2400, L501.5200, L503.0106, L501.2450, L300.3900, L504.2610, L101.9900, L3100.3425, L501.2300 ####[facility] [address] [place], [address] RBC (Bld) [#/Vol] 4.47 10*6/uL Normal 4.2-5.4 [facility] Comment on above: Performed By: #### L 501.6710, L500.4050, L100.0100, L501.2400, L501.5200, L503.0106, L501.2450, L300.3900, L504.2610, L101.9900, L3100.3425, L501.2300 ####[facility] [address] [place], [address] RDW SD 47.9 fl High 35.1-43.9 [facility] Comment on above: Performed By: #### L 501.6710, L500.4050, L100.0100, L501.2400, L501.5200, L503.0106, L501.2450, L300.3900, L504.2610, L101.9900, L3100.3425, L501.2300 ####[facility] [address] [place], [place], [phone] WBC (Bld) [#/Vol] 7.5 10*3/uL Normal 4.4-11.0 [facility] Comment on above: Performed By: #### L 501.6710, L500.4050, L100.0100, L501.2400, L501.5200, L503.0106, L501.2450, L300.3900, L504.2610, L101.9900, L3100.3425, L501.2300 ####[facility] [address] [place], [address] CRPon 02-21-2025 C-REACTIVE PROT < 3.00 Normal 0.0-3.0 [facility] Comment on above: Performed By: #### L 501.6710, L500.4050, L100.0100, L501.2400, L501.5200, L503.0106, L501.2450, L300.3900, L504.2610, L101.9900, L3100.3425, L501.2300 ####[facility] [address] [place], [address] Carbon dioxide, total [Moles /volume] in Central venous bloodOrdered By: Kristofer An on 02-21-2025 CO2 [Moles/Vol] 25.0 mmol/L 21.0-32.0 [facility] Chloride assayOrdered By: Ra mayra An on 02-21-2025 Chloride [Moles/Vol] 101 mmol/L 98-108 [facility] Comprehensive Metabolic Prof ilon 02-21-2025 Albumin [Mass/Vol] 4.4 g/dL Normal 3.5-5.0 [facility] Comment on above: Performed By: #### L 501.6710, L500.4050, L100.0100, L501.2400, L501.5200, L503.0106, L501.2450, L300.3900, L504.2610, L101.9900, L3100.3425, L501.2300 ####[facility] [address] [place], [place], [phone] Albumin/Globulin [Mass ratio] 1.2 {ratio} Normal 0.9-2.4 [facility] Comment on above: Performed By: #### L 501.6710, L500.4050, L100.0100, L501.2400, L501.5200, L503.0106, L501.2450, L300.3900, L504.2610, L101.9900, L3100.3425, L501.2300 ####[facility] [address] [place], [place], [phone] ALK PHOS 72 U/L Normal 35-104 [facility] Comment on above: Performed By: #### L 501.6710, L500.4050, L100.0100, L501.2400, L501.5200, L503.0106, L501.2450, L300.3900, L504.2610, L101.9900, L3100.3425, L501.2300 ####[facility] [address] [place], [address] ALT [Catalytic activity/Vol] 46 U/L High <=34 [facility] Comment on above: Performed By: #### L 501.6710, L500.4050, L100.0100, L501.2400, L501.5200, L503.0106, L501.2450, L300.3900, L504.2610, L101.9900, L3100.3425, L501.2300 ####[facility] [address] [place], [place], [phone]) AST [Catalytic activity/Vol] 63 U/L High <=31 [facility] Comment on above: Performed By: #### L 501.6710, L500.4050, L100.0100, L501.2400, L501.5200, L503.0106, L501.2450, L300.3900, L504.2610, L101.9900, L3100.3425, L501.2300 ####[facility] [address] [place], [place], [phone](020) Bilirubin [Mass/Vol] 1.15 mg/dL Normal 0.00-1.30 [facility] Comment on above: Performed By: #### L 501.6710, L500.4050, L100.0100, L501.2400, L501.5200, L503.0106, L501.2450, L300.3900, L504.2610, L101.9900, L3100.3425, L501.2300 ####[facility] [address] [place], [place], [phone] BUN/CRE 15.7 RATIO Normal 10-20 [facility] Comment on above: Performed By: #### L 501.6710, L500.4050, L100.0100, L501.2400, L501.5200, L503.0106, L501.2450, L300.3900, L504.2610, L101.9900, L3100.3425, L501.2300 ####[facility] [address] [place], [place], [phone] Calcium [Mass/Vol] 9.2 mg/dL Normal 7.6-11.0 [facility] Comment on above: Performed By: #### L 501.6710, L500.4050, L100.0100, L501.2400, L501.5200, L503.0106, L501.2450, L300.3900, L504.2610, L101.9900, L3100.3425, L501.2300 ####[facility] [address] [place], [place], [phone](495) Chloride [Moles/Vol] 101 mmol/L Normal 98-108 [facility] Comment on above: Performed By: #### L 501.6710, L500.4050, L100.0100, L501.2400, L501.5200, L503.0106, L501.2450, L300.3900, L504.2610, L101.9900, L3100.3425, L501.2300 ####[facility] [address] [place], [place], [phone] CO2 [Moles/Vol] 25.0 mmol/L Normal 21.0-32.0 [facility] Comment on above: Performed By: #### L 501.6710, L500.4050, L100.0100, L501.2400, L501.5200, L503.0106, L501.2450, L300.3900, L504.2610, L101.9900, L3100.3425, L501.2300 ####[facility] [address] [place], [place], [phone] Creatinine [Mass/Vol] 1.08 mg/dL Normal 0.70-1.20 [facility] Comment on above: Performed By: #### L 501.6710, L500.4050, L100.0100, L501.2400, L501.5200, L503.0106, L501.2450, L300.3900, L504.2610, L101.9900, L3100.3425, L501.2300 ####[facility] [address] [place], [place], [phone] GAP 11 Normal 5-15 [facility] Comment on above: Performed By: #### L 501.6710, L500.4050, L100.0100, L501.2400, L501.5200, L503.0106, L501.2450, L300.3900, L504.2610, L101.9900, L3100.3425, L501.2300 ####[facility] [address] [place], [place], [phone](502) GFR/1.73 sq M.predicted among non-blacks MDRD (S/P/Bld) [Vol rate/Area] 64 mL/min/{1.73_m2} Normal >60 [facility] Comment on above: Result Comment: mL/m in/1.73m2 CKD-EPI Creatinine Equation (2020) Performed By: #### L 501.6710, L500.4050, L100.0100, L501.2400, L501.5200, L503.0106, L501.2450, L300.3900, L504.2610, L101.9900, L3100.3425, L501.2300 ####[facility] [address] [place], [place], [phone]) Globulin (S) [Mass/Vol] 3.6 g/dL Normal 2.2-4.2 [facility] Comment on above: Performed By: #### L 501.6710, L500.4050, L100.0100, L501.2400, L501.5200, L503.0106, L501.2450, L300.3900, L504.2610, L101.9900, L3100.3425, L501.2300 ####[facility] [address] [place], [place], [phone](277) Glucose [Mass/Vol] 83 mg/dL Normal 70-99 [facility] Comment on above: Performed By: #### L 501.6710, L500.4050, L100.0100, L501.2400, L501.5200, L503.0106, L501.2450, L300.3900, L504.2610, L101.9900, L3100.3425, L501.2300 ####[facility] [address] [place], [place], [phone]) Potassium [Moles/Vol] 4.7 mmol/L Normal 3.3-5.1 [facility] Comment on above: Performed By: #### L 501.6710, L500.4050, L100.0100, L501.2400, L501.5200, L503.0106, L501.2450, L300.3900, L504.2610, L101.9900, L3100.3425, L501.2300 ####[facility] [address] [place], [place], [phone] Sodium [Moles/Vol] 137 mmol/L Normal 133-145 [facility] Comment on above: Performed By: #### L 501.6710, L500.4050, L100.0100, L501.2400, L501.5200, L503.0106, L501.2450, L300.3900, L504.2610, L101.9900, L3100.3425, L501.2300 ####[facility] [address] [place], [place], [phone] T PROT 8.0 g/dL Normal 5.9-8.4 [facility] Comment on above: Performed By: #### L 501.6710, L500.4050, L100.0100, L501.2400, L501.5200, L503.0106, L501.2450, L300.3900, L504.2610, L101.9900, L3100.3425, L501.2300 ####[facility] [address] [place], [place], [phone] Urea nitrogen [Mass/Vol] 17 mg/dL Normal 4-19 [facility] Comment on above: Performed By: #### L 501.6710, L500.4050, L100.0100, L501.2400, L501.5200, L503.0106, L501.2450, L300.3900, L504.2610, L101.9900, L3100.3425, L501.2300 ####[facility] [address] [place], [address] Eosinophil percentageOrdered By: Kristofer An on 02-21-2025 Eosinophils/100 WBC (Bld) 1.5 % 0-5 [facility] Erythrocyte Sed Rateon 02-21 SED RATE 15 mm/hr Normal 0-30 [facility] Comment on above: Performed By: #### L 501.6710, L500.4050, L100.0100, L501.2400, L501.5200, L503.0106, L501.2450, L300.3900, L504.2610, L101.9900, L3100.3425, L501.2300 ####[facility] [address] [place], [address] Erythrocyte distribution wid th ratioOrdered By: Kristofer An on 02-21-2025 Erythrocyte distribution width (RBC) [Ratio] 14.0 % 11.6-14.6 [facility] Erythrocyte distribution wid th standard deviationOrdered By: Kristofer An on 02-21-2025 Erythrocyte distribution width (RBC) [Ratio] 47.9 fl High 35.1-43.9 [facility] Erythrocyte sedimentation ra teOrdered By: Kristofer An on 02-21-2025 ESR (Bld) [Velocity] 15 mm/h 0-30 [facility] Gastroenterology Visit Repor ton 02-21-2025 Gastroenterology Visit Report Normal [facility] Glomerular filtration rate ( GFR) estimation/1.73 sq m using serum, plasma, or whole bOrdered By: Kristofer An on 02-21-2025 GFR/1.73 sq M.predicted among non-blacks MDRD (S/P/Bld) [Vol rate/Area] 64 mL/min/{1.73_m2} >60 [facility] Comment on above: mL/min/1.73m2 CKD-EP I Creatinine Equation (2020) Hematocrit Auto (Bld) [Volum e fraction]Ordered By: Kristofer An on 02-21-2025 Hematocrit (Bld) [Volume fraction] 41.2 % 37-47 [facility] Hemoglobin measurementOrdere d By: Kristofer An on 02-21-2025 Hemoglobin (Bld) [Mass/Vol] 13.8 g/dL 12.0-15.0 [facility] Immature granulocytes/100 WB C Auto (Bld)Ordered By: Kristofer An on 02-21-2025 Immature granulocytes/100 WBC (Bld) 0.100 % 0.0-0.9 [facility] Comment on above: IG% - Immature Granu locytes (promyelocytes, myelocytes and metamyelocytes) > 1% indicates that a LEFT SHIFT is Present. International normalized rat io (INR) calculationOrdered By: Kristofer An on 02-21-2025 INR Coag (Bld) [Relative time] 1.1 {INR} [facility] Interpretation of serum or p lasma protein pattern by immunofixation (narrative resultOrdered By: Kristofer An on 02-21-2025 Protein Fractions Immunofixation Azar [Interp] Not Observed g/dL Not Observed [facility] LDHon 02-21-2025 LDH 268 U/L High 84-246 [facility] Comment on above: Order Comment: 1 Performed By: #### L 501.6710, L500.4050, L100.0100, L501.2400, L501.5200, L503.0106, L501.2450, L300.3900, L504.2610, L101.9900, L3100.3425, L501.2300 ####[facility] [address] [place], [address] Laboratory - Chemistry and C hemistry - challengeOrdered By: Kristofer An on 02-21-2025 AST [Catalytic activity/Vol] 63 U/L High <32 [facility] Lactate dehydrogenase (LDH) measurementOrdered By: Kristofer An on 02-21-2025 LDH [Catalytic activity/Vol] 268 U/L High 84-246 [facility] Lipaseon 02-21-2025 Lipase [Catalytic activity/Vol] 100 U/L High 13-75 [facility] Comment on above: Result Comment: Antonia santos note:LIPASE revised reference range effective 23.New Lipase methodology. Expected to produce lower valuesthan the previous assay method.NEW Reference Range: 13 - 75 U/L Performed By: #### L 501.6710, L500.4050, L100.0100, L501.2400, L501.5200, L503.0106, L501.2450, L300.3900, L504.2610, L101.9900, L3100.3425, L501.2300 ####[facility] [address] [place], [place], [address] Lipase measurementOrdered By : Kristofer An on 02-21-2025 Lipase [Catalytic activity/Vol] 100 U/L High 13-75 [facility] Comment on above: Please note:LIPASE r evised reference range effective 23. New Lipase methodology. Expected to produce lower values than the previous assay method. NEW Reference Range: 13 - 75 U/L MCV (mean corpuscular volume ) determinationOrdered By: Kristofer An on 02-21-2025 MCV (RBC) [Entitic vol] 92.2 fL 81-99 [facility] Magnesiumon 02-21-2025 Magnesium [Mass/Vol] 2.2 mg/dL Normal 1.5-2.2 [facility] Comment on above: Performed By: #### L 501.6710, L500.4050, L100.0100, L501.2400, L501.5200, L503.0106, L501.2450, L300.3900, L504.2610, L101.9900, L3100.3425, L501.2300 ####[facility] [address] [place], [address] Magnesium measurement (mass/ volume)Ordered By: Kristofer An on 02-21-2025 Magnesium (Unsp spec) [Mass/Vol] 2.2 mg/dL 1.5-2.2 [facility] Mean corpuscular hemoglobin (MCH) determinationOrdered By: Kristofer An on 02-21-2025 MCH (RBC) [Entitic mass] 30.9 pg 27.0-32.0 [facility] Mean corpuscular hemoglobin concentration (MCHC) determinationOrdered By: Kristofer An on 02-21-2025 MCHC (RBC) [Mass/Vol] 33.5 g/dL 32-36 [facility] Mean platelet volume determi nationOrdered By: Kristoferandrae An on 02-21-2025 Platelet mean volume (Bld) [Entitic vol] 10.6 fL 6.2-12.0 [facility] Monocyte percentageOrdered B y: Kristofer An on 02-21-2025 Monocytes/100 WBC (Bld) 5.8 % 0-10 [facility] Neutrophil percentageOrdered By: Kristoferghassan An on 02-21-2025 Neutrophils/100 WBC (Bld) 48.8 % 47-70 [facility] No Panel InformationOrdered By: Kristofer An on 02-21-2025 Addendum Document Comment . [facility] Comment on above: Protein electrophore sis scan will follow via computer,mail, or arc cutter delivery.Performed at: [address] [id number] Director: Marvin Lara PhD, Phone: [phone] Nucleated red blood cell per centageOrdered By: Kristofer An on 02-21-2025 Nucleated RBC/100 WBC (Bld) [Ratio] 0 % 0-5 [facility] Phosphoruson 02-21-2025 Phosphate [Mass/Vol] 3.5 mg/dL Normal 2.7-4.5 [facility] Comment on above: Performed By: #### L 501.3610, L500.4050, L100.0100, L501.2400, L501.5200, L503.0106, L501.2450, L300.3900, L504.2610, L101.9900, L3100.3425, L501.2300 ####[facility] [address] [place], [address] Platelet countOrdered By: Ra mayra An on 02-21-2025 Platelets (Bld) [#/Vol] 244 10*3/uL 150-450 [facility] Potassium measurement (mass/ volume)Ordered By: Kristofer An on 02-21-2025 Potassium (Unsp spec) [Mass/Vol] 4.7 mmol/L 3.3-5.1 [facility] Prothrombin Time w/INRon INR Coag (PPP) [Relative time] 1.1 {INR} Normal [facility] Comment on above: Performed By: #### L 501.6710, L500.4050, L100.0100, L501.2400, L501.5200, L503.0106, L501.2450, L300.3900, L504.2610, L101.9900, L3100.3425, L501.2300 ####[facility] [address] [place], [place], [phone] PT Coag (PPP) [Time] 14.4 s Normal 11.7-14.9 [facility] Comment on above: Performed By: #### L 501.6710, L500.4050, L100.0100, L501.2400, L501.5200, L503.0106, L501.2450, L300.3900, L504.2610, L101.9900, L3100.3425, L501.2300 ####[facility] [address] [place], [address] Prothrombin timeOrdered By: Kristofer An on 02-21-2025 PT Coag (PPP) [Time] 14.4 s 11.7-14.9 [facility] RBC Auto (Bld) [#/Vol]Ordere d By: Kristofer An on 02-21-2025 RBC (Bld) [#/Vol] 4.47 10*6/uL 4.2-5.4 [facility] Serum creatinine measurement (mass/volume)Ordered By: Kristofer An on 02-21-2025 Creatinine [Mass/Vol] 1.08 mg/dL 0.70-1.20 [facility] Serum globulin measurement ( mass/volume)Ordered By: Kristofer An on 02-21-2025 Globulin (S) [Mass/Vol] 3.8 g/dL 2.2-3.9 [facility] Serum glucose measurement (m ass/volume)Ordered By: Kristofer An on 02-21-2025 Glucose [Mass/Vol] 83 mg/dL 70-99 [facility] Serum or plasma C reactive p rotein measurement (mass/volume)Ordered By: Kristofer An on 02-21-2025 CRP [Mass/Vol] mg/L 0.0-3.0 [facility] Serum or plasma IgA measurem ent (mass/volume)Ordered By: Kristofer An on 02-21-2025 IgA [Mass/Vol] 439 mg/dL High 87-352 [facility] Serum or plasma IgG measurem ent (mass/volume)Ordered By: Kristofer An on 02-21-2025 IgG [Mass/Vol] 1571 mg/dL 586-1602 [facility] Serum or plasma alanine norton otransferase (ALT) measurementOrdered By: Kristofer An on 02-21-2025 ALT [Catalytic activity/Vol] 46 U/L High <35 [facility] Serum or plasma albumin tara urement (mass/volume)Ordered By: Kristofer An on 02-21-2025 Albumin [Mass/Vol] 4.4 g/dL 3.5-5.0 [facility] Serum or plasma albumin/glob ulin mass ratioOrdered By: Kristofer An on 02-21-2025 Albumin/Globulin [Mass ratio] 1.2 {ratio} 0.9-2.4 [facility] Serum or plasma alkaline dorothea sphatase measurementOrdered By: Kristofer An on 02-21-2025 ALP [Catalytic activity/Vol] 72 U/L 35-104 [facility] Serum or plasma alpha 1 glob ulin measurement by electrophoresis (mass/volume)Ordered By: Kristofer An on 02-21-2025 Alpha 1 globulin Elph [Mass/Vol] 0.2 g/dL 0.0-0.4 [facility] Alpha 1 globulin Elph [Mass/Vol] 0.6 g/dL 0.4-1.0 [facility] Serum or plasma amylase tara urement (enzymatic activity/volume)Ordered By: Kristofer An on 02-21-2025 Amylase [Catalytic activity/Vol] 88 U/L 28-100 [facility] Serum or plasma beta globuli n measurement by electrophoresis (mass/volume)Ordered By: Kristofer An on 02-21-2025 Beta globulin Elph [Mass/Vol] 1.2 g/dL 0.7-1.3 [facility] Serum or plasma calcium tara urement (mass/volume)Ordered By: Kristofer An on 02-21-2025 Calcium [Mass/Vol] 9.2 mg/dL 7.6-11.0 [facility] Serum or plasma gamma globul in measurement by electrophoresis (mass/volume)Ordered By: Kristofer nA on 02-21-2025 Gamma globulin Elph [Mass/Vol] 1.8 g/dL 0.4-1.8 [facility] Serum or plasma immunoelectr ophoresis interpretation (nominal result)Ordered By: Kristofer An on 02-21-2025 Interpretation IEP [Interp] Comment . [facility] Comment on above: No monoclonality det ected. Serum or plasma protein tara urement (mass/volume)Ordered By: Kristofer An on 02-21-2025 Protein [Mass/Vol] 7.7 g/dL 6.0-8.5 [facility] Serum or plasma urea nitroge n measurement (mass/volume)Ordered By: Kristofer An on 02-21-2025 Urea nitrogen [Mass/Vol] 17 mg/dL 4-19 [facility] Sodium levelOrdered By: Sumeet Herrera on 02-21-2025 Sodium [Moles/Vol] 137 mmol/L 133-145 [facility] Total proteinOrdered By: Oswaldo An on 02-21-2025 Protein [Mass/Vol] 8.0 g/dL 5.9-8.4 [facility] Vitamin B12on 02-21-2025 Cobalamin (Vitamin B12) [Mass/Vol] 931 pg/mL High 180-914 [facility] Comment on above: Performed By: #### L 501.6710, L500.4050, L100.0100, L501.2400, L501.5200, L503.0106, L501.2450, L300.3900, L504.2610, L101.9900, L3100.3425, L501.2300 ####[facility] [address] [place], [place], [address] Vitamin B12 ser/plasOrdered By: Kristofer An on 02-21-2025 Cobalamin (Vitamin B12) [Mass/Vol] 931 pg/mL High 180-914 [facility] White blood cell (WBC) count Ordered By: Kristofer An on 02-21-2025 WBC (Bld) [#/Vol] 7.5 10*3/uL 4.4-11.0 [facility] Absolute lymphocyte countOrd ered By: Carlos Chris on 01-11-2025 Lymphocytes Auto (Unsp spec) [#/Vol] 2.68 10*3/uL 0.83-4.51 [facility] Absolute neutrophil countOrd ered By: Carlos Chris on 01-11-2025 Neutrophils (Bld) [#/Vol] 4.7 10*3/uL 2.0-7.7 [facility] Activated partial thrombopla stin time (aPTT) in platelet poor plasma by coagulation aOrdered By: Carlos Chris on 01-11-2025 aPTT Coag (PPP) [Time] 26.2 s 24.1-36.2 [facility] Anion gap in Serum or Plasma Ordered By: Carlos Chris on 01-11-2025 Anion gap [Moles/Vol] 11 mmol/L 02-21 [facility] Automated lymphocyte count a s percentage of total leukocytesOrdered By: Carlos Chris on 01-11-2025 Lymphocytes/100 WBC Auto (Unsp spec) 33.1 % 19-41 [facility] BUN/creatinine ratioOrdered By: Carlos Chris on 01-11-2025 Urea nitrogen/Creatinine [Mass ratio] 13.8 mg/mg 10- [facility] Basic Metabolic Profile (BMP )on 01-11-2025 BUN/CRE 13.8 RATIO Normal - [facility] Comment on above: Performed By: #### L 300.4310, L300.3900, L500.2500, L100.0100, L400.2010 ####[facility] [id number] [place], [address] Calcium [Mass/Vol] 9.0 mg/dL Normal 7.6-11.0 [facility] Comment on above: Performed By: #### L 300.4310, L300.3900, L500.2500, L100.0100, L400.2010 ####[facility] [id number] [place], [address] Chloride [Moles/Vol] 103 mmol/L Normal 98-108 [facility] Comment on above: Performed By: #### L 300.4310, L300.3900, L500.2500, L100.0100, L400.2010 ####[facility] [id number] [place], [address] CO2 [Moles/Vol] 25.6 mmol/L Normal 21.0-32.0 [facility] Comment on above: Performed By: #### L 300.4310, L300.3900, L500.2500, L100.0100, L400.2010 ####[facility] [id number] [place], [address] Creatinine [Mass/Vol] 1.02 mg/dL Normal 0.70-1.20 [facility] Comment on above: Performed By: #### L 300.4310, L300.3900, L500.2500, L100.0100, L400.2010 ####[facility] [address] [place], [address] GAP 11 Normal 5-15 [facility] Comment on above: Performed By: #### L 300.4310, L300.3900, L500.2500, L100.0100, L400.2010 ####[facility] [address] [place], [address] GFR/1.73 sq M.predicted among non-blacks MDRD (S/P/Bld) [Vol rate/Area] 68 mL/min/{1.73_m2} Normal >60 [facility] Comment on above: Result Comment: mL/m in/1.73m2 CKD-EPI Creatinine Equation (2020) Performed By: #### L 300.4310, L300.3900, L500.2500, L100.0100, L400.2010 ####[facility] [address] [place], [address] Glucose [Mass/Vol] 82 mg/dL Normal 70-99 [facility] Comment on above: Performed By: #### L 300.4310, L300.3900, L500.2500, L100.0100, L400.2010 ####[facility] [address] [place], [address] Potassium [Moles/Vol] 4.6 mmol/L Normal 3.3-5.1 [facility] Comment on above: Performed By: #### L 300.4310, L300.3900, L500.2500, L100.0100, L400.2010 ####[facility] [address] [place], [address] Sodium [Moles/Vol] 139 mmol/L Normal 133-145 [facility] Comment on above: Performed By: #### L 300.4310, L300.3900, L500.2500, L100.0100, L400.2010 ####[facility] [address] [place], [address] Urea nitrogen [Mass/Vol] 14 mg/dL Normal 4-19 [facility] Comment on above: Performed By: #### L 300.4310, L300.3900, L500.2500, L100.0100, L400.2010 ####[facility] [address] [place], [address] Basophil percentageOrdered B y: Carlos Chris on 01-11-2025 Basophils/100 WBC (Bld) 0.9 % 0-1 [facility] Bilirubin Test strip Ql (U)O rdered By: Carlos Chris on 01-11-2025 Bilirubin Ql (U) Negative Negative [facility] CBC W/Diff, Automatedon Absolute Lymph 2.68 X10 3/uL Normal 0.83-4.51 [facility] Comment on above: Performed By: #### L 300.4310, L300.3900, L500.2500, L100.0100, L400.2010 ####[facility] [address] [place], [address] Absolute Neut 4.7 X10 3/uL Normal 2.0-7.7 [facility] Comment on above: Performed By: #### L 300.4310, L300.3900, L500.2500, L100.0100, L400.2010 ####[facility] [address] [place], [address] Basophils/100 WBC (Bld) 0.9 % Normal 0-1 [facility] Comment on above: Performed By: #### L 300.4310, L300.3900, L500.2500, L100.0100, L400.2010 ####[facility] [address] [place], [address] Eosinophils/100 WBC (Bld) 1.2 % Normal 0-5 [facility] Comment on above: Performed By: #### L 300.4310, L300.3900, L500.2500, L100.0100, L400.2010 ####[facility] [address] [place], [address] Erythrocyte distribution width (RBC) [Ratio] 13.7 % Normal 11.6-14.6 [facility] Comment on above: Performed By: #### L 300.4310, L300.3900, L500.2500, L100.0100, L400.2010 ####[facility] [address] [place], [address] Hematocrit (Bld) [Volume fraction] 40.8 % Normal 37-47 [facility] Comment on above: Performed By: #### L 300.4310, L300.3900, L500.2500, L100.0100, L400.2010 ####[facility] [address] [place], [address] Hemoglobin (Bld) [Mass/Vol] 13.4 g/dL Normal 12.0-15.0 [facility] Comment on above: Performed By: #### L 300.4310, L300.3900, L500.2500, L100.0100, L400.2010 ####[facility] [address] [place], [address] IG% 0.200 Normal 0.0-0.9 [facility] Comment on above: Result Comment: IG% - Immature Granulocytes (promyelocytes, myelocytes andmetamyelocytes) > 1% indicates that a LEFT SHIFT is Present. Performed By: #### L 300.4310, L300.3900, L500.2500, L100.0100, L400.2010 ####[facility] [address] [place], [address] Lymphocytes/100 WBC (Bld) 33.1 % Normal 19-41 [facility] Comment on above: Performed By: #### L 300.4310, L300.3900, L500.2500, L100.0100, L400.2010 ####[facility] [address] [place], [address] MCH (RBC) [Entitic mass] 30.6 pg Normal 27.0-32.0 [facility] Comment on above: Performed By: #### L 300.4310, L300.3900, L500.2500, L100.0100, L400.2010 ####[facility] [address] [place], [address] MCHC (RBC) [Mass/Vol] 32.8 g/dL Normal 32-36 [facility] Comment on above: Performed By: #### L 300.4310, L300.3900, L500.2500, L100.0100, L400.2010 ####[facility] [address] [place], [address] MCV (RBC) [Entitic vol] 93.2 fL Normal 81-99 [facility] Comment on above: Performed By: #### L 300.4310, L300.3900, L500.2500, L100.0100, L400.2010 ####[facility] [address] [place], [address] Monocytes/100 WBC (Bld) 6.6 % Normal 0-10 [facility] Comment on above: Performed By: #### L 300.4310, L300.3900, L500.2500, L100.0100, L400.2010 ####[facility] [address] [place], [address] Neutrophils/100 WBC (Bld) 58.0 % Normal 47-70 [facility] Comment on above: Performed By: #### L 300.4310, L300.3900, L500.2500, L100.0100, L400.2010 ####[facility] [address] [place], [address] Nucleated RBC (Bld) [#/Vol] 0 10*3/uL Normal 0-5 [facility] Comment on above: Performed By: #### L 300.4310, L300.3900, L500.2500, L100.0100, L400.2010 ####[facility] [address] [place], [address] Platelet mean volume (Bld) [Entitic vol] 11.3 fL Normal 6.2-12.0 [facility] Comment on above: Performed By: #### L 300.4310, L300.3900, L500.2500, L100.0100, L400.2010 ####[facility] [address] [place], [address] Platelets (Bld) [#/Vol] 270 10*3/uL Normal 150-450 [facility] Comment on above: Performed By: #### L 300.4310, L300.3900, L500.2500, L100.0100, L400.2010 ####[facility] [address] [place], [address] RBC (Bld) [#/Vol] 4.38 10*6/uL Normal 4.2-5.4 [facility] Comment on above: Performed By: #### L 300.4310, L300.3900, L500.2500, L100.0100, L400.2010 ####[facility] [address] [place], [address] RDW SD 46.2 fl High 35.1-43.9 [facility] Comment on above: Performed By: #### L 300.4310, L300.3900, L500.2500, L100.0100, L400.2010 ####[facility] [address] [place], [address] WBC (Bld) [#/Vol] 8.1 10*3/uL Normal 4.4-11.0 [facility] Comment on above: Performed By: #### L 300.4310, L300.3900, L500.2500, L100.0100, L400.2010 ####[facility] [address] [place], [address] Carbon dioxide, total [Moles /volume] in Central venous bloodOrdered By: Carlos Chris on 01-11-2025 CO2 [Moles/Vol] 25.6 mmol/L 21.0-32.0 [facility] Chloride assayOrdered By: Ric Chris on 01-11-2025 Chloride [Moles/Vol] 103 mmol/L 98-108 [facility] Eosinophil percentageOrdered By: Carlos Chris 01-11-2025 Eosinophils/100 WBC (Bld) 1.2 % 0-5 [facility] Erythrocyte distribution wid th (RBC) [Ratio]Ordered By: Carlos Chris 01-11-2025 Erythrocyte distribution width (RBC) [Entitic vol] 46.2 fL High 35.1-43.9 [facility] Erythrocyte distribution wid th ratioOrdered By: Carlos Chris 01-11-2025 Erythrocyte distribution width (RBC) [Ratio] 13.7 % 11.6-14.6 [facility] Erythrocyte distribution wid th standard deviationOrdered By: Carlos Chris 01-11-2025 Erythrocyte distribution width (RBC) [Ratio] 46.2 fl High 35.1-43.9 [facility] GFR/1.73 sq M.predicted marifer g non-blacks MDRD (S/P/Bld) [Vol rate/Area]Ordered By: Carlos Chris on 01-11-2025 Estimated GFR (MDRD) Non-Af Amer 68 >60 [facility] Comment on above: mL/min/1.73m2 CKD-EP I Creatinine Equation (2020) Glomerular filtration rate ( GFR) estimation/1.73 sq m using serum, plasma, or whole bOrdered By: Carlos Chris 01-11-2025 GFR/1.73 sq M.predicted among non-blacks MDRD (S/P/Bld) [Vol rate/Area] 68 mL/min/{1.73_m2} >60 [facility] Comment on above: mL/min/1.73m2 CKD-EP I Creatinine Equation (2020) Glucose Ql (U)Ordered By: Ric Chris on 01-11-2025 Urine Glucose (UA) Normal mg/dl Normal [facility] Hematocrit Auto (Bld) [Volum e fraction]Ordered By: Carlos Chris on 01-11-2025 Hematocrit (Bld) [Volume fraction] 40.8 % 37-47 [facility] Hemoglobin measurementOrdere d By: Carlos Chris on 01-11-2025 Hemoglobin (Bld) [Mass/Vol] 13.4 g/dL 12.0-15.0 [facility] Immature granulocytes/100 WB C Auto (Bld)Ordered By: Carlos Chris 01-11-2025 Immature granulocytes/100 WBC (Bld) 0.200 % 0.0-0.9 [facility] Comment on above: IG% - Immature Granu locytes (promyelocytes, myelocytes and metamyelocytes) > 1% indicates that a LEFT SHIFT is Present. International normalized rat io (INR) calculationOrdered By: Carlos Chris on 01-11-2025 INR Coag (Bld) [Relative time] 1.0 {INR} [facility] Ketones Test strip Ql (U)Ord ered By: Carlos Chris 01-11-2025 Ketones Ql (U) Negative Negative [facility] Lymphocytes Auto (Unsp spec) [#/Vol]Ordered By: Carlos Chris 01-11-2025 Lymphocytes (Bld) [#/Vol] 2.68 10*3/uL 0.83-4.51 [facility] Lymphocytes/100 WBC Auto (Un sp spec)Ordered By: Carlos Chris 01-11-2025 Lymphocytes/100 WBC (Bld) 33.1 % 19-41 [facility] MCV (mean corpuscular volume ) determinationOrdered By: Carlos Chris 01-11-2025 MCV (RBC) [Entitic vol] 93.2 fL 81-99 [facility] Mean corpuscular hemoglobin (MCH) determinationOrdered By: Carlos Chris 01-11-2025 MCH (RBC) [Entitic mass] 30.6 pg 27.0-32.0 [facility] Mean corpuscular hemoglobin concentration (MCHC) determinationOrdered By: Carlos Chris on 01-11-2025 MCHC (RBC) [Mass/Vol] 32.8 g/dL 32-36 [facility] Mean platelet volume determi nationOrdered By: Carlos Chris on 01-11-2025 Platelet mean volume (Bld) [Entitic vol] 11.3 fL 6.2-12.0 [facility] Monocyte percentageOrdered B y: Carlos Chris on 01-11-2025 Monocytes/100 WBC (Bld) 6.6 % 0-10 [facility] Neutrophil percentageOrdered By: Carlos Chris on 01-11-2025 Neutrophils/100 WBC (Bld) 58.0 % 47-70 [facility] Nitrite Test strip Ql (U)Ord ered By: Carlos Chris on 01-11-2025 Nitrite Ql (U) Negative Negative [facility] Nucleated red blood cell per centageOrdered By: Carlos Chris on 01-11-2025 Nucleated RBC/100 WBC (Bld) [Ratio] 0 % 0-5 [facility] Partial Thromboplast Timeon 01-11-2025 aPTT Coag (Bld) [Time] 26.2 s Normal 24.1-36.2 [facility] Comment on above: Performed By: #### L 300.4310, L300.3900, L500.2500, L100.0100, L400.2010 ####[facility] [address] [place], [address] Platelet countOrdered By: Ric Chris on 01-11-2025 Platelets (Bld) [#/Vol] 270 10*3/uL 150-450 [facility] Potassium (Unsp spec) [Mass/ Vol]Ordered By: Carlos Chris on 01-11-2025 Potassium [Moles/Vol] 4.6 mmol/L 3.3-5.1 [facility] Potassium measurement (mass/ volume)Ordered By: Carlos Chris on 01-11-2025 Potassium (Unsp spec) [Mass/Vol] 4.6 mmol/L 3.3-5.1 [facility] Protein Test strip Ql (U)Ord ered By: Carlos Chris on 01-11-2025 Protein Ql (U) Negative Negative [facility] Prothrombin Time w/INRon INR Coag (PPP) [Relative time] 1.0 {INR} Normal [facility] Comment on above: Performed By: #### L 300.4310, L300.3900, L500.2500, L100.0100, L400.2010 ####[facility] [address] [place], [place], [id number] PT Coag (PPP) [Time] 13.2 s Normal 11.7-14.9 [facility] Comment on above: Performed By: #### L 300.4310, L300.3900, L500.2500, L100.0100, L400.2010 ####[facility] [address] [place], [place], [address] Prothrombin timeOrdered By: Carlos Chris on 01-11-2025 PT Coag (PPP) [Time] 13.2 s 11.7-14.9 [facility] RBC Auto (Bld) [#/Vol]Ordere d By: Carlos Chris on 01-11-2025 RBC (Bld) [#/Vol] 4.38 10*6/uL 4.2-5.4 [facility] Serum creatinine measurement (mass/volume)Ordered By: Carlos Chris on 01-11-2025 Creatinine [Mass/Vol] 1.02 mg/dL 0.70-1.20 [facility] Serum glucose measurement (m ass/volume)Ordered By: Carlos Chris on 01-11-2025 Glucose [Mass/Vol] 82 mg/dL 70-99 [facility] Serum or plasma calcium tara urement (mass/volume)Ordered By: Carlos Chris on 01-11-2025 Calcium [Mass/Vol] 9.0 mg/dL 7.6-11.0 [facility] Serum or plasma urea nitroge n measurement (mass/volume)Ordered By: Carlos Chris on 01-11-2025 Urea nitrogen [Mass/Vol] 14 mg/dL 4-19 [facility] Sodium levelOrdered By: Carlos Chris on 01-11-2025 Sodium [Moles/Vol] 139 mmol/L 133-145 [facility] Urinalysis, Routine (Dipstic k)on 01-11-2025 BILIRUBIN URINE Negative Normal Negative [facility] Comment on above: Order Comment: Urine , Random Performed By: #### L 300.4310, L300.3900, L500.2500, L100.0100, L400.2010 ####[facility] [address] [place], [address] Clarity (U) Clear Normal Clear [facility] Comment on above: Order Comment: Urine , Random Performed By: #### L 300.4310, L300.3900, L500.2500, L100.0100, L400.2010 ####[facility] [address] [place], [address] Color (U) Yellow Normal Yellow [facility] Comment on above: Order Comment: Urine , Random Performed By: #### L 300.4310, L300.3900, L500.2500, L100.0100, L400.2010 ####[facility] [address] [place], [address] GLUCOSE, UR Normal Normal Normal [facility] Comment on above: Order Comment: Urine , Random Performed By: #### L 300.4310, L300.3900, L500.2500, L100.0100, L400.2010 ####[facility] [address] [place], [address] KETONE UR Negative Normal Negative [facility] Comment on above: Order Comment: Urine , Random Performed By: #### L 300.4310, L300.3900, L500.2500, L100.0100, L400.2010 ####[facility] [address] [place], [address] LEUK ESTERASE Negative Normal Negative [facility] Comment on above: Order Comment: Urine , Random Performed By: #### L 300.4310, L300.3900, L500.2500, L100.0100, L400.2010 ####[facility] [address] [place], [address] Nitrite Ql (U) Negative Normal Negative [facility] Comment on above: Order Comment: Urine , Random Performed By: #### L 300.4310, L300.3900, L500.2500, L100.0100, L400.2010 ####[facility] [address] [place], [address] OCCULT BLOOD-UR Negative Normal Negative [facility] Comment on above: Order Comment: Urine , Random Performed By: #### L 300.4310, L300.3900, L500.2500, L100.0100, L400.2010 ####[facility] [address] [place], [address] pH UR 6.0 Normal 5.0 - 8.0 [facility] Comment on above: Order Comment: Urine , Random Performed By: #### L 300.4310, L300.3900, L500.2500, L100.0100, L400.2010 ####[facility] [address] [place], [address] PROT DIPSTX Negative Normal Negative [facility] Comment on above: Order Comment: Urine , Random Performed By: #### L 300.4310, L300.3900, L500.2500, L100.0100, L400.2010 ####[facility] [address] [place], [address] SP.GR. DIPSTX 1.015 Normal 1.002-1.030 [facility] Comment on above: Order Comment: Urine , Random Performed By: #### L 300.4310, L300.3900, L500.2500, L100.0100, L400.2010 ####[facility] [address] [place], [address] UROBILI Normal Normal Normal [facility] Comment on above: Order Comment: Urine , Random Performed By: #### L 300.4310, L300.3900, L500.2500, L100.0100, L400.2011 ####[facility] [address] [place], [address] Urine blood detectionOrdered By: Carlos Chris on 01-11-2025 Urine Occult Blood Negative Negative [facility] Urine clarityOrdered By: Carlos Chris on 01-11-2025 Clarity (U) Clear Clear [facility] Urine color determinationOrd ered By: Carlos Chris on 01-11-2025 Color (U) Yellow Yellow [facility] Urine glucose detectionOrder ed By: Carlos Chris on 01-11-2025 Glucose Ql (U) Normal mg/dl Normal [facility] Urine leukocyte esterase det ection by dipstickOrdered By: Carlos Chris 01-11-2025 Leukocyte esterase Test strip Ql (U) Negative Negative [facility] Urine pHOrdered By: Carlos Chris on 01-11-2025 pH (U) 6.0 [pH] 5.0 - 8.0 [facility] Urine specific gravity measu rementOrdered By: Carlos Chris on 01-11-2025 Specific gravity (U) [Rel density] 1.015 1.002-1.030 [facility] Urine urobilinogen measureme ntOrdered By: Carlos Chris on 01-11-2025 Urobilinogen Ql (U) Normal mg/dl Normal [facility] Urobilinogen Ql (U)Ordered B y: Carlos Chris on 01-11-2025 Urine Urobilinogen Normal mg/dl Normal [facility] White blood cell (WBC) count Ordered By: Carlos Chris on 01-11-2025 WBC (Bld) [#/Vol] 8.1 10*3/uL 4.4-11.0 [facility] aPTT Coag (PPP) [Time]Ordere d By: Carlos Chris on 01-11-2025 aPTT Coag (Bld) [Time] 26.2 s 24.1-36.2 [facility] CNOVon 12-21-2024 CNOV Office Visit (ENWSTR ) ROMAIN MENDOZA ([id number]) 1975 F NFR Date Time Provider Department 12/21/24 9:40 AM ALFRED HOOD ENWSTR During your visit today, we recorded the following information about you: Pulse Respiration Blood pressure Weight 60/minute 20/minute 118/74 61.1 kg Height 1.524 m Alfred Hood MD 12/23/2024 12:01 PM Addendum [facility] Follow up note Subjective: Romain Mendoza is a 49 year old female here for follow up of postablative hypothyroidism. She is self referred, transferring care from Dr. Matthias Mendieta in [place] Initial/last visit with me was 09/18/2024 History in brief, obtained from chart review: She has a hx of hyperthyroidism diagnosed when in 2006 when she was . At that time she was seeing Dr. Chan, and was on PTU. She later underwent MCPHERSON with 8.63 mCi of I-131 on 01/05/2008. She was restarted on tapazole 6 weeks later due to symptoms She was euthyroid later, followed by hypothyroidism leading to initiation of LT4 She appears to have undergone FNA of left thyroid lobe also in 2007 (dated 01/02/1008 as well on charts) with limited cellularity She had cystic nodule, 0.795 x 0.337 cm on sagittal view on left, aspirated . FNA was inadequate cellularity, but benign, cystic contents. I will wait to repeat an ultrasound for a year or more A second biopsy was intended, but patient reports this was never done, and rather ablation was done, and reports she was immediately again- likely in 04/2008 per chart review Current treatment: Levothyroxine 137 mcg daily since last week Prior treatment: Tirosint 175 mcg daily Changes made based on most recent labs in 09/2024 General symptoms: Fatigue: depends Weight change: no Appetite change: she eats multiple times a day due to hx of bariatric surgery (lost from 300 lbs to now at 135 lbs after surgery) Menstrual irregularities: partial hysterectomy done due to abnormal periods, completion done last year due to pain in abdomen Temperature intolerance: cold intolerance always Sleep is fine Sometimes has tremors She takes flintstone Chewables and calcium, Vit E and B12 She also underwent Gastric bypass in Sep 2022 Experiences Hypoglycemia intermittently, recently in 07/2024. Had a hypoglycemic seizure Has a glucose log brought in- most sugars are above 75 mg/dl, some in 200s. Review of the log does not indicate lows below 60 mg/dl She takes small frequent meals as she reports. She had dietitian visit early on after surgery. Interval history: 12/21/24: She asks if she could have her thyroid removed as her thyroid is not controlled When I told her that the thyroid is not doing anything, and and has been killed, she asks what the medication is doing if her thyroid has been killed No specific thyroid concerning symptoms reported other than those reported on previous visit She did not discuss any concerns with regards to hypoglycemia either REVIEW OF SYSTEMS: 10 point ROS was reviewed and negative unless indicated in the HPI ALLERGIES: ALLERGIES Allergen Reactions Nsaids (Non-Steroid* Other: See Comments Due to bariatric surgery Codeine Other: See Comments Dizziness- (all forms/doses)-cannot take cough syrup with codeine Citalopram GI Upset Nausea and vomiting [place] GI Upset stomach pain MEDICATIONS: Current Outpatient Medications on File Prior to Visit Medication Sig ONETOUCH ULTRA TEST test strip 1 Each once daily. ONETOUCH ULTRA2 METER 1 Each. hydrOXYzine HCl (ATARAX) 50 mg tablet Take 50 mg by mouth three times a day as needed for anxiety. ONETOUCH DELICA PLUS LANCET 33 gauge 1 Each once daily. levothyroxine (SYNTHROID) 137 mcg tablet Take 1 tablet by mouth every afternoon. potassium chloride (K-TAB) 10 mEq tablet Take 1 tablet by mouth every afternoon. pantoprazole DR (PROTONIX) 40 mg tablet Take 40 mg by mouth once daily. vilazodone (VIIBRYD) 20 mg tablet Take 20 mg by mouth once daily. estradiol (CLIMARA) 0.075 mg/24 hr Apply 1 Patch as directed one time a week. to lower abd or buttocks. rosuvastatin (CRESTOR) 40 mg tablet allopurinol (ZYLOPRIM) 100 mg tablet MULTIVITAMIN ORAL Take by mouth. Flinstone chewables CALCIUM ORAL Take by mouth. cyanocobalamin/folic acid (VITAMIN K26-CEGML ACID) 1,000-400 mcg lozg Dissolve under the tongue. ALPRAZolam (XANAX) 0.25 mg tablet Take 1 tablet by mouth once daily as needed for Anxiety. albuterol HFA (VENTOLIN HFA) 90 mcg/actuation inhaler Inhale 2 Puffs as instructed every 4 hours as needed for Wheezing/Shortness of Breath. No current facility-administered medications on file prior to visit. PAST MEDICAL HISTORY: PAST MEDICAL HISTORY Diagnosis Date Asthma 03/2016 + [facility] at [facility]. Depressive disorder, not elsewhere classified E (more content not included)... Normal [facility] Breast imaging reportOrdered By: Carlos Agarwal on 12-03-2024 Study report [facility] Imaging Services [address] [place], [place] [id number] SCRN MAMM (CAD)W/JORDAN BILAT MR#: [id number] Acct: [id number] Name: ROMAIN MENDOZA Rep #: [id number] : 1975 F 49 From: Helder Agarwal MD PCP: Dr. Carols Chris MD Status: MIGUELINA AN Study:SCRN MAMM (CAD)W/JORDAN BILAT Date of Exa m: 12/03/24 Exam# [id number] Ordering Dr: Carlos Chris MD PROCEDURE: SCRN MAMM (CAD)W/JORDAN BILAT REASON FOR EXAM: F, Age 49 y/o, routine annual mammographic follow-up. Mother with breast cancer. TECHNIQUE: Bilateral screening digital breast tomosynthesis with 2D and 3D images. Computeraided detection. COMPARISON: Prior exam(s) dating back to comparison is made with prior study dated December 01, 2023.. FINDINGS: There are scattered areas of fibroglandular density. Stable small benign-appearing bilateral axillary lymph nodes. No suspicious masses, areas of developing architectural distortion, or suspicious calcifications. Stable examination. BI/SCRN MAMM (CAD)W/JORDAN BILAT IMPRESSION: BI-RADS 2: BENIGN. RECOMMEND ANNUAL MAMMOGRAPHIC SCREENING. Follow-up code: Routine Follow-up The patient will be notified of the results by letter. Reading Location: [facility] CC: Dr. Carlos Chris MD ~ Broadcast Engineer: Signed [facility] SCRN MAMM (CAD)W/JORDAN BILATo n 12-03-2024 SCRN MAMM (CAD)W/JORDAN BILAT Normal [facility] GALINA + Protein Elect, Serumon 11-23-2024 Albumin [Mass/Vol] 3.6 g/dL Normal 2.9-4.4 [facility] Comment on above: Order Comment: Y Performed By: #### L 100.0100, L503.6075, L500.4050, L100.9950, L503.6550, L503.6150, L3100.3425, L504.2610 ####[facility] [address] [place], [address] Albumin/Globulin [Mass ratio] 1.1 {ratio} Normal 0.7-1.7 [facility] Comment on above: Order Comment: Y Performed By: #### L 100.0100, L503.6075, L500.4050, L100.9950, L503.6550, L503.6150, L3100.3425, L504.2610 ####[facility] [address] [place], [place], [id number] OLJKC-1-CQMI 0.2 g/dL Normal 0.0-0.4 [facility] Comment on above: Order Comment: Y Performed By: #### L 100.0100, L503.6075, L500.4050, L100.9950, L503.6550, L503.6150, L3100.3425, L504.2610 ####[facility] [address] [place], [address] PVSAR-1-SNPN 0.7 g/dL Normal 0.4-1.0 [facility] Comment on above: Order Comment: Y Performed By: #### L 100.0100, L503.6075, L500.4050, L100.9950, L503.6550, L503.6150, L3100.3425, L504.2610 ####[facility] [address] [place], [address] BETA GLOBULIN 1.0 g/dL Normal 0.7-1.3 [facility] Comment on above: Order Comment: Y Performed By: #### L 100.0100, L503.6075, L500.4050, L100.9950, L503.6550, L503.6150, L3100.3425, L504.2610 ####[facility] [address] [place], [address] GAMMA GLOBULIN 1.7 g/dL Normal 0.4-1.8 [facility] Comment on above: Order Comment: Y Performed By: #### L 100.0100, L503.6075, L500.4050, L100.9950, L503.6550, L503.6150, L3100.3425, L504.2610 ####[facility] [address] [place], [address] Globulin (S) [Mass/Vol] 3.5 g/dL Normal 2.2-3.9 [facility] Comment on above: Order Comment: Y Performed By: #### L 100.0100, L503.6075, L500.4050, L100.9950, L503.6550, L503.6150, L3100.3425, L504.2610 ####[facility] [address] [place], [address] GALINA RESULT,S Comment Normal . [facility] Comment on above: Order Comment: Y Result Comment: No m onoclonality detected. Performed By: #### L 100.0100, L503.6075, L500.4050, L100.9950, L503.6550, L503.6150, L3100.3425, L504.2610 ####[facility] [address] [place], [address] IMMUNOGLOB A QN 413 mg/dL High 87-352 [facility] Comment on above: Order Comment: Y Performed By: #### L 100.0100, L503.6075, L500.4050, L100.9950, L503.6550, L503.6150, L3100.3425, L504.2610 ####[facility] [address] [place], [address] IMMUNOGLOB G QN 1518 mg/dL Normal 586-1602 [facility] Comment on above: Order Comment: Y Performed By: #### L 100.0100, L503.6075, L500.4050, L100.9950, L503.6550, L503.6150, L3100.3425, L504.2610 ####[facility] [address] [place], [address] IMMUNOGLOB M QN 296 mg/dL High 26-217 [facility] Comment on above: Order Comment: Y Performed By: #### L 100.0100, L503.6075, L500.4050, L100.9950, L503.6550, L503.6150, L3100.3425, L504.2610 ####[facility] [address] [place], [address] M-Jayro Not Observed Normal Not Observed [facility] Comment on above: Order Comment: Y Performed By: #### L 100.0100, L503.6075, L500.4050, L100.9950, L503.6550, L503.6150, L3100.3425, L504.2610 ####[facility] [address] [place], [address] NOTE: Comment Normal . [facility] Comment on above: Order Comment: Y Result Comment: Prot ein electrophoresis scan will follow via computer,mail, or arc cutter delivery.Performed at: [facility] [address] [id number] Director: Marvin Lara PhD, Phone: [phone] Performed By: #### L 100.0100, L503.6075, L500.4050, L100.9950, L503.6550, L503.6150, L3100.3425, L504.2610 ####[facility] [address] [place], [address] Protein [Mass/Vol] 7.1 g/dL Normal 6.0-8.5 [facility] Comment on above: Order Comment: Y Performed By: #### L 100.0100, L503.6075, L500.4050, L100.9950, L503.6550, L503.6150, L3100.3425, L504.2610 ####[facility] [address] [place], [address] Absolute lymphocyte countOrd ered By: Carlos Chris on 11-22-2024 Lymphocytes Auto (Unsp spec) [#/Vol] 2.82 10*3/uL 0.83-4.51 [facility] Absolute neutrophil countOrd ered By: Carlos Chris on 11-22-2024 Neutrophils (Bld) [#/Vol] 3.0 10*3/uL 2.0-7.7 [facility] Albumin to globulin ratioOrd ered By: [facility] on 11-22-2024 Albumin/Globulin [Mass ratio] 0.9 {ratio} 0.9-2.4 [facility] Automated lymphocyte count a s percentage of total leukocytesOrdered By: Carlos Aries on 11-22-2024 Lymphocytes/100 WBC Auto (Unsp spec) 43.2 % High 19-41 [facility] Basophil percentageOrdered B y: Carlos Aries on 11-22-2024 Basophils/100 WBC (Bld) 0.8 % 0-1 [facility] Bilirubin, totalOrdered By: Carlos Chris on 11-22-2024 Bilirubin [Mass/Vol] 0.90 mg/dL 0.20-1.00 [facility] Comment on above: For patients on eltr ombopag therapy, use of Dimension [place] TBIL is not recommended. Blood urea nitrogen (BUN)/cr eatinine ratioOrdered By: Carlos Chris on 11-22-2024 Urea nitrogen/Creatinine [Mass ratio] 11.9 mg/mg 10-20 [facility] CBC W/Diff, Automatedon 11-10 Absolute Lymph 2.82 X10 3/uL Normal 0.83-4.51 [facility] Comment on above: Performed By: #### L 501.1200, L500.4100, L500.4050, L501.9985, L501.9520, L502.0500, L100.0100 ####[facility] [address] [place], [address] Absolute Neut 3.0 X10 3/uL Normal 2.0-7.7 [facility] Comment on above: Performed By: #### L 501.1200, L500.4100, L500.4050, L501.9985, L501.9520, L502.0500, L100.0100 ####[facility] [address] [place], [address] Basophils/100 WBC (Bld) 0.8 % Normal 0-1 [facility] Comment on above: Performed By: #### L 501.1200, L500.4100, L500.4050, L501.9985, L501.9520, L502.0500, L100.0100 ####[facility] [address] [place], [address] Eosinophils/100 WBC (Bld) 1.4 % Normal 0-5 [facility] Comment on above: Performed By: #### L 501.1200, L500.4100, L500.4050, L501.9985, L501.9520, L502.0500, L100.0100 ####[facility] [address] [place], [address] Erythrocyte distribution width (RBC) [Ratio] 12.4 % Normal 11.6-14.6 [facility] Comment on above: Performed By: #### L 501.1200, L500.4100, L500.4050, L501.9985, L501.9520, L502.0500, L100.0100 ####[facility] [address] [place], [address] Hematocrit (Bld) [Volume fraction] 39.9 % Normal 37-47 [facility] Comment on above: Performed By: #### L 501.1200, L500.4100, L500.4050, L501.9985, L501.9520, L502.0500, L100.0100 ####[facility] [address] [place], [address] Hemoglobin (Bld) [Mass/Vol] 12.7 g/dL Normal 12.0-15.0 [facility] Comment on above: Performed By: #### L 501.1200, L500.4100, L500.4050, L501.9985, L501.9520, L502.0500, L100.0100 ####[facility] [address] [place], [address] IG% 0.300 Normal 0.0-0.9 [facility] Comment on above: Result Comment: IG% - Immature Granulocytes (promyelocytes, myelocytes andmetamyelocytes) > 1% indicates that a LEFT SHIFT is Present. Performed By: #### L 501.1200, L500.4100, L500.4050, L501.9985, L501.9520, L502.0500, L100.0100 ####[facility] [address] [place], [address] Lymphocytes/100 WBC (Bld) 43.2 % High 19-41 [facility] Comment on above: Performed By: #### L 501.1200, L500.4100, L500.4050, L501.9985, L501.9520, L502.0500, L100.0100 ####[facility] [address] [place], [address] MCH (RBC) [Entitic mass] 28.7 pg Normal 27.0-32.0 [facility] Comment on above: Performed By: #### L 501.1200, L500.4100, L500.4050, L501.9985, L501.9520, L502.0500, L100.0100 ####[facility] [address] [place], [address] MCHC (RBC) [Mass/Vol] 31.8 g/dL Low 32-36 [facility] Comment on above: Performed By: #### L 501.1200, L500.4100, L500.4050, L501.9985, L501.9520, L502.0500, L100.0100 ####[facility] [address] [place], [address] MCV (RBC) [Entitic vol] 90.1 fL Normal 81-99 [facility] Comment on above: Performed By: #### L 501.1200, L500.4100, L500.4050, L501.9985, L501.9520, L502.0500, L100.0100 ####[facility] [address] [place], [address] Monocytes/100 WBC (Bld) 8.6 % Normal 0-10 [facility] Comment on above: Performed By: #### L 501.1200, L500.4100, L500.4050, L501.9985, L501.9520, L502.0500, L100.0100 ####[facility] [address] [place], [address] Neutrophils/100 WBC (Bld) 45.7 % Low 47-70 [facility] Comment on above: Performed By: #### L 501.1200, L500.4100, L500.4050, L501.9985, L501.9520, L502.0500, L100.0100 ####[facility] [address] [place], [address] Nucleated RBC (Bld) [#/Vol] 0 10*3/uL Normal 0-5 [facility] Comment on above: Performed By: #### L 501.1200, L500.4100, L500.4050, L501.9985, L501.9520, L502.0500, L100.0100 ####[facility] [address] [place], [address] Platelet mean volume (Bld) [Entitic vol] 10.5 fL Normal 6.2-12.0 [facility] Comment on above: Performed By: #### L 501.1200, L500.4100, L500.4050, L501.9985, L501.9520, L502.0500, L100.0100 ####[facility] [address] [place], [address] Platelets (Bld) [#/Vol] 337 10*3/uL Normal 150-450 [facility] Comment on above: Performed By: #### L 501.1200, L500.4100, L500.4050, L501.9985, L501.9520, L502.0500, L100.0100 ####[facility] [address] [place], [address] RBC (Bld) [#/Vol] 4.43 10*6/uL Normal 4.2-5.4 [facility] Comment on above: Performed By: #### L 501.1200, L500.4100, L500.4050, L501.9985, L501.9520, L502.0500, L100.0100 ####[facility] [address] [place], [address] RDW SD 41.3 fl Normal 35.1-43.9 [facility] Comment on above: Performed By: #### L 501.1200, L500.4100, L500.4050, L501.9985, L501.9520, L502.0500, L100.0100 ####[facility] [address] [place], [address] WBC (Bld) [#/Vol] 6.5 10*3/uL Normal 4.4-11.0 [facility] Comment on above: Performed By: #### L 501.1200, L500.4100, L500.4050, L501.9985, L501.9520, L502.0500, L100.0100 ####[facility] [address] [place], [address] Carbon dioxide measurementOr dered By: Carlos Chris on 11-22-2024 CO2 [Moles/Vol] 27.0 mmol/L 21.0-32.0 [facility] Chloride measurementOrdered By: Carlos Chris on 11-22-2024 Chloride [Moles/Vol] 108 mmol/L High 98-107 [facility] Comprehensive Metabolic Prof ilon 11-22-2024 Albumin [Mass/Vol] 3.6 g/dL Normal 3.2-5.0 [facility] Comment on above: Performed By: #### L 501.1200, L500.4100, L500.4050, L501.9985, L501.9520, L502.0500, L100.0100 ####[facility] [address] [place], [address] Albumin/Globulin [Mass ratio] 0.9 {ratio} Normal 0.9-2.4 [facility] Comment on above: Performed By: #### L 501.1200, L500.4100, L500.4050, L501.9985, L501.9520, L502.0500, L100.0100 ####[facility] [address] [place], [address] ALK P 69 U/L Normal 45-117 [facility] Comment on above: Performed By: #### L 501.1200, L500.4100, L500.4050, L501.9985, L501.9520, L502.0500, L100.0100 ####[facility] [address] [place], [address] ALT [Catalytic activity/Vol] 24 U/L Normal 13-56 [facility] Comment on above: Performed By: #### L 501.1200, L500.4100, L500.4050, L501.9985, L501.9520, L502.0500, L100.0100 ####[facility] [address] [place], [address] AST [Catalytic activity/Vol] 28 U/L Normal 15-37 [facility] Comment on above: Performed By: #### L 501.1200, L500.4100, L500.4050, L501.9985, L501.9520, L502.0500, L100.0100 ####[facility] [address] [place], [address] Bilirubin [Mass/Vol] 0.90 mg/dL Normal 0.20-1.00 [facility] Comment on above: Result Comment: For patients on eltrombopag therapy, use of Dimension [place] TBIL is not recommended. Performed By: #### L 501.1200, L500.4100, L500.4050, L501.9985, L501.9520, L502.0500, L100.0100 ####[facility] [address] [place], [address] BUN/CRE 11.9 RATIO Normal 10-20 [facility] Comment on above: Performed By: #### L 501.1200, L500.4100, L500.4050, L501.9985, L501.9520, L502.0500, L100.0100 ####[facility] [address] [place], [address] CA,Total 9.0 mg/dL Normal 8.5-10.1 [facility] Comment on above: Performed By: #### L 501.1200, L500.4100, L500.4050, L501.9985, L501.9520, L502.0500, L100.0100 ####[facility] [address] [place], [address] Chloride [Moles/Vol] 108 mmol/L High 98-107 [facility] Comment on above: Performed By: #### L 501.1200, L500.4100, L500.4050, L501.9985, L501.9520, L502.0500, L100.0100 ####[facility] [address] [place], [address] CO2 [Moles/Vol] 27.0 mmol/L Normal 21.0-32.0 [facility] Comment on above: Performed By: #### L 501.1200, L500.4100, L500.4050, L501.9985, L501.9520, L502.0500, L100.0100 ####[facility] [address] [place], [address] Creatinine [Mass/Vol] 0.93 mg/dL Normal 0.55-1.02 [facility] Comment on above: Result Comment: The validity of the calculated GFR GFRAA in patients over70 years has not been determined. Clinical correlation isessential. Performed By: #### L 501.1200, L500.4100, L500.4050, L501.9985, L501.9520, L502.0500, L100.0100 ####[facility] [address] [place], [address] EST GFR - AA 83 mL/min Normal >60 [facility] Comment on above: Result Comment: Afri can [place] GFR Calc Performed By: #### L 501.1200, L500.4100, L500.4050, L501.9985, L501.9520, L502.0500, L100.0100 ####[facility] [address] [place], [address] GAP 4 Low 5-15 [facility] Comment on above: Performed By: #### L 501.1200, L500.4100, L500.4050, L501.9985, L501.9520, L502.0500, L100.0100 ####[facility] [address] [place], [address] GFR/1.73 sq M.predicted among non-blacks MDRD (S/P/Bld) [Vol rate/Area] 69 mL/min/{1.73_m2} Normal >60 [facility] Comment on above: Result Comment: Non- GFR Calc Performed By: #### L 501.1200, L500.4100, L500.4050, L501.9985, L501.9520, L502.0500, L100.0100 ####[facility] [address] [place], [address] Globulin (S) [Mass/Vol] 3.8 g/dL Normal 2.2-4.2 [facility] Comment on above: Performed By: #### L 501.1200, L500.4100, L500.4050, L501.9985, L501.9520, L502.0500, L100.0100 ####[facility] [address] [place], [address] Glucose [Mass/Vol] 84 mg/dL Normal 74-106 [facility] Comment on above: Performed By: #### L 501.1200, L500.4100, L500.4050, L501.9985, L501.9520, L502.0500, L100.0100 ####[facility] [address] [place], [address] Potassium [Moles/Vol] 4.4 mmol/L Normal 3.5-5.1 [facility] Comment on above: Performed By: #### L 501.1200, L500.4100, L500.4050, L501.9985, L501.9520, L502.0500, L100.0100 ####[facility] [address] [place], [address] Sodium [Moles/Vol] 140 mmol/L Normal 136-145 [facility] Comment on above: Performed By: #### L 501.1200, L500.4100, L500.4050, L501.9985, L501.9520, L502.0500, L100.0100 ####[facility] [address] [place], [address] T PROT 7.4 g/dL Normal 6.4-8.2 [facility] Comment on above: Performed By: #### L 501.1200, L500.4100, L500.4050, L501.9985, L501.9520, L502.0500, L100.0100 ####[facility] [address] [place], [address] Urea nitrogen [Mass/Vol] 11 mg/dL Normal 7-18 [facility] Comment on above: Performed By: #### L 501.1200, L500.4100, L500.4050, L501.9985, L501.9520, L502.0500, L100.0100 ####[facility] [address] [place], [address] Creatinine, Urine (random)on 11-22-2024 UR CREAT 276.00 mg/dL Normal NO RANGE EST. [facility] Comment on above: Performed By: #### L 501.1200, L500.4100, L500.4050, L501.9985, L501.9520, L502.0500, L100.0100 ####[facility] [address] [place], [address] Eosinophil percentageOrdered By: Carlos Chris on 11-22-2024 Eosinophils/100 WBC (Bld) 1.4 % 0-5 [facility] Erythrocyte distribution wid th ratioOrdered By: Carlos Aries on 11-22-2024 Erythrocyte distribution width (RBC) [Ratio] 12.4 % 11.6-14.6 [facility] Erythrocyte distribution wid th standard deviationOrdered By: Carlos Chris on 11-22-2024 Erythrocyte distribution width (RBC) [Entitic vol] 41.3 fL 35.1-43.9 [facility] Erythrocyte distribution width (RBC) [Ratio] 41.3 fl 35.1-43.9 [facility] Estimated glomerular filtrat ion rate (GFR) AmericanOrdered By: Carlos Chris on 11-22-2024 Estimated GFR (MDRD) Amer 83 mL/min >60 [facility] Comment on above: GFR Calc Glomerular filtration rate ( GFR) estimationOrdered By: Carlos Chris on 11-22-2024 Estimated GFR (MDRD) Non-Af Amer 69 mL/min >60 [facility] Comment on above: Non- GFR Calc GFR/1.73 sq M.predicted among non-blacks MDRD (S/P/Bld) [Vol rate/Area] 69 mL/min/{1.73_m2} >60 [facility] Comment on above: Non- GFR Calc Glucose measurementOrdered B y: Carlos Chris on 11-22-2024 Glucose [Mass/Vol] 84 mg/dL 74-106 [facility] Hematocrit Auto (Bld) [Volum e fraction]Ordered By: Carlos Chris on 11-22-2024 Hematocrit (Bld) [Volume fraction] 39.9 % 37-47 [facility] Hemoglobin A1con 11-22-2024 HbA1c (Bld) [Mass fraction] 5.4 % Normal 3.8-5.6 [facility] Comment on above: Result Comment: Norm al < 5.7 % Prediabetic 5.7 - 6.4 % Diabetic >or= 6.5 % Please note range changes. Performed By: #### L 501.1200, L500.4100, L500.4050, L501.9985, L501.9520, L502.0500, L100.0100 ####[facility] [address] [place], [address] Hemoglobin A1c percentageOrd ered By: Carlos Chris on 11-22-2024 HbA1c (Bld) [Mass fraction] 5.4 % 3.8-5.6 [facility] Comment on above: Normal < 5.7 % Predi abetic 5.7 - 6.4 % Diabetic >or= 6.5 % Please note range changes. Hemoglobin measurementOrdere d By: Carlos Chris on 11-22-2024 Hemoglobin (Bld) [Mass/Vol] 12.7 g/dL 12.0-15.0 [facility] High density lipoprotein (HD L) measurementOrdered By: Carlos Chris on 11-22-2024 Cholesterol in HDL [Mass/Vol] 55 mg/dL >40 [facility] Comment on above: The drugs N-Acetylcy steine and Metamizole may falsely depress this assay. Reference Range HDL <40 mg/dL Low HDL Cholesterol HDL >or= 60 mg/dL High HDL Cholesterol Immature granulocytes/100 WB C Auto (Bld)Ordered By: Carlos Chris on 11-22-2024 Immature granulocytes/100 WBC (Bld) 0.300 % 0.0-0.9 [facility] Comment on above: IG% - Immature Granu locytes (promyelocytes, myelocytes and metamyelocytes) > 1% indicates that a LEFT SHIFT is Present. Laboratory - Chemistry and C hemistry - challengeOrdered By: Carlos Chris on 11-22-2024 AST [Catalytic activity/Vol] 28 U/L 15-37 [facility] Lipid Profileon 11-22-2024 Cholesterol [Mass/Vol] 129 mg/dL Normal 200 [facility] Comment on above: Result Comment: <200 mg/dL Desirable 200-240 mg/dL Borderline >240 mg/dL High Risk Performed By: #### L 501.1200, L500.4100, L500.4050, L501.9985, L501.9520, L502.0500, L100.0100 ####[facility] [address] [place], [address] Cholesterol in HDL [Mass/Vol] 55 mg/dL Normal [facility] Comment on above: Result Comment: The drugs N-Acetylcysteine and Metamizole may falselydepress this assay. Reference Range HDL <40 mg/dL Low HDL Cholesterol HDL >or= 60 mg/dL High HDL Cholesterol Performed By: #### L 501.1200, L500.4100, L500.4050, L501.9985, L501.9520, L502.0500, L100.0100 ####[facility] [address] [place], [address] Cholesterol in LDL [Mass/Vol] 58 mg/dL Normal 0-130 [facility] Comment on above: Performed By: #### L 501.1200, L500.4100, L500.4050, L501.9985, L501.9520, L502.0500, L100.0100 ####[facility] [address] [place], [address] Cholesterol in VLDL [Mass/Vol] 16 mg/dL Normal 5-40 [facility] Comment on above: Performed By: #### L 501.1200, L500.4100, L500.4050, L501.9985, L501.9520, L502.0500, L100.0100 ####[facility] [address] [place], [address] Triglyceride [Mass/Vol] 79 mg/dL Normal [facility] Comment on above: Result Comment: The drugs N-Acetylcysteine and Metamizole may falselydepress this assay.Serum Triglycerides Reference Interval Normal <150 mg/dL Borderline high 150 - 199 mg/dL High 200 - 499 mg/dL Very High > or = 500 mg/dL Performed By: #### L 501.1200, L500.4100, L500.4050, L501.9985, L501.9520, L502.0500, L100.0100 ####[facility] [address] [place], [address] Low density lipoprotein (LDL ) cholesterol measurementOrdered By: Carlos Chris on 11-22-2024 Cholesterol in LDL [Mass/Vol] 58 mg/dL 0-130 [facility] Lymphocytes Auto (Unsp spec) [#/Vol]Ordered By: Carlos Chris on 11-22-2024 Lymphocytes (Bld) [#/Vol] 2.82 10*3/uL 0.83-4.51 [facility] Lymphocytes/100 WBC Auto (Un sp spec)Ordered By: Carlos Chris on 11-22-2024 Lymphocytes/100 WBC (Bld) 43.2 % High 19-41 [facility] MCV (mean corpuscular volume ) determinationOrdered By: Carlos Chris on 11-22-2024 MCV (RBC) [Entitic vol] 90.1 fL 81-99 [facility] Mean corpuscular hemoglobin (MCH) determinationOrdered By: Carlos Chris on 11-22-2024 MCH (RBC) [Entitic mass] 28.7 pg 27.0-32.0 [facility] Mean corpuscular hemoglobin concentration (MCHC) determinationOrdered By: Carlos Chris on 11-22-2024 MCHC (RBC) [Mass/Vol] 31.8 g/dL Low 32-36 [facility] Mean platelet volume determi nationOrdered By: Carlos Chris on 11-22-2024 Platelet mean volume (Bld) [Entitic vol] 10.5 fL 6.2-12.0 [facility] Microalbumin,Random Urineon 11-22-2024 MICROALBUMIN,UR 10.3 mg/L Normal NO RANGE EST. [facility] Comment on above: Performed By: #### L 501.1200, L500.4100, L500.4050, L501.9985, L501.9520, L502.0500, L100.0100 ####[facility] [address] [place], [address] Monocyte percentageOrdered B y: Carlos Chris on 11-22-2024 Monocytes/100 WBC (Bld) 8.6 % 0-10 [facility] Neutrophil percentageOrdered By: Carlos Chris on 11-22-2024 Neutrophils/100 WBC (Bld) 45.7 % Low 47-70 [facility] Nucleated red blood cell per centageOrdered By: Carlos Chris on 11-22-2024 Nucleated RBC/100 WBC (Bld) [Ratio] 0 % 0-5 [facility] Platelet countOrdered By: Ric Chris on 11-22-2024 Platelets (Bld) [#/Vol] 337 10*3/uL 150-450 [facility] Potassium measurementOrdered By: Carlos Chris on 11-22-2024 Potassium [Moles/Vol] 4.4 mmol/L 3.5-5.1 [facility] RBC Auto (Bld) [#/Vol]Ordere d By: Carlos Chris on 11-22-2024 RBC (Bld) [#/Vol] 4.43 10*6/uL 4.2-5.4 [facility] Random urine microalbumin me asurementOrdered By: Carlos Chris 11-22-2024 Urine Random Microalbumin 10.3 mg/L NO RANGE EST. [facility] Serum anion gap measurementO rdered By: Carlos Chris on 11-22-2024 Anion gap [Moles/Vol] 4 mmol/L Low 5-15 [facility] Serum globulin measurementOr dered By: Carlos Chris 11-22-2024 Globulin (S) [Mass/Vol] 3.8 g/dL 2.2-4.2 [facility] Serum or plasma alanine norton otransferase (ALT) measurementOrdered By: Carlos Chris 11-22-2024 ALT [Catalytic activity/Vol] 24 U/L 13-56 [facility] Serum or plasma albumin tara urement (mass/volume)Ordered By: Carlos Chris on 11-22-2024 Albumin [Mass/Vol] 3.6 g/dL 3.2-5.0 [facility] Serum or plasma alkaline dorothea sphatase measurementOrdered By: Carlos Chris 11-22-2024 ALP [Catalytic activity/Vol] 69 U/L 45-117 [facility] Serum or plasma calcium tara urement (mass/volume)Ordered By: Carlos Chris 11-22-2024 Calcium [Mass/Vol] 9.0 mg/dL 8.5-10.1 [facility] Serum or plasma cholesterol measurement (mass/volume)Ordered By: Carlos Chris on 11-22-2024 Cholesterol [Mass/Vol] 129 mg/dL <200 [facility] Comment on above: <200 mg/dL Desirable 200-240 mg/dL Borderline >240 mg/dL High Risk Serum or plasma creatinine m easurement (mass/volume)Ordered By: Carlos Chris 11-22-2024 Creatinine [Mass/Vol] 0.93 mg/dL 0.55-1.02 [facility] Comment on above: The validity of the calculated GFR & GFRAA in patients over 70 years has not been determined. Clinical correlation is essential. Serum or plasma thyroid stim ulating hormone (TSH) measurement (units/volume)Ordered By: Carlos Chris 11-22-2024 TSH Qn 0.205 uIU/mL Low 0.358-3.740 [facility] Serum or plasma urea nitroge n measurement (mass/volume)Ordered By: Carlos Chris 11-22-2024 Urea nitrogen [Mass/Vol] 11 mg/dL 7-18 [facility] Sodium levelOrdered By: Carlos Chris 11-22-2024 Sodium [Moles/Vol] 140 mmol/L 136-145 [facility] TSH QnOrdered By: Carlos Chris o n 11-22-2024 Thyroid Stimulating Hormone (TSH) 0.205 uIU/mL Low 0.358-3.740 [facility] Thyroid Stim Hormone (TSH)on 11-22-2024 TSH 0.205 uIU/mL Low 0.358-3.740 [facility] Comment on above: Performed By: #### L 501.1200, L500.4100, L500.4050, L501.9985, L501.9520, L502.0500, L100.0100 ####[facility] [address] [place], [address] Total proteinOrdered By: Carlos Chris on 11-22-2024 Protein [Mass/Vol] 7.4 g/dL 6.4-8.2 [facility] Triglycerides measurementOrd ered By: Carlos Chris on 11-22-2024 Triglyceride [Mass/Vol] 79 mg/dL <199 [facility] Comment on above: The drugs N-Acetylcy steine and Metamizole may falsely depress this assay.Serum Triglycerides Reference Interval Normal <150 mg/dL Borderline high 150 - 199 mg/dL High 200 - 499 mg/dL Very High > or = 500 mg/dL Urine creatinine measurement (mass/volume)Ordered By: Carlos Chris on 11-22-2024 Creatinine (U) [Mass/Vol] 276.00 mg/dL NO RANGE EST. [facility] Very low density lipoprotein (VLDL) cholesterol measurementOrdered By: Carlos Chris on 11-22-2024 Very low density lipoprotein (VLDL) cholesterol measurement 16 mg/dL 5-40 [facility] VLDL Cholesterol 16 mg/dL 5-40 [facility] White blood cell (WBC) count Ordered By: Carlos Chris on 11-22-2024 WBC (Bld) [#/Vol] 6.5 10*3/uL 4.4-11.0 [facility] Absolute lymphocyte countOrd ered By: Kristofer An on 11-20-2024 Lymphocytes Auto (Unsp spec) [#/Vol] 2.86 10*3/uL 0.83-4.51 [facility] Absolute neutrophil countOrd ered By: Kristofer An on 11-20-2024 Neutrophils (Bld) [#/Vol] 3.8 10*3/uL 2.0-7.7 [facility] Addendum DocumentOrdered By: Kristofer An on 11-20-2024 Serum Immunofixation Comments Comment . [facility] Comment on above: Protein electrophore sis scan will follow via computer,mail, or arc cutter delivery.Performed at: [address] [id number] Director: Marvin Lara PhD, Phone: [phone] Albumin Elph [Mass/Vol]Order ed By: Kristofer An on 11-20-2024 Albumin [Mass/Vol] 3.6 g/dL 2.9-4.4 [facility] Albumin to globulin ratioOrd ered By: Kristofer An on 11-20-2024 Albumin/Globulin [Mass ratio] 0.9 {ratio} 0.9-2.4 [facility] Alpha 1 globulin Elph [Mass/ Vol]Ordered By: Kristofer An on 11-20-2024 Tjchf-9-Lhjwmedxc (GALINA) 0.2 g/dL 0.0-0.4 [facility] Cigof-4-Efiklwpox (GALINA) 0.7 g/dL 0.4-1.0 [facility] Automated lymphocyte count a s percentage of total leukocytesOrdered By: Kristofer An on 11-20-2024 Lymphocytes/100 WBC Auto (Unsp spec) 39.2 % 19-41 [facility] Basophil percentageOrdered B y: Kirstofer An on 11-20-2024 Basophils/100 WBC (Bld) 0.7 % 0-1 [facility] Beta globulin Elph [Mass/Vol ]Ordered By: Kristofer An on 11-20-2024 Beta-Globulins (GALINA) 1.0 g/dL 0.7-1.3 [facility] Bilirubin, totalOrdered By: Kristofer An on 11-20-2024 Bilirubin [Mass/Vol] 0.90 mg/dL 0.20-1.00 [facility] Comment on above: For patients on eltr ombopag therapy, use of Dimension [place] TBIL is not recommended. Blood urea nitrogen (BUN)/cr eatinine ratioOrdered By: Kristofer An on 11-20-2024 Urea nitrogen/Creatinine [Mass ratio] 12.0 mg/mg 10-20 [facility] CBC W/Diff, Automatedon 11-10 Absolute Lymph 2.86 X10 3/uL Normal 0.83-4.51 [facility] Comment on above: Performed By: #### L 100.0100, L503.6075, L500.4050, L100.9950, L503.6550, L503.6150, L3100.3425, L504.2610 ####[facility] [address] [place], [address] Absolute Neut 3.8 X10 3/uL Normal 2.0-7.7 [facility] Comment on above: Performed By: #### L 100.0100, L503.6075, L500.4050, L100.9950, L503.6550, L503.6150, L3100.3425, L504.2610 ####[facility] [address] [place], [address] Basophils/100 WBC (Bld) 0.7 % Normal 0-1 [facility] Comment on above: Performed By: #### L 100.0100, L503.6075, L500.4050, L100.9950, L503.6550, L503.6150, L3100.3425, L504.2610 ####[facility] [address] [place], [address] Eosinophils/100 WBC (Bld) 1.4 % Normal 0-5 [facility] Comment on above: Performed By: #### L 100.0100, L503.6075, L500.4050, L100.9950, L503.6550, L503.6150, L3100.3425, L504.2610 ####[facility] [address] [place], [address] Erythrocyte distribution width (RBC) [Ratio] 12.3 % Normal 11.6-14.6 [facility] Comment on above: Performed By: #### L 100.0100, L503.6075, L500.4050, L100.9950, L503.6550, L503.6150, L3100.3425, L504.2610 ####[facility] [address] [place], [address] Hematocrit (Bld) [Volume fraction] 39.3 % Normal 37-47 [facility] Comment on above: Performed By: #### L 100.0100, L503.6075, L500.4050, L100.9950, L503.6550, L503.6150, L3100.3425, L504.2610 ####[facility] [address] [place], [address] Hemoglobin (Bld) [Mass/Vol] 13.0 g/dL Normal 12.0-15.0 [facility] Comment on above: Performed By: #### L 100.0100, L503.6075, L500.4050, L100.9950, L503.6550, L503.6150, L3100.3425, L504.2610 ####[facility] [address] [facility] [place], [address] IG% 0.300 Normal 0.0-0.9 [facility] Comment on above: Result Comment: IG% - Immature Granulocytes (promyelocytes, myelocytes andmetamyelocytes) > 1% indicates that a LEFT SHIFT is Present. Performed By: #### L 100.0100, L503.6075, L500.4050, L100.9950, L503.6550, L503.6150, L3100.3425, L504.2610 ####[facility] [address] [place], [address] Lymphocytes/100 WBC (Bld) 39.2 % Normal 19-41 [facility] Comment on above: Performed By: #### L 100.0100, L503.6075, L500.4050, L100.9950, L503.6550, L503.6150, L3100.3425, L504.2610 ####[facility] [address] [place], [address] MCH (RBC) [Entitic mass] 29.4 pg Normal 27.0-32.0 [facility] Comment on above: Performed By: #### L 100.0100, L503.6075, L500.4050, L100.9950, L503.6550, L503.6150, L3100.3425, L504.2610 ####[facility] [address] [place], [address] MCHC (RBC) [Mass/Vol] 33.1 g/dL Normal 32-36 [facility] Comment on above: Performed By: #### L 100.0100, L503.6075, L500.4050, L100.9950, L503.6550, L503.6150, L3100.3425, L504.2610 ####[facility] [address] [place], [address] MCV (RBC) [Entitic vol] 88.9 fL Normal 81-99 [facility] Comment on above: Performed By: #### L 100.0100, L503.6075, L500.4050, L100.9950, L503.6550, L503.6150, L3100.3425, L504.2610 ####[facility] [address] [place], [address] Monocytes/100 WBC (Bld) 5.8 % Normal 0-10 [facility] Comment on above: Performed By: #### L 100.0100, L503.6075, L500.4050, L100.9950, L503.6550, L503.6150, L3100.3425, L504.2610 ####[facility] [address] [place], [address] Neutrophils/100 WBC (Bld) 52.6 % Normal 47-70 [facility] Comment on above: Performed By: #### L 100.0100, L503.6075, L500.4050, L100.9950, L503.6550, L503.6150, L3100.3425, L504.2610 ####[facility] [address] [place], [address] Nucleated RBC (Bld) [#/Vol] 0 10*3/uL Normal 0-5 [facility] Comment on above: Performed By: #### L 100.0100, L503.6075, L500.4050, L100.9950, L503.6550, L503.6150, L3100.3425, L504.2610 ####[facility] [address] [place], [address] Platelet mean volume (Bld) [Entitic vol] 10.4 fL Normal 6.2-12.0 [facility] Comment on above: Performed By: #### L 100.0100, L503.6075, L500.4050, L100.9950, L503.6550, L503.6150, L3100.3425, L504.2610 ####[facility] [address] [place], [address] Platelets (Bld) [#/Vol] 328 10*3/uL Normal 150-450 [facility] Comment on above: Performed By: #### L 100.0100, L503.6075, L500.4050, L100.9950, L503.6550, L503.6150, L3100.3425, L504.2610 ####[facility] [address] [place], [address] RBC (Bld) [#/Vol] 4.42 10*6/uL Normal 4.2-5.4 [facility] Comment on above: Performed By: #### L 100.0100, L503.6075, L500.4050, L100.9950, L503.6550, L503.6150, L3100.3425, L504.2610 ####[facility] [address] [place], [address] RDW SD 40.2 fl Normal 35.1-43.9 [facility] Comment on above: Performed By: #### L 100.0100, L503.6075, L500.4050, L100.9950, L503.6550, L503.6150, L3100.3425, L504.2610 ####[facility] [address] [place], [place], [phone] WBC (Bld) [#/Vol] 7.3 10*3/uL Normal 4.4-11.0 [facility] Comment on above: Performed By: #### L 100.0100, L503.6075, L500.4050, L100.9950, L503.6550, L503.6150, L3100.3425, L504.2610 ####[facility] [address] [place], [address] Carbon dioxide measurementOr dered By: Kristofer An on 11-20-2024 CO2 [Moles/Vol] 27.0 mmol/L 21.0-32.0 [facility] Chloride measurementOrdered By: Kristofer An on 11-20-2024 Chloride [Moles/Vol] 105 mmol/L 98-107 [facility] Comprehensive Metabolic Prof ilon 11-20-2024 Albumin [Mass/Vol] 3.8 g/dL Normal 3.2-5.0 [facility] Comment on above: Performed By: #### L 100.0100, L503.6075, L500.4050, L100.9950, L503.6550, L503.6150, L3100.3425, L504.2610 ####[facility] [address] [place], [place], [phone] Albumin/Globulin [Mass ratio] 0.9 {ratio} Normal 0.9-2.4 [facility] Comment on above: Performed By: #### L 100.0100, L503.6075, L500.4050, L100.9950, L503.6550, L503.6150, L3100.3425, L504.2610 ####[facility] [address] [place], [address] ALK P 70 U/L Normal 45-117 [facility] Comment on above: Performed By: #### L 100.0100, L503.6075, L500.4050, L100.9950, L503.6550, L503.6150, L3100.3425, L504.2610 ####[facility] [address] [place], [address] ALT [Catalytic activity/Vol] 26 U/L Normal 13-56 [facility] Comment on above: Performed By: #### L 100.0100, L503.6075, L500.4050, L100.9950, L503.6550, L503.6150, L3100.3425, L504.2610 ####[facility] [address] [place], [address] AST [Catalytic activity/Vol] 25 U/L Normal 15-37 [facility] Comment on above: Performed By: #### L 100.0100, L503.6075, L500.4050, L100.9950, L503.6550, L503.6150, L3100.3425, L504.2610 ####[facility] [address] [place], [address] Bilirubin [Mass/Vol] 0.90 mg/dL Normal 0.20-1.00 [facility] Comment on above: Result Comment: For patients on eltrombopag therapy, use of Dimension [place] TBIL is not recommended. Performed By: #### L 100.0100, L503.6075, L500.4050, L100.9950, L503.6550, L503.6150, L3100.3425, L504.2610 ####[facility] [address] [place], [address] BUN/CRE 12.0 RATIO Normal 10-20 [facility] Comment on above: Performed By: #### L 100.0100, L503.6075, L500.4050, L100.9950, L503.6550, L503.6150, L3100.3425, L504.2610 ####[facility] [address] [place], [address] CA,Total 8.9 mg/dL Normal 8.5-10.1 [facility] Comment on above: Performed By: #### L 100.0100, L503.6075, L500.4050, L100.9950, L503.6550, L503.6150, L3100.3425, L504.2610 ####[facility] [address] [place], [address] Chloride [Moles/Vol] 105 mmol/L Normal 98-107 [facility] Comment on above: Performed By: #### L 100.0100, L503.6075, L500.4050, L100.9950, L503.6550, L503.6150, L3100.3425, L504.2610 ####[facility] [address] [place], [address] CO2 [Moles/Vol] 27.0 mmol/L Normal 21.0-32.0 [facility] Comment on above: Performed By: #### L 100.0100, L503.6075, L500.4050, L100.9950, L503.6550, L503.6150, L3100.3425, L504.2610 ####[facility] [address] [place], [address] Creatinine [Mass/Vol] 0.92 mg/dL Normal 0.55-1.02 [facility] Comment on above: Result Comment: The validity of the calculated GFR GFRAA in patients over70 years has not been determined. Clinical correlation isessential. Performed By: #### L 100.0100, L503.6075, L500.4050, L100.9950, L503.6550, L503.6150, L3100.3425, L504.2610 ####[facility] [address] [place], [address] EST GFR - AA 85 mL/min Normal >60 [facility] Comment on above: Result Comment: Afri can [place] GFR Calc Performed By: #### L 100.0100, L503.6075, L500.4050, L100.9950, L503.6550, L503.6150, L3100.3425, L504.2610 ####[facility] [address] [place], [place], [phone] GAP 6 Normal 5-15 [facility] Comment on above: Performed By: #### L 100.0100, L503.6075, L500.4050, L100.9950, L503.6550, L503.6150, L3100.3425, L504.2610 ####[facility] [address] [place], [place], [phone](163 GFR/1.73 sq M.predicted among non-blacks MDRD (S/P/Bld) [Vol rate/Area] 70 mL/min/{1.73_m2} Normal >60 [facility] Comment on above: Result Comment: Non- GFR Calc Performed By: #### L 100.0100, L503.6075, L500.4050, L100.9950, L503.6550, L503.6150, L3100.3425, L504.2610 ####[facility] [address] [place], [address] Globulin (S) [Mass/Vol] 4.1 g/dL Normal 2.2-4.2 [facility] Comment on above: Performed By: #### L 100.0100, L503.6075, L500.4050, L100.9950, L503.6550, L503.6150, L3100.3425, L504.2610 ####[facility] [address] [place], [address] Glucose [Mass/Vol] 84 mg/dL Normal 74-106 [facility] Comment on above: Performed By: #### L 100.0100, L503.6075, L500.4050, L100.9950, L503.6550, L503.6150, L3100.3425, L504.2610 ####[facility] [address] [place], [address] Potassium [Moles/Vol] 3.9 mmol/L Normal 3.5-5.1 [facility] Comment on above: Performed By: #### L 100.0100, L503.6075, L500.4050, L100.9950, L503.6550, L503.6150, L3100.3425, L504.2610 ####[facility] [address] [place], [address] Sodium [Moles/Vol] 138 mmol/L Normal 136-145 [facility] Comment on above: Performed By: #### L 100.0100, L503.6075, L500.4050, L100.9950, L503.6550, L503.6150, L3100.3425, L504.2610 ####[facility] [address] [place], [address] T PROT 7.9 g/dL Normal 6.4-8.2 [facility] Comment on above: Performed By: #### L 100.0100, L503.6075, L500.4050, L100.9950, L503.6550, L503.6150, L3100.3425, L504.2610 ####[facility] [address] [place], [place], [id number] Urea nitrogen [Mass/Vol] 11 mg/dL Normal 7-18 [facility] Comment on above: Performed By: #### L 100.0100, L503.6075, L500.4050, L100.9950, L503.6550, L503.6150, L3100.3425, L504.2610 ####[facility] [address] [place], [address] Eosinophil percentageOrdered By: Kristofer An on 11-20-2024 Eosinophils/100 WBC (Bld) 1.4 % 0-5 [facility] Erythrocyte distribution wid th ratioOrdered By: Kristofer An on 11-20-2024 Erythrocyte distribution width (RBC) [Ratio] 12.3 % 11.6-14.6 [facility] Erythrocyte distribution wid th standard deviationOrdered By: Kristofer An on 11-20-2024 Erythrocyte distribution width (RBC) [Entitic vol] 40.2 fL 35.1-43.9 [facility] Erythrocyte distribution width (RBC) [Ratio] 40.2 fl 35.1-43.9 [facility] Estimated glomerular filtrat ion rate (GFR) AmericanOrdered By: Kristofer An on 11-20-2024 Estimated GFR (MDRD) Amer 85 mL/min >60 [facility] Comment on above: GFR Calc Ferritinon 11-20-2024 Ferritin [Mass/Vol] 164 ng/mL Normal 8-252 [facility] Comment on above: Performed By: #### L 100.0100, L503.6075, L500.4050, L100.9950, L503.6550, L503.6150, L3100.3425, L504.2610 ####[facility] [address] [place], [address] Ferritin measurementOrdered By: Kristofer An on 11-20-2024 Ferritin [Mass/Vol] 164 ng/mL 8-252 [facility] Gamma globulin Elph [Mass/Vo l]Ordered By: Kristofer An on 11-20-2024 Gamma Globulins (GALINA) 1.7 g/dL 0.4-1.8 [facility] Gastroenterology Visit Repor ton 11-20-2024 Gastroenterology Visit Report Normal [facility] Glomerular filtration rate ( GFR) estimationOrdered By: Kristofer An on 11-20-2024 Estimated GFR (MDRD) Non-Af Amer 70 mL/min >60 [facility] Comment on above: Non- GFR Calc GFR/1.73 sq M.predicted among non-blacks MDRD (S/P/Bld) [Vol rate/Area] 70 mL/min/{1.73_m2} >60 [facility] Comment on above: Non- GFR Calc Glucose measurementOrdered B y: Kristofer An on 11-20-2024 Glucose [Mass/Vol] 84 mg/dL 74-106 [facility] Hematocrit Auto (Bld) [Volum e fraction]Ordered By: Kristofer An on 11-20-2024 Hematocrit (Bld) [Volume fraction] 39.3 % 37-47 [facility] Hemoglobin (Reticulocytes) [ Entitic mass]Ordered By: Kristofer An on 11-20-2024 Reticulocyte Hemoglobin Equivalent 33.8 pg 30-35 [facility] Hemoglobin measurementOrdere d By: Kristofer An on 11-20-2024 Hemoglobin (Bld) [Mass/Vol] 13.0 g/dL 12.0-15.0 [facility] IgA [Mass/Vol]Ordered By: Ra mayra An on 11-20-2024 Immunoglobulin A 413 mg/dL High 87-352 [facility] IgG [Mass/Vol]Ordered By: Ra mayra An on 11-20-2024 Immunoglobulin G 1518 mg/dL 586-1602 [facility] Immature granulocytes/100 WB C Auto (Bld)Ordered By: Kristofer An on 11-20-2024 Immature granulocytes/100 WBC (Bld) 0.300 % 0.0-0.9 [facility] Comment on above: IG% - Immature Granu locytes (promyelocytes, myelocytes and metamyelocytes) > 1% indicates that a LEFT SHIFT is Present. Immature reticulocyte fracti onOrdered By: Kristofer An on 11-20-2024 Immature Reticulocyte Fraction 3.60 % 3.00-15.90 [facility] Immunoglobulin M measurement Ordered By: Kristoferghassan An on 11-20-2024 Immunoglobulin M 296 mg/dL High 26-217 [facility] Interpretation IEP [Interp]O rdered By: Kristoferandrae nA on 11-20-2024 Immunofixation Screen Comment . [facility] Comment on above: No monoclonality det ected. Interpretation of serum or p lasma protein pattern by immunofixation (narrative resultOrdered By: Kristofer An on 11-20-2024 Protein Fractions Immunofixation Azar [Interp] Not Observed g/dL Not Observed [facility] Ironon 11-20-2024 Iron [Mass/Vol] 81 ug/dL Normal 50-170 [facility] Comment on above: Performed By: #### L 100.0100, L503.6075, L500.4050, L100.9950, L503.6550, L503.6150, L3100.3425, L504.2610 ####[facility] [address] [place], [address] Iron (Unsp spec) [Mass/Mass] Ordered By: Kristofer An on 11-20-2024 Iron [Mass/Vol] 81 ug/dL 50-170 [facility] Iron Binding Capacity,Totalo n 11-20-2024 TIBC 301 ug/dL Normal 250-450 [facility] Comment on above: Performed By: #### L 100.0100, L503.6075, L500.4050, L100.9950, L503.6550, L503.6150, L3100.3425, L504.2610 ####[facility] [address] [place], [address] Iron measurement (mass/mass) Ordered By: Kristofer An on 11-20-2024 Iron (Unsp spec) [Mass/Mass] 81 ug/dL 50-170 [facility] LDHon 11-20-2024 LDH 185 U/L Normal 84-246 [facility] Comment on above: Order Comment: 1 Performed By: #### L 100.0100, L503.6075, L500.4050, L100.9950, L503.6550, L503.6150, L3100.3425, L504.2610 ####[facility] [address] [place], [address] Laboratory - Chemistry and C hemistry - challengeOrdered By: Kristofer An on 11-20-2024 AST [Catalytic activity/Vol] 25 U/L 15-37 [facility] Lactate dehydrogenase (LDH) measurementOrdered By: Kristofer An on 11-20-2024 LDH [Catalytic activity/Vol] 185 U/L 84-246 [facility] Lymphocytes Auto (Unsp spec) [#/Vol]Ordered By: Kristofer An on 11-20-2024 Lymphocytes (Bld) [#/Vol] 2.86 10*3/uL 0.83-4.51 [facility] Lymphocytes/100 WBC Auto (Un sp spec)Ordered By: Kristofer An on 11-20-2024 Lymphocytes/100 WBC (Bld) 39.2 % 19-41 [facility] MCV (mean corpuscular volume ) determinationOrdered By: Kristofer An on 11-20-2024 MCV (RBC) [Entitic vol] 88.9 fL 81-99 [facility] Mean corpuscular hemoglobin (MCH) determinationOrdered By: Kristofer An on 11-20-2024 MCH (RBC) [Entitic mass] 29.4 pg 27.0-32.0 [facility] Mean corpuscular hemoglobin concentration (MCHC) determinationOrdered By: Kristofer An on 11-20-2024 MCHC (RBC) [Mass/Vol] 33.1 g/dL 32-36 [facility] Mean platelet volume determi nationOrdered By: Kristofer An on 11-20-2024 Platelet mean volume (Bld) [Entitic vol] 10.4 fL 6.2-12.0 [facility] Monocyte percentageOrdered B y: Kristofer An on 11-20-2024 Monocytes/100 WBC (Bld) 5.8 % 0-10 [facility] Neutrophil percentageOrdered By: Kristofer An on 11-20-2024 Neutrophils/100 WBC (Bld) 52.6 % 47-70 [facility] No Panel InformationOrdered By: Kristofer An on 11-20-2024 Addendum Document Comment . [facility] Comment on above: Protein electrophore sis scan will follow via computer,mail, or arc cutter delivery.Performed at: [address] [id number] Director: Marvin Lara PhD, Phone: [phone] Nucleated red blood cell per centageOrdered By: Kristofer An on 11-20-2024 Nucleated RBC/100 WBC (Bld) [Ratio] 0 % 0-5 [facility] Platelet countOrdered By: Ra mayra An on 11-20-2024 Platelets (Bld) [#/Vol] 328 10*3/uL 150-450 [facility] Potassium measurementOrdered By: Kristofer An on 11-20-2024 Potassium [Moles/Vol] 3.9 mmol/L 3.5-5.1 [facility] Protein Fractions Immunofixa tion Azar [Interp]Ordered By: Kristofer An on 11-20-2024 M-Jayro (GALINA) Not Observed g/dL Not Observed [facility] RBC Auto (Bld) [#/Vol]Ordere d By: Kristofer An on 11-20-2024 RBC (Bld) [#/Vol] 4.42 10*6/uL 4.2-5.4 [facility] Retic Panelon 11-20-2024 IM RET FRACTION 3.60 Normal 3.00-15.90 [facility] Comment on above: Performed By: #### L 100.0100, L503.6075, L500.4050, L100.9950, L503.6550, L503.6150, L3100.3425, L504.2610 ####[facility] [address] [place], [address] RET-HE 33.8 pg Normal 30-35 [facility] Comment on above: Performed By: #### L 100.0100, L503.6075, L500.4050, L100.9950, L503.6550, L503.6150, L3100.3425, L504.2610 ####[facility] [address] [place], [address] Retic Count 0.61 Normal 0.5-1.5 [facility] Comment on above: Performed By: #### L 100.0100, L503.6075, L500.4050, L100.9950, L503.6550, L503.6150, L3100.3425, L504.2610 ####[facility] [address] [place], [place], [phone] Reticulocyte hemoglobin equi valent (RET-He) measurementOrdered By: Kristofer An on 11-20-2024 Hemoglobin (Reticulocytes) [Entitic mass] 33.8 pg 30-35 [facility] Reticulocytes Auto (Bld) [#/ Vol]Ordered By: Kristofer An on 11-20-2024 Reticulocyte Count 0.61 % 0.5-1.5 [facility] Reticulocytes/100 RBC (Bld) 0.61 % 0.5-1.5 [facility] Serum albumin/globulin ratio Ordered By: Kristofer An on 11-20-2024 Albumin/Globulin (GALINA) 1.1 0.7-1.7 [facility] Serum anion gap measurementO rdered By: Kristofer An on 11-20-2024 Anion gap [Moles/Vol] 6 mmol/L 5-15 [facility] Serum globulin measurement ( mass/volume)Ordered By: Kristofer An on 11-20-2024 Globulin (S) [Mass/Vol] 3.5 g/dL 2.2-3.9 [facility] Serum or plasma IgA measurem ent (mass/volume)Ordered By: Kristofer An on 11-20-2024 IgA [Mass/Vol] 413 mg/dL High 87-352 [facility] Serum or plasma IgG measurem ent (mass/volume)Ordered By: Kristofer An on 11-20-2024 IgG [Mass/Vol] 1518 mg/dL 586-1602 [facility] Serum or plasma alanine norton otransferase (ALT) measurementOrdered By: Kristofer An on 11-20-2024 ALT [Catalytic activity/Vol] 26 U/L 13-56 [facility] Serum or plasma albumin tara urement (mass/volume)Ordered By: Kristofer An on 11-20-2024 Albumin [Mass/Vol] 3.8 g/dL 3.2-5.0 [facility] Serum or plasma alkaline dorothea sphatase measurementOrdered By: Kristofer An on 11-20-2024 ALP [Catalytic activity/Vol] 70 U/L 45-117 [facility] Serum or plasma alpha 1 glob ulin measurement by electrophoresis (mass/volume)Ordered By: Kristofer An on 11-20-2024 Alpha 1 globulin Elph [Mass/Vol] 0.2 g/dL 0.0-0.4 [facility] Alpha 1 globulin Elph [Mass/Vol] 0.7 g/dL 0.4-1.0 [facility] Serum or plasma beta globuli n measurement by electrophoresis (mass/volume)Ordered By: Kristofer An on 11-20-2024 Beta globulin Elph [Mass/Vol] 1.0 g/dL 0.7-1.3 [facility] Serum or plasma calcium tara urement (mass/volume)Ordered By: Kristofer An on 11-20-2024 Calcium [Mass/Vol] 8.9 mg/dL 8.5-10.1 [facility] Serum or plasma creatinine m easurement (mass/volume)Ordered By: Kristofer An on 11-20-2024 Creatinine [Mass/Vol] 0.92 mg/dL 0.55-1.02 [facility] Comment on above: The validity of the calculated GFR & GFRAA in patients over 70 years has not been determined. Clinical correlation is essential. Serum or plasma gamma globul in measurement by electrophoresis (mass/volume)Ordered By: Kristofer An on 11-20-2024 Gamma globulin Elph [Mass/Vol] 1.7 g/dL 0.4-1.8 [facility] Serum or plasma immunoelectr ophoresis interpretation (nominal result)Ordered By: Kristofer An on 11-20-2024 Interpretation IEP [Interp] Comment . [facility] Comment on above: No monoclonality det ected. Serum or plasma protein tara urement (mass/volume)Ordered By: Kristofer An on 11-20-2024 Protein [Mass/Vol] 7.1 g/dL 6.0-8.5 [facility] Serum or plasma urea nitroge n measurement (mass/volume)Ordered By: Kristofer An on 11-20-2024 Urea nitrogen [Mass/Vol] 11 mg/dL 7-18 [facility] Sodium levelOrdered By: Sumeet Herrera on 11-20-2024 Sodium [Moles/Vol] 138 mmol/L 136-145 [facility] TIBCOrdered By: Kristofer Pride nd on 11-20-2024 Total Iron Binding Capacity 301 ug/dL 250-450 [facility] Total proteinOrdered By: Oswaldo An on 11-20-2024 Protein [Mass/Vol] 7.9 g/dL 6.4-8.2 [facility] White blood cell (WBC) count Ordered By: Kristofer An on 11-20-2024 WBC (Bld) [#/Vol] 7.3 10*3/uL 4.4-11.0 [facility] Influenza virus A and B and SARS-CoV-2 (COVID-19) and Respiratory syncytial virus RNAOrdered By: Carlos Chris on 11-13-2024 SARS-CoV-2 (COVID-19) RNA GUERITA+probe Ql (Unsp spec) Influenzae A Abnormal [facility] SARS-CoV-2 (COVID-19) RNA GUERITA+probe Ql (Unsp spec) Influenzae A Abnormal [facility] M100.678on 11-13-2024 M100.678 Normal [facility] Comment on above: Performed By: #### M 100.678 ####[facility] [address] [place], [address] Discharge Instructionon 10-[address] [facility] Foot 2 Viewson 10-19-2024 Foot 2 Views Normal [facility] Foot min 3 Viewson 5 Foot min 3 Views Normal [facility] MR/POSTOP.ANEon 10-19-2024 MR/POSTOP.ANE Normal [facility] MR/[id number] 10-19-2024 MR/POSTOPAN2 Normal [facility] Operative Reporton Operative Report Normal [facility] T4 Free SerPl-mCncon 025 Free T4 [Mass/Vol] 1.9 ng/dL High 0.9-1.7 [facility] Comment on above: Order Comment: Specguillermina daugherty Type: BLOOD SPECIMEN Ordering Facility: [facility] Address: [address] [place] [address] Performed By: #### 3 024-7, 3016-3 #### [facility] CLIA [id number] [address] [place] [address] [place] TSH SerPl-aCncon 10-17-2024 TSH Qn 0.119 m[IU]/L Low 0.270-4.[address] [facility] Comment on above: Order Comment: Usha daugherty Type: BLOOD SPECIMEN Ordering Facility: [facility] Address: [address] [place] [address] Result Comment: If t he patient is , TSH reference range varies by gestational period: First Trimester (weeks 9-12): 0.180-2.990 mIU/L Second Trimester: 0.110-3.980 mIU/L Third Trimester: 0.480-4.710 mIU/L Massimo Dick et al. A Practical Approach for the Verifications and Determination of Site- and Trimester-Specific Reference Intervals for Thyroid Function tests in . Thyroid, 2019:29:3:412-420. Joselo E, et al. 2017 Guidelines of the [place] Thy[employer] for the Diagnosis and Management of Thyroid Disease during and the . Thyroid, 2017:27:3:315-389. Performed By: #### 3 024-7, 3016-3 #### [facility] CLIA [id number] [address] [place] [address] [place] MR/PAT.ANEon 10-15-2024 MR/PAT.ANE Normal [facility] Urine Cultureon 10-15-2024 URC Normal [facility] Comment on above: Performed By: #### M 100.2200 ####[facility] [address] [place], [address] Absolute neutrophil countOrd ered By: Vicenta Hernandez on 10-14-2024 Neutrophils (Bld) [#/Vol] 3.5 10*3/uL 2.0-7.7 [facility] Albumin to globulin ratioOrd ered By: Vicenta Hernandez on 10-14-2024 Albumin/Globulin [Mass ratio] 0.9 {ratio} 0.9-2.4 [facility] Basophil percentageOrdered B y: Vicenta Hernandez on 10-14-2024 Basophils/100 WBC (Bld) 0.6 % 0-1 [facility] Bilirubin, totalOrdered By: Vicenta Hernandez on 10-14-2024 Bilirubin [Mass/Vol] 1.00 mg/dL 0.20-1.00 [facility] Comment on above: For patients on eltr ombopag therapy, use of Dimension [place] TBIL is not recommended. Blood urea nitrogen (BUN)/cr eatinine ratioOrdered By: Vicenta Hernandez on 10-14-2024 Urea nitrogen/Creatinine [Mass ratio] 14.7 mg/mg 10-20 [facility] CBC W/Diff, Automatedon Absolute Lymph 3.90 X10 3/uL Normal 0.83-4.51 [facility] Comment on above: Performed By: #### L 501.9520, L501.2300, L100.0100, L500.4050, L501.5200 ####[facility] [id number] [place], [address] Absolute Neut 3.5 X10 3/uL Normal 2.0-7.7 [facility] Comment on above: Performed By: #### L 501.9520, L501.2300, L100.0100, L500.4050, L501.5200 ####[facility] [id number] [place], [address] Basophils/100 WBC (Bld) 0.6 % Normal 0-1 [facility] Comment on above: Performed By: #### L 501.9520, L501.2300, L100.0100, L500.4050, L501.5200 ####[facility] [id number] [place], [address] Eosinophils/100 WBC (Bld) 1.1 % Normal 0-5 [facility] Comment on above: Performed By: #### L 501.9520, L501.2300, L100.0100, L500.4050, L501.5200 ####[facility] [id number] [place], [address] Erythrocyte distribution width (RBC) [Ratio] 12.6 % Normal 11.6-14.6 [facility] Comment on above: Performed By: #### L 501.9520, L501.2300, L100.0100, L500.4050, L501.5200 ####[facility] [id number] [place], [address] Hematocrit (Bld) [Volume fraction] 33.6 % Low 37-47 [facility] Comment on above: Performed By: #### L 501.9520, L501.2300, L100.0100, L500.4050, L501.5200 ####[facility] [id number] [place], [address] Hemoglobin (Bld) [Mass/Vol] 10.9 g/dL Low 12.0-15.0 [facility] Comment on above: Performed By: #### L 501.9520, L501.2300, L100.0100, L500.4050, L501.5200 ####[facility] [id number] [place], [address] IG% 0.100 Normal 0.0-0.9 [facility] Comment on above: Result Comment: IG% - Immature Granulocytes (promyelocytes, myelocytes andmetamyelocytes) > 1% indicates that a LEFT SHIFT is Present. Performed By: #### L 501.9520, L501.2300, L100.0100, L500.4050, L501.5200 ####[facility] [address] [place], [address] Lymphocytes/100 WBC (Bld) 48.2 % High 19-41 [facility] Comment on above: Performed By: #### L 501.9520, L501.2300, L100.0100, L500.4050, L501.5200 ####[facility] [address] [place], [address] MCH (RBC) [Entitic mass] 29.8 pg Normal 27.0-32.0 [facility] Comment on above: Performed By: #### L 501.9520, L501.2300, L100.0100, L500.4050, L501.5200 ####[facility] [address] [place], [address] MCHC (RBC) [Mass/Vol] 32.4 g/dL Normal 32-36 [facility] Comment on above: Performed By: #### L 501.9520, L501.2300, L100.0100, L500.4050, L501.5200 ####[facility] [address] [place], [address] MCV (RBC) [Entitic vol] 91.8 fL Normal 81-99 [facility] Comment on above: Performed By: #### L 501.9520, L501.2300, L100.0100, L500.4050, L501.5200 ####[facility] [address] [place], [address] Monocytes/100 WBC (Bld) 6.6 % Normal 0-10 [facility] Comment on above: Performed By: #### L 501.9520, L501.2300, L100.0100, L500.4050, L501.5200 ####[facility] [address] [place], [address] Neutrophils/100 WBC (Bld) 43.4 % Low 47-70 [facility] Comment on above: Performed By: #### L 501.9520, L501.2300, L100.0100, L500.4050, L501.5200 ####[facility] [address] [place], [address] Nucleated RBC (Bld) [#/Vol] 0 10*3/uL Normal 0-5 [facility] Comment on above: Performed By: #### L 501.9520, L501.2300, L100.0100, L500.4050, L501.5200 ####[facility] [address] [place], [address] Platelet mean volume (Bld) [Entitic vol] 10.6 fL Normal 6.2-12.0 [facility] Comment on above: Performed By: #### L 501.9520, L501.2300, L100.0100, L500.4050, L501.5200 ####[facility] [address] [place], [address] Platelets (Bld) [#/Vol] 237 10*3/uL Normal 150-450 [facility] Comment on above: Performed By: #### L 501.9520, L501.2300, L100.0100, L500.4050, L501.5200 ####[facility] [address] [place], [address] RBC (Bld) [#/Vol] 3.66 10*6/uL Low 4.2-5.4 [facility] Comment on above: Performed By: #### L 501.9520, L501.2300, L100.0100, L500.4050, L501.5200 ####[facility] [address] [place], [address] RDW SD 42.2 fl Normal 35.1-43.9 [facility] Comment on above: Performed By: #### L 501.9520, L501.2300, L100.0100, L500.4050, L501.5200 ####[facility] [address] [place], [address] WBC (Bld) [#/Vol] 8.1 10*3/uL Normal 4.4-11.0 [facility] Comment on above: Performed By: #### L 501.9520, L501.2300, L100.0100, L500.4050, L501.5200 ####[facility] [address] [place], [address] Carbon dioxide measurementOr dered By: Vicenta Hernandez on 10-14-2024 CO2 [Moles/Vol] 27.0 mmol/L 21.0-32.0 [facility] Chloride measurementOrdered By: Vicenta Hernandez on 10-14-2024 Chloride [Moles/Vol] 110 mmol/L High 98-107 [facility] Comprehensive Metabolic Prof ilon 10-14-2024 Albumin [Mass/Vol] 2.8 g/dL Low 3.2-5.0 [facility] Comment on above: Performed By: #### L 501.9520, L501.2300, L100.0100, L500.4050, L501.5200 ####[facility] [address] [place], [address] Albumin/Globulin [Mass ratio] 0.9 {ratio} Normal 0.9-2.4 [facility] Comment on above: Performed By: #### L 501.9520, L501.2300, L100.0100, L500.4050, L501.5200 ####[facility] [address] [place], [address] ALK P 64 U/L Normal 45-117 [facility] Comment on above: Performed By: #### L 501.9520, L501.2300, L100.0100, L500.4050, L501.5200 ####[facility] [address] [place], [address] ALT [Catalytic activity/Vol] 22 U/L Normal 13-56 [facility] Comment on above: Performed By: #### L 501.9520, L501.2300, L100.0100, L500.4050, L501.5200 ####[facility] [address] [place], [address] AST [Catalytic activity/Vol] 19 U/L Normal 15-37 [facility] Comment on above: Performed By: #### L 501.9520, L501.2300, L100.0100, L500.4050, L501.5200 ####[facility] [address] [place], [address] Bilirubin [Mass/Vol] 1.00 mg/dL Normal 0.20-1.00 [facility] Comment on above: Result Comment: For patients on eltrombopag therapy, use of Dimension [place] TBIL is not recommended. Performed By: #### L 501.9520, L501.2300, L100.0100, L500.4050, L501.5200 ####[facility] [address] [place], [address] BUN/CRE 14.7 RATIO Normal 10-20 [facility] Comment on above: Performed By: #### L 501.9520, L501.2300, L100.0100, L500.4050, L501.5200 ####[facility] [address] [place], [address] CA,Total 8.2 mg/dL Low 8.5-10.1 [facility] Comment on above: Performed By: #### L 501.9520, L501.2300, L100.0100, L500.4050, L501.5200 ####[facility] [address] [place], [address] Chloride [Moles/Vol] 110 mmol/L High 98-107 [facility] Comment on above: Performed By: #### L 501.9520, L501.2300, L100.0100, L500.4050, L501.5200 ####[facility] [address] [place], [address] CO2 [Moles/Vol] 27.0 mmol/L Normal 21.0-32.0 [facility] Comment on above: Performed By: #### L 501.9520, L501.2300, L100.0100, L500.4050, L501.5200 ####[facility] [address] [place], [address] Creatinine [Mass/Vol] 0.82 mg/dL Normal 0.55-1.02 [facility] Comment on above: Result Comment: The validity of the calculated GFR GFRAA in patients over70 years has not been determined. Clinical correlation isessential. Performed By: #### L 501.9520, L501.2300, L100.0100, L500.4050, L501.5200 ####[facility] [address] [place], [address] ECRCL 67.67 ml/min Normal [facility] Comment on above: Performed By: #### L 501.9520, L501.2300, L100.0100, L500.4050, L501.5200 ####[facility] [address] [place], [address] EST GFR - AA 96 mL/min Normal >60 [facility] Comment on above: Result Comment: Afri can Trin[place] GFR Calc Performed By: #### L 501.9520, L501.2300, L100.0100, L500.4050, L501.5200 ####[facility] [address] [place], [address] GAP 3 Low 5-15 [facility] Comment on above: Performed By: #### L 501.9520, L501.2300, L100.0100, L500.4050, L501.5200 ####[facility] [address] [place], [address] GFR/1.73 sq M.predicted among non-blacks MDRD (S/P/Bld) [Vol rate/Area] 80 mL/min/{1.73_m2} Normal >60 [facility] Comment on above: Result Comment: Non- GFR Calc Performed By: #### L 501.9520, L501.2300, L100.0100, L500.4050, L501.5200 ####[facility] [address] [place], [address] Globulin (S) [Mass/Vol] 3.2 g/dL Normal 2.2-4.2 [facility] Comment on above: Performed By: #### L 501.9520, L501.2300, L100.0100, L500.4050, L501.5200 ####[facility] [address] [place], [address] Glucose [Mass/Vol] 76 mg/dL Normal 74-106 [facility] Comment on above: Performed By: #### L 501.9520, L501.2300, L100.0100, L500.4050, L501.5200 ####[facility] [address] [place], [address] Potassium [Moles/Vol] 4.3 mmol/L Normal 3.5-5.1 [facility] Comment on above: Performed By: #### L 501.9520, L501.2300, L100.0100, L500.4050, L501.5200 ####[facility] [address] [place], [address] Sodium [Moles/Vol] 140 mmol/L Normal 136-145 [facility] Comment on above: Performed By: #### L 501.9520, L501.2300, L100.0100, L500.4050, L501.5200 ####[facility] [address] [place], [address] T PROT 6.0 g/dL Low 6.4-8.2 [facility] Comment on above: Performed By: #### L 501.9520, L501.2300, L100.0100, L500.4050, L501.5200 ####[facility] [address] [place], [address] Urea nitrogen [Mass/Vol] 12 mg/dL Normal 7-18 [facility] Comment on above: Performed By: #### L 501.9520, L501.2300, L100.0100, L500.4050, L501.5200 ####[facility] [address] [place], [address] Discharge Instructionon -[address] [facility] Eosinophil percentageOrdered By: Vicenta Hernandez on 10-14-2024 Eosinophils/100 WBC (Bld) 1.1 % 0-5 [facility] Erythrocyte distribution wid th ratioOrdered By: Vicenta Hernandez on 10-14-2024 Erythrocyte distribution width (RBC) [Ratio] 12.6 % 11.6-14.6 [facility] Erythrocyte distribution wid th standard deviationOrdered By: Vicenta Hernandez on 10-14-2024 Erythrocyte distribution width (RBC) [Entitic vol] 42.2 fL 35.1-43.9 [facility] Estimated glomerular filtrat ion rate (GFR) AmericanOrdered By: Vicenta Hernandez on 10-14-2024 Estimated GFR (MDRD) Amer 96 mL/min >60 [facility] Comment on above: GFR Calc Estimation of creatinine jamie aranceOrdered By: Vicenta Hernandez on 10-14-2024 Estimated Creatinine Clearance Calc 67.67 ml/min [facility] Glomerular filtration rate ( GFR) estimationOrdered By: Vicenta Hernandez on 10-14-2024 Estimated GFR (MDRD) Non-Af Amer 80 mL/min >60 [facility] Comment on above: Non- GFR Calc Glucose measurementOrdered B y: Vicenta Hernandez on 10-14-2024 Glucose [Mass/Vol] 76 mg/dL 74-106 [facility] Hematocrit Auto (Bld) [Volum e fraction]Ordered By: Vicenta Hernandez on 10-14-2024 Hematocrit (Bld) [Volume fraction] 33.6 % Low 37-47 [facility] Hemoglobin measurementOrdere d By: Vicenta Hernandez on 10-14-2024 Hemoglobin (Bld) [Mass/Vol] 10.9 g/dL Low 12.0-15.0 [facility] Immature granulocytes/100 WB C Auto (Bld)Ordered By: Vicenta Hernandez on 10-14-2024 Immature granulocytes/100 WBC (Bld) 0.100 % 0.0-0.9 [facility] Comment on above: IG% - Immature Granu locytes (promyelocytes, myelocytes and metamyelocytes) > 1% indicates that a LEFT SHIFT is Present. Laboratory - Chemistry and C hemistry - challengeOrdered By: Vicenta Hernandez on 10-14-2024 AST [Catalytic activity/Vol] 19 U/L 15-37 [facility] Lymphocytes Auto (Unsp spec) [#/Vol]Ordered By: Vicenta Hernandez on 10-14-2024 Lymphocytes (Bld) [#/Vol] 3.90 10*3/uL 0.83-4.51 [facility] Lymphocytes/100 WBC Auto (Un sp spec)Ordered By: Vicenta Hernandez on 10-14-2024 Lymphocytes/100 WBC (Bld) 48.2 % High 19-41 [facility] MCV (mean corpuscular volume ) determinationOrdered By: Vicenta Hernandez on 10-14-2024 MCV (RBC) [Entitic vol] 91.8 fL 81-99 [facility] Magnesiumon 10-14-2024 Magnesium [Mass/Vol] 2.0 mg/dL Normal 1.6-2.6 [facility] Comment on above: Performed By: #### L 501.9520, L501.2300, L100.0100, L500.4050, L501.5200 ####[facility] [address] [place], [address] Magnesium measurementOrdered By: Vicenta Hernandez on 10-14-2024 Magnesium [Mass/Vol] 2.0 mg/dL 1.6-2.6 [facility] Mean corpuscular hemoglobin (MCH) determinationOrdered By: Vicenta Hernandez on 10-14-2024 MCH (RBC) [Entitic mass] 29.8 pg 27.0-32.0 [facility] Mean corpuscular hemoglobin concentration (MCHC) determinationOrdered By: Vicenta Hernandez on 10-14-2024 MCHC (RBC) [Mass/Vol] 32.4 g/dL 32-36 [facility] Mean platelet volume determi nationOrdered By: Vicenta Hernandez on 10-14-2024 Platelet mean volume (Bld) [Entitic vol] 10.6 fL 6.2-12.0 [facility] Monocyte percentageOrdered B y: Vicenta Hernandez on 10-14-2024 Monocytes/100 WBC (Bld) 6.6 % 0-10 [facility] Neutrophil percentageOrdered By: Vicenta Hernandez on 10-14-2024 Neutrophils/100 WBC (Bld) 43.4 % Low 47-70 [facility] Nucleated red blood cell per centageOrdered By: Vicenta Hernandez on 10-14-2024 Nucleated RBC/100 WBC (Bld) [Ratio] 0 % 0-5 [facility] Phosphoruson 10-14-2024 Phosphate [Mass/Vol] 3.6 mg/dL Normal 2.5-4.9 [facility] Comment on above: Performed By: #### L 501.9520, L501.2300, L100.0100, L500.4050, L501.5200 ####[facility] [address] [place], [address] Phosphorus measurementOrdere d By: Vicenta Hernandez on 10-14-2024 Phosphorus Level 3.6 mg/dL 2.5-4.9 [facility] Platelet countOrdered By: Delvin Hernandez on 10-14-2024 Platelets (Bld) [#/Vol] 237 10*3/uL 150-450 [facility] Potassium measurementOrdered By: Vicenta Hernandez on 10-14-2024 Potassium [Moles/Vol] 4.3 mmol/L 3.5-5.1 [facility] RBC Auto (Bld) [#/Vol]Ordere d By: Vicenta Hernandez on 10-14-2024 RBC (Bld) [#/Vol] 3.66 10*6/uL Low 4.2-5.4 [facility] Serum anion gap measurementO rdered By: Vicenta Hernandez on 10-14-2024 Anion gap [Moles/Vol] 3 mmol/L Low 5-15 [facility] Serum globulin measurementOr dered By: Vicenta Hernandez on 10-14-2024 Globulin (S) [Mass/Vol] 3.2 g/dL 2.2-4.2 [facility] Serum or plasma alanine norton otransferase (ALT) measurementOrdered By: Vicenta Hernandez on 10-14-2024 ALT [Catalytic activity/Vol] 22 U/L 13-56 [facility] Serum or plasma albumin tara urement (mass/volume)Ordered By: Vicenta Hernandez on 10-14-2024 Albumin [Mass/Vol] 2.8 g/dL Low 3.2-5.0 [facility] Serum or plasma alkaline dorothea sphatase measurementOrdered By: Vicenta Hernandez on 10-14-2024 ALP [Catalytic activity/Vol] 64 U/L 45-117 [facility] Serum or plasma calcium tara urement (mass/volume)Ordered By: Vicenta Hernandez on 10-14-2024 Calcium [Mass/Vol] 8.2 mg/dL Low 8.5-10.1 [facility] Serum or plasma creatinine m easurement (mass/volume)Ordered By: Vicenta Hernandez on 10-14-2024 Creatinine [Mass/Vol] 0.82 mg/dL 0.55-1.02 [facility] Comment on above: The validity of the calculated GFR & GFRAA in patients over 70 years has not been determined. Clinical correlation is essential. Serum or plasma urea nitroge n measurement (mass/volume)Ordered By: Vicenta Hernandez on 10-14-2024 Urea nitrogen [Mass/Vol] 12 mg/dL 7-18 [facility] Sodium levelOrdered By: Maribell Hernandez on 10-14-2024 Sodium [Moles/Vol] 140 mmol/L 136-145 [facility] TSH QnOrdered By: Vicenta Saunders on 10-14-2024 Thyroid Stimulating Hormone (TSH) 0.093 uIU/mL Low 0.358-3.740 [facility] Thyroid Stim Hormone (TSH)on 10-14-2024 TSH 0.093 uIU/mL Low 0.358-3.740 [facility] Comment on above: Performed By: #### L 501.9520, L501.2300, L100.0100, L500.4050, L501.5200 ####[facility] [address] [place], [address] Total proteinOrdered By: Zoey Hernandez on 10-14-2024 Protein [Mass/Vol] 6.0 g/dL Low 6.4-8.2 [facility] White blood cell (WBC) count Ordered By: Vicenta Hernandez on 10-14-2024 WBC (Bld) [#/Vol] 8.1 10*3/uL 4.4-11.0 [facility] Abdomen/Pelvis WITH Contrast on 10-13-2024 Abdomen/Pelvis WITH Contrast Normal [facility] Beta HCG ( test) Ql Ordered By: Ramirez Stanley on 10-13-2024 Serum Test, Qualitative Negative [facility] Bilirubin Test strip Ql (U)O rdered By: Ramirez Stanley on 10-13-2024 Bilirubin Ql (U) Negative Negative [facility] CBC W/Diff, Automatedon Absolute Lymph 1.84 X10 3/uL Normal 0.83-4.51 [facility] Comment on above: Performed By: #### L 700.6800, L500.4050, L100.0100 ####[facility] [address] [place], [address] Absolute Neut 7.5 X10 3/uL Normal 2.0-7.7 [facility] Comment on above: Performed By: #### L 700.6800, L500.4050, L100.0100 ####[facility] [address] [place], [address] Basophils/100 WBC (Bld) 0.5 % Normal 0-1 [facility] Comment on above: Performed By: #### L 700.6800, L500.4050, L100.0100 ####[facility] [address] [place], [address] Eosinophils/100 WBC (Bld) 0.2 % Normal 0-5 [facility] Comment on above: Performed By: #### L 700.6800, L500.4050, L100.0100 ####[facility] [address] [place], [address] Erythrocyte distribution width (RBC) [Ratio] 12.5 % Normal 11.6-14.6 [facility] Comment on above: Performed By: #### L 700.6800, L500.4050, L100.0100 ####[facility] [address] [place], [address] Hematocrit (Bld) [Volume fraction] 40.5 % Normal 37-47 [facility] Comment on above: Performed By: #### L 700.6800, L500.4050, L100.0100 ####[facility] [address] [place], [address] Hemoglobin (Bld) [Mass/Vol] 13.1 g/dL Normal 12.0-15.0 [facility] Comment on above: Performed By: #### L 700.6800, L500.4050, L100.0100 ####[facility] [address] [place], [address] IG% 0.300 Normal 0.0-0.9 [facility] Comment on above: Result Comment: IG% - Immature Granulocytes (promyelocytes, myelocytes andmetamyelocytes) > 1% indicates that a LEFT SHIFT is Present. Performed By: #### L 700.6800, L500.4050, L100.0100 ####[facility] [address] [place], [address] Lymphocytes/100 WBC (Bld) 18.8 % Low 19-41 [facility] Comment on above: Performed By: #### L 700.6800, L500.4050, L100.0100 ####[facility] [address] [place], [address] MCH (RBC) [Entitic mass] 29.5 pg Normal 27.0-32.0 [facility] Comment on above: Performed By: #### L 700.6800, L500.4050, L100.0100 ####[facility] [address] [place], [address] MCHC (RBC) [Mass/Vol] 32.3 g/dL Normal 32-36 [facility] Comment on above: Performed By: #### L 700.6800, L500.4050, L100.0100 ####[facility] [address] [place], [address] MCV (RBC) [Entitic vol] 91.2 fL Normal 81-99 [facility] Comment on above: Performed By: #### L 700.6800, L500.4050, L100.0100 ####[facility] [address] [place], [address] Monocytes/100 WBC (Bld) 3.6 % Normal 0-10 [facility] Comment on above: Performed By: #### L 700.6800, L500.4050, L100.0100 ####[facility] [address] [place], [address] Neutrophils/100 WBC (Bld) 76.6 % High 47-70 [facility] Comment on above: Performed By: #### L 700.6800, L500.4050, L100.0100 ####[facility] [address] [place], [address] Nucleated RBC (Bld) [#/Vol] 0 10*3/uL Normal 0-5 [facility] Comment on above: Performed By: #### L 700.6800, L500.4050, L100.0100 ####[facility] [address] [place], [address] Platelet mean volume (Bld) [Entitic vol] 10.4 fL Normal 6.2-12.0 [facility] Comment on above: Performed By: #### L 700.6800, L500.4050, L100.0100 ####[facility] [address] [place], [address] Platelets (Bld) [#/Vol] 286 10*3/uL Normal 150-450 [facility] Comment on above: Performed By: #### L 700.6800, L500.4050, L100.0100 ####[facility] [address] [place], [address] RBC (Bld) [#/Vol] 4.44 10*6/uL Normal 4.2-5.4 [facility] Comment on above: Performed By: #### L 700.6800, L500.4050, L100.0100 ####[facility] [address] [place], [address] RDW SD 41.5 fl Normal 35.1-43.9 [facility] Comment on above: Performed By: #### L 700.6800, L500.4050, L100.0100 ####[facility] [address] [place], [address] WBC (Bld) [#/Vol] 9.8 10*3/uL Normal 4.4-11.0 [facility] Comment on above: Performed By: #### L 700.6800, L500.4050, L100.0100 ####[facility] [address] [place], [address] Comprehensive Metabolic Prof ilon 10-13-2024 Albumin [Mass/Vol] 3.7 g/dL Normal 3.2-5.0 [facility] Comment on above: Performed By: #### L 700.6800, L500.4050, L100.0100 ####[facility] [address] [place], [address] Albumin/Globulin [Mass ratio] 0.9 {ratio} Normal 0.9-2.4 [facility] Comment on above: Performed By: #### L 700.6800, L500.4050, L100.0100 ####[facility] [address] [place], [address] ALK P 87 U/L Normal 45-117 [facility] Comment on above: Performed By: #### L 700.6800, L500.4050, L100.0100 ####[facility] [address] [place], [address] ALT [Catalytic activity/Vol] 30 U/L Normal 13-56 [facility] Comment on above: Performed By: #### L 700.6800, L500.4050, L100.0100 ####[facility] [address] [place], [address] AST [Catalytic activity/Vol] 26 U/L Normal 15-37 [facility] Comment on above: Performed By: #### L 700.6800, L500.4050, L100.0100 ####[facility] [address] [place], [address] Bilirubin [Mass/Vol] 0.80 mg/dL Normal 0.20-1.00 [facility] Comment on above: Result Comment: For patients on eltrombopag therapy, use of Dimension [place] TBIL is not recommended. Performed By: #### L 700.6800, L500.4050, L100.0100 ####[facility] [address] [place], [address] BUN/CRE 12.7 RATIO Normal 10-20 [facility] Comment on above: Performed By: #### L 700.6800, L500.4050, L100.0100 ####[facility] [address] [place], [address] CA,Total 8.7 mg/dL Normal 8.5-10.1 [facility] Comment on above: Performed By: #### L 700.6800, L500.4050, L100.0100 ####[facility] [address] [place], [address] Chloride [Moles/Vol] 110 mmol/L High 98-107 [facility] Comment on above: Performed By: #### L 700.6800, L500.4050, L100.0100 ####[facility] [address] [place], [address] CO2 [Moles/Vol] 26.0 mmol/L Normal 21.0-32.0 [facility] Comment on above: Performed By: #### L 700.6800, L500.4050, L100.0100 ####[facility] [address] [place], [address] Creatinine [Mass/Vol] 1.02 mg/dL Normal 0.55-1.02 [facility] Comment on above: Result Comment: The validity of the calculated GFR GFRAA in patients over70 years has not been determined. Clinical correlation isessential. Performed By: #### L 700.6800, L500.4050, L100.0100 ####[facility] [address] [place], [address] ECRCL 58.23 ml/min Normal [facility] Comment on above: Performed By: #### L 700.6800, L500.4050, L100.0100 ####[facility] [address] [place], [address] EST GFR - AA 75 mL/min Normal >60 [facility] Comment on above: Result Comment: Afri can [place] GFR Calc Performed By: #### L 700.6800, L500.4050, L100.0100 ####[facility] [address] [place], [address] GAP 3 Low 5-15 [facility] Comment on above: Performed By: #### L 700.6800, L500.4050, L100.0100 ####[facility] [address] [place], [address] GFR/1.73 sq M.predicted among non-blacks MDRD (S/P/Bld) [Vol rate/Area] 62 mL/min/{1.73_m2} Normal >60 [facility] Comment on above: Result Comment: Non- GFR Calc Performed By: #### L 700.6800, L500.4050, L100.0100 ####[facility] [address] [place], [address] Globulin (S) [Mass/Vol] 4.1 g/dL Normal 2.2-4.2 [facility] Comment on above: Performed By: #### L 700.6800, L500.4050, L100.0100 ####[facility] [address] [place], [address] Glucose [Mass/Vol] 101 mg/dL Normal 74-106 [facility] Comment on above: Result Comment: Fast ing Glucose result from 100 to 125 mg/dLsuggests IMPAIRED HOMEOSTASIS per A.D.A. criteria. Performed By: #### L 700.6800, L500.4050, L100.0100 ####[facility] [address] [place], [address] Potassium [Moles/Vol] 4.9 mmol/L Normal 3.5-5.1 [facility] Comment on above: Performed By: #### L 700.6800, L500.4050, L100.0100 ####[facility] [address] [place], [address] Sodium [Moles/Vol] 139 mmol/L Normal 136-145 [facility] Comment on above: Performed By: #### L 700.6800, L500.4050, L100.0100 ####[facility] [address] [place], [address] T PROT 7.8 g/dL Normal 6.4-8.2 [facility] Comment on above: Performed By: #### L 700.6800, L500.4050, L100.0100 ####[facility] [address] [place], [address] Urea nitrogen [Mass/Vol] 13 mg/dL Normal 7-18 [facility] Comment on above: Performed By: #### L 700.6800, L500.4050, L100.0100 ####[facility] [id number] [place], [address] Emergency Department Summary on 10-13-2024 Emergency Department Summary Normal [facility] Epithelial cells.squamous LM Ql (Urine sed)Ordered By: Ramirez Stanley on 10-13-2024 Epithelial cells.squamous LM.HPF (Urine sed) [#/Area] 0 /[HPF] 5-10 [facility] Glucose Ql (U)Ordered By: Abebe Stanley on 10-13-2024 Urine Glucose (UA) Normal mg/dl Normal [facility] H AND P Exam - [facility] 10-13-2024 H&P Exam - Hospitalist Normal [facility] Ketones Test strip Ql (U)Ord ered By: Ramirez Stanley on 10-13-2024 Ketones Ql (U) Negative Negative [facility] Lipaseon 10-13-2024 Lipase [Catalytic activity/Vol] 118 U/L High 13-75 [facility] Comment on above: Result Comment: Antonia santos note:LIPASE revised reference range effective 23.New Lipase methodology. Expected to produce lower valuesthan the previous assay method.NEW Reference Range: 13 - 75 U/L Performed By: #### L 501.2450 ####[facility] [id number] [place], [address] Lipase measurementOrdered By : Ramirez Stanley on 10-13-2024 Lipase [Catalytic activity/Vol] 118 U/L High 13-75 [facility] Comment on above: Please note:LIPASE r evised reference range effective 23. New Lipase methodology. Expected to produce lower values than the previous assay method. NEW Reference Range: 13 - 75 U/L Microscopic analysis of urin e for red blood cells (RBC)Ordered By: Ramirez Stanley on 10-13-2024 Urine RBC 0 SEEN /hpf 0-5 [facility] Mucus LM Ql (Urine sed)Order ed By: Ramirez Stanley on 10-13-2024 Mucus Ql (Urine sed) 1+ /hpf [facility] Nitrite Test strip Ql (U)Ord ered By: Ramirez Stanley on 10-13-2024 Nitrite Ql (U) Positive High Negative [facility] ,Serum,hCG Quali.on 10-13-2024 HCG, SERUM QUAL Negative Normal [facility] Comment on above: Performed By: #### L 700.6800, L500.4050, L100.0100 ####[facility] [address] [place], [address] Protein Test strip Ql (U)Ord ered By: Ramirez Stanley on 10-13-2024 Protein Ql (U) 15 mg/dl High Negative [facility] Urinalysis, Completeon 10-13 BACTERIA 3+ /hpf Normal None Seen [facility] Comment on above: Order Comment: KIRSTEN CTOR TO SPECIFY Performed By: #### L 400.0001 ####[facility] [address] [place], [address] Mucus Ql (Urine sed) 1+ /hpf Normal [facility] Comment on above: Order Comment: KIRSTEN CTOR TO SPECIFY Performed By: #### L 400.0001 ####[facility] [address] [place], [address] EPI,SQUAMOUS 0-5 SEEN Normal 5-10 [facility] Comment on above: Order Comment: KIRSTEN CTOR TO SPECIFY Performed By: #### L 400.0001 ####[facility] [address] [place], [address] WBC 0-5 SEEN Normal 0-5 [facility] Comment on above: Order Comment: KIRSTEN CTOR TO SPECIFY Performed By: #### L 400.0001 ####[facility] [address] [place], [address] RBC 0 SEEN Normal 0-5 [facility] Comment on above: Order Comment: KIRSTEN CTOR TO SPECIFY Performed By: #### L 400.0001 ####[facility] [address] [place], [address] Urine blood detectionOrdered By: Ramirez Stanley on 10-13-2024 Urine Occult Blood Negative Negative [facility] Urine clarityOrdered By: Yvette Stanley on 10-13-2024 Clarity (U) Clear Clear [facility] Urine color determinationOrd ered By: Ramirez Stanley on 10-13-2024 Color (U) Yellow Yellow [facility] Urine cultureOrdered By: Yvette Stanley on 10-13-2024 Bacteria identified Cx Nom (U) Klebsiella pneumoniae sp pneum Abnormal [facility] Urine leukocyte esterase det ection by dipstickOrdered By: Ramirez Stanley on 10-13-2024 Leukocyte esterase Test strip Ql (U) 25 /ul High Negative [facility] Urine pHOrdered By: Ramirez shepard on 10-13-2024 pH (U) 6.0 [pH] 5.0 - 8.0 [facility] Urine sediment bacteria coun t by microscopy (number/high power field)Ordered By: Ramirez Stanley on 10-13-2024 Bacteria LM.HPF (Urine sed) [#/Area] 3 /[HPF] None Seen [facility] Urine specific gravity measu rementOrdered By: Ramirez Stanley on 10-13-2024 Specific gravity (U) [Rel density] 1.020 1.002-1.030 [facility] Urobilinogen Ql (U)Ordered B y: Ramirez Stanley on 10-13-2024 Urine Urobilinogen Normal mg/dl Normal [facility] White blood cell countOrdere d By: Ramirez Stanley on 10-13-2024 Urine WBC 0-5 SEEN /hpf 0-5 [facility] CNPNon 09-27-2024 [facility] Telephone (ENWSTR) ROMAIN MENDOZA ([id number]) 1975 F NFR Date Time Provider Department 09/27/24 ALFRED HOOD ENWSTR During your visit today, we recorded the following information about you: Rizwana Melendez RN 09/27/2024 2:57 PM Signed Pt has been cleared for podiatric surgery with Dr. [facility]. Document will be scanned into Pt's chart. Clearance letter faxed to surgeon's office. Confirmation received. Pt notified. Rizwana Melendez RN September 27, 2024 2:57 PM Allergies As of Date: 09/27/2024 Noted Allergy Reaction NSAIDS (NON-STEROIDAL ANTI-INFLAM*01/13/2023 14 - Other: See Comments Comments: Due to bariatric surgery CODEINE 02/24/2013 14 - Other: See Comments Comments: Dizziness- (all forms/doses)-cannot take cough syrup with codeine CITALOPRAM 01/22/2013 8 - GI Upset Comments: Nausea and vomiting LITHIUM 12/10/2015 8 - GI Upset Comments: stomach pain Date Reviewed: 09/18/2024 Reviewed by: Rizwana Melendez RN - Fully Assessed Reason for Visit: Surgical Clearance [Other] Prescriptions as of 09/27/2024 - [employer] SkincareTOUCH ULTRA TEST test strip 1 Each once daily. - ONETOUCH ULTRA2 METER 1 Each. - hydrOXYzine HCl (ATARAX) 50 mg tablet Take 50 mg by mouth three times a day as needed for anxiety. - ONETOUCH DELICA PLUS LANCET 33 gauge 1 Each once daily. - levothyroxine (SYNTHROID) 137 mcg tablet Take 1 tablet by mouth daily before breakfast. - pantoprazole DR (PROTONIX) 40 mg tablet Take 40 mg by mouth once daily. - potassium chloride (K-TAB) 10 mEq tablet Take 1 tablet by mouth every afternoon. - vilazodone (VIIBRYD) 20 mg tablet Take 20 mg by mouth daily at bedtime. - Vitamin E, dl, acetate, (VITAMIN E) 400 unit capsule Take 800 Units by mouth once daily. - estradiol (CLIMARA) 0.075 mg/24 hr Apply 1 Patch as directed one time a week. to lower abd or buttocks. - rosuvastatin (CRESTOR) 40 mg tablet Take 40 mg by mouth once daily. - allopurinol (ZYLOPRIM) 100 mg tablet Take 100 mg by mouth once daily. - MULTIVITAMIN ORAL Take by mouth. Flinstone chewables - CALCIUM ORAL Take 1 tablet by mouth once daily. - cyanocobalamin/folic acid (VITAMIN Z54-WVDWO ACID SUBLINGUAL) Dissolve 1 Each under the tongue once daily. - ALPRAZolam (XANAX) 0.25 mg tablet Take 1 tablet by mouth once daily as needed for Anxiety. - albuterol HFA (VENTOLIN HFA) 90 mcg/actuation inhaler Inhale 2 Puffs as instructed every 4 hours as needed for Wheezing/Shortness of Breath. Problem List As Of Date 09/27/2024 Noted Resolved SUPERVIS OTHER NORMAL PREG [Z34.80] 09/27/2006 08/26/2008 Thyroid dysfun preg-unsp [O99.280, E07.9] 02/06/2007 12/16/2010 Previous delivery, antepartum conditio*04/06/2007 12/16/2010 Unspecified high-risk [O09.90] 04/06/2007 12/16/2010 Essential hypertension [I10] Adj react-emotion NEC [F43.29] 11/16/2010 Bipolar 2 disorder [F31.81] 11/16/2010 Depression [F32.A] 11/16/2010 Bipolar disorder, rapid cycling [F31.9] 11/16/2010 Hypothyroid [E03.9] 10/14/2011 Vitamin D deficiency [E55.9] 06/03/2012 Adjustment disorder with mixed anxiety and depr*06/14/2013 Marital conflict [Z63.0] 08/02/2013 05/13/2015 Mixed hyperlipidemia [E78.2] 05/13/2015 Impaired glucose metabolism [R73.09] 05/13/2015 05/03/2023 Family history of diabetes mellitus [Z83.3] 05/13/2015 Pain in throat [R07.0] 05/13/2015 06/10/2015 Thyroid activity decreased [E03.9] 05/13/2015 06/10/2015 Asthma [J45.909] 05/13/2015 Goiter [E04.9] 06/10/2015 Dental caries [K02.9] 06/10/2015 Obesity (BMI 30-39.9) [E66.9] 05/03/2023 Asthma, late onset [J45.909] 07/30/2016 05/03/2023 Ovarian cyst, left [N83.202] 02/08/2023 CKD (chronic kidney disease) [N18.9] 05/03/2023 BALBINA (obstructive sleep apnea) [G47.33] 05/03/2023 Pelvic pain in female [R10.2] 05/06/2023 Encounter Status:Closed by RIZWANA MELENDEZ on 09/27/[address] [facility] Absolute neutrophil countOrd ered By: Carlos Aries on 09-24-2024 Neutrophils (Bld) [#/Vol] 3.1 10*3/uL 2.0-7.7 [facility] Albumin to globulin ratioOrd ered By: Carlos Chris on 09-24-2024 Albumin/Globulin [Mass ratio] 0.9 {ratio} 0.9-2.4 [facility] Basophil percentageOrdered B y: Carlos Chris on 09-24-2024 Basophils/100 WBC (Bld) 1.2 % High 0-1 [facility] Bilirubin, totalOrdered By: Carlos Crhis on 09-24-2024 Bilirubin [Mass/Vol] 0.80 mg/dL 0.20-1.00 [facility] Comment on above: For patients on eltr ombopag therapy, use of Dimension [place] TBIL is not recommended. Blood urea nitrogen (BUN)/cr eatinine ratioOrdered By: Carlos Chris on 09-24-2024 Urea nitrogen/Creatinine [Mass ratio] 13.5 mg/mg 10-20 [facility] CBC W/Diff, Automatedon 09-09 Absolute Lymph 2.83 X10 3/uL Normal 0.83-4.51 [facility] Comment on above: Performed By: #### L 100.0100, L500.4050 ####[facility] [address] [place], [address] Absolute Neut 3.1 X10 3/uL Normal 2.0-7.7 [facility] Comment on above: Performed By: #### L 100.0100, L500.4050 ####[facility] [address] [place], [address] Basophils/100 WBC (Bld) 1.2 % High 0-1 [facility] Comment on above: Performed By: #### L 100.0100, L500.4050 ####[facility] [address] [place], [address] Eosinophils/100 WBC (Bld) 1.5 % Normal 0-5 [facility] Comment on above: Performed By: #### L 100.0100, L500.4050 ####[facility] [address] [place], [address] Erythrocyte distribution width (RBC) [Ratio] 12.5 % Normal 11.6-14.6 [facility] Comment on above: Performed By: #### L 100.0100, L500.4050 ####[facility] [address] [place], [address] Hematocrit (Bld) [Volume fraction] 38.4 % Normal 37-47 [facility] Comment on above: Performed By: #### L 100.0100, L500.4050 ####[facility] [address] [place], [address] Hemoglobin (Bld) [Mass/Vol] 12.3 g/dL Normal 12.0-15.0 [facility] Comment on above: Performed By: #### L 100.0100, L500.4050 ####[facility] [address] [place], [address] IG% 0.200 Normal 0.0-0.9 [facility] Comment on above: Result Comment: IG% - Immature Granulocytes (promyelocytes, myelocytes andmetamyelocytes) > 1% indicates that a LEFT SHIFT is Present. Performed By: #### L 100.0100, L500.4050 ####[facility] [address] [place], [address] Lymphocytes/100 WBC (Bld) 43.3 % High 19-41 [facility] Comment on above: Performed By: #### L 100.0100, L500.4050 ####[facility] [address] [place], [address] MCH (RBC) [Entitic mass] 29.7 pg Normal 27.0-32.0 [facility] Comment on above: Performed By: #### L 100.0100, L500.4050 ####[facility] [address] [place], [address] MCHC (RBC) [Mass/Vol] 32.0 g/dL Normal 32-36 [facility] Comment on above: Performed By: #### L 100.0100, L500.4050 ####[facility] [address] [place], [address] MCV (RBC) [Entitic vol] 92.8 fL Normal 81-99 [facility] Comment on above: Performed By: #### L 100.0100, L500.4050 ####[facility] [address] [place], [address] Monocytes/100 WBC (Bld) 6.7 % Normal 0-10 [facility] Comment on above: Performed By: #### L 100.0100, L500.4050 ####[facility] [address] [place], [address] Neutrophils/100 WBC (Bld) 47.1 % Normal 47-70 [facility] Comment on above: Performed By: #### L 100.0100, L500.4050 ####[facility] [address] [place], [address] Nucleated RBC (Bld) [#/Vol] 0 10*3/uL Normal 0-5 [facility] Comment on above: Performed By: #### L 100.0100, L500.4050 ####[facility] [address] [place], [address] Platelet mean volume (Bld) [Entitic vol] 10.8 fL Normal 6.2-12.0 [facility] Comment on above: Performed By: #### L 100.0100, L500.4050 ####[facility] [address] [place], [address] Platelets (Bld) [#/Vol] 300 10*3/uL Normal 150-450 [facility] Comment on above: Performed By: #### L 100.0100, L500.4050 ####[facility] [address] [place], [address] RBC (Bld) [#/Vol] 4.14 10*6/uL Low 4.2-5.4 [facility] Comment on above: Performed By: #### L 100.0100, L500.4050 ####[facility] [address] [place], [address] RDW SD 42.6 fl Normal 35.1-43.9 [facility] Comment on above: Performed By: #### L 100.0100, L500.4050 ####[facility] [address] [place], [address] WBC (Bld) [#/Vol] 6.5 10*3/uL Normal 4.4-11.0 [facility] Comment on above: Performed By: #### L 100.0100, L500.4050 ####[facility] [address] [place], [address] Carbon dioxide measurementOr dered By: Carlos Chris on 09-24-2024 CO2 [Moles/Vol] 28.0 mmol/L 21.0-32.0 [facility] Chloride measurementOrdered By: Carlos Chris on 09-24-2024 Chloride [Moles/Vol] 105 mmol/L 98-107 [facility] Comprehensive Metabolic Prof ilon 09-24-2024 Albumin [Mass/Vol] 3.5 g/dL Normal 3.2-5.0 [facility] Comment on above: Performed By: #### L 100.0100, L500.4050 ####[facility] [address] [place], [address] Albumin/Globulin [Mass ratio] 0.9 {ratio} Normal 0.9-2.4 [facility] Comment on above: Performed By: #### L 100.0100, L500.4050 ####[facility] [address] [place], [address] ALK P 78 U/L Normal 45-117 [facility] Comment on above: Performed By: #### L 100.0100, L500.4050 ####[facility] [address] [place], [address] ALT [Catalytic activity/Vol] 25 U/L Normal 13-56 [facility] Comment on above: Performed By: #### L 100.0100, L500.4050 ####[facility] [address] [place], [address] AST [Catalytic activity/Vol] 27 U/L Normal 15-37 [facility] Comment on above: Performed By: #### L 100.0100, L500.4050 ####[facility] [address] [place], [address] Bilirubin [Mass/Vol] 0.80 mg/dL Normal 0.20-1.00 [facility] Comment on above: Result Comment: For patients on eltrombopag therapy, use of Dimension [place] TBIL is not recommended. Performed By: #### L 100.0100, L500.4050 ####[facility] [address] [place], [address] BUN/CRE 13.5 RATIO Normal 10-20 [facility] Comment on above: Performed By: #### L 100.0100, L500.4050 ####[facility] [address] [place], [address] CA,Total 8.9 mg/dL Normal 8.5-10.1 [facility] Comment on above: Performed By: #### L 100.0100, L500.4050 ####[facility] [address] [place], [address] Chloride [Moles/Vol] 105 mmol/L Normal 98-107 [facility] Comment on above: Performed By: #### L 100.0100, L500.4050 ####[facility] [address] [place], [address] CO2 [Moles/Vol] 28.0 mmol/L Normal 21.0-32.0 [facility] Comment on above: Performed By: #### L 100.0100, L500.4050 ####[facility] [address] [place], [address] Creatinine [Mass/Vol] 0.96 mg/dL Normal 0.55-1.02 [facility] Comment on above: Result Comment: The validity of the calculated GFR GFRAA in patients over70 years has not been determined. Clinical correlation isessential. Performed By: #### L 100.0100, L500.4050 ####[facility] [address] [place], [address] EST GFR - AA 80 mL/min Normal >60 [facility] Comment on above: Result Comment: Afri can Trin[place] GFR Calc Performed By: #### L 100.0100, L500.4050 ####[facility] [address] [place], [address] GAP 5 Normal 5-15 [facility] Comment on above: Performed By: #### L 100.0100, L500.4050 ####[facility] [address] [place], [address] GFR/1.73 sq M.predicted among non-blacks MDRD (S/P/Bld) [Vol rate/Area] 66 mL/min/{1.73_m2} Normal >60 [facility] Comment on above: Result Comment: Non- GFR Calc Performed By: #### L 100.0100, L500.4050 ####[facility] [address] [place], [address] Globulin (S) [Mass/Vol] 4.0 g/dL Normal 2.2-4.2 [facility] Comment on above: Performed By: #### L 100.0100, L500.4050 ####[facility] [address] [place], [address] Glucose [Mass/Vol] 85 mg/dL Normal 74-106 [facility] Comment on above: Performed By: #### L 100.0100, L500.4050 ####[facility] [address] [place], [address] Potassium [Moles/Vol] 4.0 mmol/L Normal 3.5-5.1 [facility] Comment on above: Performed By: #### L 100.0100, L500.4050 ####[facility] [address] [place], [address] Sodium [Moles/Vol] 138 mmol/L Normal 136-145 [facility] Comment on above: Performed By: #### L 100.0100, L500.4050 ####[facility] [address] [place], [address] T PROT 7.5 g/dL Normal 6.4-8.2 [facility] Comment on above: Performed By: #### L 100.0100, L500.4050 ####[facility] [address] [place], [address] Urea nitrogen [Mass/Vol] 13 mg/dL Normal 7-18 [facility] Comment on above: Performed By: #### L 100.0100, L500.4050 ####[facility] [address] [place], [address] Eosinophil percentageOrdered By: Carlos Chris on 09-24-2024 Eosinophils/100 WBC (Bld) 1.5 % 0-5 [facility] Erythrocyte distribution wid th ratioOrdered By: [facility] on 09-24-2024 Erythrocyte distribution width (RBC) [Ratio] 12.5 % 11.6-14.6 [facility] Erythrocyte distribution wid th standard deviationOrdered By: [facility] on 09-24-2024 Erythrocyte distribution width (RBC) [Entitic vol] 42.6 fL 35.1-43.9 [facility] Estimated glomerular filtrat ion rate (GFR) AmericanOrdered By: [facility] 09-24-2024 Estimated GFR (MDRD) Amer 80 mL/min >60 [facility] Comment on above: GFR Calc Glomerular filtration rate ( GFR) estimationOrdered By: Carlos Chris 09-24-2024 Estimated GFR (MDRD) Non-Af Amer 66 mL/min >60 [facility] Comment on above: Non- GFR Calc Glucose measurementOrdered B y: Carlos Chris 09-24-2024 Glucose [Mass/Vol] 85 mg/dL 74-106 [facility] Hematocrit Auto (Bld) [Volum e fraction]Ordered By: [facility] 09-24-2024 Hematocrit (Bld) [Volume fraction] 38.4 % 37-47 [facility] Hemoglobin measurementOrdere d By: Carlos Chris 09-24-2024 Hemoglobin (Bld) [Mass/Vol] 12.3 g/dL 12.0-15.0 [facility] Immature granulocytes/100 WB C Auto (Bld)Ordered By: [facility] 09-24-2024 Immature granulocytes/100 WBC (Bld) 0.200 % 0.0-0.9 [facility] Comment on above: IG% - Immature Granu locytes (promyelocytes, myelocytes and metamyelocytes) > 1% indicates that a LEFT SHIFT is Present. Laboratory - Chemistry and C hemistry - challengeOrdered By: Carlos Chris 09-24-2024 AST [Catalytic activity/Vol] 27 U/L 15-37 [facility] Lymphocytes Auto (Unsp spec) [#/Vol]Ordered By: Carlos Chris on 09-24-2024 Lymphocytes (Bld) [#/Vol] 2.83 10*3/uL 0.83-4.51 [facility] Lymphocytes/100 WBC Auto (Un sp spec)Ordered By: Carlos Chris on 09-24-2024 Lymphocytes/100 WBC (Bld) 43.3 % High 19-41 [facility] MCV (mean corpuscular volume ) determinationOrdered By: Carlos Chris on 09-24-2024 MCV (RBC) [Entitic vol] 92.8 fL 81-99 [facility] Mean corpuscular hemoglobin (MCH) determinationOrdered By: Carlos Chris on 09-24-2024 MCH (RBC) [Entitic mass] 29.7 pg 27.0-32.0 [facility] Mean corpuscular hemoglobin concentration (MCHC) determinationOrdered By: Carlos Chris on 09-24-2024 MCHC (RBC) [Mass/Vol] 32.0 g/dL 32-36 [facility] Mean platelet volume determi nationOrdered By: Carlos Chris on 09-24-2024 Platelet mean volume (Bld) [Entitic vol] 10.8 fL 6.2-12.0 [facility] Monocyte percentageOrdered B y: Carlos Chris on 09-24-2024 Monocytes/100 WBC (Bld) 6.7 % 0-10 [facility] Neutrophil percentageOrdered By: Carlos Chris on 09-24-2024 Neutrophils/100 WBC (Bld) 47.1 % 47-70 [facility] Nucleated red blood cell per centageOrdered By: Carlos Chris on 09-24-2024 Nucleated RBC/100 WBC (Bld) [Ratio] 0 % 0-5 [facility] Platelet countOrdered By: Ric Chris on 09-24-2024 Platelets (Bld) [#/Vol] 300 10*3/uL 150-450 [facility] Potassium measurementOrdered By: Carlos Chris on 09-24-2024 Potassium [Moles/Vol] 4.0 mmol/L 3.5-5.1 [facility] RBC Auto (Bld) [#/Vol]Ordere d By: Carlos Chris on 09-24-2024 RBC (Bld) [#/Vol] 4.14 10*6/uL Low 4.2-5.4 [facility] Serum anion gap measurementO rdered By: Carlos Chris 09-24-2024 Anion gap [Moles/Vol] 5 mmol/L 5-15 [facility] Serum globulin measurementOr dered By: Carlos Chris 09-24-2024 Globulin (S) [Mass/Vol] 4.0 g/dL 2.2-4.2 [facility] Serum or plasma alanine norton otransferase (ALT) measurementOrdered By: Carlos Chris 09-24-2024 ALT [Catalytic activity/Vol] 25 U/L 13-56 [facility] Serum or plasma albumin tara urement (mass/volume)Ordered By: Carlos Chris 09-24-2024 Albumin [Mass/Vol] 3.5 g/dL 3.2-5.0 [facility] Serum or plasma alkaline dorothea sphatase measurementOrdered By: Carlos Chris 09-24-2024 ALP [Catalytic activity/Vol] 78 U/L 45-117 [facility] Serum or plasma calcium tara urement (mass/volume)Ordered By: Carlos Chris 09-24-2024 Calcium [Mass/Vol] 8.9 mg/dL 8.5-10.1 [facility] Serum or plasma creatinine m easurement (mass/volume)Ordered By: Carlos Chris 09-24-2024 Creatinine [Mass/Vol] 0.96 mg/dL 0.55-1.02 [facility] Comment on above: The validity of the calculated GFR & GFRAA in patients over 70 years has not been determined. Clinical correlation is essential. Serum or plasma urea nitroge n measurement (mass/volume)Ordered By: Carlos Chris 09-24-2024 Urea nitrogen [Mass/Vol] 13 mg/dL 7-18 [facility] Sodium levelOrdered By: Carlos Chris 09-24-2024 Sodium [Moles/Vol] 138 mmol/L 136-145 [facility] Total proteinOrdered By: Carlos Chris 09-24-2024 Protein [Mass/Vol] 7.5 g/dL 6.4-8.2 [facility] White blood cell (WBC) count Ordered By: Carlos Chris on 09-24-2024 WBC (Bld) [#/Vol] 6.5 10*3/uL 4.4-11.0 [facility] CNPNon 09-19-2024 CNPN Telephone (ENWSTR) MENDOZA,ROMAIN Dick ([id number]) 1975 F NFR Date Time Provider Department 09/19/24 ALFRED HOOD ENWSTR During your visit today, we recorded the following information about you: Patria Penn LPN 09/19/2024 10:28 AM Signed Patient forgot to tell provider at [facility] yesterday that she required preoperative clearance for her upcoming foot surgery with Dr. Chin at the [facility]. Fax for his office is [phone] MIKE Gomez Jennifer, MA 09/20/2024 1:35 PM Signed Phoned patient to relay message from provider that clearance paperwork needs to be faxed to this office. Fax number given to patient. Palma Joseph MA Allergies As of Date: 09/19/2024 Noted Allergy Reaction NSAIDS (NON-STEROIDAL ANTI-INFLAM*01/13/2023 14 - Other: See Comments Comments: Due to bariatric surgery CODEINE 02/24/2013 14 - Other: See Comments Comments: Dizziness- (all forms/doses)-cannot take cough syrup with codeine CITALOPRAM 01/22/2013 8 - GI Upset Comments: Nausea and vomiting LITHIUM 12/10/2015 8 - GI Upset Comments: stomach pain Date Reviewed: 09/18/2024 Reviewed by: Rizwana Meelndez RN - Fully Assessed Reason for Visit: Care Coordination [5261] Cmt: Pre op clearance Prescriptions as of 09/20/2024 - ONETOUCH ULTRA TEST test strip 1 Each once daily. - ONETOUCH ULTRA2 METER 1 Each. - hydrOXYzine HCl (ATARAX) 50 mg tablet Take 50 mg by mouth three times a day as needed for anxiety. - ONETOUCH DELICA PLUS LANCET 33 gauge 1 Each once daily. - levothyroxine (SYNTHROID) 137 mcg tablet Take 1 tablet by mouth daily before breakfast. - pantoprazole DR (PROTONIX) 40 mg tablet Take 40 mg by mouth once daily. - potassium chloride (K-TAB) 10 mEq tablet Take 1 tablet by mouth every afternoon. - vilazodone (VIIBRYD) 20 mg tablet Take 20 mg by mouth daily at bedtime. - Vitamin E, dl, acetate, (VITAMIN E) 400 unit capsule Take 800 Units by mouth once daily. - estradiol (CLIMARA) 0.075 mg/24 hr Apply 1 Patch as directed one time a week. to lower abd or buttocks. - rosuvastatin (CRESTOR) 40 mg tablet Take 40 mg by mouth once daily. - allopurinol (ZYLOPRIM) 100 mg tablet Take 100 mg by mouth once daily. - MULTIVITAMIN ORAL Take by mouth. Flinstone chewables - CALCIUM ORAL Take 1 tablet by mouth once daily. - cyanocobalamin/folic acid (VITAMIN X11-EPWZB ACID SUBLINGUAL) Dissolve 1 Each under the tongue once daily. - ALPRAZolam (XANAX) 0.25 mg tablet Take 1 tablet by mouth once daily as needed for Anxiety. - albuterol HFA (VENTOLIN HFA) 90 mcg/actuation inhaler Inhale 2 Puffs as instructed every 4 hours as needed for Wheezing/Shortness of Breath. Problem List As Of Date 09/19/2024 Noted Resolved SUPERVIS OTHER NORMAL PREG [Z34.80] 09/27/2006 08/26/2008 Thyroid dysfun preg-unsp [O99.280, E07.9] 02/06/2007 12/16/2010 Previous delivery, antepartum conditio*04/06/2007 12/16/2010 Unspecified high-risk [O09.90] 04/06/2007 12/16/2010 Essential hypertension [I10] Adj react-emotion NEC [F43.29] 11/16/2010 Bipolar 2 disorder [F31.81] 11/16/2010 Depression [F32.A] 11/16/2010 Bipolar disorder, rapid cycling [F31.9] 11/16/2010 Hypothyroid [E03.9] 10/14/2011 Vitamin D deficiency [E55.9] 06/03/2012 Adjustment disorder with mixed anxiety and depr*06/14/2013 Marital conflict [Z63.0] 08/02/2013 05/13/2015 Mixed hyperlipidemia [E78.2] 05/13/2015 Impaired glucose metabolism [R73.09] 05/13/2015 05/03/2023 Family history of diabetes mellitus [Z83.3] 05/13/2015 Pain in throat [R07.0] 05/13/2015 06/10/2015 Thyroid activity decreased [E03.9] 05/13/2015 06/10/2015 Asthma [J45.909] 05/13/2015 Goiter [E04.9] 06/10/2015 Dental caries [K02.9] 06/10/2015 Obesity (BMI 30-39.9) [E66.9] 05/03/2023 Asthma, late onset [J45.909] 07/30/2016 05/03/2023 Ovarian cyst, left [N83.202] 02/08/2023 CKD (chronic kidney disease) [N18.9] 05/03/2023 BALBINA (obstructive sleep apnea) [G47.33] 05/03/2023 Pelvic pain in female [R10.2] 05/06/2023 Encounter Status:Closed by PALMA JOSEPH on 09/20/24 [facility] TETOOVmarcell 09-18-2024 CNOV Office Visit (ENWSTR ) ROMAIN MENDOZA ([id number]) 1975 F NFR Date Time Provider Department 09/18/24 3:00 PM ALFRED HOOD ENWSTR During your visit today, we recorded the following information about you: Pulse Respiration Blood pressure Weight 71/minute 18/minute 102/70 61.6 kg Height 1.524 m Alfred Hood MD 09/18/2024 6:36 PM Signed [facility] Initial Clinic Visit Note Subjective: Romain Mendoza is a 48 year old female here to establish care for hypothyroidism. She is self referred, transferring care from Dr. Matthias Mendieta in [place] History in brief, obtained from chart review: She has a hx of hyperthyroidism diagnosed when in 2006 when she was . At that time she was seeing Dr. Chan, and was on PTU. She later underwent MCPHERSON with 8.63 mCi of I-131 on 01/05/2008. She was restarted on tapazole 6 weeks later due to symptoms She was euthyroid later, followed by hypothyroidism leading to initiation of LT4 She appears to have undergone FNA of left thyroid lobe also in 2007 (dated 01/02/1008 as well on charts) with limited cellularityShe had cystic nodule, 0.795 x 0.337 cm on sagittal view on left, aspirated . FNA was inadequate cellularity, but benign, cystic contents. I will wait to repeat an ultrasound for a year or more. A second biopsy was intended, but patient reports this was never done, and rather ablation was done, and reports she was immediately again- likely in 04/2008 per chart review Current treatment: Levothyroxine 137 mcg daily since last week Prior treatment: Tirosint 175 mcg daily Changes made based on most recent labs in 09/2024 General symptoms: Fatigue: depends Weight change: no Appetite change: she eats multiple times a day due to hx of bariatric surgery (lost from 300 lbs to now at 135 lbs after surgery) Menstrual irregularities: partial hysterectomy done due to abnormal periods, completion done last year due to pain in abdomen Temperature intolerance: cold intolerance always Sleep is fine Sometimes has tremors She takes flintstone Chewables and calcium, Vit E and B12 She also underwent Gastric bypass in Sep 2022 Experiences Hypoglycemia intermittently, recently in 07/2024. Had a hypoglycemic seizure Has a glucose log brought in- most sugars are above 75 mg/dl, some in 200s. Review of the log does not indicate lows below 60 mg/dl She takes small frequent meals as she reports. She had dietitian visit early on after surgery. REVIEW OF SYSTEMS: 10 point ROS was reviewed and negative unless indicated in the HPI ALLERGIES: ALLERGIES Allergen Reactions Citalopram GI Upset Nausea and vomiting Codeine Other: See Comments Dizziness- (all forms/doses)-cannot take cough syrup with codeine [place] GI Upset stomach pain Nsaids (Non-Steroid* Other: See Comments Due to bariatric surgery MEDICATIONS: Current Outpatient Medications on File Prior to Visit Medication Sig ONETOUCH ULTRA TEST test strip 1 Each once daily. ONETOUCH ULTRA2 METER 1 Each. hydrOXYzine HCl (ATARAX) 50 mg tablet Take 50 mg by mouth three times a day as needed for anxiety. ONETOUCH DELICA PLUS LANCET 33 gauge 1 Each once daily. levothyroxine (SYNTHROID) 137 mcg tablet Take 1 tablet by mouth every afternoon. potassium chloride (K-TAB) 10 mEq tablet Take 1 tablet by mouth every afternoon. pantoprazole DR (PROTONIX) 40 mg tablet Take 40 mg by mouth once daily. vilazodone (VIIBRYD) 20 mg tablet Take 20 mg by mouth once daily. estradiol (CLIMARA) 0.075 mg/24 hr Apply 1 Patch as directed one time a week. to lower abd or buttocks. rosuvastatin (CRESTOR) 40 mg tablet allopurinol (ZYLOPRIM) 100 mg tablet MULTIVITAMIN ORAL Take by mouth. Flinstone chewables CALCIUM ORAL Take by mouth. cyanocobalamin/folic acid (VITAMIN E75-TZICR ACID) 1,000-400 mcg lozg Dissolve under the tongue. ALPRAZolam (XANAX) 0.25 mg tablet Take 1 tablet by mouth once daily as needed for Anxiety. albuterol HFA (VENTOLIN HFA) 90 mcg/actuation inhaler Inhale 2 Puffs as instructed every 4 hours as needed for Wheezing/Shortness of Breath. No current facility-administered medications on file prior to visit. PAST MEDICAL HISTORY: PAST MEDICAL HISTORY Diagnosis Date Asthma 03/2016 + [facility] at [facility]. Depressive disorder, not elsewhere classified Encounter for insertion or removal of intrauterine contraceptive device 07/17/2007 Mirena, Removed 10/23/2007 Migraine, unspecified, with intractable migraine, so stated, without mention of status migrainosus Migraine Obesity (BMI 30-39.9) Placenta previa without hemorrhage, antepartum 08/26/2008 Seasonal allergic rhinitis 03/2016 No allergy testing. 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 Normal [facility] Abdomen Single Viewon 2023 Abdomen Single View Normal [facility] Biopsy/Inj or Needle Placeme nton 09-12-2024 Biopsy/Inj or Needle Placement Normal [facility] Trichrome (control)on 2023 Trichrome (control) Normal [facility] Comment on above: Performed By: #### P TRI ####[facility] [address] [place], [address] International normalized rat io (INR) calculationOrdered By: Kristofer An on 09-11-2024 INR Coag (Bld) [Relative time] 1.1 {INR} [facility] Partial Thromboplast Timeon 09-11-2024 aPTT Coag (Bld) [Time] 27.1 s Normal 24.1-36.2 [facility] Comment on above: Performed By: #### L 100.1900, L300.3900, L300.4310 ####[facility] [address] [place], [address] Platelet Counton 09-11-2024 Platelets (Bld) [#/Vol] 253 10*3/uL Normal 150-450 [facility] Comment on above: Performed By: #### L 100.1900, L300.3900, L300.4310 ####[facility] [address] [place], [address] Platelet countOrdered By: Ra mayra An on 09-11-2024 Platelets (Bld) [#/Vol] 253 10*3/uL 150-450 [facility] Prothrombin Time w/INRon INR Coag (PPP) [Relative time] 1.1 {INR} Normal [facility] Comment on above: Performed By: #### L 100.1900, L300.3900, L300.4310 ####[facility] [address] [place], [address] PT Coag (PPP) [Time] 14.0 s Normal 11.7-14.9 [facility] Comment on above: Performed By: #### L 100.1900, L300.3900, L300.4310 ####[facility] [address] [place], [address] Prothrombin timeOrdered By: Kristofer An on 09-11-2024 PT Coag (PPP) [Time] 14.0 s 11.7-14.9 [facility] TSH QnOrdered By: Carlos ferrell 09-11-2024 Thyroid Stimulating Hormone (TSH) 0.043 uIU/mL Low 0.358-3.740 [facility] Thyroid Stim Hormone (TSH)on 09-11-2024 TSH 0.043 uIU/mL Low 0.358-3.740 [facility] Comment on above: Performed By: #### L 501.7433 ####[facility] [address] [place], [place], [address] aPTT Coag (PPP) [Time]Ordere d By: Kristofer An on 09-11-2024 aPTT Coag (Bld) [Time] 27.1 s 24.1-36.2 [facility] AFP, Tumor Markeron 08-22-20 AFP TUMOR BREANNE 2.6 ng/mL Normal 0.0-6.4 [facility] Comment on above: Order Comment: N Result Comment: [employer] [employer] Electrochemiluminescence Immunoassay(ECLIA)Values obtained with different assay methods or kits cannotbe used interchangeably. Results cannot be interpreted asabsolute evidence of the presence or absence of malignantdisease.This test is not interpretable in females.Performed at: [address] [id number] Director: Marvin Lara PhD, Phone: [phone] Performed By: #### L 100.0100, L501.9520, L300.3900, L500.4050, L3300.0700 ####[facility] [address] [place], [place], [id number] Gastroenterology Visit Repor ton 08-22-2024 Gastroenterology Visit Report Normal [facility] Absolute neutrophil countOrd ered By: Kristofer An on 08-21-2024 Neutrophils (Bld) [#/Vol] 3.2 10*3/uL 2.0-7.7 [facility] Albumin to globulin ratioOrd ered By: Kristofer An on 08-21-2024 Albumin/Globulin [Mass ratio] 0.9 {ratio} 0.9-2.4 [facility] Alpha fetoprotein measuremen t as tumor markerOrdered By: Kristofer An on 08-21-2024 Tumor Marker Alpha Fetoprotein 2.6 ng/mL 0.0-6.4 [facility] Comment on above: [employer] [facility] El ectrochemiluminescence Immunoassay(ECLIA)Values obtained with different assay methods or kits cannotbe used interchangeably. Results cannot be interpreted asabsolute evidence of the presence or absence of malignantdisease.This test is not interpretable in females.Performed at: [place] [id number] Director: Marvin Lara PhD, Phone: [phone] Basophil percentageOrdered B y: Kristofer An on 08-21-2024 Basophils/100 WBC (Bld) 0.9 % 0-1 [facility] Bilirubin, totalOrdered By: Kristofer An on 08-21-2024 Bilirubin [Mass/Vol] 1.20 mg/dL High 0.20-1.00 [facility] Comment on above: For patients on eltr ombopag therapy, use of Dimension [place] TBIL is not recommended. Blood urea nitrogen (BUN)/cr eatinine ratioOrdered By: Kristofer An on 08-21-2024 Urea nitrogen/Creatinine [Mass ratio] 14.3 mg/mg 10-20 [facility] CBC W/Diff, Automatedon 08-10 Absolute Lymph 2.07 X10 3/uL Normal 0.83-4.51 [facility] Comment on above: Performed By: #### L 100.0100, L501.9520, L300.3900, L500.4050, L3300.0700 ####[facility] [address] [place], [address] Absolute Neut 3.2 X10 3/uL Normal 2.0-7.7 [facility] Comment on above: Performed By: #### L 100.0100, L501.9520, L300.3900, L500.4050, L3300.0700 ####[facility] [address] [place], [address] Basophils/100 WBC (Bld) 0.9 % Normal 0-1 [facility] Comment on above: Performed By: #### L 100.0100, L501.9520, L300.3900, L500.4050, L3300.0700 ####[facility] [address] [place], [address] Eosinophils/100 WBC (Bld) 1.0 % Normal 0-5 [facility] Comment on above: Performed By: #### L 100.0100, L501.9520, L300.3900, L500.4050, L3300.0700 ####[facility] [address] [place], [address] Erythrocyte distribution width (RBC) [Ratio] 12.3 % Normal 11.6-14.6 [facility] Comment on above: Performed By: #### L 100.0100, L501.9520, L300.3900, L500.4050, L3300.0700 ####[facility] [address] [place], [address] Hematocrit (Bld) [Volume fraction] 38.3 % Normal 37-47 [facility] Comment on above: Performed By: #### L 100.0100, L501.9520, L300.3900, L500.4050, L3300.0700 ####[facility] [address] [place], [address] Hemoglobin (Bld) [Mass/Vol] 12.6 g/dL Normal 12.0-15.0 [facility] Comment on above: Performed By: #### L 100.0100, L501.9520, L300.3900, L500.4050, L3300.0700 ####[facility] [address] [place], [address] IG% 0.300 Normal 0.0-0.9 [facility] Comment on above: Result Comment: IG% - Immature Granulocytes (promyelocytes, myelocytes andmetamyelocytes) > 1% indicates that a LEFT SHIFT is Present. Performed By: #### L 100.0100, L501.9520, L300.3900, L500.4050, L3300.0700 ####[facility] [address] [place], [address] Lymphocytes/100 WBC (Bld) 35.5 % Normal 19-41 [facility] Comment on above: Performed By: #### L 100.0100, L501.9520, L300.3900, L500.4050, L3300.0700 ####[facility] [address] [place], [address] MCH (RBC) [Entitic mass] 30.4 pg Normal 27.0-32.0 [facility] Comment on above: Performed By: #### L 100.0100, L501.9520, L300.3900, L500.4050, L3300.0700 ####[facility] [address] [place], [address] MCHC (RBC) [Mass/Vol] 32.9 g/dL Normal 32-36 [facility] Comment on above: Performed By: #### L 100.0100, L501.9520, L300.3900, L500.4050, L3300.0700 ####[facility] [address] [place], [address] MCV (RBC) [Entitic vol] 92.3 fL Normal 81-99 [facility] Comment on above: Performed By: #### L 100.0100, L501.9520, L300.3900, L500.4050, L3300.0700 ####[facility] [address] [place], [address] Monocytes/100 WBC (Bld) 7.9 % Normal 0-10 [facility] Comment on above: Performed By: #### L 100.0100, L501.9520, L300.3900, L500.4050, L3300.0700 ####[facility] [address] [place], [address] Neutrophils/100 WBC (Bld) 54.4 % Normal 47-70 [facility] Comment on above: Performed By: #### L 100.0100, L501.9520, L300.3900, L500.4050, L3300.0700 ####[facility] [address] [place], [address] Nucleated RBC (Bld) [#/Vol] 0 10*3/uL Normal 0-5 [facility] Comment on above: Performed By: #### L 100.0100, L501.9520, L300.3900, L500.4050, L3300.0700 ####[facility] [address] [place], [address] Platelet mean volume (Bld) [Entitic vol] 11.0 fL Normal 6.2-12.0 [facility] Comment on above: Performed By: #### L 100.0100, L501.9520, L300.3900, L500.4050, L3300.0700 ####[facility] [address] [place], [address] Platelets (Bld) [#/Vol] 339 10*3/uL Normal 150-450 [facility] Comment on above: Performed By: #### L 100.0100, L501.9520, L300.3900, L500.4050, L3300.0700 ####[facility] [address] [place], [address] RBC (Bld) [#/Vol] 4.15 10*6/uL Low 4.2-5.4 [facility] Comment on above: Performed By: #### L 100.0100, L501.9520, L300.3900, L500.4050, L3300.0700 ####[facility] [address] [place], [address] RDW SD 41.4 fl Normal 35.1-43.9 [facility] Comment on above: Performed By: #### L 100.0100, L501.9520, L300.3900, L500.4050, L3300.0700 ####[facility] [address] [place], [address] WBC (Bld) [#/Vol] 5.8 10*3/uL Normal 4.4-11.0 [facility] Comment on above: Performed By: #### L 100.0100, L501.9520, L300.3900, L500.4050, L3300.0700 ####[facility] [address] [place], [address] Carbon dioxide measurementOr dered By: Kristofer An on 08-21-2024 CO2 [Moles/Vol] 28.0 mmol/L 21.0-32.0 [facility] Chloride measurementOrdered By: Kristofer An on 08-21-2024 Chloride [Moles/Vol] 105 mmol/L 98-107 [facility] Comprehensive Metabolic Prof ilon 08-21-2024 Albumin [Mass/Vol] 3.7 g/dL Normal 3.2-5.0 [facility] Comment on above: Order Comment: TSH F OR DR. CHRIS Performed By: #### L 100.0100, L501.9520, L300.3900, L500.4050, L3300.0700 ####[facility] [address] [place], [address] Albumin/Globulin [Mass ratio] 0.9 {ratio} Normal 0.9-2.4 [facility] Comment on above: Order Comment: TSH Isidro OR DR. CHRIS Performed By: #### L 100.0100, L501.9520, L300.3900, L500.4050, L3300.0700 ####[facility] [address] [place], [address] ALK P 87 U/L Normal 45-117 [facility] Comment on above: Order Comment: TSH F OR DR. CHRIS Performed By: #### L 100.0100, L501.9520, L300.3900, L500.4050, L3300.0700 ####[facility] [address] [place], [address] ALT [Catalytic activity/Vol] 25 U/L Normal 13-56 [facility] Comment on above: Order Comment: TSH Isidro OR DR. CHRIS Performed By: #### L 100.0100, L501.9520, L300.3900, L500.4050, L3300.0700 ####[facility] [address] [place], [address] AST [Catalytic activity/Vol] 25 U/L Normal 15-37 [facility] Comment on above: Order Comment: TSH F OR DR. CHRIS Performed By: #### L 100.0100, L501.9520, L300.3900, L500.4050, L3300.0700 ####[facility] [address] [place], [address] Bilirubin [Mass/Vol] 1.20 mg/dL High 0.20-1.00 [facility] Comment on above: Order Comment: TSH F OR DR. CHRIS Result Comment: For patients on eltrombopag therapy, use of Dimension [place] TBIL is not recommended. Performed By: #### L 100.0100, L501.9520, L300.3900, L500.4050, L3300.0700 ####[facility] [address] [place], [address] BUN/CRE 14.3 RATIO Normal 10-20 [facility] Comment on above: Order Comment: TSH F OR DR. CHRIS Performed By: #### L 100.0100, L501.9520, L300.3900, L500.4050, L3300.0700 ####[facility] [address] [place], [address] CA,Total 9.1 mg/dL Normal 8.5-10.1 [facility] Comment on above: Order Comment: TSH F OR DR. CHRIS Performed By: #### L 100.0100, L501.9520, L300.3900, L500.4050, L3300.0700 ####[facility] [address] [place], [address] Chloride [Moles/Vol] 105 mmol/L Normal 98-107 [facility] Comment on above: Order Comment: TSH F OR DR. CHRIS Performed By: #### L 100.0100, L501.9520, L300.3900, L500.4050, L3300.0700 ####[facility] [address] [place], [address] CO2 [Moles/Vol] 28.0 mmol/L Normal 21.0-32.0 [facility] Comment on above: Order Comment: TSH F OR DR. CHRIS Performed By: #### L 100.0100, L501.9520, L300.3900, L500.4050, L3300.0700 ####[facility] [address] [place], [address] Creatinine [Mass/Vol] 0.91 mg/dL Normal 0.55-1.02 [facility] Comment on above: Order Comment: DIVINA Felix OR DR. CHRIS Result Comment: The validity of the calculated GFR GFRAA in patients over70 years has not been determined. Clinical correlation isessential. Performed By: #### L 100.0100, L501.9520, L300.3900, L500.4050, L3300.0700 ####[facility] [address] [place], [address] EST GFR - AA 86 mL/min Normal >60 [facility] Comment on above: Order Comment: DIVINA Felix OR DR. CHRIS Result Comment: Afri can [place] GFR Calc Performed By: #### L 100.0100, L501.9520, L300.3900, L500.4050, L3300.0700 ####[facility] [address] [place], [address] GAP 5 Normal 5-15 [facility] Comment on above: Order Comment: DIVINA Felix OR DR. CHRIS Performed By: #### L 100.0100, L501.9520, L300.3900, L500.4050, L3300.0700 ####[facility] [address] [place], [address] GFR/1.73 sq M.predicted among non-blacks MDRD (S/P/Bld) [Vol rate/Area] 71 mL/min/{1.73_m2} Normal >60 [facility] Comment on above: Order Comment: DIVINA Felix OR DR. CHRIS Result Comment: Non- GFR Calc Performed By: #### L 100.0100, L501.9520, L300.3900, L500.4050, L3300.0700 ####[facility] [address] [place], [address] Globulin (S) [Mass/Vol] 4.1 g/dL Normal 2.2-4.2 [facility] Comment on above: Order Comment: TSH F OR DR. CHRIS Performed By: #### L 100.0100, L501.9520, L300.3900, L500.4050, L3300.0700 ####[facility] [address] [place], [address] Glucose [Mass/Vol] 88 mg/dL Normal 74-106 [facility] Comment on above: Order Comment: TSH F OR DR. CHRIS Performed By: #### L 100.0100, L501.9520, L300.3900, L500.4050, L3300.0700 ####[facility] [address] [place], [address] Potassium [Moles/Vol] 4.0 mmol/L Normal 3.5-5.1 [facility] Comment on above: Order Comment: TSH F OR DR. CHRIS Performed By: #### L 100.0100, L501.9520, L300.3900, L500.4050, L3300.0700 ####[facility] [address] [place], [address] Sodium [Moles/Vol] 138 mmol/L Normal 136-145 [facility] Comment on above: Order Comment: TSH F OR DR. CHRIS Performed By: #### L 100.0100, L501.9520, L300.3900, L500.4050, L3300.0700 ####[facility] [address] [place], [address] T PROT 7.8 g/dL Normal 6.4-8.2 [facility] Comment on above: Order Comment: TSH Isidro OR DR. CHRIS Performed By: #### L 100.0100, L501.9520, L300.3900, L500.4050, L3300.0700 ####[facility] [address] [place], [place], [address] Urea nitrogen [Mass/Vol] 13 mg/dL Normal 7-18 [facility] Comment on above: Order Comment: DIVINA F OR DR. CHRIS Performed By: #### L 100.0100, L501.9520, L300.3900, L500.4050, L3300.0700 ####[facility] [address] [place], [place], [id number] Eosinophil percentageOrdered By: Kristofer An on 08-21-2024 Eosinophils/100 WBC (Bld) 1.0 % 0-5 [facility] Erythrocyte distribution wid th ratioOrdered By: Kristofer An on 08-21-2024 Erythrocyte distribution width (RBC) [Ratio] 12.3 % 11.6-14.6 [facility] Erythrocyte distribution wid th standard deviationOrdered By: Kristoferandrae An on 08-21-2024 Erythrocyte distribution width (RBC) [Entitic vol] 41.4 fL 35.1-43.9 [facility] Estimated glomerular filtrat ion rate (GFR) AmericanOrdered By: Kristofer An on 08-21-2024 Estimated GFR (MDRD) Amer 86 mL/min >60 [facility] Comment on above: GFR Calc Glomerular filtration rate ( GFR) estimationOrdered By: Kristofer An on 08-21-2024 Estimated GFR (MDRD) Non-Af Amer 71 mL/min >60 [facility] Comment on above: Non- GFR Calc Glucose measurementOrdered B y: Kristofer An on 08-21-2024 Glucose [Mass/Vol] 88 mg/dL 74-106 [facility] Hematocrit Auto (Bld) [Volum e fraction]Ordered By: Kristoferandrae An on 08-21-2024 Hematocrit (Bld) [Volume fraction] 38.3 % 37-47 [facility] Hemoglobin measurementOrdere d By: Kristofer An on 08-21-2024 Hemoglobin (Bld) [Mass/Vol] 12.6 g/dL 12.0-15.0 [facility] Immature granulocytes/100 WB C Auto (Bld)Ordered By: Kristofer An on 08-21-2024 Immature granulocytes/100 WBC (Bld) 0.300 % 0.0-0.9 [facility] Comment on above: IG% - Immature Granu locytes (promyelocytes, myelocytes and metamyelocytes) > 1% indicates that a LEFT SHIFT is Present. International normalized rat io (INR) calculationOrdered By: Kristofer An on 08-21-2024 INR Coag (Bld) [Relative time] 1.1 {INR} [facility] Laboratory - Chemistry and C hemistry - challengeOrdered By: Kristoferghassan An on 08-21-2024 AST [Catalytic activity/Vol] 25 U/L 15-37 [facility] Lymphocytes Auto (Unsp spec) [#/Vol]Ordered By: Kristoferandrae An on 08-21-2024 Lymphocytes (Bld) [#/Vol] 2.07 10*3/uL 0.83-4.51 [facility] Lymphocytes/100 WBC Auto (Un sp spec)Ordered By: Kristofer Nataliya on 08-21-2024 Lymphocytes/100 WBC (Bld) 35.5 % 19-41 [facility] MCV (mean corpuscular volume ) determinationOrdered By: Kristoferghassan An on 08-21-2024 MCV (RBC) [Entitic vol] 92.3 fL 81-99 [facility] Mean corpuscular hemoglobin (MCH) determinationOrdered By: Kristoferghassan An on 08-21-2024 MCH (RBC) [Entitic mass] 30.4 pg 27.0-32.0 [facility] Mean corpuscular hemoglobin concentration (MCHC) determinationOrdered By: Kristoferandrae An on 08-21-2024 MCHC (RBC) [Mass/Vol] 32.9 g/dL 32-36 [facility] Mean platelet volume determi nationOrdered By: Kristoferghassan An on 08-21-2024 Platelet mean volume (Bld) [Entitic vol] 11.0 fL 6.2-12.0 [facility] Monocyte percentageOrdered B y: Kristoferandrae An on 08-21-2024 Monocytes/100 WBC (Bld) 7.9 % 0-10 [facility] Neutrophil percentageOrdered By: Kristoferandrae An on 08-21-2024 Neutrophils/100 WBC (Bld) 54.4 % 47-70 [facility] Nucleated red blood cell per centageOrdered By: Kristofer An on 08-21-2024 Nucleated RBC/100 WBC (Bld) [Ratio] 0 % 0-5 [facility] Platelet countOrdered By: Ra mayra An on 08-21-2024 Platelets (Bld) [#/Vol] 339 10*3/uL 150-450 [facility] Potassium measurementOrdered By: Kristofer An on 08-21-2024 Potassium [Moles/Vol] 4.0 mmol/L 3.5-5.1 [facility] Prothrombin Time w/INRon INR Coag (PPP) [Relative time] 1.1 {INR} Normal [facility] Comment on above: Performed By: #### L 100.0100, L501.9520, L300.3900, L500.4050, L3300.0700 ####[facility] [address] [place], [address] PT Coag (PPP) [Time] 14.1 s Normal 11.7-14.9 [facility] Comment on above: Performed By: #### L 100.0100, L501.9520, L300.3900, L500.4050, L3300.0700 ####[facility] [address] [place], [address] Prothrombin timeOrdered By: Kristofer An on 08-21-2024 PT Coag (PPP) [Time] 14.1 s 11.7-14.9 [facility] RBC Auto (Bld) [#/Vol]Ordere d By: Kristofer An on 08-21-2024 RBC (Bld) [#/Vol] 4.15 10*6/uL Low 4.2-5.4 [facility] Serum anion gap measurementO rdered By: Kristofer An on 08-21-2024 Anion gap [Moles/Vol] 5 mmol/L 5-15 [facility] Serum globulin measurementOr dered By: Kristofer An on 08-21-2024 Globulin (S) [Mass/Vol] 4.1 g/dL 2.2-4.2 [facility] Serum or plasma alanine norton otransferase (ALT) measurementOrdered By: Kristofer An on 08-21-2024 ALT [Catalytic activity/Vol] 25 U/L 13-56 [facility] Serum or plasma albumin tara urement (mass/volume)Ordered By: Kristofer An on 08-21-2024 Albumin [Mass/Vol] 3.7 g/dL 3.2-5.0 [facility] Serum or plasma alkaline dorothea sphatase measurementOrdered By: Kristofer An on 08-21-2024 ALP [Catalytic activity/Vol] 87 U/L 45-117 [facility] Serum or plasma calcium tara urement (mass/volume)Ordered By: Kristofer An on 08-21-2024 Calcium [Mass/Vol] 9.1 mg/dL 8.5-10.1 [facility] Serum or plasma creatinine m easurement (mass/volume)Ordered By: Kristofer An on 08-21-2024 Creatinine [Mass/Vol] 0.91 mg/dL 0.55-1.02 [facility] Comment on above: The validity of the calculated GFR & GFRAA in patients over 70 years has not been determined. Clinical correlation is essential. Serum or plasma urea nitroge n measurement (mass/volume)Ordered By: Kristofer An on 08-21-2024 Urea nitrogen [Mass/Vol] 13 mg/dL 7-18 [facility] Sodium levelOrdered By: Sumeet Herrera on 08-21-2024 Sodium [Moles/Vol] 138 mmol/L 136-145 [facility] TSH QnOrdered By: Kristofer Sarmiento iend on 08-21-2024 Thyroid Stimulating Hormone (TSH) 0.143 uIU/mL Low 0.358-3.740 [facility] Thyroid Stim Hormone (TSH)on 08-21-2024 TSH 0.143 uIU/mL Low 0.358-3.740 [facility] Comment on above: Order Comment: TSH F OR DR. CHRIS Performed By: #### L 100.0100, L501.9520, L300.3900, L500.4050, L3300.0700 ####[facility] [address] [place], [address] Total proteinOrdered By: cinthya maryannghassan An on 08-21-2024 Protein [Mass/Vol] 7.8 g/dL 6.4-8.2 [facility] White blood cell (WBC) count Ordered By: Kristofer An on 08-21-2024 WBC (Bld) [#/Vol] 5.8 10*3/uL 4.4-11.0 [facility] L801.2650on 08-04-2024 T3UP 49 Abnormal 24-39 [facility] Comment on above: Result Comment: Perf ormed at: [facility] [address] [place], [place] [id number] Director: Marvin Lara PhD, Phone: [phone] Performed By: #### L 501.9520, L506.0400, L801.2650 ####[facility] [address] [place], [address] T4 Free Directon 08-03-2024 T4 FREE DIRECT 2.92 ng/dL High 0.76-1.46 [facility] Comment on above: Performed By: #### L 501.9520, L506.0400, L801.2650 ####[facility] [address] [place], [address] Thyroid Stim Hormone (TSH)on 08-03-2024 TSH 0.279 uIU/mL Low 0.358-3.740 [facility] Comment on above: Performed By: #### L 501.9520, L506.0400, L801.2650 ####[facility] [address] [place], [address] M100.678on 08-01-2024 M100.678 Pending SARS-CoV-2 (COVID 19) Negative INFLUENZA A Negative INFLUENZA B Negative RSV PCR Negative Normal [facility] Comment on above: Performed By: #### M 100.678 ####[facility] [address] [place], [place], [address] Thyroid Stim Hormone (TSH)on 07-23-2024 TSH 143.000 uIU/mL High 0.358-3.740 [facility] Comment on above: Performed By: #### L 501.9520 ####[facility] [address] [place], [place], [address] CT PELVIS W IVCONon 07-13-20 CT PELVIS W IVCON * * *Final Report* * * DATE OF EXAM: Jul 13 2024 11:44AM [facility] 0555 - CT PELVIS W IVCON / [...] RESULT: Postoperative changes from hysterectomy and bilateral salpingo-oophorectomy. No new mass. Trace fluid anterior to the bladder. Visualized loops of bowel are nondistended. No pelvic lymphadenopathy. IMPRESSION: No mass is visualized. There is trace fluid anterior to the bladder, possibly related to prior surgery. 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[employer] Transcribe Date/Time: Jul 19 2024 9:00A Dictated by : DEVIKA CONLEY MD This examination was interpreted and the report reviewed and electronically signed by: DEVIKA CONLEY MD on Jul 19 2024 9:07AM EST [id number] Normal [facility] CREATININE BLDon 07-12-2024 Creatinine [Mass/Vol] 0.93 mg/dL Normal 0.58-0.96 [facility] Comment on above: Order Comment: Speci men Type: BLOOD SPECIMEN Ordering Facility: [facility] Address: [address] [place] [address] Performed By: #### C RET1 #### [facility] CLIA [id number] [address] [place] [address] [place] Creatinine and Glomerular filtration rate.predicted panel (S/P/Bld) 77 mL/min/1.73m??? Normal >=[address] [facility] Comment on above: Order Comment: Speci men Type: BLOOD SPECIMEN Ordering Facility: [facility] Address: [address] [place] [address] Result Comment: Pricilla mated Glomerular Filtration Rate [...] GFR. Performed By: #### C RET1 #### [facility] CLIA [id number] [address] [place] [address] [place] 12 Lead EKGon 07-05-2024 12 Lead EKG Normal [facility] AFP, Tumor Markeron 06-30-20 AFP TUMOR BREANNE 4.6 ng/mL Normal 0.0-6.4 [facility] Comment on above: Order Comment: N Result Comment: [facility] [employer] Electrochemiluminescence Immunoassay(ECLIA)Values obtained with different assay methods or kits cannotbe used interchangeably. Results cannot be interpreted asabsolute evidence of the presence or absence of malignantdisease.This test is not interpretable in females.Performed at: [facility] [id number] Director: Marvin Lara PhD, Phone: [phone] Performed By: #### L 6994.0700 ####[facility] [address] [place], [address] [facility] 06-28-2024 [facility] Telephone (OBGYWM) ROMAIN MENDOZA ([id number]) 1975 F NFR Date Time Provider Department 06/28/24 GUDELIA MI OBGYWM During your visit today, we recorded the following information about you: Bharti Howard RN 06/28/2024 3:39 PM Signed Patient recently had workup with Dr. An and was told her tumor marker AFP was elevated and to follow up with PHARMACEUTICAL SCIENTIST provider. Patient questioning if she does need to follow up here because she had hysterectomy and both ovaries have been removed. Lab result from [facility] to to review. Please advise. CYNDI Anthony Rebecca L, MD 06/28/2024 4:20 PM Signed I really don't think an ovarian tumor is the cause of this being elevated. Has she had a CT of the pelvis? If not I would be happy to order one but since both ovaries are removed and were benign I doubt industrial relations specialist cause. If has had pelvic/abd ct in [...] GI Upset Comments: stomach pain NSAIDS (NON-STEROIDAL ANTI-INFLAM*01/13/2023 14 - Other: See Comments Comments: Due to bariatric surgery Date Reviewed: 12/06/2023 Reviewed by: Hoa Gallardo MA - Fully Assessed Reason for Visit: Patient Question [1477] Primary Visit Diagnosis:Elevated AFP [R77.2] Other Visit Diagnosis:Abnormal tumor markers [R97.8] Order(s):CT PELVIS W IVCON [[id number]] Order #: [id number] FUTURE iv contrast (will be provided with [...] EachRfl: 0 CREATININE BLD [SQCRET] Order #: [id number] FUTURE Prescriptions as of 07/02/2024 - iv [...] Take by mouth. - cyanocobalamin/folic acid (VITAMIN H92-PBWWO ACID) 1,000-400 mcg lozg Dissolve under the [...] Date 06/28 (more content not included)... Normal [facility] CBC W/Diff, Automatedon 06-10 Absolute Lymph 2.82 X10 3/uL Normal 0.83-4.51 [facility] Comment on above: Performed By: #### L 300.3900, L500.4050, L100.0100 ####[facility] [address] [place], [address] Absolute Neut 4.6 X10 3/uL Normal 2.0-7.7 [facility] Comment on above: Performed By: #### L 300.3900, L500.4050, L100.0100 ####[facility] [address] [place], [address] Basophils/100 WBC (Bld) 0.7 % Normal 0-1 [facility] Comment on above: Performed By: #### L 300.3900, L500.4050, L100.0100 ####[facility] [address] [place], [address] Eosinophils/100 WBC (Bld) 1.0 % Normal 0-5 [facility] Comment on above: Performed By: #### L 300.3900, L500.4050, L100.0100 ####[facility] [address] [place], [address] Erythrocyte distribution width (RBC) [Ratio] 12.3 % Normal 11.6-14.6 [facility] Comment on above: Performed By: #### L 300.3900, L500.4050, L100.0100 ####[facility] [address] [place], [address] Hematocrit (Bld) [Volume fraction] 40.2 % Normal 37-47 [facility] Comment on above: Performed By: #### L 300.3900, L500.4050, L100.0100 ####[facility] [address] [place], [address] Hemoglobin (Bld) [Mass/Vol] 12.9 g/dL Normal 12.0-15.0 [facility] Comment on above: Performed By: #### L 300.3900, L500.4050, L100.0100 ####[facility] [address] [place], [address] IG% 0.400 Normal 0.0-0.9 [facility] Comment on above: Result Comment: IG% - Immature Granulocytes (promyelocytes, myelocytes andmetamyelocytes) > 1% indicates that a LEFT SHIFT is Present. Performed By: #### L 300.3900, L500.4050, L100.0100 ####[facility] [address] [place], [address] Lymphocytes/100 WBC (Bld) 34.9 % Normal 19-41 [facility] Comment on above: Performed By: #### L 300.3900, L500.4050, L100.0100 ####[facility] [address] [place], [address] MCH (RBC) [Entitic mass] 29.8 pg Normal 27.0-32.0 [facility] Comment on above: Performed By: #### L 300.3900, L500.4050, L100.0100 ####[facility] [address] [place], [address] MCHC (RBC) [Mass/Vol] 32.1 g/dL Normal 32-36 [facility] Comment on above: Performed By: #### L 300.3900, L500.4050, L100.0100 ####[facility] [address] [place], [address] MCV (RBC) [Entitic vol] 92.8 fL Normal 81-99 [facility] Comment on above: Performed By: #### L 300.3900, L500.4050, L100.0100 ####[facility] [address] [place], [address] Monocytes/100 WBC (Bld) 6.1 % Normal 0-10 [facility] Comment on above: Performed By: #### L 300.3900, L500.4050, L100.0100 ####[facility] [address] [place], [address] Neutrophils/100 WBC (Bld) 56.9 % Normal 47-70 [facility] Comment on above: Performed By: #### L 300.3900, L500.4050, L100.0100 ####[facility] [address] [place], [address] Nucleated RBC (Bld) [#/Vol] 0 10*3/uL Normal 0-5 [facility] Comment on above: Performed By: #### L 300.3900, L500.4050, L100.0100 ####[facility] [address] [place], [address] Platelet mean volume (Bld) [Entitic vol] 10.8 fL Normal 6.2-12.0 [facility] Comment on above: Performed By: #### L 300.3900, L500.4050, L100.0100 ####[facility] [address] [place], [address] Platelets (Bld) [#/Vol] 377 10*3/uL Normal 150-450 [facility] Comment on above: Performed By: #### L 300.3900, L500.4050, L100.0100 ####[facility] [address] [place], [address] RBC (Bld) [#/Vol] 4.33 10*6/uL Normal 4.2-5.4 [facility] Comment on above: Performed By: #### L 300.3900, L500.4050, L100.0100 ####[facility] [address] [place], [address] RDW SD 42.2 fl Normal 35.1-43.9 [facility] Comment on above: Performed By: #### L 300.3900, L500.4050, L100.0100 ####[facility] [address] [place], [address] WBC (Bld) [#/Vol] 8.1 10*3/uL Normal 4.4-11.0 [facility] Comment on above: Performed By: #### L 300.3900, L500.4050, L100.0100 ####[facility] [address] [place], [address] Comprehensive Metabolic Prof ilon 06-27-2024 Albumin [Mass/Vol] 3.6 g/dL Normal 3.2-5.0 [facility] Comment on above: Performed By: #### L 300.3900, L500.4050, L100.0100 ####[facility] [address] [place], [address] Albumin/Globulin [Mass ratio] 0.9 {ratio} Normal 0.9-2.4 [facility] Comment on above: Performed By: #### L 300.3900, L500.4050, L100.0100 ####[facility] [address] [place], [address] ALK P 86 U/L Normal 45-117 [facility] Comment on above: Performed By: #### L 300.3900, L500.4050, L100.0100 ####[facility] [address] [place], [address] ALT [Catalytic activity/Vol] 26 U/L Normal 13-56 [facility] Comment on above: Performed By: #### L 300.3900, L500.4050, L100.0100 ####[facility] [address] [place], [address] AST [Catalytic activity/Vol] 28 U/L Normal 15-37 [facility] Comment on above: Performed By: #### L 300.3900, L500.4050, L100.0100 ####[facility] [address] [place], [address] Bilirubin [Mass/Vol] 0.90 mg/dL Normal 0.20-1.00 [facility] Comment on above: Result Comment: For patients on eltrombopag therapy, use of Dimension [place] TBIL is not recommended. Performed By: #### L 300.3900, L500.4050, L100.0100 ####[facility] [address] [place], [address] BUN/CRE 12.6 RATIO Normal 10-20 [facility] Comment on above: Performed By: #### L 300.3900, L500.4050, L100.0100 ####[facility] [address] [place], [address] CA,Total 9.2 mg/dL Normal 8.5-10.1 [facility] Comment on above: Performed By: #### L 300.3900, L500.4050, L100.0100 ####[facility] [address] [place], [address] Chloride [Moles/Vol] 103 mmol/L Normal 98-107 [facility] Comment on above: Performed By: #### L 300.3900, L500.4050, L100.0100 ####[facility] [address] [place], [address] CO2 [Moles/Vol] 29.0 mmol/L Normal 21.0-32.0 [facility] Comment on above: Performed By: #### L 300.3900, L500.4050, L100.0100 ####[facility] [address] [place], [address] Creatinine [Mass/Vol] 0.95 mg/dL Normal 0.55-1.02 [facility] Comment on above: Result Comment: The validity of the calculated GFR GFRAA in patients over70 years has not been determined. Clinical correlation isessential. Performed By: #### L 300.3900, L500.4050, L100.0100 ####[facility] [address] [place], [address] EST GFR - AA 81 mL/min Normal >60 [facility] Comment on above: Result Comment: Afri can Trin[place] GFR Calc Performed By: #### L 300.3900, L500.4050, L100.0100 ####[facility] [address] [place], [address] GAP 7 Normal 5-15 [facility] Comment on above: Performed By: #### L 300.3900, L500.4050, L100.0100 ####[facility] [address] [place], [address] GFR/1.73 sq M.predicted among non-blacks MDRD (S/P/Bld) [Vol rate/Area] 67 mL/min/{1.73_m2} Normal >60 [facility] Comment on above: Result Comment: Non- GFR Calc Performed By: #### L 300.3900, L500.4050, L100.0100 ####[facility] [address] [place], [address] Globulin (S) [Mass/Vol] 4.1 g/dL Normal 2.2-4.2 [facility] Comment on above: Performed By: #### L 300.3900, L500.4050, L100.0100 ####[facility] [address] [place], [address] Glucose [Mass/Vol] 81 mg/dL Normal 74-106 [facility] Comment on above: Performed By: #### L 300.3900, L500.4050, L100.0100 ####[facility] [address] [place], [address] Potassium [Moles/Vol] 4.3 mmol/L Normal 3.5-5.1 [facility] Comment on above: Performed By: #### L 300.3900, L500.4050, L100.0100 ####[facility] [address] [place], [address] Sodium [Moles/Vol] 139 mmol/L Normal 136-145 [facility] Comment on above: Performed By: #### L 300.3900, L500.4050, L100.0100 ####[facility] [address] [place], [address] T PROT 7.7 g/dL Normal 6.4-8.2 [facility] Comment on above: Performed By: #### L 300.3900, L500.4050, L100.0100 ####[facility] [address] [place], [address] Urea nitrogen [Mass/Vol] 12 mg/dL Normal 04-26 [facility] Comment on above: Performed By: #### L 300.3900, L500.4050, L100.0100 ####[facility] [address] [place], [address] Prothrombin Time w/INRon INR Coag (PPP) [Relative time] 1.1 {INR} Normal [facility] Comment on above: Performed By: #### L 300.3900, L500.4050, L100.0100 ####[facility] [address] [place], [address] PT Coag (PPP) [Time] 14.3 s Normal 11.7-14.9 [facility] Comment on above: Performed By: #### L 300.3900, L500.4050, L100.0100 ####[facility] [address] [place], [address] MRI Abd WITH and W/O Contras ton 06-19-2024 MRI Abd WITH and W/O Contrast Normal [facility] M100.678on 06-05-2024 M100.678 Pending SARS-CoV-2 (COVID 19) Negative INFLUENZA A Negative INFLUENZA B Negative RSV PCR Negative Normal [facility] Comment on above: Performed By: #### M 100.678 ####[facility] [address] [place], [address] Urgent Care Visit Reporton 0 06-03-2024 Urgent Care Visit Report Normal [facility] CBC W/Diff, Automatedon 08- Absolute Lymph 2.47 X10 3/uL Normal 0.83-4.51 [facility] Comment on above: Performed By: #### L 500.4100, L501.9520, L100.0100, L501.9985, L500.4050 ####[facility] [address] [place], [address] Absolute Neut 2.5 X10 3/uL Normal 2.0-7.7 [facility] Comment on above: Performed By: #### L 500.4100, L501.9520, L100.0100, L501.9985, L500.4050 ####[facility] [address] [place], [address] Basophils/100 WBC (Bld) 1.3 % High 0-1 [facility] Comment on above: Performed By: #### L 500.4100, L501.9520, L100.0100, L501.9985, L500.4050 ####[facility] [address] [place], [address] Eosinophils/100 WBC (Bld) 1.3 % Normal 0-5 [facility] Comment on above: Performed By: #### L 500.4100, L501.9520, L100.0100, L501.9985, L500.4050 ####[facility] [address] [place], [address] Erythrocyte distribution width (RBC) [Ratio] 13.3 % Normal 11.6-14.6 [facility] Comment on above: Performed By: #### L 500.4100, L501.9520, L100.0100, L501.9985, L500.4050 ####[facility] [address] [place], [address] Hematocrit (Bld) [Volume fraction] 43.1 % Normal 37-47 [facility] Comment on above: Performed By: #### L 500.4100, L501.9520, L100.0100, L501.9985, L500.4050 ####[facility] [address] [place], [address] Hemoglobin (Bld) [Mass/Vol] 13.9 g/dL Normal 12.0-15.0 [facility] Comment on above: Performed By: #### L 500.4100, L501.9520, L100.0100, L501.9985, L500.4050 ####[facility] [address] [place], [address] IG% 0.200 Normal 0.0-0.9 [facility] Comment on above: Result Comment: IG% - Immature Granulocytes (promyelocytes, myelocytes andmetamyelocytes) > 1% indicates that a LEFT SHIFT is Present. Performed By: #### L 500.4100, L501.9520, L100.0100, L501.9985, L500.4050 ####[facility] [address] [place], [address] Lymphocytes/100 WBC (Bld) 45.5 % High 19-41 [facility] Comment on above: Performed By: #### L 500.4100, L501.9520, L100.0100, L501.9985, L500.4050 ####[facility] [address] [place], [address] MCH (RBC) [Entitic mass] 30.6 pg Normal 27.0-32.0 [facility] Comment on above: Performed By: #### L 500.4100, L501.9520, L100.0100, L501.9985, L500.4050 ####[facility] [address] [place], [address] MCHC (RBC) [Mass/Vol] 32.3 g/dL Normal 32-36 [facility] Comment on above: Performed By: #### L 500.4100, L501.9520, L100.0100, L501.9985, L500.4050 ####[facility] [address] [place], [address] MCV (RBC) [Entitic vol] 94.9 fL Normal 81-99 [facility] Comment on above: Performed By: #### L 500.4100, L501.9520, L100.0100, L501.9985, L500.4050 ####[facility] [address] [place], [address] Monocytes/100 WBC (Bld) 5.7 % Normal 0-10 [facility] Comment on above: Performed By: #### L 500.4100, L501.9520, L100.0100, L501.9985, L500.4050 ####[facility] [address] [place], [address] Neutrophils/100 WBC (Bld) 46.0 % Low 47-70 [facility] Comment on above: Performed By: #### L 500.4100, L501.9520, L100.0100, L501.9985, L500.4050 ####[facility] [address] [place], [address] Nucleated RBC (Bld) [#/Vol] 0 10*3/uL Normal 0-5 [facility] Comment on above: Performed By: #### L 500.4100, L501.9520, L100.0100, L501.9985, L500.4050 ####[facility] [address] [place], [address] Platelet mean volume (Bld) [Entitic vol] 11.4 fL Normal 6.2-12.0 [facility] Comment on above: Performed By: #### L 500.4100, L501.9520, L100.0100, L501.9985, L500.4050 ####[facility] [address] [place], [address] Platelets (Bld) [#/Vol] 240 10*3/uL Normal 150-450 [facility] Comment on above: Performed By: #### L 500.4100, L501.9520, L100.0100, L501.9985, L500.4050 ####[facility] [address] [place], [address] RBC (Bld) [#/Vol] 4.54 10*6/uL Normal 4.2-5.4 [facility] Comment on above: Performed By: #### L 500.4100, L501.9520, L100.0100, L501.9985, L500.4050 ####[facility] [address] [place], [address] RDW SD 46.6 fl High 35.1-43.9 [facility] Comment on above: Performed By: #### L 500.4100, L501.9520, L100.0100, L501.9985, L500.4050 ####[facility] [address] [place], [address] WBC (Bld) [#/Vol] 5.4 10*3/uL Normal 4.4-11.0 [facility] Comment on above: Performed By: #### L 500.4100, L501.9520, L100.0100, L501.9985, L500.4050 ####[facility] [address] [place], [address] Comprehensive Metabolic Prof [facility] 05-23-2024 Albumin [Mass/Vol] 3.9 g/dL Normal 3.2-5.0 [facility] Comment on above: Performed By: #### L 500.4100, L501.9520, L100.0100, L501.9985, L500.4050 ####[facility] [address] [place], [address] Albumin/Globulin [Mass ratio] 0.9 {ratio} Normal 0.9-2.4 [facility] Comment on above: Performed By: #### L 500.4100, L501.9520, L100.0100, L501.9985, L500.4050 ####[facility] [address] [place], [address] ALK P 68 U/L Normal 45-117 [facility] Comment on above: Performed By: #### L 500.4100, L501.9520, L100.0100, L501.9985, L500.4050 ####[facility] [address] [place], [address] ALT [Catalytic activity/Vol] 62 U/L High 13-56 [facility] Comment on above: Performed By: #### L 500.4100, L501.9520, L100.0100, L501.9985, L500.4050 ####[facility] [address] [place], [address] AST [Catalytic activity/Vol] 66 U/L High 15-37 [facility] Comment on above: Performed By: #### L 500.4100, L501.9520, L100.0100, L501.9985, L500.4050 ####[facility] [address] [place], [address] Bilirubin [Mass/Vol] 0.90 mg/dL Normal 0.20-1.00 [facility] Comment on above: Result Comment: For patients on eltrombopag therapy, use of Dimension [place] TBIL is not recommended. Performed By: #### L 500.4100, L501.9520, L100.0100, L501.9985, L500.4050 ####[facility] [address] [place], [address] BUN/CRE 10.7 RATIO Normal 10-20 [facility] Comment on above: Performed By: #### L 500.4100, L501.9520, L100.0100, L501.9985, L500.4050 ####[facility] [address] [place], [address] CA,Total 9.1 mg/dL Normal 8.5-10.1 [facility] Comment on above: Performed By: #### L 500.4100, L501.9520, L100.0100, L501.9985, L500.4050 ####[facility] [address] [place], [address] Chloride [Moles/Vol] 101 mmol/L Normal 98-107 [facility] Comment on above: Performed By: #### L 500.4100, L501.9520, L100.0100, L501.9985, L500.4050 ####[facility] [address] [place], [address] CO2 [Moles/Vol] 30.0 mmol/L Normal 21.0-32.0 [facility] Comment on above: Performed By: #### L 500.4100, L501.9520, L100.0100, L501.9985, L500.4050 ####[facility] [address] [place], [address] Creatinine [Mass/Vol] 1.31 mg/dL High 0.55-1.02 [facility] Comment on above: Result Comment: The validity of the calculated GFR GFRAA in patients over70 years has not been determined. Clinical correlation isessential. Performed By: #### L 500.4100, L501.9520, L100.0100, L501.9985, L500.4050 ####[facility] [address] [place], [address] EST GFR - AA 56 mL/min Low >60 [facility] Comment on above: Result Comment: Afri can [place] GFR Calc Performed By: #### L 500.4100, L501.9520, L100.0100, L501.9985, L500.4050 ####[facility] [address] [place], [address] GAP 6 Normal 5-15 [facility] Comment on above: Performed By: #### L 500.4100, L501.9520, L100.0100, L501.9985, L500.4050 ####[facility] [address] [place], [address] GFR/1.73 sq M.predicted among non-blacks MDRD (S/P/Bld) [Vol rate/Area] 46 mL/min/{1.73_m2} Low >60 [facility] Comment on above: Result Comment: Non- GFR Calc Performed By: #### L 500.4100, L501.9520, L100.0100, L501.9985, L500.4050 ####[facility] [address] [place], [address] Globulin (S) [Mass/Vol] 4.4 g/dL High 2.2-4.2 [facility] Comment on above: Performed By: #### L 500.4100, L501.9520, L100.0100, L501.9985, L500.4050 ####[facility] [id number] [place], [address] Glucose [Mass/Vol] 79 mg/dL Normal 74-106 [facility] Comment on above: Performed By: #### L 500.4100, L501.9520, L100.0100, L501.9985, L500.4050 ####[facility] [address] [place], [address] Potassium [Moles/Vol] 4.4 mmol/L Normal 3.5-5.1 [facility] Comment on above: Performed By: #### L 500.4100, L501.9520, L100.0100, L501.9985, L500.4050 ####[facility] [id number] [place], [address] Sodium [Moles/Vol] 137 mmol/L Normal 136-145 [facility] Comment on above: Performed By: #### L 500.4100, L501.9520, L100.0100, L501.9985, L500.4050 ####[facility] [id number] [place], [address] T PROT 8.3 g/dL High 6.4-8.2 [facility] Comment on above: Performed By: #### L 500.4100, L501.9520, L100.0100, L501.9985, L500.4050 ####[facility] [id number] [place], [address] Urea nitrogen [Mass/Vol] 14 mg/dL Normal 7-18 [facility] Comment on above: Performed By: #### L 500.4100, L501.9520, L100.0100, L501.9985, L500.4050 ####[facility] [id number] [place], [address] Hemoglobin A1con 05-23-2024 HbA1c (Bld) [Mass fraction] 5.3 % Normal 3.8-5.6 [facility] Comment on above: Result Comment: Norm al < 5.7 % Prediabetic 5.7 - 6.4 % Diabetic >or= 6.5 % Please note range changes. Performed By: #### L 500.4100, L501.9520, L100.0100, L501.9985, L500.4050 ####[facility] [id number] [place], [address] Lipid Profileon 05-23-2024 Cholesterol [Mass/Vol] 241 mg/dL High 200 [facility] Comment on above: Result Comment: <200 mg/dL Desirable 200-240 mg/dL Borderline >240 mg/dL High Risk Performed By: #### L 500.4100, L501.9520, L100.0100, L501.9985, L500.4050 ####[facility] [address] [place], [address] Cholesterol in HDL [Mass/Vol] 72 mg/dL Normal [facility] Comment on above: Result Comment: The drugs N-Acetylcysteine and Metamizole may falselydepress this assay. Reference Range HDL <40 mg/dL Low HDL Cholesterol HDL >or= 60 mg/dL High HDL Cholesterol Performed By: #### L 500.4100, L501.9520, L100.0100, L501.9985, L500.4050 ####[facility] [address] [place], [address] Cholesterol in LDL [Mass/Vol] 146 mg/dL High 0-130 [facility] Comment on above: Performed By: #### L 500.4100, L501.9520, L100.0100, L501.9985, L500.4050 ####[facility] [address] [place], [address] Cholesterol in VLDL [Mass/Vol] 23 mg/dL Normal 5-40 [facility] Comment on above: Performed By: #### L 500.4100, L501.9520, L100.0100, L501.9985, L500.4050 ####[facility] [address] [place], [address] Triglyceride [Mass/Vol] 115 mg/dL Normal [facility] Comment on above: Result Comment: The drugs N-Acetylcysteine and Metamizole may falselydepress this assay.Serum Triglycerides Reference Interval Normal <150 mg/dL Borderline high 150 - 199 mg/dL High 200 - 499 mg/dL Very High > or = 500 mg/dL Performed By: #### L 500.4100, L501.9520, L100.0100, L501.9985, L500.4050 ####[facility] [address] [place], [place], [id number] T4 Free Directon 05-23-2024 T4 FREE DIRECT 0.30 ng/dL Low 0.76-1.46 [facility] Comment on above: Performed By: #### L 506.0400 ####[facility] [address] [place], [place], [id number] Thyroid Stim Hormone (TSH)on 05-23-2024 TSH 132.000 uIU/mL High 0.358-3.740 [facility] Comment on above: Performed By: #### L 500.4100, L501.9520, L100.0100, L501.9985, L500.4050 ####[facility] [address] [place], [address] AFP, Tumor Markeron 05-22-20 24 AFP TUMOR BREANNE 36.9 ng/mL High 0.0-6.4 [facility] Comment on above: Order Comment: NN Result Comment: [facility] Electrochemiluminescence Immunoassay(ECLIA)Values obtained with different assay methods or kits cannotbe used interchangeably. Results cannot be interpreted asabsolute evidence of the presence or absence of malignantdisease.This test is not interpretable in females.Performed at: [address] [id number] Director: Marvin Lara PhD, Phone: [phone] Performed By: #### L 503.3590, L3300.0700, L3100.3425, L503.6075, L3100.5440, L100.9950, L503.6150 ####[facility] [address] [place], [place], [id number] ASPEN Comprehensive Panelon ASPEN TABLE Comment Normal . [facility] Comment on above: Result Comment: Auto antibody Disease Association -------- Condition Frequency ---------Antinuclear Antibody, SLE, mixed connectiveDirect (ASPEN-D) tissue diseases ---------dsDNA SLE 40 - 60% ---------Chromatin Drug induced SLE 90% SLE 48 - 97% ---------SSA (Ro) SLE 25 - 35% Sjogren's Syndrome 40 - 70% Lupus 100% ---------SSB (La) SLE 10% Sjogren's Syndrome 30% ---------Sm (anti-Manzano) SLE 15 - 30% ---------INSECTICIDE EXPERT Mixed Connective Tissue Disease 95%(U1 nRNP, SLE 30 - 50%anti-ribonucleoprotein) Polymyositis and/or Dermatomyositis 20% ---------Scl-70 (antiDNA Scleroderma (diffuse) 20 - 35%topoisomerase) Crest 13% ---------Consuelo-1 Polymyositis and/or Dermatomyositis 20 - 40% ---------Centromere B Scleroderma - Crest variant 80%Performed at: [address] [id number] Director: Marvin Lara PhD, Phone: [phone] Performed By: #### L 503.6550, L3300.0700, L3100.3425, L503.6075, L3100.5440, L100.9950, L503.6150 ####[facility] [address] [place], [address] ANTI-CENT B AB <0.2 Normal 0.0-0.9 [facility] Comment on above: Performed By: #### L 503.6550, L3300.0700, L3100.3425, L503.6075, L3100.5440, L100.9950, L503.6150 ####[facility] [address] [place], [address] ANTI-DNA (DS)AB <1 Normal 0-9 [facility] Comment on above: Result Comment: Nega tive <5 Equivocal 5 - 9 Positive >9 Performed By: #### L 503.6550, L3300.0700, L3100.3425, L503.6075, L3100.5440, L100.9950, L503.6150 ####[facility] [address] [place], [address] ANTI-CONSUELO-1 <0.2 Normal 0.0-0.9 [facility] Comment on above: Performed By: #### L 503.6550, L3300.0700, L3100.3425, L503.6075, L3100.5440, L100.9950, L503.6150 ####[facility] [address] [place], [address] ANTI-SS-A < 0.2 Normal 0.0-0.9 [facility] Comment on above: Performed By: #### L 503.6550, L3300.0700, L3100.3425, L503.6075, L3100.5440, L100.9950, L503.6150 ####[facility] [address] [place], [address] ANTI-SS-B < 0.2 Normal 0.0-0.9 [facility] Comment on above: Performed By: #### L 503.6550, L3300.0700, L3100.3425, L503.6075, L3100.5440, L100.9950, L503.6150 ####[facility] [address] [place], [address] ANTICHROMATIN <0.2 Normal 0.0-0.9 [facility] Comment on above: Performed By: #### L 503.6550, L3300.0700, L3100.3425, L503.6075, L3100.5440, L100.9950, L503.6150 ####[facility] [address] [place], [address] ANTISCLERODERM <0.2 Normal 0.0-0.9 [facility] Comment on above: Performed By: #### L 503.6550, L3300.0700, L3100.3425, L503.6075, L3100.5440, L100.9950, L503.6150 ####[facility] [address] [place], [address] INSECTICIDE EXPERT Ab 0.2 AI Normal 0.0-0.9 [facility] Comment on above: Performed By: #### L 503.6550, L3300.0700, L3100.3425, L503.6075, L3100.5440, L100.9950, L503.6150 ####[facility] [address] [place], [address] MANZANO Ab <0.2 Normal 0.0-0.9 [facility] Comment on above: Performed By: #### L 503.6550, L3300.0700, L3100.3425, L503.6075, L3100.5440, L100.9950, L503.6150 ####[facility] [address] [place], [address] GALINA + Protein Elect, Serumon 05-22-2024 Albumin [Mass/Vol] 4.0 g/dL Normal 2.9-4.4 [facility] Comment on above: Order Comment: NN Performed By: #### L 503.6550, L3300.0700, L3100.3425, L503.6075, L3100.5440, L100.9950, L503.6150 ####[facility] [address] [place], [address] Albumin/Globulin [Mass ratio] 1.2 {ratio} Normal 0.7-1.7 [facility] Comment on above: Order Comment: NN Performed By: #### L 503.6550, L3300.0700, L3100.3425, L503.6075, L3100.5440, L100.9950, L503.6150 ####[facility] [address] [place], [address] STQKU-8-JWIV 0.2 g/dL Normal 0.0-0.4 [facility] Comment on above: Order Comment: NN Performed By: #### L 503.6550, L3300.0700, L3100.3425, L503.6075, L3100.5440, L100.9950, L503.6150 ####[facility] [address] [place], [address] XDLGB-2-DWBW 0.6 g/dL Normal 0.4-1.0 [facility] Comment on above: Order Comment: NN Performed By: #### L 503.6550, L3300.0700, L3100.3425, L503.6075, L3100.5440, L100.9950, L503.6150 ####[facility] [address] [place], [address] BETA GLOBULIN 1.0 g/dL Normal 0.7-1.3 [facility] Comment on above: Order Comment: NN Performed By: #### L 503.6550, L3300.0700, L3100.3425, L503.6075, L3100.5440, L100.9950, L503.6150 ####[facility] [address] [place], [address] GAMMA GLOBULIN 1.7 g/dL Normal 0.4-1.8 [facility] Comment on above: Order Comment: NN Performed By: #### L 503.6550, L3300.0700, L3100.3425, L503.6075, L3100.5440, L100.9950, L503.6150 ####[facility] [address] [place], [address] Globulin (S) [Mass/Vol] 3.4 g/dL Normal 2.2-3.9 [facility] Comment on above: Order Comment: NN Performed By: #### L 503.6550, L3300.0700, L3100.3425, L503.6075, L3100.5440, L100.9950, L503.6150 ####[facility] [address] [place], [address] GALINA RESULT,S Comment Normal . [facility] Comment on above: Order Comment: NN Result Comment: No m onoclonality detected. Performed By: #### L 503.6550, L3300.0700, L3100.3425, L503.6075, L3100.5440, L100.9950, L503.6150 ####[facility] [address] [place], [address] IMMUNOGLOB A QN 438 mg/dL High 87-352 [facility] Comment on above: Order Comment: NN Performed By: #### L 503.6550, L3300.0700, L3100.3425, L503.6075, L3100.5440, L100.9950, L503.6150 ####[facility] [address] [place], [address] IMMUNOGLOB G QN 1499 mg/dL Normal 586-1602 [facility] Comment on above: Order Comment: NN Performed By: #### L 503.6550, L3300.0700, L3100.3425, L503.6075, L3100.5440, L100.9950, L503.6150 ####[facility] [address] [place], [address] IMMUNOGLOB M QN 321 mg/dL High 26-217 [facility] Comment on above: Order Comment: NN Performed By: #### L 503.6550, L3300.0700, L3100.3425, L503.6075, L3100.5440, L100.9950, L503.6150 ####[facility] [address] [place], [place], [address] M-Jayro Not Observed Normal Not Observed [facility] Comment on above: Order Comment: NN Performed By: #### L 503.6550, L3300.0700, L3100.3425, L503.6075, L3100.5440, L100.9950, L503.6150 ####[facility] [address] [place], [place], [id number] NOTE: Comment Normal . [facility] Comment on above: Order Comment: NN Result Comment: Prot ein electrophoresis scan will follow via computer,mail, or arc cutter delivery. Performed By: #### L 503.6550, L3300.0700, L3100.3425, L503.6075, L3100.5440, L100.9950, L503.6150 ####[facility] [address] [place], [place], [id number] Protein [Mass/Vol] 7.4 g/dL Normal 6.0-8.5 [facility] Comment on above: Order Comment: NN Performed By: #### L 503.6550, L3300.0700, L3100.3425, L503.6075, L3100.5440, L100.9950, L503.6150 ####[facility] [address] [place], [place], [id number] Ferritinon 05-18-2024 Ferritin [Mass/Vol] 95 ng/mL Normal 8-252 [facility] Comment on above: Performed By: #### L 503.6550, L3300.0700, L3100.3425, L503.6075, L3100.5440, L100.9950, L503.6150 ####[facility] [address] [place], [place], [id number] Gastroenterology Visit Repor ton 05-18-2024 Gastroenterology Visit Report Normal [facility] Ironon 05-18-2024 Iron [Mass/Vol] 87 ug/dL Normal 50-170 [facility] Comment on above: Performed By: #### L 503.6550, L3300.0700, L3100.3425, L503.6075, L3100.5440, L100.9950, L503.6150 ####[facility] [address] [place], [address] Iron Binding Capacity,Totalo n 05-18-2024 TIBC 322 ug/dL Normal 250-450 [facility] Comment on above: Performed By: #### L 503.6550, L3300.0700, L3100.3425, L503.6075, L3100.5440, L100.9950, L503.6150 ####[facility] [address] [place], [address] Retic Panelon 05-18-2024 IM RET FRACTION 2.80 Low 3.00-15.90 [facility] Comment on above: Performed By: #### L 503.6550, L3300.0700, L3100.3425, L503.6075, L3100.5440, L100.9950, L503.6150 ####[facility] [address] [place], [address] RET-HE 33.6 pg Normal 30-35 [facility] Comment on above: Performed By: #### L 503.6550, L3300.0700, L3100.3425, L503.6075, L3100.5440, L100.9950, L503.6150 ####[facility] [address] [place], [address] Retic Count 0.75 Normal 0.5-1.5 [facility] Comment on above: Performed By: #### L 503.6550, L3300.0700, L3100.3425, L503.6075, L3100.5440, L100.9950, L503.6150 ####[facility] [address] [place], [place], [address] CT Abd/Pelvis W/WO Contrasto n 04-04-2024 CT Abd/Pelvis W/WO Contrast Normal [facility] Stress Reporton 04-02-2024 Stress Report Normal [facility] AFP, Tumor Markeron 03-21-20 AFP TUMOR BREANNE 13.2 ng/mL High 0.0-6.4 [facility] Comment on above: Order Comment: Test( s) 378155-Prbhvc, Serum or Plasmawas developed and its performance characteristicsdetermined by [employer]. It has not been cleared or approvedby the Food and Drug Administration.NN Result Comment: [facility] [employer] Electrochemiluminescence Immunoassay(ECLIA)Values obtained with different assay methods or kits cannotbe used interchangeably. Results cannot be interpreted asabsolute evidence of the presence or absence of malignantdisease.This test is not interpretable in females. Performed By: #### L 501.6710, L100.0100, L503.6030, L3300.0100, L500.4100, L3890.6005, L800.1280, L3100.5450, L3100.6900, L506.1000, L3300.1200, L504.2610, L300.3900, L3000.0375, L803.2200, L3400.0700, L501.9985, L503.6550, L500.4050, L3100.1850, L3300.0700 ####[facility] [address] [place], [address] ANCAon 03-21-2024 Atypical pANCA <1:20 Normal Neg:<1:20 [facility] Comment on above: Order Comment: Test( s) 554400-Sdbvzm, Serum or Plasmawas developed and its performance characteristicsdetermined by [employer]. It has not been cleared or approvedby the Food and Drug Administration.NN Result Comment: The atypical pANCA pattern has been observed in asignificant percentage of patients with ulcerative colitis,primary sclerosing cholangitis and autoimmune hepatitis. Performed By: #### L 501.6710, L100.0100, L503.6030, L3300.0100, L500.4100, L3890.6005, L800.1280, L3100.5450, L3100.6900, L506.1000, L3300.1200, L504.2610, L300.3900, L3000.0375, L803.2200, L3400.0700, L501.9985, L503.6550, L500.4050, L3100.1850, L3300.0700 ####[facility] [address] [facility]. [place], [place], [id number] Cytoplasmic Ab <1:20 Normal Neg:<1:20 [facility] Comment on above: Order Comment: Test( s) 612887-Enxayi, Serum or Plasmawas developed and its performance characteristicsdetermined by [employer]. It has not been cleared or approvedby the Food and Drug Administration.NN Performed By: #### L 501.6710, L100.0100, L503.6030, L3300.0100, L500.4100, L3890.6005, L800.1280, L3100.5450, L3100.6900, L506.1000, L3300.1200, L504.2610, L300.3900, L3000.0375, L803.2200, L3400.0700, L501.9985, L503.6550, L500.4050, L3100.1850, L3300.0700 ####[facility] [address] [facility]. [place], [place], [id number] Perinuclear Ab. <1:20 Normal Neg:<1:20 [facility] Comment on above: Order Comment: Test( s) 840144-Chhgho, Serum or Plasmawas developed and its performance characteristicsdetermined by [employer]. It has not been cleared or approvedby the Food and Drug Administration.NN Result Comment: The presence of positive fluorescence exhibiting P-ANCA orC-ANCA patterns alone is not specific for the diagnosis ofWegener's Granulomatosis (WG) or microscopic polyangiitis.Decisions about treatment should not be based solely onANCA IFA results. The International ANCA Group Consensusrecommends follow up testing of positive sera with both LA-3 and MPO-ANCA enzyme immunoassays. As many as 5% serumsamples are positive only by EIA. Ref. AM J Clin Eksibv6183;111:507-513. Performed By: #### L 501.6710, L100.0100, L503.6030, L3300.0100, L500.4100, L3890.6005, L800.1280, L3100.5450, L3100.6900, L506.1000, L3300.1200, L504.2610, L300.3900, L3000.0375, L803.2200, L3400.0700, L501.9985, L503.6550, L500.4050, L3100.1850, L3300.0700 ####[facility] [address] [place], [address] Angiotensin Convert Enzymeon 03-21-2024 ANGIOT-CONV.ENZ 26 U/L Normal 14-82 [facility] Comment on above: Order Comment: Test( s) 723776-Yiejsx, Serum or Plasmawas developed and its performance characteristicsdetermined by [employer]. It has not been cleared or approvedby the Food and Drug Administration.NN Performed By: #### L 501.6710, L100.0100, L503.6030, L3300.0100, L500.4100, L3890.6005, L800.1280, L3100.5450, L3100.6900, L506.1000, L3300.1200, L504.2610, L300.3900, L3000.0375, L803.2200, L3400.0700, L501.9985, L503.6550, L500.4050, L3100.1850, L3300.0700 ####[facility] [address] [place], [place], [id number] Anti-Smooth Muscle ABSon ANTISMOOTH MUSC 9 Units Normal 0-19 [facility] Comment on above: Order Comment: Test( s) 805258-Hkuifp, Serum or Plasmawas developed and its performance characteristicsdetermined by [employer]. It has not been cleared or approvedby the Food and Drug Administration.NN Result Comment: Nega tive 0 - 19 Weak positive 20 - 30 Moderate to strong positive >30 Actin Antibodies are found in 52-85% of patients with autoimmune hepatitis or chronic active hepatitis and in 22% of patients with primary biliary cirrhosis. Performed By: #### L 501.6710, L100.0100, L503.6030, L3300.0100, L500.4100, L3890.6005, L800.1280, L3100.5450, L3100.6900, L506.1000, L3300.1200, L504.2610, L300.3900, L3000.0375, L803.2200, L3400.0700, L501.9985, L503.6550, L500.4050, L3100.1850, L3300.0700 ####[facility] [address] [facility] [place], [address] Ceruloplasminon 03-21-2024 CERULOPLASMIN 26.2 mg/dL Normal 19.0-39.0 [facility] Comment on above: Order Comment: Test( s) 789032-Akbqaf, Serum or Plasmawas developed and its performance characteristicsdetermined by [employer]. It has not been cleared or approvedby the Food and Drug Administration.NN Performed By: #### L 501.6710, L100.0100, L503.6030, L3300.0100, L500.4100, L3890.6005, L800.1280, L3100.5450, L3100.6900, L506.1000, L3300.1200, L504.2610, L300.3900, L3000.0375, L803.2200, L3400.0700, L501.9985, L503.6550, L500.4050, L3100.1850, L3300.0700 ####[facility] [address] [facility]. [place], [place], [id number] Copper, Serum or Plasmaon COPPER, SERUM 106 ug/dL Normal 80-158 [facility] Comment on above: Order Comment: Test( s) 307622-Jfnkyg, Serum or Plasmawas developed and its performance characteristicsdetermined by [employer]. It has not been cleared or approvedby the Food and Drug Administration.NN Result Comment: Dete ction Limit = 5 Performed By: #### L 501.6710, L100.0100, L503.6030, L3300.0100, L500.4100, L3890.6005, L800.1280, L3100.5450, L3100.6900, L506.1000, L3300.1200, L504.2610, L300.3900, L3000.0375, L803.2200, L3400.0700, L501.9985, L503.6550, L500.4050, L3100.1850, L3300.0700 ####[facility] [address] [place], [place], [address] Haptoglobinon 03-21-2024 HAPTOGLOBIN 128 mg/dL Normal 42-296 [facility] Comment on above: Order Comment: Test( s) 925850-Bopjov, Serum or Plasmawas developed and its performance characteristicsdetermined by [employer]. It has not been cleared or approvedby the Food and Drug Administration.NN Result Comment: Perf ormed at: [facility] [employer] [id number] Director: Marvin Lara PhD, Phone: [phone] at: [facility] [employer] [id number] Director: Brent Mcgowan MD, Phone: [phone] Performed By: #### L 501.6710, L100.0100, L503.6030, L3300.0100, L500.4100, L3890.6005, L800.1280, L3100.5450, L3100.6900, L506.1000, L3300.1200, L504.2610, L300.3900, L3000.0375, L803.2200, L3400.0700, L501.9985, L503.6550, L500.4050, L3100.1850, L3300.0700 ####[facility] [address] [facility]. [place], [place], [address] Hepatitis Panel Acuteon 03-10 COMMENT Comment Normal . [facility] Comment on above: Order Comment: Test( s) 422247-Kovyzq, Serum or Plasmawas developed and its performance characteristicsdetermined by [employer]. It has not been cleared or approvedby the Food and Drug Administration.NN Result Comment: Not infected with HCV unless early or acute infection issuspected (which may be delayed in an immunocompromisedindividual), or other evidence exists to indicate HCVinfection. Performed By: #### L 501.6710, L100.0100, L503.6030, L3300.0100, L500.4100, L3890.6005, L800.1280, L3100.5450, L3100.6900, L506.1000, L3300.1200, L504.2610, L300.3900, L3000.0375, L803.2200, L3400.0700, L501.9985, L503.6550, L500.4050, L3100.1850, L3300.0700 ####[facility] [address] [facility]. [place], [place], [address] HEP B CORE,IgM Negative Normal Negative [facility] Comment on above: Order Comment: Test( s) 031627-Yootaj, Serum or Plasmawas developed and its performance characteristicsdetermined by [employer]. It has not been cleared or approvedby the Food and Drug Administration.NN Performed By: #### L 501.6710, L100.0100, L503.6030, L3300.0100, L500.4100, L3890.6005, L800.1280, L3100.5450, L3100.6900, L506.1000, L3300.1200, L504.2610, L300.3900, L3000.0375, L803.2200, L3400.0700, L501.9985, L503.6550, L500.4050, L3100.1850, L3300.0700 ####[facility] [address] [place], [place], [id number] HEP B SURF AG Negative Normal Negative [facility] Comment on above: Order Comment: Test( s) 603591-Rohcxt, Serum or Plasmawas developed and its performance characteristicsdetermined by [employer]. It has not been cleared or approvedby the Food and Drug Administration.NN Performed By: #### L 501.6710, L100.0100, L503.6030, L3300.0100, L500.4100, L3890.6005, L800.1280, L3100.5450, L3100.6900, L506.1000, L3300.1200, L504.2610, L300.3900, L3000.0375, L803.2200, L3400.0700, L501.9985, L503.6550, L500.4050, L3100.1850, L3300.0700 ####[facility] [address] [place], [address] HEP C VIRUS AB Non-Reactive Normal Non Reactive [facility] Comment on above: Order Comment: Test( s) 968217-Nxldvu, Serum or Plasmawas developed and its performance characteristicsdetermined by [employer]. It has not been cleared or approvedby the Food and Drug Administration.NN Performed By: #### L 501.6710, L100.0100, L503.6030, L3300.0100, L500.4100, L3890.6005, L800.1280, L3100.5450, L3100.6900, L506.1000, L3300.1200, L504.2610, L300.3900, L3000.0375, L803.2200, L3400.0700, L501.9985, L503.6550, L500.4050, L3100.1850, L3300.0700 ####[facility] [address] [place], [place], [id number] HEPATITIS A-IgM Negative Normal Negative [facility] Comment on above: Order Comment: Test( s) 109640-Jmupty, Serum or Plasmawas developed and its performance characteristicsdetermined by [employer]. It has not been cleared or approvedby the Food and Drug Administration.NN Performed By: #### L 501.6710, L100.0100, L503.6030, L3300.0100, L500.4100, L3890.6005, L800.1280, L3100.5450, L3100.6900, L506.1000, L3300.1200, L504.2610, L300.3900, L3000.0375, L803.2200, L3400.0700, L501.9985, L503.6550, L500.4050, L3100.1850, L3300.0700 ####[facility] [address] [place], [address] ASPEN w/ Reflex Mult Confirmon 03-20-2024 ASPEN,DIRECT Negative Normal Negative [facility] Comment on above: Result Comment: Perf ormed at: [facility] [address] [id number] Director: Marvin Lara PhD, Phone: [phone] Performed By: #### L 501.6710, L100.0100, L503.6030, L3300.0100, L500.4100, L3890.6005, L800.1280, L3100.5450, L3100.6900, L506.1000, L3300.1200, L504.2610, L300.3900, L3000.0375, L803.2200, L3400.0700, L501.9985, L503.6550, L500.4050, L3100.1850, L3300.0700 ####[facility] [address] [place], [address] Anti-Mitochondrial ABon - ANTIMITOCHON AB <20.0 Normal 0.0-20.0 [facility] Comment on above: Result Comment: Nega tive 0.0 - 20.0 Equivocal 20.1 - 24.9 Positive >24.9Mitochondrial (M2) Antibodies are found in 90-96% ofpatients with primary biliary cirrhosis. Performed By: #### L 501.6710, L100.0100, L503.6030, L3300.0100, L500.4100, L3890.6005, L800.1280, L3100.5450, L3100.6900, L506.1000, L3300.1200, L504.2610, L300.3900, L3000.0375, L803.2200, L3400.0700, L501.9985, L503.6550, L500.4050, L3100.1850, L3300.0700 ####[facility] [address] [place], [address] ABD Limited w/ Elastographyo n 03-19-2024 ABD Limited w/ Elastography Normal [facility] CBC W/Diff, Automatedon 03-10 Absolute Lymph 1.89 X10 3/uL Normal 0.83-4.51 [facility] Comment on above: Performed By: #### L 501.6710, L100.0100, L503.6030, L3300.0100, L500.4100, L3890.6005, L800.1280, L3100.5450, L3100.6900, L506.1000, L3300.1200, L504.2610, L300.3900, L3000.0375, L803.2200, L3400.0700, L501.9985, L503.6550, L500.4050, L3100.1850, L3300.0700 ####[facility] [address] [place], [place], [id number] Absolute Neut 3.4 X10 3/uL Normal 2.0-7.7 [facility] Comment on above: Performed By: #### L 501.6710, L100.0100, L503.6030, L3300.0100, L500.4100, L3890.6005, L800.1280, L3100.5450, L3100.6900, L506.1000, L3300.1200, L504.2610, L300.3900, L3000.0375, L803.2200, L3400.0700, L501.9985, L503.6550, L500.4050, L3100.1850, L3300.0700 ####[facility] [address] [place], [place], [phone]) Basophils/100 WBC (Bld) 1.2 % High 0-1 [facility] Comment on above: Performed By: #### L 501.6710, L100.0100, L503.6030, L3300.0100, L500.4100, L3890.6005, L800.1280, L3100.5450, L3100.6900, L506.1000, L3300.1200, L504.2610, L300.3900, L3000.0375, L803.2200, L3400.0700, L501.9985, L503.6550, L500.4050, L3100.1850, L3300.0700 ####[facility] [address] [place], [address](804) Eosinophils/100 WBC (Bld) 2.5 % Normal 0-5 [facility] Comment on above: Performed By: #### L 501.6710, L100.0100, L503.6030, L3300.0100, L500.4100, L3890.6005, L800.1280, L3100.5450, L3100.6900, L506.1000, L3300.1200, L504.2610, L300.3900, L3000.0375, L803.2200, L3400.0700, L501.9985, L503.6550, L500.4050, L3100.1850, L3300.0700 ####[facility] [address] [facility] [place], [address](065) Erythrocyte distribution width (RBC) [Ratio] 13.8 % Normal 11.6-14.6 [facility] Comment on above: Performed By: #### L 501.6710, L100.0100, L503.6030, L3300.0100, L500.4100, L3890.6005, L800.1280, L3100.5450, L3100.6900, L506.1000, L3300.1200, L504.2610, L300.3900, L3000.0375, L803.2200, L3400.0700, L501.9985, L503.6550, L500.4050, L3100.1850, L3300.0700 ####[facility] [address] [place], [place], [phone] Hematocrit (Bld) [Volume fraction] 39.9 % Normal 37-47 [facility] Comment on above: Performed By: #### L 501.6710, L100.0100, L503.6030, L3300.0100, L500.4100, L3890.6005, L800.1280, L3100.5450, L3100.6900, L506.1000, L3300.1200, L504.2610, L300.3900, L3000.0375, L803.2200, L3400.0700, L501.9985, L503.6550, L500.4050, L3100.1850, L3300.0700 ####[facility] [address] [place], [place], [phone] Hemoglobin (Bld) [Mass/Vol] 12.6 g/dL Normal 12.0-15.0 [facility] Comment on above: Performed By: #### L 501.6710, L100.0100, L503.6030, L3300.0100, L500.4100, L3890.6005, L800.1280, L3100.5450, L3100.6900, L506.1000, L3300.1200, L504.2610, L300.3900, L3000.0375, L803.2200, L3400.0700, L501.9985, L503.6550, L500.4050, L3100.1850, L3300.0700 ####[facility] [address] [facility] [place], [address] IG% 0.300 Normal 0.0-0.9 [facility] Comment on above: Result Comment: IG% - Immature Granulocytes (promyelocytes, myelocytes andmetamyelocytes) > 1% indicates that a LEFT SHIFT is Present. Performed By: #### L 501.6710, L100.0100, L503.6030, L3300.0100, L500.4100, L3890.6005, L800.1280, L3100.5450, L3100.6900, L506.1000, L3300.1200, L504.2610, L300.3900, L3000.0375, L803.2200, L3400.0700, L501.9985, L503.6550, L500.4050, L3100.1850, L3300.0700 ####[facility] [address] [facility] [place], [address] Lymphocytes/100 WBC (Bld) 31.9 % Normal 19-41 [facility] Comment on above: Performed By: #### L 501.6710, L100.0100, L503.6030, L3300.0100, L500.4100, L3890.6005, L800.1280, L3100.5450, L3100.6900, L506.1000, L3300.1200, L504.2610, L300.3900, L3000.0375, L803.2200, L3400.0700, L501.9985, L503.6550, L500.4050, L3100.1850, L3300.0700 ####[facility] [address] [facility] [place], [address] MCH (RBC) [Entitic mass] 30.8 pg Normal 27.0-32.0 [facility] Comment on above: Performed By: #### L 501.6710, L100.0100, L503.6030, L3300.0100, L500.4100, L3890.6005, L800.1280, L3100.5450, L3100.6900, L506.1000, L3300.1200, L504.2610, L300.3900, L3000.0375, L803.2200, L3400.0700, L501.9985, L503.6550, L500.4050, L3100.1850, L3300.0700 ####[facility] [address] [place], [place], [phone] MCHC (RBC) [Mass/Vol] 31.6 g/dL Low 32-36 [facility] Comment on above: Performed By: #### L 501.6710, L100.0100, L503.6030, L3300.0100, L500.4100, L3890.6005, L800.1280, L3100.5450, L3100.6900, L506.1000, L3300.1200, L504.2610, L300.3900, L3000.0375, L803.2200, L3400.0700, L501.9985, L503.6550, L500.4050, L3100.1850, L3300.0700 ####[facility] [address] [place], [place], [phone] MCV (RBC) [Entitic vol] 97.6 fL Normal 81-99 [facility] Comment on above: Performed By: #### L 501.6710, L100.0100, L503.6030, L3300.0100, L500.4100, L3890.6005, L800.1280, L3100.5450, L3100.6900, L506.1000, L3300.1200, L504.2610, L300.3900, L3000.0375, L803.2200, L3400.0700, L501.9985, L503.6550, L500.4050, L3100.1850, L3300.0700 ####[facility] [address] [facility] [place], [address] Monocytes/100 WBC (Bld) 7.1 % Normal 0-10 [facility] Comment on above: Performed By: #### L 501.6710, L100.0100, L503.6030, L3300.0100, L500.4100, L3890.6005, L800.1280, L3100.5450, L3100.6900, L506.1000, L3300.1200, L504.2610, L300.3900, L3000.0375, L803.2200, L3400.0700, L501.9985, L503.6550, L500.4050, L3100.1850, L3300.0700 ####[facility] [address] [facility]. [place], [place], [phone](400) Neutrophils/100 WBC (Bld) 57.0 % Normal 47-70 [facility] Comment on above: Performed By: #### L 501.6710, L100.0100, L503.6030, L3300.0100, L500.4100, L3890.6005, L800.1280, L3100.5450, L3100.6900, L506.1000, L3300.1200, L504.2610, L300.3900, L3000.0375, L803.2200, L3400.0700, L501.9985, L503.6550, L500.4050, L3100.1850, L3300.0700 ####[facility] [address] [facility] [place], [address] Nucleated RBC (Bld) [#/Vol] 0 10*3/uL Normal 0-5 [facility] Comment on above: Performed By: #### L 501.6710, L100.0100, L503.6030, L3300.0100, L500.4100, L3890.6005, L800.1280, L3100.5450, L3100.6900, L506.1000, L3300.1200, L504.2610, L300.3900, L3000.0375, L803.2200, L3400.0700, L501.9985, L503.6550, L500.4050, L3100.1850, L3300.0700 ####[facility] [address] [place], [place], [phone](217) Platelet mean volume (Bld) [Entitic vol] 10.4 fL Normal 6.2-12.0 [facility] Comment on above: Performed By: #### L 501.6710, L100.0100, L503.6030, L3300.0100, L500.4100, L3890.6005, L800.1280, L3100.5450, L3100.6900, L506.1000, L3300.1200, L504.2610, L300.3900, L3000.0375, L803.2200, L3400.0700, L501.9985, L503.6550, L500.4050, L3100.1850, L3300.0700 ####[facility] [address] [place], [place], [address](041) Platelets (Bld) [#/Vol] 259 10*3/uL Normal 150-450 [facility] Comment on above: Performed By: #### L 501.6710, L100.0100, L503.6030, L3300.0100, L500.4100, L3890.6005, L800.1280, L3100.5450, L3100.6900, L506.1000, L3300.1200, L504.2610, L300.3900, L3000.0375, L803.2200, L3400.0700, L501.9985, L503.6550, L500.4050, L3100.1850, L3300.0700 ####[facility] [address] [place], [place], [phone](219) RBC (Bld) [#/Vol] 4.09 10*6/uL Low 4.2-5.4 [facility] Comment on above: Performed By: #### L 501.6710, L100.0100, L503.6030, L3300.0100, L500.4100, L3890.6005, L800.1280, L3100.5450, L3100.6900, L506.1000, L3300.1200, L504.2610, L300.3900, L3000.0375, L803.2200, L3400.0700, L501.9985, L503.6550, L500.4050, L3100.1850, L3300.0700 ####[facility] I[address]lpbtzet8554 [facility]. [place], [place], [phone] RDW SD 49.7 fl High 35.1-43.9 [facility] Comment on above: Performed By: #### L 501.6710, L100.0100, L503.6030, L3300.0100, L500.4100, L3890.6005, L800.1280, L3100.5450, L3100.6900, L506.1000, L3300.1200, L504.2610, L300.3900, L3000.0375, L803.2200, L3400.0700, L501.9985, L503.6550, L500.4050, L3100.1850, L3300.0700 ####[facility] L[address]xc[address]brif38[address] [facility]. [place], [place], [phone] WBC (Bld) [#/Vol] 5.9 10*3/uL Normal 4.4-11.0 [facility] Comment on above: Performed By: #### L 501.6710, L100.0100, L503.6030, L3300.0100, L500.4100, L3890.6005, L800.1280, L3100.5450, L3100.6900, L506.1000, L3300.1200, L504.2610, L300.3900, L3000.0375, L803.2200, L3400.0700, L501.9985, L503.6550, L500.4050, L3100.1850, L3300.0700 ####[facility] [address] [place], [place], [phone] CRPon 03-19-2024 C-REACTIVE PROT < 2.90 Normal 0.0-3.0 [facility] Comment on above: Order Comment: N1 Result Comment: C-Re active Protein (CRP) provides useful information for thediagnosis, therapy and monitoring of inflammatory processesand associated diseases. For the evaluation of Relative Riskfor Cardiovascular Disease, a High Sensitivity CRP (HSCRP)should be ordered. Performed By: #### L 501.6710, L100.0100, L503.6030, L3300.0100, L500.4100, L3890.6005, L800.1280, L3100.5450, L3100.6900, L506.1000, L3300.1200, L504.2610, L300.3900, L3000.0375, L803.2200, L3400.0700, L501.9985, L503.6550, L500.4050, L3100.1850, L3300.0700 ####[facility] [address] [place], [place], [phone] Comprehensive Metabolic Prof ilon 03-19-2024 Albumin [Mass/Vol] 3.7 g/dL Normal 3.2-5.0 [facility] Comment on above: Order Comment: N1 Performed By: #### L 501.6710, L100.0100, L503.6030, L3300.0100, L500.4100, L3890.6005, L800.1280, L3100.5450, L3100.6900, L506.1000, L3300.1200, L504.2610, L300.3900, L3000.0375, L803.2200, L3400.0700, L501.9985, L503.6550, L500.4050, L3100.1850, L3300.0700 ####[facility] [address] [place], [place], [phone] Albumin/Globulin [Mass ratio] 0.9 {ratio} Normal 0.9-2.4 [facility] Comment on above: Order Comment: N1 Performed By: #### L 501.6710, L100.0100, L503.6030, L3300.0100, L500.4100, L3890.6005, L800.1280, L3100.5450, L3100.6900, L506.1000, L3300.1200, L504.2610, L300.3900, L3000.0375, L803.2200, L3400.0700, L501.9985, L503.6550, L500.4050, L3100.1850, L3300.0700 ####[facility] [address] [place], [place], [phone] ALK P 86 U/L Normal 45-117 [facility] Comment on above: Order Comment: N1 Performed By: #### L 501.6710, L100.0100, L503.6030, L3300.0100, L500.4100, L3890.6005, L800.1280, L3100.5450, L3100.6900, L506.1000, L3300.1200, L504.2610, L300.3900, L3000.0375, L803.2200, L3400.0700, L501.9985, L503.6550, L500.4050, L3100.1850, L3300.0700 ####[facility] [address] [place], [place], [phone] ALT [Catalytic activity/Vol] 27 U/L Normal 13-56 [facility] Comment on above: Order Comment: N1 Performed By: #### L 501.6710, L100.0100, L503.6030, L3300.0100, L500.4100, L3890.6005, L800.1280, L3100.5450, L3100.6900, L506.1000, L3300.1200, L504.2610, L300.3900, L3000.0375, L803.2200, L3400.0700, L501.9985, L503.6550, L500.4050, L3100.1850, L3300.0700 ####[facility] [address] [place], [place], [phone] AST [Catalytic activity/Vol] 28 U/L Normal 15-37 [facility] Comment on above: Order Comment: N1 Performed By: #### L 501.6710, L100.0100, L503.6030, L3300.0100, L500.4100, L3890.6005, L800.1280, L3100.5450, L3100.6900, L506.1000, L3300.1200, L504.2610, L300.3900, L3000.0375, L803.2200, L3400.0700, L501.9985, L503.6550, L500.4050, L3100.1850, L3300.0700 ####[facility] [address] [place], [address] Bilirubin [Mass/Vol] 1.00 mg/dL Normal 0.20-1.00 [facility] Comment on above: Order Comment: N1 Result Comment: For patients on eltrombopag therapy, use of Dimension [place] TBIL is not recommended. Performed By: #### L 501.6710, L100.0100, L503.6030, L3300.0100, L500.4100, L3890.6005, L800.1280, L3100.5450, L3100.6900, L506.1000, L3300.1200, L504.2610, L300.3900, L3000.0375, L803.2200, L3400.0700, L501.9985, L503.6550, L500.4050, L3100.1850, L3300.0700 ####[facility] [address] [place], [address] BUN/CRE 10.4 RATIO Normal 10-20 [facility] Comment on above: Order Comment: N1 Performed By: #### L 501.6710, L100.0100, L503.6030, L3300.0100, L500.4100, L3890.6005, L800.1280, L3100.5450, L3100.6900, L506.1000, L3300.1200, L504.2610, L300.3900, L3000.0375, L803.2200, L3400.0700, L501.9985, L503.6550, L500.4050, L3100.1850, L3300.0700 ####[facility] [address] [place], [address] CA,Total 8.7 mg/dL Normal 8.5-10.1 [facility] Comment on above: Order Comment: N1 Performed By: #### L 501.6710, L100.0100, L503.6030, L3300.0100, L500.4100, L3890.6005, L800.1280, L3100.5450, L3100.6900, L506.1000, L3300.1200, L504.2610, L300.3900, L3000.0375, L803.2200, L3400.0700, L501.9985, L503.6550, L500.4050, L3100.1850, L3300.0700 ####[facility] [address] [place], [address] Chloride [Moles/Vol] 107 mmol/L Normal 98-107 [facility] Comment on above: Order Comment: N1 Performed By: #### L 501.6710, L100.0100, L503.6030, L3300.0100, L500.4100, L3890.6005, L800.1280, L3100.5450, L3100.6900, L506.1000, L3300.1200, L504.2610, L300.3900, L3000.0375, L803.2200, L3400.0700, L501.9985, L503.6550, L500.4050, L3100.1850, L3300.0700 ####[facility] [address] [place], [place], [id number] CO2 [Moles/Vol] 28.0 mmol/L Normal 21.0-32.0 [facility] Comment on above: Order Comment: N1 Performed By: #### L 501.6710, L100.0100, L503.6030, L3300.0100, L500.4100, L3890.6005, L800.1280, L3100.5450, L3100.6900, L506.1000, L3300.1200, L504.2610, L300.3900, L3000.0375, L803.2200, L3400.0700, L501.9985, L503.6550, L500.4050, L3100.1850, L3300.0700 ####[facility] [address] [place], [address] Creatinine [Mass/Vol] 1.06 mg/dL High 0.55-1.02 [facility] Comment on above: Order Comment: N1 Result Comment: The validity of the calculated GFR GFRAA in patients over70 years has not been determined. Clinical correlation isessential. Performed By: #### L 501.6710, L100.0100, L503.6030, L3300.0100, L500.4100, L3890.6005, L800.1280, L3100.5450, L3100.6900, L506.1000, L3300.1200, L504.2610, L300.3900, L3000.0375, L803.2200, L3400.0700, L501.9985, L503.6550, L500.4050, L3100.1850, L3300.0700 ####[facility] [address] [place], [address] EST GFR - AA 72 mL/min Normal >60 [facility] Comment on above: Order Comment: N1 Result Comment: Afri can Trinidadian GFR Calc Performed By: #### L 501.6710, L100.0100, L503.6030, L3300.0100, L500.4100, L3890.6005, L800.1280, L3100.5450, L3100.6900, L506.1000, L3300.1200, L504.2610, L300.3900, L3000.0375, L803.2200, L3400.0700, L501.9985, L503.6550, L500.4050, L3100.1850, L3300.0700 ####[facility] [address] [facility] [place], [address] GAP 3 Low 5-15 [facility] Comment on above: Order Comment: N1 Performed By: #### L 501.6710, L100.0100, L503.6030, L3300.0100, L500.4100, L3890.6005, L800.1280, L3100.5450, L3100.6900, L506.1000, L3300.1200, L504.2610, L300.3900, L3000.0375, L803.2200, L3400.0700, L501.9985, L503.6550, L500.4050, L3100.1850, L3300.0700 ####[facility] [address] [place], [address] GFR/1.73 sq M.predicted among non-blacks MDRD (S/P/Bld) [Vol rate/Area] 59 mL/min/{1.73_m2} Low >60 [facility] Comment on above: Order Comment: N1 Result Comment: Non- GFR Calc Performed By: #### L 501.6710, L100.0100, L503.6030, L3300.0100, L500.4100, L3890.6005, L800.1280, L3100.5450, L3100.6900, L506.1000, L3300.1200, L504.2610, L300.3900, L3000.0375, L803.2200, L3400.0700, L501.9985, L503.6550, L500.4050, L3100.1850, L3300.0700 ####[facility] [address] [place], [place], [phone](337) Globulin (S) [Mass/Vol] 4.2 g/dL Normal 2.2-4.2 [facility] Comment on above: Order Comment: N1 Performed By: #### L 501.6710, L100.0100, L503.6030, L3300.0100, L500.4100, L3890.6005, L800.1280, L3100.5450, L3100.6900, L506.1000, L3300.1200, L504.2610, L300.3900, L3000.0375, L803.2200, L3400.0700, L501.9985, L503.6550, L500.4050, L3100.1850, L3300.0700 ####[facility] [address] [place], [place], [phone](662) Glucose [Mass/Vol] 83 mg/dL Normal 74-106 [facility] Comment on above: Order Comment: N1 Performed By: #### L 501.6710, L100.0100, L503.6030, L3300.0100, L500.4100, L3890.6005, L800.1280, L3100.5450, L3100.6900, L506.1000, L3300.1200, L504.2610, L300.3900, L3000.0375, L803.2200, L3400.0700, L501.9985, L503.6550, L500.4050, L3100.1850, L3300.0700 ####[facility] [address] [facility] [address] [place], [place], [phone](294) Potassium [Moles/Vol] 4.3 mmol/L Normal 3.5-5.1 [facility] Comment on above: Order Comment: N1 Performed By: #### L 501.6710, L100.0100, L503.6030, L3300.0100, L500.4100, L3890.6005, L800.1280, L3100.5450, L3100.6900, L506.1000, L3300.1200, L504.2610, L300.3900, L3000.0375, L803.2200, L3400.0700, L501.9985, L503.6550, L500.4050, L3100.1850, L3300.0700 ####[facility] [address] [facility] [place], [address] Sodium [Moles/Vol] 138 mmol/L Normal 136-145 [facility] Comment on above: Order Comment: N1 Performed By: #### L 501.6710, L100.0100, L503.6030, L3300.0100, L500.4100, L3890.6005, L800.1280, L3100.5450, L3100.6900, L506.1000, L3300.1200, L504.2610, L300.3900, L3000.0375, L803.2200, L3400.0700, L501.9985, L503.6550, L500.4050, L3100.1850, L3300.0700 ####[facility] [address] [facility] [place], [address] T PROT 7.9 g/dL Normal 6.4-8.2 [facility] Comment on above: Order Comment: N1 Performed By: #### L 501.6710, L100.0100, L503.6030, L3300.0100, L500.4100, L3890.6005, L800.1280, L3100.5450, L3100.6900, L506.1000, L3300.1200, L504.2610, L300.3900, L3000.0375, L803.2200, L3400.0700, L501.9985, L503.6550, L500.4050, L3100.1850, L3300.0700 ####[facility] [address] [place], [place], [id number] Urea nitrogen [Mass/Vol] 11 mg/dL Normal 7-18 [facility] Comment on above: Order Comment: N1 Performed By: #### L 501.6710, L100.0100, L503.6030, L3300.0100, L500.4100, L3890.6005, L800.1280, L3100.5450, L3100.6900, L506.1000, L3300.1200, L504.2610, L300.3900, L3000.0375, L803.2200, L3400.0700, L501.9985, L503.6550, L500.4050, L3100.1850, L3300.0700 ####[facility] [address] [facility] [address] [place], [place], [id number] Ferritinon 03-19-2024 Ferritin [Mass/Vol] 113 ng/mL Normal 8-252 [facility] Comment on above: Order Comment: N1 Performed By: #### L 501.6710, L100.0100, L503.6030, L3300.0100, L500.4100, L3890.6005, L800.1280, L3100.5450, L3100.6900, L506.1000, L3300.1200, L504.2610, L300.3900, L3000.0375, L803.2200, L3400.0700, L501.9985, L503.6550, L500.4050, L3100.1850, L3300.0700 ####[facility] [address] [place], [place], [phone] HIV - WCHon 03-19-2024 HIV Non-Reactive Normal Nonreactive [facility] Comment on above: Performed By: #### L 501.6710, L100.0100, L503.6030, L3300.0100, L500.4100, L3890.6005, L800.1280, L3100.5450, L3100.6900, L506.1000, L3300.1200, L504.2610, L300.3900, L3000.0375, L803.2200, L3400.0700, L501.9985, L503.6550, L500.4050, L3100.1850, L3300.0700 ####[facility] [address] [facility]. [place], [place], [phone] Hemoglobin A1con 03-19-2024 HbA1c (Bld) [Mass fraction] 5.1 % Normal 3.8-5.6 [facility] Comment on above: Result Comment: Norm al < 5.7 % Prediabetic 5.7 - 6.4 % Diabetic >or= 6.5 % Please note range changes. Performed By: #### L 501.6710, L100.0100, L503.6030, L3300.0100, L500.4100, L3890.6005, L800.1280, L3100.5450, L3100.6900, L506.1000, L3300.1200, L504.2610, L300.3900, L3000.0375, L803.2200, L3400.0700, L501.9985, L503.6550, L500.4050, L3100.1850, L3300.0700 ####[facility] [address] [place], [place], [id number] Iron+Iron Binding Capacityon 03-19-2024 Iron [Mass/Vol] 104 ug/dL Normal 50-170 [facility] Comment on above: Order Comment: N1 Performed By: #### L 501.6710, L100.0100, L503.6030, L3300.0100, L500.4100, L3890.6005, L800.1280, L3100.5450, L3100.6900, L506.1000, L3300.1200, L504.2610, L300.3900, L3000.0375, L803.2200, L3400.0700, L501.9985, L503.6550, L500.4050, L3100.1850, L3300.0700 ####[facility] [address] [place], [place], [id number] IRON SATURATION 30.3 Normal 15.0-55.0 [facility] Comment on above: Order Comment: N1 Performed By: #### L 501.6710, L100.0100, L503.6030, L3300.0100, L500.4100, L3890.6005, L800.1280, L3100.5450, L3100.6900, L506.1000, L3300.1200, L504.2610, L300.3900, L3000.0375, L803.2200, L3400.0700, L501.9985, L503.6550, L500.4050, L3100.1850, L3300.0700 ####[facility] [address] [place], [place], [id number] TIBC 343 ug/dL Normal 250-450 [facility] Comment on above: Order Comment: N1 Performed By: #### L 501.6710, L100.0100, L503.6030, L3300.0100, L500.4100, L3890.6005, L800.1280, L3100.5450, L3100.6900, L506.1000, L3300.1200, L504.2610, L300.3900, L3000.0375, L803.2200, L3400.0700, L501.9985, L503.6550, L500.4050, L3100.1850, L3300.0700 ####[facility] [address] [place], [place], [id number] LDHon 03-19-2024 LDH 195 U/L Normal 84-246 [facility] Comment on above: Order Comment: N1 Performed By: #### L 501.6710, L100.0100, L503.6030, L3300.0100, L500.4100, L3890.6005, L800.1280, L3100.5450, L3100.6900, L506.1000, L3300.1200, L504.2610, L300.3900, L3000.0375, L803.2200, L3400.0700, L501.9985, L503.6550, L500.4050, L3100.1850, L3300.0700 ####[facility] [address] [facility]. [place], [place], [address] Lipid Profileon 03-19-2024 Cholesterol [Mass/Vol] 150 mg/dL Normal 200 [facility] Comment on above: Order Comment: N1 Result Comment: <200 mg/dL Desirable 200-240 mg/dL Borderline >240 mg/dL High Risk Performed By: #### L 501.6710, L100.0100, L503.6030, L3300.0100, L500.4100, L3890.6005, L800.1280, L3100.5450, L3100.6900, L506.1000, L3300.1200, L504.2610, L300.3900, L3000.0375, L803.2200, L3400.0700, L501.9985, L503.6550, L500.4050, L3100.1850, L3300.0700 ####[facility] [address] [place], [place], [address] Cholesterol in HDL [Mass/Vol] 52 mg/dL Normal [facility] Comment on above: Order Comment: N1 Result Comment: The drugs N-Acetylcysteine and Metamizole may falselydepress this assay. Reference Range HDL <40 mg/dL Low HDL Cholesterol HDL >or= 60 mg/dL High HDL Cholesterol Performed By: #### L 501.6710, L100.0100, L503.6030, L3300.0100, L500.4100, L3890.6005, L800.1280, L3100.5450, L3100.6900, L506.1000, L3300.1200, L504.2610, L300.3900, L3000.0375, L803.2200, L3400.0700, L501.9985, L503.6550, L500.4050, L3100.1850, L3300.0700 ####[facility] [address] [place], [place], [phone]) Cholesterol in LDL [Mass/Vol] 72 mg/dL Normal 0-130 [facility] Comment on above: Order Comment: N1 Performed By: #### L 501.6710, L100.0100, L503.6030, L3300.0100, L500.4100, L3890.6005, L800.1280, L3100.5450, L3100.6900, L506.1000, L3300.1200, L504.2610, L300.3900, L3000.0375, L803.2200, L3400.0700, L501.9985, L503.6550, L500.4050, L3100.1850, L3300.0700 ####[facility] [address] [place], [place], [id number](598) Cholesterol in VLDL [Mass/Vol] 26 mg/dL Normal 5-40 [facility] Comment on above: Order Comment: N1 Performed By: #### L 501.6710, L100.0100, L503.6030, L3300.0100, L500.4100, L3890.6005, L800.1280, L3100.5450, L3100.6900, L506.1000, L3300.1200, L504.2610, L300.3900, L3000.0375, L803.2200, L3400.0700, L501.9985, L503.6550, L500.4050, L3100.1850, L3300.0700 ####[facility] [address] [place], [address](325) Triglyceride [Mass/Vol] 132 mg/dL Normal [facility] Comment on above: Order Comment: N1 Result Comment: The drugs N-Acetylcysteine and Metamizole may falselydepress this assay.Serum Triglycerides Reference Interval Normal <150 mg/dL Borderline high 150 - 199 mg/dL High 200 - 499 mg/dL Very High > or = 500 mg/dL Performed By: #### L 501.6710, L100.0100, L503.6030, L3300.0100, L500.4100, L3890.6005, L800.1280, L3100.5450, L3100.6900, L506.1000, L3300.1200, L504.2610, L300.3900, L3000.0375, L803.2200, L3400.0700, L501.9985, L503.6550, L500.4050, L3100.1850, L3300.0700 ####[facility] [address] [place], [address] Prothrombin Time w/INRon INR Coag (PPP) [Relative time] 1.1 {INR} Normal [facility] Comment on above: Performed By: #### L 501.6710, L100.0100, L503.6030, L3300.0100, L500.4100, L3890.6005, L800.1280, L3100.5450, L3100.6900, L506.1000, L3300.1200, L504.2610, L300.3900, L3000.0375, L803.2200, L3400.0700, L501.9985, L503.6550, L500.4050, L3100.1850, L3300.0700 ####[facility] [address] [place], [address] PT Coag (PPP) [Time] 14.6 s Normal 11.7-14.9 [facility] Comment on above: Performed By: #### L 501.6710, L100.0100, L503.6030, L3300.0100, L500.4100, L3890.6005, L800.1280, L3100.5450, L3100.6900, L506.1000, L3300.1200, L504.2610, L300.3900, L3000.0375, L803.2200, L3400.0700, L501.9985, L503.6550, L500.4050, L3100.1850, L3300.0700 ####[facility] [address] [facility]. [place], [place], [id number] Vitamin D,25 Hydroxyon 03-19 Vitamin D 25-OH 30.8 ng/mL Normal [facility] Comment on above: Result Comment: Emi min D 25(OH) Status Range Deficiency <20 ng/mL (50nmol/L) Insufficiency 20 - 30 ng/mL (50 - 75 nmol/L) Sufficiency 30 - 100 ng/mL (75 - 250 nmol/L) Toxicity >100 ng/mL (>250 nmol/L) Performed By: #### L 501.6710, L100.0100, L503.6030, L3300.0100, L500.4100, L3890.6005, L800.1280, L3100.5450, L3100.6900, L506.1000, L3300.1200, L504.2610, L300.3900, L3000.0375, L803.2200, L3400.0700, L501.9985, L503.6550, L500.4050, L3100.1850, L3300.0700 ####[facility] [address] [facility]. [place], [place], [id number] Laboratory - Microbiology an d Antimicrobial susceptibilityOrdered By: Carlos Chris on 01-09-2024 SARS-CoV-2 (COVID-19) RNA GUERITA+probe Ql (Unsp spec) [facility] Absolute lymphocyte countOrd ered By: Carlos Chris on 11-21-2023 Lymphocytes Auto (Unsp spec) [#/Vol] 2.61 10*3/uL 0.83-4.51 [facility] Automated lymphocyte count a s percentage of total leukocytesOrdered By: Carlos Chris on 11-21-2023 Lymphocytes/100 WBC Auto (Unsp spec) 39.2 % 19-41 [facility] Basophil percentageOrdered B y: Carlos Chris on 11-21-2023 Basophils/100 WBC (Bld) 1.1 % 0-1 [facility] Bilirubin [Mass/Vol] 0.90 mg/dL 0.20-1.00 [facility] Comment on above: For patients on eltr ombopag therapy, use of Dimension [place] TBIL is not recommended. Chloride [Moles/Vol] 107 mmol/L 98-107 [facility] Cholesterol [Mass/Vol] 147 mg/dL <200 [facility] Comment on above: <200 mg/dL Desirable 200-240 mg/dL Borderline >240 mg/dL High Risk Eosinophils/100 WBC (Bld) 2.0 % 0-5 [facility] Glucose [Mass/Vol] 86 mg/dL 74-106 [facility] Hemoglobin (Bld) [Mass/Vol] 11.9 g/dL 12.0-15.0 [facility] Monocytes/100 WBC (Bld) 7.1 % 0-10 [facility] Neutrophils (Bld) [#/Vol] 3.4 10*3/uL 2.0-7.7 [facility] Neutrophils/100 WBC (Bld) 50.3 % 47-70 [facility] Potassium [Moles/Vol] 4.1 mmol/L 3.5-5.1 [facility] Protein [Mass/Vol] 7.9 g/dL 6.4-8.2 [facility] Sodium [Moles/Vol] 141 mmol/L 136-145 [facility] Triglyceride [Mass/Vol] 71 mg/dL <199 [facility] Comment on above: The drugs N-Acetylcy steine and Metamizole may falsely depress this assay.Serum Triglycerides Reference Interval Normal <150 mg/dL Borderline high 150 - 199 mg/dL High 200 - 499 mg/dL Very High > or = 500 mg/dL WBC (Bld) [#/Vol] 6.7 10*3/uL 4.4-11.0 [facility] Determination of erythrocyte mean corpuscular volume (MCV)Ordered By: Carlos Chris on 11-21-2023 MCV (RBC) [Entitic vol] 99.7 fL 81-99 [facility] Erythrocyte distribution wid th ratioOrdered By: [facility] 11-21-2023 Erythrocyte distribution width (RBC) [Ratio] 14.8 % 11.6-14.6 [facility] Erythrocyte distribution wid th standard deviationOrdered By: [facility] on 11-21-2023 Erythrocyte distribution width (RBC) [Entitic vol] 54.9 fL 35.1-43.9 [facility] Hematocrit Auto (Bld) [Volum e fraction]Ordered By: [facility] on 11-21-2023 Hematocrit (Bld) [Volume fraction] 37.7 % 37-47 [facility] Immature granulocytes/100 WB C Auto (Bld)Ordered By: [facility] 11-21-2023 Immature granulocytes/100 WBC (Bld) 0.300 % 0.0-0.9 [facility] Comment on above: IG% - Immature Granu locytes (promyelocytes, myelocytes and metamyelocytes) > 1% indicates that a LEFT SHIFT is Present. Iron measurement (mass/mass) Ordered By: [facility] on 11-21-2023 Iron (Unsp spec) [Mass/Mass] 116 ug/dL 50-170 [facility] Laboratory - Chemistry and C hemistry - challengeOrdered By: [facility] 11-21-2023 Albumin/Globulin [Mass ratio] 0.8 {ratio} 0.9-2.4 [facility] ALP [Catalytic activity/Vol] 75 U/L 45-117 [facility] ALT [Catalytic activity/Vol] 72 U/L 13-56 [facility] Cholesterol in HDL [Mass/Vol] 56 mg/dL >40 [facility] Comment on above: The drugs N-Acetylcy steine and Metamizole may falsely depress this assay. Reference Range HDL <40 mg/dL Low HDL Cholesterol HDL >or= 60 mg/dL High HDL Cholesterol Cholesterol in LDL [Mass/Vol] 77 mg/dL 0-130 [facility] CO2 [Moles/Vol] 30.0 mmol/L 21.0-32.0 [facility] Cobalamin (Vitamin B12) [Mass/Vol] 523 pg/mL 211-911 [facility] Ferritin [Mass/Vol] 115 ng/mL 8-252 [facility] Globulin (S) [Mass/Vol] 4.4 g/dL 2.2-4.2 [facility] Urea nitrogen/Creatinine [Mass ratio] 14.6 mg/mg 10-20 [facility] Laboratory - Hematology and Cell countsOrdered By: Carlos Chris on 11-21-2023 MCH (RBC) [Entitic mass] 31.5 pg 27.0-32.0 [facility] MCHC (RBC) [Mass/Vol] 31.6 g/dL 32-36 [facility] Nucleated RBC/100 WBC (Bld) [Ratio] 0 % 0-5 [facility] Platelet mean volume (Bld) [Entitic vol] 11.6 fL 6.2-12.0 [facility] Platelets (Bld) [#/Vol] 224 10*3/uL 150-450 [facility] No Panel InformationOrdered By: Carlos Chris on 11-21-2023 Estimated GFR (MDRD) Amer 74 mL/min >60 [facility] Comment on above: GFR Calc Estimated GFR (MDRD) Non-Af Amer 61 mL/min >60 [facility] Comment on above: Non- GFR Calc Folate 17.70 ng/mL 3.1-55.4 [facility] Parathyroid Hormone (Intact) 69.0 pg/mL 18.4-80.1 [facility] Total Iron Binding Capacity 287 ug/dL 250-450 [facility] Vitamin D 25-Hydroxy 29.8 ng/mL [facility] Comment on above: Vitamin D 25(OH) Sta tus Range Deficiency <20 ng/mL (50nmol/L) Insufficiency 20 - 30 ng/mL (50 - 75 nmol/L) Sufficiency 30 - 100 ng/mL (75 - 250 nmol/L) Toxicity >100 ng/mL (>250 nmol/L) VLDL Cholesterol 14 mg/dL 5-40 [facility] RBC Auto (Bld) [#/Vol]Ordere d By: Carlos Chris on 11-21-2023 RBC (Bld) [#/Vol] 3.78 10*6/uL 4.2-5.4 [facility] Serum or plasma calcium tara urement (mass/volume)Ordered By: Carlos Chris on 02-12-2024 Calcium [Mass/Vol] 8.4 mg/dL 8.5-10.1 [facility] Serum or plasma creatinine m easurement (mass/volume)Ordered By: Carlos Chris on 11-21-2023 Creatinine [Mass/Vol] 1.03 mg/dL 0.55-1.02 [facility] Comment on above: The validity of the calculated GFR & GFRAA in patients over 70 years has not been determined. Clinical correlation is essential. Serum or plasma iron saturat ion measurement (mass fraction)Ordered By: Carlos Chris on 11-21-2023 Iron saturation [Mass fraction] 40.4 % 15.0-55.0 [facility] Serum or plasma thiamine caio surement (mass/volume)Ordered By: Carlos Chris 11-21-2023 Thiamine [Mass/Vol] 107.6 nmol/L 66.5-200.0 [facility] Serum or plasma thyroid stim ulating hormone (TSH) measurement (units/volume)Ordered By: Carlos Chris 11-21-2023 TSH Qn 32.90 uIU/mL 0.358-3.74 [facility] Serum or plasma urea nitroge n measurement (mass/volume)Ordered By: Carlos Chris 11-21-2023 Urea nitrogen [Mass/Vol] 15 mg/dL 7-18 [facility] Serum or plasma zinc measure ment (mass/volume)Ordered By: Carlos Chris 11-21-2023 Zinc [Mass/Vol] 65 ug/dL 44-115 [facility] Comment on above: Detection Limit = 5P erformed at: [facility] [id number] Director: Brent Mcgowan MD, Phone: [phone] Thin prep Papanicolaou smear with manual screeningOrdered By: Carlos Chris on 11-21-2023 Thin prep Papanicolaou smear with manual screening 3.5 g/dL 3.2-5.0 [facility] Thin prep Papanicolaou smear with manual screening 61 U/L 15-37 [facility] Thin prep Papanicolaou smear with manual screening 4 5-15 [facility] Thin prep Papanicolaou smear with manual screening 105 ug/dL 80-158 [facility] Comment on above: Detection Limit = 5 Whole blood hemoglobin A1c/t otal hemoglobin ratio (mass fraction)Ordered By: Carlos Dumontok on 11-21-2023 HbA1c (Bld) [Mass fraction] 5.4 % 3.8-5.6 [facility] Comment on above: Normal < 5.7 % Predi abetic 5.7 - 6.4 % Diabetic >or= 6.5 % Please note range changes. Laboratory - Microbiology an d Antimicrobial susceptibilityOrdered By: Carlos Chris on 10-26-2023 SARS-CoV-2 (COVID-19) RNA GUERITA+probe Ql (Unsp spec) SARS-CoV-2 (COVID 19 PCR) [facility] SARS-CoV-2 (COVID-19) RNA GUERITA+probe Ql (Unsp spec) SARS-CoV-2 (COVID 19 PCR) [facility] Absolute lymphocyte countOrd ered By: Carlos Dumontok on 10-25-2023 Lymphocytes Auto (Unsp spec) [#/Vol] 2.29 10*3/uL 0.83-4.51 [facility] Automated lymphocyte count a s percentage of total leukocytesOrdered By: Carlos Chris on 10-25-2023 Lymphocytes/100 WBC Auto (Unsp spec) 23.6 % 19-41 [facility] Basophil percentageOrdered B y: Carlos Aries on 10-25-2023 Basophils/100 WBC (Bld) 0.9 % 0-1 [facility] Chloride [Moles/Vol] 105 mmol/L 98-107 [facility] Eosinophils/100 WBC (Bld) 0.7 % 0-5 [facility] Glucose [Mass/Vol] 105 mg/dL 74-106 [facility] Comment on above: Fasting Glucose resu lt from 100 to 125 mg/dL suggests IMPAIRED HOMEOSTASIS per A.D.A. criteria. Hemoglobin (Bld) [Mass/Vol] 13.1 g/dL 12.0-15.0 [facility] Monocytes/100 WBC (Bld) 6.0 % 0-10 [facility] Neutrophils (Bld) [#/Vol] 6.6 10*3/uL 2.0-7.7 [facility] Neutrophils/100 WBC (Bld) 68.5 % 47-70 [facility] Potassium [Moles/Vol] 4.3 mmol/L 3.5-5.1 [facility] Sodium [Moles/Vol] 137 mmol/L 136-145 [facility] WBC (Bld) [#/Vol] 9.7 10*3/uL 4.4-11.0 [facility] Determination of erythrocyte mean corpuscular volume (MCV)Ordered By: Carlos Chris on 10-25-2023 MCV (RBC) [Entitic vol] 99.1 fL 81-99 [facility] Erythrocyte distribution wid th ratioOrdered By: [facility] on 10-25-2023 Erythrocyte distribution width (RBC) [Ratio] 14.6 % 11.6-14.6 [facility] Erythrocyte distribution wid th standard deviationOrdered By: [facility] on 10-25-2023 Erythrocyte distribution width (RBC) [Entitic vol] 53.1 fL 35.1-43.9 [facility] Erythrocyte sedimentation ra teOrdered By: [facility] 10-25-2023 ESR (Bld) [Velocity] 21 mm/h 0-30 [facility] Hematocrit Auto (Bld) [Volum e fraction]Ordered By: Carlos Aries on 10-25-2023 Hematocrit (Bld) [Volume fraction] 43.5 % 37-47 [facility] Immature granulocytes/100 WB C Auto (Bld)Ordered By: [facility] 10-25-2023 Immature granulocytes/100 WBC (Bld) 0.300 % 0.0-0.9 [facility] Comment on above: IG% - Immature Granu locytes (promyelocytes, myelocytes and metamyelocytes) > 1% indicates that a LEFT SHIFT is Present. Laboratory - Chemistry and C hemistry - challengeOrdered By: Carlos Chris 10-25-2023 CO2 [Moles/Vol] 27.0 mmol/L 21.0-32.0 [facility] Urea nitrogen/Creatinine [Mass ratio] 12.6 mg/mg 10-20 [facility] Laboratory - Hematology and Cell countsOrdered By: [facility] 10-25-2023 MCH (RBC) [Entitic mass] 29.8 pg 27.0-32.0 [facility] MCHC (RBC) [Mass/Vol] 30.1 g/dL 32-36 [facility] Nucleated RBC/100 WBC (Bld) [Ratio] 0 % 0-5 [facility] Platelets (Bld) [#/Vol] 244 10*3/uL 150-450 [facility] No Panel InformationOrdered By: Carlos Chris on 10-25-2023 C-Reactive Protein Extended Range < 2.90 mg/L 0.0-3.0 [facility] Comment on above: C-Reactive Protein ( CRP) provides useful information for thediagnosis, therapy and monitoring of inflammatory processesand associated diseases. For the evaluation of Relative Riskfor Cardiovascular Disease, a High Sensitivity CRP (HSCRP)should be ordered. Estimated GFR (MDRD) Amer 63 mL/min >60 [facility] Comment on above: GFR Calc Estimated GFR (MDRD) Non-Af Amer 52 mL/min >60 [facility] Comment on above: Non- GFR Calc Platelet mean volume Esa-Ec ker (Bld) [Entitic vol]Ordered By: Carlos Chris on 10-25-2023 Platelet mean volume (Bld) [Entitic vol] 10.9 fL 6.2-12.0 [facility] RBC Auto (Bld) [#/Vol]Ordere d By: Carlos Chris on 10-25-2023 RBC (Bld) [#/Vol] 4.39 10*6/uL 4.2-5.4 [facility] Serum or plasma calcium tara urement (mass/volume)Ordered By: Carlos Chris on 10-25-2023 Calcium [Mass/Vol] 8.6 mg/dL 8.5-10.1 [facility] Serum or plasma creatinine m easurement (mass/volume)Ordered By: Carlos Chris on 10-25-2023 Creatinine [Mass/Vol] 1.19 mg/dL 0.55-1.02 [facility] Comment on above: The validity of the calculated GFR & GFRAA in patients over 70 years has not been determined. Clinical correlation is essential. Serum or plasma urea nitroge n measurement (mass/volume)Ordered By: Carlos Chris on 10-25-2023 Urea nitrogen [Mass/Vol] 15 mg/dL 7-18 [facility] Thin prep Papanicolaou smear with manual screeningOrdered By: Carlos Chris 10-25-2023 Thin prep Papanicolaou smear with manual screening 5 5-15 [facility] No Panel Informationon 10-06 Influenza Types A,B Rapid (Clinic) Negative [facility] POC SARS CoV-2 Antigen Positive [facility] Laboratory - Microbiology an d Antimicrobial susceptibilityOrdered By: Carlos Chris on 08-22-2023 SARS-CoV-2 (COVID-19) RNA GUERITA+probe Ql (Unsp spec) [facility] No Panel InformationOrdered By: Carlos Chris on 08-22-2023 Influenza Types A,B Direct FA (VICKIE) [facility] RSV Ag EIAOrdered By: Carlos jennings on 08-22-2023 RSV Ag Immune stain Ql (Tiss) [facility] Laboratory - Chemistry and C hemistry - challengeOrdered By: Sylvia Broussard on 07-21-2023 Free T4 [Mass/Vol] 0.52 ng/dL 0.76-1.46 [facility] No Panel InformationOrdered By: Sylvia Broussard on 07-21-2023 Thyroid Stimulating Hormone (TSH) 50.10 uIU/mL 0.358-3.74 [facility] Absolute lymphocyte countOrd ered By: Ramirez Stanley on 07-16-2023 Lymphocytes Auto (Unsp spec) [#/Vol] 1.91 10*3/uL 0.83-4.51 [facility] Basophil percentageOrdered B y: Ramirez Stanley on 07-16-2023 Basophil percentage 0-5 SEEN /hpf 0-5 [facility] Basophils/100 WBC (Bld) 0.9 % 0-1 [facility] Chloride [Moles/Vol] 108 mmol/L 98-107 [facility] Eosinophils/100 WBC (Bld) 3.1 % 0-5 [facility] Glucose [Mass/Vol] 93 mg/dL 74-106 [facility] Neutrophils (Bld) [#/Vol] 3.4 10*3/uL 2.0-7.7 [facility] Neutrophils/100 WBC (Bld) 58.3 % 47-70 [facility] Potassium [Moles/Vol] 4.4 mmol/L 3.5-5.1 [facility] Sodium [Moles/Vol] 141 mmol/L 136-145 [facility] WBC (Bld) [#/Vol] 5.8 10*3/uL 4.4-11.0 [facility] Bilirubin Test strip Ql (U)O rdered By: Ramirez Stanley on 07-16-2023 Bilirubin Ql (U) Negative Negative [facility] Blood erythrocytes count (nu mber/volume)Ordered By: Ramirez Stanley on 07-16-2023 RBC (Bld) [#/Vol] 4.27 10*6/uL 4.2-5.4 [facility] Blood hemoglobin measurement (mass/volume)Ordered By: Ramirez Stanley on 07-16-2023 Hemoglobin (Bld) [Mass/Vol] 12.7 g/dL 12.0-15.0 [facility] Blood lymphocytes/100 leukoc ytesOrdered By: Ramirez Stanley on 07-16-2023 Lymphocytes/100 WBC (Bld) 32.9 % 19-41 [facility] Blood monocytes/100 leukocyt esOrdered By: Ramirez Stanley on 07-16-2023 Monocytes/100 WBC (Bld) 4.6 % 0-10 [facility] Blood platelet mean volumeOr dered By: Ramirez Stanley on 07-16-2023 Platelet mean volume (Bld) [Entitic vol] 10.9 fL 6.2-12.0 [facility] Determination of erythrocyte mean corpuscular volume (MCV)Ordered By: Ramirez Stanley on 07-16-2023 MCV (RBC) [Entitic vol] 94.6 fL 81-99 [facility] Hematocrit Auto (Bld) [Volum e fraction]Ordered By: Ramirez Stanley on 07-16-2023 Hematocrit (Bld) [Volume fraction] 40.4 % 37-47 [facility] Ketones Test strip Ql (U)Ord ered By: Ramirez Stanley on 07-16-2023 Ketones Ql (U) Negative Negative [facility] Laboratory - Chemistry and C hemistry - challengeOrdered By: Ramirez Stanley on 07-16-2023 CO2 [Moles/Vol] 30.0 mmol/L 21.0-32.0 [facility] Urea nitrogen/Creatinine [Mass ratio] 12.2 mg/mg 10-20 [facility] Laboratory - Hematology and Cell countsOrdered By: Ramirez Stanley on 07-16-2023 Erythrocyte distribution width (RBC) [Entitic vol] 45.9 fL 35.1-43.9 [facility] Erythrocyte distribution width (RBC) [Ratio] 13.2 % 11.6-14.6 [facility] Immature granulocytes/100 WBC (Bld) 0.200 % 0.0-0.9 [facility] Comment on above: IG% - Immature Granu locytes (promyelocytes, myelocytes and metamyelocytes) > 1% indicates that a LEFT SHIFT is Present. MCH (RBC) [Entitic mass] 29.7 pg 27.0-32.0 [facility] Nucleated RBC/100 WBC (Bld) [Ratio] 0 % 0-5 [facility] MCHC Auto (RBC) [Mass/Vol]Or dered By: Ramirez Stanley on 07-16-2023 MCHC (RBC) [Mass/Vol] 31.4 g/dL 32-36 [facility] Mucus LM Ql (Urine sed)Order ed By: Ramirez Stanley on 07-16-2023 Mucus Ql (Urine sed) 0 SEEN /hpf [facility] Nitrite Test strip Ql (U)Ord ered By: Ramirez Stanley on 07-16-2023 Nitrite Ql (U) Negative Negative [facility] No Panel InformationOrdered By: Ramirez Stanley on 07-16-2023 Estimated Creatinine Clearance Calc 54.70 ml/min [facility] Estimated GFR (MDRD) Amer 79 mL/min >60 [facility] Comment on above: GFR Calc Estimated GFR (MDRD) Non-Af Amer 65 mL/min >60 [facility] Comment on above: Non- GFR Calc Platelets bldOrdered By: Yvette Stanley on 07-16-2023 Platelets (Bld) [#/Vol] 266 10*3/uL 150-450 [facility] Protein Test strip Ql (U)Ord ered By: Ramirez Stanley on 07-16-2023 Protein Ql (U) 15 mg/dl Negative [facility] Serum or plasma calcium tara urement (mass/volume)Ordered By: Ramirez Stanley on 07-16-2023 Calcium [Mass/Vol] 8.7 mg/dL 8.5-10.1 [facility] Serum or plasma creatinine m easurement (mass/volume)Ordered By: Ramirez Stanley on 07-16-2023 Creatinine [Mass/Vol] 0.98 mg/dL 0.55-1.02 [facility] Comment on above: The validity of the calculated GFR & GFRAA in patients over 70 years has not been determined. Clinical correlation is essential. Serum or plasma urea nitroge n measurement (mass/volume)Ordered By: Ramirez Stanley on 07-16-2023 Urea nitrogen [Mass/Vol] 12 mg/dL 7-18 [facility] Squamous epithelial cells de tection in urine sediment by light microscopyOrdered By: Ramirez Stanley on 07-16-2023 Epithelial cells.squamous LM Ql (Urine sed) 10-25 SEEN /hpf 5-10 [facility] Thin prep Papanicolaou smear with manual screeningOrdered By: Ramirez Stanley on 07-16-2023 Thin prep Papanicolaou smear with manual screening 3 5-15 [facility] Urine blood detectionOrdered By: Ramirez Stanley on 07-16-2023 RBC Ql (U) 50 /ul Negative [facility] RBC Ql (U) 5-10 SEEN /hpf 0-5 [facility] Urine clarityOrdered By: Yvette Stanley on 07-16-2023 Clarity (U) Sl. Cloudy Clear [facility] Urine color determinationOrd ered By: Ramirez Stanley on 07-16-2023 Color (U) Yellow Yellow [facility] Urine glucose detectionOrder ed By: Ramirez Stalney on 07-16-2023 Glucose Ql (U) Normal mg/dl Normal [facility] Urine leukocyte esterase det ection by dipstickOrdered By: Ramirez Stanley on 07-16-2023 Leukocyte esterase Test strip Ql (U) Negative Negative [facility] Urine pHOrdered By: Ramirez shepard on 07-16-2023 pH (U) 6.0 [pH] 5.0 - 8.0 [facility] Urine sediment bacteria coun t by microscopy (number/high power field)Ordered By: Ramirez Stanley on 07-16-2023 Bacteria LM.HPF (Urine sed) [#/Area] 1 /[HPF] None Seen [facility] Urine specific gravity measu rementOrdered By: Ramirez Stanley on 07-16-2023 Specific gravity (U) [Rel density] 1.020 1.002-1.030 [facility] Urobilinogen Auto test strip Ql (U)Ordered By: Ramirez Stanley on 07-16-2023 Urobilinogen Ql (U) 1 mg/dl Normal [facility] Bacteria identified Cx Nom ( Wound)Ordered By: Carlos Chris on 05-20-2023 Wound Culture Enterobacter cloacae complex [facility] Wound Culture Pseudomonas aeruginosa [facility] Wound Culture Enterococcus faecalis [facility] Wound Culture Positive [facility] Wound Culture Enterobacter cloacae complex [facility] Wound Culture Pseudomonas aeruginosa [facility] Wound Culture Enterococcus faecalis [facility] Wound Culture Positive [facility] Gram stain for investigation of transfusion reactionOrdered By: Carlos Chris on 05-20-2023 Microscopic observation Gram stain Nom (Unsp spec) [facility] Microscopic observation Gram stain Nom (Unsp spec) [facility] No Panel InformationOrdered By: Carlos Chris on 05-20-2023 Methicillin-Resist S.aureus DNA PCR Negative Negative [facility] Staphylococcus aureus DNA de tection by probe and target amplification methodOrdered By: Carlos Chris on 05-20-2023 S. aureus DNA GUERITA+probe Ql (Unsp spec) Negative Negative [facility] Absolute lymphocyte countOrd ered By: Carlos Chris on 05-19-2023 Lymphocytes Auto (Unsp spec) [#/Vol] 2.80 10*3/uL 0.83-4.51 [facility] Basophil percentageOrdered B y: Carlos Chris on 05-19-2023 Basophils/100 WBC (Bld) 1.0 % 0-1 [facility] Bilirubin [Mass/Vol] 0.90 mg/dL 0.20-1.00 [facility] Comment on above: For patients on eltr ombopag therapy, use of Dimension [place] TBIL is not recommended. Chloride [Moles/Vol] 108 mmol/L 98-107 [facility] Cholesterol [Mass/Vol] 141 mg/dL <200 [facility] Comment on above: <200 mg/dL Desirable 200-240 mg/dL Borderline >240 mg/dL High Risk Eosinophils/100 WBC (Bld) 1.9 % 0-5 [facility] Glucose [Mass/Vol] 98 mg/dL 74-106 [facility] Neutrophils (Bld) [#/Vol] 3.8 10*3/uL 2.0-7.7 [facility] Neutrophils/100 WBC (Bld) 52.6 % 47-70 [facility] Potassium [Moles/Vol] 3.3 mmol/L 3.5-5.1 [facility] Protein [Mass/Vol] 6.9 g/dL 6.4-8.2 [facility] Sodium [Moles/Vol] 140 mmol/L 136-145 [facility] Triglyceride [Mass/Vol] 105 mg/dL <199 [facility] Comment on above: The drugs N-Acetylcy steine and Metamizole may falsely depress this assay.Serum Triglycerides Reference Interval Normal <150 mg/dL Borderline high 150 - 199 mg/dL High 200 - 499 mg/dL Very High > or = 500 mg/dL WBC (Bld) [#/Vol] 7.3 10*3/uL 4.4-11.0 [facility] Blood erythrocytes count (nu mber/volume)Ordered By: Carlos Chris on 05-19-2023 RBC (Bld) [#/Vol] 3.81 10*6/uL 4.2-5.4 [facility] Blood hemoglobin measurement (mass/volume)Ordered By: Carlos Chris on 05-19-2023 Hemoglobin (Bld) [Mass/Vol] 11.5 g/dL 12.0-15.0 [facility] Blood lymphocytes/100 leukoc ytesOrdered By: Carlos Chris on 05-19-2023 Lymphocytes/100 WBC (Bld) 38.5 % 19-41 [facility] Blood monocytes/100 leukocyt esOrdered By: Carlos Chris on 05-19-2023 Monocytes/100 WBC (Bld) 5.9 % 0-10 [facility] Blood platelet mean volumeOr dered By: Carlos Chris on 05-19-2023 Platelet mean volume (Bld) [Entitic vol] 10.5 fL 6.2-12.0 [facility] Determination of erythrocyte mean corpuscular volume (MCV)Ordered By: Carlos Chris on 05-19-2023 MCV (RBC) [Entitic vol] 95.8 fL 81-99 [facility] Hematocrit Auto (Bld) [Volum e fraction]Ordered By: Carlos Chris on 05-19-2023 Hematocrit (Bld) [Volume fraction] 36.5 % 37-47 [facility] Iron measurement (mass/mass) Ordered By: Carlos Chris on 05-19-2023 Iron (Unsp spec) [Mass/Mass] 63 ug/dL 50-170 [facility] Laboratory - Chemistry and C hemistry - challengeOrdered By: Carlos Chris on 05-19-2023 ALP [Catalytic activity/Vol] 77 U/L 45-117 [facility] ALT [Catalytic activity/Vol] 21 U/L 13-56 [facility] CO2 [Moles/Vol] 28.0 mmol/L 21.0-32.0 [facility] Cobalamin (Vitamin B12) [Mass/Vol] 794 pg/mL 211-911 [facility] Globulin (S) [Mass/Vol] 3.7 g/dL 2.2-4.2 [facility] Urea nitrogen/Creatinine [Mass ratio] 12.6 mg/mg 10-20 [facility] Laboratory - Hematology and Cell countsOrdered By: Carlos Chris on 05-19-2023 Erythrocyte distribution width (RBC) [Entitic vol] 47.9 fL 35.1-43.9 [facility] Erythrocyte distribution width (RBC) [Ratio] 13.6 % 11.6-14.6 [facility] Immature granulocytes/100 WBC (Bld) 0.100 % 0.0-0.9 [facility] Comment on above: IG% - Immature Granu locytes (promyelocytes, myelocytes and metamyelocytes) > 1% indicates that a LEFT SHIFT is Present. MCH (RBC) [Entitic mass] 30.2 pg 27.0-32.0 [facility] Nucleated RBC/100 WBC (Bld) [Ratio] 0 % 0-5 [facility] MCHC Auto (RBC) [Mass/Vol]Or dered By: Carlos Chris on 05-19-2023 MCHC (RBC) [Mass/Vol] 31.5 g/dL 32-36 [facility] No Panel InformationOrdered By: Carlos Chris on 05-19-2023 Estimated GFR (MDRD) Amer 90 mL/min >60 [facility] Comment on above: GFR Calc Estimated GFR (MDRD) Non-Af Amer 75 mL/min >60 [facility] Comment on above: Non- GFR Calc Parathyroid Hormone (Intact) 41.6 pg/mL 18.4-80.1 [facility] Thyroid Stimulating Hormone (TSH) 8.84 uIU/mL 0.358-3.74 [facility] Vitamin D 25-Hydroxy 50.2 ng/mL [facility] Comment on above: Vitamin D 25(OH) Sta tus Range Deficiency <20 ng/mL (50nmol/L) Insufficiency 20 - 30 ng/mL (50 - 75 nmol/L) Sufficiency 30 - 100 ng/mL (75 - 250 nmol/L) Toxicity >100 ng/mL (>250 nmol/L) Whole Blood Vitamin B1 Level 105.5 nmol/L 66.5-200.0 [facility] Platelets bldOrdered By: Carlos Chris on 05-19-2023 Platelets (Bld) [#/Vol] 431 10*3/uL 150-450 [facility] Serum or plasma albumin tara urement (mass/volume)Ordered By: Carlos Chris on 05-19-2023 Albumin [Mass/Vol] 3.2 g/dL 3.2-5.0 [facility] Serum or plasma albumin/glob ulin mass ratioOrdered By: Carlos Chris 05-19-2023 Albumin/Globulin [Mass ratio] 0.9 {ratio} 0.9-2.4 [facility] Serum or plasma calcium tara urement (mass/volume)Ordered By: Carlos Chris on 05-19-2023 Calcium [Mass/Vol] 8.4 mg/dL 8.5-10.1 [facility] Serum or plasma cholesterol in HDL measurement (mass/volume)Ordered By: Carlos Chris on 05-19-2023 Cholesterol in HDL [Mass/Vol] 38 mg/dL >40 [facility] Comment on above: The drugs N-Acetylcy steine and Metamizole may falsely depress this assay. Reference Range HDL <40 mg/dL Low HDL Cholesterol HDL >or= 60 mg/dL High HDL Cholesterol Serum or plasma cholesterol in VLDL measurement (mass/volume)Ordered By: Carlos Chris on 05-19-2023 Cholesterol in VLDL [Mass/Vol] 21 mg/dL 5-40 [facility] Serum or plasma creatinine m easurement (mass/volume)Ordered By: Carlos Chris 05-19-2023 Creatinine [Mass/Vol] 0.87 mg/dL 0.55-1.02 [facility] Comment on above: The validity of the calculated GFR & GFRAA in patients over 70 years has not been determined. Clinical correlation is essential. Serum or plasma ferritin caio surement (mass/volume)Ordered By: Carlos Chris on 05-19-2023 Ferritin [Mass/Vol] 259 ng/mL 8-252 [facility] Serum or plasma folate measu rement (mass/volume)Ordered By: Carlos Chris 05-19-2023 Folate [Mass/Vol] 37.60 ng/mL 3.1-55.4 [facility] Serum or plasma low density lipoprotein (LDL) cholesterol measurement (mass/volume)Ordered By: Carlos Chris 05-19-2023 Cholesterol in LDL [Mass/Vol] 82 mg/dL 0-130 [facility] Serum or plasma urea nitroge n measurement (mass/volume)Ordered By: Carlos Chris 05-19-2023 Urea nitrogen [Mass/Vol] 11 mg/dL 7-18 [facility] Serum or plasma zinc measure ment (mass/volume)Ordered By: Carlos Chris 05-19-2023 Zinc [Mass/Vol] 82 ug/dL 44-115 [facility] Comment on above: Detection Limit = 5P erformed at: - [facility] [id number] Director: Brent Mcgowan MD, Phone: [phone] Thin prep Papanicolaou smear with manual screeningOrdered By: Carlos Chris 05-19-2023 Thin prep Papanicolaou smear with manual screening 21 U/L 15-37 [facility] Thin prep Papanicolaou smear with manual screening 4 5-15 [facility] Thin prep Papanicolaou smear with manual screening 117 ug/dL 80-158 [facility] Comment on above: Detection Limit = 5 Whole blood hemoglobin A1c/t otal hemoglobin ratio (mass fraction)Ordered By: Carlos Chris on 05-19-2023 HbA1c (Bld) [Mass fraction] 4.9 % 3.8-5.6 [facility] Comment on above: Normal < 5.7 % Predi abetic 5.7 - 6.4 % Diabetic >or= 6.5 % Please note range changes. ANES POSTPROC EVALon 023 ANES POSTPROC EVAL HNO ID: [id number] Author: Tori Aleman MD Service: Anesthesiology Author Type: Anesthesiologist Type: Anesthesia Postprocedure Evaluation Filed: 05/06/2023 4:20 PM Note Text: POST ANESTHESIA EVALUATION NOTE : 1975 Procedure Summary Date: 05/06/23 Room / Location: OR OR / OR OR Anesthesia Start: 9 Anesthesia Stop: 1513 Procedure: LAPAROSCOPY WITH OOPHORECTOMY AND SALPINGECTOMY (Bilateral) [...] May 06, 2023 TIME: 4:20 PM CSN: [id number] [facility] ANES PRE-OPon 05-06-2023 ANES PRE-OP HNO ID: [id number] Author: Tori Aleman MD Service: Anesthesiology Author Type: Anesthesiologist Type: Anesthesia Preprocedure Evaluation Filed: 05/06/2023 11:47 AM Note Text: ANESTHESIOLOGY DAY OF SURGERY NOTE : 1975 Procedure Information Date/Time: 05/06/23 1248 Procedure: LAPAROSCOPY WITH OOPHORECTOMY AND SALPINGECTOMY (Bilateral) Location: OR OR04 / OR OR Surgeons: Sylvia Ayala DO Estimated body mass index is 27.76 kg/m? as calculated from the following: Height as of 05/03/23: 151.8 cm (4' 11.76). Weight as of 05/03/23: 64 kg (141 [...] a current smoker. NPO Status: adequate Beta Lorleei Monitoring Plan Monitoring plan: Standard ASA. Post Procedure Analgesic Plan Postoperative analgesic plan: parenteral or oral opioids and multimodal analgesia. Informed Consent Anesthetic risks, benefits, alternatives, personnel and consent discussed: yes. Patient / Responsible Alliance Party agrees to proceed: yes Patient / [...] 05/06/23 1135 SpO2 100 % 05/06/23 1135 Facility-Administered Medications as of 05/06/2023 Medication Dose Route [...] Take by mouth. - cyanocobalamin/folic acid (VITAMIN N69-BFRQF ACID) 1,000-400 mcg lozg Dissolve under the [...] May 06, 2023 TIME: 11:46 AM CSN: [id number] [facility] OPERATIVE NOon 05-06-2023 OPERATIVE NO HNO ID: [id number] Author: Sylvia Ayala DO Service: Gynecology Author Type: Physician Type: Operative Report Filed: 05/09/2023 7:34 AM Note Text: PHARMACEUTICAL SCIENTIST OPERATIVE/PROCEDURE REPORT LOG ID: [id number] Surgery/Procedure Date: 05/06/2023 Incision/Procedure Start Time: 12:48 PM Incision Close/Procedure End Time: 3:02 PM Surgeon(s)/Procedurali st(s) and Cupola Liner(s): Surgeon(s) and Role: * Sylvia Ayala, - Primary * Nia Heard DO - Resident - Assisting Physician Cupola Liner: Reena Cochran PA-C Informed Consent: Informed Consent obtained and on the chart Procedure: Laparoscopic bilateral salpingo-oophorectomy, lysis of adhesions Pre-Op/Pre-Procedure Diagnosis: Ovarian cyst and Pelvic pain Post-Op/Post-Procedure Diagnosis: Same as pre-op diagnosis Antibiotic: None [...] right IP ligame (more content not included)... [facility] SURGICAL PATHOLOGYon [address] [facility] Comment on above: Order Comment: Speci men Type: TISSUE SPECIMEN Ordering Facility: [facility] Address: [address] [place] [phone] Result Comment: Surg ica Pathology Report Case: [id number] Authorizing Provider: ySlvia Ayala DO Collected: 05/06/2023 02:16 PM Ordering Location: [facility] Surgery Received: 05/06/2023 03:49 PM Pathologist: Dexter Alexander MD Specimen: FALLOPIAN TUBE AND OVARY BILATERAL Performed By: #### S #### [facility] CLIA [id number] [address] [place] [address] CLINICAL HISTORY Normal [facility] Comment on above: Order Comment: Speci men Type: TISSUE SPECIMEN Ordering Facility: [facility] Address: [address] [place] [address] Result Comment: Pre- op diagnosis: Pelvic pain in female [R10.2] Performed By: #### S #### [facility] CLIA [id number] [address] [place] [address] FINAL DIAGNOSIS Normal [facility] Comment on above: Order Comment: Speci men Type: TISSUE SPECIMEN Ordering Facility: [facility] Address: [address] [place] [address] Result Comment: A. O varies and fallopian tubes, bilateral salpingo-oophorectomy: ---Benign ovaries with endosalpingiosis, follicular cysts, and dense serosal adhesions. ---Benign fallopian tubes with paratubal cysts. Performed By: #### S #### [facility] CLIA [id number] [address] [place] [address] FINAL [address]ING LAB Normal [facility] Comment on above: Order Comment: Speci men Type: TISSUE SPECIMEN Ordering Facility: [facility] Address: [address] [place] [address] Result Comment: Diag nostic interpretation performed at [facility], [address] [place], [place] [id number] CLIA# [id number] Community Pharmacist: Idris Goode M.D. Performed By: #### S #### [facility] CLIA [id number] [address] [facility] [address] [place] [address] [place] GROSS DESCRIPTION Normal [facility] Comment on above: Order Comment: Speci men Type: TISSUE SPECIMEN Ordering Facility: [facility] Address: [address] [place] [address] Result Comment: A. F ALLOPIAN TUBE AND [...] cm in diameter. The serosal surface is durand-pink, roughened. The fimbriated end has a normal villous appearance. No paratubal cysts are grossly identified. The lumen is unremarkable. Route Supervisor sections are submitted as follows: A1 ovary [...] central luminal cross-sections [place] [address] CLIA# [id number] MSL/MLG 05/09/23 1:19 PM Performed By: #### S #### [facility] CLIA [id number] [address] [place] [address] [place] CBC W Auto Differential pane l (Bld)on 05-03-2023 Basophils (Bld) [#/Vol] 0.06 10*3/uL Normal <0.11 [facility] Comment on above: Order Comment: Speci men Type: BLOOD SPECIMEN Ordering Facility: [facility] Address: [address] [place] [address] Performed By: #### 5 7021-8 #### [facility] CLIA [id number] [address] [place] [address] [place] Basophils/100 WBC (Bld) 0.9 % Normal [facility] Comment on above: Order Comment: Speci men Type: BLOOD SPECIMEN Ordering Facility: [facility] Address: [address] [place] [address] Performed By: #### 5 7021-8 #### [facility] CLIA [id number] [address] Differential cell count method Nom (Bld) Auto Normal [facility] Comment on above: Order Comment: Speci men Type: BLOOD SPECIMEN Ordering Facility: [facility] Address: [address] [place] [address] Performed By: #### 5 7021-8 #### [facility] CLIA [id number] [address] [place] [address] [place] Eosinophils (Bld) [#/Vol] 0.19 10*3/uL Normal <0.46 [facility] Comment on above: Order Comment: Speci men Type: BLOOD SPECIMEN Ordering Facility: [facility] Address: [address] [place] [address] Performed By: #### 5 7021-8 #### [facility] CLIA [id number] [address] Eosinophils/100 WBC (Bld) 2.7 % Normal [facility] Comment on above: Order Comment: Speci men Type: BLOOD SPECIMEN Ordering Facility: [facility] Address: [address] [place] [address] Performed By: #### 5 7021-8 #### [facility] CLIA [id number] [address] Erythrocyte distribution width (RBC) [Ratio] 13.7 % Normal 11.5-15.0 [facility] Comment on above: Order Comment: Speci men Type: BLOOD SPECIMEN Ordering Facility: [facility] Address: [address] [place] [address] Performed By: #### 5 7021-8 #### [facility] CLIA [id number] [address] [place] Hematocrit (Bld) [Volume fraction] 37.9 % Normal 36.0-46.0 [facility] Comment on above: Order Comment: Speci men Type: BLOOD SPECIMEN Ordering Facility: [facility] Address: [address] [place] [address] Performed By: #### 5 7021-8 #### [facility] CLIA [id number] [address] [place] Hemoglobin (Bld) [Mass/Vol] 12.2 g/dL Normal 11.5-15.5 [facility] Comment on above: Order Comment: Speci men Type: BLOOD SPECIMEN Ordering Facility: [facility] Address: [address] [place] [address] Performed By: #### 5 7021-8 #### [facility] CLIA [id number] [address] [place] [address] [place] Immature granulocytes (Bld) [#/Vol] 10*3/uL Normal <0.10 [facility] Comment on above: Order Comment: Speci men Type: BLOOD SPECIMEN Ordering Facility: [facility] Address: [address] [place] [address] Performed By: #### 5 7021-8 #### [facility] CLIA [id number] [address] Immature granulocytes/100 WBC (Bld) 0.1 % Normal [facility] Comment on above: Order Comment: Speci men Type: BLOOD SPECIMEN Ordering Facility: [facility] Address: [address] [place] [address] Performed By: #### 5 7021-8 #### [facility] CLIA [id number] [address] [place] Lymphocytes (Bld) [#/Vol] 2.58 10*3/uL Normal 1.00-4.00 [facility] Comment on above: Order Comment: Speci men Type: BLOOD SPECIMEN Ordering Facility: [facility] Address: [address] [place] [address] Performed By: #### 5 7021-8 #### [facility] CLIA [id number] [address] Lymphocytes/100 WBC (Bld) 36.6 % Normal [facility] Comment on above: Order Comment: Speci men Type: BLOOD SPECIMEN Ordering Facility: [facility] Address: [address] [place] [address] Performed By: #### 5 7021-8 #### [facility] CLIA [id number] [address] MCH (RBC) [Entitic mass] 30.1 pg Normal 26.0-34.0 [facility] Comment on above: Order Comment: Speci men Type: BLOOD SPECIMEN Ordering Facility: [facility] Address: [address] [place] [address] Performed By: #### 5 7021-8 #### [facility] CLIA [id number] [address] MCHC (RBC) [Mass/Vol] 32.2 g/dL Normal 30.5-36.0 [facility] Comment on above: Order Comment: Speci men Type: BLOOD SPECIMEN Ordering Facility: [facility] Address: [address] [place] [address] Performed By: #### 5 7021-8 #### [facility] CLIA [id number] [address] MCV (RBC) [Entitic vol] 93.6 fL Normal 80.0-100.0 [facility] Comment on above: Order Comment: Speci men Type: BLOOD SPECIMEN Ordering Facility: [facility] Address: [address] [place] [address] Performed By: #### 5 7021-8 #### [facility] CLIA [id number] [address] Monocytes (Bld) [#/Vol] 0.48 10*3/uL Normal <0.87 [facility] Comment on above: Order Comment: Speci men Type: BLOOD SPECIMEN Ordering Facility: [facility] Address: [address] [place] [address] Performed By: #### 5 7021-8 #### [facility] CLIA [id number] [address] Monocytes/100 WBC (Bld) 6.8 % Normal [facility] Comment on above: Order Comment: Speci men Type: BLOOD SPECIMEN Ordering Facility: [facility] Address: [address] [place] [address] Performed By: #### 5 7021-8 #### [facility] CLIA [id number] [address] [place] [address] [place] Neutrophils (Bld) [#/Vol] 3.73 10*3/uL Normal 1.45-7.50 [facility] Comment on above: Order Comment: Speci men Type: BLOOD SPECIMEN Ordering Facility: [facility] Address: [address] [place] [address] Performed By: #### 5 7021-8 #### [facility] CLIA [id number] [address] [place] Neutrophils/100 WBC (Bld) 52.9 % Normal [facility] Comment on above: Order Comment: Speci men Type: BLOOD SPECIMEN Ordering Facility: [facility] Address: [address] [place] [address] Performed By: #### 5 7021-8 #### [facility] CLIA [id number] [address] [place] Nucleated RBC (Bld) [#/Vol] 10*3/uL Normal <0.01 [facility] Comment on above: Order Comment: Speci men Type: BLOOD SPECIMEN Ordering Facility: [facility] Address: [address] [place] [address] Performed By: #### 5 7021-8 #### [facility] CLIA [id number] [address] Nucleated RBC/100 WBC (Bld) [Ratio] 0.0 /100 WBC Normal [facility] Comment on above: Order Comment: Speci men Type: BLOOD SPECIMEN Ordering Facility: [facility] Address: [address] [place] [address] Performed By: #### 5 7021-8 #### [facility] CLIA [id number] [address] [place] Platelet mean volume (Bld) [Entitic vol] 11.6 fL Normal 9.0-12.7 [facility] Comment on above: Order Comment: Speci men Type: BLOOD SPECIMEN Ordering Facility: [facility] Address: [address] [place] [address] Performed By: #### 5 7021-8 #### [facility] CLIA [id number] [address] Platelets (Bld) [#/Vol] 278 10*3/uL Normal 150-400 [facility] Comment on above: Order Comment: Speci men Type: BLOOD SPECIMEN Ordering Facility: [facility] Address: [address] [place] [address] Performed By: #### 5 7021-8 #### [facility] CLIA [id number] [address] RBC (Bld) [#/Vol] 4.05 10*6/uL Normal 3.90-5.20 [facility] Comment on above: Order Comment: Speci men Type: BLOOD SPECIMEN Ordering Facility: [facility] Address: [address] [place] [address] Performed By: #### 5 7021-8 #### [facility] CLIA [id number] [address] WBC (Bld) [#/Vol] 7.05 10*3/uL Normal 3.70-11.00 [facility] Comment on above: Order Comment: Speci men Type: BLOOD SPECIMEN Ordering Facility: [facility] Address: [address] [place] [address] Performed By: #### 5 7021-8 #### [facility] CLIA [id number] [address] Comprehensive metabolic 2000 panelon 05-03-2023 Albumin [Mass/Vol] 3.9 g/dL Normal 3.9-4.9 [facility] Comment on above: Order Comment: Speci men Type: BLOOD SPECIMEN Ordering Facility: [facility] Address: [address] [place] [address] Performed By: #### 2 4323-8 #### [facility] CLIA [id number] [address] ALP [Catalytic activity/Vol] 88 U/L Normal 34-123 [facility] Comment on above: Order Comment: Speci men Type: BLOOD SPECIMEN Ordering Facility: [facility] Address: [address] [place] [address] Performed By: #### 2 4323-8 #### [facility] CLIA [id number] [address] [place] ALT [Catalytic activity/Vol] 22 U/L Normal 7-38 [facility] Comment on above: Order Comment: Speci men Type: BLOOD SPECIMEN Ordering Facility: [facility] Address: [address] [place] [address] Performed By: #### 2 4323-8 #### [facility] CLIA [id number] [address] [place] Anion gap [Moles/Vol] 10 mmol/L Normal 9-18 [facility] Comment on above: Order Comment: Speci men Type: BLOOD SPECIMEN Ordering Facility: [facility] Address: [address] [place] [address] Performed By: #### 2 4323-8 #### [facility] CLIA [id number] [address] [place] [address] [place] AST [Catalytic activity/Vol] 29 U/L Normal 13-35 [facility] Comment on above: Order Comment: Speci men Type: BLOOD SPECIMEN Ordering Facility: [facility] Address: [address] [place] [address] Performed By: #### 2 4323-8 #### [facility] CLIA [id number] [address] [place] Bilirubin [Mass/Vol] 0.7 mg/dL Normal 0.2-1.3 [facility] Comment on above: Order Comment: Speci men Type: BLOOD SPECIMEN Ordering Facility: [facility] Address: [address] [place] [address] Performed By: #### 2 4323-8 #### [facility] CLIA [id number] [address] [place] Calcium [Mass/Vol] 8.8 mg/dL Normal 8.5-10.2 [facility] Comment on above: Order Comment: Speci men Type: BLOOD SPECIMEN Ordering Facility: [facility] Address: [address] [place] [address] Performed By: #### 2 4323-8 #### [facility] CLIA [id number] [address] Chloride [Moles/Vol] 107 mmol/L High 97-105 [facility] Comment on above: Order Comment: Speci men Type: BLOOD SPECIMEN Ordering Facility: [facility] Address: [address] [place] [address] Performed By: #### 2 4323-8 #### [facility] CLIA [id number] [address] CO2 [Moles/Vol] 27 mmol/L Normal 22-30 [facility] Comment on above: Order Comment: Speci men Type: BLOOD SPECIMEN Ordering Facility: [facility] Address: [address] [place] [address] Performed By: #### 2 4323-8 #### [facility] CLIA [id number] [address] Creatinine [Mass/Vol] 0.78 mg/dL Normal 0.58-0.96 [facility] Comment on above: Order Comment: Traceyi men Type: BLOOD SPECIMEN Ordering Facility: [facility] Address: [address] [place] [address] Performed By: #### 2 4323-8 #### [facility] CLIA [id number] [address] ESTIMATED GLOMERULAR FILTRATION RATE 96 mL/min/1.73m??? Normal >=60 [facility] Comment on above: Order Comment: Speci men Type: BLOOD SPECIMEN Ordering Facility: [facility] Address: [address] [place] [address] Result Comment: Pricilla mated Glomerular Filtration Rate [...] GFR. Performed By: #### 2 4323-8 #### [facility] CLIA [id number] [address] [place] [address] [place] Glucose [Mass/Vol] 87 mg/dL Normal 74-99 [facility] Comment on above: Order Comment: Usha daugherty Type: BLOOD SPECIMEN Ordering Facility: [facility] Address: [address] [place] [address] Result Comment: The [place] [employer] (ADA) provides guidance for cutoff [...] Standards of Medical Care in Diabetes 2016, [place] [employer]. Diabetes Care. 2016.39(Suppl 1). Performed By: #### 2 4323-8 #### [facility] CLIA [id number] [address] [place] Potassium [Moles/Vol] 3.8 mmol/L Normal 3.7-5.1 [facility] Comment on above: Order Comment: Usha daugherty Type: BLOOD SPECIMEN Ordering Facility: [facility] Address: [address] [place] [address] Performed By: #### 2 4323-8 #### [facility] CLIA [id number] [address] [place] [address] [place] Protein [Mass/Vol] 6.8 g/dL Normal 6.3-8.0 [facility] Comment on above: Order Comment: Usha daugherty Type: BLOOD SPECIMEN Ordering Facility: [facility] Address: [address] [place] [address] Performed By: #### 2 4323-8 #### [facility] CLIA [id number] [address] Sodium [Moles/Vol] 144 mmol/L Normal 136-144 [facility] Comment on above: Order Comment: Speci men Type: BLOOD SPECIMEN Ordering Facility: [facility] Address: [address] [place] [address] Performed By: #### 2 4323-8 #### [facility] CLIA [id number] [address] Urea nitrogen [Mass/Vol] 10 mg/dL Normal 7-21 [facility] Comment on above: Order Comment: Speci men Type: BLOOD SPECIMEN Ordering Facility: [facility] Address: [address] [place] [address] Performed By: #### 2 4323-8 #### [facility] CLIA [id number] [address] HISTORY PHYSICALon HISTORY PHYSICAL HNO ID: [id number] Author: Genevieve Thompson APRN.[employer] Service: ? Author Type: Nurse Practitioner Type: [...] COVID-19 original vaccine, age 12+ yr, monovalent ([employer] - PURPLE TOP) Only the first 3 [...] fevers. Neurological: No history of TIA's, stroke, GAS ATTENDANT tumor, impaired sensorium, hemiplegia, paraplegia or quadraplegia. [...] nocturia >1 time per night and urgency. PHARMACEUTICAL SCIENTIST: See HPI. Endocrine: Positive for: hypothyroidism. Negative [...] Diagnosis Date Asthma 03/2016 + [facility]ICK[facility] at [facility]. Depressive disorder, not elsewhere classified Encounter for [...] BYPASS HX 09/20/2022 Reun Y IUD INSERTION (PHARMACEUTICAL SCIENTIST DEPT)_*[place] 07/17/2007 Mirena IUD REMOVAL (PHARMACEUTICAL SCIENTIST DEPT)_*[place] 10/23/2007 Mirena L'SCOPE DX W/WO BRUSHINGS/WASHINGS [...] Use Smoking stat (more content not included)... Normal [facility] Basophil percentageOrdered B y: Dr. Mi on 03-11-2023 WBC (Bld) [#/Vol] 8.5 10*3/uL 4.4-11.0 [facility] Blood erythrocytes count (nu mber/volume)Ordered By: Dr. Mi on 03-11-2023 RBC (Bld) [#/Vol] 4.19 10*6/uL 4.2-5.4 [facility] Blood hemoglobin measurement (mass/volume)Ordered By: Dr. Mi on 03-11-2023 Hemoglobin (Bld) [Mass/Vol] 12.6 g/dL 12.0-15.0 [facility] Blood platelet mean volumeOr dered By: Dr. Mi on 03-11-2023 Platelet mean volume (Bld) [Entitic vol] 11.5 fL 6.2-12.0 [facility] Determination of erythrocyte mean corpuscular volume (MCV)Ordered By: Dr. Mi on 03-11-2023 MCV (RBC) [Entitic vol] 93.3 fL 81-99 [facility] Hematocrit Auto (Bld) [Volum e fraction]Ordered By: Dr. Mi on 03-11-2023 Hematocrit (Bld) [Volume fraction] 39.1 % 37-47 [facility] - Hematology and Cell countsOrdered By: Dr. Mi on 03-11-2023 Erythrocyte distribution width (RBC) [Entitic vol] 44.0 fL 35.1-43.9 [facility] Erythrocyte distribution width (RBC) [Ratio] 12.9 % 11.6-14.6 [facility] MCH (RBC) [Entitic mass] 30.1 pg 27.0-32.0 [facility] MCHC Auto (RBC) [Mass/Vol]Or dered By: Dr. iM on 03-11-2023 MCHC (RBC) [Mass/Vol] 32.2 g/dL 32-36 [facility] Platelets bldOrdered By: Dr. Mi on 03-11-2023 Platelets (Bld) [#/Vol] 311 10*3/uL 150-450 [facility] Basophil percentageOrdered B y: Dr. Hernandez on 03-09-2023 Basophil percentage 3.4 mg/dL 2.5-4.9 [facility] Chloride [Moles/Vol] 107 mmol/L 98-107 [facility] Glucose [Mass/Vol] 70 mg/dL 74-106 [facility] Potassium [Moles/Vol] 3.4 mmol/L 3.5-5.1 [facility] Comment on above: Slight Hemolysis, Re sult may be falsely increased. Sodium [Moles/Vol] 139 mmol/L 136-145 [facility] Beta hCG serum qualOrdered B y: Dr. Hernandez on 03-09-2023 Beta HCG ( test) Ql Negative [facility] - Chemistry and C hemistry - challengeOrdered By: Dr. Hernandez on 03-09-2023 CO2 [Moles/Vol] 27.0 mmol/L 21.0-32.0 [facility] Urea nitrogen/Creatinine [Mass ratio] 12.8 mg/mg 10-20 [facility] No Panel InformationOrdered By: Dr. Hernandez on 03-09-2023 Estimated GFR (MDRD) Amer 103 mL/min >60 [facility] Comment on above: GFR Calc Estimated GFR (MDRD) Non-Af Amer 85 mL/min >60 [facility] Comment on above: Non- GFR Calc Serum or plasma albumin tara urement (mass/volume)Ordered By: Dr. Hernandez on 03-09-2023 Albumin [Mass/Vol] 3.6 g/dL 3.2-5.0 [facility] [facility] Serum or plasma calcium tara urement (mass/volume)Ordered By: Dr. Hernandez on 03-09-2023 Calcium [Mass/Vol] 8.5 mg/dL 8.5-10.1 [facility] Serum or plasma creatinine m easurement (mass/volume)Ordered By: Dr. Hernandez on 03-09-2023 Creatinine [Mass/Vol] 0.78 mg/dL 0.55-1.02 [facility] Comment on above: The validity of the calculated GFR & GFRAA in patients over 70 years has not been determined. Clinical correlation is essential. Serum or plasma urea nitroge n measurement (mass/volume)Ordered By: Dr. Hernandez on 03-09-2023 Urea nitrogen [Mass/Vol] 10 mg/dL 7-18 [facility] Serum or plasma uric acid me asurement (mass/volume)Ordered By: Dr. Hernandez on 03-09-2023 Urate [Mass/Vol] 6.5 mg/dL 2.6-6.0 [facility] Comment on above: The drugs N-Acetylcy steine and Metamizole may falsely depress this assay. Laboratory - Chemistry and C hemistry - challengeOrdered By: Sylvia Broussard on 02-25-2023 Free T4 [Mass/Vol] 1.32 ng/dL 0.76-1.46 [facility] No Panel InformationOrdered By: Sylvia Broussard on 02-25-2023 Thyroid Stimulating Hormone (TSH) 15.80 uIU/mL 0.358-3.74 [facility] Absolute lymphocyte countOrd ered By: Dr. Chris on 02-02-2023 Lymphocytes Auto (Unsp spec) [#/Vol] 2.56 10*3/uL 0.83-4.51 [facility] Basophil percentageOrdered B y: Dr. Chris on 02-02-2023 Basophils/100 WBC (Bld) 0.8 % 0-1 [facility] Bilirubin [Mass/Vol] 1.00 mg/dL 0.20-1.00 [facility] Comment on above: For patients on eltr ombopag therapy, use of Dim[place] TBIL is not recommended. Chloride [Moles/Vol] 108 mmol/L 98-107 [facility] Eosinophils/100 WBC (Bld) 0.8 % 0-5 [facility] Glucose [Mass/Vol] 86 mg/dL 74-106 [facility] Neutrophils (Bld) [#/Vol] 3.2 10*3/uL 2.0-7.7 [facility] Neutrophils/100 WBC (Bld) 50.7 % 47-70 [facility] Potassium [Moles/Vol] 4.0 mmol/L 3.5-5.1 [facility] Protein [Mass/Vol] 7.0 g/dL 6.4-8.2 [facility] Sodium [Moles/Vol] 137 mmol/L 136-145 [facility] WBC (Bld) [#/Vol] 6.3 10*3/uL 4.4-11.0 [facility] Beta hCG serum qualOrdered B y: Dr. Chris on 02-02-2023 Beta HCG ( test) Ql Negative [facility] Blood erythrocytes count (nu mber/volume)Ordered By: Dr. Chris on 02-02-2023 RBC (Bld) [#/Vol] 4.00 10*6/uL 4.2-5.4 [facility] Blood hemoglobin measurement (mass/volume)Ordered By: Dr. Chris on 02-02-2023 Hemoglobin (Bld) [Mass/Vol] 12.3 g/dL 12.0-15.0 [facility] Blood lymphocytes/100 leukoc ytesOrdered By: Dr. Chris on 02-02-2023 Lymphocytes/100 WBC (Bld) 40.4 % 19-41 [facility] Blood monocytes/100 leukocyt esOrdered By: Dr. Chris on 02-02-2023 Monocytes/100 WBC (Bld) 7.1 % 0-10 [facility] Blood platelet mean volumeOr dered By: Dr. Chris on 02-02-2023 Platelet mean volume (Bld) [Entitic vol] 12.2 fL 6.2-12.0 [facility] Determination of erythrocyte mean corpuscular volume (MCV)Ordered By: Dr. Chris on 02-02-2023 MCV (RBC) [Entitic vol] 95.5 fL 81-99 [facility] Hematocrit Auto (Bld) [Volum e fraction]Ordered By: Dr. Chris on 02-02-2023 Hematocrit (Bld) [Volume fraction] 38.2 % 37-47 [facility] Laboratory - Chemistry and C hemistry - challengeOrdered By: Dr. Chris on 02-02-2023 ALP [Catalytic activity/Vol] 84 U/L 45-117 [facility] ALT [Catalytic activity/Vol] 34 U/L 13-56 [facility] CO2 [Moles/Vol] 26.0 mmol/L 21.0-32.0 [facility] Globulin (S) [Mass/Vol] 3.7 g/dL 2.2-4.2 [facility] Urea nitrogen/Creatinine [Mass ratio] 11.7 mg/mg 10-20 [facility] Laboratory - Chemistry and C hemistry - challengeOrdered By: Sylvia Broussard on 02-02-2023 Free T4 [Mass/Vol] 1.95 ng/dL 0.76-1.46 [facility] Laboratory - Hematology and Cell countsOrdered By: Dr. Chris on 02-02-2023 Erythrocyte distribution width (RBC) [Entitic vol] 46.0 fL 35.1-43.9 [facility] Erythrocyte distribution width (RBC) [Ratio] 13.0 % 11.6-14.6 [facility] Immature granulocytes/100 WBC (Bld) 0.200 % 0.0-0.9 [facility] Comment on above: IG% - Immature Granu locytes (promyelocytes, myelocytes and metamyelocytes) > 1% indicates that a LEFT SHIFT is Present. MCH (RBC) [Entitic mass] 30.8 pg 27.0-32.0 [facility] Nucleated RBC/100 WBC (Bld) [Ratio] 0 % 0-5 [facility] MCHC Auto (RBC) [Mass/Vol]Or dered By: Dr. Chris on 02-02-2023 MCHC (RBC) [Mass/Vol] 32.2 g/dL 32-36 [facility] No Panel InformationOrdered By: Dr. Chris on 02-02-2023 Estimated GFR (MDRD) Amer 104 mL/min >60 [facility] Comment on above: GFR Calc Estimated GFR (MDRD) Non-Af Amer 86 mL/min >60 [facility] Comment on above: Non- GFR Calc No Panel InformationOrdered By: Sylvia Broussard on 02-02-2023 Thyroid Stimulating Hormone (TSH) 0.83 uIU/mL 0.358-3.74 [facility] Platelets bldOrdered By: Dr. Chris on 02-02-2023 Platelets (Bld) [#/Vol] 220 10*3/uL 150-450 [facility] Serum or plasma albumin tara urement (mass/volume)Ordered By: Dr. Chris on 02-02-2023 Albumin [Mass/Vol] 3.3 g/dL 3.2-5.0 [facility] Serum or plasma albumin/glob ulin mass ratioOrdered By: Dr. Chris on 02-02-2023 Albumin/Globulin [Mass ratio] 0.9 {ratio} 0.9-2.4 [facility] Serum or plasma calcium tara urement (mass/volume)Ordered By: Dr. Chris on 02-02-2023 Calcium [Mass/Vol] 9.1 mg/dL 8.5-10.1 [facility] Serum or plasma creatinine m easurement (mass/volume)Ordered By: Dr. Chris on 02-02-2023 Creatinine [Mass/Vol] 0.77 mg/dL 0.55-1.02 [facility] Comment on above: The validity of the calculated GFR & GFRAA in patients over 70 years has not been determined. Clinical correlation is essential. Serum or plasma urea nitroge n measurement (mass/volume)Ordered By: Dr. Chris on 02-02-2023 Urea nitrogen [Mass/Vol] 9 mg/dL 7-18 [facility] Thin prep Papanicolaou smear with manual screeningOrdered By: Dr. Chris on 02-02-2023 Thin prep Papanicolaou smear with manual screening 37 U/L 15-37 [facility] Thin prep Papanicolaou smear with manual screening 3 5-15 [facility] 36on 01-12-2023 36 Called pt to get her scheduled as a AUDIO ENGINEER, pt is frazzled and was told by her PCP to not come to PHARMACEUTICAL SCIENTIST [facility]C and to see her regular PHARMACEUTICAL SCIENTIST, Pt has an appt with her regular PHARMACEUTICAL SCIENTIST tomorrow morning and will call back to let us know what she suggests pt to do. Normal [facility] 36on 01-10-2023 36 Will need to get records. Current US/Scan? Normal [facility] COVID-19 virus antigen assay Ordered By: Dr. Chris on 01-10-2023 SARS-CoV-2 (COVID-19) Ag IA.rapid Ql (Resp) Not detected Not Detect [facility] Comment on above: Normal Reference Ran ge: Not DetectedMethod:(RT-PCR) real-time reverse transcriptase PCRLuminex [employer] Instrument*The Food and Drug Administration (FDA) has issued an Emergency Use Authorization (EAU) for the [employer] SARS-CoV-2 Assay for the rapid detection of the virus that causes COVID-19. This test has been validated, but the FDAs independent review of this validation is pending.*Negative results do not preclude infection and should not be used as the sole basis for treatment or patient management. Optimum specimen types and timing for peak viral levels during infections caused by SARS-CoV-2 have not been determined. Collection of multiple specimens from the same patient may be necessary to detect the virus. The possibility of a false negative result should be considered if the patient has clinical presentation or has had recent exposure. No Panel InformationOrdered By: Carlos Chris on 01-10-2023 Influenza Types A,B Direct FA (VICKIE) [facility] No Panel InformationOrdered By: Dr. Chris on 01-10-2023 Influenza Types A,B Direct FA (VICKIE) [facility] RSV Ag EIAOrdered By: Carlos jennings on 01-10-2023 RSV Ag Immune stain Ql (Tiss) [facility] RSV Ag EIAOrdered By: Dr. Julia jennings on 01-10-2023 RSV Ag Immune stain Ql (Tiss) [facility] 36on 01-07-2023 36 Name of caller: Romain Contact phone number: [phone] Relationship to Patient: patient Provider: Practice: Drs. Renteria and Douglas Chief Complaint/Reason for Call: Patient requesting AUDIO ENGINEER appointment for cysts on her ovaries. Patient states PCP referred her to this office. Please call to schedule. Best time of day caller can be reached: any Patient advised that office/PCP has 24-48 business hours to return their call: no ' Normal [facility] Basophil percentageOrdered B y: Dr. Chris on 01-04-2023 Chloride [Moles/Vol] 109 mmol/L 98-107 [facility] Glucose [Mass/Vol] 84 mg/dL 74-106 [facility] Potassium [Moles/Vol] 3.4 mmol/L 3.5-5.1 [facility] Sodium [Moles/Vol] 140 mmol/L 136-145 [facility] Laboratory - Chemistry and C hemistry - challengeOrdered By: Dr. Chris on 01-04-2023 CO2 [Moles/Vol] 24.0 mmol/L 21.0-32.0 [facility] Urea nitrogen/Creatinine [Mass ratio] 12.3 mg/mg 10-20 [facility] No Panel InformationOrdered By: Dr. Chris on 01-04-2023 CA 125 Antigen 18.9 U/mL 0.0-38.1 [facility] Comment on above: [employer] El ectrochemiluminescence Immunoassay(ECLIA)Values obtained with different assay methods or kits cannotbe used interchangeably. Results cannot be interpreted asabsolute evidence of the presence or absence of malignantdisease.Performed at: [facility] [id number] Director: Marvin Lara PhD, Phone: [phone] Estimated GFR (MDRD) Amer 98 mL/min >60 [facility] Comment on above: GFR Calc Estimated GFR (MDRD) Non-Af Amer 81 mL/min >60 [facility] Comment on above: Non- GFR Calc Serum or plasma calcium tara urement (mass/volume)Ordered By: Dr. Chris on 01-04-2023 Calcium [Mass/Vol] 8.8 mg/dL 8.5-10.1 [facility] Serum or plasma creatinine m easurement (mass/volume)Ordered By: Dr. Chris on 01-04-2023 Creatinine [Mass/Vol] 0.81 mg/dL 0.55-1.02 [facility] Comment on above: The validity of the calculated GFR & GFRAA in patients over 70 years has not been determined. Clinical correlation is essential. Serum or plasma urea nitroge n measurement (mass/volume)Ordered By: Dr. Chris on 01-04-2023 Urea nitrogen [Mass/Vol] 10 mg/dL 7-18 [facility] Thin prep Papanicolaou smear with manual screeningOrdered By: Dr. Chris on 01-04-2023 Thin prep Papanicolaou smear with manual screening 7 5-15 [facility] Culture, urineOrdered By: Dr Leticia Nolasco on 01-03-2023 Bacteria identified Cx Nom (U) Klebsiella pneumoniae sp pneum [facility] Absolute lymphocyte countOrd ered By: Dr. Nolasco on 12-31-2022 Lymphocytes Auto (Unsp spec) [#/Vol] 3.47 10*3/uL 0.83-4.51 [facility] Basophil percentageOrdered B y: Dr. Nolasco on 12-31-2022 Basophil percentage 10-25 SEEN /hpf 0-5 [facility] Basophils/100 WBC (Bld) 1.0 % 0-1 [facility] Bilirubin [Mass/Vol] 1.00 mg/dL 0.20-1.00 [facility] Comment on above: For patients on eltr ombopag therapy, use of [place] TBIL is not recommended. Chloride [Moles/Vol] 106 mmol/L 98-107 [facility] Eosinophils/100 WBC (Bld) 2.3 % 0-5 [facility] Glucose [Mass/Vol] 88 mg/dL 74-106 [facility] Neutrophils (Bld) [#/Vol] 4.4 10*3/uL 2.0-7.7 [facility] Neutrophils/100 WBC (Bld) 50.2 % 47-70 [facility] Potassium [Moles/Vol] 3.3 mmol/L 3.5-5.1 [facility] Protein [Mass/Vol] 7.5 g/dL 6.4-8.2 [facility] Sodium [Moles/Vol] 140 mmol/L 136-145 [facility] WBC (Bld) [#/Vol] 8.8 10*3/uL 4.4-11.0 [facility] Bilirubin Test strip Ql (U)O rdered By: Dr. Nolasco on 12-31-2022 Bilirubin Ql (U) 1 mg/dL Negative [facility] Comment on above: COLOR OF URINE MAY A FFECT DIPSTICK RESULTS. Blood erythrocytes count (nu mber/volume)Ordered By: Dr. Nolasco on 12-31-2022 RBC (Bld) [#/Vol] 4.42 10*6/uL 4.2-5.4 [facility] Blood hemoglobin measurement (mass/volume)Ordered By: Dr. Nolasco on 12-31-2022 Hemoglobin (Bld) [Mass/Vol] 13.3 g/dL 12.0-15.0 [facility] Blood lymphocytes/100 leukoc ytesOrdered By: Dr. Nolasco on 12-31-2022 Lymphocytes/100 WBC (Bld) 39.5 % 19-41 [facility] Blood monocytes/100 leukocyt esOrdered By: Dr. Nolasco on 12-31-2022 Monocytes/100 WBC (Bld) 6.8 % 0-10 [facility] Blood platelet mean volumeOr dered By: Dr. Nolasco on 12-31-2022 Platelet mean volume (Bld) [Entitic vol] 11.5 fL 6.2-12.0 [facility] Culture, urineOrdered By: Mike Nolasco on 12-31-2022 Bacteria identified Cx Nom (U) Klebsiella pneumoniae sp pneum [facility] Determination of erythrocyte mean corpuscular volume (MCV)Ordered By: Dr. Nolasco on 12-31-2022 MCV (RBC) [Entitic vol] 93.9 fL 81-99 [facility] Hematocrit Auto (Bld) [Volum e fraction]Ordered By: Dr. Nolasco on 12-31-2022 Hematocrit (Bld) [Volume fraction] 41.5 % 37-47 [facility] Ketones Test strip Ql (U)Ord ered By: Dr. Nolasco on 12-31-2022 Ketones Ql (U) 50 mg/dl Negative [facility] Laboratory - Chemistry and C hemistry - challengeOrdered By: Dr. Nolasco on 12-31-2022 ALP [Catalytic activity/Vol] 69 U/L 45-117 [facility] ALT [Catalytic activity/Vol] 35 U/L 13-56 [facility] CO2 [Moles/Vol] 29.0 mmol/L 21.0-32.0 [facility] Globulin (S) [Mass/Vol] 3.9 g/dL 2.2-4.2 [facility] Lipase [Catalytic activity/Vol] 178 U/L 73-393 [facility] Urea nitrogen/Creatinine [Mass ratio] 15.0 mg/mg 10-20 [facility] Laboratory - Hematology and Cell countsOrdered By: Dr. Nolasco on 12-31-2022 Erythrocyte distribution width (RBC) [Entitic vol] 47.8 fL 35.1-43.9 [facility] Erythrocyte distribution width (RBC) [Ratio] 13.8 % 11.6-14.6 [facility] Immature granulocytes/100 WBC (Bld) 0.200 % 0.0-0.9 [facility] Comment on above: IG% - Immature Granu locytes (promyelocytes, myelocytes and metamyelocytes) > 1% indicates that a LEFT SHIFT is Present. MCH (RBC) [Entitic mass] 30.1 pg 27.0-32.0 [facility] Nucleated RBC/100 WBC (Bld) [Ratio] 0 % 0-5 [facility] MCHC Auto (RBC) [Mass/Vol]Or dered By: Dr. Nolasco on 12-31-2022 MCHC (RBC) [Mass/Vol] 32.0 g/dL 32-36 [facility] Mucus LM Ql (Urine sed)Order ed By: Dr. Nolasco on 12-31-2022 Mucus Ql (Urine sed) 0 SEEN /hpf [facility] Nitrite Test strip Ql (U)Ord ered By: Dr. Nolasco on 12-31-2022 Nitrite Ql (U) Negative Negative [facility] No Panel InformationOrdered By: Dr. Nolasco on 12-31-2022 Estimated Creatinine Clearance Calc 54.29 ml/min [facility] Estimated GFR (MDRD) Amer 83 mL/min >60 [facility] Comment on above: GFR Calc Estimated GFR (MDRD) Non-Af Amer 69 mL/min >60 [facility] Comment on above: Non- GFR Calc Platelets bldOrdered By: Dr. Nolasco on 12-31-2022 Platelets (Bld) [#/Vol] 258 10*3/uL 150-450 [facility] Protein Test strip Ql (U)Ord ered By: Dr. Nolasco on 12-31-2022 Protein Ql (U) 30 mg/dl Negative [facility] Serum or plasma albumin tara urement (mass/volume)Ordered By: Dr. Nolasco on 12-31-2022 Albumin [Mass/Vol] 3.6 g/dL 3.2-5.0 [facility] Serum or plasma albumin/glob ulin mass ratioOrdered By: Dr. Nolasco on 12-31-2022 Albumin/Globulin [Mass ratio] 0.9 {ratio} 0.9-2.4 [facility] Serum or plasma calcium tara urement (mass/volume)Ordered By: Dr. Nolasco on 12-31-2022 Calcium [Mass/Vol] 8.8 mg/dL 8.5-10.1 [facility] Serum or plasma creatinine m easurement (mass/volume)Ordered By: Dr. Nolasco on 12-31-2022 Creatinine [Mass/Vol] 0.94 mg/dL 0.55-1.02 [facility] Comment on above: The validity of the calculated GFR & GFRAA in patients over 70 years has not been determined. Clinical correlation is essential. Serum or plasma urea nitroge n measurement (mass/volume)Ordered By: Dr. Nolasco on 12-31-2022 Urea nitrogen [Mass/Vol] 14 mg/dL 7-18 [facility] Squamous epithelial cells de tection in urine sediment by light microscopyOrdered By: Dr. Nolasco on 12-31-2022 Epithelial cells.squamous LM Ql (Urine sed) 5-10 SEEN /hpf 5-10 [facility] Thin prep Papanicolaou smear with manual screeningOrdered By: Dr. Nolasco on 12-31-2022 Thin prep Papanicolaou smear with manual screening 32 U/L 15-37 [facility] Thin prep Papanicolaou smear with manual screening 5 5-15 [facility] Urine blood detectionOrdered By: Dr. Nolasco on 12-31-2022 RBC Ql (U) Negative Negative [facility] RBC Ql (U) 0 SEEN /hpf 0-5 [facility] Urine clarityOrdered By: Dr. Nolasco on 12-31-2022 Clarity (U) Sl. Cloudy Clear [facility] Urine color determinationOrd ered By: Dr. Nolasco on 12-31-2022 Color (U) Yellow Yellow [facility] Urine glucose detectionOrder ed By: Dr. Nolasco on 12-31-2022 Glucose Ql (U) Normal mg/dl Normal [facility] Urine leukocyte esterase det ection by dipstickOrdered By: Dr. Nolasco on 12-31-2022 Leukocyte esterase Test strip Ql (U) 100 /ul Negative [facility] Urine pHOrdered By: Dr. Scooby marcum on 12-31-2022 pH (U) 6.0 [pH] 5.0 - 8.0 [facility] Urine sediment bacteria coun t by microscopy (number/high power field)Ordered By: Dr. Nolasco on 12-31-2022 Bacteria LM.HPF (Urine sed) [#/Area] 1 /[HPF] None Seen [facility] Urine specific gravity measu rementOrdered By: Dr. Nolasco on 12-31-2022 Specific gravity (U) [Rel density] 1.020 1.002-1.030 [facility] Urobilinogen Auto test strip Ql (U)Ordered By: Dr. Nolasco on 12-31-2022 Urobilinogen Ql (U) 4 mg/dl Normal [facility] Absolute lymphocyte counton 12-30-2022 Lymphocytes Auto (Unsp spec) [#/Vol] 3.01 10*3/uL 0.83-4.51 [facility] Basophil percentageon 2022 Basophils/100 WBC (Bld) 0.7 % 0-1 [facility] Bilirubin [Mass/Vol] 1.00 mg/dL 0.20-1.00 [facility] Comment on above: For patients on eltr ombopag therapy, use of [place] TBIL is not recommended. Chloride [Moles/Vol] 105 mmol/L 98-107 [facility] Eosinophils/100 WBC (Bld) 2.1 % 0-5 [facility] Glucose [Mass/Vol] 90 mg/dL 74-106 [facility] Neutrophils (Bld) [#/Vol] 4.5 10*3/uL 2.0-7.7 [facility] Neutrophils/100 WBC (Bld) 54.1 % 47-70 [facility] Potassium [Moles/Vol] 2.9 mmol/L 3.5-5.1 [facility] Protein [Mass/Vol] 7.5 g/dL 6.4-8.2 [facility] Sodium [Moles/Vol] 140 mmol/L 136-145 [facility] WBC (Bld) [#/Vol] 8.4 10*3/uL 4.4-11.0 [facility] Blood erythrocytes count (nu mber/volume)on 12-30-2022 RBC (Bld) [#/Vol] 4.29 10*6/uL 4.2-5.4 [facility] Blood hemoglobin measurement (mass/volume)on 12-30-2022 Hemoglobin (Bld) [Mass/Vol] 13.1 g/dL 12.0-15.0 [facility] Blood lymphocytes/100 leukoc yteson 12-30-2022 Lymphocytes/100 WBC (Bld) 35.7 % 19-41 [facility] Blood monocytes/100 leukocyt eson 12-30-2022 Monocytes/100 WBC (Bld) 7.2 % 0-10 [facility] Blood platelet mean volumeon 12-30-2022 Platelet mean volume (Bld) [Entitic vol] 12.2 fL 6.2-12.0 [facility] Determination of erythrocyte mean corpuscular volume (MCV)on 12-30-2022 MCV (RBC) [Entitic vol] 95.1 fL 81-99 [facility] Free thyroxine indexon 12-30 Free T4 index Calc [Mass/Vol] 3.7 1.4-4.5 [facility] Hematocrit Auto (Bld) [Volum e fraction]on 12-30-2022 Hematocrit (Bld) [Volume fraction] 40.8 % 37-47 [facility] Iron measurement (mass/mass) on 12-30-2022 Iron (Unsp spec) [Mass/Mass] 64 ug/dL 50-170 [facility] Laboratory - Chemistry and C hemistry - challengeon 12-30-2022 ALP [Catalytic activity/Vol] 68 U/L 45-117 [facility] ALT [Catalytic activity/Vol] 35 U/L 13-56 [facility] CO2 [Moles/Vol] 28.0 mmol/L 21.0-32.0 [facility] Cobalamin (Vitamin B12) [Mass/Vol] 547 pg/mL 211-911 [facility] Free T4 [Mass/Vol] 1.33 ng/dL 0.76-1.46 [facility] Globulin (S) [Mass/Vol] 3.7 g/dL 2.2-4.2 [facility] T4 [Mass/Vol] 10.5 ug/dL 4.8-13.9 [facility] Urea nitrogen/Creatinine [Mass ratio] 13.2 mg/mg 10-20 [facility] Laboratory - Hematology and Cell countson 12-30-2022 Erythrocyte distribution width (RBC) [Entitic vol] 49.3 fL 35.1-43.9 [facility] Erythrocyte distribution width (RBC) [Ratio] 14.0 % 11.6-14.6 [facility] Immature granulocytes/100 WBC (Bld) 0.200 % 0.0-0.9 [facility] Comment on above: IG% - Immature Granu locytes (promyelocytes, myelocytes and metamyelocytes) > 1% indicates that a LEFT SHIFT is Present. MCH (RBC) [Entitic mass] 30.5 pg 27.0-32.0 [facility] Nucleated RBC/100 WBC (Bld) [Ratio] 0 % 0-5 [facility] MCHC Auto (RBC) [Mass/Vol]on 12-30-2022 MCHC (RBC) [Mass/Vol] 32.1 g/dL 32-36 [facility] No Panel Informationon 12-30 Estimated GFR (MDRD) Amer 86 mL/min >60 [facility] Comment on above: GFR Calc Estimated GFR (MDRD) Non-Af Amer 71 mL/min >60 [facility] Comment on above: Non- GFR Calc Parathyroid Hormone (Intact) 63.0 pg/mL 18.4-80.1 [facility] Thyroid Stimulating Hormone (TSH) 17.50 uIU/mL 0.358-3.74 [facility] Total Iron Binding Capacity 224 ug/dL 250-450 [facility] Vitamin D 25-Hydroxy 48.2 ng/mL [facility] Comment on above: Vitamin D 25(OH) Sta tus Range Deficiency <20 ng/mL (50nmol/L) Insufficiency 20 - 30 ng/mL (50 - 75 nmol/L) Sufficiency 30 - 100 ng/mL (75 - 250 nmol/L) Toxicity >100 ng/mL (>250 nmol/L) Whole Blood Vitamin B1 Level 135.8 nmol/L 66.5-200.0 [facility] Platelets bldon 12-30-2022 Platelets (Bld) [#/Vol] 247 10*3/uL 150-450 [facility] Serum or plasma albumin tara urement (mass/volume)on 12-30-2022 Albumin [Mass/Vol] 3.8 g/dL 3.2-5.0 [facility] Serum or plasma albumin/glob ulin mass ratioon 12-30-2022 Albumin/Globulin [Mass ratio] 1.0 {ratio} 0.9-2.4 [facility] Serum or plasma calcium tara urement (mass/volume)on 12-30-2022 Calcium [Mass/Vol] 8.9 mg/dL 8.5-10.1 [facility] Serum or plasma creatinine m easurement (mass/volume)on 12-30-2022 Creatinine [Mass/Vol] 0.91 mg/dL 0.55-1.02 [facility] Comment on above: The validity of the calculated GFR & GFRAA in patients over 70 years has not been determined. Clinical correlation is essential. Serum or plasma ferritin caio surement (mass/volume)on 12-30-2022 Ferritin [Mass/Vol] 169 ng/mL 8-252 [facility] Serum or plasma folate measu rement (mass/volume)on 12-30-2022 Folate [Mass/Vol] 20.60 ng/mL 3.1-55.4 [facility] Serum or plasma urea nitroge n measurement (mass/volume)on 12-30-2022 Urea nitrogen [Mass/Vol] 12 mg/dL 7-18 [facility] Serum or plasma zinc measure ment (mass/volume)on 12-30-2022 Zinc [Mass/Vol] 72 ug/dL 44-115 [facility] Comment on above: Detection Limit = 5P erformed at: [facility], [place] [id number] Director: Brent Mcgowan MD, Phone: [phone] T3 uptakeon 12-30-2022 T3RU 35 % 30-39 [facility] Thin prep Papanicolaou smear with manual screeningon 12-30-2022 Thin prep Papanicolaou smear with manual screening 36 U/L 15-37 [facility] Thin prep Papanicolaou smear with manual screening 7 5-15 [facility] Thin prep Papanicolaou smear with manual screening 110 ug/dL 80-158 [facility] Comment on above: Detection Limit = 5 Absolute lymphocyte countOrd ered By: Carlos Chris on 11-18-2022 Lymphocytes Auto (Unsp spec) [#/Vol] 3.47 10*3/uL 0.83-4.51 [facility] Basophil percentageOrdered B y: Carlos Chris on 11-18-2022 Basophils/100 WBC (Bld) 1.0 % 0-1 [facility] Bilirubin [Mass/Vol] 1.10 mg/dL 0.20-1.00 [facility] Comment on above: For patients on eltr ombopag therapy, use of [place] TBIL is not recommended. Chloride [Moles/Vol] 105 mmol/L 98-107 [facility] Eosinophils/100 WBC (Bld) 1.0 % 0-5 [facility] Glucose [Mass/Vol] 76 mg/dL 74-106 [facility] Neutrophils (Bld) [#/Vol] 3.6 10*3/uL 2.0-7.7 [facility] Neutrophils/100 WBC (Bld) 46.5 % 47-70 [facility] Potassium [Moles/Vol] 3.3 mmol/L 3.5-5.1 [facility] Protein [Mass/Vol] 7.8 g/dL 6.4-8.2 [facility] Sodium [Moles/Vol] 143 mmol/L 136-145 [facility] WBC (Bld) [#/Vol] 7.7 10*3/uL 4.4-11.0 [facility] Blood erythrocytes count (nu mber/volume)Ordered By: Carlos Chris on 11-18-2022 RBC (Bld) [#/Vol] 4.67 10*6/uL 4.2-5.4 [facility] Blood hemoglobin measurement (mass/volume)Ordered By: Carlos Chris on 11-18-2022 Hemoglobin (Bld) [Mass/Vol] 13.8 g/dL 12.0-15.0 [facility] Blood lymphocytes/100 leukoc ytesOrdered By: Carlos Chris on 11-18-2022 Lymphocytes/100 WBC (Bld) 45.0 % 19-41 [facility] Blood monocytes/100 leukocyt esOrdered By: Carlos Chris on 11-18-2022 Monocytes/100 WBC (Bld) 5.7 % 0-10 [facility] Blood platelet mean volumeOr dered By: Carlos Chris on 11-18-2022 Platelet mean volume (Bld) [Entitic vol] 11.7 fL 6.2-12.0 [facility] Determination of erythrocyte mean corpuscular volume (MCV)Ordered By: Carlos Chris on 11-18-2022 MCV (RBC) [Entitic vol] 93.8 fL 81-99 [facility] Hematocrit Auto (Bld) [Volum e fraction]Ordered By: Carlos Chris on 11-18-2022 Hematocrit (Bld) [Volume fraction] 43.8 % 37-47 [facility] Laboratory - Chemistry and C hemistry - challengeOrdered By: Carlos Chris on 11-18-2022 ALP [Catalytic activity/Vol] 65 U/L 45-117 [facility] ALT [Catalytic activity/Vol] 37 U/L 13-56 [facility] CO2 [Moles/Vol] 27.0 mmol/L 21.0-32.0 [facility] Globulin (S) [Mass/Vol] 4.1 g/dL 2.2-4.2 [facility] Urea nitrogen/Creatinine [Mass ratio] 7.0 mg/mg 10-20 [facility] - Hematology and Cell countsOrdered By: Carlos Chris on 11-18-2022 Erythrocyte distribution width (RBC) [Entitic vol] 54.4 fL 35.1-43.9 [facility] Erythrocyte distribution width (RBC) [Ratio] 15.9 % 11.6-14.6 [facility] Immature granulocytes/100 WBC (Bld) 0.800 % 0.0-0.9 [facility] Comment on above: IG% - Immature Granu locytes (promyelocytes, myelocytes and metamyelocytes) > 1% indicates that a LEFT SHIFT is Present. MCH (RBC) [Entitic mass] 29.6 pg 27.0-32.0 [facility] Nucleated RBC/100 WBC (Bld) [Ratio] 0 % 0-5 [facility] MCHC Auto (RBC) [Mass/Vol]Or dered By: Carlos Chris on 11-18-2022 MCHC (RBC) [Mass/Vol] 31.5 g/dL 32-36 [facility] No Panel InformationOrdered By: Carlos Chris on 11-18-2022 Estimated GFR (MDRD) Amer 66 mL/min >60 [facility] Comment on above: GFR Calc Estimated GFR (MDRD) Non-Af Amer 55 mL/min >60 [facility] Comment on above: Non- GFR Calc Hepatitis C Antibody Non-Reactive Nonreactive [facility] Comment on above: Non Reactive: < 0.8 Equivocal: >/= 0.8 to < 1.0 Reactive: >/= 1.0The CDC recommends that a reactive/equivocal HCV antibody result be followed up by the HCV Nucleic Acid Amplificationtest (070620) Thyroid Stimulating Hormone (TSH) 106.00 uIU/mL 0.358-3.74 [facility] Platelets bldOrdered By: Carlos Chris on 11-18-2022 Platelets (Bld) [#/Vol] 346 10*3/uL 150-450 [facility] Serum or plasma albumin tara urement (mass/volume)Ordered By: Carlos Chris on 11-18-2022 Albumin [Mass/Vol] 3.7 g/dL 3.2-5.0 [facility] Serum or plasma albumin/glob ulin mass ratioOrdered By: Carlos Chris on 11-18-2022 Albumin/Globulin [Mass ratio] 0.9 {ratio} 0.9-2.4 [facility] Serum or plasma calcium tara urement (mass/volume)Ordered By: Carlos Chris on 11-18-2022 Calcium [Mass/Vol] 8.9 mg/dL 8.5-10.1 [facility] Serum or plasma creatinine m easurement (mass/volume)Ordered By: Carlos Chris on 11-18-2022 Creatinine [Mass/Vol] 1.14 mg/dL 0.55-1.02 [facility] Comment on above: The validity of the calculated GFR & GFRAA in patients over 70 years has not been determined. Clinical correlation is essential. Serum or plasma urea nitroge n measurement (mass/volume)Ordered By: Carlos Chris on 11-18-2022 Urea nitrogen [Mass/Vol] 8 mg/dL 7-18 [facility] Thin prep Papanicolaou smear with manual screeningOrdered By: Carlos Chris on 11-18-2022 Thin prep Papanicolaou smear with manual screening 48 U/L 15-37 [facility] Thin prep Papanicolaou smear with manual screening 11 5-15 [facility] - Microbiology an d Antimicrobial susceptibilityOrdered By: Dr. Chris on 10-14-2022 SARS-CoV-2 (COVID-19) RNA GUERITA+probe Ql (Unsp spec) Not detected Not Detect [facility] Comment on above: Normal Reference Ran ge: Not DetectedMethod:(RT-PCR) real-time reverse transcriptase PCRLuminex RE Instrument*The Food and Drug Administration (FDA) has issued an Emergency Use Authorization (EAU) for the RE SARS-CoV-2 Assay for the rapid detection of the virus that causes COVID-19. This test has been validated, but the FDAs independent review of this validation is pending.*Negative results do not preclude infection and should not be used as the sole basis for treatment or patient management. Optimum specimen types and timing for peak viral levels during infections caused by SARS-CoV-2 have not been determined. Collection of multiple specimens from the same patient may be necessary to detect the virus. The possibility of a false negative result should be considered if the patient has clinical presentation or has had recent exposure. No Panel InformationOrdered By: Dr. Chris on 10-14-2022 Influenza Types A,B Direct FA ([facility]) [facility] RSV Ag EIAOrdered By: Dr. Julia jennings on 10-14-2022 RSV Ag Immune stain Ql ([facility]) [facility] CBC with Diffon 09-22-2022 AB IMMATURE NEUT 0.03 K/UL Normal 0.0-0.1 [facility] Comment on above: Performed By: #### C BCD #### [facility] [address] [address] ABS BASO 0.03 K/UL Normal 0.00-0.22 [facility] Comment on above: Performed By: #### C BCD #### [facility] [address] [address] ABS EOS 0.02 K/UL Normal 0-0.45 [facility] Comment on above: Performed By: #### C BCD #### [address] [address] ABS NEUTROPHILS 7.03 K/UL Normal 1.8-7.7 [facility] Comment on above: Performed By: #### C BCD #### [facility] [address] [address] ABS.NEUT.CALCULATED 7.03 K/UL Normal [facility] Comment on above: Result Comment: Perf ormed at [address] [address] Performed By: #### C BCD #### [address] [address] Basophils/100 WBC (Bld) 0.30 % Normal 0-1 [facility] Comment on above: Performed By: #### C BCD #### [facility] [address] [address] DIFF TYPE AUTO DIFF Normal [facility] Comment on above: Performed By: #### C BCD #### [facility] [address] [address] Eosinophils/100 WBC (Bld) 0.20 % Normal 0-3 [facility] Comment on above: Performed By: #### C BCD #### [facility] [address] [address] Erythrocyte distribution width (RBC) [Ratio] 13.5 % Normal 11.7-15.0 [facility] Comment on above: Performed By: #### C BCD #### [address] [place] [address] Hematocrit (Bld) [Volume fraction] 33.8 % Low 36-44 [facility] Comment on above: Performed By: #### C BCD #### [address] [address] [place] [address] Hemoglobin (Bld) [Mass/Vol] 11.1 g/dL Low 12.0-15.0 [facility] Comment on above: Performed By: #### C BCD #### [address] [address] [place] [address] Lymphocytes (Bld) [#/Vol] 2.81 10*3/uL Normal 1.2-3.2 [facility] Comment on above: Performed By: #### C BCD #### [address] [place] [address] Lymphocytes/100 WBC (Bld) 26.40 % Normal 20-40 [facility] Comment on above: Performed By: #### C BCD #### [address] [address] [place] [address] MCH (RBC) [Entitic mass] 30.1 pg Normal 26-34 [facility] Comment on above: Performed By: #### C BCD #### [address] [address] [place] [address] MCHC 32.8 % Normal 31-37 [facility] Comment on above: Performed By: #### C BCD #### [address] [place] [address] MCV (RBC) [Entitic vol] 91.6 fL Normal 80-100 [facility] Comment on above: Performed By: #### C BCD #### [address] [address] [place] [address] MEAN PLT VOL 10.5 CU Normal 7.0-12.6 [facility] Comment on above: Performed By: #### C BCD #### [address] [address] [place] [address] Monocytes (Bld) [#/Vol] 0.74 10*3/uL Normal 0-0.8 [facility] Comment on above: Performed By: #### C BCD #### [facility] [address] [place] [address] Monocytes/100 WBC (Bld) 6.90 % Normal 0-8 [facility] Comment on above: Performed By: #### C BCD #### [address] [address] [place] [address] Neutrophils/100 WBC (Bld) 0.30 % Normal 0.0-1.0 [facility] Comment on above: Performed By: #### C BCD #### [address] [address] [place] [address] Neutrophils/100 WBC (Bld) 65.90 % Normal 50-70 [facility] Comment on above: Performed By: #### C BCD #### [address] [place] [address] NRBC'S 0 /100 WBC Normal 0 [facility] Comment on above: Performed By: #### C BCD #### [address] [place] [address] Platelets (Bld) [#/Vol] 261 10*3/uL Normal 150-450 [facility] Comment on above: Performed By: #### C BCD #### [address] [place] [address] RBC (Bld) [#/Vol] 3.69 10*6/uL Low 4.0-4.9 [facility] Comment on above: Performed By: #### C BCD #### [facility] [address] [place] [address] RDW-SD 45.6 FL Normal 37.0-54.0 [facility] Comment on above: Performed By: #### C BCD #### [address] [address] [place] [address] WBC (Bld) [#/Vol] 10.7 10*3/uL Normal 4.5-11.0 [facility] Comment on above: Performed By: #### C BCD #### Main Laboratory [facility] [place] [address] [place] [address] Laboratory - Hematology and Cell countson 09-22-2022 Basophils (Bld) [#/Vol] Abs Baso 0.03 K/UL (0.00-0.22 K/UL) 0.00 - 0.22 K/UL [facility] Basophils/100 WBC (Bld) Basophil 0.30 % (0-1 %) 0 - 1 % [facility] Differential cell count method Nom (Bld) Diff Type AUTO DIFF (Reference Range: not available) [facility] Eosinophils (Bld) [#/Vol] Abs Eos 0.02 K/UL (0-0.45 K/UL) 0 - 0.45 K/UL [facility] Eosinophils/100 WBC (Bld) Eosinophil 0.20 % (0-3 %) 0 - 3 % [facility] Erythrocyte distribution width (RBC) [Entitic vol] RDW SD 45.6 FL (37.0-54.0 FL) 37.0 - 54.0 FL [facility] Erythrocyte distribution width (RBC) [Ratio] RDW CV 13.5 % (11.7-15.0 %) 11.7 - 15.0 % [facility] Hematocrit (Bld) [Volume fraction] HCT 33.8 % L (36-44 %) Low 36 - 44 % [facility] Hemoglobin (Bld) [Mass/Vol] HGB 11.1 GM/DL L (12.0-15.0 GM/DL) Low 12.0 - 15.0 GM/DL [facility] Immature granulocytes (Bld) [#/Vol] Abs Imm Neut 0.03 K/UL (0.0-0.1 K/UL) 0.0 - 0.1 K/UL [facility] Lymphocytes (Bld) [#/Vol] Abs Lymph 2.81 K/UL (1.2-3.2 K/UL) 1.2 - 3.2 K/UL [facility] Lymphocytes/100 WBC (Bld) Lymphocyte 26.40 % (20-40 %) 20 - 40 % [facility] MCH (RBC) [Entitic mass] MCH 30.1 PG (26-34 PG) 26 - 34 PG [facility] MCHC (RBC) [Mass/Vol] MCHC 32.8 % (31-37 %) 31 - 37 % [facility] MCV (RBC) [Entitic vol] MCV 91.6 FL (80-100 FL) 80 - 100 FL [facility] Monocytes (Bld) [#/Vol] Abs [place] 0.74 K/UL (0-0.8 K/UL) 0 - 0.8 K/UL [facility] Monocytes/100 WBC (Bld) Monocyte 6.90 % (0-8 %) 0 - 8 % [facility] Neutrophils (Bld) [#/Vol] Abs.Neut.Calculated 7.03 K/UL (Reference Range: not available) Performed at [address] [address] [facility] Neutrophils (Bld) [#/Vol] Abs Neut 7.03 K/UL (1.8-7.7 K/UL) 1.8 - 7.7 K/UL [facility] Neutrophils.immature/1 00 WBC (Bld) Immature Neut % 0.30 % (0.0-1.0 %) 0.0 - 1.0 % [facility] Nucleated RBC/100 WBC (Bld) [Ratio] NRBCs 0 /100 WBC (0 /100 WBC) [facility] Platelet mean volume (Bld) [Entitic vol] MPV 10.5 CU (7.0-12.6 CU) 7.0 - 12.6 CU [facility] Platelets (Bld) [#/Vol] PLT 261 K/UL (150-450 K/UL) 150 - 450 K/UL [facility] RBC (Bld) [#/Vol] RBC 3.69 M/UL L (4.0-4.9 M/UL) Low 4.0 - 4.9 M/UL [facility] Segmented neutrophils/100 WBC (Bld) Granulocyte 65.90 % (50-70 %) 50 - 70 % [facility] WBC (Bld) [#/Vol] WBC 10.7 K/UL (4.5-11.0 K/UL) 4.5 - 11.0 K/UL [facility] BASIC METABOLIC PANELon 12- Anion gap [Moles/Vol] 10 mmol/L Normal 0-19 [facility] Comment on above: Performed By: #### B MP #### [facility] [address] [address] [place] [address] Calcium [Mass/Vol] 8.2 mg/dL Low 8.5-10.4 [facility] Comment on above: Performed By: #### B MP #### [facility] [address] [address] [place] [address] Chloride [Moles/Vol] 103 mmol/L Normal 97-107 [facility] Comment on above: Performed By: #### B MP #### [facility] [address] [address] CO2 [Moles/Vol] 23 mmol/L Low 24-31 [facility] Comment on above: Performed By: #### B MP #### [facility] [address] [address] Creatinine [Mass/Vol] 1.0 mg/dL Normal 0.4-1.6 [facility] Comment on above: Performed By: #### B MP #### [facility] [address] [address] [place] [address] ESTIMATED GFR 71 mL/min/1.73 m2 [facility] Comment on above: Result Comment: CALCULATIONS OF ESTIMATED GFR ARE PERFORMED USING THE 2020 CKD-EPI STUDY REFIT EQUATION WITHOUT THE RACE VARIABLE FOR THE IDMS-TRACEABLE CREATININE METHODS. https://jasn.asnjournals.org/content//ASN.05023 [address] Performed at [address] [place] [address] Performed By: #### B MP #### [facility] [address] [place] [address] Glucose [Mass/Vol] 117 mg/dL High 65-99 [facility] Comment on above: Performed By: #### B MP #### [facility] [address] [address] Potassium [Moles/Vol] 4.3 mmol/L Normal 3.4-5.1 [facility] Comment on above: Performed By: #### B MP #### [facility] [address] [address] [place] [address] Sodium [Moles/Vol] 136 mmol/L Normal 133-145 [facility] Comment on above: Performed By: #### B MP #### [facility] [address] [address] [place] [address] Urea nitrogen [Mass/Vol] 13 mg/dL Normal 8-25 [facility] Comment on above: Performed By: #### B MP #### [facility] [address] [address] [place] [address] Urea nitrogen/Creatinine [Mass ratio] 13.0 mg/mg Normal 8-21 [facility] Comment on above: Performed By: #### B MP #### [facility] [address] [address] [place] [address] CBC with Diffon 09-21-2022 AB IMMATURE NEUT 0.07 K/UL Normal 0.0-0.1 [facility] Comment on above: Performed By: #### C BCD #### [facility] [address] [address] [place] [address] ABS BASO 0.02 K/UL Normal 0.00-0.22 [facility] Comment on above: Performed By: #### C BCD #### [facility] [address] [address] [place] [address] ABS EOS 0.00 K/UL Normal 0-0.45 [facility] Comment on above: Performed By: #### C BCD #### [facility] [address] [address] [place] [address] ABS NEUTROPHILS 10.47 K/UL High 1.8-7.7 [facility] Comment on above: Performed By: #### C BCD #### [facility] [address] [address] [place] [address] ABS.NEUT.CALCULATED 10.47 K/UL Normal [facility] Comment on above: Result Comment: Perf ormed at [address] [address] [place] [address] Performed By: #### C BCD #### [facility] [address] [address] [place] [address] Basophils/100 WBC (Bld) 0.10 % Normal 0-1 [facility] Comment on above: Performed By: #### C BCD #### [facility] [address] [place] [address] DIFF TYPE AUTO DIFF Normal [facility] Comment on above: Performed By: #### C BCD #### [address] [address] [place] [address] Eosinophils/100 WBC (Bld) 0.00 % Normal 0-3 [facility] Comment on above: Performed By: #### C BCD #### [address] [address] [place] [address] Erythrocyte distribution width (RBC) [Ratio] 13.4 % Normal 11.7-15.0 [facility] Comment on above: Performed By: #### C BCD #### [address] [address] [place] [address] Hematocrit (Bld) [Volume fraction] 36.1 % Normal 36-44 [facility] Comment on above: Performed By: #### C BCD #### [address] [address] [place] [address] Hemoglobin (Bld) [Mass/Vol] 11.8 g/dL Low 12.0-15.0 [facility] Comment on above: Performed By: #### C BCD #### [address] [address] [place] [address] Lymphocytes (Bld) [#/Vol] 2.29 10*3/uL Normal 1.2-3.2 [facility] Comment on above: Performed By: #### C BCD #### [address] [address] [place] [address] Lymphocytes/100 WBC (Bld) 16.70 % Low 20-40 [facility] Comment on above: Performed By: #### C BCD #### [address] [address] [place] [address] MCH (RBC) [Entitic mass] 30.1 pg Normal 26-34 [facility] Comment on above: Performed By: #### C BCD #### [address] [address] [place] [address] MCHC 32.7 % Normal 31-37 [facility] Comment on above: Performed By: #### C BCD #### [facility] [address] [address] [place] [address] MCV (RBC) [Entitic vol] 92.1 fL Normal 80-100 [facility] Comment on above: Performed By: #### C BCD #### [facility] [address] [address] [place] [address] MEAN PLT VOL 10.5 CU Normal 7.0-12.6 [facility] Comment on above: Performed By: #### C BCD #### [address] [address] [place] [address] Monocytes (Bld) [#/Vol] 0.90 10*3/uL High 0-0.8 [facility] Comment on above: Performed By: #### C BCD #### [address] [address] [place] [address] Monocytes/100 WBC (Bld) 6.50 % Normal 0-8 [facility] Comment on above: Performed By: #### C BCD #### [address] [address] [place] [address] Neutrophils/100 WBC (Bld) 0.50 % Normal 0.0-1.0 [facility] Comment on above: Performed By: #### C BCD #### [address] [address] [place] [address] Neutrophils/100 WBC (Bld) 76.20 % High 50-70 [facility] Comment on above: Performed By: #### C BCD #### [facility] [address] [address] [place] [address] NRBC'S 0 /100 WBC Normal 0 [facility] Comment on above: Performed By: #### C BCD #### [facility] [address] [address] [place] [address] Platelets (Bld) [#/Vol] 309 10*3/uL Normal 150-450 [facility] Comment on above: Performed By: #### C BCD #### [facility] [place] [address] [place] [address] RBC (Bld) [#/Vol] 3.92 10*6/uL Low 4.0-4.9 [facility] Comment on above: Performed By: #### C BCD #### [facility] [address] [address] [place] [address] RDW-SD 45.8 FL Normal 37.0-54.0 [facility] Comment on above: Performed By: #### C BCD #### [facility] [address] [address] WBC (Bld) [#/Vol] 13.8 10*3/uL High 4.5-11.0 [facility] Comment on above: Performed By: #### C BCD #### [facility] [address] [address] [place] [address] AB IMMATURE NEUT 0.08 K/UL Normal 0.0-0.1 [facility] Comment on above: Performed By: #### B MP #### [facility] [address] [address] ABS BASO 0.02 K/UL Normal 0.00-0.22 [facility] Comment on above: Performed By: #### B MP #### [facility] [address] [address] ABS EOS 0.00 K/UL Normal 0-0.45 [facility] Comment on above: Performed By: #### B MP #### [facility] [address] [address] [place] [address] ABS NEUTROPHILS 11.86 K/UL High 1.8-7.7 [facility] Comment on above: Performed By: #### B MP #### [facility] [address] [address] [place] [address] ABS.NEUT.CALCULATED 11.86 K/UL Normal [facility] Comment on above: Result Comment: [facility]med at [address] [address] [facility] [address] Performed By: #### B MP #### [facility] [address] [address] [place] [address] Basophils/100 WBC (Bld) 0.10 % Normal 0-1 [facility] Comment on above: Performed By: #### B MP #### [facility] [place] [address] [place] [address] DIFF TYPE AUTO DIFF Normal [facility] Comment on above: Performed By: #### B MP #### [address] [address] [place] [address] Eosinophils/100 WBC (Bld) 0.00 % Normal 0-3 [facility] Comment on above: Performed By: #### B MP #### [address] [address] [place] [address] Erythrocyte distribution width (RBC) [Ratio] 13.3 % Normal 11.7-15.0 [facility] Comment on above: Performed By: #### B MP #### [address] [address] [place] [address] Hematocrit (Bld) [Volume fraction] 35.7 % Low 36-44 [facility] Comment on above: Performed By: #### B MP #### [address] [address] [place] [address] Hemoglobin (Bld) [Mass/Vol] 11.8 g/dL Low 12.0-15.0 [facility] Comment on above: Performed By: #### B MP #### [address] [address] [place] [address] Lymphocytes (Bld) [#/Vol] 1.81 10*3/uL Normal 1.2-3.2 [facility] Comment on above: Performed By: #### B MP #### [address] [address] [place] [address] Lymphocytes/100 WBC (Bld) 12.40 % Low 20-40 [facility] Comment on above: Performed By: #### B MP #### [facility] [address] [address] [place] [address] MCH (RBC) [Entitic mass] 30.1 pg Normal 26-34 [facility] Comment on above: Performed By: #### B MP #### [address] [address] [place] [address] MCHC 33.1 % Normal 31-37 [facility] Comment on above: Performed By: #### B MP #### [facility] [address] [address] [place] [address] MCV (RBC) [Entitic vol] 91.1 fL Normal 80-100 [facility] Comment on above: Performed By: #### B MP #### [facility] [address] [address] [place] [address] MEAN PLT VOL 10.3 CU Normal 7.0-12.6 [facility] Comment on above: Performed By: #### B MP #### [facility] [address] [address] [place] [address] Monocytes (Bld) [#/Vol] 0.85 10*3/uL High 0-0.8 [facility] Comment on above: Performed By: #### B MP #### [address] [address] [place] [address] Monocytes/100 WBC (Bld) 5.80 % Normal 0-8 [facility] Comment on above: Performed By: #### B MP #### [facility] [address] [address] [place] [address] Neutrophils/100 WBC (Bld) 0.50 % Normal 0.0-1.0 [facility] Comment on above: Performed By: #### B MP #### [address] [address] [place] [address] Neutrophils/100 WBC (Bld) 81.20 % High 50-70 [facility] Comment on above: Performed By: #### B MP #### [facility] [address] [address] [place] [place] [address] NRBC'S 0 /100 WBC Normal 0 [facility] Comment on above: Performed By: #### B MP #### [facility] [address] [address] [place] [address] Platelets (Bld) [#/Vol] 313 10*3/uL Normal 150-450 [facility] Comment on above: Performed By: #### B MP #### [facility] [address] [address] [place] [address] RBC (Bld) [#/Vol] 3.92 10*6/uL Low 4.0-4.9 [facility] Comment on above: Performed By: #### B MP #### Main Laboratory [address] [address] RDW-SD 45.0 FL Normal 37.0-54.0 [facility] Comment on above: Performed By: #### B MP #### [facility] [address] [address] WBC (Bld) [#/Vol] 14.6 10*3/uL High 4.5-11.0 [facility] Comment on above: Performed By: #### B MP #### [facility] [address] [address] Laboratory - Chemistry and C hemistry - challengeon 09-21-2022 Anion gap [Moles/Vol] Anion Gap 10 MMOL/ L (0-19 MMOL/L) 0 - 19 MMOL/L [facility] Calcium [Mass/Vol] Calcium 8.2 MG/DL L (8.5-10.4 MG/DL) Low 8.5 - 10.4 MG/DL [facility] Chloride [Moles/Vol] Chloride 103 MMOL/L (97-107 MMOL/L) 97 - 107 MMOL/L [facility] CO2 [Moles/Vol] Carbon Dioxide 23 MMOL/L L (24-31 MMOL/L) Low 24 - 31 MMOL/L [facility] Creatinine [Mass/Vol] Creatinine R 1.0 M G/DL (0.4-1.6 MG/DL) 0.4 - 1.6 MG/DL [facility] GFR/1.73 sq M.predicted MDRD (S/P/Bld) [Vol rate/Area] EGFR 71 mL/min/1.73 m2 (Reference Range: not available) CALCULATIONS OF ESTIMATED GFR ARE PERFORMED USING THE 2020 CKD-EPI STUDY REFIT EQUATION WITHOUT THE RACE VARIABLE FOR THE IDMS-TRACEABLE CREATININE METHODS. https://johnn.ryanjourna ls.org/content//ASN.71275922 88 Performed at [address] [address] [facility] Glucose [Mass/Vol] Glucose 117 MG/DL H (65-99 MG/DL) High 65 - 99 MG/DL [facility] Potassium [Moles/Vol] Potassium R 4.3 MM OL/L (3.4-5.1 MMOL/L) 3.4 - 5.1 MMOL/L [facility] Sodium [Moles/Vol] Sodium 136 MMOL/L (133-145 MMOL/L) 133 - 145 MMOL/L [facility] Urea nitrogen [Mass/Vol] BUN 13 MG/DL (8-25 MG/DL) 8 - 25 MG/DL [facility] Urea nitrogen/Creatinine [Mass ratio] BUN Creatinine Ratio 13.0 RATIO (8-21 RATIO) 8 - 21 RATIO [facility] [place] [facility] - Hematology and Cell countson 09-21-2022 Erythrocyte distribution width (RBC) [Entitic vol] RDW SD 45.8 FL (37.0-54.0 FL) 37.0 - 54.0 FL [facility] [place] Erythrocyte distribution width (RBC) [Ratio] RDW CV 13.4 % (11.7-15.0 %) 11.7 - 15.0 % [facility] [place] Hematocrit (Bld) [Volume fraction] HCT 36.1 % (36-44 %) 36 - 44 % [facility] Enter prise Immature granulocytes (Bld) [#/Vol] Abs Imm Neut 0.07 K/UL (0.0-0.1 K/UL) 0.0 - 0.1 K/UL [facility] Lymphocytes (Bld) [#/Vol] Abs Lymph 2.29 K/UL (1.2-3.2 K/UL) 1.2 - 3.2 K/UL [facility] [place] Lymphocytes/100 WBC (Bld) Lymphocyte 16.70 % L (20-40 %) Low 20 - 40 % [facility] MCHC (RBC) [Mass/Vol] MCHC 32.7 % (31-37 %) 31 - 37 % [facility] MCV (RBC) [Entitic vol] MCV 92.1 FL (80-100 FL) 80 - 100 FL [facility] [place] Monocytes (Bld) [#/Vol] Abs Panola 0.90 K/UL H (0-0.8 K/UL) High 0 - 0.8 K/UL [facility] [place] Monocytes/100 WBC (Bld) Monocyte 6.50 % (0-8 %) 0 - 8 % [facility] [facility] Neutrophils (Bld) [#/Vol] Abs.Neut.Calculated 10.47 K/UL (Reference Range: not available) Performed at [address] [address] [facility] Neutrophils (Bld) [#/Vol] Abs Neut 10.47 K/UL H (1.8-7.7 K/UL) High 1.8 - 7.7 K/UL [facility] Platelet mean volume (Bld) [Entitic vol] MPV 10.5 CU (7.0-12.6 CU) 7.0 - 12.6 CU [facility] Platelets (Bld) [#/Vol] PLT 309 K/UL (150-450 K/UL) 150 - 450 K/UL [facility] Segmented neutrophils/100 WBC (Bld) Granulocyte 76.20 % H (50-70 %) High 50 - 70 % [facility] WBC (Bld) [#/Vol] WBC 13.8 K/UL H (4.5-11.0 K/UL) High 4.5 - 11.0 K/UL [facility] Basophils (Bld) [#/Vol] Abs Baso 0.02 K/UL (0.00-0.22 K/UL) 0.00 - 0.22 K/UL [facility] Basophils/100 WBC (Bld) Basophil 0.10 % (0-1 %) 0 - 1 % [facility] Differential cell count method Nom (Bld) Diff Type AUTO DIFF (Reference Range: not available) [facility] [facility] Eosinophils (Bld) [#/Vol] Abs Eos 0.00 K/UL (0-0.45 K/UL) 0 - 0.45 K/UL [facility] Eosinophils/100 WBC (Bld) Eosinophil 0.00 % (0-3 %) 0 - 3 % [facility] Erythrocyte distribution width (RBC) [Entitic vol] RDW SD 45.0 FL (37.0-54.0 FL) 37.0 - 54.0 FL [facility] Erythrocyte distribution width (RBC) [Ratio] RDW CV 13.3 % (11.7-15.0 %) 11.7 - 15.0 % [facility] Hematocrit (Bld) [Volume fraction] HCT 35.7 % L (36-44 %) Low 36 - 44 % [facility] Hemoglobin (Bld) [Mass/Vol] HGB 11.8 GM/DL L (12.0-15.0 GM/DL) Low 12.0 - 15.0 GM/DL [facility] Immature granulocytes (Bld) [#/Vol] Abs Imm Neut 0.08 K/UL (0.0-0.1 K/UL) 0.0 - 0.1 K/UL [facility] Lymphocytes (Bld) [#/Vol] Abs Lymph 1.81 K/UL (1.2-3.2 K/UL) 1.2 - 3.2 K/UL [facility] Lymphocytes/100 WBC (Bld) Lymphocyte 12.40 % L (20-40 %) Low 20 - 40 % [facility] MCH (RBC) [Entitic mass] MCH 30.1 PG (26-34 PG) 26 - 34 PG [facility] MCHC (RBC) [Mass/Vol] MCHC 33.1 % (31-37 %) 31 - 37 % [facility] MCV (RBC) [Entitic vol] MCV 91.1 FL (80-100 FL) 80 - 100 FL [facility] Monocytes (Bld) [#/Vol] Abs Panola 0.85 K/UL H (0-0.8 K/UL) High 0 - 0.8 K/UL [facility] Monocytes/100 WBC (Bld) Monocyte 5.80 % (0-8 %) 0 - 8 % [facility] Neutrophils (Bld) [#/Vol] Abs.Neut.Calculated 11.86 K/UL (Reference Range: not available) Performed at [address] [address] [facility] Neutrophils (Bld) [#/Vol] Abs Neut 11.86 K/UL H (1.8-7.7 K/UL) High 1.8 - 7.7 K/UL [facility] Neutrophils.immature/1 00 WBC (Bld) Immature Neut % 0.50 % (0.0-1.0 %) 0.0 - 1.0 % [facility] Nucleated RBC/100 WBC (Bld) [Ratio] NRBCs 0 /100 WBC (0 /100 WBC) [facility] Platelet mean volume (Bld) [Entitic vol] MPV 10.3 CU (7.0-12.6 CU) 7.0 - 12.6 CU [facility] [facility] Platelets (Bld) [#/Vol] PLT 313 K/UL (150-450 K/UL) 150 - 450 K/UL [facility] RBC (Bld) [#/Vol] RBC 3.92 M/UL L (4.0-4.9 M/UL) Low 4.0 - 4.9 M/UL [facility] Segmented neutrophils/100 WBC (Bld) Granulocyte 81.20 % H (50-70 %) High 50 - 70 % [facility] [facility] WBC (Bld) [#/Vol] WBC 14.6 K/UL H (4.5-11.0 K/UL) High 4.5 - 11.0 K/UL [facility] No Panel Informationon 09-21 XR UGI with KUB (Reference Range: not available) *FINAL Date of Service: 09/21/2022 09:34 Adm #: [id number] Reading Dr:BRINA LARSEN Signoff Dr: BRINA LARSEN PROCEDURE: UGI W KUB - WXR 0132 REASON FOR EXAM: Post Laparoscopic Gastric Bypass RESULT: Patient Name: ROMAIN MENDOZA STUDY: UGI W KUB; 09/21/2022 9:34 am INDICATION: Post Laparoscopic Gastric Bypass. Status post Simona-en-Y procedure. COMPARISON: None ACCESSION NUMBER(S): [id number] ORDERING CLINICIAN: ANAID GARSIA TECHNIQUE: Fluoroscopic and radiographic evaluation of the thoracic esophagus and stomach was performed. A water-soluble contrast examination was performed. A baseball scout KUB was performed. Fluoroscopy time: 51 seconds [...] evidence for obstruction or leak. Dictation workstation: [id number] Original Interpreting Physician: BRINA LARSEN M.D. Original Transcribed by/Date: MMODAL Sep 21 2022 8:00A Original Electronically Signed by/Date: BRINA LARSEN M.D. Sep 21 2022 1:48P Addendum Interpreting Physician: Addendum Transcribed by/Date: NO ADDENDUM Addendum Electronically Signed by/Date: [facility] UGI W KUBon 09-21-2022 UGI W KUB *FINAL Date of Service: 09/21/2022 09:34 Adm #: [id number] Reading Dr:BRINA LARSEN Signoff Dr: BRINA LARSEN PROCEDURE: UGI W KUB - WXR 0132 REASON FOR EXAM: Post Laparoscopic Gastric Bypass RESULT: Patient Name: ROMAIN MENDOZA STUDY: UGI W KUB; 09/21/2022 9:34 am INDICATION: Post Laparoscopic Gastric Bypass. Status post Simona-en-Y procedure. COMPARISON: None ACCESSION NUMBER(S): [id number] ORDERING CLINICIAN: ANAID GARSIA TECHNIQUE: Fluoroscopic and radiographic evaluation of the thoracic esophagus and stomach was performed. A water-soluble contrast examination was performed. A baseball scout KUB was performed. Fluoroscopy time: 51 seconds [...] evidence for obstruction or leak. Dictation workstation: [id number] Original Interpreting Physician: BRINA LARSEN M.D. Original Transcribed by/Date: MMODAL Sep 21 2022 8:00A Original Electronically Signed by/Date: BRINA LARSEN M.D. Sep 21 2022 1:48P Addendum Interpreting Physician: Addendum Transcribed by/Date: NO ADDENDUM Addendum Electronically Signed by/Date: Normal [facility] CBC with Diffon 08-26-2022 AB IMMATURE NEUT 0.04 K/UL Normal 0.0-0.1 [facility] Comment on above: Performed By: #### B 12 #### [facility] [place] [address] [place] [address] ABS BASO 0.09 K/UL Normal 0.00-0.22 [facility] Comment on above: Performed By: #### B 12 #### [facility] [place] [address] [place] [address] ABS EOS 0.09 K/UL Normal 0-0.45 [facility] Comment on above: Performed By: #### B 12 #### [facility] [place] [address] [place] [address] ABS NEUTROPHILS 7.20 K/UL Normal 1.8-7.7 [facility] Comment on above: Performed By: #### B 12 #### [facility] [place] [address] [place] [address] ABS.NEUT.CALCULATED 7.20 K/UL Normal [facility] Comment on above: Result Comment: Perf ormed at [facility] [place] [address] [place] [address] Performed By: #### B 12 #### [facility] [address] [place] [address] Basophils/100 WBC (Bld) 0.70 % Normal 0-1 [facility] Comment on above: Performed By: #### B 12 #### [facility] [place] [address] [place] [address] DIFF TYPE AUTO DIFF Normal [facility] Comment on above: Performed By: #### B 12 #### [facility] [place] [address] [place] [address] Eosinophils/100 WBC (Bld) 0.70 % Normal 0-3 [facility] Comment on above: Performed By: #### B 12 #### [facility] [place] [address] [place] [address] Erythrocyte distribution width (RBC) [Ratio] 12.6 % Normal 11.7-15.0 [facility] Comment on above: Performed By: #### B 12 #### [facility] [place] [address] [place] [address] Hematocrit (Bld) [Volume fraction] 43.5 % Normal 36-44 [facility] Comment on above: Performed By: #### B 12 #### [facility] [place] [address] [place] [address] Hemoglobin (Bld) [Mass/Vol] 13.8 g/dL Normal 12.0-15.0 [facility] Comment on above: Performed By: #### B 12 #### [facility] [place] [address] [place] [address] Lymphocytes (Bld) [#/Vol] 4.47 10*3/uL High 1.2-3.2 [facility] Comment on above: Performed By: #### B 12 #### [facility] [place] [address] [place] [address] Lymphocytes/100 WBC (Bld) 34.90 % Normal 20-40 [facility] Comment on above: Performed By: #### B 12 #### [address] [address] [place] [address] MCH (RBC) [Entitic mass] 29.2 pg Normal 26-34 [facility] Comment on above: Performed By: #### B 12 #### [address] [address] [place] [address] MCHC 31.7 % Normal 31-37 [facility] Comment on above: Performed By: #### B 12 #### [address] [address] [place] [address] MCV (RBC) [Entitic vol] 92.2 fL Normal 80-100 [facility] Comment on above: Performed By: #### B 12 #### [facility] [address] [place] [address] MEAN PLT VOL 11.5 CU Normal 7.0-12.6 [facility] Comment on above: Performed By: #### B 12 #### [facility] [place] [address] [place] [address] Monocytes (Bld) [#/Vol] 0.93 10*3/uL High 0-0.8 [facility] Comment on above: Performed By: #### B 12 #### [facility] [place] [address] [place] [address] Monocytes/100 WBC (Bld) 7.30 % Normal 0-8 [facility] Comment on above: Performed By: #### B 12 #### [facility] [address] [place] [address] Neutrophils/100 WBC (Bld) 0.30 % Normal 0.0-1.0 [facility] Comment on above: Performed By: #### B 12 #### [facility] [address] [place] [address] Neutrophils/100 WBC (Bld) 56.10 % Normal 50-70 [facility] Comment on above: Performed By: #### B 12 #### [facility] [address] [place] [address] NRBC'S 0 /100 WBC Normal 0 [facility] Comment on above: Performed By: #### B 12 #### [place] [address] [place] [address] Platelets (Bld) [#/Vol] 381 10*3/uL Normal 150-450 [facility] Other Comment on above: Performed By: #### B 12 #### [facility] [address] [place] [address] RBC (Bld) [#/Vol] 4.72 10*6/uL Normal 4.0-4.9 [facility] Comment on above: Performed By: #### B 12 #### [facility] [address] [place] [address] RDW-SD 43.1 FL Normal 37.0-54.0 [facility] Comment on above: Performed By: #### B 12 #### [facility] [address] [place] [address] WBC (Bld) [#/Vol] 12.8 10*3/uL High 4.5-11.0 [facility] Comment on above: Performed By: #### B 12 #### [facility] [address] [place] [address] Differential cell count method Nom (Bld) AUTO DIFF [facility] Other Erythrocyte distribution width (RBC) [Entitic vol] 43.1000 fL 37.0-54.0 FL [facility]. Other Erythrocyte distribution width (RBC) [Ratio] 12.600 % 11.7-15.0 % [facility]. Other Hematocrit (Bld) [Volume fraction] 43.500 % 36-44 % [facility]. Other Hemoglobin (Bld) [Mass/Vol] 13.6002359 g/dL 12.0-15.0 GM/DL [facility]. Other MCH (RBC) [Entitic mass] 29.2000 pg 26-34 PG [facility]. Other MCHC (RBC) [Mass/Vol] 31.7 % 31-37 % [facility]. Other MCV (RBC) [Entitic vol] 92.2000 fL 80-100 FL [facility] Other Nucleated RBC/100 WBC (Bld) [Ratio] 0 /100 WBC 0 /100 WBC [facility]. Other Platelet mean volume (Bld) [Entitic vol] 11.5 CU 7.0-12.6 CU [facility] Other RBC (Bld) [#/Vol] 4.9914303 10*6/uL 4.0-4.9 M/U L [facility]. Other WBC (Bld) [#/Vol] 12.407992 10*3/uL High 4.5-1 1.0 K/UL [facility] Other CBC with Diff Performed at [facility] [address] [facility] [address] [facility] Other [facility] 08-26-2022 Albumin [Mass/Vol] 4.2 g/dL Normal 3.5-5.0 [facility] Comment on above: Performed By: #### C WASHER HAND #### [facility] [address] [place] [address] Albumin/Globulin [Mass ratio] 1.2 {ratio} Low 1.5-3.0 [facility] Comment on above: Performed By: #### C WASHER HAND #### [facility] [place] [address] [place] [address] ALP [Catalytic activity/Vol] 68 U/L Normal 35-125 [facility] Comment on above: Performed By: #### C WASHER HAND #### [facility] [address] [address] [place] [address] Bilirubin [Mass/Vol] 0.7 mg/dL Normal 0.1-1.2 [facility] Comment on above: Performed By: #### C WASHER HAND #### [facility] [address] [address] Calcium [Mass/Vol] 9.3 mg/dL Normal 8.5-10.4 [facility] Comment on above: Performed By: #### C WASHER HAND #### [facility] [address] [address] Creatinine [Mass/Vol] 1.0 mg/dL Normal 0.4-1.6 [facility] Comment on above: Performed By: #### C WASHER HAND #### [facility] [address] [address] [place] [address] ESTIMATED GFR 71 mL/min/1.73 m2 Normal [facility] Comment on above: Result Comment: CALCULATIONS OF ESTIMATED GFR ARE PERFORMED USING THE 2020 CKD-EPI STUDY REFIT EQUATION WITHOUT THE RACE VARIABLE FOR THE IDMS-TRACEABLE CREATININE METHODS. https://jasn.asnjournals.org/content/early//ASN.69690 [address] Performed at [address] [place] [address] Performed By: #### C WASHER HAND #### [facility] [place] [address] [place] [address] Globulin (S) [Mass/Vol] 3.4 g/dL Normal 1.9-3.7 [facility] Comment on above: Performed By: #### C WASHER HAND #### [facility] [address] [address] [place] [address] Potassium [Moles/Vol] 4.2 mmol/L Normal 3.4-5.1 [facility] Comment on above: Performed By: #### C WASHER HAND #### [facility] [place] [address] [place] [address] Protein [Mass/Vol] 7.6 g/dL Normal 5.9-7.9 [facility] Comment on above: Performed By: #### C WASHER HAND #### [address] [place] [address] Urea nitrogen/Creatinine [Mass ratio] 15.0 mg/mg Normal 8-21 [facility] Comment on above: Performed By: #### C WASHER HAND #### [address] [address] [place] [address] Panel, Comprehensive Metabol icon 08-26-2022 Albumin/Globulin [Mass ratio] 1.8774527 {ratio} Low 1.5-3.0 RATIO [facility]. Other ALP (Bld) [Catalytic activity/Vol] 68 U/L 35-125 U/L [facility]. Other ALT [Catalytic activity/Vol] 23 U/L Normal 5-40 [facility]. Other Comment on above: Performed By: #### C WASHER HAND #### [address] [address] [place] [address] Anion gap [Moles/Vol] 12 mmol/L Normal 0-19 [facility]. Other Comment on above: Performed By: #### C WASHER HAND #### [address] [address] [place] [address] AST [Catalytic activity/Vol] 35 U/L Normal 5-40 [facility] Other Comment on above: Performed By: #### C WASHER HAND #### [address] [address] Bilirubin [Mass/Vol] 0.4545368 mg/dL 0.1- 1.2 MG/DL [facility] Other Calcium [Mass/Vol] 9.4423698 mg/dL 8.5-10 .4 MG/DL [facility] Other Chloride [Moles/Vol] 100 mmol/L Normal 97-107 [facility] Other Comment on above: Performed By: #### C WASHER HAND #### [address] [address] CO2 [Moles/Vol] 26 mmol/L Normal 24-31 [facility] Other Comment on above: Performed By: #### C WASHER HAND #### [address] [address] Creatinine [Mass/Vol] 1.0154700 mg/dL 0.4 -1.6 MG/DL [facility] Other GFR/1.73 sq M.predicted MDRD (S/P/Bld) [Vol rate/Area] Performed at [address] [address] [facility] Other Globulin (S) [Mass/Vol] 3.073994 g/dL 1.9-3.7 G/DL [facility] Other Glucose [Mass/Vol] 101 mg/dL High 65-99 [facility] Other Comment on above: Performed By: #### C WASHER HAND #### [address] [address] Potassium [Moles/Vol] 4.97862508 mmol/L 3 .4-5.1 MMOL/L [facility] Other Protein [Mass/Vol] 4.7441588 g/dL 3.5-5.0 GM/DL [facility] Other Protein [Mass/Vol] 7.980577 g/dL 5.9-7.9 G/DL [facility] Other Sodium [Moles/Vol] 138 mmol/L Normal 133-145 [facility] PH [facility] Other Comment on above: Performed By: #### C WASHER HAND #### [address] [address] Urea nitrogen [Mass/Vol] 15 mg/dL Normal 8-25 [facility] Other Comment on above: Performed By: #### C WASHER HAND #### [facility] [address] [address] Urea nitrogen/Creatinine [Mass ratio] 15.0675947 mg/mg 8-21 RATIO [facility] Other Absolute lymphocyte countOrd ered By: Dr. Chris on 07-15-2022 Lymphocytes Auto (Unsp spec) [#/Vol] 2.11 10*3/uL 0.83-4.51 [facility] Basophil percentageOrdered B y: Dr. Chris on 07-15-2022 Basophils/100 WBC (Bld) 0.2 % 0-1 [facility] Bilirubin [Mass/Vol] 0.60 mg/dL 0.20-1.00 [facility] Comment on above: For patients on eltr ombopag therapy, use of Dimension [place] TBIL is not recommended. Chloride [Moles/Vol] 104 mmol/L 98-107 [facility] Eosinophils/100 WBC (Bld) 0.0 % 0-5 [facility] Glucose [Mass/Vol] 121 mg/dL 74-106 [facility] Comment on above: Fasting Glucose resu lt from 100 to 125 mg/dL suggests IMPAIRED HOMEOSTASIS per A.D.A. criteria. Neutrophils (Bld) [#/Vol] 12.0 10*3/uL 2.0-7.7 [facility] Neutrophils/100 WBC (Bld) 81.5 % 47-70 [facility] Potassium [Moles/Vol] 3.8 mmol/L 3.5-5.1 [facility] Protein [Mass/Vol] 7.2 g/dL 6.4-8.2 [facility] Sodium [Moles/Vol] 137 mmol/L 136-145 [facility] WBC (Bld) [#/Vol] 14.7 10*3/uL 4.4-11.0 [facility] Blood erythrocytes count (nu mber/volume)Ordered By: Dr. Chris on 07-15-2022 RBC (Bld) [#/Vol] 4.27 10*6/uL 4.2-5.4 [facility] Blood hemoglobin measurement (mass/volume)Ordered By: Dr. Chris on 07-15-2022 Hemoglobin (Bld) [Mass/Vol] 13.0 g/dL 12.0-15.0 [facility] Blood lymphocytes/100 leukoc ytesOrdered By: Dr. Chris on 07-15-2022 Lymphocytes/100 WBC (Bld) 14.4 % 19-41 [facility] Blood monocytes/100 leukocyt esOrdered By: Dr. Chris on 07-15-2022 Monocytes/100 WBC (Bld) 2.7 % 0-10 [facility] Blood platelet mean volumeOr dered By: Dr. Chris on 07-15-2022 Platelet mean volume (Bld) [Entitic vol] 10.1 fL 6.2-12.0 [facility] Determination of erythrocyte mean corpuscular volume (MCV)Ordered By: Dr. Chris on 07-15-2022 MCV (RBC) [Entitic vol] 91.3 fL 81-99 [facility] Hematocrit Auto (Bld) [Volum e fraction]Ordered By: Dr. Chris on 07-15-2022 Hematocrit (Bld) [Volume fraction] 39.0 % 37-47 [facility] INR in Blood by Coagulation assayOrdered By: Dr. Chris on 07-15-2022 INR Coag (Bld) [Relative time] 1.1 {INR} [facility] - Chemistry and C hemistry - challengeOrdered By: Dr. Chris on 07-15-2022 ALP [Catalytic activity/Vol] 55 U/L 45-117 [facility] ALT [Catalytic activity/Vol] 38 U/L 13-56 [facility] CO2 [Moles/Vol] 25.0 mmol/L 21.0-32.0 [facility] Globulin (S) [Mass/Vol] 4.0 g/dL 2.2-4.2 [facility] Urea nitrogen/Creatinine [Mass ratio] 21.9 mg/mg 10-20 [facility] - CoagulationOrde red By: Dr. Chris on 07-15-2022 PT Coag (PPP) [Time] 13.5 s 11.7-14.9 [facility] - Hematology and Cell countsOrdered By: Dr. Chris on 07-15-2022 Erythrocyte distribution width (RBC) [Entitic vol] 42.4 fL 35.1-43.9 [facility] Erythrocyte distribution width (RBC) [Ratio] 12.8 % 11.6-14.6 [facility] Immature granulocytes/100 WBC (Bld) 1.200 % 0.0-0.9 [facility] Comment on above: IG% - Immature Granu locytes (promyelocytes, myelocytes and metamyelocytes) > 1% indicates that a LEFT SHIFT is Present. MCH (RBC) [Entitic mass] 30.4 pg 27.0-32.0 [facility] Nucleated RBC/100 WBC (Bld) [Ratio] 0 % 0-5 [facility] MCHC Auto (RBC) [Mass/Vol]Or dered By: Dr. Chris on 07-15-2022 MCHC (RBC) [Mass/Vol] 33.3 g/dL 32-36 [facility] No Panel InformationOrdered By: Dr. Chris on 07-15-2022 Estimated GFR (MDRD) Amer 73 mL/min >60 [facility] Comment on above: GFR Calc Estimated GFR (MDRD) Non-Af Amer 60 mL/min >60 [facility] Comment on above: Non- GFR Calc Platelets bldOrdered By: Dr. Chris on 07-15-2022 Platelets (Bld) [#/Vol] 402 10*3/uL 150-450 [facility] Serum or plasma albumin tara urement (mass/volume)Ordered By: Dr. Chris on 07-15-2022 Albumin [Mass/Vol] 3.2 g/dL 3.2-5.0 [facility] Serum or plasma albumin/glob ulin mass ratioOrdered By: Dr. Chris on 07-15-2022 Albumin/Globulin [Mass ratio] 0.8 {ratio} 0.9-2.4 [facility] Serum or plasma calcium tara urement (mass/volume)Ordered By: Dr. Chris on 07-15-2022 Calcium [Mass/Vol] 8.4 mg/dL 8.5-10.1 [facility] Serum or plasma creatinine m easurement (mass/volume)Ordered By: Dr. Chris on 07-15-2022 Creatinine [Mass/Vol] 1.05 mg/dL 0.55-1.02 [facility] Comment on above: The validity of the calculated GFR & GFRAA in patients over 70 years has not been determined. Clinical correlation is essential. Serum or plasma urea nitroge n measurement (mass/volume)Ordered By: Dr. Chris on 07-15-2022 Urea nitrogen [Mass/Vol] 23 mg/dL 7-18 [facility] Thin prep Papanicolaou smear with manual screeningOrdered By: Dr. Chris on 07-15-2022 Thin prep Papanicolaou smear with manual screening 32 U/L 15-37 [facility] Thin prep Papanicolaou smear with manual screening 8 5-15 [facility] Laboratory - Microbiology an d Antimicrobial susceptibilityOrdered By: Dr. Chris on 07-13-2022 SARS-CoV-2 (COVID-19) RNA GUERITA+probe Ql (Unsp spec) Not detected Not Detect [facility] Comment on above: Normal Reference Ran ge: Not DetectedMethod:(RT-PCR) real-time reverse transcriptase PCRLuminex RE Instrument*The Food and Drug Administration (FDA) has issued an Emergency Use Authorization (EAU) for the RE SARS-CoV-2 Assay for the rapid detection of the virus that causes COVID-19. This test has been validated, but the FDAs independent review of this validation is pending.*Negative results do not preclude infection and should not be used as the sole basis for treatment or patient management. Optimum specimen types and timing for peak viral levels during infections caused by SARS-CoV-2 have not been determined. Collection of multiple specimens from the same patient may be necessary to detect the virus. The possibility of a false negative result should be considered if the patient has clinical presentation or has had recent exposure. No Panel InformationOrdered By: Dr. Chris on 07-13-2022 Influenza Types A,B Direct FA (VICKIE) [facility] RSV Ag EIAOrdered By: Dr. Julia jennings on 07-13-2022 RSV Ag Immune stain Ql (Tiss) [facility] URINE DRUG SCREENon 06-23-20 22 AMPHETAMINE/ECSTASY Negative [facility] Comment on above: Performed By: #### B MP #### [address] [address] [place] [address] BARBITURATE Negative [facility] Comment on above: Performed By: #### B MP #### [address] [address] [place] [address] BENZODIAZEPINE Negative [facility] Comment on above: Performed By: #### B MP #### [address] [address] [place] [address] COCAINE METABOLITES Negative [facility] Comment on above: Performed By: #### B MP #### [facility] [place] [address] [place] [address] METHADONE Negative [facility] Comment on above: Performed By: #### B MP #### [facility] [address] [address] [place] [address] OPIATE Negative [facility] Comment on above: Performed By: #### B MP #### [address] [address] [place] [address] OXYCODONE [facility] Comment on above: Result Comment: NEGA TIVE Performed at [address] [address] Performed By: #### B MP #### [address] [place] [address] PCP Negative [facility] Comment on above: Performed By: #### B MP #### [facility] [address] [address] THC/CANNABINOIDS Negative [facility] Comment on above: Performed By: #### B MP #### [facility] [address] [address] COMMENT [facility] Comment on above: Result Comment: Thes [...] Performed By: #### B MP #### [address] [address] Laboratory - Chemistry and C hemistry - challengeon 06-18-2022 Free T4 [Mass/Vol] 1.63 ng/dL 0.76-1.46 [facility] Work Phone: No Panel Informationon 06-18 Thyroid Stimulating Hormone (TSH) 0.02 uIU/mL 0.358-3.74 [facility] Work Phone: Absolute lymphocyte counton 04-27-2022 Lymphocytes Auto (Unsp spec) [#/Vol] 2.86 10*3/uL 0.83-4.51 [facility] Work Phone: Basophil percentageon 2021 Basophils/100 WBC (Bld) 0.5 % 0-1 [facility] Work Phone: Bilirubin [Mass/Vol] 0.50 mg/dL 0.20-1.00 [facility] Work Phone: Comment on above: For patients on eltr ombopag therapy, use of Dimension [place] TBIL is not recommended. Chloride [Moles/Vol] 105 mmol/L 98-107 [facility] Work Phone: Eosinophils/100 WBC (Bld) 1.2 % 0-5 [facility] Work Phone: Glucose [Mass/Vol] 91 mg/dL 74-106 [facility] Work Phone: Neutrophils (Bld) [#/Vol] 7.1 10*3/uL 2.0-7.7 [facility] Work Phone: Neutrophils/100 WBC (Bld) 65.0 % 47-70 [facility] Work Phone: Potassium [Moles/Vol] 3.9 mmol/L 3.5-5.1 [facility] Work Phone: Protein [Mass/Vol] 7.3 g/dL 6.4-8.2 [facility] Work Phone: Sodium [Moles/Vol] 137 mmol/L 136-145 [facility] Work Phone: WBC (Bld) [#/Vol] 10.9 10*3/uL 4.4-11.0 [facility] Work Phone: Blood erythrocytes count (nu mber/volume)on 04-27-2022 RBC (Bld) [#/Vol] 4.28 10*6/uL 4.2-5.4 [facility] Work Phone: Blood hemoglobin measurement (mass/volume)on 04-27-2022 Hemoglobin (Bld) [Mass/Vol] 12.6 g/dL 12.0-15.0 [facility] Work Phone: Blood lymphocytes/100 leukoc yteson 04-27-2022 Lymphocytes/100 WBC (Bld) 26.2 % 19-41 [facility] Work Phone: Blood monocytes/100 leukocyt eson 04-27-2022 Monocytes/100 WBC (Bld) 6.6 % 0-10 [facility] Work Phone: Blood platelet mean volumeon 04-27-2022 Platelet mean volume (Bld) [Entitic vol] 10.4 fL 6.2-12.0 [facility] Work Phone: Determination of erythrocyte mean corpuscular volume (MCV)on 04-27-2022 MCV (RBC) [Entitic vol] 92.3 fL 81-99 [facility] Work Phone: Hematocrit Auto (Bld) [Volum e fraction]on 04-27-2022 Hematocrit (Bld) [Volume fraction] 39.5 % 37-47 [facility] Work Phone: Laboratory - Chemistry and C hemistry - challengeon 04-27-2022 ALP [Catalytic activity/Vol] 58 U/L 45-117 [facility] Work Phone: ALT [Catalytic activity/Vol] 43 U/L 13-56 [facility] Work Phone: CO2 [Moles/Vol] 24.0 mmol/L 21.0-32.0 [facility] Work Phone: Globulin (S) [Mass/Vol] 4.2 g/dL 2.2-4.2 [facility] Work Phone: Urea nitrogen/Creatinine [Mass ratio] 14.0 mg/mg 10-20 [facility] Work Phone: Laboratory - Hematology and Cell countson 04-27-2022 Erythrocyte distribution width (RBC) [Entitic vol] 42.4 fL 35.1-43.9 [facility] Work Phone: Erythrocyte distribution width (RBC) [Ratio] 12.6 % 11.6-14.6 [facility] Work Phone: Immature granulocytes/100 WBC (Bld) 0.500 % 0.0-0.9 [facility] Work Phone: Comment on above: IG% - Immature Granu locytes (promyelocytes, myelocytes and metamyelocytes) > 1% indicates that a LEFT SHIFT is Present. MCH (RBC) [Entitic mass] 29.4 pg 27.0-32.0 [facility] Work Phone: Nucleated RBC/100 WBC (Bld) [Ratio] 0 % 0-5 [facility] Work Phone: MCHC Auto (RBC) [Mass/Vol]on 04-27-2022 MCHC (RBC) [Mass/Vol] 31.9 g/dL 32-36 [facility] Work Phone: No Panel Informationon 04-27 Estimated GFR (MDRD) Amer 92 mL/min >60 [facility] Work Phone: Comment on above: GFR Calc Estimated GFR (MDRD) Non-Af Amer 76 mL/min >60 [facility] Work Phone: Comment on above: Non- GFR Calc Thyroid Stimulating Hormone (TSH) 0.03 uIU/mL 0.358-3.74 [facility] Work Phone: Vitamin D 25-Hydroxy 59.3 ng/mL [facility] Work Phone: Comment on above: Vitamin D 25(OH) Sta tus Range Deficiency <20 ng/mL (50nmol/L) Insufficiency 20 - 30 ng/mL (50 - 75 nmol/L) Sufficiency 30 - 100 ng/mL (75 - 250 nmol/L) Toxicity >100 ng/mL (>250 nmol/L) Platelets bldon 04-27-2022 Platelets (Bld) [#/Vol] 363 10*3/uL 150-450 [facility] Work Phone: Serum or plasma albumin tara urement (mass/volume)on 04-27-2022 Albumin [Mass/Vol] 3.1 g/dL 3.2-5.0 [facility] Work Phone: Serum or plasma albumin/glob ulin mass ratioon 04-27-2022 Albumin/Globulin [Mass ratio] 0.7 {ratio} 0.9-2.4 [facility] Work Phone: Serum or plasma calcium tara urement (mass/volume)on 04-27-2022 Calcium [Mass/Vol] 8.9 mg/dL 8.5-10.1 [facility] Work Phone: Serum or plasma creatinine m easurement (mass/volume)on 04-27-2022 Creatinine [Mass/Vol] 0.86 mg/dL 0.55-1.02 [facility] Phone: Comment on above: The validity of the calculated GFR & GFRAA in patients over 70 years has not been determined. Clinical correlation is essential. Serum or plasma urea nitroge n measurement (mass/volume)on 04-27-2022 Urea nitrogen [Mass/Vol] 12 mg/dL 7-18 [facility] Work Phone: Serum or plasma uric acid me asurement (mass/volume)on 04-27-2022 Urate [Mass/Vol] 7.1 mg/dL 2.6-6.0 [facility] Work Phone: Comment on above: The drugs N-Acetylcy steine and Metamizole may falsely depress this assay. Thin prep Papanicolaou smear with manual screeningon 04-27-2022 Thin prep Papanicolaou smear with manual screening 39 U/L 15-37 [facility] Work Phone: Thin prep Papanicolaou smear with manual screening 8 5-15 [facility] Work Phone: Basophil percentageon 2021 Basophil percentage 3.4 mg/dL 2.5-4.9 [facility] Work Phone: Chloride [Moles/Vol] 107 mmol/L 98-107 [facility] Work Phone: Glucose [Mass/Vol] 98 mg/dL 74-106 [facility] Work Phone: Potassium [Moles/Vol] 4.5 mmol/L 3.5-5.1 [facility] Work Phone: Sodium [Moles/Vol] 139 mmol/L 136-145 [facility] Work Phone: Laboratory - Chemistry and C hemistry - challengeon 03-09-2022 CO2 [Moles/Vol] 29.0 mmol/L 21.0-32.0 [facility] Work Phone: Free T4 [Mass/Vol] 2.16 ng/dL 0.76-1.46 [facility] Work Phone: Urea nitrogen/Creatinine [Mass ratio] 12.3 mg/mg 10-20 [facility] Work Phone: No Panel Informationon 03-09 Estimated GFR (MDRD) Amer 72 mL/min >60 [facility] Work Phone: Comment on above: GFR Calc Estimated GFR (MDRD) Non-Af Amer 60 mL/min >60 [facility] Work Phone: Comment on above: Non- GFR Calc Thyroid Stimulating Hormone (TSH) 0.01 uIU/mL 0.358-3.74 [facility] Work Phone: Serum or plasma albumin tara urement (mass/volume)on 03-09-2022 Albumin [Mass/Vol] 3.3 g/dL 3.2-5.0 [facility] Work Phone: Serum or plasma calcium tara urement (mass/volume)on 03-09-2022 Calcium [Mass/Vol] 8.9 mg/dL 8.5-10.1 [facility] Work Phone: Serum or plasma creatinine m easurement (mass/volume)on 03-09-2022 Creatinine [Mass/Vol] 1.06 mg/dL 0.55-1.02 [facility] Work Phone: Comment on above: The validity of the calculated GFR & GFRAA in patients over 70 years has not been determined. Clinical correlation is essential. Serum or plasma urea nitroge n measurement (mass/volume)on 03-09-2022 Urea nitrogen [Mass/Vol] 13 mg/dL 7-18 [facility] Work Phone: Vitamin B1,Whole Bldon 02-08 Vitamin B1,Whole Bld 219.1 [facility] Comment on above: Result Comment: Refe [...] developed and its performance characteristics determined by [facility] Pathology and Laboratory Medicine [place] ([facility]). It has not been cleared or approved by the FDA. -[facility] is regulated under CLIA as qualified to perform high-complexity testing. This test is used for clinical purposes. It should not be regarded as investigational or for research. Performed By: [facility] [place] [address] Aviation Neuropsychologist: Idris Goode III, MD CLIA#: [id number] Phone#: VITAMIN Aon 02-05-2022 VITAMIN A RESULT 0.43 Normal [facility] Comment on above: Result Comment: Refe rence range: 0.30 to 1.20 Unit: mg/L This test was developed and its performance characteristics determined by [facility] [place] ([facility]). It has not been cleared or approved by the FDA. [facility] is regulated under CLIA as qualified to perform high-complexity testing. This test is used for clinical purposes. It should not be regarded as investigational or for research. Performed By: [facility] [address] [employer] [place] [id number] Aviation Neuropsychologist: Idris Goode III, MD CLIA#: [id number] Phone#: VITAMIN Blaine 02-05-2022 Vitamin E-alpha 10.3 Normal [facility] Comment on above: Result Comment: Refe rence range: 6.0 to 23.0 Unit: mg/L Vitamin E-gamma 2.3 Normal [facility] Comment on above: Result Comment: Refe rence range: 0.3 to 3.2 Unit: mg/L This test was developed and its performance characteristics determined by [facility] and Laboratory Medicine [place] ([facility]). It has not been cleared or approved by the FDA. [facility] is regulated under CLIA as qualified to perform high-complexity testing. This test is used for clinical purposes. It should not be regarded as investigational or for research. Performed By: [place] [address] Aviation Neuropsychologist: Idris Goode III, MD CLIA#: [id number] Phone#: ZINC LEVELon 02-04-2022 ZINC 61 Normal [facility] Comment on above: Result Comment: Refe rence range: 60 to 120 Unit: ug/dL This test was developed and its performance characteristics determined by [facility] and Laboratory Medicine [place] ([facility]). It has not been cleared or approved by the FDA. [facility] is regulated under CLIA as qualified to perform high-complexity testing. This test is used for clinical purposes. It should not be regarded as investigational or for research. Performed By: [place] [address] Aviation Neuropsychologist: Idris Goode III, MD CLIA#: [id number] Phone#: CBC with Diffon 02-02-2022 AB IMMATURE NEUT 0.10 K/UL Normal 0.0-0.1 [facility] Comment on above: Performed By: #### B MP #### [address] [address] ABS BASO 0.08 K/UL Normal 0.00-0.22 [facility] Comment on above: Performed By: #### B MP #### [facility] [address] [address] ABS EOS 0.05 K/UL Normal 0-0.45 [facility] Comment on above: Performed By: #### B MP #### [address] [address] [address] [place] [address] ABS NEUTROPHILS 8.39 K/UL High 1.8-7.7 [facility] Comment on above: Performed By: #### B MP #### [facility] [address] [address] [place] [address] ABS.NEUT.CALCULATED 8.39 K/UL Normal [facility] Comment on above: Result Comment: Perf ormed at [address] [address] [place] [address] Performed By: #### B MP #### [address] [address] [place] [address] Basophils/100 WBC (Bld) 0.60 % Normal 0-1 [facility] Comment on above: Performed By: #### B MP #### [address] [address] [place] [address] DIFF TYPE AUTO DIFF Normal [facility] Comment on above: Performed By: #### B MP #### [address] [address] [place] [address] Eosinophils/100 WBC (Bld) 0.40 % Normal 0-3 [facility] Comment on above: Performed By: #### B MP #### [address] [address] [place] [address] Erythrocyte distribution width (RBC) [Ratio] 12.1 % Normal 11.7-15.0 [facility] Comment on above: Performed By: #### B MP #### [address] [address] [place] [address] Hematocrit (Bld) [Volume fraction] 42.3 % Normal 36-44 [facility] Comment on above: Performed By: #### B MP #### [address] [address] [place] [address] Hemoglobin (Bld) [Mass/Vol] 13.8 g/dL Normal 12.0-15.0 [facility] Comment on above: Performed By: #### B MP #### [address] [address] [place] [address] Lymphocytes (Bld) [#/Vol] 3.72 10*3/uL High 1.2-3.2 [facility] Comment on above: Performed By: #### B MP #### [facility] [place] [address] [place] [address] Lymphocytes/100 WBC (Bld) 28.60 % Normal 20-40 [facility] Comment on above: Performed By: #### B MP #### [facility] [address] [address] [place] [address] MCH (RBC) [Entitic mass] 30.6 pg Normal 26-34 [facility] Comment on above: Performed By: #### B MP #### [facility] [address] [place] [address] MCHC 32.6 % Normal 31-37 [facility] Comment on above: Performed By: #### B MP #### [facility] [address] [address] [place] [address] MCV (RBC) [Entitic vol] 93.8 fL Normal 80-100 [facility] Comment on above: Performed By: #### B MP #### [address] [address] [place] [address] MEAN PLT VOL 10.0 CU Normal 7.0-12.6 [facility] Comment on above: Performed By: #### B MP #### [place] [place] [address] Monocytes (Bld) [#/Vol] 0.68 10*3/uL Normal 0-0.8 [facility] Comment on above: Performed By: #### B MP #### [facility] [address] [place] [address] Monocytes/100 WBC (Bld) 5.20 % Normal 0-8 [facility] Comment on above: Performed By: #### B MP #### [facility] [place] [address] [place] [address] Neutrophils/100 WBC (Bld) 0.80 % Normal 0.0-1.0 [facility] Comment on above: Performed By: #### B MP #### [place] [place] [address] Neutrophils/100 WBC (Bld) 64.40 % Normal 50-70 [facility] Comment on above: Performed By: #### B MP #### [facility] [address] [address] NRBC'S 0 /100 WBC Normal 0 [facility] Comment on above: Performed By: #### B MP #### [facility] [address] [address] Platelets (Bld) [#/Vol] 418 10*3/uL Normal 150-450 [facility] Other Comment on above: Performed By: #### B MP #### [facility] [address] [address] RBC (Bld) [#/Vol] 4.51 10*6/uL Normal 4.0-4.9 [facility] Comment on above: Performed By: #### B MP #### [address] [address] RDW-SD 42.2 FL Normal 37.0-54.0 [facility] Comment on above: Performed By: #### B MP #### [address] [address] WBC (Bld) [#/Vol] 13.0 10*3/uL High 4.5-11.0 [facility] Comment on above: Performed By: #### B MP #### [address] [address] Differential cell count method Nom (Bld) AUTO DIFF [facility] Other Erythrocyte distribution width (RBC) [Entitic vol] 42.2000 fL 37.0-54.0 FL [facility] Other Erythrocyte distribution width (RBC) [Ratio] 12.100 % 11.7-15.0 % [facility] Other Hematocrit (Bld) [Volume fraction] 42.300 % 36-44 % [facility] Other Hemoglobin (Bld) [Mass/Vol] 13.4790350 g/dL 12.0-15.0 GM/DL [facility] Other MCH (RBC) [Entitic mass] 30.6000 pg 26-34 PG [facility] Other MCHC (RBC) [Mass/Vol] 32.6 % 31-37 % [facility]. Other MCV (RBC) [Entitic vol] 93.8000 fL 80-100 FL [facility] Other Nucleated RBC/100 WBC (Bld) [Ratio] 0 /100 WBC 0 /100 WBC [facility] Other Platelet mean volume (Bld) [Entitic vol] 10.0 CU 7.0-12.6 CU [facility] Other RBC (Bld) [#/Vol] 4.6486836 10*6/uL 4.0-4.9 M/U L [facility] Other WBC (Bld) [#/Vol] 13.894175 10*3/uL High 4.5-1 1.0 K/UL [facility] Other CBC with Diff 8.39 K/UL [facility] Other CBC with Diff Performed at [facility] [id number] [place] [address] [facility] Other COMPREHENSIVE METABOLIC PANE Esa 02-02-2022 Albumin [Mass/Vol] 3.9 g/dL Normal 3.5-5.0 [facility] Comment on above: Performed By: #### B 12 #### Main Laboratory [address] [address] Albumin/Globulin [Mass ratio] 1.0 {ratio} Low 1.5-3.0 [facility] Comment on above: Performed By: #### B 12 #### [facility] [address] [address] [place] [address] ALP [Catalytic activity/Vol] 76 U/L Normal 35-125 [facility] Comment on above: Performed By: #### B 12 #### [facility] [address] [place] [address] Bilirubin [Mass/Vol] 0.7 mg/dL Normal 0.1-1.2 [facility] Comment on above: Performed By: #### B 12 #### [facility] [address] [address] Creatinine [Mass/Vol] 1.0 mg/dL Normal 0.4-1.6 [facility] Comment on above: Performed By: #### B 12 #### [address] [address] ESTIMATED GFR 71 mL/min/1.73 m2 Normal [facility] Comment on above: Result Comment: CALCULATIONS OF ESTIMATED GFR ARE PERFORMED USING THE 2020 CKD-EPI STUDY REFIT EQUATION WITHOUT THE RACE VARIABLE FOR THE IDMS-TRACEABLE CREATININE METHODS. https://jasn.asnjournals.org/content//ASN.10269 [address] Performed at [address] [place] [address] Performed By: #### B 12 #### [address] [address] Globulin (S) [Mass/Vol] 3.9 g/dL High 1.9-3.7 [facility] Comment on above: Performed By: #### B 12 #### [facility] [address] [place] [address] Potassium [Moles/Vol] 4.6 mmol/L Normal 3.4-5.1 [facility] Comment on above: Performed By: #### B 12 #### [facility] [address] [address] Protein [Mass/Vol] 7.8 g/dL Normal 5.9-7.9 [facility] Comment on above: Performed By: #### B 12 #### [facility] [address] [address] Urea nitrogen/Creatinine [Mass ratio] 13.0 mg/mg Normal 8-21 [facility] Comment on above: Performed By: #### B 12 #### [facility] [address] [address] FOLIC ACIDon 02-02-2022 FOLIC ACID 12.5 NG/ML Normal 4.2-19.9 [facility] Comment on above: Result Comment: Defi cient=<2.1 ng/ml Indeterminate=2.2-4.1 ng/ml Performed at [address] [address] Performed By: #### F A #### [address] [address] Ferritinon 02-02-2022 Ferritin [Mass/Vol] 373 ng/mL High 13-150 [facility] Other Comment on above: Result Comment: Perf ormed at [address] [address] Performed By: #### B 12 #### [address] [address] Ferritin [Mass/Vol] Performed at [address] [place] [address] [facility] Other Folic Acid (Folate)on 2021 Folate [Mass/Vol] 12.9720113 ng/mL 4.2-19 .9 NG/ML [facility] Other Folate [Mass/Vol] ng/mL [facility] Other Folate [Mass/Vol] Indeterminate=2.2-4. 1 ng/ml [facility] Other Folate [Mass/Vol] Performed at [address] [place] [address] [facility] Other HEMOGLOBIN A1con 02-02-2022 HbA1c (Bld) [Mass fraction] 5.7 % Normal 4.0-6.0 [facility] Comment on above: Result Comment: Hemo globin [...] mg/dl 10% ............................... 240 mg/dl Performed at [address] [address] Performed By: #### B 12 #### [address] [address] Hemoglobin A1Con 02-02-2022 HbA1c (Bld) [Mass fraction] 5.700 % 4.0-6.0 % [facility] Other HbA1c (Bld) [Mass fraction] Hemoglobin A1C levels are related to mean blood glucose during the [facility] Other HbA1c (Bld) [Mass fraction] preceding 2-3 months. The relationship table below may be used as a [facility]. Other HbA1c (Bld) [Mass fraction] general guide. Each 1% increase in HGB A1C is a reflection of an [facility] [employer] [facility] Other HbA1c (Bld) [Mass fraction] increase in mean glucose of approximately 30 mg/dl. [facility] [employer] [facility] Other HbA1c (Bld) [Mass fraction] Reference: Diabetes Care, volume 29, supplement 1 2005 [facility] Other HbA1c (Bld) [Mass fraction] [facility] Other HbA1c (Bld) [Mass fraction] HGB A1C ................. Approx. Mean Glucose [facility] Other HbA1c (Bld) [Mass fraction] ___ [place] [facility] [employer] Other HbA1c (Bld) [Mass fraction] 6% ...................... ......... 120 mg/dl [facility] [employer] [facility] Other HbA1c (Bld) [Mass fraction] 7% ...................... ......... 150 mg/dl [facility] [employer] Other HbA1c (Bld) [Mass fraction] 8% ...................... ......... 180 mg/dl [facility]. Other HbA1c (Bld) [Mass fraction] 9% ...................... ......... 210 mg/dl [facility] Other HbA1c (Bld) [Mass fraction] 10% ...................... ......... 240 mg/dl [facility] Other HbA1c (Bld) [Mass fraction] Performed at [address] Other IRON PANELon 02-02-2022 TOT.IRON BIND.CAP. 248 UG/DL Normal 228-428 [facility] Comment on above: Performed By: #### B 12 #### [place] [address] TRANSFERRIN % SAT. 20.2 % Normal 12-50 [facility] Comment on above: Result Comment: Perf ormed at [place] [address] Performed By: #### B 12 #### [place] [address] LIPID PANELon 02-02-2022 CHOL HDL RATIO 4.8 RATIO Normal [facility] Comment on above: Result Comment: Acco rding to the [place] [employer], the goal is to maintain the total cholesterol/HDL ratio at 5-to-1 or lower with an optimum ratio of 3.5-to-1. Performed at [place] [address] Performed By: #### B MP #### [place] [id number] SERUM CLARITY CLEAR Normal [facility] Comment on above: Performed By: #### B MP #### [address] [place] [address] TRIGLYCERIDE G.B. 166 MG/DL High 40-150 [facility] Comment on above: Performed By: #### B MP #### [place] [address] [place] [address] PT. PREPARATION FASTING [facility] Comment on above: Performed By: #### B MP #### [place] [address] [place] [address] SERUM COLOR YELLOW [facility] Comment on above: Performed By: #### B MP #### [place] [address] [place] [address] PT AND PTTon 02-02-2022 ANTICOAGULANT INFORMATION NOT REPORTED TO LABORATORY [facility] Comment on above: Performed By: #### B 12 #### [place] [address] [place] [address] aPTT Coag (Bld) [Time] 27.2 s Normal 22.0-32.5 [facility] Comment on above: Result Comment: Perf ormed at [place] [address] [place] [address] Performed By: #### B 12 #### [place] [address] [place] [address] PT Coag (PPP) [Time] 11.1 s Normal 9.3-12.7 [facility] Comment on above: Performed By: #### B 12 #### [place] [address] [place] [address] PT and PTTon 02-02-2022 INR Coag (PPP) [Relative time] 1.0 {INR} Normal 0.86-1.16 [facility] Other Comment on above: Result Comment: INR Theraputic Range: 2.0-3.5 Performed By: #### B 12 #### [place] [address] [place] [address] aPTT Coag (PPP) [Time] 27.04418 s 22.0- 32.5 SEC [facility] Other aPTT Coag (PPP) [Time] Performed at [address] [address] [facility] Other INR Coag (PPP) [Relative time] INR Theraputic Range: 2.0-3.5 [facility] Other PT Coag (PPP) [Time] 11.47350 s 9.3-12.7 SEC [facility] Other PT and PTT INFORMATION NOT REPORTED TO LABORATORY [facility] Other PTH,INTACT BATTERYon 022 PTH,INTACT 27 PG/ML Normal 15-65 [facility] Comment on above: Performed By: #### P THI #### [address] [address] Calcium [Mass/Vol] 9.2 mg/dL Normal 8.5-10.4 [facility] Comment on above: Performed By: #### P THI #### [address] [address] Performed By: #### B 12 #### [address] [address] Phosphate [Mass/Vol] 3.2 mg/dL Normal 2.5-4.5 [facility] Comment on above: Result Comment: Perf ormed at [address] [address] Performed By: #### P THI #### [address] [address] Panel, Comprehensive Metabol icon 02-02-2022 ALT [Catalytic activity/Vol] 49 U/L High 5-40 [facility] Other Comment on above: Performed By: #### B 12 #### [address] [address] Anion gap [Moles/Vol] 14 mmol/L Normal 0-19 [facility] Other Comment on above: Performed By: #### B 12 #### [place] [address] [place] [address] AST [Catalytic activity/Vol] 46 U/L High 5-40 [facility] Other Comment on above: Performed By: #### B 12 #### [place] [address] [place] [address] Chloride [Moles/Vol] 99 mmol/L Normal 97-107 [facility] Other Comment on above: Performed By: #### B 12 #### [place] [address] [place] [address] CO2 [Moles/Vol] 24 mmol/L Normal 24-31 [facility] Other Comment on above: Performed By: #### B 12 #### [address] [address] Glucose [Mass/Vol] 84 mg/dL Normal 65-99 [facility] Other Comment on above: Performed By: #### B 12 #### [place] [address] [place] [address] Sodium [Moles/Vol] 136 mmol/L Normal 133-145 [facility] Other Comment on above: Performed By: #### B 12 #### [place] [address] [place] [address] Urea nitrogen [Mass/Vol] 13 mg/dL Normal 8-25 [facility] Other Comment on above: Performed By: #### B 12 #### [place] [address] [place] [address] Albumin/Globulin [Mass ratio] 1.9116051 {ratio} Low 1.5-3.0 RATIO [facility] Other ALP (Bld) [Catalytic activity/Vol] 76 U/L 35-125 U/L [facility] Other Bilirubin [Mass/Vol] 0.6057739 mg/dL 0.1- 1.2 MG/DL [facility] Other Calcium [Mass/Vol] 9.1368377 mg/dL 8.5-10 .4 MG/DL [facility] Other Creatinine [Mass/Vol] 1.5400611 mg/dL 0.4 -1.6 MG/DL [facility] Other GFR/1.73 sq M.predicted MDRD (S/P/Bld) [Vol rate/Area] 71.10705088081169267 mL/min/{1.73_m2} [facility] Other GFR/1.73 sq M.predicted MDRD (S/P/Bld) [Vol rate/Area] [facility] Other GFR/1.73 sq M.predicted MDRD (S/P/Bld) [Vol rate/Area] CALCULATIONS OF ESTIMATED GFR ARE PERFORMED USING THE 2020 CKD-EPI [facility] Other GFR/1.73 sq M.predicted MDRD (S/P/Bld) [Vol rate/Area] STUDY REFIT EQUATION WITHOUT THE RACE VARIABLE FOR THE IDMS-TRACEABLE [facility] Other GFR/1.73 sq M.predicted MDRD (S/P/Bld) [Vol rate/Area] CREATININE METHODS. [facility] Other GFR/1.73 sq M.predicted MDRD (S/P/Bld) [Vol rate/Area] https://pritesh.alvaro .org/content//[email or web address] [facility] Other GFR/1.73 sq M.predicted MDRD (S/P/Bld) [Vol rate/Area] Performed at [address] Other Globulin (S) [Mass/Vol] 3.322321 g/dL High 1.9-3.7 G/DL [facility] Other Potassium [Moles/Vol] 4.23949967 mmol/L 3 .4-5.1 MMOL/L [facility] Other Protein [Mass/Vol] 7.101775 g/dL 5.9-7.9 G/DL [facility] Other Protein [Mass/Vol] 3.7601744 g/dL 3.5-5.0 GM/DL [facility] Other Urea nitrogen/Creatinine [Mass ratio] 13.1312703 mg/mg 8-21 RATIO [facility] Other Panel, Ironon 02-02-2022 Iron [Mass/Vol] 50 ug/dL Normal 30-160 [facility] Other Comment on above: Performed By: #### B 12 #### [place] [address] Iron binding capacity [Mass/Vol] 248 UG/DL 228-428 UG/DL [facility] Other Iron saturation [Mass fraction] 20.2 % 12-50 % [facility] Other Iron saturation [Mass fraction] Performed at [address] [address] [facility] Other Panel, Lipidon 02-02-2022 Cholesterol [Mass/Vol] 176 mg/dL Normal 133-200 [facility] Other Comment on above: Performed By: #### B MP #### [address] [address] Cholesterol in HDL [Mass/Vol] 37 mg/dL Low >50 [facility] Other Comment on above: Result Comment: [place] onmd Cholesterol Education Program(NCFP)guidelines: <40 mg/dl:Low HDL-cholesterol(major risk factor for CHD) >60 mg/dl:High HDL-cholesterol(negativerisk factor for CHD) HDL-cholesterol is affected by a number of factors,e.g.,smoking, exercise,hormones,sex and age. Performed By: #### B MP #### [address] [address] Cholesterol in LDL [Mass/Vol] 106 mg/dL Normal 65-130 [facility] Other Comment on above: Performed By: #### B MP #### [address] [address] Appearance (P) CLEAR [facility] Other Cholesterol in HDL [Mass/Vol] National Cholesterol Education Program(NCFP)guideline s: [facility] Other Cholesterol in HDL [Mass/Vol] <40 mg/dl:Low HDL-cholesterol(major risk factor for CHD) [facility] Other Cholesterol in HDL [Mass/Vol] >60 mg/dl:High HDL-cholesterol(negat iverisk factor for CHD) [facility] Other Cholesterol in HDL [Mass/Vol] HDL-cholesterol is affected by a number of factors,e.g.,smoking, [facility] Other Cholesterol in HDL [Mass/Vol] exercise,hormones,sex and age. [facility] Other Cholesterol.total/Chol esterol in HDL [Mass ratio] 4.7259318 {ratio} [facility] Other Cholesterol.total/Chol esterol in HDL [Mass ratio] According to the [place] [employer], the goal is to maintain [facility] Other Cholesterol.total/Chol esterol in HDL [Mass ratio] the total cholesterol/HDL ratio at 5-to-1 or lower with an optimum [facility] Other Cholesterol.total/Chol esterol in HDL [Mass ratio] ratio of 3.5-to-1. [facility] Other Cholesterol.total/Chol esterol in HDL [Mass ratio] Performed at [address] Other Color (Spun body fld) YELLOW [facility] Other Triglyceride [Mass/Vol] 166 mg/dL High 40-150 MG/DL [facility] Other Panel, Lipid FASTING [facility] Other TSHon 02-02-2022 TSH 0.34 MIU/L Normal 0.27-4.20 [facility] Comment on above: Result Comment: Perf ormed at [place] [address] Performed By: #### B 12 #### [place] [address] TSH with Reflex to T4 Freeon 02-02-2022 TSH Qn 0.34 MIU/L 0.27-4.20 MIU/L [facility] Other TSH Qn Performed at [address] [address] [facility] Other VITAMIN D 25 HYDROXYon 02-02 VITAMIN D 25 HYDROXY 28 ng/mL Low 31-100 [facility] Comment on above: Result Comment: Perf ormed at [address] [address] Performed By: #### B 12 #### Main Laboratory [address] [address] VITAMIN Blaine 02-02-2022 VITAMIN E 10.3 [facility]. Other VITAMIN E Reference range: 6.0 to 23.0 [facility] Other VITAMIN E Unit: mg/L [facility] Other VITAMIN E 2.3 [facility]. Other VITAMIN E Reference range: 0.3 to 3.2 [facility]. Other Vitamin Aon 02-02-2022 Retinol [Mass/Vol] 0.43 [facility] Other Retinol [Mass/Vol] Reference range: 0.3 0 to 1.20 [facility] Other Retinol [Mass/Vol] Unit: mg/L [facility]. Other Retinol [Mass/Vol] [facility]. Other Retinol [Mass/Vol] This test was developed and its performance characteristics [facility]. Other Retinol [Mass/Vol] determined by [facility]'s Mukul Celaya Pathology and [facility] Other Retinol [Mass/Vol] [facility] [place] ([facility]). It has not been cleared or [facility]. Other Retinol [Mass/Vol] approved by the FDA. [facility] is regulated under CLIA as qualified to [facility] Other Retinol [Mass/Vol] perform high-complexity testing. This test is used for clinical [facility] Other Retinol [Mass/Vol] purposes. It should not be regarded as investigational or for [facility]. Other Retinol [Mass/Vol] research. [facility] Other Retinol [Mass/Vol] Performed By: [facility] Other Retinol [Mass/Vol] [facility] Other Retinol [Mass/Vol] [address] [facility] Other Retinol [Mass/Vol] [place] [address] [facility] Other Retinol [Mass/Vol] Aviation Neuropsychologist: Idris Goode III, MD [facility] Other Retinol [Mass/Vol] CLIA#: [id number] [facility]. Other Retinol [Mass/Vol] Phone#: [facility] Other Vitamin B12 (Performed at [facility])on 02-02-2022 Cobalamin (Vitamin B12) [Mass/Vol] 547 pg/mL Normal 211-946 [facility] Other Comment on above: Result Comment: Defi cient=<174 pg/ml Jfzswukopgudh=716-903 pg/ml Performed at [facility] [place] [address] [facility] [address] Performed By: #### B 09 #### [place] [address] Cobalamin (Vitamin B12) [Mass/Vol] pg/mL [facility] Other Cobalamin (Vitamin B12) [Mass/Vol] Gslwbckhtkttt=591-540 pg/ml [facility] Other Cobalamin (Vitamin B12) [Mass/Vol] Performed at [address] Other Vitamin D 25 Hydroxy (Perfor med at [facility])on 02-02-2022 25-hydroxyvitamin D3 [Mass/Vol] 28 ng/mL Low 31-100 ng/mL [facility] Other 25-hydroxyvitamin D3 [Mass/Vol] Performed at [address] Other Zinc Levelon 02-02-2022 Zinc Level 61 [facility] Other Zinc Level Reference range: 60 to 120 [facility] Other Zinc Level Unit: ug/dL [facility] Other Zinc Level [facility] Other Zinc Level This test was developed and its performance characteristics [facility]. Other Zinc Level determined by [facility]'s Mukul Kyle Bass Pathology and [facility]. Other [employer] [facility] [place] ([facility]). It has not been cleared or [facility]. Other [employer] approved by the FDA. [facility] is regulated under CLIA as qualified to [facility] Other [employer] perform high-complexity testing. This test is used for clinical [facility]. Other [employer] purposes. It should not be regarded as investigational or for [facility]. Other [employer] research. [facility]. Other [employer] Performed By: [facility]. Other [employer] [facility]. Other [employer] [address] [facility]. Other [employer] [address] Other [employer] Aviation Neuropsychologist: Idris Goode III, MD [facility] Other [employer] CLIA#: [id number] [facility]. Other [employer] Phone#: [facility]. Other [facility] DIAG W JORDAN LTon 022 [facility] US BREAST LTD LTon 2 [facility] No Panel Informationon 01-15 Thyroid Stimulating Hormone (TSH) 0.32 uIU/mL 0.358-3.74 [facility] Work Phone: Absolute lymphocyte counton 01-14-2022 Lymphocytes Auto (Unsp spec) [#/Vol] 3.17 10*3/uL 0.83-4.51 [facility] Work Phone: Basophil percentageon 2021 Basophils/100 WBC (Bld) 0.5 % 0-1 [facility] Work Phone: Chloride [Moles/Vol] 104 mmol/L 98-107 [facility] Work Phone: Eosinophils/100 WBC (Bld) 0.9 % 0-5 [facility] Work Phone: Glucose [Mass/Vol] 133 mg/dL 74-106 [facility] Work Phone: Comment on above: Fasting Glucose resu lt greater than or equal to 126 mg/dL suggests DIABETES MELLITUS per A.D.A. criteria. Neutrophils (Bld) [#/Vol] 7.4 10*3/uL 2.0-7.7 [facility] Work Phone: Neutrophils/100 WBC (Bld) 64.8 % 47-70 [facility] Work Phone: Potassium [Moles/Vol] 3.7 mmol/L 3.5-5.1 [facility] Work Phone: Sodium [Moles/Vol] 137 mmol/L 136-145 [facility] Work Phone: WBC (Bld) [#/Vol] 11.4 10*3/uL 4.4-11.0 [facility] Work Phone: Blood erythrocytes count (nu mber/volume)on 01-14-2022 RBC (Bld) [#/Vol] 4.65 10*6/uL 4.2-5.4 [facility] Work Phone: Blood hemoglobin measurement (mass/volume)on 01-14-2022 Hemoglobin (Bld) [Mass/Vol] 14.2 g/dL 12.0-15.0 [facility] Work Phone: Blood lymphocytes/100 leukoc yteson 01-14-2022 Lymphocytes/100 WBC (Bld) 27.9 % 19-41 [facility] Work Phone: Blood monocytes/100 leukocyt eson 01-14-2022 Monocytes/100 WBC (Bld) 5.5 % 0-10 [facility] Work Phone: Blood platelet mean volumeon 01-14-2022 Platelet mean volume (Bld) [Entitic vol] 10.0 fL 6.2-12.0 [facility] Work Phone: Determination of erythrocyte mean corpuscular volume (MCV)on 01-14-2022 MCV (RBC) [Entitic vol] 94.6 fL 81-99 [facility] Work Phone: Hematocrit Auto (Bld) [Volum e fraction]on 01-14-2022 Hematocrit (Bld) [Volume fraction] 44.0 % 37-47 [facility] Work Phone: Laboratory - Chemistry and C hemistry - challengeon 01-14-2022 CO2 [Moles/Vol] 29.0 mmol/L 21.0-32.0 [facility] Work Phone: Urea nitrogen/Creatinine [Mass ratio] 14.5 mg/mg 10-20 [facility] Work Phone: Laboratory - Hematology and Cell countson 01-14-2022 Erythrocyte distribution width (RBC) [Entitic vol] 43.5 fL 35.1-43.9 [facility] Work Phone: Erythrocyte distribution width (RBC) [Ratio] 12.5 % 11.6-14.6 [facility] Work Phone: Immature granulocytes/100 WBC (Bld) 0.400 % 0.0-0.9 [facility] Work Phone: Comment on above: IG% - Immature Granu locytes (promyelocytes, myelocytes and metamyelocytes) > 1% indicates that a LEFT SHIFT is Present. MCH (RBC) [Entitic mass] 30.5 pg 27.0-32.0 [facility] Work Phone: Nucleated RBC/100 WBC (Bld) [Ratio] 0 % 0-5 [facility] Work Phone: MCHC Auto (RBC) [Mass/Vol]on 01-14-2022 MCHC (RBC) [Mass/Vol] 32.3 g/dL 32-36 [facility] Work Phone: No Panel Informationon 01-14 Estimated Creatinine Clearance Calc 46.30 ml/min [facility] Work Phone: Estimated GFR (MDRD) Amer 65 mL/min >60 [facility] Work Phone: Comment on above: GFR Calc Estimated GFR (MDRD) Non-Af Amer 53 mL/min >60 [facility] Work Phone: Comment on above: Non- GFR Calc Troponin I High Sensitivity < 3 pg/mL 3.0-54.0 [facility] Work Phone: Comment on above: Please Note: New Libby t Units and Gender Specific Reference Ranges. For more information see Policy Stat Procedure [place] High Sensitivity Troponin (TNIH) and attachments. Platelets bldon 01-14-2022 Platelets (Bld) [#/Vol] 364 10*3/uL 150-450 [facility] Work Phone: Serum or plasma calcium tara urement (mass/volume)on 01-14-2022 Calcium [Mass/Vol] 8.8 mg/dL 8.5-10.1 [facility] Work Phone: Serum or plasma creatinine m easurement (mass/volume)on 01-14-2022 Creatinine [Mass/Vol] 1.17 mg/dL 0.55-1.02 [facility] Work Phone: Comment on above: The validity of the calculated GFR & GFRAA in patients over 70 years has not been determined. Clinical correlation is essential. Serum or plasma urea nitroge n measurement (mass/volume)on 01-14-2022 Urea nitrogen [Mass/Vol] 17 mg/dL 7-18 [facility] Work Phone: Thin prep Papanicolaou smear with manual screeningon 01-14-2022 Thin prep Papanicolaou smear with manual screening 4 5-15 [facility] Work Phone: Laboratory - Chemistry and C hemistry - challengeon 12-29-2021 Free T4 [Mass/Vol] 0.91 ng/dL 0.76-1.46 [facility] Work Phone: No Panel Informationon 12-29 Thyroid Stimulating Hormone (TSH) 31.20 uIU/mL 0.358-3.74 [facility] Work Phone: Absolute lymphocyte counton 10-15-2021 Lymphocytes Auto (Unsp spec) [#/Vol] 2.82 10*3/uL 0.83-4.51 [facility] Work Phone: Basophil percentageon 2021 Basophil percentage 2.4 mg/dL 2.5-4.9 [facility] Work Phone: Basophils/100 WBC (Bld) 0.6 % 0-1 [facility] Work Phone: Bilirubin [Mass/Vol] 0.80 mg/dL 0.20-1.00 [facility] Work Phone: Comment on above: For patients on eltr ombopag therapy, use of Dimension [place] TBIL is not recommended. Chloride [Moles/Vol] 105 mmol/L 98-107 [facility] Work Phone: Cholesterol [Mass/Vol] 168 mg/dL <200 [facility] Work Phone: Comment on above: <200 mg/dL Desirable 200-240 mg/dL Borderline >240 mg/dL High Risk Eosinophils/100 WBC (Bld) 0.6 % 0-5 [facility] Work Phone: Glucose [Mass/Vol] 79 mg/dL 74-106 [facility] Work Phone: Comment on above: Please note revised GLUCOSE reference range effective 2017. Neutrophils (Bld) [#/Vol] 7.2 10*3/uL 2.0-7.7 [facility] Work Phone: Neutrophils/100 WBC (Bld) 66.3 % 47-70 [facility] Work Phone: Potassium [Moles/Vol] 3.9 mmol/L 3.5-5.1 [facility] Work Phone: Protein [Mass/Vol] 7.3 g/dL 6.4-8.2 [facility] Work Phone: Sodium [Moles/Vol] 139 mmol/L 136-145 [facility] Work Phone: Triglyceride [Mass/Vol] 184 mg/dL [facility] Work Phone: Comment on above: The drugs N-Acetylcy steine and Metamizole may falsely depress this assay.Serum Triglycerides Reference Interval Normal <150 mg/dL Borderline high 150 - 199 mg/dL High 200 - 499 mg/dL Very High > or = 500 mg/dL WBC (Bld) [#/Vol] 10.9 10*3/uL 4.4-11.0 [facility] Work Phone: Blood erythrocytes count (nu mber/volume)on 10-15-2021 RBC (Bld) [#/Vol] 4.37 10*6/uL 4.2-5.4 [facility] Work Phone: Blood hemoglobin measurement (mass/volume)on 10-15-2021 Hemoglobin (Bld) [Mass/Vol] 13.4 g/dL 12.0-15.0 [facility] Work Phone: Blood lymphocytes/100 leukoc yteson 10-15-2021 Lymphocytes/100 WBC (Bld) 25.9 % 19-41 [facility] Work Phone: Blood monocytes/100 leukocyt eson 10-15-2021 Monocytes/100 WBC (Bld) 6.0 % 0-10 [facility] Work Phone: Blood platelet mean volumeon 10-15-2021 Platelet mean volume (Bld) [Entitic vol] 9.9 fL 6.2-12.0 [facility] Work Phone: Determination of erythrocyte mean corpuscular volume (MCV)on 10-15-2021 MCV (RBC) [Entitic vol] 94.1 fL 81-99 [facility] Work Phone: Hematocrit Auto (Bld) [Volum e fraction]on 10-15-2021 Hematocrit (Bld) [Volume fraction] 41.1 % 37-47 [facility] Work Phone: Laboratory - Chemistry and C hemistry - challengeon 10-15-2021 ALP [Catalytic activity/Vol] 58 U/L 45-117 [facility] Work Phone: ALT [Catalytic activity/Vol] 28 U/L 13-56 [facility] Work Phone: CO2 [Moles/Vol] 28.0 mmol/L 21.0-32.0 [facility] Work Phone: Globulin (S) [Mass/Vol] 4.2 g/dL 2.2-4.2 [facility] Work Phone: Urea nitrogen/Creatinine [Mass ratio] 10.5 mg/mg 10-20 [facility] Work Phone: Laboratory - Hematology and Cell countson 10-15-2021 Erythrocyte distribution width (RBC) [Entitic vol] 44.0 fL 35.1-43.9 [facility] Work Phone: Erythrocyte distribution width (RBC) [Ratio] 12.7 % 11.6-14.6 [facility] Work Phone: Immature granulocytes/100 WBC (Bld) 0.600 % 0.0-0.9 [facility] Work Phone: Comment on above: IG% - Immature Granu locytes (promyelocytes, myelocytes and metamyelocytes) > 1% indicates that a LEFT SHIFT is Present. MCH (RBC) [Entitic mass] 30.7 pg 27.0-32.0 [facility] Work Phone: Nucleated RBC/100 WBC (Bld) [Ratio] 0 % 0-5 [facility] Work Phone: MCHC Auto (RBC) [Mass/Vol]on 10-15-2021 MCHC (RBC) [Mass/Vol] 32.6 g/dL 32-36 [facility] Work Phone: No Panel Informationon 10-15 Estimated GFR (MDRD) Amer 73 mL/min >60 [facility] Work Phone: Comment on above: GFR Calc Estimated GFR (MDRD) Non-Af Amer 61 mL/min >60 [facility] Work Phone: Comment on above: Non- GFR Calc Thyroid Stimulating Hormone (TSH) 35.30 uIU/mL 0.358-3.74 [facility] Work Phone: Vitamin D 25-Hydroxy 44.0 ng/mL [facility] Work Phone: Comment on above: Vitamin D 25(OH) Sta tus Range Deficiency <20 ng/mL (50nmol/L) Insufficiency 20 - 30 ng/mL (50 - 75 nmol/L) Sufficiency 30 - 100 ng/mL (75 - 250 nmol/L) Toxicity >100 ng/mL (>250 nmol/L) Platelets bldon 10-15-2021 Platelets (Bld) [#/Vol] 353 10*3/uL 150-450 [facility] Work Phone: Serum or plasma albumin tara urement (mass/volume)on 10-15-2021 Albumin [Mass/Vol] 3.1 g/dL 3.2-5.0 [facility] Work Phone: Serum or plasma albumin/glob ulin mass ratioon 10-15-2021 Albumin/Globulin [Mass ratio] 0.7 {ratio} 0.9-2.4 [facility] Work Phone: Serum or plasma calcium tara urement (mass/volume)on 10-15-2021 Calcium [Mass/Vol] 8.7 mg/dL 8.5-10.1 [facility] Work Phone: Serum or plasma cholesterol in HDL measurement (mass/volume)on 10-15-2021 Cholesterol in HDL [Mass/Vol] 38 mg/dL [facility] Work Phone: Comment on above: The drugs N-Acetylcy steine and Metamizole may falsely depress this assay. Reference Range HDL <40 mg/dL Low HDL Cholesterol HDL >or= 60 mg/dL High HDL Cholesterol Serum or plasma cholesterol in VLDL measurement (mass/volume)on 10-15-2021 Cholesterol in VLDL [Mass/Vol] 37 mg/dL 5-40 [facility] Work Phone: Serum or plasma creatinine m easurement (mass/volume)on 10-15-2021 Creatinine [Mass/Vol] 1.05 mg/dL 0.55-1.02 [facility] Work Phone: Comment on above: The validity of the calculated GFR & GFRAA in patients over 70 years has not been determined. Clinical correlation is essential. Serum or plasma low density lipoprotein (LDL) cholesterol measurement (mass/volume)on 10-15-2021 Cholesterol in LDL [Mass/Vol] 93 mg/dL 0-130 [facility] Work Phone: Serum or plasma urea nitroge n measurement (mass/volume)on 10-15-2021 Urea nitrogen [Mass/Vol] 11 mg/dL 7-18 [facility] Work Phone: Serum or plasma uric acid me asurement (mass/volume)on 10-15-2021 Urate [Mass/Vol] 8.0 mg/dL 2.6-6.0 [facility] Work Phone: Comment on above: The drugs N-Acetylcy steine and Metamizole may falsely depress this assay. Thin prep Papanicolaou smear with manual screeningon 10-15-2021 Thin prep Papanicolaou smear with manual screening 19 U/L 15-37 [facility] Work Phone: Thin prep Papanicolaou smear with manual screening 6 5-15 [facility] Work Phone: Lab Report: T4 Free Directon 02-10-2017 Thyroxine (T4) free 0.38 ng/dL Low 0.76-1.46 [facility] Work Phone: Lab Report: Thyroid Stim Hor yeimy (TSH)on 02-10-2017 Thyroid stimulating hormone (TSH) 103.00 u[iU]/mL High 0.358-3.74 [facility] Work Phone: Office Visit: thyroid consul ton 02-10-2017 Adolescent depression screening assessment Adolescent depression screening assessment Invalid Interpretation Code [facility] Work Phone: Adult depression screening assessment Adult depression screening assessment [facility] Work Phone: Adult depression screening assessment Adolescent depression screening assessment [facility] Work Phone: Dietary management education, guidance, and counseling (procedure) yes Invalid Interpretation Code [facility] Work Phone: Documentation of current medications (procedure) Done Invalid Interpretation Code [facility] Work Phone: PHQ-9 quick depression assessment panel [Reported.PHQ] Adult depression screening assessment [facility] Work Phone: Protein mass conc Done [facility] Work Phone: Tobacco smoking status CAIS Never [facility] Work Phone: Tobacco smoking status [facility] Never smoker [facility] Work Phone: Tobacco use [facility] Never smoker Invalid Interpretation Code [facility] Work Phone: Office Visit: Carly chambers [employer] ht prox LE & FB in [facility] 09-22-2016 Dietary management education, guidance, and counseling (procedure) yes Invalid Interpretation Code [facility] Work Phone: Documentation of current medications (procedure) Done Invalid Interpretation Code [facility] Work Phone: Tobacco use [facility] Never smoker Invalid Interpretation Code [facility] Work Phone: Office Visit: Carly chambers rig ht prox LE & FB in [facility] 10-16-2012 Colonoscopy (procedure) Colonoscopy (procedure) Invalid Interpretation Code [facility] Work Phone: Protein mass conc Colonoscopy (procedure) [facility] Work Phone: Lab Report: CBCDon 201 0 Erythrocytes (RBC) 4.17 10*6/uL Low 4.2-5.4 [facility] Work Phone: Hematocrit (HCT) 36.9 % Low 37-47 [facility] Work Phone: Hematocrit Volume Fraction (Bld) 36.9 % Low 37-47 [facility] Work Phone: Hemoglobin (HGB) 12.6 g/dL Normal 12.0-16.0 [facility] Work Phone: Platelets 379 10*3/mm3 Normal 150-450 [facility] Work Phone: Platelets #/vol (Bld) 379 10*3/mm3 Normal 150-450 [facility] Work Phone: RBC #/vol (Bld) 4.17 10*6/uL Low 4.2-5.4 [facility] Work Phone: WBC #/vol (Bld) 8.6 10*3/uL Normal 4.4-11.0 [facility] Work Phone: WBC (Leukocytes) 8.6 10*3/uL Normal 4.4-11.0 [facility] Work Phone: Lab Report: Aly 07-28-2010 Alanine aminotransferase (ALT) 62 U/L Normal 12-78 [facility] Work Phone: Albumin 3.1 g/dL Low 3.4-5.0 [facility] Work Phone: Alkaline phosphatase (ALP) 56 U/L Normal 50-136 [facility] Work Phone: ALP enzyme act/vol (Bld) 56 U/L Normal 50-136 [facility] Work Phone: Aspartate aminotransferase (AST) 23 U/L Normal 15-37 [facility] Work Phone: Bilirubin (total) 0.90 mg/dL Normal 0.00-1.00 [facility] Work Phone: Calcium 8.3 mg/dL Low 8.5-10.1 [facility] Work Phone: Chloride 100 mmol/L Normal 98-107 [facility] Work Phone: Creatinine 1.0 mg/dL Normal 0.6-1.0 [facility] Work Phone: Glucose 74 mg/dL Normal 70-110 [facility] Work Phone: Glucose mass conc 74 mg/dL Normal 70-110 [facility] Work Phone: Potassium 4.3 mmol/L Normal 3.5-5.1 [facility] Work Phone: Sodium 139 mmol/L Normal 136-145 [facility] Work Phone: Urea nitrogen 17 mg/dL Normal 7-18 [facility] Work Phone: Lab Report: LIPIDon 07-28-20 10 Cholesterol 156 mg/dL Normal 200 [facility] Work Phone: HDL Cholesterol 38 mg/dL Low [facility] Work Phone: LDL Cholesterol 80 mg/dL Normal 0-130 [facility] Work Phone: Triglyceride 191 mg/dL Normal [facility] Work Phone: very low density lipoproteins 38 mg/dL Normal 5-40 [facility] Work Phone: Office Visit: Albert trejo prox LE & FB in right legon 10-13-2009 General categories [interpretation] of Cervical or vaginal smear or scraping by Cyto stain hysterectomy [facility] Work Phone: No Panel Information Influenza Types A,B Direct FA (VICKIE) [facility] Work Phone: Vital Signs Date Time Vital Sign Value Performing Clinician Facility 03-08-2025 09:03-0400 Body height 152.[address] Carlos Chris MD Work Phone: [facility] 03-08-2025 09:03-0400 Body mass index (BMI) [Ratio] 28.5 kg/m2 Dr. Carlos Chris MD Work Phone: [facility] 03-08-2025 09:03-0400 Body weight 66.[address] Carlos Chris MD Work Phone: [facility] 03-08-2025 09:03-0400 Diastolic blood pressure 70 mm[Hg] Dr. Carlos Chris MD Work Phone: [facility] 03-08-2025 09:03-0400 Heart rate 62 /min Dr. Carlos Chris MD Work Phone: [facility] 03-08-2025 09:03-0400 Respiratory rate 17 /min Dr. Carlos Chris MD Work Phone: [facility] 03-08-2025 09:03-0400 SaO2% (BldA) [Mass fraction] 100 % Dr. Carlos Chris MD Work Phone: [facility] 03-08-2025 09:03-0400 Systolic blood pressure 105 mm[Hg] Dr. Carlos Chris MD Work Phone: [facility] 12-21-2024 09:42-0400 Body height 152.4 cm Alfred Hood MD Work Phone: [facility] 12-21-2024 09:42-0400 Body mass index (BMI) [Ratio] 26.33 kg/m2 Alfred Hood MD Work Phone: [facility] 12-21-2024 09:42-0400 Body weight 61.15 kg Alfred Hood MD Work Phone: [facility] 12-21-2024 09:42-0400 Diastolic blood pressure 74 mm[Hg] Alfred Hood MD Work Phone: [facility] 12-21-2024 09:42-0400 Heart rate 60 /min Alfred Hood MD Work Phone: [facility] 12-21-2024 09:42-0400 Respiratory rate 20 /min Alfred Hood MD Work Phone: [facility] 12-21-2024 09:42-0400 SaO2% (BldA) [Mass fraction] 100 % Alfred Hood MD Work Phone: [facility] 12-21-2024 09:42-0400 Systolic blood pressure 118 mm[Hg] Alfred Hood MD Work Phone: [facility] 10-19-2024 16:15-0500 Body temperature 98.2 [degF] Dr. Carlos Chris MD Work Phone: 4(926)048-532132 [place] [address] 10-19-2024 16:15-0500 Diastolic blood pressure 66 mm[Hg] Dr. Carlos Chris MD Work Phone: 3(321)835-627846 [place] [address] 10-19-2024 16:15-0500 Heart rate 56 /min Dr. Carlos Chris MD Work Phone: 4(255)328-174746 [place] [address] 10-19-2024 16:15-0500 Respiratory rate 16 /min Dr. Carlos Chris MD Work Phone: 0(731)587-082644 [place] [address] 10-19-2024 16:15-0500 SaO2% (BldA) [Mass fraction] 100 % Dr. Carlos Chris MD Work Phone: 9(680)152-296044 [place] [address] 10-19-2024 16:15-0500 Systolic blood pressure 109 mm[Hg] Dr. Carlos Chris MD Work Phone: 7(748)926-534744 [place] [address] 10-19-2024 11:52-0500 Body height 152.[address] Carlos Chris MD Work Phone: 5(284)145-531244 [place] [address] 10-19-2024 11:52-0500 Body mass index (BMI) [Ratio] 26.2 kg/m2 Dr. Carlos Chris MD Work Phone: 2(869)161-828144 [place] [address] 10-19-2024 11:52-0500 Body weight [address] Carlos Chris MD Work Phone: 2(075)507-119344 [place] [address] 10-14-2024 13:39-0500 Body temperature 98.3 [degF] Dr. Carlos Chris MD Work Phone: 8(834)306-341546 [place] [address] 10-14-2024 13:39-0500 Diastolic blood pressure 73 mm[Hg] Dr. Carlos Chris MD Work Phone: 5(664)226-930646 [place] [address] 10-14-2024 13:39-0500 Heart rate 58 /min Dr. Carlos Chris MD Work Phone: 5(930)945-235646 [place] [address] 10-14-2024 13:39-0500 Respiratory rate 17 /min Dr. Carlos Chris MD Work Phone: 5(349)074-396446 [place] [address] 10-14-2024 13:39-0500 SaO2% (BldA) [Mass fraction] 100 % Dr. Carlos Chris MD Work Phone: [facility] 10-14-2024 13:39-0500 Systolic blood pressure 100 mm[Hg] Dr. Carlos Crhis MD Work Phone: [facility] 10-14-2024 09:44-0500 Body weight 58.[address] Carlos Chris MD Work Phone: [facility] 10-14-2024 03:46-0500 Body mass index (BMI) [Ratio] 25 kg/m2 Dr. Carlos Chris MD Work Phone: [facility] 09-18-2024 15:00-0500 Body height 152.4 cm Alfred Hood MD Work Phone: [facility] 09-18-2024 15:00-0500 Body mass index (BMI) [Ratio] 26.52 kg/m2 Alfred Hood MD Work Phone: [facility] 09-18-2024 15:00-0500 Body weight 61.6 kg Alfred Hood MD Work Phone: [facility] 09-18-2024 15:00-0500 Diastolic blood pressure 70 mm[Hg] Alfred Hood MD Work Phone: [facility] 09-18-2024 15:00-0500 Heart rate 71 /min Alfred Hood MD Work Phone: [facility] 09-18-2024 15:00-0500 Respiratory rate 18 /min Alfred Hood MD Work Phone: [facility] 09-18-2024 15:00-0500 SaO2% (BldA) [Mass fraction] 99 % Alfred Hood MD Work Phone: [facility] 09-18-2024 15:00-0500 Systolic blood pressure 102 mm[Hg] Alfred Hood MD Work Phone: [facility] 09-12-2024 10:17-0500 Diastolic blood pressure 76 mm[Hg] Dr. Carlos Chris MD Work Phone: [facility] 09-12-2024 10:17-0500 Heart rate 57 /min Dr. Carlos Chris MD Work Phone: [facility] 09-12-2024 10:17-0500 Respiratory rate 18 /min Dr. Carlos Chris MD Work Phone: [facility] 09-12-2024 10:17-0500 SaO2% (BldA) [Mass fraction] 99 % Dr. Carlos Chris MD Work Phone: [facility] 09-12-2024 10:17-0500 Systolic blood pressure 115 mm[Hg] Dr. Carlos Chris MD Work Phone: [facility] 09-12-2024 08:11-0500 Body mass index (BMI) [Ratio] 25.1 kg/m2 Dr. Carlos Chris MD Work Phone: [facility] 09-12-2024 08:11-0500 Body temperature 97.9 [degF] Dr. Carlos Chris MD Work Phone: [facility] 09-12-2024 08:11-0500 Body weight 60.[address] Carlos Chris MD Work Phone: [facility] 12-06-2023 10:57-0500 Body weight 62.6 kg Gudelia Mi MD Work Phone: [facility] 12-06-2023 10:57-0500 Diastolic blood pressure 58 mm[Hg] Gudelia Mi MD Work Phone: [facility] 12-06-2023 10:57-0500 Systolic blood pressure 102 mm[Hg] Gudelia Mi MD Work Phone: [facility] 11-24-2023 10:12-0500 Body height 152.4 cm Anaid Garsia MD Work Phone: [facility] 11-24-2023 10:12-0500 Body mass index (BMI) [Ratio] 26.56 kg/m2 Anaid Garsia MD Work Phone: [facility] 11-24-2023 10:12-0500 Body weight 61.69 kg Anaid Garsia MD Work Phone: [facility] Comment on above: START WT: 208 IDEAL WT: 130 START EXCESS : 78 TOTAL WT LOSS: 72 EWL: 92 % HT: 60 IN 11-24-2023 10:12-0500 Diastolic blood pressure 87 mm[Hg] Anaid Garsia MD Work Phone: [facility] 11-24-2023 10:12-0500 Heart rate 75 /min Anaid Garsia MD Work Phone: [facility] 11-24-2023 10:12-0500 Systolic blood pressure 128 mm[Hg] Anaid Garsia MD Work Phone: [facility] 11-23-2023 12:57-0500 Body height 154.[address] Carlos Chris Work Phone: [facility] 11-23-2023 12:57-0500 Body mass index (BMI) [Ratio] 26.8 kg/m2 Dr. Carlos Chris Work Phone: [facility] 11-23-2023 12:57-0500 Body temperature 98.2 [degF] Dr. Carlos Chris Work Phone: [facility] 11-23-2023 12:57-0500 Body weight 64.[address] Carlos Chris Work Phone: [facility] 11-23-2023 12:57-0500 Diastolic blood pressure 86 mm[Hg] Dr. Carlos Chris Work Phone: [facility] 11-23-2023 12:57-0500 Heart rate 62 /min Dr. Carlos Chris Work Phone: [facility] 11-23-2023 12:57-0500 Respiratory rate 15 /min Dr. Carlos Chris Work Phone: [facility] 11-23-2023 12:57-0500 SaO2% (BldA) [Mass fraction] 98 % Dr. Carlos Chris Work Phone: [facility] 11-23-2023 12:57-0500 Systolic blood pressure 142 mm[Hg] Dr. Carlos Chris Work Phone: [facility] 11-23-2023 08:35-0500 Body mass index (BMI) [Ratio] 26.8 kg/m2 Dr. Carlos Chris Work Phone: 2(271)522-708046 [place] [address] 11-23-2023 08:35-0500 Body temperature 98.8 [degF] Dr. Carlos Chris Work Phone: 7(139)104-574446 [place] [address] 11-23-2023 08:35-0500 Body weight 64.[address] Carlos Chris Work Phone: [facility] 11-23-2023 08:35-0500 Diastolic blood pressure 80 mm[Hg] Dr. Carlos Chris Work Phone: [facility] 11-23-2023 08:35-0500 Heart rate 74 /min Dr. Carlos Chris Work Phone: 7(407)679-931346 [place] [address] 11-23-2023 08:35-0500 Respiratory rate 16 /min Dr. Carlos Chris Work Phone: [facility] 11-23-2023 08:35-0500 SaO2% (BldA) [Mass fraction] 98 % Dr. Carlos Chris Work Phone: [facility] 11-23-2023 08:35-0500 Systolic blood pressure 122 mm[Hg] Dr. Carlos Chris Work Phone: [facility] 10-06-2023 11:29-0500 Body height 154.[address] Carlos Chris Work Phone: [facility] 10-06-2023 11:29-0500 Body mass index (BMI) [Ratio] 25.4 kg/m2 Dr. Carlos Chris Work Phone: [facility] 10-06-2023 11:29-0500 Body temperature 98.3 [degF] Dr. Carlos Chris Work Phone: [facility] 10-06-2023 11:29-0500 Body weight 61.[address] Carlos Chris Work Phone: [facility] 10-06-2023 11:29-0500 Diastolic blood pressure 74 mm[Hg] Dr. Carlos Chris Work Phone: [facility] 10-06-2023 11:29-0500 Heart rate 67 /min Dr. Carlos Chris Work Phone: 3(889)117-780146 [place] [address] 10-06-2023 11:29-0500 Respiratory rate 12 /min Dr. Carlos Chris Work Phone: 5(616)227-205446 [place] [address] 10-06-2023 11:29-0500 SaO2% (BldA) [Mass fraction] 97 % Dr. Carlos Chris Work Phone: [facility] 10-06-2023 11:29-0500 Systolic blood pressure 118 mm[Hg] Dr. Carlos Chris Work Phone: [facility] 08-04-2023 15:16-0400 Body temperature 98 [degF] Dr. Carlos Chris Work Phone: [facility] 08-04-2023 15:16-0400 Diastolic blood pressure 72 mm[Hg] Dr. Carlos Chris Work Phone: [facility] 08-04-2023 15:16-0400 Heart rate 53 /min Dr. Carlos Chris Work Phone: [facility] 08-04-2023 15:16-0400 Respiratory rate 18 /min Dr. Carlos Chris Work Phone: [facility] 08-04-2023 15:16-0400 SaO2% (BldA) [Mass fraction] 99 % Dr. Carlos Chris Work Phone: [facility] 08-04-2023 15:16-0400 Systolic blood pressure 136 mm[Hg] Dr. Carlos Chris Work Phone: 1(111)406-561844 [place] [address] 08-04-2023 12:01-0400 Body height 154.[address] Carlos Chris Work Phone: 4(611)950-179244 [place] [address] 08-04-2023 12:01-0400 Body mass index (BMI) [Ratio] 25.4 kg/m2 Dr. Carlos Chris Work Phone: 6(198)223-209044 [place] [address] 08-04-2023 12:01-0400 Body weight [address] Carlos Chris Work Phone: 8(835)926-141244 [place] [address] 07-21-2023 08:13-0400 Body height 154.[address] Carlos Chris Work Phone: 7(845)653-786944 [place] [address] 07-21-2023 08:13-0400 Body mass index (BMI) [Ratio] 25.3 kg/m2 Dr. Carlos Chris Work Phone: 2(544)645-965344 [place] [address] 07-21-2023 08:13-0400 Body temperature 98 [degF] Dr. Carlos Chris Work Phone: 0(762)039-887644 [place] [address] 07-21-2023 08:13-0400 Body weight 60.[address] Carlos Chris Work Phone: 3(683)820-912344 [place] [address] 07-21-2023 08:13-0400 Diastolic blood pressure 80 mm[Hg] Dr. Carlos Chris Work Phone: 2(643)688-705744 [place] [address] 07-21-2023 08:13-0400 Heart rate 60 /min Dr. Carlos Chris Work Phone: 3(690)478-977244 [place] [address] 07-21-2023 08:13-0400 Respiratory rate 16 /min Dr. Carlos Chris Work Phone: 1(330)577-696244 [place] [address] 07-21-2023 08:13-0400 SaO2% (BldA) [Mass fraction] 98 % Dr. Carlos Chris Work Phone: 0(831)753-376744 [place] [address] 07-21-2023 08:13-0400 Systolic blood pressure 128 mm[Hg] Dr. Carlos Chris Work Phone: [facility] 07-16-2023 12:19-0400 Diastolic blood pressure 80 mm[Hg] Dr. Carlos Chris Work Phone: [facility] 07-16-2023 12:19-0400 Heart rate 74 /min Dr. Carlos Chris Work Phone: [facility] 07-16-2023 12:19-0400 Respiratory rate 16 /min Dr. Carlos Chris Work Phone: [facility] 07-16-2023 12:19-0400 SaO2% (BldA) [Mass fraction] 100 % Dr. Carlos Chris Work Phone: [facility] 07-16-2023 12:19-0400 Systolic blood pressure 150 mm[Hg] Dr. Carlos Chris Work Phone: [facility] 07-16-2023 09:17-0400 Body mass index (BMI) [Ratio] 23.9 kg/m2 Dr. Carlos Chris Work Phone: [facility] 07-16-2023 09:17-0400 Body temperature 95.7 [degF] Dr. Carlos Chris Work Phone: [facility] 07-16-2023 09:17-0400 Body weight 57.[address] Carlos Chris Work Phone: [facility] 05-30-2023 13:00-0400 Diastolic blood pressure 76 mm[Hg] Sylvia Billow DO Work Phone: [facility] 05-30-2023 13:00-0400 Systolic blood pressure 117 mm[Hg] Sylvia Billow DO Work Phone: [facility] 05-26-2023 09:00-0400 Body height 152.4 cm [employer] Other [facility]. Other 05-26-2023 09:00-0400 Body mass index (BMI) [Ratio] 25.58 kg/m2 [employer] Other [facility] [employer]. Other 05-26-2023 09:00-0400 Body weight 59.42 kg [employer]NAID [employer] Other [facility] [employer]. Other 05-26-2023 08:00-0400 Diastolic blood pressure 79 mm[Hg] ANAID [employer] Other [facility] [employer] Other 05-26-2023 08:00-0400 Heart rate 63 /min ANAID [employer] Other [facility] [employer] Other 05-26-2023 08:00-0400 Systolic blood pressure 121 mm[Hg] ANAID [employer] Other [facility] [employer] Other 04-25-2023 10:08-0400 Diastolic blood pressure 83 mm[Hg] Sylvia Billow DO Work Phone: [facility] 04-25-2023 10:08-0400 Heart rate 70 /min Sylvia Billow DO Work Phone: [facility] 04-25-2023 10:08-0400 Systolic blood pressure 121 mm[Hg] Sylvia Billow DO Work Phone: [facility] 04-01-2023 17:32-0400 Body temperature 97.5 [degF] Dr. Carlos Chris Work Phone: [facility] 04-01-2023 17:32-0400 Diastolic blood pressure 73 mm[Hg] Dr. Carlos Chris Work Phone: [facility] 04-01-2023 17:32-0400 Heart rate 78 /min Dr. Carlos Chris Work Phone: [facility] 04-01-2023 17:32-0400 Respiratory rate 18 /min Dr. Carlos Chris Work Phone: [facility] 04-01-2023 17:32-0400 SaO2% (BldA) [Mass fraction] 95 % Dr. Carlos Chris Work Phone: [facility] 04-01-2023 17:32-0400 Systolic blood pressure 119 mm[Hg] Dr. Carlos Chris Work Phone: [facility] 04-01-2023 12:05-0400 Body height 154.[address] Carlos Chris Work Phone: [facility] 04-01-2023 12:05-0400 Body mass index (BMI) [Ratio] 27.5 kg/m2 Dr. Carlos Chris Work Phone: [facility] 04-01-2023 12:05-0400 Body weight 66.[address] Carlos Chris Work Phone: [facility] 03-23-2023 08:46-0400 Body weight 65.32 kg Gudelia Mi MD Work Phone: [facility] 03-23-2023 08:46-0400 Diastolic blood pressure 62 mm[Hg] Gudelia Mi MD Work Phone: [facility] 03-23-2023 08:46-0400 Systolic blood pressure 110 mm[Hg] Gudelia Mi MD Work Phone: [facility] 03-21-2023 09:30-0400 Body mass index (BMI) [Ratio] 28.1 kg/m2 Dr. Carlos Chris Work Phone: [facility] 03-21-2023 09:30-0400 Body weight 65.[address] Carlos Chris Work Phone: [facility] 03-21-2023 09:30-0400 Diastolic blood pressure 78 mm[Hg] Dr. Carlos Chris Work Phone: [facility] 03-21-2023 09:30-0400 Heart rate 69 /min Dr. Carlos Chris Work Phone: [facility] 03-21-2023 09:30-0400 Respiratory rate 18 /min Dr. Carlos Chris Work Phone: [facility] 03-21-2023 09:30-0400 SaO2% (BldA) [Mass fraction] 100 % Dr. Carlos Chris Work Phone: [facility] 03-21-2023 09:30-0400 Systolic blood pressure 115 mm[Hg] Dr. Carlos Chris Work Phone: [facility] 03-17-2023 15:58-0400 Body temperature 97.1 [degF] Dr. Carlos Chris Work Phone: 8(494)267-975846 [place] [address] 03-17-2023 15:58-0400 Diastolic blood pressure 70 mm[Hg] Dr. Carlos Chris Work Phone: 6(932)259-116874 [address] 03-17-2023 15:58-0400 Heart rate 63 /min Dr. Carlos Chris Work Phone: [facility] 03-17-2023 15:58-0400 Respiratory rate 16 /min Dr. Carlos Chris Work Phone: [facility] 03-17-2023 15:58-0400 SaO2% (BldA) [Mass fraction] 99 % Dr. Carlos Chris Work Phone: [facility] 03-17-2023 15:58-0400 Systolic blood pressure 109 mm[Hg] Dr. Carlos Chris Work Phone: [facility] 03-17-2023 10:24-0400 Body height 152.[address] Carlos Chris Work Phone: [facility] 03-17-2023 10:24-0400 Body mass index (BMI) [Ratio] 27.4 kg/m2 Dr. Carlos Chris Work Phone: [facility] 03-17-2023 10:24-0400 Body weight 63.[address] Carlos Chirs Work Phone: [facility] 03-09-2023 09:19-0400 Body height 151.8 cm Gudelia Mi MD Work Phone: [facility] 03-09-2023 09:19-0400 Body weight 61.69 kg Gudelia Mi MD Work Phone: [facility] 03-09-2023 09:19-0400 Diastolic blood pressure 60 mm[Hg] Gudelia Mi MD Work Phone: [facility] 03-09-2023 09:19-0400 Heart rate 68 /min Gudelia Mi MD Work Phone: [facility] 03-09-2023 09:19-0400 Respiratory rate 16 /min Gudelia Mi MD Work Phone: [facility] 03-09-2023 09:19-0400 SaO2% (BldA) [Mass fraction] 99 % Gudelia Mi MD Work Phone: [facility] 03-09-2023 09:19-0400 Systolic blood pressure 110 mm[Hg] Gudelia Mi MD Work Phone: [facility] 01-17-2023 09:50-0400 Body height 152.[address] Carlos Chris Work Phone: [facility] 01-17-2023 09:50-0400 Body mass index (BMI) [Ratio] 29.9 kg/m2 Dr. Carlos Chris Work Phone: [facility] 01-17-2023 09:50-0400 Body temperature 97.8 [degF] Dr. Carlos Chris Work Phone: [facility] 01-17-2023 09:50-0400 Body weight 69.[address] Carlos Chris Work Phone: [facility] 01-17-2023 09:50-0400 Diastolic blood pressure 63 mm[Hg] Dr. Carlos Chris Work Phone: [facility] 01-17-2023 09:50-0400 Heart rate 66 /min Dr. Carlos Chris Work Phone: [facility] 01-17-2023 09:50-0400 Respiratory rate 20 /min Dr. Carlos Chris Work Phone: [facility] 01-17-2023 09:50-0400 SaO2% (BldA) [Mass fraction] 96 % Dr. Carlos Chris Work Phone: [facility] 01-17-2023 09:50-0400 Systolic blood pressure 91 mm[Hg] Dr. Carlos Chris Work Phone: [facility] 12-31-2022 23:47-0400 SaO2% (BldA) [Mass fraction] 99 % [facility] 12-31-2022 21:45-0400 Body height 152.4 cm [facility] 12-31-2022 21:45-0400 Body mass index (BMI) [Ratio] 30.8 kg/m2 [facility] 12-31-2022 21:45-0400 Body temperature 96.5 [degF] [facility] 12-31-2022 21:45-0400 Body weight 71.57 kg [facility] 12-31-2022 21:45-0400 Diastolic blood pressure 90 mm[Hg] [facility] 12-31-2022 21:45-0400 Heart rate 76 /min [facility] 12-31-2022 21:45-0400 Respiratory rate 16 /min [facility] 12-31-2022 21:45-0400 Systolic blood pressure 136 mm[Hg] [facility] 11-19-2022 20:06-0500 Diastolic blood pressure 78 mm[Hg] [facility] 11-19-2022 20:06-0500 Heart rate 74 /min [facility] 11-19-2022 20:06-0500 Respiratory rate 16 /min [facility] 11-19-2022 20:06-0500 SaO2% (BldA) [Mass fraction] 97 % [facility] 11-19-2022 20:06-0500 Systolic blood pressure 120 mm[Hg] [facility] 11-19-2022 18:53-0500 Body temperature 98.2 [degF] [facility] 11-19-2022 18:50-0500 Body height 152.4 cm [facility] 11-19-2022 18:50-0500 Body mass index (BMI) [Ratio] 33.4 kg/m2 [facility] 11-19-2022 18:50-0500 Body weight 77.56 kg [facility] 11-01-2022 16:30-0500 Body height 152.4 cm [employer] Other [facility] [employer] Other 11-01-2022 16:30-0500 Body mass index (BMI) [Ratio] 33.78 kg/m2 [employer] [employer] Other [facility] [employer] Other 11-01-2022 16:30-0500 Body weight 78.47 kg STARR FISTEK Other [facility] [employer] Other 11-01-2022 16:30-0500 Diastolic blood pressure 85 mm[Hg] STARR FISTEK Other [facility] [employer] Other 11-01-2022 16:30-0500 Heart rate 76 /min STARR FISTEK Other [facility] [employer] Other 11-01-2022 16:30-0500 Systolic blood pressure 125 mm[Hg] STARR FISTEK Other [facility] [employer] Other 11-01-2022 15:30-0500 Body height 152.4 cm ANAID GARSIA Other [facility] [employer] Other 11-01-2022 15:30-0500 Body mass index (BMI) [Ratio] 33.78 kg/m2 ANAID RUY-ALISTAIR Other [facility] [employer] Other 11-01-2022 15:30-0500 Body weight 78.47 kg ANAID RUY-ALISTAIR Other [facility] [employer] Other 10-18-2022 10:00-0500 Body height 152.4 cm STARR FISTEK Other [facility] [employer] Other 10-18-2022 10:00-0500 Body mass index (BMI) [Ratio] 33.2 kg/m2 STARR FISTEK Other [facility] [employer] Other 10-18-2022 10:00-0500 Body weight 77.11 kg STARR FISTEK Other [facility] [employer] Other 10-18-2022 10:00-0500 Diastolic blood pressure 79 mm[Hg] STARR FISTEK Other [facility] [employer] Other 10-18-2022 10:00-0500 Heart rate 79 /min STARR FISTEK Other [facility] [employer] Other 10-18-2022 10:00-0500 Systolic blood pressure 112 mm[Hg] STARR FISTEK Other [facility] [employer] Other 10-05-2022 15:30-0500 Body height 152.4 cm ANAID RUY-ALISTAIR Other [facility] [employer] Other 10-05-2022 15:30-0500 Body mass index (BMI) [Ratio] 33.59 kg/m2 ANAID GARSIA Other [facility] [employer] Other 10-05-2022 15:30-0500 Body weight 78.02 kg ANAID GARSIA Other [facility] [employer] Other 10-05-2022 15:30-0500 Diastolic blood pressure 82 mm[Hg] STARR FISTEK Other [facility] [employer] Other 10-05-2022 15:30-0500 Heart rate 92 /min STARR FISTEK Other [facility] [employer] Other 10-05-2022 15:30-0500 Systolic blood pressure 117 mm[Hg] STRAR FISTEK Other [facility] [employer] Other 09-22-2022 15:57-0500 Body height 152.4 cm MD Anaid Garsia MD [employer] 09-22-2022 15:57-0500 Body mass index (BMI) [Ratio] 39.18 kg/m2 MD Anaid Garsia MD [employer] 09-22-2022 15:57-0500 Body temperature 97.34 [degF] MD Anaid Garsia MD [employer] 09-22-2022 15:57-0500 Body weight 91 kg MD Anaid Garsia MD [employer] 09-22-2022 15:57-0500 Diastolic blood pressure 77 mm[Hg] MD Anaid Garsia MD [employer] 09-22-2022 15:57-0500 Heart rate 77 /min MD Anaid Garsia MD [facility] [place] 09-22-2022 15:57-0500 Inhaled oxygen concentration 97 % MD Anaid Garsia MD [facility] [place] 09-22-2022 15:57-0500 Respiratory rate 18 /min MD Anaid Garsia MD [facility] [place] 09-22-2022 15:57-0500 Systolic blood pressure 122 mm[Hg] MD Anaid Garsia MD [facility] [place] 08-26-2022 11:00-0500 Diastolic blood pressure 75 mm[Hg] ZANDRA SPAULDINGCA Other [facility] [employer] Other 08-26-2022 11:00-0500 Heart rate 91 /min ZANDRA DONCA Other [facility] [employer] Other 08-26-2022 11:00-0500 Respiratory rate 16 /min ZANDRA DONCA Other [facility] [employer] Other 08-26-2022 11:00-0500 Systolic blood pressure 124 mm[Hg] ZANDRA DONCA Other [facility] [employer] Other 08-26-2022 09:00-0500 Body height 152.4 cm ANAID GARSIA Other [facility] [employer] Other 08-26-2022 09:00-0500 Body mass index (BMI) [Ratio] 34.95 kg/m2 ANAID REDMOND-ALISTAIR Other [facility] [employer] Other 08-26-2022 09:00-0500 Body weight 81.19 kg NAAID RUY-ALISTAIR Other [facility] [employer] Other 08-10-2022 15:57-0400 Body temperature 97 [degF] Dr. Carlos Chris Work Phone: 3(274)780-013146 [place] [address] 08-10-2022 15:57-0400 Diastolic blood pressure 76 mm[Hg] Dr. Carlos Chris Work Phone: 2(779)211-162446 [place] [address] 08-10-2022 15:57-0400 Heart rate 76 /min Dr. Carlos Chris Work Phone: 7(420)855-090946 [place] [address] 08-10-2022 15:57-0400 Respiratory rate 15 /min Dr. Carlos Chris Work Phone: 9(849)468-533346 [place] [address] 08-10-2022 15:57-0400 SaO2% (BldA) [Mass fraction] 95 % Dr. Carlos Chris Work Phone: 6(184)413-633746 [place] [address] 08-10-2022 15:57-0400 Systolic blood pressure 112 mm[Hg] Dr. Carlos Chris Work Phone: 6(806)[phone] [place] [address] 08-10-2022 13:00-0400 Inhaled oxygen flow rate 2 L/min Dr. Carlos Chris Work Phone: 2(568)581-730246 [place] [address] 08-10-2022 06:26-0400 Body height 152.[address] Carlos Chris Work Phone: [facility] 08-10-2022 06:26-0400 Body mass index (BMI) [Ratio] 38 kg/m2 Dr. Carlos Chris Work Phone: 2(314)297-533846 [place] [address] 08-10-2022 06:26-0400 Body weight 88.[address] Carlos Chris Work Phone: [facility] 07-23-2022 10:30-0400 Body height 152.4 cm ANAID RUY-ALISTAIR Other [facility] [employer] Other 07-23-2022 10:30-0400 Body mass index (BMI) [Ratio] 37.3 kg/m2 ANAID RUY-ALISTAIR Other [facility] [employer] Other 07-23-2022 10:30-0400 Body weight 86.64 kg ANAID RUY-ALISTAIR Other [facility] [employer] Other 06-23-2022 17:30-0400 Body height 152.4 cm ZANDRA DONCA Other [facility] [employer] Other 06-23-2022 17:30-0400 Body mass index (BMI) [Ratio] 37.88 kg/m2 ZANDRA DONCA Other [facility] [employer] Other 06-23-2022 17:30-0400 Body weight 88 kg ZANDRA DONCA Other [facility] [employer] Other 06-23-2022 17:00-0400 Diastolic blood pressure 79 mm[Hg] ZANDRA DONCA Other [facility] [employer] Other 06-23-2022 17:00-0400 Heart rate 96 /min ZANDRA DONCA Other [facility] [employer] Other 06-23-2022 17:00-0400 Respiratory rate 16 /min ZANDRA DONCA Other [facility] [employer] Other 06-23-2022 17:00-0400 Systolic blood pressure 130 mm[Hg] ZANDRA DONCA Other [facility] [employer] Other 05-27-2022 11:45-0400 Body height 152.4 cm ZANDRA PORTILLO Other [facility] [employer] Other 05-27-2022 11:45-0400 Body mass index (BMI) [Ratio] 37.69 kg/m2 ZANDRA PORTILLO Other [facility] [employer] Other 05-27-2022 11:45-0400 Body weight 87.54 kg ZANDRA PORTILLO Other [facility] [employer] Other 05-27-2022 11:00-0400 Respiratory rate 16 /min ZANDRA PORTILLO Other [facility] [employer] Other 05-27-2022 09:45-0400 Diastolic blood pressure 69 mm[Hg] ZANDRA PORTILLO Other [facility] [employer] Other 05-27-2022 09:45-0400 Heart rate 89 /min ZANDRA PORTILLO Other [facility] [employer] Other 05-27-2022 09:45-0400 Systolic blood pressure 126 mm[Hg] ZANDRA PORTILLO Other [facility] [employer] Other 05-25-2022 07:50-0400 Body height 154.[address] Carlos Chris Work Phone: [facility] Work Phone: 05-25-2022 07:50-0400 Body mass index (BMI) [Ratio] 36.6 kg/m2 Dr. Carlos Chris Work Phone: [facility] Work Phone: 05-25-2022 07:50-0400 Body temperature 97.8 [degF] Dr. Carlos Chris Work Phone: [facility] Work Phone: 05-25-2022 07:50-0400 Body weight 87.[address] Carlos Chris Work Phone: [facility] Work Phone: 05-25-2022 07:50-0400 Diastolic blood pressure 71 mm[Hg] Dr. Carlos Chris Work Phone: [facility] Work Phone: 05-25-2022 07:50-0400 Heart rate 80 /min Dr. Carlos Chris Work Phone: [facility] Work Phone: 05-25-2022 07:50-0400 Respiratory rate 17 /min Dr. Carlos Chris Work Phone: [facility] Work Phone: 05-25-2022 07:50-0400 SaO2% (BldA) [Mass fraction] 98 % Dr. Carlos Chris Work Phone: [facility] Work Phone: 05-25-2022 07:50-0400 Systolic blood pressure 106 mm[Hg] Dr. Carlos Chris Work Phone: [facility] Work Phone: 05-05-2022 13:00-0400 Body height 152.4 cm ZANDRA PORTILLO Other [facility] [employer] Other 05-05-2022 13:00-0400 Body mass index (BMI) [Ratio] 39.06 kg/m2 ZANDRA PORTILLO Other [facility] [employer] Other 05-05-2022 13:00-0400 Body weight 90.72 kg ZANDRA PORTILLO Other [facility] [employer] Other 04-05-2022 10:30-0400 Body height 152.4 cm ANAID RUY-AILSTAIR Other [facility] [employer] Other 04-05-2022 10:30-0400 Body mass index (BMI) [Ratio] 39.06 kg/m2 ANAID RUY-ALISTAIR Other [facility] [employer] Other 04-05-2022 10:30-0400 Body weight 90.72 kg ANAIDKixerALISTAIR Other [facility] [employer] Other 03-19-2022 08:59-0400 Body weight 92.[address] Carlos Chris Work Phone: [facility] Work Phone: 03-19-2022 08:59-0400 Diastolic blood pressure 67 mm[Hg] Dr. Carlos Chris Work Phone: [facility] Work Phone: 03-19-2022 08:59-0400 Heart rate 76 /min Dr. Carlos Chris Work Phone: [facility] Work Phone: 03-19-2022 08:59-0400 Respiratory rate 16 /min Dr. Carlos Chris Work Phone: [facility] Work Phone: 03-19-2022 08:59-0400 SaO2% (BldA) [Mass fraction] 98 % Dr. Carlos Chris Work Phone: [facility] Work Phone: 03-19-2022 08:59-0400 Systolic blood pressure 104 mm[Hg] Dr. Carlos Chris Work Phone: [facility] Work Phone: 03-17-2022 17:00-0400 Body height 152.4 cm ZANDRA PORTILLO Other [facility] [employer] Other 03-17-2022 17:00-0400 Body mass index (BMI) [Ratio] 40.03 kg/m2 ZANDRA PORTILLO Other [facility] [employer] Other 03-17-2022 17:00-0400 Body weight 92.99 kg ZANDRA PORTILLO Other [facility] [employer] Other 03-10-2022 10:02-0400 Body mass index (BMI) [Ratio] 38.7 kg/m2 Dr. Carlos Chris Work Phone: [facility] Work Phone: 03-10-2022 10:02-0400 Body temperature 95 [degF] Dr. Carlos Chris Work Phone: [facility] Work Phone: 03-10-2022 10:02-0400 Body weight 93.[address] Carlos Chris Work Phone: [facility] Work Phone: 03-10-2022 10:02-0400 Diastolic blood pressure 76 mm[Hg] Dr. Carlos Chris Work Phone: [facility] Work Phone: 03-10-2022 10:02-0400 Heart rate 81 /min Dr. Carlos Chris Work Phone: [facility] Work Phone: 03-10-2022 10:02-0400 Respiratory rate 18 /min Dr. Carlos Chris Work Phone: [facility] Work Phone: 03-10-2022 10:02-0400 SaO2% (BldA) [Mass fraction] 98 % Dr. Carlos Chris Work Phone: [facility] Work Phone: 03-10-2022 10:02-0400 Systolic blood pressure 100 mm[Hg] Dr. Carlos Chris Work Phone: [facility] Work Phone: 03-10-2022 10:02-0400 Body height 154.[address] Carlos Chris Work Phone: [facility] Work Phone: 03-10-2022 10:02-0400 Body mass index (BMI) [Ratio] 38.7 kg/m2 Dr. Carlos Chris Work Phone: [facility] Work Phone: 03-10-2022 10:02-0400 Body temperature 95 [degF] Dr. Carlos Chris Work Phone: [facility] Work Phone: 03-10-2022 10:02-0400 Body weight 93.[address] Carlos Chris Work Phone: [facility] Work Phone: 03-10-2022 10:02-0400 Diastolic blood pressure 76 mm[Hg] Dr. Carlos Chris Work Phone: [facility] Work Phone: 03-10-2022 10:02-0400 Heart rate 81 /min Dr. Carlos Chris Work Phone: [facility] Work Phone: 03-10-2022 10:02-0400 Respiratory rate 18 /min Dr. Carlos Chris Work Phone: [facility] Work Phone: 03-10-2022 10:02-0400 SaO2% (BldA) [Mass fraction] 98 % Dr. Carlos Chris Work Phone: [facility] Work Phone: 03-10-2022 10:02-0400 Systolic blood pressure 100 mm[Hg] Dr. Carlos Chris Work Phone: [facility] Work Phone: 03-02-2022 14:30-0400 Body height 152.4 cm ANAID RUY-ALISTAIR Other [facility] [employer] Other 03-02-2022 14:30-0400 Body mass index (BMI) [Ratio] 39.64 kg/m2 ANAID RUY-ALISTAIR Other [facility] [employer] Other 03-02-2022 14:30-0400 Body weight 92.08 kg ANAID RUY-ALISTAIR Other [facility] [employer] Other 03-02-2022 14:00-0400 Diastolic blood pressure 71 mm[Hg] ZANDRA DONCA Other [facility] [employer] Other 03-02-2022 14:00-0400 Heart rate 81 /min ZANDRA DONCA Other [facility] [employer] Other 03-02-2022 14:00-0400 Respiratory rate 16 /min ZANDRA DONCA Other [facility] [employer] Other 03-02-2022 14:00-0400 Systolic blood pressure 116 mm[Hg] ZANDRA DONCA Other [facility] [employer] Other 02-02-2022 17:15-0400 Body height 152.4 cm ZANDRA DONCA Other [facility] [employer] Other 02-02-2022 17:15-0400 Body mass index (BMI) [Ratio] 40.62 kg/m2 ZANDRA PORTILLO Other [facility] [employer] Other 02-02-2022 17:15-0400 Body weight 94.35 kg ZANDRA PORTILLO Other [facility] [employer] Other 02-02-2022 17:15-0400 Diastolic blood pressure 78 mm[Hg] ZANDRA PORTILLO Other [facility] [employer] Other 02-02-2022 17:15-0400 Heart rate 84 /min ZANDRA PORTILLO Other [facility] [employer] Other 02-02-2022 17:15-0400 Respiratory rate 16 /min ZANDRA PORTILLO Other [facility] [employer] Other 02-02-2022 17:15-0400 Systolic blood pressure 111 mm[Hg] ZANDRA PORTILLO Other [facility] [employer] Other 02-02-2022 16:15-0400 Body height 152.4 cm ANAID RUY-ALISTAIR Other [facility] [employer] Other 02-02-2022 16:15-0400 Body mass index (BMI) [Ratio] 40.62 kg/m2 ANAID RUY-AILSTAIR Other [facility] [employer] Other 02-02-2022 16:15-0400 Body weight 94.35 kg ANAID RUY-ALISTAIR Other [facility]. Other 01-27-2022 12:55-0400 Body mass index (BMI) [Ratio] 40.2 kg/m2 Dr. Carlos Chris Work Phone: [facility] Work Phone: 01-27-2022 12:55-0400 Body weight 96.[address] Carlos Chris Work Phone: [facility] Work Phone: 01-27-2022 12:55-0400 Diastolic blood pressure 67 mm[Hg] Dr. Carlos Chris Work Phone: [facility] Work Phone: 01-27-2022 12:55-0400 Heart rate 83 /min Dr. Carlos Chris Work Phone: [facility] Work Phone: 01-27-2022 12:55-0400 Respiratory rate 18 /min Dr. Carlos Chris Work Phone: [facility] Work Phone: 01-27-2022 12:55-0400 SaO2% (BldA) [Mass fraction] 100 % Dr. Carlos Chris Work Phone: [facility] Work Phone: 01-27-2022 12:55-0400 Systolic blood pressure 105 mm[Hg] Dr. Carlos Chris Work Phone: [facility] Work Phone: 01-27-2022 12:55-0400 Body height 154.[address] Carlos Chris Work Phone: [facility] Work Phone: 01-27-2022 12:55-0400 Body mass index (BMI) [Ratio] 40.2 kg/m2 Dr. Carlos Chris Work Phone: [facility] Work Phone: 01-27-2022 12:55-0400 Body weight 96.[address] Carlos Chris Work Phone: [facility] Work Phone: 01-27-2022 12:55-0400 Diastolic blood pressure 67 mm[Hg] Dr. Carlos Chris Work Phone: [facility] Work Phone: 01-27-2022 12:55-0400 Heart rate 83 /min Dr. Carlos Chris Work Phone: [facility] Work Phone: 01-27-2022 12:55-0400 Respiratory rate 18 /min Dr. Carlos Chris Work Phone: [facility] Work Phone: 01-27-2022 12:55-0400 SaO2% (BldA) [Mass fraction] 100 % Dr. Carlos Chris Work Phone: [facility] Work Phone: 01-27-2022 12:55-0400 Systolic blood pressure 105 mm[Hg] Dr. Carlos Chris Work Phone: [facility] Work Phone: 01-14-2022 10:39-0400 Heart rate 71 /min Dr. Carlos Chris Work Phone: [facility] Work Phone: 01-14-2022 10:39-0400 Respiratory rate 13 /min Dr. Carlos Chris Work Phone: [facility] Work Phone: 01-14-2022 10:39-0400 SaO2% (BldA) [Mass fraction] 99 % Dr. Carlos Chris Work Phone: [facility] Work Phone: 01-14-2022 09:28-0400 Body height 154.[address] Carlos Chris Work Phone: [facility] Work Phone: 01-14-2022 09:28-0400 Body mass index (BMI) [Ratio] 42.5 kg/m2 Dr. Carlos Chris Work Phone: [facility] Work Phone: 01-14-2022 09:28-0400 Body temperature 97.9 [degF] Dr. Carlos Chris Work Phone: [facility] Work Phone: 01-14-2022 09:28-0400 Body weight 102.[address] Carlos Chris Work Phone: [facility] Work Phone: 01-14-2022 09:28-0400 Diastolic blood pressure 82 mm[Hg] Dr. Carlos Chris Work Phone: [facility] Work Phone: 01-14-2022 09:28-0400 Systolic blood pressure 129 mm[Hg] Dr. Carlos Chris Work Phone: [facility] Work Phone: 12-30-2021 10:29-0400 Body mass index (BMI) [Ratio] 40.3 kg/m2 Dr. Carlos Chris Work Phone: [facility] Work Phone: 12-30-2021 10:29-0400 Body temperature 96.7 [degF] Dr. Carlos Chris Work Phone: [facility] Work Phone: 12-30-2021 10:29-0400 Body weight 96.[address] Carlos Chris Work Phone: [facility] Work Phone: 12-30-2021 10:29-0400 Diastolic blood pressure 84 mm[Hg] Dr. Carlos Chris Work Phone: [facility] Work Phone: 12-30-2021 10:29-0400 Heart rate 91 /min Dr. Carlos Chris Work Phone: [facility] Work Phone: 12-30-2021 10:29-0400 Respiratory rate 16 /min Dr. Carlos Chris Work Phone: [facility] Work Phone: 12-30-2021 10:29-0400 SaO2% (BldA) [Mass fraction] 98 % Dr. Carlos Chris Work Phone: [facility] Work Phone: 12-30-2021 10:29-0400 Systolic blood pressure 130 mm[Hg] Dr. Carlos Chris Work Phone: [facility] Work Phone: 04-27-2021 08:25-0400 Body mass index (BMI) [Ratio] 41 kg/m2 Dr. Carlos Chris Work Phone: [facility] Work Phone: 02-10-2021 06:24-0400 Body mass index (BMI) [Ratio] 43.5 kg/m2 Dr. Carlos Chris Work Phone: [facility] Work Phone: 02-10-2017 13:15-0400 BMI (Body Mass Index) 40.39 kg/m2 Merly Bob NP [facility] Work Phone: 02-10-2017 13:15-0400 Body Temperature 98.1 [degF] Merly Bob NP [facility] Work Phone: 02-10-2017 13:15-0400 BP Diastolic 81 mm[Hg] Merly Bob NP [facility] Work Phone: 02-10-2017 13:15-0400 BP Systolic 134 mm[Hg] Merly Bob NP [facility] Work Phone: 02-10-2017 13:15-0400 BSA (Body Surface Area) 1.95 m2 Merly Bob NP [facility] Work Phone: 02-10-2017 13:15-0400 Height 154.94 cm Merly Bob NP [facility] Work Phone: 02-10-2017 13:15-0400 Pulse (Heart Rate) 70 /min Merly Bob NP [facility] Work Phone: 02-10-2017 13:15-0400 Pulse Oximetry 97 % Merly Bob NP [facility] Work Phone: 02-10-2017 13:15-0400 Respiratory Rate 16 /min Merly Bob NP [facility] Work Phone: 02-10-2017 13:15-0400 Weight 96.98 kg Merly Bob NP [facility] Work Phone: 09-22-2016 13:36-0500 BMI (Body Mass Index) 39.3 kg/m2 Merly Bob NP [facility] Work Phone: 09-22-2016 13:36-0500 Body Temperature 98.4 [degF] Merly Bob NP [facility] Work Phone: 09-22-2016 13:36-0500 BP Diastolic 87 mm[Hg] Merly Bob NP [facility] Work Phone: 09-22-2016 13:36-0500 BP Systolic 125 mm[Hg] Merly Bob NP [facility] Work Phone: 09-22-2016 13:36-0500 BSA (Body Surface Area) 1.92 m2 Merly Bob NP [facility] Work Phone: 09-22-2016 13:36-0500 Height 154.94 cm Merly Bob NP [facility] Work Phone: 09-22-2016 13:36-0500 Pulse (Heart Rate) 90 /min Merly Bob NP [facility] Work Phone: 09-22-2016 13:36-0500 Pulse Oximetry 100 % Merly Bob NP [facility] Work Phone: 09-22-2016 13:36-0500 Respiratory Rate 16 /min Merly Bob NP [facility] Work Phone: 09-22-2016 13:36-0500 Weight 94.35 kg Merly Lisbeth AUDIO ENGINEER [facility] Work Phone: 09-22-2016 13:36-0500 Weight 94.55 kg Merly Laysahra AUDIO ENGINEER [facility] Work Phone: Encounters Encounter Date Encounter Type Care Provider Facility Start: 03-21-2025 ambulatory Carlos Chris Facility:[facility] Start: 03-08-2025 End: 03-08-[address] Anju Torres MD -[facility] Work Phone: Start: 03-08-2025 End: 03-08-[address] Carlos Chris MD Work Phone: [facility] Work Phone: Start: 02-27-2025 End: 02-27-[address] Carlos Chris MD Work Phone: [facility] Work Phone: Start: 02-27-2025 End: 02-27-[address] Anju Torres MD -Ultrasound [facility] Work Phone: Start: 02-27-2025 End: 02-27-2025 ambulatory Anju Torres Facility:[facility] Start: 02-21-2025 End: 02-21-[address] Carlos Chris MD Work Phone: [facility] Work Phone: Start: 02-21-2025 End: 02-21-2025 Patient encounter procedure Kristofer An DO -Radiology [facility] Work Phone: Start: 02-21-2025 End: 02-21-2025 Patient encounter procedure Kristofer An DO -[facility] Work Phone: Start: 02-21-2025 End: 02-21-[address] Carlos Chris MD Work Phone: [facility] Work Phone: Start: 02-21-2025 End: 02-21-2025 ambulatory Carlos Chris Facility:[facility] Start: 01-11-2025 End: 01-11-[address] Carlos Chris MD Work Phone: [facility] Work Phone: Start: 01-11-2025 End: 01-11-[address] Carlos Chris MD -Laboratory Work Phone: Start: 01-11-2025 End: 01-11-2025 ambulatory [facility] Facility:[facility] Start: 12-25-2024 End: 02-25-2025 Refill Gudelia Mi MD Work Phone: OB/Gynecology Comment on above: Refill Request Start: 12-21-2024 End: 12-21-2024 ambulatory [facility] Facility:[facility] Start: 12-21-2024 End: 12-21-2024 Patient encounter procedure Alfred Hood MD Work Phone: Endocrinology Comment on above: Postablative hypothy roidism (Primary Dx) Start: 12-13-2024 Encounter for other preprocedural examination Joshua Chin [facility] Start: 12-03-2024 End: 12-03-[address] Carlos Chris MD Work Phone: [facility] Work Phone: Start: 12-03-2024 End: 12-03-[address] Carlos Chris MD -Outpatient Breast Imaging Work Phone: Start: 12-03-2024 End: 12-03-2024 [facility] Facility[facility] Start: 11-22-2024 End: 11-22-[address] Carlos Chris MD -Laboratory Work Phone: Start: 11-22-2024 End: 11-22-2024 ambulatory [facility] Facility[facility] Start: 11-20-2024 End: 11-20-2024 Patient encounter procedure Kristofer An DO [facility] Work Phone: Start: 11-20-2024 End: 11-20-2024 ambulatory Kristofer An Facility:[facility] Start: 11-20-2024 End: 11-20-2024 ambulatory [facility] Facility:[facility] Start: 11-13-2024 End: 11-13-[address] Carlos Chris MD -Pulmonary Services/Neurology Work Phone: Start: 11-13-2024 End: 11-13-2024 ambulatory [facility] Gerardo Chris Facility:[facility] Start: 10-19-2024 End: 10-19-2024 Admission to same day surgery center Joshua ALVARENGA -[facility] Start: 10-19-2024 End: 10-19-2024 ambulatory [facility] Facility:[facility] Start: 10-17-2024 End: 10-17-2024 ambulatory ALFRED HOOD Facility:[facility] Start: 10-16-2024 ambulatory [facility] Gerardo Aries Facility:[facility] Start: 10-14-2024 Non-patient / Non-visit Dr. Eneida Prince MD -[facility] Work Phone: Start: 10-13-2024 Non-patient / Non-visit Dr. Vicenta Hernandez DO -[facility] Work Phone: Start: 10-13-2024 End: 10-14-2024 ambulatory Vicenta Hernandez Facility:[facility] Start: 10-13-2024 End: 10-14-2024 Evaluation and management of inpatient Dr. Prudencio Prince MD -Progressive Care Unit Work Phone: Start: 10-11-2024 ambulatory Sylvia Broussard Facility :[facility] Start: 09-27-2024 End: 09-27-2024 Telephone encounter Alfred Hood MD Work Phone: Endocrinology Comment on above: Surgical Clearance Start: 09-24-2024 End: 09-24-[address] Carlos Chris MD -Laboratory, Phy Office 3rd Flr Start: 09-24-2024 End: 09-24-2024 ambulatory Carlos Chris Facility:[facility] Start: 09-20-2024 End: 09-24-2024 Admission to same day surgery center Alfred Hood MD Work Phone: Endocrinology Comment on above: Clearance for foot/t oe surgery Start: 09-20-2024 End: 09-24-2024 ambulatory Alfred Hood MD Work Phone: Endocrinology Start: 09-19-2024 End: 09-20-2024 Telephone encounter Alfred Hood MD Work Phone: Endocrinology Comment on above: Care Coordination (P re op clearance) Start: 09-18-2024 End: 09-18-2024 ambulatory ALFRED HOOD Facility:[facility] Start: 09-18-2024 End: 09-18-2024 Patient encounter procedure Alfred Hood MD Work Phone: Endocrinology Comment on above: Postablative hypothy roidism (Primary Dx) Start: 09-17-2024 End: 09-17-[address] Marva Das MD -Radiology, [place] Work Phone: Start: 09-17-2024 End: 09-17-2024 ambulatory Marva Das Facility:[facility] Start: 09-12-2024 End: 09-12-2024 Patient encounter procedure Kristofer An DO -Cat Scan, [facility] Work Phone: Start: 09-12-2024 End: 09-12-2024 ambulatory Kristofer An Facility:[facility] Start: 09-11-2024 End: 09-11-[address] Carlos Chris MD -Laboratory Work Phone: Start: 09-11-2024 End: 09-11-2024 ambulatory Carlos Chris Facility:[facility] Start: 08-22-2024 End: 08-22-2024 Patient encounter procedure Kristofer An DO -[facility] Work Phone: Start: 08-22-2024 End: 08-22-2024 ambulatory Kristofer An Facility:[facility] Start: 08-21-2024 End: 08-21-2024 Patient encounter procedure Kristofer An DO -Laboratory Work Phone: Start: 08-21-2024 End: 08-21-2024 ambulatory Kristofer An Facility:[facility] Start: 08-03-2024 End: 08-03-2024 ambulatory Joshua Chin Facility:[facility] Start: 08-01-2024 End: 08-01-2024 ambulatory Carlos Chi Aries Facility:[facility] Start: 07-23-2024 End: 07-23-2024 ambulatory Joshua Chin Facility:[facility] Start: 07-13-2024 End: 07-13-2024 ambulatory GUDELIA MI Facility:[facility] Start: 07-13-2024 End: 07-13-2024 ambulatory GUDELIA MI Facility:[facility] Start: 07-13-2024 End: 07-13-2024 Subsequent hospital visit by physician [facility] Ws (I-Stat) Work Phone: Cat Scan Comment on above: Elevated AFP [R77.2] Start: 07-12-2024 End: 07-12-2024 ambulatory GUDELIA MI Facility:[facility] Start: 07-05-2024 End: 07-05-2024 ambulatory Joshua Mack Facility:[facility] Start: 07-05-2024 End: 07-05-2024 ambulatory Carlos Chi Aries Facility:[facility] Start: 06-29-2024 End: 06-29-2024 ambulatory Carlos Chi Aries Facility:[facility] Start: 06-28-2024 End: 07-02-2024 Telephone encounter Gudelia Mi MD Work Phone: OB/Gynecology Comment on above: Patient Question Start: 06-27-2024 End: 06-27-2024 ambulatory Carlos Chi Aries Facility:[facility] Start: 06-19-2024 End: 06-19-2024 ambulatory Carlos Chi Aries Facility:[facility] Start: 06-05-2024 End: 06-05-2024 ambulatory Carlos Chi Aries Facility:[facility] Start: 06-03-2024 End: 06-03-2024 ambulatory Carlos Chi Aries Facility:[facility] Start: 05-23-2024 End: 05-23-2024 ambulatory Carlos Chi Aries Facility:[facility] Start: 05-18-2024 End: 05-18-2024 ambulatory Carlos Chi Aries Facility:[facility] Start: 05-18-2024 End: 05-18-2024 ambulatory Carlos Chi Aries Facility:[facility] Start: 04-04-2024 End: 04-04-2024 ambulatory Gino Adalberto Facility:[facility] Start: 04-02-2024 ambulatory Darlin CHAPMAN Facility:[facility] Start: 03-30-2024 End: 03-30-2024 ambulatory Darlin Glez PA Facility:[facility] Start: 03-21-2024 ambulatory Carlos Chi Aries Facility:[facility] Start: 03-19-2024 End: 03-19-2024 ambulatory [facility] Facility:[facility] Start: 01-09-2024 End: 01-09-[address] Carlos Chris Work Phone: [facility] Work Phone: Start: 01-09-2024 End: 01-09-[address] Carlos Chris Work Phone: [facility]Pulmonary Services/Neurology Work Phone: Start: 12-06-2023 End: 12-06-2023 Patient encounter procedure Gudelia Mi MD Work Phone: OB/Gynecology Comment on above: Encounter for screen ing mammogram for malignant neoplasm of breast (Primary Dx); Pelvic pain in female; Encounter for screening for malignant neoplasm of colon Start: 12-01-2023 End: 12-01-[address] Carlos Chris Work Phone: [facility] Work Phone: Start: 12-01-2023 End: 12-01-[address] Carlos Chris Work Phone: [facility]Outpatient Breast Imaging Work Phone: Start: 11-24-2023 End: 11-24-2023 Office outpatient visit 25 minutes Anaid Garsia MD Work Phone: [facility] Office Building Comment on above: Abnormal intestinal absorption (Primary Dx); Hyperparathyroidism (CMS/HCC); Vitamin D deficiency; Nonalcoholic steatohepatitis; S/P gastric bypass Start: 11-24-2023 End: 11-24-2023 ambulatory [facility] Ambulatory Start: 11-23-2023 End: 11-23-[address] Carlos Chris Work Phone: [facility] Gastroenterology Work Phone: Start: 11-23-2023 End: 11-23-[address] Carlos Chris Work Phone: [facility] Endocrinology Work Phone: Start: 11-21-2023 End: 11-21-[address] Carlos Chris Work Phone: [facility] Work Phone: Start: 11-21-2023 End: 11-21-[address] Carlos Chris Work Phone: [facility]-Laboratory, Phy Office 3rd Flr Start: 10-26-2023 End: 10-26-[address] Carlos Chris Work Phone: [facility] Work Phone: Start: 10-26-2023 End: 10-26-[address] Carlos Chris Work Phone: [facility] Services/Neurology Work Phone: Start: 10-25-2023 End: 10-25-[address] Carlos Chris Work Phone: [facility] Work Phone: Start: 10-25-2023 End: 10-25-[address] Carlos Chris Work Phone: [facility]-Laboratory Work Phone: Start: 10-06-2023 End: 10-06-[address] Carlos Chris Work Phone: [facility] Work Phone: Start: 10-04-2023 End: 10-04-[address] Carlos Chris Work Phone: [facility] Work Phone: Start: 10-04-2023 End: 10-04-[address] Carlos Chris Work Phone: [facility] Work Phone: Start: 08-22-2023 End: 08-22-[address] Carlos Chris Work Phone: [facility] Work Phone: Start: 08-22-2023 End: 08-22-[address] Carlos Chris Work Phone: [facility]Pulmonary Services/Neurology Work Phone: Start: 08-04-2023 End: 08-04-2023 Admission to same day surgery center Dr. Carlos Chris Work Phone: [facility] Start: 08-04-2023 End: 08-04-[address] Carlos Chris Work Phone: [facility] Work Phone: Start: 07-21-2023 End: 07-21-[address] Carlos Chris Work Phone: [facility] Work Phone: Start: 07-21-2023 End: 07-21-[address] Carlos Chris Work Phone: [facility] Endocrinology Work Phone: Start: 07-16-2023 End: 07-16-2023 Emergency department patient visit Dr. Carlos Chris Work Phone: [facility]-Emergency Department Work Phone: Start: 06-01-2023 End: 06-01-[address] Carlos Chris Work Phone: [facility] Work Phone: Start: 06-01-2023 End: 06-01-[address] Carlos Chris Work Phone: [facility] Work Phone: Start: 05-30-2023 End: 05-30-2023 Patient encounter procedure Sylvia Ayala Work Phone: Obstetrics/Gynecology Comment on above: Pelvic pain in femal e (Primary Dx) Start: 05-26-2023 (EDUC) EDUCATION ANAID RUY-ALISTAIR [facility] Bariatric Surgery [employer] Start: 05-26-2023 End: 05-26-2023 ambulatory ANAID RUY-ALISTAIR Other [facility] [employer] Other Start: 05-26-2023 Office outpatient vi sit 15 minutes ANAID RUY-ALISTAIR [facility] Bariatric Surgery [employer] Start: 05-25-2023 End: 05-25-2023 ambulatory ANAID RUY-ALISTAIR Other [facility] Other Start: 05-25-2023 Telephone encounter ANAID RUY-ALISTAIR [facility] Bariatric Surgery PBS Start: 05-20-2023 End: 05-20-[address] Carlos Chris Work Phone: [facility] Work Phone: Start: 05-20-2023 End: 05-20-[address] Carlos Chris Work Phone: [facility]-Laboratory, Phy Office 3rd Flr Start: 05-19-2023 End: 05-19-[address] Carlos Chris Work Phone: [facility] Work Phone: Start: 05-19-2023 End: 05-19-[address] Carlos Chris Work Phone: [facility]-Laboratory, Phy Office 3rd Flr Start: 05-11-2023 Telephone encounter Sylvia Bill ow DO Work Phone: Gynecology Comment on above: Medication Question Start: 05-10-2023 Orders Only Sylvia Billow D O Work Phone: Obstetrics/Gynecology Start: 05-09-2023 Telephone encounter Sylvia Bill ow DO Work Phone: [facility] Comment on above: Post Op (Pain) Start: 05-07-2023 ambulatory Sylvia Billow D O Work Phone: Obstetrics/Gynecology Comment on above: Estrogen Start: 05-06-2023 End: 05-06-2023 Orders Only Sylvia Billow DO Work Phone: Obstetrics/Gynecology Comment on above: Post-op pain (Primar y Dx) Start: 05-03-2023 End: 05-04-2023 ambulatory [facility] Facility:[facility] Start: 05-03-2023 Encounter for other preprocedural examination [facility] Start: 04-25-2023 End: 04-25-2023 Patient encounter procedure Sylvia Billow DO Work Phone: Obstetrics/Gynecology Comment on above: Ovarian cyst, left ( Primary Dx); Peritoneal adhesions; Pelvic pain in female; Preop examination Start: 04-25-2023 End: 04-25-2023 Preprocedural examination done Sylvia Billow DO Work Phone: [facility] Work Phone: Start: 04-01-2023 End: 04-01-2023 Admission to same day surgery center Dr. Carlos Chris Work Phone: [facility] Start: 03-24-2023 Telephone encounter Sylvia Bill ow DO Work Phone: Gynecology Comment on above: Appointment Start: 03-23-2023 End: 03-23-2023 Patient encounter procedure Gudelia Mi MD Work Phone: OB/Gynecology Comment on above: Peritoneal adhesions (Primary Dx); Adhesion of omentum; Ovarian cyst, left Start: 03-21-2023 End: 03-21-[address] Carlos Chris Work Phone: [facility] Work Phone: Start: 03-17-2023 End: 03-17-2023 Admission to same day surgery center Dr. Carlos Chris Work Phone: [facility] Start: 03-17-2023 End: 03-17-[address] Carlos Chris Work Phone: [facility] Work Phone: Start: 03-16-2023 End: 03-16-2023 ambulatory ANAID GARSIA Other [facility] Other Start: 03-16-2023 Telephone encounter ANAID GARSIA [facility] Bariatric Surgery [employer] Start: 03-09-2023 End: 03-09-[address] Carlos Chris Work Phone: [facility] Work Phone: Start: 03-09-2023 End: 03-09-[address] Carlos Chris Work Phone: [facility]-Laboratory, Phy Office 3rd Flr Start: 03-09-2023 End: 03-09-2023 Patient encounter procedure uGdelia Mi MD Work Phone: OB/Gynecology Comment on above: Pelvic and perineal pain (Primary Dx); Ovarian cyst, left Start: 03-08-2023 End: 03-08-[address] Carlos Chris Work Phone: [facility] Work Phone: Start: 03-08-2023 End: 03-08-[address] Carlos Chris Work Phone: [facility] Start: 02-25-2023 End: 02-25-[address] Carlos Chris Work Phone: [facility] Work Phone: Start: 02-25-2023 End: 02-25-[address] Carlos Chris Work Phone: [facility]-Laboratory Start: 02-22-2023 Telephone encounter Gudelia Mi MD Work Phone: OB/Gynecology Comment on above: Orders Start: 02-08-2023 Telephone encounter Gudelia Mi MD Work Phone: OB/Gynecology Comment on above: Results Start: 02-02-2023 End: 02-02-[address] Carlos Chris Work Phone: [facility] Work Phone: Start: 02-02-2023 End: 02-02-[address] Carlos Chris Work Phone: [facility]-Laboratory, Phy Office 3rd Kyr Start: 01-17-2023 End: 01-17-[address] Carlos Chris Work Phone: [facility] Endocrinology Start: 01-13-2023 End: 01-13-2023 ambulatory ANAID GARSIA Other [facility]. Other Start: 01-13-2023 Telephone encounter ANAID GARSIA [facility] Bariatric Surgery [employer] Start: 01-10-2023 End: 01-10-[address] Carlos Chris Work Phone: [facility] Work Phone: Start: 01-10-2023 End: 01-10-2023 Patient encounter procedure [facility]Ne[facility]rology Start: 01-07-2023 End: 01-07-[address] Carlos Chris Work Phone: [facility] Work Phone: Start: 01-07-2023 End: 01-07-2023 Patient encounter procedure [facility]Ultrasound, WC Start: 01-06-2023 End: 01-06-2023 ambulatory ANAID COREAR Other [facility] Other Start: 01-06-2023 Telephone encounter ANAID GARSIA [facility] Bariatric Surgery [employer] Start: 01-04-2023 End: 01-04-2023 ambulatory [facility] Work Phone: Start: 01-04-2023 End: 01-04-2023 Patient encounter procedure [facility]Labor[facility] Start: 12-31-2022 End: 01-01-2023 Emergency department patient visit [facility] Start: 12-30-2022 End: 12-30-2022 Patient encounter procedure [facility]Laboratory, Phy Office 3rd Flr Start: 11-30-2022 End: 11-30-2022 ambulatory [facility] Work Phone: Start: 11-30-2022 End: 11-30-2022 Patient encounter procedure [facility]Out[facility] Start: 11-19-2022 End: 11-19-2022 Emergency department patient visit [facility] Start: 11-18-2022 End: 11-18-2022 ambulatory [facility] Work Phone: Start: 11-18-2022 End: 11-18-2022 Patient encounter procedure [facility]Laboratory, Phy Office 3rd Flr Start: 11-01-2022 (EDUC) EDUCATION ANAID GARSIA [facility] Bariatric Surgery [employer] Start: 11-01-2022 End: 11-01-2022 ambulatory ANAID REDMOND-ALISTAIR Other [facility] [employer] Other Start: 11-01-2022 Postop follow up vis it related to original px STARR JENNIFER [facility] Bariatric Surgery [employer] Start: 11-01-2022 Telephone encounter ANAID RUYKENNYR [facility] Bariatric Surgery [employer] Start: 10-20-2022 (EDUC) EDUCATION ANAIDRa REDMOND-ALISTARI [facility] Bariatric Surgery [employer] Start: 10-20-2022 End: 10-20-2022 ambulatory ANAID REDMOND-ALISTAIR Other [facility] Other Start: 10-18-2022 (EDUC) EDUCATION ANAIDRa REDMONDALISTAIR [facility] Bariatric Surgery [employer] Start: 10-18-2022 End: 10-18-2022 ambulatory STARR FISTEK Other [facility] Other Start: 10-18-2022 Postop follow up vis it related to original px STARR FISTEK [facility] Bariatric [facility] [employer] Start: 10-14-2022 End: 10-14-2022 ambulatory [facility] Work Phone: Start: 10-14-2022 End: 10-14-2022 Patient encounter procedure [facility]Neurology Start: 10-05-2022 [facility] Start: 10-05-2022 End: 10-05-2022 ambulatory ANAID REDMOND-ALISTAIR Other [facility] Other Start: 10-05-2022 Postop follow up vis it related to original px STARR FISTEK [facility] Bariatric Surgery [employer] Start: 09-24-2022 End: 09-24-2022 ambulatory STARR GINAEK Other [facility] Other Start: 09-24-2022 Telephone encounter STARR Hirsch [facility] Bariatric Surgery [employer] Start: 09-22-2022 (EDUC) EDUCATION ANAID RUY-ALISTAIR [facility] Bariatric Surgery [employer] Start: 09-22-2022 End: 09-22-2022 ambulatory ANAID RUY-ALISTAIR Other [facility]. Other Start: 09-21-2022 (EDUC) EDUCATION ANAID RUY-ALISTAIR [facility] Bariatric Surgery [employer] Start: 09-21-2022 End: 09-21-2022 ambulatory ANAID RUY-ALISTAIR Other [facility] Other Start: 09-20-2022 Admission to [facility] Start: 09-20-2022 End: 09-20-2022 ambulatory ANAID RUY-ALISTAIR Other [facility] Other Start: 09-20-2022 End: 09-22-2022 Evaluation and management of inpatient ANAID RUY-ALISTAIR Facility:UNKNOWN Start: 09-17-2022 ambulatory OTHER PCP Facility:[facility] Start: 09-17-2022 Encounter for other preprocedural examination AYALA BUNCH Facility:UNKNOWN Start: 08-30-2022 (EDUC) EDUCATION ANAID REDMOND-ALISTAIR [facility] Bariatric Surgery [employer] Start: 08-30-2022 End: 08-30-2022 ambulatory ANAID RUY-ALISTAIR Other [facility] Other Start: 08-26-2022 (EDUC) EDUCATION STARR MCGINNIS L [facility] Bariatric Surgery [employer] Start: 08-26-2022 Encounter for other preprocedural examination [facility] Bariatric [facility] [employer] Start: 08-26-2022 Office outpatient vi sit 15 minutes [facility] Bariatric Surgery [employer] Start: 08-26-2022 End: 08-26-2022 ambulatory [facility] Other Start: 08-25-2022 Preprocedural examination done STARR MCGINNIS Other [facility] [employer] Other Start: 08-20-2022 (VCK) Virtual Check in Audio Only ANAID RUY-ALISTAIR [facility] Bariatric [facility] [employer] Start: 08-20-2022 End: 08-20-2022 ambulatory ANAID RUY-ALISTAIR Other [facility] Other Start: 08-12-2022 End: 08-12-2022 ambulatory ANAID RUY-ALISTAIR Other [facility] Other Start: 08-12-2022 Telephone encounter ANAID RUY-ALISTAIR [facility] Bariatric Surgery [employer] Start: 08-11-2022 (EST30) Est Pt 30 min ANAID RUY-ALISTAIR [facility] Bariat[facility] Start: 08-11-2022 End: 08-11-2022 ambulatory ANAID RUY-ALISTAIR Other [facility] Other Start: 08-11-2022 Telephone encounter ANAID RUY-ALISTAIR [facility] Bariatric Surgery [employer] Start: 08-10-2022 End: 08-10-2022 Admission to same day surgery center Dr. Carlos Chris Work Phone: [facility] Start: 08-10-2022 End: 08-10-[address] Carlos Chris Work Phone: [facility] Work Phone: Start: 07-23-2022 (VCK) Virtual Check in Audio Only ANAID RUY-ALISTAIR [facility] Bariatric Surgery [employer] Start: 07-23-2022 End: 07-23-2022 ambulatory ANAID RUY-ALISTAIR Other [facility] [employer] Other Start: 07-20-2022 End: 07-20-2022 ambulatory ANAID RUY-ALISTAIR Other [facility] [employer] Other Start: 07-20-2022 Telephone encounter ANAID RUY-ALISTAIR [facility] Bariatric Surgery [facility] Start: 07-15-2022 End: 07-15-2022 ambulatory ANAID RUY-ALISTAIR Other [facility] [employer] Other Start: 07-15-2022 Telephone encounter ANAID RUY-ALISTAIR [facility] Bariatric Surgery [employer] Start: 07-15-2022 End: 07-15-[address] Carlos Chris Work Phone: [facility]-Laboratory, Phy Office 3rd Kyr Start: 07-13-2022 End: 07-13-[address] Carlos Chris Work Phone: [facility] Work Phone: Start: 07-13-2022 End: 07-13-[address] Carlos Chris Work Phone: [facility]/Neurology Start: 07-09-2022 (EDUC) EDUCATION ANAID RUY-ALISTAIR [facility] Bariatric Surgery [employer] Start: 07-09-2022 End: 07-09-2022 ambulatory ANAID RUY-ALISTAIR Other [facility] [employer] Other Start: 06-29-2022 (EDUC) EDUCATION ANAID RUY-ALISTAIR [facility] Start: 06-29-2022 End: 06-29-2022 ambulatory ANAID RUY-ALISTAIR Other [facility] [employer] Other Start: 06-23-2022 (EDUC) EDUCATION ANAID RUY-ALISTAIR [facility] Start: 06-23-2022 End: 06-23-2022 ambulatory OTHER PCP [facility] Other Start: 06-23-2022 Office outpatient vi sit 15 minutes ZANDRA DONCA [facility] Bariatric Surgery [employer] Start: 06-18-2022 End: 06-18-[address] Carlos Chris Work Phone: [facility] Work Phone: Start: 06-18-2022 End: 06-18-[address] Carlos Chris Work Phone: [facility]-Laboratory Start: 06-16-2022 (EDUC) EDUCATION ANAID RUY-ALISTAIR [facility] Start: 06-16-2022 End: 06-16-2022 ambulatory ANAID RUY-ALISTAIR Other [facility] [employer] Other Start: 06-08-2022 (EDUC) EDUCATION ANAID RUY-ALISTAIR [facility] Start: 06-08-2022 End: 06-08-2022 ambulatory ANAID RUY-ALISTARI Other [facility] [employer] Other Start: 05-31-2022 (EDUC) EDUCATION ANAID RUY-ALISTAIR [facility] Start: 05-31-2022 End: 05-31-2022 ambulatory ANAID RUY-ALISTAIR Other [facility] [employer] Other Start: 05-27-2022 (EDUC) EDUCATION ANAID URY-ALISTAIR [facility] Start: 05-27-2022 End: 05-27-2022 ambulatory ZANDRA DONCA Other [facility] [employer] Other Start: 05-27-2022 Office outpatient ne w 45 minutes ANAID RUY-ALISTAIR [facility] Bariatric Surgery [employer] Start: 05-27-2022 Office outpatient vi sit 15 minutes ZANDRA DONCA [facility] B[facility] Start: 05-25-2022 End: 05-25-[address] Carlos Chris [facility] Start: 05-24-2022 (EDUC) EDUCATION ANAID RUY-ALISTAIR [facility] Bariatric Surgery [employer] Start: 05-24-2022 End: 05-24-2022 ambulatory ANAID RUY-ALISTAIR Other [facility] [employer] Other Start: 05-18-2022 End: 05-18-2022 ambulatory ANAID RUY-ALISTAIR Other [facility] Other Start: 05-18-2022 Telephone encounter ANAID RUY-ALISTAIR [facility] Bariatric Surgery [employer] Start: 05-07-2022 End: 05-07-[address] Carlos Chris Work Phone: [facility]edic [facility] Start: 05-05-2022 (TELEV) [facility] Start[facility] 05-05-2022 End: 05-05-2022 ambulatory ZANDRA PORTILLO Other [facility] [employer] Other Start: 04-27-2022 End: 04-27-[address] Carlos Chris Work Phone: [facility]-Laboratory, Phy Office 3rd Kyr Start: 04-14-2022 (EDUC) EDUCATION ANAID RUY-ALISTAIR [facility] Bariatric Surgery [employer] Start: 04-14-2022 End: 04-14-2022 ambulatory ANAID RUY-ALISTAIR Other [facility] [employer] Other Start: 04-05-2022 (EDUC) EDUCATION ANAID RUY-ALISTAIR [facility] Bariatric Surgery [facility] Start: 04-05-2022 End: 04-05-2022 ambulatory ANAID RUY-ALISTAIR Other [facility] [employer] Other Start: 03-29-2022 (EDUC) EDUCATION ANAID RUY-ALISTAIR [facility] Bariatric Surgery [facility] Start: 03-29-2022 End: 03-29-2022 ambulatory ANAID RUY-ALISTAIR Other [facility] [employer] Other Start: 03-19-2022 End: 03-19-[address] Carlos Chris Work Phone: [facility] Start: 03-17-2022 End: 03-17-[address] Carlos Chris Work Phone: [facility] Start: 03-17-2022 (TELEV) TELEVIST ZANDRA JASSONDEVI [facility] Bariatric Surgery [employer] Start: 03-17-2022 End: 03-17-2022 ambulatory ANAID RUY-ALISTAIR Other [facility] [employer] Other Start: 03-17-2022 Telephone encounter ANAID RUY-ALISTAIR [facility] Bariatric Surgery [facility] Start: 03-10-2022 (EDUC) EDUCATION ANAID RUY-ALISTAIR [facility] Bariatric Surgery [facility] Start: 03-10-2022 End: 03-10-2022 ambulatory ANAID RUY-ALISTAIR Other [facility] [employer] Other Start: 03-10-2022 End: 03-10-[address] Carlos Chris Work Phone: [facility] Endocrinology Start: 03-09-2022 End: 03-09-[address] Carlos Chris Work Phone: [facility] Start: 03-02-2022 (EDUC) EDUCATION ANAID RUY-ALISTAIR [facility] Bariatric Surgery PBS Start: 03-02-2022 End: 03-02-2022 ambulatory ANAID RUY-ALISTAIR Other [facility] Other Start: 03-02-2022 Office outpatient vi sit [facility] Start: 02-22-2022 (EDUC) EDUCATION ANAID RUY-ALISTAIR [facility] Bariatric [facility] PBS Start: 02-22-2022 End: 02-22-2022 ambulatory ANAID RUY-ALISTAIR Other [facility] Other Start: 02-17-2022 (EDUC) EDUCATION ANAID RUY-ALISTAIR [facility] Bariatric Surgery PBS Start: 02-17-2022 End: 02-17-2022 ambulatory ANAID RUY-ALISTAIR Other [facility] Other Start: 02-16-2022 End: 02-16-2022 ambulatory ANAID RUY-ALISTAIR Other [facility] Other Start: 02-16-2022 Telephone encounter ANAID RUY-ALISTAIR [facility] Bariatric Surgery PBS Start: 02-11-2022 Non-patient / Non-visit Dr. Ric Chris Work Phone: [facility] Start: 02-11-2022 End: 02-11-[address] Carlos Chris Work Phone: [facility] Start: 02-10-2022 (EDUC) EDUCATION ANAID RUY-ALISTAIR [facility] Bariatric Surgery PBS Start: 02-10-2022 End: 02-10-2022 ambulatory ANAID RUY-ALISTAIR Other [facility] Other Start: 02-02-2022 (EDUC) EDUCATION ANAID RUY-ALISTAIR [facility] Bariatric [facility] PBS Start: 02-02-2022 End: 02-02-2022 ambulatory ZANDRAFARZANEH PORTILLO [facility] Other Start: 02-02-2022 Encounter for other [facility]procedural [facility] Start: 02-02-2022 Office outpatient ne w 30 minutes ZANDRA PORTILLO [facility] B[facility] PBS Start: 01-28-2022 (EDUC) EDUCATION ANAID RUY-ALISTAIR [facility] Bariatric Surgery PBS Start: 01-28-2022 End: 01-28-2022 ambulatory ANAID RUY-ALISTAIR Other [facility] Other Start: 01-27-2022 End: 01-27-[address] Carlos Chris Work Phone: [facility] Start: 01-26-2022 ambulatory OTHER PCP Facility:[facility] Start: 01-19-2022 End: 01-19-2022 Subsequent hospital visit by physician Diagnostic Mammo [facility] Mammogram Comment on above: Abnormal screening m ammogram [R92.8] Start: 01-15-2022 End: 01-15-[address] Carlos Chris Work Phone: [facility] 3rd Flr Start: 01-14-2022 End: 01-14-2022 Emergency department patient visit Dr. Carlos Chris Work Phone: [facility] Start: 12-30-2021 End: 12-30-[address] Carlos Chris Work Phone: [facility] Endocrinology Start: 12-29-2021 End: 12-29-[address] Carlos Chris Work Phone: [facility] Start: 10-23-2021 End: 10-23-[address] Carlos Chris Work Phone: [facility] Orthopaedic [facility] Start: 10-15-2021 End: 10-15-[address] Carlos Chris Work Phone: [facility] 3rd Flr Start: 08-22-2015 ambulatory [facility] Medical Re cords Comment on above: Pre Visit Planning Ramona Phillip Start: 08-22-2015 E-mail encounter fro m caregiver [facility] MD Anaid Garsia MD [facility] Procedures Date Procedure Procedure Detail Performing Clinician Start: 02-27-[address] Carlos Chris MD Work Phone: Start: 02-21-2025 Plain X-ray abdomen Dr. Carlos Chris MD Work Phone: Start: 02-21-2025 Albumin/Globulin ratio Dr. Carlos Chris MD Work Phone: Start: 02-21-2025 [address] M measurement [address] Carlos Chris MD Work Phone: Start: 02-21-2025 Serum inorganic phos phate measurement Dr. Carlos Chris MD Work Phone: Start: 01-11-2025 Urnls dip stick/tabl et reagent auto microscopy Dr. Carlos Chris MD Work Phone: Start: 12-03-2024 Screening mammography Ramona Chris MD Work Phone: Start: 11-22-2024 Measurement of renal function Dr. Carlos Chris MD Work Phone: Comment on above: GFR Calc Start: 11-22-[address] Carlos Chris MD Work Phone: Start: 11-20-2024 Albumin/Globulin ratio Dr. Carlos Chris MD Work Phone: Start: 11-20-[address] e fraction Dr. Carlos Chris MD Work Phone: Start: 11-20-[address]24 Immun[address] M measurement Dr. Carlos Chris MD Work Phone: Start: 11-20-2024 Measurement of renal function Dr. Carlos Chris MD Work Phone: Comment on above: GFR Calc Start: 11-20-2024 Total iron binding capacity measurement Dr. Carlos Chris MD Work Phone: Start: 11-13-2024 SARS-CoV-2, Influenz a & RSV (PCR) Dr. Carlos Chris MD Work Phone: Start: 10-19-2024 Fluoroscopic guidance Ramona Chris MD Work Phone: Start: 10-19-2024 End: 10-19-2024 X-ray of foot, two views Dr. Carlos Chris MD Work Phone: Start: 10-13-2024 Computed tomography of abdomen and pelvis with contrast Dr. Carlos Chris MD Work Phone: Start: 10-13-[address] Carlos avalos MD Work Phone: Start: 09-17-2024 Plain X-ray abdomen Dr. Carlos Chris MD Work Phone: Start: 09-12-2024 Biopsy/Inj or Needle Placement Dr. Carlos Chris MD Work Phone: Start: 01-09-2024 SARS-CoV-2, Influenz a & RSV (PCR) Dr. Carlos Chris Work Phone: Start: 12-01-2023 Screening mammography Ramona Chris Work Phone: Start: 10-26-2023 SARS-CoV-2, Influenz a & RSV (PCR) Dr. Carlos Chris Work Phone: Start: 10-04-[address] Carlos Chris Work Phone: Start: 08-22-2023 Coronavirus COVID-[address] Carlos Chris Work Phone: Start: 08-22-2023 Influenza Types A,B Direct FA (VICKIE) Dr. aCrlos Chris Work Phone: Start: 08-22-2023 Respiratory syncytia l virus antigen assay Dr. Carlos Chris Work Phone: Start: 08-04-2023 Cystoscopy and retro grade pyelography Dr. Carlos Chris Work Phone: Start: 08-04-2023 Fluoroscopic guidance Ramona Chris Work Phone: Start: 07-16-2023 CT of abdomen and pe lvis without contrast Dr. Carlos Chris Work Phone: Start: 06-01-2023 Ultrasound elastogra phy of liver Dr. Carlos Chris Work Phone: Start: 05-20-2023 Investigation of transfusion reaction Dr. Carlos Chris Work Phone: Start: 05-20-2023 Microbial culture, routine Dr. Carlos Chris Work Phone: Start: 04-01-2023 X-ray of both feet Dr. Carlos Chris Work Phone: Start: 04-01-2023 Fluoroscopic guidance Ramona Chris Work Phone: Start: 04-01-2023 X-ray of both feet Dr. Carlos Chris Work Phone: Start: 03-17-2023 Laparoscopic, Salpingo-oopherectomy (Bilateral) Dr. Carlos Chris Work Phone: Start: 03-08-2023 MRI of pelvis with contrast Dr. Carlos Chris Work Phone: Start: 01-10-2023 Influenza Types A,B Direct FA (VICKIE) Start: 01-10-2023 Respiratory syncytia l virus antigen assay Start: 01-07-2023 Pelvic echography Start: 01-01-2023 Computed tomography of abdomen and pelvis with contrast Start: 12-31-[address] Carlos avalos Work Phone: Start: 11-30-2022 Screening mammography Start: 11-19-2022 Plain x-ray of hand Start: 11-19-2022 X-ray of radius and ulna Start: 09-20-2022 Completed LAPAROSCOP IC SIMONA EN Y GASTRIC BYPASS, by Felisa Worrell, on 09/20/2022 12:20 PM MD Anaid Garsia MD Start: 08-10-2022 X-ray of both feet Start: 08-10-[address] Carlos jennings Work Phone: Start: 08-10-2022 Fluoroscopic guidance Ramona Chris Work Phone: Start: 08-10-2022 Radiography of foot Start: 05-07-2022 Radiologic examinati on of knee Dr. Carlos Chris Work Phone: Start: 03-17-2022 X-ray of both feet Dr. Carlos Chris Work Phone: Start: 02-11-2022 Radionuclide imaging of perfusion of myocardium under exercise stress Dr. Carlos Chris Work Phone: Start: 02-02-2022 Lipid 1996 panel - S ani or Plasma Anaid Garsia MD Work Phone: Start: 02-02-2022 Thyrotropin [Units/v olume] in Serum or Plasma Anaid Garsia MD Work Phone: Start: 01-19-2022 Us breast uni real t katina with image limited Angle Fagan FUR TANNER.DANG Work Phone: Start: 01-19-2022 VIVIANE DIAG W JORDAN LT Cour haile Fagan FUR TANNER.CNM Work Phone: Start: 01-19-2022 Mammography Anaid ramirze MD Work Phone: Start: 01-14-2022 Plain chest X-ray Dr. Tara Chris Work Phone: Start: 12-14-2021 Mammography Us 1 Work Phone: Start: 10-23-2021 Radiologic examinati on of knee Dr. Carlos Chris Work Phone: Start: 02-10-2017 End: 02-10-2017 Dietary management education, guidance, and counseling Merly Bob NP Start: 02-10-2017 End: 02-10-2017 Thyroid stimulating hormone (TSH) Merly Bob AUDIO ENGINEER Work Phone: Start: 02-10-2017 End: 02-10-2017 Thyroxine (T4) free Merly Bob AUDIO ENGINEER Work Phone: Start: 09-19-2013 Melly moreno [...] or complication Gudelia Mi MD Work Phone: History of appendectomy Hx of appendectom y Dr. Carlos Chris Work Phone: Comment on above: 01/22/2019 Influenza Types A,B Direct FA (VICKIE) Dr. Carlos Chris Work Phone: Influenza Types A,B Direct FA (VICKIE) Influenza Types A,B Direct FA (VICKIE) Respiratory syncytia l virus antigen assay Dr. Carlos Chris Work Phone: Respiratory syncytia l virus antigen assay Respiratory syncytia l virus antigen assay Urine culture Plan of Treatment Date Care Activity Detail Author Start: 2027 Zoster Vaccines (1 of 2) Zoster Vaccines (1 of 2) [facility] Start: 02-02-2027 Lipid panel [facility] Start: 12-29-2026 Screening for malignant neoplasm of colon [facility] Start: 05-03-2026 DIABETES SCREEN DIABETES SCREEN [facility] Start: 05-03-2026 Diabetes Screening Diabetes Screening [facility] Start: 12-21-2025 BP Controlled (<130/80) BP Controlled (<130/80) [facility] Start: 09-18-2025 BP Controlled (<130/80) BP Controlled (<130/80) [facility] Start: 07-12-2025 Creatinine measurement Serum Creatinine [facility] Start: 04-16-2025 End: 04-16-2025 Patient encounter procedure 04/16/2025 11:30 AM EDT Office Visit OB/Gynecology [address] [place], [place] [id number] Gudelia Mi MD [address] [place] [address] Mammo W Jordan/Annual/ OB/Gynecology Comment on above: Mammo W Jordan/Annual/ Start: 03-25-2025 End: 03-25-2025 Patient encounter procedure 03/25/2025 9:00 AM EDT Office Visit Endocrinology [address] [place], [place] [id number] Alfred Hood MD [address] [place], [place] [id number] 3 month f/u-thyroid and hypoglycemia Endocrinology Comment on above: 3 month f/u-thyroid and hypoglycemia Start: 02-04-2025 End: 05-06-2025 Thyrotropin [Units/volume] in Serum or Plasma THYROID STIMULATING HORMONE Lab Routine Postablative hypothyroidism Expected: 02/04/2025, Expires: 05/06/2025 [facility] Work Phone: Comment on above: Expected: 02/04/2025, Expires: Start: 02-04-2025 End: 05-06-2025 Thyroxine (T4) free [Mass/volume] in Serum or Plasma T4 FREE/FREE THYROXINE Lab Routine Postablative hypothyroidism Expected: 02/04/2025, Expires: 05/06/2025 [facility] Comment on above: Expected: 02/04/2025, Expires: Start: 01-04-2025 End: 01-04-2025 Patient encounter procedure Mammogram Comment on above: Mammo W Jordan/Annual Mammo W Jordan/Annual- sahra Spencer Start: 12-21-2024 End: 12-21-2024 Patient encounter procedure 12/21/2024 9:40 AM EDT Office Visit Endocrinology [address] [place], [place] [id number] Alfred Hood MD [address] [address] 9 week follow up for thyroid and hypoglycemia Endocrinology Comment on above: 9 week follow up for thyroid and hypogly cemia Start: 12-07-2024 End: 12-07-2024 Patient encounter procedure Mammogram Comment on above: Mammo W Jordan/Annual Start: 12-06-2024 BP Controlled (<130/80) BP Controlled (<130/80) [facility] Start: 10-19-2024 Anes open proc bones lower leg/ankle/foot nos ANESTH LOWER LEG BONE SURG [facility] Start: 10-19-2024 Correction hammertoe REPAIR OF HAMMERTOE [facility] Start: 10-19-2024 End: 01-18-2025 Thyrotropin [Units/volume] in Serum or Plasma THYROID STIMULATING HORMONE Lab Routine Postablative hypothyroidism Expected: 10/19/2024, Expires: 01/18/2025 [facility] Work Phone: Comment on above: Expected: 10/19/2024, Expires: 5 Start: 10-19-2024 End: 01-18-2025 Thyroxine (T4) free [Mass/volume] in Serum or Plasma T4 FREE/FREE THYROXINE Lab Routine Postablative hypothyroidism Expected: 10/19/2024, Expires: 01/18/2025 [facility] Comment on above: Expected: 10/19/2024, Expires: 5 Start: 10-19-2024 Tr/trnspl 1 tdn w/musc redirion/rerouting dp REVISE LOWER LEG TENDON [facility] Start: 10-19-2024 Application of ice collar, cap or bag [facility] Start: 10-19-2024 Catheterization of vein [facility] Start: 10-19-2024 Elevation of foot of bed [facility] Start: 10-19-2024 Neurovascular assessment [facility] Start: 10-19-2024 Patient discharge [facility] Start: 10-19-2024 Procedure discontinued [facility] Start: 10-19-2024 Vital signs measurements [facility] Start: 10-19-2024 [facility] Start: 10-14-2024 Patient discharge [facility] Start: 10-13-2024 Following clinical pathway protocol [facility] Start: 10-13-2024 Ambulation without limitation [facility] Start: 10-13-2024 Assessment of risk of venous thromboembolism [facility] Start: 10-13-2024 Enteric precautions [facility] Start: 10-13-2024 Incentive spirometry [facility] Start: 10-13-2024 Inhalation therapy procedure [facility] Start: 10-13-2024 Insertion of catheter into peripheral vein [facility] Start: 10-13-2024 Measuring intake and output [facility] Start: 10-13-2024 Oxygen therapy [facility] Start: 10-13-2024 Providing care according to standard [facility] Start: 10-13-2024 Referral to service [facility] Start: 10-13-2024 [facility] Start: 10-13-2024 Admission procedure [facility] Start: 10-13-2024 Enteric precautions [facility] Start: 10-13-2024 Patient referral to dietitian [facility] Start: 09-12-2024 Biopsy liver needle percutaneous NEEDLE BIOPSY OF LIVER PERQ [facility] Start: 09-12-2024 Following clinical pathway protocol [facility] Start: 09-12-2024 Catheterization of vein [facility] Start: 09-12-2024 Oxygen therapy [facility] Start: 09-12-2024 Patient discharge [facility] Start: 09-12-2024 Vital signs measurements [facility] Start: 07-02-2024 End: 10-01-2024 CREATININE BLD CREATININE BLD Lab Routine Elevated AFP Abnormal tumor markers Expected: 07/02/2024, Expires: 10/01/2024 [facility] Comment on above: Expected: 07/02/2024, Expires: Start: 06-10-2024 Covid-19 Vaccine () Covid-19 Vaccine () [facility] Start: 06-10-2024 Influenza vaccination Influenza Vaccine (#1) [facility] Start: 06-05-2024 End: 12-06-2024 25-hydroxyvitamin D3 [Mass/volume] in Serum or Plasma Vitamin D 25-Hydroxy,Total (for eval of Vitamin D levels) Lab Routine Abnormal intestinal absorption Expected: 06/05/2024, Expires: 12/06/2024 [facility] Work Phone: Comment on above: Expected: 06/05/2024, Expires: Start: 06-05-2024 End: 12-06-2024 CBC W Auto Differential panel - Blood CBC and Auto Differential Lab Routine Abnormal intestinal absorption Expected: 06/05/2024 (Approximate), Expires: 12/06/2024 [facility] Service Area Work Phone: Comment on above: Expected: 06/05/2024 (Approximate), Expi res: 12/06/2024 Start: 06-05-2024 End: 12-06-2024 Cobalamin (Vitamin B12) [Mass/volume] in Serum or Plasma Vitamin B12 Lab Routine Abnormal intestinal absorption Expected: 06/05/2024 (Approximate), Expires: 12/06/2024 [facility] Work Phone: Comment on above: Expected: 06/05/2024 (Approximate), Expi res: 12/06/2024 Start: 06-05-2024 End: 12-06-2024 Comprehensive metabolic 2000 panel - Serum or Plasma Comprehensive Metabolic Panel Lab Routine Abnormal intestinal absorption Expected: 06/05/2024 (Approximate), Expires: 12/06/2024 [facility] Work Phone: Comment on above: Expected: 06/05/2024 (Approximate), Expi res: 12/06/2024 Start: 06-05-2024 End: 12-06-2024 Copper [Mass/volume] in Serum or Plasma Copper, Blood Lab Routine Abnormal intestinal absorption Expected: 06/05/2024 (Approximate), Expires: 12/06/2024 [facility] Work Phone: Comment on above: Expected: 06/05/2024 (Approximate), Expi res: 12/06/2024 Start: 06-05-2024 End: 12-06-2024 Ferritin [Mass/volume] in Serum or Plasma Ferritin Lab Routine Abnormal intestinal absorption Expected: 06/05/2024 (Approximate), Expires: 12/06/2024 [facility] Work Phone: Comment on above: Expected: 06/05/2024 (Approximate), Expi res: 12/06/2024 Start: 06-05-2024 End: 12-06-2024 Folate [Mass/volume] in Serum or Plasma Folate Lab Routine Abnormal intestinal absorption Expected: 06/05/2024 (Approximate), Expires: 12/06/2024 [facility] Work Phone: Comment on above: Expected: 06/05/2024 (Approximate), Expi res: 12/06/2024 Start: 06-05-2024 End: 12-06-2024 Iron and Iron binding capacity panel - Serum or Plasma Iron and TIBC Lab Routine Abnormal intestinal absorption Expected: 06/05/2024 (Approximate), Expires: 12/06/2024 [facility] Work Phone: Comment on above: Expected: 06/05/2024 (Approximate), Expi res: 12/06/2024 Start: 06-05-2024 End: 12-06-2024 Parathyrin.intact [Mass/volume] in Serum or Plasma Parathyroid Hormone, Intact Lab Routine Abnormal intestinal absorption Expected: 06/05/2024 (Approximate), Expires: 12/06/2024 [facility] Work Phone: Comment on above: Expected: 06/05/2024 (Approximate), Expi res: 12/06/2024 Start: 06-05-2024 End: 12-06-2024 Thiamine pyrophosphate [Moles/volume] in Blood Vitamin B1, Whole Blood Lab Routine Abnormal intestinal absorption Expected: 06/05/2024 (Approximate), Expires: 12/06/2024 [facility] Work Phone: Comment on above: Expected: 06/05/2024 (Approximate), Expi res: 12/06/2024 Start: 06-05-2024 End: 12-06-2024 Zinc [Mass/volume] in Serum or Plasma Zinc, Serum or Plasma Lab Routine Abnormal intestinal absorption Expected: 06/05/2024 (Approximate), Expires: 12/06/2024 [facility] Work Phone: Comment on above: Expected: 06/05/2024 (Approximate), Expi res: 12/06/2024 Start: 05-30-2024 BP CONTROLLED (<130/80) BP CONTROLLED (<130/80) [facility] Start: 05-03-2024 Creatinine measurement Serum Creatinine [facility] Start: 05-03-2024 SERUM CREATININE SERUM CREATININE [facility] Start: 03-23-2024 BP CONTROLLED (<130/80) BP CONTROLLED (<130/80) [facility] Start: 03-09-2024 BP CONTROLLED (<130/80) BP CONTROLLED (<130/80) [facility] Start: 02-21-2024 DTaP/Tdap/Td Vaccines (3 - Td or Tdap) DTaP/Tdap/Td Vaccines (3 - Td or Tdap) [facility] Start: 02-21-2024 Urine microalbumin profile DTaP,Tdap,Td Vaccine (3 - Td or Tdap) [facility] Start: 02-04-2024 BP CONTROLLED (<130/80) BP CONTROLLED (<130/80) [facility] Start: 01-12-2024 End: 01-12-2024 Patient encounter procedure 01/12/2024 10:30 AM EDT Office Visit [facility] Office Building [id number] [place] [id number] [place] [address] [place] [address] [facility] Office Building Start: 11-21-2023 Thiamine measurement [facility] Start: 08-04-2023 Anes transurethral w/urethrocystoscopy nos ANESTH BLADDER SURGERY [facility] Start: 08-04-2023 Cysto w/insert ureteral stent CYSTOSCOPY AND TREATMENT [facility] Start: 08-04-2023 Patient discharge [facility] Start: 07-16-2023 [facility] Start: 06-10-2023 Influenza vaccination [facility] Start: 06-01-2023 Liver elastography w/o imag w/i&r LIVER ELASTOGRAPHY [facility] Start: 05-19-2023 Thiamine measurement [facility] Start: 04-01-2023 Anes open proc bones lower leg/ankle/foot nos ANESTH LOWER LEG BONE SURG [facility] Start: 04-01-2023 Arthrodesis great toe metatarsophalangeal joint FUSION OF BIG TOE JOINT [facility] Start: 04-01-2023 Removal implant deep REMOVAL OF SUPPORT IMPLANT [facility] Start: 04-01-2023 Tenolysis extensor foot single tendon RELEASE OF FOOT TENDON [facility] Start: 04-01-2023 Application of ice collar, cap or bag [facility] Start: 04-01-2023 Catheterization of vein [facility] Start: 04-01-2023 Elevation of foot of bed [facility] Start: 04-01-2023 Neurovascular assessment [facility] Start: 04-01-2023 Patient discharge [facility] Start: 04-01-2023 Procedure discontinued [facility] Start: 04-01-2023 Vital signs measurements [facility] Start: 04-01-2023 [facility] Start: 03-25-2023 [facility] Start: 03-17-2023 Anes intraperitoneal upper abdomen w/laps nos ANESTH SURG UPPER ABDOMEN [facility] Start: 03-17-2023 Laps abd prtm&omentum dx w/wo spec br/wa spx DIAG LAPARO SEPARATE PROC [facility] Start: 03-17-2023 Patient discharge [facility] Start: 03-17-2023 Ambulation without limitation [facility] Start: 03-17-2023 Medical regimen orders management [facility] Start: 03-17-2023 Medication education [facility] Start: 03-17-2023 Taking patient vital signs [facility] Start: 03-17-2023 Vital signs measurements [facility] Start: 03-17-2023 [facility] Start: 02-08-2023 End: 04-10-2023 Cancer Ag 19-9 [Units/volume] in Serum or Plasma [facility] Work Phone: Comment on above: Expected: 02/08/2023, Expires: 3 Start: 02-08-2023 End: 04-10-2023 Carcinoembryonic Ag [Mass/volume] in Serum or Plasma [facility] Work Phone: Comment on above: Expected: 02/08/2023, Expires: 3 Start: 02-02-2023 Diabetes mellitus screening Diabetes Screening [facility] Start: 02-02-2023 Thyroid stimulating hormone measurement TSH Level [facility] Start: 01-19-2023 Screening for malignant neoplasm of breast Mammogram [facility] Start: 01-10-2023 Sars-cov-2 detection by dna/rna SARS-COV-2 COVID-19 AMP PRB [facility] Start: 12-31-2022 [facility] Start: 12-30-2022 Thiamine measurement [facility] Start: 12-14-2022 Mammography MAMMOGRAM [facility] Start: 12-14-2022 Screening for malignant neoplasm of breast Mammogram Screening [facility] Start: 10-23-2022 Urine microalbumin profile DTAP,TDAP,TD (2 - Td or Tdap) [facility] Start: 10-14-2022 Sars-cov-2 detection by dna/rna SARS-COV-2 COVID-19 AMP PRB [facility] Start: 2022 COLOGUARD (FIT-DNA) COLOGUARD (FIT-DNA) [facility] Start: 2022 Colonoscopy COLONOSCOPY [facility] Start: 2022 COLORECTAL CANCER SCREENING COLORECTAL CANCER SCREENING [facility] Start: [address] COLONOGRAPHY [facility] Start: 2022 DIABETES SCREEN DIABETES SCREEN [facility] Start: 2022 FECAL OCCULT BLOOD FECAL OCCULT BLOOD [facility] Start: 2022 LIPID SCREEN LIPID SCREEN [facility] Start: 2022 Screening for malignant neoplasm of colon [facility] Start: 2022 SIGMOIDOSCOPY SIGMOIDOSCOPY [facility] Start: 09-06-2022 COVID-19 VACCINE (5 - Booster for Pfizer series) COVID-19 VACCINE (5 - Booster for Pfizer series) [facility] Start: 09-06-2022 COVID-19 VACCINE (5 - Pfizer series) COVID-19 VACCINE (5 - Pfizer series) [facility] Start: 08-10-2022 Anes open proc bones lower leg/ankle/foot nos ANESTH LOWER LEG BONE SURG [facility] Start: 08-10-2022 Arthrodesis great toe metatarsophalangeal joint FUSION OF BIG TOE JOINT [facility] Start: 08-10-2022 Osteot w/wo lngth shrt/corrj 1st metar INCISION OF METATARSAL [facility] Start: 08-10-2022 X-ray of both feet Foot min 3 Views [facility] Work Phone: Start: 08-10-2022 XR Foot GE 3 Views [facility] Work Phone: Start: 08-10-2022 Application of ice collar, cap or bag [facility] Start: 08-10-2022 Catheterization of vein [facility] Start: 08-10-2022 Elevation of foot of bed [facility] Start: 08-10-2022 Neurovascular assessment [facility] Start: 08-10-2022 Patient discharge [facility] Start: 08-10-2022 Procedure discontinued [facility] Start: 08-10-2022 Provision of mobility device [facility] Start: 08-10-2022 Vital signs measurements [facility] Start: 08-10-2022 [facility] Start: 08-10-2022 Radiography of foot Foot 2 Views [facility] Work Phone: Start: 08-10-2022 XR Foot 2 Views [facility] Work Phone: Start: 07-13-2022 Sars-cov-2 detection by dna/rna SARS-COV-2 COVID-19 AMP PRB [facility] Work Phone: Start: 03-17-2022 Patient referral [facility] Work Phone: Start: 01-14-2022 [facility] Work Phone: Start: 04-13-2017 End: 04-13-2017 Appointment [facility] Work Phone: Start: 04-13-2017 End: 04-13-2017 Appointment Appointment [facility] Work Phone: Start: 02-10-2017 End: 02-10-2017 Appointment Appointment [facility] Work Phone: Start: 02-10-2017 End: 02-10-2017 Thyroid stimulating hormone (TSH) *TSH [facility] Work Phone: Start: 02-10-2017 End: 02-10-2017 Thyroxine (T4) free *T4 free [facility] Work Phone: Start: 02-10-2017 End: 02-10-2017 Us exam of head and neck US Thyroid (Soft tissue neck) [facility] Work Phone: Start: 10-19-2016 PNEUMOCOCCAL (2 - PPSV23 if available, else PCV20) PNEUMOCOCCAL (2 - PPSV23 if available, else PCV20) [facility] Start: 10-19-2016 PNEUMOCOCCAL (2 - PPSV23 or PCV20) PNEUMOCOCCAL (2 - PPSV23 or PCV20) [facility] Start: 09-22-2016 End: 09-27-2016 Follow-up visit Follow Up as needed [facility] Work Phone: Start: 09-22-2016 End: 10-08-2016 Primary Care Physician Primary Care Physician Carlos Chris, [employer] [facility], [address], [place], [address] [facility] Work Phone: Start: 09-11-2010 End: 09-11-2010 Follow up Appt 1 week Follow up Appt 1 week [facility] Work Phone: Start: 08-28-2010 End: 08-28-2010 Follow Up as scheduled Follow Up as scheduled [facility] Work Phone: Start: 08-21-2010 End: 08-25-2010 Assay of free thyroxine *T4 free [facility] Work Phone: Start: 08-21-2010 End: 08-25-2010 Free assay (FT-3) *T3-Free [facility] Work Phone: Start: 08-21-2010 End: 08-25-2010 Thyroid stimulating hormone (TSH) *TSH [facility] Work Phone: Start: 08-13-2010 End: 08-14-2010 Follow Up Appt 1 month Follow Up Appt 1 month [facility] Work Phone: Start: 08-13-2010 End: 08-19-2010 Manual cell count, each *CBC with Differential [facility] Work Phone: Start: 07-29-2010 End: 11-22-2011 EMG EMG [facility] Work Phone: Start: 07-29-2010 End: 08-14-2010 Nerve Conduction Nerve Conduction [facility] Work Phone: Start: 07-27-2010 End: 07-28-2010 Complete cbc, automated *CBC without Diff [facility] Work Phone: Start: 07-27-2010 End: 07-28-2010 Comprehen metabolic panel *CMP Complete Metabolic Panel [facility] Work Phone: Start: 07-27-2010 End: 08-14-2010 Follow Up Appt 2 weeks Follow Up Appt 2 weeks [facility] Work Phone: Start: 07-27-2010 End: 07-28-2010 Lipid panel *Lipid Profile [facility] Work Phone: Start: 07-27-2010 End: 07-28-2010 Protein mass conc *Lipid Profile [facility] Work Phone: Start: 07-27-2010 End: 07-28-2010 Thyroid stimulating hormone (TSH) *TSH [facility] Work Phone: Start: 07-27-2010 End: 07-28-2010 Urinalysis, nonauto w/scope *Urinalysis [facility] Work Phone: Start: 1998 Screening for malignant neoplasm of [facility] Start: 1996 Hepatitis B Vaccine (1 of 3 - 19+ 3-dose series) Hepatitis B Vaccine (1 of 3 - 19+ 3-dose series) [facility] Start: 1995 ANNUAL PCP TEAM CHRONIC DISEASE VISIT ANNUAL PCP TEAM CHRONIC DISEASE VISIT [facility] Start: 1995 Anxiety Screening Anxiety Screening [facility] Start: 1995 BP CONTROLLED (<130/80) BP CONTROLLED (<130/80) [facility] Start: 1995 Hepatitis C screening Hepatitis C Screening [facility] Start: 1978 MMR Vaccines (1 of 1 - Standard series) MMR Vaccines (1 of 1 - Standard series) [facility] Start: 1977 HEPATITIS B (1 of 3 - 3-dose series) HEPATITIS B (1 of 3 - 3-dose series) [facility] Start: 1977 Hepatitis B Vaccine (1 of 3 - 3-dose series) Hepatitis B Vaccine (1 of 3 - 3-dose series) [facility] Start: 1977 Hepatitis B Vaccines (1 of 3 - 3-dose series) Hepatitis B Vaccines (1 of 3 - 3-dose series) [facility] Start: 1977 HIV screening HIV Screening [facility] Start: 1977 Screening for malignant neoplasm of colon [facility] Start: 1977 Yearly Adult Physical Yearly Adult Physical [facility] Acute hepatitis 2000 panel - Serum [facility] [id number]. tumor marker [Units/volume] in Serum or Plasma [facility] Amylase [Enzymatic activity/volume] in Serum or Plasma [facility] Angiotensin converti ng enzyme [Enzymatic activity/volume] in Serum or Plasma [facility] Bacteria identified in Urine by Culture Urine Culture [facility] Blood chemistry [facility] C reactive protein [Mass/volume] in Serum or Plasma [facility] C reactive protein [Mass/volume] in Serum or Plasma [facility] CBC W Auto Different ial panel - Blood [facility] CBC W Auto Different ial panel - Blood [facility] Ceruloplasmin [Mass/ volume] in Serum or Plasma [facility] COLOGUARD COLOGUARD Lab Ro garima Encounter for screening for malignant neoplasm of colon Ordered: 12/06/2023 [facility] Work Phone: Comment on above: Ordered: 12/06/2023 Comprehensive metabo lic 2000 panel - Serum or Plasma [facility] Copper [Moles/volume ] in Serum or Plasma [facility] Copper [Moles/volume ] in Serum or Plasma [facility] Copper [Moles/volume ] in Serum or Plasma [facility] Copper [Moles/volume ] in Serum or Plasma [facility] End: 08-01-2025 CT Pelvis W contrast IV CT PELVIS W IVCON Radiology Routine Elevated AFP Abnormal tumor markers 1 Occurrences starting 07/02/2024 until 08/01/2025 [facility] Work Phone: Comment on above: 1 Occurrences starting 07/02/2024 until 08/01/2025 CT Pelvis W contrast IV CT PELVI S W IVCON Radiology Routine Elevated AFP Abnormal tumor markers 07/13/2024 11:44 AM EDT [facility] Work Phone: Cytoplasmic ANCA Screen [facility] End: 01-04-2025 DBT Breast - bilateral screening VIVIANE SCREENING W JORDAN Radiology Routine Encounter for screening mammogram for malignant neoplasm of breast 1 Occurrences starting 12/06/2023 until 01/04/2025 [facility] Work Phone: Comment on above: 1 Occurrences starting 12/06/2023 until 01/04/2025 Erythrocyte sediment ation rate [facility] Ferritin [Mass/volum e] in Serum or Plasma [facility] Folate [Moles/volume ] in Serum or Plasma [facility] H&P for surgery H&P FOR SURGERY Procedures Routine Pelvic pain in female Ordered: 04/25/2023 [facility] Work Phone: Comment on above: Ordered: 04/25/2023 Haptoglobin [Mass/vo lume] in Serum or Plasma [facility] Hemoglobin A1c/Hemoglobin.total in Blood [facility] HIV 1+2 Ab+HIV1 p24 Ag [Presence] in Serum or Plasma by Immunoassay [facility] Iron and Iron bindin g capacity panel - Serum or Plasma [facility] Lactate dehydrogenas e measurement [facility] Lactate dehydrogenas e measurement [facility] Lipid 1996 panel - S ani or Plasma [facility] Liver stiffness by US.transient elastography [facility] Mitochondria Ab [Pre sence] in Serum [facility] End: 03-09-2024 Mri pelvis w/o & w/contrast material MRI PELVIS WO/W IVCON Radiology Routine Pelvic and perineal pain 1 Occurrences starting 02/08/2023 until 03/09/2024 [facility] Work Phone: Comment on above: 1 Occurrences starting 02/08/2023 until 03/09/2024 Patient Education [facility] docrinology Work Phone: Patient referral [facility] Work Phone: Prothrombin time [facility] Prothrombin time [facility] REFER FOR ADMIT INTERVIEW REFER FOR ADMIT INTERVIEW Procedures Routine Pelvic pain in female Ordered: 04/25/2023 [facility] Work Phone: Comment on above: Ordered: 04/25/2023 Serum immunofixation [facility] Smooth muscle Ab [Pr esence] in Serum [facility] T4 free measurement [facility] T4 free measurement [facility] Thyroid stimulating hormone measurement [facility] Thyroid stimulating hormone measurement [facility] Triacylglycerol lipa se measurement [facility] Vitamin D, 25-hydrox y measurement [facility] Zinc [Mass/volume] i n Serum or Plasma [facility] Zinc [Mass/volume] i n Serum or Plasma [facility] Zinc [Mass/volume] i n Serum or Plasma [facility] Immunizations Immunization Date Immunization Notes Care Provider Fa [facility] 07-26-2024 Pfizer Covid-19 (Comirnaty) Dr. Carlos Chris MD Work Phone: [facility] 06-27-2024 influenza, injectabl e, quadrivalent, preservative free Dr. Carlos Chris MD Work Phone: [facility] 07-12-2022 COVID-19 (Moderna) L ow Dose Booster STARR MCGINNIS Other [facility] [employer]. Other 07-12-2022 influenza, injectabl e, quadrivalent, contains preservative STARR MCGINNIS Other [facility] [employer]. Other 07-12-2022 influenza virus vaccine, unspecified formulation Anaid Garsia MD Work Phone: [facility] Work Phone: 07-28-2021 COVID-19 (Moderna) 3 ANAID BE N-ALISTAIR Other [facility] [employer] Other 06-23-2021 influenza, injectabl e, quadrivalent, contains preservative ANAID RUY-ALISTAIR Other [facility] [employer]. Other 01-17-2021 COVID-19 (Pfizer) 2 (purple) ANAID RUY-ALISTAIR Other [facility] [employer]. Other 12-25-2020 COVID-19 (Pfizer) 1 (purple) ANAID RUY-ALISTAIR Other [facility] [employer] [facility]. Other 06-19-2020 influenza, injectabl e, quadrivalent, contains preservative Anaid Garsia MD Work Phone: [facility] Work Phone: 07-10-[address] Carlos Chris Work Phone: [facility] 07-07-2017 influenza, injectabl e, quadrivalent, contains preservative Anaid Garsia MD Work Phone: [facility] Work Phone: 08-24-2016 influenza, seasonal, injectable Us 1 Work Phone: [facility] Work Phone: 08-24-2016 pneumococcal conjuga te vaccine, 13 valent Us 1 Work Phone: [facility] Work Phone: 08-23-2016 influenza, seasonal, injectable Anaid Garsia MD Work Phone: [facility] Work Phone: 02-20-2014 tetanus toxoid, reduced diphtheria toxoid, and acellular pertussis vaccine, adsorbed ANAID GARSIA Other [facility] Other 10-23-2012 influenza virus vaccine, unspecified formulation Us 1 Work Phone: [facility] Work Phone: 10-23-2012 tetanus toxoid, reduced diphtheria toxoid, and acellular pertussis vaccine, adsorbed Us 1 Work Phone: [facility] Work Phone: Payers Date Payer Category Payer Self-pay [id number] 2018 Medicaid [employer] [id number] 2018-Present [phone] [address] [place] [address] Medicaid [id number] 2017 Unknown [employer] [facility] [id number] 2017-Present [address] [place] [address] [id number] 2015 Unknown [id number] 2015 Unknown [id number] 2011 Medicaid [id number]. [id number] 1977 Unknown [id number] 2.16.840.1.720232.3.579.2.693 1977 Unknown [id number] 2.16.840.1.700677.3.579.2.693 1977 Unknown [id number] 2.16.840.1.808980.3.579.2.693 1977 Unknown [id number] 2.16.840.1.352462.3.579.2.693 1977 Unknown [id number] 2.16.840.1.235792.3.579.2.693 1977 Unknown [id number] 2.16.840.1.156498.3.579.2.1244 Unknown [id number] 2.16.840.1.918949.3.579.2.462 Unknown [id number] 2.16.840.1.265227.3.579.2.462 Unknown [id number] 2.16.840.1.458450.3.579.2.462 Unknown [id number] 2.16.840.1.962132.3.579.2.462 Unknown [id number] 2.16.840.1.565656.3.579.2.462 Unknown [id number] 2.16.840.1.838031.3.579.2.462 Unknown [id number] 2.16.840.1.479716.3.579.2.462 Unknown [id number] 2.16.840.1.562642.3.579.2.462 Unknown [id number] 2.16.840.1.723956.3.579.2.462 Unknown [id number] 2.16.840.1.132405.3.579.2.462 Unknown [id number] 2.16.840.1.769983.3.579.2.462 Unknown [id number] 2.16840.1.655998.3.579.2.462 Unknown [id number] 2.16.840.1.226889.3.579.2.462 Unknown [id number] 2.16840.1.773202.3.579.2.462 Unknown [id number] 2.16840.1.159004.3.579.2.462 Unknown [id number] 2.840.1.255579.3.579.2.462 Unknown [id number] 2.840.1.516278.3.579.2.462 Unknown [id number] 2.840.1.313197.3.579.2.462 Unknown [id number] 2.840.1.878090.3.579.2.462 Unknown [id number] 2.840.1.123269.3.579.2.462 Unknown [id number] 2.840.1.600114.3.579.2.462 Unknown [id number] 2.840.1.399873.3.579.2.462 Unknown [id number] 2.840.1.206295.3.579.2.462 Unknown [id number] 2.840.1.957642.3.579.2.462 Unknown [id number] 2.16840.1.024264.3.579.2.462 Unknown [id number] 2.16840.1.350893.3.579.2.462 Unknown [id number] 2.16840.1.854575.3.579.2.462 Unknown [id number] 2.840.1.532781.3.579.2.462 Unknown [id number] 2.16.840.1.830451.3.579.2.462 Unknown [id number] 2.16.840.1.798427.3.579.2.462 Unknown [id number] 2.16.840.1.869839.3.579.2.462 Unknown [id number] 2.16.840.1.858061.3.579.2.462 Unknown [id number] 2.16.840.1.526609.3.579.2.462 Unknown [id number] 2.16.840.1.258887.3.579.2.462 Unknown [id number] 2.16.840.1.657906.3.579.2.462 Unknown [id number] 2.16.840.1.117564.3.579.2.462 Unknown [id number] 2.16.840.1.547288.3.579.2.462 Unknown [id number] 2.16.840.1.825206.3.579.2.462 Unknown [id number] 2.16.840.1.755640.3.579.2.462 Unknown [id number] 2.16.840.1.984549.3.579.2.462 Unknown [id number] 2.16.840.1.687656.3.579.2.462 Social History Date Type Detail Facility [facility] Work Phone: Start: 01-14-2022 End: 11-23-2023 Tobacco smoking status NHIS Unknown if ever smoked [facility] Start: 06-05-2019 None [facility] Start: 06-05-2019 - [facility] Start: 02-03-2021 Non-smoker [facility] Start: 1975 Sex Assigned At Female [facility] Start: 02-02-2022 End: 10-15-2024 Tobacco smoking status NHIS Never smoked tobacco [facility] Work Phone: Start: 09-01-2020 End: 12-21-2024 Alcohol intake Current non-drinker of alcohol (finding) [facility] Start: 1975 Sex Assigned At Not on file [facility] Start: 01-09-2022 End: 11-24-2023 Exposure to SARS-CoV-2 (event) Not sure [facility] Start: 04-25-2023 End: 12-21-2024 Sex Assigned At [facility] Start: 01-13-2023 End: 09-18-2024 Tobacco use and exposure Smokeless tobacco non-user [facility] Start: 04-25-2023 End: 12-21-2024 History of Social function [facility] National Score (1-100), lower number is lower risk 86 [facility] Start: 12-13-2024 End: 01-16-2025 Sex Female (finding) [facility] NEGATED: Highlighted row [facility] NEGATED: Highlighted rowStart: NINF History of tobacco use Passive smoker [facility] NEGATED: Highlighted row Not [facility] Medical Equipment Procedure Code Equipment Code Equipment Origin al Text Equipment Identifier Dates LAPAROSCOPIC SIMONA EN Y GASTRIC BYPASS STAPLE, IMPLANTABLE (GDW) LAPAROSCOPIC SIMONA EN Y GASTRIC BYPASS ()[id number] FDA Start: 09-20-2022 End: 09-20-2022 Fusion, joint 3.0 CORTICAL SCREW FDA Sta rt: 08-10-2022 Fusion, joint 3.0 CORTICAL SCREW FDA Sta rt: 08-10-2022 Fusion, joint 3.0 CORTICAL SCREW FDA Sta rt: 08-10-2022 Fusion, joint 3.0 locking screw FDA Star t: 08-10-2022 Fusion, joint 3.0 locking screw FDA Star t: 08-10-2022 Fusion, joint 3.0 locking screw FDA Star t: 08-10-2022 Fusion, joint 3.5MM MINI COMP SCREW FDA Start: 08-10-2022 Fusion, joint plate FDA Start: 08-10-2022 Fusion, joint 3.0 CORTICAL SCREW FDA Sta rt: 08-10-2022 Fusion, joint 3.0 CORTICAL SCREW FDA Sta rt: 08-10-2022 Fusion, joint 3.0 CORTICAL SCREW FDA Sta rt: 08-10-2022 Fusion, joint 3.0 locking screw FDA Star t: 08-10-2022 Fusion, joint 3.0 locking screw FDA Star t: 08-10-2022 Fusion, joint 3.0 locking screw FDA Star t: 08-10-2022 Fusion, joint 3.5MM MINI COMP SCREW FDA Start: 08-10-2022 Fusion, joint plate FDA Start: 08-10-2022 Fusion, joint 3.0 CORTICAL SCREW FDA Sta rt: 08-10-2022 Fusion, joint 3.0 CORTICAL SCREW FDA Sta rt: 08-10-2022 Fusion, joint 3.0 CORTICAL SCREW FDA Sta rt: 08-10-2022 Fusion, joint 3.0 locking screw FDA Star t: 08-10-2022 Fusion, joint 3.0 locking screw FDA Star t: 08-10-2022 Fusion, joint 3.0 locking screw FDA Star t: 08-10-2022 Fusion, joint 3.5MM MINI COMP SCREW FDA Start: 08-10-2022 Fusion, joint plate FDA Start: 08-10-2022 Fusion, joint 3.0 CORTICAL SCREW FDA Sta rt: 08-10-2022 Fusion, joint 3.0 CORTICAL SCREW FDA Sta rt: 08-10-2022 Fusion, joint 3.0 CORTICAL SCREW FDA Sta rt: 08-10-2022 Fusion, joint 3.0 locking screw FDA Star t: 08-10-2022 Fusion, joint 3.0 locking screw FDA Star t: 08-10-2022 Fusion, joint 3.0 locking screw FDA Star t: 08-10-2022 Fusion, joint 3.5MM MINI COMP SCREW FDA Start: 08-10-2022 Fusion, joint plate FDA Start: 08-10-2022 Fusion, joint 3.0 CORTICAL SCREW FDA Sta rt: 08-10-2022 Fusion, joint 3.0 CORTICAL SCREW FDA Sta rt: 08-10-2022 Fusion, joint 3.0 CORTICAL SCREW FDA Sta rt: 08-10-2022 Fusion, joint 3.0 locking screw FDA Star t: 08-10-2022 Fusion, joint 3.0 locking screw FDA Star t: 08-10-2022 Fusion, joint 3.0 locking screw FDA Star t: 08-10-2022 Fusion, joint 3.5MM MINI COMP SCREW FDA Start: 08-10-2022 Fusion, joint plate FDA Start: 08-10-2022 Fusion, joint 3.0 CORTICAL SCREW FDA Sta rt: 08-10-2022 Fusion, joint 3.0 CORTICAL SCREW FDA Sta rt: 08-10-2022 Fusion, joint 3.0 CORTICAL SCREW FDA Sta rt: 08-10-2022 Fusion, joint 3.0 locking screw FDA Star t: 08-10-2022 Fusion, joint 3.0 locking screw FDA Star t: 08-10-2022 Fusion, joint 3.0 locking screw FDA Star t: 08-10-2022 Fusion, joint 3.5MM MINI COMP SCREW FDA Start: 08-10-2022 Fusion, joint plate FDA Start: 08-10-2022 Fusion, joint 3.0 CORTICAL SCREW FDA Sta rt: 08-10-2022 Fusion, joint 3.0 CORTICAL SCREW FDA Sta rt: 08-10-2022 Fusion, joint 3.0 CORTICAL SCREW FDA Sta rt: 08-10-2022 Fusion, joint 3.0 locking screw FDA Star t: 08-10-2022 Fusion, joint 3.0 locking screw FDA Star t: 08-10-2022 Fusion, joint 3.0 locking screw FDA Star t: 08-10-2022 Fusion, joint 3.5MM MINI COMP SCREW FDA Start: 08-10-2022 Fusion, joint plate FDA Start: 08-10-2022 Fusion, joint 3.0 CORTICAL SCREW FDA Sta rt: 08-10-2022 Fusion, joint 3.0 CORTICAL SCREW FDA Sta rt: 08-10-2022 Fusion, joint 3.0 CORTICAL SCREW FDA Sta rt: 08-10-2022 Fusion, joint 3.0 locking screw FDA Star t: 08-10-2022 Fusion, joint 3.0 locking screw FDA Star t: 08-10-2022 Fusion, joint 3.0 locking screw FDA Star t: 08-10-2022 Fusion, joint 3.5MM MINI COMP SCREW FDA Start: 08-10-2022 Fusion, joint plate FDA Start: 08-10-2022 Fusion, joint 3.0 CORTICAL SCREW FDA Sta rt: 08-10-2022 Fusion, joint 3.0 CORTICAL SCREW FDA Sta rt: 08-10-2022 Fusion, joint 3.0 CORTICAL SCREW FDA Sta rt: 08-10-2022 Fusion, joint 3.0 locking screw FDA Star t: 08-10-2022 Fusion, joint 3.0 locking screw FDA Star t: 08-10-2022 Fusion, joint 3.0 locking screw FDA Star t: 08-10-2022 Fusion, joint 3.5MM MINI COMP SCREW FDA Start: 08-10-2022 Fusion, joint plate FDA Start: 08-10-2022 Fusion, joint 3.0 CORTICAL SCREW FDA Sta rt: 08-10-2022 Fusion, joint 3.0 CORTICAL SCREW FDA Sta rt: 08-10-2022 Fusion, joint 3.0 CORTICAL SCREW FDA Sta rt: 08-10-2022 Fusion, joint 3.0 locking screw FDA Star t: 08-10-2022 Fusion, joint 3.0 locking screw FDA Star t: 08-10-2022 Fusion, joint 3.0 locking screw FDA Star t: 08-10-2022 Fusion, joint 3.5MM MINI COMP SCREW FDA Start: 08-10-2022 Fusion, joint plate FDA Start: 08-10-2022 Fusion, joint 3.0 CORTICAL SCREW FDA Sta rt: 08-10-2022 Fusion, joint 3.0 CORTICAL SCREW FDA Sta rt: 08-10-2022 Fusion, joint 3.0 CORTICAL SCREW FDA Sta rt: 08-10-2022 Fusion, joint 3.0 locking screw FDA Star t: 08-10-2022 Fusion, joint 3.0 locking screw FDA Star t: 08-10-2022 Fusion, joint 3.0 locking screw FDA Star t: 08-10-2022 Fusion, joint 3.5MM MINI COMP SCREW FDA Start: 08-10-2022 Fusion, joint plate FDA Start: 08-10-2022 Fusion, joint 0 DEGREE MAXFORC E MTP PLATE, STANDARD RIGHT FDA Start: 04-01-2023 Fusion, joint ALLOSYNC PURE 2.5CC FDA St art: 04-01-2023 Fusion, joint 3.0 FLATHEAD CORTICAL SCREW FDA Start: 04-01-2023 Fusion, joint 3.0 HYBRID SCREW CORTICAL FDA Start: 04-01-2023 Fusion, joint 3.0MM KREULOCK SCREW FDA Start: 04-01-2023 Fusion, joint 3.0MM KREULOCK SCREW FDA Start: 04-01-2023 Fusion, joint 3.0MM KREULOCK SCREW FDA Start: 04-01-2023 Fusion, joint 3.0MM KREULOCK SCREW FDA Start: 04-01-2023 Fusion, joint 3.5MM FT SCREW FDA Start: 04-01-2023 Fusion, joint ALLOSYNC DBM CHI PS 5CC FDA Start: 04-01-2023 Fusion, joint 3.0 CORTICAL SCREW FDA Sta rt: 08-10-2022 Fusion, joint 3.0 CORTICAL SCREW FDA Sta rt: 08-10-2022 Fusion, joint 3.0 CORTICAL SCREW FDA Sta rt: 08-10-2022 Fusion, joint 3.0 locking screw FDA Star t: 08-10-2022 Fusion, joint 3.0 locking screw FDA Star t: 08-10-2022 Fusion, joint 3.0 locking screw FDA Star t: 08-10-2022 Fusion, joint 3.5MM MINI COMP SCREW FDA Start: 08-10-2022 Fusion, joint plate FDA Start: 08-10-2022 Fusion, joint 0 DEGREE MAXFORC E MTP PLATE, STANDARD RIGHT FDA Start: 04-01-2023 Fusion, joint ALLOSYNC PURE 2.5CC FDA St art: 04-01-2023 Fusion, joint 3.0 FLATHEAD CORTICAL SCREW FDA Start: 04-01-2023 Fusion, joint 3.0 HYBRID SCREW CORTICAL FDA Start: 04-01-2023 Fusion, joint 3.0MM KREULOCK SCREW FDA Start: 04-01-2023 Fusion, joint 3.0MM KREULOCK SCREW FDA Start: 04-01-2023 Fusion, joint 3.0MM KREULOCK SCREW FDA Start: 04-01-2023 Fusion, joint 3.0MM KREULOCK SCREW FDA Start: 04-01-2023 Fusion, joint 3.5MM FT SCREW FDA Start: 04-01-2023 Fusion, joint ALLOSYNC DBM CHI PS 5CC FDA Start: 04-01-2023 Fusion, joint 3.0 CORTICAL SCREW FDA Sta rt: 08-10-2022 Fusion, joint 3.0 CORTICAL SCREW FDA Sta rt: 08-10-2022 Fusion, joint 3.0 CORTICAL SCREW FDA Sta rt: 08-10-2022 Fusion, joint 3.0 locking screw FDA Star t: 08-10-2022 Fusion, joint 3.0 locking screw FDA Star t: 08-10-2022 Fusion, joint 3.0 locking screw FDA Star t: 08-10-2022 Fusion, joint 3.5MM MINI COMP SCREW FDA Start: 08-10-2022 Fusion, joint plate FDA Start: 08-10-2022 Fusion, joint 0 DEGREE MAXFORC E MTP PLATE, STANDARD RIGHT FDA Start: 04-01-2023 Fusion, joint ALLOSYNC PURE 2.5CC FDA St art: 04-01-2023 Fusion, joint 3.0 FLATHEAD CORTICAL SCREW FDA Start: 04-01-2023 Fusion, joint 3.0 HYBRID SCREW CORTICAL FDA Start: 04-01-2023 Fusion, joint 3.0MM KREULOCK SCREW FDA Start: 04-01-2023 Fusion, joint 3.0MM KREULOCK SCREW FDA Start: 04-01-2023 Fusion, joint 3.0MM KREULOCK SCREW FDA Start: 04-01-2023 Fusion, joint 3.0MM KREULOCK SCREW FDA Start: 04-01-2023 Fusion, joint 3.5MM FT SCREW FDA Start: 04-01-2023 Fusion, joint ALLOSYNC DBM CHI PS 5CC FDA Start: 04-01-2023 Fusion, joint 3.0 CORTICAL SCREW FDA Sta rt: 08-10-2022 Fusion, joint 3.0 CORTICAL SCREW FDA Sta rt: 08-10-2022 Fusion, joint 3.0 CORTICAL SCREW FDA Sta rt: 08-10-2022 Fusion, joint 3.0 locking screw FDA Star t: 08-10-2022 Fusion, joint 3.0 locking screw FDA Star t: 08-10-2022 Fusion, joint 3.0 locking screw FDA Star t: 08-10-2022 Fusion, joint 3.5MM MINI COMP SCREW FDA Start: 08-10-2022 Fusion, joint plate FDA Start: 08-10-2022 Fusion, joint 0 DEGREE MAXFORC E MTP PLATE, STANDARD RIGHT FDA Start: 04-01-2023 Fusion, joint ALLOSYNC PURE 2.5CC FDA St art: 04-01-2023 Fusion, joint 3.0 FLATHEAD CORTICAL SCREW FDA Start: 04-01-2023 Fusion, joint 3.0 HYBRID SCREW CORTICAL FDA Start: 04-01-2023 Fusion, joint 3.0MM KREULOCK SCREW FDA Start: 04-01-2023 Fusion, joint 3.0MM KREULOCK SCREW FDA Start: 04-01-2023 Fusion, joint 3.0MM KREULOCK SCREW FDA Start: 04-01-2023 Fusion, joint 3.0MM KREULOCK SCREW FDA Start: 04-01-2023 Fusion, joint 3.5MM FT SCREW FDA Start: 04-01-2023 Fusion, joint ALLOSYNC DBM CHI PS 5CC FDA Start: 04-01-2023 Fusion, joint 3.0 CORTICAL SCREW FDA Sta rt: 08-10-2022 Fusion, joint 3.0 CORTICAL SCREW FDA Sta rt: 08-10-2022 Fusion, joint 3.0 CORTICAL SCREW FDA Sta rt: 08-10-2022 Fusion, joint 3.0 locking screw FDA Star t: 08-10-2022 Fusion, joint 3.0 locking screw FDA Star t: 08-10-2022 Fusion, joint 3.0 locking screw FDA Star t: 08-10-2022 Fusion, joint 3.5MM MINI COMP SCREW FDA Start: 08-10-2022 Fusion, joint plate FDA Start: 08-10-2022 Fusion, joint 0 DEGREE MAXFORC E MTP PLATE, STANDARD RIGHT FDA Start: 04-01-2023 Fusion, joint ALLOSYNC PURE 2.5CC FDA St art: 04-01-2023 Fusion, joint 3.0 FLATHEAD CORTICAL SCREW FDA Start: 04-01-2023 Fusion, joint 3.0 HYBRID SCREW CORTICAL FDA Start: 04-01-2023 Fusion, joint 3.0MM KREULOCK SCREW FDA Start: 04-01-2023 Fusion, joint 3.0MM KREULOCK SCREW FDA Start: 04-01-2023 Fusion, joint 3.0MM KREULOCK SCREW FDA Start: 04-01-2023 Fusion, joint 3.0MM KREULOCK SCREW FDA Start: 04-01-2023 Fusion, joint 3.5MM FT SCREW FDA Start: 04-01-2023 Fusion, joint ALLOSYNC DBM CHI PS 5CC FDA Start: 04-01-2023 Fusion, joint 3.0 CORTICAL SCREW FDA Sta rt: 08-10-2022 Fusion, joint 3.0 CORTICAL SCREW FDA Sta rt: 08-10-2022 Fusion, joint 3.0 CORTICAL SCREW FDA Sta rt: 08-10-2022 Fusion, joint 3.0 locking screw FDA Star t: 08-10-2022 Fusion, joint 3.0 locking screw FDA Star t: 08-10-2022 Fusion, joint 3.0 locking screw FDA Star t: 08-10-2022 Fusion, joint 3.5MM MINI COMP SCREW FDA Start: 08-10-2022 Fusion, joint plate FDA Start: 08-10-2022 Fusion, joint 0 DEGREE MAXFORC E MTP PLATE, STANDARD RIGHT FDA Start: 04-01-2023 Fusion, joint ALLOSYNC PURE 2.5CC FDA St art: 04-01-2023 Fusion, joint 3.0 FLATHEAD CORTICAL SCREW FDA Start: 04-01-2023 Fusion, joint 3.0 HYBRID SCREW CORTICAL FDA Start: 04-01-2023 Fusion, joint 3.0MM KREULOCK SCREW FDA Start: 04-01-2023 Fusion, joint 3.0MM KREULOCK SCREW FDA Start: 04-01-2023 Fusion, joint 3.0MM KREULOCK SCREW FDA Start: 04-01-2023 Fusion, joint 3.0MM KREULOCK SCREW FDA Start: 04-01-2023 Fusion, joint 3.5MM FT SCREW FDA Start: 04-01-2023 Fusion, joint ALLOSYNC DBM CHI PS 5CC FDA Start: 04-01-2023 Fusion, joint 3.0 CORTICAL SCREW FDA Sta rt: 08-10-2022 Fusion, joint 3.0 CORTICAL SCREW FDA Sta rt: 08-10-2022 Fusion, joint 3.0 CORTICAL SCREW FDA Sta rt: 08-10-2022 Fusion, joint 3.0 locking screw FDA Star t: 08-10-2022 Fusion, joint 3.0 locking screw FDA Star t: 08-10-2022 Fusion, joint 3.0 locking screw FDA Star t: 08-10-2022 Fusion, joint 3.5MM MINI COMP SCREW FDA Start: 08-10-2022 Fusion, joint plate FDA Start: 08-10-2022 Fusion, joint 0 DEGREE MAXFORC E MTP PLATE, STANDARD RIGHT FDA Start: 04-01-2023 Fusion, joint ALLOSYNC PURE 2.5CC FDA St art: 04-01-2023 Fusion, joint 3.0 FLATHEAD CORTICAL SCREW FDA Start: 04-01-2023 Fusion, joint 3.0 HYBRID SCREW CORTICAL FDA Start: 04-01-2023 Fusion, joint 3.0MM KREULOCK SCREW FDA Start: 04-01-2023 Fusion, joint 3.0MM KREULOCK SCREW FDA Start: 04-01-2023 Fusion, joint 3.0MM KREULOCK SCREW FDA Start: 04-01-2023 Fusion, joint 3.0MM KREULOCK SCREW FDA Start: 04-01-2023 Fusion, joint 3.5MM FT SCREW FDA Start: 04-01-2023 Fusion, joint ALLOSYNC DBM CHI PS 5CC FDA Start: 04-01-2023 Fusion, joint 3.0 CORTICAL SCREW FDA Sta rt: 08-10-2022 Fusion, joint 3.0 CORTICAL SCREW FDA Sta rt: 08-10-2022 Fusion, joint 3.0 CORTICAL SCREW FDA Sta rt: 08-10-2022 Fusion, joint 3.0 locking screw FDA Star t: 08-10-2022 Fusion, joint 3.0 locking screw FDA Star t: 08-10-2022 Fusion, joint 3.0 locking screw FDA Star t: 08-10-2022 Fusion, joint 3.5MM MINI COMP SCREW FDA Start: 08-10-2022 Fusion, joint plate FDA Start: 08-10-2022 Fusion, joint 0 DEGREE MAXFORC E MTP PLATE, STANDARD RIGHT FDA Start: 04-01-2023 Fusion, joint ALLOSYNC PURE 2.5CC FDA St art: 04-01-2023 Fusion, joint 3.0 FLATHEAD CORTICAL SCREW FDA Start: 04-01-2023 Fusion, joint 3.0 HYBRID SCREW CORTICAL FDA Start: 04-01-2023 Fusion, joint 3.0MM KREULOCK SCREW FDA Start: 04-01-2023 Fusion, joint 3.0MM KREULOCK SCREW FDA Start: 04-01-2023 Fusion, joint 3.0MM KREULOCK SCREW FDA Start: 04-01-2023 Fusion, joint 3.0MM KREULOCK SCREW FDA Start: 04-01-2023 Fusion, joint 3.5MM FT SCREW FDA Start: 04-01-2023 Fusion, joint ALLOSYNC DBM CHI PS 5CC FDA Start: 04-01-2023 Fusion, joint 3.0 CORTICAL SCREW FDA Sta rt: 08-10-2022 Fusion, joint 3.0 CORTICAL SCREW FDA Sta rt: 08-10-2022 Fusion, joint 3.0 CORTICAL SCREW FDA Sta rt: 08-10-2022 Fusion, joint 3.0 locking screw FDA Star t: 08-10-2022 Fusion, joint 3.0 locking screw FDA Star t: 08-10-2022 Fusion, joint 3.0 locking screw FDA Star t: 08-10-2022 Fusion, joint 3.5MM MINI COMP SCREW FDA Start: 08-10-2022 Fusion, joint plate FDA Start: 08-10-2022 Fusion, joint 0 DEGREE MAXFORC E MTP PLATE, STANDARD RIGHT FDA Start: 04-01-2023 Fusion, joint ALLOSYNC PURE 2.5CC FDA St art: 04-01-2023 Fusion, joint 3.0 FLATHEAD CORTICAL SCREW FDA Start: 04-01-2023 Fusion, joint 3.0 HYBRID SCREW CORTICAL FDA Start: 04-01-2023 Fusion, joint 3.0MM KREULOCK SCREW FDA Start: 04-01-2023 Fusion, joint 3.0MM KREULOCK SCREW FDA Start: 04-01-2023 Fusion, joint 3.0MM KREULOCK SCREW FDA Start: 04-01-2023 Fusion, joint 3.0MM KREULOCK SCREW FDA Start: 04-01-2023 Fusion, joint 3.5MM FT SCREW FDA Start: 04-01-2023 Fusion, joint ALLOSYNC DBM CHI PS 5CC FDA Start: 04-01-2023 Fusion, joint 3.0 CORTICAL SCREW FDA Sta rt: 08-10-2022 Fusion, joint 3.0 CORTICAL SCREW FDA Sta rt: 08-10-2022 Fusion, joint 3.0 CORTICAL SCREW FDA Sta rt: 08-10-2022 Fusion, joint 3.0 locking screw FDA Star t: 08-10-2022 Fusion, joint 3.0 locking screw FDA Star t: 08-10-2022 Fusion, joint 3.0 locking screw FDA Star t: 08-10-2022 Fusion, joint 3.5MM MINI COMP SCREW FDA Start: 08-10-2022 Fusion, joint plate FDA Start: 08-10-2022 Fusion, joint 0 DEGREE MAXFORC E MTP PLATE, STANDARD RIGHT FDA Start: 04-01-2023 Fusion, joint ALLOSYNC PURE 2.5CC FDA St art: 04-01-2023 Fusion, joint 3.0 FLATHEAD CORTICAL SCREW FDA Start: 04-01-2023 Fusion, joint 3.0 HYBRID SCREW CORTICAL FDA Start: 04-01-2023 Fusion, joint 3.0MM KREULOCK SCREW FDA Start: 04-01-2023 Fusion, joint 3.0MM KREULOCK SCREW FDA Start: 04-01-2023 Fusion, joint 3.0MM KREULOCK SCREW FDA Start: 04-01-2023 Fusion, joint 3.0MM KREULOCK SCREW FDA Start: 04-01-2023 Fusion, joint 3.5MM FT SCREW FDA Start: 04-01-2023 Fusion, joint ALLOSYNC DBM CHI PS 5CC FDA Start: 04-01-2023 Fusion, joint 3.0 CORTICAL SCREW FDA Sta rt: 08-10-2022 Fusion, joint 3.0 CORTICAL SCREW FDA Sta rt: 08-10-2022 Fusion, joint 3.0 CORTICAL SCREW FDA Sta rt: 08-10-2022 Fusion, joint 3.0 locking screw FDA Star t: 08-10-2022 Fusion, joint 3.0 locking screw FDA Star t: 08-10-2022 Fusion, joint 3.0 locking screw FDA Star t: 08-10-2022 Fusion, joint 3.5MM MINI COMP SCREW FDA Start: 08-10-2022 Fusion, joint plate FDA Start: 08-10-2022 Fusion, joint 0 DEGREE MAXFORC E MTP PLATE, STANDARD RIGHT FDA Start: 04-01-2023 Fusion, joint ALLOSYNC PURE 2.5CC FDA St art: 04-01-2023 Fusion, joint 3.0 FLATHEAD CORTICAL SCREW FDA Start: 04-01-2023 Fusion, joint 3.0 HYBRID SCREW CORTICAL FDA Start: 04-01-2023 Fusion, joint 3.0MM KREULOCK SCREW FDA Start: 04-01-2023 Fusion, joint 3.0MM KREULOCK SCREW FDA Start: 04-01-2023 Fusion, joint 3.0MM KREULOCK SCREW FDA Start: 04-01-2023 Fusion, joint 3.0MM KREULOCK SCREW FDA Start: 04-01-2023 Fusion, joint 3.5MM FT SCREW FDA Start: 04-01-2023 Fusion, joint ALLOSYNC DBM CHI PS 5CC FDA Start: 04-01-2023 Fusion, joint 3.0 CORTICAL SCREW FDA Sta rt: 08-10-2022 Fusion, joint 3.0 CORTICAL SCREW FDA Sta rt: 08-10-2022 Fusion, joint 3.0 CORTICAL SCREW FDA Sta rt: 08-10-2022 Fusion, joint 3.0 locking screw FDA Star t: 08-10-2022 Fusion, joint 3.0 locking screw FDA Star t: 08-10-2022 Fusion, joint 3.0 locking screw FDA Star t: 08-10-2022 Fusion, joint 3.5MM MINI COMP SCREW FDA Start: 08-10-2022 Fusion, joint plate FDA Start: 08-10-2022 Fusion, joint 0 DEGREE MAXFORC E MTP PLATE, STANDARD RIGHT FDA Start: 04-01-2023 Fusion, joint ALLOSYNC PURE 2.5CC FDA St art: 04-01-2023 Fusion, joint 3.0 FLATHEAD CORTICAL SCREW FDA Start: 04-01-2023 Fusion, joint 3.0 HYBRID SCREW CORTICAL FDA Start: 04-01-2023 Fusion, joint 3.0MM KREULOCK SCREW FDA Start: 04-01-2023 Fusion, joint 3.0MM KREULOCK SCREW FDA Start: 04-01-2023 Fusion, joint 3.0MM KREULOCK SCREW FDA Start: 04-01-2023 Fusion, joint 3.0MM KREULOCK SCREW FDA Start: 04-01-2023 Fusion, joint 3.5MM FT SCREW FDA Start: 04-01-2023 Fusion, joint ALLOSYNC DBM CHI PS 5CC FDA Start: 04-01-2023 Fusion, joint 3.0 CORTICAL SCREW FDA Sta rt: 08-10-2022 Fusion, joint 3.0 CORTICAL SCREW FDA Sta rt: 08-10-2022 Fusion, joint 3.0 CORTICAL SCREW FDA Sta rt: 08-10-2022 Fusion, joint 3.0 locking screw FDA Star t: 08-10-2022 Fusion, joint 3.0 locking screw FDA Star t: 08-10-2022 Fusion, joint 3.0 locking screw FDA Star t: 08-10-2022 Fusion, joint 3.5MM MINI COMP SCREW FDA Start: 08-10-2022 Fusion, joint plate FDA Start: 08-10-2022 Fusion, joint 0 DEGREE MAXFORC E MTP PLATE, STANDARD RIGHT FDA Start: 04-01-2023 Fusion, joint ALLOSYNC PURE 2.5CC FDA St art: 04-01-2023 Fusion, joint 3.0 FLATHEAD CORTICAL SCREW FDA Start: 04-01-2023 Fusion, joint 3.0 HYBRID SCREW CORTICAL FDA Start: 04-01-2023 Fusion, joint 3.0MM KREULOCK SCREW FDA Start: 04-01-2023 Fusion, joint 3.0MM KREULOCK SCREW FDA Start: 04-01-2023 Fusion, joint 3.0MM KREULOCK SCREW FDA Start: 04-01-2023 Fusion, joint 3.0MM KREULOCK SCREW FDA Start: 04-01-2023 Fusion, joint 3.5MM FT SCREW FDA Start: 04-01-2023 Fusion, joint ALLOSYNC DBM CHI PS 5CC FDA Start: 04-01-2023 Fusion, joint 3.0 CORTICAL SCREW FDA Sta rt: 08-10-2022 Fusion, joint 3.0 CORTICAL SCREW FDA Sta rt: 08-10-2022 Fusion, joint 3.0 CORTICAL SCREW FDA Sta rt: 08-10-2022 Fusion, joint 3.0 locking screw FDA Star t: 08-10-2022 Fusion, joint 3.0 locking screw FDA Star t: 08-10-2022 Fusion, joint 3.0 locking screw FDA Star t: 08-10-2022 Fusion, joint 3.5MM MINI COMP SCREW FDA Start: 08-10-2022 Fusion, joint plate FDA Start: 08-10-2022 Fusion, joint 0 DEGREE MAXFORC E MTP PLATE, STANDARD RIGHT FDA Start: 04-01-2023 Fusion, joint ALLOSYNC PURE 2.5CC FDA St art: 04-01-2023 Fusion, joint 3.0 FLATHEAD CORTICAL SCREW FDA Start: 04-01-2023 Fusion, joint 3.0 HYBRID SCREW CORTICAL FDA Start: 04-01-2023 Fusion, joint 3.0MM KREULOCK SCREW FDA Start: 04-01-2023 Fusion, joint 3.0MM KREULOCK SCREW FDA Start: 04-01-2023 Fusion, joint 3.0MM KREULOCK SCREW FDA Start: 04-01-2023 Fusion, joint 3.0MM KREULOCK SCREW FDA Start: 04-01-2023 Fusion, joint 3.5MM FT SCREW FDA Start: 04-01-2023 Fusion, joint ALLOSYNC DBM CHI PS 5CC FDA Start: 04-01-2023 Fusion, joint 3.0 CORTICAL SCREW FDA Sta rt: 08-10-2022 Fusion, joint 3.0 CORTICAL SCREW FDA Sta rt: 08-10-2022 Fusion, joint 3.0 CORTICAL SCREW FDA Sta rt: 08-10-2022 Fusion, joint 3.0 locking screw FDA Star t: 08-10-2022 Fusion, joint 3.0 locking screw FDA Star t: 08-10-2022 Fusion, joint 3.0 locking screw FDA Star t: 08-10-2022 Fusion, joint 3.5MM MINI COMP SCREW FDA Start: 08-10-2022 Fusion, joint plate FDA Start: 08-10-2022 Fusion, joint 0 DEGREE MAXFORC E MTP PLATE, STANDARD RIGHT FDA Start: 04-01-2023 Fusion, joint ALLOSYNC PURE 2.5CC FDA St art: 04-01-2023 Fusion, joint 3.0 FLATHEAD CORTICAL SCREW FDA Start: 04-01-2023 Fusion, joint 3.0 HYBRID SCREW CORTICAL FDA Start: 04-01-2023 Fusion, joint 3.0MM KREULOCK SCREW FDA Start: 04-01-2023 Fusion, joint 3.0MM KREULOCK SCREW FDA Start: 04-01-2023 Fusion, joint 3.0MM KREULOCK SCREW FDA Start: 04-01-2023 Fusion, joint 3.0MM KREULOCK SCREW FDA Start: 04-01-2023 Fusion, joint 3.5MM FT SCREW FDA Start: 04-01-2023 Fusion, joint ALLOSYNC DBM CHI PS 5CC FDA Start: 04-01-2023 Fusion, joint 3.0 CORTICAL SCREW FDA Sta rt: 08-10-2022 Fusion, joint 3.0 CORTICAL SCREW FDA Sta rt: 08-10-2022 Fusion, joint 3.0 CORTICAL SCREW FDA Sta rt: 08-10-2022 Fusion, joint 3.0 locking screw FDA Star t: 08-10-2022 Fusion, joint 3.0 locking screw FDA Star t: 08-10-2022 Fusion, joint 3.0 locking screw FDA Star t: 08-10-2022 Fusion, joint 3.5MM MINI COMP SCREW FDA Start: 08-10-2022 Fusion, joint plate FDA Start: 08-10-2022 Fusion, joint 0 DEGREE MAXFORC E MTP PLATE, STANDARD RIGHT FDA Start: 04-01-2023 Fusion, joint ALLOSYNC PURE 2.5CC FDA St art: 04-01-2023 Fusion, joint 3.0 FLATHEAD CORTICAL SCREW FDA Start: 04-01-2023 Fusion, joint 3.0 HYBRID SCREW CORTICAL FDA Start: 04-01-2023 Fusion, joint 3.0MM KREULOCK SCREW FDA Start: 04-01-2023 Fusion, joint 3.0MM KREULOCK SCREW FDA Start: 04-01-2023 Fusion, joint 3.0MM KREULOCK SCREW FDA Start: 04-01-2023 Fusion, joint 3.0MM KREULOCK SCREW FDA Start: 04-01-2023 Fusion, joint 3.5MM FT SCREW FDA Start: 04-01-2023 Fusion, joint ALLOSYNC DBM CHI PS 5CC FDA Start: 04-01-2023 Fusion, joint 3.0 CORTICAL SCREW FDA Sta rt: 08-10-2022 Fusion, joint 3.0 CORTICAL SCREW FDA Sta rt: 08-10-2022 Fusion, joint 3.0 CORTICAL SCREW FDA Sta rt: 08-10-2022 Fusion, joint 3.0 locking screw FDA Star t: 08-10-2022 Fusion, joint 3.0 locking screw FDA Star t: 08-10-2022 Fusion, joint 3.0 locking screw FDA Star t: 08-10-2022 Fusion, joint 3.5MM MINI COMP SCREW FDA Start: 08-10-2022 Fusion, joint plate FDA Start: 08-10-2022 Fusion, joint 0 DEGREE MAXFORC E MTP PLATE, STANDARD RIGHT FDA Start: 04-01-2023 Fusion, joint ALLOSYNC PURE 2.5CC FDA St art: 04-01-2023 Fusion, joint 3.0 FLATHEAD CORTICAL SCREW FDA Start: 04-01-2023 Fusion, joint 3.0 HYBRID SCREW CORTICAL FDA Start: 04-01-2023 Fusion, joint 3.0MM KREULOCK SCREW FDA Start: 04-01-2023 Fusion, joint 3.0MM KREULOCK SCREW FDA Start: 04-01-2023 Fusion, joint 3.0MM KREULOCK SCREW FDA Start: 04-01-2023 Fusion, joint 3.0MM KREULOCK SCREW FDA Start: 04-01-2023 Fusion, joint 3.5MM FT SCREW FDA Start: 04-01-2023 Fusion, joint ALLOSYNC DBM CHI PS 5CC FDA Start: 04-01-2023 Fusion, joint 3.0 CORTICAL SCREW FDA Sta rt: 08-10-2022 Fusion, joint 3.0 CORTICAL SCREW FDA Sta rt: 08-10-2022 Fusion, joint 3.0 CORTICAL SCREW FDA Sta rt: 08-10-2022 Fusion, joint 3.0 locking screw FDA Star t: 08-10-2022 Fusion, joint 3.0 locking screw FDA Star t: 08-10-2022 Fusion, joint 3.0 locking screw FDA Star t: 08-10-2022 Fusion, joint 3.5MM MINI COMP SCREW FDA Start: 08-10-2022 Fusion, joint plate FDA Start: 08-10-2022 Fusion, joint 0 DEGREE MAXFORC E MTP PLATE, STANDARD RIGHT FDA Start: 04-01-2023 Fusion, joint ALLOSYNC PURE 2.5CC FDA St art: 04-01-2023 Fusion, joint 3.0 FLATHEAD CORTICAL SCREW FDA Start: 04-01-2023 Fusion, joint 3.0 HYBRID SCREW CORTICAL FDA Start: 04-01-2023 Fusion, joint 3.0MM KREULOCK SCREW FDA Start: 04-01-2023 Fusion, joint 3.0MM KREULOCK SCREW FDA Start: 04-01-2023 Fusion, joint 3.0MM KREULOCK SCREW FDA Start: 04-01-2023 Fusion, joint 3.0MM KREULOCK SCREW FDA Start: 04-01-2023 Fusion, joint 3.5MM FT SCREW FDA Start: 04-01-2023 Fusion, joint ALLOSYNC DBM CHI PS 5CC FDA Start: 04-01-2023 Fusion, joint 3.0 CORTICAL SCREW FDA Sta rt: 08-10-2022 Fusion, joint 3.0 CORTICAL SCREW FDA Sta rt: 08-10-2022 Fusion, joint 3.0 CORTICAL SCREW FDA Sta rt: 08-10-2022 Fusion, joint 3.0 locking screw FDA Star t: 08-10-2022 Fusion, joint 3.0 locking screw FDA Star t: 08-10-2022 Fusion, joint 3.0 locking screw FDA Star t: 08-10-2022 Fusion, joint 3.5MM MINI COMP SCREW FDA Start: 08-10-2022 Fusion, joint plate FDA Start: 08-10-2022 Fusion, joint 0 DEGREE MAXFORC E MTP PLATE, STANDARD RIGHT FDA Start: 04-01-2023 Fusion, joint ALLOSYNC PURE 2.5CC FDA St art: 04-01-2023 Fusion, joint 3.0 FLATHEAD CORTICAL SCREW FDA Start: 04-01-2023 Fusion, joint 3.0 HYBRID SCREW CORTICAL FDA Start: 04-01-2023 Fusion, joint 3.0MM KREULOCK SCREW FDA Start: 04-01-2023 Fusion, joint 3.0MM KREULOCK SCREW FDA Start: 04-01-2023 Fusion, joint 3.0MM KREULOCK SCREW FDA Start: 04-01-2023 Fusion, joint 3.0MM KREULOCK SCREW FDA Start: 04-01-2023 Fusion, joint 3.5MM FT SCREW FDA Start: 04-01-2023 Fusion, joint ALLOSYNC DBM CHI PS 5CC FDA Start: 04-01-2023 Fusion, joint 3.0 CORTICAL SCREW FDA Sta rt: 08-10-2022 Fusion, joint 3.0 CORTICAL SCREW FDA Sta rt: 08-10-2022 Fusion, joint 3.0 CORTICAL SCREW FDA Sta rt: 08-10-2022 Fusion, joint 3.0 locking screw FDA Star t: 08-10-2022 Fusion, joint 3.0 locking screw FDA Star t: 08-10-2022 Fusion, joint 3.0 locking screw FDA Star t: 08-10-2022 Fusion, joint 3.5MM MINI COMP SCREW FDA Start: 08-10-2022 Fusion, joint plate FDA Start: 08-10-2022 Fusion, joint 0 DEGREE MAXFORC E MTP PLATE, STANDARD RIGHT FDA Start: 04-01-2023 Fusion, joint ALLOSYNC PURE 2.5CC FDA St art: 04-01-2023 Fusion, joint 3.0 FLATHEAD CORTICAL SCREW FDA Start: 04-01-2023 Fusion, joint 3.0 HYBRID SCREW CORTICAL FDA Start: 04-01-2023 Fusion, joint 3.0MM KREULOCK SCREW FDA Start: 04-01-2023 Fusion, joint 3.0MM KREULOCK SCREW FDA Start: 04-01-2023 Fusion, joint 3.0MM KREULOCK SCREW FDA Start: 04-01-2023 Fusion, joint 3.0MM KREULOCK SCREW FDA Start: 04-01-2023 Fusion, joint 3.5MM FT SCREW FDA Start: 04-01-2023 Fusion, joint ALLOSYNC DBM CHI PS 5CC FDA Start: 04-01-2023 Fusion, joint 3.0 CORTICAL SCREW FDA Sta rt: 08-10-2022 Fusion, joint 3.0 CORTICAL SCREW FDA Sta rt: 08-10-2022 Fusion, joint 3.0 CORTICAL SCREW FDA Sta rt: 08-10-2022 Fusion, joint 3.0 locking screw FDA Star t: 08-10-2022 Fusion, joint 3.0 locking screw FDA Star t: 08-10-2022 Fusion, joint 3.0 locking screw FDA Star t: 08-10-2022 Fusion, joint 3.5MM MINI COMP SCREW FDA Start: 08-10-2022 Fusion, joint plate FDA Start: 08-10-2022 Fusion, joint 0 DEGREE MAXFORC E MTP PLATE, STANDARD RIGHT FDA Start: 04-01-2023 Fusion, joint ALLOSYNC PURE 2.5CC FDA St art: 04-01-2023 Fusion, joint 3.0 FLATHEAD CORTICAL SCREW FDA Start: 04-01-2023 Fusion, joint 3.0 HYBRID SCREW CORTICAL FDA Start: 04-01-2023 Fusion, joint 3.0MM KREULOCK SCREW FDA Start: 04-01-2023 Fusion, joint 3.0MM KREULOCK SCREW FDA Start: 04-01-2023 Fusion, joint 3.0MM KREULOCK SCREW FDA Start: 04-01-2023 Fusion, joint 3.0MM KREULOCK SCREW FDA Start: 04-01-2023 Fusion, joint 3.5MM FT SCREW FDA Start: 04-01-2023 Fusion, joint ALLOSYNC DBM CHI PS 5CC FDA Start: 04-01-2023 Cystoscopy, with retrograde pyelogram, ureteroscopy, laser procedure, and stent inser Polymeric ureteral stent ([id number] FDA Start: 08-04-2023 Appendectomy, laparoscopic RELOAD,STANDARD 45 6R45B ETH FDA Start: 01-22-2019 Appendectomy, laparoscopic RELOAD,STANDARD 45 6R45B ETH FDA Start: 01-22-2019 Appendectomy, laparoscopic RELOAD,STANDARD 45 6R45B ETH FDA Start: 01-22-2019 Appendectomy, laparoscopic RELOAD,STANDARD 45 6R45B ETH FDA Start: 01-22-2019 Appendectomy, laparoscopic RELOAD,STANDARD 45 6R45B ETH FDA Start: 01-22-2019 Appendectomy, laparoscopic RELOAD,STANDARD 45 6R45B ETH FDA Start: 01-22-2019 Appendectomy, laparoscopic RELOAD,STANDARD 45 6R45B ETH FDA Start: 01-22-2019 Appendectomy, laparoscopic RELOAD,STANDARD 45 6R45B ETH FDA Start: 01-22-2019 Appendectomy, laparoscopic RELOAD,STANDARD 45 6R45B ETH FDA Start: 01-22-2019 Appendectomy, laparoscopic RELOAD,STANDARD 45 6R45B ETH FDA Start: 01-22-2019 Appendectomy, laparoscopic RELOAD,STANDARD 45 6R45B ETH FDA Start: 01-22-2019 Appendectomy, laparoscopic RELOAD,STANDARD 45 6R45B ETH FDA Start: 01-22-2019 Appendectomy, laparoscopic RELOAD,STANDARD 45 6R45B ETH FDA Start: 01-22-2019 Appendectomy, laparoscopic RELOAD,STANDARD 45 6R45B ETH FDA Start: 01-22-2019 Appendectomy, laparoscopic RELOAD,STANDARD 45 6R45B ETH FDA Start: 01-22-2019 Appendectomy, laparoscopic RELOAD,STANDARD 45 6R45B ETH FDA Start: 01-22-2019 Appendectomy, laparoscopic RELOAD,STANDARD 45 6R45B ETH FDA Start: 01-22-2019 Appendectomy, laparoscopic RELOAD,STANDARD 45 6R45B ETH FDA Start: 01-22-2019 Appendectomy, laparoscopic RELOAD,STANDARD 45 6R45B ETH FDA Start: 01-22-2019 Appendectomy, laparoscopic RELOAD,STANDARD 45 6R45B ETH FDA Start: 01-22-2019 Appendectomy, laparoscopic RELOAD,STANDARD 45 6R45B ETH FDA Start: 01-22-2019 Appendectomy, laparoscopic RELOAD,STANDARD 45 6R45B ETH FDA Start: 01-22-2019 Appendectomy, laparoscopic RELOAD,STANDARD 45 6R45B ETH FDA Start: 01-22-2019 Appendectomy, laparoscopic RELOAD,STANDARD 45 6R45B ETH FDA Start: 01-22-2019 Appendectomy, laparoscopic RELOAD,STANDARD 45 6R45B ETH FDA Start: 01-22-2019 Appendectomy, laparoscopic RELOAD,STANDARD 45 6R45B ETH FDA Start: 01-22-2019 Appendectomy, laparoscopic RELOAD,STANDARD 45 6R45B ETH FDA Start: 01-22-2019 Appendectomy, laparoscopic RELOAD,STANDARD 45 6R45B ETH FDA Start: 01-22-2019 Appendectomy, laparoscopic RELOAD,STANDARD 45 6R45B ETH FDA Start: 01-22-2019 Appendectomy, laparoscopic RELOAD,STANDARD 45 6R45B ETH FDA Start: 01-22-2019 Appendectomy, laparoscopic RELOAD,STANDARD 45 6R45B ETH FDA Start: 01-22-2019 Appendectomy, laparoscopic RELOAD,STANDARD 45 6R45B ETH FDA Start: 01-22-2019 Appendectomy, laparoscopic RELOAD,STANDARD 45 6R45B ETH FDA Start: 01-22-2019 Appendectomy, laparoscopic RELOAD,STANDARD 45 6R45B ETH FDA Start: 01-22-2019 Appendectomy, laparoscopic RELOAD,STANDARD 45 6R45B ETH FDA Start: 01-22-2019 Appendectomy, laparoscopic RELOAD,STANDARD 45 6R45B ETH FDA Start: 01-22-2019 Appendectomy, laparoscopic RELOAD,STANDARD 45 6R45B ETH FDA Start: 01-22-2019 Appendectomy, laparoscopic RELOAD,STANDARD 45 6R45B ETH FDA Start: 01-22-2019 1 Each once daily. Start: 07-23-2024 Goals Date Patient Goal Desired Activity /State Functional Status Date Assessment Result Facility 10-14-2024 Functional status [facility] Work Phone: 05-13-2015 Are you blind, or do you have serious difficulty seeing, even when wearing glasses No 05/13/2015 12:35 PM EDT [facility]a [facility] 05-13-2015 Do you have serious difficulty walking or climbing stairs No 05/13/2015 12:35 PM EDT [facility]a [facility] 05-13-2015 Do you have difficul ty dressing or bathing No 05/13/2015 12:35 PM EDT Columba [facility] 05-13-2015 Because of a physica l, mental, or emotional condition, do you have difficulty doing errands alone such as visiting a physician's office or shopping No 05/13/2015 12:35 PM EDT Columba [facility] Mental Status Date Assessment Result Facility 10-19-2024 Cognitive function Voice/Name [facility] Work Phone: 10-14-2024 Cognitive function Voice/Name [facility] Work Phone: 09-12-2024 Cognitive function Awake;Alert;[facility] Work Phone: 08-04-2023 Cognitive function Voice/Name [facility] Work Phone: 04-01-2023 Cognitive function Awake;Alert;[facility]ropriat e [facility] Work Phone: 04-01-2023 Cognitive function Arousable To Voice/Nam e [facility] Work Phone: 03-17-2023 Cognitive function Voice/Name [facility] Work Phone: 08-10-2022 Cognitive function Level Of Cons ciousness Drowsy [facility] Work Phone: 08-10-2022 Cognitive function Voice/Name [facility] Work Phone: 01-14-2022 Cognitive function Voice/Name [facility] Work Phone: 05-13-2015 Because of a physica l, mental, or emotional condition, do you have serious difficulty concentrating, remembering, or making decisions No 05/13/2015 12:35 PM EDT Columba Marshall Cma No [facility] Clinical Notes 05-13-2015 to 03-08-2025 Note Date & Type Note Facility 03-08-2025 Progress note [facility] 03-08-2025 Progress note Note Date/Time March 08, 2025 9:21am [facility] [address] [place] [address] OFFICE VISIT Date of Service: 03/08/25 MR#: [id number] Acct: [id number] Name: ROMAIN MENDOZA Rep #: [id number] : 1975 Provider: Dr. Sha Torres MD Age/Sex: 49/F Location: [facility] Status: Signed Intake Vital Signs 10/19/24 11:52 03/08/25 09:03 Height 5 ft 5 ft Weight: 146 lb BMI 28.5 BP 105/70 Blood Pressure Location Rt brachial Position Sitting Respiration 17 Pulse 62 Pulse Source Monitor Pulse Oximetry (%) 100 Oxygen Delivery Method room air Intake Visit Reasons: CHOLECYSTITIS Chief Complaint: cholecystitis Is patient in pain?: Yes (after eats, right side pain) Allergies citalopram Allergy (Verified 03/08/25 09:04) unknown codeine Allergy (Verified 03/08/25 09:04) Unknown lithium Allergy (Verified 03/08/25 09:04) Unknown Medications ?Medication ?Instructions ?Recorded ?Confirmed ?Type rosuvastatin 40 mg tablet (Crestor) 40 mg PO DAILY #30 tabs 08/07/20 03/08/25 Rx alprazolam 0.5 mg tablet (Xanax) 0.5 mg PO QHS PRN Anx iety 04/06/21 03/08/25 History allopurinol 100 mg tablet 100 mg PO DAILY 03/10/23 History calcium citrate malate-vit D3 1 ea PO/SL DAILY 3 03/08/25 History cyanocobalamin (B12)-cobamamide 1 sona sublingual DAILY 03/10/23 03/08/25 History 5,000 mcg-100 mcg sublingual lozenge (B12) pediatric multivitamin no.76 2 tab PO DAILY 03/10/23 0 03/08/25 History (Flintstones Complete chewable tablet) albuterol sulfate 90 mcg/actuation 2 puff inhalation Q 4H PRN 03/29/23 03/08/25 Rx aerosol inhaler shortness of breath or wheez ing #1 device estradiol 0.075 mg/24 hr weekly 1 patch transdermal TH 07/22/23 03/08/25 History transdermal patch vilazodone 10 mg tablet 20 mg PO QHS 07/22/23 History vitamin E (dl, acetate) 180 mg 180 mg PO QDAY 08/22/24 03/08/25 History (400 unit) capsule levothyroxine 137 mcg tablet 137 mcg PO DAILY 10/15/24 03/08/25 History PFSH Medical History History of Clostridium difficile infection Hypoglycemia Gout Seizures Ureterolithiasis Bipolar disorder Thyroid disease High cholesterol Dietary restriction Sleep apnea Wears dentures History of renal disease Fatty liver Gastric reflux Non-smoker History of echocardiogram History of stress test Cardiology follow-up encounter Hypertension 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 Right foot pain Right knee pain Knee pain Stage 3 chronic kidney disease Vitamin D deficiency Postablative hypothyroidism Clostridium difficile infection Wears glasses Pain aggravated by walking Chest pain Obesity Coronary artery calcification Paresthesia Anxiety DDD (degenerative disc disease), thoracic Segmental and somatic dysfunction of thoracic region Osteoarthritis Asthma Depression Hypothyroidism Essential (primary) hypertension Hyperlipidemia Surgical History History of cystoscopy History of foot surgery Hx of bilateral salpingo-oophorectomy Bariatric surgery status Hx of colonoscopy Hx of right knee surgery Hx of appendectomy H/O tooth extraction History of appendectomy History of section, classical History of hysterectomy History of eyelid surgery Family History Mother Diabetes Breast cancer Anemia Depression Hypertension Father Diabetes Heart disease Hypertension CVA (cerebral vascular accident) in his 40'2 from CVA Hyperlipemia Brother Asthma Hypertension CAD (coronary artery disease), Onset Age: 50 coronary stents Sister Depression Seizures Grandmother Diabetes Thyroid disorder Heart disease Grandfather Diabetes Thyroid disorder Heart disease Aunt Heart disease CAD (coronary artery disease) stents Uncle Heart disease CAD (coronary artery disease) stents Other Arthritis Social History Smoking Status: Never smoker second hand exposure: No alcohol intake: never substance use type: does not use caffeine: Yes frequency: does not exercise HPI HPI HPI: 49-year-old female presents for right upper quadrant pain after eating. Patientstates she has been watching what she eats but anything can cause her the right upper quadrant pain. Patient did have gastric bypass about 2 years ago at [facility]?patient states she used to be about 300 pounds. Patient states her pain is typically constantly about a 4/10 but can increase and doubled her over aftereating. Patient does have a history of Pak and has previously had a liver biopsy in September. Patient's most recent liver functions AST and ALT and alk phos were elevated in February. Total bili was normal. Patient has had a previous gastric bypass, laparoscopic appendectomy. Patient had ultrasound showed small amount of sludge with normal gallbladder wall, no pericholecystic fluid, fatty liver. ROS General General: Yes fatigue; No weight change, appetite, colon cancer or breast cancer HEENT HEENT: No difficulty swallowing, eye injury, eye surgery, swollen glands or hoarseness Endo Endocrine: Yes thyroid disease; No diabetes mellitus, thyroid cancer, Hair loss, heat intolerance or cold intolerance Skin Skin: No rash or changing moles Musc Musculoskeletal: Yes arthritis; No back problems, rheumatoid arthritis, gout or joint pain Cardio Cardiovascular: No murmur, pacemaker, heart disease, atrial fibrillation, high blood pressure, heart attack, heart stent, palpitations, shortness of breath with exertion or chest pain Psych Psychiatric: Yes depression and anxiety; No hearing voices Resp Respiratory: No shortness of breath, No sleep apnea, No cough, No COPD, No asthma, No emphysema and No wheezing Gastro Gastrointestinal: Yes abdominal pain, No nausea or vomiting, No diarrhea, No constipation, No blood in stool, No acid reflux, No hemorrhoids, No ulcers, Yes gallbladder problem and No black,tarry stools Donnie Hematologic: No blood thinners, No blood disorders, No bleeding, No anemia and No blood clots Neuro Neurologic: No numbness and No tingling Exam Const General: cooperative, healthy appearing, comfortable and no acute distress HENMT Head: normocephalic and atraumatic Neck Neck: supple Resp Effort & Inspection: normal respiratory effort Cardio Rate: regular rate GI Inspection: non-distended Palpation: soft, no guarding, hernia and tender in the RUQ (Minimal); with no rebound tenderness Skin General: no rashes or lesions noted Neuro General: CN's II-XI intact bilaterally Extrem General: normal to inspection Psych Mental Status: mental status grossly normal Attitude: cooperative Assessment and Plan Assessment and Plan (1) Gallbladder sludge: Status: Acute (2) RUQ pain: Status: Acute (3) NAFLD (nonalcoholic fatty liver disease): Status: Chronic Plan Reviewed the anatomy with the patient and discussed the procedure: laparoscopic cholecystectomy with possible cholangiograms, possible open. Review risks including but not limited to bleeding, infection, hernia, bile leak, retained gallstones requiring another procedure ERCP- Endoscopic Retrograde Cholangiopancreatography, injury to another organ (bile ducts, common bile duct,small bowel, etc.) and conversion to an open procedure. All questions were answered. Anju Torres M.D. Pager: [phone] [facility] [address] [place] [address], [address] [place] [address] Office: [phone] Coding Level of Care Code Off vis,new,level 3 Diagnoses Gallbladder sludge K82.8 RUQ pain R10.11 NAFLD (nonalcoholic fatty liver disease) K76.0 03/08/25 0921 <Electronically signed by Anju Shay am, MD> Date _ Anju Torres MD Cosigner Signature: Date (if applicable) CC: Dr. Carlos Chris MD ~ [place] [employer] Work Phone: [phone]) 545-575305-21-2025 Radiology Diagnostic study note [facility] Imaging Services [address] [place], [place] [address] Abdomen Limited MR#: [id number] Acct: [id number] Name: ROMAIN MENDOZA Rep #: [id number] : 1975 F 49 From: Johana Yepez MD PCP: Dr. Carlos Chris MD Status: MIGUELINA AN Study:Abdomen Limited Date of Exam: 02/08 11/03 Exam# [id number] Ordering Dr: Anju Torres MD EXAM: US Abdomen Limited, Gallbladder CLINICAL INDICATION: CHOLECYSTITIS TECHNIQUE: Real-time ultrasound of the right upper quadrant with image documentation. COMPARISON: No relevant prior studies available. FINDINGS: LIVER: Liver measures up to 13.4 cm. Fatty infiltration of the liver. GALLBLADDER: Negative Luis's sign was reported by the survey research manager. No pericholecystic fluid. COMMON BILE DUCT: Unremarkable as visualized. No stones. No dilation. Commonbile duct measures 0.48cm in diameter. PANCREAS: Unremarkable as visualized. RIGHT KIDNEY: Unremarkable. No stones. No hydronephrosis. Right kidney 8.1 x5.2 x 4.4 cm. US/Abdomen Limited IMPRESSION: 1. Fatty infiltration of the liver. 2. No convincing evidence of acute cholecystitis. If clinical concern persist,further evaluation with HIDA scan is recommended. Reading Location: [facility] CC: Dr. Carlos Chris MD; Dr. Anju Torres MD ~ Broadcast Engineer: Signed [facility]05-16-2025 Radiology Diagnostic study note [facility] Imaging Services [address] [place], [place] [id number] Abdomen Single View MR#: [id number] Acct: [id number] Name: ROMAIN MENDOZA Rep #: [id number] : 1975 F 49 From: Andrew Boyer MD PCP: Dr. Carlos Chris MD Status: REG C LI Study:Abdomen Single View Date of Exam: 02/21/25 Exam# [id number] Ordering Dr: Alondra An DO PROCEDURE: ABDOMEN SINGLE VIEW 02/21/2025 REASON FOR EXAM: ABDOMINAL PAIN TECHNIQUE: Single supine view abdomen. Two images to include the entire abdomen and pelvis COMPARISON: 09/17/2024 FINDINGS: No gaseous distention of bowel. Moderate amount of colonic stool at the right colon. Postsurgical changes left upper quadrant again noted. Lung bases appear clear. RAD/Abdomen Single View IMPRESSION: Study appears within limits as above. Reading Location: [facility] CC: Dr. Carlos Chris MD; Kristofer An DO ~ Broadcast Engineer: Signed [facility]03-18-2025 Telephone encounter Note* Telephone Encounter - Bee Gracia RN - 12/25/2024 2:24 PM EDT Last OV 12/06/23. Upcoming annual scheduled 04/16/25. Requested Prescriptions Pending Prescriptions Disp Refills estradiol (CLIMARA) 0.075 mg/24 hr patch 12 Patch 11 Sig: Apply 1 Patch as directed one time a week. to lower abd or buttocks. Bee Gracia RN [facility]03-18-2025 Miscellaneous Notes* Telephone Encounter - Bee Gracia RN - 12/25/2024 2:24 PM EDT Last OV 12/06/23. Upcoming annual scheduled 04/16/25. Requested Prescriptions Pending Prescriptions Disp Refills estradiol (CLIMARA) 0.075 mg/24 hr patch 12 Patch 11 Sig: Apply 1 Patch as directed one time a week. to lower abd or buttocks. Bee Gracia RN documented [facility]The [facility] Instructions* Patient Instructions* Alfred Hood MD - 12/21/2024 10:01 AM EDT Please decrease the dose of levothyroxine to 125 mcg daily Repeat labs after 6 to 8 weeks from dose change, after holding supplements for atleast 3 days documented in this encounterThe [facility]-2025 NoteHNO ID: [id number] Author: ALFRED HOOD MD Service: ? Author Type: Physician Type: Progress Notes Filed: 12/23/2024 12:01 Note Text: [facility] Follow up note Subjective: Romain Mendoza is a 49 year old female here for follow up of postablative hypothyroidism. She is self referred, transferring care from Dr. Matthias Mendieta in [place] Initial/last visit with me was 09/18/2024 History in brief, obtained from chart review: She has a hx of hyperthyroidism diagnosed when in 2006 when she was . At that time she was seeing Dr. Chan, and was on PTU. She later underwent MCPHERSON with 8.63 mCi of I-131 on 01/05/2008. She was restarted on tapazole 6 weeks later due to symptoms She was euthyroid later, followed by hypothyroidism leading to initiation of LT4 She appears to have undergone FNA of left thyroid lobe also in 2007 (dated 01/02/1008 as well on charts) with limited cellularity She had cystic nodule, 0.795 x 0.337 cm on sagittal view on left, aspirated . FNA was inadequate cellularity, but benign, cystic contents. I will wait to repeat an ultrasound for a year or more A second biopsy was intended, but patient reports this was never done, and rather ablation was done, and reports she was immediately again- likely in 04/2008 per chart review Current treatment: Levothyroxine 137 mcg daily since last week Prior treatment: Tirosint 175 mcg daily Changes made based on most recent labs in 09/2024 General symptoms: Fatigue: depends Weight change: no Appetite change: she eats multiple times a day due to hx of bariatric surgery (lost from 300 lbs to now at 135 lbs after surgery) Menstrual irregularities: partial hysterectomy done due to abnormal periods, completion done last year due to pain in abdomen Temperature intolerance: cold intolerance always Sleep is fine Sometimes has tremors She takes flintstone Chewables and calcium, Vit E and B12 She also underwent Gastric bypass in Sep 2022 Experiences Hypoglycemia intermittently, recently in 07/2024. Had a hypoglycemic seizure Has a glucose log brought in- most sugars are above 75 mg/dl, some in 200s. Review of the log does not indicate lows below 60 mg/dl She takes small frequent meals as she reports. She had dietitian visit early on after surgery. Interval history: 12/21/24: She asks if she could have her thyroid removed as her thyroid is not controlled When I told her that the thyroid is not doing anything, and and has been killed, she asks what the medication is doing if her thyroid has been killed No specific thyroid concerning symptoms reported other than those reported on previous visit She did not discuss any concerns with regards to hypoglycemia either REVIEW OF SYSTEMS: 10 point ROS was reviewed and negative unless indicated in the HPI ALLERGIES: ALLERGIES Allergen Reactions Nsaids (Non-Steroid* Other: See Comments Due to bariatric surgery Codeine Other: See Comments Dizziness- (all forms/doses)-cannot take cough syrup with codeine Citalopram GI Upset Nausea and vomiting [place] GI Upset stomach pain MEDICATIONS: Current Outpatient Medications on File Prior to Visit Medication Sig ONETOUCH ULTRA TEST test strip 1 Each once daily. ONETOUCH ULTRA2 METER 1 Each. hydrOXYzine HCl (ATARAX) 50 mg tablet Take 50 mg by mouth three times a day as needed for anxiety. ONETOUCH DELICA PLUS LANCET 33 gauge 1 Each once daily. levothyroxine (SYNTHROID) 137 mcg tablet Take 1 tablet by mouth every afternoon. potassium chloride (K-TAB) 10 mEq tablet Take 1 tablet by mouth every afternoon. pantoprazole DR (PROTONIX) 40 mg tablet Take 40 mg by mouth once daily. vilazodone (VIIBRYD) 20 mg tablet Take 20 mg by mouth once daily. estradiol (CLIMARA) 0.075 mg/24 hr Apply 1 Patch as directed one time a week. to lower abd or buttocks. rosuvastatin (CRESTOR) 40 mg tablet allopurinol (ZYLOPRIM) 100 mg tablet MULTIVITAMIN ORAL Take by mouth. Flinstone chewables CALCIUM ORAL Take by mouth. cyanocobalamin/folic acid (VITAMIN K13-OVCEU ACID) 1,000-400 mcg lozg Dissolve under the tongue. ALPRAZolam (XANAX) 0.25 mg tablet Take 1 tablet by mouth once daily as needed for Anxiety. albuterol HFA (VENTOLIN HFA) 90 mcg/actuation inhaler Inhale 2 Puffs as instructed every 4 hours as needed for Wheezing/Shortness of Breath. No current facility-administered medications on file prior to visit. PAST MEDICAL HISTORY: PAST MEDICAL HISTORY Diagnosis Date Asthma 03/2016 + VICKIE at [facility]. Depressive disorder, not elsewhere classified Encounter for insertion or removal of intrauterine contraceptive device 07/17/2007 Mirena, Removed 10/23/2007 Migraine, unspecified, with intractable migraine, so stated, without mention of status migrainosus Migraine Obesity (BMI 30-39.9) Placenta previa without hemorrhage, antepartum 08/26/2008 (more content not included)...[facility]03-14-2025 History of Present illness Narrative* Alfred Hood MD - 12/21/2024 9:55 AM EDT [facility] Follow up note Subjective: Romain Mendoza is a 49 year old female here for follow up of postablative hypothyroidism. She is self referred, transferring care from Dr. Matthias Mendieta in [place] Initial/last visit with me was 09/18/2024 History in brief, obtained from chart review: She has a hx of hyperthyroidism diagnosed when in 2006 when she was . At that time she was seeing Dr. Chan, and was on PTU. She later underwent MCPHERSON with 8.63 mCi of I-131 on 01/05/2008. She was restarted on tapazole 6 weeks later due to symptoms She was euthyroid later, followed by hypothyroidism leading to initiation of LT4 She appears to have undergone FNA of left thyroid lobe also in 2007 (dated 01/02/1008 as well on charts) with limited cellularity She had cystic nodule, 0.795 x 0.337 cm on sagittal view on left, aspirated . FNA was inadequate cellularity, but benign, cystic contents. I will wait to repeat anultrasound for a year or more A second biopsy was intended, but patient reports this was never done, and rather ablation was done, and reports she was immediately again- likely in 04/2008 per chart review Current treatment: Levothyroxine 137 mcg daily since last week Prior treatment: Tirosint 175 mcg daily Changes made based on most recent labs in 09/2024 General symptoms: Fatigue: depends Weight change: no Appetite change: she eats multiple times a day due to hx of bariatric surgery (lost from 300 lbs tonow at 135 lbs after surgery) Menstrual irregularities: partial hysterectomy done due to abnormal periods, completion done last year due to pain in abdomen Temperature intolerance: cold intolerance always Sleep is fine Sometimes has tremors She takes flintstone Chewables and calcium, Vit E and B12 She also underwent Gastric bypass in Sep 2022 Experiences Hypoglycemia intermittently, recently in 07/2024. Had a hypoglycemic seizure Has a glucose log brought in- most sugars are above 75 mg/dl, some in 200s. Review of the log does not indicate lows below 60 mg/dl She takes small frequent meals as she reports. She had dietitian visit early on after surgery. Interval history: 12/21/24: She asks if she could have her thyroid removed as her thyroid is not controlled When I told her that the thyroid is not doing anything, and and has been killed, she asks what the medication is doing if her thyroid has been killed No specific thyroid concerning symptoms reported other than those reported on previous visit She did not discuss any concerns with regards to hypoglycemia either REVIEW OF SYSTEMS: 10 point ROS was reviewed and negative unless indicated in the HPI ALLERGIES: ALLERGIES Allergen Reactions Nsaids (Non-Steroid* Other: See Comments Due to bariatric surgery Codeine Other: See Comments Dizziness- (all forms/doses)-cannot take cough syrup with codeine Citalopram GI Upset Nausea and vomiting [place] GI Upset stomach pain MEDICATIONS: Current Outpatient Medications on File Prior to Visit Medication Sig ONETOUCH ULTRA TEST test strip 1 Each once daily. ONETOUCH ULTRA2 METER 1 Each. hydrOXYzine HCl (ATARAX) 50 mg tablet Take 50 mg by mouth three times a day as needed for anxiety. ONETOUCH DELICA PLUS LANCET 33 gauge 1 Each once daily. levothyroxine (SYNTHROID) 137 mcg tablet Take 1 tablet by mouth every afternoon. potassium chloride (K-TAB) 10 mEq tablet Take 1 tablet by mouth every afternoon. pantoprazole DR (PROTONIX) 40 mg tablet Take 40 mg by mouth once daily. vilazodone (VIIBRYD) 20 mg tablet Take 20 mg by mouth once daily. estradiol (CLIMARA) 0.075 mg/24 hr Apply 1 Patch as directed one time a week. to lower abd or buttocks. rosuvastatin (CRESTOR) 40 mg tablet allopurinol (ZYLOPRIM) 100 mg tablet MULTIVITAMIN ORAL Take by mouth. Flinstone chewables CALCIUM ORAL Take by mouth. cyanocobalamin/folic acid (VITAMIN S32-FCJUY ACID) 1,000-400 mcg lozg Dissolve under the tongue. ALPRAZolam (XANAX) 0.25 mg tablet Take 1 tablet by mouth once daily as needed for Anxiety. albuterol HFA (VENTOLIN HFA) 90 mcg/actuation inhaler Inhale 2 Puffs as instructed every 4 hours asneeded for Wheezing/Shortness of Breath. No current facility-administered medications on file prior to visit. PAST MEDICAL HISTORY: PAST MEDICAL HISTORY Diagnosis Date Asthma 03/2016 + VICKIE at [facility]. Depressive disorder, not elsewhere classified Encounter for [...] Viral pneumonia, unspecified 2000 Pneumonia PAST SURGICAL HISTORY: PAST SURGICAL HISTORY Procedure Laterality Date APPENDECTOMY 01/2019 DELIVERY ONLY 2006, 2006, 2008 , low cervical X3 GASTRIC BYPASS HX 09/20/2023 IUD INSERTION (PHARMACE[employer]ICAL SCIENTIST DEPT)_*FL 07/17/2007 Mirena IUD REMOVAL (PHARMACEUTICAL SCIENTIST DEPT)_*FL 10/23/2007 Mirena L'SCOPE DX W/WO BRUSHINGS/WASHINGS 03/17/2023 LIG/TRNSXJ FLP TUBE ABDL/VAG APPR UNI/BI 2009 Tubal ligation PAST SURGICAL HISTORY OF 1986 Eye surgery TOTAL ABDOMINAL HYSTERECT W/WO RMVL TUBE OVARY 04/22/2011 WOJCIECH FAMILY HISTORY: FAMILY HISTORY Problem Relation Age of Onset Hypertension Mother Breast Cancer Mother Diabetes Father Stroke Father Cancer Maternal Grandmother UTERINE CANCER COPD Maternal Grandmother Emphysema Thyroid No Family History SOCIAL HISTORY: Social History Tobacco Use Smoking status: Never Passive exposure: Never Smokeless tobacco: Never Vaping Use Vaping status: Never Used Substance Use Topics Alcohol use: No Drug use: No PHYSICAL EXAM: BP 118/74 (BP Site: Right Arm, BP Position: Sitting, BP Cuff Size: Regular Adult) Pulse 60 Resp20 Ht 152.4 cm (5') Wt 61.1 kg (134 lb 12.8 oz) LMP 03/12/2011 SpO2 100% BMI 26.33 kg/m General: Alert and oriented x3, no acute distress, thin built Eyes: Anicteric sclera. Extraocular movements are intact. Neck supple, no cervical lymphadenopathy Thyroid: shrunken thyroid gland, no bruit Lungs: Breathing unlabored on room air Heart regular rate and rhythm Musculoskeletal: Muscular strength intact, No joint swelling, deformity, or tenderness Neuro: Gait normal. No focal findings Extremities: without edema, no deformities, no tremors of outstretched arms Skin: no rashes/ erythema LAB: TSH Date Value Ref Range Status 10/17/2024 0.119 (L) 0.270 - 4.200 mIU/L Final Comment: If the patient is , TSH reference range varies by gestational period: First Trimester (weeks 9-12): 0.180-2.990 mIU/L Second Trimester: 0.110-3.980 mIU/L Third Trimester: 0.480-4.710 mIU/L Massimo Dick et al. A Practical Approach for the Verifications and Determination of Site- and Trimester-Specific Reference Intervals for Thyroid Function tests in . Thyroid, 2019:29:3:412-420.Joselo Katz, et al. 2017 Guidelines of the [place] [employer] for the Diagnosis and Management of Thyroid Disease during and the . Thyroid, 2017:27:3:315-389. 02/02/2022: TSH 0.34 mIU/L (0.27-4.2) TSH over few months: 09/11/2024-0.043 IU/mL (0.358-3.74) 08/21/2024 - 0.143 08/03/2024 - 0.279 07/23/2024 - 143.0 05/23/2024 - 132.0 11/21/2023 - 32.9 07/21/2023 - 50.1 05/19/2023 -8.84 02/25/2023 -15.8 02/02/2023 - 0.83 Latest Ref Rng 10/17/2024 TSH 0.270 - 4.200 mIU/L 0.119 (L) Free T4 0.9 - 1.7 ng/dL 1.9 (H) Legend: (L) Low (H) High FNAB: 01/02/2008: SPECIMEN SUBMITTED A: THYROID LEFT, FINE NEEDLE ASPIRATE FINAL DIAGNOSIS A. THYROID LEFT, FINE NEEDLE ASPIRATE: LIMITED CELLULARITY NEGATIVE FOR MALIGNANT CELLS. RARE FOLLICULAR CELLS AND CYST CONTENTS. ASSESSMENT/PLAN: Postablative hypothyroidism: Currently on 137 mcg of levothyroxine (generic) once daily Taking appropriately Based on labs, reviewed reducing dose to 125 mcg daily Reviewed checking labs in 6 to 8 weeks from now for checking adequacy of replacement Will adjust dose pending results Hypoglycemia: not addressed today Post bariatric surgery/reactive hypoglycemia No BG less tahn 78 mg/dl from review of glucose log She had an episode of hypoglycemic seizures as reported. Reactive hypoglycemia diet given, which she reports she was never given in the past after surgery. She is advised to continue to check BG when symptoms of hypoglycemia occur - hypoglycemia correction reviewed If conservative approach not helpful, will consider medications Follow up in 3 months with thyroid labs All questions welcomed and answered to satisfaction I again explained to her about function of LT4, differences between tapazole and LT4, and what the labs are interpreted as Patient understands and agrees with the plan discussed. The assessment and benefits/risks of the plan were discussed with the patient who expressed understanding and was agreeable to that which is noted above. Medical Decision Making: Problems: Moderate: 1+ chronic illnesses with change Data: Unique test result(s) reviewed: 2 Unique test(s) ordered: 2 Risk: Moderate: Drug management Medical Decision Making Level: 4 - Moderate Alfred Hood MD Endocrinology Associate Staff [facility] Endocrinology and Metabolism [place] [phone] documented in this encounterThe [facility]02-11-2025 Evaluation note* Diagnosis Onset Date Resolution Status Admit Date Chronic pain of toe of right foot acute November 20 10:56am Elevated alpha fetoprotein acute November 20, 2024 10:56am NAFLD (nonalcoholic fatty liver disease) chronic November 20 10:56am Diarrhea acute February 21, 2025 1:37pm Elevated lipase acute February 21, 2025 1:37pm [facility] Work Phone: 1(361) 882-735402-11-2025 Evaluation note* Diagnosis Onset Date Resolution Status Admit Date Chronic pain of toe of right foot acute November 20 10:56am Elevated alpha fetoprotein acute November 20, 2024 10:56am NAFLD (nonalcoholic fatty liver disease) chronic November 20 10:56am Chronic pain of toe of right foot acute February 21, 2025 1 :37pm Diarrhea acute February 21, 2025 1:37pm Elevated alpha fetoprotein acute February 21, 2025 1:37pm Elevated lipase acute February 21, 2025 1:37pm NAFLD (nonalcoholic fatty liver disease) chronic February 21, 2025 1 :37pm [facility] Work Phone: 1(504) 397-870002-11-2025 Evaluation note* Diagnosis Onset Date Resolution Status Admit Date Chronic pain of toe of right foot acute November 20 10:56am Elevated alpha fetoprotein acute November 20, 2024 10:56am NAFLD (nonalcoholic fatty liver disease) chronic November 20 10:56am Chronic pain of toe of right foot acute February 21, 2025 1 :37pm Diarrhea acute February 21, 2025 1:37pm Elevated alpha fetoprotein acute February 21, 2025 1:37pm Elevated lipase acute February 21, 2025 1:37pm NAFLD (nonalcoholic fatty liver disease) chronic February 21, 2025 1 :37pm Gallbladder sludge acute March 082024 8:43am RUQ pain acute March 08, 2025 8:43am NAFLD (nonalcoholic fatty liver disease) chronic March 08, 2025 8 :43am [facility] Work Phone: 1(936) 722-322901-05-2025 [facility]01-04-2025 Evaluation note* Diagnosis Onset Date Resolution Status Admit Date Abdominal pain acute October 8:01pm Diarrhea acute October 13, 2 025 8:01pm Elevated lipase acute October 132024 8:01pm Ileus, unspecified acute Januar y 2024 8:01pm Nausea & vomiting resolved October 13, 2024 8:01pm Acquired hammer toe deformit y of lesser toe of right foot acute Tez jaun 2024 11:20am Chronic pain of toe of right foot acute October 19 11:20am Chronic pain of toe of right foot acute November 20 025 10:56am Elevated alpha fetoprotein acute November 20, 2024 10:56am NAFLD (nonalcoholic fatty liver disease) chronic November 20 025 10:56am [facility] Work Phone: 1(245) 180-496112-19-2024 Telephone encounter Note* Telephone Encounter - Rizwana Melendez RN - 09/27/2024 2:55 PM EST Pt has been cleared for podiatric surgery with Dr. Chin at [facility]. Document will be scanned into Pt's chart. Clearance letter faxed to surgeon's office. Confirmation received. Pt notified. Rizwana Melendez RN September 27, 2024 2:57 PM [facility]12-19-2024 Miscellaneous Notes* Telephone Encounter - Rizwana Melendez RN - 09/27/2024 2:55 PM EST Pt has been cleared for podiatric surgery with Dr. Chin at [facility]. Document will be scanned into Pt's chart. Clearance letter faxed to surgeon's office. Confirmation received. Pt notified. Rizwana Melendez RN September 27, 2024 2:57 PM documented in this encounterThe [facility]12-12-2024 Telephone encounter Note * Telephone Encounter - Palma Joseph MA - 09/20/2024 1:31 PM EST Phoned patient to relay message from provider that clearance paperwork needs to be faxed to this office. Fax number given to patient. Palma Joseph MA [facility]12-12-2024 Miscellaneous Notes* Telephone Encounter - Palma Joseph MA - 09/20/2024 1:31 PM EST Phoned patient to relay message from provider that clearance paperwork needs to be faxed to this office. Fax number given to patient. Palma Joseph MA * Telephone Encounter - Patria Penn LPN - 09/19/2024 10:25 AM EST Patient forgot to tell provider at [facility] yesterday that she required preoperative clearance for her upcoming foot surgery with Dr. Chin at the [facility]. Fax for his office is [phone] Patria Penn LPN documented in this encounterThe [facility]12-11-2024 Telephone encounter Note * Telephone Encounter - Patria Penn LPN - 09/19/2024 10:25 AM EST Patient forgot to tell provider at [facility] yesterday that she required preoperative clearance for her upcoming foot surgery with Dr. Chin at the [facility]. Fax for his office is [phone] Patria Penn LPN [facility]12-10-2024 Instructions* Patient Instructions* Alfred Hood MD - 09/18/2024 3:29 PM EST Can continue same dose of Levothyroxine at this time, due to recent dose change. Please do labs in 6 to 8 weeks from now Avoid any supplements containing biotin for about 3 days to 5 days before lab draw Eating Guidelines for Reactive Hypoglycemia Reactive hypoglycemia is a low blood glucose (sugar) that occurs within four hours after eating. People that have reactive hypoglycemia may have symptoms that include anxiety, fast heartbeat, irritability (feeling very stressed or nervous), shaking, sweating, hunger, dizziness, blurred vision, difficulty in thinking, and faintness. If you have these symptoms, see your doctor. If your doctor thinks you have reactive hypoglycemia, following these tips may help keep your blood glucose levels steady and prevent these symptoms. Choose a variety of foods for good health. Follow ChooseMyPlate.gov. This will guide you on the number of servings you need each day from the four food groups (Vegetables and Fruit, Grain Products, Milk and Alternatives, Meat and Alternatives). Eat five to six small meals or snacks a day, or about every three hours. You may find that you have symptoms of reactive hypoglycemia if you go too long between eating. Choose high fiber and low glycemic index foods often, at each meal and snack. These can help keep blood glucose levels steady. Many high fiber foods are also low glycemic index foods. - High fiber foods include lentils and dried beans and peas, whole grains (oats, barley, wheat, rye, brown rice), foods made from whole grains and whole vegetables and fruits (not juice). Drink plenty of fluids (water and other beverages) when you increase the fiber in your diet. - Low glycemic index foods include lentils, kidney beans, chickpeas, whole grain pumpernickel bread, sweet potato, apples, plums and oranges. For information on low glycemic index foods Eat protein foods at each meal and snack to help keep blood glucose levels even. Good sources of protein include: meat or poultry, fish, eggs, dried peas, beans and lentils, tofu, peanut butter, nuts, seeds, soymilk, milk, yogurt, cheese. Limit sweet foods. If you eat them, have only small amounts along with, or following your meal. Sweet foods include juice, sugar, candies, jam and honey, sweet desserts. Mixed alcoholic drinks (alcohol with a sugary mixer like pop) can lower blood glucose levels. Discuss alcohol use with your doctor. If you choose to drink alcohol, mix it with water, club soda or a diet soft drink rather than a high sugar presser, have it along with a meal or snack, and drink only in moderation. Moderate alcohol intake is up to 1 to 2 drinks a day, and no more than 14 drinks a week for men or 9 drinks a week for women. One drink is the equivalent of: 360 mL (12 oz) bottle of beer (5% alcohol) 150 mL (5 oz) table wine (12% alcohol) 45 mL (1 oz) spirits (40% alcohol) 90 mL (3 oz) serving of fortified wine, such as raissa or port (18% Alcohol). Avoid caffeine if you find that it makes your symptoms worse. Caffeine is found in coffee, tea, cola beverages and chocolate. Try decaffeinated beverages instead. documented in this encounterThe [facility] Hospital [facility]woods12-10-2024 NoteHNO ID: [id number] Author: ALFRED HOOD MD Service: ? Author Type: Physician Type: Progress Notes Filed: 09/18/2024 18:36 Note Text: [facility] Initial Clinic Visit Note Subjective: Romain Mendoza is a 48 year old female here to establish care for hypothyroidism. She is self referred, transferring care from Dr. Matthias Mendieta in [place] History in brief, obtained from chart review: She has a hx of hyperthyroidism diagnosed when in 2006 when she was . At that time she was seeing Dr. Chan, and was on PTU. She later underwent MCPHERSON with 8.63 mCi of I-131 on 01/05/2008. She was restarted on tapazole 6 weeks later due to symptoms She was euthyroid later, followed by hypothyroidism leading to initiation of LT4 She appears to have undergone FNA of left thyroid lobe also in 2007 (dated 01/02/1008 as well on charts) with limited cellularityShe had cystic nodule, 0.795 x 0.337 cm on sagittal view on left, aspirated . FNA was inadequate cellularity, but benign, cystic contents. I will wait to repeat an ultrasound for a year or more. A second biopsy was intended, but patient reports this was never done, and rather ablation was done, and reports she was immediately again- likely in 04/2008 per chart review Current treatment: Levothyroxine 137 mcg daily since last week Prior treatment: Tirosint 175 mcg daily Changes made based on most recent labs in 09/2024 General symptoms: Fatigue: depends Weight change: no Appetite change: she eats multiple times a day due to hx of bariatric surgery (lost from 300 lbs to now at 135 lbs after surgery) Menstrual irregularities: partial hysterectomy done due to abnormal periods, completion done last year due to pain in abdomen Temperature intolerance: cold intolerance always Sleep is fine Sometimes has tremors She takes flintstone Chewables and calcium, Vit E and B12 She also underwent Gastric bypass in Sep 2022 Experiences Hypoglycemia intermittently, recently in 07/2024. Had a hypoglycemic seizure Has a glucose log brought in- most sugars are above 75 mg/dl, some in 200s. Review of the log does not indicate lows below 60 mg/dl She takes small frequent meals as she reports. She had dietitian visit early on after surgery. REVIEW OF SYSTEMS: 10 point ROS was reviewed and negative unless indicated in the HPI ALLERGIES: ALLERGIES Allergen Reactions Citalopram GI Upset Nausea and vomiting Codeine Other: See Comments Dizziness- (all forms/doses)-cannot take cough syrup with codeine [place] GI Upset stomach pain Nsaids (Non-Steroid* Other: See Comments Due to bariatric surgery MEDICATIONS: Current Outpatient Medications on File Prior to Visit Medication Sig ONETOUCH ULTRA TEST test strip 1 Each once daily. ONETOUCH ULTRA2 METER 1 Each. hydrOXYzine HCl (ATARAX) 50 mg tablet Take 50 mg by mouth three times a day as needed for anxiety. ONETOUCH DELICA PLUS LANCET 33 gauge 1 Each once daily. levothyroxine (SYNTHROID) 137 mcg tablet Take 1 tablet by mouth every afternoon. potassium chloride (K-TAB) 10 mEq tablet Take 1 tablet by mouth every afternoon. pantoprazole DR (PROTONIX) 40 mg tablet Take 40 mg by mouth once daily. vilazodone (VIIBRYD) 20 mg tablet Take 20 mg by mouth once daily. estradiol (CLIMARA) 0.075 mg/24 hr Apply 1 Patch as directed one time a week. to lower abd or buttocks. rosuvastatin (CRESTOR) 40 mg tablet allopurinol (ZYLOPRIM) 100 mg tablet MULTIVITAMIN ORAL Take by mouth. Flinstone chewables CALCIUM ORAL Take by mouth. cyanocobalamin/folic acid (VITAMIN O36-CHFVS ACID) 1,000-400 mcg lozg Dissolve under the tongue. ALPRAZolam (XANAX) 0.25 mg tablet Take 1 tablet by mouth once daily as needed for Anxiety. albuterol HFA (VENTOLIN HFA) 90 mcg/actuation inhaler Inhale 2 Puffs as instructed every 4 hours as needed for Wheezing/Shortness of Breath. No current facility-administered medications on file prior to visit. PAST MEDICAL HISTORY: PAST MEDICAL HISTORY Diagnosis Date Asthma 03/2016 + VICKIE at [facility]. Depressive disorder, not elsewhere classified Encounter for [...] Viral pneumonia, unspecified 2000 Pneumonia PAST SURGICAL HISTORY: PAST SURGICAL HISTORY Procedure Laterality Date APPENDECTOMY 01/2019 DELIVERY ONLY 2006, 2007, 2009 , low cervical X3 GASTRIC BYPASS HX 09/20/2022 Reun Y IUD INSERTION (PHARMACEUTICAL SCIENTIST DEPT)_*[place] 07/17/2007 Nv (more content not included)...[facility]12-10-2024 History of Present illness Narrative* Alfred Hood MD - 09/18/2024 2:53 PM EST [facility] Initial Clinic Visit Note Subjective: Romain Mendoza is a 48 year old female here to establish care for hypothyroidism. She is self referred, transferring care from Dr. Matthias Mendieta in [place] History in brief, obtained from chart review: She has a hx of hyperthyroidism diagnosed when in 2006 when she was . At that time she was seeing Dr. Chan, and was on PTU. She later underwent MCPHERSON with 8.63 mCi of I-131 on 01/05/2008. She was restarted on tapazole 6 weeks later due to symptoms She was euthyroid later, followed by hypothyroidism leading to initiation of LT4 She appears to have undergone FNA of left thyroid lobe also in 2007 (dated 01/02/1008 as well on charts) with limited cellularityShe had cystic nodule, 0.795 x 0.337 cm on sagittal view on left, aspirated . FNA was inadequate cellularity, but benign, cystic contents. I will wait to repeat an ultrasound for a year or more. A second biopsy was intended, but patient reports this was never done, and rather ablation was done, and reports she was immediately again- likely in 04/2008 per chart review Current treatment: Levothyroxine 137 mcg daily since last week Prior treatment: Tirosint 175 mcg daily Changes made based on most recent labs in 09/2024 General symptoms: Fatigue: depends Weight change: no Appetite change: she eats multiple times a day due to hx of bariatric surgery (lost from 300 lbs tonow at 135 lbs after surgery) Menstrual irregularities: partial hysterectomy done due to abnormal periods, completion done last year due to pain in abdomen Temperature intolerance: cold intolerance always Sleep is fine Sometimes has tremors She takes flintstone Chewables and calcium, Vit E and B12 She also underwent Gastric bypass in Sep 2022 Experiences Hypoglycemia intermittently, recently in 07/2024. Had a hypoglycemic seizure Has a glucose log brought in- most sugars are above 75 mg/dl, some in 200s. Review of the log does not indicate lows below 60 mg/dl She takes small frequent meals as she reports. She had dietitian visit early on after surgery. REVIEW OF SYSTEMS: 10 point ROS was reviewed and negative unless indicated in the HPI ALLERGIES: ALLERGIES Allergen Reactions Citalopram GI Upset Nausea and vomiting Codeine Other: See Comments Dizziness- (all forms/doses)-cannot take cough syrup with codeine [place] GI Upset stomach pain Nsaids (Non-Steroid* Other: See Comments Due to bariatric surgery MEDICATIONS: Current Outpatient Medications on File Prior to Visit Medication Sig ONETOUCH ULTRA TEST test strip 1 Each once daily. ONETOUCH ULTRA2 METER 1 Each. hydrOXYzine HCl (ATARAX) 50 mg tablet Take 50 mg by mouth three times a day as needed for anxiety. ONETOUCH DELICA PLUS LANCET 33 gauge 1 Each once daily. levothyroxine (SYNTHROID) 137 mcg tablet Take 1 tablet by mouth every afternoon. potassium chloride (K-TAB) 10 mEq tablet Take 1 tablet by mouth every afternoon. pantoprazole DR (PROTONIX) 40 mg tablet Take 40 mg by mouth once daily. vilazodone (VIIBRYD) 20 mg tablet Take 20 mg by mouth once daily. estradiol (CLIMARA) 0.075 mg/24 hr Apply 1 Patch as directed one time a week. to lower abd or buttocks. rosuvastatin (CRESTOR) 40 mg tablet allopurinol (ZYLOPRIM) 100 mg tablet MULTIVITAMIN ORAL Take by mouth. Flinstone chewables CALCIUM ORAL Take by mouth. cyanocobalamin/folic acid (VITAMIN Z48-ZEDOP ACID) 1,000-400 mcg lozg Dissolve under the tongue. ALPRAZolam (XANAX) 0.25 mg tablet Take 1 tablet by mouth once daily as needed for Anxiety. albuterol HFA (VENTOLIN HFA) 90 mcg/actuation inhaler Inhale 2 Puffs as instructed every 4 hours asneeded for Wheezing/Shortness of Breath. No current facility-administered medications on file prior to visit. PAST MEDICAL HISTORY: PAST MEDICAL HISTORY Diagnosis Date Asthma 03/2016 + VICKIE at [facility]. Depressive disorder, not elsewhere classified Encounter for [...] Viral pneumonia, unspecified 2000 Pneumonia PAST SURGICAL HISTORY: PAST SURGICAL HISTORY Procedure Laterality Date APPENDECTOMY 01/2019 DELIVERY ONLY 2005, 2006, 2008 , low cervical X3 GASTRIC BYPASS HX 09/20/2022 Reun Y IUD INSERTION (PHARMACEUTICAL SCIENTIST DEPT)_*FL 07/17/2007 Mirena IUD REMOVAL (PHARMACEUTICAL SCIENTIST DEPT)_*FL 10/23/2007 Mirena L'SCOPE DX W/WO BRUSHINGS/WASHINGS 03/17/2023 LIG/TRNSXJ FLP TUBE ABDL/VAG APPR UNI/BI 2009 Tubal ligation PAST SURGICAL HISTORY OF 1986 Eye surgery TOTAL ABDOMINAL HYSTERECT W/WO RMVL TUBE OVARY 04/22/2011 [facility] FAMILY HISTORY: FAMILY HISTORY Problem Relation Age of Onset Hypertension Mother Breast Cancer Mother Diabetes Father Stroke Father Cancer Maternal Grandmother UTERINE CANCER COPD Maternal Grandmother Emphysema SOCIAL HISTORY: Social History Tobacco Use Smoking status: Never Smokeless tobacco: Never Vaping Use Vaping status: Never Used Substance Use Topics Alcohol use: No Drug use: No PHYSICAL EXAM: LMP 03/12/2011 Last 3 Encounter Wt Readings: Date: Wt: 12/06/2023 62.6 kg (138 lb) 05/03/2023 64 kg (141 lb) 03/23/2023 65.3 kg (144 lb) General: Alert and oriented x3, no acute distress, thin built Eyes: Anicteric sclera. Extraocular movements are intact. Neck supple, no cervical lymphadenopathy Thyroid: shrunken thyroid gland, no bruit Lungs: Breathing unlabored, clear to auscultation. No wheezing, rhonchi, rales Heart regular rate and rhythm, no murmer Musculoskeletal: Muscular strength intact, No joint swelling, deformity, or tenderness Neuro: Gait normal. Extremities: without edema, no deformities, no tremors of outstretched arms Skin: no rashes/ erythema LAB: TSH Date Value Ref Range Status 07/30/2016 77.280 (H) 0.400 - 5.500 uU/mL Final Comment: If the patient is , TSH reference range varies by gestational period: First Trimester 0.1-2.5 uU/mL Second Trimester 0.2-3.0 uU/mL Third Trimester 0.3-3.0 uU/mL 02/02/2022: TSH 0.34 mIU/L (0.27-4.2) TSH over few months: 09/11/2024-0.043 IU/mL (0.358-3.74) 08/21/2024 - 0.143 08/03/2024 - 0.279 07/23/2024 - 143.0 05/23/2024 - 132.0 11/21/2023 - 32.9 07/21/2023 - 50.1 05/19/2023 -8.84 02/25/2023 -15.8 02/02/2023 - 0.83 FNAB: 01/02/2008: SPECIMEN SUBMITTED A: THYROID LEFT, FINE NEEDLE ASPIRATE FINAL DIAGNOSIS A. THYROID LEFT, FINE NEEDLE ASPIRATE: LIMITED CELLULARITY NEGATIVE FOR MALIGNANT CELLS. RARE FOLLICULAR CELLS AND CYST CONTENTS. ASSESSMENT/PLAN: Postablative hypothyroidism: Currently on 137 mcg of levothyroxine (generic) once daily - since one week Taking appropriately Reviewed checking alsb in 6 to 8 weeks from now for checking adequacy of replacement Will adjust dose pending results Till then she can continue same dose Hypoglycemia: Post bariatric surgery/reactive hypoglycemia No BG less tahn 78 mg/dl from review of glucose log She had an episode of hypoglycemic seizures as reported. Reactive hypoglycemia diet given, which she reports she was never given in the past after surgery. She is advised to continue to check BG when symptoms of hypoglycemia occur - hypoglycemia correction reviewed If conservative approach not helpful, will consider medications Follow up in 9 weeks with thyroid labs All questions welcomed and answered to satisfaction Patient understands and agrees with the plan discussed. The assessment and benefits/risks of the plan were discussed with the patient who expressed understanding and was agreeable to that which is noted above. I spent a total of 56 minutes on the date of the service which included preparing to see the patient, [id number] patient care, completing clinical documentation, obtaining and/or reviewing separately obtained history, performing a medically appropriate examination, counseling and educating the pat ient/family/caregiver, ordering medications, tests, or procedures, independently interpreting results (not separately reported), and communicating results to the patient/family/caregiver. Alfred Hood MD Endocrinology Associate Staff [facility] Special[facility] Endocrinology and Metabolism [place] [phone] documented in this encounterThe [facility]11-13-2024 Evaluation note* Diagnosis Onset Date Resolution Status Admit Date Elevated alpha fetoprotein acute August 22, 2024 9:48am NAFLD (nonalcoholic fatty liver disease) chronic August 22, 2 024 9:48am Abdominal pain acute October 8:01pm Diarrhea acute October 13, 2 025 8:01pm Elevated lipase acute October 132024 8:01pm Ileus, unspecified acute Januar y 2024 8:01pm Nausea & vomiting resolved October 13, 2024 8:01pm Acquired hammer toe deformit y of lesser toe of right foot acute Tez jaun 2024 11:20am Chronic pain of toe of right foot acute October 19 11:20am Chronic pain of toe of right foot acute November 20, 025 10:56am Elevated alpha fetoprotein acute November 20, 2024 10:56am NAFLD (nonalcoholic fatty liver disease) chronic November 20, 025 10:56am [facility] Work Phone: 1(814) 550-317110-04-2024 History of Present illness Narrative* Amy Violetta Jordanberly, RT(R) - 07/13/2024 11:20 AM EDT Radiology Service Progress Note DATE OF SERVICE: [...] PATIENT PRESENTS WITH AN IMPLANTABLE OR ATTACHED CHILD PROTECTION SPECIALIST: No ALLERGIES: Reviewed and unchanged CONTRAST ALLERGY: [...] creatinine assay has traceable calibration to isotope dilution- mass spectrometry. Refer to KDIGO guidelines for clinical interpretation. In patients with unstable renal function, e.g. those with acute kidney injury, the eGFRmay not accurately reflect actual GFR. eGFR- Date Value Ref Range Status 12/05/2015 >60 Final P.O.C.T. RESULTS: POC done: Yes, See Lab Tab July 13, 2024 TREATMENT: N/A PERIPHERAL IV DATA: Ambulatory: A peripheral IV was started in the Left antecubital site with a Angio cath: 22 gauge. RADIOLOGY DEPARTMENT: CT; Exam(s) Completed: Pelvis SIGNATURE: ESTRADA Cruz) PATIENT NAME: Romain Mendoza DATE: July 13, 2024 TIME: 1:34 PM documented in this encounterThe [facility] Hospital [facility]10-04-2024 NoteHNO ID: [id number] Author: INGE JERNIGAN RT(R) Service: ? Author Type: Dynamicist Type: Progress Notes Filed: 07/13/2024 13:34 Note [...] PATIENT PRESENTS WITH AN IMPLANTABLE OR ATTACHED CHILD PROTECTION SPECIALIST: No ALLERGIES: Reviewed and unchanged CONTRAST ALLERGY: [...] Mendoza DATE: July 13, 2024 TIME: 1:34 [facility]09-23-2024 Telephone encounter Note* Telephone Encounter - Gudelia Mi MD - 07/02/2024 12:54 PM EDT Spoke with patient about abnormal AFP. She [...] ovary area for remnant. Gudelia Mi MD [facility]09-23-2024 Miscellaneous Notes* Telephone Encounter - Gudelia Mi MD - 07/02/2024 12:54 PM EDT Spoke with patient about abnormal AFP. She [...] ovary area for remnant. Gudelia Mi MD * Telephone Encounter - Bee Gracia RN - 06/28/2024 4:26 PM EDT Pt notified and voiced understanding. Pt states she has not recently had a CT of her pelvis done and is agreeable to having this completed. Would like to complete in this [facility] building rather than going elsewhere. Bee Gracia RN * Telephone Encounter - Gudelia Mi MD - 06/28/2024 4:17 PM EDT I really don't think an ovarian tumor is the cause of this being elevated. Has she had a CT of the pelvis? If not I would be happy to order one but since both ovaries are removed and were benign I doubt industrial relations specialist cause. If has had pelvic/abd ct in last few months no need to repeat. Gudelia Mi MD * Telephone Encounter - Bharti Howard RN - 06/28/2024 3:24 PM EDT Patient recently had workup with Dr. An and was told her tumor marker AFP was elevated and to follow up with PHARMACEUTICAL SCIENTIST provider. Patient questioning if she does need to follow up here because she had hysterectomy and both ovaries have been removed. Lab result from [facility] to to review. Please advise. Bharti Howard RN documented in this encounterThe [facility]09-19-[facility]24 Telephone encounter Note * Telephone Encounter - Bee Gracia RN - 06/28/2024 4:26 PM EDT Pt notified and voiced understanding. Pt states she has not recently had a CT of her pelvis done and is agreeable to having this completed. Would like to complete in this [facility] building rather than going elsewhere. Bee Gracia RN [facility]09-19-2024 Telephone encounter Note* Telephone Encounter - Gudelia Mi MD - 06/28/2024 4:17 PM EDT I really don't think an ovarian tumor is the cause of this being elevated. Has she had a CT of the pelvis? If not I would be happy to order one but since both ovaries are removed and were benign I doubt industrial relations specialist cause. If has had pelvic/abd ct in last few months no need to repeat. Gudelia Mi MD [facility]09-19-2024 Telephone encounter Note* Telephone Encounter - Bharti Howard RN - 06/28/2024 3:24 PM EDT Patient recently had workup with Dr. An and was told her tumor marker AFP was elevated and to follow up with PHARMACEUTICAL SCIENTIST provider. Patient questioning if she does need to follow up here because she had hysterectomy and both ovaries have been removed. Lab result from [facility] to to review. Please advise. Bharti Howard RN [facility]02-27-2024 History of Present illness Narrative* Gudelia Mi MD - 12/06/2023 10:56 AM EST Romain Mendoza is a 48 year old female who presents for problem visit for c/o hot flashes and some other events where she lightheaded, blurry vision and diaophoretic and feels like she is going to pass out. Takes a sugar tablet and 10-15 min able to take a nap and then feels better. Happens aboutonce a week. Feels that is different than the hot flashes and night sweats. Has night sweat about once a month. Is on climara and feels that has helped for the most part. OB History T5 L5 SAB0 IAB0 Ectopic0 Multiple0 Live Births5 Rod And Tube Straightener History LMP: 03/12/2011, Hysterectomy Age at Menarche: Age at First : Age at Menopause: Rod And Tube Straightener History Comments: Sexual Activity: Yes; Male; hysterectomy Contraception: Surgical PAST MEDICAL HISTORY Diagnosis Date Asthma 03/2016 + VICKIE at [facility]. Depressive disorder, not elsewhere classified Encounter for [...] BYPASS HX 09/20/2022 Reun Y IUD INSERTION (PHARMACEUTICAL SCIENTIST DEPT)_*FL 07/17/2007 Mirena IUD REMOVAL (PHARMACEUTICAL SCIENTIST DEPT)_*FL 10/23/2007 Mirena L'SCOPE DX W/WO BRUSHINGS/WASHINGS 03/17/2023 LIG/TRNSXJ FLP TUBE ABDL/VAG APPR UNI/BI 2009 Tubal ligation PAST SURGICAL HISTORY OF 1986 Eye surgery TOTAL ABDOMINAL HYSTERECT W/WO RMVL TUBE OVARY 04/22/2011 [facility] FAMILY HISTORY Problem Relation Age of Onset [...] ORAL Take by mouth. cyanocobalamin/folic acid (VITAMIN D59-JCOVG ACID) 1,000-400 mcg lozg Dissolve under the tongue. ALPRAZolam (XANAX) 0.25 mg tablet Take 1 tablet by mouth once daily as needed for Anxiety. albuterol HFA (VENTOLIN HFA) 90 mcg/actuation inhaler Inhale 2 Puffs as instructed every 4 hours asneeded for Wheezing/Shortness of Breath. oxyCODONE IR (ROXICODONE) [...] lesions ASSESSMENT AND PLAN: Had mammogram at [facility] last week, up to date w/ this sugical menopause- d/w her recommend cont. estrogen patch for now, she agrees. Will continue current dose d/w her colon ca screening, has trouble w/ digestion since bariatric surgery and does not think shecan tolerate the prep for a colonoscopy. Pelvic pain improved since surgery Gudelia Mi MD Medical Decision Making: Problems: Low: Stable chronic illness Data: Unique test(s) ordered: 1 Risk: Low: Low risk from testing/treatment Medical Decision Making Level: 3 - Low documented in this encounterThe [facility]02-15-2024 History and physical note * Anaid Garsia MD - 11/24/2023 10:15 AM EST History Of Present Illness Romain Mendoza is [...] elevated (AST 61, ALT 72). She had PAK prior to weight loss surgery. She saw a railroad supervisor of engines yesterday and was told to continue to [...] 09/20/2022 LAPAROSCOPIC SIMONA EN Y GASTRIC BYPASS (FELISA KNEE CARTILAGE SURGERY RT KNEE MENISCUS OTHER [...] using C-PAP? No. GERD req. meds? No. Hyperlipid emia? yes. Still taking Cholesterol med? yes Hypertension? [...] K75.81 We reviewed the rules necessary for jail success after weight loss surgery. We discussed the need for lifelong nutritional supplementation after weight loss surgery and they were given a handout. We will obtain labwork at next visit. We discussed the importance of excercising with moderate intensity a minimum of five days per week for at least 30 minutes. We discussed that her high carb, lowprotein diet is resulting in persistent PAK and not feeling well. She will meet with the dietitiantoday to come up with sample meal plan and discuss tracking her choices and how they make her feel. Anaid Garsia MD [facility] Work Phone: 1(736) 763-782902-15-2024 History and physical note* Anaid Garsia MD - 11/24/2023 10:15 AM EST History Of Present Illness Romain Mendoza is [...] elevated (AST 61, ALT 72). She had PAK prior to weight loss surgery. 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 No. GERD req. meds? No. Hyperlipid emia? yes. Still taking Cholesterol med? yes Hypertension? 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 We discussed the need for lifelong nutritional supplementation after weight loss surgery and they were given a handout. We will obtain labwork at next visit. We discussed the importance of excercising with moderate intensity a minimum of five days per week for at least 30 minutes. We discussed that her high carb, lowprotein diet is resulting in persistent PAK and not feeling well. She will meet with the dietitiantoday to come up with sample meal plan and discuss tracking her choices and how they make her feel. Anaid Garsia MD documented in this [facility] Work Phone: 1(644) 150-236302-15-2024 History of Present illness Narrative* Stefania Canela LPN - 11/24/2023 10:15 AM EST Subjective Patient ID: Romain Mendoza is a [...] using C-PAP? No. GERD req. meds? No. Hyperlipid emia? yes. Still taking Cholesterol med? yes Hypertension? [...] LPN 11/16/23 11:21 AM documented in this [facility] Work Phone: 1(201) 635-683310-26-2023 Discharge summary Author Marva Das [facility] August 04, 2023 1:19pm Note Date/Time August 04, 2023 1 2:16pm [facility] Medical Records Department [address] [place] [address] Instructions for Home/Discharge Instructions 08/04/23 1216 MR#: [id number] Acct: [id number] Name: ROMAIN MENDOZA Rep #:[id number] : 1975 47 From: Marva Greene PCP: Dr. Carlos Chris MD Status:REG S DC Discharge Instructions Diet Discharge Diet: No restrictions Activity Discharge Activity: Return to Normal Activity Dressing / Incision Call your doctor if you observe: Fever of 101 or Higher, Inability to urinate and Inability to have a bowel movement Follow Up Care Please Follow Up With: Marva Das MD When: The office will call the patient to make follow-up arrangements Test Results: Test results from this visit will be discussed in further detail at your follow- up appointment, if applicable. Discharge Plan Admission Attending Provider: Marva Das Primary Care Provider: Carlos Chris Chi Discharge Orders/Prescriptions Prescriptions: New oxycodone-acetaminophen [Percocet] 5-325 mg tablet 1 tab PO Q8H PRN (Reason: pain) 3 Days Qty: 10 0RF cephalexin [cephalexin] 500 mg capsule 500 mg PO Q12 3 Days Qty: 6 0RF phenazopyridine [Pyridium] 200 mg tablet 200 mg PO TID PRN PRN (Reason: Bladder Spasms) 7 Days Qty: 30 0RF Continued rosuvastatin [Crestor] 40 mg tablet 40 mg PO DAILY Qty: 30 0RF alprazolam [Xanax] 0.5 mg tablet 0.5 mg PO QHS PRN (Reason: Anxiety) levothyroxine [Tirosint] 175 mcg capsule 175 mcg PO DAILY Qty: 90 1RF allopurinol 100 mg Tablet 100 mg PO DAILY B12 5,000-100 mcg Lozenge 1 sona SUBLINGUAL DAILY Flintstones Complete Tablet,Chewable 2 tab PO DAILY calcium citrate malate-vit D3 1 ea PO/SL DAILY vilazodone 10 mg tablet 20 mg PO QHS estradiol 0.075 mg/24 hr patch weekly 1 patch transdermal TH albuterol sulfate 90 mcg/actuation HFA aerosol inhaler 2 puff inhalation Q4H PRN (Reason: shortness of breath or wheezing) Qty: 1 6RF Rx Instructions: administer with spacer Referrals / Follow Up: Carlos Chris Chi, MD [Primary Care Provider] - Disposition Disposition (needs filled in before D/C Order can be placed): Home, Self Care 08/04/23 1319<Electronically signed by Marva Das MD>Marva Das MD CC: Dr. Carlos Chris MD ~ Signed [facility] Work Phone: [phone]) 135-712810-26-2023 Procedure [facility] 05-30-2023 History of Present illness Narrative* Sylvia Ayala, - 05/30/2023 1:00 PM EDT Images from the original note were not included. [facility] SECTION FOR MINIMALLY INVASIVE GYNECOLOGIC SURGERY OUTPATIENT [...] plan Sylvia Ayala DO documented in this encounterThe [facility]08-17-2023 Evaluation note* Encounter Date Diagnosis Assessment Notes Treatment Notes Treatment Clinical Notes May, B12 deficiency (ICD- 10 - E53.8) May, Malabsorption (ICD-1 0 - K90.9) Continue supplementation for life. Repeat labwork in 6 months. May, H/O bariatric surger y (ICD-10 - Z98.84) I stressed the importance of consistent excercise for terminal system operator success. We reviewed the rules in detail. May, Hyperparathyroidism (ICD-10 - E21.3) May, Vitamin D deficiency , unspecified (ICD-10 - E55.9) [facility]. Other 08-03-2023 Miscellaneous Notes* Telephone Encounter [...] with Dr. Ayala on 05/06/2023. Routing to Ione pool. Please advise if it is OK for patient to start estrogen patches. Gloria Alexander RN May 12, 2023 9:30 AM * Telephone Encounter - TonyJonyShin Manuela Meagan - 05/11/2023 2:52 PM EDT Reason for call: other - Provider name: Dr. Ayala Additional comments: Patient was told she will not need estrogen pills and she was given a prescription for estrogen. Please call and advise the patient. Recommendation: routed to nurse triage pool documented in this encounterThe [facility]08-01-2023 History of Present illness Narrative* Sylvia Ayala DO - 05/10/2023 12:32 PM EDT j documented in this encounterThe [facility]08-01-2023 Miscellaneous Notes* Telephone Encounter - Zuleyma Jewell [...] with silver & white, says Silver on dressing. Boyfriend was told in recovery that pt [...] home with rx for Estrogen, none ordered. [facility] pharmacy preferred if appropriate. Advised will forward to Ione Pool Yudith Mccauley RN * Telephone Encounter [...] has questions regarding estrogen therapy. Please advise: [phone] Recommendation: routed to nurse triage pool Loan Bell documented in this encounterThe [facility]07-31-2023 Miscellaneous Notes* Telephone Encounter - Yudith Mccauley RN - 05/09/2023 1:43 PM EDT Duplicate encounter - see today's 05/09/23 TE Closing chart. Yudith Mccauley RN documented in this encounterThe [facility]07-28-2023 NoteHNO ID: [id number] Author: Shannan Emerson, RN Service: ? Author Type: Registered Nurse Type: Nursing Progress Note Filed: 05/06/2023 4:38 PM Note Text: 1630 Pt able to void. Preparing for discharge.[id number] NoteHNO ID: [id number] Author: Rylan Valdez APRN.INDUSTRIAL PARAMEDIC Service: Anesthesiology Author Type: Nurse Ball Sorter Type: Anesthesia Procedure Notes Filed: 05/06/2023 12:33 PM Note Text: ANESTHESIOLOGY PROCEDURE NOTE Airway General Information Procedure Start Time/Medication Administration: 05/06/2023 12:27 PM Patient location during procedure: OR Timeout Performed Pre-procedure: timeout performed Consent Obtained: Yes Patient identity confirmed: arm band, patient and family Staffing INDUSTRIAL PARAMEDIC: Rylan Valdez APRN.INDUSTRIAL PARAMEDIC Performed by: SRINIVAS Indications and Patient Condition [...] attempts at approach: 1 SIGNATURE: Rylan Valdez APRN.INDUSTRIAL PARAMEDIC PATIENT NAME: Romain Mendoza DATE: May 06, 2023 TIME: 12:30 PM CSN: [id number] Instructions* Patient Instructions* Sylvia Ayala DO - 04/25/2023 12:30 PM EDT Images from the original note were not included. Please visit the following website for the [facility] surgery guide. [email or web address]-[email or web address]- guide MINIMALLY INVASIVE GYNECOLOGIC SURGERY (MIGS)/BENIGN GYNECOLOGY CONTACTS: Surgeons: Dr. Sylvia Ayala Dr. Lor Rodrigez Dr. Shellie Ventura Dr. Juliana Mendieta Dr. Barry Dhaliwal Dr. Meghan Gale Ione: Dr. Mya Garzon [phone] Dr. Denzel Colon [phone] Dr. Samantha Mclaughlin [phone] Nurse Practitioners: Kaur Corley, FUR TANNER.FASHION STYLIST Arianne Blanco FUR TANNER.FASHION STYLIST Amanda Marquez, FUR TANNER.FASHION STYLIST Jessie Carballo, FUR TANNER.FASHION STYLIST Janeth Lugo, FUR TANNER, FASHION STYLIST Surgery Scheduling Office: Call the day before surgery after 2pm for your surgery arrival time After hours phone number: or toll free Ask the corn press operator to page the industrial relations specialist otm consultant.' Business hours are Tuesday - Tuesday from 8:00am - 4:30pm. We are closed on weekends and major holidays. Surgery Locations: [address] 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 Address: [address] [place] [address] documented in this encounterThe [facility]07-17-2023 History of Present illness Narrative* Sylvia Ayala DO - 04/25/2023 10:30 AM EDT Images from the original note were not included. [facility] SECTION FOR MINIMALLY INVASIVE GYNECOLOGIC SURGERY OUTPATIENT VISIT DATE 04/25/2023 OUTPATIENT VISIT TYPE NEW PRIMARY CARE PHYSICIAN: Carlos Chris MD [address] [address] REFERRING PHYSICIAN: Gudelia Mi Consultation requested by [...] Cyst with septations and an internal hyperechoic [id number] area 03/17/23: diagnostic laparoscopy Patient underwent diagnostic laparoscopy at [facility] on 03/17/2023 for left ovarian cyst [...] laparoscopy, right toe surgery Past Gynecologic History: Rod And Tube Straightener History LMP: 03/12/2011, Hysterectomy Age at Menarche: Age at First : Age at Menopause: Rod And Tube Straightener History Comments: Sexual Activity: Yes; Male; hysterectomy Contraception: Surgical Past Obstetrical History: OB History T5 L5 SAB0 IAB0 Ectopic0 Multiple0 Live Births5 Past Medical History: PAST MEDICAL HISTORY Diagnosis Date Asthma 03/2016 + VICKIE at [facility]. Depressive disorder, not elsewhere classified Encounter for [...] BYPASS HX 09/20/2022 Reun Y IUD INSERTION (PHARMACEUTICAL SCIENTIST DEPT)_*FL 07/17/2007 Mirena IUD REMOVAL (PHARMACEUTICAL SCIENTIST DEPT)_*FL 10/23/2007 Mirena L'SCOPE DX W/WO BRUSHINGS/WASHINGS 03/17/2023 LIG/TRNSXJ FLP TUBE ABDL/VAG APPR UNI/BI 2009 Tubal ligation PAST SURGICAL HISTORY OF 1986 Eye surgery TOTAL ABDOMINAL HYSTERECT W/WO RMVL TUBE OVARY 04/22/2011 [facility] Family History: FAMILY HISTORY Problem Relation Age [...] taking: Reported on 04/25/2023) cyanocobalamin/folic acid (VITAMIN A19-KGGMC ACID) 1,000-400 mcg lozg Dissolve under the [...] plan. Sylvia Ayala DO documented in this encounterThe Surgical Hospital [facility]woods06-15-2023 Miscellaneous Notes* Telephone Encounter - Erinn Elias RN - 03/24/2023 8:27 AM EDT Appointments for Next 60 Days Date Time Provider Location Dept Phone 04/25/2023 10:30 AM SYLVIA AYALA [facility] [phone] * Telephone Encounter - Erinn Elias RN - 03/24/2023 8:26 AM EDT ----- Message from Tami Melissa RN sent at 03/23/2023 3:38 PM EDT ----- Regarding: Consult Patient calls in to [employer]ST [employer]W [employer] voicemail. She was referred to Dr. Aayla for MIGS, by Dr. Gudelia Mi at [facility]. There is a consult order in her chart. [facility] nurses are both out this week. Thanks! Tami Melissa RN documented in this encounterThe [facility]06-14-2023 History of Present illness Narrative* Gudelia Mi [...] findings Gudelia Mi MD documented in this encounterThe [facility] Hospital [facility]woods06-08-[address] Mi [facility] March 17, 2023 1:32pm Note Date/Time March 17, 2023 1:32p m [facility] Medical Records Department [address] [place] [address] Instructions for Home/Discharge Instructions 03/17/23 1331 MR#: [id number] Acct: [id number] Name: ROMAIN MENDOZA Rep #:[id number] : 1975 47 From: Gudelia Mi MD PCP: Dr. Carlos Chris MD Status:REG S DC Discharge Instructions Diet Discharge Diet: No restrictions Activity Discharge Activity: May Drive (in 2-3 days as tolerated) May shower in (days): 1 May resume sexual activity in: No Restrictions Dressing / Incision Call your doctor if your incision/area has: Continuous Slow Oozing, Sudden Increased Bleeding and Foul Smelling Discharge Call your doctor if you observe: Fever of 101 or Higher Cleanse incision/area with: Soap & Water (YOur incisions have skin glue, it can get wet. Leave it on for 10 days or until it falls off) Follow Up Care Please Follow Up With: Gudelia Mi MD When: as scheduled or as needed. [phone]. Call for concerns or send a [employer] message with non urgent questions Test Results: Test results from this visit will be discussed in further detail at your follow- up appointment, if applicable. Discharge Plan Admission Primary Reason for Your Visit: laparascopy Attending Provider: Gudelia Mi Primary Care Provider: Carlos Chris Chi Discharge Orders/Prescriptions Prescriptions: New acetaminophen [Acetaminophen Extra Strength] 500 mg tablet 1,000 mg PO Q6H PRN (Reason: fever or pain) 20 Days Qty: 30 0RF oxycodone 5 MG tablet 5 mg PO Q6H PRN PRN (Reason: severe pain) 5 Days Qty: 10 0RF Continued rosuvastatin [Crestor] 40 mg tablet 40 mg PO DAILY Qty: 30 0RF paroxetine HCl 40 mg tablet 40 mg PO DAILY alprazolam [Xanax] 0.5 mg tablet 0.5 mg PO QHS PRN (Reason: Anxiety) albuterol sulfate 90 mcg/actuation HFA aerosol inhaler 2 puff inhalation Q4H PRN (Reason: shortness of breath or wheezing) Qty: 1 6RF Rx Instructions: administer with spacer potassium chloride 10 mEq tablet extended release 10 tablet PO DAILY hydrochlorothiazide 12.5 MG capsule 12.5 mg PO DAILY Label Comments: TAKE ONE CAPSULE BY MOUTH DAILY allopurinol 100 mg Tablet 100 mg PO DAILY B12 5,000-100 mcg Lozenge SUBLINGUAL Flintstones Complete Tablet,Chewable 2 tab PO DAILY Vitamin D3 1,000 u sublingual DAILY hydrochlorothiazide 12.5 mg tablet 12.5 mg PO DAILY calcium citrate malate-vit D3 PO/SL DAILY lisinopril 10 mg tablet 10 mg PO DAILY Qty: 90 3RF levothyroxine [Tirosint] 175 mcg capsule 175 mcg PO DAILY Qty: 30 2RF Referrals / Follow Up: Carlos Chris Chi, MD [Primary Care Provider] - Disposition Disposition (needs filled in before D/C Order can be placed): Home, Self Care 03/17/23 1332<Electronically signed by Gudelia Mi MD>Gudelia Mi MD CC: Dr. Carlos Chris MD ~ Signed [facility] Work Phone: 1(208) 294-104906-08-2023 History and physical note Author Dr. Mi [facility] March 17, 2023 12:36pm Note Date/Time March 09, 2023 12:43 pm [facility] Medical Records Department [address] [place] [address] History & Physical Exam 03/09/23 1242 MR#: [id number] Acct: [id number] Name: ROMAIN MENDOZA Rep #:[id number] : 1975 47 From: Gudelia Mi MD PCP: Dr. Carlos Chris MD Status:REG S DC Location: [place] [address] History and Physical Date of Admission: 03/17/23 HPI: The patient is a 47 year old female presenting for pre-operative visit. She is scheduled for laparoscopy with left salpingoophorectomy and right salpingectomy, possible right ovarian cystectomy, for chronic pelvic pain and left ovarian cysts on 03/17/2023. Procedure discussed along with risks, benefits and complications. Other alternatives discussed for management. Consent form signed? Yes. ? ? PAST MEDICAL HISTORY PAST MEDICAL HISTORY Diagnosis Date ? Asthma 03/2016 ? + VICKIE at [facility]. ? Depressive disorder, not elsewhere classified ? ? Encounter for insertion or removal of intrauterine contraceptive device 07/17/2007 ? Mirena, Removed 10/23/2007 ? Migraine, unspecified, with intractable migraine, so stated, without mentionof status migrainosus ? ? Migraine ? Obesity (BMI 30-39.9) ? ? Placenta previa without hemorrhage, antepartum 08/26/2008 ? Seasonal allergic rhinitis 03/2016 ? No allergy testing. ? 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 ? Unspecified essential hypertension ? ? Viral pneumonia, unspecified 2000 ? Pneumonia ? ? PAST SURGICAL HISTORY PAST SURGICAL HISTORY Procedure Laterality Date ? APPENDECTOMY ? 01/2019 ? DELIVERY ONLY ? 2005, 2006, 2008 ? , low cervical X3 ? GASTRIC BYPASS HX ? 09/20/2022 ? Reun Y ? IUD INSERTION (PHARMACEUTICAL SCIENTIST DEPT)_*FL ? 07/17/2007 ? Mirena ? IUD REMOVAL (PHARMACEUTICAL SCIENTIST DEPT)_*FL ? 10/23/2007 ? Mirena ? LIG/TRNSXJ FLP TUBE ABDL/VAG APPR UNI/BI ? 2008 ? Tubal ligation ? PAST SURGICAL HISTORY OF ? 1985 ? Eye surgery ? TOTAL ABDOMINAL HYSTERECT W/WO RMVL TUBE OVARY ? 04/22/2011 ? [facility] ? ? ? CURRENT MEDICATIONS Current Outpatient Medications Medication Sig Dispense Refill ? POTASSIUM ORAL Take by mouth. ? ? ? MULTIVITAMIN ORAL Take by mouth. ? ? ? CALCIUM ORAL Take by mouth. ? ? ? cyanocobalamin/folic acid (VITAMIN L16-TQCFX ACID) 1,000-400 mcg lozg Dissolve under the tongue. ? ? ? citalopram (CELEXA) 20 mg tablet 20 mg. ? ? ? ibuprofen (MOTRIN) 800 mg tablet ? ? 0 ? ALPRAZolam (XANAX) 0.25 mg tablet Take 1 tablet by mouth once daily as needed for Anxiety. 10 tablet 0 ? albuterol HFA (VENTOLIN HFA) 90 mcg/actuation inhaler Inhale 2 Puffs as instructed every 4 hours as needed for Wheezing/Shortness of Breath. 1 Inhaler 3 ? LEVOXYL 200 mcg tablet Take 1 tablet by mouth daily before breakfast. In addition to 25mcg tablet. Do not substitute with generic 30 tablet 11 ? LEVOXYL 25 mcg tablet Take 1 tablet by mouth once daily. Take on empty stomach. For Thyroid. In addition to 200 mcg tablet. Do not substitute with generic 30 tablet 11 ? Hydrochlorothiazide 12.5 mg capsule Take 1 capsule by mouth once daily. 30 capsule 11 ? No current facility-administered medications for this visit. ? ? ALLERGIES: Citalopram, Codeine, [place], and Nsaids (Non-Steroidal Anti- Inflammatory Drug) ? PERSONAL HISTORY: SOCIAL HISTORY Social History ? Tobacco Use ? Smoking status: Never ? Smokeless tobacco: Never Vaping Use ? Vaping Use: Never used Substance Use Topics ? Alcohol use: No ? Drug use: No ? FAMILY HISTORY: FAMILY HISTORY FAMILY HISTORY Problem Relation Age of Onset ? Hypertension Mother ? ? Breast Cancer Mother ? ? Diabetes Father ? ? Stroke Father ? ? Cancer Maternal Grandmother ? ? UTERINE CANCER ? COPD Maternal Grandmother ? ? Emphysema ? ? REVIEW OF SYMPTOMS: GENERAL: denies fevers or chills ENDOCRINOLOGY: has not been on steroids Cardiology : denies palpitations or chest pain Respiratory: denies SOB or cough Hematology: denies history of prolonged bleeding or easy bruising or VTE Allergy: Denies history of personal or family history of allergy to anesthesia ? PHYSICAL EXAMINATION: ? VITALS: Last menstrual period 03/12/2011. ? GENERAL: The patient is well nourished, well hydrated in no acute distress. , The patient is oriented to time, place, and person. NECK: Supple. No lynphadenopathy, normal thyroid, no thyromegaly. LUNGS: Clear to auscultation bilaterally. no wheezes, rhonchi or rales HEART: Regular rate and rhythm, Normal heart sounds, and No murmurs or gallops ? IMPRESSION: chronic pelvic pain, left ovarian cysts ? PLAN: The risks/benefits/alternatives and personal involved for the planned left salpingoophorectomy and right salpingectomy, possible right ovarian cystectomy, for chronic pelvic pain and left ovarian cysts were reviewed with the patient. Her questions were answered to her satisfaction and she desires to proceed. Consent was signed. I reviewed with her postop instructions and expectations. ? ? I have reviewed and updated past medical and surgical history, medications and allergies Assessment & Plan Assessment/Plan (1) Left ovarian cyst: (2) Chronic pelvic pain in female: 03/09/23 1243 <Electronically signed by Gudelia Mi MD> Cosigner Signature (if applicable): CC: Dr. Gudelia Mi MD; Dr. Carlos Chris MD~ Signed ADDENDUM by Dr. Gudelia Mi MD on 03/17/23 at 1236 Addendum I have examined the patient and the H&P has been reviewed. There are no clinicalchanges since date of exam. 03/17/23 1236<Electronically signed by Gudelia Mi MD> Cosigner Signature (if applicable): cc: Dr. Gudelia Mi MD; Dr. Carlos Chris MD ~* Signed [facility] Work Phone: 1(655) 323-516706-08-2023 Procedure [facility] 03-09-2023 History of Present illness Narrative* Gudelia Mi [...] L5 SAB0 IAB0 Ectopic0 Multiple0 Live Births5 Rod And Tube Straightener History LMP: 03/12/2011, Hysterectomy Age at Menarche: Age at First : Age at Menopause: Rod And Tube Straightener History Comments: Sexual Activity: Yes; Male; hysterectomy Contraception: Surgical PAST MEDICAL HISTORY Diagnosis Date Asthma 03/2016 + VICKIE at [facility]. Depressive disorder, not elsewhere classified Encounter for [...] BYPASS HX 09/20/2022 Reun Y IUD INSERTION (PHARMACEUTICAL SCIENTIST DEPT)_*FL 07/17/2007 Mirena IUD REMOVAL (PHARMACEUTICAL SCIENTIST DEPT)_*FL 10/23/2007 Mirena LIG/TRNSXJ FLP TUBE ABDL/VAG APPR UNI/BI 2009 Tubal ligation PAST SURGICAL HISTORY OF 1986 Eye surgery TOTAL ABDOMINAL HYSTERECT W/WO RMVL TUBE OVARY 04/22/2011 [facility] FAMILY HISTORY Problem Relation Age of Onset [...] ORAL Take by mouth. cyanocobalamin/folic acid (VITAMIN Z22-WGOPM ACID) 1,000-400 mcg lozg Dissolve under the [...] N/A Gudelia Mi MD documented in this encounterThe [facility]05-31-[facility] History and physical note * Gudelia Mi [...] Diagnosis Date Asthma 03/2016 + VICKIE at [facility]. Depressive disorder, not elsewhere classified Encounter for [...] BYPASS HX 09/20/2022 Reun Y IUD INSERTION (PHARMACEUTICAL SCIENTIST DEPT)_*FL 07/17/2007 Mirena IUD REMOVAL (PHARMACEUTICAL SCIENTIST DEPT)_*FL 10/23/2007 Mirena LIG/TRNSXJ FLP TUBE ABDL/VAG APPR UNI/BI 2009 Tubal ligation PAST SURGICAL HISTORY OF 1986 Eye surgery TOTAL ABDOMINAL HYSTERECT W/WO RMVL TUBE OVARY 04/22/2011 [facility] Current Outpatient Medications Medication Sig Dispense Refill POTASSIUM ORAL Take by mouth. MULTIVITAMIN ORAL Take by mouth. CALCIUM ORAL Take by mouth. cyanocobalamin/folic acid (VITAMIN S64-JANEX ACID) 1,000-400 mcg lozg Dissolve under the [...] medications for this visit. ALLERGIES: Citalopram, Codeine, [place], and Nsaids (Non-Steroidal Anti- Inflammatory Drug) PERSONAL [...] allergies Gudelia Mi M.D. documented in this encounterThe [facility]05-16-2023 Miscellaneous Notes* Telephone Encounter - Crystal Plummer RN - 02/22/2023 3:46 PM EDT Form signed by and faxed to [facility] * Telephone Encounter - Crystal Plummer RN - 02/22/2023 10:22 AM EDT Patient would like to be scheduled at [facility] for MRI, they can get her in sooner on the and we have checked and they are unable to get her in here at [facility] until March 15. Please send order to [facility]. Sheis asking for new order to be sent on [facility] form- hospital told her to not send a copy of our order. [facility] order form on RR desk for signature documented in this encounterThe [facility]05-02-2023 Miscellaneous Notes* Telephone Encounter - Crystal Plummer RN - 02/08/2023 10:04 AM EDT Images from the original note were not included. I called patient and informed her of Lab and MRI ordered. she is scheduled for bloodwork today. Transferred her to schedule MRI. Gudelia Mi MD P [facility] Ob-Rod And Tube Straightener Pool Please call and schedule MRI for patient. ordered CEA and ca 19-9. Need this done before her surgery. Thanks. See phone note. Gudelia Mi MD documented in this encounterThe [facility]03-30-2023 Evaluation note* Encounter Date Diagnosis Assessment Notes Treatment Notes Treatment Clinical Notes Dec, Vitamin D deficiency , unspecified (ICD-10 - E55.9) Dec, Anemia, unspecified (ICD-10 - D64.9) Dec, Vitamin B12 deficiency (ICD-10 - E53.8) Dec, Malabsorption (ICD-1 0 - K90.9) Dec, History of bariatric surgery (ICD-10 - Z98.84) [facility]. Other 02-10-[address] Stanley [facility] November 19, 2022 7:38pm Note Date/Time November 19, 2022 7:06pm [facility] Medical Records Department [address] [place] [address] Emergency Department Summary 11/19/22 MR#: [id number] Acct: [id number] Name: ROMAIN MENDOZA Rep #:[id number] : 1975 47 From: Ramirez Stanley MD PCP: Dr. 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 She states that she was at a park, and forgot tolock the puppies leash. The dog ran off, and dragged her to the ground. She basically fell onto both of her hands, but mainly the left 1 which was outstretched. She has pain in her fifth digit radiating all the way up towards her elbow. She denies hitting her head or loss of consciousness, no other injury. While she sustained abrasions to the palms of both hands, mainly in theheel of the hand, she believes that her tetanus immunization is up-to-date, within the last 5 years. She has pain with movement of her fifth finger on her left hand. 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 Asthma Cardiology follow-up encounter Clostridium difficile infection Coronary artery calcification CPAP (continuous positive airway pressure) dependence DDD (degenerative disc disease), thoracic Depression Essential (primary) hypertension Fatty liver Gastric reflux History of echocardiogram History of renal disease History of stress test Hyperlipidemia Hypertension Hypothyroidism Knee pain Non-smoker Obesity Osteoarthritis Pain aggravated by walking Paresthesia Postablative hypothyroidism Right foot pain Right knee pain Segmental and somatic dysfunction of thoracic region Shortness of breath on exertion Stage 3 chronic kidney disease Vitamin D deficiency Wears dentures Wears glasses Home Medications hydrochlorothiazide 12.5 mg capsule 12.5 mg PO DAILY blood pressure 01/17/17 [History Last Taken 01/21/19] rosuvastatin 40 mg tablet (Crestor) 40 mg PO DAILY #30 tabs 08/07/20 [Rx Last Taken Unknown] paroxetine HCl 40 mg tablet 40 mg PO DAILY 10/28/20 [History Last Taken Unknown] alprazolam 0.5 mg tablet (Xanax) 0.5 mg PO QHS PRN Anxiety 04/06/21 [History Last Taken Unknown] levothyroxine 175 mcg tablet 175 mcg PO DAILY #30 tabs 12/30/21 [Rx Last Taken 08/10/22 05:00] aspirin 81 mg tablet,delayed release 81 mg PO DAILY 01/14/22 [History Last Taken 08/02/22] allopurinol 100 mg tablet 100 mg PO DAILY 03/19/22 [History Last Taken Unknown] pantoprazole 40 mg tablet,delayed release 40 mg PO DAILY 03/19/22 [History Last Taken 08/10/22 05:00] albuterol sulfate 90 mcg/actuation aerosol inhaler 2 puff inhalation Q4H PRN shortness of breath or wheezing #1 device 05/25/22 [Rx Last Taken Unknown] cholecalciferol (vitamin D3) 125 mcg (5,000 unit) tablet (Vitamin D3) 125 mcg PODAILY 08/04/22 [History Last Taken Unknown] aspirin 325 mg tablet 325 mg PO DAILY 20 days #20 tabs 08/10/22 [Rx Last Taken Unknown] doxycycline hyclate 100 mg capsule 100 mg PO DAILY #14 caps 08/10/22 [Rx Last Taken Unknown] tramadol 37.5 mg-acetaminophen 325 mg tablet 1 tab PO Q6H PRN pain 7 days #28 tabs 08/10/22 [Rx Last Taken Unknown] lisinopril 10 mg tablet 10 mg PO DAILY #90 tabs 10/25/22 [Rx Last Taken Unknown] Allergy/AdvReac Type Severity Reaction Status Date / Time citalopram Allergy unknown Verified 11/19/22 18:53 codeine Allergy Unknown Verified 11/19/22 18:53 lithium Allergy Unknown Verified 11/19/22 18:53 Family History Mother Diabetes Breast cancer Anemia Depression Hypertension Father Diabetes Heart disease Hypertension CVA (cerebral vascular accident) in his 40'2 from CVA Hyperlipemia Brother Asthma Hypertension CAD (coronary artery disease), Onset Age: 50 coronary stents Sister Depression Seizures Grandmother Diabetes Thyroid disorder Heart disease Grandfather Diabetes Thyroid disorder Heart disease Aunt Heart disease CAD (coronary artery disease) stents Uncle Heart disease CAD (coronary artery disease) stents Other Arthritis Surgical History (Updated 11/19/22 @ 19:32 by Jumana Wells) Bariatric surgery status H/O tooth extraction History of appendectomy History of section, classical History of eyelid surgery History of hysterectomy Hx of appendectomy Hx of colonoscopy Hx of right knee surgery Social History Smoking Status: Never smoker second hand exposure: No alcohol intake: never substance use type: does not use caffeine: Yes frequency: does not exercise ROS ROS ED ROS Narrative Constitutional: No fever, no chills. HEENT: No sore throat. No neck pain. No loss of vision. No rhinorrhea. Cardiovascular: No chest pain. No palpitations. No pedal edema. Respiratory: No cough, no shortness of breath. Abdominal: No abdominal pain. No nausea. No vomiting. Genitourinary: No dysuria. No hematuria. Musculoskeletal: No myalgias. Left fifth digit pain and swelling, pain in left forearm. Neurologic: No headaches. No dizziness. No lightheadedness. Skin: No rash. No change in color. Psychiatric: No depression. No anxiety. EXAM Physical Exam Narrative Exam Narrative: Afebrile. Vital signs noted. GCS 15. ABCs intact. HEENT: Normocephalic. Atraumatic. PERRL, EOMI. Neck soft and supple. No pointtenderness or step off. Cardiovascular: Regular rate and rhythm. No murmurs, rubs, or gallops appreciated. Respiratory: No tachypnea. Lungs clear to auscultation bilaterally. Gastrointestinal: Abdomen soft, nontender, with normoactive bowel sounds. No rebound or guarding. Neurological: Awake. Alert. Nonfocal, nonlateralizing. Skin: No rash. Normal color. No pallor. Positive abrasions without active bleeding bilateral heels of hands, palmar surface. Musculoskeletal: No pedal edema. Diffuse tenderness to palpation with mild swelling and ecchymosis left fifth digit. Good capillary refill. Able to oppose thumb. Full range of motion of left wrist. Able to flex and extend at elbow along with pronation and supination. Uninjured at shoulder. Const Vital Signs: 11/19/22 18:50 11/19/22 18:53 Temperature 97.4 F L 98.2 F Temperature Source Temporal Temporal Pulse Rate 74 Respiratory Rate 15 Blood Pressure 122/97 H Blood Pressure Mean 105 Pulse Ox 98 MDM MDM MDM Narrative Medical decision making narrative: Patient was given an ice pack for comfort. Her abrasions will be cleansed. X- rays were obtained of the left hand and of the left forearm. I interpreted the x- rays. My interpretation, I see no evidence of acute fracture of her left hand, fifth finger, or forearm. She will be placed in aluminum foam splint on her left fifth digit for her finger sprain, but she was told to exercise her finger and wrist as needed. She will take [id number]-[id number] analgesics and continue ice and elevation at home, follow-up with her primary care physician inapproximately 1 week. I feel she can be discharged safely home with follow-up. Return instructions to the emergency department were reviewed. Disposition is discharged home in stable condition. Discharge Plan Triage Chief Complaint: Upper Extremity Injury ED Provider: Ramirez Stanley Dx/Rx/DC Orders Clinical Impression: Fall, Abrasion of hand, Sprain of finger of left hand, Contusion of finger, left, Contusion of hand Instructions: ED Hand Contusion, ED Finger Contusion, ED Finger Sprain Prescriptions: No Action rosuvastatin [Crestor] 40 mg tablet 40 mg PO DAILY Qty: 30 0RF paroxetine HCl 40 mg tablet 40 mg PO DAILY alprazolam [Xanax] 0.5 mg tablet 0.5 mg PO QHS PRN (Reason: Anxiety) allopurinol 100 mg tablet 100 mg PO DAILY pantoprazole 40 mg tablet,delayed release (DR/EC) 40 mg PO DAILY levothyroxine 175 mcg tablet 175 mcg PO DAILY Qty: 30 4RF albuterol sulfate 90 mcg/actuation HFA aerosol inhaler 2 puff inhalation Q4H PRN (Reason: shortness of breath or wheezing) Qty: 1 6RF Rx Instructions: administer with spacer hydrochlorothiazide 12.5 MG capsule 12.5 mg PO DAILY Label Comments: TAKE ONE CAPSULE BY MOUTH DAILY cholecalciferol (vitamin D3) [Vitamin D3] 125 mcg (5,000 unit) Tablet 125 mcg PO DAILY tramadol-acetaminophen 37.5-325 mg tablet 1 tab PO Q6H PRN (Reason: pain) 7 Days Qty: 28 0RF aspirin 325 mg tablet 325 mg PO DAILY 20 Days Qty: 20 0RF Rx Instructions: Take 1 tablet daily doxycycline hyclate 100 mg capsule 100 mg PO DAILY Qty: 14 0RF Rx Instructions: Take 1 tablet daily for 14 days aspirin 81 mg tablet,delayed release (DR/EC) 81 mg PO DAILY lisinopril 10 mg tablet 10 mg PO DAILY Qty: 90 3RF Primary Care Provider: Carlos Chris Chi Referrals: Carlos Chris Chi, MD [Primary Care Provider] - 1 Week if not improving Disposition Disposition: Home, Self Care What to do if you have Problems For any increased pain, shortness of breath, bleeding, nausea or vomiting, chestpain, or any unexpected problems, contact your Primary Care Provider. Call [facility] ([phone]) or report to the closest Emergency Room. Call 911 if necessary. 11/19/221937 <Electronically signed by Ramirez Stanley MD> Cosigner Signature (if applicable): CC: Dr. Carlos Chris MD ~ Signed [facility] Work Phone: 1(366) 159-373101-23-2023 Evaluation note* Encounter Date Diagnosis Assessment Notes Treatment Notes Treatment Clinical Notes Oct, Other Reviewed 6 w [place] diet progression. I reviewed which foods patient [...] to daily MVI. Patient shows good understanding. [facility]. Other 01-23-2023 Evaluation note* Encounter Date [...] exercise for continued long-term weight loss success [facility]. Other 01-23-2023 Evaluation note* Encounter Date Diagnosis Assessment Notes Treatment Notes Treatment Clinical Notes Oct, Vitamin D deficiency , unspecified (ICD-10 - E55.9) Oct, Anemia, unspecified (ICD-10 - D64.9) Oct, Vitamin B12 deficiency (ICD-10 - E53.8) Oct, Malabsorption (ICD-1 0 - K90.9) Oct, History of bariatric surgery (ICD-10 - Z98.84) [facility]. Other 01-09-2023 Evaluation note* Encounter Date Diagnosis Assessment Notes Treatment Notes Treatment Clinical Notes Oct, Surgery follow-up examination (ICD-10 - Z09) Continue activity restrictions. Oct, Other Advance diet pe r protocol Continue MVI with Fe, PPI Reviewed the rules for terminal system operator weight loss success. Continue to increase walking for exercise. [facility] [employer]. Other 01-09-2023 Evaluation note* Encounter Date Diagnosis [...] packet was given, patient shows good understanding. [facility]. Other 12-27-2022 Evaluation note* Encounter Date Diagnosis Assessment Notes Treatment Notes Treatment Clinical Notes Sep, Other Reviewed pur eed diet progression. Patient was instructed to start purees today 10/05. I reviewed how to blend foods appropriately to one consistency using a supervisor pile driving. Pureed food examples and recipes were provided [...] packet was given, patient shows good understanding. [facility]. Other 12-27-2022 Evaluation note* Encounter Date Diagnosis [...] if able to compensate increased fluid loss [facility] [employer] [facility]. Other 12-14-2022 Hospital Discharge instructions Activity on [...] Has Patient had Chest Pain or an NC during this Visit? : No * It is important to understand risk factors for heart disease : It is important to understand risk factors for heart disease * so you can work with your doctor to help prevent further cardiac : so you can work with your doctorto help prevent further cardiac injury. Conference Interpreter Discharge Instructions from 09/22/2022 4:19 PM: * Water Operator Followup : Alphonse Galvan MD ([id number]) - Pulmonology * Water Operator Address and Phone : [address] [phone] * Water Operator Instructions : Please call to schedule an [...] 30 : Additionally, a study by the [facility] shows that sleep apnea may be tied [...] * Discharge Physician: : Anaid Garsia MD ([id number]) - Surgery * Follow up with Ordering Physician : 2 * Discharge Physician Specialty : Week(s) * Discharge Physician Phone: : [phone] [address] [phone] * Patient stated Primary Care Provider : [...] or moisturizers on incisions. [facility] [id number] Hospital Discharge instructions Conference Interpreter Discharge Instructions from 09/20/2022 4:46 PM: * Water Operator Followup : Alphonse Galvan MD ([id number]) - Pulmonology * Water Operator Address and Phone : [address] [address] [phone] * Water Operator Instructions : Please call to schedule an [...] mass inde x 38.0-38.9 (ICD-10 - Z68.38) [facility]. Other 11-17-2022 Evaluation note* Encounter Date [...] introduced at 6 week follow up appointment. [facility] [employer] [facility]. Other 11-17-2022 Evaluation note* Encounter [...] personal performance and is accurate and complete [facility]. Other 09-14-2022 Evaluation note* Encounter Date [...] personal performance and is accurate and complete [facility]. Other 09-14-2022 Evaluation note* Encounter Date Diagnosis Assessment Notes Treatment Notes Treatment Clinical Notes Jun, Other Today's Lesson: - Review of food recall - Briefly reviewed expectations after surgery Diet Goal: practice the lifelong rules Exercise Recommendations: 150 minutes moderate intensity exercise per week Behavior Goal: - continue to implement the lifelong rules Plan: dietary clearance provided today [facility]. Other 09-11-2022 History general Narrative - Reported* Type Description Date Medical History sleep apnea, CPAP is 2 yrs old, uses it every night but device is recalled, PCP will order a new one Medical History asthma Medical History hypertension Medical History depression Medical History acid reflux Medical History hypothyroidism Medical History sees audiovisual aids technician fo r chest pain, irregular heart beat, fam Hx, exercise stress test 2021 WNL Surgical History appendectomy 2019 Surgical History right knee meniscus Surgical History x 3 Surgical History growth removed above right eye as a child Surgical History hysterectomy 2009 Hospitalization History [facility] chest pain [facility]. Other 08-18-2022 Evaluation note* Encounter Date [...] of Zandra Portillo MD. By signing below, IZandra MD, personally performed the services described in this documentation. All medical record entries made by the scribe were at my direction and in my presence. I have received the chart and agree that the record reflects my personal performance and is accurate and complete [facility] Other 08-18-2022 Evaluation note* Encounter Date Diagnosis Assessment Notes Treatment Notes Treatment Clinical Notes May, Other Today's Lesson: - Review of food recall Diet Goal: practice the lifelong rules Exercise Recommendations: 150 minutes moderate intensity exercise per week Behavior Goal: - continue to implement the lifelong rules [facility]. Other 08-18-2022 Evaluation note* Encounter Date [...] and is not at risk for . [facility]. Other 07-27-2022 Evaluation note* Encounter Date Diagnosis [...] D deficiency (ICD-10 - E55.9) Apr, Other I, Joshua Romero, attest that this documentation has [...] personal performance and is accurate and complete. [facility]. Other 06-27-2022 Evaluation note* Encounter Date Diagnosis Assessment Notes Treatment Notes Treatment Clinical Notes Mar, Other Today's Lesson: - Review of dietary recall - Suggestions provided Diet Goal: practice the lifelong rules Exercise Recommendations: 150 minutes moderate intensity exercise per week Behavior Goal: - Continue to follow the lifelong rules - 1-2# wt loss per week [facility]. Other 06-11-2022 History general Narrative - Reported* Type Description Date Medical History sleep apnea, CPAP is 2 yrs old, uses it every night Medical History asthma Medical History hypertension Medical History depression Medical History acid reflux Medical History hypothyroidism Medical History sees audiovisual aids technician fo r chest pain, irregular heart beat, fam Hx, exercise stress test 2021 WNL Surgical History appendectomy 2019 Surgical History right knee meniscus Surgical History x 3 Surgical History growth removed above right eye as a child Surgical History hysterectomy 2010 Hospitalization History [facility] chest pain [facility]. Other 06-08-2022 Evaluation note* Encounter Date Diagnosis [...] Mar, Vitamin D deficiency (ICD-10 - E55.9) [facility]. Other 05-24-2022 Evaluation note* Encounter Date Diagnosis Assessment Notes Treatment Notes Treatment Clinical Notes February, Other Today's Lesson: - Had Romain download and set up [facility] pal profile, set calories to 1500 per day - Reviewed how to scan bar codes and how to manually enter food items - Reviewed the importance of measuring out portions - Recommended keeping meals simple Diet Goal: practice the lifelong rules Exercise Recommendations: 150 minutes moderate intensity exercise per week Behavior Goal: 1. Use [facility] pal and track food intake 2. 1-2# wt loss/week [facility]. Other 05-24-2022 Evaluation note* Encounter Date Diagnosis Assessment Notes Treatment Notes Treatment Clinical Notes February, Sleep apnea (ICD-10 - G47.30) Counseled on consistent CPAP use February, Primary hypertension (ICD-10 - I10) February, Gastroesophageal ref lux (ICD-10 - K21.9) February, Non morbid obesity d ue to excess calories (ICD-10 - E66.09) Counseled on low calorie diet and increase exercise [facility] [employer]. Other 04-26-2022 Evaluation note* Encounter Date Diagnosis [...] meals a day 2. track food intake [facility] Other 04-26-2022 Evaluation note* Encounter Date Diagnosis [...] Jan, Nutritional deficien cy (ICD-10 - E63.9) [facility] Other 04-12-2022 History of Present illness Narrative* Ayala Felton, RT(R) - 01/19/2022 1:30 PM EDT Radiology Service [...] 19, 2022 1:25 PM documented in this encounterThe [facility]10-21-2016 History of Past illness Narrative* Problem Noted Date Diagnosed Date Resolved Date Asthma, late onset 07/30/2016 3 Impaired glucose metabolism 05/13/2015 05/03/2023 Pain in throat 05/13/2015 06/10/2015 Thyroid activity decreased 05/13/2015 0 06/10/2015 Marital conflict 08/02/2013 05/13/2015 Previous delivery, antepartum condition or complication 04/06/2007 12/16/2010 Unspecified high-risk 04/06/2007 12/16/2010 Thyroid dysfunction of pam clark, complicating , childbirth, or the puerperium, unspecified as to episode of care(648.10) 02/06/2007 12/16/2010 Supervision of other normal 09/27/2006 08/26/2008 Obesity (BMI 30-39.9) 2022 documented as of this encounter (statuses as of 05/06/2023) [facility]10[facility]2016 History of Past illness Narrative* Problem Noted [...] of this encounter (statuses as of 05/09/2023) [facility] History of Past illness Narrative* Problem Noted [...] of this encounter (statuses as of 05/10/2023) [facility] History of Past illness Narrative* Problem Noted [...] of this encounter (statuses as of 05/10/2023) [facility] History of Past illness Narrative* Problem Noted [...] of this encounter (statuses as of 05/12/2023) [facility] History of Past illness Narrative* Problem Noted [...] of this encounter (statuses as of 05/30/2023) [facility] History of Past illness Narrative* Problem Noted [...] of this encounter (statuses as of 12/06/2023) [facility] History of Past illness Narrative* Problem Noted [...] of this encounter (statuses as of 01/20/2022) [facility] History of Past illness Narrative* Problem Noted [...] of this encounter (statuses as of 01/20/2022) [facility] History of Past illness Narrative* Problem Noted [...] of this encounter (statuses as of 02/08/2023) [facility] History of Past illness Narrative* Problem Noted [...] of this encounter (statuses as of 02/23/2023) [facility] History of Past illness Narrative* Problem Noted [...] of this encounter (statuses as of 03/09/2023) [facility] History of Past illness Narrative* Problem Noted [...] of this encounter (statuses as of 03/21/2023) [facility] History of Past illness Narrative* Problem Noted [...] of this encounter (statuses as of 03/23/2023) [facility] History of Past illness Narrative* Problem Noted [...] of this encounter (statuses as of 03/24/2023) [facility] History of Past illness Narrative* Problem Noted [...] of this encounter (statuses as of 04/25/2023) [facility] + Plan note [facility] evaluation note* Diagnosis Onset Date Resolution Status Knee contusion acute Postablative hypothyroidism acute [facility] Work Phone: Evaluation note* Diagnosis Abnormal screening mammogram Abnormal mammogram, unspecified [facility] [place] [facility] Diagnosis Abnormal screening mammogram Abnormal mammogram, unspecified [facility] Other [facility] note* Diagnosis Onset Date Resolution Status Knee contusion acute Postablative hypothyroidism acute Chest pain acute Coronary artery calcification chronic Hyperlipidemia chronic Hypertension [facility] Work Phone: Evaluation note* Diagnosis Onset Date Resolution Status Postablative hypothyroidism chronic Chest pain acute Coronary artery calcification chronic Hyperlipidemia chronic Hypertension chronic Postablative hypothyroidism chronic [facility] Work Phone: evaluation note* Diagnosis Onset Date Resolution Status Hyperlipidemia chronic Chest pain resolved Postablative hypothyroidism chronic Atypical chest pain acute Essential (primary) hypertension chronic Hyperlipidemia [facility] Work Phone: Evaluation note* Diagnosis Onset Date Resolution Status Postablative hypothyroidism chronic Atypical chest pain acute Essential (primary) hypertension chronic Hyperlipidemia chronic History of arthroscopy of right knee noneactive Right knee pain noneactive BALBINA (obstructive sleep apnea) acute Asthma chronic Obesity chronic [facility] Work Phone: Evaluation note* Diagnosis Onset Date Resolution Status History of arthroscopy of right knee noneactive Right knee pain noneactive BALBINA (obstructive sleep apnea) acute Asthma chronic Obesity chronic [facility] Work Phone: Evaluation note* Diagnosis Onset Date Resolution Status History of arthroscopy of right knee noneactive Right knee pain noneactive BALBINA (obstructive sleep apnea) acute Asthma chronic Obesity chronic Acquired hallux limitus of right foot acute Arthritis of first metatarso phalangeal (MTP) joint of right foot acute [facility] Work Phone: Evaluation note* Diagnosis Onset Date Resolution Status Acquired hallux limitus of right foot acute Arthritis of first metatarso phalangeal (MTP) joint of right foot acute [facility] Work Phone: Evaluation noteNo assessment information available [facility] Work Phone: Evaluation note* Diagnosis Onset Date Resolution Status Postablative hypothyroidism chronic [facility] Work Phone: Evaluation note* Diagnosis Pelvic and perineal pain- Primary Unspecified symptom associated with female genital organs Ovarian cyst, left Other and unspecified ovarian cyst [facility] Diagnosis Pelvic and perineal pain- Primary Unspecified symptom associated with female genital organs Ovarian cyst, left Other and unspecified ovarian cyst [facility] Diagnosis Onset Date Resolution Status Postablative hypothyroidism chronic Left ovarian cyst acute Chronic pelvic pain in female chronic [facility] Work Phone: Evaluation note* Diagnosis Peritoneal adhesions- Primary Peritoneal adhesions (postoperative) (postinfection) Adhesion of omentum Peritoneal adhesions (postoperative) (postinfection) Ovarian cyst, left Other and unspecified ovarian cyst [facility] Diagnosis Onset Date Resolution Status Postablative hypothyroidism chronic Left ovarian cyst acute Chronic pelvic pain in female chronic Essential (primary) hypertension chronic Hyperlipidemia chronic Acquired hallux limitus of right foot acute Arthritis of first metatarso phalangeal (MTP) joint of right foot acute Metatarsalgia, right foot ac [place] Pain in right foot acute Sesamoiditis of right foot a [facility] Work Phone: Evaluation note* Diagnosis Ovarian cyst, left- Primary Other and unspecified ovarian cyst Peritoneal adhesions Peritoneal adhesions (postoperative) (postinfection) Pelvic pain in female Unspecified symptom associated with female genital organs Preop examination Preoperative examination, unspecified [facility] [place] [facility] Diagnosis Post-op pain- Primary Other acute postoperative pain documented in this encounter [facility] note* Diagnosis Onset Date Resolution Status Left ovarian cyst acute Chronic pelvic pain in female chronic Essential (primary) hypertension chronic Hyperlipidemia chronic Acquired hallux limitus of right foot acute Arthritis of first metatarso phalangeal (MTP) joint of right foot acute Metatarsalgia, right foot ac [place] Pain in right foot acute Sesamoiditis of right foot a [facility] Work Phone: Evaluation note* Diagnosis Pelvic pain in female- Primary Unspecified symptom associated with female genital organs documented in this encounter [facility] note* Diagnosis Onset Date Resolution Status Acquired hallux limitus of right foot acute Arthritis of first metatarso phalangeal (MTP) joint of right foot acute Metatarsalgia, right foot ac [place] Pain in right foot acute [facility] Postabl[facility] hypothyroidism [facility] Work Phone: Evaluation note* Diagnosis Onset Date Resolution Status Postablative hypothyroidism chronic Ureterolithiasis acute [facility] Work Phone: Evaluation note* Diagnosis Onset Date Resolution Status Postablative hypothyroidism chronic Ureterolithiasis acute COVID-19 acute [facility] Work Phone: Evaluation note* Diagnosis Onset Date Resolution Status Ureterolithiasis acute COVID-19 acute Episode of shaking acute Essential (primary) hypertension chronic Hyperlipidemia chronic Postablative hypothyroidism chronic Stage 3 chronic kidney disease chronic NAFLD (nonalcoholic fatty liver disease) [facility] Work Phone: Evaluation note* Diagnosis Abnormal intestinal absorption- Primary Unspecified intestinal malabsorption Hyperparathyroidism (CMS/HCC) Hyperparathyroidism, unspecified Vitamin D deficiency Nonalcoholic steatohepatitis Other chronic nonalcoholic liver disease S/P gastric bypass Bariatric surgery status documented in this encounter [facility] Work Phone: Evaluation note* Diagnosis Onset Date Resolution Status COVID-19 acute Episode of shaking acute Essential (primary) hypertension chronic Hyperlipidemia chronic Postablative hypothyroidism chronic Stage 3 chronic kidney disease chronic NAFLD (nonalcoholic fatty liver disease) [facility] Work Phone: Evaluation note* Diagnosis Encounter for screening mammogram for malignant neoplasm of breast- Primary Other screening mammogram Pelvic pain in female Unspecified symptom associated with female genital organs Encounter for screening for malignant neoplasm of colon Special screening for malignant neoplasms, colon [facility] this [facility] [place] [facility]* Diagnosis Pre-op evaluation- Primary Preoperative examination, [...] abnormal tumor markers documented in this encounter [facility] note* Diagnosis Pre-op evaluation- Primary Preoperative examination, [...] abnormal tumor markers documented in this encounter [facility] note* Diagnosis Pre-op evaluation- Primary Preoperative examination, unspecified Bipolar 2 disorder (HCC) Other bipolar disorders Uncomplicated asthma, unspecified asthma severity, unspecified whether persistent Mixed hyperlipidemia Essential hypertension Unspecified essential hypertension Hypothyroidism, unspecified type Chronic kidney disease, unspecified CKD stage BALBINA (obstructive sleep apnea) Obstructive sleep apnea (adult) (pediatric) Postablative hypothyroidism- Primary Other postablative hypothyroidism documented in this encounter [facility] note* Diagnosis Pre-op evaluation- Primary Preoperative examination, unspecified Bipolar 2 disorder (HCC) Other bipolar disorders Uncomplicated asthma, unspecified asthma severity, unspecified whether persistent Mixed hyperlipidemia Essential hypertension Unspecified essential hypertension Hypothyroidism, unspecified type Chronic kidney disease, unspecified CKD stage BALBINA (obstructive sleep apnea) Obstructive sleep apnea (adult) (pediatric) Postablative hypothyroidism- Primary Other postablative hypothyroidism documented in this encounter [facility] general Narrative - Reported* Type Description Date Medical History sleep apnea, CPAP is 2 yrs old, uses it every night Medical History asthma Medical History hypertension Medical History depression Medical History acid reflux Medical History hypothyroidism Medical History sees audiovisual aids technician fo r chest pain, irregular heart beat, fam Hx, has exercise stress test 2020 Surgical History appendectomy 2020 Surgical History right knee meniscus Surgical History x 3 Surgical History growth removed above right eye as a child Surgical History hysterectomy 2009 Hospitalization History [facility] [employer] [facility] N[facility] - Reported* Type Description Date Medical History sleep apnea, CPAP is 2 yrs old, uses it every night Medical History asthma Medical History hypertension Medical History depression Medical History acid reflux Medical History hypothyroidism Medical History sees audiovisual aids technician fo r chest pain, irregular heart beat, fam Hx, exercise stress test 2021 WNL Surgical History appendectomy 2020 Surgical History right knee meniscus Surgical History x 3 Surgical History growth removed above right eye as a child Surgical History hysterectomy 2009 Hospitalization History [facility] [employer] Other [employer] general Narrative - Reported* Type Description Date Medical History sleep apnea, CPAP is 2 yrs old, uses it every night but device is recalled, PCP will order a new one Medical History asthma Medical History hypertension Medical History depression Medical History acid reflux Medical History hypothyroidism Medical History sees audiovisual aids technician fo r chest pain, irregular heart beat, fam Hx, exercise stress test 2021 WNL Surgical History appendectomy 2020 Surgical History right knee meniscus Surgical History x 3 Surgical History growth removed above right eye as a child Surgical History hysterectomy 2009 Hospitalization History [facility] [employer] Other [employer] general Narrative - Reported* Type Description Date Medical History sleep apnea, got new CPAP Medical History asthma Medical History hypertension Medical History depression Medical History acid reflux Medical History hypothyroidism Medical History sees audiovisual aids technician fo r chest pain, irregular heart beat, fam Hx, exercise stress test 2021 WNL Surgical History appendectomy 2020 Surgical History right knee meniscus Surgical History x 3 Surgical History growth removed above right eye as a child Surgical History hysterectomy 2010 Surgical History infusion right great toe 022 Hospitalization History [facility] chest pain [facility]. Other [employer] general Narrative - Reported* Type Description Date Medical History sleep apnea, got new CPAP Medical History asthma Medical History hypertension Medical History depression Medical History acid reflux Medical History hypothyroidism Medical History sees audiovisual aids technician fo r chest pain, irregular heart beat, fam Hx, exercise stress test 2021 WNL Surgical History appendectomy 2020 Surgical History right knee meniscus Surgical History x 3 Surgical History growth removed above right eye as a child Surgical History hysterectomy 2009 Surgical History infusion right great toe 022 Surgical History LAPAROSCOPIC SIMONA-EN -Y GASTRIC BYPASS (RUY-ALISTAIR) [place] Hospitalization History [facility] chest [facility] Other [employer] general Narrative - Reported* Type Description Date Medical History sleep apnea, got new CPAP Medical History asthma Medical History hypertension Medical History depression Medical History acid reflux Medical History hypothyroidism Medical History sees audiovisual aids technician fo r chest pain, irregular heart beat, [...] bdominal pain/ had bladder infection no admission [facility]. Other [facility] Other [employer] general Narrative - Reported* Type Description Date Medical History sleep apnea, got new CPAP Medical History asthma Medical History hypertension Medical History depression Medical History acid reflux Medical History hypothyroidism Medical History sees audiovisual aids technician fo r chest pain, irregular heart beat, [...] History tubes and ovaries removed Hospitalization [facility] bdominal pain/ had bladder infection no admission [facility] Other Hospital Discharge instructions Activity on Discharge [...] Has Patient had Chest Pain or an NC during this Visit? : No * It is important to understand risk factors for heart disease : It is important to understand risk factors for heart disease * so you can work with your doctor to help prevent further cardiac : so you can work with your doctorto help prevent further cardiac injury. Conference Interpreter Discharge Instructions from 09/22/2022 4:19 PM: * Water Operator Followup : Alphonse Galvan MD ([id number]) - Pulmonology * Water Operator Address and Phone : [phone] [address] [phone] * Water Operator Instructions : Please call to schedule an [...] 30 : Additionally, a study by the [facility] shows that sleep apnea may be tied [...] * Discharge Physician: : Anaid Garsia MD ([id number]) - Surgery * Follow up with Ordering Physician : 2 * Discharge Physician Specialty : Week(s) * Discharge Physician Phone: : [phone] [address] [phone] * Patient stated Primary Care Provider : [...] until okayed by office. [facility] Hospital Discharge instructions Additional Instructions [facility] Work Phone: Reason for referral (narrative)* Diagnostic Procedure Only (Routine) - Closed Specialty Diagnoses / Procedures Referred By Alesia lemons Referred To Contact [facility] Diagnoses Abnormal screening mammogram Procedures US BREAST LTD LT US BREAST UNI REAL TIME WITH IMAGE LIMITED Angle Fagan APRN.CNM [address] [place] [address] [facility] [address] [place] [address] Referral ID Status Reason Start Date Expiration Date V isits Requested Visits Authorized [id number] Closed Auto-Generate d Referral 12/16/2021 01/15/2023 1 1 [facility] (narrative)* Diagnostic Procedure Only (Routine) - Authorized Specialty Diagnoses / Procedures Referred By Contac t Referred To Contact [facility] Diagnoses Encounter for screening mammogram for malignant neoplasm of breast Procedures VIVIANE SCREENING W JORDAN SCREENING DIGITAL BREAST TOMOSYNTHESIS BI SCREENING MAMMOGRAPHY BI 2-VIEW BREAST INC CAD Gudelia Mi MD [address] [place] [address] [facility] [address] [place] [address] Referral ID Status Reason Start Date Expiration Date Visits Requested Visits Authorized [id number] Authorized Auto-Generat ed Referral 12/06/2023 01/04/2025 1 1 [facility] (narrative)No reason for referral information availableWTriHealth Work Phone: Reason for visit Narrative* Diagnostic Procedure Only (Routine) - Closed Specialty Diagnoses / Procedures Referred By Alesia lemons Referred To Contact [facility] Diagnoses Abnormal screening mammogram Procedures VIVIANE DIAGNOSTIC LT DIAGNOSTIC MAMMOGRAPHY COMPUTER-AIDED DETCJ UNI Angle Fagan APRN.CN [address] [place] [address] [facility] [address] [place] [address] Referral ID Status Reason Start Date Expiration Date V isits Requested Visits Authorized [id number] Closed Auto-Generate d Referral 12/16/2021 01/15/2023 1 1 [facility] Narrative* Diagnostic Procedure Only (Routine) - Closed Specialty Diagnoses / Procedures Referred By Alesia lemons Referred To Contact [facility] Diagnoses Abnormal screening mammogram Procedures US BREAST LTD LT US BREAST UNI REAL TIME WITH IMAGE LIMITED Angle Fagan APRN.CNM [address] [place] [address] [facility] [address] [place] [address] Referral ID Status Reason Start Date Expiration Date V isits Requested Visits Authorized [id number] Closed Auto-Generate d Referral 12/16/2021 01/15/2023 1 1 [facility] for [facility] Narrativesurgery education, review insurance requirements for bariatric surgeryL [facility] Other Chief Complaint and Reason for Visit Chief Complaint right knee xray INT LABS 4 M FU CP Reason for Visit Knee contusion Postablative hypothyroidism Chief Complaint right knee xray INT LABS 4 M FU CP BLOODWORK S/P [facility] ER CORONARY ARTERY CALCIFICATION CORONARY ARTERY CALCIFICATION Reason for Visit Knee contusion Postablative hypothyroidism Chest pain Coronary artery calcification Hyperlipidemia Hypertension Chief Complaint INT LABS 4 M FU CP BLOODWORK S/P [facility] ER CORONARY ARTERY CALCIFICATION CORONARY ARTERY CALCIFICATION INT LABS/ORDER 3 M FU Reason for Visit Postablative hypothy roidism Chest pain Coronary artery calcification Hyperlipidemia Hypertension Postablative hypothyroidism Chief Complaint CP BLOODWORK S/P [facility] ER CORONARY ARTERY CALCIFICATION CORONARY ARTERY CALCIFICATION INT LABS/ORDER 3 M FU RIGHT FOOT xray 8 m fu Reason for Visit Hyperlipidemia Chest pain Postablative hypothyroidism Atypical chest pain Essential (primary) hypertension Hyperlipidemia Chief Complaint INT LABS/ORDER 3 M FU RIGHT FOOT xray 8 m fu right knee xray 6 M FU [address] Reason for Visit Postablative hypothy roidism Atypical chest pain Essential (primary) hypertension Hyperlipidemia History of arthroscopy of right knee Right knee pain BALBINA (obstructive sleep apnea) Asthma Obesity Chief Complaint right knee xray 6 M FU [address] SCREENING Reason for Visit History of arthrosco py of right knee Right knee pain BALBINA (obstructive sleep apnea) Asthma Obesity Chief Complaint right knee xray 6 M FU [address] SCREENING RT FOOT MPJ FUSION ARTHRODESIS Reason for Visit History of arthrosco py of right knee Right knee pain BALBINA (obstructive sleep apnea) Asthma Obesity Acquired hallux limitus of right foot Arthritis of first metatarsophalangeal (MTP) joint of right foot Chief Complaint SCREENING RT FOOT MPJ FUSION ARTHRODESIS CHILLS WITHOUT FEVER Reason for Visit Acquired hallux limi tus of right foot Arthritis of first metatarsophalangeal (MTP) joint of right foot Chief Complaint RT FOOT MPJ FUSION A RTHRODESIS CHILLS WITHOUT FEVER arm injury Reason for Visit Acquired hallux limi tus of right foot Arthritis of first metatarsophalangeal (MTP) joint of right foot Chief Complaint RT FOOT MPJ FUSION A RTHRODESIS CHILLS WITHOUT FEVER arm injury SCREENING Reason for Visit Acquired hallux limi tus of right foot Arthritis of first metatarsophalangeal (MTP) joint of right foot Chief Complaint CHILLS WITHOUT FEVER arm injury SCREENING ABD PAIN Chief Complaint CHILLS WITHOUT FEVER arm injury SCREENING ABD PAIN Hypokalemia LEFT TUBO-OVARIAN MASS SCREENING Chief Complaint CHILLS WITHOUT FEVER arm injury SCREENING ABD PAIN Hypokalemia LEFT TUBO-OVARIAN MASS SCREENING 10 M FU Reason for Visit Postablative hypothy roidism Chief Complaint arm injury SCREENING ABD PAIN Hypokalemia LEFT TUBO-OVARIAN MASS SCREENING 10 M FU E-ORDER PELVIC PAIN (PREVIOUS U/S RECOMMENDED MRI) lap lt salpingooph, rt salping Reason for Visit Postablative hypothy roidism Left ovarian cyst Chronic pelvic pain in female Chief Complaint ABD PAIN Hypokalemia LEFT TUBO-OVARIAN MASS SCREENING 10 M FU E-ORDER PELVIC PAIN (PREVIOUS U/S RECOMMENDED MRI) lap lt salpingooph, rt salping 1 Y FU RT REVISION OF 1ST METATARSAL PHALANGEAL JOINT Reason for Visit Postablative hypothy roidism Left ovarian cyst Chronic pelvic pain in female Essential (primary) hypertension Hyperlipidemia Acquired hallux limitus of right foot Arthritis of first metatarsophalangeal (MTP) joint of right foot Metatarsalgia, right foot Pain in right foot Sesamoiditis of right foot Chief Complaint E-ORDER PELVIC PAIN (PREVIOUS U/S RECOMMENDED MRI) lap lt salpingooph, rt salping 1 Y FU RT REVISION OF 1ST METATARSAL PHALANGEAL JOINT Reason for Visit Left ovarian cyst Chronic pelvic pain in female Essential (primary) hypertension Hyperlipidemia Acquired hallux limitus of right foot Arthritis of first metatarsophalangeal (MTP) joint of right foot Metatarsalgia, right foot Pain in right foot Sesamoiditis of right foot Chief Complaint E-ORDER PELVIC PAIN (PREVIOUS U/S RECOMMENDED MRI) lap lt salpingooph, rt salping 1 Y FU RT REVISION OF 1ST METATARSAL PHALANGEAL JOINT FATTY LIVER Reason for Visit Left ovarian cyst Chronic pelvic pain in female Essential (primary) hypertension Hyperlipidemia Acquired hallux limitus of right foot Arthritis of first metatarsophalangeal (MTP) joint of right foot Metatarsalgia, right foot Pain in right foot Sesamoiditis of right foot Chief Complaint RT REVISION OF 1ST M ETATARSAL PHALANGEAL JOINT FATTY LIVER FLANK PAIN 6 M FU Reason for Visit Acquired hallux limi tus of right foot Arthritis of first metatarsophalangeal (MTP) joint of right foot Metatarsalgia, right foot Pain in right foot Sesamoiditis of right foot Postablative hypothyroidism Chief Complaint FATTY LIVER FLANK PAIN 6 M FU Cysto,Ureteroscopy,Retro,Laser,Stent,Basket Reason for Visit Postablative hypothy roidism Ureterolithiasis Chief Complaint FATTY LIVER FLANK PAIN 6 M FU Cysto,Ureteroscopy,Retro,Laser,Stent,Basket SCREENING Reason for Visit Postablative hypothy roidism Ureterolithiasis Chief Complaint FLANK PAIN 6 M FU Cysto,Ureteroscopy,Retro,Laser,Stent,Basket SCREENING ABD PAIN CONGESTION, COUGH, SORE THROAT Reason for Visit Postablative hypothy roidism Ureterolithiasis COVID-19 Chief Complaint FLANK PAIN 6 M FU Cysto,Ureteroscopy,Retro,Laser,Stent,Basket SCREENING ABD PAIN CONGESTION, COUGH, SORE THROAT VIRAL SYMPTOMS Reason for Visit Postablative hypothy roidism Ureterolithiasis COVID-19 Chief Complaint Cysto,Ureteroscopy,R etro,Laser,Stent,Basket SCREENING ABD PAIN CONGESTION, COUGH, SORE THROAT VIRAL SYMPTOMS 3 M FU FATTY LIVER Reason for Visit Ureterolithiasis COVID-19 Episode of shaking Essential (primary) hypertension Hyperlipidemia Postablative hypothyroidism Stage 3 chronic kidney disease NAFLD (nonalcoholic fatty liver disease) Chief Complaint SCREENING ABD PAIN CONGESTION, COUGH, SORE THROAT VIRAL SYMPTOMS 3 M FU FATTY LIVER SCREENING FOR BREAST CANCER Reason for Visit COVID-19 Episode of shaking Essential (primary) hypertension Hyperlipidemia Postablative hypothyroidism Stage 3 chronic kidney disease NAFLD (nonalcoholic fatty liver disease) Chief Complaint ABD PAIN CONGESTION, COUGH, SORE THROAT VIRAL SYMPTOMS 3 M FU FATTY LIVER SCREENING FOR BREAST CANCER SCREENING Reason for Visit COVID-19 Episode of shaking Essential (primary) hypertension Hyperlipidemia Postablative hypothyroidism Stage 3 chronic kidney disease NAFLD (nonalcoholic fatty liver disease) Chief Complaint Admit Date 2 ORDERING DOCTORS August 21, 2024 10:04am 3 M FU August 22, 2024 9:48am FATTY LIVER September 12, 2024 7 :43am KUB September 17, 2024 8 :59am ILEUS NAUSEA VOMITING DIARRHEA October 132024 8:01pm ILEUS NAUSEA VOMITING DIARRHEA October 132024 8:19pm ILEUS NAUSEA VOMITING DIARRHEA October 142024 12:50pm Arthrodesis of the right second proximal interphal October 19, 2024 11:20am CHILLS November 13, 2024 8 :18am 3 M FU November 20, 2024 10:56am SCREENING December 03, 2024 8:32am Reason for Visit Admit Date Elevated alpha fetoprotein August 9:48am NAFLD (nonalcoholic fatty liver disease) August 22, 2024 9:48am Abdominal pain October 13, 2024 8: 01pm Diarrhea October 13, 2024 8: 01pm Elevated lipase October 13, 2024 8: 01pm Ileus, unspecified October 13, 2024 8: 01pm Nausea & vomiting October 13, 2024 8: 01pm 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 October 19, 2024 11:20am Chronic pain of toe of right foot Octuar 2024 11:20am Chronic pain of toe of right foot ua 2024 10:56am Elevated alpha fetoprotein November 10:56am NAFLD (nonalcoholic fatty liver disease) November 20, 2024 10:56am Chief Complaint Admit Date ILEUS NAUSEA VOMITING DIARRHEA October 132024 8:01pm ILEUS NAUSEA VOMITING DIARRHEA October 132024 8:19pm ILEUS NAUSEA VOMITING DIARRHEA October 142024 12:50pm Arthrodesis of the right second proximal interphal October 19, 2024 11:20am CHILLS November 13, 2024 8 :18am 3 M FU November 20, 2024 10:56am SCREENING December 03, 2024 8:32am Reason for Visit Admit Date Abdominal pain October 13, 2024 8: 01pm Diarrhea October 13, 2024 8: 01pm Elevated lipase October 13, 2024 8: 01pm Ileus, unspecified October 13, 2024 8: 01pm Nausea & vomiting October 13, 2024 8: 01pm 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 October 19, 2024 11:20am Chronic pain of toe of right foot Octuar 2024 11:20am Chronic pain of toe of right foot Februa ry 2024 10:56am Elevated alpha fetoprotein November 10:56am NAFLD (nonalcoholic fatty liver disease) November 20, 2024 10:56am Chief Complaint Admit Date CHILLS November 13, 2024 8 :18am 3 M FU November 20, 2024 10:56am SCREENING December 03, 2024 8:32am 4 M FU February 21, 2025 1:37p m Reason for Visit Admit Date Chronic pain of toe of right foot Februa 2024 10:56am Elevated alpha fetoprotein November 10:56am NAFLD (nonalcoholic fatty liver disease) November 20, 2024 10:56am Diarrhea February 21, 2025 1:37p m Elevated lipase February 21, 2025 1:37p m Chief Complaint Admit Date CHILLS November 13, 2024 8 :18am 3 M FU November 20, 2024 10:56am SCREENING December 03, 2024 8:32am 4 M FU February 21, 2025 1:37p m INT LAB AND XRAY ORDERS February 21, 2025 2 :41pm CHOLECYSTITIS February 27, 2025 9:12a m Reason for Visit Admit Date Chronic pain of toe of right foot Februa 2024 10:56am Elevated alpha fetoprotein November 10:56am NAFLD (nonalcoholic fatty liver disease) November 20, 2024 10:56am Chronic pain of toe of right foot February 212024 1:37pm Diarrhea February 21, 2025 1:37p m Elevated alpha fetoprotein February 21 1:37pm Elevated lipase February 21, 2025 1:37p m NAFLD (nonalcoholic fatty liver disease) February 21, 2025 1:37pm Chief Complaint Admit Date CHILLS November 13, 2024 8 :18am 3 M FU November 20, 2024 10:56am SCREENING December 03, 2024 8:32am 4 M FU February 21, 2025 1:37p m INT LAB AND XRAY ORDERS February 21, 2025 2 :41pm CHOLECYSTITIS February 27, 2025 9:12a m CHOLECYSTITIS March 08, 2025 8:43a m Reason for Visit Admit Date Chronic pain of toe of right foot Februa 2024 10:56am Elevated alpha fetoprotein November 10:56am NAFLD (nonalcoholic fatty liver disease) November 20, 2024 10:56am Chronic pain of toe of right foot February 212024 1:37pm Diarrhea February 21, 2025 1:37p m Elevated alpha fetoprotein February 21 1:37pm Elevated lipase February 21, 2025 1:37p m NAFLD (nonalcoholic fatty liver disease) February 21, 2025 1:37pm Gallbladder sludge March 08, 2025 8:43a m RUQ pain March 08, 2025 8:43a m NAFLD (nonalcoholic fatty liver disease) March 08, 2025 8:43am Family History No Family History Records Found Relationship Condition Age at Onset Recorded Date/T katina Not Specified Arthritis Unknown mother Diabetes mellitus Unknown Malignant neoplasm of breast Unknown Anemia Unknown Depression Unknown Hypertension Unknown father Diabetes mellitus Unknown Cardiac disease Unknown Cerebrovascular accident (CVA) Unknown Hyperlipidemia Unknown brother Asthma Unknown sister Depression Unknown Seizure Unknown grandmother Diabetes mellitus Unknown Disorder of thyroid Unknown grandfather Diabetes mellitus Unknown aunt Cardiac disease Unknown Coronary artery disease Unknown uncle Cardiac disease Unknown Relationship Condition Age at Onset Recorded Date/T katina Not Specified Arthritis Unknown mother Diabetes mellitus Unknown Malignant neoplasm of breast Unknown Anemia Unknown Depression Unknown Hypertension Unknown father Diabetes mellitus Unknown Cardiac disease Unknown Cerebrovascular accident (CVA) Unknown Hyperlipidemia Unknown brother Asthma Unknown Coronary artery disease 50 sister Depression Unknown Seizure Unknown grandmother Diabetes mellitus Unknown Disorder of thyroid Unknown grandfather Diabetes mellitus Unknown aunt Cardiac disease Unknown Coronary artery disease Unknown uncle Cardiac disease Unknown Advance Directives No Advanced Directives Records Found Advance Directive Response Recorded Date/ Time Living Will No January 14, 2022 9:37am Power of Salvager No January 14 9:37am Advance Directive Response Recorded Date/ Time Living Will No March 15, 2022 2 :54pm Power of Salvager No March 15, 2022 2:54pm Advance Directive Response Recorded Date/ Time Living Will No August 04 1:05pm Power of Salvager No August 04, 2022 1:05pm Advance Directive Response Recorded Date/ Time Living Will No August 04 12:05pm Power of Salvager No August 04, 2022 12:05pm Advance Directive Response Recorded Date/ Time Living Will No November 19 7:31pm Power of Salvager No November 19, 2022 7:31pm Advance Directive Response Recorded Date/ Time Living Will No December 31, 2022 9:47pm Power of Salvager No December 31 9:47pm Advance Directive Response Recorded Date/ Time Living Will No March 10, 2023 1 1:38am Power of Salvager No March 10, 2023 11:38am Advance Directive Response Recorded Date/ Time Living Will No March 25, 2023 11:15am Power of Salvager No March 25 11:15am Advance Directive Response Recorded Date/ Time Living Will No July 22 9:09am Power of Salvager No July 22, 2023 9:09am Advance Directive Response Recorded Date/ Time Living Will No August 02 2:01pm Power of Salvager No August 02, 2023 2:01pm Advance Directive Response Recorded Date/ Time Living Will No August 02 1:01pm Power of Salvager No August 02, 2023 1:01pm Advance Directive Response Recorded Date/ Time Living Will No November 21 11:15am Power of Salvager No November 21, 2023 11:15am Advance Directive Response Recorded Date/ Time Living Will No November 21 12:15pm Power of Salvager No November 21, 2023 12:15pm Advance Directive Response Recorded Date/ Time Living Will No November 21 11:15am Power of Salvager No November 21, 2023 11:15am Living Will No July 23 7:21am Power of Salvager No July 23, 2024 7:21am Living Will No October 15 9:16am Power of Salvager No October 15 9:16am Living Will No October 13 10:15pm Power of Salvager No October 13 10:15pm Advance Directive Response Recorded Date/ Time Living Will No October 15 10:16am Do you have a Healthcare Power of Salvager? No October 15, 2024 10:16am Living Will No October 13 11:15pm Do you have a Healthcare Power of Salvager? No October 13, 2024 11:15pm Summary Purpose Reason for Referral Specialty Diagnoses / Procedures Referred By Contraul t Referred To Contact CT IMAGING Diagnoses Elevated AFP Abnormal tumor markers Procedures CT PELVIS W IVCON CT PELVIS W/CONTRAST MATERIAL Gudelia Mi MD [address] [place] [address] [place] [address] Referral ID Status Reason Start Date Expiration Date Visits Requested Visits Authorized [id number] New Request Auto-Generat ed Referral 07/02/2024 08/01/2025 1 1 Specialty Diagnoses / Procedures Referred By Alesia lemons Referred To Contact Diagnoses Peritoneal adhesions Adhesion of omentum Ovarian cyst, left Procedures CONSULT TO MINIMALLY INVASIVE GYNECOLOGIC SURGERY OFFICE/OUTPATIENT NEW HIGH MDM 60-74 MINUTES Gudelia Mi MD [address] [place] [address] Referral ID Status Reason Start Date Expiration Date Visits Requested Visits Authorized [id number] Authorized PCP Requested Referral Auto-Generate d Referral 03/23/2023 03/22/2024 1 1 Specialty Diagnoses / Procedures Referred By Alesia lemons Referred To Contact MR IMAGING Diagnoses Pelvic and perineal pain Procedures MRI PELVIS WO/W IVCON MRI PELVIS W/O & W/CONTRAST MATERIAL Gudelia Mi MD [address] [place] [address] Mr Imaging Referral ID Status Reason Start Date Expiration Date Visits Requested Visits Authorized [id number] Pending Review Auto-Generat ed Referral 02/08/2023 03/09/2024 1 1 Additional Source Comments Goals (unrecognized section and content) Goals may be documented in a n alternate sectionNo InformationNo InformationGoals may be documented in an alternate sectionNo InformationNo InformationNo InformationNo InformationNo InformationNo InformationNo InformationGoals may be documented in an alternate sectionNo InformationNo InformationNo InformationNo InformationNo InformationNo InformationNo InformationNo InformationNo InformationNo InformationNo InformationNo InformationNo InformationNo InformationNo InformationNo InformationNo InformationNo InformationNo InformationNo InformationNo InformationNo InformationNo InformationNo InformationNo InformationNo InformationNo InformationNo InformationNo InformationNo InformationNo InformationNo InformationNo Information Goals from 09/22/2022 3:57 PM:Goal for Mobility : Maintain active lifestyle as tolerated Patient Stated Goals from 09/22/2022 3:57 PM:Patient's Personal Life Style and Recovery Goal : feel betterPatient's Personal Life Style and Recovery Plan : go home Goals from 09/22/2022 3:57 PM:Goal for Mobility : Maintain active lifestyle as tolerated Patient Stated Goals from 09/22/2022 3:57 PM:Patient's Personal Life Style and Recovery Goal : feel betterPatient's Personal Life Style and Recovery Plan : go home No InformationNo InformationNo InformationNo InformationNo InformationNo InformationNo InformationNo InformationNo InformationNo InformationNo InformationNo InformationNo InformationNo InformationNo InformationNo InformationNo InformationNo InformationNo InformationNo InformationNo InformationNo Information Source Comments (unrecognize d section and content) In the event this informatio n is protected by the Federal Confidentiality of Alcohol and Drug Abuse Patient Records regulations: The Federal rules restrict any use of the information to criminally investigate or prosecute any alcohol or drug abuse patient.[facility]In the event this information is protected by the Federal Confidentiality of Alcohol and Drug Abuse Patient Records regulations: The Federal rules restrict any use of the information to criminally investigate or prosecute any alcohol or drug abuse patient.[facility]In the event this information is protected by the Federal Confidentiality of Alcohol and Drug Abuse Patient Records regulations: The Federal rules restrict any use of the information to criminally investigate or prosecute any alcohol or drug abuse patient.[facility]In the event this information is protected by the Federal Confidentiality of Alcohol and Drug Abuse Patient Records regulations: The Federal rules restrict any use of the information to criminally investigate or prosecute any alcohol or drug abuse patient.[facility]In the event this information is protected by the Federal Confidentiality of Alcohol and Drug Abuse Patient Records regulations: The Federal rules restrict any use of the information to criminally investigate or prosecute any alcohol or drug abuse patient.[facility]In the event this information is protected by the Federal Confidentiality of Alcohol and Drug Abuse Patient Records regulations: The Federal rules restrict any use of the information to criminally investigate or prosecute any alcohol or drug abuse patient.[facility]woodsIn the event this information is protected by the Federal Confidentiality of Alcohol and Drug Abuse Patient Records regulations: The Federal rules restrict any use of the information to criminally investigate or prosecute any alcohol or drug abuse patient.[facility]woodsIn the event this information is protected by the Federal Confidentiality of Alcohol and Drug Abuse Patient Records regulations: The Federal rules restrict any use of the information to criminally investigate or prosecute any alcohol or drug abuse patient.[facility]In the event this information is protected by the Federal Confidentiality of Alcohol and Drug Abuse Patient Records regulations: The Federal rules restrict any use of the information to criminally investigate or prosecute any alcohol or drug abuse patient.[facility]In the event this information is protected by the Federal Confidentiality of Alcohol and Drug Abuse Patient Records regulations: The Federal rules restrict any use of the information to criminally investigate or prosecute any alcohol or drug abuse patient.[facility]In the event this information is protected by the Federal Confidentiality of Alcohol and Drug Abuse Patient Records regulations: The Federal rules restrict any use of the information to criminally investigate or prosecute any alcohol or drug abuse patient.[facility]In the event this information is protected by the Federal Confidentiality of Alcohol and Drug Abuse Patient Records regulations: The Federal rules restrict any use of the information to criminally investigate or prosecute any alcohol or drug abuse patient.[facility]woodsIn the event this information is protected by the Federal Confidentiality of Alcohol and Drug Abuse Patient Records regulations: The Federal rules restrict any use of the information to criminally investigate or prosecute any alcohol or drug abuse patient.[facility]In the event this information is protected by the Federal Confidentiality of Alcohol and Drug Abuse Patient Records regulations: The Federal rules restrict any use of the information to criminally investigate or prosecute any alcohol or drug abuse patient.[facility]In the event this information is protected by the Federal Confidentiality of Alcohol and Drug Abuse Patient Records regulations: The Federal rules restrict any use of the information to criminally investigate or prosecute any alcohol or drug abuse patient.[facility]woodsIn the event this information is protected by the Federal Confidentiality of Alcohol and Drug Abuse Patient Records regulations: The Federal rules restrict any use of the information to criminally investigate or prosecute any alcohol or drug abuse patient.[facility]woodsIn the event this information is protected by the Federal Confidentiality of Alcohol and Drug Abuse Patient Records regulations: The Federal rules restrict any use of the information to criminally investigate or prosecute any alcohol or drug abuse patient.[facility]woodsIn the event this information is protected by the Federal Confidentiality of Alcohol and Drug Abuse Patient Records regulations: The Federal rules restrict any use of the information to criminally investigate or prosecute any alcohol or drug abuse patient.[facility]woodsIn the event this information is protected by the Federal Confidentiality of Alcohol and Drug Abuse Patient Records regulations: The Federal rules restrict any use of the information to criminally investigate or prosecute any alcohol or drug abuse patient.[facility]woodsIn the event this information is protected by the Federal Confidentiality of Alcohol and Drug Abuse Patient Records regulations: The Federal rules restrict any use of the information to criminally investigate or prosecute any alcohol or drug abuse patient.[facility]woodsIn the event this information is protected by the Federal Confidentiality of Alcohol and Drug Abuse Patient Records regulations: The Federal rules restrict any use of the information to criminally investigate or prosecute any alcohol or drug abuse patient.[facility]woodsIn the event this information is protected by the Federal Confidentiality of Alcohol and Drug Abuse Patient Records regulations: The Federal rules restrict any use of the information to criminally investigate or prosecute any alcohol or drug abuse patient.[facility]woodsIn the event this information is protected by the Federal Confidentiality of Alcohol and Drug Abuse Patient Records regulations: The Federal rules restrict any use of the information to criminally investigate or prosecute any alcohol or drug abuse patient.[facility]In the event this information is protected by the Federal Confidentiality of Alcohol and Drug Abuse Patient Records regulations: The Federal rules restrict any use of the information to criminally investigate or prosecute any alcohol or drug abuse patient.[facility]woodsIn the event this information is protected by the Federal Confidentiality of Alcohol and Drug Abuse Patient Records regulations: The Federal rules restrict any use of the information to criminally investigate or prosecute any alcohol or drug abuse patient.[facility]woodsIn the event this information is protected by the Federal Confidentiality of Alcohol and Drug Abuse Patient Records regulations: The Federal rules restrict any use of the information to criminally investigate or prosecute any alcohol or drug abuse patient.[facility] Care Teams (unrecognized sec tion and content) Patient Service Associate Relationship Specialty Start Date End Date Carlos Chris Chi PCP - General Gerontology 12/28/16 Team Status: Active Member Role Status Dates Dr. Carlos Chris MD Family Provider Active Dr. Carlos Chris MD Primary Care Provider Active Team Status: Inactive Member Role Status Dates Dr. Carlos Chris MD Primary Care Provi erin, Attending Provider, Referring Provider Active Team Status: Inactive Member Role Status Dates Dr. Carlos Chris MD Primary Care Provider, Attending Provider Active Team Status: Inactive Member Role Status Dates Dr. Carlos Chris MD Primary Care Provider Active Dr. Joshua Chin DPM Attending Provider, Referri ng Provider Active Team Status: Active Member Role Status Dates Dr. Carlos Chris MD Primary Care Provider Active Carlos Chris MD Attending Provider Active Team Status: Inactive Member Role Status Dates Dr. Carols Chris MD Primary Care Provider Active Ramirez Stanley MD Emergency Provider Active Team Status: Inactive Member Role Status Dates Dr. Carlos Chris MD Primary Care Provider Active Carlos Chris MD Attending Provider Active Team Status: Inactive Member Role Status Dates Dr. Carlos Chris MD Primary Care Provider Active Ramirez Stanley MD Attending Provider, Emergency Provid er Active Team Status: Inactive Member Role Status Dates Dr. Carlos Chris MD Primary Care Provider Active Carlos PEREZ MD Attending Provider Active Team Status: Active Member Role Status Dates Dr. Carlos Chris MD Primary Care Provider Active RUY WORRELL Attending Provider Active Team Status: Inactive Member Role Status Dates Dr. Carlos Chris MD Primary Care Provider Active Dr. Josue Nolasco DO Emergency Provider Active Team Status: Inactive Member Role Status Dates Dr. Carlos Chris MD Primary Care Provider Active Dr. Josue Nolasco DO Attending Provider, Emergency P amy Active Team Status: Active Member Role Status Dates Dr. Carlos Chris MD Primary Care Provi erin, Attending Provider, Referring Provider Active Team Status: Inactive Member Role Status Dates Dr. Carlos Chris MD Primary Care Provider, Referring Provider Active LEONIE Tucker Attending Provider Active Team Status: Inactive Member Role Status Dates Dr. Carlos Chris MD Primary Care Provider Active MARVIN WORRELL Attending Provider Active Patient Service Associate Relationship Specialty Start Date End Date Carlos Chris Chi PCP - General Gerontology 12/28/16 Patient Service Associate Relationship Specialty Start Date End Date Carlos Chris Chi PCP - General Gerontology 12/28/16 Patient Service Associate Relationship Specialty Start Date End Date Carlos Chris Chi PCP - General Gerontology 12/28/16 Team Status: Active Member Role Status Dates Dr. Carlos Chris MD Primary Care Provider Active Dr. Gayle Hernandez DO Attending Provider Active Team Status: Inactive Member Role Status Dates Dr. Carlos Chris MD Primary Care Provider Active Dr. Gudelia Mi MD Attending Provider, Referring Provider Active Team Status: Active Member Role Status Dates Dr. Carlos Chris MD Primary Care Provider Active Dr. Gudelia Mi MD Attending Provider, Referring Provider Active Team Status: Active Member Role Status Dates Dr. Carlos Chris MD Primary Care Provider Active Sylvia Broussard NP-C Attending Provider, Referring Pr ovider Active Patient Service Associate Relationship Specialty Start Date End Date Ivelisse Phillip MD [address] [place], [place] [id number] PCP - General Internal Medicine 11/17/10 12/27/16 Aries Carlos Madden [address] [place] [address] PCP - General Gerontology 12/28/16 Patient Service Associate Relationship Specialty Start Date End Date Carlos Chris Chi PCP - General Gerontology 12/28/16 Patient Service Associate Relationship Specialty Start Date End Date Carlos Chris Chi PCP - General Gerontology 12/28/16 Team Status: Inactive Member Role Status Dates Dr. Carlos Chris MD Primary Care Provider, Referring Provider Active Darlin Glez PA, PA Attending Provider Active Patient Service Associate Relationship Specialty Start Date End Date Carlos Chris Chi PCP - General Gerontology 12/28/16 Team Status: Inactive Member Role Status Dates Dr. Carlos Chris MD Primary Care Provider Active Dr. Gayle Hernandez DO Attending Provider Active Team Status: Inactive Member Role Status Dates Dr. Carlos Chris MD Primary Care Provider Active Sylvia Broussard NP-C Attending Provider, Referring Pr ovider Active Patient Service Associate Relationship Specialty Start Date End Date Carlos Chris Chi PCP - General Gerontology 12/28/16 Patient Service Associate Relationship Specialty Start Date End Date Carlos Chris Chi PCP - General Gerontology 12/28/16 Patient Service Associate Relationship Specialty Start Date End Date Carlos Chris Chi PCP - General Gerontology 12/28/16 Team Status: Active Member Role Status Dates Dr. Carlos Chris MD Primary Care Provider, Attending Provider Active Patient Service Associate Relationship Specialty Start Date End Date Carlos Chris Chi PCP - General Gerontology 12/28/16 Team Status: Inactive Member Role Status Dates Dr. Carlos Chris MD Primary Care Provider Active LEONIE Tucker Attending Provider Active Team Status: Inactive Member Role Status Dates Dr. Carlos Chris MD Primary Care Provider Active Dr. Marva Das MD Attending Provider, Referring P rovider Active Team Status: Inactive Member Role Status Dates Dr. Carlos Chris MD Primary Care Provider, Referring Provider Active Suraj CHAPMAN, PA Attending Provider Active Team Status: Inactive Member Role Status Dates Dr. Carlos Chris MD Primary Care Provider Active JENNIFER VILLAGRAN Attending Provider, Referring Provi erin Active Team Status: Inactive Member Role Status Dates Dr. Carlos Chris MD Primary Care Provider, Referring Provider Active Dr. Gino Glover MD Attending Provider Active Patient Service Associate Relationship Specialty Start Date End Date Higinio Chris MD [address] [facility] [facility] [address] [address] PCP - General 02/16/22 Patient Service Associate Relationship Specialty Start Date End Date Carlos Chris Chi PCP - General Gerontology 12/28/16 Patient Service Associate Relationship Specialty Start Date End Date Carlos Chris Chi PCP - General Gerontology 12/28/16 Patient Service Associate Relationship Specialty Start Date End Date Carlos Chris Chi PCP - General Gerontology 12/28/16 Patient Service Associate Relationship Specialty Start Date End Date Carlos Chris Chi PCP - General Gerontology 12/28/16 Patient Service Associate Relationship Specialty Start Date End Date Carlos Chris Chi PCP - General Gerontology 12/28/16 Patient Service Associate Relationship Specialty Start Date End Date Carlos Chris Chi PCP - General Gerontology 12/28/16 Patient Service Associate Relationship Specialty Start Date End Date Carlos Chris Chi PCP - General Gerontology 12/28/16 Patient Service Associate Relationship Specialty Start Date End Date Carlos Chris Chi PCP - General Gerontology 12/28/16 Patient Service Associate Relationship Specialty Start Date End Date Carlos Chris Chi PCP - General Gerontology 12/28/16 Team Status: Active Member Role Status Dates Dr. Carlos Chris MD Primary Care Provider Active Team Status: Inactive Member Role Status Dates Dr. Carlos Chris MD Primary Care Provider Active Start: August 21, 2024 End: August 21, 2024 Dr. Kristofer An DO Attending Provider Active Start: August 21, 2024 End: August 21, 2024 Dr. Kristofer An DO Referring Provider Active Start: August 21, 2024 End: August 21, 2024 Team Status: Inactive Member Role Status Dates Dr. Carlos Chris MD Primary Care Provider Active Start: August 22, 2024 End: August 22, 2024 Dr. Carlos Chris MD Referring Provider Active Start: August 22, 2024 End: August 22, 2024 Dr. Kristofer An DO Attending Provider Active Start: August 22, 2024 End: August 22, 2024 Team Status: Inactive Member Role Status Dates Dr. Carlos Chris MD Primary Care Provider Active Start: September 11, 2024 End: September 11, 2024 Dr. Carlos Chris MD Attending Provider Active Start: September 11, 2024 End: September 11, 2024 Dr. Carlos Chris MD Referring Provider Active Start: September 11, 2024 End: September 11, 2024 Team Status: Inactive Member Role Status Dates Dr. Carlos Chris MD Primary Care Provider Active Start: September 12, 2024 End: September 12, 2024 Dr. Kristofer An DO Attending Provider Active Start: September 12, 2024 End: September 12, 2024 Dr. Kristofer An DO Referring Provider Active Start: September 12, 2024 End: September 12, 2024 Team Status: Inactive Member Role Status Dates Dr. Carlos Chris MD Primary Care Provider Active Start: September 17, 2024 End: September 17, 2024 Dr. Marva Das MD Attending Provider Active Start: September 17, 2024 End: September 17, 2024 Dr. Marva Das MD Referring Provider Active Start: September 17, 2024 End: September 17, 2024 Team Status: Inactive Member Role Status Dates Dr. Carlos Chris MD Primary Care Provider Active Start: September 24, 2024 End: September 24, 2024 Dr. Carlos Chris MD Attending Provider Active Start: September 24, 2024 End: September 24, 2024 Team Status: Inactive Member Role Status Dates Dr. Carlos Chris MD Primary Care Provider Active Start: October 13, 2024 End: October 14, 2024 Ramirez Stanley MD Emergency Provider Active Star t: October 13, 2024 End: October 14, 2024 Dr. Vicenta Hernandez DO Admit Provider Active Start : October 13, 2024 End: October 14, 2024 Dr. Vicenta Hernandez DO Referring Provider Active S tart: October 13, 2024 End: October 14, 2024 Dr. Vicenta Hernandez DO Other Provider Active Start : October 13, 2024 End: October 14, 2024 Dr. Prudencio Prince MD Attending Provider Active Start: October 13, 2024 End: October 14, 2024 Team Status: Active Member Role Status Dates Dr. Carlos Chris MD Primary Care Provider Active Start: October 13, 2024 Ramirez Stanley MD Emergency Provider Active Star t: October 13, 2024 Dr. Vicenta Hernandez DO Admit Provider Active Start : October 13, 2024 Dr. Vicenta Hernandez DO Attending Provider Active S tart: October 13, 2024 Dr. Vicenta Hernandez DO Other Provider Active Start : October 13, 2024 Team Status: Active Member Role Status Dates Dr. Carlos Chris MD Primary Care Provider Active Start: October 14, 2024 Ramirez Stanlye MD Emergency Provider Active Star t: October 14, 2024 Dr. Vicenta Hernandez DO Admit Provider Active Start : October 14, 2024 Dr. Vicenta Hernandez DO Other Provider Active Start : October 14, 2024 Dr. Prudencio Prince MD Attending Provider Active Start: October 14, 2024 Dr. Prudencio Prince MD Other Provider Active Start: October 14, 2024 Team Status: Inactive Member Role Status Dates Dr. Carlos Chris MD Primary Care Provider Active Start: October 19, 2024 End: October 19, 2024 Dr. Joshua Chin DPM Attending Provider Active Start: October 19, 2024 End: October 19, 2024 Dr. Joshua Chin DPM Referring Provider Active Start: October 19, 2024 End: October 19, 2024 Team Status: Inactive Member Role Status Dates Dr. Carlos Chris MD Primary Care Provider Active Start: November 13, 2024 End: November 13, 2024 Dr. Carlos Chris MD Attending Provider Active Start: November 13, 2024 End: November 13, 2024 Dr. Carlos Chris MD Referring Provider Active Start: November 13, 2024 End: November 13, 2024 Team Status: Inactive Member Role Status Dates Dr. Carlos Chris MD Primary Care Provider Active Start: November 20, 2024 End: November 20, 2024 Dr. Carlos Chris MD Referring Provider Active Start: November 20, 2024 End: November 20, 2024 Dr. Kristofer An DO Attending Provider Active Start: November 20, 2024 End: November 20, 2024 Team Status: Inactive Member Role Status Dates Dr. Carlos Chris MD Primary Care Provider Active Start: November 20, 2024 End: November 20, 2024 Dr. Kristofer An DO Attending Provider Active Start: November 20, 2024 End: November 20, 2024 Dr. Kristofer An DO Referring Provider Active Start: November 20, 2024 End: November 20, 2024 Team Status: Inactive Member Role Status Dates Dr. Carlos Chris MD Primary Care Provider Active Start: November 22, 2024 End: November 22, 2024 Dr. Carlos Chris MD Attending Provider Active Start: November 22, 2024 End: November 22, 2024 Dr. Carlos Chris MD Referring Provider Active Start: November 22, 2024 End: November 22, 2024 Team Status: Inactive Member Role Status Dates Dr. Carlos Chris MD Primary Care Provider Active Start: December 03, 2024 End: December 03, 2024 Dr. Carlos Chris MD Attending Provider Active Start: December 03, 2024 End: December 03, 2024 Dr. Carlos Chris MD Referring Provider Active Start: December 03, 2024 End: December 03, 2024 Dr. Gudelia Mi MD Other Provider Active S tart: December 03, 2024 End: December 03, 2024 Team Status: Inactive Member Role Status Dates Dr. Carlos Chris MD Primary Care Provider Active Start: January 11, 2025 End: January 11, 2025 Dr. Carlos Chris MD Attending Provider Active Start: January 11, 2025 End: January 11, 2025 Dr. Carlos Chris MD Referring Provider Active Start: January 11, 2025 End: January 11, 2025 Team Status: Inactive Member Role Status Dates Dr. Carlos Chris MD Referring Provider Active Start: February 21, 2025 End: February 21, 2025 Dr. Kristofer An DO Attending Provider Active Start: February 21, 2025 End: February 21, 2025 Patient Service Associate Relationship Specialty Start Date End Date Carlos Chris Chi PCP - General Gerontology 12/28/16 Team Status: Inactive Member Role Status Dates Dr. Carlos Chris MD Primary Care Provider Active Start: February 21, 2025 End: February 21, 2025 Dr. Kristofer An DO Attending Provider Active Start: February 21, 2025 End: February 21, 2025 Dr. Kristofer An DO Referring Provider Active Start: February 21, 2025 End: February 21, 2025 Team Status: Active Member Role Status Dates Dr. Carlos Chris MD Primary Care Provider Active Start: February 27, 2025 Dr. Carlos Chris MD Referring Provider Active Start: February 27, 2025 Dr. Anju Torres MD Attending Provider Active Start: February 27, 2025 Team Status: Inactive Member Role Status Dates Dr. Carlos Chris MD Primary Care Provider Active Start: February 27, 2025 End: February 27, 2025 Dr. Carlos Chris MD Referring Provider Active Start: February 27, 2025 End: February 27, 2025 Dr. Anju Torres MD Attending Provider Active Start: February 27, 2025 End: February 27, 2025 Team Status: Inactive Member Role Status Dates Dr. Carlos Chris MD Primary Care Provider Active Start: March 08, 2025 End: March 08, 2025 Dr. Carlos Chris MD Referring Provider Active Start: March 08, 2025 End: March 08, 2025 Dr. Anju Torres MD Attending Provider Active Start: March 08, 2025 End: March 08, 2025 REASON FOR VISIT (unrecogniz ed section and content) Reason Comments Results Reason Comments Orders Reason Comments Pre-Op Visit Reason Comments Post Op Consult to [facility] Reason Comments Appointment Specialty Diagnoses / Procedures Referred By Contac t Referred To Contact Diagnoses Peritoneal adhesions Adhesion of omentum Ovarian cyst, left Procedures CONSULT TO MINIMALLY INVASIVE GYNECOLOGIC SURGERY OFFICE/OUTPATIENT [facility] MDM 60-74 MINUTES Gudelia Mi MD [address] [place] [address] Referral ID Status Reason Start Date Expiration Date V isits Requested Visits Authorized [id number] Closed PCP Requested Referral Auto-Generated Referral 03/23/2023 [...] Gudelia Mi MD [address] [place] [address] [place] [address] Referral ID Status Reason Start Date Expiration Date V isits Requested Visits Authorized [id number] Closed Auto-Generate d Referral 07/03/2024 09/01/2024 2 2 Specialty Diagnoses / Procedures Referred By Contac t Referred To Contact CT IMAGING Diagnoses Elevated AFP Abnormal tumor markers Procedures CT PELVIS W IVCON CT PELVIS W/CONTRAST MATERIAL Gudelia Mi MD [address] [place] [address] [place] [address] Reason Comments Thyroid Problem Reason Comments Care Coordination Pre op clearance Reason Comments Surgical Clearance Reason Comments Thyroid Problem Hypoglycemia Follow-up Reason Onset Date Comments Refill Request 12/25/2024 INFORMATION SOURCE (unrecogn ized section and content) DATE CREATED AUTHOR 10/11/2022 [employer] [facility] DATE CREATED AUTHOR AUTHOR'S ORGANIZ ATION 01/14/2023 [facility] DATE CREATED AUTHOR AUTHOR'S ORGANIZ ATION 05/11/2023 [facility] DATE CREATED AUTHOR AUTHOR'S ORGANIZ ATION 05/21/2024 [facility] DATE CREATED AUTHOR AUTHOR'S ORGANIZ ATION 12/24/[address] [facility] DATE CREATED AUTHOR AUTHOR'S ORGANIZ ATION 03/14/2025 [facility] FOR RECORDS PERTAINING TO PATIENTS WHO [...] BE BASED ON THE PRIMARY CLINICAL RECORDS. [facility]. provides no warranty or guarantee of the accuracy or completeness of information in this document.
--- NOTE | 2025-03-21 06:59 | PCM.HP.BLA ---
History and Physical Date of Admission: 03/21/25 Date of Service: 03/08/25 MR#: [id number] Acct: [id number] Name: ROMAIN WESLEY Rep #: [id number] : 1975 Provider: Dr. Anju Torres MD Age/Sex: 49/F Location: [facility] Status: Signed Intake Vital Signs 10/19/2510:52 03/08/2509:03 Height 5 ft 5 ft Weight: 146 lb BMI 28.5 BP 105/70 Blood Pressure Location Rt brachial Position Sitting Respiration 17 Pulse 62 Pulse Source Monitor Pulse Oximetry (%) 100 Oxygen Delivery Method room air Intake Visit Reasons: CHOLECYSTITIS Chief Complaint: cholecystitis Is patient in pain?: Yes (after eats, right side pain) Allergies citalopram Allergy (Verified 03/08/25 09:04) unknowncodeine Allergy (Verified 03/08/25 09:04) Unknownlithium Allergy (Verified 03/08/25 09:04) Unknown Medications ?Medication ?Instructions ?Recorded ?Confirmed ?Type rosuvastatin 40 mg tablet (Crestor) 40 mg PO DAILY #30 tabs 08/07/20 03/08/25 Rx alprazolam 0.5 mg tablet (Xanax) 0.5 mg PO QHS PRN Anxiety 04/06/21 03/08/25 History allopurinol 100 mg tablet 100 mg PO DAILY 03/10/23 03/08/25 History calcium citrate malate-vit D3 1 ea PO/SL DAILY 03/10/23 03/08/25 History cyanocobalamin (B12)-cobamamide 1 sona sublingual DAILY 03/10/23 03/08/25 History 5,000 mcg-100 mcg sublingual lozenge (B12) pediatric multivitamin no.76 2 tab PO DAILY 03/10/23 03/08/25 History (Flintstones Complete chewable tablet) albuterol sulfate 90 mcg/actuation 2 puff inhalation Q4H PRN 03/29/23 03/08/25 Rx aerosol inhaler shortness of breath or wheezing #1 device estradiol 0.075 mg/24 hr weekly 1 patch transdermal TH 07/22/23 03/08/25 History transdermal patch vilazodone 10 mg tablet 20 mg PO QHS 07/22/23 03/08/25 History vitamin E (dl, acetate) 180 mg 180 mg PO QDAY 08/22/24 03/08/25 History (400 unit) capsule levothyroxine 137 mcg tablet 137 mcg PO DAILY 10/15/24 03/08/25 History PFSH Medical History History of Clostridium difficile infection Hypoglycemia Gout Seizures Ureterolithiasis Bipolar disorder Thyroid disease High cholesterol Dietary restriction Sleep apnea Wears dentures History of renal disease Fatty liver Gastric reflux Non-smoker History of echocardiogram History of stress test Cardiology follow-up encounter Hypertension 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 Right foot pain Right knee pain Knee pain Stage 3 chronic kidney disease Vitamin D deficiency Postablative hypothyroidism Clostridium difficile infection Wears glasses Pain aggravated by walking Chest pain Obesity Coronary artery calcification Paresthesia Anxiety DDD (degenerative disc disease), thoracic Segmental and somatic dysfunction of thoracic region Osteoarthritis Asthma Depression Hypothyroidism Essential (primary) hypertension Hyperlipidemia Surgical History History of cystoscopy History of foot surgery Hx of bilateral salpingo-oophorectomy Bariatric surgery status Hx of colonoscopy Hx of right knee surgery Hx of appendectomy H/O tooth extraction History of appendectomy History of section, classical History of hysterectomy History of eyelid surgery Family History Mother Diabetes Breast cancer Anemia Depression HypertensionFather Diabetes Heart disease Hypertension CVA (cerebral vascular accident) in his 40'2 from CVA HyperlipemiaBrother Asthma Hypertension CAD (coronary artery disease), Onset Age: 50 coronary stentsSister Depression SeizuresGrandmother Diabetes Thyroid disorder Heart diseaseGrandfather Diabetes Thyroid disorder Heart diseaseAunt Heart disease CAD (coronary artery disease) stentsUncle Heart disease CAD (coronary artery disease) stentsOther Arthritis Social History Smoking Status: Never smoker second hand exposure: No alcohol intake: never substance use type: does not use caffeine: Yes frequency: does not exercise HPI HPI HPI: 49-year-old female presents for right upper quadrant pain after eating. Patient states she has been watching what she eats but anything can cause her the right upper quadrant pain. Patient did have gastric bypass about 2 years ago at [facility]?patient states she used to be about 300 pounds. Patient states her pain is typically constantly about a 4/10 but can increase and doubled her over after eating. Patient does have a history of Pak and has previously had a liver biopsy in September. Patient's most recent liver functions AST and ALT and alk phos were elevated in February. Total bili was normal. Patient has had a previous gastric bypass, laparoscopic appendectomy. Patient had ultrasound showed small amount of sludge with normal gallbladder wall, no pericholecystic fluid, fatty liver. ROS General General: Yes fatigue; No weight change, appetite, colon cancer or breast cancer HEENT HEENT: No difficulty swallowing, eye injury, eye surgery, swollen glands or hoarseness Endo Endocrine: Yes thyroid disease; No diabetes mellitus, thyroid cancer, Hair loss, heat intolerance or cold intolerance Skin Skin: No rash or changing moles Musc Musculoskeletal: Yes arthritis; No back problems, rheumatoid arthritis, gout or joint pain Cardio Cardiovascular: No murmur, pacemaker, heart disease, atrial fibrillation, high blood pressure, heart attack, heart stent, palpitations, shortness of breath with exertion or chest pain Psych Psychiatric: Yes depression and anxiety; No hearing voices Resp Respiratory: No shortness of breath, No sleep apnea, No cough, No COPD, No asthma, No emphysema and No wheezing Gastro Gastrointestinal: Yes abdominal pain, No nausea or vomiting, No diarrhea, No constipation, No blood in stool, No acid reflux, No hemorrhoids, No ulcers, Yes gallbladder problem and No black,tarry stools Donnie Hematologic: No blood thinners, No blood disorders, No bleeding, No anemia and No blood clots Neuro Neurologic: No numbness and No tingling Exam Const General: cooperative, healthy appearing, comfortable and no acute distress [facility] Head: normocephalic and atraumatic Neck Neck: supple Resp Effort & Inspection: normal respiratory effort Cardio Rate: regular rate GI Inspection: non-distended Palpation: soft, no guarding, hernia and tender in the RUQ (Minimal); with no rebound tenderness Skin General: no rashes or lesions noted Neuro General: CN's II-XI intact bilaterally Extrem General: normal to inspection Psych Mental Status: mental status grossly normal Attitude: cooperative Assessment and Plan Assessment and Plan (1) Gallbladder sludge: Status: Acute (2) RUQ pain: Status: Acute (3) NAFLD (nonalcoholic fatty liver disease): Status: Chronic Plan Reviewed the anatomy with the patient and discussed the procedure: laparoscopic cholecystectomy with possible cholangiograms, possible open. Review risks including but not limited to bleeding, infection, hernia, bile leak, retained gallstones requiring another procedure ERCP- Endoscopic Retrograde Cholangiopancreatography, injury to another organ (bile ducts, common bile duct, small bowel, etc.) and conversion to an open procedure. All questions were answered. Anju Torres M.D. Pager: [phone] [facility] [address] [place] [address] Office: [phone] Coding Level of Care Code Off vis,new,level 3 Diagnoses Gallbladder sludge K82.8 RUQ pain R10.11 NAFLD (nonalcoholic fatty liver disease) K76.0 03/08/25 0921 <Electronically signed by Anju Torres MD> Date Anju Torres MD
[2025-03-21] MEDS: Lactated Ringers 1,000 ML 15 ML IV (07:09)
--- NOTE | 2025-03-21 07:57 | PCM.PRE.AN2 ---
ASA Classification* ASA Classification ASA Classification: 2 Assessment & Plan Anesthesia* Anesthesia Assessment Anesthesia Assessment: Discussed sedation and/or anesthesia options, risks, benefits, and alternatives with patient/parents/legal guardian/POA. Questions invited. The patient/parents/legal guardian/POA seems to understand and agrees to proceed with anesthesia plan. Reviewed the physical assessment, medical history, allergy history and patient home medications list prior to surgery/procedure/anesthetic and documented any changes. Performed airway and anesthesia risk assessments. Anesthesia Type Anesthesia Type: General Anesthesia Focused Assessment* Temperature: 97.6 F Pulse Rate: 58 Blood Pressure: 97/59 Respiratory Rate: 18 Pulse Ox: 100 Airway Assessment Mouth opens: >3 cm Mallampati Score: II Labs Anesthesia Preop lab: CBC WBC 7.5 K/mm3 (4.4-11.0) 02/21/25 14:57 02/21/25 RBC 4.47 M/mm3 (4.2-5.4) 02/21/25 14:57 02/21/25 Hgb 13.8 g/dL (12.0-15.0) 02/21/25 14:57 02/21/25 Hct 41.2 % (37-47) 02/21/25 14:57 02/21/25 Plt Count 244 K/mm3 (150-450) 02/21/25 14:57 02/21/25 CHEMISTRY Potassium 4.7 mmol/L (3.3-5.1) 02/21/25 14:57 02/21/25 Sodium 137 mmol/L (133-145) 02/21/25 14:57 02/21/25 Magnesium 2.2 mg/dL (1.5-2.2) 02/21/25 14:57 02/21/25 Phosphorus 3.5 mg/dL (2.7-4.5) 02/21/25 14:57 02/21/25 BUN 17 mg/dL (4-19) 02/21/25 14:57 02/21/25 Creatinine 1.08 mg/dL (0.70-1.20) 02/21/25 14:57 02/21/25 Glucose 83 mg/dL (70-99) 02/21/25 14:57 02/21/25 TSH 0.205 uIU/mL (0.358-3.740) L 11/22/24 09:58 11/22/24 COAG PT 14.4 SECONDS (11.7-14.9) 02/21/25 14:57 02/21/25 Pre-Assessment Diagnosis/Proposed Procedure Planned Operative Procedure(s): LAP CHOLEY WITH IOC Anesthesia History 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 When Was Last Pacemaker Check QUESTION #4 FULL TEXT: You/Your Family Experience fever (hyperthermia) with Anesthesia Last Oral Intake Last Oral intake: Last Oral Intake NPO since Meds taken in AM with sips of water? Meds patient instructed to take am of surgery PONV PONV - movie theater manager: PONV - movie theater manager Female Yes 03/13/25 08:16 HX of Motion Sickness No 03/13/25 08:16 HX of N/V After Surgery No 03/13/25 08:16 Non-Smoker Yes 03/13/25 08:16 Duration of Surgery greater No 03/13/25 08:16 than 60 minutes Number of Risk Factors 2 03/13/25 08:16 PONV Score Moderate Risk 03/13/25 08:16 Height & Weight Height & Weight: Anesthesia: Height & Weight Height 5 ft 03/21/25 06:54 Weight: 67.495 kg 03/21/25 06:54 Body Mass Index (BMI) 29.0 03/21/25 06:54 Respiratory Assessment Respiratory Assessment - movie theater manager: Respiratory Tract Infection Hx - movie theater manager Hx Respiratory Tract Infection No 03/13/25 08:16 STOP Sleep Apnea STOP Sleep Apnea - movie theater manager: STOP Sleep Apnea - movie theater manager Hx Hypertension Yes: NO MED FOR 2 YRS 03/13/25 08:16 Hx Sleep Apnea Yes 03/13/25 08:16 CPAP Yes: NO LONGER NEEDED SINCE 03/13/25 08:16 WEIGHT LOSS BIPAP No 03/13/25 08:16 Do you snore loudly (louder than talking or can be heard Do you often feel tired/ fatigued/ sleepy during daytime? Has anyone observed you stop breathing during sleep? STOP Results Positive 03/13/25 08:16 QUESTION #5 FULL TEXT : Do you snore loudly (louder than talking or can be heard through closed doors)? Tobacco Use History Tobacco Use History - movie theater manager: Tobacco Use History - movie theater manager Tobacco Use Non-smoker 06/03/24 08:27 Smoking Status Never smoker 03/13/25 08:16 Hx Tobacco Use No 03/13/25 08:16 Years Smoking Packs Smoked per Day Smoking Cessation Date was within the last 15 years Hx Smoking Cessation Date Hx Smoking Cessation Counseling Hematologic Medial History Hematologic Hx - movie theater manager: Hematologic Medical Hx - body former Hx of Blood Transfusion No 03/13/25 08:16 Hx of Transfusion in last 3 No 03/13/25 08:16 Months Date of Last Transfusion (if within last 3 months) Ever experience any problems No 03/13/25 08:16 with transfusion(s)? Specify any problems Hx of Preganancy in last 3 No 03/13/25 08:16 Months Nurse Filling Out Transfusion DSCHRIBER 03/13/25 08:16 & Questions: Date: 03/13/25 03/13/25 08:16 Time: 08:17 03/13/25 08:16 Patient unable to answer at this time (ie. confused, unrespo /Reproduction History /Reproductive History - movie theater manager: /Reproductive Hx- movie theater manager Hx Now No 03/13/25 08:16 Gestational Age (in weeks): EDC: Hx Hx Para Hx Section SAB No 03/13/25 08:16 Active Medications Active Medications: Current Medications Generic Name Dose Route Start Last Admin Trade Name Freq PRN Reason Stop Dose Admin Cefazolin Sodium 2 gm/ Sodium 110 mls @ 150 mls/hr 03/21/25 08:00 Chloride IV 03/21/25 08:43 INTRAOP ONE Lactated Ringer's 1,000 mls @ 15 mls/hr 03/21/25 06:30 03/21/25 07:09 IV 15 mls/hr .Q48H TARIK Administration PFSH Medical History Wears dentures Biliary dyskinesia History of Clostridium difficile infection Hypoglycemia Gout Seizures Ureterolithiasis Bipolar disorder Thyroid disease High cholesterol Dietary restriction Sleep apnea Wears dentures History of renal disease Fatty liver Gastric reflux Non-smoker History of echocardiogram History of stress test Cardiology follow-up encounter Hypertension 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 Right foot pain Right knee pain Knee pain Stage 3 chronic kidney disease Vitamin D deficiency Postablative hypothyroidism Clostridium difficile infection Wears glasses Pain aggravated by walking Chest pain Obesity Coronary artery calcification Paresthesia Anxiety DDD (degenerative disc disease), thoracic Segmental and somatic dysfunction of thoracic region Osteoarthritis Asthma Depression Hypothyroidism Home Medications ?Medication ?Instructions ?Recorded ?Last Taken ?Type rosuvastatin 40 mg tablet (Crestor) 40 mg PO DAILY #30 tabs 08/07/20 03/20/25 Rx alprazolam 0.5 mg tablet (Xanax) 0.5 mg PO QHS PRN Anxiety 04/06/21 Unknown History allopurinol 100 mg tablet 100 mg PO DAILY 03/10/23 03/20/25 History calcium citrate malate-vit D3 1 ea PO/SL DAILY 03/10/23 03/20/25 History cyanocobalamin (B12)-cobamamide 1 sona sublingual DAILY 03/10/23 03/20/25 History 5,000 mcg-100 mcg sublingual lozenge (B12) pediatric multivitamin no.76 2 tab PO DAILY 03/10/23 03/20/25 History (Flintstones Complete chewable tablet) albuterol sulfate 90 mcg/actuation 2 puff inhalation Q4H PRN 03/29/23 Unknown Rx aerosol inhaler shortness of breath or wheezing #1 device estradiol 0.075 mg/24 hr weekly 1 patch transdermal TH 07/22/23 03/21/25 History transdermal patch vilazodone 10 mg tablet 20 mg PO QHS 07/22/23 03/20/25 History vitamin E (dl, acetate) 180 mg 180 mg PO QDAY 08/22/24 03/20/25 History (400 unit) capsule levothyroxine 137 mcg tablet 137 mcg PO DAILY 10/15/24 03/21/25 05:00 History Allergy/AdvReac Type Severity Reaction Status Date / Time citalopram Allergy unknown Verified 03/21/25 06:43 codeine Allergy Unknown Verified 03/21/25 06:43 lithium Allergy Unknown Verified 03/21/25 06:43 Family History Mother Diabetes Breast cancer Anemia Depression Hypertension Father Diabetes Heart disease Hypertension CVA (cerebral vascular accident) in his 40'2 from CVA Hyperlipemia Brother Asthma Hypertension CAD (coronary artery disease), Onset Age: 50 coronary stents Sister Depression Seizures Grandmother Diabetes Thyroid disorder Heart disease Grandfather Diabetes Thyroid disorder Heart disease Aunt Heart disease CAD (coronary artery disease) stents Uncle Heart disease CAD (coronary artery disease) stents Other Arthritis Surgical History History of bunionectomy of right great toe History of cystoscopy History of foot surgery Hx of bilateral salpingo-oophorectomy Bariatric surgery status Hx of colonoscopy Hx of right knee surgery Hx of appendectomy H/O tooth extraction History of appendectomy History of section, classical History of hysterectomy History of eyelid surgery Social History Smoking Status: Never smoker second hand exposure: No alcohol intake: never substance use type: does not use caffeine: Yes frequency: does not exercise Review of Systems (Anesthesia) ROS Narrative System reviewed and no additional complaints, except as documented.
[2025-03-21] MEDS: Cefazolin 2 GM in 0.9% Normal Saline (100mL Bag) 100 ML IV (08:17)
--- NOTE | 2025-03-21 08:37 | RAD_ITS ---
PROCEDURE: CHOLANGIOGRAM/ O R,INITIAL; O.R. FLUORO FOR C-ARM 03/21/2025 REASON FOR EXAM: CHOLECYSTECTOMY TECHNIQUE: Intraoperative fluoroscopy was performed for intraoperative cholangiogram following cholecystectomy. No images are presented. Fluoroscopy time: 10.2 seconds. RAD/O.R. Fluoro for C-Arm IMPRESSION: Intraoperative fluoroscopy was performed for intraoperative cholangiogram follo wing cholecystectomy. No images are presented. Reading Location: [address]
--- NOTE | 2025-03-21 08:37 | RAD_ITS ---
PROCEDURE: CHOLANGIOGRAM/ O R,INITIAL; O.R. FLUORO FOR C-ARM 03/21/2025 REASON FOR EXAM: CHOLECYSTECTOMY TECHNIQUE: Intraoperative fluoroscopy was performed for intraoperative cholangiogram following cholecystectomy. No images are presented. Fluoroscopy time: 10.2 seconds. RAD/Cholangiogram/ O R,Initial IMPRESSION: Intraoperative fluoroscopy was performed for intraoperative cholangiogram follo wing cholecystectomy. No images are presented. Reading Location: [address]
[2025-03-21 09:01] LABS: AST(SGOT) 107 U/L (<=31); Alanine Aminotransfer ALT/SGPT 102 U/L (<=34); Albumin, Serum 4.1 g/dL (3.5-5.0); Alkaline Phosphatase 57 U/L (35-104); Bilirubin, Direct 0.27 mg/dL (0.00-0.30); Globulin 3.2 g/dL (2.2-4.2); Protein, Total 7.3 g/dL (5.9-8.4); Total Bilirubin 0.74 mg/dL (0.00-1.30)
[2025-03-21] MEDS: Bupivacaine Mpf 0.5% 30 ML VIAL (09:18)
--- NOTE | 2025-03-21 09:20 | OP.PCM_ITS ---
Operative Report (Standard) Operative Information Date of Procedure: 03/21/25 Pre-Operative Diagnosis: Gallbladder sludge, right upper quadrant pain, elevated liver functions Post-Operative Diagnosis: Same Surgery/Procedure Performed: Laparoscopic cholecystectomy with cholangiograms, liver biopsy personal injury paralegal: Yes Oil And Gas Superintendent: Yamila Vallejo Tasks completed by fleet assistant: Opening & closing and Retracting Type of Anesthesia: General/Supplemental RN Documented Start/Stop Times: Operation Date: 03/21/25 08:00 Case Time Into Pre-Op 03/21/25 06:24 Out of Pre-Op 03/21/25 08:04 Anesthesia Start 03/21/25 08:09 Into Room 03/21/25 08:09 Procedure Start 03/21/25 08:30 Procedure End 03/21/25 09:29 Anesthesia End 03/21/25 09:34 Out of Room 03/21/25 09:34 Into Recovery 03/21/25 09:39 Procedure Start Time: 08:30 Procedure Stop Time: 09:29 Select all DRAINS/GRAFTS/IMPLANTS that apply: None Special Medications: Ancef 2 g IV x 1 Estimated Blood Loss: 10 cc Specimen collected: Yes Description of specimen(s) removed: Gallbladder, liver biopsy Description of surgery: Indications: this is a 49 year-old female who developed abdominal pain/nausea/vomiting and on workup was found to have gallbladder sludge, elevated LFTs, with a normal common bile duct. Laparoscopic cholecystectomy was elected. Description procedure: The patient was placed on operating table in supine position. A timeout was completed verifying correct patient, procedure, site, position and special equipment prior to beginning procedure. General Anesthesia was induced. The abdomen was prepped and draped in usual sterile fashion. An incision was made in the natural skin line above the umbilicus. The fascia was elevated and incised. The peritoneum was elevated and incised. Entry into the peritoneum was confirmed visually and no bowel was noted in the vicinity of the incision. Aguilar trocar was placed. The abdomen was insufflated with carbon dioxide to a pressure of 12-15 mmHg. Patient tolerated insufflation well. The laparoscope was then inserted and abdomen inspected. No injuries from initial trocar placement were noted. Additional trochars were then inserted in the following locations 5 mm trocar in the epigastrium and 2 more 5 mm trochars along the right costal margin. The abdomen was inspected no abnormalities were found. The table is placed in reverse Trendelenburg position with the right side up. The dome of the gallbladder was grasped with atraumatic grasper passed through the lateral port and retracted over the dome of the liver. Infundibulum was then grasped with atraumatic grasper through the midclavicular port and retracted to the right lower quadrant. This maneuver exposed Calot's triangle. The peritoneum overlying the gallbladder infundibulum was then incised and cystic duct and artery identified and circumferentially dissected. Lowe catheter was used for cholangiograms. The cholangiogram showed good filling of the common bile duct into the duodenum with no filling defects, good filling of the right and left bile ducts as well. The cystic duct and artery were then doubly clipped and divided close to the gallbladder. The gallbladder then dissected from its peritoneal attachments by electrocautery. Hemostasis was checked and the gallbladder and contained stones were removed using the endoscopic retrieval bag through the umbilical port. The gallbladder is passed off table as specimen. The gallbladder fossa was irrigated with saline and hemostasis obtained. Liver biopsy was obtained with a Temu device through a separate small incision in the skin made with a 15 blade scalpel. Liver biopsy was sent to pathology. Erbe was used for hemostasis. There is no evidence of bleeding from the gallbladder fossa or cystic artery leakage of bile from the cystic duct stump. Secondary trochars removed under direct vision. No bleeding was noted the trocar sites. The laparoscope was withdrawn and umbilical trocar removed. The abdomen was allowed to collapse. The fascia of the 12 mm trocar was closed with a [id number] 0 Vicryl suture. The skin was closed with sutures of 4-0 Monocryl and Steri-Strips. The patient was extubated. The patient tolerated procedure well and was taken to the postanesthesia care unit in stable condition. Surgical Findings: See operative report Complications Complications: No
--- NOTE | 2025-03-21 09:23 | EX.PCM.DISCH ---
Discharge Instructions Diet Discharge Diet: Light diet - advance as tolerated Activity Discharge Activity: May Not Drive (while taking narcotic pain medications.) May shower in (days): 1 Lifting Restrictions: no lifting >20 lbs x 2 wks, no strenuous exercise for 4 wks Dressing / Incision Call your doctor if your incision/area has: Continuous Slow Oozing, Sudden Increased Bleeding, Increased Pain/ Swelling, Increased Redness, Foul Smelling Discharge and Swelling at the incision site Call your doctor if you observe: Fever of 101 or Higher Remove Dressing in: 2 days Cleanse incision/area with: Soap & Water Additional Dressing/Incision Instructions:: Steri-Strips will fall off in 7 to 10 days, if they do not fall off okay to remove after 10 days. Follow Up Care Please Follow Up With: Anju Torres MD When: Call the office for a follow-up appointment 2 weeks; after 5 PM and on the weekends call [phone] with any concerns. Test Results: Test results from this visit will be discussed in further detail at your follow-up appointment, if applicable. Discharge Plan Admission Attending Provider: Anju Torres Primary Care Provider: Carlos Chris Chi Instructions Additional Instructions / Restrictions: Okay to take ibuprofen 400-600 mg PO q6hr PRN and Tylenol 650 to 1000 mg p.o. every 6 hours as needed along with the oxycodone. Take all pain meds with food. Oxycodone can cause constipation recommend taking daily stool softener (i.e. Colace/docusate) while taking the pain meds. Recommend starting some MiraLAX in 1 to 2 days if no bowel movement. If still no bowel movement the following day recommend taking additional MiraLAX versus magnesium citrate half the bottle and waiting 4-6 hours if still no results take the other half the bottle. Print Language: Amharic Discharge Orders/Prescriptions Prescriptions: New oxycodone 5 mg capsule 5 mg PO Q6H PRN (Reason: pain) 3 Days Qty: 10 0RF Continued rosuvastatin [Crestor] 40 mg tablet 40 mg PO DAILY Qty: 30 0RF alprazolam [Xanax] 0.5 mg tablet 0.5 mg PO QHS PRN (Reason: Anxiety) vitamin E (dl, acetate) 180 mg (400 unit) capsule 180 mg PO QDAY allopurinol 100 mg Tablet 100 mg PO DAILY B12 5,000-100 mcg Lozenge 1 sona SUBLINGUAL DAILY Flintstones Complete Tablet,Chewable 2 tab PO DAILY calcium citrate malate-vit D3 1 ea PO/SL DAILY vilazodone 10 mg tablet 20 mg PO QHS estradiol 0.075 mg/24 hr patch weekly 1 patch transdermal TH levothyroxine 137 mcg tablet 137 mcg PO DAILY albuterol sulfate 90 mcg/actuation HFA aerosol inhaler 2 puff inhalation Q4H PRN (Reason: shortness of breath or wheezing) Qty: 1 6RF Rx Instructions: administer with spacer Referrals / Follow Up: Carlos Chris Chi, MD [Primary Care Provider] - Disposition Disposition (needs filled in before D/C Order can be placed): Home, Self Care
--- NOTE | 2025-03-21 09:39 | PCM.POST.ANE ---
Anesthesia: Postop Eval I Current Vital Signs Temperature: 97.5 F Pulse Rate: 81 Blood Pressure: 134/97 Respiratory Rate: 16 Pulse Ox: 100 Oxygen Delivery Method: Room Air Assessment Airway patent: Yes Spontaneous unlabored respirations: Yes Mental status: Awake and Calm nausea: No Vomiting: No Anesthesia Complication: No Fluid Hydration Crystalloid volume administer (ml): 900 Total IV fluid infused: 900 Progress Note Anesthesia document: Postop Eval 1 completed: Yes
--- NOTE | 2025-03-21 10:59 | POSTOPAN2_ITS ---
Anesthesia Postop Eval I Sum Postop Eval Completion status Anesthesia document: Postop Eval 1 completed: Yes Anesthesia Postop Eval I Summary Anesthesia Postop Eval I Summary: Anesthesia Postop Eval I: Assessment Summary Airway patent Yes 03/21/25 09:40 LINE DEPARTMENT SUPERVISOR.[email or web address] Spontaneous unlabored Yes 03/21/25 09:40 LINE DEPARTMENT SUPERVISOR.[email or web address] respirations Mental status Awake,Calm 03/21/25 09:40 LINE DEPARTMENT SUPERVISOR.[email or web address] nausea No 03/21/25 09:40 LINE DEPARTMENT SUPERVISOR.GDOTT Vomiting No 03/21/25 09:40 LINE DEPARTMENT SUPERVISOR.GDOTT Anesthesia Postop Eval I: Fluid Summary Crystalloid volume administer 900 03/21/25 09:40 LINE DEPARTMENT SUPERVISOR.GDOTT (ml) Colloids volume administered ( ml) Blood Product volume administered (ml) Total IV fluid infused 900 03/21/25 09:40 LINE DEPARTMENT SUPERVISOR.GDOTT Anesthesia Postop Eval I: Summary Notes Anesthesia Complication No 03/21/25 09:40 LINE DEPARTMENT SUPERVISOR.GDOTT Anesthesia Complication Comment: Post-operative progress note Anesthesia: Postop Eval II Evaluation Mental status: Awake Pain Level: 2 nausea: No Vomiting: No
--- NOTE | 2025-03-21 10:59 | PCM.POSTANE2 ---
Anesthesia Postop Eval I Sum Postop Eval Completion status Anesthesia document: Postop Eval 1 completed: Yes Anesthesia Postop Eval I Summary Anesthesia Postop Eval I Summary: Anesthesia Postop Eval I: Assessment Summary Airway patent Yes 03/21/25 09:40 INSTRUMENTAL [email or web address].[email or web address] Spontaneous unlabored Yes 03/21/25 09:40 INSTRUMENTAL TEACHER.GDOTT respirations Mental status Awake,Calm 03/21/25 09:40 INSTRUMENTAL TEACHER.GDOTT nausea No 03/21/25 09:40 INSTRUMENTAL TEACHER.GDOTT Vomiting No 03/21/25 09:40 INSTRUMENTAL TEACHER.GDOTT Anesthesia Postop Eval I: Fluid Summary Crystalloid volume administer 900 03/21/25 09:40 INSTRUMENTAL TEACHER.GDOTT (ml) Colloids volume administered ( ml) Blood Product volume administered (ml) Total IV fluid infused 900 03/21/25 09:40 INSTRUMENTAL TEACHER.GDOTT Anesthesia Postop Eval I: Summary Notes Anesthesia Complication No 03/21/25 09:40 INSTRUMENTAL TEACHER.GDOTT Anesthesia Complication Comment: Post-operative progress note Anesthesia: Postop Eval II Evaluation Mental status: Awake Pain Level: 2 nausea: No Vomiting: No
[2025-03-21] MEDS: Ketorolac 15 MG/ML Vial IV (11:20)
[2025-03-21] MEDS: Acetaminophen 500 MG Tablet 1000 MG PO (11:54)
[2025-03-21] MEDS: oxyCODONE 5 MG Tablet PO (11:54)
[2025-03-21 13:50] LABS: Pathology Sent to OSU SEE PATHOLOGY REPORT
== END 2025-03-21 13:05 | disposition home or self-care (01) ==
LOC: SDC 06:22 → AC 06:23
PROVIDERS: Student in an Organized Health Care Education/Training Program; PCP Family Medicine Geriatric Medicine; Referring Provider Surgery; Visit Provider Surgery
PROC: (CPT 47610; principal; 2025-03-21 07:40)
DX: K81.1 Chronic cholecystitis (principal); N18.30 Chronic kidney disease, stage 3 unspecified; K83.8 Other specified diseases of biliary tract; I12.9 Hypertensive chronic kidney disease with stage 1 through stage 4 chronic kidney disease, or unspecified chronic kidney disease; K76.0 Fatty (change of) liver, not elsewhere classified; I25.10 Atherosclerotic heart disease of native coronary artery without angina pectoris; E78.00 Pure hypercholesterolemia, unspecified; K21.9 Gastro-esophageal reflux disease without esophagitis; Z98.84 Bariatric surgery status; R79.89 Other specified abnormal findings of blood chemistry; E03.9 Hypothyroidism, unspecified; Z79.899 Other long term (current) drug therapy; Z79.890 Hormone replacement therapy; Z90.49 Acquired absence of other specified parts of digestive tract
CPT/HCPCS: 47563; 47000; 00790; 74300; 76000; 80076; 84443; 93005; J2405

== ENCOUNTER → 2025-05-02 | Outpatient (CLI) | payer MEDICAID, SELFPAY ==
[2025-05-02 16:13] LABS: Hematocrit 38.7 % (37-47); Hemoglobin 12.6 g/dL (12.0-15.0); Immature Granulocytes Count 0.020 X10^3/uL (0.0-0.0); Mean Corp Hgb Conc 32.6 g/dL (32-36); Mean Corpuscular Volume 95.3 fL (81-99); Mean Platelet Vol. 10.8 fl (6.2-12.0); NRBC Flagged by Analyzer 0 % (0-5); Platelet Count 259 K/mm3 (150-450); RBC Distribution Width CV 13.4 % (11.6-14.6); RBC Distribution Width SD 47.2 fl (35.1-43.9); Red Blood Count 4.06 M/mm3 (4.2-5.4); White Blood Count 7.9 K/mm3 (4.4-11.0)
[2025-05-02 16:47] LABS: AST(SGOT) 104 U/L (<=31); Alanine Aminotransfer ALT/SGPT 92 U/L (<=34); Albumin, Serum 4.3 g/dL (3.5-5.0); Alkaline Phosphatase 74 U/L (35-104); Anion Gap 11 (5-15); BUN 24 mg/dL (4-19); BUN/Creat Ratio 19.9 RATIO (10-20); Calcium,Total 9.3 mg/dL (7.6-11.0); Carbon Dioxide 26.3 mmol/L (21.0-32.0); Chloride 101 mmol/L (98-108); Globulin 3.6 g/dL (2.2-4.2); Glucose 94 mg/dL (70-99); Potassium 4.3 mmol/L (3.3-5.1)
[2025-05-02 16:48] LABS: CRP < 3.00 mg/L (0.0-3.0)
== END | disposition home or self-care (01) ==
LOC: LAB 15:30
PROVIDERS: PCP Family Medicine Geriatric Medicine; Referring Provider Internal Medicine Gastroenterology; Visit Provider Internal Medicine Gastroenterology
DX: K76.0 Fatty (change of) liver, not elsewhere classified (principal)
CPT/HCPCS: 36415; 80053; 85025; 85652; 86140

== ENCOUNTER → 2025-05-17 | Outpatient (CLI) | payer MEDICAID, SELFPAY ==
--- NOTE | 2025-05-17 16:04 | MRI_ITS ---
PROCEDURE: MRCP ABDOMEN WITHOUT CONTRAST 05/17/2025 REASON FOR EXAM: DILATED BILE DUCTS ON CT SCAN Abdominal pain. Dilated bile ducts seen by CT scanning. Prior cholecystectomy TECHNIQUE: MRCP ABDOMEN WITHOUT CONTRAST 3D Multiplanar and multisequence images were obtained. CONTRAST: 9 COMPARISON: February 27, 2025, March 21, 2025, October 13, 2024, June 19, 2024 FINDINGS: Liver: Non cirrhotic. No mass identified. Biliary: Cholecystectomy. No biliary ductal dilation seen. Common bile duct measures approximately 5 mm. No choledocholithiasis. No mass of the ampulla or pancreatic head. Pancreas: No pancreas divisum. No glandular atrophy. Spleen: Multiple calcified granulomas are seen in the spleen. Adrenals: Normal Kidneys: No mass or collecting system dilation. A small calculus was shown on prior CT of the left upper pole. Peritoneum / Retroperitoneum: No free fluid or mass. Lymph Nodes: None appear enlarged Major Vessels: Normal caliber Bones: Grossly normal Miscellaneous: Postsurgical changes of the proximal stomach. MRI/MRCP Abdomen without Contrast IMPRESSION: 1. Cholecystectomy. Normal appearance of the bile ducts. Reading Location: [id number]
--- NOTE | 2025-05-17 16:04 | MRI_ITS ---
PROCEDURE: MRCP ABDOMEN WITHOUT CONTRAST 05/17/2025 REASON FOR EXAM: DILATED BILE DUCTS ON CT SCAN Abdominal pain. Dilated bile ducts seen by CT scanning. Prior cholecystectomy TECHNIQUE: MRCP ABDOMEN WITHOUT CONTRAST 3D Multiplanar and multisequence images were obtained. CONTRAST: 9 COMPARISON: February 27, 2025, March 21, 2025, October 13, 2024, June 19, 2024 FINDINGS: Liver: Non cirrhotic. No mass identified. Biliary: Cholecystectomy. No biliary ductal dilation seen. Common bile duct measures approximately 5 mm. No choledocholithiasis. No mass of the ampulla or pancreatic head. Pancreas: No pancreas divisum. No glandular atrophy. Spleen: Multiple calcified granulomas are seen in the spleen. Adrenals: Normal Kidneys: No mass or collecting system dilation. A small calculus was shown on prior CT of the left upper pole. Peritoneum / Retroperitoneum: No free fluid or mass. Lymph Nodes: None appear enlarged Major Vessels: Normal caliber Bones: Grossly normal Miscellaneous: Postsurgical changes of the proximal stomach. MRI/MRCP Abdomen without Contrast IMPRESSION: 1. Cholecystectomy. Normal appearance of the bile ducts. Reading Location: [id number]
== END | disposition home or self-care (01) ==
LOC: MRI 16:00
PROVIDERS: PCP Family Medicine Geriatric Medicine; Referring Provider Internal Medicine Gastroenterology; Visit Provider Internal Medicine Gastroenterology
DX: R93.89 Abnormal findings on diagnostic imaging of other specified body structures (principal)
CPT/HCPCS: 74181

== ENCOUNTER → 2025-05-23 | Outpatient (CLI) | payer MEDICAID, SELFPAY ==
[2025-05-23 10:45] LABS: Hematocrit 38.2 % (37-47); Hemoglobin 12.3 g/dL (12.0-15.0); Immature Granulocytes Count 0.020 X10^3/uL (0.0-0.0); Mean Corp Hgb Conc 32.2 g/dL (32-36); Mean Corpuscular Volume 97.2 fL (81-99); Mean Platelet Vol. 11.1 fl (6.2-12.0); NRBC Flagged by Analyzer 0 % (0-5); Platelet Count 248 K/mm3 (150-450); RBC Distribution Width CV 13.0 % (11.6-14.6); RBC Distribution Width SD 46.5 fl (35.1-43.9); Red Blood Count 3.93 M/mm3 (4.2-5.4); White Blood Count 6.5 K/mm3 (4.4-11.0)
[2025-05-23 12:37] LABS: AST(SGOT) 48 U/L (<=31); Alanine Aminotransfer ALT/SGPT 48 U/L (<=34); Albumin, Serum 4.2 g/dL (3.5-5.0); Alkaline Phosphatase 70 U/L (35-104); Anion Gap 13 (5-15); BUN 16 mg/dL (4-19); BUN/Creat Ratio 14.4 RATIO (10-20); Calcium,Total 9.0 mg/dL (7.6-11.0); Carbon Dioxide 24.6 mmol/L (21.0-32.0); Chloride 102 mmol/L (98-108); Globulin 3.0 g/dL (2.2-4.2); Glucose 66 mg/dL (70-99); Potassium 3.8 mmol/L (3.3-5.1)
[2025-05-23 13:04] LABS: Cholesterol 150 mg/dL (<=200); Low Density Lipoprotein Calc. 74 mg/dL; Triglycerides 90 mg/dL; Very Low Density Lipoprotein 18 mg/dL (5-40); cholesterol:hdl ratio screen 2.57
[2025-05-23 17:29] LABS: Xtra Tube Kwok EXTRA TUBE
== END | disposition home or self-care (01) ==
LOC: POLAB3 09:29
PROVIDERS: PCP Family Medicine Geriatric Medicine; Visit Provider Family Medicine Geriatric Medicine
DX: E78.5 Hyperlipidemia, unspecified (principal); E11.65 Type 2 diabetes mellitus with hyperglycemia; I10 Essential (primary) hypertension
CPT/HCPCS: 36415; 80053; 80061; 83036; 84443; 85025

== ENCOUNTER → 2025-08-13 | Outpatient (CLI) | payer MEDICAID, SELFPAY | END | disposition home or self-care (01) | LOC: POLAB3 14:11 | PROVIDERS: PCP Family Medicine Geriatric Medicine; Visit Provider Family Medicine Geriatric Medicine | DX: R06.2 Wheezing (principal) | CPT/HCPCS: 87631 ==

== ENCOUNTER 2025-10-07 16:32 | Emergency (ER) | payer MEDICAID, SELFPAY ==
[2025-10-07 16:34] VITALS: BP 112/80; PULSE 73; RESP 16; TEMP 35.9; O2SAT 100
--- NOTE | 2025-10-07 16:35 | RAD_ITS ---
PROCEDURE: RIGHT HAND MIN 3 VIEWS 10/07/2025 REASON FOR EXAM: INJURY TECHNIQUE: Procedure Code: LUZ MARINA Modality: DX Procedure: HAND MIN 3 VIEWS COMPARISON: None. FINDINGS: No acute fracture or dislocation. Alignment is anatomic. Preserved joint spaces. No aggressive osseous lesion. No marked soft tissue swelling or radiopaque foreign body. RAD/Hand Min 3 Views IMPRESSION: No acute fracture or dislocation. Reading Location: [id number]
--- NOTE | 2025-10-07 19:28 | EX.ED.GENINJ ---
HPI History of Present Illness Chief Complaint: Laceration Informant: patient Narrative Narrative: 50-year-old female presenting to the emergency room with injuries sustained from a crushing injury to the right hand. Patient states that she was assisting in moving a couch when her hand got caught between the wall and the couch. She notes laceration over the dorsum of the hand and pain. 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 Right foot pain Right knee pain Knee pain Stage 3 chronic kidney disease Vitamin D deficiency Postablative hypothyroidism Clostridium difficile infection Wears glasses Pain aggravated by walking Chest pain Obesity Coronary artery calcification Paresthesia Anxiety DDD (degenerative disc disease), thoracic Segmental and somatic dysfunction of thoracic region Osteoarthritis Asthma Depression Hypothyroidism Home Medications ?Medication ?Instructions ?Recorded ?Last Taken ?Type rosuvastatin 40 mg tablet (Crestor) 40 mg PO DAILY #30 tabs 08/07/20 03/20/25 Rx alprazolam 0.5 mg tablet (Xanax) 0.5 mg PO QHS PRN Anxiety 04/06/21 Unknown History allopurinol 100 mg tablet 100 mg PO DAILY 03/10/23 03/20/25 History calcium citrate malate-vit D3 1 ea PO/SL DAILY 03/10/23 03/20/25 History cyanocobalamin (B12)-cobamamide 1 sona sublingual DAILY 03/10/23 03/20/25 History 5,000 mcg-100 mcg sublingual lozenge (B12) pediatric multivitamin no.76 2 tab PO DAILY 03/10/23 03/20/25 History (Flintstones Complete chewable tablet) albuterol sulfate 90 mcg/actuation 2 puff inhalation Q4H PRN 03/29/23 Unknown Rx aerosol inhaler shortness of breath or wheezing #1 device estradiol 0.075 mg/24 hr weekly 1 patch transdermal TH 07/22/23 03/21/25 History transdermal patch vilazodone 10 mg tablet 20 mg PO QHS 07/22/23 03/20/25 History vitamin E (dl, acetate) 180 mg 180 mg PO QDAY 08/22/24 03/20/25 History (400 unit) capsule levothyroxine 137 mcg tablet 137 mcg PO DAILY 10/15/24 03/21/25 05:00 History levothyroxine 125 mcg tablet mcg PO 04/04/25 Unknown History dicyclomine 20 mg tablet 20 mg PO TID PRN abdominal pain 05/02/25 Unknown Rx #90 tabs ursodiol 250 mg tablet 250 mg PO DAILY #90 TABLETS 09/19/25 Unknown Rx Allergy/AdvReac Type Severity Reaction Status Date / Time citalopram Allergy unknown Verified 10/07/25 16:33 codeine Allergy Unknown Verified 10/07/25 16:33 lithium Allergy Unknown Verified 10/07/25 16:33 Family History Mother Diabetes Breast cancer Anemia Depression Hypertension Father Diabetes Heart disease Hypertension CVA (cerebral vascular accident) in his 40'2 from CVA Hyperlipemia Brother Asthma Hypertension CAD (coronary artery disease), Onset Age: 50 coronary stents Sister Depression Seizures Grandmother Diabetes Thyroid disorder Heart disease Grandfather Diabetes Thyroid disorder Heart disease Aunt Heart disease CAD (coronary artery disease) stents Uncle Heart disease CAD (coronary artery disease) stents Other Arthritis Surgical History S/P laparoscopic cholecystectomy History of bunionectomy of right great toe History of cystoscopy History of foot surgery Hx of bilateral salpingo-oophorectomy Bariatric surgery status Hx of colonoscopy Hx of right knee surgery Hx of appendectomy H/O tooth extraction History of appendectomy History of section, classical History of hysterectomy History of eyelid surgery Social History Smoking Status: Never smoker second hand exposure: No alcohol intake: never substance use type: does not use caffeine: Yes frequency: does not exercise ROS ROS ED Constitutional Constitutional ED: Denies chills or weight loss Eyes Eyes: Denies change in vision or diplopia ENT ENT ED: Denies ear pain, rhinorrhea or sore throat Cardiovascular Cardiovascular: Denies chest pain, orthopnea, palpitations or racing heartbeat Respiratory/Chest Respiratory/Chest: Denies cough, dyspnea or orthopnea Gastrointestinal Gastrointestinal: Denies abdominal pain, diarrhea, nausea or vomiting Genitourinary Genitourinary ED: Denies dysuria, hematuria or urinary frequency Musculoskeletal Musculoskeletal: Reports other Details: Right hand pain and laceration ; Denies arthralgias or myalgias Integumentary Denies abscess or rash Neurologic Neurologic: Denies headache(s) or weakness Psychiatric Psychiatric: Denies anxiety, depression, suicidal ideation or suicidal thoughts Endocrine Endocrinology: Denies polydipsia, polyphagia or polyuria Allergic/Immunologic Allergic/Immunologic ED: Denies mouth swelling, tongue swelling or urticaria EXAM Physical Exam Const Vital Signs: 10/07/25 16:34 Temperature 96.7 F L Temperature Source Temporal Pulse Rate 73 Respiratory Rate 16 Blood Pressure 112/80 Blood Pressure Mean 90 Pulse Ox 100 Oxygen Delivery Method Room Air Positive well nourished and well developed General Appearance ED: well developed and NAD HEENT Reports normocephalic, head/scalp atraumatic and moist mucous membranes Eyes PERRL and EOMs intact bilaterally Neck no lymphadenopathy, supple and no JVD Resp normal respiratory effort and clear to auscultation bilaterally Cardio regular rate, regular rhythm and no murmurs GI normal to inspection, nondistended, normoactive bowel sounds and non-tender Palpation: soft Back/Spine no CVA tenderness and normal ROM Extremity Extremity Narrative: Dorsum of the right hand demonstrates no significant deformity no malrotation. There is a 2 cm L-shaped laceration just proximal to the long finger MCP joint. Normal tendon function. Neurovascularly intact. General Extremety ED: Negative for edema General Extremity: Negative for edema Neuro oriented x3 and CN's II-XII intact bilaterally Sensorium / Orientation: alert Motor Exam: strength 5/5 throughout Psych mental status grossly normal Mood & Affect: Negative for depressed or tearful Skin no rashes or lesions noted and no wounds MDM MDM MDM Narrative Medical decision making narrative: Differential diagnosis includes but not limited to fracture contusion laceration neurovascular injury tendon injury My independent interpretation of the plain films of the right hand is no acute fracture. Wound was locally anesthetized using 1% lidocaine irrigated with saline and washed with Shur-Clens. No foreign bodies were seen. No visualization of tendon injury was noted. Tendon function is normal. Wound was closed using a total of 4 simple interrupted 4-0 Ethilon sutures. Wound was dressed with bacitracin and sterile gauze and Telfa. Stitches will need to be removed in 10 days History & Record Review Discussion w/independent historian: Patient Radiography Diagnostic Testing: Clinical Impression(s) from Imaging Studies Hand X-Ray 10/07/25 16:35 IMPRESSION: No acute fracture or dislocation. Reading Location: [facility] Discharge Plan Triage Chief Complaint: Laceration ED Provider: Piter Lomeli Dx/Rx/DC Orders Prescriptions: No Action rosuvastatin [Crestor] 40 mg tablet 40 mg PO DAILY Qty: 30 0RF alprazolam [Xanax] 0.5 mg tablet 0.5 mg PO QHS PRN (Reason: Anxiety) levothyroxine 125 mcg tablet PO vitamin E (dl, acetate) 180 mg (400 unit) capsule 180 mg PO QDAY dicyclomine 20 mg tablet 20 mg PO TID PRN (Reason: abdominal pain) Qty: 90 0RF allopurinol 100 mg Tablet 100 mg PO DAILY B12 5,000-100 mcg Lozenge 1 sona SUBLINGUAL DAILY Flintstones Complete Tablet,Chewable 2 tab PO DAILY calcium citrate malate-vit D3 1 ea PO/SL DAILY vilazodone 10 mg tablet 20 mg PO QHS estradiol 0.075 mg/24 hr patch weekly 1 patch transdermal TH levothyroxine 137 mcg tablet 137 mcg PO DAILY albuterol sulfate 90 mcg/actuation HFA aerosol inhaler 2 puff inhalation Q4H PRN (Reason: shortness of breath or wheezing) Qty: 1 6RF Rx Instructions: administer with spacer ursodiol 250 mg tablet 250 mg PO DAILY Qty: 90 1RF Primary Care Provider: Carlos Chris Chi Referrals: Carlos Chris Chi, MD [Primary Care Provider, Geriatrics] Print Language: Vietnamese
[2025-10-07] MEDS: Lidocaine 1% /Epi 1:100 (20ml) 20 ML Vial INFILT (19:31)
[2025-10-07 19:32] VITALS: BP 112/80; PULSE 59; RESP 16; TEMP 35.9; O2SAT 100
== END 2025-10-07 19:36 | disposition home or self-care (01) ==
LOC: ED 19:33
PROVIDERS: Emergency Provider Emergency Medicine; PCP Family Medicine Geriatric Medicine; Visit Provider Emergency Medicine
DX: S61.411A Laceration without foreign body of right hand, initial encounter (principal); N18.30 Chronic kidney disease, stage 3 unspecified; I25.10 Atherosclerotic heart disease of native coronary artery without angina pectoris; Z90.710 Acquired absence of both cervix and uterus; E78.00 Pure hypercholesterolemia, unspecified; I12.9 Hypertensive chronic kidney disease with stage 1 through stage 4 chronic kidney disease, or unspecified chronic kidney disease; E03.9 Hypothyroidism, unspecified; Z90.49 Acquired absence of other specified parts of digestive tract; W23.1XXA Caught, crushed, jammed, or pinched between stationary objects, initial encounter
CPT/HCPCS: 12001; 73130; 99283